=== PATIENT | male | born 1955 | race Caucasian/White ===

== ENCOUNTER 2025-04-28 08:31 | Emergency (ER) | payer MEDICARE, SELFPAY ==
--- OUTSIDE RECORDS SUMMARY | 2024-08-14 12:20 | XMS_ITS ---
Author Organization [facility] in [place] Address [address] [place] [address] Care Team Providers Care Vice President Compliance Name Role Phone Abebe Stewart MD Primary Care Provider Abebe Nazario [facility] [phone] Encounters Encounter Location Date Provider Diagnosis [facility] Nephrology [place] [address] [place] [address] 08/14/2024 Abebe Tovar Plan Of Treatment No Information Progress Notes * Alberto WALLER LDOB:[birth year] (69 yo M)Acc No.[id number]:08/14/2024 UNLOCKED PROGRESS NOTE Progress Note Patient: Alberto BUSTAMANTE Provider: Anthony Tovar MD :1955 A ge:69 Y S ex:Male Date:08/14/2024 Address:[address] [place], [place] [address] Pcp:Abebe Stewart MD Subjective: * Chief Complaints: * * Medical History: Objective: * Vitals: Assessment: Plan: * Treatment: * * Electronic signature of Abebe Tovar MD, [id number] on 04/28/2025 at 08:46 AM EDT Sign off status: Pending Visit Status: C ANC (Cancelled) * Provider: Anthony Tovar MD Date: 0 08/14/2024 Generated for Printi ng/Faxing/eTransmitting on: 0 04/28/2025 08:46 AM EDT
--- OUTSIDE RECORDS SUMMARY | 2024-11-09 10:15 | XMS_ITS | Continuity of Care Document ---
Author Organization [facility] Address [address] [place] [address] Phone Care Team Providers Care Engineering Program Manager Name Role Phone Guille Laguerre Jr, DO Unavailable Unavailabl e Allergies, Adverse Reactions, Alerts Substance Reaction Status Criticality lisinopril Cough(moderate) Active No Informati on Sulfa (Sulfonamide Antibiotics) Blister of skin AND/OR mucosa(severe) Active No Information Procedures Procedure Date OFFICE/OUTPATIENT VISIT, NEW OFFICE/OUTPATIENT VISIT, EST, [facility] Advance Directives Directive Yes / No Effective Date File Name No Information Encounters Encounter Description Practice Location Reason(s) For Visit Diagnoses Date Provider Providers Copied on Encounter OFFICE/OUTPAT IENT VISIT, [facility] , [address] [place], [address], [place] tel:[phone] VINNIE [place] diplopia (chief complaint) Presence of intraocular lensDiplopiaOther secondary cataract, bilateral Shade Han. [address] [place] [address], [id number] , [place]. tel:[phone] Referring Provider: Guille Jordan, [address] [place] [address], [id number] . tel:[phone] Family History Family Member Type Diagnosis Age At Onset Father Problem Diabetes mellitus Problem No family history of Macular degeneration Brother Problem Diabetes mellitus Problem No family history of Retinal disease Mother Problem Glaucoma Mother Problem Macular degeneration Payers Payer name Insurance type Covered alliance party ID Authoriza tion(s) [employer] Medicare [id number] Social History Type Description Quantity Date Captured Comments Alcohol Use Details Unknown Caffeine Use Details Unknown Tobacco Use Status Current non-smoker Smoking Status Never smoker Non-Smoking Tobacco Use Details : No Details Available : No Details Available Sex Male Chief Complaint And Reason For Visit From encounter dated '11/09/2024 14:15'. diplopia (chief complaint). Description: The 69 year old patient presents for evaluation of diplopia in the right eye. PT states that after he started a new medication; and that same day is when he had the episode. PT was driving when he noticed horizontal diplopia lasting 24 hours. . PT states that when he closed right eye it went away. PT also reports that this medication is not suppose to be taken with ASA, but had taken that day. PT reports that BP was 224/170, from a home machine. Most recent B/P was 130/78 2 days ago PT states that he has also noticed new onset of a large floater in right eye prior to diplopia episode. PT denies any pain but has had headaches recently. PT denies any flashes of light. New medication is for Alzheimer's; PT can not remember name PT currently not experiencing any diplopia Reason For Referral Reason For Referral No Information History Of Present Illness Encounter Date Complaint History Of Prese nt Illness diplopia The 69 year old patient presents for evaluation of diplopia in the right eye. PT states that after he started a new medication; and that same day is when he had the episode. PT was driving when he noticed horizontal diplopia lasting 24 hours. . PT states that when he closed right eye it went away. PT also reports that this medication is not suppose to be taken with ASA, but had taken that day. PT reports that BP was 224/170, from a home machine. Most recent B/P was 130/78 2 days ago PT states that he has also noticed new onset of a large floater in right eye prior to diplopia episode. PT denies any pain but has had headaches recently. PT denies any flashes of light. New medication is for Alzheimer's; PT can not remember name PT currently not experiencing any diplopia Functional Status Date Functional Assessmen t No Information Instructions Date Instruction Additional Infor mation Impression/Plan Assessments Type Assessment Date assessment Presence of intraocular lens Oct assessment Diplopia assessment Other secondary cataract, bilate ral Patient Care Teams Name Effective Dates (start - stop) Status Members No Information
--- OUTSIDE RECORDS SUMMARY | 2025-04-16 07:00 | XMS_ITS | Encounter Summary ---
Author Organization [facility] Address [address] [place] [address] Care Team Providers Care Downstream Biomanufacturing Technician Name Role Phone Abebe Stewart MD Primary Care Provider [phone] Abebe Tan MD Unavailable Encounter Details Date Type Department Care Team (Late st Contact Info) Description 04/16/2025 7:00 AM EDT Lab [facility] Kidney Transplant Draw Station [address] [place] [id number] Encounter for aftercare following kidney transplant; Transplanted kidney; Encounter for long-term (current) use of medications; Hypocalcemia; Hypokalemia Social History Tobacco Use Types Packs/Day Years Used Date Smoking Tobacco: Never Smokeless Tobacco: Never Alcohol Use Standard Drinks/Week Comments Yes 0 (1 standard drink = 0.6 oz pur e alcohol) rare [facility] Utilities Answer Date Recorded In the past 12 months has [facility] [place], gas, oil, or water [place] threatened to shut off services in your home? No 04/05/2025 Humiliation, Afraid, Rape, and Kick questionnair e Answer Date Recorded Within the last year, have y ou been afraid of your partner or ex-partner? No 04/05/2025 Within the last year, have y ou been humiliated or emotionally abused in other ways by your partner or ex-partner? No Within the last year, have y ou been kicked, hit, slapped, or otherwise physically hurt by your partner or ex-partner? No 04/05/2025 Within the last year, have y ou been raped or forced to have any kind of sexual activity by your partner or ex-partner? No 04/05/2025 Social Connection and Isolat ion Panel [NHANES] Answer Date Recorded In a typical week, how many times do you talk on the phone with family, friends, or neighbors? More than three times a week 04/05/2025 How often do you get togethe r with friends or relatives? More than three times a week 04/05/2025 How often do you attend chur ch or restoration services? Never 04/05/2025 Do you belong to any clubs o r organizations such as episcopalian groups, unions, fraternal or athletic groups, or school groups? No 04/05/2025 How often do you attend meet ings of the clubs or organizations you belong to? Never 04/05/2025 Are you , , di vorced, , never , or living with a partner? 04/05/2025 AUDIT-C Answer Date Recorded Q1: How often do you have a drink containing alcohol? Never 04/05/2025 Q2: How many drinks containi ng alcohol do you have on a typical day when you are drinking? Patient does not drink Q3: How often do you have si x or more drinks on one occasion? Never 04/05/2025 Overall Financial Resource Strain (CARDIA) Answe r Date Recorded How hard is it for you to pa y for the very basics like food, housing, medical care, and heating? Not hard at all 04/05/2025 PHQ-2 Answer Date Recorded Patient Health Questionnaire-2 Score 0 04/20/2025 [facility] of Occupat ional Health - Occupational Stress Questionnaire Answer Date Recorded Do you feel stress - tense, restless, nervous, or anxious, or unable to sleep at night because your mind is troubled all the time - these days? Only a little 04/05/2025 Transportation Answer Date Recorded In the past 12 months, has l ack of transportation kept you from medical appointments or from getting medications? No 10/2024 In the past 12 months, has l ack of transportation kept you from meetings, work, or from getting things needed for daily living? No 04/05/2025 Housing Stability Vital Sign Answer Sonu e Recorded In the last 12 months, was t here a time when you were not able to pay the mortgage or rent on time? No 04/05/2025 In the past 12 months, how m any times have you moved where you were living? 0 04/05/2025 At any time in the past 12 m [facility], were you homeless or living in a mcc (including now)? No 04/05/2025 Hunger Vital Sign Answer Date Recorded Within the past 12 months, y ou worried that your food would run out before you got the money to buy more. Never true 04/05/20 25 Within the past 12 months, t he food you bought just didn't last and you didn't have money to get more. Never true 04/05/2025 Sex and Gender Information Value Date Recorded Sex Assigned at Male 09/21/2024 6:43 AM EST Legal Sex Male 12:45 AM EDT Gender Identity Male 09/21/2024 7:43 AM EST Sexual Orientation Heterosexual or Straight 09/03 7:43 AM EST documented as of this encounter Functional Status documented as of this encounter Plan of Treatment Upcoming Encounters Date Type Department Care Team (Late st Contact Info) Description 04/30/2025 9:00 AM EDT Follow-Up [facility] Transplant [address] [place] [phone] [place] [address] 04/30/2025 9:15 AM EDT Appointment [facility] 2A [place] [address] 05/10/2025 1:00 PM EDT Procedure Visit [facility] Urology [address] [place] [phone] Abebe [place] [address] 05/10/2025 1:30 PM EDT Appointment [facility] 2A [place] [address] documented as of this encounter Procedures Procedure Name Priority Date/Time Associated Diagnosis Comments CBC WITH AUTO DIFFERENTIAL Routine 04/16/2025 7:45 AM EDT Encounter for aftercare following kidney transplant Transplanted kidney Encounter for long-term (current) use of medications TACROLIMUS LEVEL Routine 04/16/2025 7:45 AM EDT Encounter for aftercare following kidney transplant Transplanted kidney Encounter for long-term (current) use of medications VITAMIN D 25 HYDROXY Routine 04/16/2025 7:45 AM EDT Encounter for aftercare following kidney transplant Hypocalcemia Hypokalemia CBC AND DIFFERENTIAL Routine 04/16/2025 7:45 AM EDT Encounter for aftercare following kidney transplant Transplanted kidney Encounter for long-term (current) use of medications URIC ACID Routine 04/16/2025 7:45 AM EDT Encounter for aftercare following kidney transplant Transplanted kidney Encounter for long-term (current) use of medications PHOSPHORUS Routine 04/16/2025 7:45 AM EDT Encounter for aftercare following kidney transplant Transplanted kidney Encounter for long-term (current) use of medications MAGNESIUM Routine 04/16/2025 7:45 AM EDT Encounter for aftercare following kidney transplant Transplanted kidney Encounter for long-term (current) use of medications BILIRUBIN, DIRECT Routine 04/16/2025 7:4 5 AM EDT Encounter for aftercare following kidney transplant Transplanted kidney Encounter for long-term (current) use of medications COMPREHENSIVE METABOLIC PANEL Routine 04/16/2025 7:45 AM EDT Encounter for aftercare following kidney transplant Transplanted kidney Encounter for long-term (current) use of medications documented in this encounter Results * Bilirubin, direct (04/16/2025 7:45 AM EDT) Bilirubin, Direct 0.2 0 - 0.2 mg/dL 04/16/2025 9:16 AM EDT [facility] ([facility]) Blood Venous blood specimen / Unknown Venipuncture / Unknown 04/16/2025 7:45 AM EDT 04/16/2025 8:08 AM EDT us Grazyna Briseno [facility] LAB BLOOD ORDERABLES Final Result [facility] ([facility]) [address] [place] [address] * (ABNORMAL) CBC auto differential (04/16/2025 7:45 AM EDT) Auto WBC 11.41(H) 4.00 - 10.60 10*3/uL 04/16/2025 8:14 AM EDT [facility] ([facility]) RBC 2.53(L) 4.20 - 5.70 10*6/uL 04/16/2025 8:14 AM EDT [facility] ([facility]) Hemoglobin 8.0(L) 13.0 - 17.0 g/dL 04/16/2025 8:14 AM EDT [facility] ([facility]) Hematocrit 24.4(L) 39.0 - 50.0 % 04/16/2025 8:14 AM EDT [facility] ([facility]) MCV 96.4 82.0 - 98.0 fL 04/16/2025 8:14 AM EDT [facility] ([facility]) MCH 31.6 27.0 - 33.0 pg 04/16/2025 8:14 AM EDT [facility] ([facility]) MCHC 32.8 32.0 - 35.0 g/dL 04/16/2025 8:14 AM EDT [facility] ([facility]) RDW 16.6(H) 11.5 - 15.0 % 04/16/2025 8:14 AM EDT [facility] ([facility]) Neutrophils % 81.0(H) 40.0 - 72.0 % 04/16/2025 8:14 AM EDT [facility] ([facility]) Lymphocytes % 12.1(L) 20.0 - 45.0 % 04/16/2025 8:14 AM EDT [facility] ([facility]) Monocytes % 4.7(L) 5.0 - 12.0 % 04/16/2025 8:14 AM EDT [facility] ([facility]) Eosinophils % 0.8 0.0 - 6.0 % 04/16/2025 8:14 AM EDT [facility] ([facility]) Basophils % 0.6 0.0 - 1.0 % 04/16/2025 8:14 AM EDT [facility] ([facility]) Neutrophils Absolute 9.24(H) 1.60 - 7.60 10*3/uL 04/16/2025 8:14 AM EDT [facility] ([facility]) Lymphocytes Absolute 1.38 1.20 - 4.00 10*3/uL 04/16/2025 8:14 AM EDT [facility] ([facility]) Monocytes Absolute 0.54 0.10 - 1.00 10*3/uL 04/16/2025 8:14 AM EDT [facility] ([facility]) Eosinophils Absolute 0.09 0.00 - 0.50 10*3/uL 04/16/2025 8:14 AM EDT [facility] ([facility]) Basophils Absolute 0.07 0.00 - 0.20 10*3/uL 04/16/2025 8:14 AM EDT [facility] ([facility]) Platelets 152 150 - 400 10*3/uL 04/16/2025 8:14 AM EDT [facility] ([facility]) nRBC % 0.0 0 % 04/16/2025 8:14 AM EDT [facility] ([facility]) Immature Granulocytes % 0.8 0.0 - 1.0 % 04/16/2025 8:14 AM EDT [facility] ([facility]) Immature Granulocytes Absolute 0.09 0.00 - 0.20 10*3/uL 04/16/2025 8:14 AM EDT [facility] ([facility]) Blood Venous blood specimen / Unknown Venipuncture / Unknown 04/16/2025 7:45 AM EDT 04/16/2025 8:08 AM EDT us Grazyna Briseno [facility] LAB BLOOD ORDERABLES Final Result [facility] ([facility]) [address] [place] [id number] * (ABNORMAL) Vitamin D 25 hydroxy (04/16/2025 7:45 AM EDT) Pathologist [facility] Vit D, 25-Hydroxy 23.3(L) 30.0 - 80.0 ng/mL 04/16/2025 10:20 AM EDT [facility] ([facility]) Comment:>80.0 Toxicity possi ble Blood Venous blood specimen / Unknown Venipuncture / Unknown 04/16/2025 7:45 AM EDT 04/16/2025 8:08 AM EDT us Wendy Lomeli MD LAB BLOOD ORDERABLES Final Resul t Performing Organization Address City/[facility]/ZIP Co de Phone Number [facility] ([facility]) [address] [place] [id number] * (ABNORMAL) Tacrolimus level (04/16/2025 7:45 AM EDT) [facility] Tacrolimus Lvl 4.8(L) 5.0 - 20.0 ng/mL 04/16/2025 12:26 PM EDT [facility] ([facility]) Comment:The CM LABELLING MACHINE OPERATOR Tacrolimus assay is a delayed one-step immunoassay for the quantitative determination of tacrolimus in human whole blood using the chemiluminescent microparticle immunoassay (CMIA) technology with flexible assay protocols, referred to as Chemiflex. Blood Venous blood specimen / Unknown Venipuncture / Unknown 04/16/2025 7:45 AM EDT 04/16/2025 8:08 AM EDT us Grazyna Briseno CNP LAB BLOOD ORDERABLES Final Result [facility]) [address] [place] [id number] * Uric acid (04/16/2025 7:45 AM EDT) [facility] Uric Acid 7.6 4.4 - 7.6 mg/dL 04/16/2025 9:39 AM EDT [facility] ([facility]) Blood Venous blood specimen / Unknown Venipuncture / Unknown 04/16/2025 7:45 AM EDT 04/16/2025 8:08 AM EDT Grazyna Finn [facility] LAB BLOOD ORDERABLES Final Result [facility]) [address] [place] [address] * Phosphorus (04/16/2025 7:45 AM EDT) Phosphorus 3.6 2.5 - 5.0 mg/dL 04/16/2025 9:16 AM EDT [facility] ([facility]) Blood Venous blood specimen / Unknown Venipuncture / Unknown 04/16/2025 7:45 AM EDT 04/16/2025 8:08 AM EDT Grazyna Finn CNP LAB BLOOD ORDERABLES Final Result Performing Organization Address City/[facility]/ZIP Co de Phone Number [facility]) [address] [place] [address] * (ABNORMAL) Magnesium (04/16/2025 7:45 AM EDT) Magnesium 1.8(L) 1.9 - 2.7 mg/dL 04/16/2025 9:16 AM EDT [facility]) Blood Venous blood specimen / Unknown Venipuncture / Unknown 04/16/2025 7:45 AM EDT 04/16/2025 8:08 AM EDT Grazyna Finn CNP LAB BLOOD ORDERABLES Final Result [facility] ([facility]) [address] [place] [address] * (ABNORMAL) Comprehensive metabolic panel (04/16/2025 7:45 AM EDT) Sodium 138 136 - 145 mmol/L 04/16/2025 9:16 AM [facility] ([facility]) Potassium 3.5 3.5 - 5.1 mmol/L 04/16/2025 9:16 AM [facility] ([facility]) Chloride 108(H) 98 - 107 mmol/L 04/16/2025 9:16 AM [facility] ([facility]) CO2 22 21 - 31 mmol/L 04/16/2025 9:16 AM [facility] ([facility]) Anion Gap 12 7 - 20 mmol/L 04/16/2025 9:16 AM [facility] ([facility]) BUN 35(H) 7 - 25 mg/dL 04/16/2025 9:16 AM [facility] ([facility]) Creatinine 2.06(H) 0.70 - 1.30 mg/dL 04/16/2025 9:16 AM [facility] ([facility]) BUN/Creatinine Ratio 17.0 04/02 9:16 AM [facility] ([facility]) Glucose 122(H) 70 - 100 mg/dL 04/16/2025 9:16 AM [facility] ([facility]) Calcium 7.6(L) 8.6 - 10.3 mg/dL 04/16/2025 9:16 AM [facility] ([facility]) AST 16 13 - 39 U/L 04/16/2025 9:16 AM [facility] ([facility]) ALT (SGPT) 13 7 - 52 U/L 04/16/2025 9:16 AM [facility] ([facility]) Alkaline Phosphatase 81 34 - 104 U/L 04/16/2025 9:16 AM [facility] ([facility]) Total Protein 5.4(L) 6.0 - 8.3 g/dL 04/16/2025 9:16 AM [facility] ([facility]) Albumin 3.4(L) 3.5 - 5.7 g/dL 04/16/2025 9:16 AM [facility] ([facility]) Total Bilirubin 0.7 0.3 - 1.0 mg/dL 04/16/2025 9:16 AM EDT [facility] ([facility]) eGFR 34.0(L) >60.0 mL/min/1. 73m*2 04/16/2025 9:16 AM EDT [facility] ([facility]) Comment:The [facility] s estimated glomerular filtration rate (eGFR) will no longer include consideration of race in its calculation. The [employer] s eGFR Task Force developed new recommendations for the estimation of the glomerular filtration rate in the [place] They recommend immediate implementation of the new equation refit without the race variable in all laboratories because the calculation does not include race. In addition to not including race in the calculation and reporting, it included diversity in its development, and has acceptable performance characteristics and potential consequences that do not disproportionately affect any one group of individuals. Blood Venous blood specimen / Unknown Venipuncture / Unknown 04/16/2025 7:45 AM EDT 04/16/2025 8:08 AM EDT Grzayna Briseno [facility] LAB BLOOD ORDERABLES Final Result [facility] ([facility]) [address] [place] [address] documented in this encounter Visit Diagnoses Diagnosis Encounter for aftercare following kidney transplant Transplanted kidney Kidney replaced by transplant Encounter for long-term (current) use of medications Encounter for long-term (current) use of other medications Hypocalcemia Hypokalemia Hypopotassemia documented in this encounter Care Teams Downstream Biomanufacturing Technician Relationship Specialty Start Date End Date Abebe Stewart MD [address] [place] [address], [address] [place] [address] PCP - General Internal Medicine 09/21/24 Abebe Tan MD [address] [place] [id number] Consulting Physician Urology 04/07/25 documented as of this encounter
--- OUTSIDE RECORDS SUMMARY | 2025-04-16 09:00 | XMS_ITS | Encounter Summary ---
Author Organization [facility] Address [address] [place] [address] Care Team Providers Care Signal Engineer Name Role Phone Abebe Stewart MD Primary Care Provider [phone] Abebe Tan MD Unavailable Reason for Visit * Reason Comments Kidney Follow-up Encounter Details Date Type Department Care Team (Late st Contact Info) Description 04/16/2025 9:00 AM EDT Follow[facility] [address] [place] [address] Jayjay Robin MD [address] [place] [address] Immunosuppression (Primary Dx); Encounter for aftercare following kidney transplant; Primary hypertension; Benign prostatic hyperplasia with urinary retention; Diverticulitis; Anemia in chronic kidney disease, unspecified CKD stage; Hypophosphatemia; Bilateral lower extremity edema; Hypocalcemia; Hypomagnesemia; Diarrhea, unspecified type Social History Tobacco Use Types Packs/Day Years Used Date Smoking Tobacco: Never Smokeless Tobacco: Never Alcohol Use Standard Drinks/Week Comments Yes 0 (1 standard drink = 0.6 oz pur e alcohol) rare [facility] Utilities Answer Date Recorded In the past 12 months has e [place], gas, oil, or water [employer] threatened to shut off services in your [...] often do you attend chur ch or worship services? Never 04/05/2025 Do you belong to any clubs o r organizations such as yazdanism groups, unions, fraternal or athletic groups, or [...] Date Recorded Patient Health Questionnaire-2 Score 0 04/16/2025 [facility] of Occupat ional Health - Occupational Stress [...] any time in the past 12 m [facility], were you homeless or living in a intermediate (including now)? No 04/05/2025 Hunger Vital Sign [...] AM EST documented as of this encounter Last Filed Vital Signs Vital Sign Reading Time Taken Comments Blood Pressure 142/72 04/16/2025 8:08 AM EDT Pulse 66 04/16/2025 8:08 AM EDT Temperature 36.3 C (97.4 F) 04/16/2025 8:08 AM EDT Respiratory Rate 16 04/16/2025 8:08 AM EDT Oxygen Saturation - - Inhaled Oxygen Concentration - - Weight 88.1 kg (194 lb 4.8 oz) 04/16/2025 8:08 A M EDT Height 185.4 cm (6' 1 ) 04/16/2025 8:08 AM EDT Body Mass Index 25.63 04/16/2025 8:08 AM EDT documented in this encounter Functional Status documented as of this encounter Patient Instructions * Patient Instructions* Zahra Rhoades RN - 04/16/2025 9:00 AM EDT Do NOT follow instructions on Envarsus (tacrolimus XR) bottle. Always follow what the transplant clinic verbally tells you to take.Wait until notified by phone or voicemail of dosing instructions. Medication Changes Increase Cefopdomime to 200 mg twice a day Decrease K Phos (Sodium Phos Di) to once a day Start Bumex 2 mg daily Start taking Magnesium Glycinate 200 mg twice a day. Start Tums 2 tablets twice a day Start Finesteride 5 mg daily MEDICAL SERVICES MANAGER next week for self catheterization teaching. Labs every week Follow up labs and see Nephrology this Friday 04/[address] Robin on Monday 04/23. documented in this encounter Progress Notes * Jayjay Robin MD - 04/16/2025 9:00 AM EDT Images from the original note were not included. 04/16/2025 Chief Complaint Patient presents with Kidney Follow-up PCP: Abebe Stewart MD Txp Referring: Shereen Stephens Preferred Pharmacy: [facility] [id number] - [place], [place] - [address] [facility] [address] [facility] [id number] [facility] [place] - [address] [place] [address] [place] [address] [facility] [address] [facility] [place] [phone] [address] Organ: Kidney Subjective Visit Vitals BP 142/72 (BP Location: Left arm, Patient Position: Sitting) Pulse 66 Temp 36.3 ??C (97.4 ??F) (Oral) Resp 16 Ht 1.854 m (6' 1 ) Wt 88.1 kg (194 lb 4.8 oz) BMI 25.63 kg/m?? Smoking Status Never BSA 2.13 m?? Allergies[1] SHELLFISH AMLODIPINE Immunization History Administered Date(s) Administered Influenza, High Dose Seasonal, Preservative Free 04/06/2024 Influenza, High-dose Seasonal, Quadrivalent, Preservative Free 07/15/2023 Influenza, injectable, quadrivalent, preservative free 07/01/2018 Moderna 12 YR UP Vaccine BiValent Booster 10/03/2020, 10/31/2020 Moderna Covid-19 vaccine, 12&up 07/15/2023, 04/06/2024 Pfizer Covid-19 Vaccine, 12&up, Fall 2022-10/07/2024 Pneumococcal Conjugate PCV 13 08/27/2015 Pneumococcal Conjugate PCV 20 07/15/2023 Pneumococcal Polysaccharide PPV23 09/19/2010 RSV, Adult, Bivalent 09/24/2023 Zoster, Recombinant 07/15/2023, 09/24/2023 Problem List[2] Family History[3] Social History[4] Medical History[5] Surgical History[6] Travel Screening No screening recorded since 04/12/25 1253 Travel History Travel since 03/13/25 No documented travel since 03/13/25 Patient Health Questionnaire-9 Score: 0 HPI HPI Alberto Waller is a 69 y.o. male who had End-stage renal disease secondary to hypertensive nephrosclerosis who underwent donor Kidney transplant to the right iliac fossa on 03/31/2025 (Kidney). He had fair urine output postoperatively and did not require dialysis following transplant. Hedid not have delayed graft function. Patient not previously on dialysis. Patient [facility] for a follow-up visit. Patient reports making about 7657-2866 mL of urine per day. Drain has been removed. He was readmitted for diverticulitis and urinary retention, has a rashid catheter in place, and on oral antibiotics. Abdominal pain resolved. Review of Systems Constitutional: Negative for chills and fever. HENT: Negative for rhinorrhea and sore throat. Eyes: Negative for visual disturbance. Respiratory: Negative for cough and shortness of breath. Cardiovascular: Negative for chest pain, palpitations and leg swelling. Gastrointestinal: Positive for diarrhea. Negative for abdominal distention, abdominal pain, constipation, nausea and vomiting. Genitourinary: Negative for dysuria. Musculoskeletal: Negative for arthralgias. Skin: Negative for rash. Allergic/Immunologic: Positive for immunocompromised state. Neurological: Negative for dizziness and tremors. Hematological: Negative for adenopathy. Psychiatric/Behavioral: Negative for confusion. Objective Physical Exam Constitutional: Appearance: Normal appearance. HENT: Head: Normocephalic and atraumatic. Nose: Nose normal. Mouth/Throat: Mouth: Mucous membranes are moist. Eyes: Extraocular Movements: Extraocular movements intact. Cardiovascular: Rate and Rhythm: Normal rate and regular rhythm. Pulmonary: Effort: Pulmonary effort is normal. Abdominal: General: There is no distension. Palpations: Abdomen is soft. Tenderness: There is no abdominal tenderness. Comments: RLQ incision c/d/I, no cellulitis/hernia, rashid in place Musculoskeletal: Cervical back: Neck supple. Right lower leg: Edema present. Left lower leg: Edema present. Comments: B/l 1+/2+ pedal edema Skin: Coloration: Skin is not jaundiced. Findings: No rash. Neurological: Mental Status: He is alert and oriented to person, place, and time. Psychiatric: Mood and Affect: Mood normal. Lab Results Component Value Date CREATININE 2.06 (H) 04/16/2025 CREATININE (MG/DL) IN URINE 79.0 04/13/2025 SODIUM 138 04/16/2025 POTASSIUM 3.5 04/16/2025 CHLORIDE 108 (H) 04/16/2025 MAGNESIUM 1.8 (L) 04/16/2025 CALCIUM 7.6 (L) 04/16/2025 HEMATOCRIT 24.4 (L) 04/16/2025 HEMOGLOBIN 8.0 (L) 04/16/2025 HEMOGLOBIN A1C 5.1 04/13/2025 PLATELETS AUTO 152 04/16/2025 TACROLIMUS LVL 21.4 (H) 04/13/2025 Donor ABO: O Donor Labs: CMV: Negative HBC: Negative HCV: Negative Assessment/Plan 69 year old male, 16 days status post donor renal transplant. Patient was not on dialysis prior to transplant. Patient did not have delayed graft function and did not require dialysis post transplant. Admission creatinine was 7.28 and discharge creatinine was 5.12. Today's creatinine 2.06 from 2.1. Admitted 04/05/2025 for GI Bleed/ diverticulitis/ urinary retention: Patient presented with severe abdominal pain and blood per rectum. Initial evaluation reveals a hypertensive, but albeit hemodynamically stable and afebrile patient. Fecal occult blood was positive. Patient was seen resting in bed. Patient states that his pain started as soon as he went home. Pain p rogressively got worse. He started making less urine and noted dark stool and blood in his stool. Denies any chest pain, shortness of breath, difficulty breathing, nausea, vomiting, or subjective fevers or chills. Rashid catheter was placed due to urinary retention. Patient had CT that showed some signs of diverticulitis without abscess formation. Patient was started on ciprofloxacin and flagyl. Myfortic was reduced. Patient did have blood bowel movements for the first couple days of admission. Patient received bowel prep for planned colonoscopy on 04/09. It was later decided to not do colonoscopy given, bloody bowel movements had resolved and hemoglobin remained stable, in the setting of diverticulitis. Patient did develop pulmonary congestion and cough. Was given nebulizers and lasix and showed improvement. Rashid catheter was removed on 04/09 and patient was unable to void. Rashid catheter was replaced on 04/10 due to urinary retention with plans to keep in place until Monday 04/16 at minimum. Leukocytosis improved. Final dose of simulect was held due to infection concerns. Patient was transitioned fromcipro to cephalosporins due to qt prolongation. Patient was discharged on flagyl and cefpodoxime for a total of 14 days. Immunosuppression at discharge: Envarsus 4mg daily, myfortic 360mg twice daily, and prednisone 10mg daily. Patient discharged home in good/stable condition. He will follow up with transplant clinic on 04/13 and continue to follow closely. Patient to have colonoscopy in 6-8 weeks. 04/05/2025 CT abdomen pelvis wo contrast: IMPRESSION: 1. There is fluid surrounding the bladder in the extracranial space of Retzius. Bladder injury cannot be excluded and clinical correlation is advised. 2. Unremarkable noncontrast CT appearance of the right renal transplant with only trace fluid/blood products in the perinephric space. 3. Nonspecific small volume free intraperitoneal fluid. 04/10/2025 US transplanted kidney: IMPRESSION: *No collecting system dilatation. *Simple appearing peritransplant fluid collection measuring 3.0 x 1.3 x 7.4 cm is slightly larger than on previous study likely representing postoperative seroma or hematoma. This is not exerting mass effect upon the underlying transplant kidney. *Small simple renal cyst. BK: 04/03/2025 not detected CMV: not tested DSA: not tested Prospera: not tested Rashid catheter removed on post op day 3. Immunosuppression: For induction patient received simulect, received only one dose, second one was not given due to diverticulitis. For maintenance immunosuppression: Patient was taking Envarsus 4mg daily, held currently since Wednesday (04/13) because of elevated levels. TAC level today is 4.8. Patient told to start 2 mg daily starting tomorrow. Myfortic 360mg BID (lower dose due to diverticulitis and diarrhea), prednisone 10mg daily Immunoprophylaxis: Nystatin 5mL four times daily, bactrim DS MWF, valcyte 450mg QAM CMV status is donor negative / recipient negative EBV status is donor positive/ recipient positive Diverticulitis: Vantin-cefpodoxime 400mg QAM for 14 days, increase dose to bid due to improved creatinine clearance. flagyl 500mg BID for 14 days Pain improved Plan for colonoscopy in 6 weeks per GI Hypertension: coreg 25mg BID, hydralazine 75mg TID, blood pressure is okay. GERD: Protonix 40mg BID due to GI bleed recently, no bleeding currently, does not have reflux symptoms currently Hypophosphatemia: K phos neutral, decrease from 2 to 1 tablets BID Hypomagnesemia: Start Mag glycinate 200 mg bid Hypocalcemia: Tums 2 tabs bid Hypoalbuminemia/ LE edema: Increase protein in diet, start Bumex 2 mg daily Diarrhea : Stopped Colace 10mg BID Glycolax 17g QAM- 14 days, two Bms daily. BPH/ urinary retention: Flomax 0.8mg QAM, rashid catheter in place, went into retention twice. StartFinasteride 5 mg daily. Plan for void trial and CIC teaching next week, if fails, will need TURP. Discussed with Dr. Tan. Drain: Removed 04/07/2025 Stent: Remove in 2 weeks. Follow up: Wednesday with Nephrology, see me next Wednesday. aJyjay Robin MD [1] Allergies Allergen Reactions Shellfish Derived Nausea And Vomiting Vomiting Amlodipine Swelling Leg edema [2] Patient Active Problem List Diagnosis Hypertensive disorder Diverticular disease Vitamin D deficiency Proteinuria Secondary hyperparathyroidism of renal origin Anemia in chronic kidney disease (CKD) History of DVT (deep vein thrombosis) Renal cyst, left Gout Recurrent sinusitis NSAID long-term use CKD (chronic kidney disease) stage 5, GFR less than 15 ml/min (CMS/HCC) Lung nodule seen on imaging study H/O splenectomy Kidney transplanted GI bleed Diverticulitis Encounter for aftercare following kidney transplant [3] Family History Problem Relation Name Age of Onset Heart disease Father Had pacemaker [4] Social History Tobacco Use Smoking status: Never Smokeless tobacco: Never Vaping Use Vaping status: Never Used Substance Use Topics Alcohol use: Yes Comment: rare Drug use: Never [5] Past Medical History: Diagnosis Date Anemia in chronic kidney disease (CKD) CKD (chronic kidney disease) stage 5, GFR less than 15 ml/min (CMS/HCC) Diverticular disease s/p colectomy 2015 Gout History of DVT (deep vein thrombosis) proximal vein left leg (from distal calf to groin, 07/2021, was to be on lifelong warfarin but stopped after 05/2022 GI bleed) Hypertensive disorder Lung nodule seen on imaging study NSAID long-term use h/o Proteinuria Recurrent sinusitis Recurrent sinusitis Renal cyst, left Secondary hyperparathyroidism of renal origin Vitamin D deficiency [6] Past Surgical History: Procedure Laterality Date COLECTOMY PARTIAL / TOTAL 2015 diverticular disease COLONOSCOPY 10/05/2022 Diverticulosis in the sigmoid colon & descending colon. - Three 2-5 mm polyps at the recto-sigmoid colon & at the splenic flexure, removed w a hot snare. Resected & retrieved. (1. Splenicflexure polyp, bx: Tubular adenoma. 2. Splenic flexure polyp, bx: Tubular adenoma. 3. Rectosigmoid colon polyps, bx:Tubular adenomas.- The examination was otherwise normal on direct and retroflexion v iews. COLONOSCOPY 2016 attempted - unable to get past 40 cm SPLENECTOMY, TOTAL documented in this encounter Plan of Treatment Upcoming Encounters Date Type Department Care Team (Late st Contact Info) Description 04/30/2025 9:00 AM EDT Follow-Up [facility] [address] [place] [phone] Jayjay Robin MD [address] [place] [phone] 04/30/2025 9:15 AM EDT Appointment [facility] [address] [place] [phone] 05/10/2025 1:00 PM EDT Procedure Visit [facility] U[facility] [address] [place] [phone] Abebe Tan MD [address] [place] [phone] 05/10/2025 1:30 PM EDT Appointment [facility] [address] [place] [phone] documented as of this encounter Procedures Procedure Name Priority Date/Time Associated Diagnosis Comments URINALYSIS MICROSCOPIC WITH REFLEX CULTURE Routine 04/16/2025 8:46 AM EDT Encounter for aftercare following kidney transplant URINALYSIS WITH REFLEX CULTURE Routine 04/16/2025 8:46 AM EDT Encounter for aftercare following kidney transplant PROTEIN, URINE, RANDOM Routine 04/16/2025 8:46 AM EDT Encounter for aftercare following kidney transplant CREATININE, URINE, RANDOM Routine 04/16/2025 8:46 AM EDT Encounter for aftercare following kidney transplant URINE CULTURE Routine 04/16/2025 8:46 AM EDT Encounter for aftercare following kidney transplant documented in this encounter Results * Urine culture, routine (04/16/2025 8:46 AM EDT) Urine Culture No growth at 48 hours JES 04/18/2025 7:59 AM EDT [facility] ([facility]) Urine Urine specimen obtained by clean catch procedure / Unknown Non-blood Collection / Unknown 04/16/2025 8:46 AM EDT 04/16/2025 10:19 AM EDT Jayjay Robin MD LAB MICROBIOLOGY - GENERAL ORDER TAMEKA Final Result Performing Organization Address City/[facility]/ZIP Co de Phone Number [facility]) [address] [place] [address] * (ABNORMAL) Urinalysis microscopic with reflex culture (04/16/2025 8:46 AM EDT) RBC, Urine >20(A) None Seen, 0-2 /HPF 04/16/2025 10:54 AM EDT [facility] ([facility]) WBC, Urine 3-5(A) None Seen, 0-2 /HPF 04/16/2025 10:54 AM EDT [facility]) Squamous Epithelial, Urine None Seen None Seen, Occasional , Few /LPF 04/16/2025 10:54 AM EDT [facility] ([facility]) Urine Urine specimen obtained by clean catch procedure / Unknown Non-blood Collection / Unknown 04/16/2025 8:46 AM EDT 04/16/2025 10:19 AM EDT us Jayjay Robin MD LAB URINE ORDERABLES Final Resul t [facility]) [address] [place] [address] * (ABNORMAL) Urinalysis with reflex culture (04/16/2025 8:46 AM EDT) Color, Urine Light-Yellow Colorless, Yellow, Light-Yellow 04/16/2025 10:54 AM EDT [facility] ([facility]) Clarity, Urine Clear Clear 04/16/2025 10:54 AM EDT [facility]) pH, Urine 6.5 5.0 - 8.0 pH 04/16/2025 10:54 AM EDT [facility]) Leukocytes, Urine Trace(A) Negative 04/16/2025 10:54 AM EDT [facility]) Nitrite, Urine Negative Negative 04/16/2025 10:54 AM EDT [facility]) Protein, Urine 30(A) Negative mg/dL 04/16/2025 10:54 AM EDT [facility]) Glucose, Urine Normal Normal mg/dL 04/16/2025 10:54 AM EDT [facility] ([facility]) Bilirubin, Urine Negative Negative 04/16/2025 10:54 AM EDT [facility]) Specific Drayden, Urine 1.009(L) 1.010 - 1.030 04/16/2025 10:54 AM EDT [facility]) Ketones, Urine Negative Negative mg/dL 04/16/2025 10:54 AM EDT [facility]) Blood, Urine Trace(A) Negative 04/16/2025 10:54 AM EDT [facility]) Urobilinogen, Urine Normal Normal mg/dL 04/16/2025 10:54 AM EDT [facility]) Urine Urine specimen obtained by clean catch procedure / Unknown Non-blood Collection / Unknown 04/16/2025 8:46 AM EDT 04/16/2025 10:19 AM EDT us Jayjay Robin MD LAB URINE ORDERABLES Final Resul t [facility] ([facility]) [address] [place] [address] * Protein, urine, random (04/16/2025 8:46 AM EDT) Protein, Ur 57.2 mg/dL 04/16/2025 11:36 AM EDT [facility] ([facility]) Comment:There are no establi shed reference values for random urine specimens. Urine Urine specimen obtained by clean catch procedure / Unknown Non-blood Collection / Unknown 04/16/2025 8:46 AM EDT 04/16/2025 10:19 AM EDT Jayjay Robin MD LAB URINE ORDERABLES Final Resul t [facility] ([facility]) [address] [place] [address] * Creatinine, urine, random (04/16/2025 8:46 AM EDT) Creatinine, Ur 48.0 26 - 299 mg/dL 04/16/2025 11:36 AM EDT [facility]) Urine Urine specimen obtained by clean catch procedure / Unknown Non-blood Collection / Unknown 04/16/2025 8:46 AM EDT 04/16/2025 10:19 AM EDT Jayjay Robin MD LAB URINE ORDERABLES Final Resul t Performing Organization Address City/[facility]/ZIP Co de Phone Number [facility]) [address] [place], [place] [id number] documented in this encounter Visit Diagnoses Diagnosis Immunosuppression- Primary Encounter for aftercare following kidney transplant Primary hypertension Unspecified essential hypertension Benign prostatic hyperplasia with urinary retention Diverticulitis Diverticulitis of colon (without mention of hemorrhage) Anemia in chronic kidney disease, unspecified CKD stage Hypophosphatemia Disorders of phosphorus metabolism Bilateral lower extremity edema Hypocalcemia Hypomagnesemia Disorders of magnesium metabolism Diarrhea, unspecified type documented in this encounter Care Teams Signal Engineer Relationship Specialty Start Date End Date Abebe Stewart MD [address] [place] [address], [address] [place] [address] PCP - General Internal Medicine 09/21/24 Abebe Tan MD [address] [facility] [place] [phone] Consulting Physician Urology 04/07/25 documented as of this encounter
--- OUTSIDE RECORDS SUMMARY | 2025-04-20 07:01 | XMS_ITS | Encounter Summary ---
Author Organization [facility] Address [address] [address] Care Team Providers Care Director Enterprise Sales Name Role Phone Abebe Stewart MD Primary Care Provider [phone] Abbee Tan MD Unavailable Reason for Visit * Reason Comments Anemia * Episode Based Medications (Routine) - Authorized Specialty Diagnoses / Procedures Referred By Contac t Referred To Contact Diagnoses Anemia in chronic kidney disease, unspecified CKD stage Encounter for aftercare following kidney transplant Kidney transplanted Jayjay Robin MD [address] [place] [address] Phone: tel: fax: Jayjay Robin MD [address] [place] [address] Phone: tel: fax: Referral ID Status Reason Start Date Expiration Date V isits Requested Visits Authorized [id number] Authorized 04/16/2025 04/16/2026 1 53 Encounter Details Date Type Department Care Team (Latest Contact Info) Description 04/20/2025 7:01 AM EDT - 04/20/2025 11:59 PM EDT Hospital Encounter [facility] 2A Infusion [address] [place] [address] Kidney transplanted (Primary Dx); Anemia in chronic kidney disease, unspecified CKD stage; Encounter for aftercare following kidney transplant Discharge Disposition: Home or Self Care () Social History Tobacco Use Types Packs/Day Years Used Date Smoking Tobacco: Never Smokeless Tobacco: Never Alcohol Use Standard Drinks/Week Comments Yes 0 (1 standard drink = 0.6 oz pur e alcohol) rare [facility] Utilities Answer Date Recorded In the past 12 months has e electric, gas, oil, or water company threatened to shut off services in your [...] week 04/05/2025 How often do you attend [facility] or confucianist services? Never 04/05/2025 Do you belong to any clubs o r organizations such as moravian groups, unions, fraternal or athletic groups, or [...] Recorded Patient Health Questionnaire-2 Score 0 04/20/2025 [facility] of Occupat ional [facility] - Occupational Stress Questionnaire Answer Date [...] were you homeless or living in a fpc (including now)? No 04/05/2025 Hunger Vital Sign [...] Functional Status documented as of this encounter Medications at Time of Discharge bumetanide (Bumex) 1 mg tabletIndications: Encounter for aftercare following kidney transplant,Barry al lower extremity edema Take 1 tablet (1 mg) by mouth in the morning. 30 tablet 04/16/2025 carvedilol (Coreg) 25 mg tablet 25 mg with breakfast and with evening meal. 05/23/2024 finasteride (Proscar) 5 mg tabletIndications: Benign prostatic hyperplasia with urinary retention Take 1 tablet (5 mg) by mouth in the morning. Do not crush, chew, or split. 30 tablet 11 04/16/2025 hydrALAZINE (Apresoline) 100 mg tabletIndications: Primary hypertension Take 1 tablet (100 mg) by mouth three times daily. 90 tablet 11 04/20/2025 mycophenolate (Myfortic) 180 mg EC tabletIndications: Immunosuppressive management encounter following kidney transplant Take 4 tablets (720 mg) by mouth two times daily. 240 tablet 11 04/13/2025 nystatin (Mycostatin) 100,000 unit/mL suspensionIndicati ons:Encounter for aftercare following kidney transplant Take 5 mL (500,000 Units) by mouth four times daily. Swish and swallow 600 mL 4 04/13/2025 sod phos di, mono-K phos mono (K Phos Neutral) tabletIndications: Encounter for aftercare following kidney transplant,Hypopho sphatemia Take 1 tablet by mouth two times daily. 04/16/2025 sulfamethoxazole-t rimethoprim (Bactrim DS) 800-160 mg tabletIndications: Immunosuppressive management encounter following kidney transplant Take 1 tablet by mouth 3 (three) times a week. On Wednesday, Wednesday, and Wednesday 12 tablet 04/13/2025 tacrolimus ER (Envarsus XR) 0.75 mg tablet ERIndications:Immu nosuppressive management encounter following kidney transplant Take 2 tablets (1.5 mg) by mouth in the morning. Script total 8.5 mg daily 60 tablet 04/13/2025 tacrolimus ER (Envarsus XR) 1 mg tablet ERIndications:Immu nosuppressive management encounter following kidney transplant Take 3 tablets (3 mg) by mouth in the morning. Script total 8.5 mg daily 90 tablet 04/13/2025 tacrolimus ER (Envarsus XR) 4 mg tablet ERIndications:Immu nosuppressive management encounter following kidney transplant Take 1 tablet (4 mg) by mouth in the morning. Script total 8.5 mg daily 30 tablet 04/13/2025 tamsulosin (Flomax) 0.4 mg 24 hr capsuleIndications :Urinary retention Take 2 capsules (0.8 mg) by mouth in the morning. 60 capsule 04/12/2025 5 valGANciclovir (Valcyte) 450 mg tabletIndications: Immunosuppressive management encounter following kidney transplant Take 1 tablet (450 mg) by mouth in the morning. As directed. 30 tablet 1 04/13/2025 metroNIDAZOLE (Flagyl) 500 mg tabletIndications: Diverticulitis Take 1 tablet (500 mg) by mouth every 12 (twelve) hours for 18 doses. 18 tablet 04/11/2025 5 calcium carbonate (Tums) 200 mg calcium (500 mg) chewable tabletIndications: Encounter for aftercare following kidney transplant,Hypocal cemia Chew 2 tablets (1,000 mg) two times daily. Without food 120 tablet 11 04/16/2025 5 magnesium glycinate 100 mg magnesium capsuleIndications :Hypomagnesemia Take 3 capsules (300 mg) by mouth two times daily. 180 capsule 11 04/20/2025 5 pantoprazole (ProtoNix) 40 mg EC tabletIndications: Abdominal pain, unspecified abdominal location Take 1 tablet (40 mg) by mouth before breakfast and before evening meal. Do not crush, chew, or split. 60 tablet 04/11/2025 5 predniSONE (Deltasone) 10 mg tabletIndications: Immunosuppressive management encounter following kidney transplant Take 1 tablet (10 mg) by mouth in the morning. 30 tablet 11 04/13/2025 5 documented as of this encounter Miscellaneous Notes * Addendum Note - Alisa Peterson RN - 04/20/2025 8:30 AM EDTEncounter addended by: Alisa Peterson RN on: 04/20/2025 3:44 PM Actions taken: Therapy plan modified documented in this encounter Plan of Treatment Upcoming Encounters Date Type Department Care Team (Late st Contact Info) Description 04/30/2025 9:00 AM EDT Follow-Up [facility] Transplant [address] [place] [address] Jayjay Robin MD [address] [place] [address] 04/30/2025 9:15 AM EDT Appointment [facility] [address] [address] 05/10/2025 1:00 PM EDT Procedure Visit [facility] [place] [place] [address] Abebe Tan [place] [address] 05/10/2025 1:30 PM EDT Appointment [facility] [address] [address] documented as of this encounter Visit Diagnoses Diagnosis Kidney transplanted- Primary Kidney replaced by transplant Anemia in chronic kidney disease, unspecified CKD stage Encounter for aftercare following kidney transplant documented in this encounter Administered Medications Inactive Administered Medications - up to 3 most recent administrations Medication Order MAR Action Action Date Dose Rate Site epoetin steve-epbx (Retacrit) injection (albumin free) 10,000 Units 10,000 Units, subcutaneous, Once, On Wed04/20/25 at 0745, For 1 dose, Indications: anemiaIndications:anem ia Given 04/20/2025 11:16 AM EDT 10,000 Units Right Upper Arm (Back) documented in this encounter Care Teams Director Enterprise Sales Relationship Specialty Start Date End Date Abebe Stewart MD [address] [place] [address], [address] [place] [address] PCP - General Internal Medicine 09/21/24 Abebe Tan MD [address] [place] [address] Consulting Physician Urology 04/07/25 documented as of this encounter
--- OUTSIDE RECORDS SUMMARY | 2025-04-20 07:45 | XMS_ITS | Encounter Summary ---
Author Organization [facility] Address [address] [place] [address] Care Team Providers Care Pewter Fabricator Name Role Phone Abebe Stewart MD Primary Care Provider [phone] Abebe Tan MD Unavailable Encounter Details Date Type Department Care Team (Late st Contact Info) Description 04/20/2025 7:45 AM EDT Office Visit [facility] Kidney Transplant Draw Station [address] [place] [id number] Encounter for aftercare following kidney transplant; Transplanted kidney; Encounter for long-term (current) use of medications Social History Tobacco Use Types Packs/Day Years Used Date Smoking Tobacco: Never Smokeless Tobacco: Never Alcohol Use Standard Drinks/Week Comments Yes 0 (1 standard drink = 0.6 oz pur e alcohol) rare [facility] Utilities Answer Date Recorded In the past 12 months has [employer], gas, oil, or water [employer] threatened to shut off services in your [...] often do you attend chur ch or christian services? Never 04/05/2025 Do you belong to any clubs o r organizations such as anglican groups, unions, fraternal or athletic groups, or [...] Date Recorded Patient Health Questionnaire-2 Score 0 04/23/2025 [facility] of Occupat ional Health - Occupational Stress [...] any time in the past 12 m [facility], were you homeless or living in a penitentiary (including now)? No 04/05/2025 Hunger Vital Sign [...] Info) Description 04/30/2025 9:00 AM EDT Follow-Up [facility] Transplant [address] [place] [id number] Jayjay Robin MD [address] [place] [address] 04/30/2025 9:15 AM EDT Appointment [facility] 2A Infusion [address] [place] [address] 05/10/2025 1:00 PM EDT Procedure Visit [facility] Urology [address] [place] [phone] Abebe Tan MD [address] [place] [address] 05/10/2025 1:30 PM EDT Appointment [facility] 2A [place] [address] documented as of this encounter Procedures Procedure Name Priority Date/Time Associated Diagnosis Comments CBC WITH AUTO DIFFERENTIAL Routine 04/20/2025 7:15 AM EDT Encounter for aftercare following kidney transplant Transplanted kidney Encounter for long-term (current) use of medications TACROLIMUS LEVEL Routine 04/20/2025 7:15 AM EDT Encounter for aftercare following kidney transplant Transplanted kidney Encounter for long-term (current) use of medications CBC AND DIFFERENTIAL Routine 04/20/2025 7:15 AM EDT Encounter for aftercare following kidney transplant Transplanted kidney Encounter for long-term (current) use of medications URIC ACID Routine 04/20/2025 7:15 AM EDT Encounter for aftercare following kidney transplant Transplanted kidney Encounter for long-term (current) use of medications PHOSPHORUS Routine 04/20/2025 7:15 AM EDT Encounter for aftercare following kidney transplant Transplanted kidney Encounter for long-term (current) use of medications MAGNESIUM Routine 04/20/2025 7:15 AM EDT Encounter for aftercare following kidney transplant Transplanted kidney Encounter for long-term (current) use of medications BILIRUBIN, DIRECT Routine 04/20/2025 7:1 5 AM EDT Encounter for aftercare following kidney transplant Transplanted kidney Encounter for long-term (current) use of medications COMPREHENSIVE METABOLIC PANEL Routine 04/20/2025 7:15 AM EDT Encounter for aftercare following kidney transplant Transplanted kidney Encounter for long-term (current) use of medications documented in this encounter Results * Bilirubin, direct (04/20/2025 7:15 AM EDT) Bilirubin, Direct 0.2 0 - 0.2 mg/dL 04/20/2025 8:06 AM EDT [facility] ([facility]) Blood Venous blood specimen / Unknown Venipuncture / Unknown 04/20/2025 7:15 AM EDT 04/20/2025 7:26 AM EDT Grazyna Briseno MONOGRAM OPERATOR LAB BLOOD ORDERABLES Final Result [facility] ([facility]) [address] [place] [address] * (ABNORMAL) CBC auto differential (04/20/2025 7:15 AM EDT) Auto WBC 8.39 4.00 - 10.60 10*3/uL 04/20/2025 7:51 AM EDT [facility] ([facility]) RBC 2.54(L) 4.20 - 5.70 10*6/uL 04/20/2025 7:51 AM EDT [facility] ([facility]) Hemoglobin 8.1(L) 13.0 - 17.0 g/dL 04/20/2025 7:51 AM EDT [facility] ([facility]) Hematocrit 25.1(L) 39.0 - 50.0 % 04/20/2025 7:51 AM EDT [facility] ([facility]) MCV 98.8(H) 82.0 - 98.0 fL 04/20/2025 7:51 AM EDT [facility] ([facility]) MCH 31.9 27.0 - 33.0 pg 04/20/2025 7:51 AM EDT [facility] ([facility]) MCHC 32.3 32.0 - 35.0 g/dL 04/20/2025 7:51 AM EDT [facility] ([facility]) RDW 17.8(H) 11.5 - 15.0 % 04/20/2025 7:51 AM EDT [facility] ([facility]) Neutrophils % 75.4(H) 40.0 - 72.0 % 04/20/2025 7:51 AM EDT [facility] ([facility]) Lymphocytes % 16.7(L) 20.0 - 45.0 % 04/20/2025 7:51 AM EDT [facility] ([facility]) Monocytes % 5.4 5.0 - 12.0 % 04/20/2025 7:51 AM EDT [facility] ([facility]) Eosinophils % 1.2 0.0 - 6.0 % 04/20/2025 7:51 AM EDT [facility] ([facility]) Basophils % 0.8 0.0 - 1.0 % 04/20/2025 7:51 AM EDT [facility] ([facility]) Neutrophils Absolute 6.33 1.60 - 7.60 10*3/uL 04/20/2025 7:51 AM EDT [facility] ([facility]) Lymphocytes Absolute 1.40 1.20 - 4.00 10*3/uL 04/20/2025 7:51 AM EDT [facility] ([facility]) Monocytes Absolute 0.45 0.10 - 1.00 10*3/uL 04/20/2025 7:51 AM EDT [facility] ([facility]) Eosinophils Absolute 0.10 0.00 - 0.50 10*3/uL 04/20/2025 7:51 AM EDT [facility] ([facility]) Basophils Absolute 0.07 0.00 - 0.20 10*3/uL 04/20/2025 7:51 AM EDT [facility] ([facility]) Platelets 215 150 - 400 10*3/uL 04/20/2025 7:51 AM EDT [facility] ([facility]) nRBC % 0.0 0 % 04/20/2025 7:51 AM EDT [facility] ([facility]) Immature Granulocytes % 0.5 0.0 - 1.0 % 04/20/2025 7:51 AM EDT [facility] ([facility]) Immature Granulocytes Absolute 0.04 0.00 - 0.20 10*3/uL 04/20/2025 7:51 AM EDT [facility] ([facility]) Blood Venous blood specimen / Unknown Venipuncture / Unknown 04/20/2025 7:15 AM EDT 04/20/2025 7:27 AM EDT us Grazyan Briseno MONOGRAM OPERATOR LAB BLOOD ORDERABLES Final Result [facility] ([facility]) [address] [place] [address] * (ABNORMAL) Tacrolimus level (04/20/2025 7:15 AM EDT) Tacrolimus Lvl 3.9(L) 5.0 - 20.0 ng/mL 04/20/2025 12:54 PM EDT [facility]) Comment:The CM RETAIL ATTENDANT Tacrolimus assay is a delayed one-step immunoassay for the quantitative determination of tacrolimus in human whole blood using the chemiluminescent microparticle immunoassay (CMIA) technology with flexible assay protocols, referred to as Chemiflex. Blood Venous blood specimen / Unknown Venipuncture / Unknown 04/20/2025 7:15 AM EDT 04/20/2025 7:27 AM EDT [facility] BLOOD ORDERABLES Final Result [facility]) [address] [place] [id number] * Uric acid (04/20/2025 7:15 AM EDT) Uric Acid 7.4 4.4 - 7.6 mg/dL 04/20/2025 8:43 AM EDT [facility] ([facility]) Blood Venous blood specimen / Unknown Venipuncture / Unknown 04/20/2025 7:15 AM EDT 04/20/2025 7:26 AM EDT [facility] BLOOD ORDERABLES Final Result [facility]) [address] [place] [address] * Phosphorus (04/20/2025 7:15 AM EDT) Phosphorus 2.7 2.5 - 5.0 mg/dL 04/20/2025 8:06 AM EDT [facility]) Blood Venous blood specimen / Unknown Venipuncture / Unknown 04/20/2025 7:15 AM EDT 04/20/2025 7:26 AM EDT Grazyna [facility] LAB BLOOD ORDERABLES Final Result Performing Organization Address City/[facility]/ZIP Co de Phone Number [facility] ([facility]) [address] [place] [address] * (ABNORMAL) Magnesium (04/20/2025 7:15 AM EDT) Magnesium 1.6(L) 1.9 - 2.7 mg/dL 04/20/2025 8:06 AM EDT [facility] ([facility]) Blood Venous blood specimen / Unknown Venipuncture / Unknown 04/20/2025 7:15 AM EDT 04/20/2025 7:26 AM EDT Grazyna Briseno [facility] BLOOD ORDERABLES Final Result Performing Organization Address [facility] Co de Phone Number [facility] ([facility]) [address] [place] [address] * (ABNORMAL) Comprehensive metabolic panel (04/20/2025 7:15 AM EDT) Sodium 142 136 - 145 mmol/L 04/20/2025 8:06 AM EDT [facility] ([facility]) Potassium 3.6 3.5 - 5.1 mmol/L 04/20/2025 8:06 AM EDT [facility] ([facility]) Chloride 110(H) 98 - 107 mmol/L 04/20/2025 8:06 AM EDT [facility] ([facility]) CO2 26 21 - 31 mmol/L 04/20/2025 8:06 AM EDT [facility] ([facility]) Anion Gap 10 7 - 20 mmol/L 04/20/2025 8:06 AM EDT [facility] ([facility]) BUN 26(H) 7 - 25 mg/dL 04/20/2025 8:06 AM EDT [facility] ([facility]) Creatinine 1.75(H) 0.70 - 1.30 mg/dL 04/20/2025 8:06 AM EDT [facility] ([facility]) BUN/Creatinine Ratio 14.9 04/02 8:06 AM EDT [facility] ([facility]) Glucose 90 70 - 100 mg/dL 04/20/2025 8:06 AM T [facility] ([facility]) Calcium 7.9(L) 8.6 - 10.3 mg/dL 04/20/2025 8:06 AM [facility] ([facility]) AST 12(L) 13 - 39 U/L 04/20/2025 8:06 AM [facility] ([facility]) ALT (SGPT) 9 7 - 52 U/L 04/20/2025 8:06 AM [facility] ([facility]) Alkaline Phosphatase 79 34 - 104 U/L 04/20/2025 8:06 AM [facility] ([facility]) Total Protein 5.3(L) 6.0 - 8.3 g/dL 04/20/2025 8:06 AM [facility] ([facility]) Albumin 3.3(L) 3.5 - 5.7 g/dL 04/20/2025 8:06 AM [facility] ([facility]) Total Bilirubin 0.7 0.3 - 1.0 mg/dL 04/20/2025 8:06 AM [facility] ([facility]) eGFR 41.4(L) >60.0 mL/min/1. 73m*2 04/20/2025 8:06 AM [facility] ([facility]) Comment:[facility] s estimated glomerular filtration rate (eGFR) [...] blood specimen / Unknown Venipuncture / Unknown 04/20/2025 7:15 AM EDT 04/20/2025 7:26 AM EDT Grazyna Briseno [facility] BLOOD ORDERABLES Final Result [facility] ([facility]) [address] [place] [address] documented in this encounter Visit Diagnoses Diagnosis Encounter for aftercare following kidney transplant Transplanted kidney Kidney replaced by transplant Encounter for long-term (current) use of medications Encounter for long-term (current) use of other medications documented in this encounter Care Teams Pewter Fabricator Relationship Specialty Start Date End Date Abebe Stewart MD [address] [place] [address], [address] [place] [address] PCP - General Internal Medicine 09/21/24 Abebe Tan MD [address] [place] [id number] Consulting Physician Urology 04/07/25 documented as of this encounter
--- OUTSIDE RECORDS SUMMARY | 2025-04-20 08:15 | XMS_ITS | Encounter Summary ---
Author Organization [facility] Address [address] [place] [address] Care Team Providers Care Joint Cutter Name Role Phone Abebe Stewart MD Primary Care Provider [phone] Abebe Tan MD Unavailable Reason for Visit * Reason Comments Kidney Follow-up Encounter Details Date Type Department Care Team (Late st Contact Info) Description 04/20/2025 8:15 AM EDT Follow-Up [facility] Transplant [address] [place] [id number] Wendy Lomeli MD [address] [facility] [place] [address] Encounter for aftercare following kidney transplant (Primary Dx); Immunosuppressive management encounter following kidney transplant; Need for prophylactic antibiotic; Anemia in chronic kidney disease, unspecified CKD stage; Hypomagnesemia; Primary hypertension Social History Tobacco Use Types Packs/Day Years Used Date Smoking Tobacco: Never Smokeless Tobacco: Never Alcohol Use Standard Drinks/Week Comments Yes 0 (1 standard drink = 0.6 oz pur e alcohol) rare [facility] Utilities Answer Date Recorded In the [...] 04/05/2025 How often do you attend chur or yazidism services? Never 04/05/2025 Do you belong to any clubs o r organizations such as faith groups, unions, fraternal or athletic groups, or [...] Recorded Patient Health Questionnaire-2 Score 0 04/23/2025 [facility] Occup[facility] ional Health - Occupational Stress [...] time in the past [address] [facility], were you homeless or living in a half-way (including now)? No 04/05/2025 Hunger Vital Sign [...] Sign Reading Time Taken Comments Blood Pressure 148/76 04/20/2025 8:17 AM EDT Pulse 67 04/20/2025 8:17 AM EDT Temperature 36.7 C (98.1 F) 04/20/2025 8:17 AM EDT Respiratory Rate 16 04/20/2025 8:17 AM EDT Oxygen Saturation - - Inhaled Oxygen Concentration - - Weight 85 kg (187 lb 8 oz) 04/20/2025 8:17 AM ED T Height 185.4 cm (6' 1 ) 04/20/2025 8:17 AM EDT Body Mass Index 24.74 04/20/2025 8:17 AM EDT documented in this encounter Functional Status documented as of this encounter Patient Instructions * Patient Instructions* Daksha Domínguez, TaneshaD, BCPS - 04/20/2025 8:15 AM EDT Do NOT follow instructions on Envarsus (tacrolimus XR) bottle. Always follow what the transplant clinic verbally tells you to take. Continue to take Envarsus (tacrolimus XR) 2 mg daily unless notified by phone or voicemail to adjust the dosage. Medication Changes Increase magnesium oxide to 300 mg twice daily, hydralazine 100 mg three times daily Labs every appointment Follow up Dr. Robin on Wednesday documented in this encounter Progress Notes * Mary Beth Rubio MD - 04/20/2025 8:15 AM EDT Images from the original note were not included. Transplant Clinic Patient: Alberto Waller; 69 y.o. Visit date: 04/20/2025 Medical and Immunosuppressive Management after Renal Transplant SUBJECTIVE: History Of Present Illness: Alberto Waller is a 69 y.o. male has a past medical history of Anemia in chronic kidney disease (CKD), CKD (chronic kidney disease) stage 5, GFR less than 15 ml/min (CMS/HCC), Diverticular disease, Gout, History of DVT (deep vein thrombosis), Hypertensive disorder, Lung nodule seen on imaging study,NSAID long-term use, Proteinuria, Recurrent sinusitis, Recurrent sinusitis, Renal cyst, left, Secondary hyperparathyroidism of renal origin, and Vitamin D deficiency. Patient presents to [facility] Nephrology clinic today for medical and immunosuppression management post kidney transplant on 03/31/2025. Alberto Waller is a 69 y.o. male with chronic renal failure (CKD 5) secondary to hypertension, with history of chronic NSAID use. He has not yet initiated dialysis. His most recent GFR is 10 mL/min from 03/24/2024. He does not have access in place. Prefers PD as modality if dialysis becomes necessary. His computer systems security analyst is Dr. Eren Garcia. His past medical history is significant for Hypertensionfor the past 10 years, controlled with medications, gout, diverticular disease s/p colectomy (2015), h/o colon polyps (tubular adenomas), h/o DVT - proximal vein left leg (from distal calf to groin, 07/2021, was to be on lifelong warfarin but stopped after 05/2022 GI bleed), recurrent sinusitis, left renal cyst, lung nodule, vitamin D deficiency, proteinuria, secondary hyperparathyroidism and anemia of CKD. He received the Moderna COVID vaccine in October 2020 with boosters in Julynd April 2024. The patient does have a history of DVT/PE/clotting events. He is not on any anticoagulation currently. The patient does have any family history of cancer, father, unsure what typeand sister had renal cancer. He still makes urine, approximately normal amounts per day. He denies any history of UTI, blood in the urine, or kidney stones. He is able to walk 10-15 minutes before stopping due to legs being tired. He denies SOB, chest pain or intermittent claudication with activity. He has never had a blood transfusion. He is not listed at another transplant center. He is not aware of any potential living kidney donors at this time. Patient feels well today. He has had a complicated course since transplant on 03/31/2025. He was discharged and readmitted to hospital for evaluation of a GI bleed. He discharged from hospital 04/11/2025. He was accompanied by his sister during today's visit. Interval History: 04/20/2025 Patient presents for follow up today. He is accompanied by his sister today. He has no complaints today. UOP around 2 L/day. Today's BP 146/76. Home BP 130s-170s/60s-80s. Rashid catheter is in place. Plan on retacrit administration today. Review of Systems Constitutional: Negative for chills, fatigue and fever. HENT: Negative for congestion, rhinorrhea, sore throat and trouble swallowing. Respiratory: Positive for cough. Negative for shortness of breath and wheezing. Cardiovascular: Negative for chest pain, palpitations and leg swelling. Gastrointestinal: Negative for abdominal distention, abdominal pain, nausea and vomiting. Genitourinary: Negative for dysuria, frequency and urgency. Musculoskeletal: Negative for arthralgias, joint swelling and myalgias. Skin: Negative for color change, pallor and rash. Allergic/Immunologic: Positive for immunocompromised state. Neurological: Negative for tremors, weakness and light-headedness. OBJECTIVE: Visit Vitals BP 148/76 (BP Location: Left arm, Patient Position: Sitting) Pulse 67 Temp 36.7 ??C (98.1 ??F) (Oral) Resp 16 Ht 1.854 m (6' 1 ) Wt 85 kg (187 lb 8 oz) BMI 24.74 kg/m?? Smoking Status Never BSA 2.09 m?? Physical Exam Constitutional: General: He is not in acute distress. Appearance: Normal appearance. He is normal weight. HENT: Head: Normocephalic and atraumatic. Mouth/Throat: Mouth: Mucous membranes are moist. Pharynx: Oropharynx is clear. Eyes: General: No scleral icterus. Conjunctiva/sclera: Conjunctivae normal. Cardiovascular: Rate and Rhythm: Normal rate and regular rhythm. Pulses: Normal pulses. Pulmonary: Effort: Pulmonary effort is normal. No respiratory distress. Breath sounds: Normal breath sounds. Abdominal: General: Bowel sounds are normal. There is no distension. Palpations: Abdomen is soft. Comments: Ingram in place. Genitourinary: Comments: Chronic rashid catheter in place draining clear yellow urine. Musculoskeletal: Right lower leg: Edema present. Left lower leg: Edema present. Skin: General: Skin is warm and dry. Neurological: Mental Status: He is alert and oriented to person, place, and time. Psychiatric: Mood and Affect: Mood normal. Behavior: Behavior normal. Recent Labs I have reviewed the patient's most recent labs as listed below: Chemistry: Lab Results Component Value Date/Time NA 142 04/20/2025 0715 K 3.6 04/20/2025 0715 CL 110 (H) 04/20/2025 0715 CO2 26 04/20/2025 0715 BUN 26 (H) 04/20/2025 0715 CREATININE 1.75 (H) 04/20/2025 0715 EGFR 41.4 (L) 04/20/2025 0715 CALCIUM 7.9 (L) 04/20/2025 0715 MG 1.6 (L) 04/20/2025 0715 PHOS 2.7 04/20/2025 0715 PTH 190 (H) 04/16/2025 0745 ALBUMIN 3.3 (L) 04/20/2025 0715 PROT 5.3 (L) 04/20/2025 0715 AST 12 (L) 04/20/2025 0715 ALT 9 04/20/2025 0715 BILITOT 0.7 04/20/2025 0715 ALKPHOS 79 04/20/2025 0715 Hematology: Lab Results Component Value Date WBC 8.39 04/20/2025 HGB 8.1 (L) 04/20/2025 HCT 25.1 (L) 04/20/2025 MCV 98.8 (H) 04/20/2025 PLT 215 04/20/2025 TIBC 123 (L) 04/09/2025 FERRITIN 207.0 04/01/2025 Urine studies: Lab Results Component Value Date PROTUR 117.6 04/20/2025 PROTUR 30 (A) 04/20/2025 CREATUR 64.0 04/20/2025 COLORU Light-Yellow 04/20/2025 SPECGRAVU 1.011 04/20/2025 BLOODU Negative 04/20/2025 WBCU 6-10 (A) 04/20/2025 LEUKOCYTESU Small (A) 04/20/2025 NITRITEU Negative 04/20/2025 HOME MEDICATIONS & PAST MEDICAL/SOCIAL/FAMILY HISTORY: Home medications Outpatient Encounter Medications as of 04/20/2025 Medication Sig Dispense Refill bumetanide (Bumex) 1 mg tablet Take 1 tablet (1 mg) by mouth in the morning. 30 tablet 0 calcium carbonate (Tums) 200 mg calcium (500 mg) chewable tablet Chew 2 tablets (1,000 mg) two times daily. Without food 120 tablet 11 carvedilol (Coreg) 25 mg tablet 25 mg with breakfast and with evening meal. [] cefpodoxime (Vantin) 200 mg tablet Take 2 tablets (400 mg) by mouth two times daily for 4days. 16 tablet 0 finasteride (Proscar) 5 mg tablet Take 1 tablet (5 mg) by mouth in the morning. Do not crush, chew,or split. 30 tablet 11 [] metroNIDAZOLE (Flagyl) 500 mg tablet Take 1 tablet (500 mg) by mouth every 12 (twelve) hours for 18 doses. 18 tablet 0 mycophenolate (Myfortic) 180 mg EC tablet Take 4 tablets (720 mg) by mouth two times daily. 240 tablet 11 nystatin (Mycostatin) 100,000 unit/mL suspension Take 5 mL (500,000 Units) by mouth four times daily. Swish and swallow 600 mL 4 pantoprazole (ProtoNix) 40 mg EC tablet Take 1 tablet (40 mg) by mouth before breakfast and before evening meal. Do not crush, chew, or split. 60 tablet 0 predniSONE (Deltasone) 10 mg tablet Take 1 tablet (10 mg) by mouth in the morning. 30 tablet 11 sod phos di, mono-K phos mono (K Phos Neutral) tablet Take 1 tablet by mouth two times daily. sulfamethoxazole-trimethoprim (Bactrim DS) 800-160 mg tablet Take 1 tablet by mouth 3 (three) timesa week. On Wednesday, Wednesday, and Wednesday 12 tablet 11 tacrolimus ER (Envarsus XR) 0.75 mg tablet ER Take 2 tablets (1.5 mg) by mouth in the morning. Script total 8.5 mg daily 60 tablet 11 tacrolimus ER (Envarsus XR) 1 mg tablet ER Take 3 tablets (3 mg) by mouth in the morning. Script total 8.5 mg daily 90 tablet 11 tacrolimus ER (Envarsus XR) 4 mg tablet ER Take 1 tablet (4 mg) by mouth in the morning. Script total 8.5 mg daily 30 tablet 11 tamsulosin (Flomax) 0.4 mg 24 hr capsule Take 2 capsules (0.8 mg) by mouth in the morning. 60 capsule 0 valGANciclovir (Valcyte) 450 mg tablet Take 1 tablet (450 mg) by mouth in the morning. As directed.30 tablet 1 [DISCONTINUED] docusate sodium (Colace) 100 mg capsule Take 1 capsule (100 mg) by mouth two times daily. 60 capsule 0 [DISCONTINUED] hydrALAZINE (Apresoline) 25 mg tablet Take 3 tablets (75 mg) by mouth three times daily. 270 tablet 0 [DISCONTINUED] magnesium glycinate 100 mg magnesium capsule Take 2 capsules (200 mg) by mouth two times daily. 120 capsule 11 [DISCONTINUED] oxyCODONE-acetaminophen (Percocet) 5-325 mg tablet Take 1 tablet by mouth every 6 (six) hours if needed for severe pain (8-10 pain score) for up to 20 doses. 20 tablet 0 [DISCONTINUED] polyethylene glycol (Glycolax) 17 gram packet Take 17 g by mouth in the morning for 14 days. 14 packet 0 hydrALAZINE (Apresoline) 100 mg tablet Take 1 tablet (100 mg) by mouth three times daily. 90 [id number] magnesium glycinate 100 mg magnesium capsule Take 3 capsules (300 mg) by mouth two times daily. 180capsule 11 [DISCONTINUED] cefpodoxime (Vantin) 200 mg tablet Take 2 tablets (400 mg) by mouth in the morning for 9 days. 18 tablet 0 [DISCONTINUED] clotrimazole (Mycelex) 10 mg sweta Take 1 tablet (10 mg) by mouth four times daily.120 tablet 0 [DISCONTINUED] mycophenolate (Myfortic) 180 mg EC tablet Take 2 tablets (360 mg) by mouth two timesdaily. (LEOPOLDO initial fill only - iMEDs) [DISCONTINUED] predniSONE (Deltasone) 10 mg tablet Take 1 tablet (10 mg) by mouth in the morning. 30 tablet 0 [DISCONTINUED] sod phos di, mono-K phos mono (K Phos Neutral) tablet Take 2 tablets by mouth two times daily. 120 tablet 11 [DISCONTINUED] sulfamethoxazole-trimethoprim (Bactrim DS) 800-160 mg tablet Take 1 tablet by mouth 3 (three) times a week. On Wednesday, Wednesday, and Wednesday 12 tablet 0 [DISCONTINUED] tacrolimus ER (Envarsus XR) 4 mg tablet ER Take 1 tablet (4 mg) by mouth in the morning for 30 doses. 30 tablet 0 [DISCONTINUED] valGANciclovir (Valcyte) 450 mg tablet Take 1 tablet (450 mg) by mouth in the morning. As directed. 30 tablet 0 [] epoetin steve-epbx (Retacrit) injection (albumin free) 10,000 Units No facility-administered encounter medications on file as of 04/20/2025. Allergies Shellfish derived and Amlodipine Past Medical History has a past medical history of Anemia in chronic kidney disease (CKD), CKD (chronic kidney disease) stage 5, GFR less than 15 ml/min ([facility]), Diverticular disease, Gout, History of DVT (deep vein thrombosis), Hypertensive disorder, Lung nodule seen on imaging study, NSAID long-term use, Proteinuria, Recurrent sinusitis, Recurrent sinusitis, Renal cyst, left, Secondary hyperparathyroidism of renal origin, and Vitamin D deficiency. Surgical History has a past surgical history that includes Colectomy partial / total (2015); Colonoscopy (10/05/2022); Splenectomy, total; and Colonoscopy (2015). Social History reports that he has never smoked. He has never used smokeless tobacco. He reports current alcohol use. He reports that he does not use drugs. Family History Family History Problem Relation Name Age of Onset Heart disease Father Had pacemaker ASSESSMENT & DIAGNOSES: 1. Encounter for aftercare following kidney transplant 2. Immunosuppressive management encounter following kidney transplant 3. Need for prophylactic antibiotic 4. Anemia in chronic kidney disease, unspecified CKD stage 5. Hypomagnesemia 6. Primary hypertension PLAN & DISCUSSION Renal allograft function and status: Initial serum creatinine 6.53 Today's serum creatinine: 1.75 UOP ~2 L/day Bumex 1 mg daily UPCR: 117.6/64.0 CMV: Donor Neg / Recipient Pos EBV: Recipient Pos Immunosuppression: Envarsus 2.0 mg daily, Myfortic 360 mg twice daily, reduced dose due to UTI, prednisone 10 mg daily BK virus negative 04/13/25 Antimicrobial prophylaxis: Continue Bactrim DS //, Valcyte 450 mg daily, Discontinue clotrimazole troches due to cough Continue nystatin suspension swish and swallow 4 times daily Urinary tract infection: Leukocytosis, worsenin.32. continue to monitor. Urine Culture pending (patient has chronic rashid in place due to urinary retention) Antibiotic course extended, will complete course of cefpodoxime and metronidazole in today. Hypertension: BP today 146/76 Continue Coreg 25 mg twice daily Increase hydralazine to 100 mg 3 times daily Electrolytes: Hypokalemia: continue D-Zxmuyb-Ufwj 2 tablets twice daily Hypophosphatemia: PTH elevated at 190. Continue R-Bsquku-Uhmi 2 tablets twice daily Hypocalcemia: Vit D-25-OH low. Continue Tums 2 tablets BID - Do not take with meals. Hypomagnesemia: Increase magnesium glycinate to 3 tablets BID Anemia of chronic disease: Hemoglobin 8.1. Anticipate Reticrit administration today. Continue to monitor Chronic cough 2/2 allergic rhinitis: Prefers not use antihistamines due to concerns about blood pressure. Urinary retention: Follow-up with urology regarding Rashid management. Orders Placed This Encounter Procedures Urine culture, routine Urinalysis with reflex culture Creatinine, urine, random Protein, urine, random Urinalysis microscopic with reflex culture Requested Prescriptions Signed Prescriptions Disp Refills hydrALAZINE (Apresoline) 100 mg tablet 90 tablet 11 Sig: Take 1 tablet (100 mg) by mouth three times daily. magnesium glycinate 100 mg magnesium capsule 180 capsule 11 Sig: Take 3 capsules (300 mg) by mouth two times daily. FOLLOW UP: Follow up with Dr. Robin as scheduled 04/23/2025. Mary Beth RUBIO MD Nephrology Fellow PGY 4 - [facility] Nephrology Cosigned by Wendy Lomeli MD at 04/23/2025 12:29 AM EDT Associated attestation - Wendy Lomeli MD - 04/23/2025 12:29 AM EDT By using the attestations below, the signing clinician agrees that I have read and verify that thedocumentation has been personally reviewed by me and ensure that the documentation accurately reflects the encounter. GC: I personally saw this patient on the day of the encounter, performed the vogt portion(s) of the service and participated in the management and confirm the resident's documentation. Please note there may be an additional personal documentation from me. documented in this encounter Plan of Treatment Upcoming Encounters Date Type Department Care Team (Late st Contact Info) Description 04/30/2025 9:00 AM EDT Follow-Up [facility] Transplant [address] [place] [address] Jayjay Robin MD [address] [place] [address] 04/30/2025 9:15 AM EDT Appointment [facility] 2A Infusion [address] [place] [address] 05/10/2025 1:00 PM EDT Procedure Visit [facility] Urology [facility] [place] [address] Abebe Tan MD [facility] [place] [address] 05/10/2025 1:30 PM EDT Appointment [facility] 2A Infusion [address] [place] [address] documented as of this encounter Procedures Procedure Name Priority Date/Time Associated Diagnosis Comments URINALYSIS MICROSCOPIC WITH REFLEX CULTURE Routine 04/20/2025 12:13 PM EDT Encounter for aftercare following kidney transplant URINALYSIS WITH REFLEX CULTURE Routine 04/20/2025 12:13 PM EDT Encounter for aftercare following kidney transplant PROTEIN, URINE, RANDOM Routine 04/20/2025 12:13 PM EDT Encounter for aftercare following kidney transplant CREATININE, URINE, RANDOM Routine 04/20/2025 12:13 PM EDT Encounter for aftercare following kidney transplant URINE CULTURE Routine 04/20/2025 12:13 PM EDT Encounter for aftercare following kidney transplant documented in this encounter Results * Urine culture, routine (04/20/2025 12:13 PM EDT) Urine Culture No growth at 48 hours JES 04/22/2025 8:07 AM EDT [facility] ([facility]) Urine Urine specimen obtained by clean catch procedure / Unknown Non-blood Collection / Unknown 04/20/2025 12:13 PM EDT 04/20/2025 12:17 PM EDT us Wendy Lomeli MD LAB MICROBIOLOGY - GENERAL ORDER TAMEKA Final Result [facility] ([facility]) [address], [place] [id number] * (ABNORMAL) Urinalysis microscopic with reflex culture (04/20/2025 12:13 PM EDT) RBC, Urine 3-5(A) None Seen, 0-2 /HPF 04/20/2025 1:14 PM EDT [facility] ([facility]) WBC, Urine 6-10(A) None Seen, 0-2 /HPF 04/20/2025 1:14 PM EDT [facility] ([facility]) Squamous Epithelial, Urine None Seen None Seen, Occasional , Few /LPF 04/20/2025 1:14 PM EDT [facility] ([facility]) Mucus, Urine Occasional None Seen, Occasional , Few /LPF 04/20/2025 1:14 PM EDT [facility] ([facility]) Urine Urine specimen obtained by clean catch procedure / Unknown Non-blood Collection / Unknown 04/20/2025 12:13 PM EDT 04/20/2025 12:17 PM EDT Wendy Lomeli MD LAB URINE ORDERABLES Final Resul t Performing Organization Address City/[facility]/ZIP Co de Phone Number [facility]) [address] [place] [address] * Protein, urine, random (04/20/2025 12:13 PM EDT) Protein, Ur 117.6 mg/dL 04/20/2025 1:40 PM EDT [facility] ([facility]) Comment:There are no establi shed reference values for random urine specimens. Urine Urine specimen obtained by clean catch procedure / Unknown Non-blood Collection / Unknown 04/20/2025 12:13 PM EDT 04/20/2025 12:17 PM EDT Wendy Lomeli MD LAB URINE ORDERABLES Final Resul t Performing Organization Address City/[facility]/ZIP Co de Phone Number [facility]) [address] [place], [place] [id number] * Creatinine, urine, random (04/20/2025 12:13 PM EDT) Creatinine, Ur 64.0 26 - 299 mg/dL 04/20/2025 1:40 PM EDT [facility] ([facility]) Urine Urine specimen obtained by clean catch procedure / Unknown Non-blood Collection / Unknown 04/20/2025 12:13 PM EDT 04/20/2025 12:17 PM EDT us Wendy Lomeli MD LAB URINE ORDERABLES Final Resul t [facility] ([facility]) [address] [place] [address] * (ABNORMAL) Urinalysis with reflex culture (04/20/2025 12:13 PM EDT) Color, Urine Light-Yellow Colorless, Yellow, Light-Yellow 04/20/2025 1:09 PM EDT [facility] ([facility]) Clarity, Urine Clear Clear 04/20/2025 1:09 PM EDT [facility] ([facility]) pH, Urine 6.5 5.0 - 8.0 pH 04/20/2025 1:09 PM EDT [facility] ([facility]) Leukocytes, Urine Small(A) Negative 04/20/2025 1:09 PM EDT [facility] ([facility]) Nitrite, Urine Negative Negative 04/20/2025 1:09 PM EDT [facility] ([facility]) Protein, Urine 30(A) Negative mg/dL 04/20/2025 1:09 PM EDT [facility] ([facility]) Glucose, Urine Normal Normal mg/dL 04/20/2025 1:09 PM EDT [facility] ([facility]) Bilirubin, Urine Negative Negative 04/20/2025 1:09 PM EDT [facility] ([facility]) Specific [place], Urine 1.011 1.010 - 1.030 04/20/2025 1:09 PM EDT [facility] ([facility]) Ketones, Urine Negative Negative mg/dL 04/20/2025 1:09 PM EDT [facility] ([facility]) Blood, Urine Negative Negative 04/20/2025 1:09 PM EDT [facility] ([facility]) Urobilinogen, Urine Normal Normal mg/dL 04/20/2025 1:09 PM EDT [facility] ([facility]) Urine Urine specimen obtained by clean catch procedure / Unknown Non-blood Collection / Unknown 04/20/2025 12:13 PM EDT 04/20/2025 12:17 PM EDT us Wendy Lomeli MD LAB URINE ORDERABLES Final Resul t [facility] ([facility]) [address] [place], [place] [id number] documented in this encounter Visit Diagnoses Diagnosis Encounter for aftercare following kidney transplant- Primary Immunosuppressive management encounter following kidney transplant Encounter for long-term (current) use of other medications Need for prophylactic antibiotic Encounter for long-term (current) use of antibiotics Anemia in chronic kidney disease, unspecified CKD stage Hypomagnesemia Disorders of magnesium metabolism Primary hypertension Unspecified essential hypertension documented in this encounter Care Teams Joint Cutter Relationship Specialty Start Date End Date Abebe Stewart MD [address] [place] [address], [address] [place] [address] PCP - General Internal Medicine 09/21/24 Abebe Tan MD [address] [place] [id number] Consulting Physician Urology 04/07/25 documented as of this encounter
--- OUTSIDE RECORDS SUMMARY | 2025-04-23 07:00 | XMS_ITS | Encounter Summary ---
Author Organization [facility] Address [address] [place] [address] Care Team Providers Care Ged Teacher Name Role Phone Abebe Stewart MD Primary Care Provider [phone] Abebe Tan MD Unavailable Encounter Details Date Type Department Care Team (Late st Contact Info) Description 04/23/2025 7:00 AM EDT Lab [facility] Kidney Transplant Draw Station [address] [place] [phone] Encounter for aftercare following kidney transplant; Transplanted kidney; Encounter for long-term (current) use of medications Social History Tobacco Use Types Packs/Day Years Used Date Smoking Tobacco: Never Smokeless Tobacco: Never Alcohol Use Standard Drinks/Week Comments Yes 0 (1 standard drink = 0.6 oz pur e alcohol) rare [facility] Utilities Answer Date Recorded In the past 12 months has [employer], gas, oil, or water [employer] threatened to shut off services in your [...] often do you attend chur ch or lutheran services? Never 04/05/2025 Do you belong to any clubs o r organizations such as caodaism groups, unions, fraternal or athletic groups, or [...] Recorded Patient Health Questionnaire-2 Score 0 04/23/2025 [facility] - [...] any time in the past 12 m [facility], were you homeless or living in a halfway (including now)? No 04/05/2025 Hunger Vital Sign [...] EDT Follow-Up [facility] Transplant [address] [place] [phone] Jayjay Robin MD [address] [place] [address] 04/30/2025 9:15 AM EDT Appointment [facility] [address] [place] [address] 05/10/2025 1:00 PM EDT Procedure Visit [facility] Urology [address] [place] [phone] Abebe Tan MD [address] [place] [address] 05/10/2025 1:30 PM EDT Appointment [facility] [address] [place] [address] documented as of this encounter Procedures Procedure Name Priority Date/Time Associated Diagnosis Comments CBC WITH AUTO DIFFERENTIAL Routine 04/23/2025 7:20 AM EDT Encounter for aftercare following kidney transplant Transplanted kidney Encounter for long-term (current) use of medications TACROLIMUS LEVEL Routine 04/23/2025 7:20 AM EDT Encounter for aftercare following kidney transplant Transplanted kidney Encounter for long-term (current) use of medications CBC AND DIFFERENTIAL Routine 04/23/2025 7:20 AM EDT Encounter for aftercare following kidney transplant Transplanted kidney Encounter for long-term (current) use of medications URIC ACID Routine 04/23/2025 7:20 AM EDT Encounter for aftercare following kidney transplant Transplanted kidney Encounter for long-term (current) use of medications PHOSPHORUS Routine 04/23/2025 7:20 AM EDT Encounter for aftercare following kidney transplant Transplanted kidney Encounter for long-term (current) use of medications MAGNESIUM Routine 04/23/2025 7:20 AM EDT Encounter for aftercare following kidney transplant Transplanted kidney Encounter for long-term (current) use of medications BILIRUBIN, DIRECT Routine 04/23/2025 7:2 0 AM EDT Encounter for aftercare following kidney transplant Transplanted kidney Encounter for long-term (current) use of medications COMPREHENSIVE METABOLIC PANEL Routine 04/23/2025 7:20 AM EDT Encounter for aftercare following kidney transplant Transplanted kidney Encounter for long-term (current) use of medications documented in this encounter Results * Bilirubin, direct (04/23/2025 7:20 AM EDT) Bilirubin, Direct 0.1 0 - 0.2 mg/dL 04/23/2025 8:28 AM EDT [facility] ([facility]) Blood Venous blood specimen / Unknown Venipuncture / Unknown 04/23/2025 7:20 AM EDT 04/23/2025 7:38 AM EDT Grazyna Briseno [facility] BLOOD ORDERABLES Final Result [facility] ([facility]) [address] [place] [address] * (ABNORMAL) CBC auto differential (04/23/2025 7:20 AM EDT) Auto WBC 8.32 4.00 - 10.60 10*3/uL 04/23/2025 7:48 AM EDT [facility] ([facility]) RBC 2.56(L) 4.20 - 5.70 10*6/uL 04/23/2025 7:48 AM EDT [facility] ([facility]) Hemoglobin 8.4(L) 13.0 - 17.0 g/dL 04/23/2025 7:48 AM EDT [facility] ([facility]) Hematocrit 25.4(L) 39.0 - 50.0 % 04/23/2025 7:48 AM EDT [facility] ([facility]) MCV 99.2(H) 82.0 - 98.0 fL 04/23/2025 7:48 AM EDT [facility] ([facility]) MCH 32.8 27.0 - 33.0 pg 04/23/2025 7:48 AM EDT [facility] ([facility]) MCHC 33.1 32.0 - 35.0 g/dL 04/23/2025 7:48 AM EDT [facility] ([facility]) RDW 17.9(H) 11.5 - 15.0 % 04/23/2025 7:48 AM EDT [facility] ([facility]) Neutrophils % 67.1 40.0 - 72.0 % 04/23/2025 7:48 AM EDT [facility] ([facility]) Lymphocytes % 22.4 20.0 - 45.0 % 04/23/2025 7:48 AM EDT [facility] ([facility]) Monocytes % 8.1 5.0 - 12.0 % 04/23/2025 7:48 AM EDT [facility] ([facility]) Eosinophils % 1.0 0.0 - 6.0 % 04/23/2025 7:48 AM EDT [facility] ([facility]) Basophils % 0.8 0.0 - 1.0 % 04/23/2025 7:48 AM EDT [facility] ([facility]) Neutrophils Absolute 5.59 1.60 - 7.60 10*3/uL 04/23/2025 7:48 AM EDT [facility] ([facility]) Lymphocytes Absolute 1.86 1.20 - 4.00 10*3/uL 04/23/2025 7:48 AM EDT [facility] ([facility]) Monocytes Absolute 0.67 0.10 - 1.00 10*3/uL 04/23/2025 7:48 AM EDT [facility] ([facility]) Eosinophils Absolute 0.08 0.00 - 0.50 10*3/uL 04/23/2025 7:48 AM EDT [facility] ([facility]) Basophils Absolute 0.07 0.00 - 0.20 10*3/uL 04/23/2025 7:48 AM EDT [facility] ([facility]) Platelets 255 150 - 400 10*3/uL 04/23/2025 7:48 AM EDT [facility] ([facility]) nRBC % 0.0 0 % 04/23/2025 7:48 AM EDT [facility] ([facility]) Immature Granulocytes % 0.6 0.0 - 1.0 % 04/23/2025 7:48 AM EDT [facility] ([facility]) Immature Granulocytes Absolute 0.05 0.00 - 0.20 10*3/uL 04/23/2025 7:48 AM EDT [facility] ([facility]) Blood Venous blood specimen / Unknown Venipuncture / Unknown 04/23/2025 7:20 AM EDT 04/23/2025 7:38 AM EDT us Grazyna Briseno [employer] LAB BLOOD ORDERABLES Final Result [facility] ([facility]) [address] [place] [address] * (ABNORMAL) Tacrolimus level (04/23/2025 7:20 AM EDT) Tacrolimus Lvl 4.5(L) 5.0 - 20.0 ng/mL 04/23/2025 10:06 AM EDT [facility] ([facility]) Comment:The CM DIE FITTER Tacrolimus assay is a delayed one-step immunoassay for the quantitative determination of tacrolimus in human whole blood using the chemiluminescent microparticle immunoassay (CMIA) technology with flexible assay protocols, referred to as Chemiflex. Blood Venous blood specimen / Unknown Venipuncture / Unknown 04/23/2025 7:20 AM EDT 04/23/2025 7:38 AM EDT Grazyna Finn CNP LAB BLOOD ORDERABLES Final Result [facility]) [address] [place] [id number] * Uric acid (04/23/2025 7:20 AM EDT) Uric Acid 7.1 4.4 - 7.6 mg/dL 04/23/2025 8:28 AM EDT [facility]) Blood Venous blood specimen / Unknown Venipuncture / Unknown 04/23/2025 7:20 AM EDT 04/23/2025 7:38 AM EDT [facility]OD ORDER[facility] Final Result Performing Organization Address City/[facility]/ZIP Co de Phone Number [facility]) [address] [place] [phone] * (ABNORMAL) Phosphorus (04/23/2025 7:20 AM EDT) Phosphorus 2.2(L) 2.5 - 5.0 mg/dL 04/23/2025 8:28 AM EDT [facility]) Blood Venous blood specimen / Unknown Venipuncture / Unknown 04/23/2025 7:20 AM EDT 04/23/2025 7:38 AM EDT [facility] LAB BLOOD ORDERABLES Final Result [facility] ([facility]) [address] [place], [place] [id number] * (ABNORMAL) Magnesium (04/23/2025 7:20 AM EDT) Magnesium 1.5(L) 1.9 - 2.7 mg/dL 04/23/2025 8:28 AM EDT [facility] ([facility]) Blood Venous blood specimen / Unknown Venipuncture / Unknown 04/23/2025 7:20 AM EDT 04/23/2025 7:38 AM EDT Grazyna Briseno [facility] LAB BLOOD ORDERABLES Final Result Performing Organization Address [facility]/ZIP Co de Phone Number [facility] ([facility]) [address] [place] [address] * (ABNORMAL) Comprehensive metabolic panel (04/23/2025 7:20 AM EDT) Sodium 139 136 - 145 mmol/L 04/23/2025 8:28 AM EDT [facility] ([facility]) Potassium 3.5 3.5 - 5.1 mmol/L 04/23/2025 8:28 AM EDT [facility] ([facility]) Chloride 107 98 - 107 mmol/L 04/23/2025 8:28 AM EDT [facility] ([facility]) CO2 26 21 - 31 mmol/L 04/23/2025 8:28 AM EDT [facility] ([facility]) Anion Gap 10 7 - 20 mmol/L 04/23/2025 8:28 AM EDT [facility] ([facility]) BUN 30(H) 7 - 25 mg/dL 04/23/2025 8:28 AM EDT [facility] ([facility]) Creatinine 2.11(H) 0.70 - 1.30 mg/dL 04/23/2025 8:28 AM EDT [facility] ([facility]) BUN/Creatinine Ratio 14.2 04/03 8:28 AM EDT [facility] ([facility]) Glucose 89 70 - 100 mg/dL 04/23/2025 8:28 AM EDT [facility] ([facility]) Calcium 7.5(L) 8.6 - 10.3 mg/dL 04/23/2025 8:28 AM EDT [facility] ([facility]) AST 11(L) 13 - 39 U/L 04/23/2025 8:28 AM EDT [facility] ([facility]) ALT (SGPT) 7 7 - 52 U/L 04/23/2025 8:28 AM EDT [facility] ([facility]) Alkaline Phosphatase 84 34 - 104 U/L 04/23/2025 8:28 AM EDT [facility] ([facility]) Total Protein 5.2(L) 6.0 - 8.3 g/dL 04/23/2025 8:28 AM EDT [facility] ([facility]) Albumin 3.2(L) 3.5 - 5.7 g/dL 04/23/2025 8:28 AM T [facility] ([facility]) Total Bilirubin 0.5 0.3 - 1.0 mg/dL 04/23/2025 8:28 AM T [facility] ([facility]) eGFR 33.0(L) >60.0 mL/min/1. 73m*2 04/23/2025 8:28 AM T [facility] ([facility]) Comment:[facility] s estimated glomerular filtration rate (eGFR) will [...] blood specimen / Unknown Venipuncture / Unknown 04/23/2025 7:20 AM EDT 04/23/2025 7:38 AM EDT us Grazyna Briseno [facility] BLOOD ORDERABLES Final Result [facility] ([facility]) [address] [place] [address] documented in this encounter Visit Diagnoses Diagnosis Encounter for aftercare following kidney transplant Transplanted kidney Kidney replaced by transplant Encounter for long-term (current) use of medications Encounter for long-term (current) use of other medications documented in this encounter Care Teams Ged Teacher Relationship Specialty Start Date End Date Abebe Stewart MD [address] [place] [address], [address] [place] [address] PCP - General Internal Medicine 09/21/24 Abebe Tan MD [address] [place] [id number] Consulting Physician Urology 04/07/25 documented as of this encounter
--- OUTSIDE RECORDS SUMMARY | 2025-04-23 09:00 | XMS_ITS | Encounter Summary ---
Author Organization [facility] Address [address] [place] [address] Care Team Providers Care Manager Cosmetics Name Role Phone Abebe Stewart MD Primary Care Provider [phone] Abebe Tan MD Unavailable Reason for Referral * Consultation (Routine) - Pending Review Specialty Diagnoses / Procedures Referred By Contlee gupta Referred To Contact Gastroenterology Diagnoses Diverticulitis Procedures [place] OFFICE/OUTPATIENT [facility] 60 MINUTES Jayjay Robin MD [address] [place] [address] Phone: tel: fax: [facility] Invasive Surgery [facility] [address] [place] [address] Phone: tel: fax: Referral ID Status Reason Start Date Expiration Date Visits Requested Visits Authorized [id number] Pending Review Specialty Services Required 04/23/2025 04/23/2026 1 1 Reason for Visit * Reason Comments Kidney Follow-up Encounter Details Date Type Department Care Team (Late st Contact Info) Description 04/23/2025 9:00 AM EDT Follow-Up [facility] Transplant [address] [place] [address] Jayjay Robin [place] [address] Immunosuppressive management encounter following kidney transplant (Primary Dx); Encounter for aftercare following kidney transplant; Primary hypertension; Gastroesophageal reflux disease without esophagitis; Diverticulitis; Hypocalcemia; Hypomagnesemia; Abdominal pain, unspecified abdominal location; Hypophosphatemia; Hypoalbuminemia; Benign prostatic hyperplasia with urinary retention; Anemia in chronic kidney disease, unspecified CKD stage Social History Tobacco Use Types Packs/Day Years Used Date Smoking Tobacco: Never Smokeless Tobacco: Never Alcohol Use Standard Drinks/Week Comments Yes 0 (1 standard drink = 0.6 oz pur e alcohol) rare [facility] Utilities Answer Date Recorded In the past 12 months has e [facility], oil, or water [employer] threatened to shut off services in your [...] often do you attend chur ch or muslim services? Never 04/05/2025 Do you belong to [...] Recorded Patient Health Questionnaire-2 Score 0 04/23/2025 [facility] [place] [facility] Occupat ional Health - Occupational Stress [...] in the past 12 m [facility], were you homeless or living in a [...] Sign Reading Time Taken Comments Blood Pressure 174/80 04/23/2025 8:50 AM EDT Pulse 67 04/23/2025 8:50 AM EDT Temperature 36.6 C (97.9 F) 04/23/2025 8:50 AM EDT Respiratory Rate 18 04/23/2025 8:50 AM EDT Oxygen Saturation 97% 04/23/2025 8:50 AM EDT Inhaled Oxygen Concentration - - Weight 84.1 kg (185 lb 8 oz) 04/23/2025 8:50 AM EDT Height 185.4 cm (6' 1 ) 04/23/2025 8:50 AM EDT Body Mass Index 24.47 04/23/2025 8:50 AM EDT documented in this encounter Functional Status documented as of this encounter Patient Instructions * Patient Instructions* Zahra Rhoades RN - 04/23/2025 9:00 AM EDT Do NOT follow instructions on Envarsus (tacrolimus XR) bottle. Always follow what the transplant clinic verbally tells you to take. Continue to take Envarsus (tacrolimus XR) 4 mg daily unless notified by phone or voicemail to adjust the dosage. Medication Changes Increase Prednisone to 20mg daily Increase Tums to 3 tabs twice a day Increase Magnesium Glycinate 3 tabs three times a day Decrease Protonix to Daily in the morning Start Pepcid 20 mg Daily at bedtime. Start taking Nifedipine 30mg Daily Continue Bactrim until he is 1 year out from transplant Increase you dairy intake to help bring up your Phosphorus. Increase your protein intake, eggs are a good source of protein. Get labs on 04/26/25 Labs at every appointment Follow up with on Monday 04/[address] Robin documented in this encounter Progress Notes * Jayjay Robin MD - 04/23/2025 9:00 AM EDT Images from the original note were not included. 04/23/2025 Chief Complaint Patient presents with Kidney Follow-up PCP: Abebe Stewart MD Txp Referring: Shereen Stephens [facility] Pharmacy: [facility] [id number] [facility] [address] [facility] [address] [facility] [address] [facility] [place] [address] [place] [address] [facility] [address] [facility] - [address] [address] Organ: Kidney Subjective Visit Vitals BP 174/80 Pulse 67 Temp 36.6 ??C (97.9 ??F) Resp 18 Ht 1.854 m (6' 1 ) Wt 84.1 kg (185 lb 8 oz) SpO2 97% BMI 24.47 kg/m?? Smoking Status Never BSA 2.08 m?? Allergies[1] SHELLFISH AMLODIPINE Immunization History Administered Date(s) Administered Influenza, High Dose Seasonal, Preservative Free 04/06/2024 Influenza, High-dose Seasonal, Quadrivalent, Preservative Free 07/15/2023 Influenza, injectable, quadrivalent, preservative free 07/01/2018 Moderna 12 YR UP Vaccine BiValent Booster 10/03/2020, 10/31/2020 Moderna Covid-19 vaccine, 12&up 07/15/2023, 04/06/2024 [facility] Covid-19 Vaccine, 12&up, Fall 2022-24 10/07/2024 Pneumococcal Conjugate PCV 13 08/27/2015 Pneumococcal Conjugate [...] graft function. Patient not previously on dialysis. He was readmitted for diverticulitis and urinary retention, has a rashid catheter in place, and on oral antibiotics. Abdominal pain resolved. Patient comes to the [facility] transplant clinic for a follow-up visit. Patient reports making about 2200 mL of urine per day. Patient currently has rashid catheter in place. Void trial next week. Review of Systems Constitutional: Negative for chills [...] RLQ incision c/d/I, no cellulitis/hernia, rashid in place, jose david removed. Musculoskeletal: Cervical back: Neck supple. Right lower leg: Edema present. Left lower leg: Edema present. Comments: B/l mild pedal edema, improved. Skin: Coloration: Skin is not jaundiced. Findings: No rash. Neurological: Mental Status: He is alert and oriented to person, place, and time. Psychiatric: Mood and Affect: Mood normal. Lab Results Component Value Date CREATININE 2.11 (H) 04/23/2025 CREATININE (MG/DL) IN URINE 64.0 04/20/2025 SODIUM 139 04/23/2025 POTASSIUM 3.5 04/23/2025 CHLORIDE 107 04/23/2025 MAGNESIUM 1.5 (L) 04/23/2025 CALCIUM 7.5 (L) 04/23/2025 HEMATOCRIT 25.4 (L) 04/23/2025 HEMOGLOBIN 8.4 (L) 04/23/2025 HEMOGLOBIN A1C 5.1 04/13/2025 PLATELETS AUTO 255 04/23/2025 TACROLIMUS LVL 3.9 (L) 04/20/2025 Donor ABO: O Donor Labs: CMV: Negative HBC: Negative HCV: Negative Assessment/Plan 69 year old male, 16 days status post donor renal transplant. Patient was not on dialysis prior to transplant. Patient did not have delayed graft function and did not require dialysis post transplant. Admission creatinine was 7.28 and discharge creatinine was 5.12. Today's creatinine 2.11 from 1.75. Hydrate better (had diarrhea), check prospera. Admitted 04/05/2025 for GI Bleed/ diverticulitis/ urinary [...] transplant kidney. *Small simple renal cyst. BK: 04/13/2025 not detected CMV: not tested DSA: 04/13/25 not detected, check monthly Prospera: not tested, check today and monthly due to lower immunosuppression Rashid catheter removed on post op day 3. Immunosuppression: For induction patient received simulect, received only one dose, second one was not given due to diverticulitis. We will get him another dose of simulect on (04/26). For maintenance immunosuppression: Envarsus 3 mg daily, TAC level today is 4.5. Patient told to increase dose to 4 mg daily. Myfortic 360mg BID (lower dose due to diverticulitis and diarrhea), increase prednisone from 10 -20mg daily due to subtherapeutic levels. Immunoprophylaxis: Nystatin 5mL four times daily, bactrim DS MWF, valcyte 450mg QAM CMV status is donor negative / recipient negative EBV status is donor positive/ recipient positive Diverticulitis: Vantin-cefpodoxime 400mg QAM for 14 days last dose 04/20 Flagyl 500mg BID for 14 days last dose 04/20 Pain improved Plan for colonoscopy in 6 weeks per GI, we will send a consult Hypertension: coreg 25mg BID, hydralazine 100mg TID, blood pressure is a little high, start nifedipine 30 mg daily (develops swelling from amlodipine, we will carefully monitor for tat with nifedipine. GERD: Decrease Protonix from 40 mg BID to 40 mg daily, add pepcid 20 mg daily (due to hypomagnesemia) due to GI bleed recently, no bleeding currently, does not have reflux symptoms currently Hypophosphatemia: K phos neutral 2 tablets BID Hypomagnesemia: Increase Mag glycinate from 300 mg bid to tid, decrease p[rotonix dose. Hypocalcemia: Increase Tums from 2 to 3 tabs bid, increase protein in diet to improved albumin levels Hypoalbuminemia/ LE edema: Increase protein in diet, continue Bumex 1 mg daily Diarrhea : Stopped [place] and Glycolax, lower myfortic dose to 360 mg bid, two Bms daily BPH/ urinary retention: Flomax 0.8mg QAM, rashid catheter in place, went into retention twice. StartFinasteride 5 mg daily. Plan for void trial and [facility] teaching on Wednesday, will need TURP. Discussed with Dr. Tan. Anemia: Had Retacrit 04/20 Rashid: Void trial & [facility] teaching scheduled today Drain: Removed 04/07/2025 Stent: wait till rashid is out and prostate situation is to set a date for stent removal Follow up: Urology today for void trial and [facility] teaching. labs, see me on Wednesday. Jayjay Robin MD [1] Allergies Allergen Reactions Shellfish [...] Diverticulitis Encounter for aftercare following kidney transplant Immunosuppression Benign prostatic hyperplasia with urinary retention Hypophosphatemia Bilateral lower extremity edema Hypocalcemia Hypomagnesemia Diarrhea [3] Family History Problem Relation Name Age [...] Info) Description 04/30/2025 9:00 AM EDT Follow-Up [facility] [place] [address] [place]jay [place] [address] 04/30/2025 9:15 AM EDT Appointment [facility] 2A [address]fusion [place] [address] 05/10/2025 1:00 PM EDT Procedure Visit [facility] [address]rology [address] [place] [address] Abebe Tan MD [address] [place] [address] 05/10/2025 1:30 PM EDT Appointment [facility] 2A [place] [address] Pending Results Name Type Priority Associated Diagnoses Date /Time Leela Lu (Single) Lab Routine Encounter for aftercare following kidney transplant Immunosuppressive management encounter following kidney transplant 04/26/2025 8:06 AM EDT Donor specific antibody Lab Routine Encounter for aftercare following kidney transplant Immunosuppressive management encounter following kidney transplant 04/26/2025 8:06 AM EDT Scheduled Orders Name Type Priority Associated Diagnoses Orde r Schedule Leela Lu (Single) Lab Routine Encounter for aftercare following kidney transplant Immunosuppressive management encounter following kidney transplant Every 4 weeks for 12 Occurrences starting 04/23/2025 until 04/23/2026 Donor specific antibody Lab Routine Encounter for aftercare following kidney transplant Immunosuppressive management encounter following kidney transplant Every 4 weeks for 20 Occurrences starting 04/23/2025 until 04/23/2026 Scheduled Referrals Name Type Priority Associated Diagnoses Order Schedule Ambulatory referral to Gastroenterology Outpatient Referral Routine Diverticulitis Expected: 04/23/2025 (Approximate), Expires: 10/21/2025 documented as of this encounter Procedures Procedure Name Priority Date/Time Associated Diagnosis Comments URINALYSIS MICROSCOPIC WITH REFLEX CULTURE Routine 04/23/2025 11:07 AM EDT Encounter for aftercare following kidney transplant URINALYSIS WITH REFLEX CULTURE Routine 04/23/2025 11:07 AM EDT Encounter for aftercare following kidney transplant PROTEIN, URINE, RANDOM Routine 04/23/2025 11:07 AM EDT Encounter for aftercare following kidney transplant CREATININE, URINE, RANDOM Routine 04/23/2025 11:07 AM EDT Encounter for aftercare following kidney transplant URINE CULTURE Routine 04/23/2025 11:07 AM EDT Encounter for aftercare following kidney transplant documented in this encounter Results * (ABNORMAL) Leela Prospera (19 Days Post Txp) (04/23/2025 11:36 AM EDT) CURRENT TEST RESULT 1.19%(A) 04/27/2025 3:13 PM EDT [facility] Comment: Increased risk for rejection dd-cfDNA Quantity: 53 cp/ml Ref range displayed is for Prospera Test for Kidney Transplant Increased Risk of Rejection: dd-cfDNA % >= 1% or DQS >= 78 cp/ml; Decreased Risk of Rejection: dd-cfDNA % <1% and DQS <78 cp/ml For technical details, limitations, and testing methodology please refer to the complete report via the [facility] Provider Portal or contact your [facility] Nurse Coordinator at [phone] PATIENT TEST HISTORY See Notes 04/27/2025 3:13 PM EDT [facility] Comment: Date: 04-23-2025, Value: dd-cfDNA% 1.19%, dd-cfDNA Quantity: 53 cp/ml, Total cfDNA: - Date: 04-23-2025, Value: dd-cfDNA% 1.19%, dd-cfDNA Quantity: 53 cp/ml, Total cfDNA: - Increased risk for rejection Test performed by [facility]. : [address] [place] [id number]. CLIA ID #[id number]: CLIA Aesthetician: Imtiaz Wade, Ph.D., [facility] Blood Venous blood specimen / Unknown Venipuncture / Unknown 04/23/2025 11:36 AM EDT 04/23/2025 12:03 PM EDT us Jayjay Robin MD LAB MOLECULAR DIAGNOSTICS ORDERA BLES Final Result [facility] [address] [place] [address], [place] * Urine culture, routine (04/23/2025 11:07 AM EDT) Urine Culture No growth at 48 hours JES 04/25/2025 7:45 AM EDT [facility] ([facility]) Urine Urine specimen obtained by clean catch procedure / Unknown Non-blood Collection / Unknown 04/23/2025 11:07 AM EDT 04/23/2025 12:54 PM EDT Jayjay Robin MD LAB MICROBIOLOGY - GENERAL ORDER TAMEKA Final Result Performing Organization Address City/[facility]/ZIP Co de Phone Number [facility] (AKER) [address] [place] [address] * (ABNORMAL) Urinalysis microscopic with reflex culture (04/23/2025 11:07 AM EDT) RBC, Urine 6-10(A) None Seen, 0-2 /HPF 04/23/2025 1:57 PM EDT [facility] (BEAK[facility]) WBC, Urine 6-10(A) None Seen, 0-2 /HPF 04/23/2025 1:57 PM EDT [facility] ([facility]) Squamous Epithelial, Urine None Seen None Seen, Occasional , Few /LPF 04/23/2025 1:57 PM EDT [facility] (BEAKER) Urine Urine specimen obtained by clean catch procedure / Unknown Non-blood Collection / Unknown 04/23/2025 11:07 AM EDT 04/23/2025 12:54 PM EDT us Jayjay Robin MD LAB URINE ORDERABLES Final Resul t Performing Organization Address City/[facility] Co de Phone Number [facility] ([facility]) [address] [place] [address] * Protein, urine, random (04/23/2025 11:07 AM EDT) Protein, Ur 175.2 mg/dL 04/23/2025 3:12 PM EDT [facility] ([facility]) Comment:There are no establi shed reference values for random urine specimens. Urine Urine specimen obtained by clean catch procedure / Unknown Non-blood Collection / Unknown 04/23/2025 11:07 AM EDT 04/23/2025 12:54 PM EDT us Jayjay Robin MD LAB URINE ORDERABLES Final Resul t Performing Organization Address [facility] de Phone Number [facility] ([facility]) [address] [place] [address] * Creatinine, urine, random (04/23/2025 11:07 AM EDT) Creatinine, Ur 99.0 26 - 299 mg/dL 04/23/2025 3:12 PM EDT [facility] ([facility]) Urine Urine specimen obtained by clean catch procedure / Unknown Non-blood Collection / Unknown 04/23/2025 11:07 AM EDT 04/23/2025 12:54 PM EDT us Jayjay Robin MD LAB URINE ORDERABLES Final Resul t Performing Organization Address [facility] Co de Phone Number [facility] ([facility]) [address] [place] [address] * (ABNORMAL) Urinalysis with reflex culture (04/23/2025 11:07 AM EDT) Color, Urine Yellow Colorless, Yellow, Light-Yellow 04/23/2025 1:57 PM EDT [facility] ([facility]) Clarity, Urine Clear Clear 04/23/2025 1:57 PM EDT [facility] pH, Urine 7.0 5.0 - 8.0 pH 04/23/2025 1:57 PM EDT [facility] ([facility]) Leukocytes, Urine Small(A) Negative 04/23/2025 1:57 PM EDT [facility] ([facility]) Nitrite, Urine Negative Negative 04/23/2025 1:57 PM EDT [facility] ([facility]) Protein, Urine 100(A) Negative mg/dL 04/23/2025 1:57 PM EDT [facility] ([facility]) Glucose, Urine Normal Normal mg/dL 04/23/20 25 1:57 PM EDT [facility] ([facility]) Bilirubin, Urine Negative Negative 04/23/2025 1:57 PM EDT [facility] ([facility]) Specific [place], Urine 1.014 1.010 - 1.030 04/23/2025 1:57 PM EDT [facility] ([facility]) Ketones, Urine Negative Negative mg/dL 04/23/2025 1:57 PM EDT [facility] ([facility]) Blood, Urine Trace(A) Negative 04/23/2025 1:57 PM EDT [facility] ([facility]) Urobilinogen, Urine Normal Normal mg/dL 04/23/2025 1:57 PM EDT [facility] ([facility]) Urine Urine specimen obtained by clean catch procedure / Unknown Non-blood Collection / Unknown 04/23/2025 11:07 AM EDT 04/23/2025 12:54 PM EDT us Jayjay Robin MD LAB URINE ORDERABLES Final Resul t [facility] ([facility]) [address] [place] [address] documented in this encounter Visit Diagnoses Diagnosis Immunosuppressive management encounter following kidney transplant- Primary Encounter for long-term (current) use of other medications Encounter for aftercare following kidney transplant Primary hypertension Unspecified essential hypertension Gastroesophageal reflux disease without esophagitis Esophageal reflux Diverticulitis Diverticulitis of colon (without mention of hemorrhage) Hypocalcemia Hypomagnesemia Disorders of magnesium metabolism Abdominal pain, unspecified abdominal location Hypophosphatemia Disorders of phosphorus metabolism Hypoalbuminemia Other disorders of plasma protein metabolism Benign prostatic hyperplasia with urinary retention Anemia in chronic kidney disease, unspecified CKD stage documented in this encounter Care Teams Manager Cosmetics Relationship Specialty Start Date End Date Abebe Stewart MD [address] [place] [address], [address] [place] [address] PCP - General Internal Medicine 09/21/24 Abebe Tan MD [address] [place] [phone] Consulting Physician Urology 04/07/25 documented as of this encounter
--- OUTSIDE RECORDS SUMMARY | 2025-04-23 10:15 | XMS_ITS | Encounter Summary ---
Author Organization [facility] Address [address] [place] [address] Care Team Providers Care Joinery Setter Out Name Role Phone Abebe Stewart MD Primary Care Provider [phone] Abebe Tan MD Unavailable Reason for Visit * Reason Comments Urinary Retention Possible void trial Encounter Details Date Type Department Care Team (Late st Contact Info) Description 04/23/2025 10:15 AM EDT Follow-Up [facility] Urology [address] [place] [phone] Odette Duarte, OPERATIONAL RISK CONSULTANT [address] [place], [place] [id number] 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); End stage renal disease (CMS/HCC) Social History Tobacco Use Types Packs/Day Years Used Date Smoking Tobacco: Never Smokeless Tobacco: Never Alcohol Use Standard Drinks/Week Comments Yes 0 (1 standard drink = 0.6 oz pur e alcohol) rare [facility] Utilities Answer Date Recorded In the past 12 months has [employer] gas, oil, or water [email or web address] threatened to shut off services in your [...] often do you attend chur ch or voodoo services? Never 04/05/2025 Do you belong to any clubs o r organizations such as mormon groups, unions, fraternal or athletic groups, or [...] Recorded Patient Health Questionnaire-2 Score 0 04/23/2025 [facility] - Occupational Stress [...] any time in the past 12 m [facility], were you homeless or living in a [facility] (including now)? No 04/05/2025 Hunger Vital Sign [...] Time Taken Comments Blood Pressure 174/80 04/23/2025 10:50 AM EDT Pulse 67 04/23/2025 10:50 AM EDT Temperature 36.6 C (97.9 F) 04/23/2025 10:50 AM EDT Respiratory Rate 18 04/23/2025 10:50 AM EDT Oxygen Saturation 97% 04/23/2025 10:50 AM EDT Inhaled Oxygen Concentration - - Weight 84.1 kg (185 lb 8 oz) 04/23/2025 10:50 AM EDT Height 185.4 cm (6' 1 ) 04/23/2025 10:50 AM EDT Body Mass Index 24.47 04/23/2025 10:50 AM EDT documented in this encounter Functional Status documented as of this encounter Progress Notes * Odette Duarte, ESPERANZA - 04/23/2025 10:15 AM EDT [facility] Department of Urology HISTORY & PHYSICAL Chief Complaint Patient presents with Urinary Retention Possible void trial History of Present Illness: Alberto Waller is a 69 y.o. male with past medical history significant for but not limited to End-stage renal disease secondary to hypertensive nephrosclerosis who underwent donor Kidney transplant to the right iliac fossa on 03/31/2025 (Kidney), 04/05/2025 he was readmitted to the hospital for diverticulitis and urinary retention, discharged on 04/11/2025, per patient report failed trial of void x 2 prior to discharge, discharged with rashid catheter in place, completed course flagyl and cefpodoxime for a total of 14 days. continues on BactrimDS 1 tablet 3 times weekly, . BPH/ urinary retention: - patient reports prior to transplant was experiencing nocturia 1-2 times a night, urinated every 2-3 hours with occasional split stream, feeling of incomplete emptying at times and was told he had enlarged prostate, denies any history of elevated PSA -PSA 1.4 on 09/21/24 -On 04/16/2025 prescribed Flomax 0.8mg QAM, finasteride 5 mg daily, patient is poor historian , patient thinks is taking flomax 0.4mg x 2 tabs and started finasteride both recently -rashid catheter remains in place, failed prior trial of void x 2 -Patient is very hesitant to remove Rashid catheter secondary to difficult placement and pain. -Requesting catheter remain in place short-term hoping medications will improve chances of successful trial of void. Patient complains of fatigue and generalized weakness presents in a wheelchair, reports is ambulating at home. denies any Rashid catheter discomfort, fever, chills, chest pain, shortness of breath, abdominal pain, nausea, vomiting Negative other than pertinent positives as outlined in the above HPI. Historical >>>>>>>>>>>>>>>>>>>>>>>>>>>>>>>>>>>>>>>>>>>>>>>>>>>>>>>>>>>>>>>>>> 04/23/25 HPI Alberto Waller is a 69 y.o. [...] and on oral antibiotics. Abdominal pain resolved. 04/05/25-04/11/25 Inpatient hospitalization Rashid catheter was placed on 04/05/25 , trial of void was attempted and catheter replaced on 04/10 due to urinary retention with plans to keep in place until Monday 04/16 at minimum. Leukocytosis improved. Final dose of simulect was held due to infection concerns. Patient was transitioned from cipro to cephalosporins due to qt prolongation. Patient [...] 3. Nonspecific small volume free intraperitoneal fluid. >>>>>>>>>>>>>>>>>>>>>>>>>>>>>>>>>>>>>>>>>>>>>>>>>>>>>>>>>>>> Medical History[1] Surgical History[2] Allergies[3] Current Medications[4] Social History Socioeconomic History Marital status: Significant Other Spouse name: Not on file Number of children: Not on file Years of education: Not on file Highest education level: Not on file Occupational History Not on file Tobacco Use Smoking status: Never Smokeless tobacco: Never Vaping Use Vaping status: Never Used Substance and Sexual Activity Alcohol use: Yes Comment: rare Drug use: Never Sexual activity: Defer Other Topics Concern Not on file Social History Narrative Not on file Social Drivers of Health Financial Resource Strain: Low Risk (04/05/2025) Overall Financial Resource Strain (CARDIA) Difficulty of Paying Living Expenses: Not hard at all Food Insecurity: No Food Insecurity (04/05/2025) Hunger Vital Sign Worried About Running Out of Food in the Last Year: Never true Ran Out of Food in the Last Year: Never true Transportation Needs: No Transportation Needs (04/05/2025) Transportation Lack of Transportation (Medical): No Lack of Transportation (Non-Medical): No Physical Activity: Not on file Stress: No Stress Concern Present (04/05/2025) [facility] [place] [facility] - Occupational Stress Questionnaire Feeling of Stress : Only a little Social Connections: Socially Isolated (04/05/2025) Social Connection and Isolation Panel [NHANES] Frequency of Communication with Friends and Family: More than three times a week Frequency of Social Gatherings with Friends and Family: More than three times a week Attends Buddhist Services: Never Active Member of Clubs or Organizations: No Attends Club or Organization Meetings: Never Marital Status: Intimate Partner Violence: Not At Risk (04/05/2025) Humiliation, Afraid, Rape, and Kick questionnaire Fear of Current or Ex-Partner: No Emotionally Abused: No Physically Abused: No Sexually Abused: No Housing Stability: Low Risk (04/05/2025) Housing Stability Vital Sign Unable to Pay for Housing in the Last Year: No Number of Times Moved in the Last Year: 0 Homeless in the Last Year: No Family History[5] Physical Exam: Constitutional: Alberto Waller chronically ill-appearing psychiatric: Normal affect, alert and oriented HEENT: No scleral icterus Pulmonary: Is not laboring to breathe Cardiovascular: No obvious cyanosis of the extremities Extremities: No significant lower extremity edema Neurologic: Grossly nonfocal, presents W/C Skin: No jaundice : Rashid catheter in place draining clear yellow urine, attached to thigh Vital Signs: Blood pressure 174/80, pulse 67, temperature 36.6 ??C (97.9 ??F), temperature source Oral, resp. rate 18, height 1.854 m (6' 1 ), weight 84.1 kg (185 lb 8 oz), SpO2 97%. Admission Weight: Weight: 84.1 kg (185 lb 8 oz) Labs: Lab Results Component Value Date WBC 8.32 04/23/2025 HGB 8.4 (L) 04/23/2025 HCT 25.4 (L) 04/23/2025 MCV 99.2 (H) 04/23/2025 PLT 255 04/23/2025 Lab Results Component Value Date GLUCOSE 89 04/23/2025 CALCIUM 7.5 (L) 04/23/2025 NA 139 04/23/2025 K 3.5 04/23/2025 CO2 26 04/23/2025 CL 107 04/23/2025 BUN 30 (H) 04/23/2025 CREATININE 2.11 (H) 04/23/2025 Lab Results Component Value Date PSA 1.4 09/21/2024 Imaging: ECG 12 lead Normal sinus rhythm Prolonged QT Abnormal ECG When compared with ECG of 31-MAR-2025 15:45, Borderline criteria for Inferior infarct are no longer Present Nonspecific T wave abnormality now evident in Lateral Confirmed by Hayden Smith ([id number]) on 04/10/2025 9:02:14 PM US KIDNEY TRANSPLANT W DOPPLER Narrative: Renal transplant ultrasound HISTORY: Decreased urine output COMPARISON: 04/05/2025 FINDINGS: Right renal transplant measures 13.1 cm. Cortical thickness preserved. Simple renal cyst measuring 1.2 cm. No peritransplant small anechoic peritransplant fluid collection measuring 3.0 x 1.3 x 7.4 cm (previously 1.2 x 0.9 x 3.8 cm). Partially visualized transplant ureteral stent. No collecting system dilatation. Color and spectral Doppler analysis of transplant kidney performed. Intrarenal resistive indices measure 0.58-0.77. Main transplant artery and vein are patent with normal waveforms. Peak systolic velocity in the main renal artery measures 193 cm/s. Impression: * No collecting system dilatation. * Simple appearing peritransplant fluid collection measuring 3.0 x 1.3 x 7.4 cm is slightly larger than on previous study likely representing postoperative seroma or hematoma. This is not exerting mass effect upon the underlying transplant kidney. * Small simple renal cyst. Electronically signed: Michel Valentine MD. Assessment: Alberto Waller is a 69 y.o.male with BPH with urinary retention Active Problem List Encounter Diagnoses Name Primary? Benign prostatic hyperplasia with urinary retention Yes End stage renal disease (CMS/HCC) Plan: BPH/ urinary retention: -On 04/16/2025 prescribed Flomax 0.8mg QAM, finasteride 5 mg daily, -rashid catheter remains in place, failed prior trial of void x 2 -Patient is very hesitant to remove Rashid catheter secondary to difficult placement and pain. -Requesting catheter remain in place short-term hoping medications will improve chances of successful trial of void. - patient reports prior to transplant was experiencing nocturia 1-2 times a night, urinated every 2-3 hours -PSA 1.4 on 09/21/24 -On 04/16/2025 prescribed Flomax 0.8mg QAM, finasteride 5 mg daily, continue - Follow-up on 05/10/[address] Tan for cystoscopy and trial of void - Encouraged to call clinic prior to follow-up appointment any concerns - if patient returns prior to 05/10/2025 and fails trial of void will teach,Intermittent straight catheterization 2. ESRD- S/P -End-stage renal disease secondary to hypertensive nephrosclerosis who underwent donor Kidney transplant to the right iliac fossa on 03/31/2025 (Kidney), -Following closely with transplant clinic Odette Duarte [facility] Urology Advanced Practice Provider [1] Past Medical History: Diagnosis Date Anemia in chronic kidney disease (CKD) CKD (chronic kidney disease) stage 5, GFR less than 15 ml/min ([facility]) Diverticular disease s/p colectomy 2015 Gout History of DVT (deep vein thrombosis) proximal vein left leg (from distal calf to groin, 07/2021, was to be on lifelong warfarin but stopped after 05/2022 GI bleed) Hypertensive disorder Lung nodule seen on imaging study NSAID long-term use h/o Proteinuria Recurrent sinusitis Recurrent sinusitis Renal cyst, left Secondary hyperparathyroidism of renal origin Vitamin D deficiency [2] Past Surgical History: Procedure Laterality Date COLECTOMY [...] to get past 40 cm SPLENECTOMY, TOTAL [3] Allergies Allergen Reactions Shellfish Derived Nausea And Vomiting Vomiting Amlodipine Swelling Leg edema [4] Current Outpatient Medications: bumetanide (Bumex) 1 mg tablet, Take 1 tablet (1 mg) by mouth in the morning., Disp: 30 tablet, Rfl: 0 calcium carbonate (Tums) 200 mg calcium (500 mg) chewable tablet, Chew 3 tablets (1,500 mg) two times daily. Without food, Disp: 180 tablet, Rfl: 11 carvedilol (Coreg) 25 mg tablet, 25 mg with breakfast and with evening meal., Disp: , Rfl: famotidine (Pepcid) 20 mg tablet, Take 1 tablet (20 mg) by mouth at bedtime., Disp: 30 tablet, Rfl:11 finasteride (Proscar) 5 mg tablet, Take 1 tablet (5 mg) by mouth in the morning. Do not crush, chew, or split., Disp: 30 tablet, Rfl: 11 hydrALAZINE (Apresoline) 100 mg tablet, Take 1 tablet (100 mg) by mouth three times daily., Disp: 90 tablet, Rfl: 11 magnesium glycinate 100 mg magnesium capsule, Take 3 capsules (300 mg) by mouth three times daily.,Disp: 270 capsule, Rfl: 11 metroNIDAZOLE (Flagyl) 500 mg tablet, Take 1 tablet (500 mg) by mouth every 12 (twelve) hours for 18 doses., Disp: 18 tablet, Rfl: 0 mycophenolate (Myfortic) 180 mg EC tablet, Take 4 tablets (720 mg) by mouth two times daily., Disp:240 tablet, Rfl: 11 NIFEdipine XL (Procardia XL) 30 mg 24 hr tablet, Take 1 tablet (30 mg) by mouth in the morning. Do not crush, chew, or split., Disp: 30 tablet, Rfl: 11 nystatin (Mycostatin) 100,000 unit/mL suspension, Take 5 mL (500,000 Units) by mouth four times daily. Swish and swallow, Disp: 600 mL, Rfl: 4 pantoprazole (ProtoNix) 40 mg EC tablet, Take 1 tablet (40 mg) by mouth before breakfast. Do not crush, chew, or split., Disp: 30 tablet, Rfl: 0 predniSONE (Deltasone) 10 mg tablet, Take 2 tablets (20 mg) by mouth in the morning., Disp: 60 tablet, Rfl: 11 sod phos di, mono-K phos mono (K Phos Neutral) tablet, Take 1 tablet by mouth two times daily., Disp: , Rfl: sulfamethoxazole-trimethoprim (Bactrim DS) 800-160 mg tablet, Take 1 tablet by mouth 3 (three) times a week. On Wednesday, Wednesday, and Wednesday, Disp: 12 tablet, Rfl: 11 tacrolimus ER (Envarsus XR) 0.75 mg tablet ER, Take 2 tablets (1.5 mg) by mouth in the morning. Script total 8.5 mg daily, Disp: 60 tablet, Rfl: 11 tacrolimus ER (Envarsus XR) 1 mg tablet ER, Take 3 tablets (3 mg) by mouth in the morning. Script total 8.5 mg daily, Disp: 90 tablet, Rfl: 11 tacrolimus ER (Envarsus XR) 4 mg tablet ER, Take 1 tablet (4 mg) by mouth in the morning. Script total 8.5 mg daily, Disp: 30 tablet, Rfl: 11 tamsulosin (Flomax) 0.4 mg 24 hr capsule, Take 2 capsules (0.8 mg) by mouth in the morning., Disp: 60 capsule, Rfl: 0 valGANciclovir (Valcyte) 450 mg tablet, Take 1 tablet (450 mg) by mouth in the morning. As directed., Disp: 30 tablet, Rfl: 1 [5] Family History Problem Relation Name Age of Onset Heart disease Father Had pacemaker documented in this encounter Plan of Treatment Upcoming Encounters Date Type Department Care Team (Late st Contact Info) Description 04/30/2025 9:00 AM EDT Follow-Up [facility] [place] [address] [place] [address] 04/30/2025 9:15 AM EDT Appointment [facility] [address] [place] [phone] 05/10/2025 1:00 PM EDT Procedure Visit [facility] [place] [address] [place] [address] 05/10/2025 1:30 PM EDT Appointment [facility] 2A [place] [address] documented as of this encounter Visit Diagnoses Diagnosis Benign prostatic hyperplasia with urinary retention- Primary End stage renal disease ([facility]) End stage renal disease documented in this encounter Care Teams Joinery Setter Out Relationship Specialty Start Date End Date Abebe Stewart MD [address] [place] [address], [address] [place], [place] [id number] PCP - General Internal Medicine 09/21/24 [place] [address] Consulting Physician Urology 04/07/25 documented as of this encounter
--- OUTSIDE RECORDS SUMMARY | 2025-04-23 11:40 | XMS_ITS | Encounter Summary ---
Author Organization [facility] Address [address] [address] Care Team Providers Care Blood Bank Calendar Control Clerk Name Role Phone Abebe Stewart MD Primary Care Provider [phone] Abebe Tan MD Unavailable Encounter Details Date Type Department Care Team (Late st Contact Info) Description 04/23/2025 11:40 AM EDT Lab [facility] Outpatient Draw Station [address] [place] [phone] Encounter for aftercare following kidney transplant; Immunosuppressive management encounter following kidney transplant Social History Tobacco Use Types Packs/Day Years Used Date Smoking Tobacco: Never Smokeless Tobacco: Never Alcohol Use Standard Drinks/Week Comments Yes 0 (1 standard drink = 0.6 oz pur e alcohol) rare [facility] Utilities Answer Date Recorded In the past 12 months has [facility] [employer], gas, oil, or water [employer] threatened to shut off services in your [...] any clubs o r organizations such as alevism groups, unions, fraternal or athletic groups, or [...] Recorded Patient Health Questionnaire-2 Score 0 04/23/2025 [facility] Questionnaire Answer Date Recorded [...] any time in the past 12 m [facility], were you homeless or living in a alf (including now)? No 04/05/2025 Hunger Vital Sign [...] Info) Description 04/30/2025 9:00 AM EDT Follow-Up [facility] Transplant [address] [place] [phone] Jayjay Robin MD [address] [place] [address] 04/30/2025 9:15 AM EDT Appointment [facility] 2A [place] [phone] 05/10/2025 1:00 PM EDT Procedure Visit [facility] Urology [address] [place] [phone] Abebe Tan MD [address] [place] [phone] 05/10/2025 1:30 PM EDT Appointment [facility] 2A [place] [address] documented as of this encounter Procedures Procedure Name Priority Date/Time Associated Diagnosis Comments [facility] Routine 04/23/2025 11:36 AM EDT Encounter for aftercare following kidney transplant Immunosuppressive management encounter following kidney transplant documented in this encounter [...] refer to the complete report via the [employer] [facility] Provider Portal or contact your [employer] Nurse Coordinator at [phone] PATIENT TEST HISTORY See Notes 04/27/2025 3:13 PM EDT [facility] Comment: Date: 04-23-2025, Value: dd-cfDNA% 1.19%, dd-cfDNA Quantity: 53 cp/ml, Total cfDNA: - Date: 04-23-2025, Value: dd-cfDNA% 1.19%, dd-cfDNA Quantity: 53 cp/ml, Total cfDNA: - Increased risk for rejection Test performed by dough. : [address] [place] [address]. CLIA ID #[id number]: CLIA Atomizer Assembler: Imtiaz Wade, Ph.D., [facility] Blood Venous blood specimen / Unknown Venipuncture / Unknown 04/23/2025 11:36 AM EDT 04/23/2025 12:03 PM EDT us Jayjay Robin MD LAB MOLECULAR DIAGNOSTICS ORDERA BLES Final Result [facility] [address] [place] [address] documented in this encounter Visit Diagnoses Diagnosis Encounter for aftercare following kidney transplant Immunosuppressive management encounter following kidney transplant Encounter for long-term (current) use of other medications documented in this encounter Care Teams Blood Bank Calendar Control Clerk Relationship Specialty Start Date End Date Abebe Stewart MD [facility], [address] [place] [address] PCP - General Internal Medicine 09/21/24 Abebe Tan MD [address] [place] [phone] Consulting Physician Urology 04/07/25 documented as of this encounter
--- OUTSIDE RECORDS SUMMARY | 2025-04-26 07:57 | XMS_ITS | Encounter Summary ---
Author Organization The [facility] Address [address] [place] [address] Care Team Providers Care Chainstitch Pants Outseamer Name Role Phone Abebe Stewart MD Primary Care Provider [phone] Abebe Tan MD Unavailable Reason for Visit * Reason Comments Anemia Non-oncology Infusion * Episode Based Medications (Routine) - Closed Specialty Diagnoses / Procedures Referred By Contac t Referred To Contact Diagnoses Kidney transplanted Jayjay Robin MD [address] [place] [address] Phone: tel: fax: Jayjay Robin MD [address] [place] [address] Phone: tel: fax: Referral ID Status Reason Start Date Expiration Date Visits Re quested Visits Authorized [id number] Closed 04/26/2025 04/26/2026 1 1 Encounter Details Date Type Department Care Team (Latest Contact Info) Description 04/26/2025 7:57 AM EDT - 04/26/2025 11:59 PM EDT Hospital Encounter [facility] Infusion [address] [place] [address] Kidney transplanted (Primary Dx); Anemia in chronic kidney disease, unspecified CKD stage; Encounter for aftercare following kidney transplant Discharge Disposition: Home or Self Care () Social History Tobacco Use Types Packs/Day Years Used Date Smoking Tobacco: Never Smokeless Tobacco: Never Alcohol Use Standard Drinks/Week Comments Yes 0 (1 standard drink = 0.6 oz pur e alcohol) rare [facility] Utilities Answer Date Recorded In the past 12 months has th e electric, gas, oil, or water company [...] week 04/05/2025 How often do you attend [facility] or restorationist services? Never 04/05/2025 Do you belong to any clubs o r organizations such as restorationist groups, unions, fraternal or athletic groups, or [...] Recorded Patient Health Questionnaire-2 Score 0 04/23/2025 [facility] - Occupational Stress Questionnaire Answer Date [...] were you homeless or living in a jail (including now)? No 04/05/2025 Hunger Vital Sign [...] AM EST documented as of this encounter Medications at Time of Discharge bumetanide (Bumex) 1 mg tabletIndications: Encounter for aftercare following kidney transplant,Barry al lower extremity edema Take 1 tablet (1 mg) by mouth in the morning. 30 tablet 04/16/2025 calcium carbonate (Tums) 200 mg calcium (500 mg) chewable tabletIndications: Encounter for aftercare following kidney transplant,Hypocal cemia Chew 3 tablets (1,500 mg) two times daily. Without food 180 tablet 11 04/23/2025 carvedilol (Coreg) 25 mg tablet 25 mg with breakfast and with evening meal. 05/23/2024 famotidine (Pepcid) 20 mg tabletIndications: Gastroesophageal reflux disease without esophagitis Take 1 tablet (20 mg) by mouth at bedtime. 30 tablet 11 04/23/2025 finasteride (Proscar) 5 mg tabletIndications: Benign prostatic hyperplasia with urinary retention Take 1 tablet (5 mg) by mouth in the morning. Do not crush, chew, or split. 30 tablet 04/16/2025 hydrALAZINE (Apresoline) 100 mg tabletIndications: Primary hypertension Take 1 tablet (100 mg) by mouth three times daily. 90 tablet 04/20/2025 magnesium glycinate 100 mg magnesium capsuleIndications :Hypomagnesemia Take 3 capsules (300 mg) by mouth three times daily. 270 capsule 04/23/2025 mycophenolate (Myfortic) 180 mg EC tabletIndications: Immunosuppressive management encounter following kidney transplant Take 4 tablets (720 mg) by mouth two times daily. 240 tablet 04/13/2025 NIFEdipine XL (Procardia XL) 30 mg 24 hr tabletIndications: Primary hypertension Take 1 tablet (30 mg) by mouth in the morning. Do not crush, chew, or split. 30 tablet 04/23/2025 nystatin (Mycostatin) 100,000 unit/mL suspensionIndicati ons:Encounter for aftercare following kidney transplant Take 5 mL (500,000 Units) by mouth four times daily. Swish and swallow 600 mL 4 04/13/2025 pantoprazole (ProtoNix) 40 mg EC tabletIndications: Abdominal pain, unspecified abdominal location Take 1 tablet (40 mg) by mouth before breakfast. Do not crush, chew, or split. 30 tablet 04/23/2025 predniSONE (Deltasone) 10 mg tabletIndications: Immunosuppressive management encounter following kidney transplant Take 2 tablets (20 mg) by mouth in the morning. 60 tablet 04/23/2025 sod phos di, mono-K phos mono (K Phos Neutral) tabletIndications: Encounter for aftercare following kidney transplant,Hypopho sphatemia Take 1 tablet by mouth two times daily. 04/16/2025 sulfamethoxazole-t rimethoprim (Bactrim DS) 800-160 mg tabletIndications: Immunosuppressive management encounter following kidney transplant Take 1 tablet by mouth 3 (three) times a week. On Wednesday, Wednesday, and Wednesday 12 tablet 11 04/13/2025 tacrolimus ER (Envarsus XR) 0.75 mg tablet ERIndications:Immu nosuppressive management encounter following kidney transplant Take 2 tablets (1.5 mg) by mouth in the morning. Script total 8.5 mg daily 60 tablet 11 04/13/2025 tacrolimus ER (Envarsus XR) 1 mg tablet ERIndications:Immu nosuppressive management encounter following kidney transplant Take 3 tablets (3 mg) by mouth in the morning. Script total 8.5 mg daily 90 tablet 11 04/13/2025 tacrolimus ER (Envarsus XR) 4 mg tablet ERIndications:Immu nosuppressive management encounter following kidney transplant Take 1 tablet (4 mg) by mouth in the morning. Script total 8.5 mg daily 30 tablet 11 04/13/2025 tamsulosin (Flomax) 0.4 mg 24 hr capsuleIndications :Urinary retention Take 2 capsules (0.8 mg) by mouth in the morning. 60 capsule 04/12/2025 valGANciclovir (Valcyte) 450 mg tabletIndications: Immunosuppressive management encounter following kidney transplant Take 1 tablet (450 mg) by mouth in the morning. As directed. 30 tablet 1 04/13/2025 documented as of this encounter Plan of Treatment Upcoming Encounters Date Type Department Care Team (Late st Contact Info) Description 04/30/2025 9:00 AM EDT Follow-Up [facility] Transplant [address] [place] [id number] [place] [address] 04/30/2025 9:15 AM EDT Appointment [facility] [id number] 05/10/2025 1:00 PM EDT Procedure Visit [facility] [place] [address] [place] [address] 05/10/2025 1:30 PM EDT Appointment [facility] [address] documented as of this encounter Visit Diagnoses Diagnosis Kidney transplanted- Primary Kidney replaced by transplant Anemia in chronic kidney disease, unspecified CKD stage Encounter for aftercare following kidney transplant documented in this encounter Administered Medications Inactive Administered Medications - up to 3 most recent administrations Medication Order MAR Action Action Date Dose Rate Site basiliximab (Simulect) 20 mg in sodium chloride 0.9 % 55 mL IVPB 20 mg, intravenous, at 120 mL/hr, Administer over 30 Minutes, Once, On Lara 04/26/25 at 0815, For 1 doseIndications:Kidney transplanted New Bag 04/26/2025 8:36 AM EDT 20 mg 120 mL/hr epoetin steve-epbx (Retacrit) injection (albumin free) 10,000 Units 10,000 Units, subcutaneous, Once, On Lara 04/26/25 at 0815, For 1 dose, Indications: anemiaIndications:anem ia Given 04/26/2025 8:31 AM EDT 10,000 Units Left Upper Arm (Back) documented in this encounter Care Teams Chainstitch Pants Outseamer Relationship Specialty Start Date End Date Abebe Stewart MD [address] [place] [address], [address] [place] [address] PCP - General Internal Medicine 09/21/24 [place] [address] Consulting Physician Urology 04/07/25 documented as of this encounter
--- OUTSIDE RECORDS SUMMARY | 2025-04-26 09:05 | XMS_ITS | Encounter Summary ---
Author Organization [facility] Address [address] [place] [address] Care Team Providers Care Piping Supervisor Name Role Phone Abebe Stewart MD Primary Care Provider [phone] Abebe Tan MD Unavailable Encounter Details Date Type Department Care Team (Late st Contact Info) Description 04/26/2025 9:05 AM EDT Lab [facility] Outpatient Draw Station [address] [place] [phone] Encounter for aftercare following kidney transplant; Transplanted kidney; Encounter for long-term (current) use of medications; Immunosuppressive management encounter following kidney transplant Social History Tobacco Use Types Packs/Day Years Used Date Smoking Tobacco: Never Smokeless Tobacco: Never Alcohol Use Standard Drinks/Week Comments Yes 0 (1 standard drink = 0.6 oz pur e alcohol) rare [facility] Utilities Answer Date Recorded In the past 12 months [facility], gas, oil, or water [employer] threatened to shut off services in your [...] often do you attend chur ch or baptism services? Never 04/05/2025 Do you belong to any clubs o r organizations such as anabaptist groups, unions, fraternal or athletic groups, or [...] Recorded Patient Health Questionnaire-2 Score 0 04/23/2025 [facility] - Occupational Stress [...] any time in the past 12 m [facility], were you homeless or living in a senior living (including now)? No 04/05/2025 Hunger Vital Sign [...] AM EST documented as of this encounter Plan of Treatment Upcoming Encounters Date Type Department Care Team (Late st Contact Info) Description 04/30/2025 9:00 AM EDT Follow-Up [facility] Transplant [address] [place] [phone] Jayjay Robin MD [address] [place] [address] 04/30/2025 9:15 AM EDT Appointment [facility] 2A [place] [address] 05/10/2025 1:00 PM EDT Procedure Visit [facility] Urology [address] [place] [phone] Abebe Tan MD [address] [place] [address] 05/10/2025 1:30 PM EDT Appointment [facility] 2A [place] [address] Pending Results Name Type Priority Associated Diagnoses Date /Time Leela Lu (Single) Lab Routine Encounter for aftercare following kidney transplant Immunosuppressive management encounter following kidney transplant 04/26/2025 8:06 AM EDT Donor specific antibody Lab Routine Encounter for aftercare following kidney transplant Immunosuppressive management encounter following kidney transplant 04/26/2025 8:06 AM EDT Single antigen class I Lab Routine Encounter for aftercare following kidney transplant Immunosuppressive management encounter following kidney transplant 04/26/2025 8:06 AM EDT Single antigen class II Lab Routine Encounter for aftercare following kidney transplant Immunosuppressive management encounter following kidney transplant 04/26/2025 8:06 AM EDT documented as of this encounter Procedures Procedure Name Priority Date/Time Associated Diagnosis Comments CBC WITH AUTO DIFFERENTIAL Routine 04/26/2025 8:06 AM EDT Encounter for aftercare following kidney transplant Transplanted kidney Encounter for long-term (current) use of medications TACROLIMUS LEVEL Routine 04/26/2025 8:06 AM EDT Encounter for aftercare following kidney transplant Transplanted kidney Encounter for long-term (current) use of medications CBC AND DIFFERENTIAL Routine 04/26/2025 8:06 AM EDT Encounter for aftercare following kidney transplant Transplanted kidney Encounter for long-term (current) use of medications URIC ACID Routine 04/26/2025 8:06 AM EDT Encounter for aftercare following kidney transplant Transplanted kidney Encounter for long-term (current) use of medications PHOSPHORUS Routine 04/26/2025 8:06 AM EDT Encounter for aftercare following kidney transplant Transplanted kidney Encounter for long-term (current) use of medications MAGNESIUM Routine 04/26/2025 8:06 AM EDT Encounter for aftercare following kidney transplant Transplanted kidney Encounter for long-term (current) use of medications BILIRUBIN, DIRECT Routine 04/26/2025 8:0 6 AM EDT Encounter for aftercare following kidney transplant Transplanted kidney Encounter for long-term (current) use of medications COMPREHENSIVE METABOLIC PANEL Routine 04/26/2025 8:06 AM EDT Encounter for aftercare following kidney transplant Transplanted kidney Encounter for long-term (current) use of medications documented in this encounter Results * Bilirubin, direct (04/26/2025 8:06 AM EDT) Bilirubin, Direct 0.1 0 - 0.2 mg/dL 04/26/2025 9:31 AM EDT [facility] Blood Venous blood specimen / Unknown Venipuncture / Unknown 04/26/2025 8:06 AM EDT 04/26/2025 8:54 AM EDT us Grazyna Briseno PRE[facility] LAB BLOOD ORDERABLES Final Result [facility] [address] [id number] * (ABNORMAL) CBC auto differential (04/26/2025 8:06 AM EDT) Pathologist [facility] Auto WBC 8.22 4.00 - 10.60 10*3/uL 04/26/2025 9:02 AM EDT [facility] RBC 2.64(L) 4.20 - 5.70 10*6/uL 04/26/2025 9:02 AM EDT [facility] Hemoglobin 8.5(L) 13.0 - 17.0 g/dL 04/26/2025 9:02 AM EDT [facility] Hematocrit 26.1(L) 39.0 - 50.0 % 04/26/2025 9:02 AM EDT [facility] MCV 98.9(H) 82.0 - 98.0 fL 04/26/2025 9:02 AM EDT [facility] MCH 32.2 27.0 - 33.0 pg 04/26/2025 9:02 AM EDT [facility] MCHC 32.6 32.0 - 35.0 g/dL 04/26/2025 9:02 AM EDT [facility] RDW 18.0(H) 11.5 - 15.0 % 04/26/2025 9:02 AM EDT [facility] Neutrophils % 66.4 40.0 - 72.0 % 04/26/2025 9:02 AM EDT [facility] Lymphocytes % 22.4 20.0 - 45.0 % 04/26/2025 9:02 AM [facility] Monocytes % 9.5 5.0 - 12.0 % 04/26/2025 9:02 AM [facility] Eosinophils % 0.2 0.0 - 6.0 % 04/26/2025 9:02 AM [facility] Basophils % 0.2 0.0 - 1.0 % 04/26/2025 9:02 AM [facility] Neutrophils Absolute 5.45 1.60 - 7.60 10*3/uL 04/26/2025 9:02 AM [facility] Lymphocytes Absolute 1.84 1.20 - 4.00 10*3/uL 04/26/2025 9:02 AM [facility] Monocytes Absolute 0.78 0.10 - 1.00 10*3/uL 04/26/2025 9:02 AM [facility] Eosinophils Absolute 0.02 0.00 - 0.50 10*3/uL 04/26/2025 9:02 AM [facility] Basophils Absolute 0.02 0.00 - 0.20 10*3/uL 04/26/2025 9:02 AM [facility] Platelets 298 150 - 400 10*3/uL 04/26/2025 9:02 AM [facility] nRBC % 0.0 0 % 04/26/2025 9:02 AM [facility] Immature Granulocytes % 1.3(H) 0.0 - 1.0 % 04/26/2025 9:02 AM [facility] Immature Granulocytes Absolute 0.11 0.00 - 0.20 10*3/uL 04/26/2025 9:02 AM [facility] Blood Venous blood specimen / Unknown Venipuncture / Unknown 04/26/2025 8:06 AM EDT 04/26/2025 8:55 AM EDT Grazyna Briseno [facility] LAB BLOOD ORDERABLES Final Result [facility] [address] [place] [address] * Tacrolimus level (04/26/2025 8:06 AM EDT) Tacrolimus Lvl 5.8 5.0 - 20.0 ng/mL 04/26/2025 1:23 PM EDT [facility] Comment:The [employer] Diabetes Tacrolimus assay is a delayed one-step immunoassay for the quantitative determination of tacrolimus in human whole blood using the chemiluminescent microparticle immunoassay (CMIA) technology with flexible assay protocols, referred to as Chemiflex. Blood Venous blood specimen / Unknown Venipuncture / Unknown 04/26/2025 8:06 AM EDT 04/26/2025 8:55 AM EDT Grazyna Finn CNP LAB BLOOD ORDERABLES Final Result Performing Organization Address City/[facility]/ZIP Co de Phone Number [facility] [address] [place] [address] * (ABNORMAL) Uric acid (04/26/2025 8:06 AM EDT) Uric Acid 7.7(H) 4.4 - 7.6 mg/dL 04/26/2025 9:34 AM EDT [facility] Blood Venous blood specimen / Unknown Venipuncture / Unknown 04/26/2025 8:06 AM EDT 04/26/2025 8:54 AM EDT [facility] Final Result [facility] [address] [place] [address] * (ABNORMAL) Phosphorus (04/26/2025 8:06 AM EDT) Phosphorus 2.4(L) 2.5 - 5.0 mg/dL 04/26/2025 9:31 AM EDT [facility] Blood Venous blood specimen / Unknown Venipuncture / Unknown 04/26/2025 8:06 AM EDT 04/26/2025 8:54 AM EDT [facility] BLOOD ORDERABLES Final Result [facility]) [address] [place] [address] * (ABNORMAL) Magnesium (04/26/2025 8:06 AM EDT) Pathologist [facility] Magnesium 1.8(L) 1.9 - 2.7 mg/dL 04/26/2025 9:31 AM EDT [facility] Blood Venous blood specimen / Unknown Venipuncture / Unknown 04/26/2025 8:06 AM EDT 04/26/2025 8:54 AM EDT Grazyna [facility] LAB BLOOD ORDERABLES Final Result Performing Organization Address City/[facility]/ZIP Co de Phone Number [facility]) [address] [place] [id number] * (ABNORMAL) Comprehensive metabolic panel (04/26/2025 8:06 AM EDT) Sodium 135(L) 136 - 145 mmol/L 04/26/2025 9:31 AM EDT [facility] Potassium 3.7 3.5 - 5.1 mmol/L 04/26/2025 9:31 AM EDT [facility] Chloride 100 98 - 107 mmol/L 04/26/2025 9:31 AM EDT [facility] CO2 28 21 - 31 mmol/L 04/26/2025 9:31 AM [facility] Anion Gap 11 7 - 20 mmol/L 04/26/2025 9:31 AM [facility] BUN 35(H) 7 - 25 mg/dL 04/26/2025 9:31 AM [facility] Creatinine 2.64(H) 0.70 - 1.30 mg/dL 04/26/2025 9:31 AM [facility] BUN/Creatinine Ratio 13.3 04/03 9:31 AM [facility] Glucose 93 70 - 100 mg/dL 04/26/2025 9:31 AM [facility] Calcium 8.1(L) 8.6 - 10.3 mg/dL 04/26/2025 9:31 AM [facility] AST 11(L) 13 - 39 U/L 04/26/2025 9:31 AM [facility] ALT (SGPT) 8 7 - 52 U/L 04/26/2025 9:31 AM [facility] Alkaline Phosphatase 91 34 - 104 U/L 04/26/2025 9:31 AM [facility] Total Protein 5.3(L) 6.0 - 8.3 g/dL 04/26/2025 9:31 AM [facility] Albumin 3.3(L) 3.5 - 5.7 g/dL 04/26/2025 9:31 AM [facility] Total Bilirubin 0.5 0.3 - 1.0 mg/dL 04/26/2025 9:31 AM [facility] eGFR 25.3(L) >60.0 mL/min/1. 73m*2 04/26/2025 9:31 AM [facility] Comment:The [facility] s estimated glomerular filtration rate (eGFR) will [...] blood specimen / Unknown Venipuncture / Unknown 04/26/2025 8:06 AM EDT 04/26/2025 8:54 AM EDT us Grazyna rBiseno [facility] LAB BLOOD ORDERABLES Final Result [facility] [address] [place] [address] documented in this encounter Visit Diagnoses Diagnosis Encounter for aftercare following kidney transplant Transplanted kidney Kidney replaced by transplant Encounter for long-term (current) use of medications Encounter for long-term (current) use of other medications Immunosuppressive management encounter following kidney transplant Encounter for long-term (current) use of other medications documented in this encounter Care Teams Piping Supervisor Relationship Specialty Start Date End Date Abebe Stewart MD [address] [place] [address], [address] [place], [place] [id number] PCP - General Internal Medicine 09/21/24 Abebe Tan MD [address] [place] [phone] Consulting Physician Urology 04/07/25 documented as of this encounter
[2025-04-28] VITALS (36 sets, daily range): BP systolic 105–144; BP diastolic 59–81; PULSE 66–111; TEMP 36.8; O2SAT 91–96; BMI 34.6
--- NOTE | 2025-04-28 08:37 | CT_ITS ---
The [address] [address] Patient Name: CHRISTAL SUH MRN: [id number] date: 1955 Sex: M Assigned Patient Location: ED.MAIN Current Patient Location: Accession/Order Number: [id number] Exam Date: 04/28/2025 08:45 Report Date: 04/28/2025 09:03 At the request of: KENTRELL KIRBY MD Procedure: CT stroke head/brain wo con CT stroke head/brain wo con 04/28/2025 8:59 AM SIGNS AND SYMPTOMS: Speech difficulty, right-sided facial droop TECHNIQUE:Multi-detector CT axial slices of the brain were obtained without IV contrast. CT was performed with one or more of the following dose reduction techniques: Automated exposure control, adjustment of the mA and/or kV according to patient size, or use of iterative reconstruction technique. COMPARISON: None. FINDINGS: There is no shift of the midline structures, acute intracranial bleeding, mass effects, or evidence of acute ischemia. There is age-related cortical atrophy. 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 There is age-related cortical atrophy. This periventricular white matter hypoattenuation. Atherosclerotic changes are noted in the intracranial segments of the internal carotid arteries. The ventricular system is normal in size. The brainstem and the cerebellum are unremarkable. The visualized intraorbital contents, the visualized paranasal sinuses, and the infratemporal soft tissues show no acute abnormality. The osseous structures in the skull base and the calvarium show no abnormality. CT/CT stroke head/brain wo con IMPRESSION: No acute intracranial pathology. Chronic age-related neurodegenerative changes are noted as above. 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 Impression dictated by: Tim Cole M.D. 04/28/2025 9:03 AM Dictation Location: [place] [address] Electronically authenticated by: [id number] Y Date: 04/28/2025 09:03
--- NOTE | 2025-04-28 08:44 | XR_ITS ---
The [place] [id number] Patient Name: CHRISTAL SUH MRN: [id number] date: 1955 Sex: M Assigned Patient Location: ED.MAIN Current Patient Location: ED.MAIN Accession/Order Number: [id number] Exam Date: 04/28/2025 09:50 Report Date: 04/28/2025 10:19 At the request of: KENTRELL KIRBY MD Procedure: XR chest 1V XR chest 1V 04/28/2025 9:59 AM SIGNS AND SYMPTOMS: ^cva ^Y PROTOCOL: Frontal radiograph of the chest COMPARISON: None FINDINGS: The trachea is midline. The heart and mediastinal structures are within normal limits. Calcified granulomas are noted in the lateral aspect of the right mid to upper chest. The lung parenchyma is clear, otherwise. The bony thorax is intact. XR/XR chest 1V IMPRESSION: No acute cardiopulmonary pathology. Impression dictated by: Tim Cole M.D. 04/28/2025 10:19 AM Dictation Location: [place] [address] Electronically authenticated by: [id number] Y Date: 04/28/2025 10:19
--- NOTE | 2025-04-28 08:44 | ECG_ITS ---
The [facility] Test Date: 2025-04-28 Pat Name: CHRISTAL SUH Department: Room: - Gender: Male Manager Fitness: : 1955 Requested By: [id number] Order Number: [id number] Reading MD: AMALIA HUGGINS M.D. Measurements Intervals [place] Rate: 75 P: 60 OR: 140 QRS: 30 QRSD: 90 T: 58 QT: 414 QTc: 443 Interpretive Statements 1100 Sinus rhythm 9110 normal ECG No previous ECG available for comparison Electronically Signed On 04-29-2025 10:26:05 EDT by AMALIA HUGGINS M.D.
--- OUTSIDE RECORDS SUMMARY | 2025-04-28 08:45 | XMS_ITS | Encounter Summary ---
Author Organization [employer] [facility] tem Address [id number] [address] [place] [address] Care Team Providers Care Piano Instructor Name Role Phone Abebe Stewart MD Primary Care Provider [phone] Encounter Details Date Type Department Care Team (Late st Contact Info) Description 10/09/2021 Orders Only [facility] Internal Medicine/Pediatrics [address] [place] [id number] Sumi [place] RMA Routine general medical examination at a health care facility Social History Tobacco Use Types Packs/Day Years Used Date Smoking Tobacco: Never Smokeless Tobacco: Never Alcohol Use Standard Drinks/Week Comments Not Currently 0 (1 standard drink = 0.6 oz pur e alcohol) AUDIT-C Answer Date Recorded Q1: How often do you have a drink containing alc ohol? Never 09/12/2020 Q2: How many drinks containi ng alcohol do you have on a typical day when you are drinking? 1 or 2 09/12/2020 Q3: How often do you have six or more drinks on one occasion? Never 09/12/2020 PHQ-2 Answer Date Recorded Total Score 0 09/12/2020 Childcare Answer Date Recorded Childcare Unknown 01/11/2019 Employment Answer Date Recorded Employment Unknown 01/11/2019 Purpose - Life Answer Date Recorded Purpose and direction in life Unknown Sex and Gender Information Value Date Recorded Sex Assigned at Not on file Legal Sex Male 11:39 AM EDT Gender Identity Not on file Sexual Orientation Not on file COVID-19 Exposure Response Date Recorded In the last 10 days, have yo u been in contact with someone who was confirmed or suspected to have Coronavirus/COVID-19? No / Unsure 10/09/2021 8:55 AM EST documented as of this encounter Plan of Treatment Not on file documented as of this encounter Goals Goal Patient Goal Type Associated Problems Recent Progress Patient-Stated? Author Home General Yes Katharina Adorno LSW Note: Evaluation of progress towards goal: Safe dc transition from hospital to home pending clinical course. documented as of this encounter Procedures Procedure Name Priority Date/Time Associated Diagnosis Comments PROSTATIC SPECIFIC ANTIGEN SCREEN Routine 10/07/2021 Routine general medical examination at a health care facility LIPID PROFILE Routine 10/07/2021 Routine general medical examination at a [facility] COMPREHENSIVE METABOLIC PANEL Routine 10/07/2021 Routine general medical examination at a [facility] facility documented in this encounter Results * Comprehensive metabolic panel (10/07/2021) Blood 10/07/2021 Abebe Stewart MD LAB BLOOD ORDERABLES Final Re sult Performing Organization Address [facility] Co de Phone Number [facility] * Lipid panel (10/07/2021) External Cholesterol 173 150 - 200 [facility] External Cholesterol:Hdl 3.7 1.0 - 5.0 [facility] External Hdl Cholesterol 47 >=39 [facility] External Ldl (Calc) 112 <=130 [facility] External Triglycerides 69 27 - 150 [facility] External Very Low Lipoprotein 14 0 - 30 [facility] Blood 10/07/2021 Abebe Stewart MD LAB BLOOD ORDERABLES Final Re sult [facility] * Prostatic specific antigen screen (10/07/2021) Psa 1.40 0.00 - 4.00 [facility] 10/07/2021 Abebe Stewart MD LAB BLOOD ORDERABLES Final Re sult [facility] documented in this encounter Visit Diagnoses Diagnosis Routine general medical examination at a health care facility documented in this encounter Additional Health Concerns Assessment Noted Time PHQ-9 Depression Total Score: 0 09/12/19 21 9:02 AM EST documented as of this encounter Care Teams Piano Instructor Relationship Specialty Start Date End Date Abebe Stewart MD [address] [place] [address], [address] [place] [address] PCP - General Pediatrics 05/21/17 documented as of this encounter
--- OUTSIDE RECORDS SUMMARY | 2025-04-28 08:45 | XMS_ITS | Patient Health Record ---
Author Organization [facility] [place] [facility] [place] Address [address] [place] [address] Care Team Providers Care Mortgage Analyst Name Role Phone Abebe Stewart MD Primary Care Provider Abebe Nazario Unavailable [phone] Allergies Allergen (clinical drug ingredient) Drug/Non Drug Allergy documented on EMR Reaction Allergy Type Onset Date Status amlodipine amLODIPine Unknown Drug Allergy Activ e fish oils Fish Oil Unknown Drug Allergy Active Shellfish (FN) Shellfish-derived Products Unknown Drug Allergy Active Reason For Referral No Information Medications Medication SIG (Take, Route, Frequency, Duration) Notes Start Date End Date Status Cholecalciferol 25 MCG (1000 UT) 1 capsule Orally Once a day; Duration: 90 days 04/10/2024 Active hydrALAZINE HCl 50 MG 1 tablet with food Orally TID; Duration: 90 days Active Carvedilol 25 MG 1 tablet with food Orally Twice a day Active Problems Problem Type SNOMED Code ICD Code Onset Dates Problem Status W/U Status Risk Notes Problem Essential hypertension (54045236) Essential (primary) hypertension (I10) Active confirmed Problem Primary hyperparathyroidism (25498362) Primary hyperparathyroidism (E21.0) Active confirmed Problem Chronic kidney disease stage 5 (050142685) Chronic kidney disease, stage 5 (N18.5) Active confirmed Problem Chronic kidney disease stage 4 (562149117) Chronic kidney disease (CKD) stage G4/A1, severely decreased glomerular filtration rate (GFR) between 15-29 mL/min/1.73 square meter and albuminuria creatinine ratio less than 30 mg/g (N18.4) Active confirmed Encounters Encounter Location Date Provider Diagnosis [facility] [place] [address] [place] [address] 05/03/2024 Abebe Tovar Plan Of Treatment Pending Test Test Name Order Date UA (URINALYSIS, COMPLETE) 04/10/2024 UA (URINALYSIS, COMPLETE) 11/23/2023 UA (URINALYSIS, COMPLETE) 03/24/2024 ALBUMIN, BLOOD 11/23/2023 ALBUMIN, BLOOD 03/24/2024 ALBUMIN, BLOOD 04/10/2024 MAGNESIUM 04/10/2024 MAGNESIUM 11/23/2023 MAGNESIUM 03/24/2024 CBC NO DIFF 03/24/2024 CBC NO DIFF 11/23/2023 CBC NO DIFF 04/10/2024 BMP (BASIC MET PANEL - W/GFR) 04/10/2024 BMP (BASIC MET PANEL - W/GFR) 09/07/2023 BMP (BASIC MET PANEL - W/GFR) 11/23/2023 BMP (BASIC MET PANEL - W/GFR) 03/24/2024 MICROALBUMIN with ALB/CREAT RATIO, URINE (MALB)) 03/24/2024 MICROALBUMIN with ALB/CREAT RATIO, URINE (MALB)) 11/23/2023 MICROALBUMIN with ALB/CREAT RATIO, URINE (MALB)) 04/10/2024 PHOSPHORUS 11/23/2023 PHOSPHORUS 04/10/2024 PHOSPHORUS 03/24/2024 PTH INTACT (PARATHYROID HORMONE) 024 PTH INTACT (PARATHYROID HORMONE) 024 PTH INTACT (PARATHYROID HORMONE) 024 URIC ACID 04/10/2024 URIC ACID 11/23/2023 URIC ACID 03/24/2024 VITAMIN D, 25 LEVEL (TOTAL) 03/24/2024 VITAMIN D, 25 LEVEL (TOTAL) 04/10/2024 VITAMIN D, 25 LEVEL (TOTAL) 11/23/2023 Medical (General) History Medical History History ICD Code HTN stage 4 CKD H/O splenectomy
--- OUTSIDE RECORDS SUMMARY | 2025-04-28 08:45 | XMS_ITS | Encounter Summary ---
Author Organization [facility] tem Address [id number] [address] [place] [address] Care Team Providers Care Paper Products Inspector Name Role Phone Abebe Stewart MD Primary Care Provider [phone] Reason for Visit * Reason Comments Med Refill Encounter Details Date Type Department Care Team (Late st Contact Info) Description 10/02/2021 Refill [facility] - DIALYS[facility] [address] [place] [phone] Eren Garcia MD [address] [place], [place] [id number] Social History Tobacco Use Types Packs/Day Years [...] Exposure Response Date Recorded In the last month, have you been in contact with someone who was confirmed or suspected to have Coronavirus / COVID-19? No / Unsure 09/25/2021 8:41 AM EST documented as of this encounter Plan of Treatment Not on file documented as of this encounter Goals Goal Patient Goal Type Associated Problems Recent Progress Patient-Stated? Author Home General Yes Katharina Adorno LSW Note: Evaluation of progress towards goal: Safe dc transition from hospital to home pending clinical course. documented as of this encounter Visit Diagnoses Not on filedocumented in this encounter Additional Health Concerns Assessment Noted Time PHQ-9 Depression Total Score: 0 09/12/19 21 9:02 AM EST documented as of this encounter Care Teams Paper Products Inspector Relationship Specialty Start Date End Date Abebe Stewart MD [address] [place] [address], [address] [place] [address] PCP - General Pediatrics 05/21/17 documented as of this encounter
--- OUTSIDE RECORDS SUMMARY | 2025-04-28 08:45 | XMS_ITS | Clinical Summary ---
Author Organization [employer] tem Address [id number] [address] [place] [address] Care Team Providers [facility] Sales Name Role Phone Abebe Stewart MD Primary Care Provider [phone] Allergies Active Allergy Reactions Criticality Noted Date Comments Amlodipine 06/23/2021 Leg edema Shellfish Derived Vomiting Medium 07/02/2021 Medications carvediloL (COREG) 25 mg tablet Take 1 tablet (25 mg total) by mouth in the morning and 1 tablet (25 mg total) in the evening. Take with meals. 180 tablet 3 4 Active hydrALAZINE (APRESOLINE) 50 mg tablet Take 1 tablet (50 mg total) by mouth in the morning and 1 tablet (50 mg total) before bedtime. 180 tablet 3 4 Active Additional Information Patient taking differently:50 mg oral3 times daily, Morning, Noon, Bedtime, Reported on 03/05/2025 sodium bicarbonate 650 mg tablet Take 1 tablet (650 mg total) by mouth 3 (three) times a day. 270 tablet 3 5 Active methylPREDNISolo ne (MEDROL, MUMTAZ,) 4 mg tabletIndication s:Achilles tendinitis of both lower extremities follow package directions 21 tablet 5 Active Active Problems Problem Noted Date Diagnosed Date CKD (chronic kidney disease) stage 5, GFR less than 15 ml/min 05/23/2024 detention (current) use of anticoagulants 2020 Hypertension H/O splenectomy Resolved Problems Problem Noted Date Diagnosed Date Resolved Date Acute deep vein thrombosis ( DVT) of proximal vein of left lower extremity 07/15/2021 03/23/2023 DVT (deep venous thrombosis) 07/02/2021 03/23/2023 Stage 4 chronic kidney disease 05/23/2024 Encounters Date Type Department Care Team Description 04/13/2025 Telephone [facility] [address] [place] [phone] Penelope Cerda, machine filler Of Care 04/13/2025 Telephone [facility] [address] [place] [phone] Zhanna Gabriel, JUANA 04/06/2025 Telephone [facility] [address] [place] [phone] Rosa Linn RN Transition Of Care 04/05/2025 Telephone [facility] [address] [facility] [address] [place] [phone] Zhanna Gabriel, JUANA 04/03/2025 Telephone [facility] [address] [place] [phone] Sumi Root, JUANA 03/22/2025 Travel 03/05/2025 3:00 PM EDT Office Visit [facility] [address] [facility] [address] [place] [phone] Abebe Stewart MD Achilles tendinitis of both lower extremities (Primary Dx); CKD (chronic kidney disease) stage 5, GFR less than 15 ml/min ([facility]) 03/05/2025 Travel 02/28/2025 11:40 AM EDT Office Visit [facility] [address] [place] [phone] Shereen Stephens APRN-HORTICULTURAL TECHNICAL OFFICER CKD (chronic kidney disease) stage 5, GFR less than 15 ml/min ([facility]) (Primary Dx) 02/28/2025 Travel 02/21/2025 Travel from Last 3 Months Immunizations Immunization Administration Dates Next Due Influenza, Injectable, quadrivalent (PF) 018 Pneumococcal Conjugate 13-Valent 08/27/2015 Pneumococcal Polysaccharide 09/19/2010 Social History Tobacco Use Types Packs/Day Years Used Date Smoking Tobacco: Never Smokeless Tobacco: Never Tobacco Cessation:Counseling Given: Not Answered Alcohol Use Standard Drinks/Week Comments Not Currently [...] PHQ-2 Answer Date Recorded Total Score 0 05/23/2024 Childcare Answer Date Recorded Childcare Unknown 01/11/2019 Employment Answer Date Recorded Employment Unknown 01/11/2019 Hunger Screening Answer Date Recorded Within the past 12 months we worried whether our food would run out before we got money to buy more. Never True 05/23/2024 Within the past 12 months th e food we bought just didn't last and we didn't have money to get more. Never True 05/23/2024 Purpose - Life Answer Date Recorded Purpose and direction in life Unknown Sex and Gender Information Value Date Recorded Sex Assigned at Not on file Legal Sex Male 11:39 AM EDT Gender Identity Not on file Sexual Orientation Not on file Last Filed Vital Signs Vital Sign Reading Time Taken Comments Blood Pressure 158/77 03/05/2025 2:52 PM EDT Pulse 68 03/05/2025 2:52 PM EDT Temperature 36.7 C (98 F) 10/05/2022 8:00 AM EST Respiratory Rate 16 02/28/2025 10:53 AM EDT Oxygen Saturation 95% 04/26/2023 8:06 AM EDT Inhaled Oxygen Concentration - - Weight 86.9 kg (191 lb 9.6 oz) 03/05/2025 2:52 P M EDT Height 185.4 cm (6' 0.99 ) 03/05/2025 2:52 PM ED T Body Mass Index 25.28 03/05/2025 2:52 PM EDT Plan of Treatment Health Maintenance Due Date Last Done Comments Medicare Annual Wellness Visit 1955 Adult BMI Follow Up Plan 1972 Fall Risk Screening 2019 Influenza Vaccine 04/02/2025 04/06/2024, , 07/01/2018 Depression Screening 05/23/2025 05/23/2024 Adult BMI Screening 03/05/2026 03/05/2025 Tobacco Screening 03/05/2026 03/05/2025 Colonoscopy 10/06/2027 10/05/2022, 03/0 12/2022, 08/22/2015 DTaP,Tdap and Td Vaccines (2 - Td or Tdap) 12/15/2034 12/15/2024 Zoster (Shingles) Vaccine Completed 09/24/2023, COVID-19 Vaccine Completed 10/07/2024, 12/2023, 07/15/2023, Additional history exists Goals Goal Patient Goal Type Associated Problems Recent Progress Patient-Stated? Author Home General Yes Katharina Adorno LSW Note: Evaluation of progress towards goal: Safe dc transition from hospital to home pending clinical course. Medical Devices Not on file Procedures Procedure Name Priority Date/Time Associated Diagnosis Comments BASIC METABOLIC PANEL Routine 03/22/2025 3:28 PM EDT CKD (chronic kidney disease) stage 5, GFR less than 15 ml/min ([facility]) URINALYSIS Routine 02/21/2025 8:33 AM EDT CKD (chronic kidney disease) stage 5, GFR less than 15 ml/min (CMS-HCC) VITAMIN D 25 HYDROXY Routine 02/21/2025 8:33 AM EDT CKD (chronic kidney disease) stage 5, GFR less than 15 ml/min (CMS-HCC) PHOSPHORUS Routine 02/21/2025 8:33 AM EDT CKD (chronic kidney disease) stage 5, GFR less than 15 ml/min (CMS-HCC) PARATHYROID HORMOME, INTACT Routine 02/21/2025 8:33 AM EDT CKD (chronic kidney disease) stage 5, GFR less than 15 ml/min (CMS-HCC) MAGNESIUM Routine 02/21/2025 8:33 AM EDT CKD (chronic kidney disease) stage 5, GFR less than 15 ml/min ([facility]) CBC (NO DIFF) Routine 02/21/2025 8:33 AM EDT CKD (chronic kidney disease) stage 5, GFR less than 15 ml/min ([facility]) BASIC METABOLIC PANEL Routine 02/21/2025 8:33 AM EDT CKD (chronic kidney disease) stage 5, GFR less than 15 ml/min ([facility]) PROTEIN CREAT RATIO Routine 02/21/2025 8 :29 AM EDT CKD (chronic kidney disease) stage 5, GFR less than 15 ml/min ([facility]) COLONOSCOPY 10/05/2022 10:43 AM EST from Last 3 Months or Most Recently Relevant to Health Maintenance Results * (ABNORMAL) Basic Metabolic Panel (03/22/2025 3:28 PM EDT) Only the most recent of2 resultswithin the time period is included. SODIUM 141 134 - 146 mmol/L 03/22/2025 10:15 PM EDT [facility] POTASSIUM 4.5 3.5 - 5.0 mmol/L 03/22/2025 10:15 PM EDT [facility] CHLORIDE 109 98 - 109 mmol/L 03/22/2025 10:15 PM EDT [facility] CARBON DIOXIDE 21(L) 22 - 32 mmol/L 03/22/2025 10:15 PM EDT [facility] ANION GAP 11 5 - 15 mmol/L 03/22/2025 10:15 PM EDT [facility] BLOOD UREA NITROGEN 72(H) 5 - 27 mg/dL 03/22/2025 10:15 PM EDT [facility] CREATININE 6.97(H) 0.60 - 1.30 mg/dL 03/22/2025 10:15 PM EDT [facility] Comment:METHOD TRACEABLE TO IDWI STANDARD GLUCOSE 90 65 - 99 mg/dL 03/22/2025 10:15 PM EDT [facility] CALCIUM 8.5 8.5 - 10.5 mg/dL 03/22/2025 10:15 PM EDT [facility] EGFR Non-Race Dependent 8(L) >=60 ml/min/1.7 3sq.m 03/22/2025 10:15 PM EDT [facility] Comment: Reported eGFR is based on the CKD-EPI 2020 equation that does not use a race coefficient. EGFR not calculated due to patient's gender not being defined. Blood Venous blood / Unknown Venipuncture / Unknown 03/22/2025 3:28 PM EDT 03/22/2025 3:28 PM EDT us Eren Garcia MD LAB BLOOD ORDERABLES Final Result [facility] [address] [place] [address], [place] [phone] * (ABNORMAL) Parathyroid Hormone, intact (02/21/2025 8:33 AM EDT) PTH INTACT 157(H) 12 - 88 pg/mL 02/21/2025 1:40 PM EDT [facility] Blood Venous blood / Unknown Venipuncture / Unknown 02/21/2025 8:33 AM EDT 02/21/2025 8:34 AM EDT us Eren Garcia MD LAB BLOOD ORDERABLES Final Result [facility] [address] [place] [address], [place] [phone] * Vitamin D 25 hydroxy (02/21/2025 8:33 AM EDT) VITAMIN D 25 HYD TOT 44.6 30.0 - 100.0 ng/mL 02/21/2025 1:48 PM EDT [facility] Blood Venous blood / Unknown Venipuncture / Unknown 02/21/2025 8:33 AM EDT 02/21/2025 8:34 AM EDT Narrative [facility] - 02/21/2025 1:48 PM EDT Vitamin D status 25 [place] Vitamin D Deficiency <20 ng/mL Insufficiency 20-29 ng/mL Sufficiency 30-100 ng/mL Toxicity >100 ng/mL NOTE: A pediatric reference range has not been established by the house cleaner of this kit. The [employer] [place] [employer] [place] [employer] recommends a Vitamin D level of = or >20ng/mL in infants and children. us Eren Garcia MD LAB BLOOD ORDERABLES Final Result [facility] [address] [place] [address], [place] [phone] * (ABNORMAL) Urinalysis (02/21/2025 8:33 AM EDT) COLOR Colorless Yellow, Colorless 02/21/2025 1:50 PM EDT [facility] TURBIDITY Clear Clear 02/21/2025 1:50 PM EDT [facility] SPECIFIC GRAVITY 1.012 1.003 - 1.035 02/21/2025 1:50 PM EDT [facility] NITRITE Negative Negative 02/21/2025 1:50 PM EDT [facility] PH,URINE 6.5 5.0 - 8.5 02/21/2025 1:50 PM EDT [facility] LEUKOCYTE ESTERASE Negative Negative 02/21/2025 1:50 PM EDT [facility] PROTEIN 50 mg/dL(A) Negative 02/21/2025 1:50 PM EDT [facility] KETONES (URINE) Negative Negative 1:50 PM EDT [facility] UROBILINOGEN <1.1 eu/dL <1.1 eu/dL 02/21/2025 1:50 PM EDT [facility] BILIRUBIN (URINE) Negative Negative 02/21/2025 1:50 PM EDT [facility] BLOOD/HGB Negative Negative 02/21/2025 1:50 PM EDT [facility] R.B.CELLS <1 0 - 5 02/21/2025 1:50 PM EDT [facility] W.B.CELLS <1 0 - 5 02/21/2025 1:50 PM EDT [facility] GLUCOSE (URINE) Negative Negative 1:50 PM EDT [facility] Urine Urine / Unknown Collection / Unknown 02/21/2025 8:33 AM EDT 02/21/2025 8:34 AM EDT us Eren Garcia MD URINE ORDERABLES Final Res ult [facility] [address] [place] [address], [place] [phone] * (ABNORMAL) CBC without diff (02/21/2025 8:33 AM EDT) WBC 7.7 4 - 11 x10E9/L 02/21/2025 1:04 PM EDT [facility] RBC Count 3.43(L) 4.1 - 5.7 X10E12/L 02/21/2025 1:04 PM EDT [facility] Hemoglobin 10.3(L) 13 - 17 g/dL 02/21/2025 1:04 PM EDT [facility] Hematocrit 31.3(L) 39 - 50 % 02/21/2025 1:04 PM EDT [facility] MCV 91 80 - 100 fL 02/21/2025 1:04 PM EDT [facility] MCH 30.2 27 - 34 pg 02/21/2025 1:04 PM EDT [facility] MCHC 33.0 32 - 36 g/dL 02/21/2025 1:04 PM EDT [facility] RDW 13.7 11.5 - 15 % 02/21/2025 1:04 PM EDT [facility] Platelet Count 231 150 - 450 X10E9/L 02/21/2025 1:04 PM EDT [facility] MPV 10.6 7 - 12 fL 02/21/2025 1:04 PM EDT [facility] Blood Venous blood / Unknown Venipuncture / Unknown 02/21/2025 8:33 AM EDT 02/21/2025 8:34 AM EDT us Eren Garcia MD LAB BLOOD ORDERABLES Final Result Performing Organization Address City/[facility]/ZIP Co de Phone Number [facility] [address] [place] [address], * (ABNORMAL) Phosphorus (02/21/2025 8:33 AM EDT) PHOSPHORUS 6.3(H) 2.4 - 4.9 mg/dL 02/21/2025 1:44 PM EDT [facility] Blood Venous blood / Unknown Venipuncture / Unknown 02/21/2025 8:33 AM EDT 02/21/2025 8:34 AM EDT us Eren Garcia MD LAB BLOOD ORDERABLES Final Result [facility] [address] [place] [address], [place] [phone] * Magnesium (02/21/2025 8:33 AM EDT) MAGNESIUM 1.9 1.8 - 2.6 mg/dL 02/21/2025 1:44 PM EDT [facility] Blood Venous blood / Unknown Venipuncture / Unknown 02/21/2025 8:33 AM EDT 02/21/2025 8:34 AM EDT us Eren Garcia MD LAB BLOOD ORDERABLES Final Result [facility] [address] [place] [address], [place] [phone] * (ABNORMAL) Protein creat ratio (02/21/2025 8:29 AM EDT) URINE PROTEIN, RANDOM (MG/L) 780(H) <120 mg/L 02/21/2025 1:39 PM EDT [facility] URINE CREATININE,RDM 59.24 mg/dL 02/21/2025 1:39 PM EDT [facility] U/PRO/DEHYDROGENATION OPERATOR RATIO CALC 1.32(H) <=0.20 02/21/2025 1:39 PM EDT [facility] Urine Urine specimen collection, clean catch / Unknown Collection / Unknown 02/21/2025 8:29 AM EDT 02/21/2025 8:34 AM EDT Narrative [facility] - 02/21/2025 1:39 PM EDT Nephrotic Syndrome is associated with ratios >3.5 us Eren Garcia MD URINE ORDERABLES Final Res ult Performing Organization Address City/[facility]/ZIP Co de Phone Number [facility] [address] [place] [address], [place] [phone] * Colonoscopy (10/05/2022 10:43 AM EST) 10/05/2022 10:4 3 AM EST Narrative CARDIOVASCULAR - 10/05/2022 11:08 AM EST [facility] Patient Name: Alberto Waller Procedure Date No Time: 10/05/2022 CSN : [id number] Date of : 1955 Admit Type: Outpatient Age: 67 Room: [place] [address] Gender: Male Note Status: Finalized Attending MD: Alberto Mensah DO Procedure: Colonoscopy Indications: Rectal bleeding Providers: Alberto Mensah DO Referring MD: Alberto Mensah DO Medicines: Propofol per Anesthesia Complications: No immediate complications. Procedure: After I obtained informed consent, the scope was passed under direct vision. Throughout the procedure, the patient's blood pressure, pulse, and oxygen saturations were monitored continuously. The [facility] [id number] #[id number] ADULT COLONOSCOPE was introduced through the anus and advanced to the cecum, identified by appendiceal orifice and ileocecal valve. The colonoscopy was performed without difficulty. The patient tolerated the procedure well. The quality of the bowel preparation was good. Findings: The perianal and digital rectal examinations were normal. Multiple large-mouthed diverticula were found in the sigmoid colon and descending colon. Three sessile polyps were found in the recto-sigmoid colon and splenic flexure. The polyps were 2 to 5 mm in size. These polyps were removed with a hot snare. Resection and retrieval were complete. The exam was otherwise without abnormality on direct and retroflexion views. Estimated Blood Loss: Estimated blood loss was minimal. Impression: - Diverticulosis in the sigmoid colon and in the descending colon. - Three 2 to 5 mm polyps at the recto-sigmoid colon and at the splenic flexure, removed with a hot snare. Resected and retrieved. - The examination was otherwise normal on direct and retroflexion views. Recommendation: - Discharge patient to home. - Patient has a contact number available for emergencies. The signs and symptoms of potential delayed complications were discussed with the patient. Return to normal activities tomorrow. Written discharge instructions were provided to the patient. - High fiber diet for the rest of the patient's life. - Repeat colonoscopy in 5 years for surveillance based on pathology results. - Return to my office PRN. Procedure Code(s): --- Professional --- 75925, Colonoscopy, flexible; with removal of tumor(s), polyp(s), or other lesion(s) by snare technique Diagnosis Code(s): --- Professional --- D12.7, Benign neoplasm of rectosigmoid junction D12.3, Benign neoplasm of transverse colon (hepatic flexure or splenic flexure) K62.5, Hemorrhage of anus and rectum K57.30, Diverticulosis of large intestine without perforation or abscess without bleeding CPT copyright 2020 [employer] [place] [employer]. All rights reserved. The codes documented in this report are preliminary and upon orthodontic lab technician review may be revised to meet current compliance requirements. DO Alberto [place] DO 10/05/2022 11:08:22 AM Number of Addenda: 0 Note Initiated On: 10/05/2022 10:43 AM Procedure Note Alberto Mensah DO - 10/05/2022 [facility] Patient Name: Alberto Waller Procedure Date No Time: 10/05/2022 CSN : [id number] Date of : 1955 Admit Type: Outpatient Age: 67 Room: [place] [address] Gender: Male Note Status: Finalized Attending MD: Alberto Mensah DO Procedure: Colonoscopy Indications: Rectal bleeding Providers: Alberto Mensah DO Referring MD: Alberto Mensah DO Medicines: Propofol per Anesthesia Complications: No immediate complications. Procedure: After I obtained informed consent, the scope was passed under direct vision. Throughout theprocedure, the patient's blood pressure, pulse, and oxygen saturations were monitored continuously. TheLinkuriousNEW [facility] [id number] #[id number] ADULT COLONOSCOPE was introduced through the anus and advanced to the cecum,identified by appendiceal orifice and ileocecal valve. The colonoscopy was performed without difficulty. The patient tolerated the procedure well. The qualityof the bowel preparation was good. Findings: The perianal and digital rectal examinations were normal. Multiple large-mouthed diverticula were found in the sigmoid colonand descending colon. Three sessile polyps were found in the recto-sigmoid colon andsplenic flexure. The polyps were 2 to 5 mm in size. These polyps were removed with a hot snare. Resection and retrieval were complete. The exam was otherwise without abnormality on direct and retroflexion views. Estimated Blood Loss: Estimated blood loss was minimal. Impression: - Diverticulosis in the sigmoid colon and in the descending colon. - Three 2 to 5 mm polyps at the recto-sigmoid colon and at the splenic flexure, removed with a hotsnare. Resected and retrieved. - The examination was otherwise normal on directand retroflexion views. Recommendation: - Discharge patient to home. - Patient has a contact number available for emergencies. The signs and symptoms of potential delayed complications were discussed with thepatient. Return to normal activities tomorrow. Written discharge instructions were provided to thepatient. - High fiber diet for the rest of the patient'slife. - Repeat colonoscopy in 5 years for surveillancebased on pathology results. - Return to my office PRN. Procedure Code(s): --- Professional --- 57752, Colonoscopy, flexible; with removal of tumor(s), polyp(s), or other lesion(s) by snare technique Diagnosis Code(s): --- Professional --- D12.7, Benign neoplasm of rectosigmoid junction D12.3, Benign neoplasm of transverse colon (hepatic flexure orsplenic flexure) K62.5, Hemorrhage of anus and rectum K57.30, Diverticulosis of large intestine without perforation orabscess without bleeding CPT copyright 2020 [employer] [place] [employer]. All rights reserved. The codes documented in this report are preliminary and upon orthodontic lab technician reviewmay be revised to meet current compliance requirements. DO Alberto Madrid DO 10/05/2022 11:08:22 AM Number of Addenda: 0 Note Initiated On: 10/05/2022 10:43 AM Alberto Mensah DO GI PROCEDURE ORDERABLES Fin al Result PM CARDIOVASCULAR from Last 3 Months or Most Recently Relevant to Health Maintenance Insurance [employer] MEDICARE Advance Directives * Full Code (Latest Code Status on File) Date Activated Date Inactivated Comments 07/02/2021 1:12 PM 07/08/2021 6:37 PM Care Teams [facility] Sales Relationship Specialty Start Date End Date Abebe Stewart MD [address] [place] [address], [address] [place] [address] PCP - General Pediatrics 05/21/17
--- OUTSIDE RECORDS SUMMARY | 2025-04-28 08:45 | XMS_ITS | Encounter Summary ---
Author Organization [facility] Address [address] [place] [address] Care Team Providers Care Wire Fence Builder Name Role Phone Abebe Stewart MD Primary Care Provider [phone] Abebe Tan MD Unavailable Encounter Details Date Type Department Care Team (Late st Contact Info) Description 04/16/2025 Orders Only [facility] 2A Infusion [address] [place] [phone] Ness Saenz, RN Social History Tobacco Use Types Packs/Day Years Used Date Smoking Tobacco: Never Smokeless Tobacco: Never Alcohol Use Standard Drinks/Week Comments Yes 0 (1 standard drink = 0.6 oz pur e alcohol) rare [facility] Utilities Answer Date Recorded In the past 12 months has [facility] electric, gas, oil, or water [employer] threatened to shut off services in your [...] often do you attend chur ch or anglican services? Never 04/05/2025 Do you belong to [...] Recorded Patient Health Questionnaire-2 Score 0 04/20/2025 [facility] of Occupat ional Health - Occupational [...] were you homeless or living in a long-term (including now)? No 04/05/2025 Hunger Vital Sign [...] Info) Description 04/30/2025 9:00 AM EDT Follow-Up [facility] Transplant [address] [place] [address] Jayjay Robin MD [address] [place] [address] 04/30/2025 9:15 AM EDT Appointment [facility] 2A [place] [phone] 05/10/2025 1:00 PM EDT Procedure Visit [facility] Urology [address] [place] [address] Abebe Tan MD [place] [address] 05/10/2025 1:30 PM EDT Appointment [facility] 2A [place]fusion [place] [address] documented as of this encounter Visit Diagnoses Not on filedocumented in this encounter Care Teams Wire Fence Builder Relationship Specialty Start Date End Date Abebe Stewart MD [address] [place] [address], [address] [place] [id number] PCP - General Internal Medicine 09/21/24 Abebe Tan MD [address] [place] [phone] Consulting Physician Urology 04/07/25 documented as of this encounter
--- OUTSIDE RECORDS SUMMARY | 2025-04-28 08:45 | XMS_ITS | Encounter Summary ---
Author Organization [employer] Address [id number] [address] [place] [address] Care Team Providers Care Neonatal Icu Coordinator Name Role Phone Abebe Stewart MD Primary Care Provider [phone] Reason for Visit * Reason Comments Med Refill Encounter Details Date Type Department Care Team (Late st Contact Info) Description 10/12/2021 Refill [facility] Internal Medicine/Pediatrics [address] [place] [address] 1 [place] [address] Abebe Stewart MD [address] [place] [address], 1 [place], [place] [id number] Social History Tobacco Use Types Packs/Day Years [...] suspected to have Coronavirus/COVID-19? No / Unsure 10/14/2021 11:11 AM EDT documented as of this encounter Plan of Treatment Not on file documented as of this encounter Goals Goal Patient Goal Type Associated Problems Recent Progress Patient-Stated? Author Home General Yes aKtharina Adorno LSW Note: Evaluation of progress towards goal: Safe dc transition from hospital to home pending clinical course. documented as of this encounter Visit Diagnoses Not on filedocumented in this encounter Additional Health Concerns Assessment Noted Time PHQ-9 Depression Total Score: 0 09/12/19 21 9:02 AM EST documented as of this encounter Care Teams Neonatal Icu Coordinator Relationship Specialty Start Date End Date Abebe Stewart MD [address] [place] [address], 1 [place] [address] PCP - General Pediatrics 05/21/17 documented as of this encounter
--- OUTSIDE RECORDS SUMMARY | 2025-04-28 08:45 | XMS_ITS | Encounter Summary ---
Author Organization [employer] Address [id number] [address] [place] [address] Care Team Providers Care Rough Planer Tender Name Role Phone Abebe Stewart MD Primary Care Provider [phone] Reason for Visit * Reason Onset Date Comments Transition Of Care 04/13/2025 Encounter Details Date Type Department Care Team (Late st Contact Info) Description 04/13/2025 Telephone [facility] Internal Medicine/Pediatrics [address] [facility] 1 [place] [address] Penelope Cerda, senior net application developer Of Care Social History Tobacco Use Types Packs/Day Years [...] on file Sexual Orientation Not on file documented as of this encounter Miscellaneous Notes * Telephone Encounter - Penelope Cerda RN - 04/13/2025 1:33 PM EDT Transition of Care (*required) *Additional Questions/Concerns Requiring PCP Follow-Up: Unable to reach patient for TCM call. No PCP TCV currently scheduled. This documentation is being used for Transition of Care purposes: Yes Goal: Patient will demonstrate a safe transition from hospital to home. 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 HTN S/p DDRT Anemia of chronic disease Need for immunosuppression Need for immunoprophylaxis Discharge Specialty: Gastroenterology and Nephrology *Name of Discharging Facility: [facility] Date of Facility Discharge: 04.05.25 - 04.11.25 03.31.25 - 04.04.25 Date of Interactive Contact and Name of Trim Die Maker: 04.13.25 @ 9348 Unable to reach patient @ 1511 Unable to reach patient *Medication Review Completed: No START taking these medications cefpodoxime 200 mg tablet metroNIDAZOLE 500 mg tablet pantoprazole 40 mg EC tablet CHANGE how you take these medications hydrALAZINE 25 mg tablet mycophenolate 180 mg EC tablet tacrolimus ER 4 mg tablet ER tamsulosin 0.4 mg 24 hr capsule STOP taking these medications famotidine 20 mg tablet sodium bicarbonate 650 mg tablet Medication Reconciliation Questions/Concerns: *Follow Up Appointments with Providers: Primary: Abebe Stewart MD TBD Specialty: Dr. Robin - Transplant Surg 04.16.25 @ 0900 Specialty: Specialty: Review of Pending Lab/Diagnostic Tests and Plan for Completion: Labs drawn today per transplant clinic. Results in epic Assessment and Support of Treatment Regimen Adherence and Medication Management: Education Provided by ACN to Support Self-Management, Independent Living and ADLs: Communication with Home Health Agencies and Other Services Utilized/Needed by the Patient: documented in this encounter Plan of Treatment Not on file documented as of this encounter Goals Goal Patient Goal Type Associated Problems Recent Progress Patient-Stated? Author Home General Yes Ktaharina Adorno LSW Note: Evaluation of progress towards goal: Safe dc transition from hospital to home pending clinical course. documented as of this encounter Visit Diagnoses Not on filedocumented in this encounter Additional Health Concerns Assessment Noted Time PHQ-9 Depression Total Score: 0 05/23/20 24 10:12 AM EDT documented as of this encounter Care Teams Rough Planer Tender Relationship Specialty Start Date End Date Abebe Stewart MD [address] [place] [address], 1 [place] [address] PCP - General Pediatrics 05/21/17 documented as of this encounter
--- OUTSIDE RECORDS SUMMARY | 2025-04-28 08:46 | XMS_ITS | Encounter Summary ---
Author Organization [facility] Address [address] [place] [address] Care Team Providers Care Credit Controller Name Role Phone Abebe Stewart MD Primary Care Provider [phone] Abebe Tan MD Unavailable Reason for Visit * Reason Onset Date Comments Transplant Pharmacist - Drug Information 025 Encounter Details Date Type Department Care Team (Late st Contact Info) Description 04/25/2025 Telephone [facility] Transplant [address] [place] [address] Daksha Domínguez PharmD, BCPS [address] [facility] [place] [address] Transplant Pharmacist - Drug Information Social History Tobacco Use Types Packs/Day Years Used Date Smoking Tobacco: Never Smokeless Tobacco: Never Alcohol Use Standard Drinks/Week Comments Yes 0 (1 standard drink = 0.6 oz pur e alcohol) rare [facility] Utilities Answer Date Recorded In the past 12 months has [employer], oil, or water [employer] threatened to shut off services in your [...] often do you attend chur ch or orthodox services? Never 04/05/2025 Do you belong to any clubs o r organizations such as mosque groups, unions, fraternal or athletic groups, or [...] Recorded Patient Health Questionnaire-2 Score 0 04/23/2025 [facility] of Occupat ional Health - Occupational [...] any time in the past 12 m [facility], were you homeless or living in a nursing home (including now)? No 04/05/2025 Hunger Vital Sign Answer Date Recorded Within the past 12 months, y ou worried that your food would run out before you got the money to buy more. Never true 04/05/20 Within the past 12 months, t he [...] AM EST documented as of this encounter Miscellaneous Notes * Telephone Encounter - Daksha Domínguez PharmD, BCPS - 04/26/2025 9:[address] Robin, no changes at this time and will re-evaluate at next appointment. Daksha Domínguez PharmD, [facility] Solid Organ Transplant Clinical Pharmacist * Telephone Encounter - Daksha Domínguez PharmD, BCPS - 04/25/2025 4:25 PM EDT Transplant Pharmacist - Drug Information The patient contacted pharmacist regarding loose stools, 2x daily (not watery). These used to be normal for him but then he got older and he wasn't going as frequently. He states he has been eating more. They are not affecting his daily living but it is immediate when he has to go. There is no blood. He has been on antibiotics recently.Handbook Writer educated the patient that Myfortic can cause diarrhea and sometimes the stomach needs to get used to the medication. I let him know that someone would be in touch with him if there are any medication changes and he is going to be seen in clinic on Wednesday. I advised him to continue everything as prescribed if he didn't hear anything. Reached out to Dr. Robin regarding patient concern. Nurse coordinator aware. Daksha Domínguez PharmD, BCPS Solid Organ Transplant Clinical Pharmacist documented in this encounter Plan of Treatment Upcoming Encounters Date Type Department Care Team (Late st Contact Info) Description 04/30/2025 9:00 AM EDT Follow-Up [facility] [place] [address] [place] [address] 04/30/2025 9:15 AM EDT Appointment [facility] 2A [place] [address] 05/10/2025 1:00 PM EDT Procedure Visit [facility] [place] [address] [place] [address] 05/10/2025 1:30 PM EDT Appointment [facility] 2A [place] [address] documented as of this encounter Visit Diagnoses Not on filedocumented in this encounter Care Teams Credit Controller Relationship Specialty Start Date End Date Abebe Stewart MD [address] [place] [address], 1 [place] [address] PCP - General Internal Medicine 09/21/24 Abebe Tan MD [facility] [place] [address] Consulting Physician Urology 04/07/25 documented as of this encounter
--- OUTSIDE RECORDS SUMMARY | 2025-04-28 08:46 | XMS_ITS | Encounter Summary ---
Author Organization [facility] Address [address] [place] [address] Care Team Providers Care Lead Shop Operator Name Role Phone Abebe Stewart MD Primary Care Provider [phone] Abebe Tan MD Unavailable Encounter Details Date Type Department Care Team (Late st Contact Info) Description 04/23/2025 Orders Only [facility] 2A Infusion [address] [place] [phone] Nancy Champion, JUANA Social History Tobacco Use Types Packs/Day Years Used Date Smoking Tobacco: Never Smokeless Tobacco: Never Alcohol Use Standard Drinks/Week Comments Yes 0 (1 standard drink = 0.6 oz pur e alcohol) rare [facility] Utilities Answer Date Recorded In the past 12 months has [facility] electric, gas, oil, or water [employer] threatened to shut off services in your [...] often do you attend chur ch or christianity services? Never 04/05/2025 Do you belong to any clubs o r organizations such as shinto groups, unions, fraternal or athletic groups, or [...] Recorded Patient Health Questionnaire-2 Score 0 04/23/2025 [facility] of Occupat ional Health - Occupational Stress [...] any time in the past 12 m [facility], were you homeless or living in a custodial (including now)? No 04/05/2025 Hunger Vital Sign [...] Info) Description 04/30/2025 9:00 AM EDT Follow-Up [facility] Transplant [address] [place] [address] Jayjay Robin MD [address] [place] [address] 04/30/2025 9:15 AM EDT Appointment [facility] 2A [place] [address] 05/10/2025 1:00 PM EDT Procedure Visit [facility] Urology [address] [place] [address] Abebe Tan MD [address] [place] [address] 05/10/2025 1:30 PM EDT Appointment [facility] 2A Infusion [place] [place] [address] documented as of this encounter Visit Diagnoses Not on filedocumented in this encounter Care Teams Lead Shop Operator Relationship Specialty Start Date End Date Abebe Stewart MD [address] [place] [address], [address] [place] [phone] PCP - General Internal Medicine 09/21/24 Abebe Tan MD [address] [place] [address] Consulting Physician Urology 04/07/25 documented as of this encounter
--- OUTSIDE RECORDS SUMMARY | 2025-04-28 08:46 | XMS_ITS | Encounter Summary ---
Author Organization [facility] Address [address] [place] [address] Care Team Providers Care Collision Technician Name Role Phone Abebe Stewart MD Primary Care Provider [phone] Abebe Tan MD Unavailable Encounter Details Date Type Department Care Team (Late st Contact Info) Description 04/23/2025 Orders Only [facility] Transplant [address] [place] [phone] Zahra Rhoades, RN Social History Tobacco Use Types Packs/Day Years Used Date Smoking Tobacco: Never Smokeless Tobacco: Never Alcohol Use Standard Drinks/Week Comments Yes 0 (1 standard drink = 0.6 oz pur e alcohol) rare [facility] Utilities Answer Date Recorded In the past 12 months has [facility] electric, gas, oil, or water [employer] threatened to shut off services in your [...] often do you attend chur ch or hoahaoism services? Never 04/05/2025 Do you belong to any clubs o r organizations such as anabaptism groups, unions, fraternal or athletic groups, or [...] Recorded Patient Health Questionnaire-2 Score 0 04/23/2025 [facility] of Occupat ional Health - Occupational [...] any time in the past 12 m [facility], were you homeless or living [...] Info) Description 04/30/2025 9:00 AM EDT Follow-Up [facility] Transplant [address] [place] [address] Jayjay Robin MD [address] [place] [address] 04/30/2025 9:15 AM EDT Appointment [facility] 2A [place] [address] 05/10/2025 1:00 PM EDT Procedure Visit [facility] Urology [address] [place] [address] Abebe Tan MD [place] [address] 05/10/2025 1:30 PM EDT Appointment [facility] 2A [place] [address] documented as of this encounter Visit Diagnoses Not on filedocumented in this encounter Care Teams Collision Technician Relationship Specialty Start Date End Date Abebe Stewart MD [address] [place] [address], [address] [place] [address] PCP - General Internal Medicine 09/21/24 Abebe Tan MD [address] [place] [phone] Consulting Physician Urology 04/07/25 documented as of this encounter
--- OUTSIDE RECORDS SUMMARY | 2025-04-28 08:46 | XMS_ITS | Encounter Summary ---
Author Organization [facility] Address [address] [place] [address] Care Team Providers Care Community Education Specialist Name Role Phone Abebe Stewart MD Primary Care Provider [phone] Abebe Tan MD Unavailable Encounter Details Date Type Department Care Team (Late st Contact Info) Description 04/20/2025 Orders Only [facility] 2A Infusion [address] [place] [address] Nancy Champion, JUANA Social History Tobacco Use Types Packs/Day Years Used Date Smoking Tobacco: Never Smokeless Tobacco: Never Alcohol Use Standard Drinks/Week Comments Yes 0 (1 standard drink = 0.6 oz pur e alcohol) rare [facility] Utilities Answer Date Recorded In the past 12 months has [facility] electric, gas, oil, or water [employer] threatened to shut off services in your [...] any clubs o r organizations such as yarsani groups, unions, fraternal or athletic groups, or [...] Recorded Patient Health Questionnaire-2 Score 0 04/23/2025 [facility] of Occupat ional Health - [...] any time in the past 12 m [facility], were you homeless or living in a [...] Follow-Up [facility] Transplant [address] [place] [address] Jayjay Robin MD [address] [place] [address] 04/30/2025 9:15 AM EDT Appointment [facility] 2A [place] [phone] 05/10/2025 1:00 PM EDT Procedure Visit [facility] Urology [address] [place] [address] Abebe Tan MD [address] [place] [address] 05/10/2025 1:30 PM EDT Appointment [facility] 2A Infusion [place] [address] documented as of this encounter Visit Diagnoses Not on filedocumented in this encounter Care Teams Community Education Specialist Relationship Specialty Start Date End Date Abebe Stewart MD [address] [place] [address], [address] [place] [phone] PCP - General Internal Medicine 09/21/24 Abebe Tan MD [address] [place] [address] Consulting Physician Urology 04/07/25 documented as of this encounter
--- OUTSIDE RECORDS SUMMARY | 2025-04-28 08:46 | XMS_ITS | Encounter Summary ---
Author Organization [facility] Address [address] [place] [address] Care Team Providers Care Insurance Loss Control Surveyor Name Role Phone Abebe Stewart MD Primary Care Provider [phone] Abebe Tan MD Unavailable Encounter Details Date Type Department Care Team (Late st Contact Info) Description 04/26/2025 Orders Only [facility] 2A Infusion [address] [place] [phone] Nancy Champion, JUANA Social History Tobacco Use Types Packs/Day Years Used Date Smoking Tobacco: Never Smokeless Tobacco: Never Alcohol Use Standard Drinks/Week Comments Yes 0 (1 standard drink = 0.6 oz pur e alcohol) rare [facility] Utilities Answer Date Recorded In the past 12 months has [facility] electric, gas, oil, or water [employer] threatened to shut off services in your [...] often do you attend chur ch or buddhism services? Never 04/05/2025 Do you belong to [...] Recorded Patient Health Questionnaire-2 Score 0 04/23/2025 [facility] of Occupat ional Health - Occupational [...] any time in the past [address] [facility], were you homeless or living in a usp (including now)? No 04/05/2025 Hunger Vital Sign [...] Info) Description 04/30/2025 9:00 AM EDT Follow-Up [facility] Transplant [address] [place] [address] Jayjay Robin [place] [address] 04/30/2025 9:15 AM EDT Appointment [facility] 2[place] [address] 05/10/2025 1:00 PM EDT Procedure Visit [facility] Urology [address] [place] [address] Abebe Tan MD [address] [place] [address] 05/10/2025 1:30 PM EDT Appointment [facility] 2A [place]fusion [place] [address] documented as of this encounter Visit Diagnoses Not on filedocumented in this encounter Care Teams Insurance Loss Control Surveyor Relationship Specialty Start Date End Date Abebe Stewart MD [address] [place] [address], [address] [place] [address] PCP - General Internal Medicine 09/21/24 Abebe Tan MD [address] [place] [address] Consulting Physician Urology 04/07/25 documented as of this encounter
--- OUTSIDE RECORDS SUMMARY | 2025-04-28 08:47 | XMS_ITS | Encounter Summary ---
Author Organization [employer] Address [id number] [address] [place] [address] Care Team Providers Care Access Liaison Name Role Phone Abebe Stewart MD Primary Care Provider [phone] Reason for Visit * Reason Comments Med Refill Encounter Details Date Type Department Care Team (Late st Contact Info) Description 10/24/2022 Refill [facility] Internal Medicine/Pediatrics [address] [place] [address] 1 [place] [address] Abebe Stewart MD [address] [place] [address], 1 [place], [place] [phone] Social History Tobacco Use Types Packs/Day Years [...] have Coronavirus / COVID-19? No / Unsure 10/26/2022 8:19 AM EDT documented as of this encounter Miscellaneous Notes * Telephone Encounter - Gris Worrell CMA - 10/24/2022 6:54 AM EDT discontinued documented in this encounter Plan of Treatment [...] documented as of this encounter Care Teams Access Liaison Relationship Specialty Start Date End Date Abebe Stewart MD [address] [place] [address], [place] [address] PCP - General Pediatrics 05/21/17 documented as of this encounter
--- OUTSIDE RECORDS SUMMARY | 2025-04-28 08:47 | XMS_ITS | Encounter Summary ---
Author Organization [employer] Address [facility][id number] [address] [place] [address] Care Team Providers Care Data Engineer Name Role Phone Abebe Stewart MD Primary Care Provider Encounter Details Date Type Department Care Team (Late st Contact Info) Description 02/25/2021 Orders Only [facility] Internal Medicine/Pediatrics [address] [place] [phone] Sumi Rhodes RMA Stage 4 chronic kidney disease ([facility]-HCC); Well adult health check Social History Tobacco Use Types Packs/Day Years [...] on file documented as of this encounter Plan of Treatment Not on file documented as of this encounter Procedures Procedure Name Priority Date/Time Associated Diagnosis Comments CBC WITH AUTO DIFFERENTIAL Routine 02/24/2021 Well adult health check PHOSPHORUS Routine 02/24/2021 Stage 4 chronic kidney disease (CMS-HCC) COMPREHENSIVE METABOLIC PANEL Routine 02/24/2021 Well adult health check documented in this encounter Results * CBC auto differential (02/24/2021) 02/24/2021 us Abebe Stewart MD LAB BLOOD ORDERABLES Final Re sult Performing Organization Address City/[facility]/ZIP Co de Phone Number SUNQUEST * Comprehensive metabolic panel (02/24/2021) Blood 02/24/2021 us Abebe Stewart MD LAB BLOOD ORDERABLES Final Re sult Performing Organization Address [facility] Co de Phone Number SUNQUEST * Phosphorus (02/24/2021) Blood 02/24/2021 us Abebe Stewart MD LAB BLOOD ORDERABLES Final Re sult Performing Organization Address [facility] Co de Phone Number SUNQUEST documented in this encounter Visit Diagnoses Diagnosis Stage 4 chronic kidney disease (CMS-HCC) Well adult health check Unspecified general medical examination documented in this encounter Additional Health Concerns Assessment Noted Time PHQ-9 Depression Total Score: 0 09/12/19 21 9:02 AM EST documented as of this encounter Care Teams Data Engineer Relationship Specialty Start Date End Date Abebe Stewart MD [address] [place] [address], [address] [place] [address] PCP - General Pediatrics 05/21/17 documented as of this encounter
--- OUTSIDE RECORDS SUMMARY | 2025-04-28 08:47 | XMS_ITS | Encounter Summary ---
Author Organization [facility] Address [address] [place] [address] Care Team Providers Care Communications Associate Name Role Phone Abebe Stewart MD Primary Care Provider [phone] Abebe Tan MD Unavailable Reason for Visit * Reason Onset Date Comments Transplant Pharmacist - Initial Discharge Prescr iption Plan 04/03/2025 Encounter Details Date Type Department Care Team (Late st Contact Info) Description 04/03/2025 Telephone [facility] Transplant [address] [place] [phone] Koby Nascimento, PharmD, BCTXP [address] [place], [place] Transplant Pharmacist - Initial Discharge Prescription Plan Social History Tobacco Use Types Packs/Day Years Used Date Smoking Tobacco: Never Smokeless Tobacco: Never Alcohol Use Standard Drinks/Week Comments Yes 0 (1 standard drink = 0.6 oz pur e alcohol) rare [facility] Utilities Answer Date Recorded In the past 12 months has [email or web address], oil, or water [employer] threatened to shut off services in your [...] often do you attend chur ch or gnosticist services? Never 04/05/2025 Do you belong to [...] Recorded Patient Health Questionnaire-2 Score 0 04/23/2025 [facility] of Occupat ional Health - Occupational Stress [...] any time in the past 12 m [facility], were you homeless or living [...] documented as of this encounter Functional Status * Audit-C Score Answer Date of Assessment Author 0 04/05/2025 6:47 PM EDT Rick Torres * Question Answer Date of Assessment Author Q1: How often do you have a drink containing alcohol? Never 04/05/2025 6:47 PM Sandy Drew Q2: How many drinks containing alcohol do you have on a typical day when you are drinking? Patient does not drink 04/05/2025 6:47 PM Sandy Drew Q3: How often do you have six or more drinks on one occasion? Never 04/05/2025 6:47 PM Sandy Drew * Audit Alcohol Screening Question Answer Date of Assessment Author How often do you have a drin k containing alcohol? 0 04/05/2025 8:05 PM EDT Taryn Contreras RN How many standard drinks containing alcohol do you have on a typical day? No 04/05/2025 8:05 PM EDT Taryn Contreras RN How often do you have six or more drinks on one occasion? 0 04/05/2025 8:05 PM EDT Lexi Contreras RN Audit-C Score 0 04/05/2025 8:05 PM EDT [facility] * Question Answer Date of Assessment Author Trouble falling or staying asleep, or sleeping too much Not at all 04/23/2025 8:55 AM EDT Julian Morris MA Feeling tired or having jose le energy Not at all 04/23/2025 8:55 AM EDT Niurka Morris MA Poor appetite or overeating Not at all 04/23/2025 8: 55 AM EDT Niurka Morris MA Feeling bad about yourself - or that you are a failure or have let yourself or your family down Not at all 04/23/2025 8:55 AM EDT Niurka Crane MA Trouble concentrating on thi ngs, such as reading the newspaper or watching television Not at all 04/23/2025 8:55 AM EDT Niurka Morris MA Moving or speaking so slowly that other people could have noticed? Or the opposite - being so fidgety or restless that you have been moving around a lot more than usual. Not at all 04/23/2025 8:55 AM Niurka Callahan MA * Question Answer Date of Assessment Author Little interest or pleasure in doing things Not at all 04/23/2025 8:55 AM LAURENT Niurka Morris MA Feeling down, depressed, or hopeless Not at all 04/23/2025 8:55 AM LAURENT Niurka Morris MA Patient Health Questionnaire -2 Score 0 04/23/2025 8:55 AM EDT Niurka Morris MA * Calculated C-SSRS Risk Score (Lifetime/Recent) Answer Date of Assessment Author No Risk Indicated 04/05/2025 8:07 PM EDT Taryn Cheung RN * Suicidal Ideation Question Answer Date of Assessment Author 1. Wish to be (Lifetime) No 04/05/2025 8:07 PM EDT Taryn Contreras RN 2. Non-Specific Active Suici lissa Thoughts (Lifetime) No 04/05/2025 8:07 PM EDT Taryn Contreras RN * Suicidal Behavior Question Answer Date of Assessment Author Actual Attempt (Lifetime) No 04/05/2025 8:07 PM EDT Taryn Contreras RN Has subject engaged in non-suicidal self-injurious behavior? (Lifetime) No 04/05/2025 8:07 PM EDT Taryn Contreras RN Interrupted Attempts (Lifetime) No 8:07 PM EDT Taryn Contreras RN Aborted or Self-Interrupted Attempt (Lifetime) No 04/05/2025 8:07 PM EDT Taryn Contreras RN Preparatory Acts or Behavior (Lifetime) No 04/05/2025 8:07 PM EDT Taryn Contreras RN documented as of this encounter Miscellaneous Notes * Telephone Encounter - Daksha Domínguez PharmD, BCPS - 04/27/2025 8:27 AM EDT [id number] Delivered On April 25 at 4:27 P.M. at [facility] The pharmacy team will sign off at this time due to delivery. Daksha Domínguez PharmD, BCPS Solid Organ Transplant Clinical Pharmacist * Telephone Encounter - Cate Onofre PharmD - 04/25/2025 10:57 AM EDT Received message regarding an issue with Envarsus prescription at [facility]. Spoke with Sh[facility] all issues were resolved and Envarsus 0.75, 1, and 4 mg were shipped 04/24 with expected delivery of 04/25. Prednisone and Bactrim also in this shipment. UPS [id number] Called and spoke to patient, he was aware of the delivery. Confirmed with patient he has been taking Valcyte daily. Patient had no pharmacy related questions at this time. Cate Onofre PharmD Transplant Pharmacy Team 04/25/25 * Telephone Encounter - Daksha Domínguez PharmD, BCPS - 04/20/2025 12:10 PM EDT The patient states he heard from [facility] pharmacy. Educated patient to call for refill around 7 days prior to needing a fill. Daksha Domínguez PharmD, CRYSTAL Solid Organ Transplant Clinical Pharmacist * Telephone Encounter - Daksha Domínguez PharmD, BCPS - 04/13/2025 1:47 PM EDT Sent refills of all transplant medications, including prednisone, to [facility] pharmacy on behalf of Dr. Lomeli. Daksha Domínguez PharmD, CRYSTAL Solid Organ Transplant Clinical Pharmacist * Telephone Encounter - Koby Nascimento PharmD, BCTXP - 04/03/2025 12:12 PM EDT Transplant Pharmacist - Initial Discharge Prescription Plan Sent prescriptions for Envarsus XR, mycophenolate, valganciclovir, SMX-TMP, clotrimazole on behalf of Dr. Robin to [facility] outpatient pharmacy. Initial fills will be delivered by [facility] at discharge,future fills can go through [facility] specialty mail order pharmacy. documented in this encounter Plan of Treatment Upcoming Encounters Date Type Department Care Team (Late st Contact Info) Description 04/30/2025 9:00 AM EDT Follow-Up [facility] Transplant [address] [place] [id number] Jayjay Robin MD [address] [place] [phone] 04/30/2025 9:15 AM EDT Appointment [facility] 2A Infusion [address] [place] [phone] 05/10/2025 1:00 PM EDT Procedure Visit [facility] Urology [address] [place] [address] [place] [address] 05/10/2025 1:30 PM EDT Appointment [facility] [address] [place] [address] documented as of this encounter Visit Diagnoses Diagnosis Kidney transplanted- Primary Kidney replaced by transplant documented in this encounter Care Teams Communications Associate Relationship Specialty Start Date End Date Abebe Stewart MD [address] [place] [address], [address] [place] [address] PCP - General Internal Medicine 09/21/24 [place] [address] Consulting Physician Urology 04/07/25 documented as of this encounter
--- OUTSIDE RECORDS SUMMARY | 2025-04-28 08:47 | XMS_ITS | Clinical Summary ---
Author Organization [facility] Address [address] [facility] [place] [address] Care Team Providers Care Telesales Advisor Name Role Phone Unavailable Primary Care Provider Unavailabl e Social History Tobacco Use Types Packs/Day Years Used Date Smoking Tobacco: Never Assessed Sex and Gender Information Value Date Recorded Sex Assigned at Not on file Legal Sex Male 7:30 PM EDT Gender Identity Not on file Sexual Orientation Not on file Plan of Treatment Not on file
--- OUTSIDE RECORDS SUMMARY | 2025-04-28 08:47 | XMS_ITS | Encounter Summary ---
Author Organization [employer] Address [id number] [address] [place] [address] Care Team Providers Care Hoisting Engine Operator Name Role Phone Abebe Stewart MD Primary Care Provider Encounter Details Date Type Department Care Team (Late st Contact Info) Description 04/12/2024 Orders Only [facility] Internal Medicine/Pediatrics [address] [place] [phone] Sumi Rhodes RMA Stage 4 chronic kidney disease ([facility]-HCC) Social History Tobacco Use Types Packs/Day Years [...] PHQ-2 Answer Date Recorded Total Score 0 03/23/2023 Childcare Answer Date Recorded Childcare Unknown 01/11/2019 Employment Answer Date Recorded Employment Unknown 01/11/2019 Hunger Screening Answer Date Recorded Within the past 12 months we worried whether our food would run out before we got money to buy more. Never True 03/23/2023 Within the past 12 months th e food we bought just didn't last and we didn't have money to get more. Never True 03/23/2023 Purpose - Life Answer Date Recorded Purpose [...] Procedure Name Priority Date/Time Associated Diagnosis Comments AMB REFERRAL TO NEPHROLOGY Routine 04/10/2024 Stage 4 chronic kidney disease (CMS-HCC) documented in this encounter Results * Ambulatory referral to Nephrology (04/10/2024) 04/10/2024 us Abebe Stewart MD OUTPATIENT REFERRAL ORDERABLE S Final Result MANUALLY TRANSCRIBED RESULTS documented in this encounter Visit Diagnoses Diagnosis Stage 4 chronic kidney disease (CMS-HCC) documented in this encounter Additional Health Concerns Assessment Noted Time PHQ-9 Depression Total Score: 0 03/23/20 23 10:19 AM EDT documented as of this encounter Care Teams Hoisting Engine Operator Relationship Specialty Start Date End Date Abebe Stewart MD [address] [place] [address], [address] [place] [address] PCP - General Pediatrics 05/21/17 documented as of this encounter
--- OUTSIDE RECORDS SUMMARY | 2025-04-28 08:47 | XMS_ITS | Encounter Summary ---
Author Organization [employer] Address [id number] [address] [place] [address] Care Team Providers Care Telephone Coin Box Collector Name Role Phone Abebe Stewart MD Primary Care Provider [phone] Encounter Details Date Type Department Care Team (Late st Contact Info) Description 03/04/2021 Orders Only [facility] Internal Medicine/Pediatrics [address] [place] [phone] External, Scanning Provider Social History Tobacco Use Types Packs/Day Years [...] Procedure Name Priority Date/Time Associated Diagnosis Comments MULTIPLE LABS Routine 02/24/2021 documented in this encounter Results * Multiple labs (02/24/2021) 02/24/2021 us Scanning Provider External [facility] Final Result MANUALLY TRANSCRIBED RESULTS documented in this encounter Visit Diagnoses Not on filedocumented in this encounter Additional Health Concerns Assessment Noted Time PHQ-9 Depression Total Score: 0 09/12/19 21 9:02 AM EST documented as of this encounter Care Teams Telephone Coin Box Collector Relationship Specialty Start Date End Date Abebe Stewart MD [address] [place] [address], [address] [place] [address] PCP - General Pediatrics 05/21/17 documented as of this encounter
--- OUTSIDE RECORDS SUMMARY | 2025-04-28 08:47 | XMS_ITS | Encounter Summary ---
Author Organization [employer] Address [id number] [address] [place] [address] Care Team Providers Care Auction Block Clerk Name Role Phone Abebe Stewart MD Primary Care Provider [phone] Reason for Visit * Reason Comments Med Refill Encounter Details Date Type Department Care Team (Late st Contact Info) Description 05/01/2024 Refill [facility] Internal Medicine/Pediatrics [address] [place] [address] 1 [place] [address] Abebe Stewart MD [address] [place] [address], 1 [place], [place] [id number] Social History Tobacco Use Types Packs/Day Years [...] Telephone Encounter - Gris Worrell CMA - 05/01/2024 6:25 AM EDT Patient needs an appointment for further refills documented in this encounter Plan of Treatment [...] documented as of this encounter Care Teams Auction Block Clerk Relationship Specialty Start Date End Date Abebe Stewart MD [address] [place] [address], 1 [place] [address] PCP - General Pediatrics 05/21/17 documented as of this encounter
--- OUTSIDE RECORDS SUMMARY | 2025-04-28 08:47 | XMS_ITS | Encounter Summary ---
Author Organization [employer] Address [facility] [id number] [address] [place] [address] Care Team Providers Care Custom Marine Canvas Fabricator Name Role Phone Abebe Stewart MD Primary Care Provider [phone] Reason for Visit * Reason Comments Med Refill Encounter Details Date Type Department Care Team (Late st Contact Info) Description 03/01/2023 Refill [facility] Internal Medicine/Pediatrics [address] [place] [address] 1 [place] [address] Abebe Stewart MD [address] [place] [address], 1 [place], [place] [id number] Social History Tobacco Use Types Packs/Day Years [...] Telephone Encounter - Gris Worrell CMA - 03/01/2023 6:25 AM EDT Patient needs an appointment for further refills documented in this encounter Plan of Treatment Not on file documented as of this encounter Goals Goal Patient Goal Type Associated Problems Recent Progress Patient-Stated? Author Home General Yes Katharina Adorno, YAMILKA Note: Evaluation of progress towards goal: Safe dc transition from hospital to home pending clinical course. documented as of this encounter Visit Diagnoses Not on filedocumented in this encounter Additional Health Concerns Assessment Noted Time PHQ-9 Depression Total Score: 0 09/12/19 21 9:02 AM EST documented as of this encounter Care Teams Custom Marine Canvas Fabricator Relationship Specialty Start Date End Date Abebe Stewart MD [address] [place] [address], [address] [place] [address] PCP - General Pediatrics 05/21/17 documented as of this encounter
--- OUTSIDE RECORDS SUMMARY | 2025-04-28 08:47 | XMS_ITS | Encounter Summary ---
Author Organization [employer] tem Address [id number] [address] [place] [address] Care Team Providers Care Government Documents Librarian Name Role Phone Abebe Stewart MD Primary Care Provider [phone] Encounter Details Date Type Department Care Team (Late st Contact Info) Description 10/26/2022 Telephone [facility] [address] [place] [address] Corazon Donahue LPN Social History Tobacco Use Types Packs/Day Years [...] encounter Miscellaneous Notes * Telephone Encounter - Corazon Whitehead LPN - 10/26/2022 9:34 AM EDT Transplant referral re-sent to [facility] per [facility] patient has not heard from [facility] despite being a great candidate for transplant. I left Meenu from transplant to follow up on where patient is in the process and left a message documented in this encounter Plan of Treatment [...] Time PHQ-9 Depression Total Score: 0 09/12/19 9:02 AM EST documented as of this encounter Care Teams Government Documents Librarian Relationship Specialty Start Date End Date Abebe Stewart MD [address] [place] [address], [address] [place] [address] PCP - General Pediatrics 05/21/17 documented as of this encounter
--- OUTSIDE RECORDS SUMMARY | 2025-04-28 08:47 | XMS_ITS | Encounter Summary ---
Author Organization [facility] Address [address] [place] [address] Care Team Providers Care Casing Mixer Name Role Phone Abebe Stewart MD Primary Care Provider [phone] Abebe Tan MD Unavailable Encounter Details Date Type Department Care Team (Late st Contact Info) Description 04/16/2025 Orders Only [facility] 2A Infusion [address] [place] [phone] Nancy Champion, JUANA Social History Tobacco Use Types Packs/Day Years Used Date Smoking Tobacco: Never Smokeless Tobacco: Never Alcohol Use Standard Drinks/Week Comments Yes 0 (1 standard drink = 0.6 oz pur e alcohol) rare [facility] Utilities Answer Date Recorded In the past 12 months has [facility] electric, gas, oil, or water [employer] threatened to shut off services in your [...] any clubs o r organizations such as temple groups, unions, fraternal or athletic groups, or [...] Recorded Patient Health Questionnaire-2 Score 0 04/20/2025 [facility] of Occupat ional Health - [...] any time in the past 12 m [facility], were you homeless or living in [...] Info) Description 04/30/2025 9:00 AM EDT Follow-Up [facility] Transplant [address] [place] [address] Jayjay Robin MD [address] [place] [address] 04/30/2025 9:15 AM EDT Appointment [facility] 2A [place] [phone] 05/10/2025 1:00 PM EDT Procedure Visit [facility] Urology [address] [place] [place] [address] Abebe Tan MD [address] [place] [phone] 05/10/2025 1:30 PM EDT Appointment [facility] 2A [address]fusion [address] [place] [place] [address] documented as of this encounter Visit Diagnoses Not on filedocumented in this encounter Care Teams Casing Mixer Relationship Specialty Start Date End Date Abebe Stewart MD [address] [place] [address], [address] [place] [id number] PCP - General Internal Medicine 09/21/24 Abebe Tan MD [address] [place] [phone] Consulting Physician Urology 04/07/25 documented as of this encounter
--- OUTSIDE RECORDS SUMMARY | 2025-04-28 08:47 | XMS_ITS | Encounter Summary ---
Author Organization [employer] Address [facility] [id number] [address] [place] [address] Care Team Providers Care Product Mgr Name Role Phone Abebe Stewart MD Primary Care Provider [phone] Reason for Visit * Reason Onset Date Comments Transition Of Care 07/10/2021 Encounter Details Date Type Department Care Team (Late st Contact Info) Description 07/10/2021 Telephone [facility] Internal Medicine/Pediatrics [address] [facility] [address] [place] [address] Sumi Rhodes RMA Transition Of Care Social History Tobacco Use Types [...] have Coronavirus / COVID-19? No / Unsure 07/11/2021 8:55 AM EST documented as of this encounter Miscellaneous Notes * Telephone Encounter - SVETLANA Roe - 07/10/2021 11:21 AM EST ----- Message from SVETLANA Roe sent at 07/08/2021 9:12 AM EST ----- Regarding: KEYANA NEEDS DONE CALL PATIENT TO DO KEYANA * Telephone Encounter - SVETLANA Roe - 07/10/2021 11:21 AM EST Transition of Care (*required) *Additional Questions/Concerns Requiring PCP Follow-Up: no This documentation is being used for Transition of Care purposes: Yes Goal: Patient will demonstrate a safe transition Diagnosis on Discharge: DVT *Name of Discharging Facility: [facility] Date of Facility Discharge: 07/08/21 Date of Interactive Contact and Name of Frame Aligner: sofia Dominguez 07/10/21 *Medication Review Completed: Pending provider review Medication Reconciliation Questions/Concerns: no *Follow Up Appointments with Providers: Primary: Abebe Stewart MD Specialty: Specialty: Specialty: Review of Pending Lab/Diagnostic Tests and Plan for Completion: yes Assessment and Support of Treatment Regimen Adherence and Medication Management: yes Education Provided by ACN to Support Self-Management, Independent Living and ADLs: yes Communication with Home Health Agencies and Other Services Utilized/Needed by the Patient: no documented in this encounter Plan of Treatment [...] documented as of this encounter Care Teams Product Mgr Relationship Specialty Start Date End Date Abebe Stewart MD [address] [place] [address], [address] [place] [address] PCP - General Pediatrics 05/21/17 documented as of this encounter
--- OUTSIDE RECORDS SUMMARY | 2025-04-28 08:47 | XMS_ITS | Encounter Summary ---
Author Organization [employer] Address [id number] [address] [place] [address] Care Team Providers Care Outboard Motor Inspector Name Role Phone Abebe Stewart MD Primary Care Provider [phone] Encounter Details Date Type Department Care Team (Late st Contact Info) Description 10/20/2022 Telephone [facility] [address] [place] [phone] Princess Lanza CMA Social History Tobacco Use Types Packs/Day Years [...] have Coronavirus / COVID-19? No / Unsure 10/10/2022 9:30 AM EST documented as of this encounter [...] documented as of this encounter Care Teams Outboard Motor Inspector Relationship Specialty Start Date End Date Abebe Stewart MD [address] [place] [address], [address] [place] [address] PCP - General Pediatrics 05/21/17 documented as of this encounter
--- OUTSIDE RECORDS SUMMARY | 2025-04-28 08:47 | XMS_ITS ---
Author Organization [facility] Address [address] [place] [address] Care Team Providers Care Retail Custodial Associate Name Role Phone Abebe Stewart MD Primary Care Provider [phone] Abebe Tan MD Unavailable Transplant Episode Kidney Recipient [facility] ([place], [place]) - [facility] Organ Received: Left Kidney Transplanted on 03/31/2025 Marked as Active Follow-up on 03/31/2025 Kidney CoordinatorBritni Jensen RN Phone: N/A Fax: N/A Email: N/A [place] Organ Diagnosis Organ Primary Contributory Kidney Hypertensive Nephrosclerosis Donor Information Organ ABO Source Meets Risk Criteria HLA Match Mismatches Cross Match Left Kidney Transplanted O DCD No A: 1 B: 2 DR: 1 Left Kidney Donor Serology Results Anti-CMV CMV IgG: Negative HBsAg HBsAg: Negative Anti-HBcAb HBC Total: Negative HBsAb HBsAb: Not Done HBV DNA No results on file Anti-HCV HCV: Negative Anti-HIV I/II HIV-1: Negative Anti-HTLV I/II HTLV: Not Done RPR/VDRL RPR: Negative EBV IgG EBV VCA IgG: Positive EBV IgM EBV VCA IgM: Negative EBNA No results on file Toxoplasma Toxoplasma IgG: Negative SARS CoV-2 SARS CoV-2 RNA: Negative Care Team Name Role Phone Fax Email Britni Jensen RN Kidney Coordinator N/A N/A N/A Shereen Stephens CNP Referring Physician [phone] N/A Radha Fordep Explosive Ordnance Disposal Technician N/A N/A N/A Jayjay Robin MD Surgeon [phone] N/A Obdulio Mac MD Transplant Physician [phone] N/A Bren Fishman Tx Explosive Ordnance Disposal Technician N/A N/A N/A Angela Yang MD Rapid Extractor Operator [phone] N/A Events Post-Transplant Pre-Transplant Admitted: 03/31/2025 Referred: 07/28/2022 Transplanted: 03/31/2025 Evaluation began: 5 Discharged: 04/04/2025 Committee: 03/19/2025 Center waitlisted: 5 Appointments (03/28/2025 - 05/28/2025) When With Visit Type Description 04/06/2025 Transplant Transplant Follo w Up Visit No Show 04/13/2025 [facility] Encounter for medication review and counseling (Primary Dx) 04/13/2025 Transplant - [facility] Follow Up Appointment Encounter for aftercare following kidney transplant (Primary Dx); Immunosuppressive management encounter following kidney transplant; Need for prophylactic antibiotic; Primary hypertension; Hypocalcemia; Hypophosphatemia; Hypokalemia; Anemia in chronic kidney disease, unspecified CKD stage; Urinary retention 04/16/2025 Transplant - Ester Robin Follow Up Appointme nt Immunosuppression (Primary Dx); Encounter for aftercare following kidney transplant; Primary hypertension; Benign prostatic hyperplasia with urinary retention; Diverticulitis; Anemia in chronic kidney disease, unspecified CKD stage; Hypophosphatemia; Bilateral lower extremity edema; Hypocalcemia; Hypomagnesemia; Diarrhea, unspecified type 04/20/2025 Transplant - Rick Lomeli Follow Up Appointment Encounter for aftercare following kidney transplant (Primary Dx); Immunosuppressive management encounter following kidney transplant; Need for prophylactic antibiotic; Anemia in chronic kidney disease, unspecified CKD stage; Hypomagnesemia; Primary hypertension 04/23/2025 Transplant - Ester Robin Follow Up Appointme nt Immunosuppressive management encounter following kidney transplant (Primary Dx); Encounter for aftercare following kidney transplant; Primary hypertension; Gastroesophageal reflux disease without esophagitis; Diverticulitis; Hypocalcemia; Hypomagnesemia; Abdominal pain, unspecified abdominal location; Hypophosphatemia; Hypoalbuminemia; Benign prostatic hyperplasia with urinary retention; Anemia in chronic kidney disease, unspecified CKD stage 04/30/2025 Transplant - Ester Robin Follow Up Appointment
--- OUTSIDE RECORDS SUMMARY | 2025-04-28 08:47 | XMS_ITS | Encounter Summary ---
Author Organization [employer] Address [id number] [address] [place] [address] Care Team Providers Care Web Search Evaluator Name Role Phone Abebe Stewart MD Primary Care Provider [phone] Encounter Details Date Type Department Care Team (Late st Contact Info) Description 09/26/2024 Telephone [facility] [address] [place] [id number] Corazon Donahue LPN Social History Tobacco Use [...] Miscellaneous Notes * Telephone Encounter - Corazon Donahue LPN - 09/26/2024 9:21 AM EST ----- Message from DENZEL Maier sent at 09/26/2024 8:59 AM EST ----- His credit is significantly worse. I have not seen him in a long time. I???m not sure if he was following with a different group, but we need to start Dialysis on this patient soon. Please call aheadand go over signs of uremia. Please find out if he had seen a different neurologist, in the meantime * Telephone Encounter - Corazon Donahue LPN - 09/26/2024 9:21 AM EST Patient had not been seen due to him having [employer] insurance for awhile. 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 documented in this encounter Plan of Treatment [...] documented as of this encounter Care Teams Web Search Evaluator Relationship Specialty Start Date End Date Abebe Stewart MD [address] [place] [address], [address] [place] [address] PCP - General Pediatrics 05/21/17 documented as of this encounter
--- OUTSIDE RECORDS SUMMARY | 2025-04-28 08:47 | XMS_ITS | Encounter Summary ---
Author Organization [employer] Address [facility] [id number] [address] [place] [address] Care Team Providers Care Health Physicist Name Role Phone Abebe Stewart MD Primary Care Provider [phone] Encounter Details Date Type Department Care Team (Late st Contact Info) Description 09/05/2022 Orders Only [facility] [address] [place] [address] Brandi Campos RMA Social History Tobacco Use Types Packs/Day Years [...] documented as of this encounter Care Teams Health Physicist Relationship Specialty Start Date End Date Abebe Stewart MD [address] [place] [address], [address] [place] [address] PCP - General Pediatrics 05/21/17 documented as of this encounter
--- OUTSIDE RECORDS SUMMARY | 2025-04-28 08:47 | XMS_ITS | Clinical Summary ---
Author Organization [facility] Address [address] [place] [address] Care Team Providers Care Fire Warden Name Role Phone Abebe Stewart MD Primary Care Provider [phone] Abebe Tan MD Unavailable Allergies Active Allergy Reactions Criticality Noted Date Comments Amlodipine Swelling 06/23/2021 Leg edema Shellfish Derived Nausea And Vomiting Medium Vomiting Medications carvedilol (Coreg) 25 mg tablet 25 mg with breakfast and with evening meal. 05/23/20 24 Active tamsulosin (Flomax) 0.4 mg 24 hr capsuleIndicati ons:Urinary retention Take 2 capsules (0.8 mg) by mouth in the morning. 60 capsule 04/12/20 25 025 Active nystatin (Mycostatin) 100,000 unit/mL suspensionIndic ations:Encounte r for aftercare following kidney transplant Take 5 mL (500,000 Units) by mouth four times daily. Swish and swallow 600 mL 4 04/13/20 25 Active mycophenolate (Myfortic) 180 mg EC tabletIndicatio ns:Immunosuppre ssive management encounter following kidney transplant Take 4 tablets (720 mg) by mouth two times daily. 240 tablet 11 04/13/20 25 Active sulfamethoxazol e-trimethoprim (Bactrim DS) 800-160 mg tabletIndicatio ns:Immunosuppre ssive management encounter following kidney transplant Take 1 tablet by mouth 3 (three) times a week. On Wednesday, Wednesday, and Wednesday 12 tablet 04/13/20 25 Active valGANciclovir (Valcyte) 450 mg tabletIndicatio ns:Immunosuppre ssive management encounter following kidney transplant Take 1 tablet (450 mg) by mouth in the morning. As directed. 30 tablet 1 04/13/20 25 Active tacrolimus ER (Envarsus XR) 4 mg tablet ERIndications:I mmunosuppressiv e management encounter following kidney transplant Take 1 tablet (4 mg) by mouth in the morning. Script total 8.5 mg daily 30 tablet 11 04/13/20 25 Active tacrolimus ER (Envarsus XR) 1 mg tablet ERIndications:I mmunosuppressiv e management encounter following kidney transplant Take 3 tablets (3 mg) by mouth in the morning. Script total 8.5 mg daily 90 tablet 04/13/20 25 Active tacrolimus ER (Envarsus XR) 0.75 mg tablet ERIndications:I mmunosuppressiv e management encounter following kidney transplant Take 2 tablets (1.5 mg) by mouth in the morning. Script total 8.5 mg daily 60 tablet 04/13/20 25 Active sod phos di, mono-K phos mono (K Phos Neutral) tabletIndicatio ns:Encounter for aftercare following kidney transplant,Hypo phosphatemia Take 1 tablet by mouth two times daily. 04/16/20 25 Active bumetanide (Bumex) 1 mg tabletIndicatio ns:Encounter for aftercare following kidney transplant,Bila teral lower extremity edema Take 1 tablet (1 mg) by mouth in the morning. 30 tablet 04/16/20 25 Active finasteride (Proscar) 5 mg tabletIndicatio ns:Benign prostatic hyperplasia with urinary retention Take 1 tablet (5 mg) by mouth in the morning. Do not crush, chew, or split. 30 tablet 04/16/20 25 026 Active hydrALAZINE (Apresoline) 100 mg tabletIndicatio ns:Primary hypertension Take 1 tablet (100 mg) by mouth three times daily. 90 tablet 04/20/20 25 Active NIFEdipine XL (Procardia XL) 30 mg 24 hr tabletIndicatio ns:Primary hypertension Take 1 tablet (30 mg) by mouth in the morning. Do not crush, chew, or split. 30 tablet 04/23/20 25 Active calcium carbonate (Tums) 200 mg calcium (500 mg) chewable tabletIndicatio ns:Encounter for aftercare following kidney transplant,Hypo calcemia Chew 3 tablets (1,500 mg) two times daily. Without food 180 tablet 04/23/20 25 Active magnesium glycinate 100 mg magnesium capsuleIndicati ons:Hypomagnese brandee Take 3 capsules (300 mg) by mouth three times daily. 270 capsule 04/23/20 25 Active pantoprazole (ProtoNix) 40 mg EC tabletIndicatio ns:Abdominal pain, unspecified abdominal location Take 1 tablet (40 mg) by mouth before breakfast. Do not crush, chew, or split. 30 tablet 04/23/20 25 Active famotidine (Pepcid) 20 mg tabletIndicatio ns:Gastroesopha geal reflux disease without esophagitis Take 1 tablet (20 mg) by mouth at bedtime. 30 tablet 04/23/20 25 Active predniSONE (Deltasone) 10 mg tabletIndicatio ns:Immunosuppre ssive management encounter following kidney transplant Take 2 tablets (20 mg) by mouth in the morning. 60 tablet 04/23/20 25 Active hydrALAZINE (Apresoline) 50 mg tablet Take 50 mg by mouth three times daily. 05/23/20 24 025 Discontinued sodium bicarbonate 650 mg tablet Take 650 mg by mouth 3 times a day. 12/29/19 25 025 Discontinued(St op Taking at Discharge) clotrimazole (Mycelex) 10 mg trocheIndicatio ns:Kidney transplanted Take 1 tablet (10 mg) by mouth four times daily. 120 tablet 04/03/20 25 025 Discontinued(Th erapy completed) sulfamethoxazol e-trimethoprim (Bactrim DS) 800-160 mg tabletIndicatio ns:Kidney transplanted Take 1 tablet by mouth 3 (three) times a week. On Wednesday, Wednesday, and Wednesday 12 tablet 04/04/20 25 025 Discontinued(Re order) valGANciclovir (Valcyte) 450 mg tabletIndicatio ns:Kidney transplanted Take 1 tablet (450 mg) by mouth in the morning. As directed. 30 tablet 04/03/20 25 025 Discontinued(Re order) mycophenolate (Myfortic) 180 mg EC tabletIndicatio ns:Kidney transplanted Take 4 tablets (720 mg) by mouth two times daily. (LEOPOLDO initial fill only - iMEDs) 240 tablet 04/03/20 025 Discontinued tacrolimus ER (Envarsus XR) 1 mg tablet ERIndications:K idem transplanted Take 3 tablets (3 mg) by mouth in the morning. as directed (iMEDs) 90 tablet 04/03/20 25 025 Discontinued tacrolimus ER (Envarsus XR) 0.75 mg tablet ERIndications:K idney transplanted Take 2 tablets (1.5 mg) by mouth in the morning. as directed (iMEDs) 60 tablet 04/03/20 025 Discontinued(St op Taking at Discharge) docusate sodium (Colace) 100 mg capsuleIndicati ons:Drug induced constipation Take 1 capsule (100 mg) by mouth two times daily. 60 capsule 04/04/20 025 Discontinued(Me d List Cleanup) famotidine (Pepcid) 20 mg tabletIndicatio ns:Kidney transplanted Take 1 tablet (20 mg) by mouth in the morning. 30 tablet 04/04/20 025 Discontinued(St op Taking at Discharge) oxyCODONE-aceta minophen (Percocet) 5-325 mg tabletIndicatio ns:Post-op pain Take 1 tablet by mouth every 6 (six) hours if needed for severe pain (8-10 pain score) for up to 20 doses. 20 tablet 04/04/20 25 025 Discontinued(Me d List Cleanup) tamsulosin (Flomax) 0.4 mg 24 hr capsuleIndicati ons:Kidney transplanted Take 1 capsule (0.4 mg) by mouth in the morning for 30 doses. 30 capsule 04/04/20 25 025 Discontinued(St op Taking at Discharge) tacrolimus ER (Envarsus XR) 1 mg tablet ERIndications:K idem transplanted Take 2 tablets (2 mg) by mouth in the morning. as directed (iMEDs) 04/04/20 25 025 Discontinued(St op Taking at Discharge) predniSONE (Deltasone) 10 mg tabletIndicatio ns:Kidney transplanted Take 1 tablet (10 mg) by mouth in the morning. 30 tablet 04/04/20 25 025 Discontinued(Re order) polyethylene glycol (Glycolax) 17 gram packetIndicatio ns:Drug induced constipation Take 17 g by mouth in the morning for 14 days. 14 packet 04/04/20 25 025 Discontinued(Me d List Cleanup) hydrALAZINE (Apresoline) 25 mg tabletIndicatio ns:Primary hypertension Take 3 tablets (75 mg) by mouth three times daily. 270 tablet 04/11/20 25 025 Discontinued(Re order) cefpodoxime (Vantin) 200 mg tabletIndicatio ns:Diverticulit is Take 2 tablets (400 mg) by mouth in the morning for 9 days. 18 tablet 04/11/20 25 025 Discontinued(Re order) metroNIDAZOLE (Flagyl) 500 mg tabletIndicatio ns:Diverticulit is Take 1 tablet (500 mg) by mouth every 12 (twelve) hours for 18 doses. 18 tablet 04/11/20 25 025 mycophenolate (Myfortic) 180 mg EC tabletIndicatio ns:Kidney transplanted Take 2 tablets (360 mg) by mouth two times daily. (LEOPOLDO initial fill only - iMEDs) 04/11/20 025 Discontinued(Re order) tacrolimus ER (Envarsus XR) 4 mg tablet ERIndications:K idney transplanted Take 1 tablet (4 mg) by mouth in the morning for 30 doses. 30 tablet 04/12/20 25 025 Discontinued(Re order) pantoprazole (ProtoNix) 40 mg EC tabletIndicatio ns:Abdominal pain, unspecified abdominal location Take 1 tablet (40 mg) by mouth before breakfast and before evening meal. Do not crush, chew, or split. 60 tablet 04/11/20 25 025 Discontinued(Re order) sod phos di, mono-K phos mono (K Phos Neutral) tabletIndicatio ns:Encounter for aftercare following kidney transplant Take 2 tablets by mouth two times daily. 120 tablet 11 04/13/20 25 025 Discontinued(Re order) predniSONE (Deltasone) 10 mg tabletIndicatio ns:Immunosuppre ssive management encounter following kidney transplant Take 1 tablet (10 mg) by mouth in the morning. 30 tablet 04/13/20 025 Discontinued(Re order) cefpodoxime (Vantin) 200 mg tabletIndicatio ns:Diverticulit is Take 2 tablets (400 mg) by mouth two times daily for 4 days. 16 tablet 04/16/20 025 magnesium glycinate 100 mg magnesium capsuleIndicati ons:Encounter for aftercare following kidney transplant,Hypo magnesemia Take 2 capsules (200 mg) by mouth two times daily. 120 capsule 04/16/20 025 Discontinued(Re order) calcium carbonate (Tums) 200 mg calcium (500 mg) chewable tabletIndicatio ns:Encounter for aftercare following kidney transplant,Hypo calcemia Chew 2 tablets (1,000 mg) two times daily. Without food 120 tablet 04/16/20 025 Discontinued(Re order) magnesium glycinate 100 mg magnesium capsuleIndicati ons:Hypomagnese brnadee Take 3 capsules (300 mg) by mouth two times daily. 180 capsule 04/20/20 025 Discontinued(Re order) Active Problems Problem Noted Date Diagnosed Date Immunosuppressive management encounter following kidney transplant 04/23/2025 Hypoalbuminemia 04/23/2025 Immunosuppression 04/17/2025 Benign prostatic hyperplasia with urinary retent ion 04/17/2025 Hypophosphatemia 04/17/2025 Bilateral lower extremity edema 04/17/2025 Hypocalcemia 04/17/2025 Hypomagnesemia 04/17/2025 Diarrhea 04/17/2025 Encounter for aftercare following kidney transpl ant 04/13/2025 Diverticulitis 04/11/2025 GI bleed 04/05/2025 Kidney transplanted 04/03/2025 H/O splenectomy 09/14/2024 Hypertensive disorder Overview (03/26/2025): Age of onset 59 Diverticular disease Overview (09/14/2024): s/p colectomy 2016 Vitamin D deficiency Proteinuria Secondary hyperparathyroidism of renal origin Anemia in chronic kidney disease (CKD) History of DVT (deep vein thrombosis) Overview (09/14/2024): proximal vein left leg (from distal calf to groin, 07/2021, was to be on lifelong warfarin but stopped after 05/2022 GI bleed) Renal cyst, left Gout Recurrent sinusitis NSAID long-term use Overview (09/14/2024): h/o CKD (chronic kidney disease) stage 5, GFR less than 15 ml/min Overview (03/26/2025): Secondary to HTN Lung nodule seen on imaging study Encounters Date Type Department Care Team Description 04/26/2025 9:05 AM EDT Lab [facility] Outpatient Draw Station [address] [place] [phone] Encounter for aftercare following kidney transplant; Transplanted kidney; Encounter for long-term (current) use of medications; Immunosuppressive management encounter following kidney transplant 04/26/2025 7:57 AM EDT - 04/26/2025 11:59 PM EDT Hospital Encounter [facility] 2A Infusion [address] [place] [phone] Kidney transplanted (Primary Dx); Anemia in chronic kidney disease, unspecified CKD stage; Encounter for aftercare following kidney transplant Discharge Disposition: Home or Self Care () 04/26/2025 Orders Only [facility] 2A Infusion [address] [place] [address] Nancy Champion RN 04/25/2025 Telephone [facility] Transplant [address] [place] [address] Daksha Domínguez, TaneshaD, BCPS Transplant Pharmacist - Drug Information 04/23/2025 11:40 AM EDT Lab [facility] Outpatient Draw Station [address] [place] [phone] Encounter for aftercare following kidney transplant; Immunosuppressive management encounter following kidney transplant 04/23/2025 10:15 AM EDT Follow-Up [facility] Urology [address] [place] [phone] Artie leon, ESPERANZA Pino 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); End stage renal disease (CMS/HCC) 04/23/2025 9:00 AM EDT Follow-Up [facility] Transplant [address] [place] [address] Jayjay Robin MD Immunosuppressive management encounter following kidney transplant (Primary Dx); Encounter for aftercare following kidney transplant; Primary hypertension; Gastroesophageal reflux disease without esophagitis; Diverticulitis; Hypocalcemia; Hypomagnesemia; Abdominal pain, unspecified abdominal location; Hypophosphatemia; Hypoalbuminemia; Benign prostatic hyperplasia with urinary retention; Anemia in chronic kidney disease, unspecified CKD stage 04/23/2025 7:00 AM EDT Lab [facility] Kidney Transplant Draw Station [address] [place] [address] Encounter for aftercare following kidney transplant; Transplanted kidney; Encounter for long-term (current) use of medications 04/23/2025 Orders Only [facility] Transplant [address] [place] [address] Zahra Rhoades, JUANA 04/23/2025 Orders Only [facility] 2A Infusion [address] [place] [address] Nancy Champion RN 04/20/2025 8:15 AM EDT Follow-Up [facility] Transplant [address] [place] [address] Wendy Lomeli MD Encounter for aftercare following kidney transplant (Primary Dx); Immunosuppressive management encounter following kidney transplant; Need for prophylactic antibiotic; Anemia in chronic kidney disease, unspecified CKD stage; Hypomagnesemia; Primary hypertension 04/20/2025 7:45 AM EDT Office Visit [facility] Kidney Transplant Draw Station [address] [place] [address] Encounter for aftercare following kidney transplant; Transplanted kidney; Encounter for long-term (current) use of medications 04/20/2025 7:01 AM EDT - 04/20/2025 11:59 PM EDT Hospital Encounter [facility] 2A Infusion [address] [place] [address] Kidney transplanted (Primary Dx); Anemia in chronic kidney disease, unspecified CKD stage; Encounter for aftercare following kidney transplant Discharge Disposition: Home or Self Care (01) 04/20/2025 Orders Only [facility] 2A Infusion [address] [place] [address] Nancy Champion, JUANA 04/16/2025 9:00 AM EDT Follow-Up [facility] Transplant [address] [place] [address] Jayjay Robin MD Immunosuppression (Primary Dx); Encounter for aftercare following kidney transplant; Primary hypertension; Benign prostatic hyperplasia with urinary retention; Diverticulitis; Anemia in chronic kidney disease, unspecified CKD stage; Hypophosphatemia; Bilateral lower extremity edema; Hypocalcemia; Hypomagnesemia; Diarrhea, unspecified type 04/16/2025 7:00 AM EDT Lab [facility] Kidney Transplant Draw Station [address] [place] [address] Encounter for aftercare following kidney transplant; Transplanted kidney; Encounter for long-term (current) use of medications; Hypocalcemia; Hypokalemia 04/16/2025 Orders Only [facility] 2A [address]fusion [address] [place] [address] Ness Saenz RN 04/16/2025 Orders Only [facility] 2A Infusion [address] [place] [address] Nancy Champion, JUANA 04/13/2025 9:00 AM EDT Clinical Support [facility] Transplant [address] [place] [address] Daksha Domínguez, TaneshaD, BCPS Encounter for medication review and counseling (Primary Dx) 04/13/2025 8:00 AM EDT Follow-Up [facility] Transplant [address] [place] [address] Wendy Lomeli MD Encounter for aftercare following kidney transplant (Primary Dx); Immunosuppressive management encounter following kidney transplant; Need for prophylactic antibiotic; Primary hypertension; Hypocalcemia; Hypophosphatemia; Hypokalemia; Anemia in chronic kidney disease, unspecified CKD stage; Urinary retention 04/13/2025 7:10 AM EDT Lab [facility] Kidney Transplant Draw Station [address] [place] [address] Encounter for aftercare following kidney transplant; Transplanted kidney; Encounter for long-term (current) use of medications; Encntr screen for malignant neoplasm of genitourinary organs 04/12/2025 Orders Only [facility] [address] [address] Nancy Champion RN 04/09/2025 11:59 PM EDT Anesthesia Event [facility] Invasive [facility] [address] [place] [address] Sachin Barry MD 04/05/2025 3:52 PM EDT - 04/11/2025 5:39 PM EDT Hospital Encounter [facility] 4AB [place] [address] Rolanda Haynes PA-C Yadav, Kunal, MD GI bleed (Primary Dx); History of renal transplant; Abdominal pain, unspecified abdominal location; Kidney transplanted; Primary hypertension; Diverticulitis; Urinary retention Discharge Disposition: Home or Self Care () 04/05/2025 Orders Only [facility] 2A [place] [address] Nancy Champion RN 04/05/2025 Travel 04/05/2025 Telephone [facility] [place] [address] Ruth Goodson Transplant Pharmacist - Discharge Phone Call 04/03/2025 Telephone [facility] [place] [address] Koby Nascimento, PharmD, BCTXP Transplant Pharmacist - Initial Discharge Prescription Plan 04/03/2025 Orders Only [facility] [place] [address] Grazyna Briseno CNP Encounter for aftercare following kidney transplant (Primary Dx); Transplanted kidney; Encounter for long-term (current) use of medications; Encntr screen for malignant neoplasm of genitourinary organs; Screening for human immunodeficiency virus; Encounter for screening for diseases of the blood and blood-forming organs and certain disorders involving the immune mechanism 03/31/2025 6:24 PM EDT Anesthesia Event [facility] Main Operating Room [address] [place] [address] Iam Blair MD Arnaut, Daniel, MD 03/31/2025 5:30 PM EDT - 03/31/2025 9:30 PM EDT Surgery [facility] Main Operating Room [address] [place] [address] Jayjay Robin MD TRANSPLANT, KIDNEY, DONOR UNOS# [id number] 03/31/2025 4:43 PM EDT - 04/04/2025 3:50 PM EDT Hospital Encounter [facility] 4AB Urology [address] [place] [address] Jayjay Robin MD CKD (chronic kidney disease) stage 5, GFR less than 15 ml/min (CMS/HCC) (Primary Dx); Stage 5 chronic kidney disease not on chronic dialysis (CMS/HCC); ESRD (end stage renal disease) (CMS/[facility]); Kidney transplanted; Drug induced constipation; Post-op pain Discharge Disposition: Home or Self Care () 03/31/2025 3:11 PM EDT - 03/31/2025 4:42 PM EDT Hospital Encounter [facility] [place] [phone] Discharge Disposition: Home or Self Care () 03/31/2025 3:06 PM EDT - 03/31/2025 3:10 PM EDT Hospital Encounter [facility] Heart and Vascular Center Heart Station [address] [place] [phone] Discharge Disposition: Home or Self Care () 03/31/2025 1:11 PM EDT - 03/31/2025 3:05 PM EDT Hospital Encounter [facility] [place] [place] [address] Discharge Disposition: Home or Self Care () 03/31/2025 Travel 03/31/2025 Telephone [facility] Transplant [address] [place] [address] Marva Mancini, JUANA 03/28/2025 Telephone [facility] Transplant [address] [place] [address] Abebe Serrano RN 03/28/2025 Telephone [facility] Transplant [address] [place] [address] Abebe Serrano RN 03/26/2025 Episode Changes [facility] Transplant [address] [place] [address] Radha Lind RN 03/22/2025 1:10 PM EDT Lab [facility] [place] [address] Pre-transplant evaluation for kidney transplant 03/02/2025 Telephone [facility] Transplant [address] [place] [address] Radha Lind, JUANA 02/16/2025 Telephone [facility] Transplant [address] [place] [address] Radha Lind, JUANA from Last 3 Months Immunizations Immunization Administration Dates Next Due Influenza, High Dose Seasonal, Preservative Free 04/06/2024 Influenza, High-dose Seasona l, Quadrivalent, Preservative Free 07/15/2023 Influenza, injectable, quadrivalent, preservativ e free 07/01/2018 Pneumococcal Conjugate PCV 13 08/27/2015 Pneumococcal Conjugate PCV 20 07/15/2023 Pneumococcal Polysaccharide PPV23 09/19/2010 RSV, Adult, Bivalent 09/24/2023 Zoster, Recombinant 09/24/2023,07/15/2023 Family History Medical History Relation Name Comments Heart disease Father Had pacemaker Relation Name Status Comments Father Sister Naseem Alive Social History Tobacco Use Types Packs/Day Years Used Date Smoking Tobacco: Never Smokeless Tobacco: Never Tobacco Cessation:Counseling Given: Not Answered Alcohol Use Standard Drinks/Week Comments Yes 0 (1 standard drink = 0.6 oz pur e alcohol) rare [facility] Utilities Answer Date Recorded In the past 12 months has e [employer], gas, oil, or water company threatened to [...] often do you attend chur ch or mu-ism services? Never 04/05/2025 Do you belong to any clubs o r organizations such as mormonism groups, unions, fraternal or athletic groups, or [...] Recorded Patient Health Questionnaire-2 Score 0 04/23/2025 [employer] - Occupational Stress [...] any time in the past 12 m ont, were you homeless or living in a [...] Heterosexual or Straight 09/03 7:43 AM EST Last Filed Vital Signs Vital Sign Reading [...] Mass Index 24.47 04/23/2025 10:50 AM EDT Plan of Treatment Upcoming Encounters Date Type Department Care Team (Late st Contact Info) Description 04/30/2025 9:00 AM EDT Follow-Up [facility] Transplant [address] [place] [phone] Jayjay Robin MD [address] [place] [address] 04/30/2025 9:15 AM EDT Appointment [facility] 2A [place] [address] 05/10/2025 1:00 PM EDT Procedure Visit [facility] Urology [address] [place] [address] Abebe Tan MD [address] [place] [address] 05/10/2025 1:30 PM EDT Appointment [facility] 2[place] [address] Health Maintenance Due Date Last Done Comments Medicare Annual Wellness (AWV) 1955 HIB Vaccines (1 of 1 - Risk 1-dose series) 10/29/1956 Meningococcal Vaccine (1 - Risk 2-dose series) 1957 Meningococcal B Vaccine (1 of 5 - Increased Risk) 1964 COVID-19 Vaccine (3 - Moderna risk series) 11/04/2024 10/07/2024, 04/06/2024, 07/15/2023, Additional history exists Influenza Vaccine (#1) 2025 , 07/15/2023, 07/01/2018 Depression Screening 04/23/2026 04/23/2025 Fall Risk Screening 04/23/2026 04/23/2025 Adult Tetanus 12/15/2034 12/15/2024 Colonoscopy Discontinued 10/05/2022 Pneumococcal Vaccine: 50+ Years Completed 07/15/2023, 08/27/2015, 09/19/2010 Zoster Vaccines Completed 09/24/2023, 07/15/2023 Colorectal Cancer Screening Discontinued FOBT Discontinued 04/05/2025 CT Colonography Discontinued FIT-DNA Discontinued FIT Discontinued HPV Vaccines Aged Out No longer eligi ble based on patient's age to complete this topic IPV Vaccines Aged Out No longer eligi ble based on patient's age to complete this topic Rotavirus Vaccines Aged Out No longer eligible based on patient's age to complete this topic Sigmoidoscopy Discontinued Medical Devices Implanted Type Area Student Ambassador Device Identifier Shelf Expiration Date Model / Serial / Lot Stent,Ureteral ,Pigtail,7fx12 cm - [id number] Implanted:Qty: 1 on 03/31/2025 by Jayjay Robin MD at [facility] Stent Left: Ureter [employer] [id number] 01/11/2028 [id number] / / [id number] Description:TRANSPLANT URETE R Procedures Procedure Name Priority Date/Time Associated Diagnosis Comments BILIRUBIN, DIRECT Routine 04/26/2025 8:0 6 AM EDT Encounter for aftercare following kidney transplant Transplanted kidney Encounter for long-term (current) use of medications CBC WITH AUTO DIFFERENTIAL Routine 04/26/2025 8:06 [...] Encounter for long-term (current) use of medications LEELA PROSPERA Routine 04/23/2025 11:36 AM EDT Encounter for aftercare following kidney transplant Immunosuppressive management encounter following kidney transplant URINALYSIS MICROSCOPIC WITH REFLEX CULTURE Routine 04/23/2025 [...] EDT Encounter for aftercare following kidney transplant BILIRUBIN, DIRECT Routine 04/23/2025 7:2 0 AM EDT Encounter for aftercare following kidney transplant Transplanted kidney Encounter for long-term (current) use of medications CBC WITH AUTO DIFFERENTIAL Routine 04/23/2025 7:20 [...] Encounter for long-term (current) use of medications URINALYSIS MICROSCOPIC WITH REFLEX CULTURE Routine 04/20/2025 [...] EDT Encounter for aftercare following kidney transplant BILIRUBIN, DIRECT Routine 04/20/2025 7:1 5 AM EDT Encounter for aftercare following kidney transplant Transplanted kidney Encounter for long-term (current) use of medications CBC WITH AUTO DIFFERENTIAL Routine 04/20/2025 7:15 [...] Encounter for long-term (current) use of medications URINALYSIS MICROSCOPIC WITH REFLEX CULTURE Routine 04/16/2025 [...] EDT Encounter for aftercare following kidney transplant BILIRUBIN, DIRECT Routine 04/16/2025 7:4 5 AM EDT Encounter for aftercare following kidney transplant Transplanted kidney Encounter for long-term (current) use of medications CBC WITH AUTO DIFFERENTIAL Routine 04/16/2025 7:45 AM EDT Encounter for aftercare following kidney transplant Transplanted kidney Encounter for long-term (current) use of medications VITAMIN D 25 HYDROXY Routine 04/16/2025 7:45 AM EDT Encounter for aftercare following kidney transplant Hypocalcemia Hypokalemia TACROLIMUS LEVEL Routine 04/16/2025 7:45 AM EDT [...] use of medications CBC AND DIFFERENTIAL Routine 04/16/2025 7:45 AM EDT Encounter for aftercare following kidney transplant Transplanted kidney Encounter for long-term (current) use of medications PTH, INTACT Routine 04/16/2025 7:45 AM EDT Encounter for aftercare following kidney transplant Hypocalcemia Hypokalemia URINALYSIS MICROSCOPIC WITH REFLEX CULTURE Routine 04/13/2025 11:58 AM EDT Immunosuppressive management encounter following kidney transplant URINALYSIS WITH REFLEX CULTURE Routine 04/13/2025 11:58 AM EDT Immunosuppressive management encounter following kidney transplant CREATININE, URINE, RANDOM Routine 04/13/2025 11:58 AM EDT Immunosuppressive management encounter following kidney transplant PROTEIN, URINE, RANDOM Routine 04/13/2025 11:58 AM EDT Immunosuppressive management encounter following kidney transplant URINE CULTURE Routine 04/13/2025 11:58 AM EDT Immunosuppressive management encounter following kidney transplant BILIRUBIN, DIRECT Routine 04/13/2025 7:3 6 AM EDT Encounter for aftercare following kidney transplant Transplanted kidney Encounter for long-term (current) use of medications SINGLE ANTIGEN CLASS II Routine 04/13/2025 7:36 AM EDT Encounter for aftercare following kidney transplant Transplanted kidney Encounter for long-term (current) use of medications SINGLE ANTIGEN CLASS I Routine 04/13/2025 7:36 AM EDT Encounter for aftercare following kidney transplant Transplanted kidney Encounter for long-term (current) use of medications CBC WITH AUTO DIFFERENTIAL Routine 04/13/2025 7:36 AM EDT Encounter for aftercare following kidney transplant Transplanted kidney Encounter for long-term (current) use of medications TESTOSTERONE, FREE AND TOTAL, AND SHBG Routine 04/13/2025 7:36 AM EDT Encounter for aftercare following kidney transplant Transplanted kidney Encounter for long-term (current) use of medications Encntr screen for malignant neoplasm of genitourinary organs LIPID PANEL Routine 04/13/2025 7:36 AM EDT Encounter for aftercare following kidney transplant Transplanted kidney Encounter for long-term (current) use of medications HEMOGLOBIN A1C Routine 04/13/2025 7:36 AM EDT Encounter for aftercare following kidney transplant Transplanted kidney Encounter for long-term (current) use of medications BK VIRUS, PLASMA, QUANTITATIVE Routine 04/13/2025 7:36 AM EDT Encounter for aftercare following kidney transplant Transplanted kidney Encounter for long-term (current) use of medications TACROLIMUS LEVEL Routine 04/13/2025 7:36 AM EDT Encounter for aftercare following kidney transplant Transplanted kidney Encounter for long-term (current) use of medications URIC ACID Routine 04/13/2025 7:36 AM EDT Encounter for aftercare following kidney transplant Transplanted kidney Encounter for long-term (current) use of medications PHOSPHORUS Routine 04/13/2025 7:36 AM EDT Encounter for aftercare following kidney transplant Transplanted kidney Encounter for long-term (current) use of medications MAGNESIUM Routine 04/13/2025 7:36 AM EDT Encounter for aftercare following kidney transplant Transplanted kidney Encounter for long-term (current) use of medications DONOR SPECIFIC ANTIBODY Routine 04/13/2025 7:36 AM EDT Encounter for aftercare following kidney transplant Transplanted kidney Encounter for long-term (current) use of medications COMPREHENSIVE METABOLIC PANEL Routine 04/13/2025 7:36 AM EDT Encounter for aftercare following kidney transplant Transplanted kidney Encounter for long-term (current) use of medications CBC AND DIFFERENTIAL Routine 04/13/2025 7:36 AM EDT Encounter for aftercare following kidney transplant Transplanted kidney Encounter for long-term (current) use of medications CBC WITH AUTO DIFFERENTIAL Pending Discharge 04/11/2025 4:13 AM EDT COMPREHENSIVE METABOLIC PANEL Pending Discharge 04/11/2025 4:13 AM EDT CBC AND DIFFERENTIAL Routine 04/11/2025 4:13 AM EDT MAGNESIUM Pending Discharge 04/11/2025 4:13 AM EDT TACROLIMUS LEVEL Pending Discharge 04/11/2025 4:13 AM EDT ECG 12-LEAD Routine 04/10/2025 4:34 PM EDT CHEST PHYSIOTHERAPY Routine 04/10/2025 1 :13 PM EDT CHEST PHYSIOTHERAPY Routine 04/10/2025 1 :13 PM EDT CHEST PHYSIOTHERAPY Routine 04/10/2025 1 :13 PM EDT US KIDNEY TRANSPLANT W DOPPLER STAT 04/10/2025 8:22 AM EDT MANUAL DIFFERENTIAL Pending Discharge 04/10/2025 4:16 AM EDT CBC WITH AUTO DIFFERENTIAL Pending Discharge 04/10/2025 4:16 AM EDT COMPREHENSIVE METABOLIC PANEL Pending Discharge 04/10/2025 4:16 AM EDT CBC AND DIFFERENTIAL Routine 04/10/2025 4:16 AM EDT MAGNESIUM Pending Discharge 04/10/2025 4:16 AM EDT TACROLIMUS LEVEL Pending Discharge 04/10/2025 4:15 AM EDT LAVENDER TOP Routine 04/09/2025 4:45 PM EDT EXTRA TUBES Routine 04/09/2025 4:45 PM EDT IRON AND TIBC Pending Discharge 04/09/2025 4:45 PM EDT XR CHEST 1 VIEW Routine 04/09/2025 1:58 PM EDT MANUAL DIFFERENTIAL Pending Discharge 04/09/2025 4:15 AM EDT CBC WITH AUTO DIFFERENTIAL Pending Discharge 04/09/2025 4:15 AM EDT COMPREHENSIVE METABOLIC PANEL Pending Discharge 04/09/2025 4:15 AM EDT CBC AND DIFFERENTIAL Routine 04/09/2025 4:15 AM EDT MAGNESIUM Pending Discharge 04/09/2025 4:15 AM EDT TACROLIMUS LEVEL Pending Discharge 04/09/2025 4:15 AM EDT CBC WITH AUTO DIFFERENTIAL Pending Discharge 04/08/2025 4:35 AM EDT COMPREHENSIVE METABOLIC PANEL Pending Discharge 04/08/2025 4:35 AM EDT CBC AND DIFFERENTIAL Routine 04/08/2025 4:35 AM EDT PHOSPHORUS Pending Discharge 04/08/2025 4:35 AM EDT MAGNESIUM Pending Discharge 04/08/2025 4:35 AM EDT TACROLIMUS LEVEL Pending Discharge 04/08/2025 4:35 AM EDT HEMOGLOBIN AND HEMATOCRIT, BLOOD STAT 04/07/2025 7:06 PM EDT RESPIRATORY VIRUS PCR PANEL Routine 04/07/2025 10:47 AM EDT ALBUMIN Routine 04/07/2025 8:13 AM EDT MANUAL DIFFERENTIAL Routine 04/07/2025 4 :29 AM EDT CBC WITH AUTO DIFFERENTIAL Routine 04/07/2025 4:29 AM EDT COMPREHENSIVE METABOLIC PANEL Routine 04/07/2025 4:29 AM EDT CBC AND DIFFERENTIAL Routine 04/07/2025 4:29 AM EDT PHOSPHORUS Routine 04/07/2025 4:29 AM EDT MAGNESIUM Routine 04/07/2025 4:29 AM EDT TACROLIMUS LEVEL Routine 04/07/2025 4:29 AM EDT XR CHEST 1 VIEW STAT 04/07/2025 1:45 AM EDT BLOOD CULTURE Routine 04/06/2025 7:35 AM EDT BLOOD CULTURE Routine 04/06/2025 7:35 AM EDT MANUAL DIFFERENTIAL STAT 04/06/2025 3 :21 AM EDT CBC WITH AUTO DIFFERENTIAL STAT Add-on 04/06/2025 3:21 AM EDT CBC AND DIFFERENTIAL STAT Add-on 04/06/2025 3:21 AM EDT HEPATIC FUNCTION PANEL Add-On 04/06/2025 3:21 AM EDT LAVENDER TOP Routine 04/06/2025 3:21 AM EDT EXTRA TUBES Routine 04/06/2025 3:21 AM EDT PHOSPHORUS Routine 04/06/2025 3:21 AM EDT MAGNESIUM Routine 04/06/2025 3:21 AM EDT TACROLIMUS LEVEL Routine 04/06/2025 3:21 AM EDT BASIC METABOLIC PANEL Routine 04/06/2025 3:21 AM EDT CBC STAT 04/05/2025 9:23 PM EDT US KIDNEY TRANSPLANT W DOPPLER STAT 04/05/2025 9:[address] ABDOMEN PELVIS WO IV CONTRAST STAT 04/05/2025 5:44 PM EDT POCT OCCULT BLOOD STOOL STAT 04/05/2025 5:12 PM EDT URINALYSIS MICROSCOPIC WITH REFLEX CULTURE STAT 04/05/2025 4:52 PM EDT URINALYSIS WITH REFLEX CULTURE STAT 04/05/2025 4:52 PM EDT URINE CULTURE Routine 04/05/2025 4:52 PM EDT APTT STAT 04/05/2025 4:51 PM EDT PROTIME-INR STAT 04/05/2025 4:51 PM EDT LACTIC ACID WITH 4 HOUR REFLEX STAT 04/05/2025 4:51 PM EDT BASIC METABOLIC PANEL STAT 04/05/2025 4:51 PM EDT CBC STAT 04/05/2025 4:51 PM EDT CBC Pending Discharge 04/04/2025 4:55 AM EDT PHOSPHORUS Pending Discharge 04/04/2025 4:55 AM EDT MAGNESIUM Pending Discharge 04/04/2025 4:55 AM EDT BASIC METABOLIC PANEL Pending Discharge 04/04/2025 4:55 AM EDT TACROLIMUS LEVEL Pending Discharge 04/04/2025 4:55 AM EDT CBC Pending Discharge 04/03/2025 5:01 AM EDT PHOSPHORUS Pending Discharge 04/03/2025 5:01 AM EDT MAGNESIUM Pending Discharge 04/03/2025 5:01 AM EDT BASIC METABOLIC PANEL Pending Discharge 04/03/2025 5:01 AM EDT TACROLIMUS LEVEL Pending Discharge 04/03/2025 5:01 AM EDT URINE CULTURE Routine 04/02/2025 11:01 AM EDT BLOOD CULTURE Routine 04/02/2025 10:10 AM EDT BLOOD CULTURE Routine 04/02/2025 10:10 AM EDT ALBUMIN Routine 04/02/2025 5:38 AM EDT CBC Routine 04/02/2025 5:38 AM EDT PHOSPHORUS Routine 04/02/2025 5:38 AM EDT MAGNESIUM Routine 04/02/2025 5:38 AM EDT BASIC METABOLIC PANEL Routine 04/02/2025 5:38 AM EDT TACROLIMUS LEVEL Routine 04/02/2025 5:38 AM EDT US KIDNEY TRANSPLANT W DOPPLER Routine 04/01/2025 11:10 AM EDT CBC Routine 04/01/2025 4:18 AM EDT PHOSPHORUS Routine 04/01/2025 4:18 AM EDT MAGNESIUM Routine 04/01/2025 4:18 AM EDT BASIC METABOLIC PANEL Routine 04/01/2025 4:18 AM EDT FERRITIN Routine 04/01/2025 4:18 AM EDT IRON AND TIBC Routine 04/01/2025 4:18 AM EDT POTASSIUM STAT 04/01/2025 12:13 AM EDT HIV COMBO 4G STAT 04/01/2025 12:13 AM EDT HCV QUANTITATIVE TMA Routine 04/01/2025 12:13 AM EDT HEPATITIS C ANTIBODY STAT 04/01/2025 12:13 AM EDT HEPATITIS B SURFACE ANTIGEN STAT 04/01/2025 12:13 AM EDT HEPATITIS B SURFACE ANTIBODY QUANT STAT 04/01/2025 12:13 AM EDT HEPATITIS B CORE ANTIBODY, TOTAL STAT 04/01/2025 12:13 AM EDT CBC STAT 03/31/2025 8:49 PM EDT BASIC METABOLIC PANEL STAT 03/31/2025 8:49 PM EDT URINE CULTURE Routine 03/31/2025 6:41 PM EDT ESRD (end stage renal disease) (CMS/HCC) ANESTHESIA PERIPHERAL IV PLACEMENT Routine 03/31/2025 6:38 PM EDT ND AN ELECTIVE ENDOTRACHEAL AIRWAY Routine 03/31/2025 6:36 PM EDT TRANSPLANT, KIDNEY, DONOR 03/31/2025 6:28 PM EDT esrd POTASSIUM STAT 03/31/2025 5:37 PM EDT HIV COMBO 4G STAT 03/31/2025 5:37 PM EDT HCV QUANTITATIVE TMA Routine 03/31/2025 5:37 PM EDT HEPATITIS C ANTIBODY STAT 03/31/2025 5:37 PM EDT HEPATITIS B SURFACE ANTIGEN STAT 03/31/2025 5:37 PM EDT HEPATITIS B SURFACE ANTIBODY QUANT STAT 03/31/2025 5:37 PM EDT HEPATITIS B CORE ANTIBODY, TOTAL STAT 03/31/2025 5:37 PM EDT ECG 12-LEAD STAT 03/31/2025 3:53 PM EDT CBC WITH AUTO DIFFERENTIAL STAT 03/31/2025 3:49 PM EDT TYPE AND SCREEN Routine 03/31/2025 3:49 PM EDT PROTIME-INR STAT 03/31/2025 3:49 PM EDT PHOSPHORUS STAT 03/31/2025 3:49 PM EDT MAGNESIUM STAT 03/31/2025 3:49 PM EDT CYTOMEGALOVIRUS ANTIBODY, IGG STAT 03/31/2025 3:49 PM EDT COMPREHENSIVE METABOLIC PANEL STAT 03/31/2025 3:49 PM EDT CBC AND DIFFERENTIAL STAT 03/31/2025 3:49 PM EDT APTT STAT 03/31/2025 3:49 PM EDT XR CHEST 1 VIEW STAT 03/31/2025 3:40 PM EDT DONOR CROSSMATCH Routine 03/22/2025 1:30 PM EDT Pre-transplant evaluation for kidney transplant SINGLE ANTIGEN CLASS II Routine 03/22/2025 1:30 PM EDT Pre-transplant evaluation for kidney transplant SINGLE ANTIGEN CLASS I Routine 03/22/2025 1:30 PM EDT Pre-transplant evaluation for kidney transplant URINALYSIS WITH MICROSCOPIC Routine 03/22/2025 1:30 PM EDT Chronic kidney disease, stage IV (severe) (CMS/HCC) Hypertension, essential Pre-transplant evaluation for kidney transplant PROTEIN, URINE, RANDOM Routine 03/22/2025 1:30 PM EDT Chronic kidney disease, stage IV (severe) (CMS/HCC) Hypertension, essential Pre-transplant evaluation for kidney transplant CREATININE, URINE, RANDOM Routine 03/22/2025 1:30 PM EDT Chronic kidney disease, stage IV (severe) (CMS/HCC) Hypertension, essential Pre-transplant evaluation for kidney transplant from Last 3 Months Results * (ABNORMAL) CBC auto differential (04/26/2025 8:06 AM EDT) Only the most recent of12 resultswithin the time period is included. Auto WBC 8.22 4.00 - 10.60 10*3/uL 04/26/2025 9:02 AM [facility] ([facility]) RBC 2.64(L) 4.20 - 5.70 10*6/uL 04/26/2025 9:02 AM [facility] ([facility]) Hemoglobin 8.5(L) 13.0 - 17.0 g/dL 04/26/2025 9:02 AM [facility] ([facility]) Hematocrit 26.1(L) 39.0 - 50.0 % 04/26/2025 9:02 AM [facility] ([facility]) MCV 98.9(H) 82.0 - 98.0 fL 04/26/2025 9:02 AM [facility] ([facility]) MCH 32.2 27.0 - 33.0 pg 04/26/2025 9:02 AM [facility] ([facility]) MCHC 32.6 32.0 - 35.0 g/dL 04/26/2025 9:02 AM [facility] ([facility]) RDW 18.0(H) 11.5 - 15.0 % 04/26/2025 9:02 AM [facility] ([facility]) Neutrophils % 66.4 40.0 - 72.0 % 04/26/2025 9:02 AM [facility] ([facility]) Lymphocytes % 22.4 20.0 - 45.0 % 04/26/2025 9:02 AM [facility] ([facility]) Monocytes % 9.5 5.0 - 12.0 % 04/26/2025 9:02 AM EDT [facility] ([facility]) Eosinophils % 0.2 0.0 - 6.0 % 04/26/2025 9:02 AM EDT [facility] ([facility]) Basophils % 0.2 0.0 - 1.0 % 04/26/2025 9:02 AM EDT [facility] ([facility]) Neutrophils Absolute 5.45 1.60 - 7.60 10*3/uL 04/26/2025 9:02 AM EDT [facility] ([facility]) Lymphocytes Absolute 1.84 1.20 - 4.00 10*3/uL 04/26/2025 9:02 AM EDT [facility] ([facility]) Monocytes Absolute 0.78 0.10 - 1.00 10*3/uL 04/26/2025 9:02 AM EDT [facility] ([facility]) Eosinophils Absolute 0.02 0.00 - 0.50 10*3/uL 04/26/2025 9:02 AM EDT [facility] ([facility]) Basophils Absolute 0.02 0.00 - 0.20 10*3/uL 04/26/2025 9:02 AM EDT [facility] ([facility]) Platelets 298 150 - 400 10*3/uL 04/26/2025 9:02 AM EDT [facility] ([facility]) nRBC % 0.0 0 % 04/26/2025 9:02 AM EDT [facility] ([facility]) Immature Granulocytes % 1.3(H) 0.0 - 1.0 % 04/26/2025 9:02 AM EDT [facility] ([facility]) Immature Granulocytes Absolute 0.11 0.00 - 0.20 10*3/uL 04/26/2025 9:02 AM EDT [facility] ([facility]) Blood Venous blood specimen / Unknown Venipuncture / Unknown 04/26/2025 8:06 AM EDT 04/26/2025 8:55 AM EDT us Grazyna Briseno [facility] BLOOD ORDERABLES Final Result [facility]) [address] [place] [address] * Tacrolimus level (04/26/2025 8:06 AM EDT) Only the most recent of14 resultswithin the time period is included. [facility] Tacrolimus Lvl 5.8 5.0 - 20.0 ng/mL 04/26/2025 1:23 PM EDT [facility] ([facility]) Comment:The [employer] Tacrolimus assay is a delayed one-step immunoassay for the quantitative determination of tacrolimus in human whole blood using the chemiluminescent microparticle immunoassay (CMIA) technology with flexible assay protocols, referred to as Chemiflex. Blood Venous blood specimen / Unknown Venipuncture / Unknown 04/26/2025 8:06 AM EDT 04/26/2025 8:55 AM EDT [facility] BLOOD ORDERABLES Final Result [facility]) [address] [place] [address] * (ABNORMAL) Uric acid (04/26/2025 8:06 AM EDT) Only the most recent of5 resultswithin the time period is included. [facility] Uric Acid 7.7(H) 4.4 - 7.6 mg/dL 04/26/2025 9:34 AM EDT [facility]) Blood Venous blood specimen / Unknown Venipuncture / Unknown 04/26/2025 8:06 AM EDT 04/26/2025 8:54 AM EDT [facility] BLOOD ORDERABLES Final Result [facility]) [address] [place] [address] * (ABNORMAL) Phosphorus (04/26/2025 8:06 AM EDT) Only the most recent of13 resultswithin the time period is included. [facility] Phosphorus 2.4(L) 2.5 - 5.0 mg/dL 04/26/2025 9:31 AM EDT [facility]) Blood Venous blood specimen / Unknown Venipuncture / Unknown 04/26/2025 8:06 AM EDT 04/26/2025 8:54 AM EDT [facility] BLOOD ORDERABLES Final Result Performing Organization Address City/[facility]/ZIP Co de Phone Number [facility]) [address] [place] [address] * (ABNORMAL) Magnesium (04/26/2025 8:06 AM EDT) Only the most recent of16 resultswithin the time period is included. Magnesium 1.8(L) 1.9 - 2.7 mg/dL 04/26/2025 9:31 AM EDT [facility]) Blood Venous blood specimen / Unknown Venipuncture / Unknown 04/26/2025 8:06 AM EDT 04/26/2025 8:54 AM EDT [facility] BLOOD ORDERABLES Final Result Performing Organization Address [facility] Co de Phone Number [facility]) [address] [place] [id number] * Bilirubin, direct (04/26/2025 8:06 AM EDT) Only the most recent of5 resultswithin the time period is included. Bilirubin, Direct 0.1 0 - 0.2 mg/dL 04/26/2025 9:31 AM EDT [facility]) Blood Venous blood specimen / Unknown Venipuncture / Unknown 04/26/2025 8:06 AM EDT 04/26/2025 8:54 AM EDT [facility] BLOOD ORDERABLES Final Result [facility] ([facility]) [address] [place] [address] * (ABNORMAL) Comprehensive metabolic panel (04/26/2025 8:06 AM EDT) Only the most recent of11 resultswithin the time period is included. Sodium 135(L) 136 - 145 mmol/L 04/26/2025 9:31 AM EDT [facility] ([facility]) Potassium 3.7 3.5 - 5.1 mmol/L 04/26/2025 9:31 AM EDT [facility] ([facility]) Chloride 100 98 - 107 mmol/L 04/26/2025 9:31 AM EDT [facility] ([facility]) CO2 28 21 - 31 mmol/L 04/26/2025 9:31 AM EDT [facility] ([facility]) Anion Gap 11 7 - 20 mmol/L 04/26/2025 9:31 AM EDT [facility] ([facility]) BUN 35(H) 7 - 25 mg/dL 04/26/2025 9:31 AM EDT [facility] ([facility]) Creatinine 2.64(H) 0.70 - 1.30 mg/dL 04/26/2025 9:31 AM EDT [facility] ([facility]) BUN/Creatinine Ratio 13.3 04/03 9:31 AM EDT [facility] ([facility]) Glucose 93 70 - 100 mg/dL 04/26/2025 9:31 AM EDT [facility] ([facility]) Calcium 8.1(L) 8.6 - 10.3 mg/dL 04/26/2025 9:31 AM EDT [facility] ([facility]) AST 11(L) 13 - 39 U/L 04/26/2025 9:31 AM EDT [facility] ([facility]) ALT (SGPT) 8 7 - 52 U/L 04/26/2025 9:31 AM EDT [facility] ([facility]) Alkaline Phosphatase 91 34 - 104 U/L 04/26/2025 9:31 AM EDT [facility] ([facility]) Total Protein 5.3(L) 6.0 - 8.3 g/dL 04/26/2025 9:31 AM EDT [facility] ([facility]) Albumin 3.3(L) 3.5 - 5.7 g/dL 04/26/2025 9:31 AM EDT [facility] ([facility]) Total Bilirubin 0.5 0.3 - 1.0 mg/dL 04/26/2025 9:31 AM EDT [facility] ([facility]) eGFR 25.3(L) >60.0 mL/min/1. 73m*2 04/26/2025 9:31 AM EDT [facility] ([facility]) Comment:[facility] s estimated glomerular filtration rate [...] 04/26/2025 8:54 AM EDT us Grazyna Briseno [facility] BLOOD ORDERABLES Final Result [facility] ([facility]) [address] [place], [place] [id number] * (ABNORMAL) Leela Prospera (19 Days Post [...] refer to the complete report via the [facility] Provider Portal or contact your [employer] Nurse Coordinator at [phone] PATIENT TEST HISTORY See Notes 04/27/2025 3:13 PM EDT [facility] Comment: Date: 04-23-2025, Value: dd-cfDNA% 1.19%, dd-cfDNA Quantity: 53 cp/ml, Total cfDNA: - Date: 04-23-2025, Value: dd-cfDNA% 1.19%, dd-cfDNA Quantity: 53 cp/ml, Total cfDNA: - Increased risk for rejection Test performed by [employer]. : [address] [place] [address]. CLIA ID #[id number]: CLIA [employer]: Imtiaz Wade, Ph.D., [facility] Blood Venous blood specimen / Unknown Venipuncture / Unknown 04/23/2025 11:36 AM EDT 04/23/2025 12:03 PM EDT us Jayjay Robin MD LAB MOLECULAR DIAGNOSTICS ORDERA BLES Final Result [facility] [address] [place] [address], * (ABNORMAL) Urinalysis microscopic with reflex culture (04/23/2025 11:07 AM EDT) Only the most recent of5 resultswithin the time period is included. RBC, Urine 6-10(A) None Seen, 0-2 /HPF 04/23/2025 1:57 PM EDT [facility] ([facility]) WBC, Urine 6-10(A) None Seen, 0-2 /HPF 04/23/2025 1:57 PM EDT [facility] ([facility]) Squamous Epithelial, Urine None Seen None Seen, Occasional , Few /LPF 04/23/2025 1:57 PM EDT [facility] ([facility]) Urine Urine specimen obtained by clean catch procedure / Unknown Non-blood Collection / Unknown 04/23/2025 11:07 AM EDT 04/23/2025 12:54 PM EDT us Jayjay Robin MD LAB URINE ORDERABLES Final Resul t [facility] ([facility]) [address] [place], [place] [id number] * (ABNORMAL) Urinalysis with reflex culture (04/23/2025 11:07 AM EDT) Only the most recent of5 resultswithin the time period is included. Color, Urine Yellow Colorless, Yellow, Light-Yellow 04/23/2025 1:57 PM EDT [facility] ([facility]) Clarity, Urine Clear Clear 04/23/2025 1:57 PM EDT [facility] ([facility]) pH, Urine 7.0 5.0 - 8.0 pH 04/23/2025 1:57 PM EDT [facility] ([facility]) Leukocytes, Urine Small(A) Negative 04/23/2025 1:57 PM EDT [facility] ([facility]) Nitrite, Urine Negative Negative 04/23/2025 1:57 PM EDT [facility] ([facility]) Protein, Urine 100(A) Negative mg/dL 04/23/2025 1:57 PM EDT [facility] ([facility]) Glucose, Urine Normal Normal mg/dL 04/23/20 25 1:57 PM EDT [facility] ([facility]) Bilirubin, Urine Negative Negative 04/23/2025 1:57 PM EDT [facility] ([facility]) Specific [place], Urine 1.014 1.010 - 1.030 04/23/2025 1:57 PM EDT [facility] ([facility]) Ketones, Urine Negative Negative mg/dL 04/23/2025 1:57 PM EDT [facility] ([facility]) Blood, Urine Trace(A) Negative 04/23/2025 1:57 PM EDT [facility] ([facility]) Urobilinogen, Urine Normal Normal mg/dL 04/23/2025 1:57 PM EDT [facility] ([facility]) Urine Urine specimen obtained by clean catch procedure / Unknown Non-blood Collection / Unknown 04/23/2025 11:07 AM EDT 04/23/2025 12:54 PM EDT us Jayjay Robin MD LAB URINE ORDERABLES Final Resul t Performing Organization Address City/[facility]/ZIP Co de Phone Number [facility] ([facility]) [address] [place] [address] * Protein, urine, random (04/23/2025 11:07 AM EDT) Only the most recent of5 resultswithin the time period is included. Protein, Ur 175.2 mg/dL 04/23/2025 3:12 PM EDT [facility] ([facility]) Comment:There are no establi shed reference values for random urine specimens. Urine Urine specimen obtained by clean catch procedure / Unknown Non-blood Collection / Unknown 04/23/2025 11:07 AM EDT 04/23/2025 12:54 PM EDT us Jayjay Robin MD LAB URINE ORDERABLES Final Resul t Performing Organization Address [facility] Co de Phone Number [facility] ([facility]) [address] [place] [id number] * Creatinine, urine, random (04/23/2025 11:07 AM EDT) Only the most recent of5 resultswithin the time period is included. Creatinine, Ur 99.0 26 - 299 mg/dL 04/23/2025 3:12 PM EDT [facility] ([facility]) Urine Urine specimen obtained by clean catch procedure / Unknown Non-blood Collection / Unknown 04/23/2025 11:07 AM EDT 04/23/2025 12:54 PM EDT us Jayjay Robin MD LAB URINE ORDERABLES Final Resul t Performing Organization Address City/[facility]/ZIP Co de Phone Number [facility] ([facility]) [address] [place] [address] * Urine culture, routine (04/23/2025 11:07 AM EDT) Only the most recent of7 resultswithin the time period is included. Urine Culture No growth at 48 hours JES 04/25/2025 7:45 AM EDT [facility] ([facility]) Urine Urine specimen obtained by clean catch procedure / Unknown Non-blood Collection / Unknown 04/23/2025 11:07 AM EDT 04/23/2025 12:54 PM EDT us Jayjay Robin MD LAB MICROBIOLOGY - GENERAL ORDER TAMEKA Final Result Performing Organization Address City/[facility]/ZIP Co de Phone Number [facility]) [address] [place] [address] * (ABNORMAL) Vitamin D 25 hydroxy (04/16/2025 7:45 AM EDT) Vit D, 25-Hydroxy 23.3(L) 30.0 - 80.0 ng/mL 04/16/2025 10:20 AM EDT [facility] ([facility]) Comment:>80.0 Toxicity possi ble Blood Venous blood specimen / Unknown Venipuncture / Unknown 04/16/2025 7:45 AM EDT 04/16/2025 8:08 AM EDT us Wendy Lomeli MD LAB BLOOD ORDERABLES Final Resul t [facility]) [address] [place] [address] * (ABNORMAL) PTH, intact (04/16/2025 7:45 AM EDT) PTH 190(H) 12 - 88 pg/mL 04/16/2025 9:16 AM EDT [facility] ([facility]) Blood Venous blood specimen / Unknown Venipuncture / Unknown 04/16/2025 7:45 AM EDT 04/16/2025 8:08 AM EDT Wendy Lomeli MD LAB BLOOD ORDERABLES Final Resul t [facility] ([facility]) [address] [place] [address] * Single antigen class II (04/13/2025 7:36 AM EDT) Only the most recent of2 resultswithin the time period is included. Tested Date [id number] 11:19 AM EDT [facility] TISSUE TYPING ([facility]) Comments No Class II donor specific antibody identified 04/17/2025 11:19 AM EDT [facility] TISSUE TYPING ([facility]) Test Method Class II Single Antigen 04/17/2025 11:19 AM EDT [facility] TISSUE TYPING ([facility]) Comment:Class II Antigen Jes rodolfo Signed By Signed by Abebe Stovall CHT([facility]) ALYSSA[facility] Director Of Primary Transplant Immunology 04/17/2025 11:19 AM EDT [facility] TISSUE TYPING ([facility]) Blood Venous blood specimen / Unknown Venipuncture / Unknown 04/13/2025 7:36 AM EDT 04/13/2025 7:46 AM EDT Grazyna Briseno CNP LAB BLOOD ORDERABLES Final Result Performing Organization Address City/[facility]/ZIP Co de Phone Number [facility] TISSUE TYPING ([facility]) [address] [place] [address], * Single antigen class I (04/13/2025 7:36 AM EDT) Only the most recent of2 resultswithin the time period is included. Tested Date [id number] 11:19 AM EDT [facility] TISSUE TYPING ([facility]) Test Method Class I Single Antigen 04/17/2025 11:19 AM EDT [facility] TISSUE TYPING ([facility]) Signed By Signed by Abebe Stovall [facility] ALYSSA([facility]), Director Of Primary Transplant Immunology 04/17/2025 11:19 AM EDT [facility] TISSUE TYPING ([facility]) Comment:Class I Antigen Micr obeads Comments No Class I donor specific antibody identified 04/17/2025 11:19 AM EDT [facility] TISSUE TYPING ([facility]) Blood Venous blood specimen / Unknown Venipuncture / Unknown 04/13/2025 7:36 AM EDT 04/13/2025 7:46 AM EDT Grazyna Finn [facility] LAB BLOOD ORDERABLES Final Result [facility] TISSUE TYPING ([facility]) [address] [place] [address], * (ABNORMAL) Testosterone, free and total, and SHBG (04/13/2025 7:36 AM EDT) Pathologist [facility] Testosterone 130(L) 193 - 740 ng/dL 04/13/2025 1:13 PM EDT [facility] Sex Hormone Binding 31 19 - 76 nmol/L 04/13/2025 1:13 PM EDT [facility] Testosterone, Free 25.0(L) 47.0 - 244.0 pg/mL 04/13/2025 1:13 PM EDT [facility] Comment: The concentration of free testosterone is derived from a mathematical expression based on the constant for the binding of testosterone to albumin and/or sex hormone binding globulin. Test Performed by [employer] [address] [place] [id number] - [employer] 04/13/2025 13:13 Blood Venous blood specimen / Unknown Venipuncture / Unknown 04/13/2025 7:36 AM EDT 04/13/2025 7:47 AM EDT Grazyna Finn CNP LAB BLOOD ORDERABLES Final Result [facility] [address] [place] [address] * BK virus, DNA, quantitative, Q3 Months (04/13/2025 7:36 AM EDT) Pathologist [facility] BK Virus Plasma Interpretation Not Detected Not Detected 04/13/2025 11:47 AM EDT [facility] ([facility]) BK Virus Quantitation Not Detected Not Detected copies/mL 04/13/2025 11:47 AM EDT [facility] ([facility]) Comment: Method: BK virus was measured by quantitative polymerase chain reaction using a fluorescent hydrolysis probe targeting the polyomavirus BK PSYCHIATRIC ARNP-1 gene. The lower limit of quantitation of the assay is 500 copies of BK genome per milliliter of plasma or urine, and any detectable BK DNA below that level is reported as: Detected, <500 copies/ml. Serial BK virus measurement can be used to monitor disease activity. (Reference: Crystal healyl. J CLIN MICRO 2004; 42:8325-4875). This test was developed and its performance characteristics determined by the [facility] Molecular Diagnostics Laboratory. It has not been approved by the US Food and Drug Administration. However, such approval is not required for clinical implementation, and test results have been shown to be clinically useful. This laboratory is CAP accredited and CLIA certified to perform high complexity testing. BK Virus Quant Log Not Detected Not Detected copies/mL 04/13/2025 11:47 AM EDT [facility] ([facility]) Blood Venous blood specimen / Unknown Venipuncture / Unknown 04/13/2025 7:36 AM EDT 04/13/2025 7:49 AM EDT Grazyna Briseno [facility] BLOOD ORDERABLES Final Result [facility] ([facility]) [address] [place] [address] * Hemoglobin A1c (04/13/2025 7:36 AM EDT) Hemoglobin A1C 5.1 4.0 - 6.0 % 04/15/2025 9:35 AM EDT [facility] ([facility]) Estimated Average Glucose 100 mg/dL 04/15/2025 9:35 AM EDT [facility] ([facility]) Blood Venous blood specimen / Unknown Venipuncture / Unknown 04/13/2025 7:36 AM EDT 04/13/2025 7:49 AM EDT us Grazyna Briseno [facility] BLOOD ORDERABLES Final Result [facility]) [address] [place] [address] * (ABNORMAL) Lipid panel (04/13/2025 7:36 AM EDT) Triglycerides 82 <150 mg/dL 04/13/2025 8:28 AM EDT [facility] ([facility]) Comment: TRIGLYCERIDE REFERENCE RANGE: 20 YEARS AND OLDER CARDIOVASCULAR RISK LESS THAN 150 mg/dL LOW RISK 150 TO 199 mg/dL BORDERLINE RISK 200 mg/dL AND GREATER HIGH RISK Cholesterol 117(L) 120 - 200 mg/dL 04/13/2025 8:28 AM EDT [facility] ([facility]) LDL Calculated 66 0 - 160 mg/dL 04/13/2025 8:28 AM EDT [facility]) HDL 35 23 - 92 mg/dL 04/13/2025 8:28 AM EDT [facility] ([facility]) Non HDL Cholesterol 82 04/13/2025 8:28 AM EDT [facility] ([facility]) Total VLDL-C 16 0 - 40 mg/dL 04/13/2025 8:28 AM EDT [facility] ([facility]) Cholesterol/HDL Ratio 3.3 mg/dL 04/13/2025 8:28 AM EDT [facility]) Blood Venous blood specimen / Unknown Venipuncture / Unknown 04/13/2025 7:36 AM EDT 04/13/2025 7:48 AM EDT us Grazyna Finn [facility] BLOOD ORDERABLES Final Result [facility]) [address] [place] [address] * ECG 12 lead (04/10/2025 4:34 PM EDT) Only the most recent of2 resultswithin the time period is included. Ventricular Rate 77 BPM GE MUSE Atrial Rate 77 BPM GE MUSE ND Interval 122 ms GE MUSE QRS DURATION 84 ms GE MUSE QT Interval 456 ms GE MUSE QTC CALCULATION(BAZE TT) 516 ms GE MUSE P [place] 55 degrees GE MUSE R-[place] 13 degrees GE MUSE T Wave [place] 48 degrees GE MUSE 04/10/2025 4:21 PM EDT 04/10/2025 9:02 PM EDT Impressions GE MUSE - 04/10/2025 9:02 PM EDT Normal sinus rhythm Prolonged QT Abnormal ECG When compared with ECG of 31-MAR-2025 15:45, Borderline criteria for Inferior infarct are no longer Present Nonspecific T wave abnormality now evident in Lateral Confirmed by Hayden Smith ([id number]) on 04/10/2025 9:02:14 PM Narrative Procedure Note Hayden Smith MD - 04/10/2025 IMPRESSION: Normal sinus rhythm Prolonged QT Abnormal ECG When compared with ECG of 31-MAR-2025 15:45, Borderline criteria for Inferior infarct are no longer Present Nonspecific T wave abnormality now evident in Lateral Confirmed by Hayden Smith ([id number]) on 04/10/2025 9:02:14 PM us Grazyna Briseno [facility] ECG ORDERABLES Final Resu lt GE MUSE * US KIDNEY TRANSPLANT W DOPPLER (04/10/2025 8:22 AM EDT) Only the most recent of3 resultswithin the time period is included. Anatomical Region Laterality Modality Kidney, Abdomen Ultrasound 04/10/2025 8:23 AM EDT Impressions 04/10/2025 8:25 AM EDT * No collecting system dilatation. * Simple appearing peritransplant fluid collection measuring 3.0 x 1.3 x 7.4 cm is slightly larger than on previous study likely representing postoperative seroma or hematoma. This is not exerting mass effect upon the underlying transplant kidney. * Small simple renal cyst. Electronically signed: Michel Valentine MD. Narrative 04/10/2025 8:25 AM EDT Renal transplant ultrasound HISTORY: Decreased urine output [...] the main renal artery measures 193 cm/s. Procedure Note Michel Valentine MD - 04/10/2025 Renal transplant ultrasound HISTORY: Decreased urine output COMPARISON: 04/05/2025 FINDINGS: Right renal transplant measures 13.1 cm. Cortical thickness preserved.Simple renal cyst measuring 1.2 cm. No peritransplant small anechoicperitransplant fluid collection measuring 3.0 x 1.3 x 7.4 cm (previously 1.2 x 0.9 x 3.8cm). Partially visualized transplant ureteral stent. No collecting systemdilatation. Color and spectral Doppler analysis of transplant kidney performed.Intrarenal resistive indices measure 0.58-0.77. Main transplant artery and vein arepatent with normal waveforms. Peak systolic velocity in the main renal arterymeasures 193 cm/s. IMPRESSION: *No collecting system dilatation. *Simple appearing peritransplant fluid collection measuring 3.0 x 1.3 x7.4 cm is slightly larger than on previous study likely representingpostoperative seroma or hematoma. This is not exerting mass effect upon the underlying transplant kidney. *Small simple renal cyst. Electronically signed: Michel Valentine MD. us Jayjay Robin MD [facility] US PROCEDURES Final Result * (ABNORMAL) Manual Differential (04/10/2025 4:16 AM EDT) Only the most recent of4 resultswithin the time period is included. Immature Granulocytes % 1.6(H) 0.0 - 1.0 % 04/10/2025 7:12 AM EDT [facility] ([facility]) Neutrophils Absolute 9.8(H) 1.6 - 7.6 10*3/uL 04/10/2025 7:12 AM EDT [facility] ([facility]) Lymphocytes Absolute 2.16 1.20 - 4.00 10*3/uL 04/10/2025 7:12 AM EDT [facility] ([facility]) Monocytes Absolute 1.65(H) 0.10 - 1.00 10*3/uL 04/10/2025 7:12 AM EDT [facility] ([facility]) Eosinophils Absolute 0.37 0.00 - 0.50 10*3/uL 04/10/2025 7:12 AM EDT [facility] ([facility]) Basophils Absolute 0.03 0.00 - 0.20 10*3/uL 04/10/2025 7:12 AM EDT [facility] ([facility]) Neutrophils % 68.8 40.0 - 72.0 % 04/10/2025 7:12 AM EDT [facility] ([facility]) Lymphocytes % 15.2(L) 20.0 - 45.0 % 04/10/2025 7:12 AM EDT [facility] ([facility]) Monocytes % 11.6 5.0 - 12.0 % 04/10/2025 7:12 AM EDT [facility] ([facility]) Eosinophils % 2.6 0.0 - 6.0 % 04/10/2025 7:12 AM EDT [facility] ([facility]) Basophils % 0.2 0.0 - 1.0 % 04/10/2025 7:12 AM EDT [facility] ([facility]) Immature Granulocytes Absolute 0.23(H) 0.00 - 0.20 10*3/uL 04/10/2025 7:12 AM EDT [facility] ([facility]) Blood Venous blood specimen / Unknown Venipuncture / Unknown 04/10/2025 4:16 AM EDT 04/10/2025 5:18 AM EDT us Grazyna Briseno [facility] BLOOD ORDERABLES Final Result [facility] ([facility]) [address] [place] [address] * Lavender Top (04/09/2025 4:45 PM EDT) Only the most recent of2 resultswithin the time period is included. Extra Tube Hold for add-ons. 04/09/2025 7:01 PM EDT [facility] ([facility]) Comment:Auto resulted. Blood Venous blood specimen / Unknown 04/09/2025 4:45 PM EDT 04/09/2025 5:27 PM EDT Jayjay Robin MD LAB BLOOD ORDERABLES Final Resul t [facility]) [address] [place] [address] * (ABNORMAL) Iron and TIBC (04/09/2025 4:45 PM EDT) Only the most recent of2 resultswithin the time period is included. Iron 63 50 - 212 ug/dL 04/09/2025 6:23 PM EDT [facility]) TIBC 123(L) 250 - 450 ug/dL 04/09/2025 6:23 PM EDT [facility]) Iron Saturation 51(H) 20 - 50 % 6:23 PM EDT [facility]) UIBC 60.0(L) 155.0 - 355.0 ug/dL 04/09/2025 6:23 PM EDT [facility] ([facility]) Blood Venous blood specimen / Unknown Venipuncture / Unknown 04/09/2025 4:45 PM EDT 04/09/2025 5:26 PM EDT Jayjay Robin MD LAB BLOOD ORDERABLES Final Resul t [facility]) [address] [place] [address] * XR chest 1 view (04/09/2025 1:58 PM EDT) Only the most recent of3 resultswithin the time period is included. Anatomical Region Laterality Modality Chest Computed Radiogr aphy 04/09/2025 2:00 PM EDT Impressions 04/09/2025 2:01 PM EDT Cardiomegaly with mild pulmonary vascular congestion. Electronically signed: Jean Chopra. Narrative 04/09/2025 2:01 PM EDT History: Cough. Desaturation. Portable upright chest: 04/09/2025 Comparison: 04/07/2025 Findings: A single portable upright image of the chest was obtained. The heart is enlarged. Mediastinal contours are stable with mild aortic tortuosity. Pulmonary vessels are distended with indistinct margins centrally. No confluent opacities present peripherally. There is no pneumothorax or pleural effusion. Procedure Note Jean Chopra MD - 04/09/2025 History: Cough. Desaturation. Portable upright chest: 04/09/2025 Comparison: 04/07/2025 Findings: A single portable upright image of the chest was obtained. The heart is enlarged. Mediastinal contours are stable with mild aortic tortuosity.Pulmonary vessels are distended with indistinct margins centrally. No confluentopacities present peripherally. There is no pneumothorax or pleural effusion. IMPRESSION: Cardiomegaly with mild pulmonary vascular congestion. Electronically signed: Jean Chopra. us Grazyna Briseno [facility] IMG XR PROCEDURES Final Re sult * (ABNORMAL) Hemoglobin and hematocrit, blood (04/07/2025 7:06 PM EDT) Hemoglobin 7.9(L) 13.0 - 17.0 g/dL 04/07/2025 7:28 PM EDT [facility] ([facility]) Hematocrit 23.3(L) 39.0 - 50.0 % 04/07/2025 7:28 PM EDT [facility] ([facility]) Blood Venous blood specimen / Unknown Venipuncture / Unknown 04/07/2025 7:06 PM EDT 04/07/2025 7:22 PM EDT us Jayjay Robin MD LAB BLOOD ORDERABLES Final Resul t [facility] ([facility]) [address] [place] [address] * Respiratory virus PCR panel (04/07/2025 10:47 AM EDT) Pathologist [facility] Adenovirus Not Detected Not Detected 04/07/2025 11:49 AM EDT [facility] ([facility]) Bordetella pertussis Not Detected Not Detected 04/07/2025 11:49 AM EDT [facility] ([facility]) Bordetella parapertussis Not Detected Not Detected 04/07/2025 11:49 AM EDT [facility] ([facility]) Chlamydia pneumoniae Not Detected Not Detected 04/07/2025 11:49 AM EDT [facility] ([facility]) Coronavirus 229E Not Detected Not Detected 04/07/2025 11:49 AM EDT [facility] ([facility]) Coronavirus HKU1 Not Detected Not Detected 04/07/2025 11:49 AM EDT [facility] ([facility]) Coronavirus NL63 Not Detected Not Detected 04/07/2025 11:49 AM EDT [facility] ([facility]) Coronavirus OC43 Not Detected Not Detected 04/07/2025 11:49 AM EDT [facility] ([facility]) Human Metapneumovirus Not Detected Not Detected 04/07/2025 11:49 AM EDT [facility] ([facility]) Human Rhinovirus + Enterovirus Not Detected Not Detected 04/07/2025 11:49 AM EDT [facility] ([facility]) Influenza A Not Detected Not Detected 04/07/2025 11:49 AM EDT [facility] ([facility]) Influenza B Not Detected Not Detected 04/07/2025 11:49 AM EDT [facility] ([facility]) Mycoplasma pneumoniae Not Detected Not Detected 04/07/2025 11:49 AM EDT [facility] ([facility]) Parainfluenza 1 Not Detected Not Detected 04/07/2025 11:49 AM EDT [facility] ([facility]) Parainfluenza 2 Not Detected Not Detected 04/07/2025 11:49 AM EDT [facility] ([facility]) Parainfluenza 3 Not Detected Not Detected 04/07/2025 11:49 AM EDT [facility] ([facility]) Parainfluenza 4 Not Detected Not Detected 04/07/2025 11:49 AM EDT [facility] ([facility]) Respiratory Syncytial Virus Not Detected Not Detected 04/07/2025 11:49 AM EDT [facility] ([facility]) SARS-CoV-2 Not Detected Not Detected 04/07/2025 11:49 AM EDT [facility] ([facility]) Swab Nasopharyngeal structure / Unknown Non-blood Collection / Unknown 04/07/2025 10:47 AM EDT 04/07/2025 10:51 AM EDT Narrative [facility] ([facility]) - 04/07/2025 11:49 AM EDT Testing methodology is a multiplexed nucleic acid test intended for the simultaneous qualitative detection and differentiation of nucleic acids from multiple viral and bacterial respiratory organisms in nasopharyngeal swabs (MINK SLICER). Abebe Tan MD LAB MICROBIOLOGY - GENERAL ORDER TAMEKA Final Result Performing Organization Address City/[facility]/ZIP Co de Phone Number [facility]) [address] [place] [address] * (ABNORMAL) Albumin (04/07/2025 8:13 AM EDT) Only the most recent of2 resultswithin the time period is included. [facility] Albumin 2.8(L) 3.5 - 5.7 g/dL 04/07/2025 8:56 AM EDT [facility] ([facility]) Blood Venous blood specimen / Unknown Venipuncture / Unknown 04/07/2025 8:13 AM EDT 04/07/2025 8:32 AM EDT Abebe Tan MD LAB BLOOD ORDERABLES Final Resul t [facility]) [address] [place] [address] * Blood culture, peripheral #2 (04/06/2025 7:35 AM EDT) Only the most recent of4 resultswithin the time period is included. [facility] Blood Culture No growth at 5 days JES 04/11/2025 8:01 AM EDT [facility] ([facility]) Blood Venous blood specimen / Unknown Venipuncture / Unknown 04/06/2025 7:35 AM EDT 04/06/2025 7:40 AM EDT us Jayjay Robin MD LAB MICROBIOLOGY - GENERAL ORDER TAMEKA Final Result [facility]) [address] [place] [address] * (ABNORMAL) Hepatic function panel (04/06/2025 3:21 AM EDT) [facility] Total Bilirubin 0.6 0.3 - 1.0 mg/dL 04/06/2025 6:58 AM EDT [facility]) Bilirubin, Direct 0.2 0 - 0.2 mg/dL 04/06/2025 6:58 AM EDT [facility]) Alkaline Phosphatase 66 34 - 104 U/L 04/06/2025 6:58 AM EDT [facility]) AST 23 13 - 39 U/L 04/06/2025 6:58 AM EDT [facility]) ALT (SGPT) 12 7 - 52 U/L 04/06/2025 6:58 AM EDT [facility]) Total Protein 4.7(L) 6.0 - 8.3 g/dL 04/06/2025 6:58 AM EDT [facility]) Albumin 2.4(L) 3.5 - 5.7 g/dL 04/06/2025 6:58 AM EDT [facility]) Blood Venous blood specimen / Unknown Venipuncture / Unknown 04/06/2025 3:21 AM EDT 04/06/2025 4:12 AM EDT us Jayjay Robin MD LAB BLOOD ORDERABLES Final Resul t [facility]) [address] [place] [address] * (ABNORMAL) Basic metabolic panel (04/06/2025 3:21 AM EDT) Only the most recent of7 resultswithin the time period is included. Sodium 139 136 - 145 mmol/L 04/06/2025 4:38 AM EDT [facility] ([facility]) Potassium 3.3(L) 3.5 - 5.1 mmol/L 04/06/2025 4:38 AM EDT [facility] ([facility]) Chloride 97(L) 98 - 107 mmol/L 04/06/2025 4:38 AM EDT [facility] ([facility]) CO2 28 21 - 31 mmol/L 04/06/2025 4:38 AM EDT [facility] ([facility]) BUN 116(H) 7 - 25 mg/dL 04/06/2025 4:38 AM EDT [facility] ([facility]) Creatinine 5.82(H) 0.70 - 1.30 mg/dL 04/06/2025 4:38 AM EDT [facility] ([facility]) Glucose 99 70 - 100 mg/dL 04/06/2025 4:38 AM T [facility] ([facility]) Calcium 7.2(L) 8.6 - 10.3 mg/dL 04/06/2025 4:38 AM EDT [facility] ([facility]) Anion Gap 17 7 - 20 mmol/L 04/06/2025 4:38 AM T [facility] ([facility]) eGFR 9.8(L) >60.0 mL/min/1. 73m*2 04/06/2025 4:38 AM EDT [facility] ([facility]) Comment:[facility] s estimated glomerular filtration rate [...] disproportionately affect any one group of individuals. BUN/Creatinine Ratio 19.9 11/2024 4:38 AM EDT [facility] ([facility]) Blood Venous blood specimen / Unknown Venipuncture / Unknown 04/06/2025 3:21 AM EDT 04/06/2025 4:12 AM EDT us Jayjay Robin MD LAB BLOOD ORDERABLES Final Resul t [facility] ([facility]) [address] [place] [address] * (ABNORMAL) CBC (04/05/2025 9:23 PM EDT) Only the most recent of7 resultswithin the time period is included. Auto WBC 25.40(H) 4.00 - 10.60 10*3/uL 04/05/2025 10:06 PM EDT [facility] ([facility]) RBC 2.81(L) 4.20 - 5.70 10*6/uL 04/05/2025 10:06 PM EDT [facility] ([facility]) Hemoglobin 8.7(L) 13.0 - 17.0 g/dL 04/05/2025 10:06 PM EDT [facility] ([facility]) Hematocrit 25.4(L) 39.0 - 50.0 % 04/05/2025 10:06 PM EDT [facility] ([facility]) MCV 90.4 82.0 - 98.0 fL 04/05/2025 10:06 PM EDT [facility] ([facility]) MCH 31.0 27.0 - 33.0 pg 04/05/2025 10:06 PM EDT [facility] ([facility]) MCHC 34.3 32.0 - 35.0 g/dL 04/05/2025 10:06 PM EDT [facility] ([facility]) RDW 14.8 11.5 - 15.0 % 04/05/2025 10:06 PM EDT [facility] ([facility]) Platelets 186 150 - 400 10*3/uL 04/05/2025 10:06 PM EDT [facility] ([facility]) Blood Venous blood specimen / Unknown Venipuncture / Unknown 04/05/2025 9:23 PM EDT 04/05/2025 9:35 PM EDT us Jayjay Robin MD LAB BLOOD ORDERABLES Final Resul t [facility] ([facility]) [address] [place] [address] * CT abdomen pelvis wo IV contrast (04/05/2025 5:44 PM EDT) Anatomical Region Laterality Modality Body, Pelvis, Abdomen Computed T omography 04/05/2025 6:33 PM EDT Impressions 04/05/2025 6:43 PM EDT 1. There is fluid surrounding the bladder in the extracranial space of Retzius. Bladder injury cannot be excluded and clinical correlation is advised. 2. Unremarkable noncontrast CT appearance of the right renal transplant with only trace fluid/blood products in the perinephric space. 3. Nonspecific small volume free intraperitoneal fluid. All CT scans at this facility use dose modulation, iterative reconstruction, and/or weight based dosing when appropriate to reduce radiation dose to as low as reasonably achievable. Electronically signed: Mark Cutler. Narrative 04/05/2025 6:[address] ABDOMEN AND PELVIS WITHOUT CONTRAST COMPARISON: 09/21/2024 CT abdomen and pelvis, ultrasound kidney transplant 04/01/2025 CLINICAL HISTORY: Post transplant abdominal pain. TECHNIQUE: Unenhanced axial images were obtained from the lung bases to the pubic symphysis with sagittal and coronal 2D reformatted images. Oral contrast administered: No. Automatic exposure control (AEC) was utilized. Findings: Trace pericardial fluid. Mild coronary artery calcification. Subcentimeter hypoattenuating probable benign cyst or hemangioma in the right hepatic lobe. Gallbladder is present. 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 Liver and spleen demonstrate no acute findings given compromised evaluation without intravenous contrast. Normal adrenal glands. 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 Status post right renal transplant. Right transplant ureteral stent with proximal stent in the inferior pole collecting system and distal stent within the bladder. Valderrama catheter noted in the bladder. No hydronephrosis of the transplant kidney. Trace right perinephric fluid including trace blood products without a discrete perinephric hematoma. There is fluid surrounding the bladder extending superiorly in the pelvis retroperitoneal space of Retzius. There is air in the bladder compatible with presence of Valderrama catheter. Foci of gas in the inferior pelvis on the right, consistent with recent surgery. Small volume free fluid no fluid. No bowel obstruction. Postoperative changes of the rectosigmoid. Colon diverticulosis without evidence for diverticulitis. No free fluid no air. Appendix is in the right lower quadrant is unremarkable. No abdominal aortic aneurysm. No acute osseous abnormality. 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 Procedure Note Mark Cutler MD - 04/05/2025 CT ABDOMEN AND PELVIS WITHOUT CONTRAST COMPARISON: 09/21/2024 CT abdomen and pelvis, ultrasound kidneytransplant 04/01/2025 CLINICAL HISTORY: Post transplant abdominal pain. TECHNIQUE: Unenhanced axial images were obtained from the lung bases tothe pubic symphysis with sagittal and coronal 2D reformatted images. Oralcontrast administered: No. Automatic exposure control (AEC) was utilized. Findings: Trace pericardial fluid. Mild coronary artery calcification. Subcentimeter hypoattenuating probable benign cyst or hemangioma in theright hepatic lobe. Gallbladder is present. Status post colectomy with splenosisin the left upper quadrant. Liver and spleen demonstrate no acute findingsgiven compromised evaluation without intravenous contrast. Normal adrenalglands. 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 Status post right renaltransplant. Right transplant ureteral stent with proximal stent in the inferior pole collecting system and distal stent within the bladder. Valderrama catheternoted in the bladder. No hydronephrosis of the transplant kidney. Trace rightperinephric fluid including trace blood products without a discrete perinephrichematoma. There is fluid surrounding the bladder extending superiorly in thepelvis retroperitoneal space of Retzius. There is air in the bladder compatiblewith presence of Valderrama catheter. Foci of gas in the inferior pelvis on theright, consistent with recent surgery. Small volume free fluid no fluid. No bowel obstruction. Postoperative changes of the rectosigmoid. Colon diverticulosis without evidence for diverticulitis. No free fluid noair. Appendix is in the right lower quadrant is unremarkable. No abdominal aortic aneurysm. No acute osseous abnormality. 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 IMPRESSION: 1. There is fluid surrounding the bladder in the extracranial space ofRetzius. Bladder injury cannot be excluded and clinical correlation is advised. 2. Unremarkable noncontrast CT appearance of the right renal transplantwith only trace fluid/blood products in the perinephric space. 3. Nonspecific small volume free intraperitoneal fluid. All CT scans at this facility use dose modulation, iterativereconstruction, and/or weight based dosing when appropriate to reduce radiation dose to aslow as reasonably achievable. Electronically signed: Mark Cutler. Jayjay Robin MD IMG CT PROCEDURES Final Result * (ABNORMAL) POCT occult blood stool manually resulted (04/05/2025 5:12 PM EDT) Pathologist [facility] Fecal Occult Blood Positive QC Pass/Fail Passed QC LOT # [id number] QC Expiration Date 03/28 Stool 04/05/2025 5:12 PM EDT Rolanda Haynes PA-C POINT OF CARE TEST ENTER/SHADY T ORDERABLES Final Result * Lactic acid with 4 hour reflex (04/05/2025 4:51 PM EDT) Pathologist [facility] Lactate 1.1 0.5 - 2.2 mmol/L 04/05/2025 5:19 PM EDT [facility] ([facility]) Blood Venous blood specimen / Unknown Venipuncture / Unknown 04/05/2025 4:51 PM EDT 04/05/2025 4:54 PM EDT Rolanda Haynes PA-C LAB BLOOD ORDERABLES Final R esult [facility] ([facility]) [address] [place] [address] * APTT (04/05/2025 4:51 PM EDT) Only the most recent of2 resultswithin the time period is included. aPTT 33.7 25.0 - 35.0 Seconds 04/05/2025 5:28 PM EDT [facility] ([facility]) Comment:Clinical significanc e of the APTT is questionable in the presence of heparin. Blood Venous blood specimen / Unknown Venipuncture / Unknown 04/05/2025 4:51 PM EDT 04/05/2025 4:54 PM EDT Rolanda Haynes PA-C LAB BLOOD ORDERABLES Final R esult [facility] ([facility]) [address] [place] [address] * (ABNORMAL) Protime-INR (04/05/2025 4:51 PM EDT) Only the most recent of2 resultswithin the time period is included. Protime 14.4 12.3 - 14.8 Seconds 04/05/2025 5:27 PM EDT [facility] ([facility]) INR 1.11(H) 0.90 - 1.10 04/05/2025 5:27 PM EDT [facility] ([facility]) Comment: [facility] RECOMMENDED INR FOR WARFARIN THERAPY CONDITION INR PROPHYLAXIS OF VENOUS THROMBOSIS 2-3 (HIGH-RISK SURGERY) TREATMENT OF VENOUS THROMBOSIS 2-3 TREATMENT OF PULMONARY EMBOLISM 2-3 PREVENTION OF SYSTEMIC EMBOLISM: 2-3 ACUTE MYOCARDIAL INFARCTION TISSUE HEART VALVES VALVULAR HEART DISEASE ATRIAL FIBRILLATION RECURRENT SYSTEMIC EMBOLISM MECHANICAL HEART VALVE 2.5-3.5 FROM: ORAL ANTICOAGULANTS. MECHANISM OF ACTION, CLINICAL EFFECTIVENESS, AND OPTIMAL THERAPEUTIC RANGE. CHEST 1995;108:[id number]-246S. Blood Venous blood specimen / Unknown Venipuncture / Unknown 04/05/2025 4:51 PM EDT 04/05/2025 4:54 PM EDT Rolanda Haynes PA-C LAB BLOOD ORDERABLES Final R esult Performing Organization Address City/[facility] Co de Phone Number [facility]) [address] [place], [place] [id number] * Ferritin (04/01/2025 4:18 AM EDT) Ferritin 207.0 24.0 - 336.0 ng/mL 04/01/2025 5:32 AM EDT [facility]) Blood Venous blood specimen / Unknown Venipuncture / Unknown 04/01/2025 4:18 AM EDT 04/01/2025 4:48 AM EDT Jayjay Robin MD LAB BLOOD ORDERABLES Final Resul t Performing Organization Address [facility] de Phone Number [facility]) [address] [place] [address] * HIV COMBO 4G (04/01/2025 12:13 AM EDT) Only the most recent of2 resultswithin the time period is included. HIV Combo 4G Negative Negative 04/01/2025 1:21 AM EDT [facility]) Blood Venous blood specimen / Unknown Venipuncture / Unknown 04/01/2025 12:13 AM EDT 04/01/2025 12:36 AM EDT Jayjay Robin MD LAB BLOOD ORDERABLES Final Resul t Performing Organization Address City/[facility]/ZIP Co de Phone Number [facility]) [address] [place] [address] * Hepatitis B Surface Antibody (04/01/2025 12:13 AM EDT) Only the most recent of2 resultswithin the time period is included. [facility] Hepatitis B Surface Ab 2.17 mIU/mL 04/01/2025 1:21 AM EDT [facility] ([facility]) Comment: INTERPRETATION: NONREACTIVE <8.00 mIU/mL INDETERMINATE 8.00 - 12.00 mIU/mL REACTIVE >12 mIU/mL Blood Venous blood specimen / Unknown Venipuncture / Unknown 04/01/2025 12:13 AM EDT 04/01/2025 12:36 AM EDT us Jayjay Robin MD LAB BLOOD ORDERABLES Final Resul t [facility]) [address] [place] [address] * HCV QUANTITATIVE TMA (04/01/2025 12:13 AM EDT) Only the most recent of2 resultswithin the time period is included. [facility] HCV TMA Interp Not Detected Not Detected 04/04/2025 2:41 PM EDT [facility] ([facility]) HCV Quantitative TMA 04/04/2025 2:41 PM EDT [facility] ([facility]) Comment:Not Detected HCV Quantitative Log 04/04/2025 2:41 PM EDT [facility]) Comment:Not Detected Blood Venous blood specimen / Unknown Venipuncture / Unknown 04/01/2025 12:13 AM EDT 04/01/2025 12:36 AM EDT Narrative [facility]) - 04/04/2025 2:41 PM EDT The Aptima HCV Quant Dx assay is a real-time store worker-mediated amplification (TMA) test which has a dynamic range of 10-100,000,000 IU/mL (1.0-8.0 log IU/mL). The Aptima HCV Quant Dx assay is used for both detection and quantitation of hepatitis C virus (HCV) RNA in human serum and plasma from HCV-infected individuals. The results from the Aptima HCV Quant Dx assay must be interpreted within the context of all relevant clinical and laboratory findings. The Aptima HCV Quant Dx assay is not approved for use as a screening test for the presence of HCV RNA in blood or blood products. us Jayjay Robin MD LAB MOLECULAR DIAGNOSTICS ORDERA BLES Final Result Performing Organization Address City/[facility]/ZIP Co de Phone Number [facility]) [address] [place] [id number] * Hepatitis C antibody (04/01/2025 12:13 AM EDT) Only the most recent of2 resultswithin the time period is included. Hepatitis C Ab Nonreactive Nonreactive 04/01/2025 1:26 AM EDT [facility]) Blood Venous blood specimen / Unknown Venipuncture / Unknown 04/01/2025 12:13 AM EDT 04/01/2025 12:36 AM EDT us Jayjay Robin MD LAB BLOOD ORDERABLES Final Resul t Performing Organization Address [facility] Co de Phone Number [facility]) [address] [place] [id number] * Hepatitis B core antibody, total (04/01/2025 12:13 AM EDT) Only the most recent of2 resultswithin the time period is included. Hep B Core Total Ab Nonreactive Nonreactive 04/01/2025 1:23 AM EDT [facility]) Blood Venous blood specimen / Unknown Venipuncture / Unknown 04/01/2025 12:13 AM EDT 04/01/2025 12:36 AM EDT us Jayjay Robin MD LAB BLOOD ORDERABLES Final Resul t [facility]) [address] [place] [address] * Hepatitis B surface antigen (04/01/2025 12:13 AM EDT) Only the most recent of2 resultswithin the time period is included. Hepatitis B Surface Ag Nonreactive Nonreactive 04/01/2025 1:24 AM EDT [facility]) Blood Venous blood specimen / Unknown Venipuncture / Unknown 04/01/2025 12:13 AM EDT 04/01/2025 12:36 AM EDT Jayjay Robin MD LAB BLOOD ORDERABLES Final Resul t Performing Organization Address City/[facility] Co de Phone Number [facility]) [address] [place] [address] * Potassium (04/01/2025 12:13 AM EDT) Only the most recent of2 resultswithin the time period is included. Pathologist [facility] Potassium 4.4 3.5 - 5.1 mmol/L 04/01/2025 12:57 AM EDT [facility]) Blood Venous blood specimen / Unknown Venipuncture / Unknown 04/01/2025 12:13 AM EDT 04/01/2025 12:36 AM EDT Jayjay Robin MD LAB BLOOD ORDERABLES Final Resul t [facility]) [address] [place] [address] * Peripheral IV (03/31/2025 6:38 PM EDT) Narrative Iam Blair MD - 03/31/2025 6:38 PM EDT Iam Blair MD 04/01/2025 3:36 AM Peripheral IV Date/Time: 03/31/2025 6:38 PM Inserted by: Rich Combs MD Placement Needle size: 18 G Laterality: left Location: hand Local anesthetic: none Site prep: alcohol Technique: anatomical landmarks Attempts: 1 Iam Blair MD ANESTHESIA ORDERABLES Final Result * ND AN ELECTIVE ENDOTRACHEAL AIRWAY (03/31/2025 6:36 PM EDT) Iam Mueller MD - 03/31/2025 6:36 PM EDT Iam Blair MD 04/01/2025 3:37 AM Airway Date/Time: 03/31/2025 6:36 PM Reason: elective Airway not difficult General Information and Staff Patient location during procedure: [place] Anesthesiologist: Iam Blair MD Resident/ELECTROMEDICAL SERVICE ENGINEER/CAA: Anthony Frank MD Performed: resident/ELECTROMEDICAL SERVICE ENGINEER/CAA Patient Condition Indications for airway management: anesthesia Patient position: sniffing Sedation level: deep Final Airway Details Preoxygenated: yes Final airway type: endotracheal airway Successful airway: ETT Cuffed: yes Successful intubation technique: direct laryngoscopy Adjuncts used in placement: intubating stylet and anterior pressure/BURP Endotracheal tube insertion site: oral Blade: Abbie Blade size: #4 ETT size (mm): 7.5 Cormack-Lehane Classification: grade IIb - view of arytenoids or posterior of glottis only Placement verified by: chest auscultation and capnometry Measured from: lips ETT to lips (cm): 23 Number of attempts at approach: 1 Number of other approaches attempted: 0 Iam Blair MD ANESTHESIA ORDERABLES Final Result * Cytomegalovirus antibody, IgG (03/31/2025 3:49 PM EDT) Cytomegalovirus IgG Ab Interpretation Positive 04/06/2025 12:16 PM EDT [facility] ([facility]) CYTOMEGALOVIRUS IGG ANTIBODY >10.00 U/mL 04/06/2025 12:16 PM EDT [facility] ([facility]) Comment: NORMAL RANGES: < 0.60 NEGATIVE ; NO DETECTABLE IgG ANTIBODY TO CMV >= 0.60 and < 0.70 EQUIVOCAL; REPEAT TESTING SUGGESTED >= 0.70 POSITIVE ; INDICATES PRESENCE OF DETECTABLE IgG ANTIBODY TO CM Blood Venous blood specimen / Unknown Venipuncture / Unknown 03/31/2025 3:49 PM EDT 03/31/2025 4:07 PM EDT Jayjay Robin MD LAB BLOOD ORDERABLES Final Resul t [facility] [address] [place] [address] * Type and screen (03/31/2025 3:49 PM EDT) ABO Grouping O 03/31/2025 5:07 PM EDT [facility] Rh Type NEG 03/31/2025 5:07 PM EDT [facility] Ab Scrn NEG 03/31/2025 5:07 PM EDT [facility] Blood Venous blood specimen / Unknown Venipuncture / Unknown 03/31/2025 3:49 PM EDT 03/31/2025 4:06 PM EDT Jayjay Robin MD LAB BLOOD BANK TEST ORDERABLES F inal Result [facility] * donor crossmatch (03/22/2025 1:30 PM EDT) Tested Date [id number] 8:46 PM EDT [facility] TISSUE TYPING ([facility]) Donor Name [id number] DONOR 03/31/2025 8:46 PM EDT [facility] TISSUE TYPING ([facility]) Crossmatch Overall Result Negative 03/31/2025 8:46 PM EDT [facility] TISSUE TYPING ([facility]) Sample Number [id number] 8:46 PM EDT [facility] TISSUE TYPING ([facility]) Sera Date 03/22/2025 03/31/2025 8:46 PM EDT [facility] TISSUE TYPING ([facility]) T Cell Channel Shift 22 03/31/2025 8:46 PM EDT [facility] TISSUE TYPING ([facility]) B Cell Channel Shift 0 03/31/2025 8:46 PM EDT [facility] TISSUE TYPING ([facility]) Sample Number 2 [id number] 03/31/2025 8:46 PM EDT [facility] TISSUE TYPING ([facility]) Sera Date 2 09/21/2024 03/31/2025 8:46 PM EDT [facility] TISSUE TYPING ([facility]) T Cell Channel Shift 2 39 03/31/2025 8:46 PM EDT [facility] TISSUE TYPING ([facility]) B Cell Channel Shift 2 3 03/31/2025 8:46 PM EDT [facility] TISSUE TYPING ([facility]) Performed By FLOW 03/31/2025 8:46 PM EDT [facility] TISSUE TYPING ([facility]) Comments Final Crossmatch retrospective to transplant. Patient met criteria for surgeon to waive a prospective final crossmatch. 03/31/2025 8:46 PM EDT [facility] TISSUE TYPING ([facility]) Signed By Signed by Abebe Stovall C[facility] ALYSSA(ASCP), Director Of Primary Transplant Immunology 03/31/2025 8:46 PM EDT [facility] TISSUE TYPING ([facility]) Blood Venous blood specimen / Unknown Venipuncture / Unknown 03/22/2025 1:30 PM EDT 03/22/2025 2:34 PM EDT us Jayjay Robin MD LAB BLOOD ORDERABLES Final Resul t [facility] TISSUE TYPING ([facility]) [address] [place] [address], [place] [phone] * (ABNORMAL) Urinalysis with microscopic (03/22/2025 1:30 PM EDT) Color, Urine Colorless Colorless, Yellow, Light-Yellow 03/22/2025 5:22 PM EDT [facility] ([facility]) Clarity, Urine Clear Clear 03/22/2025 5:22 PM EDT [facility] ([facility]) Specific [place], Urine 1.010 1.010 - 1.030 03/22/2025 5:22 PM EDT [facility] ([facility]) pH, Urine 7.0 5.0 - 8.0 pH 03/22/2025 5:22 PM EDT [facility] ([facility]) Leukocytes, Urine Negative Negative 03/22/2025 5:22 PM EDT [facility] ([facility]) Nitrite, Urine Negative Negative 03/22/2025 5:22 PM EDT [facility] ([facility]) Protein, Urine 100(A) Negative mg/dL 03/22/2025 5:22 PM EDT [facility] ([facility]) Glucose, Urine Normal Normal mg/dL 03/22/2025 5:22 PM EDT [facility] ([facility]) Bilirubin, Urine Negative Negative 03/22/2025 5:22 PM EDT [facility] ([facility]) Ketones, Urine Negative Negative mg/dL 03/22/2025 5:22 PM EDT [facility] ([facility]) Urobilinogen, Urine Normal Normal mg/dL 03/22/2025 5:22 PM EDT [facility] ([facility]) Blood, Urine Negative Negative 03/22/2025 5:22 PM EDT [facility] ([facility]) RBC, Urine 0-2 None Seen, 0-2 /HPF 03/22/2025 5:22 PM EDT [facility] ([facility]) WBC, Urine 0-2 None Seen, 0-2 /HPF 03/22/2025 5:22 PM EDT [facility] ([facility]) Squamous Epithelial, Urine None Seen None Seen, Occasional, Few /LPF 03/22/2025 5:22 PM EDT [facility] ([facility]) Urine Urine specimen obtained by clean catch procedure / Unknown Non-blood Collection / Unknown 03/22/2025 1:30 PM EDT 03/22/2025 5:03 PM EDT us Angela Yang MD LAB URINE ORDERABLES Final Resu lt [facility] ([facility]) [address] [place] [id number] from Last 3 Months Insurance [employer] [place] [employer] [place] [employer] [place] [employer] Advance Directives * Full Code (Latest Code Status on File) Date Activated Date Inactivated Comments 04/05/2025 4:59 PM 04/11/2025 7:39 PM * Full Code Date Activated Date Inactivated Comments 03/31/2025 10:16 PM 04/04/2025 5:50 PM * Full Code Date Activated Date Inactivated Comments 03/31/2025 8:46 PM 03/31/2025 10:16 PM * Full Code Date Activated Date Inactivated Comments 03/31/2025 4:47 PM 03/31/2025 8:46 PM Care Teams Fire Warden Relationship Specialty Start Date End Date Abebe Stewart MD [address] [place] [address], [address] [place] [address] PCP - General Internal Medicine 09/21/24 Abebe Tan MD [address] [place] [id number] Consulting Physician Urology 04/07/25
--- OUTSIDE RECORDS SUMMARY | 2025-04-28 08:47 | XMS_ITS | Encounter Summary ---
Author Organization Idibon tem Address [facility] [id number] [address] [place] [address] Care Team Providers Care Certified Emergency Vehicle Technician Name Role Phone Abebe Stewart MD Primary Care Provider [phone] Encounter Details Date Type Department Care Team (Late st Contact Info) Description 06/02/2023 Telephone PHN [facility] [address] [place] [address] Rm Brantley CMA Social History Tobacco Use Types Packs/Day [...] encounter Miscellaneous Notes * Telephone Encounter - Rm Brantley CMA - 06/02/2023 3:25 PM EDT Alberto called and states that he would only like to speak with Shereen not her nurse. Patient states that he has some private information that he needs to discuss with her. Patient does not have my chart. * Telephone Encounter - Corazon Whitehead LPN - 06/02/2023 3:25 PM EDT Patient called in demanding to speak to HRO he was advised that she is off today. He stated he had a very sensitive private matter to discuss with her and he wants to know when she will be calling him back. After speaking to pt for jaquelin chose to share his private matter. He stated his insurance is not taken and would like to know when that will change. After speak to clinic office assistant Aniceto, patient advised that we are unsure when that would be. Patient wants to know why if we are priviate practice does he get the [employer] [facility] hotline when he calls. I attempted to explain that we are private practice however we use [facility] as we have a office space in their building. documented in this encounter Plan of Treatment [...] documented as of this encounter Care Teams Certified Emergency Vehicle Technician Relationship Specialty Start Date End Date Abebe Stewart MD [address] [place] [address], [address] [place] [address] PCP - General Pediatrics 05/21/17 documented as of this encounter
[2025-04-28 09:08] LABS: Hematocrit 29.3 % (42.0-54.0); Hemoglobin 9.5 g/dL (14.0-18.0); Immature Granulocytes Abs Auto 0.38 10^3/uL (0.00-0.03); Immature Granulocytes Pct Auto 3.8 % (0.0-0.5); Lymphocytes Absolute Auto 1.7 10^3/uL (1.2-3.8); Mean Corpuscular HGB Conc 32.4 g/dL (29.9-35.2); Mean Corpuscular Hemoglobin 32.0 pg (25.9-34.0); Mean Corpuscular Volume 98.7 fL (80.0-94.0); Platelet Count 286 10^3/uL (150-450); Red Blood Count 2.97 10^6/uL (4.70-6.10); White Blood Count 10.1 10^3/uL (4.0-11.0)
--- NOTE | 2025-04-28 09:16 | ED.GENADUL1 ---
HPI HPI - General Adult General Chief complaint: Neuro Symptoms/Deficit Stated complaint: FEARED STROKE- RECENT KIDNEY TRANSPLANT Time Seen by Provider: 04/28/25 08:37 Source: family Mode of arrival: Carry History of Present Illness HPI narrative: 69-year-old male presents for speech difficulty. It began yesterday afternoon. It continued throughout the day and is slightly worse today. Today family noticed that the right side of his face is droopy. It was not like that when he went to bed last night. He does not complain of a headache. His sister gives most of the history and states that he was able to walk and eat breakfast on his own today. About 4 weeks ago he had a kidney transplant. The patient sister also noted that he had trouble writing with his right hand yesterday. He is right-handed. Related Data Home Medications ?Medication ?Instructions ?Recorded ?Confirmed bumetanide 1 mg tablet 1 mg PO DAILY 04/28/25 04/28/25 calcium carbonate (Antacid 600 mg PO BID 04/28/25 04/28/25 (calcium carbonate)) carvedilol 25 mg tablet 25 mg PO Q12H 04/28/25 04/28/25 famotidine 20 mg tablet 20 mg PO DAILY 04/28/25 04/28/25 finasteride 5 mg tablet 5 mg PO DAILY 04/28/25 04/28/25 hydralazine 100 mg tablet 100 mg PO TID 04/28/25 04/28/25 magnesium glycinate 100 mg (as 300 mg PO TID 04/28/25 04/28/25 glycinate) tablet (Mag Glycinate) mycophenolate sodium 180 mg 720 mg PO Q12H 04/28/25 04/28/25 tablet,delayed release (Myfortic) nifedipine 30 mg tablet,extended 30 mg PO DAILY 04/28/25 04/28/25 release 24 hr nystatin 100,000 unit/mL oral 5 ml PO QID 04/28/25 04/28/25 suspension pantoprazole 40 mg tablet,delayed 40 mg PO DAILY 04/28/25 04/28/25 release prednisone 10 mg tablet 20 mg PO DAILY 04/28/25 04/28/25 sodium di- and 1 tab PO BID 04/28/25 04/28/25 monophosphate-potassium phos monobasic 250 mg tablet (O-Dbie-Salxfhk) sulfamethoxazole 800 1 tab PO .3 times a week 04/28/25 04/28/25 mg-trimethoprim 160 mg tablet tacrolimus 4 mg tablet,extended 4 mg PO DAILY 04/28/25 04/28/25 release 24 hr (Envarsus XR) tamsulosin 0.4 mg capsule 0.8 mg PO DAILY 04/28/25 04/28/25 valganciclovir 450 mg tablet 450 mg PO DAILY 04/28/25 04/28/25 Allergies Allergy/AdvReac Type Severity Reaction Status Date / Time Unable to Assess Allergy Verified 04/28/25 08:35 Review of Systems ROS Narrative A ten point review of systems is negative except as noted above. Exam Narrative Exam Narrative: Nurses note and vital signs reviewed and patient is not hypoxic. General:The patient appears well and in no apparent distress.Patient is resting comfortably on cart. Skin:Warm, dry, no pallor noted.There is no rash noted. Head:Normocephalic, atraumatic Eye: Normal conjunctiva, no drainage, EOMI. PERRL Ears, Nose, Mouth, and Throat: oral mucosa is moist. Nares patent. Cardiovascular:Regular Rate and Rhythm Respiratory:Patient is in no distress, no accessory muscle use, lungs are clear to auscultation, no wheezing, rales or rhonchi Back:non-tender GI: Soft and nontender Musculoskeletal: The patient has no evidence of calf tenderness, no pitting edema, symmetrical pulses noted bilaterally Neurological: He is awake alert and fully oriented. He has facial droop on the right lower half of his face. Otherwise his cranial nerves are intact except for speech. He has significant dysarthria but does not seem to have any aphasia. Hand grasp is symmetric as his biceps and triceps strength. Lower extremity strength is symmetric as well. Gnbx-uh-njts testing is normal bilaterally. Iwcsft-fu-pskj testing is normal in the left arm but abnormal in the right arm. Psychiatric:Cooperative NIH score is 6. He received 1 point for not knowing the month, 2 points for partial paralysis of the lower face, 1 point for limb ataxia, and 2 points for severe dysarthria. Constitutional Vital Signs, click to edit/add: Last Vital Signs Temp 98.3 F 04/28/25 08:36 Pulse 69 04/28/25 09:30 Resp 18 04/28/25 09:30 BP 112/61 04/28/25 09:30 Pulse Ox 95 04/28/25 09:30 O2 Del Method Room Air 04/28/25 09:10 Course Vital Signs Vital signs: Vital Signs Temperature 98.3 F 04/28/25 08:36 Pulse Rate 76 04/28/25 08:36 Respiratory Rate 20 04/28/25 08:36 Blood Pressure 105/60 04/28/25 08:36 Pulse Oximetry 96 04/28/25 08:36 Oxygen Delivery Method Room Air 04/28/25 08:36 Temperature 98.3 F 04/28/25 08:36 Pulse Rate 69 04/28/25 09:30 Respiratory Rate 18 04/28/25 09:30 Blood Pressure 112/61 04/28/25 09:30 Pulse Oximetry 95 04/28/25 09:30 Oxygen Delivery Method Room Air 04/28/25 09:10 Medical Decision Making MDM Narrative Medical decision making narrative: CT brain is negative. The patient's symptoms began yesterday afternoon so he is not a thrombolytic candidate. His creatinine is elevated, he recently had kidney transplant, and he cannot receive IV contrast for CT angiograms. I spoke to Dr. Hills, neurology at [facility] and he accepts the patient. The patient is agreeable and stable for transfer. All findings were discussed thoroughly with the patient and his sister and he was administered an aspirin at the neurologist request. Differential Diagnosis Differential Diagnosis: Stroke, intracranial hemorrhage, hypoglycemia Lab Data Lab results reviewed: Yes I reviewed the patient's lab results Labs: Lab Results 04/28/25 04/28/25 Range/Units 08:39 08:55 WBC 10.1 (4.0-11.0) 10^3/uL RBC 2.97 L (4.70-6.10) 10^6/uL Hgb 9.5 L (14.0-18.0) g/dL Hct 29.3 L (42.0-54.0) % MCV 98.7 H (80.0-94.0) fL MCH 32.0 (25.9-34.0) pg MCHC 32.4 (29.9-35.2) g/dL RDW 17.6 H (11.0-15.0) % Plt Count 286 (150-450) 10^3/uL MPV 11.0 (9.5-13.5) fL Neut % (Auto) 70.3 (43.0-75.0) % Lymph % (Auto) 17.3 L (20.5-60.0) % Marshall % (Auto) 8.3 (1.7-12.0) % Eos % (Auto) 0.1 L (0.9-7.0) % Baso % (Auto) 0.2 (0.2-2.0) % Neut # (Auto) 7.1 H (1.4-6.5) 10^3/uL Lymph # (Auto) 1.7 (1.2-3.8) 10^3/uL Marshall # (Auto) 0.8 (0.3-0.8) 10^3/uL Eos # (Auto) 0.0 (0.0-0.7) 10^3/uL Baso # (Auto) 0.0 (0.0-0.1) 10^3/uL Abs Immat Gran (auto) 0.38 H (0.00-0.03) 10^3/uL Imm/Tot Granulo (auto) 3.8 H (0.0-0.5) % PT 11.9 H (9.0-11.6) sec INR 1.14 APTT 26.8 (22.3-36.2) sec Sodium 136 (136-145) mmol/L Potassium 3.6 (3.5-5.1) mmol/L Chloride 101 (98-107) mmol/L Carbon Dioxide 25.7 (21.0-32.0) mmol/L Anion Gap 12.9 BUN 34.0 H (7.0-18.0) mg/dL Creatinine 2.62 H (0.70-1.30) mg/dL Est GFR ( Amer) 30 L (>=60 mL/min/1.73m^2) Est GFR (Non-Af Amer) 24 L (>=60 mL/min/1.73m^2) BUN/Creatinine Ratio 13.0 Glucose 132 H (74-106) mg/dL Calcium 8.0 L (8.5-10.1) mg/dL POC Glucose 131 H (74-106) mg/dL Imaging Data CT scan - head: Radiologist's impression: ITS Impressions Brain CT 04/28/25 08:37 IMPRESSION: No acute intracranial pathology. Chronic age-related neurodegenerative changes are noted as above. 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 Impression dictated by: Tim Cole M.D. 04/28/2025 9:03 AM Dictation Location: [place] [address] Electronically authenticated by: [id number] Y Date: 04/28/2025 09:03 ECG Data Attestation: I personally reviewed and interpreted this ECG as follows: (EKG on my interpretation shows normal sinus rhythm with rate of 75 and no acute change.) Critical Care Time Critical Care Time Critical Care Time: Yes Total Critical Care Time: 40 Attestation: Due to the high probability of sudden and clinically significant deterioration in the patient's condition he/she required the highest level of my preparedness to intervene urgently I provided critical care time including documentation time, medication orders and management, reevaluation, vital sign assessment, ordering and reviewing of lab tests, ordering and reviewing of x-ray studies, and admission orders. Aggregate critical care time is 40 minutes including only time during which I was engaged in work directly related to his/her care and did not include time spent treating other patients simultaneously. Discharge Plan Discharge Chief Complaint: Neuro Symptoms/Deficit Clinical Impression: Cerebrovascular accident Patient Disposition: [facility] Time of Disposition Decision: 09:57 Discharge Location: [facility] Condition: Fair Mode of Transportation: EMS
[2025-04-28 09:22] LABS: Anion Gap 12.9; Blood Urea Nitrogen 34.0 mg/dL (7.0-18.0); Calcium 8.0 mg/dL (8.5-10.1); Carbon Dioxide 25.7 mmol/L (21.0-32.0); Chloride 101 mmol/L (98-107); Estimated GFR (African America 30 (>=60 mL/min/1.73m^2); Estimated GFR (Non-African Ame 24 (>=60 mL/min/1.73m^2); Glucose 132 mg/dL (74-106); Potassium 3.6 mmol/L (3.5-5.1); Sodium 136 mmol/L (136-145)
[2025-04-28 09:24] LABS: INR 1.14; Partial Thromboplastin Time 26.8 sec (22.3-36.2); Prothrombin Time 11.9 sec (9.0-11.6)
[2025-04-28] MEDS: ASPIRIN 81 MG TAB.CHEW PO (10:04)
== END 2025-04-28 14:34 | disposition short-term general hospital (02) ==
PROVIDERS: Emergency Provider Emergency Medicine; PCP Internal Medicine
DX: I63.9 Cerebral infarction, unspecified (principal); R29.706 NIHSS score 6; Z94.0 Kidney transplant status
CPT/HCPCS: 36415; 70450; 71045; 80048; 85025; 85610; 85730; 93005; 99285

== ENCOUNTER 2025-05-26 13:46 | Emergency (ER) | payer MEDICARE, SELFPAY ==
--- OUTSIDE RECORDS SUMMARY | 2024-01-04 10:40 | XMS_ITS ---
Author Organization [facility] in [place] Address [address] [place] [address] Care Team Providers Care Event Sales Assistant Name Role Phone Abebe Stewart MD Primary Care Provider Dat Moreno Unavailable [phone] Encounters Encounter Location Date Provider Diagnosis [facility] [place] [address] [place] [address] 01/04/2024 Dat Martinez Plan Of Treatment No Information Progress Notes * VIKASH Alberto LDOB:[birth year] (69 yo M)Acc No.[id number]:01/04/2024 UNLOCKED PROGRESS NOTE New Patient Patient: Alberto BUSTAMANTE :?DENZEL AlbertoDOB:1955???Age: 68 Y???Sex:MaleDate:01/04/2024hone:[phone]:[address] [place], [id number]:Abebe Stewart MD Subjective: * Chief Complaints: * * Medical History: Objective: * Vitals: Assessment: Plan: * Treatment: * * Electronic signature of DENZEL Alberto [id number] on 05/26/2025 at 01:54 PM EDTSign off status: PendingVisit Status:?R/S (Rescheduled) * Provider: DENZEL Harris Date: 0 01/04/2024 Generated for Printing/Faxing/eTransmitting on:?05/26/2025 01:54 PM EDT
--- OUTSIDE RECORDS SUMMARY | 2024-06-12 10:00 | XMS_ITS ---
Author Organization [facility] in [place] Address [address] [place] [address] Care Team Providers Care Client Support Manager Name Role Phone Abebe Stewart MD Primary Care Provider Abebe Nazario Unavailable [phone] REASON FOR VISIT 2 month ov Encounters Encounter Location Date Provider Diagnosis [facility] Nephrology [place] [address] [place] [address] 06/12/2024 Abebe Tovar Plan Of Treatment No Information Progress Notes * Alberto WALLER LDOB:[birth year] (69 yo M)Acc No.[id number]:06/12/2024 UNLOCKED PROGRESS NOTE Progress Note Patient: Alberto BUSTAMANTE :LisetAbebe Tovar MDDOB:1955???Age:68 Y ???Sex:MaleDate:06/12/2024hone:[phone]:[address], [place]Yoj:Abebe Stewart MD Subjective: * Chief Complaints: * 1 . 2 month ov. * Medical History: Objective: * Vitals: Assessment: Plan: * Treatment: * * Electronic signature of Abebe Tovar MD, [id number] on 05/26/2025 at 01:54 PM EDT Sign off status: PendingVisit Status:?R/S (Rescheduled) * Provider: Anthony Tovar MD Date: 08/12/2023 Generated for Printing/Faxing/eTransmitting on:?05/26/2025 01:54 PM EDT
--- OUTSIDE RECORDS SUMMARY | 2024-08-14 12:20 | XMS_ITS ---
Author Organization The [facility] in [place] Address [address] [place] [address] Care Team Providers Care Aids Counselor Name Role Phone Pat JOSEPH, Abebe Primary Care Provider Abebe Nazario [facility] [phone] Encounters Encounter Location Date Provider Diagnosis [facility] Nephrology [place] [address] [place] [address] 08/14/2024 Abebe Tovar Plan Of Treatment No Information Progress Notes * Alberto WALLER LDOB:[birth year] (69 yo M)Acc No.[id number]:08/14/2024 UNLOCKED PROGRESS NOTE Progress Note Patient: Alberto BUSTAMANTE :?Abebe Tovar MDDOB:1955???Age:69 Y ???Sex:MaleDate:08/14/2024Phone:[phone]:[address] [place], [place]Qtu:Abebe Stewart MD Subjective: * Chief Complaints: * * Medical History: Objective: * Vitals: Assessment: Plan: * Treatment: * * Electronic signature of Abebe Tovar MD, [id number] on 05/26/2025 at 02:03 AM EDT Sign off status: PendingVisit Status:?CANC (Cancelled) * Provider: Anthony Tovar MD Date: 0 08/14/2024 Generated for Printing/Faxing/eTransmitting on:?05/26/2025 02:03 AM EDT
--- OUTSIDE RECORDS SUMMARY | 2024-11-09 10:15 | XMS_ITS | Continuity of Care Document ---
Author Organization [facility] Address [address] [place] [address] Phone Care Team Providers Care Certified Nurses' Aide Name Role Phone Guille Laguerre Jr, DO Unavailable Unavailabl e Allergies, Adverse Reactions, Alerts Substance Reaction Status Criticality lisinopril Cough(moderate) Active No Informati on Sulfa (Sulfonamide Antibiotics) Blister of skin AND/OR mucosa(severe) Active No Information Procedures Procedure Date OFFICE/OUTPATIENT VISIT, NEW OFFICE/OUTPATIENT VISIT, EST, [facility] Advance Directives Directive Yes / No Effective Date File Name No Information Encounters Encounter Description Practice Location Reason(s) For Visit Diagnoses Date Provider Providers Copied on Encounter OFFICE/OUTPAT IENT VISIT, [facility] , [address] [place], [address], [place] tel:[phone] VINNIE [place] diplopia (chief complaint) Presence of intraocular lensDiplopiaOther secondary cataract, bilateral Shade Han. [address] [place] [address], [id number] , [place]. tel:[phone] Referring Provider: Guille Jordan, [address] [place] [address], [id number] . tel:[phone] Family History Family Member Type Diagnosis Age At Onset Father Problem Diabetes mellitus Problem No family history of Macular degeneration Brother Problem Diabetes mellitus Problem No family history of Retinal disease Mother Problem Glaucoma Mother Problem Macular degeneration Payers Payer name Insurance type Covered alliance party ID Authoriza tion(s) [employer] Medicare [id number] Social History Type Description Quantity Date Captured Comments Alcohol Use Details Unknown Caffeine Use Details Unknown Tobacco Use Status Current non-smoker Smoking Status Never smoker Non-Smoking Tobacco Use Details : No Details Available : No Details Available [id number] SexMale Chief Complaint And Reason For Visit From [...]
--- OUTSIDE RECORDS SUMMARY | 2025-05-11 13:00 | XMS_ITS | Encounter Summary ---
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 could go to sleep and not wake up?No05/11/2025 1:11 PM Gabby Lyons RN2. Have you actually had any thoughts of killing yourself?No05/11/2025 1:11 PM Gabby Lyons RN6. Have you ever done anything, started to do anything, or prepared to do anything to end your life?No05/11/2025 1:11 PM Gabby Lyons RN * Audit Alcohol ScreeningQuestionAnswerDate of AssessmentAuthorTo your knowledge, has alcohol ever caused significant problems for the patient? (e.g., significantdistress to patient or those close to patient or impairment in social, occupational, or other important areas of functioning)No05/11/2025 6:10 PM Sammie Cast RNBrief counselling was offered to the patientNo 05/11/2025 6:10 PM Sammie Cast RNReferral for addictions treatment was utgndfpOr81/10/2025 6:10 PM Sammie Cast RNHow often do you have a drink containing alcohol? 6:10 PM Sammie Cast RNHow many standard drinks containing alcohol do you have on a typical day?No05/11/2025 6:10 PM Sammie Cast RNHow often do you have six or more drinks on one occasion? 6:10 PM Sammie Cast RNAudit-C Bkqja009 6:10 PM Sammie Royal RN * Patient Strengths/Problem AreasQuestionAnswerDate of AssessmentAuthorStrengths (Must Choose Two)Supportive Family;Healthy Hipfjyrsmnb37/10/2025 6:10 PM Sammie Royal RN * Drug ScreeningQuestionAnswerDate of AssessmentAuthorTo your knowledge, have drugs or other substances ever caused significant problems for the patient? (e.g., significant distress to patient or those close to patient or impairment in social, occupational, or other important areas of functioning)No05/11/2025 6:10 PM Sammie Cast RNHave you used any substances (canabis, cocaine, heroin, hallucinogens, inhalants, etc.) in the past12 months?No05/11/2025 6:10 PM Sammie Cast RNHaandrae you used any prescription drugs other than prescribed in the past 12 months?No05/11/2025 6:10 PM Sammie Cast RN * Risk of SuicideAnswerDate of AssessmentAuthorNo Risk05/11/2025 1:11 PM Gabby Joseph RN * Care Plan - Safety GoalsQuestionAnswerDate of AssessmentAuthorFree from fall injuryAssess patient frequently for physical needs;Identify cognitive and physical deficits and behaviorsthat affect risk of falls;Bloomer fall precautions as indicated by assessment;Educate patient/family on patient safety, including physical rnqvhmufxnv41/10/2025 7:29 PM Daniel Georges RN * Modified AldreteQuestionAnswerDate of OihkhswfaiDzctyrQyvrakax960/10/2025 4:30 PM EDTCorine ThomasWxpuRslvughmjba451/10/2025 4:30 PM Corine ValdiviaaCirculation2 05/11/2025 4:30 PM Corine ValdiviaKcagQedpjmzcxtroh054/10/2025 4:30 PM Corine ValdiviaaOxygen Puxzvikycm269/10/2025 4:30 PM Corine ValdiviaaModified Gillian Score9 05/11/2025 4:30 PM Cata Valdivia * Modified Malnutrition Screening Tool (MST)QuestionAnswerDate of Assessment AuthorHave you recently lost weight without trying? 6:12 PM Sammie Royal RNHave you been eating poorly because of a decreased appetite? 6:12 PM Sammie Cast RNOn home tube feeding or TPN?0 05/11/2025 6:12 PM Sammie Cast RNDoes patient have a stage 2-4 pressure ulcer? 6:12 PM Sammie Cast RN * Weight Loss ScoreAnswerDate of LpmwmgaykzRkawyc516/10/2025 6:12 PM Sammie Cast RN * Malnutrition ScoreAnswerDate of SzxvhyufeaRrmryb416/10/2025 6:12 PM EDT Sammie Akhtar RN documented as of this encounter Mental Status * [place] Coma ScaleQuestionAnswerEntry DateAuthorBest Eye ResponseSpontaneous 05/12/2025 9:50 AM Katrin Mir RNBest Verbal ResponseOriented 05/12/2025 9:50 AM Katrin Mir RNBest Motor ResponseFollows commands 05/12/2025 9:50 AM Katrin Mir RNGlasgow Coma Scale Clrno5240/11/2025 9:50 AM Katrin Mir RN * Modified AldreteQuestionAnswerEntry SpnfHetlfxFrofhikx996/10/2025 4:30 PM EDT Corine ThomasQhbvIegjkpunhmn706/10/2025 4:30 PM EDTWilliam FlkbTbwfgxldzbt875/10/2025 4:30 PM EDTKirbstanislav, AcirWnkyxowlwnyvs735/10/2025 4:30 PM EDTKirbstanislav EmmaOxygen Twavyseyyu604/10/2025 4:30 PM EDTKirbstanislav, EmmaModified Gillian Mvlkx854 4:30 PM EDTKivincenzo Cata documented in this encounter Discharge Instructions * Discharge Instr - Diet* Yelitza Yan RN - 05/12/2025 12:49 PM EDT Diabetic male diet (60 grams of carbs per meal) Blood sugar checks before meals and at bedtime * Discharge Instr - Other Orders* Yelitza Yan RN - 05/12/2025 12:51 PM EDT Maintain rashid catheter until follow up appointment on Wednesday. Rashid care twice daily and as needed. * Attachments The following attachments cannot be sent through Care Everywhere. * Transurethral Resection of the Prostate (Zimbabwean) * Indwelling Urinary Catheter Bag Care Adult (Zimbabwean) documented in this encounter Medications at Time of Discharge MedicationSigDispense QuantityRefillsLast FilledStart DateEnd Date aspirin 81 mg EC tablet Indications:Ischemic stroke diagnosed during current admission ([facility])Take 1 tablet (81 mg) by mouth in the morning. 30 tablet bumetanide (Bumex) 1 mg tablet Indications:Encounter for aftercare following kidney transplant,Bilateral lower extremity edemaTake 1 tablet (1 mg) by mouth in the morning. 30 tablet 04/16/2025 calcium carbonate (Tums) 200 mg calcium (500 mg) chewable tablet Indications:Encounter for aftercare following kidney transplant,HypocalcemiaChew 3 tablets (1,500 mg) two times daily. Without food 180 tablet carvedilol (Coreg) 25 mg tablet 25 mg with breakfast and with evening meal.05/23/2024 famotidine (Pepcid) 20 mg tablet Indications:Gastroesophageal reflux disease without esophagitisTake 1 tablet (20 mg) by mouth at bedtime. 30 tablet finasteride (Proscar) 5 mg tablet Indications:Benign prostatic hyperplasia with urinary retentionTake 1 tablet (5 mg) by mouth in the morning. Do not crush, chew, or split. 30 tablet hydrALAZINE (Apresoline) 100 mg tablet Indications:Primary hypertensionTake 1 tablet (100 mg) by mouth three times daily. 90 tablet magnesium glycinate 100 mg magnesium capsule Indications:HypomagnesemiaTake 3 capsules (300 mg) by mouth three times daily. 270 capsule NIFEdipine XL (Procardia XL) 30 mg 24 hr tablet Indications:Primary hypertensionTake 1 tablet (30 mg) by mouth in the morning. Do not crush, chew, or split. 30 tablet nystatin (Mycostatin) 100,000 unit/mL suspension Indications:Encounter for aftercare following kidney transplantTake 5 mL (500,000 Units) by mouth four times daily. Swish and swallow 600 mL pantoprazole (ProtoNix) 40 mg EC tablet Indications:Abdominal pain, unspecified abdominal locationTake 1 tablet (40 mg) by mouth before breakfast. Do not crush, chew, or split. 30 tablet 04/23/2025 polyethylene glycol (Glycolax) 17 gram packet Indications:Benign prostatic hyperplasia with urinary retentionTake 17 g by mouth if needed each day (constipation). 30 packet sod phos di, mono-K phos mono (K Phos Neutral) tablet Indications:Encounter for aftercare following kidney transplant,Hypophosphatemia Take 1 tablet by mouth two times daily.04/16/2025 sulfamethoxazole-trimethoprim (Bactrim DS) 800-160 mg tablet Indications:Immunosuppressive management encounter following kidney transplant Take 1 tablet by mouth 3 (three) times a week. On Wednesday, Wednesday, and Wednesday 12 tablet tacrolimus ER (Envarsus XR) 4 mg tablet ER Indications:Immunosuppressive management encounter following kidney transplant Take 1 tablet (4 mg) by mouth in the morning. Script total 8.5 mg daily 30 tablet valGANciclovir (Valcyte) 450 mg tablet Indications:Immunosuppressive management encounter following kidney transplant Take 1 tablet (450 mg) by mouth in the morning. As directed. 30 tablet mycophenolate (Myfortic) 180 mg EC tablet Indications:Immunosuppressive management encounter following kidney transplant Take 3 tablets (540 mg) by mouth two times daily. predniSONE (Deltasone) 10 mg tablet Indications:Immunosuppressive management encounter following kidney transplant Take 2 tablets (20 mg) by mouth in the morning. 60 tablet tamsulosin (Flomax) 0.4 mg 24 hr capsule Indications:Urinary retentionTake 2 capsules (0.8 mg) by mouth in the morning. 60 capsule documented as of this encounter Progress Notes * GEOFFREY Lancaster - 05/12/2025 1:39 PM EDT Sent updates to [facility]. * Willam Glaser MD - 05/12/2025 9:01 AM EDT Images from the original note were not included. Jayjay Robin MD Urology - Progress Note Chief Complaint: s/p TURP procedure Subjective: No acute events overnight. Patient denies fevers/chills/nausea/vomiting/chest pain/shortness of breath. CBI draining well. Clamped this morning Will plan to DC with rashid Weight: 83 kg (182 lb 15.7 oz) Patient Vitals for the past 24 hrs: BP Temp Temp src Pulse Resp SpO2 Height Weight 05/12/25 0800 131/80 36.8 ??C (98.3 ??F) Oral 69 16 96 % -- -- 05/12/25 0400 122/65 36.8 ??C (98.2 ??F) Temporal 68 17 96 % -- -- 05/12/25 0349 -- -- -- -- -- -- -- 83 kg (182 lb 15.7 oz) 05/12/25 0000 114/64 -- -- 66 16 97 % -- -- 05/11/25 2300 117/63 -- -- 64 15 96 % -- -- 05/11/25 2200 98/64 -- -- 63 15 96 % -- -- 05/11/25 2100 110/57 36.9 ??C (98.4 ??F) Oral 60 14 97 % -- -- 05/11/25 1900 101/57 -- -- 60 13 97 % -- -- 05/11/25 1630 138/80 36 ??C (96.8 ??F) -- 58 14 96 % -- -- 05/11/25 1615 151/78 -- -- 61 15 96 % -- -- 05/11/25 1600 137/69 -- -- 60 15 95 % -- -- 05/11/25 1548 137/69 36.1 ??C (97 ??F) Temporal 59 16 99 % -- -- 05/11/25 1545 165/78 36.1 ??C (97 ??F) Temporal 66 15 98 % -- -- 05/11/25 1329 165/78 36.4 ??C (97.5 ??F) Temporal 66 14 98 % 1.854 m (6' 1 ) 79 kg (174 lb 2.6 oz) Intake/Output Summary (Last 24 hours) at 05/12/2025 0901 Last data filed at 05/12/2025 0730 Gross per 24 hour Intake 1075.5 ml Output 1001 ml Net 74.5 ml Results from last 7 days Lab Units 05/12/25 0405 SODIUM mmol/L 138 POTASSIUM mmol/L 3.7 CHLORIDE mmol/L 106 CO2 mmol/L 26 BUN mg/dL 26* CREATININE mg/dL 1.48* CALCIUM mg/dL 7.3* Results from last 7 days Lab Units 05/12/25 0405 05/11/25 1607 WBC AUTO 10*3/uL 12.22* 9.87 HEMOGLOBIN g/dL 9.8* 10.2* HEMATOCRIT % 31.0* 30.7* PLATELETS AUTO 10*3/uL 116* 129* Lab Results Component Value Date UROBILINOGEN Normal 04/23/2025 Physical Exam: General: No acute distress, A&Ox3 Pulmonary: Nonlabored breathing, equal chest rise bilaterally Cardiac: Regular rate Abdomen: soft, nondistended, nontender, kidney transplant incision c/d/i Extremities: Warm extremities, no calf tenderness : Rashid in place with clear yellow urine with slow drip CBI. Assessment: Alberto Waller is a 69 y.o.male with past medical history of ESRD s/p DDRT on 03/31/2025, admitted due to TURP Plan: Diet: regular diet Current/New Problems: Admitted secondary to TURP for BPH with retention History of DVT Non-anticoagulated status due to recent and remote history of GI bleeding ESRD 2/2 HTN s/p DDRT (03/31/2025) on immunosuppression Recent hospital admission for abdominal pain, bloody bowel movements. Hypomagnesemia Hypocalcemia BPH, recent history of urinary retention Immunosuppression: Maintenance: Tacrolimus 4 mg once daily, level 8.3, continue dose Myfortic 540 mg twice daily Prednisone 20 mg once daily Immunoprophylaxis: Bactrim M/W/F Nystatin Valcyte 450 mg once daily Fluid/Electrolytes: IVF: No fluids Electrolytes: Monitor/replace per protocol Diuretics: Bumex 1 mg once daily Hypertension: Home Rx: Coreg 25 mg twice daily Hydralazine 100 mg 3 times daily Nifedipine 30 mg daily DVT prophylaxis: SCD cuffs, encourage ambulation Bowel regimen: Colace & MiraLAX Protonix 40 mg daily Recent h/o stroke: restart aspirin 81 mg daily, check with Dr. Tan Respiratory: Encourage incentive spirometry use every hour BPH: Plan to keep rashid on discharge till Wednesday, finasteride 5 mg daily S/p TURP: Zosyn and Vanc for guru-op prophylaxis Disposition: Plan for DC today Willam Glaser MD 9:01 AM 05/12/25 Cosigned by Jayjay Robin MD at 05/12/2025 11:16 AM EDT Associated attestation - Jayjay Robin MD - 05/12/2025 11:16 AM EDT By using the attestations below, [...] be an additional personal documentation from me. Additional Comments: Doing well after TURP for BPH with urinary retention. To be discharged with Rashid catheter, CBI stopped today. Rashid catheter will be removed on Wednesday in clinic. Immunosuppression reviewed, Tac levels therapeutic. Discussed with Dr. Tan about starting aspirin for recent stroke. documented in this encounter H&P Notes * Abebe Tan MD - 05/11/2025 2:20 PM EDT Interval update History and physical from 05/07/2025 reviewed. There are no changes. No acute issues. Patient examined. No data found. Heart rate regular No increased work of breathing. There has been no change to the plan. Mark Smith 05/11/2025 I personally saw this patient on the day of the encounter, performed the vogt portion(s) of the service, participated in the management, and confirm the resident's documentation. Please note there maybe an additional personal documentation from me. Abebe Tan M.D. Source Note - Abebe Tan MD - 05/07/2025 9:45 AM EDT Procedure: Cystoscopy Diagnosis: Urinary retention The risks, benefits, and alternatives to the procedure were explained and consent was obtained. A flexible cystoscope was passed per urethra and the bladder was surveyed. There were no tumors, stones, or foreign bodies identified. The patient had lateral lobe obstructing hypertrophy and a smallintravesical median lobe. I discussed with him and his family the risks associated with TURP. Will arrange for this Wednesday. Abebe Tan MD documented in this encounter Nursing Notes * Gabby Ortiz RN - 05/11/2025 1:42 PM EDT PT ARRIVED TO PRE OP, ROOMED INTO 13. PT DIRECTED TO REMOVE ALL CLOTHING AND TO DON GOWN. PT STATESUNDERSTANDING. WARM BLANKET GIVEN. PRE OP COMPLETED, CALL LIGHT IN NASEEM DUMONT AT BEDSIDE. documented in this encounter Miscellaneous Notes * Care Plan - Katrin Armando RN - 05/12/2025 2:57 PM EDT Problem: Pain - Adult Goal: Verbalizes/displays adequate comfort level or baseline comfort level Outcome: Adequate for Discharge Problem: Safety - Adult Goal: Free from fall injury Outcome: Adequate for Discharge Problem: Discharge Planning Goal: Discharge to home or other facility with appropriate resources Outcome: Adequate for Discharge Problem: Chronic Conditions and Co-morbidities Goal: Patient's chronic conditions and co-morbidity symptoms are monitored and maintained or improved Outcome: Adequate for Discharge * Care Plan - Daniel Smith RN - 05/11/2025 7:43 PM EDT Problem: Pain - Adult Goal: Verbalizes/displays adequate comfort level or baseline comfort level Outcome: Progressing Flowsheets (Taken 05/11/20251928) Verbalizes/displays adequate comfort level or baseline comfort level: Encourage patient to monitor pain and request assistance Assess pain using appropriate pain scale Problem: Safety - Adult Goal: Free from fall injury Outcome: Progressing Flowsheets (Taken 05/11/20251928) Free from fall injury: Assess patient frequently for physical needs Identify cognitive and physical deficits and behaviors that affect risk of falls Bloomer fall precautions as indicated by assessment Educate patient/family on patient safety, including physical limitations Problem: Discharge Planning Goal: Discharge to home or other facility with appropriate resources Outcome: Progressing Flowsheets (Taken 05/11/20251928) Discharge to home or other facility with appropriate resources: Identify barriers to discharge with patient and caregiver Arrange for needed discharge resources and transportation as appropriate Identify discharge learning needs (meds, wound care, etc) Problem: Chronic Conditions and Co-morbidities Goal: Patient's chronic conditions and co-morbidity symptoms are monitored and maintained or improved Outcome: Progressing Flowsheets (Taken 05/11/20251928) Care Plan - Patient's Chronic Conditions and Co-Morbidity Symptoms are Monitored and Maintained or Improved: Monitor and assess patient's chronic conditions and comorbid symptoms for stability, deterioration,or improvement Collaborate with multidisciplinary team to address chronic and comorbid conditions and prevent exacerbation or deterioration Update acute care plan with appropriate goals if chronic or comorbid symptoms are exacerbated and prevent overall improvement and discharge The patient is Moderately Unstable - Medium risk of patient condition declining or worsening The patient's goals for the shift include d/c The clinical goals for the shift include VSS Over the shift, the patient did not make progress toward the following goals. Barriers to progression include bladder irrigation need. Recommendations to address these barriers include continue with CBI currently slow irrigation, tolerating well. * Anesthesia Transport Note - MILENA Chon - 05/11/2025 3:48 PM EDT Patient: Alberto Waller Procedure Summary Date: 05/11/25 Room / Location: [facility] OPERATING ROOM 05 / [facility] Operating Room Anesthesia Start: 1421 Anesthesia Stop: Procedure: TURP (TRANSURETHRAL RESECTION OF PROSTATE) Diagnosis: BPH with obstruction/lower urinary tract symptoms (BPH with obstruction/lower urinary tract symptoms [N40.1, N13.8]) Surgeons: Abebe Tan MD Responsible Provider: Iam Blair MD Anesthesia Type: general ASA Status: 3 Anesthesia Post Transport Note Transport to: PACU O2 Route: room air Patient Monitor: direct observation Transport: uneventful Patient condition is: stable * Op Note - Abebe Tan MD - 05/11/2025 2:23 PM EDT Date: 05/11/2025 Location: [facility] OR Name: Alberto Waller, : 1955, Diagnosis Pre-op Diagnosis * BPH with obstruction/lower urinary tract symptoms [N40.1, N13.8] Post-op Diagnosis * BPH with obstruction/lower urinary tract symptoms [N40.1, N13.8] Procedures TURP (TRANSURETHRAL RESECTION OF PROSTATE) 93995 - ND TRURL ELECTROSURG RESCJ PROSTATE BLEED COMPLETE Surgeons Primary: bAebe Tan MD Procedure Summary Anesthesia: General ASA: III Estimated Blood Loss: Per anesthetic record Total IV Fluids: Per anesthetic record Drains: [REMOVED] Closed/Suction Drain Right;Lateral;Inferior RLQ Bulb 19 Fr. (Removed) Site Description Healing 04/04/25 09 Dressing Status Clean;Dry;Intact 04/04/25899 Drainage Appearance Serosanguineous 04/04/25899 Status To bulb suction 04/04/25899 Output (mL) 10 mL 04/04/25 0600 [REMOVED] Closed/Suction Drain Right Hip Bulb (Removed) Site Description Healing 04/11/25 0915 Dressing Status Other (Comment) 04/10/25 2217 Drainage Appearance Serosanguineous 04/11/25914 Status To bulb suction 04/11/25 0915 Sutures Removed Intact No (Comment) 04/10/25 0016 Output (mL) 10 mL 04/11/25 0500 [REMOVED] Urethral Catheter Double-lumen 16 Fr. (Removed) Site Assessment Clean;Skin intact 04/03/25 1000 Rashid Care Yes 04/03/25 1000 Collection Container Urometer 04/03/25 1000 Securement Method Securing device (Describe) 04/03/25 1000 Reason for Continuing Urinary Catheterization New renal transplant 04/03/25 1000 Output (mL) 300 mL 04/03/25 1156 [REMOVED] Urethral Catheter 16 Fr. (Removed) Site Assessment Clean;Skin intact 04/09/25 1944 Rashid Care Yes 04/07/252001 Collection Container Urometer 04/07/252001 Securement Method Securing device (Describe) 04/07/252001 Reason for Continuing Urinary Catheterization Urinary retention/obstruction, blood clots 04/07/252001 Output (mL) 350 mL 04/09/25 1413 [REMOVED] Urethral Catheter Double-lumen 16 Fr. (Removed) Site Assessment Clean;Skin intact 04/11/25 0921 Rashid Care Yes 04/11/25 0921 Collection Container Standard drainage bag 04/11/25 0921 Securement Method Securing device (Describe) 04/11/25 0921 Reason for Continuing Urinary Catheterization Urinary retention/obstruction, blood clots 04/11/25 0921 Output (mL) 450 mL 04/11/25 0921 [REMOVED] Urethral Catheter (Removed) Site Assessment Clean;Skin intact 05/01/25 1212 Rashid Care Yes 05/01/25 1212 Collection Container Urometer 05/01/25 1212 Securement Method Leg strap 05/01/25 1212 Reason for Continuing Urinary Catheterization Urinary retention/obstruction, blood clots 05/01/25 1212 Output (mL) 275 mL 05/01/25 1212 [REMOVED] Urethral Catheter (Removed) Site Assessment Clean;Skin intact 05/02/25 1000 Rashid Care Yes 05/02/25 1000 Collection Container Urometer 05/02/25 1000 Securement Method Securing device (Describe) 05/02/25 1000 Output (mL) 250 mL 05/02/25 1000 [REMOVED] Urethral Catheter Latex;3-way 24 Fr. (Removed) Site Assessment Clean;Skin intact 05/12/25 0730 Rashid Care Yes 05/12/25 0500 Output (mL) 400 mL 05/12/25 1725 [REMOVED] Continuous Bladder Irrigation Triple-lumen 24 Fr (Removed) Site Assessment Clean;Skin intact 05/11/251926 Collection Container Other (Comment) 05/11/251926 Securement Method Securing device (Describe) 05/11/251926 Reason for Continuing Urinary Catheterization Cont bladder irrigation 05/11/251926 Patient Tolerance of Continuous Bladder Irrigation Tolerating well 05/11/251926 Rate Slow 05/12/25729 Irrigant Normal saline 05/12/25729 CBI Irrigation Intake (mL) 1200 mL 05/12/25729 CBI Urethral Catheter Output (mL) 900 mL 05/12/25729 CBI Net Output (mL) -300 mL 05/12/25729 Specimens ID Source Type Tests Collected By Collected At Frozen? Priority Lab ID A Prostate Tissue HISTOLOGY - TISSUE EXAM Abebe Tan MD 05/11/25 1530 Routine Description: PROSTATE CHIPS Staff: Assistant Manager Airside Operations: Ruth Duran RN Relief Scrub: Brenna Benites CST Scrub Person: Rossana Mccoy CST Orientee Assistant Manager Airside Operations: Shelby Raya RN Indications: Alberto Waller is an 69 y.o. male who developed urinary retention following renal transplant. He presents today for transurethral resection of the prostate. Procedure Details: The patient was taken the operating room and was identified by both name and medical record number.A surgical huddle was performed. General anesthesia was induced. The patient was placed into the lithotomy position and was prepped and draped in the usual sterile fashion. A surgical timeout was performed. A resectoscope was passed per urethra and the bladder was surveyed. The bladder itself had thick trabeculations but no urothelial lesions or stones. The intravesical median lobe was resected. We thenresected the bladder neck. An anterior groove was made. The lateral lobes were dropped and were resected to the level of the verumontanum. Hemostasis was achieved. The prostate chips were evacuated from the bladder. The sphincter appeared to be intact. A Rashid catheter was then placed on traction and a three-way irrigation. The patient was then awoken and returned to the recovery unit in satisfactory condition. I performed the entire procedure. Abebe Tan MD documented in this encounter Plan of Treatment DateTypeDepartmentCare Team (Latest Contact Info)Vrtfbwqhumi66/28/2025 8:00 AM EDTFollow[facility] [place] [phone] [place] [phone] 05/29/2025 2:00 PM EDTAppointment [facility] [place] [phone] 06/11/2025 9:00 AM ESTFollow-[facility] [place] [phone] [place] [phone] 06/19/2025 10:30 [facility] [address] [place] [phone] Izaiah Singh, H[employer] LINING PASTER J[address] ال[place]راقيTalbot [place], [place] [id number] 06/25/2025 11:00 AM ESTFollow-[facility] [address] [place] [phone] Sera Silverio, ESPERANZA [address] [place] [phone] documented as of this encounter Procedures Procedure NamePriorityDate/TimeAssociated DiagnosisCommentsPOCT GLUCOSE METER UNSOLICITED DHMBZQKZgqfjai62/11/2025 4:30 PM EDT TACROLIMUS HGNMNRpbetmk63/11/2025 4:05 AM EDT JALRlhuvoc34/11/2025 4:05 AM EDT QLIOBURQGMHzpkrhd70/11/2025 4:05 AM EDT UGJEDUCOTQunezyf98/11/2025 4:05 AM EDT BASIC METABOLIC VQCCKYxzazki40/11/2025 4:05 AM EDT GNMQRDN5505/11/2025 4:07 PM EDT HISTOLOGY - TISSUE ZBYIWwjpjnx25/10/2025 3:30 PM EDT BPH with obstruction/lower urinary tract symptoms ND TRURL ELECTROSURG RESCJ PROSTATE BLEED GNTRUZHO91/10/2025 2:23 PM EDT BPH with obstruction/lower urinary tract symptoms POCT GLUCOSE METER UNSOLICITED CPBNNUNJftjfpw50/10/2025 1:42 PM EDT documented in this encounter Results * (ABNORMAL) POCT glucose meter (05/12/2025 4:30 PM EDT)ComponentValueRef Range Test MethodAnalysis TimePerformed AtPathologist SignatureGlucose ASW188(H)70 - 105 mg/dL05/12/2025 4:41 PM [facility] ([place])Comment:srabee Specimen (Source)Anatomical Location / LateralityCollection Method / Volume Collection TimeReceived TimeBloodCapillary blood specimen / Wcbeivj2405/12/2025 4:30 PM EDT1 4:41 PM EDT Narrative [facility] ([place]) - 05/12/2025 4:41 PM EDT Waived Testing in the ED is performed under the ED CLIA certificate #[id number]. Authorizing ProviderResult TypeResult StatusAbebe FAJARDO BLOOD ORDERABLES Final ResultPerforming OrganizationAddressCity/State/ZIP CodePhone Number [facility] ([place]) [address] [place] [address] * Tacrolimus level (05/12/2025 4:05 AM EDT)ComponentValueRef RangeTest Method Analysis TimePerformed AtPathologist SignatureTacrolimus Lvl8.35.0 - 20.0 ng/mL05/12/2025 9:41 AM EDTAL[facility] ([facility]Comment:The CM [employer] D[employer]ATOR [employer]IC Tacrolimus assay is a delayed one-step immunoassay for the quantitative determination of tacrolimus in human whole blood using the chemiluminescent microparticle immunoassay (CMIA) technology with flexible assay protocols, referred to as Chemiflex.Specimen (Source)Anatomical Location / LateralityCollection Method / VolumeCollection TimeReceived TimeBloodVenous blood specimen / UnknownVenipuncture / Bxecvfi8705/12/2025 4:05 AM EDT 05/12/2025 4:34 AM EDT Narrative Authorizing ProviderResult TypeResult StatusAbebe FAJARDO BLOOD ORDERABLES Final ResultPerforming OrganizationAddressCity/State/ZIP CodePhone Number [facility]) [address] [place] [address] * (ABNORMAL) Phosphorus (05/12/2025 4:05 AM EDT)ComponentValueRef RangeTest MethodAnalysis TimePerformed AtPathologist SignaturePhosphorus2.4(L)2.5 - 5.0 mg/dL05/12/2025 5:01 AM EDT[facility] ([facility]Specimen (Source) Anatomical Location / LateralityCollection Method / VolumeCollection Time Received TimeBloodVenous blood specimen / UnknownVenipuncture / Unknown 05/12/2025 4:05 AM EDT1 4:35 AM EDT Narrative Authorizing ProviderResult TypeResult StatusAbebe FAJARDO BLOOD ORDERABLES Final ResultPerforming OrganizationAddressCity/State/ZIP CodePhone Number [facility]) [address] [place] [address] * (ABNORMAL) Magnesium (05/12/2025 4:05 AM EDT)ComponentValueRef RangeTest MethodAnalysis TimePerformed AtPathologist SignatureMagnesium1.8(L)1.9 - 2.7 mg/dL05/12/2025 5:01 AM [facility] ([facility]Specimen (Source) Anatomical Location / LateralityCollection Method / VolumeCollection Time Received TimeBloodVenous blood specimen / UnknownVenipuncture / Unknown 05/12/2025 4:05 AM EDT1 4:35 AM EDT Narrative Authorizing ProviderResult TypeResult StatusAbebe FAJARDO BLOOD ORDERABLES Final ResultPerforming OrganizationAddressCity/State/ZIP CodePhone Number [facility] ([facility] [address] [place] [address] * (ABNORMAL) CBC (05/12/2025 4:05 AM EDT)ComponentValueRef RangeTest Method Analysis TimePerformed AtPathologist SignatureAuto WBC12.22(H)4.00 - 10.60 10*3/uL05/12/2025 4:44 AM [facility] ([facility]RBC3.01(L)4.20 - 5.70 10*6/uL05/12/2025 4:44 AM [facility] ([facility]Hemoglobin9.8(L)13.0 - 17.0 g/dL05/12/2025 4:44 AM [facility] ([facility]Lnzjbelycg74.0(L)39.0 - 50.0 %05/12/2025 4:44 AM [facility] ([facility]IFZ537.0(H)82.0 - 98.0 fL05/12/2025 4:44 AM [facility] ([facility]MCH32.627.0 - 33.0 pg 05/12/2025 4:44 AM [facility] ([facility]MCHC31.6(L)32.0 - 35.0 g/dL 05/12/2025 4:44 AM [facility] ([facility]RDW17.3(H)11.5 - 15.0 % 05/12/2025 4:44 AM [facility] ([facility]Wesitvsit942(L)150 - 400 10*3/uL05/12/2025 4:44 AM [facility] ([facility]Specimen (Source) Anatomical Location / LateralityCollection Method / VolumeCollection Time Received TimeBloodVenous blood specimen / UnknownVenipuncture / Unknown 05/12/2025 4:05 AM EDT1 4:34 AM EDT Narrative Authorizing ProviderResult TypeResult StatusAbebe FAJARDO BLOOD ORDERABLES Final ResultPerforming OrganizationAddressCity/State/ZIP CodePhone Number [facility] ([facility] [address] [place] [address] * (ABNORMAL) Basic metabolic panel (05/12/2025 4:05 AM EDT)ComponentValueRef RangeTest MethodAnalysis TimePerformed AtPathologist IrsleypwnDhjicm502634 - 145 mmol/L1 5:01 AM [facility] ([facility]Potassium3.73.5 - 5.1 mmol/L1 5:01 AM [facility] ([facility]Qtjcakge40195 - 107 mmol/L1 5:01 AM [facility] ([facility]HN52434 - 31 mmol/L 05/12/2025 5:01 AM [facility] ([facility]BUN26(H)7 - 25 mg/dL05/12/2025 5:01 AM [facility] ([facility]Creatinine1.48(H)0.70 - 1.30 mg/dL 05/12/2025 5:01 AM [facility] ([facility]Krxnetb7477 - 100 mg/dL 05/12/2025 5:01 AM [facility] ([facility]Calcium7.3(L)8.6 - 10.3 mg/dL 05/12/2025 5:01 AM [facility] ([facility]Anion Kre778 - 20 mmol/L 05/12/2025 5:01 AM [facility] ([facility]eGFR50.6(L)>60.0 mL/min/1.73m* 5:01 AM [facility] ([facility]Comment:The [facility]???s estimated glomerular filtration rate (eGFR) will no longer include consideration of race in its calculation. The [employer]???s eGFR Task Force developed new recommendations for [...] not disproportionately affect any one group of individuals.BUN/Creatinine Ratio17. 5:01 AM [facility] ([facility]Specimen (Source)Anatomical Location / LateralityCollection Method / VolumeCollection TimeReceived TimeBloodVenous blood specimen / Unknown Venipuncture / Yjoyesx7205/12/2025 4:05 AM EDT1 4:35 AM EDT Narrative Authorizing ProviderResult TypeResult StatusJohn Dominick FAJARDO BLOOD ORDERABLES Final ResultPerforming OrganizationAddressCity/State/ZIP CodePhone Number [facility] ([facility] [address] [place] [address] * (ABNORMAL) CBC (05/11/2025 4:07 PM EDT)ComponentValueRef RangeTest Method Analysis TimePerformed AtPathologist SignatureAuto WBC9.874.00 - 10.60 10*3/uL 05/11/2025 4:27 PM [facility] ([facility]RBC3.04(L)4.20 - 5.70 10*6/uL 05/11/2025 4:27 PM [facility] ([facility]Tmnmjmkwkh42.2(L)13.0 - 17.0 g/dL05/11/2025 4:27 PM [facility] ([facility]Hbolaihffc63.7(L)39.0 - 50.0 %05/11/2025 4:27 PM [facility] ([facility]TSN368.0(H)82.0 - 98.0 fL05/11/2025 4:27 PM [facility] ([facility]MCH33.6(H)27.0 - 33.0 pg 05/11/2025 4:27 PM [facility] ([facility]MCHC33.232.0 - 35.0 g/dL 05/11/2025 4:27 PM [facility] ([facility]RDW18.0(H)11.5 - 15.0 % 05/11/2025 4:27 PM [facility] ([facility]Wzynikosg317(L)150 - 400 10*3/uL05/11/2025 4:27 PM [facility] ([facility]Immature Platelet Fraction %7.3(H)0.8 - 6.3 %05/11/2025 4:27 PM [facility] ([facility] Specimen (Source)Anatomical Location / LateralityCollection Method / Volume Collection TimeReceived TimeBloodVenous blood specimen / UnknownVenipuncture / Onbngds0505/11/2025 4:07 PM EDT1 4:10 PM EDT Narrative Authorizing ProviderResult TypeResult StatusJojb FAJARDO BLOOD ORDERABLES Final ResultPerforming OrganizationAddressCity/State/ZIP CodePhone Number [facility] ([place]) [address] [place] [address] * Histology - tissue exam (05/11/2025 3:30 PM EDT)ComponentValueRef RangeTest MethodAnalysis TimePerformed AtPathologist SignatureCase ReportSurgical Pathology ?Case: [id number] ? Authorizing Provider: ??Abebe Tan MD ?Collected: ? 05/11/2025 1530 ? Ordering Location: ? [facility] Main Operating Room ?? Received: ?05/14/2025 0723 ? Pathologist: ? Nicole Womack MD ? Specimen: ?Prostate, PROSTATE CHIPS ? 05/18/2025 10:45 AM [facility] ([facility]Final DiagnosisA. Prostate, transurethral resection: - Glandular and stromal hyperplasia. - Benign urothelium with von Brunn's nests. - Acute and chronic inflammation. 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 Prostate. Received in formalin labeled Alberto Waller, prostate chips , are 7 g of diaz rubbery soft tissue chips, 5 x 4 x 1 cm in aggregate. The specimen is entirely submitted in 8 cassettes. Belen Parsons, Pathologists' Real Estate Development Manager 05/18/2025 10:45 AM [facility])Microscopic Description Microscopic examination performed.05/18/2025 10:45 AM [facility])Specimen (Source)Anatomical Location / LateralityCollection Method / VolumeCollection TimeReceived TimeTissueProstate / Mcjtmxk4805/11/2025 3:30 PM EDT1 7:23 AM EDTComment:Pre-op diagnosis: BPH with obstruction/lower urinary tract symptoms [N40.1, N13.8] Narrative Authorizing ProviderResult TypeResult StatusAbebe FAJARDO PATHOLOGY ORDERABLESFinal ResultPerforming OrganizationAddressCity/State/ZIP CodePhone Number [facility] ([facility] [address] [place] [address] * POCT glucose meter (05/11/2025 1:42 PM EDT)ComponentValueRef RangeTest Method Analysis TimePerformed AtPathologist SignatureGlucose ZQZ13795 - 105 mg/dL 05/11/2025 2:03 PM EDT[facility] ([place])Comment:aeppinkSpecimen (Source)Anatomical Location / LateralityCollection Method / VolumeCollection TimeReceived TimeBloodCapillary blood specimen / Tlaepix4505/11/2025 1:42 PM EDT 05/11/2025 2:03 PM EDT Narrative [facility] ([place]) - 05/11/2025 2:03 PM EDT Waived Testing in the ED is performed under the ED CLIA certificate #[id number]. 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 prostatic hyperplasia with urinary retention BPH with urinary obstruction Hypertrophy of prostate with urinary obstruction and other lower urinary tract symptoms (LUTS) documented in this encounter Admitting Diagnoses Diagnosis BPH with obstruction/lower urinary tract symptoms BPH with urinary obstruction Hypertrophy of prostate with urinary obstruction and other lower urinary tract symptoms (LUTS) documented in this encounter Administered Medications Medication OrderMAR ActionAction DateDoseRateSite acetaminophen (Tylenol) tablet 650 mg 650 mg, oral, Every 6 hours, First dose on Wed05/11/25 at 1800, For 99 days, Recovery & On Unit Given05/12/2025 6:18 AM JEU348 paQgxev9105/12/2025 12:59 AM LUX805 mgGiven 05/11/2025 6:04 PM QAH975 mg aspirin EC tablet 81 mg 81 mg, oral, Daily, First dose on Wed05/12/25 at 1230, For 99 days, Do not crush, chew, or split. Given05/12/2025 2:49 PM EDT81 mg bumetanide (Bumex) tablet 1 mg 1 mg, oral, Daily, First dose on Wed05/12/25 at 1000, For 99 days, Recovery & On Unit Given05/12/2025 11:27 AM EDT1 mg carvedilol (Coreg) tablet 25 mg 25 mg, oral, 2 times daily with meals, First dose on Wed05/11/25 at 1700, For 99 days, Recovery & On Unit Given05/12/2025 8:50 AM EDT25 naQrkuo5505/11/2025 6:04 PM EDT25 mg docusate sodium (Colace) capsule 100 mg 100 mg, oral, 2 times daily, First dose on Wed05/11/25 at 2200, For 99 days, Recovery & On Unit Given05/12/2025 11:28 AM ETL571 dlQyycb8605/11/2025 10:08 PM LXN218 mg famotidine (Pepcid) tablet 20 mg 20 mg, oral, Nightly, First dose on Wed05/11/25 at 2200, For 99 days, Recovery & On Unit, Indication: Stress Ulcer Prophylaxis Given05/11/2025 10:08 PM EDT20 mg finasteride (Proscar) tablet 5 mg 5 mg, oral, Daily, First dose on Wed05/12/25 at 1000, For 98 days, Recovery & On Unit, Do not crush, chew, or split. Given05/12/2025 11:28 AM EDT5 mg hydrALAZINE (Apresoline) tablet 100 mg 100 mg, oral, 3 times daily, First dose on Wed05/11/25 at 1700, For 99 days, Recovery & On Unit Given05/12/2025 11:27 AM ZAM348 ooIlmsj0105/11/2025 6:04 PM JJX655 mg lactated Ringer's infusion 30 mL/hr, intravenous, Continuous, Starting on Wed05/12/25 at 0000, For 1 day, Preprocedure, Indication: Pre-op Given05/11/2025 3:44 PM PGT212 tXBcfer2505/11/2025 3:29 PM JRV188 mLContinued by Ykrowrhcpv83/10/2025 2:21 PM EDT30 mL/hr30 mL/hr mycophenolate (Myfortic) EC tablet 540 mg 540 mg, oral, 2 times daily, First dose on Wed05/11/25 at 2200, For 99 days, Recovery & On Unit, Do not crush or split. Give on an empty stomach. Given05/12/2025 11:27 AM QCN569 rxSoezd9805/11/2025 10:08 PM VPJ581 mg naloxone (Narcan) injection 0.4 mg 0.4 mg, intravenous, As needed, opioid reversal, Starting on Wed05/11/25 at 1547, For 99 days, Recovery & On Unit, Administer IV Push over 30 seconds as needed for opioid reversal (may give IM or SubQ if no IV access), if O2 saturation is less than 90%, respiratory rate is less than or equal to 8/min, and/or patient has signs/symptoms of opioid-induced respiratory depression. Hold all narcotics and notify MD immediately and give naloxone 0.4 mg every 2 minutes until respiratory rate greater than 12. naloxone (Narcan) injection 0.4 mg 0.4 mg, intramuscular, As needed, opioid reversal, Starting on Wed05/11/25 at 1547, For 99 days, Recovery & On Unit, Administer IM needed for opioid reversal (may give IV or SubQ if no IM access), if O2 saturation is less than 90%, respiratory rate is less than or equal to 8/min, and/or patient has signs/symptoms of opioid-induced respiratory depression. Hold all narcotics and notify MD immediately and give naloxone 0.4 mg every 2 minutes until respiratory rate is greater than 12. naloxone (Narcan) injection 0.4 mg 0.4 mg, subcutaneous, As needed, opioid reversal, Starting on Wed05/11/25 at 1547, For 99 days, Recovery & On Unit, Administer SubQ as needed for opioid reversal (may give IV or IM if no SubQ access), if O2 saturation is less than 90%, respiratory rate is less than or equal to 8/min, and/or patient has signs/symptoms of opioid-induced respiratory depression. Hold all narcotics and notify MD immediately and give naloxone 0.4 mg every 2 minutes until respiratory rate greater than 12. NIFEdipine XL (Procardia XL) 24 hr tablet 30 mg 30 mg, oral, Daily, First dose on Wed05/12/25 at 1000, For 98 days, Recovery & On Unit, Do notcrush, chew, or split. Given05/12/2025 11:28 AM EDT30 mg nystatin (Mycostatin) 100,000 unit/mL suspension 500,000 Units 500,000 Units, oral, 4 times daily, First dose on Wed05/11/25 at 1800, For 99 days, Recovery &On Unit Given05/12/2025 6:59 PM IAN228,000 MqpgwDbshr37/11/2025 2:49 PM FGQ196,000 Units Given05/12/2025 11:27 AM TPT364,000 Units ondansetron HCl (PF) (Zofran) injection 4 mg 4 mg, intravenous, Every 6 hours PRN, nausea, vomiting, Starting on Wed05/11/25 at 1547, For 99 days, Recovery & On Unit, Give IV if patient is unable to take orally. Administer as an IV push over 2 to 5 minutes. ondansetron ODT (Zofran-ODT) disintegrating tablet 4 mg 4 mg, oral, Every 8 hours PRN, nausea, vomiting, Starting on Wed05/11/25 at 1547, For 99 days, Recovery & On Unit pantoprazole (ProtoNix) EC tablet 40 mg 40 mg, oral, Daily before breakfast, First dose on Wed05/12/25 at 0730, For 98 days, Recovery & On Unit, Do not crush, chew, or split., Indication: Stress Ulcer Prophylaxis Given05/12/2025 6:18 AM EDT40 mg predniSONE (Deltasone) tablet 20 mg 20 mg, oral, Daily, First dose on Wed05/12/25 at 1000, For 98 days, Recovery & On Unit Given05/12/2025 11:28 AM EDT20 mg sennosides-docusate sodium (Guru-Colace) 8.6-50 mg per tablet 2 tablet 2 tablet, oral, Nightly, First dose on Wed05/11/25 at 2200, For 99 days, Recovery & On Unit Given05/11/2025 10:08 PM EDT2 tablets tacrolimus ER (Envarsus XR) tablet ER 4 mg 4 mg, oral, Daily at 6am, First dose on Wed05/12/25 at 0600, For 98 days, Recovery & On Unit, Do not crush, chew, or split. [facility] policy requires tacrolimus extended-release (Astragraf XL, Envarsus XR) to be administered at 6 AM. Do not change the start times without notifying the provider. Given05/12/2025 6:18 AM EDT4 mg tamsulosin (Flomax) 24 hr capsule 0.4 mg 0.4 mg, oral, Daily, First dose on Wed05/12/25 at 1000, For 99 days, Do not crush, chew, or split. Given05/12/2025 11:28 AM EDT0.4 mg valGANciclovir (Valcyte) tablet 450 mg 450 mg, oral, Daily, First dose on Wed05/12/25 at 1000, For 99 days, Recovery & On Unit, Do not crush, chew, or split., Coverage: CMV, BK, Infection Site: Site Not Specified Given05/12/2025 11:28 AM KEV293 mgdocumented in this encounter Active and Recently Administered Medications Times are shown in EDT.Medication Order/ acetaminophen (Tylenol) tablet 650 mg 650 mg, oral, Every 6 hours, First dose on Wed05/11/25 at 1800, For 99 days, Recovery & On Unit * 1804 (Given - Provider: Sammie Akhtar RN) * 0059 (Given - Provider: Daniel Smith, JUANA) * 0618 (Given - Provider: Daniel Smith RN) * 1142 (Not Given - Provider: Katrin Armando RN - Reason: Patient/family refused) * 1800 (Not Given - Provider: Katrin Armando RN - Reason: Patient/family refused) aspirin EC tablet 81 mg 81 mg, oral, Daily, First dose on Wed05/12/25 at 1230, For 99 days, Do not crush, chew, or split. * 1449 (Given - Provider: Katrin Armando, JUANA) bumetanide (Bumex) tablet 1 mg 1 mg, oral, Daily, First dose on Wed05/12/25 at 1000, For 99 days, Recovery & On Unit * 1127 (Given - Provider: Katrin Armando, JUANA) carvedilol (Coreg) tablet 25 mg 25 mg, oral, 2 times daily with meals, First dose on Wed05/11/25 at 1700, For 99 days, Recovery & On Unit * 1804 (Given - Provider: Sammie Akhtar, JUANA) * 0850 (Given - Provider: Katrin Armando RN) * 1700 (Not Given - Provider: Katrin Armando RN - Reason: Order parameters not met) docusate sodium (Colace) capsule 100 mg 100 mg, oral, 2 times daily, First dose on Wed05/11/25 at 2200, For 99 days, Recovery & On Unit * 2208 (Given - Provider: Daniel Smith, JUANA) * 1128 (Given - Provider: Katrin Armando, JUANA) famotidine (Pepcid) tablet 20 mg 20 mg, oral, Nightly, First dose on Wed05/11/25 at 2200, For 99 days, Recovery & On Unit, Indication: Stress Ulcer Prophylaxis * 2207 (Given - Provider: Daniel Smith, JUANA) finasteride (Proscar) tablet 5 mg 5 mg, oral, Daily, First dose on Wed05/12/25 at 1000, For 98 days, Recovery & On Unit, Do not crush, chew, or split. * 1128 (Given - Provider: Katrin Armando RN) hydrALAZINE (Apresoline) tablet 100 mg 100 mg, oral, 3 times daily, First dose on Wed05/11/25 at 1700, For 99 days, Recovery & On Unit * 1804 (Given - Provider: Sammie Akhtar RN) * 2200 (Not Given - Provider: Daniel Smith RN - Reason: Other - Comment: held per Dr. Gasca with Urology) * 1127 (Given - Provider: Katrin Armando RN) * 1600 (Not Given - Provider: Katrin Armando RN - Reason: Order parameters not met) mycophenolate (Myfortic) EC tablet 540 mg 540 mg, oral, 2 times daily, First dose on Wed05/11/25 at 2200, For 99 days, Recovery & On Unit, Do not crush or split. Give on an empty stomach. * 2208 (Given - Provider: Daniel Smith, JUANA) * 1127 (Given - Provider: Katrin Armando, JUANA) NIFEdipine XL (Procardia XL) 24 hr tablet 30 mg 30 mg, oral, Daily, First dose on Wed05/12/25 at 1000, For 98 days, Recovery & On Unit, Do notcrush, chew, or split. * 1128 (Given - Provider: Katrin Armando RN) nystatin (Mycostatin) 100,000 unit/mL suspension 500,000 Units 500,000 Units, oral, 4 times daily, First dose on Wed05/11/25 at 1800, For 99 days, Recovery &On Unit * 1804 (Given - Provider: Sammie Akhtar RN) * 2208 (Given - Provider: Daniel Smith RN) * 1127 (Given - Provider: Katrin Armando RN) * 1449 (Given - Provider: Katrin Armando RN) * 1859 (Given - Provider: Katrin Armando RN) pantoprazole (ProtoNix) EC tablet 40 mg 40 mg, oral, Daily before breakfast, First dose on Wed05/12/25 at 0730, For 98 days, Recovery & On Unit, Do not crush, chew, or split., Indication: Stress Ulcer Prophylaxis * 0618 (Given - Provider: Daniel Smith RN) piperacillin-tazobactam (Zosyn) 4.5 g in sodium chloride 0.9 % 100 mL IVPB (COMPLETED) 4.5 g, intravenous, at 200 mL/hr, Administer over 0.5 Hours, Once, On Wed05/11/25 at 1330, For 1 dose, Intraprocedure, Suspected Indication (Select all that apply): Surgical Prophylaxis, Transplant Donor Infection * 1454 (New Bag - Provider: MILENA Nava) * 1549 (Anesthesia Volume Adjustment - Provider: MILENA Cohn) predniSONE (Deltasone) tablet 20 mg 20 mg, oral, Daily, First dose on Wed05/12/25 at 1000, For 98 days, Recovery & On Unit * 1128 (Given - Provider: Katrin Armando RN) sennosides-docusate sodium (Guru-Colace) 8.6-50 mg per tablet 2 tablet 2 tablet, oral, Nightly, First dose on Wed05/11/25 at 2200, For 99 days, Recovery & On Unit * 2208 (Given - Provider: Daniel Smith RN) sulfamethoxazole-trimethoprim (Bactrim DS) 800-160 mg per tablet 1 tablet 1 tablet, oral, 3 times weekly (Once per day on Wednesday), First dose on Wed05/14/25 at 1000, For 99 days, Recovery & On Unit, Suspected Indication (Select all that apply): Transplant Donor Infection tacrolimus ER (Envarsus XR) tablet ER 4 mg 4 mg, oral, Daily at 6am, First dose on Wed05/12/25 at 0600, For 98 days, Recovery & On Unit, Do not crush, chew, or split. [facility] policy requires tacrolimus extended-release (Astragraf XL, Envarsus XR) to be administered at 6 AM. Do not change the start times without notifying the provider. * 0618 (Given - Provider: Daniel Smith RN) tamsulosin (Flomax) 24 hr capsule 0.4 mg 0.4 mg, oral, Daily, First dose on Wed05/12/25 at 1000, For 99 days, Do not crush, chew, or split. * 1128 (Given - Provider: Katrin Armando RN) valGANciclovir (Valcyte) tablet 450 mg 450 mg, oral, Daily, First dose on Wed05/12/25 at 1000, For 99 days, Recovery & On Unit, Do not crush, chew, or split., Coverage: CMV, BK, Infection Site: Site Not Specified * 1128 (Given - Provider: Katrin Armando RN) vancomycin IVPB 1 g (COMPLETED) 1 g, intravenous, at 200 mL/hr, Administer over 60 Minutes, Once, On Wed05/11/25 at 1445, For 1 dose, Preprocedure, premix bag, Suspected Indication (Select all that apply): Surgical Prophylaxis * 1457 (Given - Provider: MILENA Nava) * 1549 (Anesthesia Volume Adjustment - Provider: MILENA Cohn) Medication Order/ lactated Ringer's infusion 30 mL/hr, intravenous, Continuous, Starting on 05/12/25 at 0000, For 1 day, Preprocedure, Indication: Pre-op * 1346 (New Bag - Provider: Gabby Ortiz RN) * 1421 (Continued by Anesthesia - Provider: MILENA Nava) * 1529 (Given - Provider: Glenroy Najera [facility]) * 1544 (Given - Provider: Glenroy Najera [facility]) * 1549 (Anesthesia Volume Adjustment - Provider: Glenroy Najera [facility]) * 0000 (Due) * 1345 (Stopped - Provider: Katrin Armando RN - Comment: [Order ends at this time. Document the following action when infusion is complete: Stopped]) Medication Order/ artificial tear ophthalmic drops 1 drop 1 drop, Both Eyes, As needed, dry eyes, Starting on Wed05/11/25 at 1547, For 99 days, Recovery & On Unit calcium carbonate (Tums) chewable tablet 500 mg 500 mg, oral, 2 times daily PRN, indigestion, heartburn, Starting on Wed05/11/25 at 1547, For 99 days, Recovery & On Unit dyclonine throat lozenge 2 mg 2 mg (1 lozenge), Mouth/Throat, Every 2 hour PRN, sore throat, pt preference for spray vs lozenges,Starting on Wed05/11/25 at 1547, For 99 days, Recovery & On Unit hyoscyamine (Levsin SL) dissolvable tablet 125 mcg 125 mcg, oral, Every 4 hours PRN, cramping, Starting on Wed05/11/25 at 1547, For 99 days, Recovery& On Unit melatonin tablet 6 mg 6 mg, oral, Nightly PRN, sleep, Starting on Wed05/11/25 at 1547, For 99 days, Recovery & On Unit naloxone (Narcan) injection 0.4 mg(Linked Group 1) 0.4 mg, intravenous, As needed, opioid reversal, Starting on Wed05/11/25 at 1547, For 99 days, Recovery & On Unit, Administer IV Push over 30 seconds as needed for opioid reversal (may give IM or SubQ if no IV access), if O2 saturation is less than 90%, respiratory rate is less than or equal to 8/min, and/or patient has signs/symptoms of opioid-induced respiratory depression. Hold all narcotics and notify MD immediately and give naloxone 0.4 mg every 2 minutes until respiratory rate greater than 12. naloxone (Narcan) injection 0.4 mg(Linked Group 1) 0.4 mg, intramuscular, As needed, opioid reversal, Starting on Wed05/11/25 at 1547, For 99 days, Recovery & On Unit, Administer IM needed for opioid reversal (may give IV or SubQ if no IM access), if O2 saturation is less than 90%, respiratory rate is less than or equal to 8/min, and/or patient has signs/symptoms of opioid-induced respiratory depression. Hold all narcotics and notify MD immediately and give naloxone 0.4 mg every 2 minutes until respiratory rate is greater than 12. naloxone (Narcan) injection 0.4 mg(Linked Group 1) 0.4 mg, subcutaneous, As needed, opioid reversal, Starting on Wed05/11/25 at 1547, For 99 days, Recovery & On Unit, Administer SubQ as needed for opioid reversal (may give IV or IM if no SubQ access), if O2 saturation is less than 90%, respiratory rate is less than or equal to 8/min, and/or patient has signs/symptoms of opioid-induced respiratory depression. Hold all narcotics and notify MD immediately and give naloxone 0.4 mg every 2 minutes until respiratory rate greater than 12. ondansetron HCl (PF) (Zofran) injection 4 mg(Linked Group 2) 4 mg, intravenous, Every 6 hours PRN, nausea, vomiting, Starting on Wed05/11/25 at 1547, For 99 days, Recovery & On Unit, Give IV if patient is unable to take orally. Administer as an IV push over 2 to 5 minutes. ondansetron ODT (Zofran-ODT) disintegrating tablet 4 mg(Linked Group 2) 4 mg, oral, Every 8 hours PRN, nausea, vomiting, Starting on Wed05/11/25 at 1547, For 99 days, Recovery & On Unit phenoL (Chloraseptic) 1.4 % mouth/throat spray 1 spray 1 spray, Mouth/Throat, Every 2 hour PRN, sore throat, Starting on Wed05/11/25 at 1547, For 99 days, Recovery & On Unit, Instruct patient to spit out after 15 seconds. polyethylene glycol (Glycolax) packet 17 g 17 g, oral, Daily PRN, constipation, Starting on Wed05/11/25 at 1547, For 99 days, Recovery & On Unit traMADol (Ultram) tablet 100 mg 100 mg, oral, Every 6 hours PRN, severe pain (8-10 pain score), Starting on Wed05/11/25 at 1547, For 99 days, Recovery & On Unit, Warning - increased risk of serotonin syndrome in patients who are also on SSRI, SNRI, or other medications that may increase risk of serotonin syndrome. traMADol (Ultram) tablet 50 mg 50 mg, oral, Every 6 hours PRN, moderate pain (4-7 pain score), Starting on Wed05/11/25 at 1547, For 99 days, Recovery & On Unit, Warning - increased risk of serotonin syndrome in patients who are also on SSRI, SNRI, or other medications that may increase risk of serotonin syndrome. Order Group 1: naloxone (Narcan) injection 0.4 mgJump to med 0.4 mg, intravenous, As needed, opioid reversal, Starting on Wed05/11/25 at 1547, For 99 days, Recovery & On Unit, Administer IV Push over 30 seconds as needed for opioid reversal (may give IM or SubQ if no IV access), if O2 saturation is less than 90%, respiratory rate is less than or equal to 8/min, and/or patient has signs/symptoms of opioid-induced respiratory depression. Hold all narcotics and notify MD immediately and give naloxone 0.4 mg every 2 minutes until respiratory rate greater than 12. Or naloxone (Narcan) injection 0.4 mgJump to med 0.4 mg, intramuscular, As needed, opioid reversal, Starting on Wed05/11/25 at 1547, For 99 days, Recovery & On Unit, Administer IM needed for opioid reversal (may give IV or SubQ if no IM access), if O2 saturation is less than 90%, respiratory rate is less than or equal to 8/min, and/or patient has signs/symptoms of opioid-induced respiratory depression. Hold all narcotics and notify MD immediately and give naloxone 0.4 mg every 2 minutes until respiratory rate is greater than 12. Or naloxone (Narcan) injection 0.4 mgJump to med 0.4 mg, subcutaneous, As needed, opioid reversal, Starting on Wed05/11/25 at 1547, For 99 days, Recovery & On Unit, Administer SubQ as needed for opioid reversal (may give IV or IM if no SubQ access), if O2 saturation is less than 90%, respiratory rate is less than or equal to 8/min, and/or patient has signs/symptoms of opioid-induced respiratory depression. Hold all narcotics and notify MD immediately and give naloxone 0.4 mg every 2 minutes until respiratory rate greater than 12. Group 2: ondansetron ODT (Zofran-ODT) disintegrating tablet 4 mgJump to med 4 mg, oral, Every 8 hours PRN, nausea, vomiting, Starting on Wed05/11/25 at 1547, For 99 days, Recovery & On Unit Or ondansetron HCl (PF) (Zofran) injection 4 mgJump to med 4 mg, intravenous, Every 6 hours PRN, nausea, vomiting, Starting on Wed05/11/25 at 1547, For 99 days, Recovery & On Unit, Give IV if patient is unable to take orally. Administer as an IV push over 2 to 5 minutes. documented in this encounter Care Teams Team MemberRelationshipSpecialtyStart DateEnd Date Abebe Stewart MD [address] [place] [address], [address] [place] [address] PCP - GeneralInternal Medicine09/21/24 Abebe Tan MD [address] [place] [phone] Consulting PhysicianUrology04/07/25documented as of this encounter
--- OUTSIDE RECORDS SUMMARY | 2025-05-14 08:30 | XMS_ITS | Encounter Summary ---
Author Organization [facility] Address [address] [place] [address] Care Team Providers Care Secondary Spanish Teacher Name Role Phone Abebe Stewart MD Primary Care Provider [phone] Abebe Tan MD Unavailable Reason for Visit * ReasonCommentspost opCath removal Encounter Details DateTypeDepartmentCare Team (Latest Contact Info)Kfcccplehzk66/13/2025 8:30 AM EDTFollow-Up [facility] Urology [address] [place] [address] Abebe Tan MD [address] [place] [address] S/P TURP (Primary Dx) Social History Tobacco UseTypesPacks/DayYears UsedDateSmoking Tobacco: DzmaodJeihkwsjwx1003 - 1974Passive Smoke Exposure: PastSmokeless Tobacco: Never Tobacco Cessation:Counseling Given: Not Answered Alcohol UseStandard Drinks/WeekCommentsYes0 (1 standard drink = 0.6 oz pure alcohol)[facility] UtilitiesAnswerDate RecordedIn the past 12 months has the electric, gas, oil, or water POW threatened to shut off services in your home?No05/11/2025Humiliation, Afraid, Rape, and Kick questionnaireAnswerDate RecordedWithin the last year, have you been afraid of your partner or ex-partner?No05/11/2025Within the last year, have you been humiliated or emotionally abused in other ways by your partner or ex-partner?No05/11/2025 Within the last year, have you been kicked, hit, slapped, or otherwise physically hurt by your partner or ex-partner?No05/11/2025Within the last year, have you been raped or forced to have any kind of sexual activity by your part ner or ex-partner?No05/11/2025Social Connection and Isolation Panel [NHANES] AnswerDate RecordedIn a typical week, how many times do you talk on the phone with family, friends, or neighbors?More than three times a week04/05/2025How often do you get together with friends or relatives?More than three times a week 04/05/2025How often do you attend anglican or restorationism services?Never04/05/2025Do you belong to any clubs or organizations such as anglican groups, unions, fraternal or athletic groups, or school groups?No04/05/2025How often do you attend meetings of the clubs or organizations you belong to?Never04/05/2025re you , , , , never , or living with a partner?Gvvovzfrs36/04/2025UDIT-CAnswerDate RecordedQ1: How often do you have a drink containing alcohol?Never04/05/2025Q2: How many drinks containing alcohol do you have on a typical day when you are drinking?Patient does not drink 04/05/2025Q3: How often do you have six or more drinks on one occasion?Never 04/05/2025Overall Financial Resource Strain (CARDIA)AnswerDate RecordedHow hard is it for you to pay for the very basics like food, housing, medical care, and heating?Not very hard05/11/2025PHQ-2AnswerDate RecordedPatient Health Questionnaire-2 Futke141[facility] [place] [facility] - Occupational Stress QuestionnaireAnswerDate RecordedDo you feel stress - tense, restless, nervous, or anxious, or unable to sleep at night because yourmind is troubled all the time - these days?Only a kjqnwe4704/05/2025TransportationAnswer Date RecordedIn the past 12 months, has lack of transportation kept you from medical appointments or from getting medications?No05/11/2025In the past 12 months, has lack of transportation kept you from meetings, work, or from getting things needed for daily living?No05/11/2025Housing Stability Vital SignAnswer Date RecordedIn the last 12 months, was there a time when you were not able to pay the mortgage or rent on time?No05/11/2025In the past 12 months, how many times have you moved where you were living?t any time in the past 12 months, were you homeless or living in a penitentiary (including now)?No05/11/2025 Hunger Vital SignAnswerDate RecordedWithin the past 12 months, you worried that your food would run out before you got the money to buymore.Never true05/11/2025 Within the past 12 months, the food you bought just didn't last and you didn't have money to get more.Never true05/11/2025Sex and Gender InformationValueDate RecordedSex Assigned at CelklZdcg50/20/2025 6:43 AM ESTLegal SnzMkmm3101/29/2022 12:45 AM EDTGender WpztwljkZqsu04/20/2025 7:43 AM ESTSexual Orientation Heterosexual or Nvlbkgeu00/20/2025 7:43 AM ESTdocumented as of this encounter Last Filed Vital Signs Vital SignReadingTime TakenCommentsBlood Hofmmrzd465/ 8:50 AM EDT Ztsqy444605/14/2025 8:50 AM SEDMxslhatasml91.4 ??C (97.6 ??F)05/14/2025 8:50 AM EDTRespiratory Rate--Oxygen Saturation--Inhaled Oxygen Concentration--Dspioj04.8 kg (187 lb)05/14/2025 8:50 AM WZTQvwclt121.4 cm (6' 1 )05/14/2025 8:50 AM EDT Body Mass Index24.6705/14/2025 8:50 AM EDTdocumented in this encounter Functional Status * BPAnswerDate of FysweoggjkExhfzq176/ 8:50 AM Jina Saleem MA * PulseAnswerDate of NcuvxomsiyVritao8727/13/2025 8:50 AM Jina Saleem MA * Patient PositionAnswerDate of UejavywcjvFilgpiRsecbii51 8:50 AM EDT Jina Sanders MA * BPAnswerDate of CqcnqutvccZqphtu138/7910 8:50 AM EDTJina Sanedrs MA * TempAnswerDate of FhjttotjosDaghln51.610 8:50 AM EDJina Barragan MA * Temp srcAnswerDate of CrokkhvpbfRzkopfBivl07 8:50 AM EDJina Barragan MA * PulseAnswerDate of FwhxoergdrHnljma4940 8:50 AM Jina Saleem MA * BP LocationAnswerDate of AssessmentAuthorLeft arm05/14/2025 8:50 AM Jina Saleem MA * Patient PositionAnswerDate of FubngkuvwbPvxqadPfytwye35/13/2025 8:50 AM EDT Jina Sanders MA documented as of this encounter Progress Notes * Abebe Tan MD - 05/14/2025 8:30 AM EDT Patient filled with 200 mL saline and waited approximately 20 minutes. The patient cannot void. I discussed with him coming back later in the afternoon and giving it more time but he lives a distanceaway. Will replace the catheter today. Will have him come back Wednesday for another trial of void. Abebe Tan MD documented in this encounter Plan of Treatment DateTypeDepartmentCare Team (Latest Contact Info)Mwlatsrwefe22/28/2025 8:00 AM EDTFollow-Up [facility] Transplant [address] [place] [address] Abebe Tan MD [address] [place] [address] 05/29/2025 2:00 PM EDTAppointment [facility] US IMAGING [address] [place] [phone] 06/11/2025 9:00 AM ESTFollow-Up [facility] Transplant [address] [place] [phone] Jayjay Robin MD [address] [place] [phone] 06/19/2025 10:30 AM ESTFollow-[facility] [address] [place] [phone] Izaiah Singh, TEST DATA DEVELOPER [address] [facility] [place], [place] [id number] 06/25/2025 11:00 AM ESTFollow-[facility] Neurology [address] [place] [address] [place] [address] Sera Silverio, TEST DATA DEVELOPER [address] [place] [address] documented as of this encounter Visit Diagnoses Diagnosis S/P TURP- Primary documented in this encounter Care Teams Team MemberRelationshipSpecialtyStart DateEnd Date Abebe Stewart MD [address] [place] [address], [address] [place] [address] PCP - GeneralInternal Medicine09/21/24 Abebe Tan MD [place] [place] [address] Consulting PhysicianUrology04/07/25documented as of this encounter
--- OUTSIDE RECORDS SUMMARY | 2025-05-16 07:20 | XMS_ITS | Encounter Summary ---
Author Organization [facility] Address [address] [place] [address] Care Team Providers Care Movie Extra Name Role Phone Abebe Stewart MD Primary Care Provider [phone] Abebe Tan MD Unavailable Encounter Details DateTypeDepartmentCare Team (Latest Contact Info)Sotahitanws86/15/2025 7:20 AM EDTLab [facility] Kidney Transplant Draw Station [address] [place] [phone] Encounter for aftercare following kidney transplant; Transplanted kidney; Encounter for long-term (current) use of medications; Encounter for screening for diseases of the blood and blood-forming organs and certain disorders involving the immune mechanism; Screening for human immunodeficiency virus Social History Tobacco UseTypesPacks/DayYears UsedDateSmoking Tobacco: XrpxgsOxhanfkycb6653 - 1974Passive Smoke Exposure: PastSmokeless Tobacco: NeverAlcohol UseStandard Drinks/WeekCommentsYes0 (1 standard drink = 0.6 oz pure alcohol)[facility] UtilitiesAnswerDate RecordedIn the past 12 months has the [employer], oil, or water Is That Odd threatened to shut off services in your [...] times a week04/05/2025How often do you attend anglican or mu-ism services?Never04/05/2025Do you belong to any clubs or organizations such as anglican groups, unions, fraternal or athletic groups, or school groups?No04/05/2025How often do you attend meetings of the clubs or organizations you belong to?Never04/05/2025re you , , , , never , or living with a partner?Dmmvqjywx35/04/2025UDIT-C AnswerDate RecordedQ1: How often do you have [...] heating?Not very hard05/11/2025 PHQ-2AnswerDate RecordedPatient Health Questionnaire-2 Baqic210Final[facility] [place] of Occupational Health - Occupational Stress QuestionnaireAnswerDate RecordedDo you feel stress - tense, restless, nervous, or anxious, or unable to sleep at night because yourmind is troubled all the time - these days?Only a dpbheq7904/05/2025TransportationAnswerDate RecordedIn the past 12 months, has lack [...] homeless or living in a mcc (including now)?No05/11/2025Hunger Vital SignAnswerDate Recorded Within the past 12 months, you worried that your food would run out before you got the money to buymore.Never true05/11/2025Within the past 12 months, the food you bought just didn't last and you didn't have money to get more.Never true 05/11/2025Sex and Gender InformationValueDate RecordedSex Assigned at Birth[facility] 09/21/2024 6:43 AM ESTLegal FhsYigc6301/29/2022 12:45 AM EDTGender IdentityMale 09/21/2024 7:43 AM ESTSexual OrientationHeterosexual or Vcchstbx29/20/2025 7:43 AM ESTdocumented as of this encounter Functional Status * BPAnswerDate of AwfzsosedaZwgxvv664/ 9:07 AM Niurka Huggins MA * PulseAnswerDate of MzyqepzuylYiehmq7718/15/2025 9:07 AM Niurka Huggins MA * Fall RiskQuestionAnswerDate of AssessmentAuthorWorried about fallin 05/16/2025 9:07 AM Niurka Huggins MAOne or more falls in the last year:No 05/16/2025 9:07 AM Niurka Huggins MAFeels unsteady when walkin 9:07 AM Niurka Huggins MA * BPAnswerDate of TnqwaljzroOzdvnw899 9:07 AM Niurka Huggins MA * TempAnswerDate of IlxdebvoywUrbeey21.91 9:07 AM Niurka Huggins MA * PulseAnswerDate of RhxudbutugEmlljo5328/15/2025 9:07 AM Niurka Huggins MA * RespAnswerDate of PmvzufuiikLsxxja1340/15/2025 9:07 AM Niurka Huggins MA * WmA2LaeyzpJvem of BensyysiauOrpjhp4138/15/2025 9:07 AM Niurka Huggins MA * Over the past 2 weeks, how often have you been bothered by any of the following problems?QuestionAnswerDate of AssessmentAuthorThoughts that you would be better off or hurting yourself in some wayNot at all05/16/2025 9:07 AM Niurka Huggins MAPatient Health Questionnaire-9 Lfcyx138 9:07 AM Niurka Huggins MATrouble falling or staying asleep, or sleeping too muchNot at all05/16/2025 9:07 AM Niurka Huggins MAFeeling tired or having little energyNot at all05/16/2025 9:07 AM Niurka Huggins MAPoor appetite or overeatingNot at all05/16/2025 9:07 AM Niurka Huggins MAFeeling bad about yourself - or that you are a failure or have let yourself or your family down Not at all05/16/2025 9:07 AM Niurka Huggins MATrouble concentrating on things, such as reading the newspaper or watching televisionNot at all 05/16/2025 9:07 AM Niurka Huggins MAMoving or speaking so slowly that other people could have noticed? Or the opposite - being so fidgety or restless that you have been moving around a lot more than usual.Not at all05/16/2025 9:07 AM Niurka Huggins MA * Over the past 2 weeks, how often have you been bothered by any of the following problems?QuestionAnswerDate of AssessmentAuthorLittle interest or pleasure in doing thingsNot at all05/16/2025 9:07 AM Niurka Huggins MA Feeling down, depressed, or hopelessNot at all05/16/2025 9:07 AM Niurka Huggins MAPatient Health Questionnaire-2 Ejibe529 9:07 AM Niurka Huggins MA documented as of this encounter Plan of Treatment DateTypeDepartmentCare Team (Latest Contact Info)Hoeuejpbilp00/28/2025 8:00 AM EDTFollow-Up [facility] Transplant [address] [place] [phone] Abebe Tan MD [address] [place] [phone] 05/29/2025 2:00 PM EDTAppointment [facility] US IMAGING [address] [place] [phone] 06/11/2025 9:00 AM ESTFollow-Up [facility] Transplant [address] [place] [phone] Jayjay Robin MD [address] [place] [phone] 06/19/2025 10:30 AM ESTFoow-[facility] Cardiology Clinic [address] [place] [phone] Izaiah Singh, ESPERANZA [address] [place], [place] [phone] 06/25/2025 11:00 AM ESTFollow-[facility] Neurology [address] [place] [address] Sera Silverio CNP [address] [place] [phone] documented as of this encounter Procedures Procedure NamePriorityDate/TimeAssociated DiagnosisCommentsHBV QUANT TMARoutine 05/16/2025 7:24 AM EDT Encounter for aftercare following kidney transplant Transplanted kidney Encounter for long-term (current) use of medications Encounter for screening for diseases of the blood and blood-forming organs and certain disorders involving the immune mechanism DONOR SPECIFIC FGAWNSHKAfvsknp26/15/2025 7:24 AM EDT Encounter for aftercare following kidney transplant Transplanted kidney Encounter for long-term (current) use of medications SINGLE ANTIGEN CLASS ZSIocezmd37/15/2025 7:24 AM EDT Encounter for aftercare following kidney transplant Transplanted kidney Encounter for long-term (current) use of medications SINGLE ANTIGEN CLASS ALardjxl19/15/2025 7:24 AM EDT Encounter for aftercare following kidney transplant Transplanted kidney Encounter for long-term (current) use of medications HCV QUANTITATIVE IYUIkwxnga02/15/2025 7:24 AM EDT Encounter for aftercare following kidney transplant Transplanted kidney Encounter for long-term (current) use of medications Encounter for screening for diseases of the blood and blood-forming organs and certain disorders involving the immune mechanism CBC WITH AUTO JRZJINNNNNKSJgklrow38/15/2025 7:24 AM EDT Encounter for aftercare following kidney transplant Transplanted kidney Encounter for long-term (current) use of medications HIV RNA, QUANTITATIVE, WDASigpmbs76/15/2025 7:24 AM EDT Encounter for aftercare following kidney transplant Transplanted kidney Encounter for long-term (current) use of medications Screening for human immunodeficiency virus Encounter for screening for diseases of the blood and blood-forming organs and certain disorders involving the immune mechanism TACROLIMUS BDDCXMseadpc87/15/2025 7:24 AM EDT Encounter for aftercare following kidney transplant Transplanted kidney Encounter for long-term (current) use of medications MANUAL DOKUALLIPSBUUgdhfyr61/15/2025 7:24 AM EDT Encounter for aftercare following kidney transplant Transplanted kidney Encounter for long-term (current) use of medications CBC AND ITMBJFDFFIEOSpzpvdi11/15/2025 7:24 AM EDT Encounter for aftercare following kidney transplant Transplanted kidney Encounter for long-term (current) use of medications URIC AFOXUpvxwyi74/15/2025 7:24 AM EDT Encounter for aftercare following kidney transplant Transplanted kidney Encounter for long-term (current) use of medications ANRFKHOQHOMvcdpfj52/15/2025 7:24 AM EDT Encounter for aftercare following kidney transplant Transplanted kidney Encounter for long-term (current) use of medications OOCAWLRBWEyfszyl96/15/2025 7:24 AM EDT Encounter for aftercare following kidney transplant Transplanted kidney Encounter for long-term (current) use of medications BILIRUBIN, SAFZCOHbeiash09/15/2025 7:24 AM EDT Encounter for aftercare following kidney transplant Transplanted kidney Encounter for long-term (current) use of medications COMPREHENSIVE METABOLIC SCCJKFcbuyqj07/15/2025 7:24 AM EDT Encounter for aftercare following kidney transplant Transplanted kidney Encounter for long-term (current) use of medications documented in this encounter Results * (ABNORMAL) Manual Differential (05/16/2025 7:24 AM EDT)ComponentValueRef Range Test MethodAnalysis TimePerformed AtPathologist SignatureImmature Granulocytes %0.70.0 - 1.0 %05/16/2025 9:42 AM [facility] ([facility])Neutrophils Wgwaawfe12.1(H)1.6 - 7.6 10*3/uL05/16/2025 9:42 AM [facility] ([facility])Lymphocytes Absolute1.11(L)1.20 - 4.00 10*3/uL05/16/2025 9:42 AM [facility] ([facility])Monocytes Absolute1.06(H)0.10 - 1.00 10*3/uL 05/16/2025 9:42 AM [facility] ([facility])Eosinophils Absolute0.000.00 - 0.50 10*3/uL05/16/2025 9:42 AM [facility] ([facility])Basophils Absolute0.020.00 - 0.20 10*3/uL05/16/2025 9:42 AM [facility] ([facility])Neutrophils %85.9(H)40.0 - 72.0 %05/16/2025 9:42 AM [facility] ([facility])Lymphocytes %6.8(L)20.0 - 45.0 %05/16/2025 9:42 AM [facility] ([facility])Monocytes %6.55.0 - 12.0 %05/16/2025 9:42 AM [facility] ([facility])Eosinophils %0.00.0 - 6.0 %05/16/2025 9:42 AM [facility] ([facility])Basophils %0.10.0 - 1.0 %05/16/2025 9:42 AM [facility] ([facility])Immature Granulocytes Absolute0.110.00 - 0.20 10*3/uL 05/16/2025 9:42 AM [facility] ([facility])Specimen (Source)Anatomical Location / LateralityCollection Method / VolumeCollection TimeReceived Time BloodVenous blood specimen / UnknownVenipuncture / Dlkjcck5305/16/2025 7:24 AM EDT1 8:04 AM EDT Narrative Authorizing ProviderResult TypeResult StatusJojazmin [facility] SystemLAB BLOOD ORDERABLESFinal ResultPerforming OrganizationAddressCity/State/ZIP CodePhone Number [facility] ([facility]) [address] [place] [address] * Bilirubin, direct (05/16/2025 7:24 AM EDT)ComponentValueRef RangeTest Method Analysis TimePerformed AtPathologist SignatureBilirubin, Direct0.10 - 0.2 mg/dL05/16/2025 8:45 AM [facility])Specimen (Source) Anatomical Location / LateralityCollection Method / VolumeCollection Time Received TimeBloodVenous blood specimen / UnknownVenipuncture / Unknown 05/16/2025 7:24 AM EDT1 8:02 AM EDT Narrative Authorizing ProviderResult TypeResult StatusJojazmin HowardCHI St. [facility] BLOOD ORDERABLESFinal ResultPerforming OrganizationAddressCity/State/ZIP CodePhone Number [facility] ([facility]) [address] [place] [address] * Single antigen class II (05/16/2025 7:24 AM EDT)ComponentValueRef RangeTest MethodAnalysis TimePerformed AtPathologist SignatureTested [id number] 05/22/2025 12:52 PM EDTUT TISSUE TYPING (HISTOTRAC)CommentsNo Class II donor specific antibody yopjmxdtad09/21/2025 12:52 PM EDTUT TISSUE TYPING (HISTOTRAC)Test MethodClass II Single Niespal4505/22/2025 12:52 PM EDTUT TISSUE TYPING (HISTOTRAC)Comment:Class II Antigen MicrobeadsSigned BySigned by Abebe Stovall CHT([facility]) ALYSSA([facility]), Superintendent Drilling Transplant Snhbpqjucn99/21/2025 12:52 PM EDTUT TISSUE TYPING (HISTOTRAC)Specimen (Source)Anatomical Location / LateralityCollection Method / VolumeCollection TimeReceived TimeBloodVenous blood specimen / UnknownVenipuncture / Ckmrvco6805/16/2025 7:24 AM EDT 05/16/2025 7:54 AM EDT Narrative Authorizing ProviderResult TypeResult StatusAshley Regional Medical Centerchaparro GarciaDossGeorge Regional Hospital BLOOD ORDERABLESFinal ResultPerforming OrganizationAddressCity/State/ZIP CodePhone Number [facility] TISSUE TYPING (HISTOTRAC) [address] [place], [place] [address] [phone] * Single antigen class I (05/16/2025 7:24 AM EDT)ComponentValueRef RangeTest MethodAnalysis TimePerformed AtPathologist SignatureTested [id number] 05/22/2025 12:52 PM EDTUT TISSUE TYPING (HISTOTRAC)Test MethodClass I Single Ixxrktr5405/22/2025 12:52 PM EDTUT TISSUE TYPING (HISTOTRAC)Signed BySigned by Abebe Stovall CHT([facility]) ALYSSA([facility]), Superintendent Drilling Transplant Vkijzlmcqv41/21/2025 12:52 PM EDTUT TISSUE TYPING (HISTOTRAC)Comment:Class I Antigen Microbeads CommentsNo Class I donor specific antibody ilkxswqfpd13/21/2025 12:52 PM EDT [facility] TISSUE TYPING (HISTOTRAC)Specimen (Source)Anatomical Location / LateralityCollection Method / VolumeCollection TimeReceived TimeBloodVenous blood specimen / UnknownVenipuncture / Ticlexc8505/16/2025 7:24 AM EDT1 7:54 AM EDT Narrative Authorizing ProviderResult TypeResult StatusJordchaparro Briseno [facility] BLOOD ORDERABLESFinal ResultPerforming OrganizationAddressCity/State/ZIP CodePhone Number [facility] TISSUE TYPING (HISTOTRAC) [address] [place] [address], * (ABNORMAL) CBC auto differential (05/16/2025 7:24 AM EDT)ComponentValueRef RangeTest MethodAnalysis TimePerformed AtPathologist SignatureAuto WBC16.62(H) 4.00 - 10.60 10*3/uL05/16/2025 9:42 AM [facility] ([facility])RBC3.26(L) 4.20 - 5.70 10*6/uL05/16/2025 9:42 AM [facility] ([facility])Hemoglobin 10.8(L)13.0 - 17.0 g/dL05/16/2025 9:42 AM [facility] ([facility]) Aadbzlukji95.4(L)39.0 - 50.0 %05/16/2025 9:42 AM [facility] ([facility]) FCV143.5(H)82.0 - 98.0 fL05/16/2025 9:42 AM [facility] ([facility])MCH 33.1(H)27.0 - 33.0 pg05/16/2025 9:42 AM [facility] ([facility])MCHC32.3 32.0 - 35.0 g/dL05/16/2025 9:42 AM [facility] ([facility])RDW17.2(H)11.5 - 15.0 %05/16/2025 9:42 AM [facility] ([facility])Lqhfryrrm236(L)150 - 400 10*3/uL05/16/2025 9:42 AM [facility] ([facility])nRBC %0.00 % 05/16/2025 9:42 AM [facility] ([facility])Immature Platelet Fraction % 11.1(H)0.8 - 6.3 %05/16/2025 9:42 AM [facility] ([facility])Specimen (Source)Anatomical Location / LateralityCollection Method / VolumeCollection TimeReceived TimeBloodVenous blood specimen / UnknownVenipuncture / Unknown 05/16/2025 7:24 AM EDT1 8:04 AM EDT Narrative Authorizing ProviderResult TypeResult StatusJordyn Finn [facility]ALLAB BLOOD ORDERABLESFinal ResultPerforming OrganizationAddressCity/State/ZIP CodePhone Number [facility] ([facility]) [address] [place], [place] [phone] * HIV RNA, quantitative, TMA (05/16/2025 7:24 AM EDT)ComponentValueRef RangeTest MethodAnalysis TimePerformed AtPathologist SignatureHIV-1 InterpretationNot DetectedNot Emdmtdqq40/21/2025 7:36 AM [facility] ([facility])HIV Quantitative RNA05/22/2025 7:36 AM [facility] ([facility])Comment:Not DetectedHIV Quantitative RNA 05/22/2025 7:36 AM [facility] ([facility])Comment:Not DetectedSpecimen (Source)Anatomical Location / Laterality Collection Method / VolumeCollection TimeReceived TimeBloodVenous blood specimen / UnknownVenipuncture / Zlzhupp3905/16/2025 7:24 AM EDT1 8:04 AM EDT Narrative [facility] ([facility]) - 05/22/2025 7:36 AM EDT The Aptima HIV Quant assay is a real-time banner painter-mediated amplification (TMA) test which has a dynamic range of 30-10,000,000 copies/mL (1.47-7.0 log copies/mL). The Aptima HIV Quant assay is used for detection and quantitation of human immunodeficiency virus type 1 (HIV-1) RNA in human plasma from HIV-infected individuals. The Aptima HIV-1 Quant assay is intended for use in conjunction with clinical presentation and other laboratory markers for disease prognosis and for use as an aid in monitoring the effects of antiretroviral treatment, as measured by changes in plasma HIV-1 RNA levels. This assay is not intended to be used as a donor screening test for HIV-1 or as a diagnostic test to confirm the presence of HIV-1 infection. Authorizing ProviderResult TypeResult StatusJochaparro [employer] BLOOD ORDERABLESFinal ResultPerforming OrganizationAddressCity/State/ZIP CodePhone Number [facility] ([facility]) [address] [place] [address] * HCV QUANTITATIVE TMA (05/16/2025 7:24 AM EDT)ComponentValueRef RangeTest MethodAnalysis TimePerformed AtPathologist SignatureHCV TMA InterpNot Detected Not Gaoyfbme61/15/2025 3:27 PM [facility] ([facility])HCV Quantitative TMA05/16/2025 3:27 PM [facility] ([facility])Comment:Not DetectedHCV Quantitative 05/16/2025 3:27 PM [facility] ([facility])Comment:Not DetectedSpecimen (Source)Anatomical Location / LateralityCollection Method / VolumeCollection TimeReceived TimeBloodVenous blood specimen / Unknown Venipuncture / Cbqxfyd7605/16/2025 7:24 AM EDT1 8:04 AM EDT Narrative [facility] ([facility]) - 05/16/2025 3:27 PM EDT The Aptima HCV Quant Dx assay is a real-time banner painter-mediated amplification (TMA) test which has a dynamic [...] HCV RNA in blood or blood products. Authorizing ProviderResult TypeResult StatusJojazmin [facility] SystemLAB MOLECULAR DIAGNOSTICS ORDERABLESFinal ResultPerforming OrganizationAddressCity/State/ZIP CodePhone Number [facility] ([facility]) [place] [address] * HBV QUANT TMA (05/16/2025 7:24 AM EDT)ComponentValueRef RangeTest Method Analysis TimePerformed AtPathologist SignatureHBV TMA InterpNot DetectedNot Dlvnikcw04/16/2025 3:01 PM [facility] ([facility])HBV TMA Quantitative 05/17/2025 3:01 PM [facility] ([facility])Comment:Not DetectedHBV Quantitative 05/17/2025 3:01 PM [facility] ([facility])Comment:Not DetectedSpecimen (Source)Anatomical Location / LateralityCollection Method / VolumeCollection TimeReceived TimeBloodVenous blood specimen / Unknown Venipuncture / Hzvqyfz4305/16/2025 7:24 AM EDT1 8:04 AM EDT Narrative [facility] ([facility]) - 05/17/2025 3:01 PM EDT The Aptima HBV Quant assay is a real-time banner painter-mediated amplification (TMA) test which has a dynamic range of 10-1,000,000,000 IU/mL (1.0-9.0 log IU/mL). The Aptima HBV Quant assay is used for both detection and quantitation of hepatitis B virus (HBV) DNA in human serum and plasma from HBV-infected individuals. The results from the Aptima HBV Quant assay must be interpreted within the context of all relevant clinical and laboratory findings. ??The Aptima HBV Quant assay is not approved for use as a screening test for the presence of HBV DNA in blood or blood products. Authorizing ProviderResult TypeResult StatusJojazmin HowardParkview LaGrange HospitalEfficient Drivetrains ORDERABLESFinal ResultPerforming OrganizationAddressCity/State/ZIP CodePhone Number [facility] ([facility]) [place] [address] * Tacrolimus level (05/16/2025 7:24 AM EDT)ComponentValueRef RangeTest Method Analysis TimePerformed AtPathologist SignatureTacrolimus Lvl5.25.0 - 20.0 ng/mL05/16/2025 9:39 AM [facility] ([facility])Comment:The CM PIGMENT PROCESSOR Tacrolimus assay is a delayed one-step immunoassay for the quantitative determination of tacrolimus in human whole blood using the chemiluminescent microparticle immunoassay (CMIA) technology with flexible assay protocols, referred to as Chemiflex.Specimen (Source)Anatomical Location / LateralityCollection Method / VolumeCollection TimeReceived TimeBloodVenous blood specimen / UnknownVenipuncture / Oaehnfq0805/16/2025 7:24 AM EDT 05/16/2025 8:03 AM EDT Narrative Authorizing ProviderResult TypeResult StatusF[facility] BLOOD ORDERABLESFinal ResultPerforming OrganizationAddressCity/State/ZIP CodePhone Number [facility]) [address] [place] [phone] * Uric acid (05/16/2025 7:24 AM EDT)ComponentValueRef RangeTest MethodAnalysis TimePerformed AtPathologist SignatureUric Acid6.74.4 - 7.6 mg/dL05/16/2025 9:11 AM [facility] ([facility])Specimen (Source)Anatomical Location / LateralityCollection Method / VolumeCollection TimeReceived TimeBloodVenous blood specimen / UnknownVenipuncture / Cctmsrl4305/16/2025 7:24 AM EDT1 8:02 AM EDT Narrative Authorizing ProviderResult TypeResult StatusFulton County Medical Center BLOOD ORDERABLESFinal ResultPerforming OrganizationAddressCity/State/ZIP CodePhone Number [facility]) [address] [place] [phone] * Phosphorus (05/16/2025 7:24 AM EDT)ComponentValueRef RangeTest MethodAnalysis TimePerformed AtPathologist SignaturePhosphorus2.52.5 - 5.0 mg/dL05/16/2025 8:45 AM [facility])Specimen (Source)Anatomical Location / LateralityCollection Method / VolumeCollection TimeReceived TimeBloodVenous blood specimen / UnknownVenipuncture / Gficfst6605/16/2025 7:24 AM EDT1 8:02 AM EDT Narrative Authorizing ProviderResult TypeResult StatusAshley Regional Medical Centerchaparro Doss CNPLAB BLOOD ORDERABLESFinal ResultPerforming OrganizationAddressCity/State/ZIP CodePhone Number [facility] ([facility]) [address] [place] [address] * (ABNORMAL) Magnesium (05/16/2025 7:24 AM EDT)ComponentValueRef RangeTest MethodAnalysis TimePerformed AtPathologist SignatureMagnesium1.8(L)1.9 - 2.7 mg/dL05/16/2025 8:45 AM [facility] ([facility])Specimen (Source) Anatomical Location / LateralityCollection Method / VolumeCollection Time Received TimeBloodVenous blood specimen / UnknownVenipuncture / Unknown 05/16/2025 7:24 AM EDT1 8:02 AM EDT Narrative Authorizing ProviderResult TypeResult StatusAshley Regional Medical Centerchaparro [facility] BLOOD ORDERABLESFinal ResultPerforming OrganizationAddressCity/State/ZIP CodePhone Number [facility] ([facility]) [address] [place] [address] * (ABNORMAL) Comprehensive metabolic panel (05/16/2025 7:24 AM EDT)Component ValueRef RangeTest MethodAnalysis TimePerformed AtPathologist SignatureSodium 001250 - 145 mmol/L1 8:45 AM [facility] ([facility])Potassium 3.93.5 - 5.1 mmol/L1 8:45 AM [facility] ([facility])Hgqoxaos055 98 - 107 mmol/L1 8:45 AM [facility] ([facility])[id number] - 31 mmol/L1 8:45 AM [facility] ([facility])Anion Xzy065 - 20 mmol/L 05/16/2025 8:45 AM [facility] ([facility])BUN30(H)7 - 25 mg/dL05/16/2025 8:45 AM [facility] ([facility])Creatinine1.43(H)0.70 - 1.30 mg/dL 05/16/2025 8:45 AM [facility] ([facility])BUN/Creatinine Ratio21.0 05/16/2025 8:45 AM [facility] ([facility])Ippbzne920(H)70 - 100 mg/dL 05/16/2025 8:45 AM [facility] ([facility])Calcium8.2(L)8.6 - 10.3 mg/dL 05/16/2025 8:45 AM [facility] ([facility])AST12(L)13 - 39 U/L1 8:45 AM [facility] ([facility])ALT (SGPT)97 - 52 U/L1 8:45 AM [facility] ([facility])Alkaline Vzaovzxbpci5588 - 104 U/L1 8:45 AM [facility] ([facility])Total Protein5.2(L)6.0 - 8.3 g/dL05/16/2025 8:45 AM [facility] ([facility])Albumin3.3(L)3.5 - 5.7 g/dL05/16/2025 8:45 AM [facility] ([facility])Total Bilirubin0.80.3 - 1.0 mg/dL 05/16/2025 8:45 AM [facility] ([facility])eGFR52.7(L)>60.0 mL/min/1.73m* 8:45 AM [facility] ([facility])Comment:[facility]???s estimated glomerular filtration rate (eGFR) will no [...] not disproportionately affect any one group of individuals.Specimen (Source)Anatomical Location / LateralityCollection Method / VolumeCollection TimeReceived TimeBloodVenous blood specimen / UnknownVenipuncture / Toompka4605/16/2025 7:24 AM EDT1 8:02 AM EDT Narrative Authorizing ProviderResult TypeResult StatusJojazmin Briseno CNPLAB BLOOD ORDERABLESFinal ResultPerforming OrganizationAddressCity/State/ZIP CodePhone Number [facility] ([place]) [address] [place] [address] documented in this encounter Visit Diagnoses Diagnosis Encounter for aftercare following kidney transplant Transplanted kidney Kidney replaced by transplant Encounter for long-term (current) use of medications Encounter for long-term (current) use of other medications Encounter for screening for diseases of the blood and blood-forming organs and certain disorders involving the immune mechanism Screening for human immunodeficiency virus Special screening examination for other specified viral diseases documented in this encounter Care Teams Team MemberRelationshipSpecialtyStart DateEnd Date Abebe Stewart MD [address] [place] [address], [address] [phone] PCP - GeneralInternal Medicine09/21/24 Abebe Tan MD [address] [place] [address] Consulting PhysicianUrology04/07/25documented as of this encounter
--- OUTSIDE RECORDS SUMMARY | 2025-05-16 08:00 | XMS_ITS | Encounter Summary ---
Author Organization [facility] Address [address] [place] [address] Care Team Providers Care Dietetic Technician Registered Name Role Phone Abebe Stewart MD Primary Care Provider [phone] Abebe Tan MD Unavailable Reason for Visit * ReasonCommentsKidney Follow-up Encounter Details DateTypeDepartmentCare Team (Latest Contact Info)Yqmfolosgha29/15/2025 8:00 AM EDTFollow-Up [facility] [address] [place] [address] Jayjay Robin MD [address] [place] [address] Immunosuppression (Primary Dx); Kidney replaced by transplant; Primary hypertension; Urinary retention; Hypocalcemia; Cerebrovascular accident (CVA), unspecified mechanism (CMS/HCC); Hypomagnesemia; Gastroesophageal reflux disease without esophagitis; Hypophosphatemia; Bilateral lower extremity edema; S/P TURP; Other elevated white blood cell (WBC) count Social History Tobacco UseTypesPacks/DayYears UsedDateSmoking Tobacco: OdvjffAzjpmmbbkh0770 - 1974Passive Smoke Exposure: PastSmokeless Tobacco: NeverAlcohol UseStandard Drinks/WeekCommentsYes0 (1 standard drink = 0.6 oz pure alcohol)[facility] UtilitiesAnswerDate RecordedIn the past 12 months has the electric, gas, oil, or water [employer] threatened to shut off services in your [...] times a week04/05/2025How often do you attend orthodoxy or zoroastrian services?Never04/05/2025Do you belong to any clubs or organizations such as orthodoxy groups, unions, fraternal or athletic groups, or school groups?No04/05/2025How often do you attend meetings of the clubs or organizations you belong to?Never04/05/2025re you , , , , never , or living with a partner?Jjzvtaibu62/04/2025UDIT-C AnswerDate RecordedQ1: How often do you have [...] heating?Not very hard05/11/2025 PHQ-2AnswerDate RecordedPatient Health Questionnaire-2 Yyhlb740[facility] [place] of Occupational Health - Occupational Stress QuestionnaireAnswerDate RecordedDo you feel stress - tense, restless, nervous, or anxious, or unable to sleep at night because yourmind is troubled all the time - these days?Only a biajrg8704/05/2025TransportationAnswerDate RecordedIn the past 12 months, has lack [...] homeless or living in a halfway (including now)?No05/11/2025Hunger Vital SignAnswerDate Recorded Within the past 12 months, you worried that your food would run out before you got the money to buymore.Never true05/11/2025Within the past 12 months, the food you bought just didn't last and you didn't have money to get more.Never true 05/11/2025Sex and Gender InformationValueDate RecordedSex Assigned at BirthMale 09/21/2024 6:43 AM ESTLegal PowBjmw8701/29/2022 12:45 AM EDTGender IdentityMale 09/21/2024 7:43 AM ESTSexual OrientationHeterosexual or Extgvcpr18/20/2025 7:43 AM ESTdocumented as of this encounter Last Filed Vital Signs Vital SignReadingTime TakenCommentsBlood Qmfnlzxa651/7105/16/2025 9:07 AM EDT Xybic890305/16/2025 9:07 AM DGJFcpodtvthxz49.6 ??C (97.9 ??F)05/16/2025 9:07 AM EDTRespiratory Klgx1080 9:07 AM EDTOxygen Spxkzhydhw12%05/16/2025 9:07 AM EDTInhaled Oxygen Concentration--Vjcjxg67.1 kg (176 lb 8 oz)05/16/2025 9:07 AM AMBYwcgal507.4 cm (6' 1 )05/16/2025 9:07 AM EDTBody Mass Index23.2910/ 9:07 AM EDTdocumented in this encounter Functional Status * BPAnswerDate of PjpiqyqkseZujngf264/7105/16/2025 9:07 AM Niurka Huggins MA * PulseAnswerDate of AnoizlkkuzFjvqwp4601/15/2025 9:07 AM Niurka Huggins MA * Fall RiskQuestionAnswerDate of AssessmentAuthoWorried about fallin 05/16/2025 9:07 AM Niurka Huggins MAOne or more falls in the last year:No 05/16/2025 9:07 AM Niurka Huggins MAFeels unsteady when walkin 9:07 AM Niurka Huggins MA * BPAnswerDate of MjwbpfmdpvMamqri289/7105/16/2025 9:07 AM Niurka Huggins MA * TempAnswerDate of XephnfudsjIkpsst52.91 9:07 AM Niurka Huggins MA * PulseAnswerDate of RsulpgxofvGirstc8843/15/2025 9:07 AM Niurka Huggins MA * RespAnswerDate of ZhuxrmwevuNxdxzg3299/15/2025 9:07 AM Niurka Huggins MA * QwL0MpofxlXgck of UaoqszolnwUswusm7441/15/2025 9:07 AM Niurka Huggins MA * Over the past 2 weeks, how often have you been bothered by any of the following problems?QuestionAnswerDate of AssessmentAuthorThoughts that you would be better off or hurting yourself in some wayNot at all05/16/2025 9:07 AM Niurka Huggins MAPatient Health Questionnaire-9 Ttykp283 9:07 AM Niurka Huggins MATrouble falling or [...] televisionNot at all 05/16/2025 9:07 AM Niurka Huggins, MAMoving or speaking so slowly that other [...] 9:07 AM Niurka Huggins MAPatient Health Questionnaire-2 Zwdvw333 9:07 AM Niurka Huggins MA documented as of this encounter Patient Instructions * Patient Instructions* Zahra Rhoades RN - 05/16/2025 8:00 AM EDT Do NOT follow instructions on Envarsus (tacrolimus XR) bottle. Always follow what the transplant clinic verbally tells you to take. Continue to take Envarsus (tacrolimus XR) 4.5 mg daily unless notified by phone or voicemail to adjust the dosage. Medication Changes Decrease Prednisone to 10 mg once a day Add protein shakes to your diet Labs every week and at every appointment Follow up with Nephrology in 1 week, and Dr. Robin in 2 weeks documented in this encounter Progress Notes * Jayjay Robin MD - 05/16/2025 8:00 AM EDT Images from the original note were not included. 05/16/2025 Chief Complaint Patient presents with Kidney Follow-up PCP: Abebe Stewart MD Txp Referring: Shereen Stephens Preferred Pharmacy: [facility] [id number] [facility] [address] [facility] [address] [facility] [id number] [facility] [place] - [address] [place] [address] [place] [address] [facility] [address] [facility] - [facility] [address] [address] Organ: Kidney Subjective Visit Vitals BP 125/71 Pulse 69 Temp 36.6 ??C (97.9 ??F) Resp 16 Ht 1.854 m (6' 1 ) Wt 80.1 kg (176 lb 8 oz) SpO2 97% BMI 23.29 kg/m?? Smoking Status Former BSA 2.03 m?? Allergies[1] SHELLFISH AMLODIPINE Immunization History Administered [...] Abdominal pain resolved. Patient comes to the [facility] transplant clinic for a follow-up visit. Patient reports making about 2000 mL of urine per day. Patient currently has rashid catheter in place. Underwent a TURP last week, void trial on Wednesday was unsuccessful, will try again today. Review of Systems Constitutional: Negative for chills [...] Cervical back: Neck supple. Right lower leg: No edema. Left lower leg: No edema. Comments: B/l edema resolved Skin: Coloration: Skin is not jaundiced. Findings: No rash. Neurological: Mental Status: He is alert and oriented to person, place, and time. Psychiatric: Mood and Affect: Mood normal. Lab Results Component Value Date CREATININE 1.43 (H) 05/16/2025 CREATININE (MG/DL) IN URINE 99.0 04/23/2025 SODIUM 140 05/16/2025 POTASSIUM 3.9 05/16/2025 CHLORIDE 103 05/16/2025 MAGNESIUM 1.8 (L) 05/16/2025 CALCIUM 8.2 (L) 05/16/2025 HEMATOCRIT 33.4 (L) 05/16/2025 HEMOGLOBIN 10.8 (L) 05/16/2025 HEMOGLOBIN A1C 4.6 04/29/2025 PLATELETS AUTO 102 (L) 05/16/2025 TACROLIMUS LVL 5.2 05/16/2025 Donor ABO: O Donor Labs: CMV: Negative HBC: Negative HCV: Negative Assessment/Plan 69 year old male, 11 weeks status post donor renal transplant. Patient was not on dialysisprior to transplant. Patient did not have delayed graft function and did not require dialysis post transplant. Admission creatinine was 7.28 and discharge creatinine was 5.12. Today's creatinine 1.43from 1.48. Admitted 04/05/2025 for GI Bleed/ diverticulitis/ urinary [...] Nonspecific small volume free intraperitoneal fluid. 04/10/2025 transplanted kidney: IMPRESSION: *No collecting system dilatation. *Simple appearing peritransplant fluid collection measuring 3.0 x 1.3 x 7.4 cm is slightly larger than on previous study likely representing postoperative seroma or hematoma. This is not exerting mass effect upon the underlying transplant kidney. *Small simple renal cyst. 04/28/2025 Admitted for stroke Alberto Waller is a 69 y.o. right handed male who presented to [facility] for concern of stroke. Patient initially presented to [facility] earlier in the day for concern of stroke, with documented GCS score of 15 at that time, with an NIH score of 6 (1 point for not knowing the month, 2 points for partial paralysis of the lower face, 1 point for limb ataxia, and 2 points for severe to the dysarthria). It was reported at that time by family that they noticed that he had trouble writing with his right hand the day prior, 04/27/2025. Today, 04/28/2025, they noticed right sided facial drooping, butpatient was able to eat breakfast and walk without any problems. Family denies noticing any facial d rooping when the patient went to bed yesterday evening. At [place], patient underwent noncontrast CT of the head, which showed no evidence of hemorrhagic stroke. Due to time since last well-known, it was determined that he was not a thrombolytic candidate. Patient was transferred from [facility] to [facility] for his elevated creatinine and recent kidney transplant. When patient arrived, patient was seen and assessed by urology. Patient was ultimately sent down for stat MRI, which revealed ischemic 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 Discussion was had with Neurology, who agreed with the MRI read and recommended initiation of aspirin 81 mg p.o. oncedaily or aspirin 300 mg rectally if unable to tolerate oral intake. Swallow study was ordered for the patient. Patient was seen and evaluated at bedside again following the MRI, and the patient reports that he has a history of DVT (07/2021), but following GI bleed (05/2022) warfarin was discontinued. The patient's last INR was 1.11 on 04/05/2025. Patient was seen by Neurology and it was felt the stroke was cardioembolic in nature. He was started on aspirin 81mg daily. Carotid ultrasound was normal, echocardiogram was overall unremarkable. Patient was seen by PT/OT and speech. He did well with motor activities. According to speech therapy, will require continued speech services at home through home health care. Patient to follow up with neuro in 4-6 weeks. Patient discharged with event monitor. Patient continued to have urinary retention concerns. Rashid catheter was exchanged due to prolongedplacement. During exchange transplant ureteral stent was removed through cystoscopy. Patient tolerated procedure well. Patient is going to follow up with urologist Monday 05/07 for BPH work up and potentially have TURP on 05/11/2025. Patient did have elevated propsera and elevated creatinine. There were concerns for rejection, but unable to do biopsy due to new start of aspirin. Patient was given 3 doses of solumedrol 250mg to treat potential rejection. Creatinine improved from 2.52 to 1.78. Immunosuppression on discharge Envarsus 4mg daily, myfortic 360mg twice daily, and prednisone 20mg daily BK: 04/13/2025 not detected CMV: not tested DSA: 04/26/2025 and 04/13/25 not detected Prospera: 04/26/2025 was 0.59% Rashid catheter removed on post op day 3. Immunosuppression: For induction patient received simulect, received only one dose, second one was not given due to diverticulitis. Received second dose of simulect on (04/26). For maintenance immunosuppression: Envarsus 4 mg daily, TAC level today is 5.2. Patient told to increase dose to 4.5 mg daily. Myfortic 540 mg BID (lower dose due to diverticulitis and diarrhea), Decrease prednisone from 20 to 10 mg daily, was on higher dose earlier due to subtherapeutic levels. Immunoprophylaxis: Nystatin 5mL four times daily, bactrim DS MWF, valcyte 450mg QAM CMV status is donor negative / recipient negative EBV status is donor positive/ recipient positive Diverticulitis: Vantin-cefpodoxime 400mg QAM for 14 days last dose 04/20 Flagyl 500mg BID for 14 days last dose 04/20 Pain improved Plan for colonoscopy in 6 weeks per GI, Hypertension: coreg 25mg BID, hydralazine 100mg TID, nifedipine 30 mg daily, bumex 1 mg daily. Blood pressure is running good (develops swelling from amlodipine, we will carefully monitor for that with nifedipine). No swelling currently Stroke: ASA 81mg QD GERD: Protonix 40 mg daily, pepcid 20 mg QPM (due to hypomagnesemia) due to GI bleed recently, no bleeding currently, does not have reflux symptoms currently Hypophosphatemia: K phos neutral 1 tablet BID Hypomagnesemia: Mag glycinate 300 mg tid Hypocalcemia: Increase Tums 3 tabs bid, increase protein in diet to improved albumin levels Hypoalbuminemia/ LE edema: Increase protein in diet, continue Bumex 1 mg daily Diarrhea : Stopped Colace and Glycolax, lower myfortic dose to 540 mg bid, one loose Bms daily BPH/ urinary retention: Flomax 0.8mg QAM, Finasteride 5 mg daily. , rashid catheter in place, s/p TURP on 05/11, retained after removing rashid on 05/14, void trial again today. F/U from TURP on 05/14/25- Patient filled with 200 mL saline and waited approximately 20 minutes. The patient cannot void. I discussed with him coming back later in the afternoon and giving it more time but he lives a distance away. Will replace the catheter today. Will have him come back Wednesdayfor another trial of void. Anemia: Had Retacrit 04/20, Hgb good now, does not need retacrit Rashid: Rashid replaced 05/14/25 Void trial & CIC teaching scheduled today 05/16/25 Drain: Removed 04/07/2025 Stent: out on 05/01, grew pseudomonas Leukocytosis: asymptomatic, check urine culture today, has indwelling rashid Follow up: Next week with Nephrology, see me in 2 weeks. Jayjay Robin MD [1] Allergies Allergen Reactions [...] Bilateral lower extremity edema Hypocalcemia Hypomagnesemia Diarrhea Immunosuppressive management encounter following kidney transplant Hypoalbuminemia Suspected stroke patient last known to be well more than 2 hours ago Ischemic stroke diagnosed during current admission (CMS/HCC) BPH with obstruction/lower urinary tract symptoms BPH with urinary obstruction [3] Family History Problem Relation Name Age of Onset Heart disease Father Had pacemaker [4] Social History Tobacco Use Smoking status: Former Types: Cigarettes Start date: 1999 Quit date: 1974 Years since quittin.8 Passive exposure: Past Smokeless tobacco: Never Vaping Use Vaping status: Never Used Substance Use Topics Alcohol use: Yes Comment: rare Drug use: Never [5] Past Medical History: Diagnosis Date Anemia in chronic kidney disease (CKD) CKD (chronic kidney disease) stage 5, GFR less than 15 ml/min (CMS/HCC) Diverticular disease s/p colectomy 2016 Gout History of DVT (deep vein thrombosis) proximal vein left leg (from distal calf to groin, 07/2021, was to be on lifelong warfarin but stopped after 05/2022 GI bleed) Hypertensive disorder Lung nodule seen on imaging study NSAID long-term use h/o Proteinuria Recurrent sinusitis Recurrent sinusitis Renal cyst, left Secondary hyperparathyroidism of renal origin Stroke (CMS/HCC) Vitamin D deficiency [6] Past Surgical History: Procedure Laterality Date COLECTOMY PARTIAL / TOTAL 2016 diverticular disease COLONOSCOPY 10/05/2022 Diverticulosis in the [...] on direct and retroflexion v iews. COLONOSCOPY 2015 attempted - unable to get past 40 cm SPLENECTOMY, TOTAL TRANSPLANT, KIDNEY, OPEN documented in this encounter Plan of Treatment DateTypeDepartmentCare Team (Latest Contact Info)Hkogmvayafm82/28/2025 8:00 AM EDTFollow-Up [facility] Transplant [address] [place] [address] Abebe aTn MD [address] [place] [phone] 05/29/2025 2:00 PM EDTAppointment [facility] IMAG[facility] [address] [place] [phone] 06/11/2025 9:00 AM ESTFollow-Up [facility] Transplant [address] [place] [phone] Jayjay Robin MD [address] [place] [phone] 06/19/2025 10:[address] [facility] [address] [place] [phone] Izaiah Singh, SWIMMING POOL SERVICE TECHNICIAN [address] [place] [address] 06/25/2025 11:00 AM ESTFollow-[facility] [address] [place] [phone] Sera Silverio, SWIMMING POOL SERVICE TECHNICIAN [address] [place] [address] documented as of this encounter Procedures Procedure NamePriorityDate/TimeAssociated DiagnosisCommentsURINALYSIS MICROSCOPIC WITH REFLEX UZBEFQGQsnblek51/15/2025 10:39 AM EDT Kidney replaced by transplant URINALYSIS WITH REFLEX RPQZJSXXpcaiho59/15/2025 10:39 AM EDT Kidney replaced by transplant PROTEIN, URINE, SLWBKROjpaaue71/15/2025 10:39 AM EDT Kidney replaced by transplant CREATININE, URINE, EASDWCYdxfmge04/15/2025 10:39 AM EDT Kidney replaced by transplant URINE MQQPQTBFuhmjqo50/15/2025 10:39 AM EDT Kidney replaced by transplant documented in this encounter Results * (ABNORMAL) Urine culture, routine (05/16/2025 10:39 AM EDT)ComponentValueRef RangeTest MethodAnalysis TimePerformed AtPathologist SignatureUrine Culture >100,000 CFU/Ml Pseudomonas aeruginosa(A) JES 05/18/2025 8:18 AM [facility] ([facility])Specimen (Source)Anatomical Location / LateralityCollection Method / VolumeCollection TimeReceived TimeUrine Urine specimen obtained by clean catch procedure / UnknownNon-blood Collection / Vmeztuv2705/16/2025 10:39 AM EDT1 10:47 AM EDT Narrative OrganismAntibioticMethodSusceptibilityPseudomonas aeruginosaCefepimeMIC 8 ug/ml: Susceptible Pseudomonas aeruginosaCiprofloxacinMIC 1 ug/ml: Intermediate Pseudomonas aeruginosaLevofloxacinMIC 2 ug/ml: Intermediate Pseudomonas aeruginosaMeropenemMIC 2 ug/ml: Susceptible Pseudomonas aeruginosaPiperacillin + TazobactamMIC 32/4 ug/ml: Intermediate Pseudomonas aeruginosaTobramycinMIC <=2 ug/ml: Susceptible Comment:If piperacillin-tazobactam JES value is >16/4 ug/ml alternative therapy is recommended.Authorizing ProviderResult TypeResult Jalen FAJARDO MICROBIOLOGY - GENERAL ORDERABLESFinal ResultPerforming OrganizationAddress City/State/ZIP CodePhone Number [facility] ([facility]) [address] [place] [address] * (ABNORMAL) Urinalysis microscopic with reflex culture (05/16/2025 10:39 AM EDT)ComponentValueRef RangeTest MethodAnalysis TimePerformed AtPathologist SignatureRBC, Urine>20(A)None Seen, 0-2 /HPF05/16/2025 11:12 AM [facility] ([facility])WBC, Urine>50(A)None Seen, 0-2 /HPF05/16/2025 11:12 AM [facility] ([facility])Squamous Epithelial, UrineNone SeenNone Seen, Occasional, Few /LP05/16/2025 11:12 AM [facility] ([facility])Mucus, UrineOccasionalNone Seen, Occasional, Few /LP05/16/2025 11:12 AM [facility] ([facility])WBC Clumps, UrinePresent(A)None Seen /HPF05/16/2025 11:12 AM [facility] ([facility])Specimen (Source)Anatomical Location / LateralityCollection Method / VolumeCollection TimeReceived TimeUrineUrine specimen obtained by clean catch procedure / UnknownNon-blood Collection / Ckfregd1605/16/2025 10:39 AM EDT1 10:47 AM EDT Narrative Authorizing ProviderResult TypeResult StatusJayjay FAJARDO URINE ORDERABLES Final ResultPerforming OrganizationAddressCity/State/ZIP CodePhone Number [facility] ([facility]) [address] [place] [address] * Creatinine, urine, random (05/16/2025 10:39 AM EDT)ComponentValueRef RangeTest MethodAnalysis TimePerformed AtPathologist SignatureCreatinine, Ur78.026 - 299 mg/dL05/16/2025 11:20 AM [facility] ([facility])Specimen (Source) Anatomical Location / LateralityCollection Method / VolumeCollection Time Received TimeUrineUrine specimen obtained by clean catch procedure / Unknown Non-blood Collection / Skoilvm9605/16/2025 10:39 AM EDT1 10:47 AM EDT Narrative Authorizing ProviderResult TypeResult StatusJayjay Robin ILTONO URINE ORDERABLES Final ResultPerforming OrganizationAddressCity/State/ZIP CodePhone Number [facility]) [address] [place] [address] * Protein, urine, random (05/16/2025 10:39 AM EDT)ComponentValueRef RangeTest MethodAnalysis TimePerformed AtPathologist SignatureProtein, Ur154.4mg/dL 05/16/2025 11:20 AM [facility] ([facility])Comment:There are no established reference values for random urine specimens.Specimen (Source) Anatomical Location / LateralityCollection Method / VolumeCollection Time Received TimeUrineUrine specimen obtained by clean catch procedure / Unknown Non-blood Collection / Bzmdolh5705/16/2025 10:39 AM EDT1 10:47 AM EDT Narrative Authorizing ProviderResult TypeResult StatusJayjay FAJARDO URINE ORDERABLES Final ResultPerforming OrganizationAddressty/State/ZIP CodePhone Number [facility]) [address] [place] [address] * (ABNORMAL) Urinalysis with reflex culture (05/16/2025 10:39 AM EDT)Component ValueRef RangeTest MethodAnalysis TimePerformed AtPathologist SignatureColor, UrineDark-Yellow(A)Colorless, Yellow, Light-Uubhqg5505/16/2025 11:05 AM [facility] ([facility])Clarity, UrineCloudy(A)Clear05/16/2025 11:05 AM [facility] ([facility])pH, Urine6.55.0 - 8.0 pH05/16/2025 11:05 AM [facility] ([facility])Leukocytes, UrineLarge(A)Syijbwau04/15/2025 11:05 AM EDT [facility] ([facility])Nitrite, PeumdEzedcfpsUacstjyq00/15/2025 11:05 AM [facility] ([facility])Protein, Yeqmw744(A)Negative mg/dL05/16/2025 11:05 AM [facility] ([facility])Glucose, UrineNormalNormal mg/dL 05/16/2025 11:05 AM [facility] ([facility])Bilirubin, UrineNegative Hqzuqifx97/15/2025 11:05 AM [facility] ([facility])Specific [place], Urine1.0141.010 - 1.1403505/16/2025 11:05 AM [facility] ([facility]) Ketones, UrineNegativeNegative mg/dL05/16/2025 11:05 AM [facility] ([facility])Blood, UrineLarge(A)Cfjfrfjf50/15/2025 11:05 AM [facility] ([facility])Urobilinogen, UrineNormalNormal mg/dL05/16/2025 11:05 AM [facility] ([facility])Specimen (Source)Anatomical Location / Laterality Collection Method / VolumeCollection TimeReceived TimeUrineUrine specimen obtained by clean catch procedure / UnknownNon-blood Collection / Unknown 05/16/2025 10:39 AM EDT1 10:47 AM EDT Narrative Authorizing ProviderResult TypeResult StatusKunal Lobito FAJARDO URINE ORDERABLES Final ResultPerforming OrganizationAddressCity/State/ZIP CodePhone Number [facility] ([facility]) [address] [place] [address] documented in this encounter Visit Diagnoses Diagnosis Immunosuppression- Primary Kidney replaced by transplant Primary hypertension Unspecified essential hypertension Urinary retention Unspecified retention of urine Hypocalcemia Cerebrovascular accident (CVA), unspecified mechanism (CMS/HCC) Hypomagnesemia Disorders of magnesium metabolism Gastroesophageal reflux disease without esophagitis Esophageal reflux Hypophosphatemia Disorders of phosphorus metabolism Bilateral lower extremity edema S/P TURP Other elevated white blood cell (WBC) count documented in this encounter Care Teams Team MemberRelationshipSpecialtyStart DateEnd Date Abebe Stewart MD [address] [place] [address], [address] [place], [place] [address] PCP - GeneralInternal Medicine09/21/24 Abebe Tan MD [address] [place] [phone] Consulting PhysicianUrology04/07/25documented as of this encounter
--- OUTSIDE RECORDS SUMMARY | 2025-05-16 11:00 | XMS_ITS | Encounter Summary ---
Author Organization [facility] Address [address] [place] [address] Care Team Providers Care Skin Carver Name Role Phone Abebe Stewart MD Primary Care Provider [phone] Abebe Tan MD Unavailable Encounter Details DateTypeDepartmentCare Team (Latest Contact Info)Tjxxepkmisr40/15/2025 11:00 AM EDTOffice Visit [facility] Urology [address] [place] [phone] Odette Duarte, SUPERVISOR TOY ASSEMBLY [address] [place] [address] Urinary retention (Primary Dx); End stage renal disease (CMS/HCC) Social History Tobacco UseTypesPacks/DayYears UsedDateSmoking Tobacco: QvyjdvIfjlentlju6901 - 1974Passive Smoke Exposure: PastSmokeless Tobacco: NeverAlcohol UseStandard Drinks/WeekCommentsYes0 (1 standard drink = 0.6 oz pure alcohol)[facility] UtilitiesAnswerDate RecordedIn the past 12 months has the [employer], gas, oil, or water [employer] threatened to shut off services in your [...] times a week04/05/2025How often do you attend catholic or jehovah's witness services?Never04/05/2025Do you belong to any clubs or organizations such as catholic groups, unions, fraHappyshop or athletic groups, or school groups?No04/05/2025How often do you attend meetings of the clubs or organizations you belong to?Never04/05/2025re you , , , , never , or living with a partner?Zytmrpbdq68/04/2025UDIT-C AnswerDate RecordedQ1: How often do you have [...] heating?Not very hard05/11/2025 PHQ-2AnswerDate RecordedPatient Health Questionnaire-2 Mxrkk233Finshriners [facility] for [facility] [place] of Occupational Health - Occupational Stress QuestionnaireAnswerDate RecordedDo you feel stress - tense, restless, nervous, or anxious, or unable to sleep at night because yourmind is troubled all the time - these days?Only a xjpfza8204/05/2025TransportationAnswerDate RecordedIn the past 12 months, has lack [...] 05/11/2025Sex and Gender InformationValueDate RecordedSex Assigned at Birth[facility] 09/21/2024 6:43 AM ESTLegal DtjByxq8201/29/2022 12:45 AM EDTGender IdentityMale 09/21/2024 7:43 AM ESTSexual OrientationHeterosexual or Rwvuvaer03/20/2025 7:43 AM ESTdocumented as of this encounter Functional Status * BPAnswerDate of CfpygxwnemQlxtrh706/7110/15/2025 9:07 AM Niurka Huggins MA * PulseAnswerDate of LpqcmkouuqCbpqlh5364/15/2025 9:07 AM Niurka Huggins MA * Fall RiskQuestionAnswerDate of AssessmentH[facility] about fallin 05/16/2025 9:07 AM Niurka Huggins MAOne or more falls in the last year:No 05/16/2025 9:07 AM Niurka Huggins MAFeels unsteady when walkin 9:07 AM Niurka Huggins MA * BPAnswerDate of DdzcykirakRopcdx397/ 9:07 AM Niurka Huggins MA * TempAnswerDate of QshhbrbpazTnpczz82.91 9:07 AM Niurka Huggins MA * PulseAnswerDate of HsbkhwfodgJnxvyo9324/15/2025 9:07 AM Niurka Huggins MA * RespAnswerDate of UakmhzhqmkHtzfbk0035/15/2025 9:07 AM Niurka Huggins MA * WbC6BslvgoAuiv of QtqjfmvmyeKytrqd7756/15/2025 9:07 AM Niurka Huggins MA * Over the past 2 weeks, how often have you been bothered by any of the following problems?QuestionAnswerDate of AssessmentAuthorThoughts that you would be better off or hurting yourself in some wayNot at all05/16/2025 9:07 AM Niurka Huggins MAPatient Health Questionnaire-9 Kngvk673 9:07 AM Niurka Huggins MATrouble falling or [...] 9:07 AM Niurka Huggins MAPatient Health Questionnaire-2 Zzjth302 9:07 AM Niurka Huggins MA documented as of this encounter Progress Notes * Odette Duarte CNP - 05/16/2025 11:00 AM EDT Voiding Trial Procedure: Patient was placed in supine position. 350 mL of sterile water was instilled until patient felt a urge to void. Retention balloon was deflated. 16 Fr catheter was removed intact. Patient was able to void 125 mL of clear urine with out any small tissue fragments. Patient tolerated procedure adequately. PVR [address] Rayne flores PVR 100- 150 ml Valderrama catheter reinserted Indwelling urinary catheterization/catheter placement Procedure: Patient was placed in supine position. Patient was prepped in normal sterile fashion. Size 16 Coud?? catheter was placed, with spontaneous return of urine. Retention balloon was inflated with 10 mL sterile water. Patient tolerated procedure adequately without discomfort . Reviewed catheter care instructions. Supplies provided for leg drainage bag and overnight drainage bag. 1) urinary retention - continue on flomax and proscar - follow up 2 weeks transplant MD, possible repeat TOV Odette Duarte CNP Urology [facility] documented in this encounter Plan of Treatment DateTypeDepartmentCare Team (Latest Contact Info)Gaarrmizgiq79/28/2025 8:00 AM EDTFollow-Up [facility] Transplant [address] [place] [address] [place] [address] 05/29/2025 2:00 PM EDTAppointment [facility] US IMAGING [address] [place] [phone] 06/11/2025 9:00 AM ESTFollow-[facility] Transplant [address] [place] [phone] [place] [phone] 06/19/2025 10:30 AM ESTll-[facility] Card[facility] [address] [place] [phone] Izaiah Singh, SUPERVISOR TOY ASSEMBLY [address] [place], [place] [id number] 06/25/2025 11:00 AM ESTFollRenown Urgent [facility] Neurology [address] [place] [address] [place] [address] Sera Silverio, [place] [address] documented as of this encounter Visit Diagnoses Diagnosis Urinary retention- Primary Unspecified retention of urine End stage renal disease (CMS/HCC) End stage renal disease documented in this encounter Care Teams Team MemberRelationshipSpecialtyStart DateEnd Date Abebe Stewart MD [address] [place] [address], [address] [place] [address] PCP - GeneralInternal Medicine09/21/24 [place] [address] Consulting PhysicianUrology04/07/25documented as of this encounter
--- OUTSIDE RECORDS SUMMARY | 2025-05-24 13:00 | XMS_ITS | Encounter Summary ---
Author Organization [facility] Address [address] [place] [address] Care Team Providers Care Asset Protection Professional Name Role Phone Abebe Stewart MD Primary Care Provider [phone] Abebe Tan MD Unavailable Encounter Details DateTypeDepartmentCare Team (Latest Contact Info)Qjtqnieebfv17/23/2025 1:00 PM EDTConsult [facility] Transplant [address] [place] [phone] Arrived Social History Tobacco UseTypesPacks/DayYears UsedDateSmoking Tobacco: ZlczhoMelnxrmdpo8468 - 1974Passive Smoke Exposure: PastSmokeless Tobacco: NeverAlcohol UseStandard Drinks/WeekCommentsYes0 (1 standard drink = 0.6 oz pure alcohol)[facility] UtilitiesAnswerDate RecordedIn the past 12 months has the [employer], gas, oil, or water [employer] threatened to shut off services in your [...] times a week04/05/2025How often do you attend rastafarian or confucianist services?Never04/05/2025Do you belong to any clubs or organizations such as rastafarian groups, unions, fraternal or athletic groups, or school groups?No04/05/2025How often do you attend meetings of the clubs or organizations you belong to?Never04/05/2025re you , , , , never , or living with a partner?Lsrauibyl67/04/2025UDIT-C AnswerDate RecordedQ1: How often do you have [...] heating?Not very hard05/11/2025 PHQ-2AnswerDate RecordedPatient Health Questionnaire-2 Frjal121[facility] [place] of Occupational Health - Occupational Stress QuestionnaireAnswerDate RecordedDo you feel stress - tense, restless, nervous, or anxious, or unable to sleep at night because yourmind is troubled all the time - these days?Only a blccqc1804/05/2025TransportationAnswerDate RecordedIn the past 12 months, has lack [...] were you homeless or living in a snf (including now)?No05/11/2025Hunger Vital SignAnswerDate Recorded Within the past 12 months, you worried that your food would run out before you got the money to buymore.Never true05/11/2025Within the past 12 months, the food you bought just didn't last and you didn't have money to get more.Never true 05/11/2025Sex and Gender InformationValueDate RecordedSex Assigned at BirthMale 09/21/2024 6:43 AM ESTLegal WtrHpne9101/29/2022 12:45 AM EDTGender IdentityMale 09/21/2024 7:43 AM ESTSexual OrientationHeterosexual or Baocnvfq40/20/2025 7:43 AM ESTdocumented as of this encounter Progress Notes * Zahra Rhoades RN - 05/24/2025 1:00 PM EDT Pt here for rashid catheter to be flushed after pt reported urine leaking around catheter. Upon examination, no leaking was noted, present in rashid bag pale yellow slightly cloudy urine . Flushed cfjl40ru sterile water, flushed with ease, no leaking was noted at that time. Pt tolerated well, deniedany pain. Pt was then taken down to registration for midline placement. Pt will receive 1st dose ofCefepime 2 gm IV in the [facility] after midline placement. documented in this encounter Plan of Treatment DateTypeDepartmentCare Team (Latest Contact Info)Gbtoysopwag33/28/2025 8:00 AM EDTFollow-Up [facility] Transplant [address] [place] [address] Abebe Tan MD [address] [place] [address] 05/29/2025 2:00 PM EDTAppointment [facility] US IMAGING [address] [place] [phone] 06/11/2025 9:00 AM ESTFollow-Up [facility] Transplant [address] [place] [phone] Jayjay Robin MD [address] [place] [address] 06/19/2025 10:30 AM ESTFoll-[facility] [address] [place] [phone] Izaiah Singh, DIRECTOR OF HOSPITALITY [facility] [place], [place] [phone] 06/25/2025 11:00 AM ESTFollow-[facility] Neurology [address] [place] [address] [place] [address] Sera Silverio, DIRECTOR OF HOSPITALITY [address] [place] [phone] documented as of this encounter Visit Diagnoses Not on filedocumented in this encounter Care Teams Team MemberRelationshipSpecialtyStart DateEnd Date Abebe Stewart MD [address] [place] [address], [place] [address] PCP - GeneralInternal Medicine09/21/24 Abebe Tan MD [place] [address] Consulting PhysicianUrology04/07/25documented as of this encounter
--- OUTSIDE RECORDS SUMMARY | 2025-05-24 13:48 | XMS_ITS | Encounter Summary ---
Author Organization [facility] Address [address] [place] [address] Care Team Providers Care Outside Solar Sales Consultant Name Role Phone Abebe Stewart MD Primary Care Provider Abebe Tan MD Unavailable Encounter Details DateTypeDepartmentCare Team (Latest Contact Info)Eurktcgwoda83/23/2025 1:48 PM EDT - 05/24/2025 1:55 PM EDTHospital Encounter [facility] PICC Team [address] [place] [phone] Arrived Discharge Disposition: Home or Self Care () Social History Tobacco UseTypesPacks/DayYears UsedDateSmoking Tobacco: YcdpfeCgvoaoguhm5962 - 1974Passive Smoke Exposure: PastSmokeless Tobacco: NeverAlcohol UseStandard Drinks/WeekCommentsYes0 (1 standard drink = 0.6 oz pure alcohol)[facility] UtilitiesAnswerDate RecordedIn the past 12 months has the [employer], gas, oil, or water [employer] threatened to shut off services in your [...] week04/05/2025How often do you attend orthodoxy or temple services?Never04/05/2025Do you belong to any clubs or organizations such as orthodoxy groups, unions, fraternal or athletic groups, or school groups?No04/05/2025How often do you attend meetings of the clubs or organizations you belong to?Never04/05/2025re you , , , , never , or living with a partner?Fcctiybcl01/04/2025UDIT-C AnswerDate RecordedQ1: How often do you have [...] heating?Not very hard05/11/2025 PHQ-2AnswerDate RecordedPatient Health Questionnaire-2 Cmwca248[facility] [place] of Occupational Health - Occupational Stress QuestionnaireAnswerDate RecordedDo you feel stress - tense, restless, nervous, or anxious, or unable to sleep at night because yourmind is troubled all the time - these days?Only a eitvqo4104/05/2025TransportationAnswerDate RecordedIn the past 12 months, has lack [...] you homeless or living in a senior care (including now)?No05/11/2025Hunger Vital SignAnswerDate Recorded Within the past 12 months, you worried that your food would run out before you got the money to buymore.Never true05/11/2025Within the past 12 months, the food you bought just didn't last and you didn't have money to get more.Never true 05/11/2025Sex and Gender InformationValueDate RecordedSex Assigned at BirthMale 09/21/2024 6:43 AM ESTLegal ExkArtk4701/29/2022 12:45 AM EDTGender IdentityMale 09/21/2024 7:43 AM ESTSexual OrientationHeterosexual or Wgmeqhlj86/20/2025 7:43 AM ESTdocumented as of this encounter Medications at Time of Discharge MedicationSigDispense QuantityRefillsLast FilledStart DateEnd Date aspirin 81 mg EC tablet Indications:Ischemic stroke diagnosed during current admission ([facility])Take 1 tablet (81 mg) by [...] mg with breakfast and with evening meal.05/23/2024 cefepime (Maxipime) IVPB Indications:Urinary tract infection without hematuria, site unspecifiedInfuse 100 mL (2 g) into a venous catheter every 12 (twelve) hours for 7 days. 1400 mL famotidine (Pepcid) 20 mg tablet Indications:Gastroesophageal reflux [...] by mouth three times daily. 270 capsule mycophenolate (Myfortic) 180 mg EC tablet Indications:ImmunosuppressionTake 2 tablets (360 mg) by mouth two times daily. 05/16/2025 NIFEdipine XL (Procardia XL) 30 mg 24 [...] if needed each day (constipation). 30 packet predniSONE (Deltasone) 10 mg tablet Indications:ImmunosuppressionTake 1 tablet (10 mg) by mouth in the morning. 30 tablet sod phos di, mono-K phos mono (K [...] Script total 8.5 mg daily 30 tablet tamsulosin (Flomax) 0.4 mg 24 hr capsule Indications:Urinary retentionTake 2 capsules (0.8 mg) by mouth in the morning. 60 capsule valGANciclovir (Valcyte) 450 mg tablet Indications:Immunosuppressive management encounter following kidney transplant Take 1 tablet (450 mg) by mouth in the morning. As directed. 30 tablet documented as of this encounter Plan of Treatment DateTypeDepartmentCare Team (Latest Contact Info)Eevcupugwwv56/28/2025 8:00 AM EDTFollow-Up [facility] Transplant [address] [place] [phone] Abebe Tan MD [address] [place] [phone] 05/29/2025 2:00 PM EDTAppointment [facility] US IMAGING [address] [place] [phone] 06/11/2025 9:00 AM ESTFollow-Up [facility] Transplant [address] [place] [phone] Jayjay Robin MD [address] [place] [phone] 06/19/2025 10:30 AM ESTFollow-Up [facility] Cardiology Clinic [address] [place] [phone] Izaiah Singh, ESPERANZA [address] [place], [place] [phone] 06/25/2025 11:00 AM ESTFollow-Up [facility] Neurology [address] [place] [address] [place] [phone] Sera Silverio, ESPERANZA [address] [place] [address] documented as of this encounter Visit Diagnoses Not on filedocumented in this encounter Care Teams Team MemberRelationshipSpecialtyStart DateEnd Date Abebe Stewart MD [address] [place] [address], [address] [place] [address] PCP - GeneralInternal Medicine09/21/24 Abebe Tan MD [address] [place] [address] Consulting PhysicianUrology04/07/25documented as of this encounter
--- OUTSIDE RECORDS SUMMARY | 2025-05-24 13:56 | XMS_ITS | Encounter Summary ---
Author Organization [facility] Address [address] [place] [address] Care Team Providers Care Wood Coater Name Role Phone Abebe Stewart MD Primary Care Provider Abebe Tan MD Unavailable Reason for Visit * ReasonCommentsSupportive Care * Episode Based Medications (Routine) - ClosedSpecialtyDiagnoses / Procedures Referred By ContactReferred To Contact Diagnoses Acute cystitis without hematuria Jayjay Robin MD [address] [place] [address] Phone: tel: fax: Jayjay Robin MD [address] [place] [address] Phone: tel: fax: Referral IDStatusReasonStart DateExpiration DateVisits RequestedVisits [id number] Encounter Details DateTypeDepartmentCare Team (Latest Contact Info)Gcroqwlhwiy98/23/2025 1:56 PM EDT - 05/24/2025 11:59 PM EDTHospital Encounter [facility] 2A Infusion [address] [place] [address] Acute cystitis without hematuria (Primary Dx); Encounter for aftercare following kidney transplant; Transplanted kidney; Encounter for long-term (current) use of medications Discharge Disposition: Home or Self Care () Social History Tobacco UseTypesPacks/DayYears UsedDateSmoking Tobacco: LnevezYstyfgmkxy0659 - 1974Passive Smoke Exposure: PastSmokeless Tobacco: NeverAlcohol UseStandard Drinks/WeekCommentsYes0 (1 standard drink = 0.6 oz pure alcohol)[facility] UtilitiesAnswerDate RecordedIn the past 12 months has the electric, gas, oil, or water company threatened [...] times a week04/05/2025How often do you attend mosque or gnosticist services?Never04/05/2025Do you belong to any clubs or organizations such as mosque groups, unions, fraternal or athletic groups, or school groups?No04/05/2025How often do you attend meetings of the clubs or organizations you belong to?Never04/05/2025re you , , , , never , or living with a partner?Wmwsrkyou75/04/2025UDIT-C AnswerDate RecordedQ1: How often do you have [...] heating?Not very hard05/11/2025 PHQ-2AnswerDate RecordedPatient Health Questionnaire-2 Djxte688Finjordan [facility] [place] of Occupational Health - Occupational Stress QuestionnaireAnswerDate RecordedDo you feel stress - tense, restless, nervous, or anxious, or unable to sleep at night because yourmind is troubled all the time - these days?Only a fulynt7404/05/2025TransportationAnswerDate RecordedIn the past 12 months, has lack [...] were you homeless or living in a skilled nursing (including now)?No05/11/2025Hunger Vital SignAnswerDate Recorded Within the past 12 months, you worried that your food would run out before you got the money to buymore.Never true05/11/2025Within the past 12 months, the food you bought just didn't last and you didn't have money to get more.Never true 05/11/2025Sex and Gender InformationValueDate RecordedSex Assigned at BirthMale 09/21/2024 6:43 AM ESTLegal GltNyek5001/29/2022 12:45 AM EDTGender IdentityMale 09/21/2024 7:43 AM ESTSexual OrientationHeterosexual or Gsrlvyec21/20/2025 7:43 AM ESTdocumented as of this encounter Medications at Time of Discharge MedicationSigDispense QuantityRefillsLast FilledStart DateEnd Date aspirin 81 mg EC tablet Indications:Ischemic stroke diagnosed during current admission ([facility])Take 1 tablet (81 mg) by mouth in the morning. 30 tablet 5 bumetanide (Bumex) 1 mg tablet Indications:Encounter for [...] Plan of Treatment DateTypeDepartmentCare Team (Latest Contact Info)Guhyclzepow55/28/2025 8:00 AM EDTFollow-Up [facility] Transplant [address] [place] [address] Abebe Tan MD [address] [place] [address] 05/29/2025 2:00 PM EDTAppointment [facility] US IMAGING [address] [place] [address] 06/11/2025 9:00 AM ESTFollow-Up [facility] Transplant [address] [place] [address] Jayjay Robin MD [address] [address] 06/19/2025 10:30 AM ESTFollow-Up [facility] Card[facility] Clinic [address] [place] [phone] Izaiah Singh, S IRON WORKER [address] [place], [place] [id number] 06/25/2025 11:00 AM ESTFollow-Up [facility] Medical Pavilion Neurology [address] [place] [address] [place] [address] Sera Silverio, ESPERANZA [address] [facility] [place] [address] documented as of this encounter Procedures Procedure NamePriorityDate/TimeAssociated DiagnosisCommentsCBC WITH AUTO FIDDXMDUQVRKLeicavw04/23/2025 3:41 PM EDT Encounter for aftercare following kidney transplant Transplanted kidney Encounter for long-term (current) use of medications CBC AND CTIABJSFINOLThezlkx26/23/2025 3:41 PM EDT Encounter for aftercare following kidney transplant Transplanted kidney Encounter for long-term (current) use of medications COMPREHENSIVE METABOLIC MJKXMXdbzyoh05/23/2025 3:41 PM EDT Encounter for aftercare following kidney transplant Transplanted kidney Encounter for long-term (current) use of medications documented in this encounter Results * (ABNORMAL) CBC auto differential (05/24/2025 3:41 PM EDT)ComponentValueRef RangeTest MethodAnalysis TimePerformed AtPathologist SignatureAuto WBC14.51(H) 4.00 - 10.60 10*3/uL05/24/2025 4:11 PM [facility] ([facility])RBC3.24(L) 4.20 - 5.70 10*6/uL05/24/2025 4:11 PM [facility] ([facility])Hemoglobin 10.8(L)13.0 - 17.0 g/dL05/24/2025 4:11 PM [facility] ([facility]) Qbedoslpks35.4(L)39.0 - 50.0 %05/24/2025 4:11 PM [facility] ([facility]) YAV285.0(H)82.0 - 98.0 fL05/24/2025 4:11 PM [facility] ([facility])MCH 33.3(H)27.0 - 33.0 pg05/24/2025 4:11 PM [facility] ([facility])MCHC33.3 32.0 - 35.0 g/dL05/24/2025 4:11 PM [facility] ([facility])RDW16.0(H)11.5 - 15.0 %05/24/2025 4:11 PM [facility] ([facility])Neutrophils %92.7(H) 40.0 - 72.0 %05/24/2025 4:11 PM [facility] ([facility])Lymphocytes %2.9 (L)20.0 - 45.0 %05/24/2025 4:11 PM [facility] ([facility])Monocytes %3.2 (L)5.0 - 12.0 %05/24/2025 4:11 PM [facility] ([facility])Eosinophils % 0.10.0 - 6.0 %05/24/2025 4:11 [facility] ([facility])Basophils %0.1 0.0 - 1.0 %05/24/2025 4:11 PM [facility] ([facility])Neutrophils Zqaknvgy87.46(H)1.60 - 7.60 10*3/uL05/24/2025 4:11 PM [facility] ([facility])Lymphocytes Absolute0.42(L)1.20 - 4.00 10*3/uL05/24/2025 4:11 PM EDT [facility] ([facility])Monocytes Absolute0.460.10 - 1.00 10*3/uL05/24/2025 4:11 PM [facility] ([facility])Eosinophils Absolute0.010.00 - 0.50 10*3/uL05/24/2025 4:11 PM [facility] ([facility])Basophils Absolute0.02 0.00 - 0.20 10*3/uL05/24/2025 4:11 PM [facility] ([facility])Platelets [id number] - 400 10*3/uL05/24/2025 4:11 PM [facility] ([facility])nRBC %0.00 %05/24/2025 4:11 PM [facility] ([facility])Immature Granulocytes %1.0 0.0 - 1.0 %05/24/2025 4:11 PM [facility] ([facility])Immature Granulocytes Absolute0.140.00 - 0.20 10*3/uL05/24/2025 4:11 PM [facility] ([facility])Specimen (Source)Anatomical Location / Laterality Collection Method / VolumeCollection TimeReceived TimeBloodVenous blood specimen / UnknownArterial Line / Iwdhith9005/24/2025 3:41 PM EDT1 3:41 PM EDT Narrative Authorizing ProviderResult TypeResult StatusJojazmin GarciaPanola Medical Center BLOOD ORDERABLESFinal ResultPerforming OrganizationAddressCity/State/ZIP CodePhone Number [facility] ([facility]) [address] [place] [address] * (ABNORMAL) Comprehensive metabolic panel (05/24/2025 3:41 PM EDT)Component ValueRef RangeTest MethodAnalysis TimePerformed AtPathologist SignatureSodium [id number] - 145 mmol/L1 4:23 PM [facility] ([facility])Potassium 4.13.5 - 5.1 mmol/L1 4:23 PM [facility] ([facility])Lzzcdtqw646 98 - 107 mmol/L1 4:23 PM [facility] ([facility])HR84759 - 31 mmol/L1 4:23 PM [facility] ([facility])Anion Soi602 - 20 mmol/L 05/24/2025 4:23 [facility] ([facility])BUN53(H)7 - 25 mg/dL05/24/2025 4:23 PM [facility] ([facility])Creatinine2.54(H)0.70 - 1.30 mg/dL 05/24/2025 4:23 PM [facility] ([facility])BUN/Creatinine Ratio20.9 05/24/2025 4:23 PM [facility] ([facility])Sdeavgp326(H)70 - 100 mg/dL 05/24/2025 4:23 [facility] ([facility])Calcium7.6(L)8.6 - 10.3 mg/dL 05/24/2025 4:23 [facility] ([facility])HAR7590 - 39 U/L1 4:23 [facility] ([facility])ALT (SGPT)117 - 52 U/L1 4:23 [facility] ([facility])Alkaline Xvojiwxqphb2548 - 104 U/L1 4:23 [facility] ([facility])Total Protein5.3(L)6.0 - 8.3 g/dL05/24/2025 4:23 [facility] ([facility])Albumin3.1(L)3.5 - 5.7 g/dL05/24/2025 4:23 [facility] ([facility])Total Bilirubin0.50.3 - 1.0 mg/dL 05/24/2025 4:23 [facility] ([facility])eGFR26.5(L)>60.0 mL/min/1.73m* 4:23 PM [facility] ([facility])Comment:[facility]???s estimated glomerular filtration rate (eGFR) will [...] / VolumeCollection TimeReceived TimeBloodVenous blood specimen / UnknownArterial Line / Einsevr5305/24/2025 3:41 PM EDT1 3:41 PM EDT Narrative Authorizing ProviderResult TypeResult StatusJojazmin Briseno [facility] BLOOD ORDERABLESFinal ResultPerforming OrganizationAddressCity/State/ZIP CodePhone Number [facility] ([facility]) [address] [place] [address] documented in this encounter Visit Diagnoses Diagnosis Acute cystitis without hematuria- Primary Encounter for aftercare following kidney transplant Transplanted kidney Kidney replaced by transplant Encounter for long-term (current) use of medications Encounter for long-term (current) use of other medications documented in this encounter Administered Medications Medication OrderMAR ActionAction DateDoseRateSite cefepime (Maxipime) 2 g in sodium chloride 0.9 % 50 mL IVPB 2 g, intravenous, Once, On Lara 05/24/25 at 1400, For 1 dose, Mini-Bag Plus bag, Suspected Indication (Select all that apply): Urinary Tract Infection, Type of Urinary Tract Infection: Complicated, Type of Therapy: Definitive, Based on Culture Indications:Acute cystitis without hematuriaNew Bag05/24/2025 3:13 PM EDT2 g documented in this encounter Care Teams Team MemberRelationshipSpecialtyStart DateEnd Abebe Stewart MD [address] [place] [address], [address] [place] [address] PCP - GeneralInternal Medicine09/21/24 Abebe Tan MD [address] [place] [address] Consulting PhysicianUrology04/07/25documented as of this encounter
--- OUTSIDE RECORDS SUMMARY | 2025-05-25 10:45 | XMS_ITS | Encounter Summary ---
Author Organization [facility] Center[facility] [employer] [facility] tem Address [id number] [address] [place] [address] Care Team Providers Care Coat Tailor Name Role Phone Abebe Stewart MD Primary Care Provider Reason for Visit * ReasonCommentsH[facility] Encounter Details DateTypeDepartmentCare Team (Latest Contact Info)Atxnkxmdctu74/24/2025 10:45 AM EDTOffice Visit [facility] Internal Medicine/Pediatrics [address] [place] [address] [address] [place] [address] Abebe Stewart MD [address] [place] [address], [address] [place], [place] [id number] Status post kidney transplant (Primary Dx); Urinary retention Social History Tobacco UseTypesPacks/DayYears UsedDateSmoking Tobacco: NeverSmokeless Tobacco: NeverAlcohol UseStandard Drinks/WeekCommentsNot Currently0 (1 standard drink = 0.6 oz pure alcohol)AUDIT-CAnswerDate RecordedQ1: How often do you have a drink containing alcohol?Never09/12/2020Q2: How many drinks containing alcohol do you have on a typical day when you are drinking?1 or Q3: How often do you have six or more drinks on one occasion?Never09/12/2020HQ-2AnswerDate Recorded Total Pwjcg259/22/2024ChildcareAnswerDate BhvhysqxSrqpyxaifAbivwzc30/12/2019 EmploymentAnswerDate GzsgoqduOjjrfezghyPdmgapq05/12/2019Hunger ScreeningAnswer Date RecordedWithin the past 12 months we worried whether our food would run out before we got money to buy more.Never True05/23/2024Within the past 12 months the food we bought just didn't last and we didn't have money to get more.Never True05/23/2024urpose - LifeAnswerDate RecordedPurpose and direction in life Tmeubth5609/12/2020ex and Gender InformationValueDate RecordedSex Assigned at BirthNot on fileLegal NlaCxqq1903/07/2015 11:39 AM EDTGender IdentityNot on file Sexual OrientationNot on filedocumented as of this encounter Last Filed Vital Signs Vital SignReadingTime TakenCommentsBlood Usjkvlel461/6605/25/2025 11:02 AM EDT Dcqma044105/25/2025 11:02 AM EDTTemperature--Respiratory Rate--Oxygen Saturation-- Inhaled Oxygen Concentration--Kbffgb79.8 kg (173 lb 12.8 oz)05/25/2025 11:02 AM NOVSzgsxu665.4 cm (6' 0.99 )05/25/2025 11:02 AM EDTBody Mass Index22.94 05/25/2025 11:02 AM EDTdocumented in this encounter Progress Notes * Abebe Stewart MD - 05/25/2025 10:45 AM EDT Subjective Patient ID: Alberto Waller is a 69 y.o. male. Comes in for hospital follow up. He had a kidney transplant. The kidney has functioned well. His course was then complicated by urinary retention and intra abdominal infection. He subsequently had TURP. He has a rashid catheter in place and has failed recent voiding trials. He has an IV catheter in place for antibiotic therapy. At some point in the course he had a small stroke. He is weak, gettingaround with a cane. The following portions of the patient's history were reviewed and updated as appropriate: allergies, current medications, past medical history, past social history, past surgical history, and problemlist. Review of Systems Objective Physical Exam Constitutional: Comments: He is thin but does not appear acutely ill. BP normal. Cardiovascular: Rate and Rhythm: Normal rate and regular rhythm. Pulmonary: Effort: Pulmonary effort is normal. Breath sounds: Normal breath sounds. Assessment/Plan His care is being directed by the transplant team. Medication reviewed. It is noted that his creatinine is up some on labs done yesterday. He has not yet received any instruction for the transplant team regarding that. He can be in touch with me as needs arise. Diagnoses and all orders for this visit: Status post kidney transplant Urinary retention documented in this encounter Plan of Treatment Not on file documented as of this encounter Goals GoalPatient Goal TypeAssociated ProblemsRecent ProgressPatient-Stated?Author Home Katharina Washington LSW Note: Evaluation of progress towards goal: Safe dc transition from hospital to home pending clinical course. documented as of this encounter Visit Diagnoses Diagnosis Status post kidney transplant- Primary Urinary retention Unspecified retention of urine documented in this encounter Additional Health Concerns AssessmentNoted TimePHQ-9 Depression Total Score: 10:12 AM EDT documented as of this encounter Care Teams Team MemberRelationshipSpecialtyStart DateEnd Date Abebe Stewart MD [address] [place] [address], [address] [place] [address] PCP - AimbobzGofhwphdrd01/20/17documented as of this encounter
[2025-05-26] VITALS (11 sets, daily range): BP systolic 156–165; BP diastolic 91; PULSE 68–76; TEMP 36.7–36.8; O2SAT 95–98; BMI 23.1
--- OUTSIDE RECORDS SUMMARY | 2025-05-26 13:55 | XMS_ITS | Encounter Summary ---
Author Organization [employer] [facility] tem Address [id number] [address] [place] [address] Care Team Providers Care Teacher Of The Sight Impaired Name Role Phone Abebe Stewart MD Primary Care Provider [phone] Encounter Details DateTypeDepartmentCare Team (Latest Contact Info)Fyoudkmdisr82/24/2025Travel Social History Tobacco UseTypesPacks/DayYears UsedDateSmoking Tobacco: NeverSmokeless Tobacco: NeverAlcohol UseStandard Drinks/WeekCommentsNot Currently0 (1 standard drink = 0.6 oz pure alcohol)AUDIT-CAnswerDate RecordedQ1: How often do you have a drink containing alcohol?Never09/12/2020Q2: How many drinks containing alcohol do you have on a typical day when you are drinking?1 or Q3: How often do you have six or more drinks on one occasion?Never09/12/2020HQ-2AnswerDate Recorded Total Qdyfq519/22/2024ChildcareAnswerDate GnejhpqbAvltjawogDubhzbz59/12/2019 EmploymentAnswerDate IhjyevujPypahnfhzgIsysknn92/12/2019Hunger ScreeningAnswer Date RecordedWithin the past 12 months we worried whether our food would run out before we got money to buy more.Never True05/23/2024Within the past 12 months the food we bought just didn't last and we didn't have money to get more.Never True05/23/2024urpose - LifeAnswerDate RecordedPurpose and direction in life Tttctby5809/12/2020ex and Gender InformationValueDate RecordedSex Assigned at BirthNot on fileLegal PpaTobx0503/07/2015 11:39 AM EDTGender IdentityNot on file Sexual OrientationNot on filedocumented as of this encounter Plan of Treatment Not on file documented as of this encounter Goals GoalPatient Goal TypeAssociated ProblemsRecent ProgressPatient-Stated?Author Home Katharina Washington LSW Note: Evaluation of progress towards goal: Safe dc transition from hospital to home pending clinical course. documented as of this encounter Visit Diagnoses Not on filedocumented in this encounter Additional Health Concerns AssessmentNoted TimePHQ-9 Depression Total Score: 10:12 AM EDT documented as of this encounter Care Teams Team MemberRelationshipSpecialtyStart DateEnd Date Abebe Stewart MD [address] [place] [address], [address] [place] [address] PCP - GtmsxmaHrfkqkuzhj77/20/17documented as of this encounter
--- OUTSIDE RECORDS SUMMARY | 2025-05-26 13:55 | XMS_ITS | Encounter Summary ---
Author Organization [facility] Address [address] [place] [address] Care Team Providers Care Wire Brusher Name Role Phone Abebe Stewart MD Primary Care Provider [phone] Abebe Tan MD Unavailable Encounter Details DateTypeDepartmentCare Team (Latest Contact Info)Ffwigaeixpb06/23/2025Orders Only [facility] Social Work [address] [place] [address] Worker, Social, [place] [address] [place] [address] Social History Tobacco UseTypesPacks/DayYears UsedDateSmoking Tobacco: XwdsghZcjuuuorfq6409 - 1974Passive Smoke Exposure: PastSmokeless Tobacco: NeverAlcohol UseStandard Drinks/WeekCommentsYes0 (1 standard drink = 0.6 oz pure alcohol)[facility] UtilitiesAnswerDate RecordedIn the past 12 months has the [employer], gas, oil, or water [employer] threatened to shut off services in your [...] times a week04/05/2025How often do you attend zoroastrian or yazdanism services?Never04/05/2025Do you belong to any clubs or organizations such as zoroastrian groups, unions, fraMamaherb or athletic groups, or school groups?No04/05/2025How often do you attend meetings of the clubs or organizations you belong to?Never04/05/2025re you , , , , never , or living with a partner?Gwepftbhl69/04/2025UDIT-C AnswerDate RecordedQ1: How often do you have [...] heating?Not very hard05/11/2025 PHQ-2AnswerDate RecordedPatient Health Questionnaire-2 Dyecp506Finbear river valley hospital [place] of Occupational Health - Occupational Stress QuestionnaireAnswerDate RecordedDo you feel stress - tense, restless, nervous, or anxious, or unable to sleep at night because yourmind is troubled all the time - these days?Only a pcxuty3704/05/2025TransportationAnswerDate RecordedIn the past 12 months, has lack [...] homeless or living in a mcfp (including now)?No05/11/2025Hunger Vital SignAnswerDate Recorded Within the past 12 months, you worried that your food would run out before you got the money to buymore.Never true05/11/2025Within the past 12 months, the food you bought just didn't last and you didn't have money to get more.Never true 05/11/2025Sex and Gender InformationValueDate RecordedSex Assigned at BirthMale 09/21/2024 6:43 AM ESTLegal KgjCfuv6401/29/2022 12:45 AM EDTGender IdentityMale 09/21/2024 7:43 AM ESTSexual OrientationHeterosexual or Guhpwnai98/20/2025 7:43 AM ESTdocumented as of this encounter Plan of Treatment DateTypeDepartmentCare Team (Latest Contact Info)Znebtttoggu92/28/2025 8:00 AM EDTFollow-Up [facility] Transplant [address] [place] [address] [place] [address] 05/29/2025 2:00 PM EDTAppointment [facility] [place] [place] [address] 06/11/2025 9:00 AM ESTFollow-Up [facility] [place] [address] [place] [address] 06/19/2025 10:30 AM ESTFollow-Up [facility] [place] [address] Izaiah Singh, ASSEMBLER MECHANICAL ORDNANCE [address] [place], [place] [address] 06/25/2025 11:00 AM ESTFollow-[facility] Neurology [address] [place] [address] [place] [address] Sera Silverio, ESPERANZA [address] [place] [address] documented as of this encounter Visit Diagnoses Not on filedocumented in this encounter Care Teams Team MemberRelationshipSpecialtyStart DateEnd Date Abebe Stewart MD [address] [place] [address], [address] [place] [address] PCP - GeneralInternal Medicine09/21/24 Abebe Tan MD [address] [place] [address] Consulting PhysicianUrology04/07/25documented as of this encounter
--- OUTSIDE RECORDS SUMMARY | 2025-05-26 13:55 | XMS_ITS | Clinical Summary ---
Author Organization [employer] tem Address [id number] [address] [place] [address] Care Team Providers Care Patch Sander Name Role Phone Abebe Stewart MD Primary Care Provider [phone] Allergies Active AllergyReactionsCriticalityNoted FoluHomjknsvZohhtiaguq50/22/2021 Leg edema Shellfish LbjboxfNbddxkqaPgwixj47/01/2021 Medications MedicationSigDispense QuantityRefillsLast FilledStart DateEnd DateStatus carvediloL (COREG) 25 mg tablet Take 1 tablet (25 mg total) by mouth in the morning and 1 tablet (25 mg total) in the evening. Takewith meals. 180 tablet 4Active hydrALAZINE (APRESOLINE) 50 mg tablet Take 1 tablet (50 mg total) by mouth in the morning and 1 tablet (50 mg total) before bedtime. 180 tablet 4Active Additional Information Patient taking differently: 100 mgoral3 times daily, Morning, Noon, Bedtime, Reported on 05/25/2025 aspirin 81 mg Take 1 tablet (81 mg total) by mouth in the morning./5Active bumetanide (BUMEX) 1 mg tablet Take 1 tablet (1 mg total) by mouth daily.5Active calcium carbonate (TUMS) 200 mg elemental (500 mg) chewable tablet Chew 3 tablets (600 mg total) and swallow in the morning and 3 tablets (600 mg total) before bedtime.5Active famotidine (PEPCID) 20 mg tablet Take 1 tablet (20 mg total) by mouth once daily at bedtime. TAKE 1 TABLET (20 MG) BY MOUTH AT HIBXIMI48/22/2025Active finasteride (PROSCAR) 5 mg tablet Take 1 tablet (5 mg total) by mouth in the morning.ctive magnesium glycinate 100 mg magnesium capsule Take 300 mg by mouth 3 (three) times a day.04/23/2025tive mycophenolate (MYFORTIC) 180 mg EC tablet Take 3 tablets (540 mg total) by mouth in the morning and 3 tablets (540 mg total) before bedtime.05/02/2025tive NIFEdipine XL (PROCARDIA XL) 30 mg 24 hr tablet Take 1 tablet (30 mg total) by mouth in the morning.04/23/2025tive nystatin (MYCOSTATIN) 100,000 unit/mL suspension Take 5 mL (500,000 Units total) by mouth in the morning and 5 mL (500,000 Units total) at noon and 5 mL (500,000 Units total) in the evening and 5 mL (500,000 Units total) before bedtime.04/13/2025tive pantoprazole (PROTONIX) 40 mg EC tablet Take 1 tablet (40 mg total) by mouth before breakfast. TAKE 1 TABLET (40 MG) BY MOUTH BEFORE BREAKFAST DO NOT CRUSH CHEW OR SPLIT04/23/2025tive predniSONE (DELTASONE) 10 mg tablet Take 2 tablets (20 mg total) by mouth in the morning.04/23/2025tive sod phos di, mono-K phos mono (K-PHOS NEUTRAL) 250 mg tablet Take 1 tablet by mouth in the morning and 1 tablet before bedtime.04/16/2025 Active sulfamethoxazole-trimethoprim (BACTRIM DS) 800-160 mg per tablet Take 1 tablet by mouth 3 (three) times a week. On Wednesday, Wednesday, and Wednesday04/13/2025tive tacrolimus ER (ENVARSUS XR) 4 mg 24 hr tablet Take 1 tablet (4 mg total) by mouth in the morning.04/13/2025tive valGANciclovir (VALCYTE) 450 mg tablet Take 1 tablet (450 mg total) by mouth in the morning.04/13/2025tive polyethylene glycol (GLYCOLAX) 17 gram/dose powder DISSOLVE ONE CAPFUL (17 GRAMS) IN 8 OUNCES OF JUICE OR WATER AND DRINK ONCE DAILY IN THE WZQECRA8404/04/2025tive tamsulosin (FLOMAX) 0.4 mg capsule Take 2 capsules (0.8 mg total) by mouth in the morning.5Active sodium bicarbonate 650 mg tablet Take 1 tablet (650 mg total) by mouth 3 (three) times a day. 270 tablet Discontinued methylPREDNISolone (MEDROL, MUMTAZ,) 4 mg tablet Indications:Achilles tendinitis of both lower extremitiesfollow package directions 21 tablet Discontinued tamsulosin (FLOMAX) 0.4 mg capsule Take 2 capsules (0.8 mg total) by mouth in the morning. Active Problems ProblemNoted DateDiagnosed DateCKD (chronic kidney disease) stage 5, GFR less than 15 ml/min05/23/2024Long term (current) use of dtktgzdctjfbuz93/14/2021 HypertensionH/O splenectomy Resolved Problems ProblemNoted DateDiagnosed DateResolved DateAcute deep vein thrombosis (DVT) of proximal vein of left lower kqsdnhbnf25VT (deep venous thrombosis)Stage 4 chronic kidney vnecgnp8205/23/2024 Encounters DateTypeDepartmentCare IcxhIyhsvwetodw08/24/2025 10:45 AM EDTOffice Visit [facility] [address] [facility] [address] [place] [address] Abebe Stewart MD Status post kidney transplant (Primary Dx); Urinary urlyubtzv09/24/8401Tzybop56/03/2025Telephone [facility] [address] [facility] [address] [place] [address] Kandi Ramirez RN Transition Of Care05/03/2025Telephone [facility] [address] [place] [address] Evita Ortiz RN 05/03/2025Telephone [facility] [address] [place] [address] Zhanna Gabriel RN 04/30/2025Orders Only [facility] [address] [place] [address] External, Scanning Provider 04/29/2025External Services Encounter [facility] Department of [facility] [address] [facility] [address] [place] [address] Quinten Schwartz MD 04/28/2025 8:50 AM EDTAncillary Procedure [facility] [address] [place] [phone] Pain04/13/2025Telephone [facility] [address] [place] [address] Penelope Cerda RN Transition Of Care04/13/2025Telephone [facility] [address] [place] [phone] Zhanna Gabriel, JUANA 04/06/2025Telephone [facility] [address] [facility] [address] [place] [address] Rosa Linn RN Transition Of Care04/05/2025Telephone [facility] [address] [facility] [address] [place] [address] Zhanna Gabriel, JUANA 04/03/2025Telephone N [facility] [address] [facility] [address] [place] [address] Sumi Root, JUANA 03/22/20257081Ffuusx58/04/2025 3:00 PM EDTOffice Visit [facility] [address] [place] [address] Abebe Stewart MD Achilles tendinitis of both lower extremities (Primary Dx); CKD (chronic kidney disease) stage 5, GFR less than 15 ml/min [place] 03/05/20259930Dbkvih44/30/2025 11:40 AM EDTOffice Visit [facility] [place] [phone] Shereen Stephens, INSTRUMENT STERILIZER-SMOKE CONTROL SUPERVISOR CKD (chronic kidney disease) stage 5, GFR less than 15 ml/min ([facility] (Primary Dx)02/28/2025Travelfrom Last 3 Months Immunizations ImmunizationAdministration DatesNext DueInfluenza, Injectable, quadrivalent (PF) 07/01/2018Pneumococcal Conjugate 13-Ixwbxz7608/27/2015Pneumococcal Polysaccharide 09/19/2010 Social History Tobacco UseTypesPacks/DayYears UsedDateSmoking Tobacco: NeverSmokeless Tobacco: Never Tobacco Cessation:Counseling Given: Not Answered Alcohol UseStandard Drinks/WeekCommentsNot Currently0 (1 standard drink = 0.6 oz pure alcohol)AUDIT-CAnswerDate RecordedQ1: How often do you have a drink containing alcohol?Never09/12/2020Q2: How many drinks containing alcohol do you have on a typical day when you are drinking?1 or Q3: How often do you have six or more drinks on one occasion?Never1PHQ-2AnswerDate Recorded Total Ohbif841/22/2024ChildcareAnswerDate PlbbgubhPfbplrlpuWewrmmy15/12/2019 EmploymentAnswerDate MvgprwqgQqtsqyuhcxRbjsyed77/12/2019Hunger ScreeningAnswer Date RecordedWithin the past 12 months we worried whether our food would run out before we got money to buy more.Never True05/23/2024Within the past 12 months the food we bought just didn't last and we didn't have money to get more.Never True4Purpose - LifeAnswerDate RecordedPurpose and direction in life Dfjngoa1909/12/2020ex and Gender InformationValueDate RecordedSex Assigned at BirthNot on fileLegal JudPpbz1403/07/2015 11:39 AM EDTGender IdentityNot on file Sexual OrientationNot on file Last Filed Vital Signs Vital SignReadingTime TakenCommentsBlood Ctkalzzj124/6610 11:02 AM EDT Qhrki812305/25/2025 11:02 AM JQSNzfqkrkuncm66.7 ??C (98 ??F)10/05/2022 8:00 AM EST Respiratory Eyst167302/28/2025 10:53 AM EDTOxygen Hqgenkofhj60%04/26/2023 8:06 AM EDTInhaled Oxygen Concentration--Aagvun52.8 kg (173 lb 12.8 oz)05/25/2025 11:02 AM GPFLlqbhc308.4 cm (6' 0.99 )05/25/2025 11:02 AM EDTBody Mass Index22.94 05/25/2025 11:02 AM EDT Plan of Treatment Health MaintenanceDue DateLast DoneCommentsMedicare Annual Wellness Visit 4Adult BMI Follow Up Plan1972Fall Risk Yduwrprlt03/29/2019 Influenza Niqyzsi899/12/2023, 07/15/2023, 07/01/2018Depression Rnocacuvj31/dult BMI Vzucjifiv70Tobacco Rqdbswzot32/2337Mteptqbfglf22/06/161894/12/2022, 10/05/2022, 08/22/2015DTaP,Tdap and Td Vaccines (2 - Td or Tdap)Zoster (Shingles) WkdgfeeNcwxmphpf26/23/2024, 07/15/2023OVID-19 VaccineCompleted 10/07/2024, 04/06/2024, 07/15/2023, Additional history exists Goals GoalPatient Goal TypeAssociated ProblemsRecent ProgressPatient-Stated?Author Katharina Torres LSW Note: Evaluation of progress towards goal: Safe dc transition from hospital to home pending clinical course. Medical Devices Not on file Procedures Procedure NamePriorityDate/TimeAssociated DiagnosisCommentsCT BRAIN WO CONT STROKE ALERTSTAT Rgzzxru6804/28/2025 8:50 AM EDT Pain XR CHEST 1 GBGgxgphp00/27/2025BASIC METABOLIC ILTUIYiuhrgr90/21/2025 3:28 PM EDT CKD (chronic kidney disease) stage 5, GFR less than 15 ml/min ([facility]) WTUXWFVLWNS59/06/2023 10:43 AM EST from Last 3 Months or Most Recently Relevant to Health Maintenance Results * CT brain without contrast stroke alert (04/28/2025 8:50 AM EDT)Specimen (Source)Anatomical Location / LateralityCollection Method / VolumeCollection TimeReceived Time Narrative Authorizing ProviderResult TypeResult StatusScanning Provider ExternalIMG CT ORDERABLESFinal Result * X-ray chest 1 view (04/28/2025)Anatomical RegionLateralityModalityBody, Chest N/AComputed RadiographySpecimen (Source)Anatomical Location / Laterality Collection Method / VolumeCollection TimeReceived Time04/28/2025 Narrative Authorizing ProviderResult TypeResult StatusScanning Provider ExternalIMG DIAGNOSTIC IMAGING ORDERABLESFinal Result * (ABNORMAL) Basic Metabolic Panel (03/22/2025 3:28 PM EDT)ComponentValueRef RangeTest MethodAnalysis TimePerformed AtPathologist OmitapmbqJJQWID227782 - 146 mmol/L03/22/2025 10:15 PM [facility] LABORATORYPOTASSIUM 4.53.5 - 5.0 mmol/L03/22/2025 10:15 PM [facility] KNXPKVOG94059 - 109 mmol/L03/22/2025 10:15 PM [facility] LABORATORYCARBON LPPYAXI14(L)22 - 32 mmol/L03/22/2025 10:15 PM [facility] LABORATORYANION MLP489 - 15 mmol/L03/22/2025 10:15 PM EDT [facility] LABORATORYBLOOD UREA KRZEJGOW91(H)5 - 27 mg/dL 03/22/2025 10:15 PM [facility] LABORATORYCREATININE6.97(H) 0.60 - 1.30 mg/dL03/22/2025 10:15 PM [facility] Comment:METHOD TRACEABLE TO IDMS YLXDZKCISNKQOPZ7657 - 99 mg/dL03/22/2025 10:15 PM [facility] LABORATORYCALCIUM8.58.5 - 10.5 mg/dL 03/22/2025 10:15 PM [facility] LABOR[facility]ORYEGFR Non-Race Dependent8(L)>=60 ml/min/1.73sq.m003/22/2025 10:15 PM [facility] LABORATORYComment: Reported eGFR is based on the CKD-EPI 2020 equation that does not use a race coefficient. EGFR not calculated due to patient's gender not being defined. Specimen (Source)Anatomical Location / LateralityCollection Method / Volume Collection TimeReceived TimeBloodVenous blood / UnknownVenipuncture / Unknown 03/22/2025 3:28 PM EDT03/22/2025 3:28 PM EDT Narrative Authorizing ProviderResult TypeResult StatusEren Garcia MDLAB BLOOD ORDERABLESFinal ResultPerforming OrganizationAddressCity/State/ZIP CodePhone Number [facility] [address] [place] [address], * Colonoscopy (10/05/2022 10:43 AM EST)Specimen (Source)Anatomical Location / LateralityCollection Method / VolumeCollection TimeReceived Time10/05/2022 10:43 AM EST Narrative PM C[facility] - 10/05/2022 11:08 AM EST [facility] Patient Name: Alberto Waller ?? Procedure Date No Time: 10/05/2022 ?? CSN : [id number] Date of : 1955 Admit Type: Outpatient Age: 67 Room: [facility] OR Gender: Male Note Status: Finalized Attending MD: Alberto Mensah , DO Procedure: ? Colonoscopy Indications: ? Rectal bleeding Providers: ? Alberto Mensah, DO Referring MD: ?Alberto Mensah, DO Medicines: ? Propofol per Anesthesia Complications: ? No immediate complications. Procedure: ? After I obtained informed consent, the scope was ? passed under direct vision. Throughout the procedure, ? the patient's blood pressure, pulse, and oxygen ? saturations were monitored continuously. The OLYMPUS ? -[id number] #[id number] ADULT COLONOSCOPE was introduced ? through the anus and advanced to the cecum, identified ? by appendiceal orifice and ileocecal valve. The ? colonoscopy was performed without difficulty. The ? patient tolerated the procedure well. The quality of ? the bowel preparation was good. Findings: ? The perianal and digital rectal examinations were normal. ? Multiple large-mouthed diverticula were found in the sigmoid colon and ? descending colon. ? Three sessile polyps were found in the recto-sigmoid colon and splenic ? flexure. The polyps were 2 to 5 mm in size. These polyps were removed ? with a hot snare. Resection and retrieval were complete. ? The exam was otherwise without abnormality on direct and retroflexion ? views. Estimated Blood Loss: ??Estimated blood loss was minimal. Impression: ?- Diverticulosis in the sigmoid colon and in the ? descending colon. ? - Three 2 to 5 mm polyps at the recto-sigmoid colon ? and at the splenic flexure, removed with a hot snare. ? Resected and retrieved. ? - The examination was otherwise normal on direct and ? retroflexion views. Recommendation: ?- Discharge patient to home. ? - Patient has a contact number available for ? emergencies. The signs and symptoms of potential ? delayed complications were discussed with the patient. ? Return to normal activities tomorrow. Written ? discharge instructions were provided to the patient. ? - High fiber diet for the rest of the patient's life. ? - Repeat colonoscopy in 5 years for surveillance based ? on pathology results. ? - Return to my office PRN. Procedure Code(s): ? --- Professional --- ? 65902, Colonoscopy, flexible; with removal of ? tumor(s), polyp(s), or other lesion(s) by snare ? technique Diagnosis Code(s): ? --- Professional --- ? D12.7, Benign neoplasm of rectosigmoid junction ? D12.3, Benign neoplasm of transverse colon (hepatic flexure or splenic ? flexure) ? K62.5, Hemorrhage of anus and rectum ? K57.30, Diverticulosis of large intestine without perforation or abscess ? without bleeding CPT copyright 2020 [employer]. All rights reserved. The codes documented in this report are preliminary and upon bracelet former review may be revised to meet current compliance requirements. DO Alberto Madrid DO 10/05/2022 11:08:22 AM Number of Addenda: 0 Note Initiated On: 10/05/2022 10:43 AM Procedure Note Alberto Mensah DO - 10/05/2022 [facility] Patient Name: Alberto Waller Procedure Date No Time: 10/05/2022 CSN : [id number] Date of : 1955 Admit Type: Outpatient Age: 67 Room: [place] [address] Gender: Male Note Status: Finalized Attending MD: Alberto Mensah DO Procedure: Colonoscopy Indications: Rectal bleeding Providers: Alberto Mensah DO Referring MD: Alberto Mensah DO Medicines: Propofol per Anesthesia Complications: No immediate complications. Procedure: After I obtained informed consent, the scope was passed under direct vision. Throughout theprocedure, the patient's blood pressure, pulse, and oxygen saturations were monitored continuously. TheMeetDoctorUN[facility] CF-[id number] #[id number] ADULT COLONOSCOPE was introduced through the anus [...] office PRN. Procedure Code(s): --- Professional --- 11620, Colonoscopy, flexible; with removal of tumor(s), polyp(s), or other lesion(s) by snare technique Diagnosis Code(s): --- Professional --- D12.7, Benign neoplasm of rectosigmoid junction D12.3, Benign neoplasm of transverse colon (hepatic flexure orsplenic flexure) K62.5, Hemorrhage of anus and rectum K57.30, Diverticulosis of large intestine without perforation orabscess without bleeding CPT copyright 2020 [employer]. All rights reserved. The codes documented in this report are preliminary and upon bracelet former reviewmay be revised to meet current compliance requirements. DO Alberto Madrid DO 10/05/2022 11:08:22 AM Number of Addenda: 0 Note Initiated On: 10/05/2022 10:43 AM Authorizing ProviderResult TypeResult StatusMicjohn VELAZQUEZ PROCEDURE ORDERABLESFinal ResultPerforming OrganizationAddressCity/State/ZIP CodePhone Number PM CARDIOVASCULAR from Last 3 Months or Most Recently Relevant to Health Maintenance Insurance * Guarantor: ChristinAlberto berger Javier TypeRelation to PatientDate of BirthPhone Billing AddressPersonal/IvmfugLyeh1955 [facility] [place] [address] MemberSubscriberPlan / Payer (Effective 2024-Present)Name:Alberto Waller Relation to Subscriber:SelfName:Alberto Waller Julian Payer ID:Not on file Type:Not on file Address: [place] [phone] * Guarantor: Alberto Waller TypeRelation to PatientDate of BirthPhone Billing AddressPersonal/LqpdlxPigu1955 [facility] [place] [address] MemberSubscriberPlan / Payer (Effective 2024-Present)Name:Alberto Waller Julian Relation to Subscriber:SelfName:Alberto Waller Payer ID:Not on file Type:Not on file Address: [place] [phone] Advance Directives * Full Code (Latest Code Status on File) Date ActivatedDate XawzxcypdydLdymueni17/1/2021 1:12 PM07/08/2021 6:37 PM Care Teams Team MemberRelationshipSpecialtyStart DateEnd Date Abebe Steawrt MD [address] [place] [address], [address] [place], [place] [id number] PCP - NfggufsThmjintqzl79/20/17
--- OUTSIDE RECORDS SUMMARY | 2025-05-26 13:55 | XMS_ITS | Patient Health Record ---
Author Organization [facility] [place] Address [address] [place] [address] Care Team Providers Care Injection Molding Machine Setter Name Role Phone Abebe Stewart MD Primary Care Provider Abebe Nazario Unavailable [phone] Allergies Allergen (clinical drug ingredient) Drug/Non Drug Allergy documented on EMR Reaction Allergy Type Onset Date Status amlodipine amLODIPine Unknown Drug Allergy Activefish oilsFish OilUnknownDrug AllergyActiveShellfish (FN)Shellfish-derived ProductsUnknownDrug AllergyActive Reason For Referral No Information Medications Medication SIG (Take, Route, Frequency, Duration) Notes Start Date End Date Status Cholecalciferol 25 MCG (1000 UT) 1 capsule Orall y Once a day; Duration: 90 days 4ActivehydrALAZINE HCl 50 MG1 tablet with food Orally TID; Duration: 90 daysActiveCarvedilol 25 MG1 tablet with food Orally Twice a dayActive Problems Problem Type SNOMED Code ICD Code Onset Dates Problem Status W/U Status Risk Notes Problem Essential hypertension (31299555 ) Essential (primary) hypertension (I10) ActiveconfirmedProblemPrimary hyperparathyroidism (51883570)Primary hyperparathyroidism (E21.0)ActiveconfirmedProblemChronic kidney disease stage 5 (127708417)Chronic kidney disease, stage 5 (N18.5)ActiveconfirmedProblemChronic kidney disease stage 4 (848322366)Chronic kidney disease (CKD) stage G4/A1, severely decreased glomerular filtration rate (GFR) between 15-29 mL/min/1.73 square meter and albuminuria creatinine ratio less than 30 mg/g (N18.4)Active confirmed Plan Of Treatment Pending Test Test Name [...] History History ICD Code HTN stage 4 CKDH/O splenectomy
--- OUTSIDE RECORDS SUMMARY | 2025-05-26 13:55 | XMS_ITS | Encounter Summary ---
Author Organization [facility] Address [address] [place] [address] Care Team Providers Care Court Crier Name Role Phone Abebe Stewart MD Primary Care Provider Abebe Tan MD Unavailable Encounter Details DateTypeDepartmentCare Team (Latest Contact Info)Nrfqokayfaj16/24/2025Orders Only [facility] [address] [place] [address] Britni Jensen, RN Elevated serum creatinine (Primary Dx) Social History Tobacco UseTypesPacks/DayYears UsedDateSmoking Tobacco: IleanqAvuqjykkca1105 - 1974Passive Smoke Exposure: PastSmokeless Tobacco: NeverAlcohol UseStandard Drinks/WeekCommentsYes0 (1 standard drink = 0.6 oz pure alcohol)[facility] UtilitiesAnswerDate RecordedIn the past 12 months has the Socialbomb, gas, oil, or water LiquidPiston threatened to shut off services in your [...] times a week04/05/2025How often do you attend taoism or shinto services?Never04/05/2025Do you belong to any clubs or organizations such as taoism groups, unions, fraternal or athletic groups, or school groups?No04/05/2025How often do you attend meetings of the clubs or organizations you belong to?Never04/05/2025re you , , , , never , or living with a partner?Mzjhpsnci89/04/2025UDIT-C AnswerDate RecordedQ1: How often do you have [...] heating?Not very hard05/11/2025 PHQ-2AnswerDate RecordedPatient Health Questionnaire-2 Oppuu488Finprimary [facility] hospital [place] of Occupational Health - Occupational Stress QuestionnaireAnswerDate RecordedDo you feel stress - tense, restless, nervous, or anxious, or unable to sleep at night because yourmind is troubled all the time - these days?Only a axbfnh4304/05/2025TransportationAnswerDate RecordedIn the past 12 months, has lack [...] homeless or living in a fpc (including now)?No05/11/2025Hunger Vital SignAnswerDate Recorded Within the past 12 months, you worried that your food would run out before you got the money to buymore.Never true05/11/2025Within the past 12 months, the food you bought just didn't last and you didn't have money to get more.Never true 05/11/2025Sex and Gender InformationValueDate RecordedSex Assigned at BirthMale 09/21/2024 6:43 AM ESTLegal EhsVwqv6301/29/2022 12:45 AM EDTGender IdentityMale 09/21/2024 7:43 AM ESTSexual OrientationHeterosexual or Hqfvqnox85/20/2025 7:43 AM ESTdocumented as of this encounter Plan of Treatment DateTypeDepartmentCare Team (Latest Contact Info)Rhvohdtctom99/28/2025 8:00 AM EDTFollow-Up [facility] [address] [place] [address] Abebe Tan MD [address] [place] [address] 05/29/2025 2:00 PM EDTAppointment [facility] [address] [place] [phone] 06/11/2025 9:00 AM ESTFollow-Up [facility] [address] [place] [address] Jayjay Robin MD [address] [place] [address] 06/19/2025 10:30 AM ESTFollow-Up [facility] [address] [place] [address] Izaiah Singh, SECOND CLASS WELDER [address] [place] [address] 06/25/2025 11:00 AM ESTFollow-Up [facility] [address] [place] [address] Sera Silverio CNP [address] [facility] [place] [address] NameTypePriorityAssociated DiagnosesOrder ScheduleNatera Prospera (Single)Lab Routine Elevated serum creatinine Expected: 05/25/2025 (Approximate), Expires: 05/25/2026documented as of this encounter Visit Diagnoses Diagnosis Elevated serum creatinine- Primary Other nonspecific findings on examination of blood documented in this encounter Care Teams Team MemberRelationshipSpecialtyStart DateEnd Date Abebe Stewart MD [address] [place] [address], [address] [place] [address] PCP - GeneralInternal Medicine09/21/24 Abebe Tan MD [address] [place] [address] Consulting PhysicianUrology04/07/25documented as of this encounter
--- OUTSIDE RECORDS SUMMARY | 2025-05-26 13:55 | XMS_ITS | Encounter Summary ---
Author Organization [facility] Address [id number] [address] 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 Name Role Phone Abebe Stewart MD Primary Care Provider [phone] Reason for Visit * ReasonOnset DateCommentsTransition Of Care05/04/2025 Encounter Details DateTypeDepartmentCare Team (Latest Contact Info)Frpsvmriedn46/03/2025Telephone [facility] Internal Medicine/Pediatrics [address] [facility] [address] [place] [address] Kandi Ramirez RN Transition Of Care Social History Tobacco UseTypesPacks/DayYears UsedDateSmoking Tobacco: NeverSmokeless Tobacco: NeverAlcohol UseStandard Drinks/WeekCommentsNot Currently0 (1 standard drink = 0.6 oz pure alcohol)AUDIT-CAnswerDate RecordedQ1: How often do you have a drink containing alcohol?Never09/12/2020Q2: How many drinks containing alcohol do you have on a typical day when you are drinking?1 or Q3: How often do you have six or more drinks on one occasion?Never09/12/2020HQ-2AnswerDate Recorded Total Dfcuu928/22/2024ChildcareAnswerDate KeplzlizTdetpbzwwSmarlfy31/12/2019 EmploymentAnswerDate SlkdjwziUwsxvpzluqEwdbmgh64/12/2019Hunger ScreeningAnswer Date RecordedWithin the past 12 months we worried whether our food would run out before we got money to buy more.Never True05/23/2024Within the past 12 months the food we bought just didn't last and we didn't have money to get more.Never True10/22/2024Purpose - LifeAnswerDate RecordedPurpose and direction in life Aqqcnef4909/12/2020ex and Gender InformationValueDate RecordedSex Assigned at BirthNot on fileLegal ElqTnin8303/07/2015 11:39 AM EDTGender IdentityNot on file Sexual OrientationNot on filedocumented as of this encounter Miscellaneous Notes * Telephone Encounter - Kandi Ramirez RN - 05/04/2025 7:41 AM EDT Images from the original note were not included. Transition of Care (*required) *Additional Questions/Concerns Requiring PCP Follow-Up: Please assist with scheduling a hospital follow up appointment. Will need an appt on/before 05/15/25, if possible, for a Transitional Care visit. This documentation is being used for Transition of Care purposes: Yes Goal: Patient will demonstrate a safe transition from hospital to home. Diagnosis on Discharge: Ischemic stroke Urinary Retention Recent kidney transplant Discharge Specialty: Neurology *Name of Discharging Facility: [facility] Hospital (admitted 04/28/25) *Date of Facility Discharge: 05/02/25 *Date of Interactive Contact and Name of News Photographer: 05/04/25 at 3:01pm Spoke with patient. *Medication Review Completed: Yes START aspirin 81 mg EC tablet CHANGE mycophenolate 180 mg EC tablet STOP metroNIDAZOLE 500 mg tablet Medication Reconciliation Questions/Concerns: N/A *Follow Up Appointments with Providers: Primary: Abebe Stewart MD Specialty: Neurology 4-6 weeks (Phone number not found - patient will discuss at upcoming appointments at [facility]) Specialty: Urology Dr. Tan 05/07/25 at 9:45am Specialty: [facility] Infusion 05/10/25 at 1:30pm Specialty: [facility] Transplant Dr. Robin 05/16/25 at 8:00am Specialty: [facility] Cardiology Izaiah Singh CNP 06/19/25 at 10:30am Review of Pending Lab/Diagnostic Tests and Plan for Completion: N/a. Assessment and Support of Treatment Regimen Adherence and Medication Management: Patient staying with his sister. Independent with ADLs DME : denies needs. Transportation - sister driving. Reports doing okay . Still notes right hand weakness, right facial droop, slurred speech noted, but overall patient feels these neurological deficits are improving. Denies new/worsening symptoms. 8/30 - kidney transplant. [place] out, steri strips. No pain. Denies chest pain/palpitations. Event monitor - 30 days current on. Denies SOB, coughing, or wheezing. Occ cough from sinuses. Denies leg swelling or calf pain. Eating/drinking without difficulty. Moving bowels without difficulty. [place] in place, urine is clear and yellow. Ambulating with use of walker. No lifting greater than 10 lbs for 2-4 weeks No driving until cleared by neurology No strenuous activity Education Provided by ACN to Support Self-Management, Independent Living and ADLs: Reviewed discharge instructions per AVS. Reviewed signs and symptoms to monitor for and when to call provider/go to ED. Communication with Home Health Agencies and Other Services Utilized/Needed by the Patient: N/A. documented in this encounter Plan of Treatment [...] Team MemberRelationshipSpecialtyStart DateEnd Date Abebe Stewart MD [address] [place] [address], [place] [address] PCP - FyacnyaHupbqxwyxv27/20/17documented as of this encounter
--- OUTSIDE RECORDS SUMMARY | 2025-05-26 13:55 | XMS_ITS | Encounter Summary ---
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 And Bath Designer Name Role Phone Abebe Stewart MD Primary Care Provider [phone] Abebe Tan MD Unavailable Encounter Details DateTypeDepartmentCare Team (Latest Contact Info)Jiscdabupal60/23/2025Education [facility] PICC Team [address] [place] [phone] Maida Sneed RN Social History Tobacco UseTypesPacks/DayYears UsedDateSmoking Tobacco: SrckhoRjuvimpchm1410 - 1974Passive Smoke Exposure: PastSmokeless Tobacco: NeverAlcohol UseStandard Drinks/WeekCommentsYes0 (1 standard drink = 0.6 oz pure alcohol)[facility] UtilitiesAnswerDate RecordedIn the past 12 months has the [employer], gas, oil, or water [employer] threatened to shut off services in your [...] times a week04/05/2025How often do you attend hoahaoism or scientology services?Never04/05/2025Do you belong to any clubs or organizations such as hoahaoism groups, unions, fraSkribit or athletic groups, or school groups?No04/05/2025How often do you attend meetings of the clubs or organizations you belong to?Never04/05/2025re you , , , , never , or living with a partner?Rzxdgydyc00/04/2025UDIT-C AnswerDate RecordedQ1: How often do you have [...] heating?Not very hard05/11/2025 PHQ-2AnswerDate RecordedPatient Health Questionnaire-2 Yowvs262Finriverton [facility] - Occupational Stress QuestionnaireAnswerDate RecordedDo you feel stress - tense, restless, nervous, or anxious, or unable to sleep at night because yourmind is troubled all the time - these days?Only a qfsmfu4204/05/2025TransportationAnswerDate RecordedIn the past 12 months, has lack [...] Assigned at BirthMale 09/21/[birth year]24 6:43 AM ESTLegal UefGxeb2301/29/2022 12:45 AM EDTGender IdentityMale 09/21/2024 7:43 AM ESTSexual OrientationHeterosexual or Hkgotzsk94/20/2025 7:43 AM ESTdocumented as of this encounter Plan of Treatment DateTypeDepartmentCare Team (Latest Contact Info)Uniugxdzanr19/28/2025 8:00 AM EDTFollow-Up [facility] Transplant [address] [place] [phone] [place] [phone] 05/29/2025 2:00 PM EDTAppointment [facility] US IMAGING [address] [place] [phone] 06/11/2025 9:00 AM ESTFollow-Up [facility] Transplant [address] [place] [phone] Jayjay Robin MD [address] [place] [address] 06/19/2025 10:30 AM ESTFollow-Up [facility] [address] [place] [phone] Izaiah Singh, COMM[employer] BOARD MEMBER [address] [place], [place] [phone] 06/25/2025 11:00 AM ESTFollow-Up [facility] Neurology [address] [phone] Sera Silverio CNP [address] [facility] [place] [address] documented as of this encounter Visit Diagnoses Not on filedocumented in this encounter Care Teams Team MemberRelationshipSpecialtyStart DateEnd Date Abebe Stewart MD [address] [place] [address], [address] [place], [place] [phone] PCP - GeneralInternal Medicine09/21/24 Abebe Tan MD [address] [facility] [place] [address] Consulting PhysicianUrology04/07/25documented as of this encounter
--- OUTSIDE RECORDS SUMMARY | 2025-05-26 13:56 | XMS_ITS | Clinical Summary ---
Author Organization [facility] Address [address] [place] [address] Care Team Providers Care Orthotic Aide Name Role Phone Ghazal Cevallos MD Primary Care Provider [phone] Ghazal Tan MD Unavailable Allergies Active AllergyReactionsCriticalityNoted JvjtVtqtglrlFospvxexuvZueirfhc76/22/2021 Leg edema Shellfish DerivedNausea And EwylwonwFaywpi80/01/2021 Vomiting Medications MedicationSigDispense QuantityRefillsLast FilledStart DateEnd DateStatus carvedilol (Coreg) 25 mg tablet 25 mg with breakfast and with evening meal.4Active nystatin (Mycostatin) 100,000 unit/mL suspension Indications:Encounter for aftercare following kidney transplantTake 5 mL (500,000 Units) by mouth four times daily. Swish and swallow 600 mL 5Active sulfamethoxazole-trimethoprim (Bactrim DS) 800-160 mg tablet Indications:Immunosuppressive management encounter following kidney transplant Take 1 tablet by mouth 3 (three) times a week. On Wednesday, Wednesday, and Wednesday 12 tablet 5Active valGANciclovir (Valcyte) 450 mg tablet Indications:Immunosuppressive management encounter following kidney transplant Take 1 tablet (450 mg) by mouth in the morning. As directed. 30 tablet 5Active tacrolimus ER (Envarsus XR) 4 mg tablet ER Indications:Immunosuppressive management encounter following kidney transplant Take 1 tablet (4 mg) by mouth in the morning. Script total 8.5 mg daily 30 tablet 5Active Additional Information Patient taking differently:4 mg oral Daily,4 mg daily, Reported on 05/16/2025 sod phos di, mono-K phos mono (K Phos Neutral) tablet Indications:Encounter for aftercare following kidney transplant,Hypophosphatemia Take 1 tablet by mouth two times daily.5Active bumetanide (Bumex) 1 mg tablet Indications:Encounter for aftercare following kidney transplant,Bilateral lower extremity edemaTake 1 tablet (1 mg) by mouth in the morning. 30 tablet 5Active finasteride (Proscar) 5 mg tablet Indications:Benign prostatic hyperplasia with urinary retentionTake 1 tablet (5 mg) by mouth in the morning. Do not crush, chew, or split. 30 tablet 6Active hydrALAZINE (Apresoline) 100 mg tablet Indications:Primary hypertensionTake 1 tablet (100 mg) by mouth three times daily. 90 tablet 5Active NIFEdipine XL (Procardia XL) 30 mg 24 hr tablet Indications:Primary hypertensionTake 1 tablet (30 mg) by mouth in the morning. Do not crush, chew, or split. 30 tablet 5Active calcium carbonate (Tums) 200 mg calcium (500 mg) chewable tablet Indications:Encounter for aftercare following kidney transplant,HypocalcemiaChew 3 tablets (1,500 mg) two times daily. Without food 180 tablet 5Active magnesium glycinate 100 mg magnesium capsule Indications:HypomagnesemiaTake 3 capsules (300 mg) by mouth three times daily. 270 capsule 5Active pantoprazole (ProtoNix) 40 mg EC tablet Indications:Abdominal pain, unspecified abdominal locationTake 1 tablet (40 mg) by mouth before breakfast. Do not crush, chew, or split. 30 tablet 5Active famotidine (Pepcid) 20 mg tablet Indications:Gastroesophageal reflux disease without esophagitisTake 1 tablet (20 mg) by mouth at bedtime. 30 tablet 5Active aspirin 81 mg EC tablet Indications:Ischemic stroke diagnosed during current admission ([facility])Take 1 tablet (81 mg) by mouth in the morning. 30 tablet 5Active polyethylene glycol (Glycolax) 17 gram packet Indications:Benign prostatic hyperplasia with urinary retentionTake 17 g by mouth if needed each day (constipation). 30 packet /5Active predniSONE (Deltasone) 10 mg tablet Indications:ImmunosuppressionTake 1 tablet (10 mg) by mouth in the morning. 30 tablet 5Active mycophenolate (Myfortic) 180 mg EC tablet Indications:ImmunosuppressionTake 2 tablets (360 mg) by mouth two times daily. 5Active tamsulosin (Flomax) 0.4 mg 24 hr capsule Indications:Urinary retentionTake 2 capsules (0.8 mg) by mouth in the morning. 60 capsule 5Active cefepime (Maxipime) IVPB Indications:Urinary tract infection without hematuria, site unspecifiedInfuse 100 mL (2 g) into a venous catheter every 12 (twelve) hours for 7 days. 1400 mL /5Active metroNIDAZOLE (Flagyl) 500 mg tablet Indications:DiverticulitisTake 1 tablet (500 mg) by mouth every 12 (twelve) hours for 18 doses. 18 tablet /08/2024Discontinued(Stop Taking at Discharge) tamsulosin (Flomax) 0.4 mg 24 hr capsule Indications:Urinary retentionTake 2 capsules (0.8 mg) by mouth in the morning. 60 capsule Discontinued(Reorder) mycophenolate (Myfortic) 180 mg EC tablet Indications:Immunosuppressive management encounter following kidney transplant Take 4 tablets (720 mg) by mouth two times daily. 240 tablet Discontinued tacrolimus ER (Envarsus XR) 1 mg tablet ER Indications:Immunosuppressive management encounter following kidney transplant Take 3 tablets (3 mg) by mouth in the morning. Script total 8.5 mg daily 90 tablet /Discontinued(Dose adjustment) tacrolimus ER (Envarsus XR) 0.75 mg tablet ER Indications:Immunosuppressive management encounter following kidney transplant Take 2 tablets (1.5 mg) by mouth in the morning. Script total 8.5 mg daily 60 tablet /Discontinued(Dose adjustment) predniSONE (Deltasone) 10 mg tablet Indications:Immunosuppressive management encounter following kidney transplant Take 2 tablets (20 mg) by mouth in the morning. 60 tablet 110Discontinued(Reorder) mycophenolate (Myfortic) 180 mg EC tablet Indications:Immunosuppressive management encounter following kidney transplant Take 2 tablets (360 mg) by mouth two times daily. Discontinued mycophenolate (Myfortic) 180 mg EC tablet Indications:Immunosuppressive management encounter following kidney transplant Take 3 tablets (540 mg) by mouth two times daily. Discontinued Active Problems ProblemNoted DateDiagnosed DateUTI (urinary tract infection)05/24/2025Urinary wtwxaeoee00/15/2025Gastroesophageal reflux disease without lheamrqxvhf83/15/2025 S/P TURP11346Cqpamzhrukvp96/15/2025PH with urinary zjwqqmexhrf29/10/2025 BPH with obstruction/lower urinary tract lmywpzys38/07/2025erebrovascular accident (CVA)04/30/2025Suspected stroke patient last known to be well more than 2 hours ago04/28/2025Immunosuppressive management encounter following kidney /22/4903Rkamuitfazegtud83/22/5341Bezrogpbnkiosrcng10/16/2025enign prostatic hyperplasia with urinary lcpivovjw81/16/4048Ioaipavivhbmjbqn69/16/2025 Bilateral lower extremity edema04/17/20252731Dysrxdsefujh21/16/2025Hypomagnesemia 04/17/20254987Pkcrnqdi51/16/2025Encounter for aftercare following kidney transplant 04/13/20257219Ccezvtwhivngmp65/10/2025GI bleed04/05/2025Kidney replaced by xyoyopmxtd80/02/2025H/O kwdkakquilm22/13/2025Hypertensive disorder Overview (03/26/2025): Age of onset 59 Diverticular disease Overview (09/14/2024): s/p colectomy 2016 Vitamin D deficiencyProteinuriaSecondary hyperparathyroidism of renal origin Anemia in chronic kidney disease (CKD)History of DVT (deep vein thrombosis) Overview (09/14/2024): proximal vein left leg (from distal calf to groin, 07/2021, was to be on lifelong warfarin but stopped after 05/2022 GI bleed) Renal cyst, leftGoutRecurrent sinusitisNSAID long-term use Overview (09/14/2024): h/o CKD (chronic kidney disease) stage 5, GFR less than 15 ml/min Overview (03/26/2025): Secondary to HTN Lung nodule seen on imaging study Encounters DateTypeDepartmentCare LdrrYswokptrwpl24/24/2025ommunity Orders [facility] Transplant [address] [place] [phone] Britni Jensen RN Elevated serum mmcbdnbybz88/24/2025Orders Only [facility] Transplant [address] [place] [address] Britni Jensen RN Elevated serum creatinine (Primary Dx)05/24/2025 1:56 PM EDT - 05/24/2025 11:59 PM EDTHospital Encounter [facility] 2A Infusion [address] [place] [address] Acute cystitis without hematuria (Primary Dx); Encounter for aftercare following kidney transplant; Transplanted kidney; Encounter for long-term (current) use of medications Discharge Disposition: Home or Self Care ()05/24/2025 1:48 PM EDT - 05/24/2025 1:55 PM EDTHospital Encounter [facility] PICC Team [address] [place] [address] Arrived Discharge Disposition: Home or Self Care ()05/24/2025 1:00 PM EDTConsult [facility] Transplant [address] [place] [address] Djuxlar8605/24/2025Education [facility] PICC Team [address] [place] [address] Maida Sneed, JUANA 05/24/2025Orders Only [facility] Social Work [address] [place] [phone] Worker, Social, GLOBE TESTER 05/24/2025Orders Only [facility] Infusion [address] [place] [phone] Kevin Anderson, TaneshaD, BCOP 05/24/2025Orders Only [facility] 2A Infusion [address] [place] [address] Nancy Champion, sales center associate cystitis without hematuria (Primary Dx)05/24/2025Orders Only [facility] 2A Infusion [address] [place] [address] Bessy German, JUANA 05/23/2025Orders Only [facility] Transplant [address] [place] [address] Zahra Rhoades, JUANA Urinary tract infection without hematuria, site unspecified (Primary Dx) 05/18/2025Telephone [facility] 5ABCD Surgery Stepdown [address] [place] [address] Regla Doyle, JUANA 05/16/2025 11:00 AM EDTOffice Visit [facility] Urology [address] [place] [address] Odette Duarte CNP Urinary retention (Primary Dx); End stage renal disease (CMS/HCC)05/16/2025 8:00 AM EDTFollow-Up [facility] Transplant [address] [place] [address] Jayjay Robin MD Immunosuppression (Primary Dx); Kidney replaced by transplant; Primary hypertension; Urinary retention; Hypocalcemia; Cerebrovascular accident (CVA), unspecified mechanism (CMS/HCC); Hypomagnesemia; Gastroesophageal reflux disease without esophagitis; Hypophosphatemia; Bilateral lower extremity edema; S/P TURP; Other elevated white blood cell (WBC) count05/16/2025 7:20 AM EDTLab [facility] Kidney Transplant Draw Station [address] [place] [phone] Encounter for aftercare following kidney transplant; Transplanted kidney; Encounter for long-term (current) use of medications; Encounter for screening for diseases of the blood and blood-forming organs and certain disorders involving the immune mechanism; Screening for human immunodeficiency virus05/14/2025 8:30 AM EDTFollow-Up [facility] Urology [address] [place] [address] Ghazal Tan MD S/P TURP (Primary Dx)05/14/2025Refill [facility] Transplant [address] [place] [address] Rosa Nix MA Encounter for aftercare following kidney transplant; Bilateral lower extremity edema05/11/2025 2:30 PM EDT - 05/11/2025 4:00 PM EDT Surgery [facility] Main Operating Room [address] [place] [address] Ghazal Tan MD TURP (TRANSURETHRAL RESECTION OF PROSTATE) [70624 (CPT??)]05/11/2025 2:21 PM EDT Anesthesia Event [facility] Main Operating Room [address] [place] [address] Iam Blair MD Kwak, Eun Seo, MD 05/11/2025 1:00 PM EDT - 05/12/2025 7:11 PM EDTHospital Encounter [facility] 4AB Urology [address] [place] [address] Ghaazl Tan MD 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); BPH with obstruction/lower urinary tract symptoms Discharge Disposition: Home-Health Care c (06)05/11/20251397Mxwbmm36/09/2025 1:11 PM EDT - 05/10/2025 11:59 PM EDTHospital Encounter [facility] 2A Infusion [address] [place] [address] Kidney transplanted (Primary Dx); Anemia in chronic kidney disease, unspecified CKD stage; Encounter for aftercare following kidney transplant Discharge Disposition: Home or Self Care ()05/08/2025Telephone [facility] Transplant [address] [place] [address] Radha Lind RN 05/08/20256433Oyelck33/07/2025Orders Only [facility] Urology [address] [place] [address] Ghazal Tan MD BPH with obstruction/lower urinary tract symptoms (Primary Dx)05/07/2025 9:45 AM EDTProcedure Visit [facility] Urology [address] [place] [address] Ghazal Tan MD 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)04/28/2025 4:40 PM EDT - 05/02/2025 11:31 AM EDTHospital Encounter [facility] 4AB Urology [address] [place] [address] Jayjay Robin MD Ischemic stroke diagnosed during current admission ([facility]) (Primary Dx); Suspected stroke patient last known to be well more than 2 hours ago; Immunosuppressive management encounter following kidney transplant; Kidney transplanted; Encounter for aftercare following kidney transplant; BPH with obstruction/lower urinary tract symptoms Discharge Disposition: Home-Health Care Sv ()04/28/20255666Fdsdmd10/25/2025 9:05 AM EDTLab [facility] Outpatient Draw Station [address] [place] [address] Encounter for aftercare following kidney transplant; Transplanted kidney; Encounter for long-term (current) use of medications; Immunosuppressive management encounter following kidney zguveojblq27/25/2025 7:57 AM EDT - 04/26/2025 11:59 PM EDTHospital Encounter [facility] 2A Infusion [address] [place] [address] Kidney transplanted (Primary Dx); Anemia in chronic kidney disease, unspecified CKD stage; Encounter for aftercare following kidney transplant Discharge Disposition: Home or Self Care ()04/26/2025Orders Only [facility] 2A Infusion [address] [place] [address] Nancy Champion RN 04/25/2025Telephone [facility] Transplant [address] [place] [address] Daksha Domínguez, Elizabeth, [facility] Pharmacist - Drug Kdievdnfsui03/22/2025 11:[facility] [address] [place] [address] Encounter for aftercare following kidney transplant; Immunosuppressive management encounter following kidney lvmvmbhesa24/22/2025 10:[facility] [address] [place] [address] Odette Duarte CNP 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); End stage renal disease ([facility])04/23/2025 9:00 AM EDTFollow-[facility] Transplant [address] [place] [address] Jayjay Robin MD Immunosuppressive management encounter following kidney transplant (Primary Dx); Encounter for aftercare following kidney transplant; Primary hypertension; Gastroesophageal reflux disease without esophagitis; Diverticulitis; Hypocalcemia; Hypomagnesemia; Abdominal pain, unspecified abdominal location; Hypophosphatemia; Hypoalbuminemia; Benign prostatic hyperplasia with urinary retention; Anemia in chronic kidney disease, unspecified CKD stage04/23/2025 7:00 AM [facility] Kidney Transplant Draw Station [address] [place] [address] Encounter for aftercare following kidney transplant; Transplanted kidney; Encounter for long-term (current) use of /22/2025Orders Only [facility] Transplant [address] [place] [address] Zahra Rhoades RN 04/23/2025Orders Only [facility] 2A Infusion [address] [place] [address] Nancy Champion RN 04/20/2025 8:15 AM EDTFoll-[facility] Transplant [address] [place] [address] Wendy Lomeli MD Encounter for aftercare following kidney transplant (Primary Dx); Immunosuppressive management encounter following kidney transplant; Need for prophylactic antibiotic; Anemia in chronic kidney disease, unspecified CKD stage; Hypomagnesemia; Primary nnpbepgglaas61/19/2025 7:45 AM EDTOffice Visit [facility] Kidney Transplant Draw Station [address] [place] [address] Encounter for aftercare following kidney transplant; Transplanted kidney; Encounter for long-term (current) use of gpthweribgy73/19/2025 7:01 AM EDT - 04/20/2025 11:59 PM EDTHospital Encounter [facility] [address] [address] Kidney transplanted (Primary Dx); Anemia in chronic kidney disease, unspecified CKD stage; Encounter for aftercare following kidney transplant Discharge Disposition: Home or Self Care ()04/20/2025Orders Only [facility] [address] [address] Nancy Champion RN 04/16/2025 9:00 AM EDTFollow-Up [facility] Transplant [address] [place] [address] Jayjay Robin MD Immunosuppression (Primary Dx); Encounter for aftercare following kidney transplant; Primary hypertension; Benign prostatic hyperplasia with urinary retention; Diverticulitis; Anemia in chronic kidney disease, unspecified CKD stage; Hypophosphatemia; Bilateral lower extremity edema; Hypocalcemia; Hypomagnesemia; Diarrhea, unspecified type04/16/2025 7:00 AM EDTLab [facility] Kidney Transplant [place] [address] Encounter for aftercare following kidney transplant; Transplanted kidney; Encounter for long-term (current) use of medications; Hypocalcemia; Csgcrhsiewe01/15/2025Orders Only [facility] 2[place] [address] Ness Saenz RN 04/16/2025Orders Only [facility] [address] [address] Nancy Champion RN 04/13/2025 9:00 AM EDTClinical Support [facility] Transplant [address] [place] [address] Daksha Domínguez, Elizabeth, [facility] Encounter for medication review and counseling (Primary Dx)04/13/2025 8:00 AM EDTFollow-Up [facility] [place] [address] Wendy Lomeli MD Encounter for aftercare following kidney transplant (Primary Dx); Immunosuppressive management encounter following kidney transplant; Need for prophylactic antibiotic; Primary hypertension; Hypocalcemia; Hypophosphatemia; Hypokalemia; Anemia in chronic kidney disease, unspecified CKD stage; Urinary pecrtcayl14/12/2025 7:10 AM EDTLab [facility] [place]ney [place] [address] Encounter for aftercare following kidney transplant; Transplanted kidney; Encounter for long-term (current) use of medications; Encntr screen for malignant neoplasm of genitourinary cvhbgu4404/12/2025Orders Only [facility] [address] [address] Nancy Champion RN 04/09/2025 11:59 PM EDTAnesthesia Event [facility] Invasive Surgery [facility] [address] [place] [address] Sachin Barry MD 04/05/2025 3:52 PM EDT - 04/11/2025 5:39 PM EDTHospital Encounter [facility] 4AB Urology [address] [place] [address] Rolanda Haynes PA-C Yadav, Kunal, MD GI bleed (Primary Dx); History of renal transplant; Abdominal pain, unspecified abdominal location; Kidney transplanted; Primary hypertension; Diverticulitis; Urinary retention Discharge Disposition: Home or Self Care ()04/05/2025Orders Only [facility] [address] [address] Nancy Champion, JUANA 04/05/20256478Twnjuw83/04/2025Telephone [facility] [place] [place] [address] Ruth Goodson Transplant Pharmacist - Discharge Phone Call04/03/2025Telephone [facility] [place] [place] [address] Koby Nascimento, PharmD, BCTXP Transplant Pharmacist - Initial Discharge Prescription Plan04/03/2025Orders Only [facility] [place] [address] Grazyna Briseno CNP Encounter for aftercare following kidney transplant (Primary Dx); Transplanted kidney; Encounter for long-term (current) use of medications; Encntr screen for malignant neoplasm of genitourinary organs; Screening for human immunodeficiency virus; Encounter for screening for diseases of the blood and blood-forming organs and certain disorders involving the immune owudutgve56/30/2025 6:24 PM EDTAnesthesia Event [facility] Main Operating Room [place] [address] Iam Blair MD Arnaut, Daniel, MD 03/31/2025 5:30 PM EDT - 03/31/2025 9:30 PM EDTSurgery [facility] Main [place] [address] Jayjay Robin MD TRANSPLANT, KIDNEY, DONOR UNOS# [id number] 4:43 PM EDT - 04/04/2025 3:50 PM EDTHospital Encounter [facility] 4AB [place] [address] Jayjay Robin MD CKD (chronic kidney disease) stage 5, GFR less than 15 ml/min (CMS/HCC) (Primary Dx); Stage 5 chronic kidney disease not on chronic dialysis (CMS/HCC); ESRD (end stage renal disease) (CMS/HCC); Kidney transplanted; Drug induced constipation; Post-op pain Discharge Disposition: Home or Self Care ()03/31/2025 3:11 PM EDT - 03/31/2025 4:42 PM EDTHospital Encounter [facility] [place] [address] Discharge Disposition: Home or Self Care ()03/31/2025 3:06 PM EDT - 03/31/2025 3:10 PM EDTHospital Encounter [facility] [place] [address] Discharge Disposition: Home or Self Care ()03/31/2025 1:11 PM EDT - 03/31/2025 3:05 PM EDTHospital Encounter [facility] [place] [address] Discharge Disposition: Home or Self Care ()03/31/20256038Bidzls25/30/2025Telephone [facility] [place] [address] Marva Mancini RN 03/28/2025Telephone [facility] Transplant [address] [place] [address] Ghazal Serrano, JUANA 03/28/2025Telephone [facility] Transplant [address] [place] [address] Ghazal Serrano, JUANA 03/26/2025Episode Changes [facility] Transplant [address] [place] [address] Radha Lind RN 03/22/2025 1:10 PM EDTLab [facility] Outpatient [place] [address] Pre-transplant evaluation for kidney jkymadgzbg23/01/2025Telephone [facility] Transplant [address] [place] [address] Radha Lind, JUANA from Last 3 Months Immunizations ImmunizationAdministration DatesNext DueInfluenza, High Dose Seasonal, Preservative Free04/06/2024Influenza, High-dose Seasonal, Quadrivalent, Preservative Free07/15/2023Influenza, injectable, quadrivalent, preservative free07/01/2018Pneumococcal Conjugate PCV 13008/27/2015Pneumococcal Conjugate PCV 3Pneumococcal Polysaccharide GTP738509/19/2010RSV, Adult, Bivalent 09/24/2023Zoster, Uhjccfnrkiy47/23/2024,07/15/2023 Family History Medical HistoryRelationNameCommentsHeart diseaseFatherHad pacemakerRelationName StatusCommentsFatherSisterRobinAlive Social History Tobacco UseTypesPacks/DayYears UsedDateSmoking Tobacco: LiqtofXervibscwi9067 - 1974Passive Smoke Exposure: PastSmokeless Tobacco: Never Tobacco Cessation:Counseling Given: Not Answered Alcohol UseStandard Drinks/WeekCommentsYes0 (1 standard drink = 0.6 oz pure alcohol)[facility] UtilitiesAnswerDate RecordedIn the past 12 months has the AttorneyFee, gas, oil, or water [place] Electronic Certificate [facility] threatened to shut off services in your home?No05/11/2025Humiliation, Afraid, Rape, and Kick questionnaireAnswerDate RecordedWithin the last year, have you been afraid of your partner or ex-partner?No05/11/2025Within the last year, have you been humiliated or emotionally abused in other ways by your partner or ex-partner?No05/11/2025 Within the last year, have you been kicked, hit, slapped, or otherwise physically hurt by your partner or ex-partner?05/11/2025Within the last year, have you been raped [...] a week 04/05/2025How often do you attend pentecostalism or buddhism services?Never04/05/2025Do you belong to any clubs or organizations such as pentecostalism groups, unions, fraternal or athletic groups, or school groups?No04/05/2025How often do you attend meetings of the clubs or organizations you belong to?Never04/05/2025re you , , , , never , or living with a partner?Dspighsqm92/04/2025UDIT-CAnswerDate RecordedQ1: How often do you have a [...] and heating?Not very hard05/11/2025PHQ-2AnswerDate RecordedPatient Health Questionnaire-2 Ghzdq682[facility] [place] [facility] - Occupational Stress QuestionnaireAnswerDate RecordedDo you feel stress - tense, restless, nervous, or anxious, or unable to sleep at night because yourmind is troubled all the time - these days?Only a rbwkhp1104/05/2025TransportationAnswer Date RecordedIn the past 12 months, has [...] homeless or living in a correction (including now)?No05/11/2025 Hunger Vital SignAnswerDate RecordedWithin the past 12 months, you worried that your food would run out before you got the money to buymore.Never true05/11/2025 Within the past 12 months, the food you bought just didn't last and you didn't have money to get more.Never true05/11/2025Sex and Gender InformationValueDate RecordedSex Assigned at McuxoTwve55/20/2025 6:43 AM ESTLegal ZloNydh5901/29/2022 12:45 AM EDTGender QynaveayLjgo81/20/2025 7:43 AM ESTSexual Orientation Heterosexual or Xridqouc46/20/2025 7:43 AM EST Last Filed Vital Signs Vital SignReadingTime TakenCommentsBlood Sqlzanxa366/7105/16/2025 9:07 AM EDT Kpnce147405/16/2025 9:07 AM MTMTgrxaymntwz16.6 ??C (97.9 ??F)05/16/2025 9:07 AM EDTRespiratory Wzui8406 9:07 AM EDTOxygen Ndymvxrrsc98%05/16/2025 9:07 AM EDTInhaled Oxygen Concentration--Xawxot79.1 kg (176 lb 8 oz)05/16/2025 9:07 AM LPEVzamqx299.4 cm (6' 1 )05/16/2025 9:07 AM EDTBody Mass Index23.291 9:07 AM EDT Plan of Treatment DateTypeDepartmentCare Team (Latest Contact Info)Yvvfaulugip28/28/2025 8:00 AM EDTFollow-Up [facility] Transplant [address] [place] [address] [place] [phone] 05/29/2025 2:00 PM EDTAppointment [facility] US IMAGING [address] [place] [phone] 06/11/2025 9:00 AM ESTFollow-Up [facility] Transplant [address] [place] [address] [place] [address] 06/19/2025 10:30 AM ESTFollow-Up [facility] [address] [place] [address] Izaiah Singh, PLAYGROUND WORKER [address] [place] [place], [place] [id number] 06/25/2025 11:00 AM ESTFollow-Up [facility] [address] [address] Sera Silverio, PLAYGROUND WORKER [address] [place] [address] Health MaintenanceDue DateLast DoneCommentsMedicare Annual Wellness (AWV) 1954HIB Vaccines (1 of 1 - Risk 1-dose series)10/29/1955Meningococcal Vaccine (1 - Risk 2-dose series)1956Meningococcal B Vaccine (1 of 4 - Increased Risk)1964COVID-19 Vaccine (3 - Moderna risk series)11/04/2024 10/07/2024, 04/06/2024, 07/15/2023, Additional history existsInfluenza Vaccine (#1)509/12/2023, 07/15/2023, 07/01/2018Depression Bymoohver07/15/2026 05/16/2025Fall Risk Cyrqccetb42/15/8333895Adult Mloaavp3312/15/2034 12/15/20248963UcgmcgprpqvNcqjprptrmnj00/06/2023neumococcal Vaccine: 50+ Years Cdqkoxigh90/14/2023, 08/27/2015, 09/19/2010Zoster OjktugbfHhyhmvbjl35/23/2024, 07/15/2023olorectal Cancer ZgeorfrcoJyneycftpsmyFJVXHdiyjpqjrrnf41/04/2025CT ColonographyDiscontinuedFIT-DNADiscontinuedFITDiscontinuedHPV VaccinesAged OutNo longer eligible based on patient's age to complete this topicIPV VaccinesAged OutNo longer eligible based on patient's age to complete this topicRotavirus VaccinesAged OutNo longer eligible based on patient's age to complete this topic SigmoidoscopyDiscontinued Medical Devices ExplantedTypeAreaManufacturerDevice IdentifierShelf Expiration DateModel / Serial / LotStent,Ureteral,Pigtail,3nd77td - [id number] Implanted:Qty: 1 on 03/31/2025 by Jayjay Robin MD at [facility] Explanted:05/01/2025 (Quantity not on file)StentLeft: UreterCOOK INCORPORATED [id number] / / [id number]:TRANSPLANT URETER Procedures Procedure NamePriorityDate/TimeAssociated DiagnosisCommentsCBC WITH AUTO TKCPUNJRSMPKFlezkia78/23/2025 3:41 PM EDT Encounter for aftercare following kidney transplant Transplanted kidney Encounter for long-term (current) use of medications COMPREHENSIVE METABOLIC VBUZYJjghwea05/23/2025 3:41 PM EDT Encounter for aftercare following kidney transplant Transplanted kidney Encounter for long-term (current) use of medications CBC AND KGTZKTGGFOSJUqrypyb83/23/2025 3:41 PM EDT Encounter for aftercare following kidney transplant Transplanted kidney Encounter for long-term (current) use of medications URINALYSIS MICROSCOPIC WITH REFLEX XBZAZJOEyrgkcl19/15/2025 10:39 AM EDT Kidney replaced by transplant URINALYSIS WITH REFLEX JXBHOSKIfqaktq87/15/2025 10:39 AM EDT Kidney replaced by transplant CREATININE, URINE, RPJQUDEqxqyob48/15/2025 10:39 AM EDT Kidney replaced by transplant PROTEIN, URINE, DJRHUCYggmxtq81/15/2025 10:39 AM EDT Kidney replaced by transplant URINE SZDDQEOTgwjfqb54/15/2025 10:39 AM EDT Kidney replaced by transplant MANUAL NAREDIMQHRNIQnexlmb15/15/2025 7:24 AM EDT Encounter for aftercare following kidney transplant Transplanted kidney Encounter for long-term (current) use of medications BILIRUBIN, ORWQETAbilttc58/15/2025 7:24 AM EDT Encounter for aftercare following kidney transplant Transplanted kidney Encounter for long-term (current) use of medications SINGLE ANTIGEN CLASS ONStmpclv27/15/2025 7:24 AM EDT Encounter for aftercare following kidney transplant Transplanted kidney Encounter for long-term (current) use of medications SINGLE ANTIGEN CLASS KKbdsdlt71/15/2025 7:24 AM EDT Encounter for aftercare following kidney transplant Transplanted kidney Encounter for long-term (current) use of medications CBC WITH AUTO QGTUIFWXUFKUWqcparl92/15/2025 7:24 AM EDT Encounter for aftercare following kidney transplant Transplanted kidney Encounter for long-term (current) use of medications HIV RNA, QUANTITATIVE, JWNXokzofk02/15/2025 7:24 AM EDT Encounter for aftercare following kidney transplant Transplanted kidney Encounter for long-term (current) use of medications Screening for human immunodeficiency virus Encounter for screening for diseases of the blood and blood-forming organs and certain disorders involving the immune mechanism HCV QUANTITATIVE DLBShxwakk03/15/2025 7:24 AM EDT Encounter for aftercare following kidney transplant Transplanted kidney Encounter for long-term (current) use of medications Encounter for screening for diseases of the blood and blood-forming organs and certain disorders involving the immune mechanism HBV QUANT DEHUevjzjn31/15/2025 7:24 AM EDT Encounter for aftercare following kidney transplant Transplanted kidney Encounter for long-term (current) use of medications Encounter for screening for diseases of the blood and blood-forming organs and certain disorders involving the immune mechanism TACROLIMUS FDIAGJilllwv76/15/2025 7:24 AM EDT Encounter for aftercare following kidney transplant Transplanted kidney Encounter for long-term (current) use of medications URIC QIPQBjloojo72/15/2025 7:24 AM EDT Encounter for aftercare following kidney transplant Transplanted kidney Encounter for long-term (current) use of medications ZJCRIJCXZTDqwezuk99/15/2025 7:24 AM EDT Encounter for aftercare following kidney transplant Transplanted kidney Encounter for long-term (current) use of medications QWTTUNRMDHqylycq21/15/2025 7:24 AM EDT Encounter for aftercare following kidney transplant Transplanted kidney Encounter for long-term (current) use of medications DONOR SPECIFIC NDTTFIGXUnawyai89/15/2025 7:24 AM EDT Encounter for aftercare following kidney transplant Transplanted kidney Encounter for long-term (current) use of medications COMPREHENSIVE METABOLIC NEYYPBqsywgq52/15/2025 7:24 AM EDT Encounter for aftercare following kidney transplant Transplanted kidney Encounter for long-term (current) use of medications CBC AND NTSLIQVFZPJDNqmmddq68/15/2025 7:24 AM EDT Encounter for aftercare following kidney transplant Transplanted kidney Encounter for long-term (current) use of medications POCT GLUCOSE METER UNSOLICITED YEAEIRCRoodxvh46/11/2025 4:30 PM EDT TACROLIMUS ZNGXEPkekvgp99/11/2025 4:05 AM EDT AGICLFKNUFIvnidhp86/11/2025 4:05 AM EDT BEHWKNDTNPancxwr67/11/2025 4:05 AM EDT OWTUqqygyk08/11/2025 4:05 AM EDT BASIC METABOLIC OWDVNZjjzcff27/11/2025 4:05 AM EDT CYNKICP8105/11/2025 4:07 PM EDT HISTOLOGY - TISSUE LWECKxdhdjv83/10/2025 3:30 PM EDT BPH with obstruction/lower urinary tract symptoms DC AN ELECTIVE ENDOTRACHEAL ORNQNRZrdhoyn07/10/2025 2:30 PM EDT DC TRURL ELECTROSURG RESCJ PROSTATE BLEED HKGXHKRS60/10/2025 2:23 PM EDT BPH with obstruction/lower urinary tract symptoms POCT GLUCOSE METER UNSOLICITED FYETYTJPvkobst23/10/2025 1:42 PM EDT POCT GLUCOSE METER UNSOLICITED DNYOBNCWfdyphg27/01/2025 7:43 AM EDT GOLD BNIVuvlzgm74/01/2025 3:40 AM EDT EXTRA ACZTZSnayhjq71/01/2025 3:40 AM EDT HBV QUANT TMAPending Smuvcyxwk97/01/2025 3:40 AM EDT HIV RNA, QUANTITATIVE, TMAPending Jnbtwdchk28/01/2025 3:40 AM EDT HCV QUANTITATIVE TMAPending Wvsdhoqhw52/01/2025 3:40 AM EDT TACROLIMUS LEVELPending Omkeyxael20/01/2025 3:40 AM EDT BASIC METABOLIC PANELPending Cyfrmzarg66/01/2025 3:40 AM EDT CBCPending Flvughyoa60/01/2025 3:40 AM EDT POCT GLUCOSE METER UNSOLICITED WLSNPMRArmoadq38/30/2025 8:49 PM EDT WBXJLEBRMGHgwvcyx15/30/2025 4:49 PM EDT Kidney transplanted Encounter for aftercare following kidney transplant POCT GLUCOSE METER UNSOLICITED ZXXPJEYCgqhaen59/30/2025 4:22 PM EDT DEVICE JVTPBSHYxyuans20/30/2025 3:45 PM EDTAEROBIC ORGANISM IDENTIFICATION Isptjhj1505/01/2025 12:00 PM EDT BPH with obstruction/lower urinary tract symptoms NONFERMENTER SUSCEPTIBILITYPending Xypzaijjp01/30/2025 12:00 PM EDT BPH with obstruction/lower urinary tract symptoms POCT GLUCOSE METER UNSOLICITED JSGMAWVQkpbfia83/30/2025 11:20 AM EDT POCT GLUCOSE METER UNSOLICITED KZRSLKTEsvftqc22/30/2025 7:12 AM EDT TACROLIMUS LEVELPending Egbteuedg10/30/2025 4:16 AM EDT BASIC METABOLIC PANELPending Hvdwrzsef83/30/2025 4:16 AM EDT CBCPending Ncpmfligc90/30/2025 4:16 AM EDT POCT GLUCOSE METER UNSOLICITED SQONQETAxeawae07/29/2025 9:02 PM EDT POCT GLUCOSE METER UNSOLICITED HSFXCLODbmszta67/29/2025 4:46 PM EDT VASC US CAROTID ARTERY DUPLEX BUWLRFGZGNdawzop96/29/2025 3:14 PM EDT COMPLETE ECHO (TTE)Jhxnixj5004/30/2025 2:30 PM EDT POCT GLUCOSE METER UNSOLICITED IIGXYJDSyewnym73/29/2025 11:25 AM EDT POCT GLUCOSE METER UNSOLICITED ORXYLLEGltfmkx43/29/2025 7:28 AM EDT TACROLIMUS LEVELPending Kgtlrguim11/29/2025 3:52 AM EDT BASIC METABOLIC PANELPending Vkjssuarj31/29/2025 3:52 AM EDT CBCPending Vxluwgfvs64/29/2025 3:52 AM EDT POCT GLUCOSE METER UNSOLICITED VNDIAKFDgppaiv36/28/2025 8:55 PM EDT POCT GLUCOSE METER UNSOLICITED PFOVOWOGnozaim05/28/2025 4:51 PM EDT POCT GLUCOSE METER UNSOLICITED VOYGXJTWzxpcke80/28/2025 12:11 PM EDT POCT GLUCOSE METER UNSOLICITED SVJUIFXLqcmjsa38/28/2025 6:58 AM EDT BASIC METABOLIC PANELPending Hyviqzfle82/28/2025 4:14 AM EDT CBCPending Hjrhorqfn66/28/2025 4:14 AM EDT LIPID PANELPending Pmeuvogcx89/28/2025 4:14 AM EDT HEMOGLOBIN Z2QThwtznp Pysooowoc59/28/2025 4:14 AM EDT URINE UHBCTRHYyduzjr50/27/2025 10:29 PM EDT CBC WITH AUTO YJLVSAEESDXDYLDP29/27/2025 9:30 PM EDT BASIC METABOLIC OWPJYTVBQ38/27/2025 9:30 PM EDT CBC AND PGKNEKTBJUKRXPUN21/27/2025 9:30 PM EDT PROTIME-TPRPfdnlca45/27/2025 9:30 PM EDT POCT GLUCOSE METER UNSOLICITED YWTDRJPUhzkllu64/27/2025 9:13 PM EDT MR BRAIN W AND WO PAOCJTQBRIQN60/27/2025 5:50 PM EDT BILIRUBIN, CTBNQCXdalanx50/25/2025 8:06 AM EDT Encounter for aftercare following kidney transplant Transplanted kidney Encounter for long-term (current) use of medications SINGLE ANTIGEN CLASS LDKyeeidq19/25/2025 8:06 AM EDT Encounter for aftercare following kidney transplant Immunosuppressive management encounter following kidney transplant SINGLE ANTIGEN CLASS TYtznyuy64/25/2025 8:06 AM EDT Encounter for aftercare following kidney transplant Immunosuppressive management encounter following kidney transplant CBC WITH AUTO WZBLISHREMRBIttolnr90/25/2025 8:06 AM EDT Encounter for aftercare following kidney transplant Transplanted kidney Encounter for long-term (current) use of medications DONOR SPECIFIC NBGCQOLMTccbyix72/25/2025 8:06 AM EDT Encounter for aftercare following kidney transplant Immunosuppressive management encounter following kidney transplant LEELA YHNTYARFDhzamno24/25/2025 8:06 AM EDT Encounter for aftercare following kidney transplant Immunosuppressive management encounter following kidney transplant TACROLIMUS HAPPEMgfeydh21/25/2025 8:06 AM EDT Encounter for aftercare following kidney transplant Transplanted kidney Encounter for long-term (current) use of medications URIC YLOESzalsma52/25/2025 8:06 AM EDT Encounter for aftercare following kidney transplant Transplanted kidney Encounter for long-term (current) use of medications MJJLYWLDABHtewbzx60/25/2025 8:06 AM EDT Encounter for aftercare following kidney transplant Transplanted kidney Encounter for long-term (current) use of medications WCJMKVTZIKylzxvs88/25/2025 8:06 AM EDT Encounter for aftercare following kidney transplant Transplanted kidney Encounter for long-term (current) use of medications COMPREHENSIVE METABOLIC DYPIGPupudwn95/25/2025 8:06 AM EDT Encounter for aftercare following kidney transplant Transplanted kidney Encounter for long-term (current) use of medications CBC AND ZZNJASITOWHWKhgspqd42/25/2025 8:06 AM EDT Encounter for aftercare following kidney transplant Transplanted kidney Encounter for long-term (current) use of medications LEELA CPFBORTRYwleftc48/22/2025 11:36 AM EDT Encounter for aftercare following kidney transplant Immunosuppressive management encounter following kidney transplant URINALYSIS MICROSCOPIC WITH REFLEX DHLUTULGfrfuls59/22/2025 11:07 AM EDT Encounter for aftercare following kidney transplant CREATININE, URINE, LVDEEHFqdhoan67/22/2025 11:07 AM EDT Encounter for aftercare following kidney transplant URINALYSIS WITH REFLEX CMZDZLMScwclkk29/22/2025 11:07 AM EDT Encounter for aftercare following kidney transplant PROTEIN, URINE, KFABYDBjtlemz97/22/2025 11:07 AM EDT Encounter for aftercare following kidney transplant URINE NOFHPPWGsraavj44/22/2025 11:07 AM EDT Encounter for aftercare following kidney transplant BILIRUBIN, JWVBZSXotxhzc09/22/2025 7:20 AM EDT Encounter for aftercare following kidney transplant Transplanted kidney Encounter for long-term (current) use of medications CBC WITH AUTO NLHNXKEXGNPFTqverfs54/22/2025 7:20 AM EDT Encounter for aftercare following kidney transplant Transplanted kidney Encounter for long-term (current) use of medications TACROLIMUS YLSONQwbouhh98/22/2025 7:20 AM EDT Encounter for aftercare following kidney transplant Transplanted kidney Encounter for long-term (current) use of medications URIC QZIAKkcpswp88/22/2025 7:20 AM EDT Encounter for aftercare following kidney transplant Transplanted kidney Encounter for long-term (current) use of medications PLXPFQPOHIYprqtsa91/22/2025 7:20 AM EDT Encounter for aftercare following kidney transplant Transplanted kidney Encounter for long-term (current) use of medications OIMRMFCEKPbbsyru55/22/2025 7:20 AM EDT Encounter for aftercare following kidney transplant Transplanted kidney Encounter for long-term (current) use of medications COMPREHENSIVE METABOLIC URRCHFbvmtrm15/22/2025 7:20 AM EDT Encounter for aftercare following kidney transplant Transplanted kidney Encounter for long-term (current) use of medications CBC AND NXOAUGYUCJFIHiujshd24/22/2025 7:20 AM EDT Encounter for aftercare following kidney transplant Transplanted kidney Encounter for long-term (current) use of medications URINALYSIS MICROSCOPIC WITH REFLEX PJJCESFQngizqm67/19/2025 12:13 PM EDT Encounter for aftercare following kidney transplant CREATININE, URINE, VKOFINBqodjfu06/19/2025 12:13 PM EDT Encounter for aftercare following kidney transplant URINALYSIS WITH REFLEX IWAXQZWYysoxpr64/19/2025 12:13 PM EDT Encounter for aftercare following kidney transplant PROTEIN, URINE, GRAIUEUsoxbtc82/19/2025 12:13 PM EDT Encounter for aftercare following kidney transplant URINE LBJGORFLnmfjnt71/19/2025 12:13 PM EDT Encounter for aftercare following kidney transplant BILIRUBIN, IEZEZJBvojkyb05/19/2025 7:15 AM EDT Encounter for aftercare following kidney transplant Transplanted kidney Encounter for long-term (current) use of medications CBC WITH AUTO QLINHGRQSIDQJlhnfpu55/19/2025 7:15 AM EDT Encounter for aftercare following kidney transplant Transplanted kidney Encounter for long-term (current) use of medications TACROLIMUS ICRQUUlvbsdc94/19/2025 7:15 AM EDT Encounter for aftercare following kidney transplant Transplanted kidney Encounter for long-term (current) use of medications URIC MAVUJydpwvn27/19/2025 7:15 AM EDT Encounter for aftercare following kidney transplant Transplanted kidney Encounter for long-term (current) use of medications RRZMEQDTGKYtpxlum02/19/2025 7:15 AM EDT Encounter for aftercare following kidney transplant Transplanted kidney Encounter for long-term (current) use of medications CFKELFNBYPvrplbn12/19/2025 7:15 AM EDT Encounter for aftercare following kidney transplant Transplanted kidney Encounter for long-term (current) use of medications COMPREHENSIVE METABOLIC ZLKNUYlsyxen02/19/2025 7:15 AM EDT Encounter for aftercare following kidney transplant Transplanted kidney Encounter for long-term (current) use of medications CBC AND ZSXLYUOVZLRYKjmrarp36/19/2025 7:15 AM EDT Encounter for aftercare following kidney transplant Transplanted kidney Encounter for long-term (current) use of medications URINALYSIS MICROSCOPIC WITH REFLEX POAXGVSXcddhoj18/15/2025 8:46 AM EDT Encounter for aftercare following kidney transplant URINALYSIS WITH REFLEX WSTZCDMWpwzoqx90/15/2025 8:46 AM EDT Encounter for aftercare following kidney transplant PROTEIN, URINE, JCCYCYBiyyaiw94/15/2025 8:46 AM EDT Encounter for aftercare following kidney transplant CREATININE, URINE, LAJDXWCfedslz71/15/2025 8:46 AM EDT Encounter for aftercare following kidney transplant URINE WYUPTKYLxxccoh77/15/2025 8:46 AM EDT Encounter for aftercare following kidney transplant BILIRUBIN, STNCQRKlvxtog80/15/2025 7:45 AM EDT Encounter for aftercare following kidney transplant Transplanted kidney Encounter for long-term (current) use of medications CBC WITH AUTO JTUHWCHZORYNOdbptqh21/15/2025 7:45 AM EDT Encounter for aftercare following kidney transplant Transplanted kidney Encounter for long-term (current) use of medications VITAMIN D 25 VCBBHXYLskxbpe32/15/2025 7:45 AM EDT Encounter for aftercare following kidney transplant Hypocalcemia Hypokalemia TACROLIMUS BRUIYZfuyvqu06/15/2025 7:45 AM EDT Encounter for aftercare following kidney transplant Transplanted kidney Encounter for long-term (current) use of medications URIC UNSECfktpsc61/15/2025 7:45 AM EDT Encounter for aftercare following kidney transplant Transplanted kidney Encounter for long-term (current) use of medications NIOZSDNAFXGmqlwes02/15/2025 7:45 AM EDT Encounter for aftercare following kidney transplant Transplanted kidney Encounter for long-term (current) use of medications TRBGXFDGUFraskel12/15/2025 7:45 AM EDT Encounter for aftercare following kidney transplant Transplanted kidney Encounter for long-term (current) use of medications COMPREHENSIVE METABOLIC ZUASZUtntotw42/15/2025 7:45 AM EDT Encounter for aftercare following kidney transplant Transplanted kidney Encounter for long-term (current) use of medications CBC AND UQTEKHWUBQLIBqmnkuh77/15/2025 7:45 AM EDT Encounter for aftercare following kidney transplant Transplanted kidney Encounter for long-term (current) use of medications PTH, EKFUDDTjzhfqo55/15/2025 7:45 AM EDT Encounter for aftercare following kidney transplant Hypocalcemia Hypokalemia URINALYSIS MICROSCOPIC WITH REFLEX YFFFEKRCtsijcx04/12/2025 11:58 AM EDT Immunosuppressive management encounter following kidney transplant URINALYSIS WITH REFLEX MMDYNWIVkcgpqr42/12/2025 11:58 AM EDT Immunosuppressive management encounter following kidney transplant CREATININE, URINE, KGNFEQTuwtkot08/12/2025 11:58 AM EDT Immunosuppressive management encounter following kidney transplant PROTEIN, URINE, SOUEBSVnywxim96/12/2025 11:58 AM EDT Immunosuppressive management encounter following kidney transplant URINE LEKUTJKFfismot74/12/2025 11:58 AM EDT Immunosuppressive management encounter following kidney transplant BILIRUBIN, PZQZRBDkmyqot26/12/2025 7:36 AM EDT Encounter for aftercare following kidney transplant Transplanted kidney Encounter for long-term (current) use of medications SINGLE ANTIGEN CLASS CMExujupo41/12/2025 7:36 AM EDT Encounter for aftercare following kidney transplant Transplanted kidney Encounter for long-term (current) use of medications SINGLE ANTIGEN CLASS TFpvranz30/12/2025 7:36 AM EDT Encounter for aftercare following kidney transplant Transplanted kidney Encounter for long-term (current) use of medications CBC WITH AUTO HIINXQDYHCPEHvluxre40/12/2025 7:36 AM EDT Encounter for aftercare following kidney transplant Transplanted kidney Encounter for long-term (current) use of medications TESTOSTERONE, FREE AND TOTAL, AND HYPUQsxukfv88/12/2025 7:36 AM EDT Encounter for aftercare following kidney transplant Transplanted kidney Encounter for long-term (current) use of medications Encntr screen for malignant neoplasm of genitourinary organs LIPID ZXLXFHmsyffe88/12/2025 7:36 AM EDT Encounter for aftercare following kidney transplant Transplanted kidney Encounter for long-term (current) use of medications HEMOGLOBIN S0KJfltuvi12/12/2025 7:36 AM EDT Encounter for aftercare following kidney transplant Transplanted kidney Encounter for long-term (current) use of medications BK VIRUS, PLASMA, CQEYFIVTFOHLQrnerdq23/12/2025 7:36 AM EDT Encounter for aftercare following kidney transplant Transplanted kidney Encounter for long-term (current) use of medications TACROLIMUS HHPWTFvsgyzb24/12/2025 7:36 AM EDT Encounter for aftercare following kidney transplant Transplanted kidney Encounter for long-term (current) use of medications URIC MYYGQuhhoxi39/12/2025 7:36 AM EDT Encounter for aftercare following kidney transplant Transplanted kidney Encounter for long-term (current) use of medications AYLOBKFVHRMjtouay68/12/2025 7:36 AM EDT Encounter for aftercare following kidney transplant Transplanted kidney Encounter for long-term (current) use of medications BAZMWESEPNnovsng47/12/2025 7:36 AM EDT Encounter for aftercare following kidney transplant Transplanted kidney Encounter for long-term (current) use of medications DONOR SPECIFIC UOBXKVGEIiatfzi14/12/2025 7:36 AM EDT Encounter for aftercare following kidney transplant Transplanted kidney Encounter for long-term (current) use of medications COMPREHENSIVE METABOLIC POMFFCtfxire17/12/2025 7:36 AM EDT Encounter for aftercare following kidney transplant Transplanted kidney Encounter for long-term (current) use of medications CBC AND XJOXMEQUJBYPPgfocgl90/12/2025 7:36 AM EDT Encounter for aftercare following kidney transplant Transplanted kidney Encounter for long-term (current) use of medications CBC WITH AUTO DIFFERENTIALPending Nhdtfyexg11/10/2025 4:13 AM EDT COMPREHENSIVE METABOLIC PANELPending Riwgnlecq76/10/2025 4:13 AM EDT CBC AND LHDYWDXJOAOMEvikvjs99/10/2025 4:13 AM EDT MAGNESIUMPending Yxfdpnaaj01/10/2025 4:13 AM EDT TACROLIMUS LEVELPending Tsqlrkfad73/10/2025 4:13 AM EDT ECG 12-FRZICziuqbo92/09/2025 4:34 PM EDT CHEST BAAPSFDHQPXQBBovuikb40/09/2025 1:13 PM EDTCHEST PHYSIOTHERAPYRoutine 04/10/2025 1:13 PM EDTCHEST JUPCLIMTISYGFLwesmyo11/09/2025 1:13 PM EDTUS KIDNEY TRANSPLANT W GFWWHQIIPKW87/09/2025 8:22 AM EDT MANUAL DIFFERENTIALPending Bliuygofl77/09/2025 4:16 AM EDT CBC WITH AUTO DIFFERENTIALPending Havgyndhz71/09/2025 4:16 AM EDT COMPREHENSIVE METABOLIC PANELPending Ooaihkcil13/09/2025 4:16 AM EDT CBC AND LUZAGZVTLSEGZpglvua76/09/2025 4:16 AM EDT MAGNESIUMPending Envnfanwx33/09/2025 4:16 AM EDT TACROLIMUS LEVELPending Akohuwuil00/09/2025 4:15 AM EDT LAVENDER JDHOworwqf74/08/2025 4:45 PM EDT EXTRA RZOHRCvhokrv90/08/2025 4:45 PM EDT IRON AND TIBCPending Qxrmvypyn73/08/2025 4:45 PM EDT XR CHEST 1 BCJNEjsload84/08/2025 1:58 PM EDT MANUAL DIFFERENTIALPending Wcdxzibfm14/08/2025 4:15 AM EDT CBC WITH AUTO DIFFERENTIALPending Vqgzpobys47/08/2025 4:15 AM EDT COMPREHENSIVE METABOLIC PANELPending Nzbchycaw62/08/2025 4:15 AM EDT CBC AND JFHWZGJUWSXQYzdocpz08/08/2025 4:15 AM EDT MAGNESIUMPending Vmgoeofvc41/08/2025 4:15 AM EDT TACROLIMUS LEVELPending Qhpcxrmbw52/08/2025 4:15 AM EDT CBC WITH AUTO DIFFERENTIALPending Dcwxtbuyl83/07/2025 4:35 AM EDT COMPREHENSIVE METABOLIC PANELPending Ucsfcvfvf67/07/2025 4:35 AM EDT CBC AND NREXHQTXBOFTQrbyufh39/07/2025 4:35 AM EDT PHOSPHORUSPending Sghzsnsai31/07/2025 4:35 AM EDT MAGNESIUMPending Upieeeorn50/07/2025 4:35 AM EDT TACROLIMUS LEVELPending Bbwfmxabm31/07/2025 4:35 AM EDT HEMOGLOBIN AND HEMATOCRIT, EYEIWOYDY03/06/2025 7:06 PM EDT RESPIRATORY VIRUS PCR KGUGWOtnaxbk39/06/2025 10:47 AM EDT TUZMKOPAxmlgbh90/06/2025 8:13 AM EDT MANUAL URFRXMUZQNUUElpwcqs69/06/2025 4:29 AM EDT CBC WITH AUTO WQZFJGFVUVCQJsxxzfm63/06/2025 4:29 AM EDT COMPREHENSIVE METABOLIC MXNIMOahwpks99/06/2025 4:29 AM EDT CBC AND MVNAESZQFFCRCtrterj43/06/2025 4:29 AM EDT GICPGDSPYZWfvqrxq46/06/2025 4:29 AM EDT PSLSITVZYDpxoatj78/06/2025 4:29 AM EDT TACROLIMUS ITPGLEidpgef98/06/2025 4:29 AM EDT XR CHEST 1 AWMMIODX50/06/2025 1:45 AM EDT BLOOD EHKMAEBMpioyzc16/05/2025 7:35 AM EDT BLOOD DKYBUNGBrrmimr14/05/2025 7:35 AM EDT MANUAL RNXRRAELIMOITIAL68/05/2025 3:21 AM EDT CBC WITH AUTO DIFFERENTIALSTAT Add-on04/06/2025 3:21 AM EDT CBC AND DIFFERENTIALSTAT Add-on04/06/2025 3:21 AM EDT HEPATIC FUNCTION PANELAdd-On04/06/2025 3:21 AM EDT LAVENDER QCHGtrpuwr42/05/2025 3:21 AM EDT EXTRA GQEEWPcnajxj92/05/2025 3:21 AM EDT WJJGTQTSULKvxhhrh75/05/2025 3:21 AM EDT ZLZAWCKNEYuoynfh13/05/2025 3:21 AM EDT TACROLIMUS MQXIIBhtlxox81/05/2025 3:21 AM EDT BASIC METABOLIC MRRHPKiluyjj57/05/2025 3:21 AM EDT ORWCUTF8104/05/2025 9:23 PM EDT US KIDNEY TRANSPLANT W YTZXSKYFDBO59/04/2025 9:[address] ABDOMEN PELVIS WO IV CKCVFRKPJLYA96/04/2025 5:44 PM EDT POCT OCCULT BLOOD MUNZEIKDW43/04/2025 5:12 PM EDT URINALYSIS MICROSCOPIC WITH REFLEX WCTLNAYPEQK00/04/2025 4:52 PM EDT URINALYSIS WITH REFLEX FERYEQBJTJZ66/04/2025 4:52 PM EDT URINE YKELLWZPazgerk55/04/2025 4:52 PM EDT ZYAKJUOA06/04/2025 4:51 PM EDT PROTIME-BURSKQC4904/05/2025 4:51 PM EDT LACTIC ACID WITH 4 HOUR LVRMLIBFPG12/04/2025 4:51 PM EDT BASIC METABOLIC JHKQDTXOH20/04/2025 4:51 PM EDT AKTMVNI3204/05/2025 4:51 PM EDT CBCPending Lnwcxkcrf13/03/2025 4:55 AM EDT PHOSPHORUSPending Nldiqjokd19/03/2025 4:55 AM EDT MAGNESIUMPending Jctsgrxhn20/03/2025 4:55 AM EDT BASIC METABOLIC PANELPending Xauywzgop55/03/2025 4:55 AM EDT TACROLIMUS LEVELPending Gpjdkogtg79/03/2025 4:55 AM EDT CBCPending Dwfbvaypy57/02/2025 5:01 AM EDT PHOSPHORUSPending Epthplkjg16/02/2025 5:01 AM EDT MAGNESIUMPending Dqzjhknro69/02/2025 5:01 AM EDT BASIC METABOLIC PANELPending Ryhqbbbzh73/02/2025 5:01 AM EDT TACROLIMUS LEVELPending Jyinxfact00/02/2025 5:01 AM EDT URINE JFTYFQDQekxnft74/01/2025 11:01 AM EDT BLOOD HFIFFVEHyczxra53/01/2025 10:10 AM EDT BLOOD QQPNWMTDooukdu68/01/2025 10:10 AM EDT ELAXQKBPrlftwn70/01/2025 5:38 AM EDT HZIShtfhfw26/01/2025 5:38 AM EDT WSYLLUHAKXNncepos41/01/2025 5:38 AM EDT RUPNZSUZBYwjrlii32/01/2025 5:38 AM EDT BASIC METABOLIC OCWAXHaaqudd97/01/2025 5:38 AM EDT TACROLIMUS PCCRMDasbtxp05/01/2025 5:38 AM EDT US KIDNEY TRANSPLANT W GGMNQCXIkfqybc71/31/2025 11:10 AM EDT YDEHhkbvxk22/31/2025 4:18 AM EDT TIWNXPFMTQTinitzz91/31/2025 4:18 AM EDT YETETWPWZRkhlepd49/31/2025 4:18 AM EDT BASIC METABOLIC IJNVBHcckqht16/31/2025 4:18 AM EDT QZPRIHMPPoxhfba90/31/2025 4:18 AM EDT IRON AND AXYTZvrlggx49/31/2025 4:18 AM EDT ORPGGWMCQHOSN84/31/2025 12:13 AM EDT HIV COMBO 6ZXYLO6704/01/2025 12:13 AM EDT HCV QUANTITATIVE TBRPuzoekf67/31/2025 12:13 AM EDT HEPATITIS C ILKJTSCQVZLS41/31/2025 12:13 AM EDT HEPATITIS B SURFACE TGRLXTAMTTZ89/31/2025 12:13 AM EDT HEPATITIS B SURFACE ANTIBODY GVMCKDPZO57/31/2025 12:13 AM EDT HEPATITIS B CORE ANTIBODY, WLAMWKDFZ20/31/2025 12:13 AM EDT NYKBTWV6803/31/2025 8:49 PM EDT BASIC METABOLIC TDLIWUPUR10/30/2025 8:49 PM EDT URINE ETAWHIHNlqfcuz71/30/2025 6:41 PM EDT ESRD (end stage renal disease) (CMS/HCC) ANESTHESIA PERIPHERAL IV SMKDHVMKIHpqsgtr69/30/2025 6:38 PM EDT DC AN ELECTIVE ENDOTRACHEAL VFMQBXFtssopd55/30/2025 6:36 PM EDT TRANSPLANT, KIDNEY, DONOR03/31/2025 6:28 PM EDT esrd XZSPZCRBMMDAS90/30/2025 5:37 PM EDT HIV COMBO 5MBOPI0403/31/2025 5:37 PM EDT HCV QUANTITATIVE QTIIgllljh99/30/2025 5:37 PM EDT HEPATITIS C EILNBRDBNKJU44/30/2025 5:37 PM EDT HEPATITIS B SURFACE QTJFHVBJRBI00/30/2025 5:37 PM EDT HEPATITIS B SURFACE ANTIBODY UHXBOYIAW26/30/2025 5:37 PM EDT HEPATITIS B CORE ANTIBODY, YDVYCEGVE95/30/2025 5:37 PM EDT ECG 12-VKNQKUVX37/30/2025 3:53 PM EDT CBC WITH AUTO AFSSMXIKIBVDUILY58/30/2025 3:49 PM EDT TYPE AND XRGGPBVeouumz59/30/2025 3:49 PM EDT PROTIME-UCSTZRX8803/31/2025 3:49 PM EDT SOXUPVQKNJGRDR73/30/2025 3:49 PM EDT YZDCCMEHXWORW75/30/2025 3:49 PM EDT CYTOMEGALOVIRUS ANTIBODY, MYQUCAH1803/31/2025 3:49 PM EDT COMPREHENSIVE METABOLIC MYPQXJXAJ85/30/2025 3:49 PM EDT CBC AND RBKBUYJXHCRLXDEH36/30/2025 3:49 PM EDT HFPLTBOI86/30/2025 3:49 PM EDT XR CHEST 1 UNZLPWEO31/30/2025 3:40 PM EDT DONOR JNCVZQBKHTSpblmil61/21/2025 1:30 PM EDT Pre-transplant evaluation for kidney transplant SINGLE ANTIGEN CLASS CNFcsbkek63/21/2025 1:30 PM EDT Pre-transplant evaluation for kidney transplant SINGLE ANTIGEN CLASS XHyqvayw31/21/2025 1:30 PM EDT Pre-transplant evaluation for kidney transplant URINALYSIS WITH HFHAOQQRGGDZrdaobh04/21/2025 1:30 PM EDT Chronic kidney disease, stage IV (severe) (CMS/HCC) Hypertension, essential Pre-transplant evaluation for kidney transplant PROTEIN, URINE, XUJYQPRqreqsk23/21/2025 1:30 PM EDT Chronic kidney disease, stage IV (severe) (CMS/HCC) Hypertension, essential Pre-transplant evaluation for kidney transplant CREATININE, URINE, QFKZAXTkfhjrw90/21/2025 1:30 PM EDT Chronic kidney disease, stage IV (severe) (CMS/HCC) Hypertension, essential Pre-transplant evaluation for kidney transplant from Last 3 Months Results * (ABNORMAL) CBC auto differential (05/24/2025 3:41 PM EDT) Only the most recent of15 resultswithin the time period is included. ComponentValueRef RangeTest MethodAnalysis TimePerformed AtPathologist Signature Auto WBC14.51(H)4.00 - 10.60 10*3/uL05/24/2025 4:11 PM [facility] ([facility])RBC3.24(L)4.20 - 5.70 10*6/uL05/24/2025 4:11 PM [facility] ([facility])Pfrynvbjio91.8(L)13.0 - 17.0 g/dL05/24/2025 4:11 PM [facility] ([facility])Axqkfhmokf70.4(L)39.0 - 50.0 %05/24/2025 4:11 PM [facility] ([facility])WCQ976.0(H)82.0 - 98.0 fL05/24/2025 4:11 PM [facility] ([facility])MCH33.3(H)27.0 - 33.0 pg05/24/2025 4:11 PM [facility] ([facility]) MCHC33.332.0 - 35.0 g/dL05/24/2025 4:11 PM [facility] ([facility])RDW16.0 (H)11.5 - 15.0 %05/24/2025 4:11 PM [facility] ([facility])Neutrophils % 92.7(H)40.0 - 72.0 %05/24/2025 4:11 PM [facility] ([facility])Lymphocytes %2.9(L)20.0 - 45.0 %05/24/2025 4:11 PM [facility] ([facility])Monocytes % 3.2(L)5.0 - 12.0 %05/24/2025 4:11 PM [facility] ([facility])Eosinophils % 0.10.0 - 6.0 %05/24/2025 4:11 PM [facility] ([facility])Basophils %0.10.0 - 1.0 %05/24/2025 4:11 PM [facility] ([facility])Neutrophils Ztegqsmy87.46 (H)1.60 - 7.60 10*3/uL05/24/2025 4:11 PM [facility] ([facility]) Lymphocytes Absolute0.42(L)1.20 - 4.00 10*3/uL05/24/2025 4:11 PM [facility] ([facility])Monocytes Absolute0.460.10 - 1.00 10*3/uL05/24/2025 4:11 PM [facility] ([facility])Eosinophils Absolute0.010.00 - 0.50 10*3/uL 05/24/2025 4:11 PM [facility] ([facility])Basophils Absolute0.020.00 - 0.20 10*3/uL05/24/2025 4:11 PM [facility])Wnlftaphd142262 - 400 10*3/uL05/24/2025 4:11 PM [facility] ([facility])nRBC %0.00 % 05/24/2025 4:11 PM [facility])Immature Granulocytes %1.00.0 - 1.0 %05/24/2025 4:11 PM [facility] ([facility])Immature Granulocytes Absolute0.140.00 - 0.20 10*3/uL05/24/2025 4:11 PM [facility]) Specimen (Source)Anatomical Location / LateralityCollection Method / Volume Collection TimeReceived TimeBloodVenous blood specimen / UnknownArterial Line / Sxvlxcu9905/24/2025 3:41 PM EDT1 3:41 PM EDT Narrative Authorizing ProviderResult TypeResult StatusJojackchaparro Gilford CNPLAB BLOOD ORDERABLESFinal ResultPerforming OrganizationAddressCity/State/ZIP CodePhone Number [facility] ([facility]) [address] [place] [address] * (ABNORMAL) Comprehensive metabolic panel (05/24/2025 3:41 PM EDT) Only the most recent of13 resultswithin the time period is included. ComponentValueRef RangeTest MethodAnalysis TimePerformed AtPathologist Signature Pktqxo985846 - 145 mmol/L1 4:23 PM [facility] ([facility]) Potassium4.13.5 - 5.1 mmol/L1 4:23 PM [facility] ([facility]) Puioqtbh25371 - 107 mmol/L1 4:23 PM [facility] ([facility])CO227 21 - 31 mmol/L1 4:23 PM [facility] ([facility])Anion Bvo211 - 20 mmol/L1 4:23 PM [facility] ([facility])BUN53(H)7 - 25 mg/dL 05/24/2025 4:23 PM [facility] ([facility])Creatinine2.54(H)0.70 - 1.30 mg/dL05/24/2025 4:23 PM [facility] ([facility])BUN/Creatinine Ratio20.9 05/24/2025 4:23 PM [facility] ([facility])Yojdujb830(H)70 - 100 mg/dL 05/24/2025 4:23 PM [facility] ([facility])Calcium7.6(L)8.6 - 10.3 mg/dL 05/24/2025 4:23 PM [facility] ([facility])DRR8339 - 39 U/L1 4:23 PM [facility] ([facility])ALT (SGPT)117 - 52 U/L1 4:23 PM [facility] ([facility])Alkaline Usdaydeghjd9762 - 104 U/L1 4:23 PM EDT [facility] ([facility])Total Protein5.3(L)6.0 - 8.3 g/dL05/24/2025 4:23 PM [facility] ([facility])Albumin3.1(L)3.5 - 5.7 g/dL05/24/2025 4:23 PM EDT [facility] ([facility])Total Bilirubin0.50.3 - 1.0 mg/dL05/24/2025 4:23 PM [facility] ([facility])eGFR26.5(L)>60.0 mL/min/1.73m* 4:23 PM [facility] ([facility])Comment:[facility]???s estimated glomerular filtration rate (eGFR) will [...] disproportionately affect any one group of individuals.Specimen (Source) Anatomical Location / LateralityCollection Method / VolumeCollection Time Received TimeBloodVenous blood specimen / UnknownArterial Line / Unknown 05/24/2025 3:41 PM EDT1 3:41 PM EDT Narrative Authorizing ProviderResult TypeResult StatusJojazmin Briseno [facility]ITALLAB BLOOD ORDERABLESFinal ResultPerforming OrganizationAddressCity/State/ZIP CodePhone Number [facility] ([facility]) [address] [place], [place] [id number] * (ABNORMAL) Urinalysis microscopic with reflex culture (05/16/2025 10:39 AM EDT) Only the most recent of6 resultswithin the time period is included. ComponentValueRef RangeTest MethodAnalysis TimePerformed AtPathologist Signature RBC, Urine>20(A)None Seen, 0-2 /HPF10/ 11:12 AM [facility] ([facility])WBC, Urine>50(A)None Seen, 0-2 /HPF05/16/2025 11:12 AM [facility] ([facility])Squamous Epithelial, UrineNone SeenNone Seen, Occasional, Few /LPF 05/16/2025 11:12 AM [facility] ([facility])Mucus, UrineOccasionalNone Seen, Occasional, Few /LP05/16/2025 11:12 AM [facility] ([facility])WBC Clumps, UrinePresent(A)None Seen /HPF05/16/2025 11:12 AM [facility] ([facility])Specimen (Source)Anatomical Location / LateralityCollection Method / VolumeCollection TimeReceived TimeUrineUrine specimen obtained by clean catch procedure / UnknownNon-blood Collection / Upzheip8805/16/2025 10:39 AM EDT 05/16/2025 10:47 AM EDT Narrative Authorizing ProviderResult TypeResult StatusKunal Lobito FAJARDO URINE ORDERABLES Final ResultPerforming OrganizationAddressCity/State/ZIP CodePhone Number [facility] ([facility]) [address] [place] [address] * (ABNORMAL) Urinalysis with reflex culture (05/16/2025 10:39 AM EDT) Only the most recent of6 resultswithin the time period is included. ComponentValueRef RangeTest MethodAnalysis TimePerformed AtPathologist Signature Color, UrineDark-Yellow(A)Colorless, Yellow, Light-Wvsbmq2605/16/2025 11:05 AM EDT [facility] ([facility])Clarity, UrineCloudy(A)Clear05/16/2025 11:05 AM EDT [facility] ([facility])pH, Urine6.55.0 - 8.0 pH05/16/2025 11:05 AM [facility] ([facility])Leukocytes, UrineLarge(A)Qxrfckdv27/15/2025 11:05 AM EDT [facility] ([facility])Nitrite, ZnqajVgbxponbEafbkvdf56/15/2025 11:05 AM EDT [facility] ([facility])Protein, Hmnxy300(A)Negative mg/dL05/16/2025 11:05 AM [facility] ([facility])Glucose, UrineNormalNormal mg/dL05/16/2025 11:05 AM [facility] ([facility])Bilirubin, XdswlQcyscjjtRfrfspfo41/15/2025 11:05 AM [facility] ([facility])Specific [place], Urine1.0141.010 - 1.030 05/16/2025 11:05 AM [facility] ([facility])Ketones, UrineNegativeNegative mg/dL05/16/2025 11:05 AM [facility] ([facility])Blood, UrineLarge(A) Zlgjwkde63/15/2025 11:05 AM [facility] ([facility])Urobilinogen, Urine NormalNormal mg/dL05/16/2025 11:05 AM [facility] ([facility])Specimen (Source)Anatomical Location / LateralityCollection Method / VolumeCollection TimeReceived TimeUrineUrine specimen obtained by clean catch procedure / Unknown Non-blood Collection / Wmkottc8305/16/2025 10:39 AM EDT1 10:47 AM EDT Narrative Authorizing ProviderResult TypeResult StatusKunal Lobito FAJARDO URINE ORDERABLES Final ResultPerforming OrganizationAddressCity/State/ZIP CodePhone Number [facility] ([facility]) [address] [place] [address] * Protein, urine, random (05/16/2025 10:39 AM EDT) Only the most recent of6 resultswithin the time period is included. ComponentValueRef RangeTest MethodAnalysis TimePerformed AtPathologist Signature Protein, Ur154.4mg/dL05/16/2025 11:20 AM [facility] ([facility])Comment: There are no established reference values for random urine specimens.Specimen (Source)Anatomical Location / LateralityCollection Method / VolumeCollection TimeReceived TimeUrineUrine specimen obtained by clean catch procedure / Unknown Non-blood Collection / Pmbztan6305/16/2025 10:39 AM EDT1 10:47 AM EDT Narrative Authorizing ProviderResult TypeResult StatusJayjay FAJARDO URINE ORDERABLES Final ResultPerforming OrganizationAddressCity/State/ZIP CodePhone Number [facility]) [address] [place] [phone] * Creatinine, urine, random (05/16/2025 10:39 AM EDT) Only the most recent of6 resultswithin the time period is included. ComponentValueRef RangeTest MethodAnalysis TimePerformed AtPathologist Signature Creatinine, Ur78.026 - 299 mg/dL05/16/2025 11:20 AM [facility])Specimen (Source)Anatomical Location / LateralityCollection Method / VolumeCollection TimeReceived TimeUrineUrine specimen obtained by clean catch procedure / UnknownNon-blood Collection / Zejxvwn3405/16/2025 10:39 AM EDT 05/16/2025 10:47 AM EDT Narrative Authorizing ProviderResult TypeResult StatusJayjay FAJARDO URINE ORDERABLES Final ResultPerforming OrganizationAddressCity/State/ZIP CodePhone Number [facility]) [address] [place] [phone] * (ABNORMAL) Urine culture, routine (05/16/2025 10:39 AM EDT) Only the most recent of9 resultswithin the time period is included. ComponentValueRef RangeTest MethodAnalysis TimePerformed AtPathologist Signature Urine Culture>100,000 CFU/Ml Pseudomonas aeruginosa(A) JES 05/18/2025 8:18 AM [facility] ([facility])Specimen (Source)Anatomical Location / LateralityCollection Method / VolumeCollection TimeReceived TimeUrine Urine specimen obtained by clean catch procedure / UnknownNon-blood Collection / Svqlhmn5505/16/2025 10:39 AM EDT1 10:47 AM EDT Narrative OrganismAntibioticMethodSusceptibilityPseudomonas aeruginosaCefepimeMIC 8 ug/ml: Susceptible Pseudomonas aeruginosaCiprofloxacinMIC 1 ug/ml: Intermediate Pseudomonas aeruginosaLevofloxacinMIC 2 ug/ml: Intermediate Pseudomonas aeruginosaMeropenemMIC 2 ug/ml: Susceptible Pseudomonas aeruginosaPiperacillin + TazobactamMIC 32/4 ug/ml: Intermediate Pseudomonas aeruginosaTobramycinMIC <=2 ug/ml: Susceptible Comment:If piperacillin-tazobactam JES value is >16/4 ug/ml alternative therapy is recommended.Authorizing ProviderResult TypeResult StatusJayjay Robin [facility] MICROBIOLOGY - GENERAL ORDERABLESFinal ResultPerforming OrganizationAddress City/State/ZIP CodePhone Number [facility] ([facility]) [address] [place] [address] * HBV QUANT TMA (05/16/2025 7:24 AM EDT) Only the most recent of2 resultswithin the time period is included. ComponentValueRef RangeTest MethodAnalysis TimePerformed AtPathologist Signature HBV TMA InterpNot DetectedNot Vinezdme71/16/2025 3:01 PM [facility] ([facility])HBV TMA Nwifjjhiakwj60/16/2025 3:01 PM [facility] ([facility]) Comment:Not DetectedHBV Quantitative 05/17/2025 3:01 PM [facility] ([facility])Comment:Not DetectedSpecimen (Source)Anatomical Location / Laterality Collection Method / VolumeCollection TimeReceived TimeBloodVenous blood specimen / UnknownVenipuncture / Vgqaxie6905/16/2025 7:24 AM EDT1 8:04 AM EDT Narrative [facility] ([facility]) - 05/17/2025 3:01 PM EDT The Aptima HBV Quant assay is a real-time shank pinner-mediated amplification (TMA) test which has a dynamic [...] blood or blood products. Authorizing ProviderResult TypeResult StatusGrazyna Briseno [facility] MOLECULAR DIAGNOSTICS ORDERABLESFinal ResultPerforming OrganizationAddressCity/State/ZIP CodePhone Number [facility] ([facility]) [address] [place] [address] * Single antigen class II (05/16/2025 7:24 AM EDT) Only the most recent of4 resultswithin the time period is included. ComponentValueRef RangeTest MethodAnalysis TimePerformed AtPathologist Signature Tested [id number]/21/2025 12:52 PM [facility]AC) CommentsNo Class II donor specific antibody lvurnplcao77/21/2025 12:52 PM EDT [facility] TISSUE TYP[facility] (HISTOTRAC)Test MethodClass II Single Uewlmtx0905/22/2025 12:52 PM EDTUT TISSUE TYPING (HISTOTRAC)Comment:Class II Antigen MicrobeadsSigned BySigned by Ghazal Stovall CHT([facility]) ALYSSA([facility]), Plant Attendant Or Assistant Operator Transplant Immunology 05/22/2025 12:52 PM EDTUT TISSUE TYPING (HISTOTRAC)Specimen (Source)Anatomical Location / LateralityCollection Method / VolumeCollection TimeReceived Time BloodVenous blood specimen / UnknownVenipuncture / Lyewatq2305/16/2025 7:24 AM EDT1 7:54 AM EDT Narrative Authorizing ProviderResult TypeResult StatusJojazmin Briseno [facility] BLOOD ORDERABLESFinal ResultPerforming OrganizationAddressCity/State/ZIP CodePhone Number [facility] TISSUE TYPING (HISTOTRAC) [address] [place] [address], * Single antigen class I (05/16/2025 7:24 AM EDT) Only the most recent of4 resultswithin the time period is included. ComponentValueRef RangeTest MethodAnalysis TimePerformed AtPathologist Signature Tested [id number]/21/2025 12:52 PM EDTCH[facility]OTRAC) Test MethodClass I Single Mhxnizd6805/22/2025 12:52 PM EDTCH[facility] ([facility]OTRAC)Signed BySigned by Ghazal Stovall CHT([facility]) ALYSSA([facility]), Plant Attendant Or Assistant Operator Transplant Ektroqvkvi12/21/2025 12:52 PM EDTUT TISSUE TYPING (HISTOTRAC) Comment:Class I Antigen MicrobeadsCommentsNo Class I donor specific antibody ilxdwvrxyb39/21/2025 12:52 PM [facility] TISSUE TYPING (HISTOTRAC)Specimen (Source) Anatomical Location / LateralityCollection Method / VolumeCollection Time Received TimeBloodVenous blood specimen / UnknownVenipuncture / Unknown 05/16/2025 7:24 AM EDT1 7:54 AM EDT Narrative Authorizing ProviderResult TypeResult StatusJojazmin Briseno [facility] [facility] BLOOD ORDERABLESFinal ResultPerforming OrganizationAddressCity/State/ZIP CodePhone Number [facility] TISSUE TYPING (HISTOTRAC) [address] [place] [address], [place] [phone] * HCV QUANTITATIVE TMA (05/16/2025 7:24 AM EDT) Only the most recent of4 resultswithin the time period is included. ComponentValueRef RangeTest MethodAnalysis TimePerformed AtPathologist Signature HCV TMA InterpNot DetectedNot Drgbekcg28/15/2025 3:27 PM [facility] ([facility])HCV Quantitative TMA05/16/2025 3:27 PM [facility] ([facility]) Comment:Not DetectedHCV Quantitative 05/16/2025 3:27 PM [facility] ([facility])Comment:Not DetectedSpecimen (Source)Anatomical Location / Laterality Collection Method / VolumeCollection TimeReceived TimeBloodVenous blood specimen / UnknownVenipuncture / Imuflwz9005/16/2025 7:24 AM EDT1 8:04 AM EDT Narrative [facility] ([facility]) - 05/16/2025 3:27 PM EDT The Aptima HCV Quant Dx assay is a real-time shank pinner-mediated amplification (TMA) test which has a dynamic [...] blood or blood products. Authorizing ProviderResult TypeResult StatusJoRiverside [facility] MOLECULAR DIAGNOSTICS ORDERABLESFinal ResultPerforming OrganizationAddressCity/State/ZIP CodePhone Number [facility] ([facility]) [address] [place] [address] * HIV RNA, quantitative, TMA (05/16/2025 7:24 AM EDT) Only the most recent of2 resultswithin the time period is included. ComponentValueRef RangeTest MethodAnalysis TimePerformed AtPathologist Signature HIV-1 InterpretationNot DetectedNot Fhzldawb38/21/2025 7:36 AM [facility])HIV Quantitative RNA05/22/2025 7:36 AM [facility] ([facility]) Comment:Not DetectedHIV Quantitative RNA 05/22/2025 7:36 AM [facility] ([facility])Comment:Not DetectedSpecimen (Source)Anatomical Location / LateralityCollection Method / VolumeCollection TimeReceived TimeBloodVenous blood specimen / UnknownVenipuncture / Lruqmxc0405/16/2025 7:24 AM EDT1 8:04 AM EDT Narrative [facility] ([facility]) - 05/22/2025 7:36 AM EDT The Aptima HIV Quant assay is a real-time shank pinner-mediated amplification (TMA) test which has a dynamic [...] of HIV-1 infection. Authorizing ProviderResult TypeResult StatusJochaparro [facility] BLOOD ORDERABLESFinal ResultPerforming OrganizationAddressCity/State/ZIP CodePhone Number [facility] ([place]) [address] [place] [address] * Tacrolimus level (05/16/2025 7:24 AM EDT) Only the most recent of19 resultswithin the time period is included. ComponentValueRef RangeTest MethodAnalysis TimePerformed AtPathologist Signature Tacrolimus Lvl5.25.0 - 20.0 ng/mL05/16/2025 9:39 AM [facility] ([facility])Comment:The CM SHIRRING MACHINE OPERATOR Tacrolimus assay is a delayed one-step immunoassay for the quantitative determination of tacrolimus in human whole blood using the chemiluminescent microparticle immunoassay (CMIA) technology with flexible assay protocols, referred to as Chemiflex.Specimen (Source) Anatomical Location / LateralityCollection Method / VolumeCollection Time Received TimeBloodVenous blood specimen / UnknownVenipuncture / Unknown 05/16/2025 7:24 AM EDT1 8:03 AM EDT Narrative Authorizing ProviderResult TypeResult StatusJojazmin Briseno [facility] BLOOD ORDERABLESFinal ResultPerforming OrganizationAddressCity/State/ZIP CodePhone Number [facility] ([facility]) [address] [place] [address] * (ABNORMAL) Manual Differential (05/16/2025 7:24 AM EDT) Only the most recent of5 resultswithin the time period is included. ComponentValueRef RangeTest MethodAnalysis TimePerformed AtPathologist Signature Immature Granulocytes %0.70.0 - 1.0 %05/16/2025 9:42 AM [facility] ([facility])Neutrophils Icsdaeod71.1(H)1.6 - 7.6 10*3/uL05/16/2025 9:42 AM [facility] ([facility])Lymphocytes Absolute1.11(L)1.20 - 4.00 10*3/uL05/16/2025 9:42 AM [facility] ([facility])Monocytes Absolute1.06(H)0.10 - 1.00 10*3/uL05/16/2025 9:42 AM [facility] ([facility])Eosinophils Absolute0.00 0.00 - 0.50 10*3/uL05/16/2025 9:42 AM [facility] ([facility])Basophils Absolute0.020.00 - 0.20 10*3/uL05/16/2025 9:42 AM [facility] ([facility]) Neutrophils %85.9(H)40.0 - 72.0 %05/16/2025 9:42 AM [facility] ([facility])Lymphocytes %6.8(L)20.0 - 45.0 %05/16/2025 9:42 AM [facility] ([facility])Monocytes %6.55.0 - 12.0 %05/16/2025 9:42 AM [facility] ([facility])Eosinophils %0.00.0 - 6.0 %05/16/2025 9:42 AM [facility] ([facility])Basophils %0.10.0 - 1.0 %05/16/2025 9:42 AM [facility] ([facility])Immature Granulocytes Absolute0.110.00 - 0.20 10*3/uL05/16/2025 9:42 AM [facility] ([facility])Specimen (Source)Anatomical Location / Laterality Collection Method / VolumeCollection TimeReceived TimeBloodVenous blood specimen / UnknownVenipuncture / Cfehkvm9305/16/2025 7:24 AM EDT1 8:04 AM EDT Narrative Authorizing ProviderResult TypeResult StatusJordchaparro [facility] BLOOD ORDERABLESFinal ResultPerforming OrganizationAddressCity/State/ZIP CodePhone Number [facility] ([facility]) [address] [place] [address] * Uric acid (05/16/2025 7:24 AM EDT) Only the most recent of6 resultswithin the time period is included. ComponentValueRef RangeTest MethodAnalysis TimePerformed AtPathologist Signature Uric Acid6.74.4 - 7.6 mg/dL05/16/2025 9:11 AM [facility] ([facility]) Specimen (Source)Anatomical Location / LateralityCollection Method / Volume Collection TimeReceived TimeBloodVenous blood specimen / UnknownVenipuncture / Udsnqaa5105/16/2025 7:24 AM EDT1 8:02 AM EDT Narrative Authorizing ProviderResult TypeResult StatusGarzyna Briseno [facility] BLOOD ORDERABLESFinal ResultPerforming OrganizationAddressCity/State/ZIP CodePhone Number [facility] ([facility]) [address] [place] [address] * Phosphorus (05/16/2025 7:24 AM EDT) Only the most recent of15 resultswithin the time period is included. ComponentValueRef RangeTest MethodAnalysis TimePerformed AtPathologist Signature Phosphorus2.52.5 - 5.0 mg/dL05/16/2025 8:45 AM [facility] ([facility]) Specimen (Source)Anatomical Location / LateralityCollection Method / Volume Collection TimeReceived TimeBloodVenous blood specimen / UnknownVenipuncture / Krjjzyx1305/16/2025 7:24 AM EDT1 8:02 AM EDT Narrative Authorizing ProviderResult TypeResult StatusGrazyna HowardValley Behavioral [facility] BLOOD ORDERABLESFinal ResultPerforming OrganizationAddressCity/State/ZIP CodePhone Number [facility] ([facility]) [address] [place] [address] * (ABNORMAL) Magnesium (05/16/2025 7:24 AM EDT) Only the most recent of18 resultswithin the time period is included. ComponentValueRef RangeTest MethodAnalysis TimePerformed AtPathologist Signature Magnesium1.8(L)1.9 - 2.7 mg/dL05/16/2025 8:45 AM [facility] ([facility]) Specimen (Source)Anatomical Location / LateralityCollection Method / Volume Collection TimeReceived TimeBloodVenous blood specimen / UnknownVenipuncture / Gtplhzi4905/16/2025 7:24 AM EDT1 8:02 AM EDT Narrative Authorizing ProviderResult TypeResult StatusGrazyna Briseno [facility] BLOOD ORDERABLESFinal ResultPerforming OrganizationAddressCity/State/ZIP CodePhone Number [facility] ([facility]) [address] [place] [address] * Bilirubin, direct (05/16/2025 7:24 AM EDT) Only the most recent of6 resultswithin the time period is included. ComponentValueRef RangeTest MethodAnalysis TimePerformed AtPathologist Signature Bilirubin, Direct0.10 - 0.2 mg/dL05/16/2025 8:45 AM [facility] ([facility])Specimen (Source)Anatomical Location / LateralityCollection Method / VolumeCollection TimeReceived TimeBloodVenous blood specimen / Unknown Venipuncture / Rjlydvd3205/16/2025 7:24 AM EDT1 8:02 AM EDT Narrative Authorizing ProviderResult TypeResult StatusJojazmin Briseno [facility] BLOOD ORDERABLESFinal ResultPerforming OrganizationAddressCity/State/ZIP CodePhone Number [facility]) [address] [place] [address] * (ABNORMAL) POCT glucose meter (05/12/2025 4:30 PM EDT) Only the most recent of16 resultswithin the time period is included. ComponentValueRef RangeTest MethodAnalysis TimePerformed AtPathologist Signature Glucose HLW432(H)70 - 105 mg/dL05/12/2025 4:41 PM [facility] ([facility]) Comment:srabeeSpecimen (Source)Anatomical Location / LateralityCollection Method / VolumeCollection TimeReceived TimeBloodCapillary blood specimen / Unknown 05/12/2025 4:30 PM EDT1 4:41 PM EDT Narrative [facility]) - 05/12/2025 4:41 PM EDT Waived Testing in the ED is performed under the ED CLIA certificate #[id number]. Authorizing ProviderResult TypeResult StatusGhazal Tan [facility] BLOOD ORDERABLES Final ResultPerforming OrganizationAddressCity/State/ZIP CodePhone Number [facility]) [address] [place] [address] * (ABNORMAL) CBC (05/12/2025 4:05 AM EDT) Only the most recent of13 resultswithin the time period is included. ComponentValueRef RangeTest MethodAnalysis TimePerformed AtPathologist Signature Auto WBC12.22(H)4.00 - 10.60 10*3/uL05/12/2025 4:44 AM [facility] ([facility])RBC3.01(L)4.20 - 5.70 10*6/uL05/12/2025 4:44 AM [facility] ([facility])Hemoglobin9.8(L)13.0 - 17.0 g/dL05/12/2025 4:44 AM [facility] ([facility])Nqauvzlfaw48.0(L)39.0 - 50.0 %05/12/2025 4:44 AM [facility] ([facility])FIL004.0(H)82.0 - 98.0 fL05/12/2025 4:44 AM [facility] ([facility])MCH32.627.0 - 33.0 pg05/12/2025 4:44 AM [facility] ([facility]) MCHC31.6(L)32.0 - 35.0 g/dL05/12/2025 4:44 AM [facility] ([facility])RDW 17.3(H)11.5 - 15.0 %05/12/2025 4:44 AM [facility] ([facility])Hbtcljega302 (L)150 - 400 10*3/uL05/12/2025 4:44 AM [facility] ([facility])Specimen (Source)Anatomical Location / LateralityCollection Method / VolumeCollection TimeReceived TimeBloodVenous blood specimen / UnknownVenipuncture / Unknown 05/12/2025 4:05 AM EDT1 4:34 AM EDT Narrative Authorizing ProviderResult TypeResult StatusGhazal Tan [facility] BLOOD ORDERABLES Final ResultPerforming OrganizationAddressCity/State/ZIP CodePhone Number [facility] ([facility]) [address] [place], [place] [phone] * (ABNORMAL) Basic metabolic panel (05/12/2025 4:05 AM EDT) Only the most recent of13 resultswithin the time period is included. ComponentValueRef RangeTest MethodAnalysis TimePerformed AtPathologist Signature Ppjtdd954761 - 145 mmol/L1 5:01 AM [facility] ([facility]) Potassium3.73.5 - 5.1 mmol/L1 5:01 AM [facility] ([facility]) Hfmorhlk46702 - 107 mmol/L1 5:01 AM [facility] ([facility])CO226 21 - 31 mmol/L1 5:01 AM [facility] ([facility])BUN26(H)7 - 25 mg/dL05/12/2025 5:01 AM [facility] ([facility])Creatinine1.48(H)0.70 - 1.30 mg/dL05/12/2025 5:01 AM [facility] ([facility])Tkaaslj4751 - 100 mg/dL05/12/2025 5:01 AM [facility] ([facility])Calcium7.3(L)8.6 - 10.3 mg/dL05/12/2025 5:01 AM [facility] ([facility])Anion Rjb589 - 20 mmol/L 05/12/2025 5:01 AM [facility] ([facility])eGFR50.6(L)>60.0 mL/min/1.73m*2 05/12/2025 5:01 AM [facility] ([facility])Comment:[facility]???s estimated glomerular filtration rate (eGFR) will no longer include consideration of race in its calculation. The National Kidney Foundation???s eGFR Task Force developed new recommendations for the estimation of the glomerular filtration rate in the [place] They recommend immediate implementation of the new equation refit without the race variable in all la boratories because the calculation does not include race. In addition to not including race in the calculation and reporting, it included diversity in its development, and has acceptable performance characteristics and potential consequences that do not disproportionately affect any one group of individuals. BUN/Creatinine Ratio17. 5:01 AM [facility] ([facility])Specimen (Source)Anatomical Location / LateralityCollection Method / VolumeCollection TimeReceived TimeBloodVenous blood specimen / UnknownVenipuncture / Unknown 05/12/2025 4:05 AM EDT1 4:35 AM EDT Narrative Authorizing ProviderResult TypeResult StatusGhazal FAJARDO BLOOD ORDERABLES Final ResultPerforming OrganizationAddressCity/State/ZIP CodePhone Number [facility] ([place]) [address] [place] [address] * Histology - tissue exam (05/11/2025 3:30 PM EDT)ComponentValueRef RangeTest MethodAnalysis TimePerformed AtPathologist SignatureCase ReportSurgical Pathology ?Case: [id number] ? Authorizing Provider: ??Ghazal Tan MD ?Collected: ? 05/11/2025 1530 ? Ordering Location: ? [facility] Main Operating Room ?? Received: ?05/14/2025722 ? Pathologist: ? Nicole Womack MD ? Specimen: ?Prostate, PROSTATE CHIPS ? 05/18/2025 10:45 AM [facility] ([place])Final DiagnosisA. Prostate, transurethral resection: - Glandular and stromal hyperplasia. - Benign urothelium with von Brunn's nests. - Acute and chronic inflammation. 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 Prostate. Received in formalin labeled Christal Suh, prostate chips , are 7 g of diaz rubbery soft tissue chips, 5 x 4 x 1 cm in aggregate. The specimen is entirely submitted in 8 cassettes. Belen Parsons, Pathologists' Dessert Cup Machine Feeder 05/18/2025 10:45 AM [facility] ([facility])Microscopic Description Microscopic examination performed.05/18/2025 10:45 AM [facility] ([facility])Specimen (Source)Anatomical Location / LateralityCollection Method / VolumeCollection TimeReceived TimeTissueProstate / Ripjdxl3505/11/2025 3:30 PM EDT 05/14/2025 7:23 AM EDTComment:Pre-op diagnosis: BPH with obstruction/lower urinary tract symptoms [N40.1, N13.8] Narrative Authorizing ProviderResult TypeResult StatusGhazal FAJARDO PATHOLOGY ORDERABLESFinal ResultPerforming OrganizationAddressCity/State/ZIP CodePhone Number [facility] ([facility]) [address] [place] [address] * DC AN ELECTIVE ENDOTRACHEAL AIRWAY (05/11/2025 2:30 PM EDT) Narrative Annalee Manzanares CAA - 05/11/2025 2:30 PM EDT MILENA Nava 05/11/2025 2:41 PM Airway Date/Time: 05/11/2025 2:30 PM Reason: elective Airway not difficult General Information and Staff Patient location during procedure: OR Anesthesiologist: Iam Blair MD Resident/AIRPORT CONTROL OPERATOR/CAA: MILENA Nava Performed: resident/AIRPORT CONTROL OPERATOR/MILENA Patient Condition Indications for airway management: anesthesia Sedation level: deep Final Airway Details Preoxygenated: yes Final airway type: endotracheal airway Successful airway: ETT Cuffed: yes Successful intubation technique: video laryngoscopy Adjuncts used in placement: intubating stylet Endotracheal tube insertion site: oral Blade: Levine Blade size: #3 ETT size (mm): 7.5 Cormack-Lehane Classification: grade I - full view of glottis Placement verified by: chest auscultation and capnometry Measured from: lips ETT to lips (cm): 22 Number of attempts at approach: 1 Number of other approaches attempted: 0 Authorizing ProviderResult TypeResult StatusIam Casabianca MDANESTHESIA ORDERABLESFinal Result * Gold Top (05/02/2025 3:40 AM EDT)ComponentValueRef RangeTest MethodAnalysis TimePerformed AtPathologist SignatureExtra TubeHold for add-ons.05/02/2025 7:01 AM [facility]TS[facility] ([place])Comment:Auto resulted.Specimen (Source) Anatomical Location / LateralityCollection Method / VolumeCollection Time Received TimeBloodVenous blood specimen / Wtmzrsw8905/02/2025 3:40 AM EDT 05/02/2025 5:05 AM EDT Narrative Authorizing ProviderBillie FAJARDO BLOOD ORDERABLES Final ResultPerforming OrganizationAddressCity/State/ZIP CodePhone Number [facility] ([place]) [address] [place] [address] * Cystoscopy and stent removal (05/01/2025 4:49 PM EDT) Narrative Ghazal Tan MD - 05/01/2025 4:49 PM EDT Ghazal Tan MD 05/03/2025 9:24 AM Cystoscopy and stent removal Date/Time: 05/01/2025 4:49 PM Performed by: Zac Pereyra, DO Authorized by: Jayjay Robin MD ?? Procedure - Bladder Cystoscopy: ??Procedure details: simple removal of a foreign body, stone, or stent Post-procedure: ??Patient tolerance: Patient tolerated the procedure well with no immediate complications ?? Comments: ?? Skin was prepped with betadine After removal of the stent, a 14F valderrama catheter was inserted. Procedure supervised by chief resident, Dr Smith. Authorizing ProviderResult Ashwin POOL PROCEDURE ORDERABLESFinal Result * Nonfermenter susceptibility (05/01/2025 12:00 PM EDT)ComponentValueRef Range Test MethodAnalysis TimePerformed AtPathologist SignatureSusceptibility, NonfermenterSEE NOTE05/12/2025 4:08 PM [facility] ([place])Comment: Pseudomonas aeruginosa Identification by MALDI-TOF This test was developed and its performance characteristics determined by [employer]. It has not been cleared or approved by the U.S. Food and Drug Administration. This test was performed in a CLIA-certified laboratory and is intended for clinical purposes. INTERPRETIVE INFORMATION: Nonfermenter Susceptibility Units = ug/mL Susceptibility testing is performed by broth microdilution using custom- made JES panels and interpreted according to CLSI guidelines. JES Amikacin <=1 Suscept Gentamicin <=0.25 Suscept Cefepime <=1 Suscept Imipenem ?8 Resist Meropenem ? 1 Suscept Ciprofloxacin ? 2 Resist Piperacillin/Tazobactam ? 2/4 Suscept Aztreonam ? 8 Suscept Ceftazidime ? 1 Suscept Levofloxacin ?8 Resist Ticarcillin/Clavulanate ? 16/2 Suscept Tobramycin <=0.25 Suscept Performed By: [employer] [address] [place] [id number] Floral Artist: Julián Wooten MD, PhD CLIA Number: [id number] Specimen (Source)Anatomical Location / LateralityCollection Method / Volume Collection TimeReceived TimeOther (Stent)Non-blood Collection / Unknown 05/01/2025 12:00 PM EDT1 12:01 PM EDT Narrative Authorizing ProviderResult TypeResult StatusJayjay FAJARDO MICROBIOLOGY - GENERAL ORDERABLESFinal ResultPerforming OrganizationAddressty/State/ZIP Code Phone Number [facility] ([facility]) [address] [place], [place] [phone] * Aerobic Organism Identification (05/01/2025 12:00 PM EDT)ComponentValueRef RangeTest MethodAnalysis TimePerformed AtPathologist SignatureOrganism Identification, AerobicSEE NOTE05/11/2025 12:05 PM EDTARUP [facility] ([facility]) Comment: Pseudomonas aeruginosa Identification by MALDI-TOF This test was developed and its performance characteristics determined by [employer]. It has not been cleared or approved by the U.S. Food and Drug Administration. This test was performed in a CLIA-certified laboratory and is intended for clinical purposes. Performed By: [employer] [address] [place] [address] Floral Artist: Julián Wooten MD, PhD CLIA Number: [id number] Specimen (Source)Anatomical Location / LateralityCollection Method / Volume Collection TimeReceived TimeOther (Stent)Non-blood Collection / Unknown 05/01/2025 12:00 PM EDT1 12:01 PM EDT Narrative Authorizing ProviderResult TypeResult Jalen Robin MDJEFFERSON COUNTY [facility] MICROBIOLOGY - GENERAL ORDERABLESFinal ResultPerforming OrganizationAddressty/State/ZIP Code Phone Number [facility]) [address] [phone] * Vascular US carotid artery duplex bilateral (04/30/2025 3:14 PM EDT)Anatomical RegionLateralityModalityNeckUltrasoundSpecimen (Source)Anatomical Location / LateralityCollection Method / VolumeCollection TimeReceived Time04/30/2025 3:12 PM EDT Impressions 04/30/2025 9:31 PM EDT Notes: Indication: Stroke, follow up Right: Heterogeneous, irregular plaque with no significant ICA spectral Doppler or color flow disturbances: ICA 67/19 cm/sec; consistent with <50% diameter reduction. Antegrade vertebral artery flow. ?? Left: Heterogeneous, irregular plaque with no significant ICA spectral Doppler or color flow disturbances: ICA 62/17 cm/sec; consistent with <50% diameter reduction. Antegrade vertebral artery flow. ?? Notes: Indication: Stroke, follow up Right: Heterogeneous, irregular plaque with no significant ICA spectral Doppler or color flow disturbances: ICA 67/19 cm/sec; consistent with <50% diameter reduction. Antegrade vertebral artery flow. ?? Left: Heterogeneous, irregular plaque with no significant ICA spectral Doppler or color flow disturbances: ICA 62/17 cm/sec; consistent with <50% diameter reduction. Antegrade vertebral artery flow. ?? Conclusions: Antegrade flow of bilateral vertebral arteries. <50% stenosis in right internal carotid artery. <50% stenosis in left internal carotid artery. Narrative 04/30/2025 9:31 PM EDT Procedure: The carotid arteries, including common carotid, internal and external carotid artery were evaluated bilaterally. This was done using real-time imaging with velocity measurement, color Doppler, and spectral analysis.The vertebral arteries were evaluated bilaterally using color ultrasound and velocity measurement. Procedure: The carotid arteries, including common carotid, internal and external carotid artery were evaluated bilaterally. This was done using real-time imaging with velocity measurement, color Doppler, and spectral analysis.The vertebral arteries were evaluated bilaterally using color ultrasound and velocity measurement. Procedure Note Collin Petit MD - 04/30/2025 Procedure: The carotid arteries, including common carotid, internal andexternal carotid artery were evaluated bilaterally. This was done usingreal-time imaging with velocity measurement, color Doppler, and spectralanalysis.The vertebral arteries were evaluated bilaterally using colorultrasound and velocity measurement. Procedure: The carotid arteries, including common carotid, internal andexternal carotid artery were evaluated bilaterally. This was done usingreal-time imaging with velocity measurement, color Doppler, and spectralanalysis.The vertebral arteries were evaluated bilaterally using colorultrasound and velocity measurement. IMPRESSION: Notes: Indication: Stroke, follow up Right: Heterogeneous, irregular plaque with no significant ICA spectralDoppler or color flow disturbances: ICA 67/19 cm/sec; consistent with <50%diameter reduction. Antegrade vertebral artery flow. Left: Heterogeneous, irregular plaque with no significant ICA spectralDoppler or color flow disturbances: ICA 62/17 cm/sec; consistent with <50%diameter reduction. Antegrade vertebral artery flow. Notes: Indication: Stroke, follow up Right: Heterogeneous, irregular plaque with no significant ICA spectralDoppler or color flow disturbances: ICA 67/19 cm/sec; consistent with <50%diameter reduction. Antegrade vertebral artery flow. Left: Heterogeneous, irregular plaque with no significant ICA spectralDoppler or color flow disturbances: ICA 62/17 cm/sec; consistent with <50%diameter reduction. Antegrade vertebral artery flow. Conclusions: Antegrade flow of bilateral vertebral arteries. <50% stenosis in right internal carotid artery. <50% stenosis in left internal carotid artery. Authorizing ProviderResult TypeResult StatusSyed Dayton BURROWS CV VASCULAR PROCEDURESFinal Result * COMPLETE ECHO (TTE) (04/30/2025 2:30 PM EDT)Anatomical RegionLaterality ModalityOtherSpecimen (Source)Anatomical Location / LateralityCollection Method / VolumeCollection TimeReceived Time04/30/2025 2:00 PM EDT Narrative 04/30/2025 4:04 PM EDT 1 1 [facility] Heart Station [address] [place] [address] [phone] (fax) Echocardiogram-[facility] Name: [facility] Study Date: 04/30/2025 02:00 PM B/P: 144 mmHg/52 mmHg HR: 70 bpm Date of : 1955 Location: [facility] Height: 72 in. Age: 69 year(s) Patient Room: 4120 Weight: 187 lb. Gender: Male Patient Status: InPt BSA: 2.07 m2 Indication: Stroke Examination: Echocardiogram (Complete), Agitated Saline Image Quality: Fair Patient Consent: Procedure explained to patient Exam Details Contrast: I.V. dose of agitated saline Conclusions Left Ventricle: The left ventricle is normal size. Global left ventricular systolic function is normal. The EF is 65 % visually. Left ventricular wall thickness is moderately increased. No regional wall motion abnormality. Normal diastolic function. Right Ventricle: The right ventricle is normal in size. Normal right ventricular systolic function. Doppler studies suggest normal right sided pressures. Left Atrium: The left atrium is normal in size. IAS: No intracardiac shunt by agitated saline injections. Aorta: The aortic root exhibits mild dilatation 3.8 cm. Pericardium: There is a minimal pericardial effusion. Measurements Left Ventricle Label Value Normal Value LVOTd 2 cm (19cm - 21cm) LVOT VTI 36.1 cm (18cm - 22cm) LVOT PGmax 11 mmHg LVEF visual 65 % LVDd, 2D 4.94 cm (4.2cm - 5.9cm) LVDs, 2D 3.57 cm (2.1cm - 4cm) IVSd, 2D 1.45 cm (0.6cm - 1.1cm) LVPWd, 2D 1.39 cm (0.6cm - 1cm) LV Mass, 2D ASE 292.1 g LV Mass Index, 2D ASE 141.1 g/m?? (50g/m?? - 102.4g/m??) RWT, MM 0.56 (0 - 0.42) LVSVI, 2D 30 ml/m2 LVOT PGmean 6 mmHg LVSV_LVOT 113 ml Right Ventricle Label Value Normal Value RVDd, 2D 3.77 cm (1.9cm - 3.8cm) TAPSE 2.7 cm Left Atrium Label Value Normal Value LA Volume, BP 45 ml (18ml - 58ml) LADs, 2D 3.6 cm (3cm - 4cm) LAESV index, BP 21.7 ml/m?? Right Atrium Label Value Normal Value RA Area 18.4 cm?? Aortic Valve Label Value Normal Value AV DVI 1 AV VTI 34.8 cm Mitral Valve Label Value Normal Value MV E Vmax 0.94 m/s MV A Vmax 1.13 m/s MV E/A 0.83 MV E/E' lateral 10.7 MV E' lateral 0.09 m/s Tricuspid Valve Label Value Normal Value RA Pressure 3 mmHg RVSP 22 mmHg TR Vmax 2.2 m/s Aorta Label Value Normal Value AoRoot, 2D 3.8 cm (1.4cm - 3.8cm) Great Vessels Label Value Normal Value IVC 1.9 cm (1.2cm - 2.3cm) Valvular Assessment LVOT 0.7 - 1.1 m/sec Aortic Valve 1.0 - 1.7 m/sec Mitral Valve 0.6 - 1.3 m/sec Tricuspid Valve 0.3 - 0.7 m/sec Pulmonic Valve 0.6 - 0.9 m/sec Regurgitation No Trivial Trivial No Stenosis No No No No Max Velocity 1.67 m/sec 1.67 m/s 0.94 m/sec Max Gradient 11.00 mmHg Mean Gradient 6.00 mmHg Valve Area 3.1 cm?? Findings Left Ventricle: The left ventricle is normal size. Global left ventricular systolic function is normal. The EF is 65 % visually. Left ventricular wall thickness is moderately increased. No regional wall motion abnormality. Normal diastolic function. Right Ventricle: The right ventricle is normal in size. Normal right ventricular systolic function. Doppler studies suggest normal right sided pressures. Left Atrium: The left atrium is normal in size. IAS: No intracardiac shunt by agitated saline injections. Right Atrium: The right atrium is normal in size. Mitral Valve: The mitral valve is normal in mobility and thickness. Trivial mitral regurgitation. No mitral valve stenosis. Aortic Valve: No aortic valve regurgitation. No aortic valve stenosis. Aortic leaflets exhibit mild calcification. The aortic valve is trileaflet. Tricuspid Valve: Tricuspid valve appears normal. Trivial tricuspid regurgitation. No tricuspid valve stenosis. Pulmonic Valve: Pulmonary valve appears normal. No pulmonary regurgitation. No pulmonic valve stenosis. Aorta: The aortic root exhibits mild dilatation 3.8 cm. Great Vessels: IVC: Normal size and course of the IVC. Pericardium: There is a minimal pericardial effusion. Procedure Staff Reading Group: [facility] Referring Physician: GHAZAL CEVALLOS ??Carpenter Helper [employer] Flooring: BILL Cotton ??Ordering Physician: CORAL SCHWARTZ ?? Procedure Note Efren Moy MD - 04/30/2025 1 1 [facility] Heart Station [address] [place] [address] [phone] (fax) Echocardiogram-[facility] Name: [facility] Study Date: 04/30/2025 02:00 PM B/P: 144 mmHg/52 mmHg HR: 70 bpm Date of : 1955 Location: [facility] Height: 72 in. Age: 69 year(s) Patient Room: 4120 Weight: 187 lb. Gender: Male Patient Status: InPt BSA: 2.07 m2 Indication: Stroke Examination: Echocardiogram (Complete), Agitated Saline Image Quality: Fair Patient Consent: Procedure explained to patient Exam Details Contrast: I.V. dose of agitated saline Conclusions Left Ventricle: The left ventricle is normal size. Global left ventricular systolic function is normal. The EF is 65 % visually. Left ventricular wall thickness is moderately increased. No regional wall motion abnormality. Normal diastolic function. Right Ventricle: The right ventricle is normal in size. Normal right ventricular systolic function. Doppler studies suggest normal right sided pressures. Left Atrium: The left atrium is normal in size. IAS: No intracardiac shunt by agitated saline injections. Aorta: The aortic root exhibits mild dilatation 3.8 cm. Pericardium: There is a minimal pericardial effusion. Measurements Left Ventricle Label Value Normal Value LVOTd 2 cm (19cm - 21cm) LVOT VTI 36.1 cm (18cm - 22cm) LVOT PGmax 11 mmHg LVEF visual 65 % LVDd, 2D 4.94 cm (4.2cm - 5.9cm) LVDs, 2D 3.57 cm (2.1cm - 4cm) IVSd, 2D 1.45 cm (0.6cm - 1.1cm) LVPWd, 2D 1.39 cm (0.6cm - 1cm) LV Mass, 2D ASE 292.1 g LV Mass Index, 2D ASE 141.1 g/m?? (50g/m?? - 102.4g/m??) RWT, MM 0.56 (0 - 0.42) LVSVI, 2D 30 ml/m2 LVOT PGmean 6 mmHg LVSV_LVOT 113 ml Right Ventricle Label Value Normal Value RVDd, 2D 3.77 cm (1.9cm - 3.8cm) TAPSE 2.7 cm Left Atrium Label Value Normal Value LA Volume, BP 45 ml (18ml - 58ml) LADs, 2D 3.6 cm (3cm - 4cm) LAESV index, BP 21.7 ml/m?? Right Atrium Label Value Normal Value RA Area 18.4 cm?? Aortic Valve Label Value Normal Value AV DVI 1 AV VTI 34.8 cm Mitral Valve Label Value Normal Value MV E Vmax 0.94 m/s MV A Vmax 1.13 m/s MV E/A 0.83 MV E/E' lateral 10.7 MV E' lateral 0.09 m/s Tricuspid Valve Label Value Normal Value RA Pressure 3 mmHg RVSP 22 mmHg TR Vmax 2.2 m/s Aorta Label Value Normal Value AoRoot, 2D 3.8 cm (1.4cm - 3.8cm) Great Vessels Label Value Normal Value IVC 1.9 cm (1.2cm - 2.3cm) Valvular Assessment LVOT 0.7 - 1.1 m/sec Aortic Valve 1.0 - 1.7 m/sec Mitral Valve 0.6 - 1.3 m/sec Tricuspid Valve 0.3 - 0.7 m/sec Pulmonic Valve 0.6 - 0.9 m/sec Regurgitation No Trivial Trivial No Stenosis No No No No Max Velocity 1.67 m/sec 1.67 m/s 0.94 m/sec Max Gradient 11.00 mmHg Mean Gradient 6.00 mmHg Valve Area 3.1 cm?? Findings Left Ventricle: The left ventricle is normal size. Global left ventricular systolic function is normal. The EF is 65 % visually. Left ventricular wall thickness is moderately increased. No regional wall motion abnormality. Normal diastolic function. Right Ventricle: The right ventricle is normal in size. Normal right ventricular systolic function. Doppler studies suggest normal right sided pressures. Left Atrium: The left atrium is normal in size. IAS: No intracardiac shunt by agitated saline injections. Right Atrium: The right atrium is normal in size. Mitral Valve: The mitral valve is normal in mobility and thickness. Trivial mitral regurgitation. No mitral valve stenosis. Aortic Valve: No aortic valve regurgitation. No aortic valve stenosis. Aortic leaflets exhibit mild calcification. The aortic valve is trileaflet. Tricuspid Valve: Tricuspid valve appears normal. Trivial tricuspid regurgitation. No tricuspid valve stenosis. Pulmonic Valve: Pulmonary valve appears normal. No pulmonary regurgitation. No pulmonic valve stenosis. Aorta: The aortic root exhibits mild dilatation 3.8 cm. Great Vessels: IVC: Normal size and course of the IVC. Pericardium: There is a minimal pericardial effusion. Procedure Staff Reading Group: [facility] Referring Physician: GHAZAL CEVALLOS Carpenter Helper [employer] Flooring: Waleska Davis [facility] Ordering Physician: CORAL SCHWARTZ Authorizing ProviderResult TypeResult StatusSyed [place] Schwartz MDCV ECHO PROCEDURES Final Result * Hemoglobin A1c (04/29/2025 4:14 AM EDT) Only the most recent of2 resultswithin the time period is included. ComponentValueRef RangeTest MethodAnalysis TimePerformed AtPathologist Signature Hemoglobin A1C4.64.0 - 6.0 %04/29/2025 10:37 AM [facility] ([facility]) Estimated Average Dlxniwu81xk/dL04/29/2025 10:37 AM [facility] ([facility])Specimen (Source)Anatomical Location / LateralityCollection Method / VolumeCollection TimeReceived TimeBloodVenous blood specimen / Unknown Venipuncture / Wbfsexh8404/29/2025 4:14 AM EDT04/29/2025 5:01 AM EDT Narrative Authorizing ProviderResult TypeResult StatusSyed Dayton FAJARDO BLOOD ORDERABLES Final ResultPerforming OrganizationAddressCity/State/ZIP CodePhone Number [facility] ([facility]) [address] [place] [address] * Lipid panel (04/29/2025 4:14 AM EDT) Only the most recent of2 resultswithin the time period is included. ComponentValueRef RangeTest MethodAnalysis TimePerformed AtPathologist Signature Ncgzibnhkjwlf96<150 mg/dL04/29/2025 5:59 AM [facility] ([facility]) Comment: TRIGLYCERIDE REFERENCE RANGE: 20 YEARS AND OLDER ?CARDIOVASCULAR RISK LESS THAN 150 mg/dL ? LOW RISK 150 TO 199 mg/dL ?BORDERLINE RISK 200 mg/dL AND GREATER ? HIGH RISK [id number] - 200 mg/dL04/29/2025 5:59 AM [facility] ([facility])LDL Uklpichfou679 - 160 mg/dL04/29/2025 5:59 AM [facility] ([facility])GME8747 - 92 mg/dL04/29/2025 5:59 AM [facility] ([facility])Non HDL Xntyutygzse779 04/29/2025 5:59 AM [facility] ([facility])Total VLDL-C160 - 40 mg/dL 04/29/2025 5:59 AM [facility] ([facility])Cholesterol/HDL Ratio3.2mg/dL 04/29/2025 5:59 AM [facility] ([facility])Specimen (Source)Anatomical Location / LateralityCollection Method / VolumeCollection TimeReceived TimeBlood Venous blood specimen / UnknownVenipuncture / Tuycpnx5304/29/2025 4:14 AM EDT 04/29/2025 5:01 AM EDT Narrative Authorizing ProviderResult TypeResult StatusSyed [place] Schwartz MDLAB BLOOD ORDERABLES Final ResultPerforming OrganizationAddressCity/State/ZIP CodePhone Number [facility] ([facility]) [address] [place] [address] * (ABNORMAL) Protime-INR (04/28/2025 9:30 PM EDT) Only the most recent of3 resultswithin the time period is included. ComponentValueRef RangeTest MethodAnalysis TimePerformed AtPathologist Signature Nnzgrlj28.2(H)12.3 - 14.8 Cdfesbe9004/28/2025 10:31 PM [facility] ([facility])INR1.20(H)0.90 - 1.10004/28/2025 10:31 PM [facility] ([facility]) Comment: [facility] RECOMMENDED INR FOR WARFARIN THERAPY CONDITION ?INR PROPHYLAXIS OF VENOUS THROMBOSIS ? 2-3 (HIGH-RISK SURGERY) TREATMENT OF VENOUS THROMBOSIS ? 2-3 TREATMENT OF PULMONARY EMBOLISM ?2-3 PREVENTION OF SYSTEMIC EMBOLISM: ? 2-3 ?ACUTE MYOCARDIAL INFARCTION ?TISSUE HEART VALVES ?VALVULAR HEART DISEASE ?ATRIAL FIBRILLATION ?RECURRENT SYSTEMIC EMBOLISM MECHANICAL HEART VALVE ? 2.5-3.5 FROM: ORAL ANTICOAGULANTS. ??MECHANISM OF ACTION, CLINICAL EFFECTIVENESS, AND OPTIMAL THERAPEUTIC RANGE. ??CHEST 1995;108:231S-246S. Specimen (Source)Anatomical Location / LateralityCollection Method / Volume Collection TimeReceived TimeBloodVenous blood specimen / UnknownVenipuncture / Cpujqno0704/28/2025 9:30 PM EDT04/28/2025 9:51 PM EDT Narrative Authorizing ProviderResult TypeResult StatusKunal Lobito JOSEPHLAB BLOOD ORDERABLES Final ResultPerforming OrganizationAddressCity/State/ZIP CodePhone Number [facility] ([facility]) [address] [place] [address] * MR brain w and wo contrast (04/28/2025 5:50 PM EDT)Anatomical RegionLaterality ModalityBrainMagnetic ResonanceSpecimen (Source)Anatomical Location / LateralityCollection Method / VolumeCollection TimeReceived Time04/28/2025 5:54 PM EDT Impressions 04/28/2025 10:56 PM EDT Ischemic 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 THIS REPORT CONTAINS A CRITICAL RESULT AND/OR RECOMMENDATION WHICH REQUIRES THE ATTENTION OF THE LICENSED CAREGIVER RESPONSIBLE FOR THIS PATIENT. I, KENNETH PRATT DO, PERSONALLY DISCUSSED THE RESULTS WITH FAITH REDMAN MD AT 6:14 PM on 04/28/2025. Approved by:Kenneth Cabezas04/28/2025 6:14 PM. I, Ángela Liz,have reviewed the image(s) and agree with the findings in this report. Electronically signed: Ángela Liz. Narrative 04/28/2025 10:56 PM EDT MR BRAIN W AND WO CONTRAST HISTORY: ??Stroke, facial droop COMPARISON: ??None TECHNIQUE: ??Multisequence, multiplanar MR images of the brain were obtained. FINDINGS: ?? DWI: Diffusion restriction in the following areas: * Left anterolateral temporal lobe. * Multifocal areas in the frontal lobe adjacent to the primary motor cortex. This correlates with the left MCA territory. Intracranial hemorrhage: Small amount of blooming artifact in the left cerebellar hemisphere most likely representing chronic microhemorrhage. Midline shift: None. Extra-axial spaces: Normal in size and morphology for patient's age. Ventricular system: Normal in size and morphology for patient's age. Basal cisterns: Normal in appearance. Cerebral parenchyma: Periventricular and subcortical white matter changes which is nonspecific but is commonly seen with microvascular changes. Cerebellum: Normal in appearance. Cerebellopontine angle: Symmetric and normal in appearance without identifiable lesions. Brainstem: Normal. Vascular system: Normal flow voids of the major cerebral vasculature. Paranasal sinuses and mastoid air cells: Right maxillary mucosal thickening. Visualized orbits: Symmetric and normal in appearance without identifiable lesions. Midline Structures: The corpus callosum, posterior fossa and cerebellar tonsils are normal. Osseous structures: Normal in appearance. Procedure Note Ángela Liz MD - 04/28/2025 MR BRAIN W AND WO CONTRAST HISTORY: Stroke, facial droop COMPARISON: None TECHNIQUE: Multisequence, multiplanar MR images of the brain wereobtained. FINDINGS: DWI: Diffusion restriction in the following areas: *Left anterolateral temporal lobe. *Multifocal areas in the frontal lobe adjacent to the primary motorcortex. This correlates with the left MCA territory. Intracranial hemorrhage: Small amount of blooming artifact in the left cerebellar hemisphere most likely representing chronic microhemorrhage. Midline shift: None. Extra-axial spaces: Normal in size and morphology for patient's age. Ventricular system: Normal in size and morphology for patient's age. Basal cisterns: Normal in appearance. Cerebral parenchyma: Periventricular and subcortical white matter changeswhich is nonspecific but is commonly seen with microvascular changes. Cerebellum: Normal in appearance. Cerebellopontine angle: Symmetric and normal in appearance withoutidentifiable lesions. Brainstem: Normal. Vascular system: Normal flow voids of the major cerebral vasculature. Paranasal sinuses and mastoid air cells: Right maxillary mucosalthickening. Visualized orbits: Symmetric and normal in appearance withoutidentifiable lesions. Midline Structures: The corpus callosum, posterior fossa and cerebellartonsils are normal. Osseous structures: Normal in appearance. IMPRESSION: Ischemic 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 THIS REPORT CONTAINS A CRITICAL RESULT AND/OR RECOMMENDATION WHICHREQUIRES THE ATTENTION OF THE LICENSED CAREGIVER RESPONSIBLE FOR THIS PATIENT. IKENNETH DO, PERSONALLY DISCUSSED THE RESULTS WITH FAITH REDMAN MD AT 6:14PM on 04/28/2025. Approved by:Kenneth Cabezas04/28/2025 6:14 PM. IÁngela,have reviewed the image(s) and agree with the findingsin this report. Electronically signed: Ángela Liz. Authorizing ProviderResult TypeResult StatusKunal Lobito IMG MRI PROCEDURES Final Result * Leela Prospera (Single) (04/26/2025 8:06 AM EDT) Only the most recent of2 resultswithin the time period is included. ComponentValueRef RangeTest MethodAnalysis TimePerformed AtPathologist Signature CURRENT TEST RESULT0.59%04/30/2025 9:58 AM EDTNATERA LABORATORYComment: Decreased risk for rejection dd-cfDNA Quantity: 31 cp/ml Ref range displayed is for Prospera Test for Kidney Transplant Increased Risk of Rejection: dd-cfDNA % >= 1% or DQS >= 78 cp/ml; Decreased Risk of Rejection: dd-cfDNA % <1% and DQS <78 cp/ml For technical details, limitations, and testing methodology please refer to the complete report viathe [facility] Provider Portal or contact your [facility] Nurse Coordinator at [phone] PATIENT TEST HISTORYSee Notes04/30/2025 9:58 AM EDTNATERA LABORATORYComment: Date: 04-26-2025, Value: dd-cfDNA% 0.59%, dd-cfDNA Quantity: 31 cp/ml, Total cfDNA: - Date: 04-26-2025, Value: dd-cfDNA% 0.59%, dd-cfDNA Quantity: 31 cp/ml, Total cfDNA: - Date: 04-23-2025, Value: dd-cfDNA% 1.19%, dd-cfDNA Quantity: 53 cp/ml, Total cfDNA: - Decreased risk for rejection Test performed by [facility]. : [address] [facility] [address] [place] [address]. CLIA ID #[id number]: CLIA [place] Machine Operator: Imtiaz Wade, Ph.D., [facility] Specimen (Source)Anatomical Location / LateralityCollection Method / Volume Collection TimeReceived TimeBloodVenous blood specimen / UnknownVenipuncture / Bhczphu2604/26/2025 8:06 AM EDT04/26/2025 8:34 AM EDT Narrative Authorizing ProviderResult TypeResult StatusJayjay FAJARDO MOLECULAR DIAGNOSTICS ORDERABLESFinal ResultPerforming OrganizationAddressCity/State/ZIP CodePhone Number [facility] [address] * (ABNORMAL) Vitamin D 25 hydroxy (04/16/2025 7:45 AM EDT)ComponentValueRef RangeTest MethodAnalysis TimePerformed AtPathologist SignatureVit D, 25-Uhcolpp49.3(L)30.0 - 80.0 ng/mL04/16/2025 10:20 AM [facility] ([facility])Comment:>80.0 Toxicity possibleSpecimen (Source)Anatomical Location / LateralityCollection Method / VolumeCollection TimeReceived TimeBloodVenous blood specimen / UnknownVenipuncture / Cvwcpyd7804/16/2025 7:45 AM EDT04/16/2025 8:08 AM EDT Narrative Authorizing ProviderResult TypeResult StatusWendy FAJARDO BLOOD ORDERABLES Final ResultPerforming OrganizationAddressCity/State/ZIP CodePhone Number [facility] ([facility]) [address] [place] [address] * (ABNORMAL) PTH, intact (04/16/2025 7:45 AM EDT)ComponentValueRef RangeTest MethodAnalysis TimePerformed AtPathologist RhfgnrgjxBIG051(H)12 - 88 pg/mL 04/16/2025 9:16 AM [facility] ([facility])Specimen (Source)Anatomical Location / LateralityCollection Method / VolumeCollection TimeReceived Time BloodVenous blood specimen / UnknownVenipuncture / Gvokugg2004/16/2025 7:45 AM EDT04/16/2025 8:08 AM EDT Narrative Authorizing ProviderResult TypeResult StatusWendy Lomeli MDJEFFERSON COUNTY [facility] BLOOD ORDERABLES Final ResultPerforming OrganizationAddressCity/State/ZIP CodePhone Number [facility] ([place]) [address] [place] [address] * (ABNORMAL) Testosterone, free and total, and SHBG (04/13/2025 7:36 AM EDT) ComponentValueRef RangeTest MethodAnalysis TimePerformed AtPathologist NbhjfqodgJbuqxtopxdpt500(L)193 - 740 ng/dL04/13/2025 1:13 PM [facility] LABSex Hormone Jofhjjz8888 - 76 nmol/L04/13/2025 1:13 PM [facility] Testosterone, Free25.0(L)47.0 - 244.0 pg/mL04/13/2025 1:13 PM [facility] LABComment: The concentration of free testosterone is derived from a mathematical expression based on the constant for the binding of testosterone to albumin and/or sex hormone binding globulin. ? Test Performed by [facility] [address] [place] [address] [id number] - Slmbqbup 04/13/2025 13:13 Specimen (Source)Anatomical Location / LateralityCollection Method / Volume Collection TimeReceived TimeBloodVenous blood specimen / UnknownVenipuncture / Ruaxolb5204/13/2025 7:36 AM EDT04/13/2025 7:47 AM EDT Narrative Authorizing ProviderResult TypeResult StatusGrazyna Briseno [facility] BLOOD ORDERABLESFinal ResultPerforming OrganizationAddressCity/State/ZIP CodePhone Number [facility] [address] [place] [address] * BK virus, DNA, quantitative, Q3 Months (04/13/2025 7:36 AM EDT)ComponentValue Ref RangeTest MethodAnalysis TimePerformed AtPathologist SignatureBK Virus Plasma InterpretationNot DetectedNot Ebrigidw91/12/2025 11:47 AM [facility] ([facility])BK Virus QuantitationNot DetectedNot Detected copies/mL 04/13/2025 11:47 AM [facility] (LA[place]ER)Comment: Method: BK virus was measured by quantitative polymerase chain reaction using a fluorescent hydrolysis probe targeting the polyomavirus BK DRIVE IN THEATER ATTENDANT-1 gene. The lower limit of quantitation of the assay is 500 copies of BK genome per milliliter of plasma orurine, and any detectable BK DNA below that level is reported as: Detected, <500 copies/ml. Serial BK virus measurement can be used to monitor disease activity. (Reference: Crystal healyl. J CLIN MICRO 2004; 42:9891-0311). This test was developed and its performance characteristics determined by the [facility]. It has not been approved by the [place] Food and Drug Administration. However, such approval is not required for clinical implementation, and test results have been shown to be clinicallyuseful. This laboratory is CAP accredited and CLIA certified to perform high complexity testing. BK Virus Quant LogNot DetectedNot Detected copies/mL04/13/2025 11:47 AM [facility] ([facility])Specimen (Source)Anatomical Location / LateralityCollection Method / VolumeCollection TimeReceived TimeBloodVenous blood specimen / Unknown Venipuncture / Qclcfwo2704/13/2025 7:36 AM EDT04/13/2025 7:49 AM EDT Narrative Authorizing ProviderResult TypeResult StatusJojazmin Briseno [facility] BLOOD ORDERABLESFinal ResultPerforming OrganizationAddressCity/State/ZIP CodePhone Number [facility] ([facility]) [address] [place] [address] * ECG 12 lead (04/10/2025 4:34 PM EDT) Only the most recent of2 resultswithin the time period is included. ComponentValueRef RangeTest MethodAnalysis TimePerformed AtPathologist Signature Ventricular Qocj88XFEQZ MUSEAtrial Cgsh63DKCFT MUSEPR Eeklhrbu697zxXJ MUSEQRS PUBGXUOH75dyFB MUSEQT Opfzjatr873wySH MUSEQTC CALCULATION(ELIZABETHTT)516msGE MUSEP Zahc36cvqwwqcMD MUSER-Xdkb77xvwdxqdFX MUSET Wave Ndfw62pwdfypyGO MUSESpecimen (Source)Anatomical Location / LateralityCollection Method / VolumeCollection TimeReceived Time04/10/2025 4:21 PM EDT04/10/2025 9:02 PM EDT Impressions GE MUSE - [...] Hayden Smith (79) on 04/10/2025 9:02:14 PM Authorizing ProviderResult TypeResult StatusJordchaparro Briseno CNPECG ORDERABLES Final ResultPerforming OrganizationAddressCity/State/ZIP CodePhone Number GE MUSE * US KIDNEY TRANSPLANT W DOPPLER (04/10/2025 8:22 AM EDT) Only the most recent of3 resultswithin the time period is included. Anatomical RegionLateralityModalityKidney, AbdomenUltrasoundSpecimen (Source) Anatomical Location / LateralityCollection Method / VolumeCollection Time Received Time04/10/2025 8:23 AM EDT Impressions 04/10/2025 8:25 AM [...] renal cyst. Electronically signed: Michel Valentine MD. Authorizing ProviderResult TypeResult Jalen BURROWS US PROCEDURESFinal Result * Lavender Top (04/09/2025 4:45 PM EDT) Only the most recent of2 resultswithin the time period is included. ComponentValueRef RangeTest MethodAnalysis TimePerformed AtPathologist Signature Extra TubeHold for add-ons.04/09/2025 7:01 PM [facility] ([facility]) Comment:Auto resulted.Specimen (Source)Anatomical Location / Laterality Collection Method / VolumeCollection TimeReceived TimeBloodVenous blood specimen / Sclljvs8604/09/2025 4:45 PM EDT04/09/2025 5:27 PM EDT Narrative Authorizing ProviderResult TypeResult StatusJayjay FAJARDO BLOOD ORDERABLES Final ResultPerforming OrganizationAddressCity/State/ZIP CodePhone Number [facility] ([facility]) [address] [place] [address] * (ABNORMAL) Iron and TIBC (04/09/2025 4:45 PM EDT) Only the most recent of2 resultswithin the time period is included. ComponentValueRef RangeTest MethodAnalysis TimePerformed AtPathologist Signature Xmlu9455 - 212 ug/dL04/09/2025 6:23 PM [facility] ([facility])EVME240(L) 250 - 450 ug/dL04/09/2025 6:23 PM [facility] ([facility])Iron Cortliobsk55 (H)20 - 50 %04/09/2025 6:23 PM [facility] ([facility])UIBC60.0(L)155.0 - 355.0 ug/dL04/09/2025 6:23 PM [facility] ([facility])Specimen (Source) Anatomical Location / LateralityCollection Method / VolumeCollection Time Received TimeBloodVenous blood specimen / UnknownVenipuncture / Unknown 04/09/2025 4:45 PM EDT04/09/2025 5:26 PM EDT Narrative Authorizing ProviderResult TypeResult StatusKunal Lobito FAJARDO BLOOD ORDERABLES Final ResultPerforming OrganizationAddressCity/State/ZIP CodePhone Number [facility] ([facility]) [address] [place] [address] * XR chest 1 view (04/09/2025 1:58 PM EDT) Only the most recent of3 resultswithin the time period is included. Anatomical RegionLateralityModalityChestComputed RadiographySpecimen (Source) Anatomical Location / LateralityCollection Method / VolumeCollection Time Received Time04/09/2025 2:00 PM EDT Impressions 04/09/2025 2:01 PM EDT Cardiomegaly with mild pulmonary vascular congestion. Electronically signed: Jean Chopra. Narrative 04/09/2025 2:01 PM EDT History: Cough. Desaturation. Portable upright chest: 04/09/2025 Comparison: 04/07/2025 Findings: A single portable upright image of the chest was obtained. ??The heart is enlarged. Mediastinal contours are stable [...] pulmonary vascular congestion. Electronically signed: Jean Chopra. Authorizing ProviderResult TypeResult StatusGrazyna Briseno [facility] XR PROCEDURESFinal Result * (ABNORMAL) Hemoglobin and hematocrit, blood (04/07/2025 7:06 PM EDT)Component ValueRef RangeTest MethodAnalysis TimePerformed AtPathologist Signature Hemoglobin7.9(L)13.0 - 17.0 g/dL04/07/2025 7:28 PM [facility] ([facility])Lldmrgcqwg40.3(L)39.0 - 50.0 %04/07/2025 7:28 PM [facility] ([facility])Specimen (Source)Anatomical Location / LateralityCollection Method / VolumeCollection TimeReceived TimeBloodVenous blood specimen / Unknown Venipuncture / Vwubtat2504/07/2025 7:06 PM EDT04/07/2025 7:22 PM EDT Narrative Authorizing ProviderResult TypeResult StatusKnicole Robin MDLAB BLOOD ORDERABLES Final ResultPerforming OrganizationAddressCity/State/ZIP CodePhone Number [facility] ([facility]) [address] [place] [address] * Respiratory virus PCR panel (04/07/2025 10:47 AM EDT)ComponentValueRef Range Test MethodAnalysis TimePerformed AtPathologist SignatureAdenovirusNot DetectedNot Kcnhfves98/06/2025 11:49 AM [facility] ([facility]) Bordetella pertussisNot DetectedNot Skrkxicv02/06/2025 11:49 AM [facility] ([facility])Bordetella parapertussisNot DetectedNot Detected 04/07/2025 11:49 AM [facility] ([facility])Chlamydia pneumoniaeNot DetectedNot Subrduqh41/06/2025 11:49 AM [facility] ([facility]) Coronavirus 229ENot DetectedNot Ikbdkoum92/06/2025 11:49 AM [facility] ([facility])Coronavirus GDQ4Fkb DetectedNot Udkuxaim16/06/2025 11:49 AM [facility] ([facility])Coronavirus DF34Brr DetectedNot Txizwkkx86/06/2025 11:49 AM [facility] ([facility])Coronavirus BI81Xbn DetectedNot Detected 04/07/2025 11:49 AM [facility] ([facility])Human MetapneumovirusNot DetectedNot Ynbmbzcw18/06/2025 11:49 AM [facility] ([facility])Human Rhinovirus + EnterovirusNot DetectedNot Zvgrcmed04/06/2025 11:49 AM [facility] ([facility])Influenza ANot DetectedNot Diakzkfa50/06/2025 11:49 AM [facility] ([facility])Influenza BNot DetectedNot Uiggnvpd25/06/2025 11:49 AM [facility] ([facility])Mycoplasma pneumoniaeNot DetectedNot Ooonfmnx13/06/2025 11:49 AM [facility] ([facility])Parainfluenza 1Not DetectedNot Tdauoalg88/06/2025 11:49 AM [facility] ([facility]) Parainfluenza 2Not DetectedNot Lspcfxxl14/06/2025 11:49 AM [facility] ([facility])Parainfluenza 3Not DetectedNot Ywrjeiws85/06/2025 11:49 AM [facility] ([facility])Parainfluenza 4Not DetectedNot Xcttkpvh39/06/2025 11:49 AM [facility] ([facility])Respiratory Syncytial VirusNot DetectedNot Elyenfsl13/06/2025 11:49 AM [facility] ([facility])VGTV-MaR-5Oxv DetectedNot Ofshlzsr72/06/2025 11:49 AM [facility] ([facility])Specimen (Source)Anatomical Location / LateralityCollection Method / VolumeCollection TimeReceived TimeSwabNasopharyngeal structure / UnknownNon-blood Collection / Iwbblwq9204/07/2025 10:47 AM EDT04/07/2025 10:51 AM EDT Narrative [facility] ([facility]) - 04/07/2025 11:49 AM EDT Testing methodology is a multiplexed nucleic acid test intended for the simultaneous qualitative detection and differentiation of nucleic acids from multiple viral and bacterial respiratory organisms in nasopharyngeal swabs (GAS ANALYST). Authorizing ProviderResult TypeResult StatusGhazal FAJARDO MICROBIOLOGY - GENERAL ORDERABLESFinal ResultPerforming OrganizationAddressCity/State/ZIP Code Phone Number [facility]) [address] [place] [address] * (ABNORMAL) Albumin (04/07/2025 8:13 AM EDT) Only the most recent of2 resultswithin the time period is included. ComponentValueRef RangeTest MethodAnalysis TimePerformed AtPathologist Signature Albumin2.8(L)3.5 - 5.7 g/dL04/07/2025 8:56 AM [facility] ([facility]) Specimen (Source)Anatomical Location / LateralityCollection Method / Volume Collection TimeReceived TimeBloodVenous blood specimen / UnknownVenipuncture / Dtumxmg2404/07/2025 8:13 AM EDT04/07/2025 8:32 AM EDT Narrative Authorizing ProviderResult TypeResult StatusGhazal Tan [facility] BLOOD ORDERABLES Final ResultPerforming OrganizationAddressCity/State/ZIP CodePhone Number [facility] ([facility]) [address] [place] [address] * Blood culture, peripheral #2 (04/06/2025 7:35 AM EDT) Only the most recent of4 resultswithin the time period is included. ComponentValueRef RangeTest MethodAnalysis TimePerformed AtPathologist Signature Blood CultureNo growth at 5 days JES 04/11/2025 8:01 AM [facility])Specimen (Source)Anatomical Location / LateralityCollection Method / VolumeCollection TimeReceived TimeBlood Venous blood specimen / UnknownVenipuncture / Qklbnau6704/06/2025 7:35 AM EDT 04/06/2025 7:40 AM EDT Narrative Authorizing ProviderResult TypeResult StatusJayjay FAJARDO MICROBIOLOGY - GENERAL ORDERABLESFinal ResultPerforming OrganizationAddressCity/State/ZIP Code Phone Number [facility] ([facility]) [address] [facility] [place] [address] * (ABNORMAL) Hepatic function panel (04/06/2025 3:21 AM EDT)ComponentValueRef RangeTest MethodAnalysis TimePerformed AtPathologist SignatureTotal Bilirubin 0.60.3 - 1.0 mg/dL04/06/2025 6:58 AM [facility] ([facility])Bilirubin, Direct0.20 - 0.2 mg/dL04/06/2025 6:58 AM [facility] ([facility])Alkaline Dcolhfjkfza0367 - 104 U/L04/06/2025 6:58 AM [facility])AST23 13 - 39 U/L04/06/2025 6:58 AM [facility] ([facility])ALT (SGPT)127 - 52 U/L04/06/2025 6:58 AM [facility] ([facility])Total Protein4.7(L)6.0 - 8.3 g/dL04/06/2025 6:58 AM [facility] ([facility])Albumin2.4(L)3.5 - 5.7 g/dL04/06/2025 6:58 AM [facility] ([facility])Specimen (Source) Anatomical Location / LateralityCollection Method / VolumeCollection Time Received TimeBloodVenous blood specimen / UnknownVenipuncture / Unknown 04/06/2025 3:21 AM EDT04/06/2025 4:12 AM EDT Narrative Authorizing ProviderResult TypeResult StatusJayjay FAJARDO BLOOD ORDERABLES Final ResultPerforming OrganizationAddressCity/State/ZIP CodePhone Number [facility] ([facility]) [address] [place] [address] * CT abdomen pelvis wo IV contrast (04/05/2025 5:44 PM EDT)Anatomical Region LateralityModalityBody, Pelvis, AbdomenComputed TomographySpecimen (Source) Anatomical Location / LateralityCollection Method / VolumeCollection Time Received Time04/05/2025 6:33 PM EDT Impressions 04/05/2025 6:43 PM [...] CT ABDOMEN AND PELVIS WITHOUT CONTRAST COMPARISON: ??09/21/2024 CT abdomen and pelvis, ultrasound kidney transplant 04/01/2025 CLINICAL HISTORY: Post transplant abdominal pain. TECHNIQUE: Unenhanced axial images were obtained from the lung bases to the pubic symphysis with sagittal and coronal 2D reformatted images. Oral contrast administered: ??No. ??Automatic exposure control (AEC) was utilized. Findings: Trace pericardial fluid. Mild coronary artery calcification. Subcentimeter hypoattenuating probable benign cyst or hemangioma in the right hepatic lobe. Gallbladder is present. 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 Liver and spleen demonstrate no acute findings given compromised evaluation without intravenous contrast. Normal adrenal glands. Atrophic ruby kidneys left worse than right are benign-appearing [...] evaluation without intravenous contrast. Normal adrenalglands. Atrophic ruby kidneys left worse than right are benign-appearing [...] as reasonably achievable. Electronically signed: Mark Cutler. Authorizing ProviderResult TypeResult StatusJayjay Robin MDIMG CT PROCEDURESFinal Result * (ABNORMAL) POCT occult blood stool manually resulted (04/05/2025 5:12 PM EDT) ComponentValueRef RangeTest MethodAnalysis TimePerformed AtPathologist SignatureFecal Occult BloodPositiveQC Pass/FailPassedQC LOT #642QC Expiration Date03/28Specimen (Source)Anatomical Location / LateralityCollection Method / VolumeCollection TimeReceived DbyfBzqdx28/04/2025 5:12 PM EDT Narrative Authorizing ProviderResult TypeResult StatusRolanda TurciosCPOINT OF CARE TEST ENTER/EDIT ORDERABLESFinal Result * Lactic acid with 4 hour reflex (04/05/2025 4:51 PM EDT)ComponentValueRef Range Test MethodAnalysis TimePerformed AtPathologist SignatureLactate1.10.5 - 2.2 mmol/L04/05/2025 5:19 PM [facility] ([facility])Specimen (Source) Anatomical Location / LateralityCollection Method / VolumeCollection Time Received TimeBloodVenous blood specimen / UnknownVenipuncture / Unknown 04/05/2025 4:51 PM EDT04/05/2025 4:54 PM EDT Narrative Authorizing ProviderResult TypeResult StatusRolanda Aviles-CLAB BLOOD ORDERABLESFinal ResultPerforming OrganizationAddressCity/State/ZIP CodePhone Number [facility] ([facility]) [address] [place] [address] * APTT (04/05/2025 4:51 PM EDT) Only the most recent of2 resultswithin the time period is included. ComponentValueRef RangeTest MethodAnalysis TimePerformed AtPathologist Signature aPTT33.725.0 - 35.0 Femjnny0804/05/2025 5:28 PM [facility]UN[facility] Comment:Clinical significance of the APTT is questionable in the presence of heparin.Specimen (Source)Anatomical Location / LateralityCollection Method / VolumeCollection TimeReceived TimeBloodVenous blood specimen / Unknown Venipuncture / Urelswf0604/05/2025 4:51 PM EDT04/05/2025 4:54 PM EDT Narrative Authorizing ProviderResult TypeResult StatusJulie St. Jesus ZUNIGA BLOOD ORDERABLESFinal ResultPerforming OrganizationAddressCity/State/ZIP CodePhone Number [facility]) [address] [place] [address] * Ferritin (04/01/2025 4:18 AM EDT)ComponentValueRef RangeTest MethodAnalysis TimePerformed AtPathologist NkektaovyBfbxufxf666.024.0 - 336.0 ng/mL04/01/2025 5:32 AM [facility])Specimen (Source)Anatomical Location / LateralityCollection Method / VolumeCollection TimeReceived TimeBloodVenous blood specimen / UnknownVenipuncture / Sioaygh1804/01/2025 4:18 AM EDT04/01/2025 4:48 AM EDT Narrative Authorizing ProviderResult TypeResult StatusKnicole FAJARDO BLOOD ORDERABLES Final ResultPerforming OrganizationAddressCity/State/ZIP CodePhone Number [facility]) [address] [place] [id number] * HIV COMBO 4G (04/01/2025 12:13 AM EDT) Only the most recent of2 resultswithin the time period is included. ComponentValueRef RangeTest MethodAnalysis TimePerformed AtPathologist Signature HIV Combo 2NVwkznmqwPlbshatd08/31/2025 1:21 AM [facility]) Specimen (Source)Anatomical Location / LateralityCollection Method / Volume Collection TimeReceived TimeBloodVenous blood specimen / UnknownVenipuncture / Alqnxsb8504/01/2025 12:13 AM EDT04/01/2025 12:36 AM EDT Narrative Authorizing ProviderResult TypeResult StatusKnicole Robin MDLAB BLOOD ORDERABLES Final ResultPerforming OrganizationAddressCity/State/ZIP CodePhone Number [facility]) [address] [place] [address] * Hepatitis B Surface Antibody (04/01/2025 12:13 AM EDT) Only the most recent of2 resultswithin the time period is included. ComponentValueRef RangeTest MethodAnalysis TimePerformed AtPathologist Signature Hepatitis B Surface Ab2.17mIU/mL04/01/2025 1:21 AM [facility]) Comment: INTERPRETATION: NONREACTIVE <8.00 mIU/mL INDETERMINATE 8.00 - 12.00 mIU/mL REACTIVE >12 mIU/mL Specimen (Source)Anatomical Location / LateralityCollection Method / Volume Collection TimeReceived TimeBloodVenous blood specimen / UnknownVenipuncture / Ejdusgc1604/01/2025 12:13 AM EDT04/01/2025 12:36 AM EDT Narrative Authorizing ProviderResult TypeResult StatusKunatuan Robin MDLAB BLOOD ORDERABLES Final ResultPerforming OrganizationAddressCity/State/ZIP CodePhone Number [facility]) [address] [place] [address] * Hepatitis C antibody (04/01/2025 12:13 AM EDT) Only the most recent of2 resultswithin the time period is included. ComponentValueRef RangeTest MethodAnalysis TimePerformed AtPathologist Signature Hepatitis C IyIrxwmdpstwyBcaovrxswzk34/31/2025 1:26 AM [facility] ([facility])Specimen (Source)Anatomical Location / LateralityCollection Method / VolumeCollection TimeReceived TimeBloodVenous blood specimen / Unknown Venipuncture / Lopyhao3404/01/2025 12:13 AM EDT04/01/2025 12:36 AM EDT Narrative Authorizing ProviderResult TypeResult StatusKnicole Robin MDLAB BLOOD ORDERABLES Final ResultPerforming OrganizationAddressCity/State/ZIP CodePhone Number [facility]) [address] [place] [address] * Hepatitis B core antibody, total (04/01/2025 12:13 AM EDT) Only the most recent of2 resultswithin the time period is included. ComponentValueRef RangeTest MethodAnalysis TimePerformed AtPathologist Signature Hep B Core Total HfPehyspkurnwExwrdbvuurr67/31/2025 1:23 AM [facility])Specimen (Source)Anatomical Location / LateralityCollection Method / VolumeCollection TimeReceived TimeBloodVenous blood specimen / Unknown Venipuncture / Ikksqys3104/01/2025 12:13 AM EDT04/01/2025 12:36 AM EDT Narrative Authorizing ProviderResult TypeResult StatusKunal Lobito MDLAB BLOOD ORDERABLES Final ResultPerforming OrganizationAddressCity/State/ZIP CodePhone Number [facility]) [address] [place] [address] * Hepatitis B surface antigen (04/01/2025 12:13 AM EDT) Only the most recent of2 resultswithin the time period is included. ComponentValueRef RangeTest MethodAnalysis TimePerformed AtPathologist Signature Hepatitis B Surface KqVqvzczeppoiSwpufvcswah92/31/2025 1:24 AM [facility])Specimen (Source)Anatomical Location / LateralityCollection Method / VolumeCollection TimeReceived TimeBloodVenous blood specimen / Unknown Venipuncture / Jzqwzoo1504/01/2025 12:13 AM EDT04/01/2025 12:36 AM EDT Narrative Authorizing ProviderResult TypeResult StatusKunal Lobito MDLAB BLOOD ORDERABLES Final ResultPerforming OrganizationAddressCity/State/ZIP CodePhone Number [facility]) [address] [place] [address] * Potassium (04/01/2025 12:13 AM EDT) Only the most recent of2 resultswithin the time period is included. ComponentValueRef RangeTest MethodAnalysis TimePerformed AtPathologist Signature Potassium4.43.5 - 5.1 mmol/L04/01/2025 12:57 AM [facility]) Specimen (Source)Anatomical Location / LateralityCollection Method / Volume Collection TimeReceived TimeBloodVenous blood specimen / UnknownVenipuncture / Pgkelpp4404/01/2025 12:13 AM EDT04/01/2025 12:36 AM EDT Narrative Authorizing ProviderResult TypeResult StatusKunal Lobito MDLAB BLOOD ORDERABLES Final ResultPerforming OrganizationAddressCity/State/ZIP CodePhone Number [facility] ([facility]) [address] [place], [place] [id number] * Peripheral IV (03/31/2025 6:38 PM EDT) Iam Mueller MD - 03/31/2025 6:38 PM EDT Iam Blair MD 04/01/2025 3:36 AM Peripheral IV Date/Time: 03/31/2025 6:38 PM Inserted by: Rich Combs MD Placement Needle size: 18 G Laterality: left Location: hand Local anesthetic: none Site prep: alcohol Technique: anatomical landmarks Attempts: 1 Authorizing ProviderYaritzault MaricruzResult Irma JEONG ORDERABLESFinal Result * DC AN ELECTIVE ENDOTRACHEAL AIRWAY (03/31/2025 6:36 PM EDT) Iam Mueller MD - 03/31/2025 6:36 PM EDT Iam Blair MD 04/01/2025 3:37 AM Airway Date/Time: 03/31/2025 6:36 PM Reason: elective Airway not difficult General Information and Staff Patient location during procedure: OR Anesthesiologist: Iam Blair MD Resident/AIRPORT CONTROL OPERATOR/CAA: Anthony Frank MD Performed: resident/AIRPORT CONTROL OPERATOR/CAA Patient Condition Indications for airway management: anesthesia [...] 1 Number of other approaches attempted: 0 Authorizing ProviderResult TypeYaritzault Irma JEONG ORDERABLESFinal Result * Cytomegalovirus antibody, IgG (03/31/2025 3:49 PM EDT)ComponentValueRef Range Test MethodAnalysis TimePerformed AtPathologist SignatureCytomegalovirus IgG Ab JkwlnowikwuibsLeddfqzm14/05/2025 12:16 PM [facility] ([facility]) CYTOMEGALOVIRUS IGG ANTIBODY>10.00U/mL04/06/2025 12:16 PM [facility] ([facility])Comment: NORMAL RANGES: < 0.60 NEGATIVE ; NO DETECTABLE IgG ANTIBODY TO CMV >= 0.60 and < 0.70 EQUIVOCAL; REPEAT TESTING SUGGESTED >= 0.70 POSITIVE ; INDICATES PRESENCE OF DETECTABLE IgG ANTIBODY TO CM Specimen (Source)Anatomical Location / LateralityCollection Method / Volume Collection TimeReceived TimeBloodVenous blood specimen / UnknownVenipuncture / Nzpqzea5503/31/2025 3:49 PM EDT03/31/2025 4:07 PM EDT Narrative Authorizing ProviderResult TypeResult StatusJayjay FAJARDO BLOOD ORDERABLES Final ResultPerforming OrganizationAddressCity/State/ZIP CodePhone Number [facility] ([facility]) [address] [place] [address] * Type and screen (03/31/2025 3:49 PM EDT)ComponentValueRef RangeTest Method Analysis TimePerformed AtPathologist SignatureABO AwhuphmkY27/30/2025 5:07 PM [facility] BLOOD BANKRh GwodNXT1303/31/2025 5:07 PM [facility] BLOOD BANKAb ScrnNEG 03/31/2025 5:07 PM [facility] BLOOD BANKSpecimen (Source)Anatomical Location / LateralityCollection Method / VolumeCollection TimeReceived TimeBloodVenous blood specimen / UnknownVenipuncture / Ssfvgoq4203/31/2025 3:49 PM EDT03/31/2025 4:06 PM EDT Narrative Authorizing ProviderResult TypeResult StatusJayjay FAJARDO BLOOD BANK TEST ORDERABLESFinal ResultPerforming OrganizationAddressCity/State/ZIP CodePhone Number [facility] BLOOD BANK * donor crossmatch (03/22/2025 1:30 PM EDT)ComponentValueRef RangeTest MethodAnalysis TimePerformed AtPathologist SignatureTested [id number] 03/31/2025 8:46 PM [facility] ([facility])Donor HbobKDX7200 DONOR 03/31/2025 8:46 PM EDTUTMC TISSUE TYPING ([facility]OTRAC)Crossmatch Overall Result Zizyjzyc79/30/2025 8:46 PM EDTUTMC TISSUE TYPING ([facility]ISTOTRAC)Sample Number [id number] 8:46 PM EDTUTMC TISSUE TYPING ([facility]OTRAC)Sera Date 8:46 PM EDTUTMC TISSUE TYPING (HISTOTRAC)T Cell Channel Rznvy400003/31/2025 8:46 PM EDTUTMC TISSUE TYPING (HISTOTRAC)B Cell Channel Vlqtq730 8:46 PM EDTUTMC TISSUE TYPING (HISTOTRAC)Sample Number 2 [id number] 8:46 PM EDTUTMC TISSUE TYPING (HISTOTRAC)Sera Date 2 8:46 PM EDTUTMC TISSUE TYPING (HISTOTRAC)T Cell Channel Shift 8:46 PM EDTUTMC TISSUE TYPING (HISTOTRAC)B Cell Channel Shift 8:46 PM EDTUTMC TISSUE TYPING (HISTOTRAC)Performed ByFLOW 03/31/2025 8:46 PM EDTUTMC TISSUE TYPING (HISTOTRAC)CommentsFinal Crossmatch retrospective to transplant. Patient met criteria for surgeon to waive a prospective final crossmatch.03/31/2025 8:46 PM EDTUTMC TISSUE TYPING ([facility]OTRAC)Signed BySigned by Ghazal Stovall CHT(ACHI) MT(ASCP), Plant Attendant Or Assistant Operator Transplant Hvzbbeombu35/30/2025 8:46 PM EDTUTMC TISSUE TYPING (HISTOTRAC) Specimen (Source)Anatomical Location / LateralityCollection Method / Volume Collection TimeReceived TimeBloodVenous blood specimen / UnknownVenipuncture / Nuodypu5703/22/2025 1:30 PM EDT03/22/2025 2:34 PM EDT Narrative Authorizing ProviderResult TypeResult StatusKunatuan Robin MDLAB BLOOD ORDERABLES Final ResultPerforming OrganizationAddressCity/State/ZIP CodePhone Number [facility] TISSUE TYPING ([facility]ISTOTRAC) [address] [place] [address], [place] [phone] * (ABNORMAL) Urinalysis with microscopic (03/22/2025 1:30 PM EDT)ComponentValue Ref RangeTest MethodAnalysis TimePerformed AtPathologist SignatureColor, Urine ColorlessColorless, Yellow, Light-Wybjed5203/22/2025 5:22 PM [facility] ([facility])Clarity, NhjstBkxnqNkmxx75/21/2025 5:22 PM [facility] ([facility])Specific [place], Urine1.0101.010 - 1.9054803/22/2025 5:22 PM [facility] ([facility])pH, Urine7.05.0 - 8.0 pH03/22/2025 5:22 PM [facility] ([facility])Leukocytes, XhlmoGfdtzmugNsvthhoq79/21/2025 5:22 PM EDT [facility] ([facility])Nitrite, IchuyXvsjzxskQgftrqwv49/21/2025 5:22 PM EDT [facility] ([facility])Protein, Jxiyu218(A)Negative mg/dL03/22/2025 5:22 PM [facility] ([facility])Glucose, UrineNormalNormal mg/dL03/22/2025 5:22 PM [facility] ([facility])Bilirubin, XbfjbMbpwnzwfMwvaebto18/21/2025 5:22 PM [facility] ([facility])Ketones, UrineNegativeNegative mg/dL 03/22/2025 5:22 PM [facility] ([facility])Urobilinogen, UrineNormal Normal mg/dL03/22/2025 5:22 PM [facility] ([facility])Blood, Urine QqsbsbxiWddfgtfi22/21/2025 5:22 PM [facility] ([facility])RBC, Urine0-2 None Seen, 0-2 /HPF03/22/2025 5:22 PM [facility] ([facility])WBC, Urine 0-2None Seen, 0-2 /HPF03/22/2025 5:22 PM [facility] ([facility])Squamous Epithelial, UrineNone SeenNone Seen, Occasional, Few /LPF03/22/2025 5:22 PM [facility] ([facility])Specimen (Source)Anatomical Location / Laterality Collection Method / VolumeCollection TimeReceived TimeUrineUrine specimen obtained by clean catch procedure / UnknownNon-blood Collection / Unknown 03/22/2025 1:30 PM EDT03/22/2025 5:03 PM EDT Narrative Authorizing ProviderResult TypeResult StatusShobbisi FAJARDO URINE ORDERABLES Final ResultPerforming OrganizationAddressCity/State/ZIP CodePhone Number [facility] ([facility]) [address] [place], [place] [id number] from Last 3 Months Insurance Advance Directives * Full Code (Latest Code Status on File) Date ActivatedDate BialvnlgjjcKxrfkoxa91/10/2025 3:47 PM10 9:11 PM * Full Code Date ActivatedDate InactivatedComments04/28/2025 5:50 PM10 1:31 PM * Full Code Date ActivatedDate InactivatedComments04/05/2025 4:59 PM04/11/2025 7:39 PM * Full Code Date ActivatedDate InactivatedComments03/31/2025 10:16 PM04/04/2025 5:50 PM * Full Code Date ActivatedDate InactivatedComments03/31/2025 8:46 PM03/31/2025 10:16 PM Care Teams Team MemberRelationshipSpecialtyStart DateEnd Date Ghazal Cevallos MD [address] [place] [address], [address] [place] [address] PCP - GeneralInternal Medicine09/21/24 Ghazal Tan MD [address] [place] [phone] Consulting PhysicianUrology04/07/25
--- OUTSIDE RECORDS SUMMARY | 2025-05-26 13:56 | XMS_ITS | Encounter Summary ---
Author Organization [facility] Address [id number] [address] [place] [address] Care Team Providers Care Grapple Yarder Operator Name Role Phone Abebe Stewart MD Primary Care Provider [phone] Encounter Details DateTypeDepartmentCare Team (Latest Contact Info)Zzqkgohmhcf16/28/2025External Services Encounter [facility] Neurology, A Department of [facility] [address] [facility] [address] [place] [address] Quinten Schwartz MD [address] [facility] [address] [place] [phone] Social History Tobacco UseTypesPacks/DayYears UsedDateSmoking Tobacco: NeverSmokeless Tobacco: NeverAlcohol UseStandard Drinks/WeekCommentsNot Currently0 (1 standard drink = 0.6 oz pure alcohol)AUDIT-CAnswerDate RecordedQ1: How often do you have a drink containing alcohol?Never09/12/2020Q2: How many drinks containing alcohol do you have on a typical day when you are drinking?1 or Q3: How often do you have six or more drinks on one occasion?Never09/12/2020HQ-2AnswerDate Recorded Total Orvug697hildcareAnswerDate SfommfvrNjcscjrzxEwgdlvg60/12/2019 EmploymentAnswerDate BrxgruruUyckbatccaNpyvnae71/12/2019Hunger ScreeningAnswer Date RecordedWithin the past 12 months we worried whether our food would run out before we got money to buy more.Never True05/23/2024Within the past 12 months the food we bought just didn't last and we didn't have money to get more.Never True4Purpose - LifeAnswerDate RecordedPurpose and direction in life Ksoowva4409/12/2020ex and Gender InformationValueDate RecordedSex Assigned at BirthNot on fileLegal OmbDmxg1103/07/2015 11:39 AM EDTGender IdentityNot on file Sexual [...] Team MemberRelationshipSpecialtyStart DateEnd Date Abebe Stewart MD [address] [place] [address], [address] [place] [address] PCP - HawvadtWtromojxyl76/20/17documented as of this encounter
--- OUTSIDE RECORDS SUMMARY | 2025-05-26 13:56 | XMS_ITS | Encounter Summary ---
Author Organization [facility] Address [address] [place] [address] Care Team Providers Care Gun Examiner Name Role Phone Abebe Stewart MD Primary Care Provider [phone] Abebe Tan MD Unavailable Encounter Details DateTypeDepartmentCare Team (Latest Contact Info)Rswctgzzvig03/13/2025Refill [facility] Transplant [address] [place] [phone] Rosa Nix MA Encounter for aftercare following kidney transplant; Bilateral lower extremity edema Social History Tobacco UseTypesPacks/DayYears UsedDateSmoking Tobacco: EvgmvfUqdcqkdvdf4092 - 1974Passive Smoke Exposure: PastSmokeless Tobacco: NeverAlcohol UseStandard Drinks/WeekCommentsYes0 (1 standard drink = 0.6 oz pure alcohol)[facility] UtilitiesAnswerDate RecordedIn the past 12 months has the [employer] gas, oil, or water [employer] threatened to shut off services in your [...] times a week04/05/2025How often do you attend methodist or jehovah's witness services?Never04/05/2025Do you belong to any clubs or organizations such as methodist groups, unions, fraAlphaSights or athletic groups, or school groups?No04/05/2025How often do you attend meetings of the clubs or organizations you belong to?Never04/05/2025re you , , , , never , or living with a partner?Csvouyyhy99/04/2025UDIT-C AnswerDate RecordedQ1: How often do you have [...] heating?Not very hard05/11/2025 PHQ-2AnswerDate RecordedPatient Health Questionnaire-2 Bigzw076Finfillmore [facility] [place] of Occupational Health - Occupational Stress QuestionnaireAnswerDate RecordedDo you feel stress - tense, restless, nervous, or anxious, or unable to sleep at night because yourmind is troubled all the time - these days?Only a secwnw1504/05/2025TransportationAnswerDate RecordedIn the past 12 months, has lack [...] Assigned at BirthMale 09/21/2025 6:43 AM ESTLegal ExlWkyp4801/29/2022 12:45 AM EDTGender IdentityMale 09/21/2024 7:43 AM ESTSexual OrientationHeterosexual or Xupcqrjo63/20/2025 7:43 AM ESTdocumented as of this encounter Functional Status * BPAnswerDate of YinvngoxcpAbgfub850/ 9:07 AM Niurka Huggins MA * PulseAnswerDate of FhiplabzthVkelsn3165/15/2025 9:07 AM Niurka Huggins MA * Patient PositionAnswerDate of HctxiubbtkSpkdtlIjebgjj28/13/2025 8:50 AM EDT Jina Sanders MA * Fall RiskQuestionAnswerDate of AssessmentAuthorWorried about fallin 05/16/2025 9:07 AM Niurka Huggins MAOne or more falls in the last year:No 05/16/2025 9:07 AM Niurka Huggins MAFeels unsteady when walkin 9:07 AM Niurka Huggins MA * BPAnswerDate of PoybwwualnLtdima070/ 9:07 AM Niurka Huggins MA * TempAnswerDate of IzqpgpqnktPkvvvb18.91 9:07 AM Niurka Huggins MA * Temp srcAnswerDate of FnngznisqeSveqwmTlok24/ 8:50 AM Jina Saleem MA * PulseAnswerDate of QjsddotlrbMjjiwm7769/15/2025 9:07 AM Niurka Huggins MA * RespAnswerDate of EvkrzibsmcNimmlg7059/15/2025 9:07 AM Niurka Huggins MA * VxO2BxtqhoDcws of FozsrxpsozJagtww5292/15/2025 9:07 AM Niurka Huggins MA * Over the past 2 weeks, how often have you been bothered by any of the following problems?QuestionAnswerDate of AssessmentAuthorThoughts that you would be better off or hurting yourself in some wayNot at all05/16/2025 9:07 AM Niurka Huggins MAPatient Health Questionnaire-9 Dcbdv665 9:07 AM Niurka Huggins MATrouble falling or [...] 9:07 AM Niurka Huggins MAPatient Health Questionnaire-2 Ewugr125 9:07 AM Niurka Huggins MA * BP LocationAnswerDate of AssessmentAuthorLeft arm05/14/2025 8:50 AM Jina Saleem MA * Patient PositionAnswerDate of DkfnjuluxaCphtfvGpxbvaj93/13/2025 8:50 AM LAURENT Jina Sanders MA documented as of this encounter Plan of Treatment DateTypeDepartmentCare Team (Latest Contact Info)Tsdaitzenkv43/28/2025 8:00 AM EDTFollow-Up [facility] [place] [phone] [place] [phone] 05/29/2025 2:00 PM EDTAppointment [facility] [place] [place] [phone] 06/11/2025 9:00 AM ESTFollow-Up [facility] [place] [phone] [place] [phone] 06/19/2025 10:30 AM ESTFoow-[facility] [place] [phone] Izaiah Singh, ESPERANZA [address] [place] [id number] 06/25/2025 11:00 AM ESTFollow-[facility] [address] [place] [address] [place] [phone] Sera Silverio, ESPERANZA [address] [place] [address] documented as of this encounter Visit Diagnoses Diagnosis Encounter for aftercare following kidney transplant Bilateral lower extremity edema documented in this encounter Care Teams Team MemberRelationshipSpecialtyStart DateEnd Date Abebe Stewart MD [address] [place] [address], [address] [place] [address] PCP - GeneralInternal Medicine09/21/24 Abebe Tan MD [address] [place] [address] Consulting PhysicianUrology04/07/25documented as of this encounter
--- OUTSIDE RECORDS SUMMARY | 2025-05-26 13:56 | XMS_ITS | Encounter Summary ---
Author Organization [facility] Address [address] [place] [address] Care Team Providers Care Licensing Representative Name Role Phone Abebe Stewart MD Primary Care Provider [phone] Abebe Tan MD Unavailable Encounter Details DateTypeDepartmentCare Team (Latest Contact Info)Llphmmpigbt28/22/2025Orders Only [facility] Transplant [address] [place] [address] Zahra Rhoades, JUANA Urinary tract infection without hematuria, site unspecified (Primary Dx) Social History Tobacco UseTypesPacks/DayYears UsedDateSmoking Tobacco: NlexedHyogcweopd7937 - 1974Passive Smoke Exposure: PastSmokeless Tobacco: NeverAlcohol UseStandard Drinks/WeekCommentsYes0 (1 standard drink = 0.6 oz pure alcohol)[facility] UtilitiesAnswerDate RecordedIn the past 12 months has the [employer], gas, oil, or water [employer] threatened to shut off services in [...] times a week04/05/2025How often do you attend quaker or yazdanism services?Never04/05/2025Do you belong to any clubs or organizations such as quaker groups, unions, [employer]a [employer] or athletic groups, or school groups?No04/05/2025How often do you attend meetings of the clubs or organizations you belong to?Never04/05/2025re you , , , , never , or living with a partner?Nngtbamdk05/04/2025UDIT-C AnswerDate RecordedQ1: How often do you have [...] heating?Not very hard05/11/2025 PHQ-2AnswerDate RecordedPatient Health Questionnaire-2 Vxquy377Finsanpete [facility] [place] of Occupational Health - Occupational Stress QuestionnaireAnswerDate RecordedDo you feel stress - tense, restless, nervous, or anxious, or unable to sleep at night because yourmind is troubled all the time - these days?Only a tsbtmt6004/05/2025TransportationAnswerDate RecordedIn the past 12 months, has lack [...] were you homeless or living in a residential (including now)?No05/11/2025Hunger Vital SignAnswerDate Recorded Within the past 12 months, you worried that your food would run out before you got the money to buymore.Never true05/11/2025Within the past 12 months, the food you bought just didn't last and you didn't have money to get more.Never true 05/11/2025Sex and Gender InformationValueDate RecordedSex Assigned at BirthMale 09/21/2024 6:43 AM ESTLegal VkbUspg0601/29/2022 12:45 AM EDTGender IdentityMale 09/21/2024 7:43 AM ESTSexual OrientationHeterosexual or Yzmcxmua99/20/2025 7:43 AM ESTdocumented as of this encounter Plan of Treatment DateTypeDepartmentCare Team (Latest Contact Info)Ttwmrgoepxs21/28/2025 8:00 AM EDTFollow-Up [facility] Transplant [address] [place] [phone] [place] [address] 05/29/2025 2:00 PM EDTAppointment [facility] US IMAGING [address] [place] [phone] 06/11/2025 9:00 AM ESTFollow-Up [facility] Transplant [address] [place] [phone] [place] [phone] 06/19/2025 10:30 AM ESTFollow-Up [facility] [place] [phone] Izaiah Singh, TOOL DESIGN DRAFTSPERSON [address] [place] [address] 06/25/2025 11:00 AM ESTFollow-[facility] [address] [place] [address] [place] [phone] Sera Silverio CNP [address] [place] [address] documented as of this encounter Visit Diagnoses Diagnosis Urinary tract infection without hematuria, site unspecified- Primary documented in this encounter Care Teams Team MemberRelationshipSpecialtyStart DateEnd Date Abebe Stewart MD [address] [place] [address], [address] [place] [address] PCP - GeneralInternal Medicine09/21/24 Abebe Tna MD [address] [place] [phone] Consulting PhysicianUrology04/07/25documented as of this encounter
--- OUTSIDE RECORDS SUMMARY | 2025-05-26 13:56 | XMS_ITS | Encounter Summary ---
Author Organization [facility] Address [address] [place] [address] Care Team Providers Care Accounting Technician Name Role Phone Abebe Stewart MD Primary Care Provider [phone] Abebe Tan MD Unavailable Encounter Details DateTypeDepartmentCare Team (Latest Contact Info)Wdvwqmnvatj45/24/2025ommunity Orders [facility] Transplant [address] [place] [address] Britni Jensen RN Elevated serum creatinine Social History Tobacco UseTypesPacks/DayYears UsedDateSmoking Tobacco: UwxnegZdbfobshhc8406 - 1974Passive Smoke Exposure: PastSmokeless Tobacco: NeverAlcohol UseStandard Drinks/WeekCommentsYes0 (1 standard drink = 0.6 oz pure alcohol)[facility] UtilitiesAnswerDate RecordedIn the past 12 months has the [employer], gas, oil, or water [employer] threatened to shut off services in your [...] times a week04/05/2025How often do you attend presybeterian or amish services?Never04/05/2025Do you belong to any clubs or organizations such as presybeterian groups, unions, fraAlgotochip or athletic groups, or school groups?No04/05/2025How often do you attend meetings of the clubs or organizations you belong to?Never04/05/2025re you , , , , never , or living with a partner?Ihwxbmqay33/04/2025UDIT-C AnswerDate RecordedQ1: How often do you have [...] heating?Not very hard05/11/2025 PHQ-2AnswerDate RecordedPatient Health Questionnaire-2 Wqhzk627Fincentral valley medical center [place] of Occupational Health - Occupational Stress QuestionnaireAnswerDate RecordedDo you feel stress - tense, restless, nervous, or anxious, or unable to sleep at night because yourmind is troubled all the time - these days?Only a ilejht9204/05/2025TransportationAnswerDate RecordedIn the past 12 months, has lack [...] were you homeless or living in a detention (including now)?No05/11/2025Hunger Vital SignAnswerDate Recorded Within the past 12 months, you worried that your food would run out before you got the money to buymore.Never true05/11/2025Within the past 12 months, the food you bought just didn't last and you didn't have money to get more.Never true 05/11/2025Sex and Gender InformationValueDate RecordedSex Assigned at BirthMale 09/21/2024 6:43 AM ESTLegal AhkYvcg5901/29/2022 12:45 AM EDTGender IdentityMale 09/21/2024 7:43 AM ESTSexual OrientationHeterosexual or Dzoeejxn89/20/2025 7:43 AM ESTdocumented as of this encounter Plan of Treatment DateTypeDepartmentCare Team (Latest Contact Info)Vtebrwdeieh42/28/2025 8:00 AM EDTFollow-Up [facility] Transplant [address] [place] [phone] [place] [phone] 05/29/2025 2:00 PM EDTAppointment [facility] US IMAGING [address] [place] [phone] 06/11/2025 9:00 AM ESTFollow-Up [facility] Transplant [address] [place] [phone] Jayjay Robin MD [address] [place] [address] 06/19/2025 10:30 AM ESTFollow-Up [facility] [address] [place] [phone] Izaiah Singh, RETAIL LOSS PREVENTION SPECIALIST [address] [place] [address] 06/25/2025 11:00 AM ESTFollow-Up [facility] Neurology [address] [place] [phone] Sera Silverio CNP [address] [place] [address] documented as of this encounter Visit Diagnoses Diagnosis Elevated serum creatinine Other nonspecific findings on examination of blood documented in this encounter Care Teams Team MemberRelationshipSpecialtyStart DateEnd Date Abebe Stewart MD [address] [place] [address], [address] [place], [place] [id number] PCP - GeneralInternal Medicine09/21/24 Abebe Tan MD [address] [place] [address] Consulting PhysicianUrology04/07/25documented as of this encounter
--- OUTSIDE RECORDS SUMMARY | 2025-05-26 13:56 | XMS_ITS | Clinical Summary ---
Author Organization [facility] Address [address] [place] [address] Care Team Providers Care Nurse Monitoring Name Role Phone Unavailable Primary Care Provider Unavailabl e Social History Tobacco UseTypesPacks/DayYears UsedDateSmoking Tobacco: Never AssessedSex and Gender InformationValueDate RecordedSex Assigned at BirthNot on fileLegal Sex Male10/14/2022 7:30 PM EDTGender IdentityNot on fileSexual OrientationNot on file Plan of Treatment Not on file
--- OUTSIDE RECORDS SUMMARY | 2025-05-26 13:56 | XMS_ITS | Encounter Summary ---
Author Organization [facility] Address [address] [address] Care Team Providers Care Gauge And Weigh Machine Adjuster Name Role Phone Abebe Stewart MD Primary Care Provider [phone] Abebe Tan MD Unavailable Encounter Details DateTypeDepartmentCare Team (Latest Contact Info)Zwcjoeaodex67/17/2025Telephone [facility] 5ABCD Surgery Stepdown [address] [place] [address] Regla Doyle RN Social History Tobacco UseTypesPacks/DayYears UsedDateSmoking Tobacco: NcduqbSubggseahw1921 - 1974Passive Smoke Exposure: PastSmokeless Tobacco: NeverAlcohol UseStandard Drinks/WeekCommentsYes0 (1 standard drink = 0.6 oz pure alcohol)[facility] UtilitiesAnswerDate RecordedIn the past 12 months has the [employer], gas, oil, or water [employer] threatened to shut off services in your [...] times a week04/05/2025How often do you attend alevism or confucianism services?Never04/05/2025Do you belong to any clubs or organizations such as alevism groups, unions, fraternal or athletic groups, or school groups?No04/05/2025How often do you attend meetings of the clubs or organizations you belong to?Never04/05/2025re you , , , , never , or living with a partner?Ytibknigg97/04/2025UDIT-C AnswerDate RecordedQ1: How often do you have [...] heating?Not very hard05/11/2025 PHQ-2AnswerDate RecordedPatient Health Questionnaire-2 [id number] [place] of Occupational Health - Occupational Stress QuestionnaireAnswerDate RecordedDo you feel stress - tense, restless, nervous, or anxious, or unable to sleep at night because yourmind is troubled all the time - these days?Only a vvilcx4404/05/2025TransportationAnswerDate RecordedIn the past 12 months, has lack [...] Assigned at BirthMale 09/21/2024 6:43 AM ESTLegal LyfKaax3401/29/2022 12:45 AM EDTGender IdentityMale 09/21/2024 7:43 AM ESTSexual OrientationHeterosexual or Edkhdyfq28/20/2025 7:43 AM ESTdocumented as of this encounter Miscellaneous Notes * Telephone Encounter - Regla Doyle RN - 05/18/2025 8:40 AM EDT Attempted discharge phone call no answer vm leftno HPI disclosed documented in this encounter Plan of Treatment DateTypeDepartmentCare Team (Latest Contact Info)Vhxnzeqxmxg42/28/2025 8:00 AM EDTFollow-Up [facility] Transplant [address] [place] [address] [place] [address] 05/29/2025 2:00 PM EDTAppointment [facility] US IMAGING [address] [place] [address] 06/11/2025 9:00 AM ESTFollow-Up [facility] Transplant [place] [address] Jayjay Robin [place] [address] 06/19/2025 10:30 AM EST[facility] [address] [facility] [place] [address] Izaiah Singh, FIELD MAP TECHNICIAN [address] [place], [place] [id number] 06/25/2025 11:00 AM ESTFollow-[facility] Neurology [address] [place] [address] [place] [address] Sera Silverio, ESPERANZA [address] [place] [address] documented as of this encounter Visit Diagnoses Not on filedocumented in this encounter Care Teams Team MemberRelationshipSpecialtyStart DateEnd Date Abebe Stewart MD [address] [place] [address], [address] [place] [address] PCP - GeneralInternal Medicine09/21/24 Abebe Tan MD [address] [place] [address] Consulting PhysicianUrology04/07/25documented as of this encounter
--- OUTSIDE RECORDS SUMMARY | 2025-05-26 13:57 | XMS_ITS | Encounter Summary ---
Author Organization [facility] Address [address] [place] [address] Care Team Providers Care Telegraph Editor Name Role Phone Abebe Stewart MD Primary Care Provider [phone] Abebe Tan MD Unavailable Encounter Details DateTypeDepartmentCare Team (Latest Contact Info)Remvezbdses48/23/2025Orders Only [facility] Estela Salomon [facility] Infusion [address] [place] [address] Kevin Anderson, PharmD, BCOP Social History Tobacco UseTypesPacks/DayYears UsedDateSmoking Tobacco: NyxsnmXwpfhjhime3312 - 1974Passive Smoke Exposure: PastSmokeless Tobacco: NeverAlcohol UseStandard Drinks/WeekCommentsYes0 (1 standard drink = 0.6 oz pure alcohol)[facility] UtilitiesAnswerDate RecordedIn the past 12 months has the [employer], gas, oil, or water [employer] threatened to shut off services in your [...] times a week04/05/2025How often do you attend latter-day or catholic services?Never04/05/2025Do you belong to any clubs or organizations such as latter-day groups, unions, fraDNage or athletic groups, or school groups?No04/05/2025How often do you attend meetings of the clubs or organizations you belong to?Never04/05/2025re you , , , , never , or living with a partner?Syaquljec81/04/2025UDIT-C AnswerDate RecordedQ1: How often do you have [...] heating?Not very hard05/11/2025 PHQ-2AnswerDate RecordedPatient Health Questionnaire-2 Lpgts876Finfillmore [facility] [place] of Occupational Health - Occupational Stress QuestionnaireAnswerDate RecordedDo you feel stress - tense, restless, nervous, or anxious, or unable to sleep at night because yourmind is troubled all the time - these days?Only a ltjyqy9604/05/2025TransportationAnswerDate RecordedIn the past 12 months, has lack [...] were you homeless or living in a chcf (including now)?No05/11/2025Hunger Vital SignAnswerDate Recorded Within the past 12 months, you worried that your food would run out before you got the money to buymore.Never true05/11/2025Within the past 12 months, the food you bought just didn't last and you didn't have money to get more.Never true 05/11/2025Sex and Gender InformationValueDate RecordedSex Assigned at BirthMale 09/21/2024 6:43 AM ESTLegal QfwWkcx6401/29/2022 12:45 AM EDTGender IdentityMale 09/21/2024 7:43 AM ESTSexual OrientationHeterosexual or Eaobdxle45/20/2025 7:43 AM ESTdocumented as of this encounter Plan of Treatment DateTypeDepartmentCare Team (Latest Contact Info)Olqbleugwwz48/28/2025 8:00 AM EDTFollow-Up [facility] Transplant [address] [place] [address] [place] [address] 05/29/2025 2:00 PM EDTAppointment [facility] US IMAGING [address] [place] [address] 06/11/2025 9:00 AM ESTFollow-Up [facility] Transplant [address] [place] [address] Jayjay Robin MD [address] [place] [address] 06/19/2025 10:30 AM ESTFollow-Up [facility] Cardiology Clinic [address] [place] [address] Izaiah Singh, WATCH REPAIR TECHNICIAN [address] [facility] [place] [address] 06/25/2025 11:00 AM ESTFollow-Up [facility] Medical Pavilion Neurology [address] [place] [address] Sera Silverio, ESPERANZA [address] [facility] [place] [address] documented as of this encounter Visit Diagnoses Not on filedocumented in this encounter Care Teams Team MemberRelationshipSpecialtyStart DateEnd Date Abebe Stewart MD [address] [place] [address], [address] [place] [id number] PCP - GeneralInternal Medicine09/21/24 Abebe Tan MD [address] [facility] [place] [address] Consulting PhysicianUrology04/07/25documented as of this encounter
--- OUTSIDE RECORDS SUMMARY | 2025-05-26 13:57 | XMS_ITS | Encounter Summary ---
Author Organization [facility] Address [address] [place] [address] Care Team Providers Care Tier Lift Operator Name Role Phone Abebe Stewart MD Primary Care Provider [phone] Abebe Tan MD Unavailable Encounter Details DateTypeDepartmentCare Team (Latest Contact Info)Dmasmrgiocl28/23/2025Orders Only [facility] 2A Infusion [address] [place] [address] Bessy German, RN Social History Tobacco UseTypesPacks/DayYears UsedDateSmoking Tobacco: XcsylxFjcdvoudgi9637 - 1974Passive Smoke Exposure: PastSmokeless Tobacco: NeverAlcohol UseStandard Drinks/WeekCommentsYes0 (1 standard drink = 0.6 oz pure alcohol)[facility] UtilitiesAnswerDate RecordedIn the past 12 months has the electric, gas, oil, or water [employer] threatened to shut off services in your [...] times a week04/05/2025How often do you attend evangelical or jain services?Never04/05/2025Do you belong to any clubs or organizations such as evangelical groups, unions, fraPowWowHR or athletic groups, or school groups?No04/05/2025How often do you attend meetings of the clubs or organizations you belong to?Never04/05/2025re you , , , , never , or living with a partner?Epqemmqef20/04/2025UDIT-C AnswerDate RecordedQ1: How often do you have [...] heating?Not very hard05/11/2025 PHQ-2AnswerDate RecordedPatient Health Questionnaire-2 Qxwxq991Finashley [facility] [place] of Occupational Health - Occupational Stress QuestionnaireAnswerDate RecordedDo you feel stress - tense, restless, nervous, or anxious, or unable to sleep at night because yourmind is troubled all the time - these days?Only a nkijvz3504/05/2025TransportationAnswerDate RecordedIn the past 12 months, has lack [...] pay the mortgage or rent on time?No 10/10/2025In the past 12 months, how many times have you moved where you were living?t any time in the past 12 months, were you homeless or living in a care home (including now)?No05/11/2025Hunger Vital SignAnswerDate Recorded Within the past 12 months, you worried that your food would run out before you got the money to buymore.Never true05/11/2025Within the past 12 months, the food you bought just didn't last and you didn't have money to get more.Never true 05/11/2025Sex and Gender InformationValueDate RecordedSex Assigned at BirthMale 09/21/2024 6:43 AM ESTLegal TkzPoiv1801/29/2022 12:45 AM EDTGender IdentityMale 09/21/2024 7:43 AM ESTSexual OrientationHeterosexual or Cibwcvav94/20/2025 7:43 AM ESTdocumented as of this encounter Plan of Treatment DateTypeDepartmentCare Team (Latest Contact Info)Tnekxhnafut11/28/2025 8:00 AM EDTFollow-Up [facility] Transplant [address] [place] [address] Abebe Tan MD [address] [place] [address] 05/29/2025 2:[address] [facility] US IMAGING [address] [place] [address] 06/11/2025 9:00 AM ESTFollow-Up [facility] Transplant [address] [place] [address] Jayjay Robin MD [address] [place] [address] 06/19/2025 10:30 AM ESTFollow-Up [facility] Cardiology Clinic [address] [place] [address] Izaiah Singh, REFRACTORY REPAIRER [address] [place], [place] [id number] 06/25/2025 11:00 AM ESTFollow-Up [facility] Medical Pavilion Neurology [address] [place] [address] Sera Silverio CNP [address] [place] [address] documented as of this encounter Visit Diagnoses Not on filedocumented in this encounter Care Teams Team MemberRelationshipSpecialtyStart DateEnd Date Abebe Stewart MD [address] [place] [address], [address] [place], [place] [id number] PCP - GeneralInternal Medicine09/21/24 Abebe Tan MD [address] [place] [address] Consulting PhysicianUrology04/07/25documented as of this encounter
--- OUTSIDE RECORDS SUMMARY | 2025-05-26 13:57 | XMS_ITS | Encounter Summary ---
Author Organization [facility] Address [address] [place] [address] Care Team Providers Care Apparel Patternmaker Name Role Phone Abebe Stewart MD Primary Care Provider [phone] Abebe Tan MD Unavailable Encounter Details DateTypeDepartmentCare Team (Latest Contact Info)Wkchpkwqvtm09/23/2025Orders Only [facility] 2A Infusion [address] [place] [address] Nancy Champion RN Acute cystitis without hematuria (Primary Dx) Social History Tobacco UseTypesPacks/DayYears UsedDateSmoking Tobacco: JherdfHhuzemzxtk3139 - 1974Passive Smoke Exposure: PastSmokeless Tobacco: NeverAlcohol UseStandard Drinks/WeekCommentsYes0 (1 standard drink = 0.6 oz pure alcohol)[facility] UtilitiesAnswerDate RecordedIn the past 12 months has the [employer], gas, oil, or water [employer] threatened to shut off services in your [...] times a week04/05/2025How often do you attend adventist or quaker services?Never04/05/2025Do you belong to any clubs or organizations such as adventist groups, unions, fraLoveSurf or athletic groups, or school groups?No04/05/2025How often do you attend meetings of the clubs or organizations you belong to?Never04/05/2025re you , , , , never , or living with a partner?Gmrbytabf02/04/2025UDIT-C AnswerDate RecordedQ1: How often do you have [...] heating?Not very hard05/11/2025 PHQ-2AnswerDate RecordedPatient Health Questionnaire-2 Cqrrd980Fin[facility] [place] of Occupational Health - Occupational Stress QuestionnaireAnswerDate RecordedDo you feel stress - tense, restless, nervous, or anxious, or unable to sleep at night because yourmind is troubled all the time - these days?Only a msqhfj9404/05/2025TransportationAnswerDate RecordedIn the past 12 months, has lack [...] were you homeless or living in a assisted (including now)?No05/11/2025Hunger Vital SignAnswerDate Recorded Within the past 12 months, you worried that your food would run out before you got the money to buymore.Never true05/11/2025Within the past 12 months, the food you bought just didn't last and you didn't have money to get more.Never true 05/11/2025Sex and Gender InformationValueDate RecordedSex Assigned at BirthMale 09/21/2024 6:43 AM ESTLegal GerZgmc1801/29/2022 12:45 AM EDTGender IdentityMale 09/21/2024 7:43 AM ESTSexual OrientationHeterosexual or Bsaazwdn89/20/2025 7:43 AM ESTdocumented as of this encounter Plan of Treatment DateTypeDepartmentCare Team (Latest Contact Info)Uotjetteues03/28/2025 8:00 AM EDTFollow-Up [facility] Transplant [address] [place] [address] [place] [address] 05/29/2025 2:00 PM EDTAppointment [facility] US IMAGING [address] [place] [phone] 06/11/2025 9:00 AM ESTFollow-Up [facility] Transplant [address] [place] [address] Jayjay Robin MD [address] [place] [address] 06/19/2025 10:30 AM ESTFollow-Up [facility] Cardiology Clinic [address] [place] [address] Izaiah Singh, [employer] ELECT[employer]ICAL SYSTEMS DESIGNER [address] [facility] [place], [place] [address] 06/25/2025 11:00 AM ESTFollow-Up [facility] Medical Pavilion Neurology [address] [place] [address] Sera Silverio CNP [address] [facility] [place] [address] documented as of this encounter Visit Diagnoses Diagnosis Acute cystitis without hematuria- Primary documented in this encounter Care Teams Team MemberRelationshipSpecialtyStart DateEnd Date Abebe Stewart MD [address] [place] [address], 1 [place] [address] PCP - GeneralInternal Medicine09/21/24 Abebe Tan MD [address] [facility] [facility] [place] [address] Consulting PhysicianUrology04/07/25documented as of this encounter
--- NOTE | 2025-05-26 14:05 | XR_ITS ---
The [address] [address] Patient Name: CHRISTAL SUH MRN: [id number] date: 1955 Sex: M Assigned Patient Location: ER Current Patient Location: ED.MAIN Accession/Order Number: [id number] Exam Date: 05/26/2025 15:10 Report Date: 05/26/2025 16:03 At the request of: PUSHPA AMARO DO Procedure: XR abdomen 1V Single view of abdomen without comparison HISTORY: Constipation. Moderate burden of stool throughout the colon. Mild gaseous intestinal distention. Surgical clips in the right pelvic region. Mild scoliosis and moderate degenerative change. XR/XR abdomen 1V IMPRESSION: Constipation. Impression dictated by: Koby Gunderson M.D. 05/26/2025 4:03 PM Dictation Location: [place] [address] Electronically authenticated by: [id number] Date: 05/26/2025 16:03
[2025-05-26 14:25] LABS: Hematocrit 33.1 % (42.0-54.0); Hemoglobin 10.6 g/dL (14.0-18.0); Immature Granulocytes Abs Auto 0.18 10^3/uL (0.00-0.03); Immature Granulocytes Pct Auto 1.3 % (0.0-0.5); Lymphocytes Absolute Auto 1.3 10^3/uL (1.2-3.8); Mean Corpuscular HGB Conc 32.0 g/dL (29.9-35.2); Mean Corpuscular Hemoglobin 32.6 pg (25.9-34.0); Mean Corpuscular Volume 101.8 fL (80.0-94.0); Platelet Count 204 10^3/uL (150-450); Red Blood Count 3.25 10^6/uL (4.70-6.10); White Blood Count 13.5 10^3/uL (4.0-11.0)
[2025-05-26] MEDS: GLYCERIN ADULT 2 GRAM RECTAL SUPPOSITORY 1 SUPP PR (14:29)
[2025-05-26 14:41] LABS: Alanine Aminotransferase 22 U/L (16-63); Albumin Globulin Ratio 0.9; Albumin Level 2.5 g/dL (3.4-5.0); Alkaline Phosphatase 109 U/L (46-116); Anion Gap 9.8; Aspartate Amino Transferase 21 U/L (15-37); Blood Urea Nitrogen 55.0 mg/dL (7.0-18.0); Calcium 7.7 mg/dL (8.5-10.1); Carbon Dioxide 30.2 mmol/L (21.0-32.0); Chloride 104 mmol/L (98-107); Estimated GFR (African America 30 (>=60 mL/min/1.73m^2); Estimated GFR (Non-African Ame 25 (>=60 mL/min/1.73m^2); Globulin 2.7 g/dL; Glucose 155 mg/dL (74-106); Potassium 4.0 mmol/L (3.5-5.1); Sodium 140 mmol/L (136-145); Total Protein 5.2 g/dL (6.4-8.2)
--- NOTE | 2025-05-26 15:20 | ED.GENADUL1 ---
HPI HPI - General Adult General Chief complaint: Abdominal Pain Stated complaint: CONSTIPATION Time Seen by Provider: 05/26/25 13:49 Source: patient Mode of arrival: ambulance Limitations: no limitations History of Present Illness HPI narrative: Patient is a 69-year-old male presenting to the emergency department for concerns of constipation. Patient states that his stools have been hard over the last 24 hours. He states his last bowel movement was yesterday, but only was able to pass some small stool balls. He denies any blood in the stool. He states it is somewhat uncomfortable to use the bathroom, over this is chronic and likely related to his history of hemorrhoids. He denies any nausea or vomiting. He is still tolerating diet, eating and drinking appropriately. He was recently hospitalized for a CVA last month. He was on a consistent bowel regimen, however this was stopped upon his discharge. He states that since stopping his bowel regimen, he has been dealing with constipation. Additionally, he is 2 months postop of a renal transplant. Believes his renal failure was secondary to uncontrolled hypertension and chronic NSAID use. He denies any significant abdominal pain. He has no chest pain or shortness of breath. No fevers or chills. He is currently being treated for UTI through his PICC line with cefepime. Related Data Home Medications ?Medication ?Instructions ?Recorded ?Confirmed bumetanide 1 mg tablet 1 mg PO DAILY 04/28/25 04/28/25 calcium carbonate (Antacid 600 mg PO BID 04/28/25 04/28/25 (calcium carbonate)) carvedilol 25 mg tablet 25 mg PO Q12H 04/28/25 04/28/25 famotidine 20 mg tablet 20 mg PO DAILY 04/28/25 04/28/25 finasteride 5 mg tablet 5 mg PO DAILY 04/28/25 04/28/25 hydralazine 100 mg tablet 100 mg PO TID 04/28/25 04/28/25 magnesium glycinate 100 mg (as 300 mg PO TID 04/28/25 04/28/25 glycinate) tablet (Mag Glycinate) mycophenolate sodium 180 mg 720 mg PO Q12H 04/28/25 04/28/25 tablet,delayed release (Myfortic) nifedipine 30 mg tablet,extended 30 mg PO DAILY 04/28/25 04/28/25 release 24 hr nystatin 100,000 unit/mL oral 5 ml PO QID 04/28/25 04/28/25 suspension pantoprazole 40 mg tablet,delayed 40 mg PO DAILY 04/28/25 04/28/25 release prednisone 10 mg tablet 20 mg PO DAILY 04/28/25 04/28/25 sodium di- and 1 tab PO BID 04/28/25 04/28/25 monophosphate-potassium phos monobasic 250 mg tablet (S-Qaed-Zhygqxk) sulfamethoxazole 800 1 tab PO .3 times a week 04/28/25 04/28/25 mg-trimethoprim 160 mg tablet tacrolimus 4 mg tablet,extended 4 mg PO DAILY 04/28/25 04/28/25 release 24 hr (Envarsus XR) tamsulosin 0.4 mg capsule 0.8 mg PO DAILY 04/28/25 04/28/25 valganciclovir 450 mg tablet 450 mg PO DAILY 04/28/25 04/28/25 Previous Rx's ?Medication ?Instructions ?Recorded hydrocortisone 2.5 % topical cream 1 applic CO DAILY PRN hemorrhoids 05/26/25 with perineal applicator #30 grams (Procto-Med HC) polyethylene glycol 3350 17 17 g PO DAILY 4 days #68 grams 05/26/25 gram/dose oral powder (Miralax) Allergies Allergy/AdvReac Type Severity Reaction Status Date / Time Unable to Assess Allergy Verified 04/28/25 08:35 Opioid HPI Opioid Management Most Recent Opioid Data: Last Pain Scale 5 Today, 13:58 Review of Systems ROS Status of ROS 10 or more systems reviewed and unremarkable except as noted in history and below PFSH PFSH Social History Little interest or pleasure in doing things: not at all Feeling down, depressed, or hopeless: not at all Exam Narrative Exam Narrative: CONSTITUTIONAL: Patient awake, alert, in no acute distress, nontoxic appearing, answering questions and following commands appropriately SKIN: Was warm and dry. EYES: Sclerae white. No conjunctival pallor. EARS, NOSE, THROAT: Dry mucous membranes. RESPIRATORY: Clear to auscultation bilaterally, no wheezes, crackles, or stridor, no use of accessory muscles CARDIOVASCULAR: Normal rate and regular rhythm. There is no S3, S4, murmur, rub. GASTROINTESTINAL: Abdomen is soft, nontender, and nondistended. Normal bowel sounds. No rebound tenderness or guarding. The surgical incision site in the right lower quadrant of his abdomen is clean/dry/intact without dehiscence, cellulitic changes, or purulent drainage. There is a Valderrama catheter in place draining clear yellow urine. MUSCULOSKELETAL: No peripheral edema. NEUROLOGIC: Patient is awake and alert. Facies were symmetrical. RECTAL: There are multiple nonthrombosed, nonbleeding external hemorrhoids. Constitutional Vital Signs, click to edit/add: Last Vital Signs Temp 98.1 F 05/26/25 13:49 Pulse 76 05/26/25 13:49 Resp 20 05/26/25 13:49 BP 156/91 H 05/26/25 13:49 Pulse Ox 97 05/26/25 13:49 O2 Del Method Room Air 05/26/25 13:49 Course Vital Signs Vital signs: Vital Signs Temperature 98.1 F 05/26/25 13:49 Pulse Rate 76 05/26/25 13:49 Respiratory Rate 20 05/26/25 13:49 Blood Pressure 156/91 H 05/26/25 13:49 Pulse Oximetry 97 05/26/25 13:49 Oxygen Delivery Method Room Air 05/26/25 13:49 Temperature 98.1 F 05/26/25 13:49 Pulse Rate 76 05/26/25 13:49 Respiratory Rate 20 05/26/25 13:49 Blood Pressure 156/91 H 05/26/25 13:49 Pulse Oximetry 97 05/26/25 13:49 Oxygen Delivery Method Room Air 05/26/25 13:49 Medical Decision Making MDM Narrative Medical decision making narrative: Patient is a 69-year-old male presenting to the emergency department the 24-hour history of constipation. His vital signs on arrival are within normal limits. He is afebrile and hemodynamically stable. On examination, he has a benign abdomen with normal bowel sounds. There is no tenderness or evidence of peritonitis. There are multiple nonthrombosed, nonbleeding external hemorrhoids. Of note, patient does have a complex medical history. He is 2 months postop from a kidney transplant secondary to renal failure from hypertension and chronic NSAID use. He is currently being treated with IV cefepime through his PICC line for UTI. Additionally, he was hospitalized last month for CVA. He was previously on a bowel regimen, however this was discontinued upon his discharge. In regards to the patient's constipation, I did obtain x-ray to rule out obstruction, though I have low suspicion for this as he is still tolerating diet, having bowel movements, and is having no nausea, vomiting, or abdominal pain. He does appear dry on exam, dehydration may be worsening his constipation. He was given water to drink. Additionally, I did obtain laboratory studies to evaluate his renal function and to rule out underlying electrolyte/metabolic derangements. Glycerin suppository and Fleet enema were administered with return of copious amounts of brown-colored stool. X-ray of his abdomen independently reviewed and interpreted by myself demonstrate constipation without evidence of bowel obstruction or volvulus. Laboratory studies are unremarkable. He is anemic but improved from laboratory studies drawn 1 month ago. Mild leukocytosis, this is likely related to his UTI that is currently being treated. No electrolyte derangement. He does have an elevated creatinine of 2.59, however this is actually improved compared to laboratory studies drawn 1 month ago. He is still producing urine in his Valderrama catheter. On reevaluation, patient feels improved after having a large bowel movement. I did prescribe him Anusol for his hemorrhoids, and instructed him to take MiraLAX daily until he has regular bowel movements. He was instructed follow-up with his PCP for further care. Return precautions were given including any new or concerning symptoms. Patient understands and agrees to the plan. FINAL IMPRESSION: #Acute constipation, improving DISPOSITION: Discharged home CONDITION: Good Medical Records Medical records reviewed: Yes I reviewed the patient's medical records Lab Data Lab results reviewed: Yes I reviewed the patient's lab results Labs: Lab Results 05/26/25 Range/Units 14:18 WBC 13.5 H (4.0-11.0) 10^3/uL RBC 3.25 L (4.70-6.10) 10^6/uL Hgb 10.6 L (14.0-18.0) g/dL Hct 33.1 L (42.0-54.0) % MCV 101.8 H (80.0-94.0) fL MCH 32.6 (25.9-34.0) pg MCHC 32.0 (29.9-35.2) g/dL RDW 15.6 H (11.0-15.0) % Plt Count 204 (150-450) 10^3/uL MPV 11.5 (9.5-13.5) fL Neut % (Auto) 85.2 H (43.0-75.0) % Lymph % (Auto) 9.6 L (20.5-60.0) % [place] % (Auto) 3.3 (1.7-12.0) % Eos % (Auto) 0.4 L (0.9-7.0) % Baso % (Auto) 0.2 (0.2-2.0) % Neut # (Auto) 11.5 H (1.4-6.5) 10^3/uL Lymph # (Auto) 1.3 (1.2-3.8) 10^3/uL [place] # (Auto) 0.4 (0.3-0.8) 10^3/uL Eos # (Auto) 0.1 (0.0-0.7) 10^3/uL Baso # (Auto) 0.0 (0.0-0.1) 10^3/uL Abs Immat Gran (auto) 0.18 H (0.00-0.03) 10^3/uL Imm/Tot Granulo (auto) 1.3 H (0.0-0.5) % Sodium 140 (136-145) mmol/L Potassium 4.0 (3.5-5.1) mmol/L Chloride 104 (98-107) mmol/L Carbon Dioxide 30.2 (21.0-32.0) mmol/L Anion Gap 9.8 BUN 55.0 H (7.0-18.0) mg/dL Creatinine 2.59 H (0.70-1.30) mg/dL Est GFR ( Amer) 30 L (>=60 mL/min/1.73m^2) Est GFR (Non-Af Amer) 25 L (>=60 mL/min/1.73m^2) BUN/Creatinine Ratio 21.2 Glucose 155 H (74-106) mg/dL Calcium 7.7 L (8.5-10.1) mg/dL Total Bilirubin 0.4 (0.2-1.0) mg/dL AST 21 (15-37) U/L ALT 22 (16-63) U/L Alkaline Phosphatase 109 (46-116) U/L Total Protein 5.2 L (6.4-8.2) g/dL Albumin 2.5 L (3.4-5.0) g/dL Globulin 2.7 g/dL Albumin/Globulin Ratio 0.9 Imaging Data Abdominal x-ray: Attestation: I personally reviewed and interpreted this imaging study as follows: Discharge Plan Discharge Chief Complaint: Abdominal Pain Clinical Impression: Constipation Patient Disposition: Home, Self-Care Time of Disposition Decision: 15:22 Condition: Good Mode of Transportation: Private Vehicle Prescriptions / Home Meds: New hydrocortisone [Procto-Med HC] 2.5 % cream with perineal applicator 1 applic CO DAILY PRN (Reason: hemorrhoids) Qty: 30 0RF polyethylene glycol 3350 [Miralax] 17 gram/dose powder 17 g PO DAILY 4 Days Qty: 68 0RF No Action bumetanide 1 mg tablet 1 mg PO DAILY carvedilol 25 mg tablet 25 mg PO Q12H nystatin 100,000 unit/mL suspension 5 ml PO QID sulfamethoxazole-trimethoprim 800-160 mg tablet 1 tab PO .3 times a week valganciclovir 450 mg tablet 450 mg PO DAILY calcium carbonate [Antacid (calcium carbonate)] 200 mg calcium (500 mg) tablet,chewable 600 mg PO BID famotidine 20 mg tablet 20 mg PO DAILY finasteride 5 mg tablet 5 mg PO DAILY hydralazine 100 mg tablet 100 mg PO TID Mag Glycinate 100 mg tablet 300 mg PO TID mycophenolate sodium [Myfortic] 180 mg tablet,delayed release (DR/EC) 720 mg PO Q12H prednisone 10 mg tablet 20 mg PO DAILY Envarsus XR 4 mg tablet extended release 24 hr 4 mg PO DAILY nifedipine 30 mg tablet extended release 24hr 30 mg PO DAILY pantoprazole 40 mg tablet,delayed release (DR/EC) 40 mg PO DAILY M-Sosf-Qeuualx 250 mg tablet 1 tab PO BID tamsulosin 0.4 mg capsule 0.8 mg PO DAILY Print Language: Yoruba Referrals: GHAZAL CEVALLOS [Primary Care Provider, Family Practice] - 1 week
== END 2025-05-26 21:15 | disposition home or self-care (01) ==
PROVIDERS: Emergency Provider Student in an Organized Health Care Education/Training Program; PCP Internal Medicine
DX: K59.00 Constipation, unspecified (principal); Z86.73 Personal history of transient ischemic attack (TIA), and cerebral infarction without residual deficits; Z94.0 Kidney transplant status; I10 Essential (primary) hypertension; N39.0 Urinary tract infection, site not specified; K64.4 Residual hemorrhoidal skin tags
CPT/HCPCS: 36415; 74018; 80053; 85025; 99284

== ENCOUNTER 2025-07-27 15:24 | Outpatient (REF) | payer MEDICARE, SELFPAY ==
--- OUTSIDE RECORDS SUMMARY | 2024-06-12 09:00 | XMS_ITS ---
Author Organization [facility] in [place] Address [address] [place] [address] Care Team Providers Care President And Chief Commercial Officer Name Role Phone Abebe Stewart MD Primary Care Provider Abebe Nazario Unavailable [phone] REASON FOR VISIT 2 month ov Encounters Encounter Location Date Provider Diagnosis [facility]phrology [place] [address] [place] [address] 06/12/2024 Abebe Tovar Plan Of Treatment No Information Progress Notes * Alberto WALLER LDOB:[birth year] (69 yo M)Acc No.[id number]:06/12/2024 UNLOCKED PROGRESS NOTE Progress Note Patient: Alberto BUSTAMANTE :LisetAbebe Tovar MDDOB:1955???Age:68 Y ???Sex:MaleDate:06/12/2024hone:[phone]:[facility] [place], [place]Dkx:Abebe Stewart MD Subjective: * Chief Complaints: * 1 . 2 month ov. * Medical History: Objective: * Vitals: Assessment: Plan: * Treatment: * * Electronic signature of Abebe Tovar MD, [id number] on 07/27/2025 at 03:29 PM EST Sign off status: PendingVisit Status:?R/S (Rescheduled) * Provider: Anthony Tovar MD Date: 1 08/12/2023 Generated for Printing/Faxing/eTransmitting on:?07/27/2025 03:29 PM EST
--- OUTSIDE RECORDS SUMMARY | 2024-08-14 11:20 | XMS_ITS ---
Author Organization [facility] in [place] Address [address] [place] [address] Care Team Providers Care Robotics Engineer Name Role Phone Pat JOSEPH, Abebe Primary Care Provider Abebe Nazario [facility] [phone] Encounters Encounter Location Date Provider Diagnosis [facility]phrology [place] [address] [place] [address] 08/14/2024 Abebe Tovar Plan Of Treatment No Information Progress Notes * Alberto WALLER LDOB:[birth year] (69 yo M)Acc No.[id number]:08/14/2024 UNLOCKED PROGRESS NOTE Progress Note Patient: Alberto BUSTAMANTE :?Abebe Tovar MDDOB:1955???Age:69 Y ???Sex:MaleDate:08/14/2024Phone:[phone]:[address] [place], [place]Kmw:Abebe Stewart MD Subjective: * Chief Complaints: * * Medical History: Objective: * Vitals: Assessment: Plan: * Treatment: * * Electronic signature of Abebe Tovar MD, [id number] on 07/27/2025 at 03:29 PM EST Sign off status: PendingVisit Status:?CANC (Cancelled) * Provider: Anthony Tovar MD Date: 0 08/14/2024 Generated for Printing/Faxing/eTransmitting on:?07/27/2025 03:29 PM EST
--- OUTSIDE RECORDS SUMMARY | 2025-07-12 15:27 | XMS_ITS | Encounter Summary ---
Author Organization [facility] tem Address [id number] [address] [place] [address] Care Team Providers Care Business Services Specialist Sales Name Role Phone Abebe Stewart MD Primary Care Provider [phone] Reason for Visit * ReasonCommentsMedical ScreeningPatient brought in by ems due to having COVID and Cdiff. Per EMS patient has a kidney transplant inAugust and transplant team wanted patient seen because patient was not recovering for covid and cdif f quickly enough Encounter Details DateTypeDepartmentCare Team (Latest Contact Info)Foroeqvpmes23/11/2025 3:27 PM EST - 07/13/2025 1:16 AM [facility] - Emergency [address] [place] [address] Kristen Pettit, DO [address] [facility]ERBerna ROBBINSFORT [place] [address] Acute cystitis without hematuria (Primary Dx) Discharge Disposition: Home Social History Tobacco UseTypesPacks/DayYears UsedDateSmoking Tobacco: NeverSmokeless Tobacco: NeverAlcohol UseStandard Drinks/WeekCommentsNot Currently0 (1 standard drink = 0.6 oz pure alcohol)AUDIT-CAnswerDate RecordedQ1: How often do you have a drink containing alcohol?Never09/12/2020Q2: How many drinks containing alcohol do you have on a typical day when you are drinking?1 or Q3: How often do you have six or more drinks on one occasion?Never09/12/2020HQ-2AnswerDate Recorded Total Yqooi491/4ChildcareAnswerDate QrterykfJelmrleiwNvzsycw41/07/2019 EmploymentAnswerDate BpsnafrdKvqhkafpdgGtwqkws20/12/2019Hunger ScreeningAnswer Date RecordedWithin the past 12 months we worried whether our food would run out before we got money to buy more.Never True07/12/2025Within the past 12 months the food we bought just didn't last and we didn't have money to get more.Never True07/12/2025Purpose - LifeAnswerDate RecordedPurpose and direction in life Jdudtah2509/12/2020ex and Gender InformationValueDate RecordedSex Assigned at BirthNot on fileLegal XzsZizd4703/07/2015 11:39 AM EDTGender IdentityNot on file Sexual OrientationNot on filedocumented as of this encounter Last Filed Vital Signs Vital SignReadingTime TakenCommentsBlood Ocixupry489/7807/13/2025 12:45 AM EST Jkyyq848907/12/2025 8:50 PM LPCYiqbljimhpp27.9 ??C (98.4 ??F)07/12/2025 3:31 PM ESTRespiratory Wijz570109/12/2024 3:31 PM ESTOxygen Iqwyuvjzet90%07/12/2025 7:15 PM ESTInhaled Oxygen Concentration--Nmwnwh88.1 kg (192 lb 1.6 oz)07/12/2025 3:31 PM ESTHeight--Body Mass Index25.3510 11:02 AM EDTdocumented in this encounter Functional Status * Vital SignsQuestionAnswerDate of EebbflugrsLamrqpFK182/7807/13/2025 12:45 AM Suzy Ivey RNSpO29507/12/2025 7:15 PM Suzy Ivey RNMAP (mmHg) 8707/12/2025 4:15 PM Kaila Santana RN * ED Hunger ScreeningQuestionAnswerDate of AssessmentAuthorWithin the past 12 months the food we bought just didn't last and we didn't have money to get more.Never True07/12/2025 3:32 PM Kaila Santana RNWithin the past 12 months we worried whether our food would run out before we got money to buy more.Never True07/12/2025 3:32 PM Kaila Santana RN * Pain AssessmentQuestionAnswerDate of AssessmentAuthorPain LocationAbdomen 07/12/2025 3:31 PM Kaila Santana RNPain TypeAcute pain07/12/2025 3:31 PM Kaila Santana RNPain Assessment0-10109/12/2024 3:31 PM Kaila Santana RNPain Thaaz88509/12/2024 3:31 PM Kaila Santana RN * Fall Risk 65+QuestionAnswerDate of AssessmentAuthorHave you fallen in the past year? 3:33 PM Kaila Santana RNDo you feel unsteady while standing or walking? 3:33 PM Kaila Santana RNDo you worry about falling? 3:33 PM Kaila Santana RNIs there an observable gait, strength or balance problem? 3:33 PM Kaila Santana RNIn the past year how many times have you fallen? 3:33 PM Kaila Santana RNWere you injured? 3:33 PM Kaila Santana RNScore3109/12/2024 3:33 PM Kaila Santana RN * Romeo Coma ScaleQuestionAnswerDate of AssessmentAuthorEye Nqagojs821/11/2025 3:32 PM Kaila Santana RNBest Motor Audffavg882/11/2025 3:32 PM Kaila Clayton RNBest Verbal Vpyzgwpq799/11/2025 3:32 PM Kaila Santana RNGlasgow Coma Scale Zjtwr9058/11/2025 3:32 PM Kaila Santana RN * Patient ObservationQuestionAnswerDate of DnsrrveckfWfmachMfrrno8485.6 07/12/2025 3:31 PM Kaila Santana RN * Abuse Indicator ScreeningQuestionAnswerDate of AssessmentAuthorSafe in HomeYes 07/12/2025 3:32 PM ESTSanchez, Kaila, RNDo you feel safe in your relationship(s)?Yes07/12/2025 3:32 PM Kaila Santana RNAre you in immediate danger?No07/12/2025 3:32 PM Kaila Santana RN * Harm Risk AssessmentQuestionAnswerDate of AssessmentAuthorAre you having thoughts of homicide or causing harm to others?No07/12/2025 3:32 PM Kaila Clayton RN * Blood HistoryQuestionAnswerDate of AssessmentAuthorHave you had a blood transfusion?No07/12/2025 3:33 PM Kaila Santana RNWould you accept a blood transfusion in a life-threatening situation?Yes07/12/2025 3:33 PM Kaila Clayton RN * Vital SignsQuestionAnswerDate of QebgqaxekqQcmmraVfvf06.412 3:31 PM Kaila Santana RNTemp cqpNyaq8107/12/2025 3:31 PM Kaila Santana RN Rregh176607/12/2025 8:50 PM Suzy Ivey RNResp18109/12/2024 3:31 PM Kaila Clayton RNHeart Rate SourcePulse Ox07/12/2025 3:31 PM Kaila Santana RNBP LocationLeft arm07/12/2025 3:31 PM Kaila Santana RNBP YusilrTjxnvzgzo09/11/2025 3:31 PM Kaila Santana, RNPatient PositionLying wavmbl4007/12/2025 3:31 PM Kaila Santana RN * Oxygen TherapyQuestionAnswerDate of AssessmentAuthorPulse Ox Monitoring Rscfvlimcc95/11/2025 3:31 PM Kaila Santana RNO2 DeviceNone (Room air) 07/12/2025 3:31 PM Kaila Santana RN * Adult Sepsis RiskQuestionAnswerDate of AssessmentAuthorSIRS Criteria1 07/13/2025 1:00 AM Kaz ClindocRisk of Sepsis v.22.712 1:00 AM Kaz Clinc * AirwayQuestionAnswerDate of AssessmentAuthorAirway (WDL)WD09/12/2024 3:32 PM Kaila Santana RN * BreathingQuestionAnswerDate of AssessmentAuthorBreathing ([facility])WD09/12/2024 3:32 PM Kaila Santana RN * CirculationQuestionAnswerDate of AssessmentAuthorCirculation (WD)WDL 07/12/2025 3:32 PM Kaila Santana RN * DisabilityQuestionAnswerDate of AssessmentAuthorDisability ([facility])WD09/12/2024 3:32 PM Kaila Santana RN * Family/Service Member NotifiedQuestionAnswerDate of AssessmentAuthor Family/Service Member notified of Emergency Department Admission?Family rkhkjtu1207/12/2025 6:53 PM Kaila Santana RN * [place] Suicide BehaviorQuestionAnswerDate of AssessmentAuthor6. Have you ever done anything, started to do anything, or prepared to do anything to end your life?No07/12/2025 3:32 PM Kaila Santana RN * Suicidal Ideation (Last Month)QuestionAnswerDate of AssessmentAuthor1. In the last month have you wished you were or wished you could go to sleep and not wake up?No07/12/2025 3:32 PM Kaila Santana RN2. In the last month have you actually had any thoughts of killing yourself?No07/12/2025 3:32 PM Kaila Santana RNAble to assess?Yes07/12/2025 3:32 PM Kaila Santana RN * Vitals TimerQuestionAnswerDate of AssessmentAuthorRestart Vitals TimerYes 07/12/2025 3:31 PM Kaila Santana RN * TB ScreeningQuestionAnswerDate of AssessmentAuthorPatient has prolonged cough? No07/12/2025 3:32 PM Kaila Santana RNPatient has bloody cough?No 07/12/2025 3:32 PM Kaila Santana RNPatient has fever?No07/12/2025 3:32 PM Kaila Santana RNPatient has night sweats?No07/12/2025 3:32 PM Kaila Clayton RNPatient has weight loss?No07/12/2025 3:32 PM Kaila Santana RNPatient has positive PPD?Yes07/12/2025 3:32 PM Kaila Santana RN * [place] Suicide Risk LevelAnswerDate of AssessmentAuthorNot at Suicide Risk 07/12/2025 3:32 PM Kaila Santana RN * Vital SignsQuestionAnswerDate of ZavdhkewddLmbbuvCU958/7812/12/2025 12:45 AM Suzy Ivey RNSpO29507/12/2025 7:15 PM Suzy Ivey RNMAP (mmHg) 8707/12/2025 4:15 PM Kaila Santana RN * Patient ObservationQuestionAnswerDate of MuhkweazyhNlbgqpKmssna5416.6 07/12/2025 3:31 PM Kaila Santana RN * Vital SignsQuestionAnswerDate of AavyvrmctoZicrmhWzit14.412 3:31 PM Kaila Santana RNTemp xybYpss1507/12/2025 3:31 PM Kaila Santana RN Huyhb456607/12/2025 8:50 PM Suzy Ivey RNResp18109/12/2024 3:31 PM Kaila Clayton RNHeart Rate SourcePulse Ox07/12/2025 3:31 PM Kaila Santana RNBP LocationLeft arm07/12/2025 3:31 PM Kaila Santana RNBP FqmpahKfsgwiikn84/11/2025 3:31 PM Kaila Santana RNPatient PositionLying mpftkl1807/12/2025 3:31 PM Kaila Santana RN documented as of this encounter Mental Status * Vital SignsQuestionAnswerEntry BcsaZrmezyDF704/7812/12/2025 12:45 AM Suzy Davies RNSpO29507/12/2025 7:15 PM Suzy Ivey RNMAP (mmHg)87 07/12/2025 4:15 PM Kaila Santana RN * Pain AssessmentQuestionAnswerEntry DateAuthorPain WcbmfvlzOngeavh83/11/2025 3:31 PM Kaila Santana RNPain Assessment0-10109/12/2024 3:31 PM Kaila Clayton RNPain Ivttp45809/12/2024 3:31 PM Kaila Santana RN * [place] Coma ScaleQuestionAnswerEntry DateAuthorEye Vdhsdhe147/11/2025 3:32 PM Kaila Santana RNBest Motor Betchxwn902/11/2025 3:32 PM Kaila Santana RNBest Verbal Bdqbjunh161/11/2025 3:32 PM Kaila Santana RN Romoe Coma Scale Zsmnh2193/11/2025 3:32 PM Kaila Santana RN * Vital SignsQuestionAnswerEntry TinxWpcnkaGqfi58. 3:31 PM Kaila Clayton RNTemp ohmBvyr3907/12/2025 3:31 PM Kaila Santana RN Hptxp695307/12/2025 8:50 PM Suzy Ivey RNResp18109/12/2024 3:31 PM Kaila Clayton RNHeart Rate SourcePulse Ox07/12/2025 3:31 PM Kaila Santana RNBP LocationLeft arm07/12/2025 3:31 PM Kaila Santana RNBP KftrcmLppydmzrg60/11/2025 3:31 PM Kaila Santana RNPatient Position Lying nlvpni7707/12/2025 3:31 PM Kaila Santana RN * Oxygen TherapyQuestionAnswerEntry DateAuthorO2 DeviceNone (Room air)07/12/2025 3:31 PM Kaila Santana RN documented in this encounter Discharge Instructions * Discharge Instructions* Kristen Pettit, DO - 07/12/2025 10:39 PM EST Please take your medications as prescribed. Please take ibuprofen or acetaminophen as needed for pain and/or fever. Please continue oral hydration as well as tolerated. Please follow-up with your primary care provider as needed. Please return to the emergency department if you have new or worsening symptoms. Please call your primary physician or the emergency department if you have any questions or concerns. Thank you for allowing me to participate in your care. * Attachments The following attachments cannot be sent through Care Everywhere. * Urinary tract infection in adults ??? Discharge instructions (Ugandan) documented in this encounter Medications at Time of Discharge MedicationSigDispense QuantityRefillsLast FilledStart DateEnd Date bumetanide (BUMEX) 1 mg tablet Take 1 tablet (1 mg total) by mouth daily.04/16/2025 calcium carbonate (TUMS) 200 mg elemental (500 mg) chewable tablet Chew 3 tablets (600 mg total) and swallow in the morning and 3 tablets (600 mg total) before bedtime.04/23/2025 carvediloL (COREG) 25 mg tablet Take 1 tablet (25 mg total) by mouth in the morning and 1 tablet (25 mg total) in the evening. Takewith meals. 180 tablet famotidine (PEPCID) 20 mg tablet Take 1 tablet (20 mg total) by mouth once daily at bedtime. TAKE 1 TABLET (20 MG) BY MOUTH AT FZEWHGK7504/23/2025 finasteride (PROSCAR) 5 mg tablet Take 1 tablet (5 mg total) by mouth in the morning. hydrALAZINE (APRESOLINE) 100 mg tablet Take 1 tablet (100 mg total) by mouth 3 (three) times a day. 90 tablet magnesium glycinate 100 mg magnesium capsule Take 300 mg by mouth 3 (three) times a day.04/23/2025 mycophenolate (MYFORTIC) 180 mg EC tablet Take 3 tablets (540 mg total) by mouth in the morning and 3 tablets (540 mg total) before bedtime.05/02/2025 NIFEdipine XL (PROCARDIA XL) 30 mg 24 hr tablet Take 1 tablet (30 mg total) by mouth in the morning.04/23/2025 nystatin (MYCOSTATIN) 100,000 unit/mL suspension Take 5 mL (500,000 Units total) by mouth in the morning and 5 mL (500,000 Units total) at noon and 5 mL (500,000 Units total) in the evening and 5 mL (500,000 Units total) before bedtime.04/13/2025 pantoprazole (PROTONIX) 40 mg EC tablet Take 1 tablet (40 mg total) by mouth before breakfast. TAKE 1 TABLET (40 MG) BY MOUTH BEFORE BREAKFAST DO NOT CRUSH CHEW OR SPLIT04/23/2025 polyethylene glycol (GLYCOLAX) 17 gram/dose powder DISSOLVE ONE CAPFUL (17 GRAMS) IN 8 OUNCES OF JUICE OR WATER AND DRINK ONCE DAILY IN THE WDSGTHA5204/04/2025 predniSONE (DELTASONE) 10 mg tablet Take 2 tablets (20 mg total) by mouth in the morning.04/23/2025 sod phos di, mono-K phos mono (K-PHOS NEUTRAL) 250 mg tablet Take 1 tablet by mouth in the morning and 1 tablet before bedtime.04/16/2025 sulfamethoxazole-trimethoprim (BACTRIM DS) 800-160 mg per tablet Take 1 tablet by mouth 3 (three) times a week. On Wednesday, Wednesday, and Wednesday04/13/2025 tacrolimus ER (ENVARSUS XR) 4 mg 24 hr tablet Take 1 tablet (4 mg total) by mouth in the morning.04/13/2025 tamsulosin (FLOMAX) 0.4 mg capsule Take 2 capsules (0.8 mg total) by mouth in the morning.05/16/2025 valGANciclovir (VALCYTE) 450 mg tablet Take 1 tablet (450 mg total) by mouth in the morning.04/13/2025 CEPHalexin (KEFLEX) 500 mg capsule Take 1 capsule (500 mg total) by mouth in the morning and 1 capsule (500 mg total) at noon and 1 capsule (500 mg total) in the evening and 1 capsule (500 mg total) before bedtime. Do all this for 10 days. 40 capsule documented as of this encounter ED Notes * Kristen Pettit, DO - 07/12/2025 4:15 PM EST Images from the original note were not included. [facility] - EMERGENCY Pt Name: Alberto Wlaler Birthdate: 1955 Chief Complaint: Chief Complaint Patient presents with Medical Screening Patient brought in by ems due to having COVID and Cdiff. Per EMS patient has a kidney transplant inAugust and transplant team wanted patient seen because patient was not recovering for covid and cdiff quickly enough History of Present Illness: Initial evaluation performed at 4:[address] Pettit. Patient is a 69 y.o. male who presents to the ED via EMS from [facility] for evaluation of medical screening. Pt states that he had a right kidney transplant in March and the kidney was placed in his abdomin. [place] [facility] He denies any pain with that. He mentions that hehas not been peeing as much since then. He states that he had COVID-19 last week and that he is always cold. He explains that his symptoms are feeling exhausted, coughing, and belly pain for weeks. He had lab work done on July 02. Pt denies any fever. There are no other concerns at this time. History provided by: Patient Past Medical History: Past Medical History: Diagnosis Date Hypertension Past Surgical History: Past Surgical History: Procedure Laterality Date COLECTOMY PARTIAL / TOTAL COLONOSCOPY COLONOSCOPY N/A 10/05/2022 Performed by Alberto Mensah DO at [facility] Family History: History reviewed. No pertinent family history. Social History: Social History Socioeconomic History Marital status: Tobacco Use Smoking status: Never Smokeless tobacco: Never Substance and Sexual Activity Alcohol use: Not Currently Drug use: Never Sexual activity: Defer Social Drivers of Health Financial Resource Strain: Low Risk (07/13/2025) Received from [facility] Overall Financial Resource Strain (CARDIA) How hard is it for you to pay for the very basics like food, housing, medical care, and heating?: Not hard at all Food Insecurity: No Food Insecurity (07/13/2025) Received from [facility] Hunger Vital Sign Within the past 12 months, you worried that your food would run out before you got the money to buymore.: Never true Within the past 12 months, the food you bought just didn't last and you didn't have money to get more.: Never true Transportation Needs: No Transportation Needs (07/13/2025) Received from [facility] Transportation In the past 12 months, has lack of transportation kept you from medical appointments or from getting medications?: No In the past 12 months, has lack of transportation kept you from meetings, work, or from getting things needed for daily living?: No Stress: No Stress Concern Present (04/05/2025) Received from [facility] [employer] [place] [employer] - Occupational Stress Questionnaire Feeling of Stress : Only a little Social Connections: Socially Isolated (04/05/2025) Received from [facility] Social Connection and Isolation Panel In a typical week, how many times do you talk on the phone with family, friends, or neighbors?: More than three times a week How often do you get together with friends or relatives?: More than three times a week How often do you attend holiness or mandaen services?: Never Do you belong to any clubs or organizations such as holiness groups, unions, fraternal or athletic groups, or school groups?: No How often do you attend meetings of the clubs or organizations you belong to?: Never Are you , , , , never , or living with a partner?: Interpersonal Safety: Unknown (07/13/2025) Received from [facility] Humiliation, Afraid, Rape, and Kick questionnaire Within the last year, have you been afraid of your partner or ex-partner?: No Housing Instability: Low Risk (07/13/2025) Received from [facility] Housing Stability Vital Sign In the last 12 months, was there a time when you were not able to pay the mortgage or rent on time?: No In the past 12 months, how many times have you moved where you were living?: 0 At any time in the past 12 months, were you homeless or living in a [place] facility (including now)?: No Review of Systems: Review of Systems Physical Exam: ED Triage Vitals [07/12/25 1531] Temp Heart Rate Resp BP SpO2 36.9 ??C (98.4 ??F) 82 18 112/69 93 % Temp Source Heart Rate Source Patient Position BP Location FiO2 (%) Oral Pulse Ox Lying supine Left arm -- Vitals: 07/13/25 0000 07/13/25 0015 07/13/25 0030 07/13/25 0045 BP: 128/76 139/76 132/81 140/78 Temp: TempSrc: Pulse: Resp: SpO2: MAP (mmHg): Weight: 95 Physical Exam Vitals and nursing note reviewed. Constitutional: General: He is not in acute distress. HENT: Head: Normocephalic and atraumatic. Eyes: General: Right eye: No discharge. Left eye: No discharge. Cardiovascular: Rate and Rhythm: Normal rate and regular rhythm. Pulmonary: Effort: Pulmonary effort is normal. Breath sounds: Rhonchi (bases) present. No wheezing. Abdominal: Palpations: Abdomen is soft. Tenderness: There is no abdominal tenderness. Comments: Surgical scar RLQ, healing well. Musculoskeletal: General: No deformity or signs of injury. Right elbow: Swelling present. Left elbow: Swelling present. Right lower leg: Swelling present. Left lower leg: Swelling present. Comments: More swelling in the right leg than left leg. Skin: General: Skin is warm and dry. Neurological: General: No focal deficit present. Mental Status: He is alert. Procedure: Procedures Re-evaluation: Re-Evaluation Medical Decision Making Amount and/or Complexity of Data Reviewed Labs: ordered. Details: Labs notable for: Creatinine 1.38, glucose 187, calcium 7.8, total protein 4.8, albumin 2.2, BRN 456, WBC 12.5, RBC 2.87, hemoglobin 9.6, hematrocrit 28.8%, RDW 16.4, absolute neutrophils 10.9, and troponin 42. Radiology: ordered. Details: Imaging was independently viewed and is notable for CT abdomen and pelvis shows free periheptic fluid, mild body wall edema, trace splenic remnants in LUQ. Chest X-ray shows basilar infiltrate to the left. However, pending official radiologist read. Discussion of management or test interpretation with external provider(s): [address] Mac, urologist with the [facility] transplant team who reviewed case. At this time, they recommend doing urine cultures. He asked me to discharge the patient home on antibiotics. Patient already has a scheduled follow up appointment. They will follow him Up in the office. Risk Prescription drug management. ED Course: Clinical Impressions as of 07/25/25 1204 Acute cystitis without hematuria . ED Disposition ED Disposition Discharge Date/Time Lara Jul 12, 2025 10:38 PM Comment At the time of discharge, the plan has been discussed with the patient regarding the diagnosis and prognosis. All questions have been answered. Verbal discharge instructions were discussed with the patient. The patient has been advised to follow up w ith their Primary Care Provider within 1-2 days.The patient was also instructed to return to the ED if their symptoms change, worsen, new symptoms a rise or if they have any additional concerns. Medications Prescribed this Visit Sig CEPHalexin (KEFLEX) 500 mg capsule Take 1 capsule (500 mg total) by mouth in the morning and 1 capsule (500 mg total) at noon and 1 capsule (500 mg total) in the evening and 1 capsule (500 mg total) before bedtime. Do all this for 10 days. . Please note that portions of this note were completed with a voice recognition program. Efforts were made to edit the dictations but occasionally words are mis-transcribed. Tayler Carrillo 07/12/25 1624 Tayler Carrillo 07/12/25 1802 Tayler Carrillo 07/12/25 2152 Kristen Pettit DO 07/25/25 0903 Kristen Pettit DO 07/25/25 1204 documented in this encounter Plan of Treatment Not on file documented as of this encounter Goals GoalPatient Goal TypeAssociated ProblemsRecent ProgressPatient-Stated?Author Katharina Torres LSW Note: Evaluation of progress towards goal: Safe dc transition from hospital to home pending clinical course. documented as of this encounter Procedures Procedure NamePriorityDate/TimeAssociated DiagnosisCommentsPOCT NURSING URINE MACROSCOPIC ZWVgmmtsw44/11/2025 10:11 PM EST ER EXTRA URINE QRLUQELUFQ72/11/2025 10:05 PM EST ER EXTRA GPLXXBHNP82/11/2025 10:05 PM EST URINE SCTDUAVQYDD93/11/2025 10:05 PM EST BLOOD MNOGQIIRDHY09/11/2025 9:01 PM EST BLOOD JBJXUHCMHLI94/11/2025 9:01 PM EST TROP I, HIGH SENSITIVITY 1 IJTUPSTG85/11/2025 5:[address] ABDOMEN AND PELVIS WO GGKSYAQE47/11/2025 5:16 PM EST XR CHEST 1 ZURVOU8007/12/2025 5:03 PM EST TROPONIN I, HIGH SENSITIVITY 0 UYKNPUFM15/11/2025 4:36 PM EST EXTRA TUBES BLUE MYXDmbzzrg83/11/2025 4:36 PM EST TROPONIN I, HIGH SENSITIVITY 0 SLPGUKIN05/11/2025 4:36 PM EST EXTRA CDFCVZklkkna15/11/2025 4:36 PM EST CBC WITH AUTO SPLRLBWOUWUQTDXA97/11/2025 4:36 PM EST B-TYPE NATRIURETIC HSCZJZGWJAP84/11/2025 4:36 PM EST BGFKGOKXTQ17/11/2025 4:36 PM EST COMPREHENSIVE METABOLIC QTCMGDVNW77/11/2025 4:36 PM EST documented in this encounter Results * (ABNORMAL) POCT Nursing Urine Macroscopic UA (07/12/2025 10:11 PM EST) ComponentValueRef RangeTest MethodAnalysis TimePerformed AtPathologist [facility] Urine Specific Gravity1.0201.010, 1.015, 1.020, 1.0847507/12/2025 10:12 PM ESTPROM[facility]OMM[facility] Urine Leukocyte Esterase Small(A)Rsodtyaz41/11/2025 10:12 PM ESTPROMEDICOMMUN[facility] Urine NitritePositive(A)Wgmepsxd30/11/2025 10:12 PM ESTPROMEDICOMMUNITY MED[facility] Urine pH7.05.0, 6.0, 6.5, 7.0, 7.5, 8.0, 8.5, 5.5 07/12/2025 10:12 PM ESTPROGOLE[facility] Urine Giumhoy82 mg/dL(A)Slnaxggn75/11/2025 10:12 PM ESTPROGOLETA [facility] Urine JtfzuclFmfzkpsuHxtzmqcm08/11/2025 10:12 PM [facility] Urine PrdupzcDwftiaoeLyurqmot04/11/2025 10:12 PM ESTPROGOLETA VALLEY [facility] Urine Urobilinogen0.2 E.U./dL07/12/2025 10:12 PM ESTCLEVEL[facility] Urine BilirubinNegativeNegative 07/12/2025 10:12 PM [facility] Urine Blood/HGB SzkpoxvnIuymcwao69/11/2025 10:12 PM [facility] Specimen (Source)Anatomical Location / LateralityCollection Method / Volume Collection TimeReceived XaktPojfx86/11/2025 10:11 PM EST07/12/2025 10:12 PM EST Narrative Authorizing ProviderResult TypeResult StatusKristen Pettit DOPOINT OF CARE TEST ORDERABLESFinal ResultPerforming OrganizationAddressCity/State/ZIP CodePhone Number [facility] [address] [place] [address], * (ABNORMAL) Urine Culture Urine, Clean Catch Midstream (07/12/2025 10:05 PM EST)ComponentValueRef RangeTest MethodAnalysis TimePerformed AtPathologist SignatureCULTURE RESULTS>100,000 CFU/mL Pseudomonas aeruginosa(A)07/15/2025 4:42 PM [facility] LAB[facility]YSpecimen (Source)Anatomical Location / LateralityCollection Method / VolumeCollection TimeReceived Time UrineUrine specimen collection, clean catch / Kfhnnpu0207/12/2025 10:05 PM EST 07/12/2025 10:14 PM EST Narrative OrganismAntibioticMethodSusceptibilityPseudomonas aeruginosaPIPERACIL/TAZOBACTAM 16: Susceptible Pseudomonas aeruginosaCefepime 4.0: Susceptible Pseudomonas aeruginosaMeropenem 2.0: Susceptible Pseudomonas aeruginosaAmikacin 2.0: Susceptible Pseudomonas aeruginosaTobramycin <=1.0: Susceptible Pseudomonas aeruginosaCiprofloxacin 1.0: Intermediate Pseudomonas aeruginosaLevofloxacin 4.0: Resistant Authorizing ProviderResult TypeResult StatusKristen Pettit DOMICROBIOLOGY - GENERAL ORDERABLESFinal ResultPerforming OrganizationAddressCity/State/ZIP Code Phone Number [facility] [address] [place] [address], * Extra Urine [place] (07/12/2025 10:05 PM EST)ComponentValueRef RangeTest Method Analysis TimePerformed AtPathologist SignatureExtra TubeAuto Resulted 07/13/2025 12:02 AM [facility] (Source) Anatomical Location / LateralityCollection Method / VolumeCollection Time Received TimeUrineUrine specimen collection, clean catch / Uymfjxr3607/12/2025 10:05 PM EST07/12/2025 10:14 PM EST Narrative Authorizing ProviderResult TypeResult StatusKristen Pettit DOURINE ORDERABLES Final ResultPerforming OrganizationAddressty/State/ZIP CodePhone Number [address] [address], * Extra Urine (07/12/2025 10:05 PM EST)ComponentValueRef RangeTest Method Analysis TimePerformed AtPathologist SignatureExtra TubeAuto Resulted 07/13/2025 12:02 AM [facility] (Source) Anatomical Location / LateralityCollection Method / VolumeCollection Time Received TimeUrineUrine specimen collection, clean catch / Faeewpw3607/12/2025 10:05 PM EST07/12/2025 10:14 PM EST Narrative Authorizing ProviderResult TypeResult StatusKristen Pettit DOURINE ORDERABLES Final ResultPerforming OrganizationAddressty/State/ZIP CodePhone Number [address] [address], * Blood culture (07/12/2025 9:01 PM EST)ComponentValueRef RangeTest Method Analysis TimePerformed AtPathologist SignatureCULTURE RESULTSNO GROWTH 5 DAYS 07/18/2025 3:02 AM [facility]pec[facility] (Source) Anatomical Location / LateralityCollection Method / VolumeCollection Time Received TimeBloodVenous blood / UnknownVenipuncture / Mfpgrmi3607/12/2025 9:01 PM EST07/12/2025 9:24 PM EST Narrative [facility] - 07/18/2025 3:02 AM EST Suboptimal volume of blood collected, Results may be affected. Authorizing ProviderResult TypeResult StatusKristen Kia Pettit [facility] - GENERAL ORDERABLESFinal ResultPerforming OrganizationAddressCity/State/ZIP Code Phone Number [facility] [address] [place] [address], * Blood culture (07/12/2025 9:01 PM EST)ComponentValueRef RangeTest Method Analysis TimePerformed AtPathologist SignatureCULTURE RESULTSNO GROWTH 5 DAYS 07/18/2025 3:02 AM [facility]pecimen (Source) Anatomical Location / LateralityCollection Method / VolumeCollection Time Received TimeBloodVenous blood / UnknownVenipuncture / Lxlanvu1407/12/2025 9:01 PM EST07/12/2025 9:23 PM EST Narrative [facility] - 07/18/2025 3:02 AM EST Suboptimal volume of blood collected, Results may be affected. Authorizing ProviderResult TypeResult StatusKristen Kia [facility] - GENERAL ORDERABLESFinal ResultPerforming OrganizationAddressCity/State/ZIP Code Phone Number [facility] [address] [place] [address], [place] [phone] * (ABNORMAL) Troponin I, High Sensitivity 1 Hour (07/12/2025 5:50 PM EST) ComponentValueRef RangeTest MethodAnalysis TimePerformed AtPathologist SignatureTROPONIN I, HIGH ASZPAUGKOFR06(H)<21 ng/L109/12/2024 6:32 PM EST [facility] ([facility])Anatomical Location / LateralityCollection Method / VolumeCollection TimeReceived TimeBloodVenous blood / UnknownVenipuncture / Tzqqfnc8107/12/2025 5:50 PM EST07/12/2025 5:57 PM EST Narrative [facility] - 07/12/2025 6:32 PM EST Elevations of hs-Troponin may be due to causes other than myocardial ischemia. Recommend serial hs-Troponin testing be performed. For the initial evaluation and management of chest pain patients, refer to the algorithms linked below. Emergency Patient: [email or web address] Inpatient: [email or web address] Authorizing ProviderResult TypeResult StatusAlisalisa Pettit [facility] BLOOD ORDERABLESFinal ResultPerforming OrganizationAddressCity/State/ZIP CodePhone Number [facility] [address] [place] [address], [place] * CT abdomen and pelvis without contrast (07/12/2025 5:16 PM EST)Anatomical RegionLateralityModalityBody, Abdomen, Body CoveraN/AComputed Tomography Specimen (Source)Anatomical Location / LateralityCollection Method / Volume Collection TimeReceived Time07/12/2025 5:27 PM EST Narrative 07/12/2025 5:32 PM EST EXAM: ABDOMEN AND PELVIS CT WITHOUT CONTRAST CLINICAL INFORMATION: abdominal pain. TECHNIQUE: Routine unenhanced CT of the abdomen and pelvis was performed utilizing 5 mm axial reconstructions. Coronal and sagittal reformatted images as were obtained and reviewed. Automated exposure control was utilized. COMPARISON: 09/04/2015 FINDINGS: The limited visualized lung bases demonstrate small layering pleural effusions with bibasilar atelectasis. There is a small anterior pericardial effusion measuring up to 0.9 cm in thickness. There are new postsurgical changes with a right lower quadrant transplanted kidney. There is a generalized edematous appearance of the transplanted kidney with perinephric fat stranding and moderate collecting system dilatation. There is no convincing evidence for a renal or ureteral stone. There is a prominent tubular fluid-filled structure in the right lower quadrant and pelvis, which may represent a severely dilated ureter. There are chronically atrophic [place] kidneys with a left renal cyst.There is no evidence for collecting system dilatation in either the [place] kidneys. There is a small amount of perihepatic free fluid. The gallbladder is present. There is a tiny nonspecific low-attenuation lesion in the right hepatic lobe. There are small splenic remnants in the left upper quadrant. The pancreas is unremarkable. The adrenals are unremarkable. There are postsurgical changes status post sigmoid colectomy with primary anastomosis. There are no dilated loops of bowel or evidence of pneumatosis or free air. There are calcifications throughout a normal diameter abdominal aorta and iliac arteries. There is generalized mild body wall edema. IMPRESSION: 1. Interval right lower quadrant transplanted kidney. There is a generalized edematous appearance of the transplanted kidney with perinephric edema and collecting system dilatation. A fluid-filled tubular structure in the right lower quadrant and pelvis may represent a severely dilated ureter. Clinical correlation for ureteral anastomotic stricture is recommended. 2. Chronically atrophic [place] kidneys with a left renal cyst. There are no renal or ureteral stones. There is no collecting system dilatation in the atrophic [place] kidneys. 3. Trace amount of perihepatic free fluid with mild generalized body wall edema. The limited visualized lower chest demonstrates small pleural effusions with bibasilar atelectasis and small pericardial effusion. 4. Small splenic remnants in the left upper quadrant. 5. A tiny low-attenuation lesion in the right hepatic lobe is too small to accurately characterize. 6. Status post sigmoid colectomy with primary anastomosis. There is no evidence of bowel obstruction. All CT scans at this facility use dose modulation, iterative reconstruction, and/or weight based dosing when appropriate to reduce radiation dose to as low as reasonably achievable. Finalized by Manan Bey MD on 07/12/2025 5:32 PM Procedure Note Manan Bey MD - 07/12/2025 EXAM: ABDOMEN AND PELVIS CT WITHOUT CONTRAST CLINICAL INFORMATION: abdominal pain. TECHNIQUE: Routine unenhanced CT of the abdomen and pelvis was performed utilizing 5 mm axial reconstructions. Coronal and sagittal reformattedimages as were obtained and reviewed. Automated exposure control wasutilized. COMPARISON: 09/04/2015 FINDINGS: The limited visualized lung bases demonstrate small layering pleuraleffusions with bibasilar atelectasis. There is a small anteriorpericardial effusion measuring up to 0.9 cm in thickness. There are new postsurgical changes with a right lower quadranttransplanted kidney. There is a generalized edematous appearance of thetransplanted kidney with perinephric fat stranding and moderate collectingsystem dilatation. There is no convincing evidence for a renal or ureteralstone. There is a prominent tubular fluid-filled structure in the right lower quadrantand pelvis, which may represent a severely dilated ureter. There arechronically atrophic [place] kidneys with a left renal cyst. There is noevidence for collecting system dilatation in either the [place] kidneys.There is a small amount of perihepatic free fluid. The gallbladder is present. Thereis a tiny nonspecific low-attenuation lesion in the right hepatic lobe.There are small splenic remnants in the left upper quadrant. The pancreasis unremarkable. The adrenals are unremarkable. There are postsurgicalchanges status post sigmoid colectomy with primary anastomosis. There are nodilated loops of bowel or evidence of pneumatosis or free air. There arecalcifications throughout a normal diameter abdominal aorta and iliacarteries. There is generalized mild body wall edema. IMPRESSION: 1. Interval right lower quadrant transplanted kidney. There is ageneralized edematous appearance of the transplanted kidney withperinephric edema and collecting system dilatation. A fluid-filled tubularstructure in the right lower quadrant and pelvis may represent a severelydilated ureter. Clinical correlation for ureteral anastomotic stricture is recommended. 2. Chronically atrophic [place] kidneys with a left renal cyst. There areno renal or ureteral stones. There is no collecting system dilatation inthe atrophic [place] kidneys. 3. Trace amount of perihepatic free fluid with mild generalized body walledema. The limited visualized lower chest demonstrates small pleuraleffusions with bibasilar atelectasis and small pericardial effusion. 4. Small splenic remnants in the left upper quadrant. 5. A tiny low-attenuation lesion in the right hepatic lobe is too small to accurately characterize. 6. Status post sigmoid colectomy with primary anastomosis. There is noevidence of bowel obstruction. All CT scans at this facility use dose modulation, iterativereconstruction, and/or weight based dosing when appropriate to reduceradiation dose to as low as reasonably achievable. Finalized by Manan Bey MD on 07/12/2025 5:32 PM Authorizing ProviderResult TypeResult StatusAlisalisa Pettit [facility] CT ORDERABLES Final Result * X-ray chest 1 view (07/12/2025 5:03 PM EST)Anatomical RegionLateralityModality Body, ChestN/AComputed RadiographySpecimen (Source)Anatomical Location / LateralityCollection Method / VolumeCollection TimeReceived Time07/12/2025 5:05 PM EST Narrative 07/12/2025 5:06 PM EST CLINICAL INFORMATION: Covid last week. Cough COMPARISON: Chest radiograph dated 07/02/2021. VIEWS: 1. FINDINGS: Cardiac and mediastinal shadows are normal. Left basilar infiltrate. No effusions. No pneumothorax.No free air below the diaphragm. IMPRESSION: Left basilar infiltrate. Finalized by Ivonne Nieto MD on 07/12/2025 5:06 PM Procedure Note Ivonne Nieto MD - 07/12/2025 CLINICAL INFORMATION: Covid last week. Cough COMPARISON: Chest radiograph dated 07/02/2021. VIEWS: 1. FINDINGS: Cardiac and mediastinal shadows are normal. Left basilar infiltrate. No effusions. No pneumothorax. No free air below the diaphragm. IMPRESSION: Left basilar infiltrate. Finalized by Ivonne Nieto MD on 07/12/2025 5:06 PM Authorizing ProviderResult TypeResult Samuel Pettit [facility] DIAGNOSTIC IMAGING ORDERABLESFinal Result * Light Blue Top (07/12/2025 4:36 PM EST)ComponentValueRef RangeTest Method Analysis TimePerformed AtPathologist SignatureExtra TubeAuto Resulted 07/12/2025 6:02 PM [facility]PROM[facility]USpecimen (Source) Anatomical Location / LateralityCollection Method / VolumeCollection Time Received TimeBloodVenous blood / Oilmplt3707/12/2025 4:36 PM EST07/12/2025 4:41 PM EST Narrative Authorizing ProviderResult TypeResult StatusKristen Pettit [facility] BLOOD ORDERABLESFinal ResultPerforming OrganizationAddressCity/State/ZIP CodePhone Number [facility] [address] [place] [address], [place] * (ABNORMAL) Troponin I, High Sensitivity 0 Hour (07/12/2025 4:36 PM EST) ComponentValueRef RangeTest MethodAnalysis TimePerformed AtPathologist SignatureTROPONIN I, HIGH AESXCDUSKOC97(H)<21 ng/L109/12/2024 5:10 PM EST [facility] (Source)Anatomical Location / LateralityCollection Method / VolumeCollection TimeReceived TimeBloodVenous blood / UnknownVenipuncture / Urxnjyn4407/12/2025 4:36 PM EST07/12/2025 4:39 PM EST Narrative Authorizing ProviderResult TypeResult StatusAlisalisa [facility] BLOOD ORDERABLESFinal ResultPerforming OrganizationAddressty/State/ZIP CodePhone Number [address] [address], [place] * (ABNORMAL) B-type natriuretic peptide (07/12/2025 4:36 PM EST)ComponentValue Ref RangeTest MethodAnalysis TimePerformed AtPathologist SccpiqvgpIFU177(H) <=100 pg/mL07/12/2025 5:46 PM ESTPROSt. [facility]'s [facility] (Source)Anatomical Location / LateralityCollection Method / VolumeCollection TimeReceived TimeBloodVenous blood / UnknownVenipuncture / Grbuzvz0507/12/2025 4:36 PM EST07/12/2025 4:40 PM EST Narrative Authorizing ProviderResult TypeResult StatusWendia Kia CHI BLOOD ORDERABLESFinal ResultPerforming OrganizationAddPhoenixville Hospitalty/[facility]/ZIP CodePhone Number [address] [address], [place] * Lipase (07/12/2025 4:36 PM EST)ComponentValueRef RangeTest MethodAnalysis Time Performed AtPathologist MtgicjkkiDMADGF8097 - 40 U/L109/12/2024 5:00 PM EST [facility] (Source)Anatomical Location / LateralityCollection Method / VolumeCollection TimeReceived TimeBloodVenous blood / UnknownVenipuncture / Azadpyn3507/12/2025 4:36 PM EST07/12/2025 4:39 PM EST Narrative Authorizing ProviderResult TypeResult StatusWendia Kia [facility] BLOOD ORDERABLESFinal ResultPerforming OrganizationAddPhoenixville Hospitalty/State/ZIP CodePhone Number [place] [address] [place] [address], * (ABNORMAL) Comprehensive metabolic panel (07/12/2025 4:36 PM EST)Component ValueRef RangeTest MethodAnalysis TimePerformed AtPathologist SignatureSODIUM 410440 - 146 mmol/L109/12/2024 5:03 PM [facility] POTASSIUM4.63.5 - 5.0 mmol/L109/12/2024 5:03 PM [facility] SYSTEMCHLORIDE10898 - 109 mmol/L109/12/2024 5:03 PM ESTGLENBEIGH HOSPITALCARBON NKYAOQR0872 - 32 mmol/L109/12/2024 5:03 PM [facility] SYSTEMANION GAP65 - 15 mmol/L109/12/2024 5:03 PM EST [facility]ITALBLOOD UREA DEQHGKNZ604 - 27 mg/dL07/12/2025 5:03 PM [facility] SYSTEMCREATININE1.38(H)0.70 - 1.20 mg/dL07/12/2025 5:03 PM [facility] SYSTEMComment:METHOD TRACEABLE TO IDMS HXKMRYPRNWGRBNG147(H)65 - 99 mg/dL07/12/2025 5:03 PM EST [facility]ITALCALCIUM7.8(L)8.5 - 10.5 mg/dL07/12/2025 5:03 PM [facility] SYSTEMTOTAL PROTEIN4.8(L)6.0 - 8.0 g/dL07/12/2025 5:03 PM [facility] SYSTEMALBUMIN2.2(L)3.2 - 5.3 g/dL07/12/2025 5:03 PM [facility] SYSTEMALKALINE YFIJOKUVSUP8901 - 130 U/L109/12/2024 5:03 PM [facility] SYSTEMAST18<=41 U/L109/12/2024 5:03 PM [facility] ALT17<=40 U/L109/12/2024 5:03 PM [facility] BILIRUBIN,TOTAL0.80.3 - 1.2 mg/dL07/12/2025 5:03 PM ESTGLENBEIGH HOSPITALEGFR Non-Race Xdyxyouus17(L)>=60 ml/min/1.73sq.m109/12/2024 5:03 PM ESTGLENBEIGH HOSPITALComment: eGFR not reported due to non-numeric value for Creatinine. Reported eGFR is based on the CKD-EPI 2020 equation that does not use a race coefficient. Specimen (Source)Anatomical Location / LateralityCollection Method / Volume Collection TimeReceived TimeBloodVenous blood / UnknownVenipuncture / Unknown 07/12/2025 4:36 PM EST07/12/2025 4:39 PM EST Narrative Authorizing ProviderResult TypeResult StatusAlisalisa Pettit [facility] BLOOD ORDERABLESFinal ResultPerforming OrganizationAddressCity/State/ZIP CodePhone Number [facility] [address] [place] [address], * (ABNORMAL) CBC auto differential (07/12/2025 4:36 PM EST)ComponentValueRef RangeTest MethodAnalysis TimePerformed AtPathologist LnrlkxfdaAAS71.5(H)4 - 11 10^9/L109/12/2024 5:28 PM [facility] SYSTEMRBC Count2.87 (L)4.1 - 5.7 10^12/L109/12/2024 5:28 PM [facility] Hemoglobin9.6(L)13 - 17 g/dL07/12/2025 5:28 PM ESTGLENBEIGH HOSPITALHematocrit28.8(L)39 - 50 %07/12/2025 5:28 PM ESTGLENBEIGH HOSPITALMCV10080 - 100 fL07/12/2025 5:28 PM ESTGLENBEIGH HOSPITALMCH33.427 - 34 pg07/12/2025 5:28 PM ESTGLENBEIGH HOSPITALMCHC33.332 - 36 g/dL07/12/2025 5:28 PM ESTGLENBEIGH HOSPITALRDW16.4(H)11.5 - 15 %07/12/2025 5:28 PM [facility] SYSTEMPlatelet Fvisa178544 - 450 10^9/L109/12/2024 5:28 PM EST [facility]PITALMPV9.67 - 12 fL07/12/2025 5:28 PM EST [facility]PITALNeutrophils %87%07/12/2025 5:28 PM EST [facility]ITALComment:This is an appended report. These results have been appended to a previously preliminary verified report. Lymphocytes %9%07/12/2025 5:28 PM [facility] Comment:This is an appended report. These results have been appended to a previously preliminary verified report.Monocytes %4%07/12/2025 5:28 PM EST [facility]ITALComment:This is an appended report. These results have been appended to a previously preliminary verified report. Neutrophils Absolute (M)10.9(H)1.5 - 6.6 10^9/L109/12/2024 5:28 PM [facility]Comment:This is an appended report. These results have been appended to a previously preliminary verified report.Lymphocytes Absolute1.11.0 - 3.5 10^9/L109/12/2024 5:28 PM [facility]Comment:This is an appended report. These results have been appended to a previously preliminary verified report.Monocytes Absolute0.50.0 - 0.9 10^9/L109/12/2024 5:28 PM [facility]Comment:This is an appended report. These results have been appended to a previously preliminary verified report.Smudge Cells1+07/12/2025 5:28 PM [facility]Comment:This is an appended report. These results have been appended to a previously preliminary verified report.Brisa Cells1+ 07/12/2025 5:28 PM [facility]Comment:This is an appended report. These results have been appended to a previously preliminary verified report.RBC Fragments1+07/12/2025 5:28 PM ESTPROANAHEIM REGIONAL MEDICAL CENTERComment:This is an appended report. These results have been appended to a previously preliminary verified report.Differential TypeMANUAL RUSXNLFVDTMH95/11/2025 5:28 PM [facility]Comment: This is an appended report. These results have been appended to a previously preliminary verified report.Specimen (Source)Anatomical Location / Laterality Collection Method / VolumeCollection TimeReceived TimeBloodVenous blood / UnknownVenipuncture / Difkavq6207/12/2025 4:36 PM EST07/12/2025 4:40 PM EST Narrative Authorizing ProviderResult TypeResult StatusKristen [facility] BLOOD ORDERABLESFinal ResultPerforming OrganizationAddressCity/State/ZIP CodePhone Number [facility] [address] [place] [address], documented in this encounter Visit Diagnoses Diagnosis Acute cystitis without hematuria- Primary documented in this encounter Administered Medications Medication OrderMAR ActionAction DateDoseRateSite cefTRIAXone (ROCEPHIN) IVPB 1000 mg/50 mL in iso-osmotic dextrose (20 mg/mL premix) 1,000 mg, intravenous, at 100 mL/hr, Administer over 30 Minutes, Once, On Lara 07/12/25 at 2023, For1 dose, Look-alike/sound-alike medication - verify indication for use. Do not co-administer with calcium-containing solutions such as Lactated Ringers., Indication: Other, Specify: prophylatic abx New Bag07/12/2025 10:08 PM EST1,000 mg100 mL/hrdocumented in this encounter Active and Recently Administered Medications Times are shown in EST.Medication Order/ cefTRIAXone (ROCEPHIN) IVPB 1000 mg/50 mL in iso-osmotic dextrose (20 mg/mL premix) (COMPLETED) 1,000 mg, intravenous, at 100 mL/hr, Administer over 30 Minutes, Once, On Lara 07/12/25 at 2023, For1 dose, Look-alike/sound-alike medication - verify indication for use. Do not co-administer with calcium-containing solutions such as Lactated Ringers., Indication: Other, Specify: prophylatic abx * 2207 (New Bag - Provider: Suzy Thomas RN) * 2236 (Stop Bag - Provider: Suzy Thomas RN) documented in this encounter Additional Health Concerns AssessmentNoted TimePHQ-9 Depression Total Score: 10:12 AM EDT documented as of this encounter Care Teams Team MemberRelationshipSpecialtyStart DateEnd Date Abebe Stewart MD [address] [place] [address], [address] [place] [address] PCP - NdvqeciDptdpiypil34/20/17documented as of this encounter
--- OUTSIDE RECORDS SUMMARY | 2025-07-13 18:05 | XMS_ITS | Encounter Summary ---
Author Organization [facility] Address [address] [place] [address] Care Team Providers Care General Adjuster Name Role Phone Abebe Stewart MD Primary Care Provider [phone] Abebe Tan MD Unavailable Reason for Visit * Auth/Cert (Routine)SpecialtyDiagnoses / ProceduresReferred By ContactReferred To Contact Diagnoses S/P kidney transplant Failure to Thrive Procedures NO CODED SERVICES Jayjay Robin MD [address] [place] [phone] Phone: tel: fax: [facility] [address] [place] [address] Phone: tel: fax: Referral IDStatusReasonStart DateExpiration DateVisits RequestedVisits [id number] Encounter Details DateTypeDepartmentCare Team (Latest Contact Info)Emyhezhadjk56/12/2025 6:05 PM EST - 07/24/2025 4:53 PM ESTHospital Encounter [facility] [address] [place] [address] Jayjay Robin MD [address] [place] [phone] S/P kidney transplant (Primary Dx); Immunosuppressive management encounter following kidney transplant; Encounter for aftercare following kidney transplant; Hypocalcemia; Vitamin D deficiency; Transplant recipient; C. difficile colitis; Decrease in appetite; Immunosuppression; Dehydration Discharge Disposition: Senior Care Facility (03) Social History Tobacco UseTypesPacks/DayYears UsedDateSmoking Tobacco: [id number] - 1974Passive Smoke Exposure: PastSmokeless Tobacco: NeverAlcohol UseStandard Drinks/WeekCommentsYes0 (1 standard drink = 0.6 oz pure alcohol)rareSocial Connection and Isolation PanelAnswerDate RecordedIn a typical week, how many times do you talk on the phone with family, friends, or neighbors?More than three times a week04/05/2025How often do you get together with friends or relatives?More than three times a week04/05/2025How often do you attend druze or faith services?Never04/05/2025Do you belong to any clubs or organizations such as druze groups, unions, fraternal or athletic groups, or school groups?No 04/05/2025How often do you attend meetings of the clubs or organizations you belong to?Never04/05/2025re you , , , , never , or living with a partner?Gjrhgvmmf39/04/2025UDIT-CAnswerDate Recorded Q1: How often do you have a drink containing alcohol?Never04/05/2025Q2: How many drinks containing alcohol do you have on a typical day when you are drinking? Patient does not drink04/05/2025Q3: How often do you have six or more drinks on one occasion?Never04/05/2025PHQ-2AnswerDate RecordedPatient Health Questionnaire-2 [facility]g848[facility] [place] [facility] - Occupational Stress QuestionnaireAnswerDate RecordedDo you feel stress - tense, restless, nervous, or anxious, or unable to sleep at night because yourmind is troubled all the time - these days?Only a xlrcev6204/05/2025Humiliation, Afraid, Rape, and Kick questionnaireAnswerDate RecordedWithin the last year, have you been afraid of your partner or ex-partner?No07/13/2025Emotionally AbusedNot on file07/13/2025Physically AbusedNot on file07/13/2025Sexually AbusedNot on file 07/13/2025Overall Financial Resource Strain (CARDIA)AnswerDate RecordedHow hard is it for you to pay for the very basics like food, housing, medical care, and heating?Not hard at all07/13/2025HC UtilitiesAnswerDate RecordedIn the past 12 months has the [employer] gas, oil, or water [employer] threatened to shut off services in your [...] or living in a care home (including now)?No07/13/2025Hunger Vital Sign AnswerDate RecordedWithin the past 12 months, you worried that your food would run out before you got the money to buymore.Never true07/13/2025Within the past 12 months, the food you bought just didn't last and you didn't have money to get more.Never true07/13/2025Sex and Gender InformationValueDate RecordedSex Assigned at JulxdFhwz94/20/2025 6:43 AM ESTLegal XrkHuyt5801/29/2022 12:45 AM EDT Gender TkzhbtkwCbkg29/20/2025 7:43 AM ESTSexual OrientationHeterosexual or Inpwsxus13/20/2025 7:43 AM ESTdocumented as of this encounter Last Filed Vital Signs Vital SignReadingTime TakenCommentsBlood Dkyuyafc037/8507/24/2025 9:11 AM EST Awkxu783407/24/2025 9:11 AM EBBNcwofouogdq00.9 ??C (98.4 ??F)07/24/2025 9:11 AM ESTRespiratory Raiw913109/24/2024 9:11 AM ESTOxygen Fsawekfgpt94%07/24/2025 9:11 AM ESTInhaled Oxygen Concentration--Wigxrh82.5 kg (188 lb 7.9 oz)07/24/2025 4:21 AM HMZItcvri360.4 cm (6' 0.99 )07/13/2025 8:36 PM ESTBody [...] C-diff diarrhea Fevers Severe PCM Discharge Disposition Senior Care Facility (03) Discharge Medications Your medication list [...] Medications These medications were sent to [facility] - [place], [place] - [address], [facility] [address] calcium carbonate-vitamin D3 500 mg-5 mcg (200 [...] Glucose, Urine Normal Bilirubin, Urine Negative Specific [place], Urine 1.013 Ketones, Urine Negative Blood, Urine [...] is performed under the ED CLIA certificate #[id number]. CBC - Abnormal Auto WBC 21.21 (*) [...] Glucose, Urine Normal Bilirubin, Urine Negative Specific [place], Urine <1.005 (*) Ketones, Urine Negative Blood, [...] Procedure Abnormality Status --------- ------ CBC auto differential[[id number]] Abnormal Final result Please view results for these tests on the individual orders. DONOR SPECIFIC ANTIBODY Narrative: The following orders were created for panel order Donor specific antibody. Procedure Abnormality Status --------- ------ Single antigen class I[[id number]] Final result Single antigen class II[[id number]] Final result Please view results for these [...] Signed By Value: Signed by Abebe Stovall CHT([facility]) ALYSSA([facility]), Ingot Caster Transplant Immunology Comments No Class I donor specific antibody identified SINGLE ANTIGEN CLASS II Tested Date Comments No Class II donor specific antibody identified Test Method Class II Single Antigen Signed By Value: Signed by Abebe Stovall CHT([facility]) ALYSSA([facility]), Ingot Caster Transplant Immunology LEELA PROSPERA Nutrition Screen Clinical [...] Provider Department Center 08/06/2025 8:00 AM TRANSPLANT WINDOW TINTER RESOURCE TXP None Test Results Pending At [...] 2mg twice a day when discharged from [facility] * Discharge Instr - Activity* Annalee Mark [...] guaiFENesin (Mucinex) 600 mg 12 hr tablet Indications:[id number] 07/13 - 07/23Take 1,200 mg by mouth [...] Nutrition Assessment: 07/14/25 Pt has been at [facility] since 06/15/25. He c/o food & [...] Comments: Canned peaches, strawberry yogurt, apple juice, albanian muffin, chicken quesadilla, applesauce, vanilla pudding, orange sherbet 07/21/25 1729 07/21/25 1633 Special Kitchen Request Once Comments: Raspberry sherbet x2 07/21/25 1632 07/21/25 1352 Special Kitchen Request Once Comments: Canned pineapple, mandarin oranges, ford yogurt, grape juice x2, raspberry maori, vanilla pudding, raspberry sherbet 07/21/25 1353 07/21/25 0950 Special Kitchen Request Once Comments: Omelet with onion, swedish cheese, mushroom, dominican cheese, diced green pepper, 2 slices f vega, 1 cream of wheat with brown sugar topping, 1 albanian muffin, mandarin oranges, apple juice,vanilla yogurt, salt, [...] on: admission weight (77.6 kg) Calorie needs: 0775-6438 kcals/day based on 25-30 kcal/kg Protein needs: [...] To reach the Clinical Dietitian, please utilize [employer] chat Wednesday-Wednesday from 8AM-4PM or call extension [phone]. For weekends (Wednesday-Wednesday) and holidays, the Clinical Dietitian can be reached via pager ([phone] from 9AM-3PM. The Clinical Nutrition Department is unable to respond to [employer] chat messages on Sundays and s. [1] Past Medical History: Diagnosis Date Anemia in chronic kidney disease (CKD) CKD (chronic kidney disease) stage 5, GFR less than 15 ml/min ([facility]) Diverticular disease s/p colectomy 2015 Gout History of DVT (deep vein thrombosis) proximal vein left leg (from distal calf to groin, 07/2021, was to be on lifelong warfarin but stopped after 05/2022 GI bleed) Hypertensive disorder Lung nodule seen on imaging study NSAID long-term use h/o Proteinuria Recurrent sinusitis Recurrent sinusitis Renal cyst, left Secondary hyperparathyroidism of renal origin Stroke ([facility]) Vitamin D deficiency [2] Allergies Allergen Reactions [...] Dose Status acetaminophen (Tylenol) 325 mg tablet [id number] Take 650 mg by mouth every 6 (six) hours if needed for mild pain (1-3 pain score) or fever greater than or equal to 38 degrees Celsius. Historical Provider, Active azaTHIOprine (Imuran) 75 mg tablet [id number] No Take 1 tablet (75 mg) by mouth in the morning for 96doses. Patient not taking: Reported on 07/13/2025 Grazyna Briseno CNP Not Taking Active calcium carbonate (Tums) 200 mg calcium (500 mg) chewable tablet [id number] Chew 3 tablets (1,500 mg)two times daily. Without food Patient taking differently: Chew 2 tablets two times daily. Without food Jayjay Robin MD Active calcium carbonate-vitamin D3 500 mg-5 mcg (200 unit) tablet [id number] Take 2 tablets by mouth two times daily. Patient taking differently: Take 1 tablet by mouth at bedtime. Grazyna Briseno CNP Active carvedilol (Coreg) 25 mg tablet [id number] 25 mg with breakfast and with evening meal. Cristal Vazquez MD Active cephalexin (Keflex) 500 mg capsule [id number] Take 500 mg by mouth four times daily. FOR INFECTION FOR 10 DAYS(07/13 - 07/23) Cristal Vazquez MD Active docusate sodium (Colace) 100 mg capsule [id number] Take 100 mg by mouth two times daily. Cristal Vazquez MD Active famotidine (Pepcid) 20 mg tablet [id number] Take 1 tablet (20 mg) by mouth at bedtime. Jayjay Robin MD Active finasteride (Proscar) 5 mg tablet [id number] Take 1 tablet (5 mg) by mouth in the morning. Do not crush, chew, or split. Jayjay Robin MD Active folic acid (Folvite) 1 mg tablet [id number] Take 1 tablet (1 mg) by mouth in the morning for 94 doses. Grazyna Briseno CNP Active guaiFENesin (Mucinex) 600 mg 12 hr tablet [id number] Take 1,200 mg by mouth two times daily. Do not crush, chew, or split. Cristal Vazquez MD Active hydrALAZINE (Apresoline) 100 mg tablet [id number] Take 1 tablet (100 mg) by mouth three times daily. Wendy Lomeli MD Active ipratropium-albuteroL (Duo-Neb) 0.5-2.5 mg/3 mL nebulizer solution [id number] Take 3 mL by nebulization every 6 (six) hours if needed for wheezing or shortness of breath. Cristal Vazquez MD Active magnesium glycinate 100 mg magnesium capsule [id number] Take 3 capsules (300 mg) by mouth three timesdaily. Jayjay Robin MD Active NIFEdipine XL (Procardia XL) 30 mg 24 hr tablet [id number] Take 1 tablet (30 mg) by mouth in the morning. Do not crush, chew, or split. Jayjay Robin MD Active nystatin (Mycostatin) 100,000 unit/mL suspension [id number] Take 5 mL (500,000 Units) by mouth four times daily. Swish and swallow Wendy Lomeli MD Active ondansetron (Zofran) 4 mg tablet [id number] Take 4 mg by mouth every 4 (four) hours if needed for nausea or vomiting. Historical ProviderMD Active pantoprazole (ProtoNix) 40 mg EC tablet [id number] Take 1 tablet (40 mg) by mouth before breakfast. Do not crush, chew, or split. Delano Klein MD Active predniSONE (Deltasone) 10 mg tablet [id number] Take 1 tablet (10 mg) by mouth in the morning. Jayjay Robin MD Active sod phos di, mono-K phos mono (K Phos Neutral) tablet [id number] Take 1 tablet by mouth two times daily. Jayjay Robin MD Active sulfamethoxazole-trimethoprim (Bactrim DS) 800-160 mg tablet [id number] Take 1 tablet by mouth 3 (three) times a week. On Wednesday, Wednesday, and Wednesday Wendy Lomeli MD Active tacrolimus ER (Envarsus XR) 4 mg tablet ER [id number] Take 1 tablet (4 mg) by mouth in the morning. Script total 8.5 mg daily Patient taking differently: Take 4 mg by mouth in the morning. 4 mg daily Wendy Lomeli MD Active tamsulosin (Flomax) 0.4 mg 24 hr capsule [id number] Take 2 capsules (0.8 mg) by mouth in the morning.Jayjay Robin MD Active valGANciclovir (Valcyte) 450 mg tablet [id number] Take 1 tablet (450 mg) by mouth in the morning. As directed. Wedny Lomeli MD Active vancomycin (Vancocin) 125 mg capsule [id number] Take 125 mg by mouth 2 times [...] No biliary ductal dilatation is identified. Both table mountain kidneys are small and atrophic. There is no evidence of hydronephrosis in the table mountain kidneys. There is a stable left renal [...] the left upper abdomen. * Atrophic both table mountain kidneys with the left renal cyst. * [...] Madeleine Lewis. Internal Medicine Resident , PGY-1 [facility] Cosigned by Delano Klein MD at 07/25/2025 [...] Faculty, Division of Nephrology, Department of Medicine, [facility]. * YAMILKA Elder - 07/24/2025 10:00 AM EST Discharge Planning Patient is approaching medical readiness for discharge. Discharge plan is to return to [facility]. DNAIE sent updates through [facility] and notified them of potential discharge. Discharge order placed. [facility] confirmed they are able to accept patient today. DANIE scheduled transportation with [facility] for 4:00PM. DANIE sent [facility] and notified of transport time. Patient [...] No biliary ductal dilatation is identified. Both table mountain kidneys are small and atrophic. There is no evidence of hydronephrosis in the table mountain kidneys. There is a stable left renal [...] the left upper abdomen. * Atrophic both table mountain kidneys with the left renal cyst. 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 4 Total Score OT [facility] 18 OT Goals: Multi-Disciplinary Problems (from Occupational Therapy) Active Problems Problem: [facility] Start Date: 07/16/25 Goal Start [...] Patient : Christal Suh; 69 y.o. Location: [facility]/3176-01 Attending: Jayjay Robin MD Admit Date: 07/13/2025 [...] recent ischemic stroke (04/2025) who presented to [facility] due to concern for infection in an immunocompromised patient. He is Covid-19 positive and positive for C Diff. Patient has not been eating or drinking well. Notably, he was recently admitted to [facility] for a pseudomonas UTI from 05/29 [...] Dose Status acetaminophen (Tylenol) 325 mg tablet [id number] Take 650 mg by mouth every 6 (six) hours if needed for mild pain (1-3 pain score) or fever greater than or equal to 38 degrees Celsius. Historical Provider, Active azaTHIOprine (Imuran) 75 mg tablet [id number] No Take 1 tablet (75 mg) by mouth in the morning for 96doses. Patient not taking: Reported on 07/13/2025 Grazyna Briseno CNP Not Taking Active calcium carbonate (Tums) 200 mg calcium (500 mg) chewable tablet [id number] Chew 3 tablets (1,500 mg)two times daily. Without food Patient taking differently: Chew 2 tablets two times daily. Without food Jayjay Robin MD Active calcium carbonate-vitamin D3 500 mg-5 mcg (200 unit) tablet [id number] Take 2 tablets by mouth two times daily. Patient taking differently: Take 1 tablet by mouth at bedtime. Grazyna Briseno CNP Active carvedilol (Coreg) 25 mg tablet [id number] 25 mg with breakfast and with evening meal. Cristal Vazquez MD Active cephalexin (Keflex) 500 mg capsule [id number] Take 500 mg by mouth four times daily. FOR INFECTION FOR 10 DAYS(07/13 - 07/23) Cristal Vazquez MD Active docusate sodium (Colace) 100 mg capsule [id number] Take 100 mg by mouth two times daily. Cristal Vazquez MD Active famotidine (Pepcid) 20 mg tablet [id number] Take 1 tablet (20 mg) by mouth at bedtime. Jayjay Robin MD Active finasteride (Proscar) 5 mg tablet [id number] Take 1 tablet (5 mg) by mouth in the morning. Do not crush, chew, or split. Jayjay Robin MD Active folic acid (Folvite) 1 mg tablet [id number] Take 1 tablet (1 mg) by mouth in the morning for 94 doses. Grazyna Briseno CNP Active guaiFENesin (Mucinex) 600 mg 12 hr tablet [id number] Take 1,200 mg by mouth two times daily. Do not crush, chew, or split. Cristal Vazquez MD Active hydrALAZINE (Apresoline) 100 mg tablet [id number] Take 1 tablet (100 mg) by mouth three times daily. Wendy Lomeli MD Active ipratropium-albuteroL (Duo-Neb) 0.5-2.5 mg/3 mL nebulizer solution [id number] Take 3 mL by nebulization every 6 (six) hours if needed for wheezing or shortness of breath. Cristal Vazquez MD Active magnesium glycinate 100 mg magnesium capsule [id number] Take 3 capsules (300 mg) by mouth three timesdaily. Jayjay Robin MD Active NIFEdipine XL (Procardia XL) 30 mg 24 hr tablet [id number] Take 1 tablet (30 mg) by mouth in the morning. Do not crush, chew, or split. Jayjay Robin MD Active nystatin (Mycostatin) 100,000 unit/mL suspension [id number] Take 5 mL (500,000 Units) by mouth four times daily. Swish and swallow Wendy Lomeli MD Active ondansetron (Zofran) 4 mg tablet [id number] Take 4 mg by mouth every 4 (four) hours if needed for nausea or vomiting. Historical ProviderMD Active pantoprazole (ProtoNix) 40 mg EC tablet [id number] Take 1 tablet (40 mg) by mouth before breakfast. Do not crush, chew, or split. Delano Klein MD Active predniSONE (Deltasone) 10 mg tablet [id number] Take 1 tablet (10 mg) by mouth in the morning. Jayjay Robin MD Active sod phos di, mono-K phos mono (K Phos Neutral) tablet [id number] Take 1 tablet by mouth two times daily. Jayjay Robin MD Active sulfamethoxazole-trimethoprim (Bactrim DS) 800-160 mg tablet [id number] Take 1 tablet by mouth 3 (three) times a week. On Wednesday, Wednesday, and Wednesday Wendy Lomeli MD Active tacrolimus ER (Envarsus XR) 4 mg tablet ER [id number] Take 1 tablet (4 mg) by mouth in the morning. Script total 8.5 mg daily Patient taking differently: Take 4 mg by mouth in the morning. 4 mg daily Wendy Lomeli MD Active tamsulosin (Flomax) 0.4 mg 24 hr capsule [id number] Take 2 capsules (0.8 mg) by mouth in the morning.Jayjay Robin MD Active valGANciclovir (Valcyte) 450 mg tablet [id number] Take 1 tablet (450 mg) by mouth in the morning. As directed. Wendy Lomeli MD Active vancomycin (Vancocin) 125 mg capsule [id number] Take 125 mg by mouth 2 times [...] No biliary ductal dilatation is identified. Both table mountain kidneys are small and atrophic. There is no evidence of hydronephrosis in the table mountain kidneys. There is a stable left renal [...] the left upper abdomen. * Atrophic both table mountain kidneys with the left renal cyst. * [...] NS while admitted. Recommend discharging on NaHCO3 xytoecn4028 mg twice daily. Monitor lymphocele w/ serial [...] Stern MD, PhD Internal Medicine Resident, PGY-3 [facility] Cosigned by Delano Klein MD at 07/23/2025 [...] Faculty, Division of Nephrology, Department of Medicine, [facility]. * [...] No biliary ductal dilatation is identified. Both table mountain kidneys are small and atrophic. There is no evidence of hydronephrosis in the table mountain kidneys. There is a stable left renal [...] the left upper abdomen. * Atrophic both table mountain kidneys with the left renal cyst. * [...] the left upper abdomen. * Atrophic both table mountain kidneys with the left renal cyst. * [...] progress note was completed using a voice munitions worker system. Every effort was made to ensure accuracy; however, inadvertent computerized munitions worker errors may be present. Thank you for allowing us to participate in the care of this patient. Our consultation addresses complex antimicrobial therapy counseling and treatment Jonny Merino MD [facility] Please contact us via [email or web address] during business hours. If no response in 15 min, call / page through the heavy rail train operator Cosigned by Brinda Menjivar MD at 07/23/2025 [...] care of this patient. Brinda Menjivar MD [place] Infectious Diseases Phone:[phone] * Philip Jones MD - 07/22/2025 12:32 [...] progress note was completed using a voice munitions worker system. Every effort was made to ensure accuracy; however, inadvertent computerized munitions worker errors may be present. Thank you for allowing us to participate in the care of this patient. Our consultation addresses complex antimicrobial therapy counseling and treatment Philip Jones MD [facility] Please contact us via [employer] chat during business hours. If no response in 15 min, call / page through the heavy rail train operator * Jamison Guaman MD - 07/22/2025 9:48 [...] recent ischemic stroke (04/2025) who presented to [facility] due to concern for infection in an immunocompromised patient. He is Covid-19 positive and positive for C Diff. Patient has not been eating or drinking well. Notably, he was recently admitted to [facility] for a pseudomonas UTI from 05/29 [...] Dose Status acetaminophen (Tylenol) 325 mg tablet [id number] Take 650 mg by mouth every 6 (six) hours if needed for mild pain (1-3 pain score) or fever greater than or equal to 38 degrees Celsius. Historical ProviderMD Active azaTHIOprine (Imuran) 75 mg tablet [id number] No Take 1 tablet (75 mg) by mouth in the morning for 96doses. Patient not taking: Reported on 07/13/2025 Grazyna Briseno CNP Not Taking Active calcium carbonate (Tums) 200 mg calcium (500 mg) chewable tablet [id number] Chew 3 tablets (1,500 mg)two times daily. Without food Patient taking differently: Chew 2 tablets two times daily. Without food Jayjay Robin MD Active calcium carbonate-vitamin D3 500 mg-5 mcg (200 unit) tablet [id number] Take 2 tablets by mouth two times daily. Patient taking differently: Take 1 tablet by mouth at bedtime. Grazyna Briseno CNP Active carvedilol (Coreg) 25 mg tablet [id number] 25 mg with breakfast and with evening meal. Historical ProviderMD Active cephalexin (Keflex) 500 mg capsule [id number] Take 500 mg by mouth four times daily. FOR INFECTION FOR 10 DAYS(07/13 - 07/23) Historical ProviderMD Active docusate sodium (Colace) 100 mg capsule [id number] Take 100 mg by mouth two times daily. Historical ProviderMD Active famotidine (Pepcid) 20 mg tablet [id number] Take 1 tablet (20 mg) by mouth at bedtime. Jayjay Robin MD Active finasteride (Proscar) 5 mg tablet [id number] Take 1 tablet (5 mg) by mouth in the morning. Do not crush, chew, or split. Jayjay Robin MD Active folic acid (Folvite) 1 mg tablet [id number] Take 1 tablet (1 mg) by mouth in the morning for 94 doses. Grazyna Briseno CNP Active guaiFENesin (Mucinex) 600 mg 12 hr tablet [id number] Take 1,200 mg by mouth two times daily. Do not crush, chew, or split. Historical ProviderMD Active hydrALAZINE (Apresoline) 100 mg tablet [id number] Take 1 tablet (100 mg) by mouth three times daily. Wendy Lomeli MD Active ipratropium-albuteroL (Duo-Neb) 0.5-2.5 mg/3 mL nebulizer solution [id number] Take 3 mL by nebulization every 6 (six) hours if needed for wheezing or shortness of breath. Historical ProviderMD Active magnesium glycinate 100 mg magnesium capsule [id number] Take 3 capsules (300 mg) by mouth three timesdaily. Jayjay Robin MD Active NIFEdipine XL (Procardia XL) 30 mg 24 hr tablet [id number] Take 1 tablet (30 mg) by mouth in the morning. Do not crush, chew, or split. Jayjay Robin MD Active nystatin (Mycostatin) 100,000 unit/mL suspension [id number] Take 5 mL (500,000 Units) by mouth four times daily. Swish and swallow Wendy Lomeli MD Active ondansetron (Zofran) 4 mg tablet [id number] Take 4 mg by mouth every 4 (four) hours if needed for nausea or vomiting. Historical ProviderMD Active pantoprazole (ProtoNix) 40 mg EC tablet [id number] Take 1 tablet (40 mg) by mouth before breakfast. Do not crush, chew, or split. Delano Klein MD Active predniSONE (Deltasone) 10 mg tablet [id number] Take 1 tablet (10 mg) by mouth in the morning. Jayjay Robin MD Active sod phos di, mono-K phos mono (K Phos Neutral) tablet [id number] Take 1 tablet by mouth two times daily. Jayjay Robin MD Active sulfamethoxazole-trimethoprim (Bactrim DS) 800-160 mg tablet [id number] Take 1 tablet by mouth 3 (three) times a week. On Wednesday, Wednesday, and Wednesday Wendy Lomeli MD Active tacrolimus ER (Envarsus XR) 4 mg tablet ER [id number] Take 1 tablet (4 mg) by mouth in the morning. Script total 8.5 mg daily Patient taking differently: Take 4 mg by mouth in the morning. 4 mg daily Wendy Lomeli MD Active tamsulosin (Flomax) 0.4 mg 24 hr capsule [id number] Take 2 capsules (0.8 mg) by mouth in the morning.Jayjay Robin MD Active valGANciclovir (Valcyte) 450 mg tablet [id number] Take 1 tablet (450 mg) by mouth in the morning. As directed. Wendy Lomeli MD Active vancomycin (Vancocin) 125 mg capsule [id number] Take 125 mg by mouth 2 times [...] Tez Garcia MD Internal Medicine Resident, PGY-3 [facility] Cosigned by Wendy Lomeli MD at [...] discharge to rehab Jamison Guaman MD Ascom [phone] Cosigned by Jayjay Robin MD at 07/21/2025 [...] recent ischemic stroke (04/2025) who presented to [facility] due to concern for infection in an immunocompromised patient. He is Covid-19 positive and positive for C Diff. Patient has not been eating or drinking well. Notably, he was recently admitted to [facility] for a pseudomonas UTI from 05/29 [...] Dose Status acetaminophen (Tylenol) 325 mg tablet [id number] Take 650 mg by mouth every 6 (six) hours if needed for mild pain (1-3 pain score) or fever greater than or equal to 38 degrees Celsius. Historical Provider, Active azaTHIOprine (Imuran) 75 mg tablet [id number] No Take 1 tablet (75 mg) by mouth in the morning for 96doses. Patient not taking: Reported on 07/13/2025 Grazyna Briseno CNP Not Taking Active calcium carbonate (Tums) 200 mg calcium (500 mg) chewable tablet [id number] Chew 3 tablets (1,500 mg)two times daily. Without food Patient taking differently: Chew 2 tablets two times daily. Without food Jayjay Robin MD Active calcium carbonate-vitamin D3 500 mg-5 mcg (200 unit) tablet [id number] Take 2 tablets by mouth two times daily. Patient taking differently: Take 1 tablet by mouth at bedtime. Grazyna Briseno CNP Active carvedilol (Coreg) 25 mg tablet [id number] 25 mg with breakfast and with evening meal. Historical Provider, Active cephalexin (Keflex) 500 mg capsule [id number] Take 500 mg by mouth four times daily. FOR INFECTION FOR 10 DAYS(07/13 - 07/23) Cristal Vazquez MD Active docusate sodium (Colace) 100 mg capsule [id number] Take 100 mg by mouth two times daily. Cristal Vazquez MD Active famotidine (Pepcid) 20 mg tablet [id number] Take 1 tablet (20 mg) by mouth at bedtime. Jayjay Robin MD Active finasteride (Proscar) 5 mg tablet [id number] Take 1 tablet (5 mg) by mouth in the morning. Do not crush, chew, or split. Jayjay Robin MD Active folic acid (Folvite) 1 mg tablet [id number] Take 1 tablet (1 mg) by mouth in the morning for 94 doses. Grazyna Briseno CNP Active guaiFENesin (Mucinex) 600 mg 12 hr tablet [id number] Take 1,200 mg by mouth two times daily. Do not crush, chew, or split. Cristal Vazquez MD Active hydrALAZINE (Apresoline) 100 mg tablet [id number] Take 1 tablet (100 mg) by mouth three times daily. Wendy Lomeli MD Active ipratropium-albuteroL (Duo-Neb) 0.5-2.5 mg/3 mL nebulizer solution [id number] Take 3 mL by nebulization every 6 (six) hours if needed for wheezing or shortness of breath. Cristal Vazquez MD Active magnesium glycinate 100 mg magnesium capsule [id number] Take 3 capsules (300 mg) by mouth three timesdaily. Jayjay Robin MD Active NIFEdipine XL (Procardia XL) 30 mg 24 hr tablet [id number] Take 1 tablet (30 mg) by mouth in the morning. Do not crush, chew, or split. Jayjay Robin MD Active nystatin (Mycostatin) 100,000 unit/mL suspension [id number] Take 5 mL (500,000 Units) by mouth four times daily. Swish and swallow Wendy Lomeli MD Active ondansetron (Zofran) 4 mg tablet [id number] Take 4 mg by mouth every 4 (four) hours if needed for nausea or vomiting. Cristal Vazquez MD Active pantoprazole (ProtoNix) 40 mg EC tablet [id number] Take 1 tablet (40 mg) by mouth before breakfast. Do not crush, chew, or split. Delano Klein MD Active predniSONE (Deltasone) 10 mg tablet [id number] Take 1 tablet (10 mg) by mouth in the morning. Jayjay Robin MD Active sod phos di, mono-K phos mono (K Phos Neutral) tablet [id number] Take 1 tablet by mouth two times daily. Jayjay Robin MD Active sulfamethoxazole-trimethoprim (Bactrim DS) 800-160 mg tablet [id number] Take 1 tablet by mouth 3 (three) times a week. On Wednesday, Wednesday, and Wednesday Wendy Lomeli MD Active tacrolimus ER (Envarsus XR) 4 mg tablet ER [id number] Take 1 tablet (4 mg) by mouth in the morning. Script total 8.5 mg daily Patient taking differently: Take 4 mg by mouth in the morning. 4 mg daily Wendy Lomeli MD Active tamsulosin (Flomax) 0.4 mg 24 hr capsule [id number] Take 2 capsules (0.8 mg) by mouth in the morning.Jayjay Robin MD Active valGANciclovir (Valcyte) 450 mg tablet [id number] Take 1 tablet (450 mg) by mouth in the morning. As directed. Wendy Lomeli MD Active vancomycin (Vancocin) 125 mg capsule [id number] Take 125 mg by mouth 2 times [...] Tez Garcia MD Internal Medicine Resident, PGY-3 [facility] Cosigned by Wendy Lomeli MD at [...] progress note was completed using a voice munitions worker system. Every effort was made to ensure accuracy; however, inadvertent computerized munitions worker errors may be present. Thank you for allowing us to participate in the care of this patient. Our consultation addresses complex antimicrobial therapy counseling and treatment Jonny Merino MD [facility] Please contact us via [employer] chat during business hours. If no response in 15 min, call / page through the heavy rail train operator Cosigned by Philip Jones MD at 07/21/2025 [...] is currently running a fever , when va underwriter went in the room to talk to pt about whathe may want to do with therapy if anything , pt informed va underwriter that he was not feeling well and did not want to do anything . Project Coach empathized with him and told him she understood because his nursehad informed va underwriter that he was running a fever today degrees . Project Coach told pt she hoped he felt better [...] recent ischemic stroke (04/2025) who presented to [facility] due to concern for infection in an immunocompromised patient. He is Covid-19 positive and positive for C Diff. Patient has not been eating or drinking well. Notably, he was recently admitted to [facility] for a pseudomonas UTI from 05/29 [...] Dose Status acetaminophen (Tylenol) 325 mg tablet [id number] Take 650 mg by mouth every 6 (six) hours if needed for mild pain (1-3 pain score) or fever greater than or equal to 38 degrees Celsius. Historical ProviderMD Active azaTHIOprine (Imuran) 75 mg tablet [id number] No Take 1 tablet (75 mg) by mouth in the morning for 96doses. Patient not taking: Reported on 07/13/2025 Grazyna Briseno CNP Not Taking Active calcium carbonate (Tums) 200 mg calcium (500 mg) chewable tablet [id number] Chew 3 tablets (1,500 mg)two times daily. Without food Patient taking differently: Chew 2 tablets two times daily. Without food Jayjay Robin MD Active calcium carbonate-vitamin D3 500 mg-5 mcg (200 unit) tablet [id number] Take 2 tablets by mouth two times daily. Patient taking differently: Take 1 tablet by mouth at bedtime. Grazyna Briseno CNP Active carvedilol (Coreg) 25 mg tablet [id number] 25 mg with breakfast and with evening meal. Historical ProviderMD Active cephalexin (Keflex) 500 mg capsule [id number] Take 500 mg by mouth four times daily. FOR INFECTION FOR 10 DAYS(07/13 - 07/23) Historical ProviderMD Active docusate sodium (Colace) 100 mg capsule [id number] Take 100 mg by mouth two times daily. Historical ProviderMD Active famotidine (Pepcid) 20 mg tablet [id number] Take 1 tablet (20 mg) by mouth at bedtime. Jayjay Robin MD Active finasteride (Proscar) 5 mg tablet [id number] Take 1 tablet (5 mg) by mouth in the morning. Do not crush, chew, or split. Jayjay Robin MD Active folic acid (Folvite) 1 mg tablet [id number] Take 1 tablet (1 mg) by mouth in the morning for 94 doses. Grazyna Briseno CNP Active guaiFENesin (Mucinex) 600 mg 12 hr tablet [id number] Take 1,200 mg by mouth two times daily. Do not crush, chew, or split. Cristal Vazquez MD Active hydrALAZINE (Apresoline) 100 mg tablet [id number] Take 1 tablet (100 mg) by mouth three times daily. Wendy Lomeli MD Active ipratropium-albuteroL (Duo-Neb) 0.5-2.5 mg/3 mL nebulizer solution [id number] Take 3 mL by nebulization every 6 (six) hours if needed for wheezing or shortness of breath. Cristal Vazquez MD Active magnesium glycinate 100 mg magnesium capsule [id number] Take 3 capsules (300 mg) by mouth three timesdaily. Jayjay Robin MD Active NIFEdipine XL (Procardia XL) 30 mg 24 hr tablet [id number] Take 1 tablet (30 mg) by mouth in the morning. Do not crush, chew, or split. Jayjay Robin MD Active nystatin (Mycostatin) 100,000 unit/mL suspension [id number] Take 5 mL (500,000 Units) by mouth four times daily. Swish and swallow Wendy Lomeli MD Active ondansetron (Zofran) 4 mg tablet [id number] Take 4 mg by mouth every 4 (four) hours if needed for nausea or vomiting. Cristal Vazquez MD Active pantoprazole (ProtoNix) 40 mg EC tablet [id number] Take 1 tablet (40 mg) by mouth before breakfast. Do not crush, chew, or split. Delano Klein MD Active predniSONE (Deltasone) 10 mg tablet [id number] Take 1 tablet (10 mg) by mouth in the morning. Jayjay Robin MD Active sod phos di, mono-K phos mono (K Phos Neutral) tablet [id number] Take 1 tablet by mouth two times daily. Jayjay Robin MD Active sulfamethoxazole-trimethoprim (Bactrim DS) 800-160 mg tablet [id number] Take 1 tablet by mouth 3 (three) times a week. On Wednesday, Wednesday, and Wednesday Wendy Lomeli MD Active tacrolimus ER (Envarsus XR) 4 mg tablet ER [id number] Take 1 tablet (4 mg) by mouth in the morning. Script total 8.5 mg daily Patient taking differently: Take 4 mg by mouth in the morning. 4 mg daily Wendy Lomeli MD Active tamsulosin (Flomax) 0.4 mg 24 hr capsule [id number] Take 2 capsules (0.8 mg) by mouth in the morning.Jayjay Robin MD Active valGANciclovir (Valcyte) 450 mg tablet [id number] Take 1 tablet (450 mg) by mouth in the morning. As directed. Wendy Lomeli MD Active vancomycin (Vancocin) 125 mg capsule [id number] Take 125 mg by mouth 2 times [...] with you. Lenin Raymond, MS4 Medical Student [facility] As the teaching physician, I have personally performed or re-performed the history of present illness, physical exam and medical decision-making activities of the encounter and verified the medical student's documentation. I made pertinent changes as necessary to ensure accurate documentation. Wendy Lomeli MD Faculty, Division of Nephrology, Department of Medicine, [employer]. * YAMILKA Elder - 07/20/2025 9:20 AM EST Discharge Planning [facility] received insurance auth approval for admission [...] progress note was completed using a voice munitions worker system. Every effort was made to ensure accuracy; however, inadvertent computerized munitions worker errors may be present. Thank you for allowing us to participate in the care of this patient. Our consultation addresses complex antimicrobial therapy counseling and treatment Belen Fabian CNP [facility] Please contact us via [email or web address] during business hours. If no response in 15 min, call / page through the heavy rail train operator * Raegan Allison MD - 07/20/2025 7:01 [...] discharge to rehab Raegan Allison MD Ascom [phone] Cosigned by Jayjay Robin MD at 07/20/2025 [...] progress note was completed using a voice munitions worker system. Every effort was made to ensure accuracy; however, inadvertent computerized munitions worker errors may be present. Thank you for allowing us to participate in the care of this patient. Our consultation addresses complex antimicrobial therapy counseling and treatment Belen Fabian CNP [facility] Please contact us via [employer] chat during business hours. If no response in 15 min, call / page through the heavy rail train operator * Anthony Stern MD - 07/19/2025 1:29 [...] recent ischemic stroke (04/2025) who presented to [facility] due to concern for infection in an immunocompromised patient. He is Covid-19 positive and positive for C Diff. Patient has not been eating or drinking well. Notably, he was recently admitted to [facility] for a pseudomonas UTI from 05/29 [...] Dose Status acetaminophen (Tylenol) 325 mg tablet [id number] Take 650 mg by mouth every 6 (six) hours if needed for mild pain (1-3 pain score) or fever greater than or equal to 38 degrees Celsius. Historical Provider, Active azaTHIOprine (Imuran) 75 mg tablet [id number] No Take 1 tablet (75 mg) by mouth in the morning for 96doses. Patient not taking: Reported on 07/13/2025 Grazyna Briseno CNP Not Taking Active calcium carbonate (Tums) 200 mg calcium (500 mg) chewable tablet [id number] Chew 3 tablets (1,500 mg)two times daily. Without food Patient taking differently: Chew 2 tablets two times daily. Without food Jayjay Robin MD Active calcium carbonate-vitamin D3 500 mg-5 mcg (200 unit) tablet [id number] Take 2 tablets by mouth two times daily. Patient taking differently: Take 1 tablet by mouth at bedtime. Grazyna Briseno CNP Active carvedilol (Coreg) 25 mg tablet [id number] 25 mg with breakfast and with evening meal. Cristal Vazquez MD Active cephalexin (Keflex) 500 mg capsule [id number] Take 500 mg by mouth four times daily. FOR INFECTION FOR 10 DAYS(07/13 - 07/23) Cristal Vazquez MD Active docusate sodium (Colace) 100 mg capsule [id number] Take 100 mg by mouth two times daily. Cristal ProviderMD Active famotidine (Pepcid) 20 mg tablet [id number] Take 1 tablet (20 mg) by mouth at bedtime. Jayjay Robin MD Active finasteride (Proscar) 5 mg tablet [id number] Take 1 tablet (5 mg) by mouth in the morning. Do not crush, chew, or split. Jayjay Robin MD Active folic acid (Folvite) 1 mg tablet [id number] Take 1 tablet (1 mg) by mouth in the morning for 94 doses. Grazyna Briseno CNP Active guaiFENesin (Mucinex) 600 mg 12 hr tablet [id number] Take 1,200 mg by mouth two times daily. Do not crush, chew, or split. Cristal Vazquez MD Active hydrALAZINE (Apresoline) 100 mg tablet [id number] Take 1 tablet (100 mg) by mouth three times daily. Wendy Lomeli MD Active ipratropium-albuteroL (Duo-Neb) 0.5-2.5 mg/3 mL nebulizer solution [id number] Take 3 mL by nebulization every 6 (six) hours if needed for wheezing or shortness of breath. Cristal Vazquez MD Active magnesium glycinate 100 mg magnesium capsule [id number] Take 3 capsules (300 mg) by mouth three timesdaily. Jayjay Robin MD Active NIFEdipine XL (Procardia XL) 30 mg 24 hr tablet [id number] Take 1 tablet (30 mg) by mouth in the morning. Do not crush, chew, or split. Jayjay Robin MD Active nystatin (Mycostatin) 100,000 unit/mL suspension [id number] Take 5 mL (500,000 Units) by mouth four times daily. Swish and swallow Wendy Lomeli MD Active ondansetron (Zofran) 4 mg tablet [id number] Take 4 mg by mouth every 4 (four) hours if needed for nausea or vomiting. Historical ProviderMD Active pantoprazole (ProtoNix) 40 mg EC tablet [id number] Take 1 tablet (40 mg) by mouth before breakfast. Do not crush, chew, or split. Delano Klein MD Active predniSONE (Deltasone) 10 mg tablet [id number] Take 1 tablet (10 mg) by mouth in the morning. Jayjay Robin MD Active sod phos di, mono-K phos mono (K Phos Neutral) tablet [id number] Take 1 tablet by mouth two times daily. Jayjay Robin MD Active sulfamethoxazole-trimethoprim (Bactrim DS) 800-160 mg tablet [id number] Take 1 tablet by mouth 3 (three) times a week. On Wednesday, Wednesday, and Wednesday Wendy Lomeli MD Active tacrolimus ER (Envarsus XR) 4 mg tablet ER [id number] Take 1 tablet (4 mg) by mouth in the morning. Script total 8.5 mg daily Patient taking differently: Take 4 mg by mouth in the morning. 4 mg daily Wendy Lomeli MD Active tamsulosin (Flomax) 0.4 mg 24 hr capsule [id number] Take 2 capsules (0.8 mg) by mouth in the morning.Jayjay Robin MD Active valGANciclovir (Valcyte) 450 mg tablet [id number] Take 1 tablet (450 mg) by mouth in the morning. As directed. Wendy Lomeli MD Active vancomycin (Vancocin) 125 mg capsule [id number] Take 125 mg by mouth 2 times [...] Stern MD, PhD Internal Medicine Resident, PGY-3 [facility] Cosigned by Wendy Lomeli MD at 07/19/2025 [...] 3 Eating meals? 4 Total Score OT [facility] 17 OT Goals: Multi-Disciplinary Problems (from [...] stage 5, GFR less than 15 ml/min ([facility]) Lung nodule seen on imaging study H/O splenectomy Kidney replaced by transplant GI bleed Diverticulitis Encounter for aftercare following kidney transplant Immunosuppression Benign prostatic hyperplasia with urinary retention Hypophosphatemia Bilateral lower extremity edema Hypocalcemia Hypomagnesemia Diarrhea Immunosuppressive management encounter following kidney transplant Hypoalbuminemia Suspected stroke patient last known to be well more than 2 hours ago Cerebrovascular accident (CVA) ([facility]) BPH with obstruction/lower urinary tract symptoms BPH [...] precert is completed Grazyna Briseno CNP Ascom [phone] * Sera Pettit PTA - 07/18/2025 4:30 PM EST Physical Therapy Physical Therapy Treatment Patient Name: Christal Suh : 1955 Today's Date: 07/18/2025 Problem List[1] Time : 16:00-16:28 07/18/25 1630 PT Last Visit PT Received On 07/18/25 General Subjective Pt has been cleared medically by nursing staff , upon va underwriter entering the room pt was supine in the bed awake . Pt seemed to be tired of being sick , told va underwriter he has been sick since april 2025 this year. Project Coach told pt she was sorry for what [...] light available to pt PT Assessment PT Assessment/[employer] Summary pt participated with therapy Plan Treatment/Interventions [...] stage 5, GFR less than 15 ml/min ([facility]) Lung nodule seen on imaging study H/O splenectomy Kidney replaced by transplant GI bleed Diverticulitis Encounter for aftercare following kidney transplant Immunosuppression Benign prostatic hyperplasia with urinary retention Hypophosphatemia Bilateral lower extremity edema Hypocalcemia Hypomagnesemia Diarrhea Immunosuppressive management encounter following kidney transplant Hypoalbuminemia Suspected stroke patient last known to be well more than 2 hours ago Cerebrovascular accident (CVA) ([facility]) BPH with obstruction/lower urinary tract symptoms BPH with urinary obstruction Urinary retention Gastroesophageal reflux disease without esophagitis S/P TURP Leucocytosis UTI (urinary tract infection) Transplant recipient S/P kidney transplant Cosigned by Elba Schuler, PT at 07/27/2025 8:17 AM EST * Anthony tSern MD - 07/18/2025 12:42 PM EST Images [...] recent ischemic stroke (04/2025) who presented to [facility] due to concern for infection in an immunocompromised patient. He is Covid-19 positive and positive for C Diff. Patient has not been eating or drinking well. Notably, he was recently admitted to [facility] for a pseudomonas UTI from 05/29 [...] Dose Status acetaminophen (Tylenol) 325 mg tablet [id number] Take 650 mg by mouth every 6 (six) hours if needed for mild pain (1-3 pain score) or fever greater than or equal to 38 degrees Celsius. Historical ProviderMD Active azaTHIOprine (Imuran) 75 mg tablet [id number] No Take 1 tablet (75 mg) by mouth in the morning for 96doses. Patient not taking: Reported on 07/13/2025 Grazyna Briseno CNP Not Taking Active calcium carbonate (Tums) 200 mg calcium (500 mg) chewable tablet [id number] Chew 3 tablets (1,500 mg)two times daily. Without food Patient taking differently: Chew 2 tablets two times daily. Without food Jayjay Robin MD Active calcium carbonate-vitamin D3 500 mg-5 mcg (200 unit) tablet [id number] Take 2 tablets by mouth two times daily. Patient taking differently: Take 1 tablet by mouth at bedtime. Grazyna Briseno CNP Active carvedilol (Coreg) 25 mg tablet [id number] 25 mg with breakfast and with evening meal. Historical ProviderMD Active cephalexin (Keflex) 500 mg capsule [id number] Take 500 mg by mouth four times daily. FOR INFECTION FOR 10 DAYS(07/13 - 07/23) Historical ProviderMD Active docusate sodium (Colace) 100 mg capsule [id number] Take 100 mg by mouth two times daily. Historical ProviderMD Active famotidine (Pepcid) 20 mg tablet [id number] Take 1 tablet (20 mg) by mouth at bedtime. Jayjay Robin MD Active finasteride (Proscar) 5 mg tablet [id number] Take 1 tablet (5 mg) by mouth in the morning. Do not crush, chew, or split. Jayjay Robin MD Active folic acid (Folvite) 1 mg tablet [id number] Take 1 tablet (1 mg) by mouth in the morning for 94 doses. Grazyna Briseno CNP Active guaiFENesin (Mucinex) 600 mg 12 hr tablet [id number] Take 1,200 mg by mouth two times daily. Do not crush, chew, or split. Historical ProviderMD Active hydrALAZINE (Apresoline) 100 mg tablet [id number] Take 1 tablet (100 mg) by mouth three times daily. Wendy Lomeli MD Active ipratropium-albuteroL (Duo-Neb) 0.5-2.5 mg/3 mL nebulizer solution [id number] Take 3 mL by nebulization every 6 (six) hours if needed for wheezing or shortness of breath. Historical ProviderMD Active magnesium glycinate 100 mg magnesium capsule [id number] Take 3 capsules (300 mg) by mouth three timesdaily. Jayjay Robin MD Active NIFEdipine XL (Procardia XL) 30 mg 24 hr tablet [id number] Take 1 tablet (30 mg) by mouth in the morning. Do not crush, chew, or split. Jayjay Robin MD Active nystatin (Mycostatin) 100,000 unit/mL suspension [id number] Take 5 mL (500,000 Units) by mouth four times daily. Swish and swallow Wendy Lomeli MD Active ondansetron (Zofran) 4 mg tablet [id number] Take 4 mg by mouth every 4 (four) hours if needed for nausea or vomiting. Historical ProviderMD Active pantoprazole (ProtoNix) 40 mg EC tablet [id number] Take 1 tablet (40 mg) by mouth before breakfast. Do not crush, chew, or split. Delano Klein MD Active predniSONE (Deltasone) 10 mg tablet [id number] Take 1 tablet (10 mg) by mouth in the morning. Jayjay Robin MD Active sod phos di, mono-K phos mono (K Phos Neutral) tablet [id number] Take 1 tablet by mouth two times daily. Jayjay Robin MD Active sulfamethoxazole-trimethoprim (Bactrim DS) 800-160 mg tablet [id number] Take 1 tablet by mouth 3 (three) times a week. On Wednesday, Wednesday, and Wednesday Wendy Lomeli MD Active tacrolimus ER (Envarsus XR) 4 mg tablet ER [id number] Take 1 tablet (4 mg) by mouth in the morning. Script total 8.5 mg daily Patient taking differently: Take 4 mg by mouth in the morning. 4 mg daily Wendy Lomeli MD Active tamsulosin (Flomax) 0.4 mg 24 hr capsule [id number] Take 2 capsules (0.8 mg) by mouth in the morning.Jayjay Robin MD Active valGANciclovir (Valcyte) 450 mg tablet [id number] Take 1 tablet (450 mg) by mouth in the morning. As directed. Wendy Lomeli MD Active vancomycin (Vancocin) 125 mg capsule [id number] Take 125 mg by mouth 2 times [...] Stern MD, PhD Internal Medicine Resident, PGY-3 [facility] Cosigned by Wendy Lomeli MD at 07/18/2025 [...] 15 min, call / page through the heavy rail train operator Patient name: Christal Suh Patient Today's Date [...] progress note was completed using a voice munitions worker system. Every effort was made to ensure accuracy; however, inadvertent computerized munitions worker errors may be present. Thank you for allowing us to participate in the care of this patient. Belen Tai APRN, CNP [facility] Infectious Disease Message me via Wintegra secure chat * Grazyna Briseno CNP - [...] precert is completed Grazyna Briseno CNP Ascom [phone] * YAMILKA Elder - 07/18/2025 8:26 AM EST Discharge Planning Patient is medically ready fro discharge. Discharge plan is to return to [facility]. escrow secretary unable to submit for pre-cert as medical mutual requires it be submitted by facility. DANIE contacted [facility] and requested they submit. * YAMILKA Elder - 07/17/2025 4:10 PM EST Discharge Planning Patient is medically ready fro discharge. Patient is requesting to return to [facility]. [facility]. DANIE requested escrow secretary start pre-cert. * Anthony Stern MD [...] recent ischemic stroke (04/2025) who presented to [facility] due to concern for infection in an immunocompromised patient. He is Covid-19 positive and positive for C Diff. Patient has not been eating or drinking well. Notably, he was recently admitted to [facility] for a pseudomonas UTI from 05/29 [...] Dose Status acetaminophen (Tylenol) 325 mg tablet [id number] Take 650 mg by mouth every 6 (six) hours if needed for mild pain (1-3 pain score) or fever greater than or equal to 38 degrees Celsius. Cristal Vazquez MD Active azaTHIOprine (Imuran) 75 mg tablet [id number] No Take 1 tablet (75 mg) by mouth in the morning for 96doses. Patient not taking: Reported on 07/13/2025 Grazyna Briseno CNP Not Taking Active calcium carbonate (Tums) 200 mg calcium (500 mg) chewable tablet [id number] Chew 3 tablets (1,500 mg)two times daily. Without food Patient taking differently: Chew 2 tablets two times daily. Without food Jayjay Robin MD Active calcium carbonate-vitamin D3 500 mg-5 mcg (200 unit) tablet [id number] Take 2 tablets by mouth two times daily. Patient taking differently: Take 1 tablet by mouth at bedtime. Grazyna Briseno CNP Active carvedilol (Coreg) 25 mg tablet [id number] 25 mg with breakfast and with evening meal. Historical ProviderMD Active cephalexin (Keflex) 500 mg capsule [id number] Take 500 mg by mouth four times daily. FOR INFECTION FOR 10 DAYS(07/13 - 07/23) Historical ProviderMD Active docusate sodium (Colace) 100 mg capsule [id number] Take 100 mg by mouth two times daily. Historical ProviderMD Active famotidine (Pepcid) 20 mg tablet [id number] Take 1 tablet (20 mg) by mouth at bedtime. Jayjay Robin MD Active finasteride (Proscar) 5 mg tablet [id number] Take 1 tablet (5 mg) by mouth in the morning. Do not crush, chew, or split. Jayjay Robin MD Active folic acid (Folvite) 1 mg tablet [id number] Take 1 tablet (1 mg) by mouth in the morning for 94 doses. Grazyna Briseno CNP Active guaiFENesin (Mucinex) 600 mg 12 hr tablet [id number] Take 1,200 mg by mouth two times daily. Do not crush, chew, or split. Historical ProviderMD Active hydrALAZINE (Apresoline) 100 mg tablet [id number] Take 1 tablet (100 mg) by mouth three times daily. Wendy Lomeli MD Active ipratropium-albuteroL (Duo-Neb) 0.5-2.5 mg/3 mL nebulizer solution [id number] Take 3 mL by nebulization every 6 (six) hours if needed for wheezing or shortness of breath. Historical ProviderMD Active magnesium glycinate 100 mg magnesium capsule [id number] Take 3 capsules (300 mg) by mouth three timesdaily. Jayjay Robin MD Active NIFEdipine XL (Procardia XL) 30 mg 24 hr tablet [id number] Take 1 tablet (30 mg) by mouth in the morning. Do not crush, chew, or split. Jayjay Robin MD Active nystatin (Mycostatin) 100,000 unit/mL suspension [id number] Take 5 mL (500,000 Units) by mouth four times daily. Swish and swallow Wendy Lomeli MD Active ondansetron (Zofran) 4 mg tablet [id number] Take 4 mg by mouth every 4 (four) hours if needed for nausea or vomiting. Historical ProviderMD Active pantoprazole (ProtoNix) 40 mg EC tablet [id number] Take 1 tablet (40 mg) by mouth before breakfast. Do not crush, chew, or split. Delano Klein MD Active predniSONE (Deltasone) 10 mg tablet [id number] Take 1 tablet (10 mg) by mouth in the morning. Jayjay Robin MD Active sod phos di, mono-K phos mono (K Phos Neutral) tablet [id number] Take 1 tablet by mouth two times daily. Jayjay Robin MD Active sulfamethoxazole-trimethoprim (Bactrim DS) 800-160 mg tablet [id number] Take 1 tablet by mouth 3 (three) times a week. On Wednesday, Wednesday, and Wednesday Wendy Lomeli MD Active tacrolimus ER (Envarsus XR) 4 mg tablet ER [id number] Take 1 tablet (4 mg) by mouth in the morning. Script total 8.5 mg daily Patient taking differently: Take 4 mg by mouth in the morning. 4 mg daily Wendy Lomeli MD Active tamsulosin (Flomax) 0.4 mg 24 hr capsule [id number] Take 2 capsules (0.8 mg) by mouth in the morning.Jayjay Robin MD Active valGANciclovir (Valcyte) 450 mg tablet [id number] Take 1 tablet (450 mg) by mouth in the morning. As directed. 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 If no response in 15 min, call / page through the heavy rail train operator Patient name: Christal Suh Patient Today's Date [...] progress note was completed using a voice munitions worker system. Every effort was made to ensure accuracy; however, inadvertent computerized munitions worker errors may be present. Thank you for allowing us to participate in the care of this patient. Belen Tai APRN, CNP [facility] Infectious Disease Message me via Wintegra secure chat * Nile Cho RRT - [...] recent ischemic stroke (04/2025) who presented to [facility] due to concern for infection in an immunocompromised patient. He is Covid-19 positive and positive for C Diff. Patient has not been eating or drinking well. Notably, he was recently admitted to [facility] for a pseudomonas UTI from 05/29 [...] Dose Status acetaminophen (Tylenol) 325 mg tablet [id number] Take 650 mg by mouth every 6 (six) hours if needed for mild pain (1-3 pain score) or fever greater than or equal to 38 degrees Celsius. Historical Provider, Active azaTHIOprine (Imuran) 75 mg tablet [id number] No Take 1 tablet (75 mg) by mouth in the morning for 96doses. Patient not taking: Reported on 07/13/2025 Grazyna Briseno CNP Not Taking Active calcium carbonate (Tums) 200 mg calcium (500 mg) chewable tablet [id number] Chew 3 tablets (1,500 mg)two times daily. Without food Patient taking differently: Chew 2 tablets two times daily. Without food Jayjay Robin MD Active calcium carbonate-vitamin D3 500 mg-5 mcg (200 unit) tablet [id number] Take 2 tablets by mouth two times daily. Patient taking differently: Take 1 tablet by mouth at bedtime. Grazyna Briseno CNP Active carvedilol (Coreg) 25 mg tablet [id number] 25 mg with breakfast and with evening meal. Historical ProviderMD Active cephalexin (Keflex) 500 mg capsule [id number] Take 500 mg by mouth four times daily. FOR INFECTION FOR 10 DAYS(07/13 - 07/23) Cristal Vazquez MD Active docusate sodium (Colace) 100 mg capsule [id number] Take 100 mg by mouth two times daily. Historical ProviderMD Active famotidine (Pepcid) 20 mg tablet [id number] Take 1 tablet (20 mg) by mouth at bedtime. Jayjay Robin MD Active finasteride (Proscar) 5 mg tablet [id number] Take 1 tablet (5 mg) by mouth in the morning. Do not crush, chew, or split. Jayjay Robin MD Active folic acid (Folvite) 1 mg tablet [id number] Take 1 tablet (1 mg) by mouth in the morning for 94 doses. Grazyna Briseno CNP Active guaiFENesin (Mucinex) 600 mg 12 hr tablet [id number] Take 1,200 mg by mouth two times daily. Do not crush, chew, or split. Cristal Vazquez MD Active hydrALAZINE (Apresoline) 100 mg tablet [id number] Take 1 tablet (100 mg) by mouth three times daily. Wendy Lomeli MD Active ipratropium-albuteroL (Duo-Neb) 0.5-2.5 mg/3 mL nebulizer solution [id number] Take 3 mL by nebulization every 6 (six) hours if needed for wheezing or shortness of breath. Cristal Vazquez MD Active magnesium glycinate 100 mg magnesium capsule [id number] Take 3 capsules (300 mg) by mouth three timesdaily. Jayjay Robin MD Active NIFEdipine XL (Procardia XL) 30 mg 24 hr tablet [id number] Take 1 tablet (30 mg) by mouth in the morning. Do not crush, chew, or split. Jayjay Robin MD Active nystatin (Mycostatin) 100,000 unit/mL suspension [id number] Take 5 mL (500,000 Units) by mouth four times daily. Swish and swallow Wendy Lomeli MD Active ondansetron (Zofran) 4 mg tablet [id number] Take 4 mg by mouth every 4 (four) hours if needed for nausea or vomiting. Historical ProviderMD Active pantoprazole (ProtoNix) 40 mg EC tablet [id number] Take 1 tablet (40 mg) by mouth before breakfast. Do not crush, chew, or split. Delano Klein MD Active predniSONE (Deltasone) 10 mg tablet [id number] Take 1 tablet (10 mg) by mouth in the morning. Jayjay Robin MD Active sod phos di, mono-K phos mono (K Phos Neutral) tablet [id number] Take 1 tablet by mouth two times daily. Jayjay Robin MD Active sulfamethoxazole-trimethoprim (Bactrim DS) 800-160 mg tablet [id number] Take 1 tablet by mouth 3 (three) times a week. On Wednesday, Wednesday, and Wednesday Wendy Lomeli MD Active tacrolimus ER (Envarsus XR) 4 mg tablet ER [id number] Take 1 tablet (4 mg) by mouth in the morning. Script total 8.5 mg daily Patient taking differently: Take 4 mg by mouth in the morning. 4 mg daily Wendy Lomeli MD Active tamsulosin (Flomax) 0.4 mg 24 hr capsule [id number] Take 2 capsules (0.8 mg) by mouth in the morning.Jayjay Robin MD Active valGANciclovir (Valcyte) 450 mg tablet [id number] Take 1 tablet (450 mg) by mouth in the morning. As directed. Wendy Lomeli MD Active vancomycin (Vancocin) 125 mg capsule [id number] Take 125 mg by mouth 2 times [...] Stern MD, PhD Internal Medicine Resident, PGY-3 [facility] Cosigned by Wendy Lomeli MD at 07/16/2025 [...] is a 69 y/o male admitted from [facility] for failure to thrive. Pt had recent [...] Home Living Home Living Type of Home: [facility] facility (Presents from SNF, was last home IND prior to April of this year) Home Living Comments: Prior to hospitalizations/SNF stays, pt was living with sister in a house perchart review. 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 Summary: Pt demo deficits with activity tolerance, [...] stage 5, GFR less than 15 ml/min ([facility]/HCC) Lung nodule seen on imaging study [...] stage 5, GFR less than 15 ml/min ([facility]/HCC) Diverticular disease s/p colectomy 2015 Gout History of DVT (deep vein thrombosis) proximal vein left leg (from distal calf to groin, 07/2021, was to be on lifelong warfarin but stopped after 05/2022 GI bleed) Hypertensive disorder Lung nodule seen on imaging study NSAID long-term use h/o Proteinuria Recurrent sinusitis Recurrent sinusitis Renal cyst, left Secondary hyperparathyroidism of renal origin Stroke ([facility]) Vitamin D deficiency [3] Past Surgical History: [...] Home Living Home Living Type of Home: [facility] facility (Presnts from SNF - last known time home prior to 04/2025) Prior Level of Function Prior Function Level of [place]: Needs assistance with ADLs Prior Functional Mobility: [...] upper extremity supported, Left upper extremity supported (LUBRICATING SPECIALIST x2) Static Standing-Level of Assistance: Minimum assistance [...] to sit (From EOB) Transfer Device 1: (LUBRICATING SPECIALIST x2) Transfer Level of Assistance 1: Moderate [...] progress note was completed using a voice munitions worker system. Every effort was made to ensure accuracy; however, inadvertent computerized munitions worker errors may be present. Thank you for allowing us to participate in the care of this patient. Our consultation addresses complex antimicrobial therapy counseling and treatment Jonny Merino MD [facility] Infectious Diseases Please contact us via Epic chat during business hours. If no response in 15 min, call / page through the heavy rail train operator Cosigned by Philip Jones MD at 07/16/2025 [...] recent ischemic stroke (04/2025) who presented to [facility] due to concern for infection in an immunocompromised patient. He is Covid-19 positive and positive for C Diff. Patient has not been eating or drinking well. Notably, he was recently admitted to [facility] for a pseudomonas UTI from 05/29 [...] Dose Status acetaminophen (Tylenol) 325 mg tablet [id number] Take 650 mg by mouth every 6 (six) hours if needed for mild pain (1-3 pain score) or fever greater than or equal to 38 degrees Celsius. Historical ProviderMD Active azaTHIOprine (Imuran) 75 mg tablet [id number] No Take 1 tablet (75 mg) by mouth in the morning for 96doses. Patient not taking: Reported on 07/13/2025 Grazyna Briseno CNP Not Taking Active calcium carbonate (Tums) 200 mg calcium (500 mg) chewable tablet [id number] Chew 3 tablets (1,500 mg)two times daily. Without food Patient taking differently: Chew 2 tablets two times daily. Without food Jayjay Robin MD Active calcium carbonate-vitamin D3 500 mg-5 mcg (200 unit) tablet [id number] Take 2 tablets by mouth two times daily. Patient taking differently: Take 1 tablet by mouth at bedtime. Grazyna Briseno CNP Active carvedilol (Coreg) 25 mg tablet [id number] 25 mg with breakfast and with evening meal. Historical ProviderMD Active cephalexin (Keflex) 500 mg capsule [id number] Take 500 mg by mouth four times daily. FOR INFECTION FOR 10 DAYS(07/13 - 07/23) Historical ProviderMD Active docusate sodium (Colace) 100 mg capsule [id number] Take 100 mg by mouth two times daily. Historical ProviderMD Active famotidine (Pepcid) 20 mg tablet [id number] Take 1 tablet (20 mg) by mouth at bedtime. Jayjay Robin MD Active finasteride (Proscar) 5 mg tablet [id number] Take 1 tablet (5 mg) by mouth in the morning. Do not crush, chew, or split. Jayjay Robin MD Active folic acid (Folvite) 1 mg tablet [id number] Take 1 tablet (1 mg) by mouth in the morning for 94 doses. Grazyna rBiseno CNP Active guaiFENesin (Mucinex) 600 mg 12 hr tablet [id number] Take 1,200 mg by mouth two times daily. Do not crush, chew, or split. Cristal Vazquez MD Active hydrALAZINE (Apresoline) 100 mg tablet [id number] Take 1 tablet (100 mg) by mouth three times daily. Wendy Lomeli MD Active ipratropium-albuteroL (Duo-Neb) 0.5-2.5 mg/3 mL nebulizer solution [id number] Take 3 mL by nebulization every 6 (six) hours if needed for wheezing or shortness of breath. Cristal Vazquez MD Active magnesium glycinate 100 mg magnesium capsule [id number] Take 3 capsules (300 mg) by mouth three timesdaily. Jayjay Robin MD Active NIFEdipine XL (Procardia XL) 30 mg 24 hr tablet [id number] Take 1 tablet (30 mg) by mouth in the morning. Do not crush, chew, or split. Jayjay Robin MD Active nystatin (Mycostatin) 100,000 unit/mL suspension [id number] Take 5 mL (500,000 Units) by mouth four times daily. Swish and swallow Wendy Lomeli MD Active ondansetron (Zofran) 4 mg tablet [id number] Take 4 mg by mouth every 4 (four) hours if needed for nausea or vomiting. Cristal Vazquez MD Active pantoprazole (ProtoNix) 40 mg EC tablet [id number] Take 1 tablet (40 mg) by mouth before breakfast. Do not crush, chew, or split. Delano Klein MD Active predniSONE (Deltasone) 10 mg tablet [id number] Take 1 tablet (10 mg) by mouth in the morning. Jayjay Robin MD Active sod phos di, mono-K phos mono (K Phos Neutral) tablet [id number] Take 1 tablet by mouth two times daily. Jayjay Robin MD Active sulfamethoxazole-trimethoprim (Bactrim DS) 800-160 mg tablet [id number] Take 1 tablet by mouth 3 (three) times a week. On Wednesday, Wednesday, and Wednesday Wendy Lomeli MD Active tacrolimus ER (Envarsus XR) 4 mg tablet ER [id number] Take 1 tablet (4 mg) by mouth in the morning. Script total 8.5 mg daily Patient taking differently: Take 4 mg by mouth in the morning. 4 mg daily Wendy Lomeli MD Active tamsulosin (Flomax) 0.4 mg 24 hr capsule [id number] Take 2 capsules (0.8 mg) by mouth in the morning.Jayjay Robin MD Active valGANciclovir (Valcyte) 450 mg tablet [id number] Take 1 tablet (450 mg) by mouth in the morning. As directed. Wendy Lomeli MD Active vancomycin (Vancocin) 125 mg capsule [id number] Take 125 mg by mouth 2 times [...] for: [facility]PC[facility] Radiology: Cardiac event monitor [facility] Heart Station [address] [place] [address] (fax) Event Recorder-[facility] Name: CHRISTAL SUH Study Date: 05/02/2025 10:01 AM Date of : 1955 Location: [facility] Height: Age: 69 year(s) Patient Room: [...] 21:47 day 7 Procedure Staff Reading Group: [facility] Ordering Physician: SERA SHIN Coil Rewind Machine Operator: Edna Askew Assessment: ESRD s/p DDRT (03/31/2025) [...] Faculty, Division of Nephrology, Department of Medicine [facility]. * Elizabeth Washington, LEIGH [...] (05/29/25), pt refused skin assessment today per documentation writer Edema: BUE +1, RLE +2, LLE nonpitting [...] severe Nutrition Assessment: Pt has been at [facility] since 06/15/25. He c/o food & [...] actual body weight (77.6 kg) Calorie needs: [phone] kcals/day based on 25-30 kcal/kg Protein needs: [...] To reach the Clinical Dietitian, please utilize Marqeta chat Wednesday-Wednesday from 8AM-4PM or call extension [phone]. For weekends (Wednesday-Wednesday) and holidays, the Clinical Dietitian can be reached via pager ([phone]) from 9AM-3PM. The Clinical Nutrition Department is unable to respond to Marqeta chat messages on Sundays and hols. [1] Past Medical History: Diagnosis Date Anemia in chronic kidney disease (CKD) CKD (chronic kidney disease) stage 5, GFR less than 15 ml/min ([facility]/HCC) Diverticular disease s/p colectomy 2015 Gout History of DVT (deep vein thrombosis) proximal vein left leg (from distal calf to groin, 07/2021, was to be on lifelong warfarin but stopped after 05/2022 GI bleed) Hypertensive disorder Lung nodule seen on imaging study NSAID long-term use h/o Proteinuria Recurrent sinusitis Recurrent sinusitis Renal cyst, left Secondary hyperparathyroidism of renal origin Stroke ([facility]) Vitamin D deficiency [2] Allergies Allergen Reactions [...] the patient meet criteria for admission to [facility]: Assessment: Failure to thrive, in the [...] he would like to return to the [facility] setting and given his current COVID status [...] and would like to return to his nursing home facility. Pertinent imaging: XR chest 1 view [[id number]] Collected: 07/15/25 1347 Order Status: Completed Updated: [...] Set-up and Support System: He was at [facility] and he would like toreturn there Current [...] file Stress: No Stress Concern Present (04/05/2025) [place] [facility] [employer]ational [facility] - Occupational Stress Questionnaire Feeling of Stress : Only a little Social Connections: Socially Isolated (04/05/2025) Social Connection and Isolation Panel Frequency of Communication with Friends and Family: More than three times a week Frequency of Social Gatherings with Friends and Family: More than three times a week Attends Faith Services: Never Active Member of Clubs or [...] perseverated on the food quality at the nursing home facility Laboratory Data: Hematology: Results from last [...] mentioned above were reviewed by the note va underwriter. Additionally, a history was obtained from the patient / family whenever possible, but a summary of the hospital course prior to this consultation was obtained from a review of the medical records and chart review. This note was completed using a voice munitions worker system. Every effort was made to ensure accuracy; however, inadvertent computerized munitions worker errors may be present, please contact if [...] stage 5, GFR less than 15 ml/min ([facility]) Diverticular disease s/p colectomy 2015 Gout History of DVT (deep vein thrombosis) proximal vein left leg (from distal calf to groin, 07/2021, was to be on lifelong warfarin but stopped after 05/2022 GI bleed) Hypertensive disorder Lung nodule seen on imaging study NSAID long-term use h/o Proteinuria Recurrent sinusitis Recurrent sinusitis Renal cyst, left Secondary hyperparathyroidism of renal origin Stroke ([facility]) Vitamin D deficiency [5] Family History Problem Relation Name Age of Onset Heart disease Father Had pacemaker * Anthony Stern MD - 07/14/2025 10:50 AM EST Images from the original note were not included. Nephrology Consult Note Patient : Christal Suh; 69 y.o. Location: [facility]/3170-01 Attending: Jayjay Robin MD Admit Date: 07/13/2025 Hospital Day: 1 Reason for Consult: Medical management in transplant patient. History of Present Illness: Christal Suh is a 69 y.o. male with a PMH significant for ESRD 2/2 HTN s/p DDRT (03/31/2025) and recent ischemic stroke (04/2025) who presented to [facility] due to concern for infection in an immunocompromised patient. He is Covid-19 positive and positive for C Diff. Patient has not been eating or drinking well. Notably, he was recently admitted to [facility] for a pseudomonas UTI from 05/29 [...] Dose Status acetaminophen (Tylenol) 325 mg tablet [id number] Take 650 mg by mouth every 6 (six) hours if needed for mild pain (1-3 pain score) or fever greater than or equal to 38 degrees Celsius. Historical ProviderMD Active azaTHIOprine (Imuran) 75 mg tablet [id number] No Take 1 tablet (75 mg) by mouth in the morning for 96doses. Patient not taking: Reported on 07/13/2025 Grazyna Briseno CNP Not Taking Active calcium carbonate (Tums) 200 mg calcium (500 mg) chewable tablet [id number] Chew 3 tablets (1,500 mg)two times daily. Without food Patient taking differently: Chew 2 tablets two times daily. Without food Jayjay Robin MD Active calcium carbonate-vitamin D3 500 mg-5 mcg (200 unit) tablet [id number] Take 2 tablets by mouth two times daily. Patient taking differently: Take 1 tablet by mouth at bedtime. Grazyna Briseno CNP Active carvedilol (Coreg) 25 mg tablet [id number] 25 mg with breakfast and with evening meal. Historical ProviderMD Active cephalexin (Keflex) 500 mg capsule [id number] Take 500 mg by mouth four times daily. FOR INFECTION FOR 10 DAYS(07/13 - 07/23) Historical ProviderMD Active docusate sodium (Colace) 100 mg capsule [id number] Take 100 mg by mouth two times daily. Historical ProviderMD Active famotidine (Pepcid) 20 mg tablet [id number] Take 1 tablet (20 mg) by mouth at bedtime. Jayjay Robin MD Active finasteride (Proscar) 5 mg tablet [id number] Take 1 tablet (5 mg) by mouth in the morning. Do not crush, chew, or split. Jayjay Robin MD Active folic acid (Folvite) 1 mg tablet [id number] Take 1 tablet (1 mg) by mouth in the morning for 94 doses. Grazyna Briseno CNP Active guaiFENesin (Mucinex) 600 mg 12 hr tablet [id number] Take 1,200 mg by mouth two times daily. Do not crush, chew, or split. Historical ProviderMD Active hydrALAZINE (Apresoline) 100 mg tablet [id number] Take 1 tablet (100 mg) by mouth three times daily. Wendy Lomeli MD Active ipratropium-albuteroL (Duo-Neb) 0.5-2.5 mg/3 mL nebulizer solution [id number] Take 3 mL by nebulization every 6 (six) hours if needed for wheezing or shortness of breath. Cristal Vazquez MD Active magnesium glycinate 100 mg magnesium capsule [id number] Take 3 capsules (300 mg) by mouth three timesdaily. Jayjay Robin MD Active NIFEdipine XL (Procardia XL) 30 mg 24 hr tablet [id number] Take 1 tablet (30 mg) by mouth in the morning. Do not crush, chew, or split. Jayjay Robin MD Active nystatin (Mycostatin) 100,000 unit/mL suspension [id number] Take 5 mL (500,000 Units) by mouth four times daily. Swish and swallow Wendy Lomeli MD Active ondansetron (Zofran) 4 mg tablet [id number] Take 4 mg by mouth every 4 (four) hours if needed for nausea or vomiting. Historical ProviderMD Active pantoprazole (ProtoNix) 40 mg EC tablet [id number] Take 1 tablet (40 mg) by mouth before breakfast. Do not crush, chew, or split. Delano Klein MD Active predniSONE (Deltasone) 10 mg tablet [id number] Take 1 tablet (10 mg) by mouth in the morning. Jayjay Robin MD Active sod phos di, mono-K phos mono (K Phos Neutral) tablet [id number] Take 1 tablet by mouth two times daily. Jayjay Robin MD Active sulfamethoxazole-trimethoprim (Bactrim DS) 800-160 mg tablet [id number] Take 1 tablet by mouth 3 (three) times a week. On Wednesday, Wednesday, and Wednesday Wendy Lomeli MD Active tacrolimus ER (Envarsus XR) 4 mg tablet ER [id number] Take 1 tablet (4 mg) by mouth in the morning. Script total 8.5 mg daily Patient taking differently: Take 4 mg by mouth in the morning. 4 mg daily Wendy Lomeli MD Active tamsulosin (Flomax) 0.4 mg 24 hr capsule [id number] Take 2 capsules (0.8 mg) by mouth in the morning.Jayjay Robin MD Active valGANciclovir (Valcyte) 450 mg tablet [id number] Take 1 tablet (450 mg) by mouth in the morning. As directed. Wendy Lomeli MD Active vancomycin (Vancocin) 125 mg capsule [id number] Take 125 mg by mouth 2 times [...] file Stress: No Stress Concern Present (04/05/2025) [facility] [place] [facility] - Occupational Stress Questionnaire Feeling of Stress : Only a little Social Connections: Socially Isolated (04/05/2025) Social Connection and Isolation Panel Frequency of Communication with Friends and Family: More than three times a week Frequency of Social Gatherings with Friends and Family: More than three times a week Attends Faith Services: Never Active Member of Clubs or [...] Stern MD, PhD Internal Medicine Resident, PGY-3 [facility] [1] Allergies Allergen Reactions Shellfish Derived Nausea And Vomiting Vomiting Amlodipine Swelling Leg edema Fish Containing Products Unknown [2] Past Medical History: Diagnosis Date Anemia in chronic kidney disease (CKD) CKD (chronic kidney disease) stage 5, GFR less than 15 ml/min ([facility]) Diverticular disease s/p colectomy 2015 Gout History of DVT (deep vein thrombosis) proximal vein left leg (from distal calf to groin, 07/2021, was to be on lifelong warfarin but stopped after 05/2022 GI bleed) Hypertensive disorder Lung nodule seen on imaging study NSAID long-term use h/o Proteinuria Recurrent sinusitis Recurrent sinusitis Renal cyst, left Secondary hyperparathyroidism of renal origin Stroke ([facility]) Vitamin D deficiency [3] Past Surgical History: [...] Faculty, Division of Nephrology, Department of Medicine [facility]. * Brinda [...] in March 2025 on immunossupression admitted to [facility] for failure to thrive. ID consulted for reported hx of COVID and C.Diff In brief, the patient is presenting from [facility]. He was reportedly tested for Cdiff [...] file Stress: No Stress Concern Present (04/05/2025) [place] [facility] - Occupational Stress Questionnaire Feeling of Stress : Only a little Social Connections: Socially Isolated (04/05/2025) Social Connection and Isolation Panel Frequency of Communication with Friends and Family: More than three times a week Frequency of Social Gatherings with Friends and Family: More than three times a week Attends Faith Services: Never Active Member of Clubs or [...] [facility] Infectious Diseases Please contact us via [email or web address] during business hours. If no response in 15 min, call / page through the heavy rail train operator I performed a history and physical examination [...] diarrhea over a week ago that the [facility] told him was C. difficile and which has resolved on oral vancomycin. He states that he has no recent history of fevers chills shortness of breath, has no current respiratory complaints including cough, and no current GI complaints but he was told by the [facility] that a COVID test done on July [...] of a COVID positive test from the [facility] and did ask to see the test [...] care of this patient. Brinda Menjivar MD [place] Infectious Diseases Phone:[phone] This progress note was completed using a voice munitions worker system. Every effort was made to ensure accuracy; however, inadvertent computerized munitions worker errors may be present. In addition, our [...] stage 5, GFR less than 15 ml/min ([facility]) Diverticular disease s/p colectomy 2015 Gout History of DVT (deep vein thrombosis) proximal vein left leg (from distal calf to groin, 07/2021, was to be on lifelong warfarin but stopped after 05/2022 GI bleed) Hypertensive disorder Lung nodule seen on imaging study NSAID long-term use h/o Proteinuria Recurrent sinusitis Recurrent sinusitis Renal cyst, left Secondary hyperparathyroidism of renal origin Stroke ([facility]) Vitamin D deficiency [2] Past Surgical History: [...] Ronaldo Vora RN Rapid Response Team Nurse [phone] 07/16/2025 12:05 PM * Lb Jacob RN [...] concerns at time of follow up. The va underwriter urged the primary RN to call the rapid team if any concerns arise overnight. bL Jacob RN Rapid Response Team Nurse [phone] 07/15/2025 10:09 PM * Roosevelt Corral RN - 07/15/2025 4:00 PM EST Rapid Response Team called due to patient having SOB. Project Coach responded to patient call light and patient [...] BiPAP and transferred to negative pressure room, [facility]. Checked on patient @1600 and patient was able to recall rapid response event, alert and oriented x4, and has an output of 400 mL in the last 2 hours. Patient denies SOB and chest pain at this time. 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 Recommendations to address [...] have been completed. Barriers to Discharge: Diet: spring to submit precert today to return. Dietary [...] VSS, adequate nutrition, increase strength. * Care Plan - Roosevelt Corral RN - 07/15/2025 7:51 [...] Plan of Treatment DateTypeDepartmentCare Team (Latest Contact Info)Ujkmxespqhk01/05/2026 8:00 AM ESTFollow-Up [facility] [address] [place] [address] NameTypePriorityAssociated DiagnosesDate/TimeNatera FmxxllvfQewZlvllcn67/16/2025 12:49 PM ESTNameTypePriorityAssociated DiagnosesOrder ScheduleNatera Propsera LabRoutineOnce (Lab) for 1 Occurrences starting 07/17/2025 until 07/17/2025 documented as of this encounter Goals GoalPatient Goal TypeAssociated ProblemsRecent ProgressPatient-Stated?Author Blood Pressure < 140/90 Blood Ijtnoing512/85(07/24/2025 9:11 AM EST)Crista March RNdocumented as of this encounter Procedures Procedure NamePriorityDate/TimeAssociated DiagnosisCommentsURINE CULTUREPending Wsjxnugwu28/23/2025 11:56 AM EST PHOSPHORUSPending Koraknauo28/23/2025 5:02 AM EST MAGNESIUMPending Ykyanqbkh91/23/2025 5:02 AM EST COMPREHENSIVE METABOLIC PANELPending Aaysklxlc18/23/2025 5:02 AM EST TACROLIMUS LEVELPending Zfjwtkvgp59/23/2025 5:01 AM EST CBCPending Mshwffjzj09/23/2025 5:01 AM EST TACROLIMUS LEVELPending Myncsbbjm77/22/2025 6:50 AM EST CBCPending Jjsuiqyka47/22/2025 6:50 AM EST PHOSPHORUSPending Ifipedtuu13/22/2025 6:50 AM EST MAGNESIUMPending Hjnhznaau99/22/2025 6:50 AM EST COMPREHENSIVE METABOLIC PANELPending Rgatxarfa83/22/2025 6:[address] ABDOMEN PELVIS WO IV AWVLHAIKSTQT76/21/2025 12:22 PM EST TACROLIMUS LEVELPending Wfbnaffcl82/21/2025 4:01 AM EST CBCPending Uwatddzrl81/21/2025 4:01 AM EST PHOSPHORUSPending Efqugryer51/21/2025 4:01 AM EST MAGNESIUMPending Bxemjlsqs01/21/2025 4:01 AM EST COMPREHENSIVE METABOLIC PANELPending Qmyasthhn33/21/2025 4:01 AM EST TACROLIMUS LEVELPending Aymdllvhk74/20/2025 3:40 AM EST CBCPending Qxzbpdezs60/20/2025 3:40 AM EST PHOSPHORUSPending Gvhfbtuyv91/20/2025 3:40 AM EST MAGNESIUMPending Ryskqanwq70/20/2025 3:40 AM EST COMPREHENSIVE METABOLIC PANELPending Hvnrwxbdf54/20/2025 3:40 AM EST URINALYSIS MICROSCOPIC WITH REFLEX CULTUREPending Rlhbmzzhx56/19/2025 2:37 PM EST URINALYSIS WITH REFLEX CULTUREPending Hzkpwbipu70/19/2025 2:37 PM EST URINE FHIRHLBFggmmml82/19/2025 2:37 PM EST XR CHEST 1 XVGBMrthyse90/19/2025 12:20 PM EST RAPID INFLUENZA A/B PCRPending Hmiiyoehw18/19/2025 11:21 AM EST BLOOD CULTUREPending Ilspmngst08/19/2025 10:55 AM EST BLOOD CULTUREPending Xipqicekv23/19/2025 10:55 AM EST TACROLIMUS LEVELPending Fodgacczy24/19/2025 5:15 AM EST CBCPending Jgckdvbfh65/19/2025 5:15 AM EST PHOSPHORUSPending Gckvmzagk06/19/2025 5:15 AM EST MAGNESIUMPending Mqrqlybdf65/19/2025 5:15 AM EST CKAdd-On07/20/2025 5:15 AM EST COMPREHENSIVE METABOLIC PANELPending Fpgfzxymk12/19/2025 5:15 AM EST POCT GLUCOSE METER UNSOLICITED LUVHUCKGronkqd56/18/2025 7:19 AM EST TACROLIMUS LEVELPending Jbmsbrxnl62/18/2025 5:18 AM EST CBCPending Prxyzcmdp67/18/2025 5:18 AM EST PHOSPHORUSPending Qgadtzsqq36/18/2025 5:18 AM EST MAGNESIUMPending Ntrbvyvxf00/18/2025 5:18 AM EST COMPREHENSIVE METABOLIC PANELPending Silwcknof77/18/2025 5:18 AM EST TACROLIMUS LEVELPending Wnunztcuo13/17/2025 5:32 AM EST VITAMIN D 25 HYDROXYAdd-On07/18/2025 5:32 AM EST CBCPending Jmwbhhmat15/17/2025 5:32 AM EST PHOSPHORUSPending Zefnctlje79/17/2025 5:32 AM EST PTH, INTACTAdd-On07/18/2025 5:32 AM EST MAGNESIUMPending Yimjjbrzk35/17/2025 5:32 AM EST COMPREHENSIVE METABOLIC PANELPending Yemlwkcdx96/17/2025 5:32 AM EST DONOR SPECIFIC DEYBTDNKMndwnlj58/16/2025 12:17 PM EST SINGLE ANTIGEN CLASS IIPending Pamtrjtfb76/16/2025 12:17 PM EST SINGLE ANTIGEN CLASS IPending Bskudejfo87/16/2025 12:17 PM EST BK VIRUS, PLASMA, QUANTITATIVEPending Zllrclgzz34/16/2025 12:17 PM EST CMV DNA, QUANTITATIVE, NAAT, PLASMAPending Ztdhldkdd00/16/2025 12:17 PM EST PROTEIN, URINE, RANDOMPending Vqbzndcen01/16/2025 12:12 PM EST CREATININE, URINE, RANDOMPending Obccwqoaw63/16/2025 12:12 PM EST URINALYSIS MICROSCOPICPending Qxbqudagw96/16/2025 12:12 PM EST URINALYSISPending Qhtxswrxs65/16/2025 12:12 PM EST URINE CULTUREAdd-On07/17/2025 12:12 PM EST TACROLIMUS LEVELPending Ophefcbcq77/16/2025 5:01 AM EST CBCPending Kfxqgaflo51/16/2025 5:01 AM EST PHOSPHORUSPending Qsnmdgxjj89/16/2025 5:01 AM EST MAGNESIUMPending Nozagvtzb26/16/2025 5:01 AM EST COMPREHENSIVE METABOLIC PANELPending Dhplxxtuc46/16/2025 5:01 AM EST RESPIRATORY ASSESS AND TREAT JAZHFVUXNtecktw46/15/2025 8:00 AM ESTTACROLIMUS LEVELPending Czbwzvddf58/15/2025 5:08 AM EST CBCPending Triukvwbo26/15/2025 5:08 AM EST PHOSPHORUSPending Ssfhmireo11/15/2025 5:08 AM EST MAGNESIUMPending Lqsgxdjmn38/15/2025 5:08 AM EST COMPREHENSIVE METABOLIC PANELPending Vsyouqtwr05/15/2025 5:08 AM EST RESPIRATORY ASSESS AND TREAT PTRQIXVKBschkox93/14/2025 2:24 PM ESTRESPIRATORY ASSESS AND TREAT UXUYECMVAelcbwu91/14/2025 2:24 PM ESTXR CHEST 1 VIEWSTAT 07/15/2025 1:41 PM EST CBC WITH AUTO WZJERSIOTDTBDfzafqs84/14/2025 11:27 AM EST CBC AND YSKIMAWSMOPHNzyzlfo05/14/2025 11:27 AM EST TACROLIMUS VNEIPFmmuyeg40/14/2025 3:27 AM EST IRON AND TIBCAdd-On07/15/2025 3:27 AM EST CUQRsdlaza34/14/2025 3:27 AM EST ZEUXPQKGQAEcluety02/14/2025 3:27 AM EST YMUQSENNHDxvisbw32/14/2025 3:27 AM EST FERRITINAdd-On07/15/2025 3:27 AM EST COMPREHENSIVE METABOLIC ZCZHONtxnboc05/14/2025 3:27 AM EST SARS-COV-2 IOGYkurkrn25/13/2025 6:13 PM EST TACROLIMUS IJCQHImnrzml27/13/2025 3:37 AM EST TAZOjsieri71/13/2025 3:37 AM EST AACEYXMVSIOjeiski57/13/2025 3:37 AM EST EKFRSXHDTPgyqwie14/13/2025 3:37 AM EST COMPREHENSIVE METABOLIC SQZQYGpwsfwa87/13/2025 3:37 AM EST TACROLIMUS NFZWVWajzthz28/12/2025 8:48 PM EST VNTRcnobfs11/12/2025 8:48 PM EST TTBWSXJDFEYslursq44/12/2025 8:48 PM EST MGYDPKDKQTngomba96/12/2025 8:48 PM EST COMPREHENSIVE METABOLIC YYWKZWtfwgur38/12/2025 8:48 PM EST documented in this encounter Results * Urine culture, routine (07/24/2025 11:56 AM EST)ComponentValueRef RangeTest MethodAnalysis TimePerformed AtPathologist SignatureUrine CultureNo growth at 48 hours JES 07/26/2025 7:15 AM [facility] ([place])Specimen (Source)Anatomical Location / LateralityCollection Method / VolumeCollection TimeReceived TimeUrine Urine specimen obtained by clean catch procedure / UnknownNon-blood Collection / Aoaggui0607/24/2025 11:56 AM EST07/24/2025 12:04 PM EST Narrative Authorizing ProviderResult TypeResult StatusJojazmin Briseno [facility] MICROBIOLOGY - GENERAL ORDERABLESFinal ResultPerforming OrganizationAddress City/State/ZIP CodePhone Number [facility] ([facility]) [address] [place] [address] * (ABNORMAL) Phosphorus (07/24/2025 5:02 AM EST)ComponentValueRef RangeTest MethodAnalysis TimePerformed AtPathologist SignaturePhosphorus1.9(L)2.5 - 5.0 mg/dL07/24/2025 6:05 AM [facility] ([facility])Specimen (Source) Anatomical Location / LateralityCollection Method / VolumeCollection Time Received TimeBloodVenous blood specimen / UnknownVenipuncture / Unknown 07/24/2025 5:02 AM EST07/24/2025 5:39 AM EST Narrative Authorizing ProviderResult TypeResult StatusKunatuan FAJARDO BLOOD ORDERABLES Final ResultPerforming OrganizationAddressty/State/ZIP CodePhone Number [facility] ([facility]) [address] [place] [address] * Magnesium (07/24/2025 5:02 AM EST)ComponentValueRef RangeTest MethodAnalysis TimePerformed AtPathologist SignatureMagnesium2.21.9 - 2.7 mg/dL07/24/2025 6:05 AM [facility] ([facility])Specimen (Source)Anatomical Location / LateralityCollection Method / VolumeCollection TimeReceived TimeBloodVenous blood specimen / UnknownVenipuncture / Fujumpf2907/24/2025 5:02 AM EST07/24/2025 5:39 AM EST Narrative Authorizing ProviderResult TypeResult StatusKunatuan FAJARDO BLOOD ORDERABLES Final ResultPerforming OrganizationAddressty/State/ZIP CodePhone Number [facility] ([facility]) [address] [place] [address] * (ABNORMAL) Comprehensive metabolic panel (07/24/2025 5:02 AM EST)Component ValueRef RangeTest MethodAnalysis TimePerformed AtPathologist SignatureSodium 633170 - 145 mmol/L109/24/2024 6:17 AM [facility] ([facility])Potassium 4.03.5 - 5.1 mmol/L109/24/2024 6:17 AM [facility] ([facility])Rsahljpg587 (H)98 - 107 mmol/L109/24/2024 6:17 AM [facility] ([facility])ER23139 - 31 mmol/L109/24/2024 6:17 AM [facility] ([facility])Anion Hac818 - 20 mmol/L109/24/2024 6:17 AM [facility] ([facility])BUN35(H)7 - 25 mg/dL 07/24/2025 6:17 AM [facility] ([facility])Creatinine1.290.70 - 1.30 mg/dL07/24/2025 6:17 AM [facility] ([facility])BUN/Creatinine Ratio27.1 07/24/2025 6:17 AM [facility] ([facility])Vujcprs781(H)70 - 100 mg/dL 07/24/2025 6:17 AM [facility] ([facility])Calcium7.6(L)8.6 - 10.3 mg/dL 07/24/2025 6:17 AM [facility] ([facility])OZV1140 - 39 U/L109/24/2024 6:17 AM [facility] ([facility])ALT (SGPT)137 - 52 U/L109/24/2024 6:17 AM [facility] ([facility])Alkaline Vsuhazbhcqt1409 - 104 U/L109/24/2024 6:17 AM [facility] ([facility])Total Protein4.4(L)6.0 - 8.3 g/dL07/24/2025 6:17 AM [facility] ([facility])Albumin2.9(L)3.5 - 5.7 g/dL07/24/2025 6:17 AM [facility] ([facility])Total Bilirubin0.30.3 - 1.0 mg/dL 07/24/2025 6:17 AM [facility] ([facility])eGFR59.6(L)>60.0 mL/min/1.73m* 6:17 AM [facility] ([facility])Comment:[facility]???s estimated glomerular filtration rate (eGFR) will [...] TimeReceived TimeBloodVenous blood specimen / UnknownVenipuncture / Ofspnol3207/24/2025 5:02 AM EST07/24/2025 5:39 AM EST Narrative Authorizing ProviderResult TypeResult StatusJayjay Robin DCTONO BLOOD ORDERABLES Final ResultPerforming OrganizationAddressCity/State/ZIP CodePhone Number [facility] ([facility]) [address] [place] [address] * Tacrolimus level (07/24/2025 5:01 AM EST)ComponentValueRef RangeTest Method Analysis TimePerformed AtPathologist SignatureTacrolimus Lvl6.65.0 - 20.0 ng/mL07/24/2025 11:01 AM [facility] ([facility])Comment:The CM [employer]UNT DRIVER Tacrolimus assay is a delayed one-step immunoassay for the quantitative determination of tacrolimus in human whole blood using the chemiluminescent microparticle immunoassay (CMIA) technology with flexible assay protocols, referred to as Chemiflex.Specimen (Source)Anatomical Location / LateralityCollection Method / VolumeCollection TimeReceived TimeBloodVenous blood specimen / UnknownVenipuncture / Ibtaifi4507/24/2025 5:01 AM EST 07/24/2025 5:39 AM EST Narrative Authorizing ProviderResult TypeResult StatusJayjay FAJARDO BLOOD ORDERABLES Final ResultPerforming OrganizationAddressCity/State/ZIP CodePhone Number [facility]) [address] [place] [address] * (ABNORMAL) CBC (07/24/2025 5:01 AM EST)ComponentValueRef RangeTest Method Analysis TimePerformed AtPathologist SignatureAuto WBC10.66(H)4.00 - 10.60 10*3/uL07/24/2025 5:46 AM [facility] ([facility])RBC2.37(L)4.20 - 5.70 10*6/uL07/24/2025 5:46 AM [facility] ([facility])Hemoglobin7.9(L)13.0 - 17.0 g/dL07/24/2025 5:46 AM [facility] ([facility])Dxevdgzjbx39.0(L)39.0 - 50.0 %07/24/2025 5:46 AM [facility] ([facility])DMY340.3(H)82.0 - 98.0 fL07/24/2025 5:46 AM [facility])MCH33.3(H)27.0 - 33.0 pg07/24/2025 5:46 AM [facility])MCHC32.932.0 - 35.0 g/dL 07/24/2025 5:46 AM [facility] ([facility])RDW18.3(H)11.5 - 15.0 % 07/24/2025 5:46 AM [facility] ([facility])Jnbchvidm705149 - 400 10*3/uL 07/24/2025 5:46 AM [facility] ([facility])Specimen (Source)Anatomical Location / LateralityCollection Method / VolumeCollection TimeReceived Time BloodVenous blood specimen / UnknownVenipuncture / Maqlfmt9907/24/2025 5:01 AM EST07/24/2025 5:39 AM EST Narrative Authorizing ProviderResult TypeResult StatusKunal Lobito FAJARDO BLOOD ORDERABLES Final ResultPerforming OrganizationAddressCity/State/ZIP CodePhone Number [facility] ([facility]) [address] [place] [address] * Tacrolimus level (07/23/2025 6:50 AM EST)ComponentValueRef RangeTest Method Analysis TimePerformed AtPathologist SignatureTacrolimus Lvl6.55.0 - 20.0 ng/mL07/23/2025 9:09 AM [facility])Comment:The CM [employer] DRIVER Tacrolimus assay is a delayed one-step immunoassay for the quantitative determination of tacrolimus in human whole blood using the chemiluminescent microparticle immunoassay (CMIA) technology with flexible assay protocols, referred to as Chemiflex.Specimen (Source)Anatomical Location / LateralityCollection Method / VolumeCollection TimeReceived TimeBloodVenous blood specimen / UnknownVenipuncture / Lzkings4307/23/2025 6:50 AM EST 07/23/2025 7:07 AM EST Narrative Authorizing ProviderResult TypeResult StatusJayjay FAJARDO BLOOD ORDERABLES Final ResultPerforming OrganizationAddressCity/State/ZIP CodePhone Number [facility] ([facility]) [address] [place] [address] * Phosphorus (07/23/2025 6:50 AM EST)ComponentValueRef RangeTest MethodAnalysis TimePerformed AtPathologist SignaturePhosphorus2.52.5 - 5.0 mg/dL07/23/2025 7:57 AM [facility])Specimen (Source)Anatomical Location / LateralityCollection Method / VolumeCollection TimeReceived TimeBloodVenous blood specimen / UnknownVenipuncture / Hcydsdi1607/23/2025 6:50 AM EST07/23/2025 7:07 AM EST Narrative Authorizing ProviderResult TypeResult StatusJayjay FAJARDO BLOOD ORDERABLES Final ResultPerforming OrganizationAddressCity/State/ZIP CodePhone Number [facility] ([facility]) [address] [place] [address] * (ABNORMAL) Magnesium (07/23/2025 6:50 AM EST)ComponentValueRef RangeTest MethodAnalysis TimePerformed AtPathologist SignatureMagnesium1.5(L)1.9 - 2.7 mg/dL07/23/2025 7:57 AM [facility])Specimen (Source) Anatomical Location / LateralityCollection Method / VolumeCollection Time Received TimeBloodVenous blood specimen / UnknownVenipuncture / Unknown 07/23/2025 6:50 AM EST07/23/2025 7:07 AM EST Narrative Authorizing ProviderResult TypeResult StatusJayjay Robin MDLAB BLOOD ORDERABLES Final ResultPerforming OrganizationAddressCity/State/ZIP CodePhone Number [facility] ([facility]) [address] [place] [address] * (ABNORMAL) Comprehensive metabolic panel (07/23/2025 6:50 AM EST)Component ValueRef RangeTest MethodAnalysis TimePerformed AtPathologist SignatureSodium 476024 - 145 mmol/L109/23/2024 7:57 AM [facility] ([facility])Potassium 3.73.5 - 5.1 mmol/L109/23/2024 7:57 AM [facility] ([facility])Xuduodzp162 (H)98 - 107 mmol/L109/23/2024 7:57 AM [facility] ([facility])WJ71098 - 31 mmol/L109/23/2024 7:57 AM [facility] ([facility])Anion Lnj883 - 20 mmol/L109/23/2024 7:57 AM [facility] ([facility])BUN38(H)7 - 25 mg/dL 07/23/2025 7:57 AM [facility] ([facility])Creatinine1.150.70 - 1.30 mg/dL07/23/2025 7:57 AM [facility] ([facility])BUN/Creatinine Ratio33.0 07/23/2025 7:57 AM [facility] ([facility])Bxwzzdf384(H)70 - 100 mg/dL 07/23/2025 7:57 AM [facility] ([facility])Calcium7.7(L)8.6 - 10.3 mg/dL 07/23/2025 7:57 AM [facility] ([facility])AST11(L)13 - 39 U/L109/23/2024 7:57 AM [facility] ([facility])ALT (SGPT)127 - 52 U/L109/23/2024 7:57 AM [facility] ([facility])Alkaline Rwoqhzijfbb0201 - 104 U/L109/23/2024 7:57 AM [facility] ([facility])Total Protein4.5(L)6.0 - 8.3 g/dL07/23/2025 7:57 AM [facility] ([facility])Albumin2.9(L)3.5 - 5.7 g/dL07/23/2025 7:57 AM [facility] ([facility])Total Bilirubin0.30.3 - 1.0 mg/dL 07/23/2025 7:57 AM [facility] ([facility])eGFR68.5>60.0 mL/min/1.73m*2 07/23/2025 7:57 AM [facility] ([facility])Comment:[facility]???s estimated glomerular filtration rate (eGFR) will [...] TimeBloodVenous blood specimen / Unknown Venipuncture / Mmxoamt8107/23/2025 6:50 AM EST07/23/2025 7:07 AM EST Narrative Authorizing ProviderResult TypeResult StatusKunal Lobito FAJARDO BLOOD ORDERABLES Final ResultPerforming OrganizationAddressCity/State/ZIP CodePhone Number [facility] ([facility]) [address] [place] [address] * (ABNORMAL) CBC (07/23/2025 6:50 AM EST)ComponentValueRef RangeTest Method Analysis TimePerformed AtPathologist SignatureAuto WBC9.504.00 - 10.60 10*3/uL 07/23/2025 7:18 AM [facility] ([facility])RBC2.42(L)4.20 - 5.70 10*6/uL 07/23/2025 7:18 AM [facility] ([facility])Hemoglobin8.0(L)13.0 - 17.0 g/dL07/23/2025 7:18 AM [facility] ([facility])Dpsauyjucc76.4(L)39.0 - 50.0 %07/23/2025 7:18 AM [facility] ([facility])DHK315.8(H)82.0 - 98.0 fL07/23/2025 7:18 AM [facility] ([facility])MCH33.1(H)27.0 - 33.0 pg 07/23/2025 7:18 AM [facility] ([facility])MCHC32.832.0 - 35.0 g/dL 07/23/2025 7:18 AM [facility] ([facility])RDW18.0(H)11.5 - 15.0 % 07/23/2025 7:18 AM [facility] ([facility])Iaidxmtmg551052 - 400 10*3/uL 07/23/2025 7:18 AM [facility] ([facility])Specimen (Source)Anatomical Location / LateralityCollection Method / VolumeCollection TimeReceived Time BloodVenous blood specimen / UnknownVenipuncture / Emxsofo7807/23/2025 6:50 AM EST07/23/2025 7:07 AM EST Narrative Authorizing ProviderResult TypeResult StatusKunal Lobito JOSEPHLAB BLOOD ORDERABLES Final ResultPerforming OrganizationAddressCity/State/ZIP CodePhone Number [facility] ([facility]) [address] [place] [address] * CT abdomen pelvis wo IV contrast [...] the left upper abdomen. * Atrophic both [place] kidneys with the left renal cyst. * [...] No biliary ductal dilatation is identified. Both [place] kidneys are small and atrophic. There is no evidence of hydronephrosis in the [place] kidneys. There is a stable left renal [...] No biliary ductal dilatation is identified. Both [place] kidneys are small and atrophic. There is no evidence of hydronephrosis in the [place] kidneys. There is a stable left renal [...] in the left upper abdomen. *Atrophic both [place] kidneys with the left renal cyst. *Bilateral small pleural effusions and bibasilar atelectasis. *Pericardial effusion. Electronically signed: Rosalino Rueda. Authorizing ProviderResult TypeResult StatusJayjay BURROWS CT PROCEDURESFinal Result * Tacrolimus level (07/22/2025 4:01 AM EST)ComponentValueRef RangeTest Method Analysis TimePerformed AtPathologist SignatureTacrolimus Lvl7.15.0 - 20.0 ng/mL07/22/2025 9:25 AM [facility] ([facility])Comment:The CM STUNT DRIVER Tacrolimus assay is a delayed one-step immunoassay for the quantitative determination of tacrolimus in human whole blood using the chemiluminescent microparticle immunoassay (CMIA) technology with flexible assay protocols, referred to as Chemiflex.Specimen (Source)Anatomical Location / LateralityCollection Method / VolumeCollection TimeReceived TimeBloodVenous blood specimen / UnknownVenipuncture / Ogevfej8107/22/2025 4:01 AM EST 07/22/2025 4:15 AM EST Narrative Authorizing ProviderResult TypeResult Jalen FAJARDO BLOOD ORDERABLES Final ResultPerforming OrganizationAddressCity/State/ZIP CodePhone Number [facility] ([facility]) [address] [place] [address] * Phosphorus (07/22/2025 4:01 AM EST)ComponentValueRef RangeTest MethodAnalysis TimePerformed AtPathologist SignaturePhosphorus3.52.5 - 5.0 mg/dL07/22/2025 4:39 AM [facility] ([facility])Specimen (Source)Anatomical Location / LateralityCollection Method / VolumeCollection TimeReceived TimeBloodVenous blood specimen / UnknownVenipuncture / Cuctbew9407/22/2025 4:01 AM EST07/22/2025 4:15 AM EST Narrative Authorizing ProviderResult TypeResult StatusJayjay FAJARDO BLOOD ORDERABLES Final ResultPerforming OrganizationAddressCity/State/ZIP CodePhone Number [facility]) [address] [place] [address] * (ABNORMAL) Magnesium (07/22/2025 4:01 AM EST)ComponentValueRef RangeTest MethodAnalysis TimePerformed AtPathologist SignatureMagnesium1.5(L)1.9 - 2.7 mg/dL07/22/2025 4:39 AM [facility] ([facility])Specimen (Source) Anatomical Location / LateralityCollection Method / VolumeCollection Time Received TimeBloodVenous blood specimen / UnknownVenipuncture / Unknown 07/22/2025 4:01 AM EST07/22/2025 4:15 AM EST Narrative Authorizing ProviderResult TypeResult StatusKunal Lobito FAJARDO BLOOD ORDERABLES Final ResultPerforming OrganizationAddressCity/State/ZIP CodePhone Number [facility]) [address] [place] [address] * (ABNORMAL) Comprehensive metabolic panel (07/22/2025 4:01 AM EST)Component ValueRef RangeTest MethodAnalysis TimePerformed AtPathologist SignatureSodium 978682 - 145 mmol/L109/22/2024 4:39 AM [facility] ([facility])Potassium 3.63.5 - 5.1 mmol/L109/22/2024 4:39 AM [facility] ([facility])Qxqjbogm975 (H)98 - 107 mmol/L109/22/2024 4:39 AM [facility] ([facility])BL71536 - 31 mmol/L109/22/2024 4:39 AM [facility] ([facility])Anion Jkh807 - 20 mmol/L109/22/2024 4:39 AM [facility] ([facility])BUN39(H)7 - 25 mg/dL 07/22/2025 4:39 AM [facility] ([facility])Creatinine1.42(H)0.70 - 1.30 mg/dL07/22/2025 4:39 AM [facility] ([facility])BUN/Creatinine Ratio27.5 07/22/2025 4:39 AM [facility] ([facility])Vdvirbm574(H)70 - 100 mg/dL 07/22/2025 4:39 AM [facility] ([facility])Calcium7.9(L)8.6 - 10.3 mg/dL 07/22/2025 4:39 AM [facility] ([facility])AST11(L)13 - 39 U/L109/22/2024 4:39 AM [facility] ([facility])ALT (SGPT)137 - 52 U/L109/22/2024 4:39 AM [facility] ([facility])Alkaline Pdmjdiymlce5985 - 104 U/L109/22/2024 4:39 AM [facility] ([facility])Total Protein4.6(L)6.0 - 8.3 g/dL07/22/2025 4:39 AM [facility] ([facility])Albumin3.0(L)3.5 - 5.7 g/dL07/22/2025 4:39 AM [facility] ([facility])Total Bilirubin0.30.3 - 1.0 mg/dL 07/22/2025 4:39 AM [facility] ([facility])eGFR53.2(L)>60.0 mL/min/1.73m* 4:39 AM [facility] ([facility])Comment:[facility]???s estimated glomerular filtration rate (eGFR) will [...] TimeReceived TimeBloodVenous blood specimen / UnknownVenipuncture / Ihkfyun3407/22/2025 4:01 AM EST07/22/2025 4:15 AM EST Narrative Authorizing ProviderResult TypeResult StatusKunal Lobito FAJARDO BLOOD ORDERABLES Final ResultPerforming OrganizationAddressCity/State/ZIP CodePhone Number [facility] ([facility]) [address] [place] [address] * (ABNORMAL) CBC (07/22/2025 4:01 AM EST)ComponentValueRef RangeTest Method Analysis TimePerformed AtPathologist SignatureAuto WBC12.06(H)4.00 - 10.60 10*3/uL07/22/2025 4:29 AM [facility] ([facility])RBC2.38(L)4.20 - 5.70 10*6/uL07/22/2025 4:29 AM [facility] ([facility])Hemoglobin8.0(L)13.0 - 17.0 g/dL07/22/2025 4:29 AM [facility] ([facility])Wtzfikjomr43.2(L)39.0 - 50.0 %07/22/2025 4:29 AM [facility] ([facility])IQP904.7(H)82.0 - 98.0 fL07/22/2025 4:29 AM [facility] ([facility])MCH33.6(H)27.0 - 33.0 pg07/22/2025 4:29 AM [facility] ([facility])MCHC33.132.0 - 35.0 g/dL 07/22/2025 4:29 AM [facility] ([facility])RDW17.7(H)11.5 - 15.0 % 07/22/2025 4:29 AM [facility] ([facility])Vhkokcxkz652956 - 400 10*3/uL 07/22/2025 4:29 AM [facility] ([facility])Specimen (Source)Anatomical Location / LateralityCollection Method / VolumeCollection TimeReceived Time BloodVenous blood specimen / UnknownVenipuncture / Ysbkumh5107/22/2025 4:01 AM EST07/22/2025 4:15 AM EST Narrative Authorizing ProviderResult TypeResult StatusKunatuan FAJARDO BLOOD ORDERABLES Final ResultPerforming OrganizationAddressCity/State/ZIP CodePhone Number [facility] ([facility]) [address] [place] [address] * Tacrolimus level (07/21/2025 3:40 AM EST)ComponentValueRef RangeTest Method Analysis TimePerformed AtPathologist SignatureTacrolimus Lvl8.95.0 - 20.0 ng/mL07/21/2025 9:22 AM [facility] ([facility])Comment:The CM STUNT DRIVER Tacrolimus assay is a delayed one-step immunoassay for the quantitative determination of tacrolimus in human whole blood using the chemiluminescent microparticle immunoassay (CMIA) technology with flexible assay protocols, referred to as Chemiflex.Specimen (Source)Anatomical Location / LateralityCollection Method / VolumeCollection TimeReceived TimeBloodVenous blood specimen / UnknownVenipuncture / Jqxezrn0307/21/2025 3:40 AM EST 07/21/2025 4:15 AM EST Narrative Authorizing ProviderResult TypeResult StatusKunal Lobito MDLAB BLOOD ORDERABLES Final ResultPerforming OrganizationAddressCity/State/ZIP CodePhone Number [facility] ([facility]) [address] [place] [phone] * Phosphorus (07/21/2025 3:40 AM EST)ComponentValueRef RangeTest MethodAnalysis TimePerformed AtPathologist SignaturePhosphorus3.32.5 - 5.0 mg/dL07/21/2025 4:40 AM [facility] ([facility])Specimen (Source)Anatomical Location / LateralityCollection Method / VolumeCollection TimeReceived TimeBloodVenous blood specimen / UnknownVenipuncture / Tlrogzt0607/21/2025 3:40 AM EST07/21/2025 4:14 AM EST Narrative Authorizing ProviderResult TypeResult StatusKunal Lobito MDLAB BLOOD ORDERABLES Final ResultPerforming OrganizationAddressCity/State/ZIP CodePhone Number [facility] ([facility]) [address] [place] [address] * (ABNORMAL) Magnesium (07/21/2025 3:40 AM EST)ComponentValueRef RangeTest MethodAnalysis TimePerformed AtPathologist SignatureMagnesium1.7(L)1.9 - 2.7 mg/dL07/21/2025 4:40 AM [facility] ([facility])Specimen (Source) Anatomical Location / LateralityCollection Method / VolumeCollection Time Received TimeBloodVenous blood specimen / UnknownVenipuncture / Unknown 07/21/2025 3:40 AM EST07/21/2025 4:14 AM EST Narrative Authorizing ProviderResult TypeResult StatusKunal Lobito FAJARDO BLOOD ORDERABLES Final ResultPerforming OrganizationAddressCity/State/ZIP CodePhone Number [facility] ([facility]) [address] [place] [address] * (ABNORMAL) Comprehensive metabolic panel (07/21/2025 3:40 AM EST)Component ValueRef RangeTest MethodAnalysis TimePerformed AtPathologist SignatureSodium 268392 - 145 mmol/L109/21/2024 4:40 AM [facility] ([facility])Potassium 3.83.5 - 5.1 mmol/L109/21/2024 4:40 AM [facility] ([facility])Xefglncg532 (H)98 - 107 mmol/L109/21/2024 4:40 AM [facility] ([facility])IF83963 - 31 mmol/L109/21/2024 4:40 AM [facility] ([facility])Anion Drn272 - 20 mmol/L109/21/2024 4:40 AM [facility] ([facility])BUN38(H)7 - 25 mg/dL 07/21/2025 4:40 AM [facility] ([facility])Creatinine1.37(H)0.70 - 1.30 mg/dL07/21/2025 4:40 AM [facility] ([facility])BUN/Creatinine Ratio27.7 07/21/2025 4:40 AM [facility] ([facility])Qmkngkf724(H)70 - 100 mg/dL 07/21/2025 4:40 AM [facility] ([facility])Calcium8.4(L)8.6 - 10.3 mg/dL 07/21/2025 4:40 AM [facility] ([facility])AST12(L)13 - 39 U/L109/21/2024 4:40 AM [facility] ([facility])ALT (SGPT)167 - 52 U/L12/ 4:40 AM [facility] ([facility])Alkaline Wqvzveiisoy1272 - 104 U/L109/21/2024 4:40 AM [facility] ([facility])Total Protein5.0(L)6.0 - 8.3 g/dL07/21/2025 4:40 AM [facility] ([facility])Albumin3.4(L)3.5 - 5.7 g/dL07/21/2025 4:40 AM [facility] ([facility])Total Bilirubin0.40.3 - 1.0 mg/dL 07/21/2025 4:40 AM [facility] ([facility])eGFR55.5(L)>60.0 mL/min/1.73m* 4:40 AM [facility] ([facility])Comment:[facility]???s estimated glomerular filtration rate (eGFR) will [...] TimeReceived TimeBloodVenous blood specimen / UnknownVenipuncture / Nqyrtfw4807/21/2025 3:40 AM EST07/21/2025 4:14 AM EST Narrative Authorizing ProviderResult TypeResult StatusKunal Lobito FAJARDO BLOOD ORDERABLES Final ResultPerforming OrganizationAddressCity/State/ZIP CodePhone Number [facility] ([facility]) [address] [place] [address] * (ABNORMAL) CBC (07/21/2025 3:40 AM EST)ComponentValueRef RangeTest Method Analysis TimePerformed AtPathologist SignatureAuto WBC19.07(H)4.00 - 10.60 10*3/uL07/21/2025 4:29 AM [facility] ([facility])RBC2.65(L)4.20 - 5.70 10*6/uL07/21/2025 4:29 AM [facility] ([facility])Hemoglobin8.9(L)13.0 - 17.0 g/dL07/21/2025 4:29 AM [facility] ([facility])Xhdryfkmgq75.2(L)39.0 - 50.0 %07/21/2025 4:29 AM [facility] ([facility])TBB035.6(H)82.0 - 98.0 fL07/21/2025 4:29 AM [facility] ([facility])MCH33.6(H)27.0 - 33.0 pg07/21/2025 4:29 AM [facility] ([facility])MCHC32.732.0 - 35.0 g/dL 07/21/2025 4:29 AM [facility] ([facility])RDW17.4(H)11.5 - 15.0 % 07/21/2025 4:29 AM [facility] ([facility])Zcmbxoiaf771675 - 400 10*3/uL 07/21/2025 4:29 AM [facility] ([facility])Specimen (Source)Anatomical Location / LateralityCollection Method / VolumeCollection TimeReceived Time BloodVenous blood specimen / UnknownVenipuncture / Vqntcba5507/21/2025 3:40 AM EST07/21/2025 4:15 AM EST Narrative Authorizing ProviderResult TypeResult StatusKunal Lobito JOSEPHLAB BLOOD ORDERABLES Final ResultPerforming OrganizationAddressCity/State/ZIP CodePhone Number [facility] ([facility]) [address] [place] [address] * (ABNORMAL) Urine culture, routine (07/20/2025 2:37 PM EST)ComponentValueRef RangeTest MethodAnalysis TimePerformed AtPathologist SignatureUrine Culture >100,000 CFU/Ml Pseudomonas aeruginosa MDRO(AA) JES 07/22/2025 10:21 AM [facility] ([facility])Specimen (Source)Anatomical Location / LateralityCollection Method / VolumeCollection TimeReceived TimeUrine Urine specimen obtained by clean catch procedure / UnknownNon-blood Collection / Snsslzz6907/20/2025 2:37 PM EST07/20/2025 2:43 PM EST Narrative [facility] ([facility]) - 07/22/2025 10:21 AM EST OrganismAntibioticMethodSusceptibilityPseudomonas aeruginosa MDROCefepimeMIC 16 ug/ml: Resistant Pseudomonas aeruginosa MDROCiprofloxacinMIC 1 ug/ml: Intermediate Pseudomonas aeruginosa MDROLevofloxacinMIC 2 ug/ml: Intermediate Pseudomonas aeruginosa MDROMeropenemMIC 1 ug/ml: Susceptible Pseudomonas aeruginosa MDROPiperacillin + TazobactamMIC 32/4 ug/ml: Intermediate Pseudomonas aeruginosa MDROTobramycinMIC 8 ug/ml: Intermediate Comment:If piperacillin-tazobactam JES value is >16/4 ug/ml alternative therapy is recommended.Authorizing ProviderResult TypeResult StatusNicole Caren [facility] MICROBIOLOGY - GENERAL ORDERABLESFinal ResultPerforming OrganizationAddress City/State/ZIP CodePhone Number [facility] ([facility]) [address] [place] [address] * (ABNORMAL) Urinalysis microscopic with reflex culture (07/20/2025 2:37 PM EST) ComponentValueRef RangeTest MethodAnalysis TimePerformed AtPathologist SignatureRBC, UrineNone SeenNone Seen, 0-2 /HPF07/20/2025 3:19 PM [facility] ([facility])WBC, Urine>50(A)None Seen, 0-2 /HPF07/20/2025 3:19 PM EST [facility] ([facility])Squamous Epithelial, UrineNone SeenNone Seen, Occasional, Few /LPF109/20/2024 3:19 PM [facility] ([facility])Mucus, UrineOccasionalNone Seen, Occasional, Few /LPF109/20/2024 3:19 PM [facility] ([facility])WBC Clumps, UrinePresent(A)None Seen /HPF07/20/2025 3:19 PM [facility] ([facility])Specimen (Source)Anatomical Location / LateralityCollection Method / VolumeCollection TimeReceived TimeUrineUrine specimen obtained by clean catch procedure / UnknownNon-blood Collection / Zeuqslv3407/20/2025 2:37 PM EST07/20/2025 2:43 PM EST Narrative Authorizing ProviderResult TypeResult StatusNicole Caren [facility] URINE ORDERABLESFinal ResultPerforming OrganizationAddressCity/State/ZIP CodePhone Number [facility] ([facility]) [address] [place] [address] * (ABNORMAL) Urinalysis with reflex culture (07/20/2025 2:37 PM EST)Component ValueRef RangeTest MethodAnalysis TimePerformed AtPathologist SignatureColor, UrineYellowYellow, Light Yellow, Vjdsywbkm40/19/2025 3:19 PM [facility] ([facility])Clarity, UrineCloudy(A)Clear07/20/2025 3:19 PM [facility] ([facility])pH, Urine6.05.0 - 8.0 pH07/20/2025 3:19 PM [facility] ([facility])Leukocytes, UrineLarge(A)Bwscglek14/19/2025 3:19 PM [facility] ([facility])Nitrite, XfifhAacpjjynFxngpvaz54/19/2025 3:19 PM [facility] ([facility])Protein, UrineNegativeNegative mg/dL07/20/2025 3:19 PM [facility] ([facility])Glucose, UrineNormalNormal mg/dL07/20/2025 3:19 PM EST [facility] ([facility])Bilirubin, TyqtfBktmwznaOwtwlort30/19/2025 3:19 PM [facility] ([facility])Specific [place], Urine<1.005(L)1.010 - 1.030 07/20/2025 3:19 PM [facility] ([facility])Ketones, UrineNegativeNegative mg/dL07/20/2025 3:19 PM [facility] ([facility])Blood, UrineNegative Qugbkkbr63/19/2025 3:19 PM [facility] ([facility])Urobilinogen, Urine NormalNormal mg/dL07/20/2025 3:19 PM [facility] ([facility])Specimen (Source)Anatomical Location / LateralityCollection Method / VolumeCollection TimeReceived TimeUrineUrine specimen obtained by clean catch procedure / UnknownNon-blood Collection / Wtfzbst7307/20/2025 2:37 PM EST07/20/2025 2:43 PM EST Narrative Authorizing ProviderResult TypeResult StatusNicole Caren CNPTONO URINE ORDERABLESFinal ResultPerforming OrganizationAddressCity/State/ZIP CodePhone Number [facility] ([facility]) [address] [place] [address] * XR chest 1 view (07/20/2025 12:20 PM EST)Anatomical RegionLateralityModality ChestComputed RadiographySpecimen (Source)Anatomical Location / Laterality Collection Method / VolumeCollection TimeReceived Time07/20/2025 12:38 PM EST Impressions 07/20/2025 12:58 PM EST Similar bibasilar opacities which may represent atelectasis or pneumonia. Approved by:Beth Hauser07/20/2025 12:41 PM. Michel Chen MD,have reviewed the image(s) and agree with [...] atelectasis orpneumonia. Approved by:Beth Hauser07/20/2025 12:41 PM. IMichel MD,have reviewed the image(s) and agree with the findingsin this report. Electronically signed: Michel Valentine MD. Authorizing ProviderResult TypeResult StatusBelen Fabian [facility] XR PROCEDURES Final Result * Rapid influenza A/B PCR (07/20/2025 11:21 AM EST)ComponentValueRef RangeTest MethodAnalysis TimePerformed AtPathologist SignatureRapid Influenza A PCR NnyuuekbYvhwmzwk08/19/2025 12:11 PM [facility] ([facility])Rapid Influenza B XRZAtxsqkufNolbalhn41/19/2025 12:11 PM [facility] ([facility])Specimen (Source)Anatomical Location / LateralityCollection Method / VolumeCollection TimeReceived TimeSwabNasal structure / UnknownNon-blood Collection / Xfgvycp3707/20/2025 11:21 AM EST07/20/2025 11:38 AM EST Narrative [facility] ([facility]) - 07/20/2025 12:11 PM EST Testing methodology utilizes isothermal nucleic acid amplification technology for the differential and qualitative detection of Influenza A and Influenza B viral nucleic acids. Authorizing ProviderResult TypeResult Natividad Fabian [facility] MICROBIOLOGY - GENERAL ORDERABLESFinal ResultPerforming OrganizationAddressCity/State/ZIP Code Phone Number [facility]) [address] [place], [place] [phone] * Blood culture, peripheral #2 (07/20/2025 10:55 AM EST)ComponentValueRef Range Test MethodAnalysis TimePerformed AtPathologist SignatureBlood CultureNo growth at 5 days JES 07/25/2025 12:01 PM [facility] ([facility])Specimen (Source)Anatomical Location / LateralityCollection Method / VolumeCollection TimeReceived TimeBlood Venous blood specimen / UnknownVenipuncture / Becihgp8407/20/2025 10:55 AM EST 07/20/2025 11:04 AM EST Narrative Authorizing ProviderResult TypeResult StatusGrazyna Briseno [facility] MICROBIOLOGY - GENERAL ORDERABLESFinal ResultPerforming OrganizationAddress City/State/ZIP CodePhone Number [facility] ([facility]) [address] [place] [address] * Blood culture, peripheral #1 (07/20/2025 10:55 AM EST)ComponentValueRef Range Test MethodAnalysis TimePerformed AtPathologist SignatureBlood CultureNo growth at 5 days JES 07/25/2025 12:01 PM [facility] ([facility])Specimen (Source)Anatomical Location / LateralityCollection Method / VolumeCollection TimeReceived TimeBlood Venous blood specimen / UnknownVenipuncture / Waxemmo9207/20/2025 10:55 AM EST 07/20/2025 11:04 AM EST Narrative Authorizing ProviderResult TypeResult StatusGrazyna Briseno [facility] MICROBIOLOGY - GENERAL ORDERABLESFinal ResultPerforming OrganizationAddress City/State/ZIP CodePhone Number [facility] ([facility]) [address] [place] [address] * (ABNORMAL) CK (07/20/2025 5:15 AM EST)ComponentValueRef RangeTest Method Analysis TimePerformed AtPathologist SignatureTotal CK<10.0(L)30.0 - 223.0 U/L 07/20/2025 5:46 PM [facility] [facility])Specimen (Source)Anatomical Location / LateralityCollection Method / VolumeCollection TimeReceived Time BloodVenous blood specimen / UnknownVenipuncture / Vskldsl1207/20/2025 5:15 AM EST07/20/2025 5:52 AM EST Narrative Authorizing ProviderResult TypeResult StatusPhilip Jones [facility] BLOOD ORDERABLESFinal ResultPerforming OrganizationAddressFire[facility]/State/ZIP CodePhone Number [facility]) [address] [place] [address] * Tacrolimus level (07/20/2025 5:15 AM EST)ComponentValueRef RangeTest Method Analysis TimePerformed AtPathologist SignatureTacrolimus Lvl8.85.0 - 20.0 ng/mL07/20/2025 10:18 AM [facility])Comment:The CM STUNT DRIVER Tacrolimus assay is a delayed one-step immunoassay for the quantitative determination of tacrolimus in human whole blood using the chemiluminescent microparticle immunoassay (CMIA) technology with flexible assay protocols, referred to as Chemiflex.Specimen (Source)Anatomical Location / LateralityCollection Method / VolumeCollection TimeReceived TimeBloodVenous blood specimen / UnknownVenipuncture / Qlxewoc4407/20/2025 5:15 AM EST 07/20/2025 5:53 AM EST Narrative Authorizing ProviderResult TypeResult StatusJayjay Robin [facility] BLOOD ORDERABLES Final ResultPerforming OrganizationAddressCity/State/ZIP CodePhone Number [facility]) [address] [place] [address] * (ABNORMAL) Phosphorus (07/20/2025 5:15 AM EST)ComponentValueRef RangeTest MethodAnalysis TimePerformed AtPathologist SignaturePhosphorus2.0(L)2.5 - 5.0 mg/dL07/20/2025 6:17 AM [facility])Specimen (Source) Anatomical Location / LateralityCollection Method / VolumeCollection Time Received TimeBloodVenous blood specimen / UnknownVenipuncture / Unknown 07/20/2025 5:15 AM EST07/20/2025 5:52 AM EST Narrative Authorizing ProviderResult TypeResult StatusJayjay Robin [facility] BLOOD ORDERABLES Final ResultPerforming OrganizationAddressCity/State/ZIP CodePhone Number [facility]) [address] [place] [address] * (ABNORMAL) Magnesium (07/20/2025 5:15 AM EST)ComponentValueRef RangeTest MethodAnalysis TimePerformed AtPathologist SignatureMagnesium1.7(L)1.9 - 2.7 mg/dL07/20/2025 6:17 AM [facility])Specimen (Source) Anatomical Location / LateralityCollection Method / VolumeCollection Time Received TimeBloodVenous blood specimen / UnknownVenipuncture / Unknown 07/20/2025 5:15 AM EST07/20/2025 5:52 AM EST Narrative Authorizing ProviderResult TypeResult StatusJayjay Robin MDLAB BLOOD ORDERABLES Final ResultPerforming OrganizationAddressCity/State/ZIP CodePhone Number [facility]) [address] [place] [address] * (ABNORMAL) Comprehensive metabolic panel (07/20/2025 5:15 AM EST)Component ValueRef RangeTest MethodAnalysis TimePerformed AtPathologist SignatureSodium 423173 - 145 mmol/L109/20/2024 6:17 AM [facility] ([facility])Potassium 4.13.5 - 5.1 mmol/L109/20/2024 6:17 AM [facility] ([facility])Wreyytms660 (H)98 - 107 mmol/L109/20/2024 6:17 AM [facility] ([facility])CO220(L)21 - 31 mmol/L109/20/2024 6:17 AM [facility] ([facility])Anion Nsz509 - 20 mmol/L109/20/2024 6:17 AM [facility] ([facility])BUN33(H)7 - 25 mg/dL 07/20/2025 6:17 AM [facility] ([facility])Creatinine1.220.70 - 1.30 mg/dL07/20/2025 6:17 AM [facility] ([facility])BUN/Creatinine Ratio27.0 07/20/2025 6:17 AM [facility] ([facility])Yfdbber373(H)70 - 100 mg/dL 07/20/2025 6:17 AM [facility] ([facility])Calcium8.4(L)8.6 - 10.3 mg/dL 07/20/2025 6:17 AM [facility] ([facility])KSD6448 - 39 U/L109/20/2024 6:17 AM [facility] ([facility])ALT (SGPT)187 - 52 U/L109/20/2024 6:17 AM [facility] ([facility])Alkaline Vgbkqecgbhh58867 - 104 U/L109/20/2024 6:17 AM [facility] ([facility])Total Protein5.2(L)6.0 - 8.3 g/dL 07/20/2025 6:17 AM [facility] ([facility])Albumin3.53.5 - 5.7 g/dL 07/20/2025 6:17 AM [facility] ([facility])Total Bilirubin0.50.3 - 1.0 mg/dL07/20/2025 6:17 AM [facility] ([facility])eGFR63.8>60.0 mL/min/1.73m* 6:17 AM [facility] ([facility])Comment:[facility]???s estimated glomerular filtration rate (eGFR) will [...] TimeReceived TimeBloodVenous blood specimen / UnknownVenipuncture / Uuwsvst9107/20/2025 5:15 AM EST07/20/2025 5:52 AM EST Narrative Authorizing ProviderResult TypeResult StatusKunal Lobito FAJARDO BLOOD ORDERABLES Final ResultPerforming OrganizationAddressCity/State/ZIP CodePhone Number [facility] ([facility]) [address] [place] [address] * (ABNORMAL) CBC (07/20/2025 5:15 AM EST)ComponentValueRef RangeTest Method Analysis TimePerformed AtPathologist SignatureAuto WBC21.21(H)4.00 - 10.60 10*3/uL07/20/2025 6:11 AM [facility] ([facility])RBC2.69(L)4.20 - 5.70 10*6/uL07/20/2025 6:11 AM [facility] ([facility])Hemoglobin9.0(L)13.0 - 17.0 g/dL07/20/2025 6:11 AM [facility] ([facility])Dwygwjceke75.1(L)39.0 - 50.0 %07/20/2025 6:11 AM [facility] ([facility])APB316.5(H)82.0 - 98.0 fL07/20/2025 6:11 AM [facility] ([facility])MCH33.5(H)27.0 - 33.0 pg07/20/2025 6:11 AM [facility] ([facility])MCHC32.032.0 - 35.0 g/dL 07/20/2025 6:11 AM [facility] ([facility])RDW17.2(H)11.5 - 15.0 % 07/20/2025 6:11 AM [facility] ([facility])Rvrksvwfs285256 - 400 10*3/uL 07/20/2025 6:11 AM [facility] ([facility])Specimen (Source)Anatomical Location / LateralityCollection Method / VolumeCollection TimeReceived Time BloodVenous blood specimen / UnknownVenipuncture / Ksvgulo4707/20/2025 5:15 AM EST07/20/2025 5:54 AM EST Narrative Authorizing ProviderResult TypeResult StatusJayjay FAJARDO BLOOD ORDERABLES Final ResultPerforming OrganizationAddressCity/State/ZIP CodePhone Number [facility]) [address] [place] [address] * (ABNORMAL) POCT glucose meter (07/19/2025 7:19 AM EST)ComponentValueRef Range Test MethodAnalysis TimePerformed AtPathologist SignatureGlucose CJT288(H)70 - 105 mg/dL07/19/2025 7:29 AM [facility] ([facility])Comment:jraiSpecimen (Source)Anatomical Location / LateralityCollection Method / VolumeCollection TimeReceived TimeBloodCapillary blood specimen / Trhfdwu2807/19/2025 7:19 AM EST 07/19/2025 7:29 AM EST Narrative [facility] ([facility]) - 07/19/2025 7:29 AM EST Waived Testing in the ED is performed under the ED CLIA certificate #[id number]. Authorizing ProviderResult TypeResult StatusJayjay FAJARDO BLOOD ORDERABLES Final ResultPerforming OrganizationAddressCity/State/ZIP CodePhone Number [facility]) [address] [place] [address] * Tacrolimus level (07/19/2025 5:18 AM EST)ComponentValueRef RangeTest Method Analysis TimePerformed AtPathologist SignatureTacrolimus Lvl6.25.0 - 20.0 ng/mL07/19/2025 10:49 AM [facility] ([facility])Comment:The CM [employer] DRIVER Tacrolimus assay is a delayed one-step immunoassay for the quantitative determination of tacrolimus in human whole blood using the chemiluminescent microparticle immunoassay (CMIA) technology with flexible assay protocols, referred to as Chemiflex.Specimen (Source)Anatomical Location / LateralityCollection Method / VolumeCollection TimeReceived TimeBloodVenous blood specimen / UnknownVenipuncture / Ttguixs7307/19/2025 5:18 AM EST 07/19/2025 5:42 AM EST Narrative Authorizing ProviderResult TypeResult StatusKnicole FAJARDO BLOOD ORDERABLES Final ResultPerforming OrganizationAddressCity/State/ZIP CodePhone Number [facility]) [address] [place] [address] * (ABNORMAL) Phosphorus (07/19/2025 5:18 AM EST)ComponentValueRef RangeTest MethodAnalysis TimePerformed AtPathologist SignaturePhosphorus2.2(L)2.5 - 5.0 mg/dL07/19/2025 6:14 AM [facility] ([facility])Specimen (Source) Anatomical Location / LateralityCollection Method / VolumeCollection Time Received TimeBloodVenous blood specimen / UnknownVenipuncture / Unknown 07/19/2025 5:18 AM EST07/19/2025 5:42 AM EST Narrative Authorizing ProviderResult TypeResult StatusJayjay FAJARDO BLOOD ORDERABLES Final ResultPerforming OrganizationAddressCity/State/ZIP CodePhone Number [facility] ([facility]) [address] [place] [address] * (ABNORMAL) Magnesium (07/19/2025 5:18 AM EST)ComponentValueRef RangeTest MethodAnalysis TimePerformed AtPathologist SignatureMagnesium1.7(L)1.9 - 2.7 mg/dL07/19/2025 6:14 AM [facility])Specimen (Source) Anatomical Location / LateralityCollection Method / VolumeCollection Time Received TimeBloodVenous blood specimen / UnknownVenipuncture / Unknown 07/19/2025 5:18 AM EST07/19/2025 5:42 AM EST Narrative Authorizing ProviderResult TypeResult StatusKunal Lobito FAJARDO BLOOD ORDERABLES Final ResultPerforming OrganizationAddressCity/State/ZIP CodePhone Number [facility] ([facility]) [address] [place] [address] * (ABNORMAL) Comprehensive metabolic panel (07/19/2025 5:18 AM EST)Component ValueRef RangeTest MethodAnalysis TimePerformed AtPathologist SignatureSodium 644596 - 145 mmol/L109/19/2024 6:14 AM [facility] ([facility])Potassium 4.23.5 - 5.1 mmol/L109/19/2024 6:14 AM [facility] ([facility])Xklhlnzk513 (H)98 - 107 mmol/L109/19/2024 6:14 AM [facility] ([facility])JA67277 - 31 mmol/L109/19/2024 6:14 AM [facility] ([facility])Anion Wqe008 - 20 mmol/L109/19/2024 6:14 AM [facility] ([facility])BUN35(H)7 - 25 mg/dL 07/19/2025 6:14 AM [facility] ([facility])Creatinine1.37(H)0.70 - 1.30 mg/dL07/19/2025 6:14 AM [facility] ([facility])BUN/Creatinine Ratio25.5 07/19/2025 6:14 AM [facility] ([facility])Rucqvib727(H)70 - 100 mg/dL 07/19/2025 6:14 AM [facility] ([facility])Calcium8.2(L)8.6 - 10.3 mg/dL 07/19/2025 6:14 AM [facility] ([facility])VYP8645 - 39 U/L109/19/2024 6:14 AM [facility] ([facility])ALT (SGPT)187 - 52 U/L109/19/2024 6:14 AM [facility] ([facility])Alkaline Ufeqnlhwdla87427 - 104 U/L109/19/2024 6:14 AM [facility] ([facility])Total Protein5.0(L)6.0 - 8.3 g/dL 07/19/2025 6:14 AM [facility] ([facility])Albumin3.4(L)3.5 - 5.7 g/dL 07/19/2025 6:14 AM [facility] ([facility])Total Bilirubin0.40.3 - 1.0 mg/dL07/19/2025 6:14 AM [facility] ([facility])eGFR55.5(L)>60.0 mL/min/1.73m* 6:14 AM [facility] ([facility])Comment:[facility]???s estimated glomerular filtration rate (eGFR) will [...] TimeReceived TimeBloodVenous blood specimen / UnknownVenipuncture / Uunsiyk8507/19/2025 5:18 AM EST07/19/2025 5:42 AM EST Narrative Authorizing ProviderResult TypeResult StatusKunal Lobito FAJARDO BLOOD ORDERABLES Final ResultPerforming OrganizationAddressCity/State/ZIP CodePhone Number [facility] ([facility]) [address] [place] [address] * (ABNORMAL) CBC (07/19/2025 5:18 AM EST)ComponentValueRef RangeTest Method Analysis TimePerformed AtPathologist SignatureAuto WBC13.15(H)4.00 - 10.60 10*3/uL07/19/2025 5:49 AM [facility] ([facility])RBC2.64(L)4.20 - 5.70 10*6/uL07/19/2025 5:49 AM [facility] ([facility])Hemoglobin8.8(L)13.0 - 17.0 g/dL07/19/2025 5:49 AM [facility] ([facility])Qtpwhrfeqd17.3(L)39.0 - 50.0 %07/19/2025 5:49 AM [facility] ([facility])CZH488.4(H)82.0 - 98.0 fL07/19/2025 5:49 AM [facility] ([facility])MCH33.3(H)27.0 - 33.0 pg07/19/2025 5:49 AM [facility] ([facility])MCHC32.232.0 - 35.0 g/dL 07/19/2025 5:49 AM [facility] ([facility])RDW17.1(H)11.5 - 15.0 % 07/19/2025 5:49 AM [facility] ([facility])Nbzyxqlye284761 - 400 10*3/uL 07/19/2025 5:49 AM [facility] ([facility])Specimen (Source)Anatomical Location / LateralityCollection Method / VolumeCollection TimeReceived Time BloodVenous blood specimen / UnknownVenipuncture / Zfwhzyp0707/19/2025 5:18 AM EST07/19/2025 5:42 AM EST Narrative Authorizing ProviderResult TypeResult StatusKunal Lobito FAJARDO BLOOD ORDERABLES Final ResultPerforming OrganizationAddressCity/State/ZIP CodePhone Number [facility] ([facility]) [address] [place] [address] * (ABNORMAL) Vitamin D 25 hydroxy (07/18/2025 5:32 AM EST)ComponentValueRef RangeTest MethodAnalysis TimePerformed AtPathologist SignatureVit D, 25-Jypspmq41.0(L)30.0 - 80.0 ng/mL07/18/2025 1:13 PM [facility])Comment:>80.0 Toxicity possibleSpecimen (Source)Anatomical Location / LateralityCollection Method / VolumeCollection TimeReceived TimeBloodVenous blood specimen / UnknownVenipuncture / Afrmftg65/ 5:32 AM EST07/18/2025 5:57 AM EST Narrative Authorizing ProviderResult TypeResult StatusWendy FAJARDO BLOOD ORDERABLES Final ResultPerforming OrganizationAddressCity/State/ZIP CodePhone Number [facility]) [address] [facility] [place] [address] * PTH, intact (07/18/2025 5:32 AM EST)ComponentValueRef RangeTest MethodAnalysis TimePerformed AtPathologist EogjrpzcwVLI1782 - 88 pg/mL07/18/2025 11:43 AM [facility] ([facility])Specimen (Source)Anatomical Location / Laterality Collection Method / VolumeCollection TimeReceived TimeBloodVenous blood specimen / UnknownVenipuncture / Auoexar3907/18/2025 5:32 AM EST07/18/2025 5:57 AM EST Narrative Authorizing ProviderResult TypeResult StatusWendy FAJARDO BLOOD ORDERABLES Final ResultPerforming OrganizationAddressCity/State/ZIP CodePhone Number [facility]) [address] [place] [address] * Tacrolimus level (07/18/2025 5:32 AM EST)ComponentValueRef RangeTest Method Analysis TimePerformed AtPathologist SignatureTacrolimus Lvl7.45.0 - 20.0 ng/mL07/18/2025 11:10 AM [facility])Comment:The CM [employer] DRIVER Tacrolimus assay is a delayed one-step immunoassay for the quantitative determination of tacrolimus in human whole blood using the chemiluminescent microparticle immunoassay (CMIA) technology with flexible assay protocols, referred to as Chemiflex.Specimen (Source)Anatomical Location / LateralityCollection Method / VolumeCollection TimeReceived TimeBloodVenous blood specimen / UnknownVenipuncture / Hrohxph1407/18/2025 5:32 AM EST 07/18/2025 5:59 AM EST Narrative Authorizing ProviderResult TypeResult StatusJayjay FAJARDO BLOOD ORDERABLES Final ResultPerforming OrganizationAddressCity/State/ZIP CodePhone Number [facility]) [address] [place] [address] * (ABNORMAL) Phosphorus (07/18/2025 5:32 AM EST)ComponentValueRef RangeTest MethodAnalysis TimePerformed AtPathologist SignaturePhosphorus2.4(L)2.5 - 5.0 mg/dL07/18/2025 6:35 AM [facility])Specimen (Source) Anatomical Location / LateralityCollection Method / VolumeCollection Time Received TimeBloodVenous blood specimen / UnknownVenipuncture / Unknown 07/18/2025 5:32 AM EST07/18/2025 5:57 AM EST Narrative Authorizing ProviderResult TypeResult StatusJayjay Robin DCLAB BLOOD ORDERABLES Final ResultPerforming OrganizationAddressCity/State/ZIP CodePhone Number [facility]) [address] [place] [address] * (ABNORMAL) Magnesium (07/18/2025 5:32 AM EST)ComponentValueRef RangeTest MethodAnalysis TimePerformed AtPathologist SignatureMagnesium1.8(L)1.9 - 2.7 mg/dL07/18/2025 6:35 AM [facility])Specimen (Source) Anatomical Location / LateralityCollection Method / VolumeCollection Time Received TimeBloodVenous blood specimen / UnknownVenipuncture / Unknown 07/18/2025 5:32 AM EST07/18/2025 5:57 AM EST Narrative Authorizing ProviderResult TypeResult StatusJayjay FAJARDO BLOOD ORDERABLES Final ResultPerforming OrganizationAddressCity/State/ZIP CodePhone Number [facility]) [address] [place] [address] * (ABNORMAL) Comprehensive metabolic panel (07/18/2025 5:32 AM EST)Component ValueRef RangeTest MethodAnalysis TimePerformed AtPathologist SignatureSodium 904800 - 145 mmol/L109/18/2024 6:35 AM [facility])Potassium 4.03.5 - 5.1 mmol/L109/18/2024 6:35 AM [facility])Uolkydka276 (H)98 - 107 mmol/L109/18/2024 6:35 AM [facility])AQ31804 - 31 mmol/L109/18/2024 6:35 AM [facility] ([facility])Anion Gap97 - 20 mmol/L 07/18/2025 6:35 AM [facility] ([facility])BUN36(H)7 - 25 mg/dL07/18/2025 6:35 AM [facility] ([facility])Creatinine1.41(H)0.70 - 1.30 mg/dL 07/18/2025 6:35 AM [facility] ([facility])BUN/Creatinine Ratio25.5 07/18/2025 6:35 AM [facility] ([facility])Majquyd035(H)70 - 100 mg/dL 07/18/2025 6:35 AM [facility] ([facility])Calcium8.3(L)8.6 - 10.3 mg/dL 07/18/2025 6:35 AM [facility] ([facility])QDK6782 - 39 U/L109/18/2024 6:35 AM [facility] ([facility])ALT (SGPT)197 - 52 U/L109/18/2024 6:35 AM [facility] ([facility])Alkaline Tsppjghoegh110(H)34 - 104 U/L109/18/2024 6:35 AM [facility] ([facility])Total Protein5.2(L)6.0 - 8.3 g/dL 07/18/2025 6:35 AM [facility] ([facility])Albumin3.63.5 - 5.7 g/dL 07/18/2025 6:35 AM [facility] ([facility])Total Bilirubin0.40.3 - 1.0 mg/dL07/18/2025 6:35 AM [facility] ([facility])eGFR53.6(L)>60.0 mL/min/1.73m* 6:35 AM [facility] ([facility])Comment:[facility]???s estimated glomerular filtration rate (eGFR) will [...] TimeReceived TimeBloodVenous blood specimen / UnknownVenipuncture / Psarkcz4807/18/2025 5:32 AM EST07/18/2025 5:57 AM EST Narrative Authorizing ProviderResult TypeResult StatusKunal Lobito FAJARDO BLOOD ORDERABLES Final ResultPerforming OrganizationAddressCity/State/ZIP CodePhone Number [facility] ([facility]) [address] [place] [address] * (ABNORMAL) CBC (07/18/2025 5:32 AM EST)ComponentValueRef RangeTest Method Analysis TimePerformed AtPathologist SignatureAuto WBC13.61(H)4.00 - 10.60 10*3/uL07/18/2025 6:42 AM [facility] ([facility])RBC2.68(L)4.20 - 5.70 10*6/uL07/18/2025 6:42 AM [facility] ([facility])Hemoglobin8.9(L)13.0 - 17.0 g/dL07/18/2025 6:42 AM [facility] ([facility])Fsqgeadngb01.0(L)39.0 - 50.0 %07/18/2025 6:42 AM [facility] ([facility])VNJ331.7(H)82.0 - 98.0 fL07/18/2025 6:42 AM [facility] ([facility])MCH33.2(H)27.0 - 33.0 pg07/18/2025 6:42 AM [facility] ([facility])MCHC33.032.0 - 35.0 g/dL 07/18/2025 6:42 AM [facility] ([facility])RDW17.2(H)11.5 - 15.0 % 07/18/2025 6:42 AM [facility] ([facility])Sopxjoaax849568 - 400 10*3/uL 07/18/2025 6:42 AM [facility] ([facility])Specimen (Source)Anatomical Location / LateralityCollection Method / VolumeCollection TimeReceived Time BloodVenous blood specimen / UnknownVenipuncture / Quclllm8707/18/2025 5:32 AM EST07/18/2025 5:59 AM EST Narrative Authorizing ProviderResult TypeResult StatusKnicole Robin MDLAB BLOOD ORDERABLES Final ResultPerforming OrganizationAddressCity/State/ZIP CodePhone Number [facility] ([facility]) [address] [place] [address] * Single antigen class II (07/17/2025 12:17 PM EST)ComponentValueRef RangeTest MethodAnalysis TimePerformed AtPathologist SignatureTested [id number] 07/23/2025 2:42 PM [facility])CommentsNo Class II donor specific antibody zpzurqihhm93/22/2025 2:42 PM [facility]AC)Test MethodClass II Single Dirmzkb7007/23/2025 2:42 PM ESTUT TISSUE TYPING (HISTOTRAC)Comment:Class II Antigen MicrobeadsSigned BySigned by Abebe Stovall CHT([facility]) [facility] Ingot Caster Transplant Rsbozihqin87/22/2025 2:42 PM ESTUT TISSUE TYPING (HISTOTRAC)Specimen (Source)Anatomical Location / LateralityCollection Method / VolumeCollection TimeReceived TimeBloodVenous blood specimen / UnknownVenipuncture / Xinplzw9507/17/2025 12:17 PM EST 07/17/2025 12:22 PM EST Narrative Authorizing ProviderResult TypeResult StatusGrazyna Briseno [facility] BLOOD ORDERABLESFinal ResultPerforming OrganizationAddressCity/State/ZIP CodePhone Number [facility] TISSUE TYPING (HISTOTRAC) [address] [place] [address], * Single antigen class I (07/17/2025 12:17 PM EST)ComponentValueRef RangeTest MethodAnalysis TimePerformed AtPathologist SignatureTested [id number] 07/23/2025 2:42 PM ESTUT TISSUE TYPING (HISTOTRAC)Test MethodClass I Single Pledoaa8307/23/2025 2:42 PM [facility] TISSUE TYPING (HISTOTRAC)Signed BySigned by Abebe Stovall CHT([facility]) ALYSSA([facility]), Ingot Caster Transplant Jaegtxccsc39/22/2025 2:42 PM [facility] TISSUE TYPING (HISTOTRAC)Comment:Class I Antigen Microbeads CommentsNo Class I donor specific antibody ygqxvitzeu56/22/2025 2:42 PM EST [facility] TISSUE TYPING (HISTOTRAC)Specimen (Source)Anatomical Location / LateralityCollection Method / VolumeCollection TimeReceived TimeBloodVenous blood specimen / UnknownVenipuncture / Yskgshu9707/17/2025 12:17 PM EST 07/17/2025 12:22 PM EST Narrative Authorizing ProviderResult TypeResult StatusJordchaparro Briseno [facility] BLOOD ORDERABLESFinal ResultPerforming OrganizationAddressCity/State/ZIP CodePhone Number [facility] TISSUE TYPING (HISTOTRAC) [address] [place] [address], * BK virus, plasma, quantitative (07/17/2025 12:17 PM EST)ComponentValueRef RangeTest MethodAnalysis TimePerformed AtPathologist SignatureBK Virus Plasma InterpretationNot DetectedNot Chypjhzm02/22/2025 2:18 PM [facility] ([facility])BK Virus QuantitationNot DetectedNot Detected copies/mL07/23/2025 2:18 PM [facility] ([facility])Comment: Method: BK virus was measured by quantitative polymerase chain reaction using a fluorescent hydrolysis probe targeting the polyomavirus BK WAX PATTERN REPAIRER-1 gene. The lower limit of quantitation of the assay is 500 copies of BK genome per milliliter of plasma orurine, and any detectable BK DNA below that level is reported as: Detected, <500 copies/ml. Serial BK virus measurement can be used to monitor disease activity. (Reference: Crystal healyl. J CLIN MICRO 2004; 42:9058-1437). This test was developed and its performance characteristics determined by the [facility]. It has not been approved by the US Food and Drug Administration. However, such approval is not required for clinical implementation, and test results have been shown to be clinicallyuseful. This laboratory is CAP accredited and CLIA certified to perform high complexity testing. BK Virus Quant LogNot DetectedNot Detected copies/mL07/23/2025 2:18 PM [facility] ([facility])Specimen (Source)Anatomical Location / LateralityCollection Method / VolumeCollection TimeReceived TimeBloodVenous blood specimen / Unknown Venipuncture / Syhkfhi1107/17/2025 12:17 PM EST07/17/2025 12:25 PM EST Narrative Authorizing ProviderResult TypeResult StatusJoleighchaparro GarciaFinn [facility] BLOOD ORDERABLESFinal ResultPerforming OrganizationAddressCity/State/ZIP CodePhone Number [facility] ([facility]) [address] [place] [address] * CMV DNA, quantitative, NAAT, plasma (07/17/2025 12:17 PM EST)ComponentValueRef RangeTest MethodAnalysis TimePerformed AtPathologist SignatureCMV Qnt by NAAT, Plasma IU/mLNot DetectedIU/mL07/19/2025 5:12 PM [facility] ([facility])CMV Qnt by NAAT, Plasma log IU/mLNot Detectedlog IU/mL07/19/2025 5:12 PM [facility] ([facility])CMV Qnt by NAAT, Plasma InterpNot DetectedNot Owzryawf07/18/2025 5:12 PM [facility] ([facility])Comment: INTERPRETIVE INFORMATION: CMV by Quantitative NAAT, Plasma [...] commutability issues with the standard. Performed By: [facility] [address] [place] [address] [employer] Collection System Operator: Julián Wooten MD, PhD CLIA Number: [id number] Specimen (Source)Anatomical Location / LateralityCollection Method / Volume Collection TimeReceived TimeBloodVenous blood specimen / UnknownVenipuncture / Btlkfal5007/17/2025 12:17 PM EST07/17/2025 12:25 PM EST Narrative Authorizing ProviderResult TypeResult StatusJojazmin Briseno [facility] BLOOD ORDERABLESFinal ResultPerforming OrganizationAddressCity/State/ZIP CodePhone Number [facility] ([facility]) [address] [place] [address] * (ABNORMAL) Urine culture, routine (07/17/2025 12:12 PM EST)ComponentValueRef RangeTest MethodAnalysis TimePerformed AtPathologist SignatureUrine Culture >100,000 CFU/Ml Pseudomonas aeruginosa(A) JES 07/19/2025 1:00 PM [facility] ([facility])Specimen (Source)Anatomical Location / LateralityCollection Method / VolumeCollection TimeReceived TimeUrine Urine specimen obtained by clean catch procedure / UnknownNon-blood Collection / Chvcldk8407/17/2025 12:12 PM EST07/17/2025 1:12 PM EST Narrative OrganismAntibioticMethodSusceptibilityPseudomonas aeruginosaCefepimeMIC 8 ug/ml: Susceptible Pseudomonas aeruginosaCiprofloxacinMIC 0.5 ug/ml: Susceptible Pseudomonas aeruginosaLevofloxacinMIC 2 ug/ml: Intermediate Pseudomonas aeruginosaMeropenemMIC 1 ug/ml: Susceptible Pseudomonas aeruginosaPiperacillin + TazobactamMIC 32/4 ug/ml: Intermediate Pseudomonas aeruginosaTobramycinMIC <=2 ug/ml: Susceptible Comment:If piperacillin-tazobactam JES value is >16/4 ug/ml alternative therapy is recommended.Authorizing ProviderResult TypeResult StatusKnicole Robin [facility] MICROBIOLOGY - GENERAL ORDERABLESFinal ResultPerforming OrganizationAddress City/State/ZIP CodePhone Number [facility] ([facility]) [address] [place] [address] * (ABNORMAL) Urinalysis microscopic (07/17/2025 12:12 PM EST)ComponentValueRef RangeTest MethodAnalysis TimePerformed AtPathologist SignatureRBC, Urine0-2 None Seen, 0-2 /HPF07/17/2025 1:43 PM [facility] ([facility])WBC, Urine 6-10(A)None Seen, 0-2 /HPF07/17/2025 1:43 PM [facility] ([facility]) Squamous Epithelial, UrineNone SeenNone Seen, Occasional, Few /LPF109/17/2024 1:43 PM [facility] ([facility])Mucus, UrineOccasionalNone Seen, Occasional, Few /LP07/17/2025 1:43 PM [facility] ([facility])Specimen (Source)Anatomical Location / LateralityCollection Method / VolumeCollection TimeReceived TimeUrineUrine specimen obtained by clean catch procedure / UnknownNon-blood Collection / Bgbqfuc7407/17/2025 12:12 PM EST07/17/2025 1:12 PM EST Narrative Authorizing ProviderResult TypeResult Status[facility] URINE ORDERABLESFinal ResultPerforming OrganizationAddressty/State/ZIP CodePhone Number [facility]) [address] [place] [phone] * Creatinine, urine, random (07/17/2025 12:12 PM EST)ComponentValueRef RangeTest MethodAnalysis TimePerformed AtPathologist SignatureCreatinine, Ur53.026 - 299 mg/dL07/17/2025 1:53 PM [facility] ([facility])Specimen (Source) Anatomical Location / LateralityCollection Method / VolumeCollection Time Received TimeUrineUrine specimen obtained by clean catch procedure / Unknown Non-blood Collection / Jpgxcvr0707/17/2025 12:12 PM EST07/17/2025 1:12 PM EST Narrative Authorizing ProviderResult TypeResult Status[facility] URINE ORDERABLESFinal ResultPerforming OrganizationAddressty/State/ZIP CodePhone Number [facility]) [address] [place] [address] * Protein, urine, random (07/17/2025 12:12 PM EST)ComponentValueRef RangeTest MethodAnalysis TimePerformed AtPathologist SignatureProtein, Ur25.6mg/dL 07/17/2025 1:53 PM [facility])Comment:There are no established reference values for random urine specimens.Specimen (Source) Anatomical Location / LateralityCollection Method / VolumeCollection Time Received TimeUrineUrine specimen obtained by clean catch procedure / Unknown Non-blood Collection / Ermzdnz6907/17/2025 12:12 PM EST07/17/2025 1:12 PM EST Narrative Authorizing ProviderResult TypeResult StatusJojazmin Briseno [facility] URINE ORDERABLESFinal ResultPerforming OrganizationAddressCity/State/ZIP CodePhone Number [facility] ([facility]) [address] [place] [address] * (ABNORMAL) Urinalysis (07/17/2025 12:12 PM EST)ComponentValueRef RangeTest MethodAnalysis TimePerformed AtPathologist SignatureColor, UrineLight-Yellow Colorless, Yellow, Light-Mbhfbq1407/17/2025 1:42 PM [facility] ([facility])Clarity, SvystMcgqtLlnxh81/16/2025 1:42 PM [facility] ([facility])pH, Urine7.05.0 - 8.0 pH07/17/2025 1:42 PM [facility] ([facility])Leukocytes, UrineModerate(A)Hsbbyorf84/16/2025 1:42 PM [facility] ([facility])Nitrite, UrinePositive(A)Rtebqizn95/16/2025 1:42 PM EST [facility] ([facility])Protein, UrineNegativeNegative mg/dL07/17/2025 1:42 PM [facility] ([facility])Glucose, UrineNormalNormal mg/dL07/17/2025 1:42 PM [facility] ([facility])Bilirubin, UrineNegativeNegative 07/17/2025 1:42 PM [facility] ([facility])Specific [place], Urine1.013 1.010 - 1.5943807/17/2025 1:42 PM [facility] ([facility])Ketones, Urine NegativeNegative mg/dL07/17/2025 1:42 PM [facility] ([facility])Blood, YywjfKuwzjalwPfbhmuwn08/16/2025 1:42 PM [facility] ([facility]) Urobilinogen, UrineNormalNormal mg/dL07/17/2025 1:42 PM [facility] ([facility])Specimen (Source)Anatomical Location / LateralityCollection Method / VolumeCollection TimeReceived TimeUrineUrine specimen obtained by clean catch procedure / UnknownNon-blood Collection / Mlfeuzm6407/17/2025 12:12 PM EST 07/17/2025 1:12 PM EST Narrative Authorizing ProviderResult TypeResult StatusGrazyna Briseno [facility] URINE ORDERABLESFinal ResultPerforming OrganizationAddressCity/State/ZIP CodePhone Number [facility] ([facility]) [place] [address] * Tacrolimus level (07/17/2025 5:01 AM EST)ComponentValueRef RangeTest Method Analysis TimePerformed AtPathologist SignatureTacrolimus Lvl8.55.0 - 20.0 ng/mL07/17/2025 11:38 AM [facility] ([facility])Comment:The [employer] STUNT DRIVER Tacrolimus assay is a delayed one-step immunoassay for the quantitative determination of tacrolimus in human whole blood using the chemiluminescent microparticle immunoassay (CMIA) technology with flexible assay protocols, referred to as Chemiflex.Specimen (Source)Anatomical Location / LateralityCollection Method / VolumeCollection TimeReceived TimeBloodVenous blood specimen / UnknownVenipuncture / Uqxvixr4107/17/2025 5:01 AM EST 07/17/2025 5:25 AM EST Narrative Authorizing ProviderResult TypeResult StatusKunal Lobito [facility] BLOOD ORDERABLES Final ResultPerforming OrganizationAddressCity/State/ZIP CodePhone Number [facility]) [place] [address] * Phosphorus (07/17/2025 5:01 AM EST)ComponentValueRef RangeTest MethodAnalysis TimePerformed AtPathologist SignaturePhosphorus2.52.5 - 5.0 mg/dL07/17/2025 7:00 AM [facility] ([facility])Specimen (Source)Anatomical Location / LateralityCollection Method / VolumeCollection TimeReceived TimeBloodVenous blood specimen / UnknownVenipuncture / Dzocolf6507/17/2025 5:01 AM EST07/17/2025 5:29 AM EST Narrative Authorizing ProviderResult TypeResult StatusKunal Lobito [facility] BLOOD ORDERABLES Final ResultPerforming OrganizationAddressCity/State/ZIP CodePhone Number [facility]) [address] [place] [address] * Magnesium (07/17/2025 5:01 AM EST)ComponentValueRef RangeTest MethodAnalysis TimePerformed AtPathologist SignatureMagnesium2.11.9 - 2.7 mg/dL07/17/2025 7:00 AM [facility] ([facility])Specimen (Source)Anatomical Location / LateralityCollection Method / VolumeCollection TimeReceived TimeBloodVenous blood specimen / UnknownVenipuncture / Lxsbujf9007/17/2025 5:01 AM EST07/17/2025 5:29 AM EST Narrative Authorizing ProviderResult TypeResult StatusKunal Lobito FAJARDO BLOOD ORDERABLES Final ResultPerforming OrganizationAddressCity/State/ZIP CodePhone Number [facility] ([facility]) [address] [place] [address] * (ABNORMAL) Comprehensive metabolic panel (07/17/2025 5:01 AM EST)Component ValueRef RangeTest MethodAnalysis TimePerformed AtPathologist SignatureSodium 099809 - 145 mmol/L109/17/2024 7:00 AM [facility] ([facility])Potassium 3.93.5 - 5.1 mmol/L109/17/2024 7:00 AM [facility] ([facility])Gaxecrko830 (H)98 - 107 mmol/L109/17/2024 7:00 AM [facility] ([facility])AZ94435 - 31 mmol/L109/17/2024 7:00 AM [facility] ([facility])Anion Bzy756 - 20 mmol/L109/17/2024 7:00 AM [facility] ([facility])BUN41(H)7 - 25 mg/dL 07/17/2025 7:00 AM [facility] ([facility])Creatinine1.63(H)0.70 - 1.30 mg/dL07/17/2025 7:00 AM [facility] ([facility])BUN/Creatinine Ratio25.2 07/17/2025 7:00 AM [facility] ([facility])Haxneth198(H)70 - 100 mg/dL 07/17/2025 7:00 AM [facility] ([facility])Calcium8.4(L)8.6 - 10.3 mg/dL 07/17/2025 7:00 AM [facility] ([facility])PRF8973 - 39 U/L109/17/2024 7:00 AM [facility] ([facility])ALT (SGPT)177 - 52 U/L109/17/2024 7:00 AM [facility] ([facility])Alkaline Wlogamllpel194(H)34 - 104 U/L109/17/2024 7:00 AM [facility] ([facility])Total Protein5.0(L)6.0 - 8.3 g/dL 07/17/2025 7:00 AM [facility] ([facility])Albumin3.73.5 - 5.7 g/dL 07/17/2025 7:00 AM [facility])Total Bilirubin0.40.3 - 1.0 mg/dL07/17/2025 7:00 AM [facility] ([facility])eGFR45.0(L)>60.0 mL/min/1.73m* 7:00 AM [facility] ([facility])Comment:[facility]???s estimated glomerular filtration rate (eGFR) will [...] TimeReceived TimeBloodVenous blood specimen / UnknownVenipuncture / Knfgjtl9207/17/2025 5:01 AM EST07/17/2025 5:29 AM EST Narrative Authorizing ProviderResult TypeResult StatusKunal Lobito FAJARDO BLOOD ORDERABLES Final ResultPerforming OrganizationAddressCity/State/ZIP CodePhone Number [facility] ([facility]) [address] [place] [address] * (ABNORMAL) CBC (07/17/2025 5:01 AM EST)ComponentValueRef RangeTest Method Analysis TimePerformed AtPathologist SignatureAuto WBC13.62(H)4.00 - 10.60 10*3/uL07/17/2025 5:48 AM [facility] ([facility])RBC2.53(L)4.20 - 5.70 10*6/uL07/17/2025 5:48 AM [facility] ([facility])Hemoglobin8.6(L)13.0 - 17.0 g/dL07/17/2025 5:48 AM [facility] ([facility])Vsdxzmqtio39.1(L)39.0 - 50.0 %07/17/2025 5:48 AM [facility] ([facility])MCV99.2(H)82.0 - 98.0 fL07/17/2025 5:48 AM [facility] ([facility])MCH34.0(H)27.0 - 33.0 pg 07/17/2025 5:48 AM [facility] ([facility])MCHC34.332.0 - 35.0 g/dL 07/17/2025 5:48 AM [facility] ([facility])RDW17.0(H)11.5 - 15.0 % 07/17/2025 5:48 AM [facility] ([facility])Pnfsgmlsy844475 - 400 10*3/uL 07/17/2025 5:48 AM [facility] ([facility])Specimen (Source)Anatomical Location / LateralityCollection Method / VolumeCollection TimeReceived Time BloodVenous blood specimen / UnknownVenipuncture / Xavanrp1207/17/2025 5:01 AM EST07/17/2025 5:29 AM EST Narrative Authorizing ProviderResult TypeResult StatusKunal Lobito FAJARDO BLOOD ORDERABLES Final ResultPerforming OrganizationAddressCity/State/ZIP CodePhone Number [facility] ([facility]) [address] [place] [address] * Tacrolimus level (07/16/2025 5:08 AM EST)ComponentValueRef RangeTest Method Analysis TimePerformed AtPathologist SignatureTacrolimus Lvl7.25.0 - 20.0 ng/mL07/16/2025 9:43 AM [facility] ([facility])Comment:The [employer] STUNT DRIVER Tacrolimus assay is a delayed one-step immunoassay for the quantitative determination of tacrolimus in human whole blood using the chemiluminescent microparticle immunoassay (CMIA) technology with flexible assay protocols, referred to as Chemiflex.Specimen (Source)Anatomical Location / LateralityCollection Method / VolumeCollection TimeReceived TimeBloodVenous blood specimen / UnknownVenipuncture / Sdqppft3107/16/2025 5:08 AM EST 07/16/2025 5:19 AM EST Narrative Authorizing ProviderResult TypeResult StatusKnicole FAJARDO BLOOD ORDERABLES Final ResultPerforming OrganizationAddressCity/State/ZIP CodePhone Number [facility]) [address] [place] [phone] * Phosphorus (07/16/2025 5:08 AM EST)ComponentValueRef RangeTest MethodAnalysis TimePerformed AtPathologist SignaturePhosphorus4.02.5 - 5.0 mg/dL07/16/2025 5:46 AM [facility] ([facility])Specimen (Source)Anatomical Location / LateralityCollection Method / VolumeCollection TimeReceived TimeBloodVenous blood specimen / UnknownVenipuncture / Wpfvpel6907/16/2025 5:08 AM EST07/16/2025 5:19 AM EST Narrative Authorizing ProviderResult TypeResult StatusKnicole FAJARDO BLOOD ORDERABLES Final ResultPerforming OrganizationAddressCity/State/ZIP CodePhone Number [facility]) [address] [place] [address] * (ABNORMAL) Magnesium (07/16/2025 5:08 AM EST)ComponentValueRef RangeTest MethodAnalysis TimePerformed AtPathologist SignatureMagnesium1.7(L)1.9 - 2.7 mg/dL07/16/2025 5:46 AM [facility])Specimen (Source) Anatomical Location / LateralityCollection Method / VolumeCollection Time Received TimeBloodVenous blood specimen / UnknownVenipuncture / Unknown 07/16/2025 5:08 AM EST07/16/2025 5:19 AM EST Narrative Authorizing ProviderResult TypeResult StatusKunatuan FAJARDO BLOOD ORDERABLES Final ResultPerforming OrganizationAddressCity/State/ZIP CodePhone Number [facility] ([facility]) [address] [place] [address] * (ABNORMAL) Comprehensive metabolic panel (07/16/2025 5:08 AM EST)Component ValueRef RangeTest MethodAnalysis TimePerformed AtPathologist SignatureSodium 526695 - 145 mmol/L109/16/2024 5:46 AM [facility] ([facility])Potassium 3.83.5 - 5.1 mmol/L109/16/2024 5:46 AM [facility] ([facility])Uqwedfta601 98 - 107 mmol/L109/16/2024 5:46 AM [facility] ([facility])JS95446 - 31 mmol/L109/16/2024 5:46 AM [facility] ([facility])Anion Zvj549 - 20 mmol/L 07/16/2025 5:46 AM [facility] ([facility])BUN29(H)7 - 25 mg/dL07/16/2025 5:46 AM [facility] ([facility])Creatinine1.55(H)0.70 - 1.30 mg/dL 07/16/2025 5:46 AM [facility] ([facility])BUN/Creatinine Ratio18.7 07/16/2025 5:46 AM [facility] ([facility])Hlixhrs902(H)70 - 100 mg/dL 07/16/2025 5:46 AM [facility] ([facility])Calcium8.5(L)8.6 - 10.3 mg/dL 07/16/2025 5:46 AM [facility] ([facility])QAY5034 - 39 U/L109/16/2024 5:46 AM [facility] ([facility])ALT (SGPT)227 - 52 U/L109/16/2024 5:46 AM [facility] ([facility])Alkaline Swrgppszoso576(H)34 - 104 U/L109/16/2024 5:46 AM [facility] ([facility])Total Protein5.3(L)6.0 - 8.3 g/dL 07/16/2025 5:46 AM [facility] ([facility])Albumin4.03.5 - 5.7 g/dL 07/16/2025 5:46 AM [facility] ([facility])Total Bilirubin0.60.3 - 1.0 mg/dL07/16/2025 5:46 AM [facility] ([facility])eGFR47.9(L)>60.0 mL/min/1.73m* 5:46 AM [facility] ([facility])Comment:[facility]???s estimated glomerular filtration rate (eGFR) will [...] TimeReceived TimeBloodVenous blood specimen / UnknownVenipuncture / Tkhaknx3607/16/2025 5:08 AM EST07/16/2025 5:19 AM EST Narrative Authorizing ProviderResult TypeResult StatusKunal Lobito FAJARDO BLOOD ORDERABLES Final ResultPerforming OrganizationAddressCity/State/ZIP CodePhone Number [facility] ([facility]) [address] [place] [address] * (ABNORMAL) CBC (07/16/2025 5:08 AM EST)ComponentValueRef RangeTest Method Analysis TimePerformed AtPathologist SignatureAuto WBC10.354.00 - 10.60 10*3/uL07/16/2025 5:43 AM [facility] ([facility])RBC2.59(L)4.20 - 5.70 10*6/uL07/16/2025 5:43 AM [facility] ([facility])Hemoglobin8.6(L)13.0 - 17.0 g/dL07/16/2025 5:43 AM [facility] ([facility])Hvuildjuzo58.8(L)39.0 - 50.0 %07/16/2025 5:43 AM [facility] ([facility])MCV99.6(H)82.0 - 98.0 fL07/16/2025 5:43 AM [facility] ([facility])MCH33.2(H)27.0 - 33.0 pg 07/16/2025 5:43 AM [facility] ([facility])MCHC33.332.0 - 35.0 g/dL 07/16/2025 5:43 AM [facility] ([facility])RDW16.8(H)11.5 - 15.0 % 07/16/2025 5:43 AM [facility] ([facility])Fobdxthsv532984 - 400 10*3/uL 07/16/2025 5:43 AM [facility] ([facility])Specimen (Source)Anatomical Location / LateralityCollection Method / VolumeCollection TimeReceived Time BloodVenous blood specimen / UnknownVenipuncture / Avazmlr8307/16/2025 5:08 AM EST07/16/2025 5:19 AM EST Narrative Authorizing ProviderResult TypeResult StatusKunal Lobito FAJARDO BLOOD ORDERABLES Final ResultPerforming OrganizationAddressCity/State/ZIP CodePhone Number [facility] ([facility]) [address] [place] [address] * XR chest 1 view (07/15/2025 1:41 [...] Cunningham MD. Authorizing ProviderResult TypeResult StatusKunal Lobito JOSEPHIMG XR PROCEDURESFinal Result * (ABNORMAL) CBC auto differential (07/15/2025 11:27 AM EST)ComponentValueRef RangeTest MethodAnalysis TimePerformed AtPathologist SignatureAuto WBC11.67(H) 4.00 - 10.60 10*3/uL07/15/2025 11:42 AM [facility] ([facility])RBC2.37 (L)4.20 - 5.70 10*6/uL07/15/2025 11:42 AM [facility] ([facility]) Hemoglobin8.0(L)13.0 - 17.0 g/dL07/15/2025 11:42 AM [facility] ([facility])Gxdckqjiag23.9(L)39.0 - 50.0 %07/15/2025 11:42 AM [facility] ([facility])PZQ147.8(H)82.0 - 98.0 fL07/15/2025 11:42 AM [facility] ([facility])MCH33.8(H)27.0 - 33.0 pg07/15/2025 11:42 AM [facility] ([facility])MCHC33.532.0 - 35.0 g/dL07/15/2025 11:42 AM [facility] ([facility])RDW16.8(H)11.5 - 15.0 %07/15/2025 11:42 AM [facility] ([facility])Neutrophils %75.3(H)40.0 - 72.0 %07/15/2025 11:42 AM [facility] ([facility])Lymphocytes %14.3(L)20.0 - 45.0 %07/15/2025 11:42 AM [facility] ([facility])Monocytes %8.15.0 - 12.0 %07/15/2025 11:42 AM [facility] ([facility])Eosinophils %0.40.0 - 6.0 %07/15/2025 11:42 AM [facility] ([facility])Basophils %0.20.0 - 1.0 %07/15/2025 11:42 AM [facility] ([facility])Neutrophils Absolute8.78(H)1.60 - 7.60 10*3/uL07/15/2025 11:42 AM [facility] ([facility])Lymphocytes Absolute1.671.20 - 4.00 10*3/07/15/2025 11:42 AM [facility] ([facility])Monocytes Absolute0.95 0.10 - 1.00 10*3/07/15/2025 11:42 AM [facility] [facility]) Eosinophils Absolute0.050.00 - 0.50 10*3/07/15/2025 11:42 AM [facility] ([facility])Basophils Absolute0.020.00 - 0.20 10*3/07/15/2025 11:42 AM [facility] ([facility])Bmqmctazq739131 - 400 10*3/07/15/2025 11:42 AM [facility] ([facility])nRBC %0.00 %07/15/2025 11:42 AM [facility] ([facility])Immature Granulocytes %1.7(H)0.0 - 1.0 %07/15/2025 11:42 AM [facility] ([facility])Immature Granulocytes Absolute0.200.00 - 0.20 10*3/uL07/15/2025 11:42 AM [facility] ([facility])Specimen (Source) Anatomical Location / LateralityCollection Method / VolumeCollection Time Received TimeBloodVenous blood specimen / UnknownVenipuncture / Unknown 07/15/2025 11:27 AM EST07/15/2025 11:32 AM EST Narrative Authorizing ProviderResult TypeResult StatusKunal Lobito JOSEPHLAB BLOOD ORDERABLES Final ResultPerforming OrganizationAddressCity/State/ZIP CodePhone Number [facility]) [address] [place] [address] * (ABNORMAL) Ferritin (07/15/2025 3:27 AM EST)ComponentValueRef RangeTest Method Analysis TimePerformed AtPathologist XdupnwvtkOdgxuchi717.0(H)24.0 - 336.0 ng/mL07/15/2025 8:24 PM [facility])Specimen (Source) Anatomical Location / LateralityCollection Method / VolumeCollection Time Received TimeBloodVenous blood specimen / UnknownVenipuncture / Unknown 07/15/2025 3:27 AM EST07/15/2025 4:36 AM EST Narrative Authorizing ProviderResult TypeResult StatusJayjay Robin MDLAB BLOOD ORDERABLES Final ResultPerforming OrganizationAddressCity/State/ZIP CodePhone Number [facility]) [address] [facility] [address] * (ABNORMAL) Iron and TIBC (07/15/2025 3:27 AM EST)ComponentValueRef RangeTest MethodAnalysis TimePerformed AtPathologist EezmuakasOgbc74(L)50 - 212 ug/dL 07/15/2025 11:07 AM [facility])TIBC<91(L)250 - 450 ug/dL 07/15/2025 11:07 AM [facility])Iron Fypvlgpoiw45/14/2025 11:07 AM [facility])Comment:Unable to CalculateUIBC<55.0(L) 155.0 - 355.0 ug/dL07/15/2025 11:07 AM [facility])Specimen (Source)Anatomical Location / LateralityCollection Method / VolumeCollection TimeReceived TimeBloodVenous blood specimen / UnknownVenipuncture / Unknown 07/15/2025 3:27 AM EST07/15/2025 4:36 AM EST Narrative Authorizing ProviderResult TypeResult StatusKnicole Robin MDLAB BLOOD ORDERABLES Final ResultPerforming OrganizationAddressCity/State/ZIP CodePhone Number [facility]) [address] [place] [address] * Tacrolimus level (07/15/2025 3:27 AM EST)ComponentValueRef RangeTest Method Analysis TimePerformed AtPathologist SignatureTacrolimus Lvl5.55.0 - 20.0 ng/mL07/15/2025 10:33 AM [facility])Comment:The CM STUNT DRIVER Tacrolimus assay is a delayed one-step immunoassay for the quantitative determination of tacrolimus in human whole blood using the chemiluminescent microparticle immunoassay (CMIA) technology with flexible assay protocols, referred to as Chemiflex.Specimen (Source)Anatomical Location / LateralityCollection Method / VolumeCollection TimeReceived TimeBloodVenous blood specimen / UnknownVenipuncture / Kfxuycj8907/15/2025 3:27 AM EST 07/15/2025 4:38 AM EST Narrative Authorizing ProviderResult TypeResult StatusKunal Lobito MDLAB BLOOD ORDERABLES Final ResultPerforming OrganizationAddressCity/State/ZIP CodePhone Number [facility]) [address] [place] [address] * Phosphorus (07/15/2025 3:27 AM EST)ComponentValueRef RangeTest MethodAnalysis TimePerformed AtPathologist SignaturePhosphorus3.02.5 - 5.0 mg/dL07/15/2025 5:06 AM [facility])Specimen (Source)Anatomical Location / LateralityCollection Method / VolumeCollection TimeReceived TimeBloodVenous blood specimen / UnknownVenipuncture / Icaifce3207/15/2025 3:27 AM EST07/15/2025 4:36 AM EST Narrative Authorizing ProviderResult TypeResult StatusKunal Lobito MDLAB BLOOD ORDERABLES Final ResultPerforming OrganizationAddressCity/State/ZIP CodePhone Number [facility]) [address] [place] [address] * Magnesium (07/15/2025 3:27 AM EST)ComponentValueRef RangeTest MethodAnalysis TimePerformed AtPathologist SignatureMagnesium2.01.9 - 2.7 mg/dL07/15/2025 5:06 AM [facility])Specimen (Source)Anatomical Location / LateralityCollection Method / VolumeCollection TimeReceived TimeBloodVenous blood specimen / UnknownVenipuncture / Kugveve6707/15/2025 3:27 AM EST07/15/2025 4:36 AM EST Narrative Authorizing ProviderResult TypeResult StatusKunal Lobito FAJARDO BLOOD ORDERABLES Final ResultPerforming OrganizationAddressCity/State/ZIP CodePhone Number [facility] ([facility]) [address] [place] [address] * (ABNORMAL) Comprehensive metabolic panel (07/15/2025 3:27 AM EST)Component ValueRef RangeTest MethodAnalysis TimePerformed AtPathologist SignatureSodium 855848 - 145 mmol/L109/15/2024 5:06 AM [facility] ([facility])Potassium 4.13.5 - 5.1 mmol/L109/15/2024 5:06 AM [facility] ([facility])Lyeslesd304 (H)98 - 107 mmol/L109/15/2024 5:06 AM [facility] ([facility])IK53167 - 31 mmol/L109/15/2024 5:06 AM [facility] ([facility])Anion Scd096 - 20 mmol/L109/15/2024 5:06 AM [facility] ([facility])CLE512 - 25 mg/dL 07/15/2025 5:06 AM [facility] ([facility])Creatinine1.300.70 - 1.30 mg/dL07/15/2025 5:06 AM [facility] ([facility])BUN/Creatinine Ratio17.7 07/15/2025 5:06 AM [facility] ([facility])Usalifm6300 - 100 mg/dL 07/15/2025 5:06 AM [facility] ([facility])Calcium8.5(L)8.6 - 10.3 mg/dL 07/15/2025 5:06 AM [facility] ([facility])TKW5614 - 39 U/L109/15/2024 5:06 AM [facility] ([facility])ALT (SGPT)277 - 52 U/L109/15/2024 5:06 AM [facility] ([facility])Alkaline Hrcnhysiwaz356(H)34 - 104 U/L109/15/2024 5:06 AM [facility] ([facility])Total Protein5.6(L)6.0 - 8.3 g/dL 07/15/2025 5:06 AM [facility] ([facility])Albumin4.53.5 - 5.7 g/dL 07/15/2025 5:06 AM [facility] ([facility])Total Bilirubin0.50.3 - 1.0 mg/dL07/15/2025 5:06 AM [facility] ([facility])eGFR59.1(L)>60.0 mL/min/1.73m* 5:06 AM [facility] ([facility])Comment:[facility]???s estimated glomerular filtration rate (eGFR) will [...] TimeReceived TimeBloodVenous blood specimen / UnknownVenipuncture / Lnmdzlg6707/15/2025 3:27 AM EST07/15/2025 4:36 AM EST Narrative Authorizing ProviderResult TypeResult StatusKunal Lobito FAJARDO BLOOD ORDERABLES Final ResultPerforming OrganizationAddressCity/State/ZIP CodePhone Number [facility] ([facility]) [address] [place] [address] * (ABNORMAL) CBC (07/15/2025 3:27 AM EST)ComponentValueRef RangeTest Method Analysis TimePerformed AtPathologist SignatureAuto WBC10.324.00 - 10.60 10*3/uL07/15/2025 4:50 AM [facility] ([facility])RBC2.03(L)4.20 - 5.70 10*6/uL07/15/2025 4:50 AM [facility] ([facility])Hemoglobin6.9(L)13.0 - 17.0 g/dL07/15/2025 4:50 AM [facility] ([facility])Sudqqggfhh62.8(L)39.0 - 50.0 %07/15/2025 4:50 AM [facility] ([facility])JTD902.5(H)82.0 - 98.0 fL07/15/2025 4:50 AM [facility] ([facility])MCH34.0(H)27.0 - 33.0 pg07/15/2025 4:50 AM [facility])MCHC33.232.0 - 35.0 g/dL 07/15/2025 4:50 AM [facility] ([facility])RDW16.7(H)11.5 - 15.0 % 07/15/2025 4:50 AM [facility] ([facility])Aytiaorqj959478 - 400 10*3/uL 07/15/2025 4:50 AM [facility] ([facility])Specimen (Source)Anatomical Location / LateralityCollection Method / VolumeCollection TimeReceived Time BloodVenous blood specimen / UnknownVenipuncture / Vxuylqs3107/15/2025 3:27 AM EST07/15/2025 4:38 AM EST Narrative Authorizing ProviderResult TypeResult StatusKunal Lobito FAJARDO BLOOD ORDERABLES Final ResultPerforming OrganizationAddressCity/State/ZIP CodePhone Number [facility] ([facility]) [address] [place], [place] [id number] * (ABNORMAL) SARS-CoV-2 PCR (07/14/2025 6:13 PM EST)ComponentValueRef RangeTest MethodAnalysis TimePerformed AtPathologist XgyophmcqPDAK-QiG-0 PCRPositive(AA) Ewhlxvwx60/13/2025 6:40 PM [facility])Specimen (Source) Anatomical Location / LateralityCollection Method / VolumeCollection Time Received TimeSwabNasal structure / UnknownNon-blood Collection / Unknown 07/14/2025 6:13 PM EST07/14/2025 6:17 PM EST Narrative [facility] ([facility]) - 07/14/2025 6:40 PM EST Testing methodology utilizes isothermal nucleic acid amplification technology for the differential and qualitative detection of SARS-CoV-2 viral nucleic acids. Authorizing ProviderResult TypeResult Mindy FAJARDO MICROBIOLOGY - GENERAL ORDERABLESFinal ResultPerforming OrganizationAddressCity/State/ZIP Code Phone Number [facility]) [address] [place] [address] * Tacrolimus level (07/14/2025 3:37 AM EST)ComponentValueRef RangeTest Method Analysis TimePerformed AtPathologist SignatureTacrolimus Lvl9.05.0 - 20.0 ng/mL07/14/2025 11:03 AM [facility])Comment:The CM [employer]IVER Tacrolimus assay is a delayed one-step immunoassay for the quantitative determination of tacrolimus in human whole blood using the chemiluminescent microparticle immunoassay (CMIA) technology with flexible assay protocols, referred to as Chemiflex.Specimen (Source)Anatomical Location / LateralityCollection Method / VolumeCollection TimeReceived TimeBloodVenous blood specimen / UnknownVenipuncture / Hbxzxvb1007/14/2025 3:37 AM EST 07/14/2025 3:52 AM EST Narrative Authorizing ProviderResult TypeResult StatusJayjay FAJARDO BLOOD ORDERABLES Final ResultPerforming OrganizationAddressCity/State/ZIP CodePhone Number [facility]) [address] [place] [address] * Phosphorus (07/14/2025 3:37 AM EST)ComponentValueRef RangeTest MethodAnalysis TimePerformed AtPathologist SignaturePhosphorus3.42.5 - 5.0 mg/dL07/14/2025 4:14 AM [facility] ([facility])Specimen (Source)Anatomical Location / LateralityCollection Method / VolumeCollection TimeReceived TimeBloodVenous blood specimen / UnknownVenipuncture / Zxxaidc9907/14/2025 3:37 AM EST07/14/2025 3:52 AM EST Narrative Authorizing ProviderResult TypeResult StatusJayjay FAJARDO BLOOD ORDERABLES Final ResultPerforming OrganizationAddressCity/State/ZIP CodePhone Number [facility] ([facility]) [address] [place] [address] * (ABNORMAL) Magnesium (07/14/2025 3:37 AM EST)ComponentValueRef RangeTest MethodAnalysis TimePerformed AtPathologist SignatureMagnesium1.7(L)1.9 - 2.7 mg/dL07/14/2025 4:14 AM [facility] ([facility])Specimen (Source) Anatomical Location / LateralityCollection Method / VolumeCollection Time Received TimeBloodVenous blood specimen / UnknownVenipuncture / Unknown 07/14/2025 3:37 AM EST07/14/2025 3:52 AM EST Narrative Authorizing ProviderResult TypeResult StatusKunatuan FAJARDO BLOOD ORDERABLES Final ResultPerforming OrganizationAddressCity/State/ZIP CodePhone Number [facility]) [address] [place] [address] * (ABNORMAL) Comprehensive metabolic panel (07/14/2025 3:37 AM EST)Component ValueRef RangeTest MethodAnalysis TimePerformed AtPathologist SignatureSodium 916352 - 145 mmol/L109/14/2024 4:14 AM [facility] ([facility])Potassium 4.43.5 - 5.1 mmol/L109/14/2024 4:14 AM [facility] ([facility])Xzuccqug027 (H)98 - 107 mmol/L109/14/2024 4:14 AM [facility] ([facility])XR11078 - 31 mmol/L109/14/2024 4:14 AM [facility] ([facility])Anion Jnb950 - 20 mmol/L109/14/2024 4:14 AM [facility] ([facility])BSB772 - 25 mg/dL 07/14/2025 4:14 AM [facility] ([facility])Creatinine1.190.70 - 1.30 mg/dL07/14/2025 4:14 AM [facility] ([facility])BUN/Creatinine Ratio17.6 07/14/2025 4:14 AM [facility] ([facility])Prubpbs299(H)70 - 100 mg/dL 07/14/2025 4:14 AM [facility] ([facility])Calcium7.7(L)8.6 - 10.3 mg/dL 07/14/2025 4:14 AM [facility] ([facility])AST10(L)13 - 39 U/L109/14/2024 4:14 AM [facility] ([facility])ALT (SGPT)97 - 52 U/L109/14/2024 4:14 AM [facility] ([facility])Alkaline Txogtuesivl5246 - 104 U/L109/14/2024 4:14 AM [facility] ([facility])Total Protein4.7(L)6.0 - 8.3 g/dL07/14/2025 4:14 AM [facility] ([facility])Albumin3.1(L)3.5 - 5.7 g/dL07/14/2025 4:14 AM [facility] ([facility])Total Bilirubin0.30.3 - 1.0 mg/dL 07/14/2025 4:14 AM [facility] ([facility])eGFR65.7>60.0 mL/min/1.73m*2 07/14/2025 4:14 AM [facility] ([facility])Comment:[facility]???s estimated glomerular filtration rate (eGFR) will [...] TimeBloodVenous blood specimen / Unknown Venipuncture / Gmuzbol5507/14/2025 3:37 AM EST07/14/2025 3:52 AM EST Narrative Authorizing ProviderResult TypeResult StatusKunal Lobito FAJARDO BLOOD ORDERABLES Final ResultPerforming OrganizationAddressCity/State/ZIP CodePhone Number [facility] ([facility]) [address] [place] [address] * (ABNORMAL) CBC (07/14/2025 3:37 AM EST)ComponentValueRef RangeTest Method Analysis TimePerformed AtPathologist SignatureAuto WBC10.574.00 - 10.60 10*3/uL07/14/2025 3:58 AM [facility] ([facility])RBC2.29(L)4.20 - 5.70 10*6/uL07/14/2025 3:58 AM [facility] ([facility])Hemoglobin7.8(L)13.0 - 17.0 g/dL07/14/2025 3:58 AM [facility] ([facility])Dkjaopfuzy06.5(L)39.0 - 50.0 %07/14/2025 3:58 AM [facility] ([facility])PCY022.6(H)82.0 - 98.0 fL07/14/2025 3:58 AM [facility] ([facility])MCH34.1(H)27.0 - 33.0 pg07/14/2025 3:58 AM [facility] ([facility])MCHC33.232.0 - 35.0 g/dL 07/14/2025 3:58 AM [facility] ([facility])RDW16.6(H)11.5 - 15.0 % 07/14/2025 3:58 AM [facility] ([facility])Ghzftymrn932325 - 400 10*3/uL 07/14/2025 3:58 AM [facility] ([facility])Specimen (Source)Anatomical Location / LateralityCollection Method / VolumeCollection TimeReceived Time BloodVenous blood specimen / UnknownVenipuncture / Swbbqac2807/14/2025 3:37 AM EST07/14/2025 3:52 AM EST Narrative Authorizing ProviderResult TypeResult StatusKunal Lobito FAJARDO BLOOD ORDERABLES Final ResultPerforming OrganizationAddressCity/State/ZIP CodePhone Number [facility]) [address] [place] [address] * Tacrolimus level (07/13/2025 8:48 PM EST)ComponentValueRef RangeTest Method Analysis TimePerformed AtPathologist SignatureTacrolimus Lvl5.95.0 - 20.0 ng/mL07/14/2025 11:03 AM [facility] ([facility])Comment:The CM [employer]IVER Tacrolimus assay is a delayed one-step immunoassay for the quantitative determination of tacrolimus in human whole blood using the chemiluminescent microparticle immunoassay (CMIA) technology with flexible assay protocols, referred to as Chemiflex.Specimen (Source)Anatomical Location / LateralityCollection Method / VolumeCollection TimeReceived TimeBloodVenous blood specimen / UnknownVenipuncture / Vlrcpgq0707/13/2025 8:48 PM EST 07/13/2025 8:58 PM EST Narrative Authorizing ProviderResult TypeResult StatusKunal Lobito DCLAB BLOOD ORDERABLES Final ResultPerforming OrganizationAddressCity/State/ZIP CodePhone Number [facility]) [address] [place] [address] * Phosphorus (07/13/2025 8:48 PM EST)ComponentValueRef RangeTest MethodAnalysis TimePerformed AtPathologist SignaturePhosphorus3.42.5 - 5.0 mg/dL07/13/2025 9:20 PM [facility] ([facility])Specimen (Source)Anatomical Location / LateralityCollection Method / VolumeCollection TimeReceived TimeBloodVenous blood specimen / UnknownVenipuncture / Ehixmjl3207/13/2025 8:48 PM EST07/13/2025 8:59 PM EST Narrative Authorizing ProviderResult TypeResult StatusKunal Lobito [facility] BLOOD ORDERABLES Final ResultPerforming OrganizationAddressCity/State/ZIP CodePhone Number [facility]) [address] [place] [address] * (ABNORMAL) Magnesium (07/13/2025 8:48 PM EST)ComponentValueRef RangeTest MethodAnalysis TimePerformed AtPathologist SignatureMagnesium1.7(L)1.9 - 2.7 mg/dL07/13/2025 9:20 PM [facility])Specimen (Source) Anatomical Location / LateralityCollection Method / VolumeCollection Time Received TimeBloodVenous blood specimen / UnknownVenipuncture / Unknown 07/13/2025 8:48 PM EST07/13/2025 8:59 PM EST Narrative Authorizing ProviderResult TypeResult StatusKunal Lobito FAJARDO BLOOD ORDERABLES Final ResultPerforming OrganizationAddressCity/State/ZIP CodePhone Number [facility] ([facility]) [address] [place] [address] * (ABNORMAL) Comprehensive metabolic panel (07/13/2025 8:48 PM EST)Component ValueRef RangeTest MethodAnalysis TimePerformed AtPathologist SignatureSodium 215654 - 145 mmol/L109/13/2024 9:20 PM [facility] ([facility])Potassium 4.63.5 - 5.1 mmol/L109/13/2024 9:20 PM [facility] ([facility])Vcgfujai668 (H)98 - 107 mmol/L109/13/2024 9:20 PM [facility] ([facility])GC66929 - 31 mmol/L109/13/2024 9:20 PM [facility] ([facility])Anion Wib197 - 20 mmol/L109/13/2024 9:20 PM [facility] ([facility])DVH611 - 25 mg/dL 07/13/2025 9:20 PM [facility] ([facility])Creatinine1.260.70 - 1.30 mg/dL07/13/2025 9:20 PM [facility] ([facility])BUN/Creatinine Ratio17.5 07/13/2025 9:20 PM [facility] ([facility])Iimuoke444(H)70 - 100 mg/dL 07/13/2025 9:20 PM [facility] ([facility])Calcium7.4(L)8.6 - 10.3 mg/dL 07/13/2025 9:20 PM [facility] ([facility])OMH2569 - 39 U/L109/13/2024 9:20 PM [facility] ([facility])ALT (SGPT)137 - 52 U/L109/13/2024 9:20 PM [facility] ([facility])Alkaline Uxgwvjifovy37657 - 104 U/L109/13/2024 9:20 PM [facility] ([facility])Total Protein4.6(L)6.0 - 8.3 g/dL 07/13/2025 9:20 PM [facility] ([facility])Albumin2.5(L)3.5 - 5.7 g/dL 07/13/2025 9:20 PM [facility] ([facility])Total Bilirubin0.2(L)0.3 - 1.0 mg/dL07/13/2025 9:20 PM [facility] ([facility])eGFR61.4>60.0 mL/min/1.73m* 9:20 PM [facility] ([facility])Comment:[facility]???s estimated glomerular filtration rate (eGFR) will [...] TimeReceived TimeBloodVenous blood specimen / UnknownVenipuncture / Boyppvg1307/13/2025 8:48 PM EST07/13/2025 8:59 PM EST Narrative Authorizing ProviderResult TypeResult StatusKunal Lobito JOSEPHLAB BLOOD ORDERABLES Final ResultPerforming OrganizationAddressCity/State/ZIP CodePhone Number [facility] ([facility]) [address] [place] [address] * (ABNORMAL) CBC (07/13/2025 8:48 PM EST)ComponentValueRef RangeTest Method Analysis TimePerformed AtPathologist SignatureAuto WBC12.69(H)4.00 - 10.60 10*3/uL07/13/2025 9:11 PM [facility] ([facility])RBC2.80(L)4.20 - 5.70 10*6/uL07/13/2025 9:11 PM [facility] ([facility])Hemoglobin9.2(L)13.0 - 17.0 g/dL07/13/2025 9:11 PM [facility] ([facility])Qvppcmpavx06.2(L)39.0 - 50.0 %07/13/2025 9:11 PM [facility] ([facility])CQY325.7(H)82.0 - 98.0 fL07/13/2025 9:11 PM [facility] ([facility])MCH32.927.0 - 33.0 pg 07/13/2025 9:11 PM [facility] ([facility])MCHC32.632.0 - 35.0 g/dL 07/13/2025 9:11 PM [facility] ([facility])RDW16.5(H)11.5 - 15.0 % 07/13/2025 9:11 PM [facility] ([facility])[id number] - 400 10*3/uL 07/13/2025 9:11 PM [facility] ([facility])Specimen (Source)Anatomical Location / LateralityCollection Method / VolumeCollection TimeReceived Time BloodVenous blood specimen / UnknownVenipuncture / Zqqiukk2807/13/2025 8:48 PM EST07/13/2025 8:58 PM EST Narrative Authorizing ProviderResult TypeResult StatusKunal Lobito FAJARDO BLOOD ORDERABLES Final ResultPerforming OrganizationAddressCity/State/ZIP CodePhone Number [facility] ([facility]) [address] [place] [address] documented in this encounter Visit Diagnoses Diagnosis [...] 1030, For 99 days Given07/20/2025 10:46 AM GTP023 mg albumin human 25 % bottle 100 g 100 g, intravenous, at 60 mL/hr, 3 times daily, First dose on Wed07/13/25 at 2200, For 2 doses New Bag07/14/2025 12:17 PM UNX298 g60 mL/hrRate/Dose Sreufl7407/14/2025 3:16 AM EST60 mL/hrNew Bag07/13/2025 10:59 PM PRG445 g60 mL/hr albumin human 25 % bottle 100 g 100 g, intravenous, at 60 mL/hr, 3 times daily, First dose (after last reorder) on Wed07/14/25 at 1600, For 2 doses New Bag07/14/2025 9:58 PM JCP125 g60 mL/hrRate/Dose Kakdci9807/14/2025 6:46 PM EST 60 mL/hrRate/Dose Ytjowv4107/14/2025 3:46 PM EST60 mL/hr albuterol 2.5 mg [...] until manually unheld Given07/20/2025 10:47 AM EST50 doWornc4907/19/2025 11:31 AM EST50 mgGiven 07/18/2025 10:01 AM EST50 mg calcium carbonate-vitamin D3 500 mg-5 mcg (200 unit) per tablet 1 tablet 1 tablet, oral, Daily, First dose on Wed07/18/25 at 1300, For 99 days Given07/24/2025 9:11 AM EST1 vjlldqXujqi98/22/2025 9:19 AM EST1 tabletGiven 07/22/2025 10:08 AM EST1 tablet carvedilol (Coreg) tablet 25 mg 25 mg, oral, 2 times daily with meals, First dose on Wed07/14/25 at 0800, For 99 days Given07/24/2025 9:12 AM EST25 tfVgqdw5107/23/2025 4:11 PM EST25 jtPrkft9807/23/2025 9:19 AM EST25 mg cefepime (Maxipime) 2 [...] 5,000 Units, oral, Daily, First dose on Wed07/19/25 at 1215, For 99 days Given07/24/2025 9:11 AM EST5,000 SpewzZlkst41/22/2025 9:19 AM EST5,000 Units Given07/22/2025 10:08 AM EST5,000 Units DAPTOmycin (Cubicin) 650 mg in sodium chloride 0.9 % 50 mL IVPB 650 mg (rounded from 636 mg = 8 mg/kg ?? 79.5 kg), intravenous, at 100 mL/hr, Administer over 30 Minutes, Once, On Wed07/20/25 at 1800, For 1 dose, BUD: 12 hours at room temp, Indication: Recommended by Infectious Disease Service 07/20/2025 6:39 PM LEY237 mg100 mL/hr DAPTOmycin (Cubicin) 650 mg in sodium chloride 0.9 % 50 mL IVPB 650 mg (rounded from 636 mg = 8 mg/kg ?? 79.5 kg), intravenous, at 100 mL/hr, Administer over 30 Minutes, Once, On Wed07/21/25 at 1300, For 1 dose, BUD: 12 hours at room temp, Indication: Recommended by Infectious Disease Service 07/21/2025 1:40 PM RXP765 mg100 mL/hr DAPTOmycin (Cubicin) 650 mg in sodium chloride 0.9 % 50 mL IVPB 650 mg (rounded from 636 mg = 8 mg/kg ?? 79.5 kg), intravenous, at 100 mL/hr, Administer over 30 Minutes, Every 24 hours, First dose (after last reorder) on Wed07/22/25 at 1400, For 3 doses, BUD: 12hours at room temp, Indication: Recommended by Infectious Disease Service 07/24/2025 1:37 PM AAT852 mg100 mL/hrw 07/23/2025 4:14 PM PXX565 mg 100 mL/hrNew 07/22/2025 5:12 PM EYU217 mg100 mL/hr darbepoetin steve (Aranesp) injection (albumin free) 60 mcg 60 mcg (rounded from 60.525 mcg = 0.75 mcg/kg ?? 80.7 kg), subcutaneous, Once, On Wed07/16/25 at 0815, For 1 dose, Indications: ESRD on Dialysis, anemia Indications:ESRD on Dialysis,eryxqxImgyx52/15/2025 11:38 AM EST60 mcgLeft Upper Abdomen darbepoetin steve (Aranesp) injection (albumin free) 60 mcg 60 mcg (rounded from 64.125 mcg = 0.75 mcg/kg ?? 85.5 kg), subcutaneous, Once, On Wed07/24/25 at 1030, For 1 dose, Indications: anemia Indications:qxriupEuhmd63/23/2025 11:07 AM EST60 mcgRight Lower Abdomen famotidine (Pepcid) tablet 20 mg 20 mg, oral, Nightly, First dose on Wed07/13/25 at 2200, For 99 days, Indication: Stress Ulcer Prophylaxis Given07/23/2025 10:01 PM EST20 gzNjhvl0007/22/2025 9:48 PM EST20 wiGoiha3107/21/2025 10:33 PM EST20 mg fidaxomicin (Dificid) tablet 200 mg 200 mg, oral, 2 times daily, First dose on Wed07/18/25 at 1400, For 10 days, Episode (Specify): initial episode, non-severe (WBC < 15,000 and SCr < 1.5), Name of Infectious Disease Specialist:Belen Tai Given07/21/2025 9:42 AM YAT694 kyMdeyd5407/20/2025 10:15 PM JMX655 mgGiven 07/20/2025 10:47 AM MCI535 mg finasteride (Proscar) tablet 5 mg 5 mg, oral, Daily, First dose on Wed07/13/25 at 2030, For 99 days, Do not crush, chew, or split. Given07/24/2025 9:11 AM EST5 smUwzbr7907/23/2025 9:20 AM EST5 osXjejt9207/22/2025 10:08 AM EST5 mg furosemide (Lasix) injection [...] 2200, For 99 days Given07/24/2025 9:11 AM INE564 ebXpull0207/23/2025 10:01 PM HTK771 mgGiven 07/23/2025 4:11 PM PJL485 mg ipratropium-albuteroL (Duo-Neb) 0.5-2.5 mg/3 mL nebulizer solution 3 mL 3 mL, nebulization, Once, On Wed07/15/25 at 1345, For 1 dose, For patients with wheezes 1: E ratio>1:2 Given07/15/2025 1:45 PM EST3 mL iron sucrose (Venofer) injection 200 mg 200 mg, intravenous, Once, On Wed07/24/25 at 1030, For 1 dose, Give undiluted IV Push over 2 to 5 minutes. Given07/24/2025 11:07 AM PTZ204 mg lidocaine HCl (Xylocaine) 10 mg/mL (1 [...] dose 2 g over 2 hours) New 07/19/2025 11:00 AM EST1 g100 mL/hrNew 07/19/2025 8:44 AM EST1 g100 mL/hr magnesium sulfate in D5W IVPB 1 g 1 g, intravenous, at 100 mL/hr, Administer over 1 Hours, Every 1 hour, First dose on Wed07/23/25 at 0915, For 4 doses, Magnesium 1.3-1.9 (total dose 2 g over 2 hours) New 07/23/2025 2:51 PM EST1 g100 mL/hrNew 07/23/2025 1:02 PM EST1 g100 mL/hrNew 07/23/2025 11:42 AM EST1 g100 mL/hr megestrol (Megace) suspension 800 mg 800 mg, oral, Daily, First dose on Wed07/15/25 at 1100, For 99 days, SHAKE WELL Given07/22/2025 10:09 AM SKJ792 tnNwgpc5607/21/2025 9:42 AM JPT245 mgGiven 07/20/2025 10:48 AM AJX197 mg melatonin tablet 5 mg 5 mg, oral, Nightly PRN, sleep, Starting on Wed07/13/25 at 2010, For 99 days Given07/21/2025 10:33 PM EST5 [...] a concentration of 125mg/2mL. Given07/15/2025 1:53 PM PLS773 mg NIFEdipine XL (Procardia XL) 24 hr tablet 30 mg 30 mg, oral, Daily, First dose on Wed07/13/25 at 2030, For 99 days, Do not crush, chew, or split. Given07/24/2025 9:11 AM EST30 ahLovng4207/23/2025 9:20 AM EST30 fiDwdmd7607/22/2025 10:09 AM EST30 mg nystatin (Mycostatin) 100,000 unit/mL suspension 500,000 Units 500,000 Units (5 mL), Swish & Swallow, 4 times daily, First dose on 07/16/25 at 1545, For 5days Given07/21/2025 9:42 AM UQG710,000 BkgztLnfsr20/19/2025 10:15 PM IVC869,000 FagkwHrnbp80/19/2025 5:40 PM WGL351,000 Units ondansetron HCl (PF) (Zofran) injection 4 [...] Stress Ulcer Prophylaxis Given07/24/2025 7:00 AM EST40 xmJdpxc6307/23/2025 6:39 AM EST40 kzZvnlz9707/22/2025 6:39 AM EST40 mg predniSONE (Deltasone) tablet 10 mg 10 mg, oral, Daily, First dose on Wed07/13/25 at 2030, For 99 days Given07/20/2025 10:47 AM EST10 dcPnjlr2207/19/2025 11:18 AM EST10 mgGiven 07/18/2025 10:01 AM EST10 mg predniSONE (Deltasone) tablet 5 mg 5 mg, oral, Daily, First dose (after last modification) on Wed07/21/25 at 1000, For 91 doses Given07/24/2025 9:11 AM EST5 qmQnntb5007/23/2025 9:20 AM EST5 qsPcnvy5807/22/2025 10:08 AM EST5 mg sod phos di, mono-K phos mono (K Phos Neutral) tablet 1 tablet 1 tablet (250 mg), oral, 4 times daily, First dose on Wed07/24/25 at 1000, For 99 days, Each tablet contains 250 mg phosphorus, 298 mg sodium, 1.1 mEq potassium. Given07/24/2025 1:37 PM EST1 zabegjChsho74/23/2025 9:10 AM EST1 tablet sod phos di, mono-K phos mono (K Phos Neutral) tablet 2 tablet 2 tablet (500 mg), oral, Every 4 hours, First dose on Wed07/20/25 at 0915, For 4 doses, Each tablet contains 250 mg phosphorus, 298 mg sodium, 1.1 mEq potassium. Given07/20/2025 10:15 PM EST2 pllmacuJrpem82/19/2025 5:40 PM EST2 tabletsGiven 07/20/2025 12:32 PM EST2 tablets sodium bicarbonate 75 mEq in sodium chloride 0.45 % 1,000 mL infusion 75 mL/hr, intravenous, Continuous, Starting on Wed07/20/25 at 1200, For 1 day Rate/Dose Rllapo4107/21/2025 9:03 AM EST75 mL/hr75 mL/hrRate/Dose Akrytb4707/21/2025 6:19 AM EST75 mL/hr75 mL/hrNew 07/21/2025 4:49 AM EST75 mL/hr75 mL/hr sodium bicarbonate 75 mEq in sodium chloride 0.45 % 1,000 mL infusion 75 mL/hr, intravenous, Continuous, Starting on Wed07/22/25 at 1015, For 1 day Rate/Dose Vddcmf1607/23/2025 2:33 AM EST75 mL/hr75 mL/hrNew 07/23/2025 1:48 AM EST75 mL/hr75 mL/hrRate/Dose Oooewc5807/23/2025 12:12 AM EST75 mL/hr75 mL/hr sodium bicarbonate 75 mEq in sodium chloride 0.45 % 1,000 mL infusion 75 mL/hr, intravenous, Continuous, Starting on Wed07/23/25 at 1145, For 1 day New 07/24/2025 6:56 AM EST75 mL/hr75 mL/hrRate/Dose Cjhoxi4407/24/2025 4:13 AM EST75 mL/hr75 mL/hrRate/Dose Fvdmwn2707/23/2025 10:19 PM EST75 mL/hr75 mL/hr sodium bicarbonate tablet 650 mg 650 mg, oral, 2 times daily, First dose on Wed07/20/25 at 1000, For 99 days Given07/24/2025 9:11 AM PRA043 whVbgsk4607/23/2025 10:01 PM JAN215 mgGiven 07/23/2025 9:20 AM ACN989 mg sodium bicarbonate tablet 650 mg 650 mg, oral, 2 times daily, First dose on Wed07/24/25 at 1130, For 99 days Given07/24/2025 11:54 AM XCV558 mg sodium chloride 0.9 % bolus 1,000 [...] that apply): Medical Prophylaxis Given07/23/2025 9:20 AM BXD174 kjXpvjn8307/20/2025 10:47 AM XON270 mgGiven 07/18/2025 10:01 AM OSF568 mg tacrolimus ER (Envarsus XR) tablet ER 4 mg 4 mg, oral, Daily, First dose on Wed07/13/25 at 2030, For 99 days, Do not crush, chew, or split. [facility] policy requires tacrolimus extended-release (Astragraf XL, Envarsus XR) to be administered at 6 AM. Do not change the start times without notifying the provider. Given07/24/2025 9:10 AM EST4 xgZewnl3107/23/2025 9:20 AM EST4 hoDpheg3807/22/2025 10:09 AM EST4 mg tamsulosin (Flomax) 24 hr capsule 0.8 mg 0.8 mg, oral, Daily, First dose on Wed07/13/25 at 2030, For 99 days, Do not crush, chew, or split. Given07/24/2025 9:11 AM EST0.8 voAmapw9307/23/2025 9:19 AM EST0.8 mgGiven 07/22/2025 10:09 AM EST0.8 mg valGANciclovir (Valcyte) tablet 450 mg 450 mg, oral, Daily, First dose on Wed07/13/25 at 2030, For 103 doses, Do not crush, chew, or split., Coverage: Varicella zoster, Infection Site: Prophylaxis Given07/16/2025 10:09 AM EYS546 tePqjrt9207/15/2025 10:21 AM GQZ668 mgGiven 07/14/2025 11:00 AM CCM969 mg vancomycin (Vancocin) capsule 125 mg 125 mg, oral, 4 times daily, First dose on Wed07/13/25 at 2200, For 21 doses, Episode (Specify): initial episode, non-severe (WBC < 15,000 and SCr < 1.5) Given07/18/2025 10:01 AM PVW213 yuBnolf3807/17/2025 10:29 PM MMH004 mgGiven 07/17/2025 5:04 PM DYI625 mgdocumented in this encounter Active and Recently [...] RN) * 1719 (Given - Provider: Kellee Roberts RN) * 0919 (Given - Provider: Kellee Roberts, RN) * 1611 (Given - Provider: Kellee Roberts RN) * 0912 (Given - Provider: Estella [...] Bacteremia * 0234 (Stopped - Provider: Gloria Rolon, JUANA) * 0639 (New Bag - Provider: Gloria Rolon, RN) * 1039 (Stopped - Provider: Kellee Roberts RN) * 1816 (New Bag - Provider: Kellee Roberts RN - Comment: needed second iv access) * 2216 (Stopped - Provider: Michel Parsons RN) * 2306 (New Bag - Provider: Michel Parsons, RN) * 0306 (Stopped - Provider: Michel Parsons, RN) * 0639 (New Bag - Provider: Michel Parsons RN) * 0900 (Stopped - Provider: Kellee Roberts RN) cholecalciferol (Vitamin D-3) tablet 5,000 Units 5,000 Units, oral, Daily, First dose on Wed07/19/25 at 1215, For 99 days * 1008 [...] * 1614 (New Bag - Provider: Kellee Roberts RN) * 1644 (Stopped - Provider: Kellee Roberts RN) * 1337 (New Bag - Provider: Estella [...] Prophylaxis * 2148 (Given - Provider: Michel Parsons RN) * 2201 (Given - Provider: Michel Parsons RN) finasteride (Proscar) tablet 5 mg 5 mg, oral, Daily, First dose on Wed07/13/25 at 2030, For 99 days, Do not crush, chew, or split. * 1008 (Given - Provider: Kellee Roberts RN) * 0920 (Given - Provider: Kellee Roberts, JUANA) * 0911 (Given - Provider: Estella Barry, RN) heparin (porcine) injection 5,000 Units 5,000 Units, subcutaneous, 2 times daily, First dose on Wed07/21/25 at 1300, For 99 days * 1008 (Given - Provider: Kellee Roberts, RN) * 2148 (Given - Provider: Michel Parsons, RN) * 0918 (Given - Provider: Kellee Roberts, JUANA) * 2201 (Given - Provider: Michel Parsons, JUANA) * 0910 (Given - Provider: Estella Barry, RN) hydrALAZINE (Apresoline) tablet 100 mg 100 mg, oral, 3 times daily, First dose on Wed07/13/25 at 2200, For 99 days * 1008 (Given - Provider: Kellee Roberts RN) * 1719 (Given - Provider: Kellee Roberts, RN) * 2151 (Given - Provider: Michel Parsons, RN) * 0919 (Given - Provider: Kellee Roberts, JUANA) * 1611 (Given - Provider: Kellee Roberts, JUANA) * 2201 (Given - Provider: Michel Parsons, RN) * 0911 (Given - Provider: Estella Barry, RN) * 1600 (Canceled Entry - Provider: Automatic [...] finishing) * 1114 (Stopped - Provider: Kellee Roberts, RN) * 1142 (New Bag - Provider: Kellee Roberts RN) * 1242 (Stopped - Provider: Kellee Roberts RN) * 1302 (New Bag - Provider: Kellee Roberts, JUANA) * 1402 (Stopped - Provider: Kellee Roberts, RN) * 1451 (New Bag - Provider: Kellee Roberts, RN) * 1551 (Stopped - Provider: Kellee Roberts RN) megestrol (Megace) suspension 800 mg (CANCELED) [...] oral, Daily before breakfast, First dose on 07/14/25 at 0730, For 99 days, Do not crush,chew, or split., Indication: Stress Ulcer Prophylaxis * 0639 (Given - Provider: Gloria Rolon RN) * 0639 (Given - Provider: Michel Parsons, JUANA) * 0700 (Given - Provider: Michel Parsons, JUANA) predniSONE (Deltasone) tablet 5 mg 5 mg, oral, Daily, First dose (after last modification) on 07/21/25 at 1000, For 91 doses * 1008 (Given - Provider: Kellee Roberts RN) * 0920 (Given - Provider: Kellee Roberts, JUANA) * 0911 (Given - Provider: Estella Barry, JUANA) sod phos di, mono-K phos mono (K Phos Neutral) tablet 1 tablet 1 tablet (250 mg), oral, 4 times daily, First dose on Wed07/24/25 at 1000, For 99 days, Each tablet contains 250 mg phosphorus, 298 mg sodium, 1.1 mEq potassium. * 0910 (Given - Provider: Estella Barry RN) * 1337 (Given - Provider: Estella Barry RN) * 1800 (Canceled Entry - Provider: Automatic Discharge Provider - Comment: Automatically canceled at discontinue of medication order) sodium bicarbonate tablet 650 mg 650 mg, oral, 2 times daily, First dose on Wed07/20/25 at 1000, For 99 days * 1008 (Given - Provider: Kellee Roberts RN) * 2148 (Given - Provider: Michel Parsons, RN) * 0920 (Given - Provider: Kellee Roberts RN) * 2201 (Given - Provider: Michel Parsons, RN) * 0911 (Given - Provider: Estella Barry RN) sodium bicarbonate tablet 650 mg 650 mg, oral, 2 times daily, First dose on Wed07/24/25 at 1130, For 99 days * 1154 (Given - Provider: Estella Barry RN) sodium chloride flush 10 mL 10 mL, intravenous, Every 12 hours, First dose on Wed07/24/25 at 1215, For 99 days, Line care whennot receiving infusions. * 1215 (Not Given - Provider: Estella Barry RN - Reason: Other - Comment: given by [...] days, Do not crush, chew, or split. [facility] policy requires tacrolimus extended-release (Astragraf XL, [...] (Given - Provider: Estella Barry, RN) Medication Order// sodium bicarbonate 75 mEq in sodium chloride 0.45 % 1,000 mL infusion () 75 mL/hr, intravenous, Continuous, Starting on Wed07/22/25 at 1015, For 1 day * 1159 (New Bag - Provider: Kellee Roberts RN) * 1828 (Rate/Dose Verify - Provider: Kellee Roberts RN) * 0012 (Rate/Dose Verify - Provider: Michel Parsons RN) * 0148 (New Bag - Provider: Michel Parsons RN) * 0233 (Rate/Dose Verify - Provider: Michel [...] * 0413 (Rate/Dose Verify - Provider: Michel Parsons, JUANA) * 0656 (New Bag - Provider: Michel Parsons RN) * 1144 (Stopped - Provider: Estella Barry RN - Comment: [Order ends at this time. Document the following action when infusion is complete: Stopped]) Medication Order/ acetaminophen (Tylenol) tablet 650 mg 650 [...] (confirmed) Comment:Tested positive last 07/08/2025 at the [facility]. Patient is immune compromised /MDR Mrdgsc40documented as of this encounter Care Teams Team MemberRelationshipSpecialtyStart DateEnd Date Abebe [place] MD [address] [place] [address], [address] [place] [address] PCP - GeneralInternal Medicine09/21/24 Abebe Tan MD [address] [place] [id number] Consulting PhysicianUrology04/07/25documented as of this encounter
--- OUTSIDE RECORDS SUMMARY | 2025-07-27 15:29 | XMS_ITS | Encounter Summary ---
Author Organization [facility] [employer] [facility] tem Address [id number] [address] [place] [address] Care Team Providers Care Manager Market Development Name Role Phone Abebe [place] MD Primary Care Provider Encounter Details DateTypeDepartmentCare Team (Latest Contact Info)Hagkdnacdoq35/12/2025Results Follow-Up [facility] - Emergency [address] [place] [address] Shante Paz RN Blood culture, Blood culture, Urine Culture Urine, Clean Catch Midstream Social History Tobacco UseTypesPacks/DayYears UsedDateSmoking Tobacco: NeverSmokeless Tobacco: NeverAlcohol UseStandard Drinks/WeekCommentsNot Currently0 (1 standard drink = 0.6 oz pure alcohol)AUDIT-CAnswerDate RecordedQ1: How often do you have a drink containing alcohol?Never09/12/2020Q2: How many drinks containing alcohol do you have on a typical day when you are drinking?1 or Q3: How often do you have six or more drinks on one occasion?Never1PHQ-2AnswerDate Recorded Total Oyzcp891/22/2024ChildcareAnswerDate MsvobuuuBljgrrafhDbvyzvv11/12/2019 EmploymentAnswerDate IcfocgzcSzvtokhqcfPlrvmoh96/12/2019Hunger ScreeningAnswer Date RecordedWithin the past 12 months we worried whether our food would run out before we got money to buy more.Never True07/12/2025Within the past 12 months the food we bought just didn't last and we didn't have money to get more.Never True07/12/2025Purpose - LifeAnswerDate RecordedPurpose and direction in life Muefzdg4109/12/2020ex and Gender InformationValueDate RecordedSex Assigned at BirthNot on fileLegal WwvHkgx1903/07/2015 11:39 AM EDTGender IdentityNot on file Sexual [...] Team MemberRelationshipSpecialtyStart DateEnd Date Abebe [place] MD [address] [place] [address], [address] [place] [address] PCP - MfnxeqnNmjnmtdczb63/20/17documented as of this encounter
--- OUTSIDE RECORDS SUMMARY | 2025-07-27 15:29 | XMS_ITS | Encounter Summary ---
Author Organization [facility] tem Address [id number] [address] [place] [address] Care Team Providers Care Vehicle Controls Engineer Name Role Phone Abebe [place] MD Primary Care Provider [phone] Reason for Visit * ReasonOnset DateCommentsTransition Of Care07/25/2025 Encounter Details DateTypeDepartmentCare Team (Latest Contact Info)Zlmiaeuolbd65/24/2025[facility]phone [facility] [address] [facility] [address] [place] [address] Zhanna Gabriel, JUANA Transition Of Care Social History Tobacco UseTypesPacks/DayYears [...] more drinks on one occasion?Never09/12/2020HQ-2AnswerDate Recorded Total Frlnq573/22/2024ChildcareAnswerDate GaimegooFbsbhvgloGgtirwq44/12/2019 EmploymentAnswerDate GbcmoakxFtcnzpmgubFqcblwc84/12/2019Hunger ScreeningAnswer Date RecordedWithin the past 12 months we worried whether our food would run out before we got money to buy more.Never True07/12/2025Within the past 12 months the food we bought just didn't last and we didn't have money to get more.Never True07/12/2025Purpose - LifeAnswerDate RecordedPurpose and direction in life Goamotb0709/12/2020ex and Gender InformationValueDate RecordedSex Assigned at BirthNot on fileLegal RlaBnfn5903/07/2015 11:39 AM EDTGender IdentityNot on file Sexual OrientationNot on filedocumented as of this encounter Miscellaneous Notes * Telephone Encounter - Zhanna Gabriel RN - 07/25/2025 8:52 AM EST DC to [place] after transplant services 07/24/25 documented in this encounter Plan of Treatment [...] Team MemberRelationshipSpecialtyStart DateEnd Date Abebe [place] MD [address] [place] [address], [address] [place] [address] PCP - KxsukqsOueklgnwix45/20/17documented as of this encounter
--- OUTSIDE RECORDS SUMMARY | 2025-07-27 15:29 | XMS_ITS | Clinical Summary ---
Author Organization [facility] Address [address] [place] [address] Care Team Providers Care Wing Mailer Machine Operator Name Role Phone Unavailable Primary Care Provider Unavailabl e Social History Tobacco UseTypesPacks/DayYears UsedDateSmoking Tobacco: Never AssessedSex and Gender InformationValueDate RecordedSex Assigned at BirthNot on fileLegal Sex Male10/14/2022 7:30 PM EDTGender IdentityNot on fileSexual OrientationNot on file Plan of Treatment Not on file Insurance
--- OUTSIDE RECORDS SUMMARY | 2025-07-27 15:30 | XMS_ITS | Clinical Summary ---
Author Organization [employer] tem Address [id number] [address] 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 Name Role Phone Abebe Stewart MD Primary Care Provider [phone] Allergies Active AllergyReactionsCriticalityNoted UphdYlickseeWmdvtssrnw97/22/2021 Leg edema Shellfish ZvhshrhPbnowrjiKdbmdg75/01/2021 Medications MedicationSigDispense QuantityRefillsLast FilledStart DateEnd DateStatus bumetanide (BUMEX) 1 mg tablet Take 1 [...] 1 TABLET (20 MG) BY MOUTH AT ACBSLPX79/22/2025Active finasteride (PROSCAR) 5 mg tablet Take 1 tablet (5 mg total) by mouth in the morning.6Active magnesium glycinate 100 mg magnesium capsule Take 300 mg by mouth 3 (three) times a day.5Active mycophenolate (MYFORTIC) 180 mg EC tablet Take 3 tablets (540 mg total) by mouth in the morning and 3 tablets (540 mg total) before bedtime.5Active NIFEdipine XL (PROCARDIA XL) 30 mg 24 hr tablet Take 1 tablet (30 mg total) by mouth in the morning.5Active nystatin (MYCOSTATIN) 100,000 unit/mL suspension Take 5 [...] WATER AND DRINK ONCE DAILY IN THE CFUBGYY0504/04/2025tive tamsulosin (FLOMAX) 0.4 mg capsule Take 2 capsules (0.8 mg total) by mouth in the morning.05/16/2025tive hydrALAZINE (APRESOLINE) 100 mg tablet Take 1 tablet (100 mg total) by mouth 3 (three) times a day. 90 tablet 5Active carvediloL (COREG) 25 mg tablet Take 1 tablet (25 mg total) by mouth in the morning and 1 tablet (25 mg total) in the evening. Takewith meals. 180 tablet 5Active CEPHalexin (KEFLEX) 500 mg capsule Take 1 capsule (500 mg total) by mouth in the morning and 1 capsule (500 mg total) at noon and 1 capsule (500 mg total) in the evening and 1 capsule (500 mg total) before bedtime. Do all this for 10 days. 40 capsule Expired Active Problems ProblemNoted DateDiagnosed DateCKD (chronic kidney disease) stage 5, GFR less than 15 ml/min05/23/2024Long term (current) use of mgmddsumtfvtnr55/14/2021 HypertensionH/O splenectomy Resolved Problems ProblemNoted DateDiagnosed DateResolved DateAcute deep vein thrombosis (DVT) of proximal vein of left lower mbtosqtjb49VT (deep venous thrombosis)/Stage 4 chronic kidney ziaheca1405/23/2024 Encounters DateTypeDepartmentCare EielLwhnkptwlkl52/24/2025Telephone [facility] [address] [place] [address] Zhanna Gabriel, laborer adjustable steel joist Of Care07/13/2025Results Follow-Up [facility] [address] [place] [address] Shante Paz RN Blood culture, Blood culture, Urine Culture Urine, Clean Catch Midstream 07/12/2025 3:27 PM EST - 07/13/2025 1:16 AM ESTEmergency [facility] [address] [place] [address] Kristen Pettit DO Acute cystitis without hematuria (Primary Dx) Discharge Disposition: Home07/12/20255055Yekzrn24/14/2025Refill [facility] [address] [place] [phone] Abebe Stewart MD 05/30/2025Telephone [facility] [address] [place] [address] Zhanna Gabriel, RN Care Stfzvnqcza66/27/2025Orders Only [facility] [address] [place] [address] External, Scanning Provider 05/28/2025Refill [facility] [address] [place] [address] Abebe Stewart MD 05/25/2025 10:45 AM EDTOffice Visit [facility] [address] [place] [address] Abebe Stewart MD Status post kidney transplant (Primary Dx); Urinary qobdwoscs72/24/3252Hqpjsf95/03/2025Telephone [facility] [address] [place] [address] Kandi Ramirez, laborer adjustable steel joist Of Care05/03/2025Telephone [facility] [address] [place] [address] Evita Ortiz, JUANA 05/03/2025Telephone [facility] [address] [place] [address] Zhanna Gabriel, JUANA 04/30/2025Orders Only [facility] [address] [place] [address] External, Scanning Provider 04/29/2025External Services Encounter [facility] Department of [facility] [address] [place] [phone] Quinten Schwartz MD 04/28/2025 8:50 AM EDTAncillary Procedure [facility] [address] [place] [address] Painfrom Last 3 Months Immunizations ImmunizationAdministration DatesNext DueInfluenza, Injectable, quadrivalent (PF) 07/01/2018Pneumococcal Conjugate 13-Kzthzn4708/27/2015Pneumococcal Polysaccharide 09/19/2010 Social History Tobacco UseTypesPacks/DayYears UsedDateSmoking [...] more drinks on one occasion?Never09/12/2020HQ-2AnswerDate Recorded Total Jkbdr665hildcareAnswerDate HxilxwodCwqcfajovBbeajvm55/12/2019 EmploymentAnswerDate PscjlxlzKeutqnmogjRinifjh04/12/2019Hunger ScreeningAnswer Date RecordedWithin the past 12 months we worried whether our food would run out before we got money to buy more.Never True07/12/2025Within the past 12 months the food we bought just didn't last and we didn't have money to get more.Never True07/12/2025Purpose - LifeAnswerDate RecordedPurpose and direction in life Fobnwdc0309/12/2020ex and Gender InformationValueDate RecordedSex Assigned at BirthNot on fileLegal QqcUicf5403/07/2015 11:39 AM EDTGender IdentityNot on file Sexual OrientationNot on file Last Filed Vital Signs Vital SignReadingTime TakenCommentsBlood Uzqahqim342/7807/13/2025 12:45 AM EST Klgdq747107/12/2025 8:50 PM KXXEggeweahjfn49.9 ??C (98.4 ??F)07/12/2025 3:31 PM ESTRespiratory Anrv002809/12/2024 3:31 PM ESTOxygen Plludxzqdn25%07/12/2025 7:15 PM ESTInhaled Oxygen Concentration--Lrpenk07.1 kg (192 lb 1.6 oz)07/12/2025 3:31 PM DUHYbcblu407.4 cm (6' 0.99 )05/25/2025 11:02 AM EDTBody Mass Index25.35 05/25/2025 11:02 AM EDT Plan of Treatment Health MaintenanceDue DateLast DoneCommentsMedicare Annual Wellness Visit 1954dult BMI Follow Up Plan1972Fall Risk Yaohmrrrd83/29/2019COVID- 19 Vaccine ( season)503/03/2025, 04/06/2024, 07/15/2023, Additional history existsInfluenza Crqyktt35/12/2023, 07/15/2023, 07/01/2018Depression Gjccdhsdx08/dult BMI Nuossomss43/11/2026 07/12/2025Tobacco Ajpwxygey86olonoscopy/12/2022, 10/05/2022, 08/22/2015DTaP,Tdap and Td Vaccines (2 - Td or Tdap)12/15/2034 12/15/2024RSV ( or age 60+ yrs)Cckxyhfyk92/23/2024Zoster (Shingles) LprrhsmCrwqryhwu04/23/2024, 07/15/2023 Goals GoalPatient Goal TypeAssociated ProblemsRecent ProgressPatient-Stated?Author Katharina Torres LSW Note: Evaluation of progress towards goal: Safe dc transition from hospital to home pending clinical course. Medical Devices Not on file Procedures Procedure NamePriorityDate/TimeAssociated DiagnosisCommentsPOCT NURSING URINE MACROSCOPIC JDLeoubbk69/11/2025 10:11 PM EST ER EXTRA URINE DCHKXMILVY99/11/2025 10:05 PM EST ER EXTRA QBGEHQGGO61/11/2025 10:05 PM EST URINE RAUHVMYPMWW00/11/2025 10:05 PM EST BLOOD SUXCCGQQMAX79/11/2025 9:01 PM EST BLOOD FMHWFDTVVIW10/11/2025 9:01 PM EST TROP I, HIGH SENSITIVITY 1 GIVXFRHO04/11/2025 5:[address] ABDOMEN AND PELVIS WO XXFHDDNQ58/11/2025 5:16 PM EST XR CHEST 1 ONZXUZ4407/12/2025 5:03 PM EST EXTRA TUBES BLUE OLKGybygiq51/11/2025 4:36 PM EST EXTRA OKXWLUegtagc88/11/2025 4:36 PM EST TROPONIN I, HIGH SENSITIVITY 0 IPVXYVSH28/11/2025 4:36 PM EST TROPONIN I, HIGH SENSITIVITY 0 OKDICUSZ82/11/2025 4:36 PM EST B-TYPE NATRIURETIC XTVIDJSNEJW28/11/2025 4:36 PM EST IETLUPAOOO25/11/2025 4:36 PM EST COMPREHENSIVE METABOLIC QEVDEGVXT31/11/2025 4:36 PM EST CBC WITH AUTO JPKSLRENCWWSLLCC62/11/2025 4:36 PM EST XR ABDOMEN AP 1 CEYxdjjgs05/25/2025 2:14 PM EDTCT BRAIN WO CONT STROKE ALERTSTAT Ublzpvc3504/28/2025 8:50 AM EDT Pain XR CHEST 1 ZICyhpwkf72/27/6545ROATCXWNPIR52/06/2023 10:43 AM EST from Last 3 Months or Most Recently Relevant to Health Maintenance Results * (ABNORMAL) POCT Nursing Urine Macroscopic UA (07/12/2025 10:11 PM EST) ComponentValueRef RangeTest MethodAnalysis TimePerformed AtPathologist SignaturePOC Urine Specific Gravity1.0201.010, 1.015, 1.020, 1.5466407/12/2025 10:12 PM [facility] Urine Leukocyte Esterase Small(A)Vpadgqce47/11/2025 10:12 PM [facility] Urine NitritePositive(A)Asxckjon28/11/2025 10:12 PM [facility] Urine pH7.05.0, 6.0, 6.5, 7.0, 7.5, 8.0, 8.5, 5.5 07/12/2025 10:12 PM [facility] Urine Xsaqngx13 mg/dL(A)Hkwjcgym99/11/2025 10:12 PM ESTC[facility] Urine NagysnnSxokacmrXuocttqu93/11/2025 10:12 PM [facility] Urine TpqciurXcevckfrDuaivask95/11/2025 10:12 PM [facility] Urine Urobilinogen0.2 E.U./dL07/12/2025 10:12 PM [facility] Urine BilirubinNegativeNegative 07/12/2025 10:12 PM ESTC[facility] Urine Blood/HGB SgofijsoDnzhvqvp75/11/2025 10:12 PM [facility] Specimen (Source)Anatomical Location / LateralityCollection Method / Volume Collection TimeReceived OeenEdxde55/11/2025 10:11 PM EST07/12/2025 10:12 PM EST Narrative Authorizing ProviderResult TypeResult StatusKristen Pettit DOPOINT OF CARE TEST ORDERABLESFinal ResultPerforming OrganizationAddressCity/State/ZIP CodePhone Number [facility] [address] [place] [address], * Extra Urine Chase (07/12/2025 10:05 PM EST)ComponentValueRef RangeTest Method Analysis TimePerformed AtPathologist SignatureExtra TubeAuto Resulted 07/13/2025 12:02 AM [facility] (Source) Anatomical Location / LateralityCollection Method / VolumeCollection Time Received TimeUrineUrine specimen collection, clean catch / Mefkjvq1007/12/2025 10:05 PM EST07/12/2025 10:14 PM EST Narrative Authorizing ProviderResult TypeResult StatusKristen COX ORDERABLES Final ResultPerforming OrganizationAddressCity/State/ZIP CodePhone Number [address] [address], [place] * Extra Urine (07/12/2025 10:05 PM EST)ComponentValueRef RangeTest Method Analysis TimePerformed AtPathologist SignatureExtra TubeAuto Resulted 07/13/2025 12:02 AM ESTPROREDWOOD [facility]ITALpecpied[facility] (Source) Anatomical Location / LateralityCollection Method / VolumeCollection Time Received TimeUrineUrine specimen collection, clean catch / Rbrgfje2107/12/2025 10:05 PM EST07/12/2025 10:14 PM EST Narrative Authorizing ProviderResult TypeResult StatusKristen Pettit DOURINE ORDERABLES Final ResultPerforming OrganizationAddressty/State/ZIP CodePhone Number [address] [place] [address], * (ABNORMAL) Urine Culture Urine, Clean Catch Midstream (07/12/2025 10:05 PM EST)ComponentValueRef RangeTest MethodAnalysis TimePerformed AtPathologist SignatureCULTURE RESULTS>100,000 CFU/mL Pseudomonas aeruginosa(A)07/15/2025 4:42 PM [facility] LABORATORYSpecimen (Source)Anatomical Location / LateralityCollection Method / VolumeCollection TimeReceived Time UrineUrine specimen collection, clean catch / Tcchywp3507/12/2025 10:05 PM EST 07/12/2025 10:14 PM EST Narrative OrganismAntibioticMethodSusceptibilityPseudomonas aeruginosaPIPERACIL/TAZOBACTAM 16: Susceptible Pseudomonas aeruginosaCefepime 4.0: Susceptible Pseudomonas aeruginosaMeropenem 2.0: Susceptible Pseudomonas aeruginosaAmikacin 2.0: Susceptible Pseudomonas aeruginosaTobramycin <=1.0: Susceptible Pseudomonas aeruginosaCiprofloxacin 1.0: Intermediate Pseudomonas aeruginosaLevofloxacin 4.0: Resistant Authorizing ProviderResult TypeResult StatusKristen Pettit DOMICROBIOLOGY - GENERAL ORDERABLESFinal ResultPerforming OrganizationAddressCity/State/ZIP Code Phone Number [facility] [address] [place] [address], * Blood culture (07/12/2025 9:01 PM EST) Only the most recent of2 resultswithin the time period is included. ComponentValueRef RangeTest MethodAnalysis TimePerformed AtPathologist Signature CULTURE RESULTSNO GROWTH 5 DAYS07/18/2025 3:02 AM [facility] LABORATORYSpecimen (Source)Anatomical Location / LateralityCollection Method / VolumeCollection TimeReceived TimeBloodVenous blood / UnknownVenipuncture / Wwbcujs4007/12/2025 9:01 PM EST07/12/2025 9:24 PM EST Narrative [facility] - 07/18/2025 3:02 AM EST Suboptimal volume of blood collected, Results may be affected. Authorizing ProviderResult TypeResult StatusKristen Pettit DOMICROBIOLOGY - GENERAL ORDERABLESFinal ResultPerforming OrganizationAddressCity/State/ZIP Code Phone Number [facility] [address] [place] [address], * (ABNORMAL) Troponin I, High Sensitivity 1 Hour (07/12/2025 5:50 PM EST) ComponentValueRef RangeTest MethodAnalysis TimePerformed AtPathologist SignatureTROPONIN I, HIGH JOVAMDDLDFA05(H)<21 ng/L109/12/2024 6:32 PM EST [facility] (Source)Anatomical Location / LateralityCollection Method / VolumeCollection TimeReceived TimeBloodVenous blood / UnknownVenipuncture / Ipurjwx8407/12/2025 5:50 PM EST07/12/2025 5:57 PM EST Narrative [facility] - 07/12/2025 6:32 PM EST Elevations of hs-Troponin may be due to causes other than myocardial ischemia. Recommend serial hs-Troponin testing be performed. For the initial evaluation and management of chest pain patients, refer to the algorithms linked below. Emergency Patient: [email or web address] Inpatient: [email or web address] Authorizing ProviderResult TypeResult StatusAlisalisa Pettit COUNT INCLUDES THE [facility] BLOOD ORDERABLESFinal ResultPerforming OrganizationAddressCity/State/ZIP CodePhone Number [facility] [address] [place] [address], [place] * CT abdomen and pelvis without [...] severely dilated ureter. 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 There is a small amount of [...] anastomotic stricture is recommended. 2. 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 There are no renal or ureteral stones. There is no collecting system dilatation in the atrophic chicken ranch kidneys. 3. Trace amount of perihepatic free [...] a severely dilated ureter. There arechronically atrophic chicken ranch kidneys with a left renal cyst. There is noevidence for collecting system dilatation in either the chicken ranch kidneys.There is a small amount of perihepatic [...] anastomotic stricture is recommended. 2. 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 There areno renal or ureteral stones. There is no collecting system dilatation inthe atrophic chicken ranch kidneys. 3. Trace amount of perihepatic free [...] on 07/12/2025 5:32 PM Authorizing ProviderResult TypeResult StatusKristen Pettit [facility] CT ORDERABLES Final Result * X-ray chest 1 view (07/12/2025 5:03 PM EST) Only the most recent of2 resultswithin the time period is included. Anatomical RegionLateralityModalityBody, ChestN/AComputed RadiographySpecimen (Source)Anatomical Location / LateralityCollection Method [...] 5:06 PM Authorizing ProviderResult TypeResult Samuel Pettit [facility] DIAGNOSTIC IMAGING ORDERABLESFinal Result * (ABNORMAL) Troponin I, High Sensitivity 0 Hour (07/12/2025 4:36 PM EST) ComponentValueRef RangeTest MethodAnalysis TimePerformed AtPathologist SignatureTROPONIN I, HIGH WVSVPUFDQDI10(H)<21 ng/L109/12/2024 5:10 PM EST [facility] (Source)Anatomical Location / LateralityCollection Method / VolumeCollection TimeReceived TimeBloodVenous blood / UnknownVenipuncture / Umrwhtl2107/12/2025 4:36 PM EST07/12/2025 4:39 PM EST Narrative Authorizing ProviderResult TypeResult Samuel Pettit [facility] BLOOD ORDERABLESFinal ResultPerforming OrganizationAddressCity/State/ZIP CodePhone Number [facility] [address] [place] [address], * Light Blue Top (07/12/2025 4:36 PM EST)ComponentValueRef RangeTest Method Analysis TimePerformed AtPathologist SignatureExtra TubeAuto Resulted 07/12/2025 6:02 PM ESTPROMEDIUniversity [facility] (Source) Anatomical Location / LateralityCollection Method / VolumeCollection Time Received TimeBloodVenous blood / Stgnzcz9707/12/2025 4:36 PM EST07/12/2025 4:41 PM EST Narrative Authorizing ProviderResult TypeResult Samuel Pettit COUNT INCLUDES THE [facility] BLOOD ORDERABLESFinal ResultPerforming OrganizationAddressCity/State/ZIP CodePhone Number [facility] [address] [place] [address], * (ABNORMAL) CBC auto differential (07/12/2025 4:36 PM EST)ComponentValueRef RangeTest MethodAnalysis TimePerformed AtPathologist DjjtbvrolBZQ93.5(H)4 - 11 10^9/L109/12/2024 5:28 PM ESTPROMARIAN REGIONAL MEDICAL CENTERRBC Count2.87 (L)4.1 - 5.7 10^12/L109/12/2024 5:28 PM [facility]DELA[facility] Hemoglobin9.6(L)13 - 17 g/dL07/12/2025 5:28 PM ESTDELAWARE COUNTY HOSPITALHematocrit28.8(L)39 - 50 %07/12/2025 5:28 PM ESTDELAWARE COUNTY HOSPITALMCV10080 - 100 fL07/12/2025 5:28 PM ESTDELAWARE COUNTY HOSPITALMCH33.427 - 34 pg07/12/2025 5:28 PM ESTDELAWARE COUNTY HOSPITALMCHC33.332 - 36 g/dL07/12/2025 5:28 PM ESTDELAWARE COUNTY HOSPITALRDW16.4(H)11.5 - 15 %07/12/2025 5:28 PM ESTDELAWARE COUNTY HOSPITALPlatelet Xaddu114784 - 450 10^9/L109/12/2024 5:28 PM EST [facility]ITALMPV9.67 - 12 fL07/12/2025 5:28 PM EST [facility]ITALNeutrophils %87%07/12/2025 5:28 PM EST [facility]ITALComment:This is an appended report. These results have been appended to a previously preliminary verified report. Lymphocytes %9%07/12/2025 5:28 PM ESTDELAWARE [facility]PITAL Comment:This is an appended report. These results have been appended to a previously preliminary verified report.Monocytes %4%07/12/2025 5:28 PM EST [facility]Comment:This is an appended report. These results have been appended to a previously preliminary verified report. Neutrophils Absolute (M)10.9(H)1.5 - 6.6 10^9/L109/12/2024 5:28 PM [facility]ment:This is an appended report. These results have been appended to a previously preliminary verified report.Lymphocytes Absolute1.11.0 - 3.5 10^9/L109/12/2024 5:28 PM [facility]IComment:This is an appended report. These results have been appended to a previously preliminary verified report.Monocytes Absolute0.50.0 - 0.9 10^9/L109/12/2024 5:28 PM [facility]IComment:This is an appended report. These results have been appended to a previously preliminary verified report.Smudge Cells1+07/12/2025 5:28 PM [facility]omment:This is an appended report. These results have been appended to a previously preliminary verified report.[place] Cells1+ 07/12/2025 5:28 PM [facility]omment:This is an appended report. These results have been appended to a previously preliminary verified report.RBC Fragments1+07/12/2025 5:28 PM [facility]omment:This is an appended report. These results have been appended to a previously preliminary verified report.Differential TypeMANUAL AWTVAMBDLREE51/11/2025 5:28 PM [facility]IComment: This is an appended report. These results have been appended to a previously preliminary verified report.Specimen (Source)Anatomical Location / Laterality Collection Method / VolumeCollection TimeReceived TimeBloodVenous blood / UnknownVenipuncture / Ecptuvd0907/12/2025 4:36 PM EST07/12/2025 4:40 PM EST Narrative Authorizing ProviderResult TypeResult StatusAlisa Kia Pettit COUNT INCLUDES THE [facility] BLOOD ORDERABLESFinal ResultPerforming OrganizationAddressCity/State/ZIP CodePhone Number [address] [address], [place] * (ABNORMAL) B-type natriuretic peptide (07/12/2025 4:36 PM EST)ComponentValue Ref RangeTest MethodAnalysis TimePerformed AtPathologist IovtddpkfHVJ485(H) <=100 pg/mL07/12/2025 5:46 PM ESTKe[facility]an Private Hospital (Source)Anatomical Location / LateralityCollection Method / VolumeCollection TimeReceived TimeBloodVenous blood / UnknownVenipuncture / Necuknq0407/12/2025 4:36 PM EST07/12/2025 4:40 PM EST Narrative Authorizing ProviderResult TypeResult StatusAlisa Kia DOMÍNGUEZAB BLOOD ORDERABLESFinal ResultPerforming OrganizationAddressCity/State/ZIP CodePhone Number [address] [address], [place] * Lipase (07/12/2025 4:36 PM EST)ComponentValueRef RangeTest MethodAnalysis Time Performed AtPathologist LpwvhejguBQKOJY3768 - 40 U/L109/12/2024 5:00 PM EST [facility] (Source)Anatomical Location / LateralityCollection Method / VolumeCollection TimeReceived TimeBloodVenous blood / UnknownVenipuncture / Rhryszy2207/12/2025 4:36 PM EST07/12/2025 4:39 PM EST Narrative Authorizing ProviderResult TypeResult StatusAlisa Kia DOMÍNGUEZAB BLOOD ORDERABLESFinal ResultPerforming OrganizationAddressCity/State/ZIP CodePhone Number [address] [address], [place] * (ABNORMAL) Comprehensive metabolic panel (07/12/2025 4:36 PM EST)Component ValueRef RangeTest MethodAnalysis TimePerformed AtPathologist SignatureSODIUM 512733 - 146 mmol/L109/12/2024 5:03 PM ESTPROMAR[facility] POTASSIUM4.63.5 - 5.0 mmol/L109/12/2024 5:03 PM ESTPROMARIAN REGIONAL MEDICAL CENTERCHLORIDE10898 - 109 mmol/L109/12/2024 5:03 PM [facility]INNATICARBON OAWJSTJ7617 - 32 mmol/L109/12/2024 5:03 PM [facility]IANION GAP65 - 15 mmol/L109/12/2024 5:03 PM [facility]ENTERBLOOD UREA RCXWXTML055 - 27 mg/dL07/12/2025 5:03 PM [facility]NATICREATININE1.38(H)0.70 - 1.20 mg/dL07/12/2025 5:03 PM [facility]IComment:METHOD TRACEABLE TO IDMS CKWGSWILAEGBJRT544(H)65 - 99 mg/dL07/12/2025 5:03 PM [facility] CENTERCALCIUM7.8(L)8.5 - 10.5 mg/dL07/12/2025 5:03 PM [facility]INNATITOTAL PROTEIN4.8(L)6.0 - 8.0 g/dL07/12/2025 5:03 PM [facility] CINCINNATIALBUMIN2.2(L)3.2 - 5.3 g/dL07/12/2025 5:03 PM [facility] CINCINNATIALKALINE SZKWXFJCRXD9632 - 130 U/L109/12/2024 5:03 PM [facility]NATIAST18<=41 U/L109/12/2024 5:03 PM [facility] ALT17<=40 U/L109/12/2024 5:03 PM [facility] BILIRUBIN,TOTAL0.80.3 - 1.2 mg/dL07/12/2025 5:03 PM [facility] CINCINNATIEGFR Non-Race Yeynazaxh33(L)>=60 ml/min/1.73sq.m109/12/2024 5:03 PM [facility]IComment: eGFR not reported due to non-numeric value for Creatinine. Reported eGFR is based on the CKD-EPI 2020 equation that does not use a race coefficient. Specimen (Source)Anatomical Location / LateralityCollection Method / Volume Collection TimeReceived TimeBloodVenous blood / UnknownVenipuncture / Unknown 07/12/2025 4:36 PM EST07/12/2025 4:39 PM EST Narrative Authorizing ProviderResult TypeResult StatusKristen Pettit DOL BLOOD ORDERABLESFinal ResultPerforming OrganizationAddressCity/State/ZIP CodePhone Number [facility] [address] [place] [address], [place] * X-ray abdomen ap 1 view (05/26/2025 2:14 PM EDT)Anatomical RegionLaterality ModalityBody, AbdomenN/AComputed Radiography Narrative Authorizing ProviderResult TypeResult StatusScanning Provider ExternalIMG DIAGNOSTIC IMAGING ORDERABLESFinal Result * CT brain without contrast stroke alert (04/28/2025 8:50 AM EDT)Specimen (Source)Anatomical Location / LateralityCollection Method / VolumeCollection TimeReceived Time Narrative Authorizing ProviderResult TypeResult StatusScanning Provider ExternalIMG CT ORDERABLESFinal Result * Colonoscopy (10/05/2022 10:43 AM EST)Specimen (Source)Anatomical Location / LateralityCollection Method / VolumeCollection TimeReceived Time10/05/2022 10:43 AM EST Narrative PM CARDIOVASCULAR - 10/05/2022 11:08 AM EST [facility] Patient Name: Alberto Waller ?? Procedure Date No Time: 10/05/2022 ?? CSN : [id number] Date of : 1955 Admit Type: Outpatient Age: 67 Room: [place] [address] Gender: Male Note Status: Finalized Attending MD: Alberto Mensah DO Procedure: ? Colonoscopy Indications: ? Rectal bleeding Providers: ? Alberto Mensah DO Referring MD: ?Alberto Mensah DO Medicines: ? Propofol per Anesthesia Complications: ? No immediate complications. Procedure: ? After I obtained informed consent, the scope was ? passed under direct vision. Throughout the procedure, ? the patient's blood pressure, pulse, and oxygen ? saturations were monitored continuously. The [facility] ? [id number] #[id number] ADULT COLONOSCOPE was introduced ? through the [...] Procedure Code(s): ? --- Professional --- ? 13741, Colonoscopy, flexible; with removal of ? tumor(s), [...] abscess ? without bleeding CPT copyright 2020 [employer]. All rights reserved. The codes documented in this report are preliminary and upon carcass trimmer review may be revised to meet current compliance requirements. DO Alberto Madrid DO 10/05/2022 11:08:22 AM Number of Addenda: 0 Note Initiated On: 10/05/2022 10:43 AM Procedure Note Alberto Mnesah DO - 10/05/2022 [facility] Patient Name: Alberto Waller Procedure Date No Time: 10/05/2022 CSN : [id number] Date of : 1955 Admit Type: Outpatient Age: 67 Room: [place] [address] Gender: Male Note Status: Finalized Attending MD: Alberto Mensah DO Procedure: Colonoscopy Indications: Rectal bleeding Providers: Alberto Menash DO Referring MD: Alberto Mensah DO Medicines: Propofol per Anesthesia Complications: No immediate complications. Procedure: After I obtained informed consent, the scope was passed under direct vision. Throughout theprocedure, the patient's blood pressure, pulse, and oxygen saturations were monitored continuously. [facility] CF-[id number] #[id number] ADULT COLONOSCOPE was introduced through the anus [...] office PRN. 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 All rights reserved. The codes documented in this report are preliminary and upon carcass trimmer reviewmay be revised to meet current compliance requirements. DO Alberto Madrid DO 10/05/2022 11:08:22 AM Number of Addenda: 0 Note Initiated On: 10/05/2022 10:43 AM Authorizing ProviderResult TypeResult StatusMicjohn VELAZQUEZ PROCEDURE ORDERABLESFinal ResultPerforming OrganizationAddressCity/State/ZIP CodePhone Number PM CARDIOVASCULAR from Last 3 Months or Most Recently Relevant to Health Maintenance Insurance [place] [id number] [place] [id number] Advance Directives * Full Code (Latest Code Status on File) Date ActivatedDate ZpfqydhunkyXlvkidnd79/1/2021 1:12 PM07/08/2021 6:37 PM Care Teams Team MemberRelationshipSpecialtyStart DateEnd Date Abebe Stewart MD [address] [place] [address], [address] [place] [address] PCP - SgwxxkfWuzmgfbeng94/20/17
--- OUTSIDE RECORDS SUMMARY | 2025-07-27 15:30 | XMS_ITS | Patient Health Record ---
Author Organization [facility] [place] Address [address] [place] [address] Care Team Providers Care Operations Tech Name Role Phone Abebe Stewart MD Primary Care Provider Abebe Nazario Unavailable [phone] Allergies Allergen (clinical drug ingredient) Drug/Non Drug [...] W/U Status Risk Notes Problem Essential hypertension (10163964 ) Essential (primary) hypertension (I10) ActiveconfirmedProblemPrimary hyperparathyroidism (76428998)Primary hyperparathyroidism (E21.0)ActiveconfirmedProblemChronic kidney disease stage 5 (288577751)Chronic kidney disease, stage 5 (N18.5)ActiveconfirmedProblemChronic kidney disease stage 4 (628418112)Chronic kidney disease (CKD) stage G4/A1, severely decreased [...]
--- OUTSIDE RECORDS SUMMARY | 2025-07-27 15:30 | XMS_ITS | Encounter Summary ---
Author Organization [facility] Address [address] [place] [address] Care Team Providers Care Manager Strategic Alliances Name Role Phone Abebe Stewart MD Primary Care Provider [phone] Abebe Tan MD Unavailable Encounter Details DateTypeDepartmentCare Team (Latest Contact Info)Jtuyezkislj52/07/2025Telephone [facility] Transplant [address] [place] [address] SortorRadha RN Social History Tobacco UseTypesPacks/DayYears UsedDateSmoking Tobacco: WawgkfTbhgwmjves8219 - 1974Passive Smoke Exposure: PastSmokeless Tobacco: NeverAlcohol UseStandard Drinks/WeekCommentsYes0 (1 standard drink = 0.6 oz pure alcohol)rareSocial Connection and Isolation PanelAnswerDate RecordedIn a typical week, how many times do you talk on the phone with family, friends, or neighbors?More than three times a week04/05/2025How often do you get together with friends or relatives?More than three times a week04/05/2025How often do you attend synagogue or confucianist services?Never04/05/2025Do you belong to any clubs or organizations such as synagogue groups, unions, fraternal or athletic groups, or school groups?No 04/05/2025How often do you attend meetings of the clubs or organizations you belong to?Never04/05/2025re you , , , , never , or living with a partner?Enljmqjpa08/04/2025UDIT-CAnswerDate Recorded Q1: How often do you have a drink containing alcohol?Never04/05/2025Q2: How many drinks containing alcohol do you have on a typical day when you are drinking? Patient does not drink04/05/2025Q3: How often do you have six or more drinks on one occasion?Never04/05/2025PHQ-2AnswerDate RecordedPatient Health Questionnaire-2 Veugg434[facility] [place] of Occup[facility] - Occupational Stress QuestionnaireAnswerDate RecordedDo you feel stress - tense, restless, nervous, or anxious, or unable to sleep at night because yourmind is troubled all the time - these days?Only a eoxnzt9604/05/2025Humiliation, Afraid, Rape, and Kick questionnaireAnswerDate RecordedWithin the last year, have you been afraid of your partner or ex-partner?No07/13/2025Emotionally AbusedNot on file07/13/2025Physically AbusedNot on file07/13/2025Sexually AbusedNot on file 07/13/2025Overall Financial Resource Strain (CARDIA)AnswerDate RecordedHow hard is it for you to pay for the very basics like food, housing, medical care, and heating?Not hard at all07/13/2025HC UtilitiesAnswerDate RecordedIn the past 12 months has the [employer], gas, oil, or water [employer] threatened to shut off services in your home?No07/13/2025TransportationAnswerDate RecordedIn the past 12 months, has lack of transportation kept you from medical appointments or from getting medications?No07/13/2025In the past 12 months, has lack of transportation kept you from meetings, work, or from getting things needed for daily living?07/13/2025Housing Stability Vital SignAnswerDate RecordedIn the last 12 months, was there a time when you were not able to pay the mortgage or rent on time?No07/13/2025In the past 12 months, how many times have you moved where you were living?t any time in the past 12 months, were you homeless or living in a skilled nursing (including now)?No07/13/2025Hunger Vital Sign AnswerDate RecordedWithin the past 12 months, you worried that your food would run out before you got the money to buymore.Never true07/13/2025Within the past 12 months, the food you bought just didn't last and you didn't have money to get more.Never true07/13/2025Sex and Gender InformationValueDate RecordedSex Assigned at AvuvhXugj94/20/2025 6:43 AM ESTLegal MpiVmpx7501/29/2022 12:45 AM EDT Gender QbljetevHuoy72/20/2025 7:43 AM ESTSexual OrientationHeterosexual or Rezzzoqp61/20/2025 7:43 AM ESTdocumented as of this encounter Functional Status * Suicidal IdeationQuestionAnswerDate of AssessmentAuthor1. Wish to be (Lifetime)No07/13/2025 9:05 PM Adrienne Simons RN2. Non-Specific Active Suicidal Thoughts (Lifetime)No07/13/2025 9:05 PM Adrienne Simons RN documented as of this encounter Progress Notes * Radha Bill RN - 07/08/2025 3:24 PM EST [facility] nurse Cecile called TC to inform that pt tested positive for Covid today ( tested positive for C-diff 07/03- getting Vanco 125 BID ). Per verbal order from Dr Yang we will hold Imuran for now and consult with ID in the morning 07/09. Pt is also scheduled to see transplant team 07/09 and we cancelled that appointment for now. Pt had a negative CXR 07/07 , temp 99.0, and complaints ofcongestion. Discussed with nurse the possible interactions with paxlovid and IS medications. If symptoms worsen she will send pt to ED. documented in this encounter Plan of Treatment DateTypeDepartmentCare Team (Latest Contact Info)Wyfmshyonrf81/05/2026 8:00 AM ESTFollow-Up [facility] Transplant [address] [place] [phone] documented as of this encounter Goals GoalPatient Goal TypeAssociated ProblemsRecent ProgressPatient-Stated?Author Blood Pressure < 140/90 Blood Hwnuvtuz688/85(07/24/2025 9:11 AM EST)Crista March RNdocumented as of this encounter Visit Diagnoses Not on filedocumented in this encounter Additional Health Concerns InfectionOnset DateLast IndicatedResolved TimeC.difficile Comment:External result, treatment incomplete 515COVID-19 (confirmed) Comment:[facility] Patient is immune compromised documented as of this encounter Care Teams Team MemberRelationshipSpecialtyStart DateEnd Date Abebe Stewart MD [address] [place] [address], [address] [place] [address] PCP - GeneralInternal Medicine09/21/24 Abebe Tan MD [address] [place] [phone] Consulting PhysicianUrology04/07/25documented as of this encounter
--- OUTSIDE RECORDS SUMMARY | 2025-07-27 15:30 | XMS_ITS | Encounter Summary ---
Author Organization [facility] Address [address] [place] [address] Care Team Providers Care Record Tabulating Clerk Name Role Phone Abebe Stewart MD Primary Care Provider [phone] Abebe Tan MD Unavailable Reason for Visit * ReasonOnset DateCommentsAppointment (Rescheduled)06/19/2025 Encounter Details DateTypeDepartmentCare Team (Latest Contact Info)Ktdmtvejavt90/18/2025Telephone [facility] [address] [place] [phone] Shivani Boyd MA Appointment (Rescheduled) Social History Tobacco UseTypesPacks/DayYears UsedDateSmoking Tobacco: NhfoyeStzdubjclp5871 - 1974Passive Smoke Exposure: PastSmokeless Tobacco: NeverAlcohol UseStandard Drinks/WeekCommentsYes0 (1 standard drink = 0.6 oz pure alcohol)rareSocial Connection and Isolation PanelAnswerDate RecordedIn a typical week, how many times do you talk on the phone with family, friends, or neighbors?More than three times a week04/05/2025How often do you get together with friends or relatives?More than three times a week04/05/2025How often do you attend denominational or hindu services?Never04/05/2025Do you belong to any clubs or organizations such as denominational groups, unions, fraternal or athletic groups, or school groups?No 04/05/2025How often do you attend meetings of the clubs or organizations you belong to?Never04/05/2025re you , , , , never , or living with a partner?Bmzvftzdd65/04/2025UDIT-CAnswerDate Recorded Q1: How often do you have a drink containing alcohol?Never04/05/2025Q2: How many drinks containing alcohol do you have on a typical day when you are drinking? Patient does not drink04/05/2025Q3: How often do you have six or more drinks on one occasion?Never04/05/2025PHQ-2AnswerDate RecordedPatient Health Questionnaire-2 Loudu790FinW[facility] of Occupational Health - Occupational Stress QuestionnaireAnswerDate RecordedDo you feel stress - tense, restless, nervous, or anxious, or unable to sleep at night because yourmind is troubled all the time - these days?Only a pjlpvj6204/05/2025Humiliation, Afraid, Rape, and Kick questionnaireAnswerDate RecordedWithin the last year, have you been afraid of your partner or ex-partner?No07/13/2025Emotionally AbusedNot on file07/13/2025Physically AbusedNot on file07/13/2025Sexually AbusedNot on file 07/13/2025Overall Financial Resource Strain (CARDIA)AnswerDate RecordedHow hard is it for you to pay for the very basics like food, housing, medical care, and heating?Not hard at all07/13/2025HC UtilitiesAnswerDate RecordedIn the past 12 months has the [employer], gas, oil, or water [employer] threatened to shut off services in your [...] were you homeless or living in a retirement (including now)?No07/13/2025Hunger Vital Sign AnswerDate RecordedWithin the past 12 months, you worried that your food would run out before you got the money to buymore.Never true07/13/2025Within the past 12 months, the food you bought just didn't last and you didn't have money to get more.Never true07/13/2025Sex and Gender InformationValueDate RecordedSex Assigned at RxzksTmxx33/20/2025 6:43 AM ESTLegal UrmQrqp8901/29/2022 12:45 AM EDT Gender DfmirsysBpxe28/20/2025 7:43 AM ESTSexual OrientationHeterosexual or Spkqerao58/20/2025 7:43 AM ESTdocumented as of this encounter Functional Status * Suicidal IdeationQuestionAnswerDate of AssessmentAuthor1. Wish to be (Lifetime)No07/13/2025 9:05 PM Adrienne Simons RN2. Non-Specific Active Suicidal Thoughts (Lifetime)No07/13/2025 9:05 PM Adrienne Simons RN documented as of this encounter Miscellaneous Notes * Telephone Encounter - Shivani Boyd MA - 06/19/2025 8:54 AM EST Deana ([facility]) called to reschedule pt's appt (06/19/2025 10:30am wWilmar Singh); pt scheduled 07/24/2025 9:40am Ata Singh documented in this encounter Plan of Treatment DateTypeDepartmentCare Team (Latest Contact Info)Azughvrswss52/05/2026 8:00 AM ESTFollow-Up [facility] Transplant [address] [place] [address] documented as of this encounter Goals GoalPatient Goal TypeAssociated ProblemsRecent ProgressPatient-Stated?Author Blood Pressure < 140/90 Blood Dpqincqi221/85(07/24/2025 9:11 AM EST)Crista March, JUANAdocumented as of this encounter Visit Diagnoses Not on filedocumented in this encounter Additional Health Concerns InfectionOnset DateLast IndicatedResolved TimeC.difficile Comment:External result, treatment incomplete 515COVID-19 (confirmed) Comment:Tested positive last 07/08/2025 at the [facility]. Patient is immune compromised documented as of this encounter Care Teams Team MemberRelationshipSpecialtyStart DateEnd Date Abebe Stewart MD [address] [place] [address], [address] [place] [address] PCP - GeneralInternal Medicine09/21/24 Abebe Tan MD [address] [place] [phone] Consulting PhysicianUrology04/07/25documented as of this encounter
--- OUTSIDE RECORDS SUMMARY | 2025-07-27 15:30 | XMS_ITS | Encounter Summary ---
Author Organization [facility] Address [address] [place] [address] Care Team Providers Care Hydraulic Strainer Operator Name Role Phone Abebe Stewart MD Primary Care Provider [phone] Abebe Tan MD Unavailable Reason for Visit * ReasonCommentslab result Encounter Details DateTypeDepartmentCare Team (Latest Contact Info)Igicdhzsodz59/10/2025Lab [facility] Transplant [address] [place] [address] Trish Alfred MA Social History Tobacco UseTypesPacks/DayYears UsedDateSmoking Tobacco: SvehiuDzltuychqu2343 - 1974Passive Smoke Exposure: PastSmokeless Tobacco: NeverAlcohol UseStandard Drinks/WeekCommentsYes0 (1 standard drink = 0.6 oz pure alcohol)rareSocial Connection and Isolation PanelAnswerDate RecordedIn a typical week, how many times do you talk on the phone with family, friends, or neighbors?More than three times a week04/05/2025How often do you get together with friends or relatives?More than three times a week04/05/2025How often do you attend pentecostal or adventism services?Never04/05/2025Do you belong to any clubs or organizations such as pentecostal groups, unions, fraternal or athletic groups, or school groups?No 04/05/2025How often do you attend meetings of the clubs or organizations you belong to?Never04/05/2025re you , , , , never , or living with a partner?Tmnmdvcin79/04/2025UDIT-CAnswerDate Recorded Q1: How often do you have a drink containing alcohol?Never04/05/2025Q2: How many drinks containing alcohol do you have on a typical day when you are drinking? Patient does not drink04/05/2025Q3: How often do you have six or more drinks on one occasion?Never04/05/2025PHQ-2AnswerDate RecordedPatient Health Questionnaire-2 Rnici345Fin[facility] [place] of Occupational Health - Occupational Stress QuestionnaireAnswerDate RecordedDo you feel stress - tense, restless, nervous, or anxious, or unable to sleep at night because yourmind is troubled all the time - these days?Only a zxqfhr5704/05/2025Humiliation, Afraid, Rape, and Kick questionnaireAnswerDate RecordedWithin the last year, have you been afraid of your partner or ex-partner?No07/13/2025Emotionally AbusedNot on file07/13/2025Physically AbusedNot on file07/13/2025Sexually AbusedNot on file 07/13/2025Overall Financial Resource Strain (CARDIA)AnswerDate RecordedHow hard is it for you to pay for the very basics like food, housing, medical care, and heating?Not hard at all07/13/2025HC UtilitiesAnswerDate RecordedIn the past 12 months has the [employer], gas, oil, or water [employer] threatened to shut off services in your [...] were you homeless or living in a fci (including now)?No07/13/2025Hunger Vital Sign AnswerDate RecordedWithin the past 12 months, you worried that your food would run out before you got the money to buymore.Never true07/13/2025Within the past 12 months, the food you bought just didn't last and you didn't have money to get more.Never true07/13/2025Sex and Gender InformationValueDate RecordedSex Assigned at UspdoJukx07/20/2025 6:43 AM ESTLegal XoyDzue4001/29/2022 12:45 AM EDT Gender ZslsbidhSffz82/20/2025 7:43 AM ESTSexual OrientationHeterosexual or Okszrpso00/20/2025 7:43 AM ESTdocumented as of this encounter Functional Status * Suicidal IdeationQuestionAnswerDate of AssessmentAuthor1. Wish to be (Lifetime)No07/13/2025 9:05 PM Adrienne Simons RN2. Non-Specific Active Suicidal Thoughts (Lifetime)No07/13/2025 9:05 PM Adrienne Simons RN documented as of this encounter Plan of Treatment DateTypeDepartmentCare Team (Latest Contact Info)Edqxtcgivnz64/05/2026 8:00 AM ESTFollow-Up [facility] Transplant [address] [place] [address] NameTypePriorityAssociated DiagnosesDate/TimeExternal VYOUhbRvqqglc71/01/2025 documented as of this encounter Goals GoalPatient Goal TypeAssociated ProblemsRecent ProgressPatient-Stated?Author Blood Pressure < 140/90 Blood Jyfjooyq606/85(07/24/2025 9:11 AM EST)Crista March RNdocumented as of this encounter Procedures Procedure NamePriorityDate/TimeAssociated DiagnosisCommentsEXT COMPREHENSIVE METABOLIC UIOLMVqkuvja56/01/2025 documented in this encounter Results * External Comprehensive metabolic panel (07/02/2025)ComponentValueRef RangeTest MethodAnalysis TimePerformed AtPathologist SignatureExternal Fasting Glucose 118mg/LExternal Creatinine, Serum2.1mg/mLExternal WUD61qf/dLExternal Potassium 4.8mmol/LExternal Sodium, djnke507nsgl/LExternal CO2, wnsrq88bXi/LExternal Fpwmwnvj855wqgg/LExternal Calcium6.9mg/dLComment:corrected calcium 8.34 External Albumin2.2External Protein, total3.9g/dLExternal Alkaline Phosphatase 72U/LExternal ALT27U/LExternal AST13U/LExternal Bilirubin,total0.3mg/dL Specimen (Source)Anatomical Location / LateralityCollection Method / Volume Collection TimeReceived TimeBloodVenous blood specimen / Dmbvtnp5707/02/2025 Narrative Authorizing ProviderResult TypeResult StatusHistorical Provider [facility] EXTERNAL ORDERSFinal Result documented in this encounter Visit Diagnoses Not on filedocumented in this encounter Additional Health Concerns InfectionOnset DateLast IndicatedResolved TimeCOVID-19 (confirmed) Comment:[facility] Patient is immune compromised documented as of this encounter Care Teams Team MemberRelationshipSpecialtyStart DateEnd Date Abebe Stewart MD [address] [place] [address], [address] [place] [address] PCP - GeneralInternal Medicine09/21/24 Abebe Tan MD [address] [place] [phone] Consulting PhysicianUrology04/07/25documented as of this encounter
--- OUTSIDE RECORDS SUMMARY | 2025-07-27 15:30 | XMS_ITS | Encounter Summary ---
Author Organization [facility] Address [address] [place] [address] Care Team Providers Care Expansion Envelope Maker Hand Name Role Phone Abebe Stewart MD Primary Care Provider [phone] Abebe Tan MD Unavailable Reason for Visit * ReasonOnset DateCommentsAppointment (Rescheduled)07/19/2025ppointment (Cancellation)07/19/2025 Encounter Details DateTypeDepartmentCare Team (Latest Contact Info)Zaktkvqzlme20/18/2025Telephone [facility] [address] [place] [address] Shivani Boyd MA Appointment (Rescheduled) ; Appointment (Cancellation) Social History Tobacco UseTypesPacks/DayYears UsedDateSmoking Tobacco: IubrucUcexcjqcug0587 - 1974Passive Smoke Exposure: PastSmokeless Tobacco: NeverAlcohol UseStandard Drinks/WeekCommentsYes0 (1 standard drink = 0.6 oz pure alcohol)rareSocial Connection and Isolation PanelAnswerDate RecordedIn a typical week, how many times do you talk on the phone with family, friends, or neighbors?More than three times a week04/05/2025How often do you get together with friends or relatives?More than three times a week04/05/2025How often do you attend moravian or sabianism services?Never04/05/2025Do you belong to any clubs or organizations such as moravian groups, unions, fraternal or athletic groups, or school groups?No 04/05/2025How often do you attend meetings of the clubs or organizations you belong to?Never04/05/2025re you , , , , never , or living with a partner?Pptppofax66/04/2025UDIT-CAnswerDate Recorded Q1: How often do you have a drink containing alcohol?Never04/05/2025Q2: How many drinks containing alcohol do you have on a typical day when you are drinking? Patient does not drink04/05/2025Q3: How often do you have six or more drinks on one occasion?Never04/05/2025PHQ-2AnswerDate RecordedPatient Health Questionnaire-2 Tuhds255[facility] [place] of Occupational Health - Occupational Stress QuestionnaireAnswerDate RecordedDo you feel stress - tense, restless, nervous, or anxious, or unable to sleep at night because yourmind is troubled all the time - these days?Only a lmxmfw7904/05/2025Humiliation, Afraid, Rape, and Kick questionnaireAnswerDate RecordedWithin the last year, have you been afraid of your partner or ex-partner?No07/13/2025Emotionally AbusedNot on file07/13/2025Physically AbusedNot on file07/13/2025Sexually AbusedNot on file 07/13/2025Overall Financial Resource Strain (CARDIA)AnswerDate RecordedHow hard is it for you to pay for the very basics like food, housing, medical care, and heating?Not hard at all07/13/2025HC UtilitiesAnswerDate RecordedIn the past [address], [employer], oil, or water [employer] threatened to shut off services in your [...] homeless or living in a long-term (including now)?No07/13/2025Hunger Vital Sign AnswerDate RecordedWithin the past 12 months, you worried that your food would run out before you got the money to buymore.Never true07/13/2025Within the past 12 months, the food you bought just didn't last and you didn't have money to get more.Never true07/13/2025Sex and Gender InformationValueDate RecordedSex Assigned at NclfhFyvv17/20/2025 6:43 AM ESTLegal NkvHjkk6401/29/2022 12:45 AM EDT Gender VkogmvoqKgjh21/20/2025 7:43 AM ESTSexual OrientationHeterosexual or Cdjyizpq40/20/2025 7:43 AM ESTdocumented as of this encounter Miscellaneous Notes * Telephone Encounter - Shivani Boyd MA - 07/19/2025 3:37 PM EST Deana ([facility]) called to CX appt (08/09/2025 10:55am w/Izaiah Singh pt will not have transportation; Deana will call to reschedule appt) * Telephone Encounter - Shivani Boyd MA - 07/19/2025 8:49 AM EST Outgoing call spk w/pt to reschedule appt (07/24/2025 9:40am Ata Singh); pt scheduled 08/09/2025 10:55am laura/Izaiah Singh. documented in this encounter Plan of Treatment DateTypeDepartmentCare Team (Latest Contact Info)Pzyyiezhmyp72/05/2026 8:00 AM ESTFollow-Up [facility] Transplant [address] [place] [phone] documented as of this encounter Goals GoalPatient Goal TypeAssociated ProblemsRecent ProgressPatient-Stated?Author Blood Pressure < 140/90 Blood Owfalfrt392/85(07/24/2025 9:11 AM EST)Crista March, RNdocumented as of this encounter Visit Diagnoses Not on filedocumented in this encounter Additional Health Concerns InfectionOnset DateLast IndicatedResolved TimeC.difficile Comment:External result, treatment incomplete /OVID- (confirmed) Comment:[facility] Patient is immune compromised /MDR Irbyue05documented as of this encounter Care Teams Team MemberRelationshipSpecialtyStart DateEnd Date Abebe Stewart MD [address] [place] [address], [address] [place] [address] PCP - GeneralInternal Medicine09/21/24 Abebe Tan MD [address] [place] [phone] Consulting PhysicianUrology04/07/25documented as of this encounter
--- OUTSIDE RECORDS SUMMARY | 2025-07-27 15:30 | XMS_ITS | Encounter Summary ---
Author Organization [facility] Address [address] [place] [address] Care Team Providers Care Rn Long Term Care Name Role Phone Abebe Stewart MD Primary Care Provider [phone] Abebe Tan MD Unavailable Encounter Details DateTypeDepartmentCare Team (Latest Contact Info)Jttshagfmak14/12/2025Travel Social History Tobacco UseTypesPacks/DayYears UsedDateSmoking Tobacco: SzrookJzzonpndgs0302 - 1974Passive Smoke Exposure: PastSmokeless Tobacco: NeverAlcohol UseStandard Drinks/WeekCommentsYes0 (1 standard drink = 0.6 oz pure alcohol)rareSocial Connection and Isolation PanelAnswerDate RecordedIn a typical week, how many times do you talk on the phone with family, friends, or neighbors?More than three times a week04/05/2025How often do you get together with friends or relatives?More than three times a week04/05/2025How often do you attend roman catholic or alevism services?Never04/05/2025Do you belong to any clubs or organizations such as roman catholic groups, unions, fraternal or athletic groups, or school groups?No 04/05/2025How often do you attend meetings of the clubs or organizations you belong to?Never04/05/2025re you , , , , never , or living with a partner?Trthkewll54/04/2025UDIT-CAnswerDate Recorded Q1: How often do you have a drink containing alcohol?Never04/05/2025Q2: How many drinks containing alcohol do you have on a typical day when you are drinking? Patient does not drink04/05/2025Q3: How often do you have six or more drinks on one occasion?Never04/05/2025PHQ-2AnswerDate RecordedPatient Health Questionnaire-2 Hpzzm253[facility] [place] of Occupational Health - Occupational Stress QuestionnaireAnswerDate RecordedDo you feel stress - tense, restless, nervous, or anxious, or unable to sleep at night because yourmind is troubled all the time - these days?Only a kxibfu0204/05/2025Humiliation, Afraid, Rape, and Kick questionnaireAnswerDate RecordedWithin the [...] homeless or living in a usp (including now)?No07/13/2025Hunger Vital Sign AnswerDate RecordedWithin the past 12 months, you worried that your food would run out before you got the money to buymore.Never true07/13/2025Within the past 12 months, the food you bought just didn't last and you didn't have money to get more.Never true07/13/2025Sex and Gender InformationValueDate RecordedSex Assigned at EwkvjOleh24/20/2025 6:43 AM ESTLegal XcwUskc5501/29/2022 12:45 AM EDT Gender OirqzndnDhjv20/20/2025 7:43 AM ESTSexual OrientationHeterosexual or Shbmboax45/20/2025 7:43 AM ESTdocumented as of this encounter Functional Status * Suicidal IdeationQuestionAnswerDate of AssessmentAuthor1. Wish to be (Lifetime)No07/13/2025 9:05 PM Adrienne Simons RN2. Non-Specific Active Suicidal Thoughts (Lifetime)No07/13/2025 9:05 PM Adrienne Simons RN documented as of this encounter Plan of Treatment DateTypeDepartmentCare Team (Latest Contact Info)Ogufmdrjrgg33/05/2026 8:00 AM ESTFollow-Up [facility] Transplant [address] [place] [address] documented as of this encounter Goals GoalPatient Goal TypeAssociated ProblemsRecent ProgressPatient-Stated?Author Blood Pressure < 140/90 Blood Elbqtzdy343/85(07/24/2025 9:11 AM EST)Crista March RNdocumented as of this encounter Visit Diagnoses Not on filedocumented in this encounter Additional Health Concerns InfectionOnset DateLast IndicatedResolved TimeCOVID-19 (confirmed) Comment:Tested positive last 07/08/2025 at the [facility]. Patient is immune compromised documented as of this encounter Care Teams Team MemberRelationshipSpecialtyStart DateEnd Date Abebe Stewart MD [address] [place] [address], [address] [place] [address] PCP - GeneralInternal Medicine09/21/24 Abebe Tan MD [address] [facility] [place] [address] Consulting PhysicianUrology04/07/25documented as of this encounter
--- OUTSIDE RECORDS SUMMARY | 2025-07-27 15:30 | XMS_ITS | Encounter Summary ---
Author Organization [facility] Address [address] [place] [address] Care Team Providers Care Supervisor Shuttle Veneering Name Role Phone Abebe Stewart MD Primary Care Provider [phone] Abebe Tan MD Unavailable Encounter Details DateTypeDepartmentCare Team (Latest Contact Info)Qrhpfaaqjzz73/12/2025Community Orders [facility] Transplant [address] [place] [address] Jayjay Robin MD [address] [place] [address] Encounter for aftercare following kidney transplant; Immunosuppressive management encounter following kidney transplant Social History Tobacco UseTypesPacks/DayYears UsedDateSmoking Tobacco: WorsfwNibtwkhpun7735 - 1974Passive Smoke Exposure: PastSmokeless Tobacco: NeverAlcohol UseStandard Drinks/WeekCommentsYes0 (1 standard drink = 0.6 oz pure alcohol)rareSocial Connection and Isolation PanelAnswerDate RecordedIn a typical week, how many times do you talk on the phone with family, friends, or neighbors?More than three times a week04/05/2025How often do you get together with friends or relatives?More than three times a week04/05/2025How often do you attend buddhist or judaism services?Never04/05/2025Do you belong to any clubs or organizations such as buddhist groups, unions, fraternal or athletic groups, or school groups?No 04/05/2025How often do you attend meetings of the clubs or organizations you belong to?Never04/05/2025re you , , , , never , or living with a partner?Iitsgmgtl84/04/2025UDIT-CAnswerDate Recorded Q1: How often do you have a drink containing alcohol?Never04/05/2025Q2: How many drinks containing alcohol do you have on a typical day when you are drinking? Patient does not drink04/05/2025Q3: How often do you have six or more drinks on one occasion?Never04/05/2025PHQ-2AnswerDate RecordedPatient Health Questionnaire-2 Yowpm723Fingar[facility] [place] of Occupational Health - Occupational Stress QuestionnaireAnswerDate RecordedDo you feel stress - tense, restless, nervous, or anxious, or unable to sleep at night because yourmind is troubled all the time - these days?Only a cyxysq4004/05/2025Humiliation, Afraid, Rape, and Kick questionnaireAnswerDate RecordedWithin the last year, have you been afraid of your partner or ex-partner?No07/13/2025Emotionally AbusedNot on file07/13/2025Physically AbusedNot on file07/13/2025Sexually AbusedNot on file 07/13/2025Overall Financial Resource Strain (CARDIA)AnswerDate RecordedHow hard is it for you to pay for the very basics like food, housing, medical care, and heating?Not hard at all07/13/2025HC UtilitiesAnswerDate RecordedIn the past 12 months has the [employer], gas, oil, or water [employer] threatened to shut off services in your [...] or living in a senior living (including now)?No07/13/2025Hunger Vital Sign AnswerDate RecordedWithin the past 12 months, you worried that your food would run out before you got the money to buymore.Never true07/13/2025Within the past 12 months, the food you bought just didn't last and you didn't have money to get more.Never true07/13/2025Sex and Gender InformationValueDate RecordedSex Assigned at TfbrtHigh80/20/2025 6:43 AM ESTLegal DybEfuf1501/29/2022 12:45 AM EDT Gender GftpvalhBwsh75/20/2025 7:43 AM ESTSexual OrientationHeterosexual or Dmzbejnh85/20/2025 7:43 AM ESTdocumented as of this encounter Functional Status * Suicidal IdeationQuestionAnswerDate of AssessmentAuthor1. Wish to be (Lifetime)No07/13/2025 9:05 PM Adrienne Simons RN2. Non-Specific Active Suicidal Thoughts (Lifetime)No07/13/2025 9:05 PM Adrienne Simons RN documented as of this encounter Plan of Treatment DateTypeDepartmentCare Team (Latest Contact Info)Zsnpwzqqgrg53/05/2026 8:00 AM ESTFollow-Up [facility] Transplant [address] [place] [address] documented as of this encounter Goals GoalPatient Goal TypeAssociated ProblemsRecent ProgressPatient-Stated?Author Blood Pressure < 140/90 Blood Ikiwwiwm490/85(07/24/2025 9:11 AM EST)Crista March RNdocumented as of this encounter Visit Diagnoses Diagnosis Encounter for aftercare following kidney transplant Immunosuppressive management encounter following kidney transplant Encounter for long-term (current) use of other medications documented in this encounter Additional Health Concerns InfectionOnset DateLast IndicatedResolved TimeC.difficile Comment:External result, treatment incomplete /5COVID-19 (confirmed) Comment:Tested positive last 07/08/2025 at the [facility] Patient is immune compromised 09/14/2024MDR Zzvepg03documented as of this encounter Care Teams Team MemberRelationshipSpecialtyStart DateEnd Date Abebe Stewart MD [address] [place] [address], [address] [place] [address] PCP - GeneralInternal Medicine09/21/24 Abebe Tan MD [address] [place] [phone] Consulting PhysicianUrology04/07/25documented as of this encounter
--- OUTSIDE RECORDS SUMMARY | 2025-07-27 15:31 | XMS_ITS | Clinical Summary ---
Author Organization [facility] Address [address] [place] [address] Care Team Providers Care Language Asst Name Role Phone Ghazal Cevallos MD Primary Care Provider [phone] Ghazal Tan MD Unavailable Allergies Active AllergyReactionsCriticalityNoted RwtsVyxhqravRuujbnydvqXiloltuv10/22/2021 Leg edema Fish Containing FbdqouvcMlosekm10/12/2025Shellfish DerivedNausea And Vomiting Wrvyaj2807/02/2021 Vomiting Medications MedicationSigDispense QuantityRefillsLast FilledStart DateEnd DateStatus [...] On Wednesday, Wednesday, and Wednesday 12 tablet 1105Active sod phos di, mono-K phos mono (K Phos Neutral) tablet Indications:Encounter for aftercare following kidney transplant,Hypophosphatemia Take 1 tablet by mouth two times daily.5Active finasteride (Proscar) 5 mg tablet Indications:Benign prostatic hyperplasia with urinary retentionTake 1 tablet (5 mg) by mouth in the morning. Do not crush, chew, or split. 30 tablet 11096Active hydrALAZINE (Apresoline) 100 mg tablet Indications:Primary hypertensionTake 1 tablet (100 mg) by mouth three times daily. 90 tablet 5Active NIFEdipine XL (Procardia XL) 30 mg 24 hr tablet Indications:Primary hypertensionTake 1 tablet (30 mg) by mouth in the morning. Do not crush, chew, or split. 30 tablet 5Active magnesium glycinate 100 mg magnesium capsule Indications:HypomagnesemiaTake 3 capsules (300 mg) by mouth three times daily. 270 capsule 5Active famotidine (Pepcid) 20 mg tablet Indications:Gastroesophageal reflux disease without esophagitisTake 1 tablet (20 mg) by mouth at bedtime. 30 tablet 5Active tamsulosin (Flomax) 0.4 mg 24 hr capsule Indications:Urinary retentionTake 2 capsules (0.8 mg) by mouth in the morning. 60 capsule 5Active folic acid (Folvite) 1 mg tablet Indications:Folate deficiencyTake 1 tablet (1 mg) by mouth in the morning for 94 doses.6Active pantoprazole (ProtoNix) 40 mg EC tablet Indications:Abdominal pain, unspecified abdominal locationTake 1 tablet (40 mg) by mouth before breakfast. Do not crush, chew, or split. 30 tablet 5Active acetaminophen (Tylenol) 325 mg tablet Take 650 mg by mouth every 6 (six) hours if needed for mild pain (1-3 pain score) or fever greater than or equal to 38 degrees Celsius.Active docusate sodium (Colace) 100 mg capsule Take 100 mg by mouth two times daily.Active guaiFENesin (Mucinex) 600 mg 12 hr tablet Indications:J50DMOC 07/13 - 07/23Take 1,200 mg by mouth two times daily. Do not crush, chew, or split.Active ipratropium-albuteroL (Duo-Neb) 0.5-2.5 mg/3 mL nebulizer solution Take 3 mL by nebulization every 6 (six) hours if needed for wheezing or shortness of breath.Active ondansetron (Zofran) 4 mg tablet Take 4 mg by mouth every 4 (four) hours if needed for nausea or vomiting.Active calcium carbonate (Tums) 200 mg calcium (500 mg) chewable tablet Indications:Encounter for aftercare following kidney transplant,HypocalcemiaChew 2 tablets (1,000 mg) two times daily. Without food07/17/2025tive calcium carbonate-vitamin D3 500 mg-5 mcg (200 unit) tablet Indications:Vitamin D deficiencyTake 1 tablet by mouth at bedtime. 30 tablet 1116Active megestrol (Megace) 400 mg/10 mL (10 mL) suspension Indications:Decrease in appetiteTake 20 mL (800 mg) by mouth in the morning. 600 mL ctive tacrolimus (Prograf) 1 mg capsule Indications:Immunosuppressive management encounter following kidney transplant Take 2 capsules (2 mg) by mouth two times daily for 14 days. 56 capsule tive cholecalciferol (D3-5) 5,000 Units tablet Indications:Vitamin D deficiencyTake 1 tablet (5,000 Units) by mouth in the morning./6Active predniSONE (Deltasone) 10 mg tablet Indications:ImmunosuppressionTake 0.5 tablets (5 mg) by mouth in the morning. 07/24/2025tive fidaxomicin (Dificid) 200 mg tablet Indications:C. difficile colitisTake 1 tablet (200 mg) by mouth two times daily for 10 days.ctive sodium bicarbonate 650 mg tablet Indications:Transplant recipientTake 2 tablets (1,300 mg) by mouth two times daily.ctive Ringer's solution,lactated (lactated Ringer's) infusion Indications:DehydrationPlease administer 1L of Lactated Ringers intravenously through midline PICC every other day. 1L bolus to be administered over 4 hours at 250ml/hr. 7000 mL ctive tacrolimus ER (Envarsus XR) 4 mg tablet ER Indications:Immunosuppressive management encounter following kidney transplant Take 1 tablet (4 mg) by mouth in the morning. Script total 8.5 mg daily 30 tablet 1109//Discontinued calcium carbonate (Tums) 200 mg calcium (500 mg) chewable tablet Indications:Encounter for aftercare following kidney transplant,HypocalcemiaChew 3 tablets (1,500 mg) two times daily. Without food 180 tablet /Discontinued predniSONE (Deltasone) 10 mg tablet Indications:ImmunosuppressionTake 1 tablet (10 mg) by mouth in the morning. 30 tablet 111/Discontinued pantoprazole (ProtoNix) 40 mg EC tablet Indications:Abdominal pain, unspecified abdominal locationTake 1 tablet (40 mg) by mouth before breakfast. Do not crush, chew, or split. 30 tablet Discontinued(Reorder) azaTHIOprine (Imuran) 75 mg tablet Indications:Transplant recipientTake 1 tablet (75 mg) by mouth in the morning for 96 doses.Discontinued calcium carbonate-vitamin D3 500 mg-5 mcg (200 unit) tablet Indications:Vitamin D deficiencyTake 2 tablets by mouth two times daily. Discontinued valGANciclovir (Valcyte) 450 mg tablet Indications:Immunosuppressive management encounter following kidney transplant Take 1 tablet (450 mg) by mouth in the morning. As directed. 30 tablet Discontinued(Stop Taking at Discharge) vancomycin (Vancocin) 125 mg capsule Take 125 mg by mouth 2 times daily.07/17/2025Discontinued cephalexin (Keflex) 500 mg capsule Take 500 mg by mouth four times daily. FOR INFECTION FOR 10 DAYS(07/13 - 07/23) 07/24/2025Discontinued(Stop Taking at Discharge) tacrolimus ER (Envarsus XR) 4 mg tablet ER Indications:Immunosuppressive management encounter following kidney transplant Take 1 tablet (4 mg) by mouth in the morning. 4 mg daily 30 tablet Discontinued(Stop Taking at Discharge) azaTHIOprine (Imuran) 50 mg tablet Indications:Transplant recipientTake 1 tablet (50 mg) by mouth in the morning for 96 doses.Discontinued(Stop Taking at Discharge) vancomycin (Vancocin) 125 mg capsule Indications:C. difficile colitisTake 1 capsule (125 mg) by mouth four times daily for 14 days. 56 capsule Discontinued(Stop Taking at Discharge) fidaxomicin (Dificid) 200 mg tablet Indications:C. difficile colitisTake 1 tablet (200 mg) by mouth two times daily for 20 doses. 20 tablet Discontinued Active Problems ProblemNoted DateDiagnosed DateCOVID-. difficile dkzeqjqn90/23/2025 S/P kidney mkiiyexjrv23/12/2025Transplant gjguzcjoq83/28/2025UTI (urinary tract infection)05/24/2025Urinary lcrvodfmh07/15/2025Gastroesophageal reflux disease without bocuawsbkuw81/15/2025S/P TURP16705Swhozbgkfvxb46/15/2025PH with urinary /10/2025PH with obstruction/lower urinary tract symptoms 05/08/2025erebrovascular accident (CVA)04/30/2025Suspected stroke patient last known to be well more than 2 hours ago04/28/2025Immunosuppressive management encounter following kidney rmjxwsnmek57/22/9128Piuwqvvhgeyqnht70/22/2025 Vqvqpizawowhtptfo59/16/2025enign prostatic hyperplasia with urinary retention 04/17/20258313Pzoaczlyibnzfohu85/16/2025ilateral lower extremity edema04/17/2025 Gwgvmzsgokvl43/16/0145Wtuacxstbrtaqk14/16/5254Eavdhodx17/16/2025Encounter for aftercare following kidney roxarcaddt56/12/3968Vizfaztjcjwgei06/10/2025GI bleed 04/05/2025Kidney replaced by doyomhysvx74/02/2025H/O iqlkusfzkra01/13/2025 Hypertensive disorder Overview (03/26/2025): Age of onset [...] nodule seen on imaging study Encounters DateTypeDepartmentCare WzsjYgdrzwhvgxq02/18/2025Telephone [facility] [address] [place] [address] Shivani Boyd MA Appointment (Rescheduled) ; Appointment (Cancellation)07/13/2025 6:05 PM EST - 07/24/2025 4:53 PM ESTHospital Encounter [facility] [address] [place] [address] Jayjay Robin MD S/P kidney transplant (Primary Dx); Immunosuppressive management encounter following kidney transplant; Encounter for aftercare following kidney transplant; Hypocalcemia; Vitamin D deficiency; Transplant recipient; C. difficile colitis; Decrease in appetite; Immunosuppression; Dehydration Discharge Disposition: Intermediate Facility (03)07/13/20252155Mzfpvd30/12/2025 Community Orders [facility] Transplant [address] [place] [phone] Jayjay Robin MD Encounter for aftercare following kidney transplant; Immunosuppressive management encounter following kidney tvbguuwuaf44/10/2025Lab [facility] Transplant [address] [place] [address] Trish Alfred MA 07/09/2025Refill [facility] Transplant [address] [place] [phone] Rosa Nix MA Abdominal pain, unspecified abdominal lgcnwofc51/07/2025Telephone [facility] Transplant [address] [place] [phone] SortorRadha RN 06/26/2025Refill [facility] Transplant [address] [place] [phone] Wendy Lomeli MD Immunosuppressive management encounter following kidney aqtibthflj94/21/2025 Refill [facility] Transplant [address] [place] [address] Trish Alfred MA Immunosuppressive management encounter following kidney gkpvjiqhkc13/18/2025 Telephone [facility] [address] [place] [phone] Shivani Boyd MA Appointment (Rescheduled)06/07/2025Refill [facility] Transplant [address] [place] [phone] Trish Alfred MA Abdominal pain, unspecified abdominal location (Primary Dx)05/31/2025Travel 05/29/2025 4:04 PM EDT - 06/15/2025 2:51 PM ESTHospital Encounter [facility] [address] [place] [address] Ghazal Tan MD Yadav, Kunal, MD Transplant recipient (Primary Dx); Urinary tract infection without hematuria, site unspecified; Immunosuppression; Acute cystitis without hematuria; Vitamin D deficiency; Folate deficiency Discharge Disposition: Intermediate Facility (03)05/29/2025 8:30 AM EDTLab [facility] [place] [address] Encounter for aftercare following kidney transplant; Transplanted kidney; Encounter for long-term (current) use of medications; Immunosuppressive management encounter following kidney transplant; BK viremia; Kidney replaced by transplant; Cytomegalovirus (CMV) viremia ([facility])05/29/2025 8:00 AM EDTFollow-Up [facility] Transplant [address] [place] [address] Ghazal Tan MD Kidney replaced by transplant (Primary Dx)05/29/20254166Rrdejy61/24/2025ommunity Orders [facility] Transplant [address] [place] [phone] Britni Jensen, JUANA Elevated serum amqjcxkfto78/24/2025Orders Only [facility] Transplant [address] [place] [phone] Britni Jensen, RN Elevated serum creatinine (Primary Dx)05/24/2025 1:56 PM EDT - 05/24/2025 11:59 PM EDTHospital Encounter [facility] 2A Infusion [address] [place] [phone] Acute cystitis without hematuria (Primary Dx); Encounter for aftercare following kidney transplant; Transplanted kidney; Encounter for long-term (current) use of medications Discharge Disposition: Home or Self Care ()05/24/2025 1:48 PM EDT - 05/24/2025 1:55 PM EDTHospital Encounter [facility] PICC Team [address] [place] [phone] Discharge Disposition: Home or Self Care ()05/24/2025 1:00 PM EDTConsult [facility] Transplant [address] [place] [phone] 05/24/2025Education [facility] PICC Team [address] [place] [address] Maida Sneed RN 05/24/2025Orders Only [facility] Social Work [address] [place] [phone] Worker, Social, MANAGER MONITORING 05/24/2025Orders Only [facility] Infusion [address] [place] [address] Kevin Anderson, PharmD, BCOP 05/24/2025Orders Only [facility] 2A Infusion [address] [place] [phone] Nancy Champion, wrist closer cystitis without hematuria (Primary Dx)05/24/2025Orders Only [facility] 2A Infusion [address] [place] [phone] Bessy German, JUANA 05/23/2025Orders Only [facility] Transplant [address] [place] [phone] Zahra Rhoades, JUANA Urinary tract infection without hematuria, site unspecified (Primary Dx) 05/18/2025Telephone [facility] 5ABCD Surgery Stepdown [address] [place] [phone] Regla Doyle, JUANA 05/16/2025 11:00 AM EDTOffice Visit [facility] Urology [address] [place] [phone] Odette Duarte CNP Urinary retention (Primary Dx); End stage renal disease (CMS/HCC)05/16/2025 8:00 AM EDTFollow-Up [facility] Transplant [address] [place] [phone] Jayjay Robin MD Immunosuppression (Primary Dx); Kidney replaced by transplant; Primary hypertension; Urinary retention; Hypocalcemia; Cerebrovascular accident (CVA), unspecified mechanism (CMS/HCC); Hypomagnesemia; Gastroesophageal reflux disease without esophagitis; Hypophosphatemia; Bilateral lower extremity edema; S/P TURP; Other elevated white blood cell (WBC) count05/16/2025 7:20 AM EDTLab [facility] Kidney Transplant Draw Station [address] [place] [phone] Encounter for aftercare following kidney transplant; Transplanted kidney; Encounter for long-term (current) use of medications; Encounter for screening for diseases of the blood and blood-forming organs and certain disorders involving the immune mechanism; Screening for human immunodeficiency virus05/14/2025 8:30 AM EDTFollow-Up [facility] Urology [address] [place] [phone] Ghazal Tan MD S/P TURP (Primary Dx)05/14/2025Refill [facility] Transplant [address] [place] [address] Rosa Nix MA Encounter for aftercare following kidney transplant; Bilateral lower extremity edema05/11/2025 2:30 PM EDT - 05/11/2025 4:00 PM EDT Surgery [facility] Main Operating Room [address] [place] [address] Ghazal Tan MD TURP (TRANSURETHRAL RESECTION OF PROSTATE) [72368 (CPT??)]05/11/2025 2:21 PM EDT Anesthesia Event [facility] Main Operating Room [address] [place] [phone] Iam Blair MD Kwak, Carol Butcher MD 05/11/2025 1:00 PM EDT - 05/12/2025 7:11 PM EDTHospital Encounter [facility] 4AB Urology [address] [place] [address] Ghazal Tan MD 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); BPH with obstruction/lower urinary tract symptoms Discharge Disposition: Home-Health Care [facility] ()05/11/20250083Tkwezu04/09/2025 1:11 PM EDT - 05/10/2025 11:59 PM EDTHospital Encounter [facility] 2A Infusion [address] [place] [address] Kidney transplanted (Primary Dx); Anemia in chronic kidney disease, unspecified CKD stage; Encounter for aftercare following kidney transplant Discharge Disposition: Home or Self Care ()05/08/2025Telephone [facility] Transplant [address] [place] [address] Radha Lind RN 05/08/20259552Btbujx13/07/2025Orders Only [facility] Urology [address] [place] [address] Ghazal Tan MD BPH with obstruction/lower urinary tract symptoms (Primary Dx)05/07/2025 9:45 AM EDTProcedure Visit [facility] Urology [address] [place] [address] Ghazal Tan MD 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)04/28/2025 4:40 PM EDT - 05/02/2025 11:31 AM EDTHospital Encounter [facility] 4[facility] Urology [address] [place] [address] Jayjay Robin MD Ischemic stroke diagnosed during current admission ([facility]) (Primary Dx); Suspected stroke patient last known to be well more than 2 hours ago; Immunosuppressive management encounter following kidney transplant; Kidney transplanted; Encounter for aftercare following kidney transplant; BPH with obstruction/lower urinary tract symptoms Discharge Disposition: Home-Health Care [facility] (06)04/28/2025Travelfrom Last 3 Months Immunizations ImmunizationAdministration DatesNext DueInfluenza, High Dose Seasonal, Preservative Free04/06/2024Influenza, High-dose Seasonal, Quadrivalent, Preservative Free07/15/2023Influenza, injectable, quadrivalent, preservative free07/01/2018Pneumococcal Conjugate PCV 13008/27/2015Pneumococcal Conjugate PCV neumococcal Polysaccharide ZKX8254//2010RSV, Adult, Bivalent 09/24/2023Tdap12/15/2024Zoster, Njnoqsardjn44/23/2024,07/15/2023 Family History Medical HistoryRelationNameCommentsHeart diseaseFatherHad pacemakerRelationName StatusCommentsFatherSisterRobinAlive Social History Tobacco UseTypesPacks/DayYears UsedDateSmoking Tobacco: NdortgPhcseadvwu2418 - 1974Passive Smoke Exposure: PastSmokeless Tobacco: Never [...] times a week04/05/2025How often do you attend sabianist or baptism services?Never04/05/2025Do you belong to any clubs or organizations such as sabianist groups, unions, fraternal or athletic groups, or school groups?No04/05/2025How often do you attend meetings of the clubs or organizations you belong to?Never04/05/2025re you , , , , never , or living with a partner?Pjhnzjxob03/04/2025UDIT-C AnswerDate RecordedQ1: How often do you have a drink containing alcohol?Never 04/05/2025Q2: How many drinks containing alcohol do you have on a typical day when you are drinking?Patient does not drink04/05/2025Q3: How often do you have six or more drinks on one occasion?Never04/05/2025PHQ-2AnswerDate Recorded Patient Health Questionnaire-2 Rubqk331[facility] - Occupational Stress QuestionnaireAnswerDate RecordedDo you feel stress - tense, restless, nervous, or anxious, or unable to sleep at night because your mind is troubled all the time - these days?Only a jygmmx4304/05/2025Humiliation, Afraid, Rape, and Kick questionnaireAnswerDate RecordedWithin the last year, have you been afraid of your partner or ex-partner?No07/13/2025Emotionally AbusedNot on file07/13/2025Physically AbusedNot on file07/13/2025Sexually Abused Not on file07/13/2025Overall Financial Resource Strain (CARDIA)AnswerDate RecordedHow hard is it for you to pay for the very basics like food, housing, medical care, and heating?Not hard at all07/13/2025HC UtilitiesAnswerDate RecordedIn the past 12 months has the [employer] gas, oil, or water [employer] threatened to shut off services in your home?No07/13/2025TransportationAnswer Date RecordedIn the past 12 months, has lack of transportation kept you from medical appointments or from getting medications?No07/13/2025In the past 12 months, has lack of transportation kept you from meetings, work, or from getting things needed for daily living?No07/13/2025Housing Stability Vital SignAnswer Date RecordedIn the last 12 months, was there a time when you were not able to pay the mortgage or rent on time?No07/13/2025In the past 12 months, how many times have you moved where you were living?t any time in the past 12 months, were you homeless or living in a assisted (including now)?No07/13/2025 Hunger Vital SignAnswerDate RecordedWithin the past 12 months, you worried that your food would run out before you got the money to buymore.Never true07/13/2025 Within the past 12 months, the food you bought just didn't last and you didn't have money to get more.Never true07/13/2025Sex and Gender InformationValueDate RecordedSex Assigned at DaiqkMqqj41/20/2025 6:43 AM ESTLegal CaeSpqz7301/29/2022 12:45 AM EDTGender GecpdspyXbkg41/20/2025 7:43 AM ESTSexual Orientation Heterosexual or Migkhobu55/20/2025 7:43 AM EST Last Filed Vital Signs Vital SignReadingTime TakenCommentsBlood Ijjdrytn452/8507/24/2025 9:11 AM EST Kwyxj232607/24/2025 9:11 AM OLLZlsciurkfqh01.9 ??C (98.4 ??F)07/24/2025 9:11 AM ESTRespiratory Jemu424409/24/2024 9:11 AM ESTOxygen Lulcqhmggu39%07/24/2025 9:11 AM ESTInhaled Oxygen Concentration--Zshifs63.5 kg (188 lb 7.9 oz)07/24/2025 4:21 AM PCZNhzuvb284.4 cm (6' 0.99 )07/13/2025 8:36 PM ESTBody Mass Index24.87 07/13/2025 8:36 PM EST Plan of Treatment DateTypeDepartmentCare Team (Latest Contact Info)Udllricedyf43/05/2026 8:00 AM ESTFollow-Up [facility] Transplant [address] [place] [phone] Health MaintenanceDue DateLast DoneCommentsMedicare Annual Wellness (AWV) 1954HIB Vaccines (1 of 1 - Risk 1-dose series)10/29/1955Meningococcal Vaccine (1 - Risk 2-dose series)1956Meningococcal B Vaccine (1 of 4 - Increased Risk)1964COVID-19 Vaccine (3 - Moderna risk series)11/04/2024 10/07/2024, 04/06/2024, 07/15/2023, Additional history existsInfluenza Vaccine (#1)509/12/2023, 07/15/2023, 07/01/2018Depression Omjchsefv02/15/2026 05/16/2025Fall Risk Zvuemczvf54/23/79403509/24/2024dult Kfiwkif8812/15/2034 12/15/20240323GirjoghtpiwIspenlnlzuur18/06/2023neumococcal Vaccine: 50+ Years Pgoffzfdu55/14/2023, 08/27/2015, 09/19/2010Zoster TjdwvtwaWbpzohyay65/23/2024, 07/15/2023olorectal Cancer KzfdsqpnjMybafvjursyqZSXMEnqfditvgpmh85/04/2025CT ColonographyDiscontinuedFIT-DNADiscontinuedFITDiscontinuedHPV VaccinesAged OutNo longer eligible based on patient's age to complete this topicIPV VaccinesAged OutNo longer eligible based on patient's age to complete this topicRotavirus VaccinesAged OutNo longer eligible based on patient's age to complete this topic SigmoidoscopyDiscontinued Goals GoalPatient Goal TypeAssociated ProblemsRecent ProgressPatient-Stated?Author Blood Pressure < 140/90 Blood Mwgvuoke705/85(07/24/2025 9:11 AM EST)Crista March RN Medical Devices ExplantedTypeAreaManufacturerDevice IdentifierShelf Expiration DateModel / Serial / LotStent,Ureteral,Pigtail,[id number] - [id number] Implanted:Qty: 1 on 03/31/2025 by Jayjay Robin MD at [facility] Explanted:05/01/2025 (Quantity not on file)StentLeft: [employer] [id number] / / [id number]:TRANSPLANT URETER Procedures Procedure NamePriorityDate/TimeAssociated DiagnosisCommentsURINE CULTUREPending Cuhhhtnal01/23/2025 11:56 AM EST PHOSPHORUSPending Waiqmetxd51/23/2025 5:02 AM EST MAGNESIUMPending Tbctqhdmo62/23/2025 5:02 AM EST COMPREHENSIVE METABOLIC PANELPending Xvprutmwl42/23/2025 5:02 AM EST TACROLIMUS LEVELPending Kucpgjhoa54/23/2025 5:01 AM EST CBCPending Kclvlmwod86/23/2025 5:01 AM EST TACROLIMUS LEVELPending Skrcgtvvy88/22/2025 6:50 AM EST PHOSPHORUSPending Vumrimlvg97/22/2025 6:50 AM EST MAGNESIUMPending Mrfhksujt00/22/2025 6:50 AM EST COMPREHENSIVE METABOLIC PANELPending Icpeyokjc52/22/2025 6:50 AM EST CBCPending Wjyokrpla54/22/2025 6:[address] ABDOMEN PELVIS WO IV GIFLFKZLDJZH75/21/2025 12:22 PM EST TACROLIMUS LEVELPending Yunkblheq09/21/2025 4:01 AM EST PHOSPHORUSPending Xnazspdsw11/21/2025 4:01 AM EST MAGNESIUMPending Zlzuutrsj17/21/2025 4:01 AM EST COMPREHENSIVE METABOLIC PANELPending Xppygvyms55/21/2025 4:01 AM EST CBCPending Boymuyufz78/21/2025 4:01 AM EST TACROLIMUS LEVELPending Rlrbgzypq54/20/2025 3:40 AM EST PHOSPHORUSPending Fujkyypvw18/20/2025 3:40 AM EST MAGNESIUMPending Tlhppbfzc80/20/2025 3:40 AM EST COMPREHENSIVE METABOLIC PANELPending Gjrybycpv29/20/2025 3:40 AM EST CBCPending Duuvzhizu53/20/2025 3:40 AM EST URINALYSIS MICROSCOPIC WITH REFLEX CULTUREPending Jwifzrctd06/19/2025 2:37 PM EST URINALYSIS WITH REFLEX CULTUREPending Odymnoggn95/19/2025 2:37 PM EST URINE JBQPGMVOgnucaf32/19/2025 2:37 PM EST XR CHEST 1 SIKAWsqspcg72/19/2025 12:20 PM EST RAPID INFLUENZA A/B PCRPending Ucyrzgfek65/19/2025 11:21 AM EST BLOOD CULTUREPending Obcupusiw93/19/2025 10:55 AM EST BLOOD CULTUREPending Uswlhvkqh32/19/2025 10:55 AM EST CKAdd-On07/20/2025 5:15 AM EST TACROLIMUS LEVELPending Uvouqdikk73/19/2025 5:15 AM EST PHOSPHORUSPending Hwncqxohq04/19/2025 5:15 AM EST MAGNESIUMPending Wkvdnvoqe25/19/2025 5:15 AM EST COMPREHENSIVE METABOLIC PANELPending Ircnldjih19/19/2025 5:15 AM EST CBCPending Jopufgyew93/19/2025 5:15 AM EST POCT GLUCOSE METER UNSOLICITED RBTSQTJPibhnit33/18/2025 7:19 AM EST TACROLIMUS LEVELPending Ticqfcpod32/18/2025 5:18 AM EST PHOSPHORUSPending Yhzatmsqu66/18/2025 5:18 AM EST MAGNESIUMPending Vjqjeksut09/18/2025 5:18 AM EST COMPREHENSIVE METABOLIC PANELPending Gqqbhsjpv08/18/2025 5:18 AM EST CBCPending Rlpfzjngt24/18/2025 5:18 AM EST VITAMIN D 25 HYDROXYAdd-On07/18/2025 5:32 AM EST PTH, INTACTAdd-On07/18/2025 5:32 AM EST TACROLIMUS LEVELPending Yimqtmmha91/17/2025 5:32 AM EST PHOSPHORUSPending Juipoudxk11/17/2025 5:32 AM EST MAGNESIUMPending Guitedrxh17/17/2025 5:32 AM EST COMPREHENSIVE METABOLIC PANELPending Onfatgokg67/17/2025 5:32 AM EST CBCPending Eucvktkfl50/17/2025 5:32 AM EST SINGLE ANTIGEN CLASS IIPending Vzvynusrc11/16/2025 12:17 PM EST SINGLE ANTIGEN CLASS IPending Vbljcjryx01/16/2025 12:17 PM EST BK VIRUS, PLASMA, QUANTITATIVEPending Pnaqxglxo34/16/2025 12:17 PM EST CMV DNA, QUANTITATIVE, NAAT, PLASMAPending Xeykymvmu05/16/2025 12:17 PM EST DONOR SPECIFIC SRBEZUVFBsodyun73/16/2025 12:17 PM EST URINALYSIS MICROSCOPICPending Ojfkwtcur08/16/2025 12:12 PM EST CREATININE, URINE, RANDOMPending Wuskfeicj18/16/2025 12:12 PM EST PROTEIN, URINE, RANDOMPending Esuglauzs31/16/2025 12:12 PM EST URINALYSISPending Tutbkffhe31/16/2025 12:12 PM EST URINE CULTUREAdd-On07/17/2025 12:12 PM EST TACROLIMUS LEVELPending Dyuyxhkjq54/16/2025 5:01 AM EST PHOSPHORUSPending Pnhceiyls27/16/2025 5:01 AM EST MAGNESIUMPending Hbczolmsn54/16/2025 5:01 AM EST COMPREHENSIVE METABOLIC PANELPending Reyfajaii12/16/2025 5:01 AM EST CBCPending Lemzxnxig68/16/2025 5:01 AM EST RESPIRATORY ASSESS AND TREAT HMFBMQHMCmjdnua06/15/2025 8:00 AM ESTTACROLIMUS LEVELPending Miascekvk63/15/2025 5:08 AM EST PHOSPHORUSPending Upiwkeinz20/15/2025 5:08 AM EST MAGNESIUMPending Cvvrtcxmo37/15/2025 5:08 AM EST COMPREHENSIVE METABOLIC PANELPending Crfgwkfsb18/15/2025 5:08 AM EST CBCPending Iqafotlgl16/15/2025 5:08 AM EST RESPIRATORY ASSESS AND TREAT EEMFFPSDOahnyex48/14/2025 2:24 PM ESTRESPIRATORY ASSESS AND TREAT OUPBALRLTnfnaiz20/14/2025 2:24 PM ESTXR CHEST 1 VIEWSTAT 07/15/2025 1:41 PM EST CBC WITH AUTO MPWQZHPSXUZDCztryux25/14/2025 11:27 AM EST CBC AND ECERMSHRODAMUmqfnuk72/14/2025 11:27 AM EST FERRITINAdd-On07/15/2025 3:27 AM EST IRON AND TIBCAdd-On07/15/2025 3:27 AM EST TACROLIMUS FMHEEUhqetau11/14/2025 3:27 AM EST UDUVOJFAZRGeshsmc34/14/2025 3:27 AM EST LMSSBYJOZElrzwot74/14/2025 3:27 AM EST COMPREHENSIVE METABOLIC TYXABMeyrxuq11/14/2025 3:27 AM EST RABVeigume98/14/2025 3:27 AM EST SARS-COV-2 QWPIiafjmu60/13/2025 6:13 PM EST TACROLIMUS HXLDPEqinwfj76/13/2025 3:37 AM EST PBRKCQGUQIRsvejzg46/13/2025 3:37 AM EST SQSNYGYULLqlrily43/13/2025 3:37 AM EST COMPREHENSIVE METABOLIC JBOUYUrbwcyb56/13/2025 3:37 AM EST RDUGmpydyl48/13/2025 3:37 AM EST TACROLIMUS XQLTNWrwkozn72/12/2025 8:48 PM EST WGBVSXWAOTMdkaqkb46/12/2025 8:48 PM EST PXUBTNILKXvvcijj37/12/2025 8:48 PM EST COMPREHENSIVE METABOLIC ORAGUDdpipgc08/12/2025 8:48 PM EST QZKTfscgze12/12/2025 8:48 PM EST EXT COMPREHENSIVE METABOLIC IYZVHCavfyrd91/01/2025 TACROLIMUS LEVELPending Opeiuirox09/14/2025 5:51 AM EST TACROLIMUS LEVELPending Ifcllczlw68/13/2025 6:11 AM EST CBCPending Kyknwuspx13/13/2025 6:11 AM EST BASIC METABOLIC PANELPending Dhpfrdshn90/13/2025 6:11 AM EST TACROLIMUS LEVELPending Vcxpglnyr16/12/2025 6:03 AM EST CBCPending Zkbnwwemp50/12/2025 6:03 AM EST BASIC METABOLIC PANELPending Yyyrzgfrk43/12/2025 6:03 AM EST ELECTROLYTE PANELPending Aldmcncny02/11/2025 10:17 PM EST URINALYSIS MICROSCOPICPending Meojnwpwz76/11/2025 9:37 AM EST URINALYSISPending Gpzrqhfhp66/11/2025 9:37 AM EST URINE CULTUREPending Itdolxpyj78/11/2025 9:37 AM EST TACROLIMUS LEVELPending Psjqdrgth15/11/2025 5:23 AM EST CBCPending Rrpirrsye05/11/2025 5:23 AM EST BASIC METABOLIC PANELPending Xpnmubgxm58/11/2025 5:23 AM EST TACROLIMUS LEVELPending Okexhfwtl17/10/2025 5:52 AM EST CBCPending Pdovtdlqi85/10/2025 5:52 AM EST BASIC METABOLIC PANELPending Sqxkfgckh38/10/2025 5:52 AM EST FOLATEPending Hfnlibjbp36/09/2025 5:54 AM EST VITAMIN M17Urfizwf Ymsbbifib34/09/2025 5:54 AM EST TACROLIMUS LEVELPending Etfdipbhf18/09/2025 5:54 AM EST CBCPending Zccxipkyn46/09/2025 5:54 AM EST BASIC METABOLIC PANELPending Rndfzrxxe60/09/2025 5:54 AM EST TACROLIMUS LEVELPending Pietrmkzg43/08/2025 5:47 AM EST CBCPending Gbdqntulu52/08/2025 5:47 AM EST BASIC METABOLIC PANELPending Thrhwjwvy90/08/2025 5:47 AM EST BASIC METABOLIC PANELPending Uyweomhjw27/07/2025 4:24 AM EST TACROLIMUS LEVELAdd-On06/08/2025 4:23 AM EST CBCPending Tzjrjvkuf15/07/2025 4:23 AM EST CBCPending Apriztcrb98/06/2025 3:49 AM EST BASIC METABOLIC PANELPending Nfmgwzhgq62/06/2025 3:49 AM EST CBCPending Okykblzvr49/05/2025 4:44 AM EST BASIC METABOLIC PANELPending Lfsulkmil90/05/2025 4:44 AM EST TACROLIMUS LEVELPending Pkpwkoizj78/05/2025 4:44 AM EST CBCPending Fqndpzcna28/04/2025 5:13 AM EST BASIC METABOLIC PANELPending Reghliqkn75/04/2025 5:13 AM EST TACROLIMUS LEVELPending Ltefzgtrm95/04/2025 5:13 AM EST CBCPending Gulzhwtjv13/03/2025 4:52 AM EST BASIC METABOLIC PANELPending Iyyqqoust07/03/2025 4:52 AM EST TACROLIMUS LEVELPending Uylgjccmr65/03/2025 4:52 AM EST BLOOD CULTUREPending Fvbwiiziz73/02/2025 12:59 PM EST BLOOD CULTUREPending Ypzjumcoo46/02/2025 12:59 PM EST CBCPending Cqhfwadsu15/02/2025 3:49 AM EST BASIC METABOLIC PANELPending Raadgfkdg04/02/2025 3:49 AM EST TACROLIMUS LEVELPending Atpfkwblf05/02/2025 3:49 AM EST LEELA BDHZUBBGKmxrkaf77/01/2025 8:57 PM EDT Elevated serum creatinine URINE CULTUREPending Mypmmnbmo95/01/2025 10:19 AM EDT CBCPending Slqolfiqo67/01/2025 3:59 AM EDT BASIC METABOLIC PANELPending Ktidvzldn98/01/2025 3:59 AM EDT TACROLIMUS LEVELPending Gkarwcrvd21/01/2025 3:59 AM EDT CBCPending Njqficvln51/31/2025 5:00 AM EDT BASIC METABOLIC PANELPending Cmquerxkp64/31/2025 5:00 AM EDT TACROLIMUS LEVELPending Wwupwgwhc30/31/2025 5:[address] GUIDED ABSCESS FLUID COLLECTION BENQJYTTTyxpavf53/30/2025 4:28 PM EDT CREATININE, BODY XFKVPFymkhaw99/30/2025 3:10 PM EDT Transplant recipient BODY FLUID DTUGEIKOofkcau78/30/2025 3:10 PM EDT Transplant recipient RSXUAwqnafi54/30/2025 4:24 AM EDT PROTIME-WIGYtstfbt60/30/2025 4:24 AM EDT YZIHoakwjc71/30/2025 4:24 AM EDT BASIC METABOLIC EYWIHSjpfjds83/30/2025 4:24 AM EDT TACROLIMUS UCSDNRgsfkjj03/30/2025 4:24 AM EDT BLOOD LDDZOFYXoorfxl01/29/2025 1:04 PM EDT BLOOD CZQVPREBfvcwtw12/29/2025 1:04 PM EDT US KIDNEY TRANSPLANT W PWRXRWFYqjzjsx24/29/2025 7:56 AM EDT TACROLIMUS LEVELAdd-On05/30/2025 5:00 AM EDT WTTRqpgvcq74/29/2025 5:00 AM EDT BASIC METABOLIC AGPMTUwbnktq13/29/2025 5:00 AM EDT URINALYSIS MICROSCOPIC WITH REFLEX UEAXILLQyupptj17/28/2025 1:38 PM EDT Kidney replaced by transplant URINALYSIS WITH REFLEX GBKNJUTHvoazjd86/28/2025 1:38 PM EDT Kidney replaced by transplant CREATININE, URINE, IMGYVAPexemzy10/28/2025 1:38 PM EDT Kidney replaced by transplant PROTEIN, URINE, YKVSIMSamcxcm32/28/2025 1:38 PM EDT Kidney replaced by transplant URINE JQZFQRIGqdelpa32/28/2025 1:38 PM EDT Kidney replaced by transplant BILIRUBIN, VUHDVEMctqbar55/28/2025 8:34 AM EDT Encounter for aftercare following kidney transplant Transplanted kidney Encounter for long-term (current) use of medications SINGLE ANTIGEN CLASS LVNlvqtnc72/28/2025 8:34 AM EDT Kidney replaced by transplant SINGLE ANTIGEN CLASS TJjcbtuu99/28/2025 8:34 AM EDT Kidney replaced by transplant CBC WITH AUTO QUAXWGAMLTVHWubdsbt39/28/2025 8:34 AM EDT Encounter for aftercare following kidney transplant Transplanted kidney Encounter for long-term (current) use of medications CMV DNA, QUANTITATIVE, NAAT, SOHLFKUijfchb60/28/2025 8:34 AM EDT Cytomegalovirus (CMV) viremia (CMS/HCC) DONOR SPECIFIC JHENALJSRirjpyu81/28/2025 8:34 AM EDT Kidney replaced by transplant BK VIRUS, PLASMA, VIKLPGASYVUEOrtqmdv34/28/2025 8:34 AM EDT BK viremia LEELA CEYUCKZMNvolhcl45/28/2025 8:34 AM EDT Encounter for aftercare following kidney transplant Immunosuppressive management encounter following kidney transplant TACROLIMUS FMLIPGljwkcb23/28/2025 8:34 AM EDT Encounter for aftercare following kidney transplant Transplanted kidney Encounter for long-term (current) use of medications URIC PNHIZyjaxbz09/28/2025 8:34 AM EDT Encounter for aftercare following kidney transplant Transplanted kidney Encounter for long-term (current) use of medications ABHECCDVIKAegdmwi00/28/2025 8:34 AM EDT Encounter for aftercare following kidney transplant Transplanted kidney Encounter for long-term (current) use of medications EAVBIUDCZVnytvvp74/28/2025 8:34 AM EDT Encounter for aftercare following kidney transplant Transplanted kidney Encounter for long-term (current) use of medications COMPREHENSIVE METABOLIC GDDSPJgotded42/28/2025 8:34 AM EDT Encounter for aftercare following kidney transplant Transplanted kidney Encounter for long-term (current) use of medications CBC AND DMAFBIZMWIKNHkrsxio08/28/2025 8:34 AM EDT Encounter for aftercare following kidney transplant Transplanted kidney Encounter for long-term (current) use of medications CBC WITH AUTO JAMOIDZNQZFUFxlujmu97/23/2025 3:41 PM EDT Encounter for aftercare following kidney transplant Transplanted kidney Encounter for long-term (current) use of medications COMPREHENSIVE METABOLIC PZCLPNndfxjl25/23/2025 3:41 PM EDT Encounter for aftercare following kidney transplant Transplanted kidney Encounter for long-term (current) use of medications CBC AND SKVDBRKTCKASCtejedd39/23/2025 3:41 PM EDT Encounter for aftercare following kidney transplant Transplanted kidney Encounter for long-term (current) use of medications URINALYSIS MICROSCOPIC WITH REFLEX WNEZAVIObgfbyt96/15/2025 10:39 AM EDT Kidney replaced by transplant URINALYSIS WITH REFLEX GEAMGVPSmmrshd64/15/2025 10:39 AM EDT Kidney replaced by transplant CREATININE, URINE, BERSZHTtzohsm43/15/2025 10:39 AM EDT Kidney replaced by transplant PROTEIN, URINE, RAOVGZUcouxfz26/15/2025 10:39 AM EDT Kidney replaced by transplant URINE SIDDYBLVcbitkv98/15/2025 10:39 AM EDT Kidney replaced by transplant MANUAL XIHJSDRNAQEKIiewpff45/15/2025 7:24 AM EDT Encounter for aftercare following kidney transplant Transplanted kidney Encounter for long-term (current) use of medications BILIRUBIN, AGJKMKDhwahec24/15/2025 7:24 AM EDT Encounter for aftercare following kidney transplant Transplanted kidney Encounter for long-term (current) use of medications SINGLE ANTIGEN CLASS QEFuzmwck19/15/2025 7:24 AM EDT Encounter for aftercare following kidney transplant Transplanted kidney Encounter for long-term (current) use of medications SINGLE ANTIGEN CLASS ENhbojwc86/15/2025 7:24 AM EDT Encounter for aftercare following kidney transplant Transplanted kidney Encounter for long-term (current) use of medications CBC WITH AUTO WOAMEAZWBACUTzgkwhy58/15/2025 7:24 AM EDT Encounter for aftercare following kidney transplant Transplanted kidney Encounter for long-term (current) use of medications HIV RNA, QUANTITATIVE, ULNBauhsvu28/15/2025 7:24 AM EDT Encounter for aftercare following kidney transplant Transplanted kidney Encounter for long-term (current) use of medications Screening for human immunodeficiency virus Encounter for screening for diseases of the blood and blood-forming organs and certain disorders involving the immune mechanism HCV QUANTITATIVE APDQcfbtpb08/15/2025 7:24 AM EDT Encounter for aftercare following kidney transplant Transplanted kidney Encounter for long-term (current) use of medications Encounter for screening for diseases of the blood and blood-forming organs and certain disorders involving the immune mechanism HBV QUANT CMMThqdbvo11/15/2025 7:24 AM EDT Encounter for aftercare following kidney transplant Transplanted kidney Encounter for long-term (current) use of medications Encounter for screening for diseases of the blood and blood-forming organs and certain disorders involving the immune mechanism TACROLIMUS VMFUBHkqstrh10/15/2025 7:24 AM EDT Encounter for aftercare following kidney transplant Transplanted kidney Encounter for long-term (current) use of medications URIC YFWCVmbsqyy69/15/2025 7:24 AM EDT Encounter for aftercare following kidney transplant Transplanted kidney Encounter for long-term (current) use of medications DZSXYITTZTDjgfjow78/15/2025 7:24 AM EDT Encounter for aftercare following kidney transplant Transplanted kidney Encounter for long-term (current) use of medications VVBPJSTFSHpoqyox79/15/2025 7:24 AM EDT Encounter for aftercare following kidney transplant Transplanted kidney Encounter for long-term (current) use of medications DONOR SPECIFIC MKVSMCXDVlrzneo74/15/2025 7:24 AM EDT Encounter for aftercare following kidney transplant Transplanted kidney Encounter for long-term (current) use of medications COMPREHENSIVE METABOLIC ATCKARzhkzfn01/15/2025 7:24 AM EDT Encounter for aftercare following kidney transplant Transplanted kidney Encounter for long-term (current) use of medications CBC AND FEVUTGYLQLSNOtbvcrr45/15/2025 7:24 AM EDT Encounter for aftercare following kidney transplant Transplanted kidney Encounter for long-term (current) use of medications POCT GLUCOSE METER UNSOLICITED KJSJYRNLtooxoy44/11/2025 4:30 PM EDT TACROLIMUS CGROMZxxbbjs49/11/2025 4:05 AM EDT CUVBMUKDKHIlelwnu38/11/2025 4:05 AM EDT USVDTJUUINvoqjxq09/11/2025 4:05 AM EDT HIVSokyuoo96/11/2025 4:05 AM EDT BASIC METABOLIC VJSQKRdfwstu44/11/2025 4:05 AM EDT ZRLCATZ8105/11/2025 4:07 PM EDT HISTOLOGY - TISSUE FVGKSeufcqu11/10/2025 3:30 PM EDT BPH with obstruction/lower urinary tract symptoms DC AN ELECTIVE ENDOTRACHEAL KBIVOOKevstfu76/10/2025 2:30 PM EDT DC TRURL ELECTROSURG RESCJ PROSTATE BLEED CDFBJZHM03/10/2025 2:23 PM EDT BPH with obstruction/lower urinary tract symptoms POCT GLUCOSE METER UNSOLICITED GYZDMDOAeydxpa85/10/2025 1:42 PM EDT CARDIAC EVENT YOVHZJFHzeezuo30/01/2025 10:49 AM EDT Ischemic stroke diagnosed during current admission ([facility]) POCT GLUCOSE METER UNSOLICITED EWXUPEGOygtkqg44/01/2025 7:43 AM EDT GOLD CCRHipccaj41/01/2025 3:40 AM EDT EXTRA VSOMIWqoawvy84/01/2025 3:40 AM EDT HBV QUANT TMAPending Fumjzfodn85/01/2025 3:40 AM EDT HIV RNA, QUANTITATIVE, TMAPending Lzgpnyttb51/01/2025 3:40 AM EDT HCV QUANTITATIVE TMAPending Vrcxneoxe73/01/2025 3:40 AM EDT TACROLIMUS LEVELPending Vzzlpzqyp07/01/2025 3:40 AM EDT BASIC METABOLIC PANELPending Tigfglaua34/01/2025 3:40 AM EDT CBCPending Yquzjygqd33/01/2025 3:40 AM EDT POCT GLUCOSE METER UNSOLICITED ZSAQEYIVmatosq60/30/2025 8:49 PM EDT DGFBPDKKNZOauxmkv72/30/2025 4:49 PM EDT Kidney transplanted Encounter for aftercare following kidney transplant POCT GLUCOSE METER UNSOLICITED JJVZOMVZaqitty46/30/2025 4:22 PM EDT DEVICE VKHIACIUsqitpx86/30/2025 3:45 PM EDT AEROBIC ORGANISM VFYQGGECRUNNUASpzuafd92/30/2025 12:00 PM EDT BPH with obstruction/lower urinary tract symptoms NONFERMENTER SUSCEPTIBILITYPending Xnnvkbeiy81/30/2025 12:00 PM EDT BPH with obstruction/lower urinary tract symptoms POCT GLUCOSE METER UNSOLICITED HXCFHTEYkptyyn29/30/2025 11:20 AM EDT POCT GLUCOSE METER UNSOLICITED XXZVIFEBnicofi59/30/2025 7:12 AM EDT TACROLIMUS LEVELPending Zbrxwawmt57/30/2025 4:16 AM EDT BASIC METABOLIC PANELPending Wokihnadx95/30/2025 4:16 AM EDT CBCPending Izqlmkgzj59/30/2025 4:16 AM EDT POCT GLUCOSE METER UNSOLICITED FHGIUQSQsskeoo95/29/2025 9:02 PM EDT POCT GLUCOSE METER UNSOLICITED JZRJSYHJdexvor12/29/2025 4:46 PM EDT VASC US CAROTID ARTERY DUPLEX IDUCJJRERPumvgdk83/29/2025 3:14 PM EDT COMPLETE ECHO (TTE)Bwgyrei4204/30/2025 2:30 PM EDT POCT GLUCOSE METER UNSOLICITED ICRJIDIYvykond66/29/2025 11:25 AM EDT POCT GLUCOSE METER UNSOLICITED IQJKNYRJkbwtpr32/29/2025 7:28 AM EDT TACROLIMUS LEVELPending Ropqsoghg00/29/2025 3:52 AM EDT BASIC METABOLIC PANELPending Vrolsuscq83/29/2025 3:52 AM EDT CBCPending Iuvjizjld23/29/2025 3:52 AM EDT POCT GLUCOSE METER UNSOLICITED JBJWSGPDelpivo43/28/2025 8:55 PM EDT POCT GLUCOSE METER UNSOLICITED FGFJIIHUzgqvas04/28/2025 4:51 PM EDT POCT GLUCOSE METER UNSOLICITED EANKDPHTenqylo11/28/2025 12:11 PM EDT POCT GLUCOSE METER UNSOLICITED ELZRHOKEpbnens61/28/2025 6:58 AM EDT BASIC METABOLIC PANELPending Zfdicynod98/28/2025 4:14 AM EDT CBCPending Kvpnkjgdi41/28/2025 4:14 AM EDT LIPID PANELPending Wihsbhdqf85/28/2025 4:14 AM EDT HEMOGLOBIN M7DNkunnzx Bohdbvpow39/28/2025 4:14 AM EDT URINE KQAVXMSEkkmcin89/27/2025 10:29 PM EDT CBC WITH AUTO QIKDEEXVPOCXCGKX66/27/2025 9:30 PM EDT BASIC METABOLIC QOXXDHCKU74/27/2025 9:30 PM EDT CBC AND GLWERHFLMKVWQVNG40/27/2025 9:30 PM EDT PROTIME-JQGMlgjfcc64/27/2025 9:30 PM EDT POCT GLUCOSE METER UNSOLICITED BOAFVKKTphlphx58/27/2025 9:13 PM EDT MR BRAIN W AND WO NNINTKIMVFUE94/27/2025 5:50 PM EDT POCT OCCULT BLOOD ZFHPSRTZN66/04/2025 5:12 PM EDT from Last 3 Months or Most Recently Relevant to Health Maintenance Results * Urine culture, routine (07/24/2025 11:56 AM EST) Only the most recent of8 resultswithin the time period is included. ComponentValueRef RangeTest MethodAnalysis TimePerformed AtPathologist Signature Urine CultureNo growth at 48 hours JES 07/26/2025 7:15 AM [facility] (PostedIn)Specimen (Source)Anatomical Location / LateralityCollection Method / VolumeCollection TimeReceived TimeUrine Urine specimen obtained by clean catch procedure / UnknownNon-blood Collection / Hvhjkjo1707/24/2025 11:56 AM EST07/24/2025 12:04 PM EST Narrative Authorizing ProviderResult TypeResult StatusJojazmin [facility] MICROBIOLOGY - GENERAL ORDERABLESFinal ResultPerforming OrganizationAddress City/State/ZIP CodePhone Number [facility] ([facility]) [address] [place] [address] * (ABNORMAL) Phosphorus (07/24/2025 5:02 AM EST) Only the most recent of15 resultswithin the time period is included. ComponentValueRef RangeTest MethodAnalysis TimePerformed AtPathologist Signature Phosphorus1.9(L)2.5 - 5.0 mg/dL07/24/2025 6:05 AM [facility] ([facility]) Specimen (Source)Anatomical Location / LateralityCollection Method / Volume Collection TimeReceived TimeBloodVenous blood specimen / UnknownVenipuncture / Xuatulu0007/24/2025 5:02 AM EST07/24/2025 5:39 AM EST Narrative Authorizing ProviderResult TypeResult StatusJayjay Robin MDLAB BLOOD ORDERABLES Final ResultPerforming OrganizationAddressCity/State/ZIP CodePhone Number [facility]) [address] [place] [address] * Magnesium (07/24/2025 5:02 AM EST) Only the most recent of15 resultswithin the time period is included. ComponentValueRef RangeTest MethodAnalysis TimePerformed AtPathologist Signature Magnesium2.21.9 - 2.7 mg/dL07/24/2025 6:05 AM [facility] ([facility]) Specimen (Source)Anatomical Location / LateralityCollection Method / Volume Collection TimeReceived TimeBloodVenous blood specimen / UnknownVenipuncture / Ilbmxoq3907/24/2025 5:02 AM EST07/24/2025 5:39 AM EST Narrative Authorizing ProviderResult TypeResult StatusEsterunatuan Robin MDLAB BLOOD ORDERABLES Final ResultPerforming OrganizationAddressCity/State/ZIP CodePhone Number [facility] ([facility]) [address] [place] [address] * (ABNORMAL) Comprehensive metabolic panel (07/24/2025 5:02 AM EST) Only the most recent of15 resultswithin the time period is included. ComponentValueRef RangeTest MethodAnalysis TimePerformed AtPathologist Signature Vwktxu294027 - 145 mmol/L109/24/2024 6:17 AM [facility] ([facility]) Potassium4.03.5 - 5.1 mmol/L109/24/2024 6:17 AM [facility] ([facility]) Rlcqkrfw690(H)98 - 107 mmol/L109/24/2024 6:17 AM [facility] ([facility])CO2 2221 - 31 mmol/L109/24/2024 6:17 AM [facility] ([facility])Anion Wdv718 - 20 mmol/L109/24/2024 6:17 AM [facility] ([facility])BUN35(H)7 - 25 mg/dL 07/24/2025 6:17 AM [facility] ([facility])Creatinine1.290.70 - 1.30 mg/dL 07/24/2025 6:17 AM [facility] ([facility])BUN/Creatinine Ratio27.1 07/24/2025 6:17 AM [facility] ([facility])Iteyezz632(H)70 - 100 mg/dL 07/24/2025 6:17 AM [facility] ([facility])Calcium7.6(L)8.6 - 10.3 mg/dL 07/24/2025 6:17 AM [facility])ANY4307 - 39 U/L109/24/2024 6:17 AM [facility] ([facility])ALT (SGPT)137 - 52 U/L109/24/2024 6:17 AM [facility] ([facility])Alkaline Obeykqdmeqk9058 - 104 U/L109/24/2024 6:17 AM [facility] ([facility])Total Protein4.4(L)6.0 - 8.3 g/dL07/24/2025 6:17 AM [facility] ([facility])Albumin2.9(L)3.5 - 5.7 g/dL07/24/2025 6:17 AM [facility] ([facility])Total Bilirubin0.30.3 - 1.0 mg/dL07/24/2025 6:17 AM [facility] ([facility])eGFR59.6(L)>60.0 mL/min/1.73m* 6:17 AM [facility] ([facility])Comment:[facility]???s estimated glomerular filtration rate (eGFR) [...] BLOOD ORDERABLES Final ResultPerforming OrganizationAddressCity/State/ZIP CodePhone Number [facility] ([facility]) [address] [place] [address] * Tacrolimus level (07/24/2025 5:01 AM EST) Only the most recent of34 resultswithin the time period is included. ComponentValueRef RangeTest MethodAnalysis TimePerformed AtPathologist Signature Tacrolimus Lvl6.65.0 - 20.0 ng/mL07/24/2025 11:01 AM [facility] ([facility])Comment:The [employer]ER Tacrolimus assay is a delayed one-step immunoassay for the quantitative determination of tacrolimus in human whole blood using the chemiluminescent microparticle immunoassay (CMIA) technology with flexible assay protocols, referred to as Chemiflex.Specimen (Source) Anatomical Location / LateralityCollection Method / VolumeCollection Time Received TimeBloodVenous blood specimen / UnknownVenipuncture / Unknown 07/24/2025 5:01 AM EST07/24/2025 5:39 AM EST Narrative Authorizing ProviderResult TypeResult StatusKnicole FAJARDO BLOOD ORDERABLES Final ResultPerforming OrganizationAddressCity/State/ZIP CodePhone Number [facility] ([facility]) [address] [place] [address] * (ABNORMAL) CBC (07/24/2025 5:01 AM EST) Only the most recent of34 resultswithin the time period is included. ComponentValueRef RangeTest MethodAnalysis TimePerformed AtPathologist Signature Auto WBC10.66(H)4.00 - 10.60 10*3/uL07/24/2025 5:46 AM [facility] ([facility])RBC2.37(L)4.20 - 5.70 10*6/uL07/24/2025 5:46 AM [facility] ([facility])Hemoglobin7.9(L)13.0 - 17.0 g/dL07/24/2025 5:46 AM [facility] ([facility])Ouzprwxhla05.0(L)39.0 - 50.0 %07/24/2025 5:46 AM [facility] ([facility])GRC022.3(H)82.0 - 98.0 fL07/24/2025 5:46 AM [facility] ([facility])MCH33.3(H)27.0 - 33.0 pg07/24/2025 5:46 AM [facility] ([facility]) MCHC32.932.0 - 35.0 g/dL07/24/2025 5:46 AM [facility] ([facility])RDW18.3 (H)11.5 - 15.0 %07/24/2025 5:46 AM [facility] ([facility])Vuqyarqrq640100 - 400 10*3/uL07/24/2025 5:46 AM [facility] [facility]Specimen (Source) Anatomical Location / LateralityCollection Method / VolumeCollection Time Received TimeBloodVenous blood specimen / UnknownVenipuncture / Unknown 07/24/2025 5:01 AM EST07/24/2025 5:39 AM EST Narrative Authorizing ProviderResult TypeResult StatusKunal Lobito [facility]SEPH[facility] BLOOD ORDERABLES Final ResultPerforming OrganizationAddressCity/State/ZIP CodePhone Number [facility] ([facility]) [address] [place] [address] * CT abdomen pelvis wo IV contrast [...] the left upper abdomen. * Atrophic both council kidneys with the left renal cyst. * [...] No biliary ductal dilatation is identified. Both council kidneys are small and atrophic. There is no evidence of hydronephrosis in the council kidneys. There is a stable left renal [...] No biliary ductal dilatation is identified. Both council kidneys are small and atrophic. There is no evidence of hydronephrosis in the council kidneys. There is a stable left renal [...] in the left upper abdomen. *Atrophic both council kidneys with the left renal cyst. *Bilateral small pleural effusions and bibasilar atelectasis. *Pericardial effusion. Electronically signed: Rosalino Rueda. Authorizing ProviderResult TypeResult StatusKunatuan Robin MDG CT PROCEDURESFinal Result * (ABNORMAL) Urinalysis microscopic with reflex culture (07/20/2025 2:37 PM EST) Only the most recent of3 resultswithin the time period is included. ComponentValueRef RangeTest MethodAnalysis TimePerformed AtPathologist Signature RBC, UrineNone SeenNone Seen, 0-2 /HPF07/20/2025 3:19 PM [facility] ([facility])WBC, Urine>50(A)None Seen, 0-2 /HPF07/20/2025 3:19 PM [facility] ([facility])Squamous Epithelial, UrineNone SeenNone Seen, Occasional, Few /LPF 07/20/2025 3:19 PM [facility] ([facility])Mucus, UrineOccasionalNone Seen, Occasional, Few /LPF109/20/2024 3:19 PM [facility] ([facility])WBC Clumps, UrinePresent(A)None Seen /HPF07/20/2025 3:19 PM [facility] ([facility]) Specimen (Source)Anatomical Location / LateralityCollection Method / Volume Collection TimeReceived TimeUrineUrine specimen obtained by clean catch procedure / UnknownNon-blood Collection / Mnxvgym5707/20/2025 2:37 PM EST 07/20/2025 2:43 PM EST Narrative Authorizing ProviderResult TypeResult StatusNicbenji Fabian [facility] URINE ORDERABLESFinal ResultPerforming OrganizationAddressCity/State/ZIP CodePhone Number [facility] ([facility]) [address] [place] [address] * (ABNORMAL) Urinalysis with reflex culture (07/20/2025 2:37 PM EST) Only the most recent of3 resultswithin the time period is included. ComponentValueRef RangeTest MethodAnalysis TimePerformed AtPathologist Signature Color, UrineYellowYellow, Light Yellow, Ucdcosbkg89/19/2025 3:19 PM [facility] ([facility])Clarity, UrineCloudy(A)Clear07/20/2025 3:19 PM [facility] ([facility])pH, Urine6.05.0 - 8.0 pH07/20/2025 3:19 PM [facility] ([facility])Leukocytes, UrineLarge(A)Oixlzady21/19/2025 3:19 PM [facility] ([facility])Nitrite, OliixJeahumgcLckzbjyn04/19/2025 3:19 PM [facility] ([facility])Protein, UrineNegativeNegative mg/dL07/20/2025 3:19 PM [facility] ([facility])Glucose, UrineNormalNormal mg/dL07/20/2025 3:19 PM [facility] ([facility])Bilirubin, OmqkmSoacdmehThlrlzre91/19/2025 3:19 PM [facility] ([facility])Specific [place], Urine<1.005(L)1.010 - 1.3207407/20/2025 3:19 PM [facility] ([facility])Ketones, UrineNegativeNegative mg/dL 07/20/2025 3:19 PM [facility] ([facility])Blood, UrineNegativeNegative 07/20/2025 3:19 PM [facility] ([facility])Urobilinogen, UrineNormalNormal mg/dL07/20/2025 3:19 PM [facility] ([facility])Specimen (Source)Anatomical Location / LateralityCollection Method / VolumeCollection TimeReceived TimeUrine Urine specimen obtained by clean catch procedure / UnknownNon-blood Collection / Ezfwxkm1307/20/2025 2:37 PM EST07/20/2025 2:43 PM EST Narrative Authorizing ProviderResult TypeResult StatusNicole Caren [facility] URINE ORDERABLESFinal ResultPerforming OrganizationAddressCity/State/ZIP CodePhone Number [facility] ([facility]) [address] [place] [address] * XR chest 1 view (07/20/2025 12:20 PM EST) Only the most recent of2 resultswithin the time period is included. Anatomical RegionLateralityModalityChestComputed RadiographySpecimen (Source) Anatomical Location / LateralityCollection Method / VolumeCollection Time Received Time07/20/2025 12:38 PM EST Impressions 07/20/2025 12:58 [...] signed: Michel Valentine MD. Authorizing ProviderResult TypeResult StatusNicole [facility] XR PROCEDURES Final Result * Rapid influenza A/B PCR (07/20/2025 11:21 AM EST)ComponentValueRef RangeTest MethodAnalysis TimePerformed AtPathologist SignatureRapid Influenza A PCR FcjfxugaSkhlccvy14/19/2025 12:11 PM [facility] ([facility])Rapid Influenza B OCXVpikfwsfDoecdngu39/19/2025 12:11 PM [facility] ([facility])Specimen (Source)Anatomical Location / LateralityCollection Method / VolumeCollection TimeReceived TimeSwabNasal structure / UnknownNon-blood Collection / Qfqwpvl1207/20/2025 11:21 AM EST07/20/2025 11:38 AM EST Narrative [facility] ([facility]) - 07/20/2025 12:11 PM EST Testing methodology utilizes isothermal nucleic acid amplification technology for the differential and qualitative detection of Influenza A and Influenza B viral nucleic acids. Authorizing ProviderResult TypeResult StatusBelen Fabian [facility] MICROBIOLOGY - GENERAL ORDERABLESFinal ResultPerforming OrganizationAddressCity/State/ZIP Code Phone Number [facility]) [address] [place] [address] * Blood culture, peripheral #2 (07/20/2025 10:55 AM EST) Only the most recent of6 resultswithin the time period is included. ComponentValueRef RangeTest MethodAnalysis TimePerformed AtPathologist Signature Blood CultureNo growth at 5 days JES 07/25/2025 12:01 PM [facility] ([facility])Specimen (Source)Anatomical Location / LateralityCollection Method / VolumeCollection TimeReceived TimeBlood Venous blood specimen / UnknownVenipuncture / Obdbvmn6907/20/2025 10:55 AM EST 07/20/2025 11:04 AM EST Narrative Authorizing ProviderResult TypeResult StatusJojazmin Briseno [facility] MICROBIOLOGY - GENERAL ORDERABLESFinal ResultPerforming OrganizationAddress City/State/ZIP CodePhone Number [facility]) [address] [place] [address] * (ABNORMAL) CK (07/20/2025 5:15 AM EST)ComponentValueRef RangeTest Method Analysis TimePerformed AtPathologist SignatureTotal CK<10.0(L)30.0 - 223.0 U/L 07/20/2025 5:46 PM [facility])Specimen (Source)Anatomical Location / LateralityCollection Method / VolumeCollection TimeReceived Time BloodVenous blood specimen / UnknownVenipuncture / Oxkgxfw3707/20/2025 5:15 AM EST07/20/2025 5:52 AM EST Narrative Authorizing ProviderResult TypeResult StatusPhilip FAJARDO BLOOD ORDERABLESFinal ResultPerforming OrganizationAddressCity/State/ZIP CodePhone Number [facility] ([facility]) [address] [place] [address] * (ABNORMAL) POCT glucose meter (07/19/2025 7:19 AM EST) Only the most recent of17 resultswithin the time period is included. ComponentValueRef RangeTest MethodAnalysis TimePerformed AtPathologist Signature Glucose KHH408(H)70 - 105 mg/dL07/19/2025 7:29 AM [facility] ([facility]) Comment:jraiSpecimen (Source)Anatomical Location / LateralityCollection Method / VolumeCollection TimeReceived TimeBloodCapillary blood specimen / Unknown 07/19/2025 7:19 AM EST07/19/2025 7:29 AM EST Narrative [facility] ([facility]) - 07/19/2025 7:29 AM EST Waived Testing in the ED is performed under the ED CLIA certificate #[id number]. Authorizing ProviderResult TypeResult StatusJayjay FAJARDO BLOOD ORDERABLES Final ResultPerforming OrganizationAddressCity/State/ZIP CodePhone Number [facility] ([facility]) [address] [place] [address] * (ABNORMAL) Vitamin D 25 hydroxy (07/18/2025 5:32 AM EST)ComponentValueRef RangeTest MethodAnalysis TimePerformed AtPathologist SignatureVit D, 25-Kivcrjo77.0(L)30.0 - 80.0 ng/mL07/18/2025 1:13 PM [facility] ([facility])Comment:>80.0 Toxicity possibleSpecimen (Source)Anatomical Location / LateralityCollection Method / VolumeCollection TimeReceived TimeBloodVenous blood specimen / UnknownVenipuncture / Ypysvkf6407/18/2025 5:32 AM EST07/18/2025 5:57 AM EST Narrative Authorizing ProviderResult TypeResult StatusWendy Lomeli [facility] BLOOD ORDERABLES Final ResultPerforming OrganizationAddressCity/State/ZIP CodePhone Number [facility]) [address] [place] [address] * PTH, intact (07/18/2025 5:32 AM EST)ComponentValueRef RangeTest MethodAnalysis TimePerformed AtPathologist NslscyopqMUI1233 - 88 pg/mL07/18/2025 11:43 AM EST [facility] ([facility])Specimen (Source)Anatomical Location / Laterality Collection Method / VolumeCollection TimeReceived TimeBloodVenous blood specimen / UnknownVenipuncture / Pibfcad7807/18/2025 5:32 AM EST07/18/2025 5:57 AM EST Narrative Authorizing ProviderResult TypeResult StatusWendy Lomeli [facility] BLOOD ORDERABLES Final ResultPerforming OrganizationAddressCity/State/ZIP CodePhone Number [facility]) [address] [place] [address] * Single antigen class II (07/17/2025 12:17 PM EST) Only the most recent of3 resultswithin the time period is included. ComponentValueRef RangeTest MethodAnalysis TimePerformed AtPathologist Signature Tested [id number]/22/2025 2:42 PM ESTUT TISSUE TYPING (HISTOTRAC) CommentsNo Class II donor specific antibody etlilmxogq49/22/2025 2:42 PM ESTUT TISSUE TYPING (HISTOTRAC)Test MethodClass II Single Kgzcxid6207/23/2025 2:42 PM ESTUT TISSUE TYPING (HISTOTRAC)Comment:Class II Antigen MicrobeadsSigned By Signed by Ghazal Stovall CHT([facility]) ALYSSA(ASCP), Physiological Chemist Transplant Immunology 07/23/2025 2:42 PM ESTUT TISSUE TYPING (HISTOTRAC)Specimen (Source)Anatomical Location / LateralityCollection Method / VolumeCollection TimeReceived TimeBlood Venous blood specimen / UnknownVenipuncture / Ianjory3707/17/2025 12:17 PM EST 07/17/2025 12:22 PM EST Narrative Authorizing ProviderResult TypeResult StatusGrazyna Briseno [facility] BLOOD ORDERABLESFinal ResultPerforming OrganizationAddressCity/State/ZIP CodePhone Number [facility] TISSUE TYPING (HISTOTRAC) [address] [facility] [place] [address], * Single antigen class I (07/17/2025 12:17 PM EST) Only the most recent of3 resultswithin the time period is included. ComponentValueRef RangeTest MethodAnalysis TimePerformed AtPathologist Signature Tested Bimw6622536740588018/22/2025 2:42 PM [facility] TISSUE TYPING (HISTOTRAC) Test MethodClass I Single Kmbmmhx6707/23/2025 2:42 PM [facility] TISSUE TYPING (HISTOTRAC)Signed BySigned by Ghazal Stovall CHT([facility]) ALYSSA(ASCP), Physiological Chemist Transplant Pkajxjijpd24/22/2025 2:42 PM [facility] TISSUE TYPING (HISTOTRAC) Comment:Class I Antigen MicrobeadsCommentsNo Class I donor specific antibody rczyaajzqe51/22/2025 2:42 PM [facility] TISSUE TYPING (HISTOTRAC)Specimen (Source) Anatomical Location / LateralityCollection Method / VolumeCollection Time Received TimeBloodVenous blood specimen / UnknownVenipuncture / Unknown 07/17/2025 12:17 PM EST07/17/2025 12:22 PM EST Narrative Authorizing ProviderResult TypeResult StatusJojazmin Briseno [facility] BLOOD ORDERABLESFinal ResultPerforming OrganizationAddressCity/State/ZIP CodePhone Number [facility] TISSUE TYPING (HISTOTRAC) [address] [place] [place] [address], * BK virus, plasma, quantitative (07/17/2025 12:17 PM EST) Only the most recent of2 resultswithin the time period is included. ComponentValueRef RangeTest MethodAnalysis TimePerformed AtPathologist Signature BK Virus Plasma InterpretationNot DetectedNot Jdbsyfxw13/22/2025 2:18 PM [facility] ([facility])BK Virus QuantitationNot DetectedNot Detected copies/mL 07/23/2025 2:18 PM [facility] (PostedIn)Comment: Method: BK virus was measured by quantitative polymerase chain reaction using a fluorescent hydrolysis probe targeting the polyomavirus BK DIESEL LUBE TECH-1 gene. The lower limit of quantitation of the assay is 500 copies of BK genome per milliliter of plasma orurine, and any detectable BK DNA below that level is reported as: Detected, <500 copies/ml. Serial BK virus measurement can be used to monitor disease activity. (Reference: Crystal healyl. J CLIN MICRO 2004; 42:1192-2957). This test was developed and its performance characteristics determined by the [facility]. It has not been approved by the [place] Food and Drug Administration. However, such approval is not required for clinical implementation, and test results have been shown to be clinicallyuseful. This laboratory is CAP accredited and CLIA certified to perform high complexity testing. BK Virus Quant LogNot DetectedNot Detected copies/mL07/23/2025 2:18 PM [facility] ([place])Specimen (Source)Anatomical Location / LateralityCollection Method / VolumeCollection TimeReceived TimeBloodVenous blood specimen / Unknown Venipuncture / Bcuqgux1207/17/2025 12:17 PM EST07/17/2025 12:25 PM EST Narrative Authorizing ProviderResult TypeResult StatusJojazmin Garciangton [facility] BLOOD ORDERABLESFinal ResultPerforming OrganizationAddressCity/State/ZIP CodePhone Number [facility] ([place]) [address] [place] [address] * CMV DNA, quantitative, NAAT, plasma (07/17/2025 12:17 PM EST) Only the most recent of2 resultswithin the time period is included. ComponentValueRef RangeTest MethodAnalysis TimePerformed AtPathologist Signature CMV Qnt by NAAT, Plasma IU/mLNot DetectedIU/mL07/19/2025 5:12 PM [facility])CMV Qnt by NAAT, Plasma log IU/mLNot Detectedlog IU/mL 07/19/2025 5:12 PM [facility])CMV Qnt by NAAT, Plasma InterpNot DetectedNot Ovjzxzuu76/18/2025 5:12 PM [facility] ([facility])Comment: INTERPRETIVE INFORMATION: CMV by Quantitative [...] commutability issues with the standard. Performed By: [facility] [address] [place] [id number] [employer] Superintendent: Julián Wooten MD, PhD CLIA Number: [id number] Specimen (Source)Anatomical Location / LateralityCollection Method / Volume Collection TimeReceived TimeBloodVenous blood specimen / UnknownVenipuncture / Scxkqjh3607/17/2025 12:17 PM EST07/17/2025 12:25 PM EST Narrative Authorizing ProviderResult TypeResult StatusDepartment of [facility] BLOOD ORDERABLESFinal ResultPerforming OrganizationAddressCity/State/ZIP CodePhone Number [facility] ([facility]) [address] [place] [address] * Protein, urine, random (07/17/2025 12:12 PM EST) Only the most recent of3 resultswithin the time period is included. ComponentValueRef RangeTest MethodAnalysis TimePerformed AtPathologist Signature Protein, Ur25.6mg/dL07/17/2025 1:53 PM [facility] ([facility])Comment: There are no established reference values for random urine specimens.Specimen (Source)Anatomical Location / LateralityCollection Method / VolumeCollection TimeReceived TimeUrineUrine specimen obtained by clean catch procedure / Unknown Non-blood Collection / Mxcfbyt2607/17/2025 12:12 PM EST07/17/2025 1:12 PM EST Narrative Authorizing ProviderResult TypeResult StatusDepartment of [facility] URINE ORDERABLESFinal ResultPerforming OrganizationAddressCity/State/ZIP CodePhone Number [facility] ([facility]) [address] [place] [address] * Creatinine, urine, random (07/17/2025 12:12 PM EST) Only the most recent of3 resultswithin the time period is included. ComponentValueRef RangeTest MethodAnalysis TimePerformed AtPathologist Signature Creatinine, Ur53.026 - 299 mg/dL07/17/2025 1:53 PM [facility] ([facility]) Specimen (Source)Anatomical Location / LateralityCollection Method / Volume Collection TimeReceived TimeUrineUrine specimen obtained by clean catch procedure / UnknownNon-blood Collection / Dphchza1407/17/2025 12:12 PM EST 07/17/2025 1:12 PM EST Narrative Authorizing ProviderResult TypeResult StatusDepartment of [facility] URINE ORDERABLESFinal ResultPerforming OrganizationAddressCity/State/ZIP CodePhone Number [facility] ([facility]) [address] [place] [address] * (ABNORMAL) Urinalysis microscopic (07/17/2025 12:12 PM EST) Only the most recent of2 resultswithin the time period is included. ComponentValueRef RangeTest MethodAnalysis TimePerformed AtPathologist Signature RBC, Urine0-2None Seen, 0-2 /HPF07/17/2025 1:43 PM [facility] ([facility]) WBC, Urine6-10(A)None Seen, 0-2 /HPF07/17/2025 1:43 PM [facility] ([facility])Squamous Epithelial, UrineNone SeenNone Seen, Occasional, Few /LPF 07/17/2025 1:43 PM [facility] ([facility])Mucus, UrineOccasionalNone Seen, Occasional, Few /LPF109/17/2024 1:43 PM [facility] ([facility])Specimen (Source)Anatomical Location / LateralityCollection Method / VolumeCollection TimeReceived TimeUrineUrine specimen obtained by clean catch procedure / Unknown Non-blood Collection / Vdsqmrg0707/17/2025 12:12 PM EST07/17/2025 1:12 PM EST Narrative Authorizing ProviderResult TypeResult StatusDepartment of [facility] URINE ORDERABLESFinal ResultPerforming OrganizationAddressCity/State/ZIP CodePhone Number [facility] ([facility]) [address] [place] [address] * (ABNORMAL) Urinalysis (07/17/2025 12:12 PM EST) Only the most recent of2 resultswithin the time period is included. ComponentValueRef RangeTest MethodAnalysis TimePerformed AtPathologist Signature Color, UrineLight-YellowColorless, Yellow, Light-Cxotcf5407/17/2025 1:42 PM EST [facility] ([facility])Clarity, NybpbWdlceKwtlk18/16/2025 1:42 PM [facility] ([facility])pH, Urine7.05.0 - 8.0 pH07/17/2025 1:42 PM [facility] ([facility])Leukocytes, UrineModerate(A)Yyqzexaz99/16/2025 1:42 PM [facility] ([facility])Nitrite, UrinePositive(A)Kzlcooke08/16/2025 1:42 PM [facility] ([facility])Protein, UrineNegativeNegative mg/dL07/17/2025 1:42 PM EST [facility] ([facility])Glucose, UrineNormalNormal mg/dL07/17/2025 1:42 PM EST [facility] ([facility])Bilirubin, TolitNjruckmdTepezozm35/16/2025 1:42 PM EST [facility] ([facility])Specific [place], Urine1.0131.010 - 1.4526007/17/2025 1:42 PM [facility] ([facility])Ketones, UrineNegativeNegative mg/dL 07/17/2025 1:42 PM [facility] ([facility])Blood, UrineNegativeNegative 07/17/2025 1:42 PM [facility] ([facility])Urobilinogen, UrineNormalNormal mg/dL07/17/2025 1:42 PM [facility] ([facility])Specimen (Source)Anatomical Location / LateralityCollection Method / VolumeCollection TimeReceived TimeUrine Urine specimen obtained by clean catch procedure / UnknownNon-blood Collection / Xxfibdj1707/17/2025 12:12 PM EST07/17/2025 1:12 PM EST Narrative Authorizing ProviderResult TypeResult StatusJojazmin Briseno [facility] URINE ORDERABLESFinal ResultPerforming OrganizationAddressCity/State/ZIP CodePhone Number [facility] ([facility]) [address] [place] [address] * (ABNORMAL) CBC auto differential (07/15/2025 11:27 AM EST) Only the most recent of5 resultswithin the time period is included. ComponentValueRef RangeTest MethodAnalysis TimePerformed AtPathologist Signature Auto WBC11.67(H)4.00 - 10.60 10*3/uL07/15/2025 11:42 AM [facility] ([facility])RBC2.37(L)4.20 - 5.70 10*6/uL07/15/2025 11:42 AM [facility] ([facility])Hemoglobin8.0(L)13.0 - 17.0 g/dL07/15/2025 11:42 AM [facility] ([facility])Iryjxhbpgb36.9(L)39.0 - 50.0 %07/15/2025 11:42 AM [facility] ([facility])BYM027.8(H)82.0 - 98.0 fL07/15/2025 11:42 AM [facility] ([facility])MCH33.8(H)27.0 - 33.0 pg07/15/2025 11:42 AM [facility] ([facility])MCHC33.532.0 - 35.0 g/dL07/15/2025 11:42 AM [facility] ([facility])RDW16.8(H)11.5 - 15.0 %07/15/2025 11:42 AM [facility] ([facility]) Neutrophils %75.3(H)40.0 - 72.0 %07/15/2025 11:42 AM [facility] ([facility])Lymphocytes %14.3(L)20.0 - 45.0 %07/15/2025 11:42 AM [facility] ([facility])Monocytes %8.15.0 - 12.0 %07/15/2025 11:42 AM [facility] ([facility])Eosinophils %0.40.0 - 6.0 %07/15/2025 11:42 AM [facility] ([facility])Basophils %0.20.0 - 1.0 %07/15/2025 11:42 AM [facility] ([facility])Neutrophils Absolute8.78(H)1.60 - 7.60 10*3/uL07/15/2025 11:42 AM [facility] ([facility])Lymphocytes Absolute1.671.20 - 4.00 10*3/uL07/15/2025 11:42 AM [facility] ([facility])Monocytes Absolute0.950.10 - 1.00 10*3/uL 07/15/2025 11:42 AM [facility] ([facility])Eosinophils Absolute0.050.00 - 0.50 10*3/uL07/15/2025 11:42 AM [facility] ([facility])Basophils Absolute 0.020.00 - 0.20 10*3/uL07/15/2025 11:42 AM [facility] ([facility]) [id number] - 400 10*3/uL07/15/2025 11:42 AM [facility] ([facility]) nRBC %0.00 %07/15/2025 11:42 AM [facility])Immature Granulocytes %1.7(H)0.0 - 1.0 %07/15/2025 11:42 AM [facility]) Immature Granulocytes Absolute0.200.00 - 0.20 10*3/uL07/15/2025 11:42 AM [facility] ([facility])Specimen (Source)Anatomical Location / LateralityCollection Method / VolumeCollection TimeReceived TimeBloodVenous blood specimen / Unknown Venipuncture / Lkbugdr8107/15/2025 11:27 AM EST07/15/2025 11:32 AM EST Narrative Authorizing ProviderResult TypeResult StatusKunal Lobito FAJARDO BLOOD ORDERABLES Final ResultPerforming OrganizationAddressCity/State/ZIP CodePhone Number [facility] ([facility]) [address] [place], [place] [id number] * (ABNORMAL) Iron and TIBC (07/15/2025 3:27 AM EST)ComponentValueRef RangeTest MethodAnalysis TimePerformed AtPathologist SsohivljmKowk57(L)50 - 212 ug/dL 07/15/2025 11:07 AM [facility] ([facility])TIBC<91(L)250 - 450 ug/dL 07/15/2025 11:07 AM [facility] ([facility])Iron Ydggnbxywg12/14/2025 11:07 AM [facility])Comment:Unable to CalculateUIBC<55.0(L) 155.0 - 355.0 ug/dL07/15/2025 11:07 AM [facility])Specimen (Source)Anatomical Location / LateralityCollection Method / VolumeCollection TimeReceived TimeBloodVenous blood specimen / UnknownVenipuncture / Unknown 07/15/2025 3:27 AM EST07/15/2025 4:36 AM EST Narrative Authorizing ProviderResult TypeResult StatusKunatuan Robin [facility] BLOOD ORDERABLES Final ResultPerforming OrganizationAddressCity/State/ZIP CodePhone Number [facility]) [address] [place] [address] * (ABNORMAL) Ferritin (07/15/2025 3:27 AM EST)ComponentValueRef RangeTest Method Analysis TimePerformed AtPathologist OvybbkqlkDymyholm871.0(H)24.0 - 336.0 ng/mL07/15/2025 8:24 PM [facility])Specimen (Source) Anatomical Location / LateralityCollection Method / VolumeCollection Time Received TimeBloodVenous blood specimen / UnknownVenipuncture / Unknown 07/15/2025 3:27 AM EST07/15/2025 4:36 AM EST Narrative Authorizing ProviderResult TypeResult StatusJayjay Robin [facility] BLOOD ORDERABLES Final ResultPerforming OrganizationAddressCity/State/ZIP CodePhone Number [facility]) [address] [place] [address] * (ABNORMAL) SARS-CoV-2 PCR (07/14/2025 6:13 PM EST)ComponentValueRef RangeTest MethodAnalysis TimePerformed AtPathologist PvutzlvefHMJE-SxQ-2 PCRPositive(AA) Uxqpemur12/13/2025 6:40 PM [facility])Specimen (Source) Anatomical Location / LateralityCollection Method / VolumeCollection Time Received TimeSwabNasal structure / UnknownNon-blood Collection / Unknown 07/14/2025 6:13 PM EST07/14/2025 6:17 PM EST Narrative [facility]) - 07/14/2025 6:40 PM EST Testing methodology utilizes isothermal nucleic acid amplification technology for the differential and qualitative detection of SARS-CoV-2 viral nucleic acids. Authorizing ProviderResult TypeResult StatusBrinda FAJARDO MICROBIOLOGY - GENERAL ORDERABLESFinal ResultPerforming OrganizationAddressCity/State/ZIP Code Phone Number [facility] ([facility]) [address] [place] [address] * External Comprehensive metabolic panel (07/02/2025)ComponentValueRef RangeTest MethodAnalysis TimePerformed AtPathologist SignatureExternal Fasting Glucose 118mg/LExternal Creatinine, Serum2.1mg/mLExternal WQL96dr/dLExternal Potassium 4.8mmol/LExternal Sodium, axqoc004qxla/LExternal CO2, hmjjm87nCa/LExternal Afejkzpc248okgk/LExternal Calcium6.9mg/dLComment:corrected calcium 8.34 External Albumin2.2External Protein, total3.9g/dLExternal Alkaline Phosphatase 72U/LExternal ALT27U/LExternal AST13U/LExternal Bilirubin,total0.3mg/dL Specimen (Source)Anatomical Location / LateralityCollection Method / Volume Collection TimeReceived TimeBloodVenous blood specimen / Eiyqdpc6807/02/2025 Narrative Authorizing ProviderResult TypeResult StatusHistorical Provider [facility] EXTERNAL ORDERSFinal Result * (ABNORMAL) Basic metabolic panel (06/14/2025 6:11 AM EST) Only the most recent of22 resultswithin the time period is included. ComponentValueRef RangeTest MethodAnalysis TimePerformed AtPathologist Signature Qyhqiu133565 - 145 mmol/L108/14/2024 7:05 AM [facility] ([facility]) Potassium4.23.5 - 5.1 mmol/L108/14/2024 7:05 AM [facility] ([facility]) Dhzuguik335(H)98 - 107 mmol/L108/14/2024 7:05 AM [facility] ([facility])CO2 2321 - 31 mmol/L108/14/2024 7:05 AM [facility] ([facility])BUN26(H)7 - 25 mg/dL06/14/2025 7:05 AM [facility] ([facility])Creatinine1.280.70 - 1.30 mg/dL06/14/2025 7:05 AM [facility] ([facility])Bjvgxiy481(H)70 - 100 mg/dL 06/14/2025 7:05 AM [facility] ([facility])Calcium7.5(L)8.6 - 10.3 mg/dL 06/14/2025 7:05 AM [facility] ([facility])Anion Gap87 - 20 mmol/L 06/14/2025 7:05 AM [facility] ([facility])eGFR60.2>60.0 mL/min/1.73m*2 06/14/2025 7:05 AM [facility] ([facility])Comment:[facility]???s estimated glomerular filtration rate (eGFR) [...] affect any one group of individuals. BUN/Creatinine Ratio20. 7:05 AM [facility] ([facility])Specimen (Source)Anatomical Location / LateralityCollection Method / VolumeCollection TimeReceived TimeBloodVenous blood specimen / UnknownArterial Line / Unknown 06/14/2025 6:11 AM EST06/14/2025 6:38 AM EST Narrative Authorizing ProviderResult TypeResult StatusJordchaparro Briseno [facility] BLOOD ORDERABLESFinal ResultPerforming OrganizationAddressCity/State/ZIP CodePhone Number [facility] ([facility]) [address] [place], [place] [phone] * (ABNORMAL) Electrolyte panel (06/12/2025 10:17 PM EST)ComponentValueRef Range Test MethodAnalysis TimePerformed AtPathologist TpzfggftgIqoukd088069 - 145 mmol/L108/12/2024 10:47 PM [facility] ([facility])Potassium4.13.5 - 5.1 mmol/L108/12/2024 10:47 PM [facility] ([facility])Nyoyvvcp575(H)98 - 107 mmol/L108/12/2024 10:47 PM [facility] ([facility])ZR80617 - 31 mmol/L 06/12/2025 10:47 PM [facility] ([facility])Anion Gap87 - 20 mmol/L 06/12/2025 10:47 PM [facility] ([facility])Specimen (Source)Anatomical Location / LateralityCollection Method / VolumeCollection TimeReceived Time BloodVenous blood specimen / UnknownArterial Line / Fbndhwt8906/12/2025 10:17 PM EST06/12/2025 10:25 PM EST Narrative Authorizing ProviderResult TypeResult StatusJayjay Robin [facility] BLOOD ORDERABLES Final ResultPerforming OrganizationAddressCity/State/ZIP CodePhone Number [facility]) [address] [place] [address] * (ABNORMAL) Folate (06/10/2025 5:54 AM EST)ComponentValueRef RangeTest Method Analysis TimePerformed AtPathologist SignatureFolate5.17(L)6.6 - 1,000 ng/mL 06/10/2025 7:11 AM [facility] ([facility])Specimen (Source)Anatomical Location / LateralityCollection Method / VolumeCollection TimeReceived Time BloodBlood sample taken from central line / UnknownArterial Line / Unknown 06/10/2025 5:54 AM EST06/10/2025 6:19 AM EST Narrative Authorizing ProviderResult TypeResult StatusMauro FAJARDO BLOOD ORDERABLESFinal ResultPerforming OrganizationAddressCity/State/ZIP CodePhone Number [facility]) [address] [place] [address] * Vitamin B12 (06/10/2025 5:54 AM EST)ComponentValueRef RangeTest MethodAnalysis TimePerformed AtPathologist SignatureVitamin B-49371996 - 914 pg/mL06/10/2025 7:11 AM [facility])Comment: REFERENCE RANGES: 180-914 pg/mL ??Normal 145-179 pg/mL ??Indeterminate <145 pg/mL Deficient Specimen (Source)Anatomical Location / LateralityCollection Method / Volume Collection TimeReceived TimeBloodBlood sample taken from central line / Unknown Arterial Line / Vncpxtc3306/10/2025 5:54 AM EST06/10/2025 6:19 AM EST Narrative Authorizing ProviderResult TypeResult StatusJoseph Kwadwo FAJARDO BLOOD ORDERABLESFinal ResultPerforming OrganizationAddressCity/State/ZIP CodePhone Number [facility] ([facility]) [address] [place] [address] * Leela Prospera (Single) (06/02/2025 8:57 PM EDT) Only the most recent of2 resultswithin the time period is included. ComponentValueRef RangeTest MethodAnalysis TimePerformed AtPathologist Signature CURRENT TEST RESULT0.12%06/02/2025 8:57 PM EDTNATERA LABORATORYComment: Decreased risk for rejection dd-cfDNA Quantity: 13 cp/ml Ref range displayed is for Prospera Test for Kidney Transplant Increased Risk of Rejection: dd-cfDNA % >= 1% or DQS >= 78 cp/ml; Decreased Risk of Rejection: dd-cfDNA % <1% and DQS <78 cp/ml For technical details, limitations, and testing methodology please refer to the complete report viathe [facility] Provider Portal or contact your [facility] Nurse Coordinator at [phone] PATIENT TEST HISTORYSee Notes06/02/2025 8:57 PM EDTNATERA LABORATORYComment: Date: 05-29-2025, Value: dd-cfDNA% 0.12%, dd-cfDNA Quantity: 13 cp/ml, Total cfDNA: - Date: 05-29-2025, Value: dd-cfDNA% 0.12%, dd-cfDNA Quantity: 13 cp/ml, Total cfDNA: - Date: 04-26-2025, Value: dd-cfDNA% 0.59%, dd-cfDNA Quantity: 31 cp/ml, Total cfDNA: - Date: 04-23-2025, Value: dd-cfDNA% 1.19%, dd-cfDNA Quantity: 53 cp/ml, Total cfDNA: - Decreased risk for rejection Test performed by [facility]. : [address] [place] [id number]. CLIA ID #[id number]: CLIA Cabin Outfitter: Imtiaz Wade, Ph.D., [facility] Specimen (Source)Anatomical Location / LateralityCollection Method / Volume Collection TimeReceived TimeBlood specimen (specimen)Venous blood specimen / Bxtczaa4805/30/2025 3:00 AM EDT Narrative Authorizing ProviderResult TypeResult StatusKunal Lobito MDTONO MOLECULAR DIAGNOSTICS ORDERABLESFinal ResultPerforming OrganizationAddressCity/State/ZIP CodePhone Number [facility] [address] [place] [address], [place] * IR CT guided abscess fluid collection drainage (05/31/2025 4:28 PM EDT) Anatomical RegionLateralityModalityBodyComputed TomographySpecimen (Source) Anatomical Location / LateralityCollection Method / VolumeCollection Time Received Time05/31/2025 4:17 PM EDT Impressions 05/31/2025 4:[address]-guided placement of 8.5 pigtail drainage catheter for right lower quadrant perirenal transplant fluid collection. Fluid aspirate demonstrates clear yellow/pink-tinged fluid which was submitted for laboratory analysis. Electronically signed: Beth Rios. Narrative 05/31/2025 4:19 PM EDT EXAM: CT -GUIDED DRAINAGE CATHETER PLACEMENT CLINICAL HISTORY: 69-year-old male with a history of a fluid collection around right renal transplant here for drainage catheter placement. CONSENT: The risks and benefits of the procedure were explained to the patient signed written consent. ANESTHESIA: Moderate sedation with Versed 1 mg and Fentanyl 50 mcg IV; A qualified, independent radiology nurse monitored the patient's cardiovascular status during the procedure. 1% Lidocaine used as local anesthetic. Sedation time was 30 minutes. ?? All CT scans at this facility use dose modulation, iterative reconstruction, and/or weight based dosing when appropriate to reduce radiation dose to as low as reasonably achievable. PROCEDURE/FINDINGS: In the supine position, the right lower quadrant perirenal transplant collection was evaluated with CT which revealed a good window for percutaneous drainage catheter placement. ??The patient was prepped and draped in usual sterile fashion and the skin was infiltrated with 1% lidocaine for local anesthesia. ??Utilizing CT guidance, a 18-gauge one-step was advanced into the targeted collection, an 035 wire was then coiled within the collection. ??The tract was then dilated to accommodate a 8.5-[place] Lucian pigtail drainage catheter. 50 mL of clear yellow fluid was immediately aspirated and submitted for laboratory analysis. ??The catheter was formed and secured to the skin with a single suture. ??A sterile dressing was applied at the site. ??The patient tolerated the procedure well with no immediate postprocedural complication. Estimated blood loss: Minimal Procedure Note Beth Rios MD - 05/31/2025 EXAM: CT -GUIDED DRAINAGE CATHETER PLACEMENT CLINICAL HISTORY: 69-year-old male with a history of a fluid collectionaround right renal transplant here for drainage catheter placement. CONSENT: The risks and benefits of the procedure were explained to thepatient signed written consent. ANESTHESIA: Moderate sedation with Versed 1 mg and Fentanyl 50 mcg IV; A qualified, independent radiology nurse monitored the patient's cardiovascular statusduring the procedure. 1% Lidocaine used as local anesthetic. Sedation time was30 minutes. All CT scans at this facility use dose modulation, iterativereconstruction, and/or weight based dosing when appropriate to reduce radiation dose to aslow as reasonably achievable. PROCEDURE/FINDINGS: In the supine position, the right lower quadrant perirenal transplantcollection was evaluated with CT which revealed a good window for percutaneousdrainage catheter placement. The patient was prepped and draped in usual sterilefashion and the skin was infiltrated with 1% lidocaine for local anesthesia.Utilizing CT guidance, a 18-gauge one-step was advanced into the targetedcollection, an 035 wire was then coiled within the collection. The tract was thendilated to accommodate a 8.5-St Lucian pigtail drainage catheter. 50 mL of clear yellowfluid was immediately aspirated and submitted for laboratory analysis. Thecatheter was formed and secured to the skin with a single suture. A steriledressing was applied at the site. The patient tolerated the procedure well with noimmediate postprocedural complication. Estimated blood loss: Minimal IMPRESSION: Successful CT-guided placement of 8.5 pigtail drainage catheter for rightlower quadrant perirenal transplant fluid collection. Fluid aspiratedemonstrates clear yellow/pink-tinged fluid which was submitted for laboratoryanalysis. Electronically signed: Beth Rios. Authorizing ProviderResult TypeResult StatusGrazyna Briseno [facility] PROCEDURESFinal Result * Body fluid culture (05/31/2025 3:10 PM EDT)ComponentValueRef RangeTest Method Analysis TimePerformed AtPathologist SignatureCultureNo growth at 5 days JES 06/05/2025 7:56 AM [facility] ([facility])Gram Stain Result Polymorphonuclear /04/2025 7:56 AM [facility] ([facility])Gram Stain ResultNo organisms seen06/05/2025 7:56 AM [facility] ([facility]) Gram Stain ResultCytocentrifuge rucrik6306/05/2025 7:56 AM [facility] ([facility])Specimen (Source)Anatomical Location / LateralityCollection Method / VolumeCollection TimeReceived TimeFluid (Peritoneal fluid)05/31/2025 3:10 PM EDT 05/31/2025 4:25 PM EDT Narrative Authorizing ProviderResult TypeResult [facility] MICROBIOLOGY - GENERAL ORDERABLESFinal ResultPerforming OrganizationAddress City/State/ZIP CodePhone Number [facility] ([facility]) [address] [place] [address] * Creatinine, body fluid (05/31/2025 3:10 PM EDT)ComponentValueRef RangeTest MethodAnalysis TimePerformed AtPathologist SignatureCreat, Fluid1.8mg/dL 05/31/2025 4:52 PM EDTREH[facility] ([facility])Comment:The reference range for this testing has not been established.Specimen (Source)Anatomical Location / LateralityCollection Method / VolumeCollection TimeReceived TimeFluid (Peritoneal fluid)05/31/2025 3:10 PM EDT1 4:25 PM EDT Narrative Authorizing ProviderResult TypeResult [facility] BODY FLUIDS AND STOOLS ORDERABLESFinal ResultPerforming OrganizationAddressty/State/ZIP CodePhone Number [facility] ([facility]) [address] [place] [address] * APTT (05/31/2025 4:24 AM EDT)ComponentValueRef RangeTest MethodAnalysis Time Performed AtPathologist MpqmawhsuyOAW07.125.0 - 35.0 Fviheum9405/31/2025 5:49 AM [facility] ([facility])Comment:Clinical significance of the APTT is questionable in the presence of heparin.Specimen (Source)Anatomical Location / LateralityCollection Method / VolumeCollection TimeReceived TimeBloodVenous blood specimen / UnknownVenipuncture / Lhuwskm4205/31/2025 4:24 AM EDT1 4:59 AM EDT Narrative Authorizing ProviderResult TypeResult StatusJordchaparro GarciaFinnLaird Hospital BLOOD ORDERABLESFinal ResultPerforming OrganizationAddressCity/State/ZIP CodePhone Number [facility] ([facility]) [address] [place] [address] * (ABNORMAL) Protime-INR (05/31/2025 4:24 AM EDT) Only the most recent of2 resultswithin the time period is included. ComponentValueRef RangeTest MethodAnalysis TimePerformed AtPathologist Signature Hldlwpo39.3(H)12.3 - 14.8 Qzwikxi5605/31/2025 5:49 AM [facility] ([facility])INR1.21(H)0.90 - 1.101 5:49 AM [facility] ([facility]) Comment: ACCCP RECOMMENDED INR FOR WARFARIN THERAPY [...] TimeReceived TimeBloodVenous blood specimen / UnknownVenipuncture / Cjkmzer8505/31/2025 4:24 AM EDT1 4:59 AM EDT Narrative Authorizing ProviderResult TypeResult StatusJordchaparro GarciaLouisvilleLaird Hospital BLOOD ORDERABLESFinal ResultPerforming OrganizationAddressCity/State/ZIP CodePhone Number [facility] ([facility]) [address] [place] [address] * US KIDNEY TRANSPLANT W DOPPLER (05/30/2025 7:56 AM EDT)Anatomical Region LateralityModalityKidney, AbdomenUltrasoundSpecimen (Source)Anatomical Location / LateralityCollection Method / VolumeCollection TimeReceived Time 05/30/2025 8:09 AM EDT Impressions 05/30/2025 8:13 AM EDT * Right lower quadrant renal transplant measuring 12.1 x 5.4 x 6.1 cm. * There is a peritransplant fluid collection measuring 7.1 x 5.1 x 11.9 cm. * Very mild collecting system prominence. Cannot exclude minimal echogenic debris in the renal pelvis. RI-0.68 RI-0.69 RI-0.61 RENAL ART: PS-116.0cm/s ED-19.5cm/s RI-0.83 RENAL VEIN: ARMAND=20.5cm/s Electronically signed: Shekhar Samuels MD. Narrative 05/30/2025 8:13 AM EDT US KIDNEY TRANSPLANT W DOPPLER Clinical information: Kidney transplant. Comparison: 04/10/25. Procedure Note Shekhar Samuels MD - 05/30/2025 US KIDNEY TRANSPLANT W DOPPLER Clinical information: Kidney transplant. Comparison: 04/10/25. IMPRESSION: *Right lower quadrant renal transplant measuring 12.1 x 5.4 x 6.1 cm. *There is a peritransplant fluid collection measuring 7.1 x 5.1 x 11.9cm. *Very mild collecting system prominence. Cannot exclude minimalechogenic debris in the renal pelvis. RI-0.68 RI-0.69 RI-0.61 RENAL ART: PS-116.0cm/s ED-19.5cm/s RI-0.83 RENAL VEIN: ARMAND=20.5cm/s Electronically signed: Shekhar Samuels MD. Authorizing ProviderResult TypeResult StatusKnicole Robin MDIMSanchez US PROCEDURESFinal Result * Uric acid (05/29/2025 8:34 AM EDT) Only the most recent of2 resultswithin the time period is included. ComponentValueRef RangeTest MethodAnalysis TimePerformed AtPathologist Signature Uric Acid7.04.4 - 7.6 mg/dL05/29/2025 9:27 AM [facility] ([facility]) Specimen (Source)Anatomical Location / LateralityCollection Method / Volume Collection TimeReceived TimeBloodVenous blood specimen / UnknownArterial Line / Wjkxmcj9705/29/2025 8:34 AM EDT1 8:59 AM EDT Narrative Authorizing ProviderResult TypeResult StatusGrazyna Briseno [facility] BLOOD ORDERABLESFinal ResultPerforming OrganizationAddressCity/State/ZIP CodePhone Number [facility] ([facility]) [address] [place] [address] * Bilirubin, direct (05/29/2025 8:34 AM EDT) Only the most recent of2 resultswithin the time period is included. ComponentValueRef RangeTest MethodAnalysis TimePerformed AtPathologist Signature Bilirubin, Direct0.10 - 0.2 mg/dL05/29/2025 9:27 AM [facility] ([facility])Specimen (Source)Anatomical Location / LateralityCollection Method / VolumeCollection TimeReceived TimeBloodVenous blood specimen / UnknownArterial Line / Odhhmgw5805/29/2025 8:34 AM EDT1 8:59 AM EDT Narrative Authorizing ProviderResult TypeResult StatusHuntsman Mental Health Institutechaparro [facility] BLOOD ORDERABLESFinal ResultPerforming OrganizationAddressCity/State/ZIP CodePhone Number [facility] ([facility]) [address] [place] [address] * HBV QUANT TMA (05/16/2025 7:24 AM EDT) Only the most recent of2 resultswithin the time period is included. ComponentValueRef RangeTest MethodAnalysis TimePerformed AtPathologist Signature HBV TMA InterpNot DetectedNot Gimlfdjo56/16/2025 3:01 PM [facility] ([facility])HBV TMA Hzaonidvefty50/16/2025 3:01 PM [facility] ([facility]) Comment:Not DetectedHBV Quantitative 05/17/2025 3:01 PM [facility] ([facility])Comment:Not DetectedSpecimen (Source)Anatomical Location / Laterality Collection Method / VolumeCollection TimeReceived TimeBloodVenous blood specimen / UnknownVenipuncture / Ftwoldx2005/16/2025 7:24 AM EDT1 8:04 AM EDT Narrative [facility] ([facility]) - 05/17/2025 3:01 PM EDT The Aptima HBV Quant assay is a real-time diesel lube tech-mediated amplification (TMA) test which has a dynamic [...] or blood products. Authorizing ProviderResult TypeResult StatusGrazyna GarciaLaird Hospital MOLECULAR DIAGNOSTICS ORDERABLESFinal ResultPerforming OrganizationAddressCity/State/ZIP CodePhone Number [facility] ([facility]) [address] [place] [address] * HCV QUANTITATIVE TMA (05/16/2025 7:24 AM EDT) Only the most recent of2 resultswithin the time period is included. ComponentValueRef RangeTest MethodAnalysis TimePerformed AtPathologist Signature HCV TMA InterpNot DetectedNot Yuerzlga53/15/2025 3:27 PM [facility] ([facility])HCV Quantitative TMA05/16/2025 3:27 PM [facility] ([facility]) Comment:Not DetectedHCV Quantitative 05/16/2025 3:27 PM [facility] ([facility])Comment:Not DetectedSpecimen (Source)Anatomical Location / Laterality Collection Method / VolumeCollection TimeReceived TimeBloodVenous blood specimen / UnknownVenipuncture / Xoagwbp0605/16/2025 7:24 AM EDT1 8:04 AM EDT Narrative [facility] ([facility]) - 05/16/2025 3:27 PM EDT The Aptima HCV Quant Dx assay is a real-time diesel lube tech-mediated amplification (TMA) test which has a dynamic [...] or blood products. Authorizing ProviderResult TypeResult StatusJojazmin Briseno [facility] MOLECULAR DIAGNOSTICS ORDERABLESFinal ResultPerforming OrganizationAddressCity/State/ZIP CodePhone Number [facility]) [address] [place] [address] * HIV RNA, quantitative, TMA (05/16/2025 7:24 AM EDT) Only the most recent of2 resultswithin the time period is included. ComponentValueRef RangeTest MethodAnalysis TimePerformed AtPathologist Signature HIV-1 InterpretationNot DetectedNot Ufnjuhkq90/21/2025 7:36 AM [facility] ([facility])HIV Quantitative RNA05/22/2025 7:36 AM [facility] ([facility]) Comment:Not DetectedHIV Quantitative RNA 05/22/2025 7:36 AM [facility] ([facility])Comment:Not DetectedSpecimen (Source)Anatomical Location / LateralityCollection Method / VolumeCollection TimeReceived TimeBloodVenous blood specimen / UnknownVenipuncture / Zakybiz7005/16/2025 7:24 AM EDT1 8:04 AM EDT Narrative [facility] ([facility]) - 05/22/2025 7:36 AM EDT The Aptima HIV Quant assay is a real-time diesel lube tech-mediated amplification (TMA) test which has a dynamic [...] presence of HIV-1 infection. Authorizing ProviderResult TypeResult StatusJordchaparro Briseno [facility] BLOOD ORDERABLESFinal ResultPerforming OrganizationAddressCity/State/ZIP CodePhone Number [facility] ([facility]) [address] [place] [address] * (ABNORMAL) Manual Differential (05/16/2025 7:24 AM EDT)ComponentValueRef Range Test MethodAnalysis TimePerformed AtPathologist SignatureImmature Granulocytes %0.70.0 - 1.0 %05/16/2025 9:42 AM [facility] ([facility])Neutrophils Kccibrtm38.1(H)1.6 - 7.6 10*3/uL05/16/2025 9:42 AM [facility] ([facility])Lymphocytes Absolute1.11(L)1.20 - 4.00 10*3/uL05/16/2025 9:42 AM EDT [facility] ([facility])Monocytes Absolute1.06(H)0.10 - 1.00 10*3/uL 05/16/2025 9:42 AM [facility] ([facility])Eosinophils Absolute0.000.00 - 0.50 10*3/uL05/16/2025 9:42 AM [facility] ([facility])Basophils Absolute 0.020.00 - 0.20 10*3/uL05/16/2025 9:42 AM [facility] ([facility]) Neutrophils %85.9(H)40.0 - 72.0 %05/16/2025 9:42 AM [facility] ([facility])Lymphocytes %6.8(L)20.0 - 45.0 %05/16/2025 9:42 AM [facility] ([facility])Monocytes %6.55.0 - 12.0 %05/16/2025 9:42 AM [facility] ([facility])Eosinophils %0.00.0 - 6.0 %05/16/2025 9:42 AM [facility] ([facility])Basophils %0.10.0 - 1.0 %05/16/2025 9:42 AM [facility] ([facility])Immature Granulocytes Absolute0.110.00 - 0.20 10*3/uL05/16/2025 9:42 AM [facility] ([facility])Specimen (Source)Anatomical Location / LateralityCollection Method / VolumeCollection TimeReceived TimeBloodVenous blood specimen / UnknownVenipuncture / Cubrblb9105/16/2025 7:24 AM EDT1 8:04 AM EDT Narrative Authorizing ProviderResult TypeResult StatusJojazmin Briseno [facility] B[facility] ORDERABLESFinal ResultPerforming OrganizationAddressCity/State/ZIP CodePhone Number [facility] ([facility]) [address] [place] [address] * Histology - tissue exam (05/11/2025 3:30 PM EDT)ComponentValueRef RangeTest MethodAnalysis TimePerformed AtPathologist SignatureCase ReportSurgical Pathology ?Case: [id number] ? Authorizing Provider: ??Ghazal Tan MD ?Collected: ? 05/11/2025 1530 ? Ordering Location: ? [facility] Main Operating Room ?? Received: ?05/14/2025 0723 ? Pathologist: ? Nicole Womack MD ? Specimen: ?Prostate, PROSTATE CHIPS ? 05/18/2025 10:45 AM [facility])Final DiagnosisA. Prostate, transurethral resection: - Glandular and stromal hyperplasia. - Benign urothelium with von Brunn's nests. - Acute and chronic inflammation. 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 Prostate. Received in formalin labeled Christal Suh, prostate chips , are 7 g of diaz rubbery soft tissue chips, 5 x 4 x 1 cm in aggregate. The specimen is entirely submitted in 8 cassettes. Belen Parsons, Pathologists' Superintendent [facility] 05/18/2025 10:45 AM [facility] ([facility])Microscopic Description Microscopic examination performed.05/18/2025 10:45 AM [facility] ([facility])Specimen (Source)Anatomical Location / LateralityCollection Method / VolumeCollection TimeReceived TimeTissueProstate / Vptxkla5005/11/2025 3:30 PM EDT 05/14/2025 7:23 AM EDTComment:Pre-op diagnosis: BPH with obstruction/lower urinary tract symptoms [N40.1, N13.8] Narrative Authorizing ProviderResult TypeResult StatusGhazal FAJARDO PATHOLOGY ORDERABLESFinal ResultPerforming OrganizationAddressCity/State/ZIP CodePhone Number [facility] ([facility]) [address] [place] [address] * DC AN ELECTIVE ENDOTRACHEAL AIRWAY (05/11/2025 2:30 PM EDT) Narrative Annalee Manzanares CAA - 05/11/2025 2:30 PM EDT MILENA Nava 05/11/2025 2:41 PM Airway Date/Time: 05/11/2025 2:30 PM Reason: elective Airway not difficult General Information and Staff Patient location during procedure: OR Anesthesiologist: Iam Blair MD Resident/NEHEMIAH/CAA: MILENA Nava Performed: resident/NEHEMIAH/MILENA Patient Condition Indications for airway management: anesthesia Sedation level: deep Final Airway Details Preoxygenated: yes Final airway type: endotracheal airway Successful airway: ETT Cuffed: yes Successful intubation technique: video laryngoscopy Adjuncts used in placement: intubating stylet Endotracheal tube insertion site: oral Blade: Julianna Blade size: #3 ETT size (mm): 7.5 Cormack-Lehane Classification: grade I - full view of glottis Placement verified by: chest auscultation and capnometry Measured from: lips ETT to lips (cm): 22 Number of attempts at approach: 1 Number of other approaches attempted: 0 Authorizing ProviderResult TypeResult StatusAndrew Rossy MDANESTHESIA ORDERABLESFinal Result * CARDIAC EVENT MONITOR - NO CHARGES (05/02/2025 10:49 AM EDT)Anatomical Region LateralityModalityElectrocardiographySpecimen (Source)Anatomical Location / LateralityCollection Method / VolumeCollection TimeReceived Time05/02/2025 10:01 AM EDT Narrative 06/03/2025 1:53 PM EST 1 [facility] Heart Station [address] [place] [address] [phone] (fax) Event Recorder-[facility] Name: CHRISTAL SUH Study Date: 05/02/2025 10:01 AM Date of : 1955 Location: [facility] Height: Age: 69 year(s) Patient Room: 4120 Weight: Gender: Male Patient Status: InPt BSA: Indication: Dizziness, Transient ischemic attack Examination: Event Recorder Rhythm: Normal Sinus Rhythm, Sinus Bradycardia , Sinus Tachycardia, Premature ventricular complexes, Ventricular Tachycardia, Supraventricular Tachycardia, Premature atrial complexes Start of Examination: 05/02/2025 ??Recording Duration: 30 days Findings: Primary rhythm is [...] 21:47 day 7 Procedure Staff Reading Group: [facility] Ordering Physician: SERA SHIN ??Job Tracer: Edna Askew Procedure Note Dulce Jovel MD - 06/03/2025 1 [facility] Heart Station [address] [place] [address] [phone] (fax) Event Recorder-[facility] Name: CHRISTAL SUH Study Date: 05/02/2025 10:01 AM Date of : 1955 Location: [facility] Height: Age: 69 year(s) Patient Room: [facility] Weight: Gender: Male Patient Status: InPt BSA: [...] 21:47 day 7 Procedure Staff Reading Group: [facility] Ordering Physician: SERA SHIN Job Tracer: Edna Flaminio Authorizing ProviderResult TypeResult StatusSera NARAYAN CARDIAC SERVICES PROCEDURESFinal Result * Gold Top (05/02/2025 3:40 AM EDT)ComponentValueRef RangeTest MethodAnalysis TimePerformed AtPathologist SignatureExtra TubeHold for add-ons.05/02/2025 7:01 AM EDTREH[facility] ([facility])Comment:Auto resulted.Specimen (Source) Anatomical Location / LateralityCollection Method / VolumeCollection Time Received TimeBloodVenous blood specimen / Hrkkser0205/02/2025 3:40 AM EDT 05/02/2025 5:05 AM EDT Narrative Authorizing ProviderResult TypeResult Jalen FAJARDO BLOOD ORDERABLES Final ResultPerforming OrganizationAddressCity/State/ZIP CodePhone Number [facility] ([facility]) [address] [place] [address] * Cystoscopy and stent removal (05/01/2025 4:49 [...] After removal of the stent, a 14F rashid catheter was inserted. Procedure supervised by chief resident, Dr Smith. Authorizing ProviderResult TypeResult Jalen POOL PROCEDURE ORDERABLESFinal Result * (ABNORMAL) Device Culture (05/01/2025 3:45 PM EDT)ComponentValueRef RangeTest MethodAnalysis TimePerformed AtPathologist SignatureCulture>15 CFU Staphylococcus epidermidis(A) JES 05/08/2025 2:49 PM EDTREHOBOTH [facility] ([place])Comment: Presumptive Identification 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 Organism should be considered resistant to Clindamycin despite JES. Culture>15 CFU Pseudomonas aeruginosa(A) JES 05/08/2025 2:49 PM EDTREHOBOTH [facility] ([place])Comment: Susceptibility sent out to [facility] on 05/08/25 Please see [id number] for susceptibility Specimen (Source)Anatomical Location / LateralityCollection Method / Volume Collection TimeReceived TimeForeign Body (Stent)Non-blood Collection / Unknown 05/01/2025 3:45 PM EDT05/01/2025 3:59 PM EDT Narrative OrganismAntibioticMethodSusceptibilityStaphylococcus epidermidisClindamycinMIC <=0.5 ug/ml: Resistant Staphylococcus epidermidisOxacillinMIC >1 ug/ml: Resistant Staphylococcus epidermidisTetracyclineMIC >8 ug/ml: Resistant Staphylococcus epidermidisVancomycinMIC 1 ug/ml: Susceptible Authorizing ProviderResult TypeResult StatusKunal Lobito FAJARDO MICROBIOLOGY - GENERAL ORDERABLESFinal ResultPerforming OrganizationAddressCity/State/ZIP Code Phone Number [facility] ([place]) [address] [place] [address] * Nonfermenter susceptibility (05/01/2025 12:00 PM EDT)ComponentValueRef Range Test MethodAnalysis TimePerformed AtPathologist SignatureSusceptibility, NonfermenterSEE NOTE05/12/2025 4:08 PM EDTAR[facility] ([facility])Comment: Pseudomonas aeruginosa Identification by MALDI-TOF This test was developed and its performance characteristics determined by [facility] [employer]. It has not been cleared or approved [...] 16/2 Suscept Tobramycin <=0.25 Suscept Performed By: [facility] [address] [place] [address] Underground [employer] Superintendent: Julián Wooten MD, PhD CLIA Number: [id number] Specimen (Source)Anatomical Location / LateralityCollection Method / Volume Collection TimeReceived TimeOther (Stent)Non-blood Collection / Unknown 05/01/2025 12:00 PM EDT1 12:01 PM EDT Narrative Authorizing ProviderResult TypeResult StatusKunal Lobito FAJARDO MICROBIOLOGY - GENERAL ORDERABLESFinal ResultPerforming OrganizationAddressCity/State/ZIP Code Phone Number [facility] [phone] * Aerobic Organism Identification (05/01/2025 12:00 PM EDT)ComponentValueRef RangeTest MethodAnalysis TimePerformed AtPathologist SignatureOrganism Identification, AerobicSEE NOTE05/11/2025 12:05 PM EDTARUP [facility] ([place]) Comment: Pseudomonas aeruginosa Identification by MALDI-TOF This test was developed and its performance characteristics determined by [facility]. It has not been cleared or approved by the U.S. Food and Drug Administration. This test was performed in a CLIA-certified laboratory and is intended for clinical purposes. Performed By: [facility] [address] [place], [place] [id number] [employer] Superintendent: Julián Wooten MD, PhD CLIA Number: [id number] Specimen (Source)Anatomical Location / LateralityCollection Method / Volume Collection TimeReceived TimeOther (Stent)Non-blood Collection / Unknown 05/01/2025 12:00 PM EDT1 12:01 PM EDT Narrative Authorizing ProviderResult TypeResult StatusKunal Lobito FAJARDO MICROBIOLOGY - GENERAL ORDERABLESFinal ResultPerforming OrganizationAddressCity/State/ZIP Code Phone Number [facility] ([place]) [address] [place] [address] * Vascular US carotid artery duplex bilateral [...] Narrative 04/30/2025 4:04 PM EDT 1 1 [facility] Heart Station [address] [place] [address] [phone] (fax) Echocardiogram-[facility] Name: CHRISTAL SUH Study Date: 04/30/2025 02:00 PM B/P: 144 mmHg/52 mmHg HR: 70 bpm Date of : 1955 Location: [facility] Height: 72 in. Age: 69 year(s) Patient [...] minimal pericardial effusion. Procedure Staff Reading Group: [facility] Referring Physician: GHAZAL CEVALLOS ??Sighter: BILL Cotton ??Ordering Physician: CORAL SCHWARTZ ?? Procedure Note Efren Moy MD - 04/30/2025 1 1 [facility] Heart Station [address] [place] [address] [phone] (fax) Echocardiogram-[facility] Name: CHRISTAL SUH Study Date: 04/30/2025 02:00 PM B/P: 144 mmHg/52 mmHg HR: 70 bpm Date of : 1955 Location: [facility] Height: 72 in. Age: 69 year(s) Patient [...] minimal pericardial effusion. Procedure Staff Reading Group: [facility] Referring Physician: GHAZAL CEVALLOS Sighter: BILL Cotton Ordering Physician: CORAL SCHWARTZ Authorizing ProviderResult TypeResult StatusSydario Schwartz [facility]ED[facility] Final Result * Hemoglobin A1c (04/29/2025 4:14 AM EDT)ComponentValueRef RangeTest Method Analysis TimePerformed AtPathologist SignatureHemoglobin A1C4.64.0 - 6.0 % 04/29/2025 10:37 AM [facility] ([place])Estimated Average Klaunxx87 mg/dL04/29/2025 10:37 AM [facility] ([facility])Specimen (Source) Anatomical Location / LateralityCollection Method / VolumeCollection Time Received TimeBloodVenous blood specimen / UnknownVenipuncture / Unknown 04/29/2025 4:14 AM EDT04/29/2025 5:01 AM EDT Narrative Authorizing ProviderResult TypeResult StatusSydario FAJARDO BLOOD ORDERABLES Final ResultPerforming OrganizationAddressCity/State/ZIP CodePhone Number [facility] ([place]) [address] [place] [address] * Lipid panel (04/29/2025 4:14 AM EDT)ComponentValueRef RangeTest MethodAnalysis TimePerformed AtPathologist MqxtrgqxeAugecjmidxctd12<150 mg/dL04/29/2025 5:59 AM [facility] ([facility])Comment: TRIGLYCERIDE REFERENCE RANGE: 20 YEARS AND OLDER ?CARDIOVASCULAR RISK LESS THAN 150 mg/dL ? LOW RISK 150 TO 199 mg/dL ?BORDERLINE RISK 200 mg/dL AND GREATER ? HIGH RISK Mcclvgtklsi868237 - 200 mg/dL04/29/2025 5:59 AM [facility] ([facility])LDL Qtmieqhajq823 - 160 mg/dL04/29/2025 5:59 AM [facility] ([facility])LTF7830 - 92 mg/dL04/29/2025 5:59 AM [facility] ([facility])Non HDL Cmodgojsahz052 04/29/2025 5:59 AM [facility] ([facility])Total VLDL-C160 - 40 mg/dL 04/29/2025 5:59 AM [facility] ([facility])Cholesterol/HDL Ratio3.2mg/dL 04/29/2025 5:59 AM [facility] ([facility])Specimen (Source)Anatomical Location / LateralityCollection Method / VolumeCollection TimeReceived TimeBlood Venous blood specimen / UnknownVenipuncture / Cdkmzlo5604/29/2025 4:14 AM EDT 04/29/2025 5:01 AM EDT Narrative Authorizing ProviderResult TypeResult StatusSyed Dayton Schwartz MDLAB BLOOD ORDERABLES Final ResultPerforming OrganizationAddressCity/State/ZIP CodePhone Number [facility] ([facility]) [address] [place] [address] * MR brain w and wo contrast (04/28/2025 5:50 PM EDT)Anatomical RegionLaterality ModalityBrainMagnetic ResonanceSpecimen (Source)Anatomical Location / LateralityCollection Method / VolumeCollection TimeReceived Time04/28/2025 5:54 PM EDT Impressions 04/28/2025 10:56 PM EDT Ischemic 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 THIS REPORT CONTAINS A CRITICAL RESULT AND/OR RECOMMENDATION WHICH REQUIRES THE ATTENTION OF THE LICENSED CAREGIVER RESPONSIBLE FOR THIS PATIENT. KENNETH Chen DO, PERSONALLY DISCUSSED THE RESULTS WITH FAITH [...] on 04/28/2025. Approved by:Kenneth Cabezas04/28/2025 6:14 PM. Ángela Chen,have reviewed the image(s) and agree with the findingsin this report. Electronically signed: Ángela Liz. Authorizing ProviderResult TypeResult StatusKnicole Robin MDIMG MRI PROCEDURES Final Result * (ABNORMAL) POCT occult blood stool manually resulted (04/05/2025 5:12 PM EDT) ComponentValueRef RangeTest MethodAnalysis TimePerformed AtPathologist SignatureFecal Occult BloodPositiveQC Pass/FailPassedQC LOT #642QC Expiration Date03/28Specimen (Source)Anatomical Location / LateralityCollection Method / VolumeCollection TimeReceived YwdaZmmmy40/04/2025 5:12 PM EDT Narrative Authorizing ProviderResult TypeResult StatusRolanda TurciosOINT OF CARE TEST ENTER/EDIT ORDERABLESFinal Result from Last 3 Months or Most Recently Relevant to Health Maintenance Additional Health Concerns InfectionOnset DateLast IndicatedC.difficile Comment:External result, treatment incomplete /OVID-19 (confirmed) Comment:Tested positive last 07/08/2025 at [facility]. Patient is immune compromised /MDR [id number] Insurance Advance Directives * Full Code (Latest Code Status on File) Date ActivatedDate YrxfxgnzxbjTdwiguov58/12/2025 8:11 PM07/24/2025 6:53 PM * Full Code Date ActivatedDate BbzbvwufpflObykbnze66/28/2025 4:15 PM06/15/2025 4:51 PM * Full Code Date ActivatedDate QirizoraoubPuqtrjew78/10/2025 3:47 PM10 9:11 PM * Full Code Date ActivatedDate InactivatedComments04/28/2025 5:50 PM10 1:31 PM * Full Code Date ActivatedDate InactivatedComments04/05/2025 4:59 PM04/11/2025 7:39 PM Care Teams Team MemberRelationshipSpecialtyStart DateEnd Date Ghazal Cevallos MD [address] [place] [address], [address] [place] [address] PCP - GeneralInternal Medicine09/21/24 Ghazal Tan MD [address] [place] [phone] Consulting PhysicianUrology04/07/25
[2025-07-27 15:32] LABS: Hematocrit 26.1 % (42.0-54.0); Hemoglobin 8.4 g/dL (14.0-18.0); Mean Corpuscular HGB Conc 32.2 g/dL (29.9-35.2); Mean Corpuscular Hemoglobin 33.5 pg (25.9-34.0); Mean Corpuscular Volume 104.0 fL (80.0-94.0); Platelet Count 319 10^3/uL (150-450); Red Blood Count 2.51 10^6/uL (4.70-6.10); White Blood Count 15.8 10^3/uL (4.0-11.0)
[2025-07-27 15:43] LABS: Band Neutrophils Absolute 0.3 10^3/uL (0.0-0.3); Basophils Abs Manual 0.00 10^3/uL (0.00-0.10); Basophils Percent Manual 0.0 % (0.2-2.0); Eosinophils Absolute Manual 0.00 10^3/uL (0.00-0.70); Eosinophils Percent Manual 0.0 % (0.9-7.0); Lymphocytes Absolute Manual 1.26 10^3/uL (1.20-3.80); Lymphocytes Percent Manual 8.0 % (20.5-60.0); Monocytes Absolute Manual 1.73 10^3/uL (0.30-0.80); Monocytes Percent Manual 11.0 % (1.7-12.0); Segmented Neut Absolute Manual 12.48 10^3/uL (1.4-6.5); Segmented Neutrophils % Manual 79.0 (43.0-75.0)
[2025-07-27 15:45] LABS: Anisocytosis 2+; Macrocytosis 2+
[2025-07-27 15:55] LABS: Anion Gap 10.1; Blood Urea Nitrogen 32.0 mg/dL (7.0-18.0); Calcium 8.1 mg/dL (8.5-10.1); Carbon Dioxide 26.3 mmol/L (21.0-32.0); Chloride 109 mmol/L (98-107); Estimated GFR (African America >60 (>=60 mL/min/1.73m^2); Estimated GFR (Non-African Ame 53 (>=60 mL/min/1.73m^2); Glucose 139 mg/dL (74-106); Potassium 4.4 mmol/L (3.5-5.1); Sodium 141 mmol/L (136-145)
== END 2025-07-27 15:25 | disposition home or self-care (01) ==
LOC: LAB 15:24
PROVIDERS: PCP Internal Medicine; Visit Provider Nurse Practitioner Family
DX: L03.119 Cellulitis of unspecified part of limb (principal)
CPT/HCPCS: 36415; 80048; 85007; 85027

== ENCOUNTER 2025-07-31 15:03 | Emergency (ER) | payer MEDICARE, SELFPAY ==
--- OUTSIDE RECORDS SUMMARY | 2024-06-12 09:00 | XMS_ITS ---
Author Organization [facility] in [place] Address [address] [place] [address] Care Team Providers Care Medical Assistant Internal Medicine Name Role Phone Abebe Stewart MD Primary Care Provider Abebe Nazario Unavailable [phone] REASON FOR VISIT 2 month ov Encounters Encounter Location Date Provider Diagnosis [facility] Nephrology [place] [address] [place] [address] 06/12/2024 Abebe Tvoar Plan Of Treatment No Information Progress Notes * Alberto WALLER LDOB:[birth year] (70 yo M)Acc No.[id number]:06/12/2024 UNLOCKED PROGRESS NOTE Progress Note Patient: Alberto BUSTAMANTE :LisetAbebe Tovar MDDOB:1955???Age:68 Y ???Sex:MaleDate:06/12/2024hone:[phone]:[facility] [place], [place]Puh:Abebe Stewart MD Subjective: * Chief Complaints: * 1 . 2 month ov. * Medical History: Objective: * Vitals: Assessment: Plan: * Treatment: * * Electronic signature of Abebe Tovar MD, [id number] on 07/31/2025 at 03:40 PM EST Sign off status: PendingVisit Status:?R/S (Rescheduled) * Provider: Anthony Tovar MD Date: 1 08/12/2023 Generated for Printing/Faxing/eTransmitting on:?07/31/2025 03:40 PM EST
--- OUTSIDE RECORDS SUMMARY | 2024-08-14 11:20 | XMS_ITS ---
Author Organization The [facility] in [place] Address [address] [place] [address] Care Team Providers Care Front Office Representative Name Role Phone Pat JOSEPH, Abebe Primary Care Provider Abebe Nazario [facility] [phone] Encounters Encounter Location Date Provider Diagnosis [facility] Nephrology [place] [address] [place] [address] 08/14/2024 Abebe Tovar Plan Of Treatment No Information Progress Notes * Alberto WALLER LDOB:[birth year] (70 yo M)Acc No.[id number]:08/14/2024 UNLOCKED PROGRESS NOTE Progress Note Patient: Alberto BUSTAMANTE :?Abebe Tovar MDDOB:1955???Age:69 Y ???Sex:MaleDate:08/14/2024Phone:[phone]:[address] [place], [place]-[address]Buy:Abebe Stewart MD Subjective: * Chief Complaints: * * Medical History: Objective: * Vitals: Assessment: Plan: * Treatment: * * Electronic signature of Abebe Tovar MD, [id number] on 07/31/2025 at 03:40 PM EST Sign off status: PendingVisit Status:?CANC (Cancelled) * Provider: Anthony Tovar MD Date: 0 08/14/2024 Generated for Printing/Faxing/eTransmitting on:?07/31/2025 03:40 PM EST
--- OUTSIDE RECORDS SUMMARY | 2025-07-13 18:05 | XMS_ITS | Encounter Summary ---
Author Organization [facility] Address [address] [place] [address] Care Team Providers Care Museum Service Scheduler Name Role Phone Abebe Stewart MD Primary Care Provider [phone] Abebe Tan MD Unavailable Reason for Visit * Auth/Cert (Routine)SpecialtyDiagnoses / ProceduresReferred By ContactReferred To Contact Diagnoses S/P kidney transplant Failure to Thrive Procedures NO CODED SERVICES Jayjay Robin MD [address] [place] [phone] Phone: tel: fax: [facility] [address] [place] [address] Phone: tel: fax: Referral IDStatusReasonStart DateExpiration DateVisits RequestedVisits [id number] Encounter Details DateTypeDepartmentCare Team (Latest Contact Info)Retwdxkogep16/12/2025 6:05 PM EST - 07/24/2025 4:53 PM ESTHospital Encounter [facility] [address] [place] [address] Jayjay Robin MD [address] [place] [phone] S/P kidney transplant (Primary Dx); Immunosuppressive management encounter following kidney transplant; Encounter for aftercare following kidney transplant; Hypocalcemia; Vitamin D deficiency; Transplant recipient; C. difficile colitis; Decrease in appetite; Immunosuppression; Dehydration Discharge Disposition: [facility]way Facility (03) Social History Tobacco UseTypesPacks/DayYears UsedDateSmoking Tobacco: [id number] - 1974Passive Smoke Exposure: PastSmokeless Tobacco: NeverAlcohol UseStandard Drinks/WeekCommentsYes0 (1 standard drink = 0.6 oz pure alcohol)rareSocial Connection and Isolation PanelAnswerDate RecordedIn a typical week, how many times do you talk on the phone with family, friends, or neighbors?More than three times a week04/05/2025How often do you get together with friends or relatives?More than three times a week04/05/2025How often do you attend restorationist or islam services?Never04/05/2025Do you belong to any clubs or organizations such as restorationist groups, unions, fraternal or athletic groups, or school groups?No 04/05/2025How often do you attend meetings of the clubs or organizations you belong to?Never04/05/2025re you , , , , never , or living with a partner?Idutlxlgp82/04/2025UDIT-CAnswerDate Recorded Q1: How often do you have a drink containing alcohol?Never04/05/2025Q2: How many drinks containing alcohol do you have on a typical day when you are drinking? Patient does not drink04/05/2025Q3: How often do you have six or more drinks on one occasion?Never04/05/2025PHQ-2AnswerDate RecordedPatient Health Questionnaire-2 [facility] [place] [facility] - Occupational Stress QuestionnaireAnswerDate RecordedDo you feel stress - tense, restless, nervous, or anxious, or unable to sleep at night because yourmind is troubled all the time - these days?Only a nktiht9504/05/2025Humiliation, Afraid, Rape, and Kick questionnaireAnswerDate RecordedWithin the last year, have you been afraid of your partner or ex-partner?No07/13/2025Emotionally AbusedNot on file07/13/2025Physically AbusedNot on file07/13/2025Sexually AbusedNot on file 07/13/2025Overall Financial Resource Strain (CARDIA)AnswerDate RecordedHow hard is it for you to pay for the very basics like food, housing, medical care, and heating?Not hard at all07/13/2025HC UtilitiesAnswerDate RecordedIn the past 12 months has the [employer], gas, oil, or water Visys threatened to shut off services in your home?No07/13/2025TransportationAnswerDate RecordedIn the past 12 months, has lack of transportation kept you from medical appointments or from getting medications?No07/13/2025In the past 12 months, has lack of transportation kept you from meetings, work, or from getting things needed for daily living?No07/13/2025Housing Stability Vital SignAnswerDate RecordedIn the last 12 months, was there a time when you were not able to pay the mortgage or rent on time?No07/13/2025In the past 12 months, how many times have you moved where you were living?t any time in the past 12 months, were you homeless or living in a detention (including now)?No07/13/2025Hunger Vital Sign AnswerDate RecordedWithin the past 12 months, you worried that your food would run out before you got the money to buymore.Never true07/13/2025Within the past 12 months, the food you bought just didn't last and you didn't have money to get more.Never true07/13/2025Sex and Gender InformationValueDate RecordedSex Assigned at OcgsyWwdf19/20/2025 6:43 AM ESTLegal YojQzta2301/29/2022 12:45 AM EDT Gender DvdglrumSipi14/20/2025 7:43 AM ESTSexual OrientationHeterosexual or Papkfpcb87/20/2025 7:43 AM ESTdocumented as of this encounter Last Filed Vital Signs Vital SignReadingTime TakenCommentsBlood Ohlkyvtn562/8507/24/2025 9:11 AM EST Ptvwj019107/24/2025 9:11 AM IHBTnugoshczvz71.9 ??C (98.4 ??F)07/24/2025 9:11 AM ESTRespiratory Qqxj939209/24/2024 9:11 AM ESTOxygen Fztkzqggns54%07/24/2025 9:11 AM ESTInhaled Oxygen Concentration--Tabjro95.5 kg (188 lb 7.9 oz)07/24/2025 4:21 AM EYOSrhkpm325.4 cm (6' 0.99 )07/13/2025 8:36 PM ESTBody Mass Index24.87 07/13/2025 8:36 PM ESTdocumented in this encounter Functional Status * Suicidal IdeationQuestionAnswerDate of AssessmentAuthor1. Wish to be (Lifetime)No07/13/2025 9:05 PM Adrienne Simons RN2. Non-Specific Active Suicidal Thoughts (Lifetime)No07/13/2025 9:05 PM Adrienne Simons RN documented as of this encounter Discharge Summaries * Grazyna Briseno CNP - 07/24/2025 11:28 AM EST Admission Admitted 07/13/2025 for Failure to Thrive Discharge Diagnosis Covid 19 infection C-diff diarrhea Fevers Severe PCM Discharge Disposition [facility]way Facility (03) Discharge Medications Your medication list START taking these medications Instructions Last Dose Given Next Dose Due cholecalciferol 5,000 Units tablet Commonly known as: D3-5 Take 1 tablet (5,000 Units) by mouth in the morning. fidaxomicin 200 mg tablet Commonly known as: Dificid Take 1 tablet (200 mg) by mouth two times daily for 10 days. lactated Ringer's infusion Please administer 1L of Lactated Ringers intravenously through midline PICC every other day. 1L bolus to be administered over 4 hours at 250ml/hr. megestrol 400 mg/10 mL (10 mL) suspension Commonly known as: Megace Take 20 mL (800 mg) by mouth in the morning. sodium bicarbonate 650 mg tablet Take 2 tablets (1,300 mg) by mouth two times daily. tacrolimus 1 mg capsule Commonly known as: Prograf Replaces: tacrolimus ER 4 mg tablet ER Take 2 capsules (2 mg) by mouth two times daily for 14 days. CHANGE how you take these medications Instructions Last Dose Given Next Dose Due predniSONE 10 mg tablet Commonly known as: Deltasone What changed: how much to take Take 0.5 tablets (5 mg) by mouth in the morning. CONTINUE taking these medications Instructions Last Dose Given Next Dose Due acetaminophen 325 mg tablet Commonly known as: Tylenol calcium carbonate 200 mg calcium (500 mg) chewable tablet Commonly known as: Tums Chew 2 tablets (1,000 mg) two times daily. Without food calcium carbonate-vitamin D3 500 mg-5 mcg (200 unit) tablet Take 1 tablet by mouth at bedtime. carvedilol 25 mg tablet Commonly known as: Coreg docusate sodium 100 mg capsule Commonly known as: Colace famotidine 20 mg tablet Commonly known as: Pepcid Take 1 tablet (20 mg) by mouth at bedtime. finasteride 5 mg tablet Commonly known as: Proscar Take 1 tablet (5 mg) by mouth in the morning. Do not crush, chew, or split. folic acid 1 mg tablet Commonly known as: Folvite Take 1 tablet (1 mg) by mouth in the morning for 94 doses. guaiFENesin 600 mg 12 hr tablet Commonly known as: Mucinex hydrALAZINE 100 mg tablet Commonly known as: Apresoline Take 1 tablet (100 mg) by mouth three times daily. ipratropium-albuteroL 0.5-2.5 mg/3 mL nebulizer solution Commonly known as: Duo-Neb magnesium glycinate 100 mg magnesium capsule Take 3 capsules (300 mg) by mouth three times daily. NIFEdipine XL 30 mg 24 hr tablet Commonly known as: Procardia XL Take 1 tablet (30 mg) by mouth in the morning. Do not crush, chew, or split. nystatin 100,000 unit/mL suspension Commonly known as: Mycostatin Take 5 mL (500,000 Units) by mouth four times daily. Swish and swallow ondansetron 4 mg tablet Commonly known as: Zofran pantoprazole 40 mg EC tablet Commonly known as: ProtoNix Take 1 tablet (40 mg) by mouth before breakfast. Do not crush, chew, or split. sod phos di, mono-K phos mono tablet Commonly known as: K Phos Neutral Take 1 tablet by mouth two times daily. sulfamethoxazole-trimethoprim 800-160 mg tablet Commonly known as: Bactrim DS Take 1 tablet by mouth 3 (three) times a week. On Wednesday, Wednesday, and Wednesday tamsulosin 0.4 mg 24 hr capsule Commonly known as: Flomax Take 2 capsules (0.8 mg) by mouth in the morning. STOP taking these medications azaTHIOprine 75 mg tablet Commonly known as: Imuran cephalexin 500 mg capsule Commonly known as: Keflex tacrolimus ER 4 mg tablet ER Commonly known as: Envarsus XR Replaced by: tacrolimus 1 mg capsule valGANciclovir 450 mg tablet Commonly known as: Valcyte vancomycin 125 mg capsule Commonly known as: Vancocin Where to Get Your Medications These medications were sent to [facility] - [place], [place] - [address] [place] [address] [place] [address], [facility] [address] calcium carbonate-vitamin D3 500 mg-5 mcg (200 unit) tablet megestrol 400 mg/10 mL (10 mL) suspension tacrolimus 1 mg capsule You can get these medications from any pharmacy Bring a paper prescription for each of these medications lactated Ringer's infusion Information about where to get these medications is not yet available Ask your nurse or doctor about these medications calcium carbonate 200 mg calcium (500 mg) chewable tablet cholecalciferol 5,000 Units tablet fidaxomicin 200 mg tablet predniSONE 10 mg tablet sodium bicarbonate 650 mg tablet Activity Normal activity as tolerated No showering restrictions Diet Continue on the same type of diet and foods as you were eating before your admission. Drink plenty of water., Please drink boost nutrition drinks with every meal., Please drink bottled water if available Allergies Shellfish derived, Amlodipine, and Fish containing products Hospital Course Patient was admitted on 07/14 with the following HPI. HPI: Christal Suh is a 69 y.o. year old male with a PMH of ESRD 2/2 HTN now s/p DDRT on 03/31/25 followed by TURP on 05/11/25. He is admitted with FTT and reportedly COVID but no sifnificant symptoms. History of recent C Diff on oral vanc. Hx of recent admit for a pseudomonas UTI from 05/29 to 06/15. Patient was seen by infectious disease and was continued on oral vancomycin. Patient was initially asymptomatic from COVID but became short of breath on 07/15 and rapid response was called. Patient was giving albuterol treatments and placed on bipap for a short period of time. Patient did require oxygen for a couple days following this event but overall improved. Patient was severely malnourished. Started on megace and given boost oral supplements. Patient began to increase oral intake through hospital and would like to continue similar regimen at nursing facility. Patient's diarrhea worsenedand he was switched to dificid which did show improvement over a couple of days. On 07/20 patient had a fever and WBC spiked, urine cutlure showed pseudomonas, patient was asymptomatic and there was a concern for non-infectious bacteruria, but was started on empiric antibiotics. Patient remained afebrile and wbc decreased after the start of antibiotics. ID opted to treated with minimal antibiotics due to c-diff infection. Patient received 4 days of daptomycin and was discharged on 10 days of dificid. Patient discharged to nursing facility in good stable condition with stable kidney function. Patient was prescribed IV hydration every other day at facility to promote adequate hydration. Immunosuppression on discharge: prograf 2mg twice daily (switched from envarsus due to facility pharmacy availability, can switch back to envarsus upon discharge from facility.) and prednisone 10mg daily. Imuran currently on hold due to frequent infections. Patient to follow up in transplant clinic on 08/06. Pertinent Physical Exam At Time of Discharge Physical Exam Constitutional: Appearance: Normal appearance. HENT: Head: Normocephalic. Mouth/Throat: Mouth: Mucous membranes are moist. Eyes: Extraocular Movements: Extraocular movements intact. Pupils: Pupils are equal, round, and reactive to light. Cardiovascular: Rate and Rhythm: Normal rate and regular rhythm. Pulses: Normal pulses. Pulmonary: Effort: Pulmonary effort is normal. Abdominal: Palpations: Abdomen is soft. Neurological: General: No focal deficit present. Mental Status: He is alert and oriented to person, place, and time. Lab Results Labs Reviewed SARS-COV-2 PCR - Abnormal Result Value SARS-CoV-2 PCR Positive (*) Narrative: Testing methodology utilizes isothermal nucleic acid amplification technology for the differential and qualitative detection of SARS-CoV-2 viral nucleic acids. URINE CULTURE, ROUTINE - Abnormal Urine Culture >100,000 CFU/Ml Pseudomonas aeruginosa (*) URINE CULTURE, ROUTINE - Abnormal Urine Culture >100,000 CFU/Ml Pseudomonas aeruginosa MDRO (*) CBC - Abnormal Auto WBC 12.69 (*) RBC 2.80 (*) Hemoglobin 9.2 (*) Hematocrit 28.2 (*) MCV 100.7 (*) MCH 32.9 MCHC 32.6 RDW 16.5 (*) Platelets 186 COMPREHENSIVE METABOLIC PANEL - Abnormal Sodium 138 Potassium 4.6 Chloride 109 (*) CO2 24 Anion Gap 10 BUN 22 Creatinine 1.26 BUN/Creatinine Ratio 17.5 Glucose 163 (*) Calcium 7.4 (*) AST 14 ALT (SGPT) 13 Alkaline Phosphatase 100 Total Protein 4.6 (*) Albumin 2.5 (*) Total Bilirubin 0.2 (*) eGFR 61.4 MAGNESIUM - Abnormal Magnesium 1.7 (*) CBC - Abnormal Auto WBC 10.57 RBC 2.29 (*) Hemoglobin 7.8 (*) Hematocrit 23.5 (*) MCV 102.6 (*) MCH 34.1 (*) MCHC 33.2 RDW 16.6 (*) Platelets 162 COMPREHENSIVE METABOLIC PANEL - Abnormal Sodium 139 Potassium 4.4 Chloride 109 (*) CO2 21 Anion Gap 13 BUN 21 Creatinine 1.19 BUN/Creatinine Ratio 17.6 Glucose 148 (*) Calcium 7.7 (*) AST 10 (*) ALT (SGPT) 9 Alkaline Phosphatase 70 Total Protein 4.7 (*) Albumin 3.1 (*) Total Bilirubin 0.3 eGFR 65.7 MAGNESIUM - Abnormal Magnesium 1.7 (*) CBC - Abnormal Auto WBC 10.32 RBC 2.03 (*) Hemoglobin 6.9 (*) Hematocrit 20.8 (*) MCV 102.5 (*) MCH 34.0 (*) MCHC 33.2 RDW 16.7 (*) Platelets 152 COMPREHENSIVE METABOLIC PANEL - Abnormal Sodium 139 Potassium 4.1 Chloride 108 (*) CO2 24 Anion Gap 11 BUN 23 Creatinine 1.30 BUN/Creatinine Ratio 17.7 Glucose 94 Calcium 8.5 (*) AST 38 ALT (SGPT) 27 Alkaline Phosphatase 207 (*) Total Protein 5.6 (*) Albumin 4.5 Total Bilirubin 0.5 eGFR 59.1 (*) IRON AND TIBC - Abnormal Iron 36 (*) TIBC <91 (*) Iron Saturation UIBC <55.0 (*) CBC WITH AUTO DIFFERENTIAL - Abnormal Auto WBC 11.67 (*) RBC 2.37 (*) Hemoglobin 8.0 (*) Hematocrit 23.9 (*) MCV 100.8 (*) MCH 33.8 (*) MCHC 33.5 RDW 16.8 (*) Neutrophils % 75.3 (*) Lymphocytes % 14.3 (*) Monocytes % 8.1 Eosinophils % 0.4 Basophils % 0.2 Neutrophils Absolute 8.78 (*) Lymphocytes Absolute 1.67 Monocytes Absolute 0.95 Eosinophils Absolute 0.05 Basophils Absolute 0.02 Platelets 168 nRBC % 0.0 Immature Granulocytes % 1.7 (*) Immature Granulocytes Absolute 0.20 FERRITIN - Abnormal Ferritin 437.0 (*) CBC - Abnormal Auto WBC 10.35 RBC 2.59 (*) Hemoglobin 8.6 (*) Hematocrit 25.8 (*) MCV 99.6 (*) MCH 33.2 (*) MCHC 33.3 RDW 16.8 (*) Platelets 181 COMPREHENSIVE METABOLIC PANEL - Abnormal Sodium 139 Potassium 3.8 Chloride 106 CO2 22 Anion Gap 15 BUN 29 (*) Creatinine 1.55 (*) BUN/Creatinine Ratio 18.7 Glucose 175 (*) Calcium 8.5 (*) AST 18 ALT (SGPT) 22 Alkaline Phosphatase 142 (*) Total Protein 5.3 (*) Albumin 4.0 Total Bilirubin 0.6 eGFR 47.9 (*) MAGNESIUM - Abnormal Magnesium 1.7 (*) CBC - Abnormal Auto WBC 13.62 (*) RBC 2.53 (*) Hemoglobin 8.6 (*) Hematocrit 25.1 (*) MCV 99.2 (*) MCH 34.0 (*) MCHC 34.3 RDW 17.0 (*) Platelets 181 COMPREHENSIVE METABOLIC PANEL - Abnormal Sodium 141 Potassium 3.9 Chloride 108 (*) CO2 25 Anion Gap 12 BUN 41 (*) Creatinine 1.63 (*) BUN/Creatinine Ratio 25.2 Glucose 135 (*) Calcium 8.4 (*) AST 13 ALT (SGPT) 17 Alkaline Phosphatase 115 (*) Total Protein 5.0 (*) Albumin 3.7 Total Bilirubin 0.4 eGFR 45.0 (*) URINALYSIS - Abnormal Color, Urine Light-Yellow Clarity, Urine Clear pH, Urine 7.0 Leukocytes, Urine Moderate (*) Nitrite, Urine Positive (*) Protein, Urine Negative Glucose, Urine Normal Bilirubin, Urine Negative Specific Minco, Urine 1.013 Ketones, Urine Negative Blood, Urine Negative Urobilinogen, Urine Normal URINALYSIS MICROSCOPIC - Abnormal RBC, Urine 0-2 WBC, Urine 6-10 (*) Squamous Epithelial, Urine None Seen Mucus, Urine Occasional CBC - Abnormal Auto WBC 13.61 (*) RBC 2.68 (*) Hemoglobin 8.9 (*) Hematocrit 27.0 (*) MCV 100.7 (*) MCH 33.2 (*) MCHC 33.0 RDW 17.2 (*) Platelets 173 COMPREHENSIVE METABOLIC PANEL - Abnormal Sodium 140 Potassium 4.0 Chloride 110 (*) CO2 25 Anion Gap 9 BUN 36 (*) Creatinine 1.41 (*) BUN/Creatinine Ratio 25.5 Glucose 143 (*) Calcium 8.3 (*) AST 15 ALT (SGPT) 19 Alkaline Phosphatase 113 (*) Total Protein 5.2 (*) Albumin 3.6 Total Bilirubin 0.4 eGFR 53.6 (*) MAGNESIUM - Abnormal Magnesium 1.8 (*) PHOSPHORUS - Abnormal Phosphorus 2.4 (*) VITAMIN D 25 HYDROXY - Abnormal Vit D, 25-Hydroxy 16.0 (*) CBC - Abnormal Auto WBC 13.15 (*) RBC 2.64 (*) Hemoglobin 8.8 (*) Hematocrit 27.3 (*) MCV 103.4 (*) MCH 33.3 (*) MCHC 32.2 RDW 17.1 (*) Platelets 177 COMPREHENSIVE METABOLIC PANEL - Abnormal Sodium 140 Potassium 4.2 Chloride 111 (*) CO2 22 Anion Gap 11 BUN 35 (*) Creatinine 1.37 (*) BUN/Creatinine Ratio 25.5 Glucose 133 (*) Calcium 8.2 (*) AST 14 ALT (SGPT) 18 Alkaline Phosphatase 103 Total Protein 5.0 (*) Albumin 3.4 (*) Total Bilirubin 0.4 eGFR 55.5 (*) MAGNESIUM - Abnormal Magnesium 1.7 (*) PHOSPHORUS - Abnormal Phosphorus 2.2 (*) POCT GLUCOSE METER UNSOLICITED RESULTS - Abnormal Glucose POC 138 (*) Narrative: Waived Testing in the ED is performed under the ED CLIA certificate #[id number]. CBC - Abnormal Auto WBC 21.21 (*) RBC 2.69 (*) Hemoglobin 9.0 (*) Hematocrit 28.1 (*) MCV 104.5 (*) MCH 33.5 (*) MCHC 32.0 RDW 17.2 (*) Platelets 179 COMPREHENSIVE METABOLIC PANEL - Abnormal Sodium 139 Potassium 4.1 Chloride 111 (*) CO2 20 (*) Anion Gap 12 BUN 33 (*) Creatinine 1.22 BUN/Creatinine Ratio 27.0 Glucose 142 (*) Calcium 8.4 (*) AST 15 ALT (SGPT) 18 Alkaline Phosphatase 102 Total Protein 5.2 (*) Albumin 3.5 Total Bilirubin 0.5 eGFR 63.8 MAGNESIUM - Abnormal Magnesium 1.7 (*) PHOSPHORUS - Abnormal Phosphorus 2.0 (*) URINALYSIS WITH REFLEX CULTURE - Abnormal Color, Urine Yellow Clarity, Urine Cloudy (*) pH, Urine 6.0 Leukocytes, Urine Large (*) Nitrite, Urine Negative Protein, Urine Negative Glucose, Urine Normal Bilirubin, Urine Negative Specific Minco, Urine <1.005 (*) Ketones, Urine Negative Blood, Urine Negative Urobilinogen, Urine Normal URINALYSIS MICROSCOPIC WITH REFLEX CULTURE - Abnormal RBC, Urine None Seen WBC, Urine >50 (*) Squamous Epithelial, Urine None Seen Mucus, Urine Occasional WBC Clumps, Urine Present (*) CK - Abnormal Total CK <10.0 (*) CBC - Abnormal Auto WBC 19.07 (*) RBC 2.65 (*) Hemoglobin 8.9 (*) Hematocrit 27.2 (*) MCV 102.6 (*) MCH 33.6 (*) MCHC 32.7 RDW 17.4 (*) Platelets 160 COMPREHENSIVE METABOLIC PANEL - Abnormal Sodium 139 Potassium 3.8 Chloride 109 (*) CO2 21 Anion Gap 13 BUN 38 (*) Creatinine 1.37 (*) BUN/Creatinine Ratio 27.7 Glucose 148 (*) Calcium 8.4 (*) AST 12 (*) ALT (SGPT) 16 Alkaline Phosphatase 91 Total Protein 5.0 (*) Albumin 3.4 (*) Total Bilirubin 0.4 eGFR 55.5 (*) MAGNESIUM - Abnormal Magnesium 1.7 (*) CBC - Abnormal Auto WBC 12.06 (*) RBC 2.38 (*) Hemoglobin 8.0 (*) Hematocrit 24.2 (*) MCV 101.7 (*) MCH 33.6 (*) MCHC 33.1 RDW 17.7 (*) Platelets 165 COMPREHENSIVE METABOLIC PANEL - Abnormal Sodium 139 Potassium 3.6 Chloride 109 (*) CO2 21 Anion Gap 13 BUN 39 (*) Creatinine 1.42 (*) BUN/Creatinine Ratio 27.5 Glucose 160 (*) Calcium 7.9 (*) AST 11 (*) ALT (SGPT) 13 Alkaline Phosphatase 81 Total Protein 4.6 (*) Albumin 3.0 (*) Total Bilirubin 0.3 eGFR 53.2 (*) MAGNESIUM - Abnormal Magnesium 1.5 (*) CBC - Abnormal Auto WBC 9.50 RBC 2.42 (*) Hemoglobin 8.0 (*) Hematocrit 24.4 (*) MCV 100.8 (*) MCH 33.1 (*) MCHC 32.8 RDW 18.0 (*) Platelets 199 COMPREHENSIVE METABOLIC PANEL - Abnormal Sodium 139 Potassium 3.7 Chloride 109 (*) CO2 21 Anion Gap 13 BUN 38 (*) Creatinine 1.15 BUN/Creatinine Ratio 33.0 Glucose 137 (*) Calcium 7.7 (*) AST 11 (*) ALT (SGPT) 12 Alkaline Phosphatase 73 Total Protein 4.5 (*) Albumin 2.9 (*) Total Bilirubin 0.3 eGFR 68.5 MAGNESIUM - Abnormal Magnesium 1.5 (*) CBC - Abnormal Auto WBC 10.66 (*) RBC 2.37 (*) Hemoglobin 7.9 (*) Hematocrit 24.0 (*) MCV 101.3 (*) MCH 33.3 (*) MCHC 32.9 RDW 18.3 (*) Platelets 204 COMPREHENSIVE METABOLIC PANEL - Abnormal Sodium 137 Potassium 4.0 Chloride 108 (*) CO2 22 Anion Gap 11 BUN 35 (*) Creatinine 1.29 BUN/Creatinine Ratio 27.1 Glucose 137 (*) Calcium 7.6 (*) AST 15 ALT (SGPT) 13 Alkaline Phosphatase 77 Total Protein 4.4 (*) Albumin 2.9 (*) Total Bilirubin 0.3 eGFR 59.6 (*) PHOSPHORUS - Abnormal Phosphorus 1.9 (*) RAPID INFLUENZA A/B PCR - Normal Rapid Influenza A PCR Negative Rapid Influenza B PCR Negative Narrative: Testing methodology utilizes isothermal nucleic acid amplification technology for the differential and qualitative detection of Influenza A and Influenza B viral nucleic acids. PHOSPHORUS - Normal Phosphorus 3.4 TACROLIMUS LEVEL - Normal Tacrolimus Lvl 5.9 PHOSPHORUS - Normal Phosphorus 3.4 TACROLIMUS LEVEL - Normal Tacrolimus Lvl 9.0 MAGNESIUM - Normal Magnesium 2.0 PHOSPHORUS - Normal Phosphorus 3.0 TACROLIMUS LEVEL - Normal Tacrolimus Lvl 5.5 PHOSPHORUS - Normal Phosphorus 4.0 TACROLIMUS LEVEL - Normal Tacrolimus Lvl 7.2 MAGNESIUM - Normal Magnesium 2.1 PHOSPHORUS - Normal Phosphorus 2.5 TACROLIMUS LEVEL - Normal Tacrolimus Lvl 8.5 CREATININE, URINE, RANDOM - Normal Creatinine, Ur 53.0 TACROLIMUS LEVEL - Normal Tacrolimus Lvl 7.4 PTH, INTACT - Normal PTH 45 TACROLIMUS LEVEL - Normal Tacrolimus Lvl 6.2 TACROLIMUS LEVEL - Normal Tacrolimus Lvl 8.8 PHOSPHORUS - Normal Phosphorus 3.3 TACROLIMUS LEVEL - Normal Tacrolimus Lvl 8.9 PHOSPHORUS - Normal Phosphorus 3.5 TACROLIMUS LEVEL - Normal Tacrolimus Lvl 7.1 PHOSPHORUS - Normal Phosphorus 2.5 TACROLIMUS LEVEL - Normal Tacrolimus Lvl 6.5 MAGNESIUM - Normal Magnesium 2.2 TACROLIMUS LEVEL - Normal Tacrolimus Lvl 6.6 BLOOD CULTURE Blood Culture No growth at 5 days BLOOD CULTURE Blood Culture No growth at 5 days URINE CULTURE, ROUTINE Urine Culture No growth at 18-24 hours CBC AND DIFFERENTIAL Narrative: The following orders were created for panel order CBC and differential. Procedure Abnormality Status --------- ------ CBC auto differential[[id number]] Abnormal Final result Please view results for these tests on the individual orders. DONOR SPECIFIC ANTIBODY Narrative: The following orders were created for panel order Donor specific antibody. Procedure Abnormality Status --------- ------ Single antigen class I[[id number]] Final result Single antigen class II[[id number]] Final result Please view results for these tests on the individual orders. CMV DNA, QUANTITATIVE, NAAT, PLASMA CMV Qnt by NAAT, Plasma IU/mL Not Detected CMV Qnt by NAAT, Plasma log IU/mL Not Detected CMV Qnt by NAAT, Plasma Interp Not Detected BK VIRUS, PLASMA, QUANTITATIVE BK Virus Plasma Interpretation Not Detected BK Virus Quantitation Not Detected BK Virus Quant Log Not Detected PROTEIN, URINE, RANDOM Protein, Ur 25.6 SINGLE ANTIGEN CLASS I Tested Date Test Method Class I Single Antigen Signed By Value: Signed by Abebe Stovall CHT([facility]) ALYSSA([facility]), Medical Records Receptionist Transplant Immunology Comments No Class I donor specific antibody identified SINGLE ANTIGEN CLASS II Tested Date Comments No Class II donor specific antibody identified Test Method Class II Single Antigen Signed By Value: Signed by Abebe Stovall CHT([facility]) ALYSSA([facility]), Medical Records Receptionist Transplant Immunology LEELA PROSPERA Nutrition Screen Clinical Indicators of Malnutrition: wound healing needs, reduced energy intake, poor appetite, unintentional weight loss Malnutrition Assessment (Completed by RD) Severe PCM: Chronic Illness: >7.5% involuntary weight loss in 3 months, decreased energy intake (<75% > 1 month) Treatment & Intervention Plan: other (comment) (ONS TID, consider appetite stimulant) Nutrition Goals: intake > 75% meals, intake > 75% supplements, maitain visceral protein, wound healing Issues Requiring Follow-Up Patient to follow up with transplant clinic on 08/06. Outpatient Follow-Up Future Appointments Date Time Provider Department Center 08/06/2025 8:00 AM [facility] None Test Results Pending At Discharge Pending Labs Order Current Status Leela Propsera In process Urine culture, routine Preliminary result Cosigned by Jayjay Robin MD at 07/27/2025 1:43 PM EST documented in this encounter Discharge Instructions * Discharge Instructions* Grazyna Briseno CNP - 07/18/2025 2:21 PM EST Follow immunosuppression Tacrolimus 2mg twice a day, Imuran 50mg daily, and prednisone 10mg daily. Do NOT take Envarsus/Tacrolimus prior to blood draws for clinic appointments. Follow up in transplant clinic as scheduled on Tuesday, August 06, 2024. Hydrate adequately and ambulate frequently. Resume Envarsus 4mg daily and stop tacrolimus 2mg twice a day when discharged from [facility] * Discharge Instr - Activity* Annalee Mark RN - 07/18/2025 10:58 AM EST Activity as tolerated PT/OT consult, evaluate and treat Assist with ADLs/transfers Reposition every 2 hours; pillows between knees when turned on sides Offload bilateral heels Fall risk precautions * Discharge Instr - Diet* Annalee Mark RN - 07/18/2025 10:54 AM EST Regular Diet 2g/Low Potassium; Fish Allergy Supplements: Deliver with All meals Select supplement: Boost Glucose Control Flavor: Chocolate Strength: 8 oz Route Oral * Appointments* Annalee Mark RN - 07/19/2025 11:21 AM EST Scheduled Appointments -Please follow up with the providers listed above.?? -If you are unable to keep your appointments, please call to reschedule as soon as possible.?? -Failure to cancel/reschedule your appointments, may result in dismissal from your medical providers practice(s).? * Discharge Instr - Other Orders* Annalee Mark RN - 07/19/2025 11:20 AM EST Wounds: Wounds Sacrum: please monitor for signs of infections/worsening of wound, can apply mepilex dressing change every 3 days and as needed. Follow immunosuppression Tacrolimus 2mg twice a day, Imuran 50mg daily, and prednisone 10mg daily. Do NOT take Envarsus/Tacrolimus prior to blood draws for clinic appointments. Follow up in transplant clinic as scheduled on Tuesday, August 06, 2024. Hydrate adequately and ambulate frequently. Resume Envarsus 4mg daily and stop tacrolimus 2mg twice a day when discharged from [facility] Midline: Change dressing and caps weekly and prn. Flush with 10mls NS before and after meds. Monitor site BID for bleeding, signs/symptoms of infection. Monitor I&O, swelling and daily weights. Labs: CBC, BMP 3-5 days documented in this encounter Medications at Time of Discharge MedicationSigDispense QuantityRefillsLast FilledStart DateEnd Date acetaminophen (Tylenol) 325 mg tablet Take 650 mg by mouth every 6 (six) hours if needed for mild pain (1-3 pain score) or fever greater than or equal to 38 degrees Celsius. calcium carbonate (Tums) 200 mg calcium (500 mg) chewable tablet Indications:Encounter for aftercare following kidney transplant,HypocalcemiaChew 2 tablets (1,000 mg) two times daily. Without food07/17/2025 calcium carbonate-vitamin D3 500 mg-5 mcg (200 unit) tablet Indications:Vitamin D deficiencyTake 1 tablet by mouth at bedtime. 30 tablet carvedilol (Coreg) 25 mg tablet 25 mg with breakfast and with evening meal.05/23/2024 cholecalciferol (D3-5) 5,000 Units tablet Indications:Vitamin D deficiencyTake 1 tablet (5,000 Units) by mouth in the morning. docusate sodium (Colace) 100 mg capsule Take 100 mg by mouth two times daily. famotidine (Pepcid) 20 mg tablet Indications:Gastroesophageal reflux disease without esophagitisTake 1 tablet (20 mg) by mouth at bedtime. 30 tablet fidaxomicin (Dificid) 200 mg tablet Indications:C. difficile colitisTake 1 tablet (200 mg) by mouth two times daily for 10 days. finasteride (Proscar) 5 mg tablet Indications:Benign prostatic hyperplasia with urinary retentionTake 1 tablet (5 mg) by mouth in the morning. Do not crush, chew, or split. 30 tablet folic acid (Folvite) 1 mg tablet Indications:Folate deficiencyTake 1 tablet (1 mg) by mouth in the morning for 94 doses. guaiFENesin (Mucinex) 600 mg 12 hr tablet Indications:[id number] 07/13 - 07/23Take 1,200 mg by mouth two times daily. Do not crush, chew, or split. hydrALAZINE (Apresoline) 100 mg tablet Indications:Primary hypertensionTake 1 tablet (100 mg) by mouth three times daily. 90 tablet ipratropium-albuteroL (Duo-Neb) 0.5-2.5 mg/3 mL nebulizer solution Take 3 mL by nebulization every 6 (six) hours if needed for wheezing or shortness of breath. magnesium glycinate 100 mg magnesium capsule Indications:HypomagnesemiaTake 3 capsules (300 mg) by mouth three times daily. 270 capsule megestrol (Megace) 400 mg/10 mL (10 mL) suspension Indications:Decrease in appetiteTake 20 mL (800 mg) by mouth in the morning. 600 mL NIFEdipine XL (Procardia XL) 30 mg 24 hr tablet Indications:Primary hypertensionTake 1 tablet (30 mg) by mouth in the morning. Do not crush, chew, or split. 30 tablet nystatin (Mycostatin) 100,000 unit/mL suspension Indications:Encounter for aftercare following kidney transplantTake 5 mL (500,000 Units) by mouth four times daily. Swish and swallow 600 mL ondansetron (Zofran) 4 mg tablet Take 4 mg by mouth every 4 (four) hours if needed for nausea or vomiting. pantoprazole (ProtoNix) 40 mg EC tablet Indications:Abdominal pain, unspecified abdominal locationTake 1 tablet (40 mg) by mouth before breakfast. Do not crush, chew, or split. 30 tablet predniSONE (Deltasone) 10 mg tablet Indications:ImmunosuppressionTake 0.5 tablets (5 mg) by mouth in the morning. 07/24/2025 Ringer's solution,lactated (lactated Ringer's) infusion Indications:DehydrationPlease administer 1L of Lactated Ringers intravenously through midline PICC every other day. 1L bolus to be administered over 4 hours at 250ml/hr. 7000 mL sod phos di, mono-K phos mono (K Phos Neutral) tablet Indications:Encounter for aftercare following kidney transplant,Hypophosphatemia Take 1 tablet by mouth two times daily.04/16/2025 sodium bicarbonate 650 mg tablet Indications:Transplant recipientTake 2 tablets (1,300 mg) by mouth two times daily.5008/23/2025 sulfamethoxazole-trimethoprim (Bactrim DS) 800-160 mg tablet Indications:Immunosuppressive management encounter following kidney transplant Take 1 tablet by mouth 3 (three) times a week. On Wednesday, Wednesday, and Wednesday 12 tablet 11004/13/2025 tacrolimus (Prograf) 1 mg capsule Indications:Immunosuppressive management encounter following kidney transplant Take 2 capsules (2 mg) by mouth two times daily for 14 days. 56 capsule tamsulosin (Flomax) 0.4 mg 24 hr capsule Indications:Urinary retentionTake 2 capsules (0.8 mg) by mouth in the morning. 60 capsule documented as of this encounter Progress Notes * Cecile Latham, RD - 07/24/2025 1:46 PM EST Adult Nutrition Assessment: Name: Christal Suh Date: 1955 Date of Visit: 07/24/25 Admission Dx: S/P kidney transplant [Z94.0] Reason for assessment: follow-up Information obtained from: medical record and nurse -assessment completed with RN and review of chart as pt continues to be upset with multiple different providers entering room Medical History[1] Current Medications: [Held by provider] azaTHIOprine, 50 mg, oral, Daily calcium carbonate-vitamin D3, 1 tablet, oral, Daily carvedilol, 25 mg, oral, BID with meals cholecalciferol, 5,000 Units, oral, Daily DAPTOmycin (Cubicin) 650 mg in sodium chloride 0.9 % 50 mL IVPB, 8 mg/kg, intravenous, q24h famotidine, 20 mg, oral, Nightly finasteride, 5 mg, oral, Daily heparin (porcine), 5,000 Units, subcutaneous, BID hydrALAZINE, 100 mg, oral, TID NIFEdipine XL, 30 mg, oral, Daily Oxygen Therapy, , inhalation, Continuous pantoprazole, 40 mg, oral, Daily before breakfast predniSONE, 5 mg, oral, Daily sod phos di, mono-K phos mono, 250 mg, oral, 4x daily sodium bicarbonate, 650 mg, oral, BID sodium bicarbonate, 650 mg, oral, BID sodium chloride, 10 mL, intravenous, q12h sulfamethoxazole-trimethoprim, 160 mg of trimethoprim, oral, Once per day on Wednesday tacrolimus ER, 4 mg, oral, Daily tamsulosin, 0.8 mg, oral, Daily Labs: 0 Lab Value Date/Time POCGLU 138 (H) 07/19/2025 0719 BUN 35 (H) 07/24/2025 0502 CREATININE 1.29 07/24/2025 0502 NA 137 07/24/2025 0502 K 4.0 07/24/2025 0502 PHOS 1.9 (L) 07/24/2025 0502 MG 2.2 07/24/2025 0502 HGBA1C 4.6 04/29/2025 0414 HGB 7.9 (L) 07/24/2025 0501 WBC 10.66 (H) 07/24/2025 0501 CHOL 150 04/29/2025 0414 HDL 47 04/29/2025 0414 COVID+ 07/14/25 C-diff + Ca 7.7 Vitamin D 16.0 07/18/25 Allergies: Allergies[2] Nutrition Problems: Mouth: missing teeth Abdominal Assessment: Last BM 07/22 C-diff + Hx partial colectomy CT abdomen: fluid collection inferior to tx kidney I/O: Urine output: 1150 ml / 24 hrs Net fluid: +4.6L Appetite: Improved Urology discontinued megace and noted improvement in appetite/intakes Cognition: A/O x4 Continues to be depressed and frustrated NFPE: deferred Skin Integrity: L elbow: skin tear Bilateral buttocks: blanchable erythema Edema: Generalized non-pitting/BUE/BLE Other Factors: 03/31/25: s/p DDRT 04/28/25: ischemic stroke Nutrition Data/Clinical Indicators of Nutrition Status: Height: 185.4 cm (6' 0.99 ) Weight: 85.5 kg (188 lb 7.9 oz) BMI (Calculated): 24.87 Weight History: 07/13/25: 77.6 kg this admission wt 09/21/24: 85.8 kg Pretransplant evaluation 04/02/25: 87.1 kg post transplant 05/30/25: 77.1 kg IP admission IBW: 78.2 kg Weight change: 11% TBW x 3 months post transplant-present Severity of weight change: severe Nutrition Assessment: 07/14/25 Pt has been at [facility] since 06/15/25. He c/o food & water tastes like sewage . Sister brought in flavored bottled water. Regular diet. Boost with meals but he reports he only receives it once per day. States he would drink it more often otherwise. Does not keep snacks in his room & reports the staff does not offer anything between meals 07/24/25 Average documented intakes over the past week: 76% x 10 recorded meals. RN reports consumption of 100% of meals thus far today and states pt has been exhibiting an excellent appetite and consuming 100% of BGC ONS. Plan for discharge later today. Dietary Orders (From admission, onward) Start Ordered 07/23/25 1356 Special Kitchen Request Once Comments: Egg salad- no bread, applesauce, peaches, willard chela, cranberry juice, chocolate pudding,orange sherbet, 2 slices of wheat toast 07/23/25 1359 07/21/25 1719 Special Kitchen Request Once Comments: Canned peaches, strawberry yogurt, apple juice, ukrainian muffin, chicken quesadilla, applesauce, vanilla pudding, orange sherbet 07/21/25 1729 07/21/25 1633 Special Kitchen Request Once Comments: Raspberry sherbet x2 07/21/25 1632 07/21/25 1352 Special Kitchen Request Once Comments: Canned pineapple, mandarin oranges, ford yogurt, grape juice x2, raspberry mohawk, vanilla pudding, raspberry sherbet 07/21/25 1353 07/21/25 0950 Special Kitchen Request Once Comments: Omelet with onion, emirati cheese, mushroom, portuguese cheese, diced green pepper, 2 slices f vega, 1 cream of wheat with brown sugar topping, 1 ukrainian muffin, mandarin oranges, apple juice,vanilla yogurt, salt, pepper 07/21/25 0951 07/14/25 115 Dietary nutrition supplements All meals; Boost Glucose Control; Chocolate; 8 oz; OralUntil discontinued Question Answer Comment Deliver with All meals Select supplement: Boost Glucose Control Flavor: Chocolate Strength: 8 oz Route Oral 07/14/25 1156 07/13/252050 Regular Diet 2g/Low Potassium; Fish Allergy Diet effective now Question Answer Comment Room Service? Yes Potassium restriction: 2g/Low Potassium Other restriction(s): Fish Allergy 07/13/252049 Nutrition Risk: High Nutrition Needs: Needs based on: admission weight (77.6 kg) Calorie needs: 1351-4078 kcals/day based on 25-30 kcal/kg Protein needs: 77-93 g/day based on 1-1.2 g/kg Fluid needs: 2328 ml/day based on 30 ml/kg Nutrition Diagnosis: Severe PCM related to chronic illness as evidenced by wt loss >7.5% in 3 months & intakes <75% estimated needs >1 month continues, first diagnosed 05/30/25 - ongoing, improving Malnutrition Assessment: Assessment Reason for Referral: MD Referral Nutrition information obtained from:: Patient, Medical Record, Nursing, Transfer Record Clinical Indicators of Malnutrition: wound healing needs, reduced energy intake, poor appetite, unintentional weight loss Malnutrition Assessment (Completed by RD) Severe PCM: Chronic Illness: >7.5% involuntary weight loss in 3 months, decreased energy intake (<75% > 1 month) Nutrition Intake Percent Meals Eaten (%): 100 Nutrition Treatment and Intervention Plan Treatment & Intervention Plan: other (comment) (ONS TID, consider appetite stimulant) Nutrition Goals: intake > 75% meals, intake > 75% supplements, maitain visceral protein, wound healing Treatment Plan: Diet: consider liberalizing To promote intakes (dx PCM) / K + WNL this admission Assist with ordering prn ONS: continue with BGC TID Monitor and replace electrolytes prn Continue with vitamin D and calcium supplementation Daily wt monitoring Goals: Adequate po intakes (kcals and protein); >75% meals Adherence/tolerance to ONS; >75% supplements Weight maintenance Maintain visceral protein GI fxn wnl Nutrition-related labs (magnesium, phosphorus, BMP) wnl To reach the Clinical Dietitian, please utilize [facility] chat Wednesday-Wednesday from 8AM-4PM or call extension [phone]. For weekends (Wednesday-Wednesday) and holidays, the Clinical Dietitian can be reached via pager [phone]) from 9AM-3PM. The Clinical Nutrition Department is unable to respond to [employer] chat messages on Sundays and s. [1] Past Medical History: Diagnosis Date Anemia in chronic kidney disease (CKD) CKD (chronic kidney disease) stage 5, GFR less than 15 ml/min ([facility]) Diverticular disease s/p colectomy 2015 Gout History of DVT (deep vein thrombosis) proximal vein left leg (from distal calf to groin, 07/2021, was to be on lifelong warfarin but stopped after 05/2022 GI bleed) Hypertensive disorder Lung nodule seen on imaging study NSAID long-term use h/o Proteinuria Recurrent sinusitis Recurrent sinusitis Renal cyst, left Secondary hyperparathyroidism of renal origin Stroke ([facility]) Vitamin D deficiency [2] Allergies Allergen Reactions Shellfish Derived Nausea And Vomiting Vomiting Amlodipine Swelling Leg edema Fish Containing Products Unknown * Madeleine Lewis MD - 07/24/2025 12:42 PM EST Nephrology Progress Note Patient : Christal Suh; 69 y.o. Location: [id number] Attending: Jayjay Robin MD Admit Date: 07/13/2025 Hospital Day: 11 Reason for Consult: Medical and immunosuppressive management in renal transplant patient Subjective: 07/23/25 Patient was evaluated at bedside. No acute events reported overnight. Creatinine has returned to normal at 1.15. Mild hypomagnesemia at 1.5, will replace. Serum bicarbonate at 21 w/ AG of 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 07/22/25 Patient was seen and examined at bedside today morning no unexpected acute events reported overnight. Patient made around 750 ml of urine over 24 hours. Will continue Iv sod bicarb. Will continue to monitor kidney function. 07/21/25 Patient was seen and examined at bedside today morning. Patient spiked temp overnight. He had around 1300 ml of urine over 24 hour. His S. Cr is 137 and BUN 38. 07/20/25 Patient seen and evaluated at bedside. Patient continuing to have good UOP with 1.5 L in the last 24 hours. Labs continuing to improve with S Cr 1.22 (1.37) and BUN 33 (35). Electrolytes WNL. No acute concerns from renal perspective. Interval history: 07/24/25 Seen and examined today. He is doing fine and no new complain. For possible discharge today. UOP 1.1 L Objective: Input/Output: Intake/Output Summary (Last 24 hours) at 07/24/2025 1244 Last data filed at 07/24/2025 1144 Gross per 24 hour Intake 3298.75 ml Output 1150 ml Net 2148.75 ml I/O last 3 completed shifts: In: 5237.5 (61.3 mL/kg) [P.O.:0; I.V.:2947.5 (34.5 mL/kg); IV Piggyback:200] Out: 1700 (19.9 mL/kg) [Urine:1700 (0.6 mL/kg/hr)] Weight: 85.5 kg Vital signs: Temperature: Temp: 36.9 ??C (98.4 ??F) TMax: Temp (24hrs), Av.8 ??C (98.3 ??F), Min:36.7 ??C (98.1 ??F), Max:36.9 ??C (98.4 ??F) Respirations: Resp: 16 Pulse: Heart Rate: 78 BP: BP: 126/85 BP Range: Systolic (24hrs), Av , Min:110 , Max:133 Diastolic (24hrs), Av, Min:59, Max:85 Wt Readings from Last 3 Encounters: 07/24/25 85.5 kg (188 lb 7.9 oz) 06/15/25 79 kg (174 lb 2.6 oz) 05/29/25 78.3 kg (172 lb 9.6 oz) Physical Exam Constitutional: Appearance: Normal appearance. Cardiovascular: Rate and Rhythm: Normal rate. Pulses: Normal pulses. Heart sounds: Normal heart sounds. Pulmonary: Effort: Pulmonary effort is normal. Breath sounds: Normal breath sounds. Abdominal: General: Abdomen is flat. Bowel sounds are normal. Palpations: Abdomen is soft. Neurological: Mental Status: He is alert. Current Medications: Scheduled Meds: [Held by provider] azaTHIOprine, 50 mg, oral, Daily calcium carbonate-vitamin D3, 1 tablet, oral, Daily carvedilol, 25 mg, oral, BID with meals cholecalciferol, 5,000 Units, oral, Daily DAPTOmycin (Cubicin) 650 mg in sodium chloride 0.9 % 50 mL IVPB, 8 mg/kg, intravenous, q24h famotidine, 20 mg, oral, Nightly finasteride, 5 mg, oral, Daily heparin (porcine), 5,000 Units, subcutaneous, BID hydrALAZINE, 100 mg, oral, TID NIFEdipine XL, 30 mg, oral, Daily Oxygen Therapy, , inhalation, Continuous pantoprazole, 40 mg, oral, Daily before breakfast predniSONE, 5 mg, oral, Daily sod phos di, mono-K phos mono, 250 mg, oral, 4x daily sodium bicarbonate, 650 mg, oral, BID sodium bicarbonate, 650 mg, oral, BID sodium chloride, 10 mL, intravenous, q12h sulfamethoxazole-trimethoprim, 160 mg of trimethoprim, oral, Once per day on Wednesday tacrolimus ER, 4 mg, oral, Daily tamsulosin, 0.8 mg, oral, Daily Continuous Infusions: PRN Meds: PRN medications: acetaminophen, albuterol, lidocaine HCl, melatonin, ondansetron ODT OR ondansetron, Insert peripheral IV AND Saline lock IV AND sodium chloride, sodium chloride, sodium chloride Outpatient Medications: Medication Documentation Review Audit Reviewed by Adrienne Brown RN (Registered Nurse) on 07/13/25 at 2139 Medication Order Taking? Sig Documenting Provider Last Dose Status acetaminophen (Tylenol) 325 mg tablet [id number] Take 650 mg by mouth every 6 (six) hours if needed for mild pain (1-3 pain score) or fever greater than or equal to 38 degrees Celsius. Historical Provider, Active azaTHIOprine (Imuran) 75 mg tablet [id number] No Take 1 tablet (75 mg) by mouth in the morning for 96doses. Patient not taking: Reported on 07/13/2025 Grazyna Briseno CNP Not Taking Active calcium carbonate (Tums) 200 mg calcium (500 mg) chewable tablet [id number] Chew 3 tablets (1,500 mg)two times daily. Without food Patient taking differently: Chew 2 tablets two times daily. Without food Jayjay Robin MD Active calcium carbonate-vitamin D3 500 mg-5 mcg (200 unit) tablet [id number] Take 2 tablets by mouth two times daily. Patient taking differently: Take 1 tablet by mouth at bedtime. Grazyna Briseno CNP Active carvedilol (Coreg) 25 mg tablet [id number] 25 mg with breakfast and with evening meal. Cristal Vazquez MD Active cephalexin (Keflex) 500 mg capsule [id number] Take 500 mg by mouth four times daily. FOR INFECTION FOR 10 DAYS(07/13 - 07/23) Cristal Vazquez MD Active docusate sodium (Colace) 100 mg capsule [id number] Take 100 mg by mouth two times daily. Cristal Vazquez MD Active famotidine (Pepcid) 20 mg tablet [id number] Take 1 tablet (20 mg) by mouth at bedtime. Jayjay Robin MD Active finasteride (Proscar) 5 mg tablet [id number] Take 1 tablet (5 mg) by mouth in the morning. Do not crush, chew, or split. Jayjay Robin MD Active folic acid (Folvite) 1 mg tablet [id number] Take 1 tablet (1 mg) by mouth in the morning for 94 doses. Grazyna Briseno CNP Active guaiFENesin (Mucinex) 600 mg 12 hr tablet [id number] Take 1,200 mg by mouth two times daily. Do not crush, chew, or split. Cristal Vazquez MD Active hydrALAZINE (Apresoline) 100 mg tablet [id number] Take 1 tablet (100 mg) by mouth three times daily. Wendy Lomeli MD Active ipratropium-albuteroL (Duo-Neb) 0.5-2.5 mg/3 mL nebulizer solution [id number] Take 3 mL by nebulization every 6 (six) hours if needed for wheezing or shortness of breath. Cristal Vazquez MD Active magnesium glycinate 100 mg magnesium capsule [id number] Take 3 capsules (300 mg) by mouth three timesdaily. Jayjay Robin MD Active NIFEdipine XL (Procardia XL) 30 mg 24 hr tablet [id number] Take 1 tablet (30 mg) by mouth in the morning. Do not crush, chew, or split. Jayjay Robin MD Active nystatin (Mycostatin) 100,000 unit/mL suspension [id number] Take 5 mL (500,000 Units) by mouth four times daily. Swish and swallow Wendy Lomeli MD Active ondansetron (Zofran) 4 mg tablet [id number] Take 4 mg by mouth every 4 (four) hours if needed for nausea or vomiting. Historical ProviderMD Active pantoprazole (ProtoNix) 40 mg EC tablet [id number] Take 1 tablet (40 mg) by mouth before breakfast. Do not crush, chew, or split. Delano Klein MD Active predniSONE (Deltasone) 10 mg tablet [id number] Take 1 tablet (10 mg) by mouth in the morning. Jayjay Robin MD Active sod phos di, mono-K phos mono (K Phos Neutral) tablet [id number] Take 1 tablet by mouth two times daily. Jayjay Robin MD Active sulfamethoxazole-trimethoprim (Bactrim DS) 800-160 mg tablet [id number] Take 1 tablet by mouth 3 (three) times a week. On Wednesday, Wednesday, and Wednesday Wendy Lomeli MD Active tacrolimus ER (Envarsus XR) 4 mg tablet ER [id number] Take 1 tablet (4 mg) by mouth in the morning. Script total 8.5 mg daily Patient taking differently: Take 4 mg by mouth in the morning. 4 mg daily Wendy Lomeli MD Active tamsulosin (Flomax) 0.4 mg 24 hr capsule [id number] Take 2 capsules (0.8 mg) by mouth in the morning.Jayjay Robin MD Active valGANciclovir (Valcyte) 450 mg tablet [id number] Take 1 tablet (450 mg) by mouth in the morning. As directed. Wendy Lomeli MD Active vancomycin (Vancocin) 125 mg capsule [id number] Take 125 mg by mouth 2 times daily. Historical Provider, Active Labs: I have reviewed the patient's most recent labs as listed below: Chemistry: Lab Results Component Value Date NA 137 07/24/2025 K 4.0 07/24/2025 CL 108 (H) 07/24/2025 CO2 22 07/24/2025 ANIONGAP 11 07/24/2025 BUN 35 (H) 07/24/2025 CREATININE 1.29 07/24/2025 EGFR 59.6 (L) 07/24/2025 CKTOTAL <10.0 (L) 07/20/2025 CALCIUM 7.6 (L) 07/24/2025 MG 2.2 07/24/2025 PHOS 1.9 (L) 07/24/2025 PTH 45 07/18/2025 VITD25 16.0 (L) 07/18/2025 ALBUMIN 2.9 (L) 07/24/2025 PROT 4.4 (L) 07/24/2025 AST 15 07/24/2025 ALT 13 07/24/2025 BILITOT 0.3 07/24/2025 BILIDIR 0.1 05/29/2025 ALKPHOS 77 07/24/2025 Hematology & Iron studies: Lab Results Component Value Date WBC 10.66 (H) 07/24/2025 HGB 7.9 (L) 07/24/2025 HCT 24.0 (L) 07/24/2025 MCV 101.3 (H) 07/24/2025 PLT 204 07/24/2025 IRON 36 (L) 07/15/2025 TIBC <91 (L) 07/15/2025 UIBC <55.0 (L) 07/15/2025 IRONSAT 07/15/2025 Comment: Unable to Calculate FERRITIN 437.0 (H) 07/15/2025 Urine chemistry Lab Results Component Value Date PROTUR Negative 07/20/2025 PROTUR 25.6 07/17/2025 CREATUR 53.0 07/17/2025 Urinalysis & Microscopy: No results found for: COLORU , CLARITYU , SPECGRAVU , BENNETT , PROTUR , LEUKOCYTESU , NITRITEU , GLUCOSEU , KETONESU , BILIRUBINUR , UROBILINOGEN , BLOODU , RBCU , WBCU , SQUAMEPIU , MUCUSU , TRIPHOCRYU , CAOXALCRU , CAPHOSCRYU Urine Eosinophils: No components found for: UEOS Serology & Other labs: Lab Results Component Value Date HEPCAB Nonreactive 04/01/2025 HEPBSAG Nonreactive 04/01/2025 BNP: No results found for: BNP JOSELO: No results found for: JOSELO SPEP: Lab Results Component Value Date PROT 4.4 (L) 07/24/2025 UPEP: No components found for: LABPE C3: No results found for: C3 C4: No results found for: C4 MPO ANCA: No components found for: MPO PR3 ANCA: No components found for: PR3 Anti-GBM: No components found for: GBMABIGG Hep BsAg: No results found for: HEPBSAG Hep C AB: No results found for: HEPCAB Radiology: CT abdomen pelvis wo IV contrast Narrative: HISTORY: A 69-year-old male with the history of the left lower quadrant abdominal pain. Diverticulitis is suspected. EXAM/TECHNIQUE: Multidetector spiral CT scan of abdomen and pelvis is performed without intravenous contrast administration. Multiplanar reconstruction images are reformatted. All CT scans at this facility use dose modulation, iterative reconstruction, and/or weight based dosing when appropriate to reduce radiation dose to as low as reasonably achievable. COMPARISON: Comparison is made with the CT scan of the abdomen and pelvis of 05/31/2025. FINDINGS: There are bilateral small pleural effusions and bibasilar atelectasis. Heart appears enlarged. There is a pericardial effusion. Liver is normal in size and attenuation. Spleen is not visualized suggestive of prior splenectomy with multiple splenic tissues in the left upper abdomen. Pancreas is unremarkable. Gallbladder is normal. No biliary ductal dilatation is identified. Both [place] kidneys are small and atrophic. There is no evidence of hydronephrosis in the [place] kidneys. There is a stable left renal cyst. Urinary bladder is unremarkable. There is a transplant kidney in the right pelvic fossa. There is probable hydronephrosis in the transplant kidney. There is a 7 mm hypodense abnormality in the transplant kidney. There is a lobulated fluid collection inferior to the transplant kidney. It measures 7 x 5.4 x 4.5 cm in size. This could be a lymphocele. Dilated ureter cannot be excluded. Bowel gas pattern is nonobstructive. There is anastomosis in the pelvis. There is a diverticular disease of the descending colon. No evidence of diverticulitis. Moderate amount of feces is seen in the colon. There is no evidence of ascites fluid. Vascular calcifications are seen. There is generalized edema. There is a compression deformity of the L4 vertebral body. Degenerative changes are seen in the thoracolumbar spine and both hip joints Impression: * There is a diverticular disease of the descending colon. No CT scan evidence of diverticulitis. * Nonobstructive bowel gas pattern with moderate amount of feces. 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 Probable hydronephrosis is suspected. There is a 7 mm hypodense abnormality in the transplant kidney. There is an approximately 7 x 5.4 x 4.5 cm lobulated fluid collection inferior to the transplant kidney in the perinephric region. This abnormality was present on the prior study. This could be a lymphocele, dilated ureter or others cyst. A clinical correlation is suggested. Renal transplant ultrasound examination would be helpful for further evaluation. * Multifocal splenic tissues in the left upper abdomen. * Atrophic both [place] kidneys with the left renal cyst. * Bilateral small pleural effusions and bibasilar atelectasis. * Pericardial effusion. Electronically signed: Rosalino Rueda. Assessment: Acute kidney injury. Serum creatinine 1.1 today. History of ESRD status post DDRT (03/31/2025) EBV +/+ CMV -/+ Need for immunosuppression Need for antimicrobial prophylaxis COVID pneumonia Clostridium difficile infection on fidaxomicin Hypomagnesemia Magnesium was 1.5 Hypocalcemia Calcium was 7.7 today. Vitamin D deficiency: Vitamin D level 16, PTH 45. On calcium/vitamin D supplement. Fever with Leukocytosis Pseudomonas UTI Plan: Discharge on same immunosuppressant medications Continue on same Antimicrobial prophylaxis Discharge on sodium bicarb tablets Nephrology clinic follow up Patient seen and examined with the nephrology team Plan of care was discuaaed with Dr Klein Nephrology attedning and Dr. Ch Nephrology fellow Madeleine Lewis. Internal Medicine Resident , PGY-1 [facility] Cosigned by Delano Klein MD at 07/25/2025 1:43 PM EST Associated attestation - Delano Klein MD - 07/25/2025 1:43 PM EST I personally saw and examined the patient on the same date of service as resident/fellow Madeleine Lewis MD. I discussed the findings and therapeutic plan with the Madeleine Lewis MD. I agree with the documentation, except for any edits/updates below. Patient is seen and examined at bedside. He is lying comfortably in bed. Volume status is optimal. -Continue with current immunosuppressive medications including tacrolimus and prednisone 10 mg daily and continue to hold Imuran. -Patient will benefit from outpatient hydration -Continue with current prophylaxis medications -Outpatient follow-up in transplant clinic Continue to monitor kidney function and electrolytes. Avoid nephrotoxic medications. Delano Klein MD Faculty, Division of Nephrology, Department of Medicine, [facility]. * YAMILKA Elder - 07/24/2025 10:00 AM EST Discharge Planning Patient is approaching medical readiness for discharge. Discharge plan is to return to [facility]. DANIE sent updates through [facility] and notified them of potential discharge. Discharge order placed. [facility] confirmed they are able to accept patient today. DANIE scheduled transportation with [facility] for 4:00PM. DANIE sent [facility] and notified of transport time. Patient notified and in agreement. Treatment team updated. Discharge packet to be left with patient's physical chart. * Willam Glaser MD - 07/24/2025 8:17 AM EST Images from the original note were not included. Department of Urologic Surgery & Renal Transplantation DAILY PROGRESS NOTE Background: Christal Suh is a 69 y.o. year old male with a PMH of ESRD 2/2 HTN now s/p DDRT, earlier readmission for LLQ pain from diverticulitis and recent ischemic stroke and more recent TURP for urinary retention. He is admitted with FTT and reportedly COVID but no significant symptoms. Procedures/Operations: - 05/11/25 - Rabets (Uro): TURP - 05/01/25 - Clar (Uro): Bedside cysto, removal of stent - 03/31/25 - Lobito (Transplant): DDRT Subjective/Interval Summary: Reports he feels okay, af/vss. Unchanged abdominal issues BM stable He is eating well without issues. CT completed does show a fluid collection, likely lymphocele, this has been sampled before and not infectious. Creatinine stable No burning with urination. Denies shortness of breath. He denies recent ambulation. Objective: Vitals: Vitals: 07/24/25 0400 BP: 110/59 Pulse: 76 Resp: 15 Temp: 36.7 ??C (98.1 ??F) SpO2: 100% I/O last 3 completed shifts: In: 5237.5 (61.3 mL/kg) [P.O.:0; I.V.:2947.5 (34.5 mL/kg); IV Piggyback:200] Out: 1700 (19.9 mL/kg) [Urine:1700 (0.6 mL/kg/hr)] Weight: 85.5 kg No intake/output data recorded. Gen: Alert & oriented x3, no acute distress, not ill-appearing Neuro: Grossly intact, no obvious CN defects CV: Regular rate, radial pulses present Resp: Breathing comfortably on RA, no audible wheezing or accessory muscle use Abd: Soft, some Left groin pain, no tenderness, Non-distended, well healed RLQ incision : no catheterization or external collection devices MSK: Moving all extremities, warm and well perfused, appropriate ROM, no edema Labs: Results from last 7 days Lab Units 07/24/25 0501 07/23/25 0650 07/22/25 0401 07/21/25 0340 07/20/25 0515 WBC AUTO 10*3/uL 10.66* 9.50 12.06* 19.07* 21.21* HEMOGLOBIN g/dL 7.9* 8.0* 8.0* 8.9* 9.0* HEMATOCRIT % 24.0* 24.4* 24.2* 27.2* 28.1* PLATELETS AUTO 10*3/uL 204 199 165 160 179 Results from last 7 days Lab Units 07/24/25 0502 07/23/25 0650 07/22/25 0401 07/21/25 0340 07/20/25 0515 SODIUM mmol/L 137 139 139 139 139 POTASSIUM mmol/L 4.0 3.7 3.6 3.8 4.1 CO2 mmol/L 22 21 21 21 20* BUN mg/dL 35* 38* 39* 38* 33* CREATININE mg/dL 1.29 1.15 1.42* 1.37* 1.22 Medications: [Held by provider] azaTHIOprine, 50 mg, oral, Daily calcium carbonate-vitamin D3, 1 tablet, oral, Daily carvedilol, 25 mg, oral, BID with meals cholecalciferol, 5,000 Units, oral, Daily DAPTOmycin (Cubicin) 650 mg in sodium chloride 0.9 % 50 mL IVPB, 8 mg/kg, intravenous, q24h famotidine, 20 mg, oral, Nightly finasteride, 5 mg, oral, Daily heparin (porcine), 5,000 Units, subcutaneous, BID hydrALAZINE, 100 mg, oral, TID NIFEdipine XL, 30 mg, oral, Daily Oxygen Therapy, , inhalation, Continuous pantoprazole, 40 mg, oral, Daily before breakfast predniSONE, 5 mg, oral, Daily sodium bicarbonate, 650 mg, oral, BID sulfamethoxazole-trimethoprim, 160 mg of trimethoprim, oral, Once per day on Wednesday tacrolimus ER, 4 mg, oral, Daily tamsulosin, 0.8 mg, oral, Daily sodium bicarbonate 75 mEq in sodium chloride 0.45 % 1,000 mL infusion, 75 mL/hr, Last Rate: 75 mL/hr (07/24/25 0656) Imaging: CT abdomen pelvis wo IV contrast Narrative: HISTORY: A 69-year-old male with the history of the left lower quadrant abdominal pain. Diverticulitis is suspected. EXAM/TECHNIQUE: Multidetector spiral CT scan of abdomen and pelvis is performed without intravenous contrast administration. Multiplanar reconstruction images are reformatted. All CT scans at this facility use dose modulation, iterative reconstruction, and/or weight based dosing when appropriate to reduce radiation dose to as low as reasonably achievable. COMPARISON: Comparison is made with the CT scan of the abdomen and pelvis of 05/31/2025. FINDINGS: There are bilateral small pleural effusions and bibasilar atelectasis. Heart appears enlarged. There is a pericardial effusion. Liver is normal in size and attenuation. Spleen is not visualized suggestive of prior splenectomy with multiple splenic tissues in the left upper abdomen. Pancreas is unremarkable. Gallbladder is normal. No biliary ductal dilatation is identified. Both [place] kidneys are small and atrophic. There is no evidence of hydronephrosis in the [place] kidneys. There is a stable left renal cyst. Urinary bladder is unremarkable. There is a transplant kidney in the right pelvic fossa. There is probable hydronephrosis in the transplant kidney. There is a 7 mm hypodense abnormality in the transplant kidney. There is a lobulated fluid collection inferior to the transplant kidney. It measures 7 x 5.4 x 4.5 cm in size. This could be a lymphocele. Dilated ureter cannot be excluded. Bowel gas pattern is nonobstructive. There is anastomosis in the pelvis. There is a diverticular disease of the descending colon. No evidence of diverticulitis. Moderate amount of feces is seen in the colon. There is no evidence of ascites fluid. Vascular calcifications are seen. There is generalized edema. There is a compression deformity of the L4 vertebral body. Degenerative changes are seen in the thoracolumbar spine and both hip joints Impression: * There is a diverticular disease of the descending colon. No CT scan evidence of diverticulitis. * Nonobstructive bowel gas pattern with moderate amount of feces. 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 Probable hydronephrosis is suspected. There is a 7 mm hypodense abnormality in the transplant kidney. There is an approximately 7 x 5.4 x 4.5 cm lobulated fluid collection inferior to the transplant kidney in the perinephric region. This abnormality was present on the prior study. This could be a lymphocele, dilated ureter or others cyst. A clinical correlation is suggested. Renal transplant ultrasound examination would be helpful for further evaluation. * Multifocal splenic tissues in the left upper abdomen. * Atrophic both [place] kidneys with the left renal cyst. * Bilateral small pleural effusions and bibasilar atelectasis. * Pericardial effusion. Electronically signed: Rosalino Rueda. Assessment: Christal Suh is a 69 y.o. male with a PMH of ESRD 2/2 HTN now s/p DDRT, and history of ischemic stroke admitted for weakness and failure to thrive. Active Problems: S/p DDRT Need for immunosuppression H/o diverticulitis H/o stroke BPH with retention S/p TURP FTT COVID-19 C Diff diarrhea Severe protein-calorie malnutrition Urine Culture- Pseudomonas aeruginosa Leukocytosis Fever Plan: Diet: Regular, patient has severe PCM Nutritional supplements- Boost glucose control Patient would like these at his facility at discharge. Reports he does not enjoy the meals offered at his facility Dietary consulted Severe protein-calorie malnutrition Had edema at admission, Albumin infusion TiD > albumin, resolved Nutrition consulted Will obtain calorie count, eating better today, says he doesn't like the food at the rehab, that's why he has not been eating well Boost Tid, encouraged to eat better, eating okay, drinking boost shakes. Improved now, eating much better encourage protein shakes tid Immunosuppression: Maintenance: Imuran 50mg daily,held now due to fever/infection Tacrolimus 4mg daily, follow levels and adjust, level 6.6 today, no changes, will switch to prografIR 2mg twice daily on discharge to accommodate facility needs. Pred 5 mg daily due to fever/infection Immunoprophylaxis: Bactrim M/W/F Nystatin Swish qid Valcyte 450 mg once daily- discontinued due to being more than 3 months post transplant Infection Recent C Diff, COVID-19 Consulted ID, appreciate recommendations No respiratory symptoms, did require Bipap on 07/15, on room air now, will continue to monitor Switched to dificid due to worsening diarrhea. 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 Fever (07/20) Started cefepime empirically on 07/20 Blood cultures from 07/20 - NGTD Flu test ordered- negative Pseudomonas in urine culture, possible UTI Continue flomax to ensure proper bladder emptying, check PVR Left groin Pain- nothing found on CT to explain the pain ID following for antibiotic plan Plan to continue dapto for 5 total days Cefepime for 5 days Both finish today Monitor renal function: UOP: 1150 recorded cc/24 hr Renal function stable, will continue to monitor prospera/DSA/BK pending CMV negative (07/17) Improved today, CT scan does show small fluid collection inferior to renal transplant. No acute recommendations at this time. Results from last 7 days Lab Units 07/24/25 0502 07/23/25 0650 07/22/25 0401 07/21/25 0340 07/20/25 0515 07/19/25 0518 07/18/25 0532 CREATININE mg/dL 1.29 1.15 1.42* 1.37* 1.22 1.37* 1.41* BUN mg/dL 35* 38* 39* 38* 33* 35* 36* Anemia of chronic kidney disease: Hgb 7.9 Aranesp weekly Results from last 7 days Lab Units 07/24/25 0501 07/23/25 0650 07/22/25 0401 07/21/25 0340 07/20/25 0515 07/19/25 0518 07/18/25 0532 WBC AUTO 10*3/uL 10.66* 9.50 12.06* 19.07* 21.21* 13.15* 13.61* HEMOGLOBIN g/dL 7.9* 8.0* 8.0* 8.9* 9.0* 8.8* 8.9* PLATELETS AUTO 10*3/uL 204 199 165 160 179 177 173 Fluid/Electrolytes: IVF: Continue @ 75 ml/hr due to MEDARDO from possible dehydration, will be discontinued at discharge, will check with facility to see if he can receive 1 liter IV fluid every other day while there Electrolytes: Monitor/replace per protocol Replete phos and calcium Metabolic acidosis - on oral bicarb 650 mg bid Results from last 7 days Lab Units 07/24/25 0502 07/23/25 0650 07/22/25 0401 07/21/25 0340 07/20/25 0515 07/19/25 0518 07/18/25 0532 SODIUM mmol/L 137 139 139 139 139 140 140 POTASSIUM mmol/L 4.0 3.7 3.6 3.8 4.1 4.2 4.0 CHLORIDE mmol/L 108* 109* 109* 109* 111* 111* 110* CO2 mmol/L 22 21 21 20* 22 25 BUN mg/dL 35* 38* 39* 38* 33* 35* 36* CREATININE mg/dL 1.29 1.15 1.42* 1.37* 1.22 1.37* 1.41* PHOSPHORUS mg/dL 1.9* 2.5 3.5 3.3 2.0* 2.2* 2.4* CALCIUM mg/dL 7.6* 7.7* 7.9* 8.4* 8.4* 8.2* 8.3* Diuretics: none Hypertension: Home Rx: Carvedilol 25 mg bid, hydralazine 100 mg tid, nifedipine 30 mg daily Nephrology consulted, appreciate recommendations H/o stroke: on baby aspirin/ debility PT, OT consulted Will go back to the rehab once medically fit DVT prophylaxis: SCD cuffs, encourage ambulation Heparin subcutaneous prophylaxis Respiratory: Encourage incentive spirometry use every hour DISPO: plan for discharge later today to facility Willam Glaser MD Urology Resident, PGY-3 Cosigned by Jayjay Robin MD at 07/24/2025 3:26 PM EST Associated attestation - Jayjay Robin MD - 07/24/2025 3:26 PM EST By using the attestations below, the signing [...] additional personal documentation from me. Additional Comments: Stable, 2 bowel movements a day. Continue Dificid. IV antibiotics will be finished today. [facility] facility. Immunosuppression reviewed, has been lowered due to recent infections. Will check withfacility about patient receiving 1 L of IV fluids every other day while there. Encourage p.o. hydration as well. * Sera Pettit PTA - 07/23/2025 2:16 PM EST Physical Therapy Physical Therapy Treatment Patient Name: Christal Suh : 1955 Today's Date: 07/23/2025 Problem List[1] Time : 11:03-11:50 07/23/25 1344 PT Last Visit PT Received On 07/23/25 General Subjective Pt has been cleared medically by nursing staff for pt to receive therapy services . Uponentering the room pt was supine in the bed with his covers over his head , pt willing to do some therapy See details of treatment session below : Activity Tolerance Endurance Stage II Precautions Medical Precautions fall risk;bed alarm;IV;isolation (droplet plus precautions and C difficule precautions) Pain Assessment Pain Assessment No/denies pain Cognition Orientation Level Oriented X4 Deficits Fully aware of deficits (but sometimes pt states that his functional deficits are worse than what they are because pt triedtelling chief writer during his treatment session today that chief writer was dreaming after doing pregait activities on thinking pt could walk 10 ft x 1 pt did it 2x) Therapeutic Exercise Therapeutic Exercise Activity 1 While supine AAROM /AROM pt did multiplane movements pt did bridging , hip and knee flexion alternating R LE first followed by L LE while hips and knees are bent on bed and pt had to do hip abduction addduction after this motion of hip and knee flexion 10 reps 1 set . All AAROM /AROM was combined motion patterns . Therapeutic Activity Therapeutic Activity 1 pt had to work on sit to stands from different seat heights 29 seat height , 27 seat height , 22 seat height pt needed mod a x 1 to complete wiht 50% tactile cues to assist pt with coming to stand . Static Standing Balance Static Standing-Balance Support Left upper extremity supported;Right upper extremity supported;Withdevice Static Standing-Level of Assistance Contact guard Static Standing-Comment/Number of Minutes 15% tactile cues for static standing balance Dynamic Standing Balance Dynamic Standing-Balance Support Unilateral upper extremity supported;With device Dynamic Standing-Balance Lateral lean;Forward lean;Reaching for objects;Reaching across midline (reaching for multiple care items in his room pt had to reach for 10 items .) Dynamic Standing Balance-Level of Assistance Contact guard Dynamic Standing-Comments 15% tactile cues for dynamic balance Ambulation Ambulation Yes Ambulation 1 Surface 1 Level tile Device 1 Rolling walker Assistance 1 Minimum assistance;Contact guard;Minimal tactile cues (pt inconsistently performing between 25%-15% tactile cues to help pt with manuevering the rolling walker with turns for dynamic balance) Quality of Gait 1 pt had good stance phase of gait and decreased bilat heel contact during initial contact during stance phase of gait . Comments/Distance (ft) 1 10 ft x 2 Bed Mobility Bed Mobility Yes Bed Mobility 1 Bed Mobility From 1 Supine Bed Mobility Type 1 To Bed Mobility to 1 Short sit (HOB at a 10 degree angle) Level of Assistance 1 Close supervision Bed Mobility 2 Bed Mobility From 2 Short sit Bed Mobility Type 2 To Bed Mobility to 2 Supine Level of Assistance 2 Close supervision Transfers Transfer Yes Transfer 1 Transfer From 1 Sit;Bed Transfer Type 1 To and from Transfer to 1 Stand Technique 1 Sit to stand;Stand to sit Transfer Device 1 rolling walker Transfer Level of Assistance 1 Minimum assistance Trials/Comments 1 25% tactile cues to assist pt with coming to stand up PT Assessment PT Assessment/[employer]IC[employer] TRIMMER Summary pt able to tolerate two 10 ft walks today which is better than last time walks were recorded . Evaluation/Treatment Tolerance Other (Comment) (pt states he cant do anything but he is self limiting and is better able to move and walk than pt realizes .) Plan PT Discharge Recommendations Patient is able to return to prior living environment (pt came from a residential facility.) Goals: Multi-Disciplinary Problems (from Physical Therapy) [facility] Start [facility]: 07[facility]16/25 Goal Start Date Expected End Date End Date Patient to demonstrate the ability to complete all bed mobility independently with HOB progressing to flat 07/16/25 07/30/25 -- Goal Start Date Expected End Date End Date Patient to demonstrate the ability to complete all transfers with Min (A) X1 and use of RW as needed 07/16/25 07/30/25 -- Goal Start Date Expected End Date End Date Patient to demonstrate the ability to ambulate 50 ft with Min (A) X1 and use of RW as appropriate 07/16/25 07/30/25 -- Goal Start Date Expected End Date End Date Patient to participate in BLE exercise to improve strength and limit effects of immobility related to hospital admission. 07/16/25 07/30/25 -- Goal Start Date Expected End Date End Date Patient to demo the ability to maintain standing balance throughout all standing functional tasks with assistive device as needed 07/16/25 07/30/25 -- 07/23/25 1400 6 Clicks (Mobility) Help from another person turning from your back to your side while in a flat bed without using bedrails 3 Help from another person moving from lying on your back to sitting on the side of a flat bed without using bedrails 3 Help from another person moving to and from a bed to a chair (including a wheelchair) 3 Help from another person standing up from a chair using your arms (e.g. wheelchair or bedside chair) 3 Help from another person to walk in hospital room 3 Help from another person climbing 3-5 steps with a railing 1 Mobility 6 Clicks T-Score 16 [1] Patient Active Problem List Diagnosis Hypertensive disorder Diverticular disease Vitamin D deficiency Proteinuria Secondary hyperparathyroidism of renal origin Anemia in chronic kidney disease (CKD) History of DVT (deep vein thrombosis) Renal cyst, left Gout Recurrent sinusitis NSAID long-term use CKD (chronic kidney disease) stage 5, GFR less than 15 ml/min (CMS/HCC) Lung nodule seen on imaging study H/O splenectomy Kidney replaced by transplant GI bleed Diverticulitis Encounter for aftercare following kidney transplant Immunosuppression Benign prostatic hyperplasia with urinary retention Hypophosphatemia Bilateral lower extremity edema Hypocalcemia Hypomagnesemia Diarrhea Immunosuppressive management encounter following kidney transplant Hypoalbuminemia Suspected stroke patient last known to be well more than 2 hours ago Cerebrovascular accident (CVA) ([facility]/HCC) BPH with obstruction/lower urinary tract symptoms BPH with urinary obstruction Urinary retention Gastroesophageal reflux disease without esophagitis S/P TURP Leucocytosis UTI (urinary tract infection) Transplant recipient S/P kidney transplant Cosigned by Daen Dickson, PT at 07/23/2025 3:44 PM EST * SY Dos Santos - 07/23/2025 2:00 PM EST Occupational Therapy Occupational Therapy Treatment Patient Name: Christal Suh : 1955 Today's Date: 07/23/2025 Start Time: 1400 Stop Time: 1442 Time Calculation (min): 42 min OT Therapeutic Procedures Time Entry Self Care/Home Management (ADLs) Time Entry: 30 Therapeutic Activity Time Entry: 12 Problem List Problem List[1] 07/23/25 1400 OT Last Visit OT Received On 07/23/25 General Subjective Why do I need to get out of bed? Session Comments Pt pleasant and cooperative throughout entire therapy session this date. (Upon arrival into room, pt supine in bed. Pt agreeable to OT session with max encouragement.) Treatment Duration (min) 42 Minutes Response to Previous Treatment Patient with no complaints from previous session Family/Caregiver Present No Precautions Medical Precautions fall risk;IV;isolation (COVID & Cdiff isolation) Pain Assessment Pain Assessment No/denies pain Pain Score 0 - No pain Cognition Overall Cognitive Status WFL Arousal/Alertness Appropriate responses to stimuli Orientation Level Oriented X4 Following Commands Follows all commands and directions without difficulty Safety Judgment Decreased awareness of need for assistance Awareness of Errors Assistance required to identify errors made;Assistance required to correct errors made Deficits Fully aware of deficits Attention Span Appears intact Problem Solving Assistance required to identify errors made;Assistance required to generate solutions Communication Intact Cognition Comments Pt required verbal cues throughout session for safety, as well as for initiation, sequencing, and follow through of tasks. General Assessment Hearing Intact Skin Integrity Scabs on LUE, all other visualized skin appears intact. Edema LUE Grooming Grooming Level of Assistance Setup;Close supervision Grooming Where Assessed Edge of bed Grooming Comments Pt completed facial and hair hygiene while seated EOB. Pt required setup as well as close supervision to ensure no LOB as well as to ensure overall pt safety. UE Bathing UE Bathing Level of Assistance Setup;Close supervision UE Bathing Where Assessed Edge of bed UE Bathing Comments Pt completed UE dressing tasks while seated EOB. Pt required setup as well as close supervision to ensure no LOB as well as to ensure overall pt safety. UE Dressing UE Dressing Level of Assistance Minimum assistance UE Dressing Where Assessed Edge of bed UE Dressing Comments To doff and wang fresh gown. Min A for overall gown management. LE Dressing LE Dressing No Functional Standing Tolerance Functional Standing Tolerance Comments Pt deferred transfers/ standing this date. Static Sitting Balance Static Sitting-Balance Support Right upper extremity supported;Left upper extremity supported;Feet supported Static Sitting-Level of Assistance Close supervision Static Sitting-Comment/Number of Minutes Seated EOB Dynamic Sitting Balance Dynamic Sitting-Balance Support Right upper extremity supported;Left upper extremity supported;Unilateral upper extremity supported;No upper extremity supported;Feet supported Dynamic Sitting-Balance Lateral lean;Forward lean;Reaching for objects;Reaching across midline;Trunk control activities (Completing ADL tasks) Dynamic Sitting Balance-Level of Assistance Close supervision Static Standing Balance Static Standing-Comment/Number of Minutes Pt deferred transfers/ standing this date. Dynamic Standing Balance Dynamic Standing-Comments Pt deferred transfers/ standing this date. Bed Mobility Bed Mobility Yes Bed Mobility 1 Bed Mobility From 1 Supine Bed Mobility Type 1 To and from Bed Mobility to 1 Short sit Level of Assistance 1 Close supervision Bed Mobility 2 Bed Mobility From 2 Supine Bed Mobility Type 2 To Bed Mobility to 2 Scooting Level of Assistance 2 Close supervision Bed Mobility Comments 2 Pt able to boost himself up in bed. Transfers Transfer No (Pt deferred transfers this date.) Activity Tolerance Activity Tolerance Comments Pt demonstrated good activity tolerance this date. Pt actively participated in the therapy session and engaged in ADL tasks further indicating improved endurance and overall activity tolerance. Vital signs remained stable throughout the session, with no reports of dizziness, shortness of breath, or adverse changes noted. Therapeutic Activity Therapeutic Activity Time Entry 12 Other Activity Other Activity 1 Pt supine in bed at EOS, call light and tray table in reach, RN informed on pt performance, all needs met. Other Activity 2 RN approved OOB session this date. OT Assessment OT Impairments Decreased ADL status;Decreased endurance;Decreased functional mobility;Decreased safe judgment during ADL;Decreased IADLs OT Assessment/MAIL LIST PROCESSOR Summary Patient is progressing appropriately toward established therapy goals. The patient demonstrated good safety awareness and insight into current deficits during today???s session. Continued occupational therapy services would benefit pt to further improve ADL/IADL performance, enhance safety awareness, increase trunk control, and improve activity tolerance during functional tasks in order to support the patient???s maximum functional potential. Prognosis Good Evaluation/Treatment Tolerance Patient tolerated treatment well Medical Staff Made Aware Yes Strengths Support and attitude of living partners OT Education/Comments Patient was provided education on bed mobility, the OT plan of care, the importance of participating in therapy, endurance and activity tolerance, fall prevention strategies, compensatory strategies, safety precautions, dressing techniques, and the use of adaptive equipment, with good understanding demonstrated. Plan Level of assist 1 assist Treatment Interventions ADL retraining;Endurance training;Neuromuscular reeducation;Functional transfer training;Patient/family training;Compensatory technique education;Equipment evaluation/education OT Plan Skilled OT OT Frequency 4 times per week OT Discharge Recommendations Patient is able to return to prior living environment (Pt admitted from SNF) Equipment Recommended other (TBA) OT - Discharge Recommendations Placed Yes Outcome Assessments 07/23/25 1400 AM-PAC 6 Clicks Putting on and taking off regular lower body clothing? 3 Bathing(Including washing,rinsing,drying)? 3 Toileting, which includes using the toilet,bedpan,or urinal? 2 Putting on and taking off regular upper body clothing? 3 Taking care of personal grooming such as brushing teeth? 3 Eating meals? 4 Total Score OT [facility] 18 OT Goals: Multi-Disciplinary Problems (from Occupational Therapy) Active Problems [facility] Start Date: 07/16/25 Goal Start Date Expected End Date End Date Patient will perform functional transfers and functional mobility with SBA and use of DME PRN. 07/16/25 07/30/25 -- Goal Start Date Expected End Date End Date Patient will complete UB/LB ADLs with SUP A using AE/DME PRN 07/16/25 07/30/25 -- Goal Start Date Expected End Date End Date Patient will perform toilet transfer and toileting tasks with SBA to improve IND with ADLs 07/16/2512/29/25 -- Goal Start Date Expected End Date End Date Patient will complete basic grooming tasks standing at sink with SUP A to improve participation in ADLs. 07/16/25 07/30/25 -- Goal Start Date Expected End Date End Date Patient will verbalize and demonstrate proper use of 3+ energy conservation/work simplification techniques for increased ADL participation. 07/16/25 07/30/25 -- Goal Start Date Expected End Date End Date Patient will demonstrate 5+ minute dynamic standing balance task with SUP A and use of least restrictive device. 07/16/25 07/30/25 -- Rosa DAN/Tuan Time In: 1400 Time Out: 1442 Total Time: 42 Minutes Total Units: 3 Units (2 SC, 1 TA) [1] Patient Active Problem List Diagnosis Hypertensive disorder Diverticular disease Vitamin D deficiency Proteinuria Secondary hyperparathyroidism of renal origin Anemia in chronic kidney disease (CKD) History of DVT (deep vein thrombosis) Renal cyst, left Gout Recurrent sinusitis NSAID long-term use CKD (chronic kidney disease) stage 5, GFR less than 15 ml/min (CMS/HCC) Lung nodule seen on imaging study H/O splenectomy Kidney replaced by transplant GI bleed Diverticulitis Encounter for aftercare following kidney transplant Immunosuppression Benign prostatic hyperplasia with urinary retention Hypophosphatemia Bilateral lower extremity edema Hypocalcemia Hypomagnesemia Diarrhea Immunosuppressive management encounter following kidney transplant Hypoalbuminemia Suspected stroke patient last known to be well more than 2 hours ago Cerebrovascular accident (CVA) (CMS/HCC) BPH with obstruction/lower urinary tract symptoms BPH with urinary obstruction Urinary retention Gastroesophageal reflux disease without esophagitis S/P TURP Leucocytosis UTI (urinary tract infection) Transplant recipient S/P kidney transplant Cosigned by Ruth Rodriguez OT at 07/23/2025 3:38 PM EST * Anthony Stern MD - 07/23/2025 12:41 PM EST Images from the original note were not included. Nephrology Progress Note Patient : Christal Suh; 69 y.o. Location: [facility]/3176-01 Attending: Jayjay Robin MD Admit Date: 07/13/2025 Hospital Day: 10 Reason for Consult: Medical and immunosuppressive management in renal transplant patient Subjective: Interval history: 07/23/25 Patient was evaluated at bedside. No acute events reported overnight. Creatinine has returned to normal at 1.15. Mild hypomagnesemia at 1.5, will replace. Serum bicarbonate at 21 w/ AG of 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 07/22/25 Patient was seen and examined at bedside today morning no unexpected acute events reported overnight. Patient made around 750 ml of urine over 24 hours. Will continue Iv sod bicarb. Will continue to monitor kidney function. 07/21/25 Patient was seen and examined at bedside today morning. Patient spiked temp overnight. He had around 1300 ml of urine over 24 hour. His S. Cr is 137 and BUN 38. 07/20/25 Patient seen and evaluated at bedside. Patient continuing to have good UOP with 1.5 L in the last 24 hours. Labs continuing to improve with S Cr 1.22 (1.37) and BUN 33 (35). Electrolytes WNL. No acute concerns from renal perspective. Subjective History of present illness: Christal Suh is a 69 y.o. 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 He is Covid-19 positive and positive for C Diff. Patient has not been eating or drinking well. Notably, he was recently admitted to [facility] for a pseudomonas UTI from 05/29 to 06/15. Patient was evaluated at bedside. Patient is angry and intermittently cooperative with exam. After prolonged discussion, patient is frustrated with the number of people that keep coming into his rooms and he does not like that there are different doctors from various services asking him the same qu estions. His kidney function actually looks to be improving w/ creatinine of 1.19 today and stableelectrolytes. Objective Objective: Input/Output: Intake/Output Summary (Last 24 hours) at 07/23/2025 1241 Last data filed at 07/23/2025 1114 Gross per 24 hour Intake 2232.5 ml Output 550 ml Net 1682.5 ml I/O last 3 completed shifts: In: 2632.5 (32.5 mL/kg) [P.O.:1340; I.V.:1092.5 (13.5 mL/kg); IV Piggyback:200] Out: 550 (6.8 mL/kg) [Urine:550 (0.2 mL/kg/hr)] Weight: 81.1 kg Vital signs: Temperature: Temp: 36.6 ??C (97.9 ??F) TMax: Temp (24hrs), Av.7 ??C (98.1 ??F), Min:36.4 ??C (97.5 ??F), Max:37.3 ??C (99.1 ??F) Respirations: Resp: 19 Pulse: Heart Rate: 76 BP: BP: 128/74 BP Range: Systolic (24hrs), Av , Min:106 , Max:128 Diastolic (24hrs), Av, Min:63, Max:84 Wt Readings from Last 3 Encounters: 07/23/25 81.1 kg (178 lb 12.7 oz) 06/15/25 79 kg (174 lb 2.6 oz) 05/29/25 78.3 kg (172 lb 9.6 oz) Physical Exam Vitals reviewed. Constitutional: General: He is not in acute distress. Appearance: Normal appearance. HENT: Head: Normocephalic and atraumatic. Cardiovascular: Rate and Rhythm: Normal rate and regular rhythm. Pulmonary: Effort: Pulmonary effort is normal. No respiratory distress. Breath sounds: Normal breath sounds. Abdominal: General: Abdomen is flat. Palpations: Abdomen is soft. Skin: General: Skin is warm and dry. Neurological: General: No focal deficit present. Mental Status: He is alert and oriented to person, place, and time. Psychiatric: Mood and Affect: Mood normal. Behavior: Behavior normal. Current Medications: Scheduled Meds: [Held by provider] azaTHIOprine, 50 mg, oral, Daily calcium carbonate-vitamin D3, 1 tablet, oral, Daily carvedilol, 25 mg, oral, BID with meals cefepime, 2 g, intravenous, q8h cholecalciferol, 5,000 Units, oral, Daily DAPTOmycin (Cubicin) 650 mg in sodium chloride 0.9 % 50 mL IVPB, 8 mg/kg, intravenous, q24h famotidine, 20 mg, oral, Nightly finasteride, 5 mg, oral, Daily heparin (porcine), 5,000 Units, subcutaneous, BID hydrALAZINE, 100 mg, oral, TID magnesium sulfate, 1 g, intravenous, q1h NIFEdipine XL, 30 mg, oral, Daily Oxygen Therapy, , inhalation, Continuous pantoprazole, 40 mg, oral, Daily before breakfast predniSONE, 5 mg, oral, Daily sodium bicarbonate, 650 mg, oral, BID sulfamethoxazole-trimethoprim, 160 mg of trimethoprim, oral, Once per day on Wednesday tacrolimus ER, 4 mg, oral, Daily tamsulosin, 0.8 mg, oral, Daily Continuous Infusions: sodium bicarbonate 75 mEq in sodium chloride 0.45 % 1,000 mL infusion, 75 mL/hr PRN Meds: PRN medications: acetaminophen, albuterol, melatonin, ondansetron ODT OR ondansetron,Insert peripheral IV AND Saline lock IV AND sodium chloride Outpatient Medications: Medication Documentation Review Audit Reviewed by Adrienne Brown RN (Registered Nurse) on 07/13/25 at 2139 Medication Order Taking? Sig Documenting Provider Last Dose Status acetaminophen (Tylenol) 325 mg tablet [id number] Take 650 mg by mouth every 6 (six) hours if needed for mild pain (1-3 pain score) or fever greater than or equal to 38 degrees Celsius. Historical Provider, Active azaTHIOprine (Imuran) 75 mg tablet [id number] No Take 1 tablet (75 mg) by mouth in the morning for 96doses. Patient not taking: Reported on 07/13/2025 Grazyna Briseno CNP Not Taking Active calcium carbonate (Tums) 200 mg calcium (500 mg) chewable tablet [id number] Chew 3 tablets (1,500 mg)two times daily. Without food Patient taking differently: Chew 2 tablets two times daily. Without food Jayjay Robin MD Active calcium carbonate-vitamin D3 500 mg-5 mcg (200 unit) tablet [id number] Take 2 tablets by mouth two times daily. Patient taking differently: Take 1 tablet by mouth at bedtime. Grazyna Briseno CNP Active carvedilol (Coreg) 25 mg tablet [id number] 25 mg with breakfast and with evening meal. Cristal Vazquez MD Active cephalexin (Keflex) 500 mg capsule [id number] Take 500 mg by mouth four times daily. FOR INFECTION FOR 10 DAYS(07/13 - 07/23) Cristal Vazquez MD Active docusate sodium (Colace) 100 mg capsule [id number] Take 100 mg by mouth two times daily. Cristal Vazquez MD Active famotidine (Pepcid) 20 mg tablet [id number] Take 1 tablet (20 mg) by mouth at bedtime. Jayjay Robin MD Active finasteride (Proscar) 5 mg tablet [id number] Take 1 tablet (5 mg) by mouth in the morning. Do not crush, chew, or split. Jayjay Robin MD Active folic acid (Folvite) 1 mg tablet [id number] Take 1 tablet (1 mg) by mouth in the morning for 94 doses. Grazyna Briseno CNP Active guaiFENesin (Mucinex) 600 mg 12 hr tablet [id number] Take 1,200 mg by mouth two times daily. Do not crush, chew, or split. Cristal Vazquez MD Active hydrALAZINE (Apresoline) 100 mg tablet [id number] Take 1 tablet (100 mg) by mouth three times daily. Wendy Lomeli MD Active ipratropium-albuteroL (Duo-Neb) 0.5-2.5 mg/3 mL nebulizer solution [id number] Take 3 mL by nebulization every 6 (six) hours if needed for wheezing or shortness of breath. Cristal Vazquez MD Active magnesium glycinate 100 mg magnesium capsule [id number] Take 3 capsules (300 mg) by mouth three timesdaily. Jayjay Robin MD Active NIFEdipine XL (Procardia XL) 30 mg 24 hr tablet [id number] Take 1 tablet (30 mg) by mouth in the morning. Do not crush, chew, or split. Jayjay Robin MD Active nystatin (Mycostatin) 100,000 unit/mL suspension [id number] Take 5 mL (500,000 Units) by mouth four times daily. Swish and swallow Wendy Lomeli MD Active ondansetron (Zofran) 4 mg tablet [id number] Take 4 mg by mouth every 4 (four) hours if needed for nausea or vomiting. Historical ProviderMD Active pantoprazole (ProtoNix) 40 mg EC tablet [id number] Take 1 tablet (40 mg) by mouth before breakfast. Do not crush, chew, or split. Delano Klein MD Active predniSONE (Deltasone) 10 mg tablet [id number] Take 1 tablet (10 mg) by mouth in the morning. Jayjay Robin MD Active sod phos di, mono-K phos mono (K Phos Neutral) tablet [id number] Take 1 tablet by mouth two times daily. Jayjay Robin MD Active sulfamethoxazole-trimethoprim (Bactrim DS) 800-160 mg tablet [id number] Take 1 tablet by mouth 3 (three) times a week. On Wednesday, Wednesday, and Wednesday Wendy Lomeli MD Active tacrolimus ER (Envarsus XR) 4 mg tablet ER [id number] Take 1 tablet (4 mg) by mouth in the morning. Script total 8.5 mg daily Patient taking differently: Take 4 mg by mouth in the morning. 4 mg daily Wendy Lomeli MD Active tamsulosin (Flomax) 0.4 mg 24 hr capsule [id number] Take 2 capsules (0.8 mg) by mouth in the morning.Jayjay Robin MD Active valGANciclovir (Valcyte) 450 mg tablet [id number] Take 1 tablet (450 mg) by mouth in the morning. As directed. Wendy Lomeli MD Active vancomycin (Vancocin) 125 mg capsule [id number] Take 125 mg by mouth 2 times daily. Historical Provider, Active Labs: I have reviewed the patient's most recent labs as listed below: Chemistry: Lab Results Component Value Date NA 139 07/23/2025 K 3.7 07/23/2025 CL 109 (H) 07/23/2025 CO2 21 07/23/2025 ANIONGAP 13 07/23/2025 BUN 38 (H) 07/23/2025 CREATININE 1.15 07/23/2025 EGFR 68.5 07/23/2025 CKTOTAL <10.0 (L) 07/20/2025 CALCIUM 7.7 (L) 07/23/2025 MG 1.5 (L) 07/23/2025 PHOS 2.5 07/23/2025 PTH 45 07/18/2025 VITD25 16.0 (L) 07/18/2025 ALBUMIN 2.9 (L) 07/23/2025 PROT 4.5 (L) 07/23/2025 AST 11 (L) 07/23/2025 ALT 12 07/23/2025 BILITOT 0.3 07/23/2025 BILIDIR 0.1 05/29/2025 ALKPHOS 73 07/23/2025 Hematology & Iron studies: Lab Results Component Value Date WBC 9.50 07/23/2025 HGB 8.0 (L) 07/23/2025 HCT 24.4 (L) 07/23/2025 MCV 100.8 (H) 07/23/2025 PLT 199 07/23/2025 IRON 36 (L) 07/15/2025 TIBC <91 (L) 07/15/2025 UIBC <55.0 (L) 07/15/2025 IRONSAT 07/15/2025 Comment: Unable to Calculate FERRITIN 437.0 (H) 07/15/2025 Urine chemistry Lab Results Component Value Date PROTUR Negative 07/20/2025 PROTUR 25.6 07/17/2025 CREATUR 53.0 07/17/2025 Urinalysis & Microscopy: Lab Results Component Value Date COLORU Yellow 07/20/2025 CLARITYU Cloudy (A) 07/20/2025 SPECGRAVU <1.005 (L) 07/20/2025 BENNETT 6.0 07/20/2025 PROTUR Negative 07/20/2025 LEUKOCYTESU Large (A) 07/20/2025 NITRITEU Negative 07/20/2025 GLUCOSEU Normal 07/20/2025 KETONESU Negative 07/20/2025 UROBILINOGEN Normal 07/20/2025 BLOODU Negative 07/20/2025 RBCU None Seen 07/20/2025 WBCU >50 (A) 07/20/2025 SQUAMEPIU None Seen 07/20/2025 MUCUSU Occasional 07/20/2025 Urine Eosinophils: No components found for: UEOS Serology & Other labs: Lab Results Component Value Date HEPCAB Nonreactive 04/01/2025 HEPBSAG Nonreactive 04/01/2025 BNP: No results found for: BNP JOSELO: No results found for: JOSELO SPEP: Lab Results Component Value Date PROT 4.5 (L) 07/23/2025 UPEP: No components found for: LABPE C3: No results found for: C3 C4: No results found for: C4 MPO ANCA: No components found for: MPO PR3 ANCA: No components found for: PR3 Anti-GBM: No components found for: GBMABIGG Hep BsAg: No results found for: HEPBSAG Hep C AB: No results found for: HEPCAB Radiology: CT abdomen pelvis wo IV contrast Narrative: HISTORY: A 69-year-old male with the history of the left lower quadrant abdominal pain. Diverticulitis is suspected. EXAM/TECHNIQUE: Multidetector spiral CT scan of abdomen and pelvis is performed without intravenous contrast administration. Multiplanar reconstruction images are reformatted. All CT scans at this facility use dose modulation, iterative reconstruction, and/or weight based dosing when appropriate to reduce radiation dose to as low as reasonably achievable. COMPARISON: Comparison is made with the CT scan of the abdomen and pelvis of 05/31/2025. FINDINGS: There are bilateral small pleural effusions and bibasilar atelectasis. Heart appears enlarged. There is a pericardial effusion. Liver is normal in size and attenuation. Spleen is not visualized suggestive of prior splenectomy with multiple splenic tissues in the left upper abdomen. Pancreas is unremarkable. Gallbladder is normal. No biliary ductal dilatation is identified. Both [place] kidneys are small and atrophic. There is no evidence of hydronephrosis in the [place] kidneys. There is a stable left renal cyst. Urinary bladder is unremarkable. There is a transplant kidney in the right pelvic fossa. There is probable hydronephrosis in the transplant kidney. There is a 7 mm hypodense abnormality in the transplant kidney. There is a lobulated fluid collection inferior to the transplant kidney. It measures 7 x 5.4 x 4.5 cm in size. This could be a lymphocele. Dilated ureter cannot be excluded. Bowel gas pattern is nonobstructive. There is anastomosis in the pelvis. There is a diverticular disease of the descending colon. No evidence of diverticulitis. Moderate amount of feces is seen in the colon. There is no evidence of ascites fluid. Vascular calcifications are seen. There is generalized edema. There is a compression deformity of the L4 vertebral body. Degenerative changes are seen in the thoracolumbar spine and both hip joints Impression: * There is a diverticular disease of the descending colon. No CT scan evidence of diverticulitis. * Nonobstructive bowel gas pattern with moderate amount of feces. 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 Probable hydronephrosis is suspected. There is a 7 mm hypodense abnormality in the transplant kidney. There is an approximately 7 x 5.4 x 4.5 cm lobulated fluid collection inferior to the transplant kidney in the perinephric region. This abnormality was present on the prior study. This could be a lymphocele, dilated ureter or others cyst. A clinical correlation is suggested. Renal transplant ultrasound examination would be helpful for further evaluation. * Multifocal splenic tissues in the left upper abdomen. * Atrophic both [place] kidneys with the left renal cyst. * Bilateral small pleural effusions and bibasilar atelectasis. * Pericardial effusion. Electronically signed: Rosalino Rueda. Assessment: Acute kidney injury. Serum creatinine 1.1 today. History of ESRD status post DDRT (03/31/2025) EBV +/+ CMV -/+ Need for immunosuppression Need for antimicrobial prophylaxis COVID pneumonia Clostridium difficile infection on fidaxomicin Hypomagnesemia Magnesium was 1.5 Hypocalcemia Calcium was 7.7 today. Vitamin D deficiency: Vitamin D level 16, PTH 45. On calcium/vitamin D supplement. Fever with Leukocytosis Pseudomonas UTI Plan: Immunosuppression Tacrolimus 4 mg daily. Monitor Tacrolimus levels to adjust dose. Prednisone 10 mg daily Imuran 75 mg daily (on hold) Antimicrobial prophylaxis Bactrim DS M/W/F Nystatin swish QID Valcyte discontinued due to being more than 3 month post transplant Continue Iv sod bicarb 75 mEq with 0.45% NS while admitted. Recommend discharging on NaHCO3 [id number] mg twice daily. Monitor lymphocele w/ serial imaging. Continue Mg replacement. Continue to monitor Tac Continue antibiotics per ID. Discussed with ID. Monitor I/Os, trend creatinine Monitor electrolytes, replete as needed Avoid nephrotoxic agents Thank you for the consultation. Please do not hesitate to contact us for any questions/concerns. Mónica continue to follow along with you. Anthony Stern MD, PhD Internal Medicine Resident, PGY-3 [facility] Cosigned by Delano Klein MD at 07/23/2025 3:11 PM EST Associated attestation - Delano Klein MD - 07/23/2025 3:11 PM EST I personally saw and examined the patient on the same date of service as resident/fellow Anthony Stern MD. I discussed the findings and therapeutic plan with the Anthony Stern MD. I agree with the documentation, except for any edits/updates below. Patient with history of renal transplant who is currently noted to have COVID-19 pneumonia and C. difficile infection. Overall clinically improving. Renal function is stable. Continue to hold Imuran and continue with tacrolimus and prednisone 10 mg daily. Continue with current prophylaxis medications. Continue with gentle hydration with bicarb for now. Would recommend to discharge on sodium bicarb tablets with repeat labs within 1 week on discharge. Continue to monitor kidney function and electrolytes. Avoid nephrotoxic medications. Delano Klein MD Faculty, Division of Nephrology, Department of Medicine, [facility]. * Willam Glaser MD - 07/23/2025 12:07 PM EST Images from the original note were not included. Department of Urologic Surgery & Renal Transplantation DAILY PROGRESS NOTE Background: Christal Suh is a 69 y.o. year old male with a PMH of ESRD 2/2 HTN now s/p DDRT, earlier readmission for LLQ pain from diverticulitis and recent ischemic stroke and more recent TURP for urinary retention. He is admitted with FTT and reportedly COVID but no sifnificant symptoms. Procedures/Operations: - 05/11/25 - Rabets (Uro): TURP - 05/01/25 - Clar (Uro): Bedside cysto, removal of stent - 03/31/25 - Lobito (Transplant): DDRT Subjective/Interval Summary: Reports he feels okay, af/vss. Still notes some abdominal pain BM stable He is eating well without issues. CT completed yesterday does show a fluid collection, likely lymphocele, this has been sampled before and not infectious. No burning with urination. Denies shortness of breath. He denies recent ambulation. Objective: Vitals: Vitals: 07/23/25 0853 BP: 128/74 Pulse: 76 Resp: 19 Temp: 36.6 ??C (97.9 ??F) SpO2: I/O last 3 completed shifts: In: 2632.5 (32.5 mL/kg) [P.O.:1340; I.V.:1092.5 (13.5 mL/kg); IV Piggyback:200] Out: 550 (6.8 mL/kg) [Urine:550 (0.2 mL/kg/hr)] Weight: 81.1 kg I/O this shift: In: 250 [I.V.:100; IV Piggyback:150] Out: - Gen: Alert & oriented x3, no acute distress, not ill-appearing Neuro: Grossly intact, no obvious CN defects CV: Regular rate, radial pulses present Resp: Breathing comfortably on RA, no audible wheezing or accessory muscle use Abd: Soft, some Left groin pain, no tenderness, Non-distended, well healed RLQ incision : no catheterization or external collection devices MSK: Moving all extremities, warm and well perfused, appropriate ROM, no edema Labs: Results from last 7 days Lab Units 07/23/25 0650 07/22/25 0401 07/21/25 0340 07/20/25 0515 07/19/25 0518 WBC AUTO 10*3/uL 9.50 12.06* 19.07* 21.21* 13.15* HEMOGLOBIN g/dL 8.0* 8.0* 8.9* 9.0* 8.8* HEMATOCRIT % 24.4* 24.2* 27.2* 28.1* 27.3* PLATELETS AUTO 10*3/uL 199 165 160 179 177 Results from last 7 days Lab Units 07/23/25 0650 07/22/25 0401 07/21/25 0340 07/20/25 0515 07/19/25 0518 SODIUM mmol/L 139 139 139 139 140 POTASSIUM mmol/L 3.7 3.6 3.8 4.1 4.2 CO2 mmol/L 21 21 21 20* 22 BUN mg/dL 38* 39* 38* 33* 35* CREATININE mg/dL 1.15 1.42* 1.37* 1.22 1.37* Medications: [Held by provider] azaTHIOprine, 50 mg, oral, Daily calcium carbonate-vitamin D3, 1 tablet, oral, Daily carvedilol, 25 mg, oral, BID with meals cefepime, 2 g, intravenous, q8h cholecalciferol, 5,000 Units, oral, Daily DAPTOmycin (Cubicin) 650 mg in sodium chloride 0.9 % 50 mL IVPB, 8 mg/kg, intravenous, q24h famotidine, 20 mg, oral, Nightly finasteride, 5 mg, oral, Daily heparin (porcine), 5,000 Units, subcutaneous, BID hydrALAZINE, 100 mg, oral, TID magnesium sulfate, 1 g, intravenous, q1h NIFEdipine XL, 30 mg, oral, Daily Oxygen Therapy, , inhalation, Continuous pantoprazole, 40 mg, oral, Daily before breakfast predniSONE, 5 mg, oral, Daily sodium bicarbonate, 650 mg, oral, BID sulfamethoxazole-trimethoprim, 160 mg of trimethoprim, oral, Once per day on Wednesday tacrolimus ER, 4 mg, oral, Daily tamsulosin, 0.8 mg, oral, Daily sodium bicarbonate 75 mEq in sodium chloride 0.45 % 1,000 mL infusion, 75 mL/hr Imaging: CT abdomen pelvis wo IV contrast Narrative: HISTORY: A 69-year-old male with the history of the left lower quadrant abdominal pain. Diverticulitis is suspected. EXAM/TECHNIQUE: Multidetector spiral CT scan of abdomen and pelvis is performed without intravenous contrast administration. Multiplanar reconstruction images are reformatted. All CT scans at this facility use dose modulation, iterative reconstruction, and/or weight based dosing when appropriate to reduce radiation dose to as low as reasonably achievable. COMPARISON: Comparison is made with the CT scan of the abdomen and pelvis of 05/31/2025. FINDINGS: There are bilateral small pleural effusions and bibasilar atelectasis. Heart appears enlarged. There is a pericardial effusion. Liver is normal in size and attenuation. Spleen is not visualized suggestive of prior splenectomy with multiple splenic tissues in the left upper abdomen. Pancreas is unremarkable. Gallbladder is normal. No biliary ductal dilatation is identified. Both [place] kidneys are small and atrophic. There is no evidence of hydronephrosis in the [place] kidneys. There is a stable left renal cyst. Urinary bladder is unremarkable. There is a transplant kidney in the right pelvic fossa. There is probable hydronephrosis in the transplant kidney. There is a 7 mm hypodense abnormality in the transplant kidney. There is a lobulated fluid collection inferior to the transplant kidney. It measures 7 x 5.4 x 4.5 cm in size. This could be a lymphocele. Dilated ureter cannot be excluded. Bowel gas pattern is nonobstructive. There is anastomosis in the pelvis. There is a diverticular disease of the descending colon. No evidence of diverticulitis. Moderate amount of feces is seen in the colon. There is no evidence of ascites fluid. Vascular calcifications are seen. There is generalized edema. There is a compression deformity of the L4 vertebral body. Degenerative changes are seen in the thoracolumbar spine and both hip joints Impression: * There is a diverticular disease of the descending colon. No CT scan evidence of diverticulitis. * Nonobstructive bowel gas pattern with moderate amount of feces. 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 Probable hydronephrosis is suspected. There is a 7 mm hypodense abnormality in the transplant kidney. There is an approximately 7 x 5.4 x 4.5 cm lobulated fluid collection inferior to the transplant kidney in the perinephric region. This abnormality was present on the prior study. This could be a lymphocele, dilated ureter or others cyst. A clinical correlation is suggested. Renal transplant ultrasound examination would be helpful for further evaluation. * Multifocal splenic tissues in the left upper abdomen. * Atrophic both [place] kidneys with the left renal cyst. * Bilateral small pleural effusions and bibasilar atelectasis. * Pericardial effusion. Electronically signed: Rosalino Rueda. Assessment: Christal Suh is a 69 y.o. male with a PMH of ESRD 2/2 HTN now s/p DDRT, and history of ischemic stroke admitted for weakness and failure to thrive. Active Problems: S/p DDRT Need for immunosuppression H/o diverticulitis H/o stroke BPH with retention S/p TURP FTT COVID-19 C Diff diarrhea Severe protein-calorie malnutrition Urine Culture- Pseudomonas aeruginosa Leukocytosis Fever Plan: Diet: Regular, patient has severe PCM Nutritional supplements- Boost glucose control Patient would like these at his facility at discharge. Reports he does not enjoy the meals offered at his facility Dietary consulted Severe protein-calorie malnutrition Had edema at admission, Albumin infusion TiD > albumin, resolved Nutrition consulted Will obtain calorie count, eating better today, says he doesn't like the food at the rehab, that's why he has not been eating well Boost Tid, encouraged to eat better, eating okay, drinking boost shakes. Improved now, eating much better encourage protein shakes tid Immunosuppression: Maintenance: Imuran 50mg daily,held now due to fever/infection Tacrolimus 4mg daily, follow levels and adjust, level 6.5 today, no changes, will switch to prografIR 2mg twice daily on discharge to accommodate facility needs. Reduced Pred from 10 to 5 mg daily due to fever/infection Immunoprophylaxis: Bactrim M/W/F Nystatin Swish qid Valcyte 450 mg once daily- discontinued due to being more than 3 months post transplant Infection Recent C Diff, COVID-19 Consulted ID, appreciate recommendations No respiratory symptoms, did require Bipap on 07/15, on room air now, will continue to monitor Switched to dificid due to worsening diarrhea. 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 No acute recommendations at this time. Please obtain 2x PVRs Results from last 7 days Lab Units 07/23/25 0650 07/22/25 0401 07/21/25 0340 07/20/25 0515 07/19/25 0518 07/18/25 0532 07/17/25 0501 CREATININE mg/dL 1.15 1.42* 1.37* 1.22 1.37* 1.41* 1.63* BUN mg/dL 38* 39* 38* 33* 35* 36* 41* Anemia of chronic kidney disease: Hgb 8.0 Aranesp weekly Results from last 7 days Lab Units 07/23/25 0650 07/22/25 0401 07/21/25 0340 07/20/25 0515 07/19/25 0518 07/18/25 0532 07/17/25 0501 WBC AUTO 10*3/uL 9.50 12.06* 19.07* 21.21* 13.15* 13.61* 13.62* HEMOGLOBIN g/dL 8.0* 8.0* 8.9* 9.0* 8.8* 8.9* 8.6* PLATELETS AUTO 10*3/uL 199 165 160 179 177 173 181 Fluid/Electrolytes: IVF: start @ 75 ml/hr due to MEDARDO from possible dehydration Electrolytes: Monitor/replace per protocol Replete phos and calcium Metabolic acidosis - on oral bicarb 650 mg bid Results from last 7 days Lab Units 07/23/25 0650 07/22/25 0401 07/21/25 0340 07/20/25 0507/19/25 0518 07/18/25 0532 07/17/25 0501 SODIUM mmol/L 139 139 139 139 140 140 141 POTASSIUM mmol/L 3.7 3.6 3.8 4.1 4.2 4.0 3.9 CHLORIDE mmol/L 109* 109* 109* 111* 111* 110* 108* CO2 mmol/L BUN mg/dL 38* 39* 38* 33* 35* 36* 41* CREATININE mg/dL 1.15 1.42* 1.37* 1.22 1.37* 1.41* 1.63* PHOSPHORUS mg/dL 2.5 3.5 3.3 2.0* 2.2* 2.4* 2.5 CALCIUM mg/dL 7.7* 7.9* 8.4* 8.4* 8.2* 8.3* 8.4* Diuretics: none Hypertension: Home Rx: Carvedilol 25 mg bid, hydralazine 100 mg tid, nifedipine 30 mg daily Nephrology consulted, appreciate recommendations H/o stroke: on baby aspirin/ debility PT, OT consulted Will go back to the rehab once medically fit DVT prophylaxis: SCD cuffs, encourage ambulation Heparin subcutaneous prophylaxis Respiratory: Encourage incentive spirometry use every hour DISPO: Not appropriate for Discharge Jamison Guaman MD Urology Resident, PGY-3 Cosigned by Jayjay Robin MD at 07/23/2025 3:03 PM EST Associated attestation - Jayjay Robin MD - 07/23/2025 3:03 PM EST By using the attestations below, the signing [...] additional personal documentation from me. Additional Comments: Leukocytosis resolved. Still has about 2 bowel movements a day. Immunosuppression reviewed. Weekly Aranesp for anemia. Eating well, albumin still low. Urine culture from 07/20/2025 shows MDRO Pseudomonas, discussed with ID about antibiotic plan. The patient is asymptomatic without urinary symptoms c urrently. * Jonny Merino MD - 07/23/2025 8:00 AM EST Images from the original note were not included. Infectious Diseases - Inpatient daily Progress Note - Patient name: Christal Suh Patient Today's Date and Time: 07/23/2025, 12:30 PM Admission Date: 07/13/2025 Assessment/Plan Impression: Fever of Unclear Etiology / Persistent Leukocytosis / Pseudomonas Bacteruria Tmax of 38.8 on 07/20 with WBC elevated to 21. Typical fever trends spontaneously would indicate a bacteremia; however, blood cultures so far negative. There are really no other great explanations from an ID perspective to explain this fever. He has some superficial wounds on his extremities that are non- infected. He does have pseudomonas in urine culture, but he is fairly asymptomatic. CT of the abdomen done shows fluid collection inferior to the transplanted kidney thought to be a lymphocele. Defer to transplant on utility of draining fluid. If drained, would send for culutre and gram stain. For now, we will continue IV Dapto + Cefepime and tailor appropriately. Hx of C.Diff Diarrhea Hx of C.Diff s/p treatment for 10 days. Treatment for C.Diff ended 07/18 (patient reports compliancy before hospitalization) COVID 19 Positive Test COVID antigen test here positive. CXR and lack of symptoms suggest against active symptomatic COVIDinfection Would continue airborne precautions. No indications for therapy at this time. HX of DDRT EBV +/+ CMV -/+ Management of graft per transplant team. Can continue tacrolimus + prednisone ABX PTX per transplant team Recommendations: Recommend following ABX regimen: IV Cefepime 2g q8h for total of 5 days IV Daptomycin 650mg for total of 5 days Continue TMP-SMX three times per week Would keep patient in airborne precautions for potential recent COVID test Transplant regimen per primary: Tacrolimus 4mg daily + Prednisone 5mg daily ID to sign off at this time Subjective Interval history: No new issues. Patient has no acute complaints at this time. Patient doing well on current ABX regimen. Objective Physical Examination: BP 128/74 (BP Location: Right arm, Patient Position: Lying) Pulse 76 Temp 36.6 ??C (97.9 ??F) (Temporal) Resp 19 Ht 1.854 m (6' 0.99 ) Wt 81.1 kg (178 lb 12.7 oz) SpO2 100% BMI 23.59 kg/m?? Temperature Range: Temp: 36.6 ??C (97.9 ??F) Temp Av.7 ??C (98.1 ??F) Min: 36.4 ??C (97.5 ??F)Max: 37.3 ??C (99.1 ??F) General Appearance: Awake, alert, and in no apparent distress, nontoxic Eyes: Sclera anicteric; conjunctivae pink ENT: Oropharynx clear, without erythema, exudate, no thrush. Neck: Supple, without lymphadenopathy. Pulmonary/Chest: Clear to auscultation, without wheezes, rales, no rhonchi Cardiovascular: Regular rate and rhythm without murmurs Abdomen: soft, no palpable masses no organomegaly; normal bowel sounds. Scar present in RLQ abdomen. Mild tenderness in abdomen. Extremities: No cyanosis, edema, no joint effusions. Mild superficial wounds present on extremities. No evidence of line infection. Neurologic: Alert and oriented x 3, nonfocal; strength and sensation grossly normal Skin: No rash no lesions. No pallor Laboratory data: I have independently reviewed the following labs: Results from last 7 days Lab Units 07/23/25 0650 07/22/25 0401 07/21/25 0340 WBC AUTO 10*3/uL 9.50 12.06* 19.07* HEMOGLOBIN g/dL 8.0* 8.0* 8.9* HEMATOCRIT % 24.4* 24.2* 27.2* MCV fL 100.8* 101.7* 102.6* PLATELETS AUTO 10*3/uL 199 165 160 Results from last 7 days Lab Units 07/23/25 0650 07/22/25 0401 07/21/25 0340 POTASSIUM mmol/L 3.7 3.6 3.8 CHLORIDE mmol/L 109* 109* 109* CO2 mmol/L BUN mg/dL 38* 39* 38* CREATININE mg/dL 1.15 1.42* 1.37* GLUCOSE mg/dL 137* 160* 148* CALCIUM mg/dL 7.7* 7.9* 8.4* ALK PHOS U/L 73 81 91 ALT U/L 12 13 16 AST U/L 11* 11* 12* No lab exists for component: PROCALCITON Results from last 7 days Lab Units 07/20/25 1437 07/17/25 1212 GLUCOSE U MG/DL mg/dL Normal Normal UROBILINOGEN URINE mg/dL Normal Normal BILIRUBIN U Negative Negative WBC UR HPF /HPF >50* 6-10* No lab exists for component: TOXIGENICC Imaging Studies: I have reviewed myself the following imaging studies performed in the past 3 days: No X-ray results found for the past [address] abdomen pelvis wo IV contrast Result Date: 07/22/2025 * There is a diverticular disease of the descending colon. No CT scan evidence of diverticulitis. *Nonobstructive bowel gas pattern with moderate amount of feces. 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 Probable hydronephrosis is suspected. There is a 7 mm hypodense abnormality in the t ransplant kidney. There is an approximately 7 x 5.4 x 4.5 cm lobulated fluid collection inferior tothe transplant kidney in the perinephric region. This abnormality was present on the prior study. This could be a lymphocele, dilated ureter or others cyst. A clinical correlation is suggested. Renaltransplant ultrasound examination would be helpful for further evaluation. * Multifocal splenic tissues in the left upper abdomen. * Atrophic both [place] kidneys with the left renal cyst. * Bilateralsmall pleural effusions and bibasilar atelectasis. * Pericardial effusion. Electronically signed: Rosalino Rueda. No MRI results found for the past 3 days Cultures: Results for orders placed or performed during the hospital encounter of 07/13/25 Blood culture, peripheral #2 Specimen: Blood, Venous Result Value Ref Range Blood Culture No growth at 3 days Blood culture, peripheral #1 Specimen: Blood, Venous Result Value Ref Range Blood Culture No growth at 3 days Medications: [Held by provider] azaTHIOprine, 50 mg, oral, Daily calcium carbonate-vitamin D3, 1 tablet, oral, Daily carvedilol, 25 mg, oral, BID with meals cefepime, 2 g, intravenous, q8h cholecalciferol, 5,000 Units, oral, Daily DAPTOmycin (Cubicin) 650 mg in sodium chloride 0.9 % 50 mL IVPB, 8 mg/kg, intravenous, q24h famotidine, 20 mg, oral, Nightly finasteride, 5 mg, oral, Daily heparin (porcine), 5,000 Units, subcutaneous, BID hydrALAZINE, 100 mg, oral, TID magnesium sulfate, 1 g, intravenous, q1h NIFEdipine XL, 30 mg, oral, Daily Oxygen Therapy, , inhalation, Continuous pantoprazole, 40 mg, oral, Daily before breakfast predniSONE, 5 mg, oral, Daily sodium bicarbonate, 650 mg, oral, BID sulfamethoxazole-trimethoprim, 160 mg of trimethoprim, oral, Once per day on Wednesday tacrolimus ER, 4 mg, oral, Daily tamsulosin, 0.8 mg, oral, Daily This progress note was completed using a voice clip loading machine adjuster system. Every effort was made to ensure accuracy; however, inadvertent computerized clip loading machine adjuster errors may be present. Thank you for allowing us to participate in the care of this patient. Our consultation addresses complex antimicrobial therapy counseling and treatment Jonny Merino MD [facility] Please contact us via [employer] during business hours. If no response in 15 min, call / page through the spreader operator automatic Cosigned by Brinda Menjivar MD at 07/23/2025 12:52 PM EST Associated attestation - Brinda Menjivar MD - 07/23/2025 12:52 PM EST I independently reviewed the laboratory work and imaging as well as other studies mentioned in the above note; I have discussed the management with the Infectious Diseases team. I have reviewed the above note, I agree with the findings and plan of care. Thank you for allowing us to participate in the care of this patient. Brinda Menjivar MD [place] [facility] Phone:[phone] * Philip Jones MD - 07/22/2025 12:32 PM EST Images from the original note were not included. Infectious Diseases - Inpatient daily Progress Note - Patient name: Christal Suh Patient Today's Date and Time: 07/22/2025, 12:32 PM Admission Date: 07/13/2025 Assessment/Plan Impression: This is a 69-year-old man with end-stage renal disease who underwent donor renal transplant in March of this year, admitted from rehab facility with diarrhea and generalized weakness found to have C. difficile and COVID. About a week into admission he developed a high-grade fever which I am attributing to potential peripheral line infection. Workup has been negative blood cultures are negative imaging is nonrevealing. Abdominal pain persists. Diarrhea has improved, and while leukocytosis has remained present his fever also resolved in the past 48 hours white count is coming back down from 21-12. He is finishing a course of fidaxomicin (diarrhea was persisting on oral vancomycin sohe was switched on 07/18). CT of the abdomen done today shows fluid collection inferior to the transplanted kidney thought to be a lymphocele. Creatinine on an uptrend - watch closely Recommendations: Continue cefepime and daptomycin empirically. Plan for 5 days. Will discuss with transplant in regards to the need for sampling this fluid collection seen on the CT Airborne isolation for COVID-19 for the duration of hospitalization given immunocompromise Contact D isolation for C. difficile for the duration of admission Subjective Interval history: No SOB or cough, no CP no sore throat, no vomiting Continues some abdominal discomfort in LLQ (opposite to the transplant area) CT below. Perinephric Fluid collection seen, described as lymphocele rather than abscess Objective Physical Examination: BP 107/60 (BP Location: Right arm, Patient Position: Lying) Pulse 71 Temp 36.5 ??C (97.7 ??F) (Temporal) Resp 16 Ht 1.854 m (6' 0.99 ) Wt 80.3 kg (177 lb) SpO2 100% BMI 23.36 kg/m?? Temperature Range: Temp: 36.5 ??C (97.7 ??F) Temp Av.1 ??C (98.7 ??F) Min: 36.5 ??C (97.7 ??F)Max: 37.3 ??C (99.1 ??F) General Appearance: Awake, alert, and in no apparent distress, nontoxic Pulmonary/Chest: clear to auscultation, no wheezes or rales, and unlabored breathing Cardiovascular: Regular rate and rhythm without murmurs Abdomen: soft, lender LLQ Extremities: No cyanosis, edema, no joint effusions. Neurologic: Alert and oriented x 3, nonfocal. strength and sensation grossly normal Skin: No rash no lesions. + pallor Laboratory data: I have independently reviewed the following labs: Results from last 7 days Lab Units 07/22/25 0401 07/21/25 0340 07/20/25 0515 WBC AUTO 10*3/uL 12.06* 19.07* 21.21* HEMOGLOBIN g/dL 8.0* 8.9* 9.0* HEMATOCRIT % 24.2* 27.2* 28.1* MCV fL 101.7* 102.6* 104.5* PLATELETS AUTO 10*3/uL 165 160 179 Results from last 7 days Lab Units 07/22/25 0401 07/21/25 0340 07/20/25 0515 POTASSIUM mmol/L 3.6 3.8 4.1 CHLORIDE mmol/L 109* 109* 111* CO2 mmol/L 21 21 20* BUN mg/dL 39* 38* 33* CREATININE mg/dL 1.42* 1.37* 1.22 GLUCOSE mg/dL 160* 148* 142* CALCIUM mg/dL 7.9* 8.4* 8.4* ALK PHOS U/L 81 91 102 ALT U/L 13 16 18 AST U/L 11* 12* 15 Results from last 7 days Lab Units 07/20/25 1437 07/17/25 1212 GLUCOSE U MG/DL mg/dL Normal Normal UROBILINOGEN URINE mg/dL Normal Normal BILIRUBIN U Negative Negative WBC UR HPF /HPF >50* 6-10* Imaging Studies: I have reviewed myself the following imaging studies performed in the past 3 days: XR chest 1 view Result Date: 07/20/2025 Similar bibasilar opacities which may represent atelectasis or pneumonia. Approved by:Beth Hauser07/20/2025 12:41 PM. I, Michel Valentine MD,have reviewed the image(s) and agree with the findings in this report. Electronically signed: Michel Valentine MD. No CT results found for the past 3 days No MRI results found for the past 3 days Cultures: Results for orders placed or performed during the hospital encounter of 07/13/25 Blood culture, peripheral #2 Specimen: Blood, Venous Result Value Ref Range Blood Culture No growth at 2 days Blood culture, peripheral #1 Specimen: Blood, Venous Result Value Ref Range Blood Culture No growth at 2 days Medications: [Held by provider] azaTHIOprine, 50 mg, oral, Daily calcium carbonate-vitamin D3, 1 tablet, oral, Daily carvedilol, 25 mg, oral, BID with meals cefepime, 2 g, intravenous, q8h cholecalciferol, 5,000 Units, oral, Daily DAPTOmycin (Cubicin) 650 mg in sodium chloride 0.9 % 50 mL IVPB, 8 mg/kg, intravenous, q24h famotidine, 20 mg, oral, Nightly finasteride, 5 mg, oral, Daily heparin (porcine), 5,000 Units, subcutaneous, BID hydrALAZINE, 100 mg, oral, TID NIFEdipine XL, 30 mg, oral, Daily Oxygen Therapy, , inhalation, Continuous pantoprazole, 40 mg, oral, Daily before breakfast predniSONE, 5 mg, oral, Daily sodium bicarbonate, 650 mg, oral, BID sulfamethoxazole-trimethoprim, 160 mg of trimethoprim, oral, Once per day on Wednesday tacrolimus ER, 4 mg, oral, Daily tamsulosin, 0.8 mg, oral, Daily This progress note was completed using a voice clip loading machine adjuster system. Every effort was made to ensure accuracy; however, inadvertent computerized clip loading machine adjuster errors may be present. Thank you for allowing us to participate in the care of this patient. Our consultation addresses complex antimicrobial therapy counseling and treatment Philip Jones MD [facility] Please contact us via [employer] during business hours. If no response in 15 min, call / page through the spreader operator automatic * Jamison Guaman MD - 07/22/2025 9:48 AM EST Images from the original note were not included. Department of Urologic Surgery & Renal Transplantation DAILY PROGRESS NOTE Background: Christal Suh is a 69 y.o. year old male with a PMH of ESRD 2/2 HTN now s/p DDRT, earlier readmission for LLQ pain from diverticulitis and recent ischemic stroke and more recent TURP for urinary retention. He is admitted with FTT and reportedly COVID but no sifnificant symptoms. Procedures/Operations: - 05/11/25 - Rabets (Uro): TURP - 05/01/25 - Clar (Uro): Bedside cysto, removal of stent - 03/31/25 - Lobito (Transplant): DDRT Subjective/Interval Summary: Reports he feels okay, af/vss. BM stable He is eating well without issues. Some Left groin pain, will obtain CT non-con this AM No burning with urination. Denies shortness of breath. He denies recent ambulation. Objective: Vitals: Vitals: 07/22/25 0800 BP: 107/60 Pulse: 71 Resp: 16 Temp: 36.5 ??C (97.7 ??F) SpO2: I/O last 3 completed shifts: In: 2913.8 (36.3 mL/kg) [P.O.:1200; I.V.:1463.8 (18.2 mL/kg); IV Piggyback:250] Out: 1250 (15.6 mL/kg) [Urine:1250 (0.4 mL/kg/hr)] Weight: 80.3 kg No intake/output data recorded. Gen: Alert & oriented x3, no acute distress, not ill-appearing Neuro: Grossly intact, no obvious CN defects CV: Regular rate, radial pulses present Resp: Breathing comfortably on RA, no audible wheezing or accessory muscle use Abd: Soft, some Left groin pain, no tenderness, Non-distended, well healed RLQ incision : no catheterization or external collection devices MSK: Moving all extremities, warm and well perfused, appropriate ROM, no edema Labs: Results from last 7 days Lab Units 07/22/25 0401 07/21/25 0340 07/20/25 0515 07/19/25 0518 07/18/25 0532 WBC AUTO 10*3/uL 12.06* 19.07* 21.21* 13.15* 13.61* HEMOGLOBIN g/dL 8.0* 8.9* 9.0* 8.8* 8.9* HEMATOCRIT % 24.2* 27.2* 28.1* 27.3* 27.0* PLATELETS AUTO 10*3/uL 165 160 179 177 173 Results from last 7 days Lab Units 07/22/25 0401 07/21/25 0340 07/20/25 0515 07/19/25 0518 07/18/25 0532 SODIUM mmol/L 139 139 139 140 140 POTASSIUM mmol/L 3.6 3.8 4.1 4.2 4.0 CO2 mmol/L * 22 25 BUN mg/dL 39* 38* 33* 35* 36* CREATININE mg/dL 1.42* 1.37* 1.22 1.37* 1.41* Medications: [Held by provider] azaTHIOprine, 50 mg, oral, Daily calcium carbonate-vitamin D3, 1 tablet, oral, Daily carvedilol, 25 mg, oral, BID with meals cefepime, 2 g, intravenous, q8h cholecalciferol, 5,000 Units, oral, Daily DAPTOmycin (Cubicin) 650 mg in sodium chloride 0.9 % 50 mL IVPB, 8 mg/kg, intravenous, q24h famotidine, 20 mg, oral, Nightly finasteride, 5 mg, oral, Daily heparin (porcine), 5,000 Units, subcutaneous, BID hydrALAZINE, 100 mg, oral, TID megestrol, 800 mg, oral, Daily NIFEdipine XL, 30 mg, oral, Daily Oxygen Therapy, , inhalation, Continuous pantoprazole, 40 mg, oral, Daily before breakfast predniSONE, 5 mg, oral, Daily sodium bicarbonate, 650 mg, oral, BID sulfamethoxazole-trimethoprim, 160 mg of trimethoprim, oral, Once per day on Wednesday tacrolimus ER, 4 mg, oral, Daily tamsulosin, 0.8 mg, oral, Daily Imaging: XR chest 1 view Narrative: XR CHEST 1 VIEW 07/20/2025 11:47 AM CLINICAL INDICATIONS: Cough COMPARISON: Chest radiograph 07/15/2025 FINDINGS: Upright AP view of the chest was obtained. Unchanged cardiomediastinal silhouette. No pneumothorax. Trace left pleural effusion. Bibasilar opacities, similar to prior. Impression: Similar bibasilar opacities which may represent atelectasis or pneumonia. Approved by:Beth Hauser07/20/2025 12:41 PM. I, Michel Valentine MD,have reviewed the image(s) and agree with the findings in this report. Electronically signed: Michel Valentine MD. Assessment: Christal Suh is a 69 y.o. male with a PMH of ESRD 2/2 HTN now s/p DDRT, and history of ischemic stroke admitted for weakness and failure to thrive. Active Problems: S/p DDRT Need for immunosuppression H/o diverticulitis H/o stroke BPH with retention S/p TURP FTT COVID-19 C Diff diarrhea Severe protein-calorie malnutrition Urine Culture- Pseudomonas aeruginosa Leukocytosis Fever Plan: Diet: Regular, patient has severe PCM Nutritional supplements- Boost glucose control Patient would like these at his facility at discharge. Reports he does not enjoy the meals offered at his facility Dietary consulted Severe protein-calorie malnutrition Had edema at admission, Albumin infusion TiD > albumin, resolved Nutrition consulted Will obtain calorie count, eating better today, says he doesn't like the food at the rehab, that's why he has not been eating well Boost Tid, encouraged to eat better, eating okay, drinking boost shakes. Started megestrol on admission, we will stop it now Improved now, eating much better Albumin again down, encourage protein shakes tid Immunosuppression: Maintenance: Imuran 50mg daily,held now due to fever/infection Tacrolimus 4mg daily, will switch to prograf IR 2mg twice daily on discharge to accommodate facility needs. Reduced Pred from 10 to 5 mg daily due to fever/infection Immunoprophylaxis: Bactrim M/W/F Nystatin Swish qid Valcyte 450 mg once daily- discontinued due to being more than 3 months post transplant Infection Recent C Diff, COVID-19 Consulted ID, appreciate recommendations No respiratory symptoms, did require Bipap on 07/15, on room air now, will continue to monitor Switched to dificid due to worsening diarrhea. 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 Fever (07/20) Started cefepime empirically on 07/20 Blood cultures from 07/20 - NGTD Flu test ordered- negative Pseudomonas in urine culture, possible UTI Continue flomax to ensure proper bladder emptying, check PVR Left groin Pain- will obtain CT non-con today Monitor renal function: UOP: 750 recorded cc/24 hr Renal function stable, will continue to monitor prospera/DSA/BK pending CMV negative (07/17) Please obtain 2x PVRs Results from last 7 days Lab Units 07/22/25 0401 07/21/25 0340 07/20/25 0515 07/19/25 0518 07/18/25 0532 07/17/25 0501 07/16/25 0508 CREATININE mg/dL 1.42* 1.37* 1.22 1.37* 1.41* 1.63* 1.55* BUN mg/dL 39* 38* 33* 35* 36* 41* 29* Anemia of chronic kidney disease: Hgb 8.0 from 8.9, continue to monitor Aranesp weekly Results from last 7 days Lab Units 07/22/25 0401 07/21/25 0340 07/20/25 0515 07/19/25 0518 07/18/25 0532 07/17/25 0501 07/16/25 0508 WBC AUTO 10*3/uL 12.06* 19.07* 21.21* 13.15* 13.61* 13.62* 10.35 HEMOGLOBIN g/dL 8.0* 8.9* 9.0* 8.8* 8.9* 8.6* 8.6* PLATELETS AUTO 10*3/uL 165 160 179 177 173 181 181 Fluid/Electrolytes: IVF: start @ 75 ml/hr due to MEDARDO from possible dehydration Electrolytes: Monitor/replace per protocol Replete phos and calcium Metabolic acidosis - on oral bicarb 650 mg bid Results from last 7 days Lab Units 07/22/25 0401 07/21/25 0340 07/20/25 0515 07/19/25 0518 07/18/25 0532 07/17/25 0501 07/16/25 0508 SODIUM mmol/L 139 139 139 140 140 141 139 POTASSIUM mmol/L 3.6 3.8 4.1 4.2 4.0 3.9 3.8 CHLORIDE mmol/L 109* 109* 111* 111* 110* 108* 106 CO2 mmol/L 21 21 20* 22 25 25 22 BUN mg/dL 39* 38* 33* 35* 36* 41* 29* CREATININE mg/dL 1.42* 1.37* 1.22 1.37* 1.41* 1.63* 1.55* PHOSPHORUS mg/dL 3.5 3.3 2.0* 2.2* 2.4* 2.5 4.0 CALCIUM mg/dL 7.9* 8.4* 8.4* 8.2* 8.3* 8.4* 8.5* Diuretics: none Hypertension: Home Rx: Carvedilol 25 mg bid, hydralazine 100 mg tid, nifedipine 30 mg daily Nephrology consulted, appreciate recommendations H/o stroke: on baby aspirin/ debility PT, OT consulted Will go back to the rehab once medically fit DVT prophylaxis: SCD cuffs, encourage ambulation Heparin subcutaneous prophylaxis Respiratory: Encourage incentive spirometry use every hour DISPO: Not appropriate for Discharge Jamison Guaman MD Urology Resident, PGY-3 Cosigned by Jayjay Robin MD at 07/22/2025 12:18 PM EST Associated attestation - Jayjay Robin MD - 07/22/2025 12:18 PM EST By using the attestations below, the signing [...] additional personal documentation from me. Additional Comments: Feels okay, 2 bowel movements yesterday, none so far. Complains of some left groin pain. Plan for CT abdomen/pelvis today. White count down, creatinine slightly up. Start IV fluids. Stop Megace, eating better. Continue protein shakes for hypoalbuminemia. Continues to be on antibiotics. Blood cultures negative to date. Last urine culture was positive for Pseudomonas. On cefepime and daptomycin currently. * Tez Garcia MD - 07/22/2025 7:56 AM EST Images from the original note were not included. Nephrology Progress Note Patient : Christal Suh; 69 y.o. Location: [id number] Attending: Jayjay Robin MD Admit Date: 07/13/2025 Hospital Day: 9 Reason for Consult: Medical and immunosuppressive management in renal transplant patient Subjective: Interval history: 07/22/25 Patient was seen and examined at bedside today morning no unexpected acute events reported overnight. Patient made around 750 ml of urine over 24 hours. Will continue Iv sod bicarb. Will continue to monitor kidney function. 07/21/25 Patient was seen and examined at bedside today morning. Patient spiked temp overnight. He had around 1300 ml of urine over 24 hour. His S. Cr is 137 and BUN 38. 07/20/25 Patient seen and evaluated at bedside. Patient continuing to have good UOP with 1.5 L in the last 24 hours. Labs continuing to improve with S Cr 1.22 (1.37) and BUN 33 (35). Electrolytes WNL. No acute concerns from renal perspective. Subjective History of present illness: Christal Suh is a 69 y.o. 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 He is Covid-19 positive and positive for C Diff. Patient has not been eating or drinking well. Notably, he was recently admitted to [facility] for a pseudomonas UTI from 05/29 to 06/15. Patient was evaluated at bedside. Patient is angry and intermittently cooperative with exam. After prolonged discussion, patient is frustrated with the number of people that keep coming into his rooms and he does not like that there are different doctors from various services asking him the same qu estions. His kidney function actually looks to be improving w/ creatinine of 1.19 today and stableelectrolytes. Objective Objective: Input/Output: Intake/Output Summary (Last 24 hours) at 07/22/2025 0756 Last data filed at 07/22/2025 0234 Gross per 24 hour Intake 2012.5 ml Output 750 ml Net 1262.5 ml I/O last 3 completed shifts: In: 2913.8 (36.3 mL/kg) [P.O.:1200; I.V.:1463.8 (18.2 mL/kg); IV Piggyback:250] Out: 1250 (15.6 mL/kg) [Urine:1250 (0.4 mL/kg/hr)] Weight: 80.3 kg Vital signs: Temperature: Temp: 37.1 ??C (98.8 ??F) TMax: Temp (24hrs), Av ??C (98.6 ??F), Min:36.3 ??C (97.3 ??F), Max:37.3 ??C (99.1 ??F) Respirations: Resp: 13 Pulse: Heart Rate: 77 BP: BP: 112/71 BP Range: Systolic (24hrs), Av , Min:109 , Max:125 Diastolic (24hrs), Av, Min:57, Max:71 Wt Readings from Last 3 Encounters: 07/22/25 80.3 kg (177 lb) 06/15/25 79 kg (174 lb 2.6 oz) 05/29/25 78.3 kg (172 lb 9.6 oz) Physical Exam Vitals reviewed. Constitutional: General: He is not in acute distress. Appearance: Normal appearance. HENT: Head: Normocephalic and atraumatic. Cardiovascular: Rate and Rhythm: Normal rate and regular rhythm. Pulmonary: Effort: Pulmonary effort is normal. No respiratory distress. Breath sounds: Normal breath sounds. Abdominal: General: Abdomen is flat. Palpations: Abdomen is soft. Skin: General: Skin is warm and dry. Neurological: General: No focal deficit present. Mental Status: He is alert and oriented to person, place, and time. Psychiatric: Mood and Affect: Mood normal. Behavior: Behavior normal. Current Medications: Scheduled Meds: [Held by provider] azaTHIOprine, 50 mg, oral, Daily calcium carbonate-vitamin D3, 1 tablet, oral, Daily carvedilol, 25 mg, oral, BID with meals cefepime, 2 g, intravenous, q8h cholecalciferol, 5,000 Units, oral, Daily DAPTOmycin (Cubicin) 650 mg in sodium chloride 0.9 % 50 mL IVPB, 8 mg/kg, intravenous, q24h famotidine, 20 mg, oral, Nightly finasteride, 5 mg, oral, Daily heparin (porcine), 5,000 Units, subcutaneous, BID hydrALAZINE, 100 mg, oral, TID megestrol, 800 mg, oral, Daily NIFEdipine XL, 30 mg, oral, Daily Oxygen Therapy, , inhalation, Continuous pantoprazole, 40 mg, oral, Daily before breakfast predniSONE, 5 mg, oral, Daily sodium bicarbonate, 650 mg, oral, BID sulfamethoxazole-trimethoprim, 160 mg of trimethoprim, oral, Once per day on Wednesday tacrolimus ER, 4 mg, oral, Daily tamsulosin, 0.8 mg, oral, Daily Continuous Infusions: PRN Meds: PRN medications: acetaminophen, albuterol, melatonin, ondansetron ODT OR ondansetron,Insert peripheral IV AND Saline lock IV AND sodium chloride Outpatient Medications: Medication Documentation Review Audit Reviewed by Adrienne Brown RN (Registered Nurse) on 07/13/25 at 2139 Medication Order Taking? Sig Documenting Provider Last Dose Status acetaminophen (Tylenol) 325 mg tablet [id number] Take 650 mg by mouth every 6 (six) hours if needed for mild pain (1-3 pain score) or fever greater than or equal to 38 degrees Celsius. Historical ProviderMD Active azaTHIOprine (Imuran) 75 mg tablet [id number] No Take 1 tablet (75 mg) by mouth in the morning for 96doses. Patient not taking: Reported on 07/13/2025 Grazyna Briseno CNP Not Taking Active calcium carbonate (Tums) 200 mg calcium (500 mg) chewable tablet [id number] Chew 3 tablets (1,500 mg)two times daily. Without food Patient taking differently: Chew 2 tablets two times daily. Without food Jayjay Robin MD Active calcium carbonate-vitamin D3 500 mg-5 mcg (200 unit) tablet [id number] Take 2 tablets by mouth two times daily. Patient taking differently: Take 1 tablet by mouth at bedtime. Grazyna Briseno CNP Active carvedilol (Coreg) 25 mg tablet [id number] 25 mg with breakfast and with evening meal. Historical ProviderMD Active cephalexin (Keflex) 500 mg capsule [id number] Take 500 mg by mouth four times daily. FOR INFECTION FOR 10 DAYS(07/13 - 07/23) Historical ProviderMD Active docusate sodium (Colace) 100 mg capsule [id number] Take 100 mg by mouth two times daily. Historical ProviderMD Active famotidine (Pepcid) 20 mg tablet [id number] Take 1 tablet (20 mg) by mouth at bedtime. Jayjay Robin MD Active finasteride (Proscar) 5 mg tablet [id number] Take 1 tablet (5 mg) by mouth in the morning. Do not crush, chew, or split. Jayjay Robin MD Active folic acid (Folvite) 1 mg tablet [id number] Take 1 tablet (1 mg) by mouth in the morning for 94 doses. Grazyna Briseno CNP Active guaiFENesin (Mucinex) 600 mg 12 hr tablet [id number] Take 1,200 mg by mouth two times daily. Do not crush, chew, or split. Historical ProviderMD Active hydrALAZINE (Apresoline) 100 mg tablet [id number] Take 1 tablet (100 mg) by mouth three times daily. Wendy Lomeli MD Active ipratropium-albuteroL (Duo-Neb) 0.5-2.5 mg/3 mL nebulizer solution [id number] Take 3 mL by nebulization every 6 (six) hours if needed for wheezing or shortness of breath. Historical ProviderMD Active magnesium glycinate 100 mg magnesium capsule [id number] Take 3 capsules (300 mg) by mouth three timesdaily. Jayjay Robin MD Active NIFEdipine XL (Procardia XL) 30 mg 24 hr tablet [id number] Take 1 tablet (30 mg) by mouth in the morning. Do not crush, chew, or split. Jayjay Robin MD Active nystatin (Mycostatin) 100,000 unit/mL suspension [id number] Take 5 mL (500,000 Units) by mouth four times daily. Swish and swallow Wendy Lomeli MD Active ondansetron (Zofran) 4 mg tablet [id number] Take 4 mg by mouth every 4 (four) hours if needed for nausea or vomiting. Historical ProviderMD Active pantoprazole (ProtoNix) 40 mg EC tablet [id number] Take 1 tablet (40 mg) by mouth before breakfast. Do not crush, chew, or split. Delano Klein MD Active predniSONE (Deltasone) 10 mg tablet [id number] Take 1 tablet (10 mg) by mouth in the morning. Jayjay Robin MD Active sod phos di, mono-K phos mono (K Phos Neutral) tablet [id number] Take 1 tablet by mouth two times daily. Jayjay Robin MD Active sulfamethoxazole-trimethoprim (Bactrim DS) 800-160 mg tablet [id number] Take 1 tablet by mouth 3 (three) times a week. On Wednesday, Wednesday, and Wednesday Wendy Lomeli MD Active tacrolimus ER (Envarsus XR) 4 mg tablet ER [id number] Take 1 tablet (4 mg) by mouth in the morning. Script total 8.5 mg daily Patient taking differently: Take 4 mg by mouth in the morning. 4 mg daily Wendy Lomeli MD Active tamsulosin (Flomax) 0.4 mg 24 hr capsule [id number] Take 2 capsules (0.8 mg) by mouth in the morning.Jayjay Robin MD Active valGANciclovir (Valcyte) 450 mg tablet [id number] Take 1 tablet (450 mg) by mouth in the morning. As directed. Wendy Lomeli MD Active vancomycin (Vancocin) 125 mg capsule [id number] Take 125 mg by mouth 2 times daily. Historical Provider, Active Labs: I have reviewed the patient's most recent labs as listed below: Chemistry: Lab Results Component Value Date NA 139 07/22/2025 K 3.6 07/22/2025 CL 109 (H) 07/22/2025 CO2 21 07/22/2025 ANIONGAP 13 07/22/2025 BUN 39 (H) 07/22/2025 CREATININE 1.42 (H) 07/22/2025 EGFR 53.2 (L) 07/22/2025 CKTOTAL <10.0 (L) 07/20/2025 CALCIUM 7.9 (L) 07/22/2025 MG 1.5 (L) 07/22/2025 PHOS 3.5 07/22/2025 PTH 45 07/18/2025 VITD25 16.0 (L) 07/18/2025 ALBUMIN 3.0 (L) 07/22/2025 PROT 4.6 (L) 07/22/2025 AST 11 (L) 07/22/2025 ALT 13 07/22/2025 BILITOT 0.3 07/22/2025 BILIDIR 0.1 05/29/2025 ALKPHOS 81 07/22/2025 Hematology & Iron studies: Lab Results Component Value Date WBC 12.06 (H) 07/22/2025 HGB 8.0 (L) 07/22/2025 HCT 24.2 (L) 07/22/2025 MCV 101.7 (H) 07/22/2025 PLT 165 07/22/2025 IRON 36 (L) 07/15/2025 TIBC <91 (L) 07/15/2025 UIBC <55.0 (L) 07/15/2025 IRONSAT 07/15/2025 Comment: Unable to Calculate FERRITIN 437.0 (H) 07/15/2025 Urine chemistry Lab Results Component Value Date PROTUR Negative 07/20/2025 PROTUR 25.6 07/17/2025 CREATUR 53.0 07/17/2025 Urinalysis & Microscopy: Lab Results Component Value Date COLORU Yellow 07/20/2025 CLARITYU Cloudy (A) 07/20/2025 SPECGRAVU <1.005 (L) 07/20/2025 BENNETT 6.0 07/20/2025 PROTUR Negative 07/20/2025 LEUKOCYTESU Large (A) 07/20/2025 NITRITEU Negative 07/20/2025 GLUCOSEU Normal 07/20/2025 KETONESU Negative 07/20/2025 UROBILINOGEN Normal 07/20/2025 BLOODU Negative 07/20/2025 RBCU None Seen 07/20/2025 WBCU >50 (A) 07/20/2025 SQUAMEPIU None Seen 07/20/2025 MUCUSU Occasional 07/20/2025 Urine Eosinophils: No components found for: UEOS Serology & Other labs: Lab Results Component Value Date HEPCAB Nonreactive 04/01/2025 HEPBSAG Nonreactive 04/01/2025 BNP: No results found for: BNP JOSELO: No results found for: JOSELO SPEP: Lab Results Component Value Date PROT 4.6 (L) 07/22/2025 UPEP: No components found for: LABPE C3: No results found for: C3 C4: No results found for: C4 MPO ANCA: No components found for: MPO PR3 ANCA: No components found for: PR3 Anti-GBM: No components found for: GBMABIGG Hep BsAg: No results found for: HEPBSAG Hep C AB: No results found for: HEPCAB Radiology: XR chest 1 view Narrative: XR CHEST 1 VIEW 07/20/2025 11:47 AM CLINICAL INDICATIONS: Cough COMPARISON: Chest radiograph 07/15/2025 FINDINGS: Upright AP view of the chest was obtained. Unchanged cardiomediastinal silhouette. No pneumothorax. Trace left pleural effusion. Bibasilar opacities, similar to prior. Impression: Similar bibasilar opacities which may represent atelectasis or pneumonia. Approved by:Beth Hauser07/20/2025 12:41 PM. I, Michel Valentine MD,have reviewed the image(s) and agree with the findings in this report. Electronically signed: Michel Valentine MD. Assessment: Acute kidney injury - improving Urine output 1300 ml in the last 24 hours History of ESRD Status post DDRT (03/31/2025) EBV +/+ CMV -/+ Need for immunosuppression Need for antimicrobial prophylaxis COVID pneumonia On cefepime per ID Clostridium difficile infection on Vancomycin Hypomagnesemia Magnesium was 1.7 Currently replacing Hypocalcemia Calcium was 8.2 today. Vitamin D deficiency: Vitamin D level 16, PTH 45. On calcium/vitamin D supplement. Fever with Leukocytosis Pseudomonas UTI Plan: Immunosuppression Tacrolimus 4 mg daily. Monitor Tacrolimus levels to adjust dose. Prednisone 10 mg daily Imuran 75 mg daily (on hold) Antimicrobial prophylaxis Bactrim DS M/W/F Nystatin swish QID Valcyte discontinued due to being more than 3 month post transplant Continue Iv sod bicarb 75 mEq with 0.45% NS. Continue Mg replacement. Continue to monitor Tac Continue antibiotics per ID. Discussed with ID. Monitor I/Os, trend creatinine Monitor electrolytes, replete as needed Avoid nephrotoxic agents Thank you for the consultation. Please do not hesitate to contact us for any questions/concerns. Mónica continue to follow along with you. Tez Garcia MD Internal Medicine Resident, PGY-3 [facility] Cosigned by Wendy Lomeli MD at 07/22/2025 6:18 PM EST Associated attestation - Wendy Lomeli MD - 07/22/2025 6:18 PM EST By using the attestations below, the signing [...] be an additional personal documentation from me. * Jamison Guaman MD - 07/21/2025 10:47 AM EST Images from the original note were not included. Department of Urologic Surgery & Renal Transplantation DAILY PROGRESS NOTE Background: Christal Suh is a 69 y.o. year old male with a PMH of ESRD 2/2 HTN now s/p DDRT, earlier readmission for LLQ pain from diverticulitis and recent ischemic stroke and more recent TURP for urinary retention. He is admitted with FTT and reportedly COVID but no sifnificant symptoms. Procedures/Operations: - 05/11/25 - Rabets (Uro): TURP - 05/01/25 - Clar (Uro): Bedside cysto, removal of stent - 03/31/25 - Lobito (Transplant): DDRT Subjective/Interval Summary: Reports he feels okay, af/vss. BM stable, 2-3 Bms daily, not watery. He is eating well without issues. No burning with urination. Denies shortness of breath. He denies recent ambulation. Objective: Vitals: Vitals: 07/21/25 0830 BP: Pulse: 83 Resp: 11 Temp: SpO2: I/O last 3 completed shifts: In: 2173.3 (27.1 mL/kg) [P.O.:837; I.V.:1186.3 (14.8 mL/kg); IV Piggyback:150] Out: 2049 (25.5 mL/kg) [Urine:2049 (0.7 mL/kg/hr)] Weight: 80.3 kg I/O this shift: In: 615 [P.O.:360; I.V.:205; IV Piggyback:50] Out: - Gen: Alert & oriented x3, no acute distress, not ill-appearing Neuro: Grossly intact, no obvious CN defects CV: Regular rate, radial pulses present Resp: Breathing comfortably on RA, no audible wheezing or accessory muscle use Abd: Soft, non-distended, Non-tender, well healed RLQ incision : no catheterization or external collection devices MSK: Moving all extremities, warm and well perfused, appropriate ROM, no edema Labs: Results from last 7 days Lab Units 07/21/25 0340 07/20/25 0515 07/19/25 0518 07/18/25 0532 07/17/25 0501 WBC AUTO 10*3/uL 19.07* 21.21* 13.15* 13.61* 13.62* HEMOGLOBIN g/dL 8.9* 9.0* 8.8* 8.9* 8.6* HEMATOCRIT % 27.2* 28.1* 27.3* 27.0* 25.1* PLATELETS AUTO 10*3/uL 160 179 177 173 181 Results from last 7 days Lab Units 07/21/25 0340 07/20/25 0515 07/19/25 0518 07/18/25 0532 07/17/25 0501 SODIUM mmol/L 139 139 140 140 141 POTASSIUM mmol/L 3.8 4.1 4.2 4.0 3.9 CO2 mmol/L 21 20* 22 25 25 BUN mg/dL 38* 33* 35* 36* 41* CREATININE mg/dL 1.37* 1.22 1.37* 1.41* 1.63* Medications: [Held by provider] azaTHIOprine, 50 mg, oral, Daily calcium carbonate-vitamin D3, 1 tablet, oral, Daily carvedilol, 25 mg, oral, BID with meals cefepime, 2 g, intravenous, q8h cholecalciferol, 5,000 Units, oral, Daily famotidine, 20 mg, oral, Nightly fidaxomicin, 200 mg, oral, BID finasteride, 5 mg, oral, Daily hydrALAZINE, 100 mg, oral, TID megestrol, 800 mg, oral, Daily NIFEdipine XL, 30 mg, oral, Daily Oxygen Therapy, , inhalation, Continuous pantoprazole, 40 mg, oral, Daily before breakfast predniSONE, 5 mg, oral, Daily sodium bicarbonate, 650 mg, oral, BID sulfamethoxazole-trimethoprim, 160 mg of trimethoprim, oral, Once per day on Wednesday tacrolimus ER, 4 mg, oral, Daily tamsulosin, 0.8 mg, oral, Daily sodium bicarbonate 75 mEq in sodium chloride 0.45 % 1,000 mL infusion, 75 mL/hr, Last Rate: 75 mL/hr (07/21/25 0903) Imaging: XR chest 1 view Narrative: XR CHEST 1 VIEW 07/20/2025 11:47 AM CLINICAL INDICATIONS: Cough COMPARISON: Chest radiograph 07/15/2025 FINDINGS: Upright AP view of the chest was obtained. Unchanged cardiomediastinal silhouette. No pneumothorax. Trace left pleural effusion. Bibasilar opacities, similar to prior. Impression: Similar bibasilar opacities which may represent atelectasis or pneumonia. Approved by:Beth Hauser07/20/2025 12:41 PM. I, Michel Valentine MD,have reviewed the image(s) and agree with the findings in this report. Electronically signed: Michel Valentine MD. Assessment: Christal Suh is a 69 y.o. male with a PMH of ESRD 2/2 HTN now s/p DDRT, and history of ischemic stroke admitted for weakness and failure to thrive. Active Problems: S/p DDRT Need for immunosuppression H/o diverticulitis H/o stroke BPH with retention S/p TURP FTT COVID-19 C Diff diarrhea Severe protein-calorie malnutrition Urine Culture- Pseudomonas aeruginosa Leukocytosis Fever Plan: Diet: Regular, patient has severe PCM Nutritional supplements- Boost glucose control Patient would like these at his facility at discharge. Reports he does not enjoy the meals offered at his facility Dietary consulted Severe protein-calorie malnutrition Had edema at admission, Albumin infusion TiD > albumin, resolved Nutrition consulted Will obtain calorie count, eating better today, says he doesn't like the food at the rehab, that's why he has not been eating well Boost Tid, encouraged to eat better, eating okay, drinking boost shakes. Started megestrol on admission Improved now, eating much better Immunosuppression: Maintenance: Imuran 50mg daily, we will hold it now due to fever/infection Tacrolimus 4mg daily, will switch to prograf IR 2mg twice daily on discharge to accommodate facility needs. Reduce Pred from 10 to 5 mg daily due to fever/infection Immunoprophylaxis: Bactrim M/W/F Nystatin Swish qid Valcyte 450 mg once daily- discontinued due to being more than 3 months post transplant Infection Recent C Diff, COVID-19 Consulted ID, appreciate recommendations No respiratory symptoms, did require Bipap on 07/15, on room air now, will continue to monitor Switched to dificid due to worsening diarrhea. 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 Fever (07/20) Started cefepime empirically on 07/20 Blood cultures from 07/20 - NGTD Flu test ordered- negative Pseudomonas in urine culture, possible UTI Continue flomax to ensure proper bladder emptying, check PVR Monitor renal function: UOP: 600 cc/24 hr Renal function stable, will continue to monitor prospera/DSA/BK pending CMV negative (07/17) Please obtain 2x PVRs Results from last 7 days Lab Units 07/21/25 0340 07/20/25 0515 07/19/25 0518 07/18/25 0532 07/17/25 0501 07/16/25 0508 07/15/25 0327 CREATININE mg/dL 1.37* 1.22 1.37* 1.41* 1.63* 1.55* 1.30 BUN mg/dL 38* 33* 35* 36* 41* 29* 23 Anemia of chronic kidney disease: Hgb stable, monitor Aranesp weekly Results from last 7 days Lab Units 07/21/25 0340 07/20/25 0515 07/19/25 0518 07/18/25 0532 07/17/25 0501 07/16/25 0508 07/15/25 1127 WBC AUTO 10*3/uL 19.07* 21.21* 13.15* 13.61* 13.62* 10.35 11.67* HEMOGLOBIN g/dL 8.9* 9.0* 8.8* 8.9* 8.6* 8.6* 8.0* PLATELETS AUTO 10*3/uL 160 179 177 173 181 181 168 Fluid/Electrolytes: IVF: c/w @ 75 ml/hr due to fever and possible dehydration Electrolytes: Monitor/replace per protocol Replete phos and calcium Metabolic acidosis - on oral bicarb 650 mg bid Results from last 7 days Lab Units 07/21/25 0340 07/20/25 0515 07/19/25 0518 07/18/25 0532 07/17/25 0501 07/16/25 0508 07/15/25 0327 SODIUM mmol/L 139 139 140 140 141 139 139 POTASSIUM mmol/L 3.8 4.1 4.2 4.0 3.9 3.8 4.1 CHLORIDE mmol/L 109* 111* 111* 110* 108* 106 108* CO2 mmol/L 21 20* 22 25 25 22 24 BUN mg/dL 38* 33* 35* 36* 41* 29* 23 CREATININE mg/dL 1.37* 1.22 1.37* 1.41* 1.63* 1.55* 1.30 PHOSPHORUS mg/dL 3.3 2.0* 2.2* 2.4* 2.5 4.0 3.0 CALCIUM mg/dL 8.4* 8.4* 8.2* 8.3* 8.4* 8.5* 8.5* Diuretics: none Hypertension: Home Rx: Carvedilol 25 mg bid, hydralazine 100 mg tid, nifedipine 30 mg daily Nephrology consulted, appreciate recommendations H/o stroke: on baby aspirin/ debility PT, OT consulted Will go back to the rehab once medically fit DVT prophylaxis: SCD cuffs, encourage ambulation Heparin subcutaneous prophylaxis Respiratory: Encourage incentive spirometry use every hour DISPO: stay inpatient due to new leukocytosis and fever. Not medically fit currently for discharge to rehab Jamison Guaman MD Ascom [phone] Cosigned by Jayjay Robin MD at 07/21/2025 12:21 PM EST Associated attestation - Jayjay Robin MD - 07/21/2025 12:21 PM EST By using the attestations below, the signing [...] additional personal documentation from me. Additional Comments: Diarrhea reasonably controlled. No fever since yesterday. On cefepime. White count slightly down. Repeat urine culture and blood cultures are negative so far. Will check with ID about daptomycin and why the patient is on that. Immunosuppression reviewed. Imuran has been held due to infection. Prednisone dose also lowered. Encourage ambulation. * Tez Garcia MD - 07/21/2025 8:14 AM EST Images from the original note were not included. Nephrology Progress Note Patient : Christal Suh; 69 y.o. Location: [id number] Attending: Jayjay Robin MD Admit Date: 07/13/2025 Hospital Day: 8 Reason for Consult: Medical and immunosuppressive management in renal transplant patient Subjective: Interval history: 07/21/25 Patient was seen and examined at bedside today morning. Patient spiked temp overnight. He had around 1300 ml of urine over 24 hour. His S. Cr is 137 and BUN 38. 07/20/25 Patient seen and evaluated at bedside. Patient continuing to have good UOP with 1.5 L in the last 24 hours. Labs continuing to improve with S Cr 1.22 (1.37) and BUN 33 (35). Electrolytes WNL. No acute concerns from renal perspective. Subjective History of present illness: Christal Suh is a 69 y.o. 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 He is Covid-19 positive and positive for C Diff. Patient has not been eating or drinking well. Notably, he was recently admitted to [facility] for a pseudomonas UTI from 05/29 to 06/15. Patient was evaluated at bedside. Patient is angry and intermittently cooperative with exam. After prolonged discussion, patient is frustrated with the number of people that keep coming into his rooms and he does not like that there are different doctors from various services asking him the same qu estions. His kidney function actually looks to be improving w/ creatinine of 1.19 today and stableelectrolytes. Objective Objective: Input/Output: Intake/Output Summary (Last 24 hours) at 07/21/2025 0814 Last data filed at 07/21/2025 0619 Gross per 24 hour Intake 2173.25 ml Output 1300 ml Net 873.25 ml I/O last 3 completed shifts: In: 2173.3 (27.1 mL/kg) [P.O.:837; I.V.:1186.3 (14.8 mL/kg); IV Piggyback:150] Out: 2049 (25.5 mL/kg) [Urine:2049 (0.7 mL/kg/hr)] Weight: 80.3 kg Vital signs: Temperature: Temp: 36.9 ??C (98.4 ??F) TMax: Temp (24hrs), Av.4 ??C (99.3 ??F), Min:36.7 ??C (98.1 ??F), Max:38.8 ??C (101.8 ??F) Respirations: Resp: 21 Pulse: Heart Rate: 78 BP: BP: 115/57 BP Range: Systolic (24hrs), Av , Min:115 , Max:143 Diastolic (24hrs), Av, Min:57, Max:76 Wt Readings from Last 3 Encounters: 07/21/25 80.3 kg (177 lb 0.5 oz) 06/15/25 79 kg (174 lb 2.6 oz) 05/29/25 78.3 kg (172 lb 9.6 oz) Physical Exam Vitals reviewed. Constitutional: General: He is not in acute distress. Appearance: Normal appearance. HENT: Head: Normocephalic and atraumatic. Cardiovascular: Rate and Rhythm: Normal rate and regular rhythm. Pulmonary: Effort: Pulmonary effort is normal. No respiratory distress. Breath sounds: Normal breath sounds. Abdominal: General: Abdomen is flat. Palpations: Abdomen is soft. Skin: General: Skin is warm and dry. Neurological: General: No focal deficit present. Mental Status: He is alert and oriented to person, place, and time. Psychiatric: Mood and Affect: Mood normal. Behavior: Behavior normal. Current Medications: Scheduled Meds: [Held by provider] azaTHIOprine, 50 mg, oral, Daily calcium carbonate-vitamin D3, 1 tablet, oral, Daily carvedilol, 25 mg, oral, BID with meals cefepime, 2 g, intravenous, q8h cholecalciferol, 5,000 Units, oral, Daily famotidine, 20 mg, oral, Nightly fidaxomicin, 200 mg, oral, BID finasteride, 5 mg, oral, Daily hydrALAZINE, 100 mg, oral, TID megestrol, 800 mg, oral, Daily NIFEdipine XL, 30 mg, oral, Daily nystatin, 5 mL, Swish & Swallow, 4x daily Oxygen Therapy, , inhalation, Continuous pantoprazole, 40 mg, oral, Daily before breakfast predniSONE, 5 mg, oral, Daily sodium bicarbonate, 650 mg, oral, BID sulfamethoxazole-trimethoprim, 160 mg of trimethoprim, oral, Once per day on Wednesday tacrolimus ER, 4 mg, oral, Daily tamsulosin, 0.8 mg, oral, Daily Continuous Infusions: sodium bicarbonate 75 mEq in sodium chloride 0.45 % 1,000 mL infusion, 75 mL/hr, Last Rate: 75 mL/hr (07/21/25 0619) PRN Meds: PRN medications: acetaminophen, albuterol, melatonin, ondansetron ODT OR ondansetron,Insert peripheral IV AND Saline lock IV AND sodium chloride Outpatient Medications: Medication Documentation Review Audit Reviewed by Adrienne Brown RN (Registered Nurse) on 07/13/25 at 2139 Medication Order Taking? Sig Documenting Provider Last Dose Status acetaminophen (Tylenol) 325 mg tablet [id number] Take 650 mg by mouth every 6 (six) hours if needed for mild pain (1-3 pain score) or fever greater than or equal to 38 degrees Celsius. Historical Provider, Active azaTHIOprine (Imuran) 75 mg tablet [id number] No Take 1 tablet (75 mg) by mouth in the morning for 96doses. Patient not taking: Reported on 07/13/2025 Grazyna Briseno CNP Not Taking Active calcium carbonate (Tums) 200 mg calcium (500 mg) chewable tablet [id number] Chew 3 tablets (1,500 mg)two times daily. Without food Patient taking differently: Chew 2 tablets two times daily. Without food Jayjay Robin MD Active calcium carbonate-vitamin D3 500 mg-5 mcg (200 unit) tablet [id number] Take 2 tablets by mouth two times daily. Patient taking differently: Take 1 tablet by mouth at bedtime. Grazyna Briseno CNP Active carvedilol (Coreg) 25 mg tablet [id number] 25 mg with breakfast and with evening meal. Historical Provider, Active cephalexin (Keflex) 500 mg capsule [id number] Take 500 mg by mouth four times daily. FOR INFECTION FOR 10 DAYS(07/13 - 07/23) Cristal Vazquez MD Active docusate sodium (Colace) 100 mg capsule [id number] Take 100 mg by mouth two times daily. Cristal Vazquez MD Active famotidine (Pepcid) 20 mg tablet [id number] Take 1 tablet (20 mg) by mouth at bedtime. Jayjay Robin MD Active finasteride (Proscar) 5 mg tablet [id number] Take 1 tablet (5 mg) by mouth in the morning. Do not crush, chew, or split. Jayjay Robin MD Active folic acid (Folvite) 1 mg tablet [id number] Take 1 tablet (1 mg) by mouth in the morning for 94 doses. Grazyna Briseno CNP Active guaiFENesin (Mucinex) 600 mg 12 hr tablet [id number] Take 1,200 mg by mouth two times daily. Do not crush, chew, or split. Cristal Vazquez MD Active hydrALAZINE (Apresoline) 100 mg tablet [id number] Take 1 tablet (100 mg) by mouth three times daily. Wendy Lomeli MD Active ipratropium-albuteroL (Duo-Neb) 0.5-2.5 mg/3 mL nebulizer solution [id number] Take 3 mL by nebulization every 6 (six) hours if needed for wheezing or shortness of breath. Cristal Vazquez MD Active magnesium glycinate 100 mg magnesium capsule [id number] Take 3 capsules (300 mg) by mouth three timesdaily. Jayjay Robin MD Active NIFEdipine XL (Procardia XL) 30 mg 24 hr tablet [id number] Take 1 tablet (30 mg) by mouth in the morning. Do not crush, chew, or split. Jayjay Robin MD Active nystatin (Mycostatin) 100,000 unit/mL suspension [id number] Take 5 mL (500,000 Units) by mouth four times daily. Swish and swallow Wendy Lomeli MD Active ondansetron (Zofran) 4 mg tablet [id number] Take 4 mg by mouth every 4 (four) hours if needed for nausea or vomiting. Cristal Vazquez MD Active pantoprazole (ProtoNix) 40 mg EC tablet [id number] Take 1 tablet (40 mg) by mouth before breakfast. Do not crush, chew, or split. Delano Klein MD Active predniSONE (Deltasone) 10 mg tablet [id number] Take 1 tablet (10 mg) by mouth in the morning. Jayjay Robin MD Active sod phos di, mono-K phos mono (K Phos Neutral) tablet [id number] Take 1 tablet by mouth two times daily. Jayjay Robin MD Active sulfamethoxazole-trimethoprim (Bactrim DS) 800-160 mg tablet [id number] Take 1 tablet by mouth 3 (three) times a week. On Wednesday, Wednesday, and Wednesday Wendy Lomeli MD Active tacrolimus ER (Envarsus XR) 4 mg tablet ER [id number] Take 1 tablet (4 mg) by mouth in the morning. Script total 8.5 mg daily Patient taking differently: Take 4 mg by mouth in the morning. 4 mg daily Wendy Lomeli MD Active tamsulosin (Flomax) 0.4 mg 24 hr capsule [id number] Take 2 capsules (0.8 mg) by mouth in the morning.Jayjay Robin MD Active valGANciclovir (Valcyte) 450 mg tablet [id number] Take 1 tablet (450 mg) by mouth in the morning. As directed. Wendy Lomeli MD Active vancomycin (Vancocin) 125 mg capsule [id number] Take 125 mg by mouth 2 times daily. Historical Provider, Active Labs: I have reviewed the patient's most recent labs as listed below: Chemistry: Lab Results Component Value Date NA 139 07/21/2025 K 3.8 07/21/2025 CL 109 (H) 07/21/2025 CO2 21 07/21/2025 ANIONGAP 13 07/21/2025 BUN 38 (H) 07/21/2025 CREATININE 1.37 (H) 07/21/2025 EGFR 55.5 (L) 07/21/2025 CKTOTAL <10.0 (L) 07/20/2025 CALCIUM 8.4 (L) 07/21/2025 MG 1.7 (L) 07/21/2025 PHOS 3.3 07/21/2025 PTH 45 07/18/2025 VITD25 16.0 (L) 07/18/2025 ALBUMIN 3.4 (L) 07/21/2025 PROT 5.0 (L) 07/21/2025 AST 12 (L) 07/21/2025 ALT 16 07/21/2025 BILITOT 0.4 07/21/2025 BILIDIR 0.1 05/29/2025 ALKPHOS 91 07/21/2025 Hematology & Iron studies: Lab Results Component Value Date WBC 19.07 (H) 07/21/2025 HGB 8.9 (L) 07/21/2025 HCT 27.2 (L) 07/21/2025 MCV 102.6 (H) 07/21/2025 PLT 160 07/21/2025 IRON 36 (L) 07/15/2025 TIBC <91 (L) 07/15/2025 UIBC <55.0 (L) 07/15/2025 IRONSAT 07/15/2025 Comment: Unable to Calculate FERRITIN 437.0 (H) 07/15/2025 Urine chemistry Lab Results Component Value Date PROTUR Negative 07/20/2025 PROTUR 25.6 07/17/2025 CREATUR 53.0 07/17/2025 Urinalysis & Microscopy: Lab Results Component Value Date COLORU Yellow 07/20/2025 CLARITYU Cloudy (A) 07/20/2025 SPECGRAVU <1.005 (L) 07/20/2025 BENNETT 6.0 07/20/2025 PROTUR Negative 07/20/2025 LEUKOCYTESU Large (A) 07/20/2025 NITRITEU Negative 07/20/2025 GLUCOSEU Normal 07/20/2025 KETONESU Negative 07/20/2025 UROBILINOGEN Normal 07/20/2025 BLOODU Negative 07/20/2025 RBCU None Seen 07/20/2025 WBCU >50 (A) 07/20/2025 SQUAMEPIU None Seen 07/20/2025 MUCUSU Occasional 07/20/2025 Urine Eosinophils: No components found for: UEOS Serology & Other labs: Lab Results Component Value Date HEPCAB Nonreactive 04/01/2025 HEPBSAG Nonreactive 04/01/2025 BNP: No results found for: BNP JOSELO: No results found for: JOSELO SPEP: Lab Results Component Value Date PROT 5.0 (L) 07/21/2025 UPEP: No components found for: LABPE C3: No results found for: C3 C4: No results found for: C4 MPO ANCA: No components found for: MPO PR3 ANCA: No components found for: PR3 Anti-GBM: No components found for: GBMABIGG Hep BsAg: No results found for: HEPBSAG Hep C AB: No results found for: HEPCAB Radiology: XR chest 1 view Narrative: XR CHEST 1 VIEW 07/20/2025 11:47 AM CLINICAL INDICATIONS: Cough COMPARISON: Chest radiograph 07/15/2025 FINDINGS: Upright AP view of the chest was obtained. Unchanged cardiomediastinal silhouette. No pneumothorax. Trace left pleural effusion. Bibasilar opacities, similar to prior. Impression: Similar bibasilar opacities which may represent atelectasis or pneumonia. Approved by:Beth Hauser07/20/2025 12:41 PM. I, Michel Valentine MD,have reviewed the image(s) and agree with the findings in this report. Electronically signed: Michel Valentine MD. Assessment: Acute kidney injury - improving Urine output 1300 ml in the last 24 hours History of ESRD Status post DDRT (03/31/2025) EBV +/+ CMV -/+ Need for immunosuppression Need for immunoprophylaxis COVID pneumonia On cefepime per ID Clostridium difficile infection on Vancomycin Hypomagnesemia Magnesium was 1.7 Currently replacing Hypocalcemia Calcium was 8.2 today. Vitamin D deficiency: Vitamin D level 16, PTH 45. On calcium/vitamin D supplement. Fever with Leukocytosis Pseudomonas UTI Plan: Immunosuppression Tacrolimus 4 mg daily Prednisone 10 mg daily Imuran 75 mg daily (on hold) Immunoprophylaxis Bactrim DS M/W/F Nystatin swish QID Valcyte discontinued due to being more than 3 month post transplant Continue Mg replacement Continue PO hydration Continue antibiotics per ID. Discussed with ID. Monitor I/Os, trend creatinine Monitor electrolytes, replete as needed Avoid nephrotoxic agents Thank you for the consultation. Please do not hesitate to contact us for any questions/concerns. Mónica continue to follow along with you. Tez Garcia MD Internal Medicine Resident, PGY-3 [facility] Cosigned by Wendy Lomeli MD at 07/21/2025 5:36 PM EST Associated attestation - Wendy Lomeli MD - 07/21/2025 5:36 PM EST By using the attestations below, the signing [...] be an additional personal documentation from me. * Jonny Merino MD - 07/21/2025 8:00 AM EST Images from the original note were not included. Infectious Diseases - Inpatient daily Progress Note - Patient name: Christal Suh Patient Today's Date and Time: 07/21/2025, 3:02 PM Admission Date: 07/13/2025 Assessment/Plan Impression: Fever of Unclear Etiology / Persistent Leukocytosis / Pseudomonas Bacteruria Tmax of 38.8 on 07/20 with WBC elevated to 21. Typical fever trends spontaneously would indicate a bacteremia; however, blood cultures so far negative. There are really no other great explanations from an ID perspective to explain this fever. He has some superficial wounds on his extremities that are non- infected. He does have pseudomonas in urine culture, but he is fairly asymptomatic. Patient does have some abdominal pain (minimal), so it may beworth obtaining a CT abdomen/pelvis. For now, we will continue IV Dapto + Cefepime and tailor appropriately. Hx of C.Diff Diarrhea Hx of C.Diff s/p treatment for 10 days. Treatment for C.Diff ended 07/18 (patient reports compliancy before hospitalization) COVID 19 Positive Test COVID antigen test here positive. CXR and lack of symptoms suggest against active symptomatic COVIDinfection Would continue airborne precautions. No indications for therapy at this time. HX of DDRT EBV +/+ CMV -/+ Management of graft per transplant team. Can continue tacrolimus + prednisone ABX PTX per transplant team Recommendations: Recommend following ABX regimen: IV Cefepime 2g q8h IV Daptomycin 650mg Continue TMP-SMX three times per week Would keep patient in airborne precautions for potential recent COVID test Transplant regimen per primary: Tacrolimus 4mg daily + Prednisone 5mg daily Recommend a CT abdomen pelvis given lack of other infectious etiology alternatives and mild abdominal pain. Subjective Interval history: Patient having no more fever spikes. Mild abdominal pain. Patient has no other symptoms or issues. Objective Physical Examination: BP 118/67 (BP Location: Right arm, Patient Position: Lying) Pulse 82 Temp 37.3 ??C (99.1 ??F) (Temporal) Resp 20 Ht 1.854 m (6' 0.99 ) Wt 80.3 kg (177 lb 0.5 oz) SpO2 100% BMI 23.36 kg/m?? Temperature Range: Temp: 37.3 ??C (99.1 ??F) Temp Av.8 ??C (98.3 ??F) Min: 36.3 ??C (97.3 ??F)Max: 37.3 ??C (99.1 ??F) General Appearance: Awake, alert, and in no apparent distress, nontoxic Eyes: Sclera anicteric; conjunctivae pink ENT: Oropharynx clear, without erythema, exudate, no thrush. Neck: Supple, without lymphadenopathy. Pulmonary/Chest: Clear to auscultation, without wheezes, rales, no rhonchi Cardiovascular: Regular rate and rhythm without murmurs Abdomen: soft, no palpable masses no organomegaly; normal bowel sounds. Scar present in RLQ abdomen. Mild tenderness in abdomen. Extremities: No cyanosis, edema, no joint effusions. Mild superficial wounds present on extremities. No evidence of line infection. Neurologic: Alert and oriented x 3, nonfocal; strength and sensation grossly normal Skin: No rash no lesions. No pallor Laboratory data: I have independently reviewed the following labs: Results from last 7 days Lab Units 07/21/25 0340 07/20/25 0515 07/19/25 0518 07/16/25 0508 07/15/25 1127 WBC AUTO 10*3/uL 19.07* 21.21* 13.15* < > 11.67* HEMOGLOBIN g/dL 8.9* 9.0* 8.8* < > 8.0* HEMATOCRIT % 27.2* 28.1* 27.3* < > 23.9* MCV fL 102.6* 104.5* 103.4* < > 100.8* PLATELETS AUTO 10*3/uL 160 179 177 < > 168 NEUTROS ABS 10*3/uL -- -- -- -- 8.78* LYMPHS ABSOLUTE 10*3/uL -- -- -- -- 1.67 MONOS ABSOLUTE 10*3/uL -- -- -- -- 0.95 EOS ABSOLUTE 10*3/uL -- -- -- -- 0.05 BASOS ABSOLUTE 10*3/uL -- -- -- -- 0.02 < > = values in this interval not displayed. Results from last 7 days Lab Units 07/21/25 0340 07/20/25 0515 07/19/25 0518 POTASSIUM mmol/L 3.8 4.1 4.2 CHLORIDE mmol/L 109* 111* 111* CO2 mmol/L 21 20* 22 BUN mg/dL 38* 33* 35* CREATININE mg/dL 1.37* 1.22 1.37* GLUCOSE mg/dL 148* 142* 133* CALCIUM mg/dL 8.4* 8.4* 8.2* ALK PHOS U/L 91 102 103 ALT U/L 16 18 18 AST U/L 12* 15 14 No lab exists for component: PROCALCITON Results from last 7 days Lab Units 07/20/25 1437 07/17/25 1212 GLUCOSE U MG/DL mg/dL Normal Normal UROBILINOGEN URINE mg/dL Normal Normal BILIRUBIN U Negative Negative WBC UR HPF /HPF >50* 6-10* No lab exists for component: TOXIGENICC Imaging Studies: I have reviewed myself the following imaging studies performed in the past 3 days: XR chest 1 view Result Date: 07/20/2025 Similar bibasilar opacities which may represent atelectasis or pneumonia. Approved by:Beth Hauser07/20/2025 12:41 PM. I, Michel Valentine MD,have reviewed the image(s) and agree with the findings in this report. Electronically signed: Michel Valentine MD. No CT results found for the past 3 days No MRI results found for the past 3 days Cultures: Results for orders placed or performed during the hospital encounter of 07/13/25 Blood culture, peripheral #2 Specimen: Blood, Venous Result Value Ref Range Blood Culture No growth at 18-24 hours Blood culture, peripheral #1 Specimen: Blood, Venous Result Value Ref Range Blood Culture No growth at 18-24 hours Medications: [Held by provider] azaTHIOprine, 50 mg, oral, Daily calcium carbonate-vitamin D3, 1 tablet, oral, Daily carvedilol, 25 mg, oral, BID with meals cefepime, 2 g, intravenous, q8h cholecalciferol, 5,000 Units, oral, Daily famotidine, 20 mg, oral, Nightly fidaxomicin, 200 mg, oral, BID finasteride, 5 mg, oral, Daily heparin (porcine), 5,000 Units, subcutaneous, BID hydrALAZINE, 100 mg, oral, TID megestrol, 800 mg, oral, Daily NIFEdipine XL, 30 mg, oral, Daily Oxygen Therapy, , inhalation, Continuous pantoprazole, 40 mg, oral, Daily before breakfast predniSONE, 5 mg, oral, Daily sodium bicarbonate, 650 mg, oral, BID sulfamethoxazole-trimethoprim, 160 mg of trimethoprim, oral, Once per day on Wednesday tacrolimus ER, 4 mg, oral, Daily tamsulosin, 0.8 mg, oral, Daily This progress note was completed using a voice clip loading machine adjuster system. Every effort was made to ensure accuracy; however, inadvertent computerized clip loading machine adjuster errors may be present. Thank you for allowing us to participate in the care of this patient. Our consultation addresses complex antimicrobial therapy counseling and treatment Jonny Merino MD [facility] Infectious Diseases Please contact us via [employer] chat during business hours. If no response in 15 min, call / page through the spreader operator automatic Cosigned by Philip Jones MD at 07/21/2025 6:15 PM EST Associated attestation - Philip Jones MD - 07/21/2025 6:15 PM EST I performed a history and physical examination of the patient Christal Suh, I independently reviewed the laboratory work and imaging as well as other studies mentioned in the above note; I have seenthe patient along with and discussed the management with the Infectious Diseases fellow, Jonny Merino MD I have reviewed the above note, I agree with the findings and plan of care with the following additions and corrections: It is unclear to me why this patient had sudden onset of high-grade fever after several days of being afebrile. COVID-19 does not explain this. C. difficile also does not. I do not see very evident phlebitis but had a line that had to be exchanged and a small skin tear in the left antecubital area. He does have abdominal discomfort and we recommended obtaining a CT of the abdomen. This was not done yet. He has been on daptomycin and cefepime since yesterday. Fevers down now. Blood cultures are negative. Will continue with this antibiotic combination until we have a more clear picture or 7 days if workup is negative Thank you for allowing us to participate in the care of this patient. Our consultation addresses complex antimicrobial therapy counseling and treatment . * Sera Pettit PTA - 07/20/2025 3:26 PM EST Physical Therapy AM Cancellation note for Wednesday07/20/2025 Pt per nursing is currently running a fever , when chief writer went in the room to talk to pt about whathe may want to do with therapy if anything , pt informed chief writer that he was not feeling well and did not want to do anything . Occupational Therapist Rehab Manager empathized with him and told him she understood because his nursehad informed chief writer that he was running a fever today degrees . Occupational Therapist Rehab Manager told pt she hoped he felt better and left his room , pt has his call light in place Attempted time : 09:36-09:37 Cosigned by Dean Dickson PT at 07/21/2025 1:07 PM EST * Wendy Lomeli MD - 07/20/2025 11:45 AM EST Images from the original note were not included. Nephrology Progress Note Patient : Christal Suh; 69 y.o. Location: [id number] Attending: Jayjay Robin MD Admit Date: 07/13/2025 Hospital Day: 7 Reason for Consult: Medical and immunosuppressive management in renal transplant patient Subjective: Interval history: 07/20/25 Patient seen and evaluated at bedside. Patient continuing to have good UOP with 1.5 L in the last 24 hours. Labs continuing to improve with Cr 1.22 (1.37) and BUN 33 (35). Electrolytes WNL. No acute concerns from renal perspective. Subjective History of present illness: Christal Suh is a 69 y.o. 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 He is Covid-19 positive and positive for C Diff. Patient has not been eating or drinking well. Notably, he was recently admitted to [facility] for a pseudomonas UTI from 05/29 to 06/15. Patient was evaluated at bedside. Patient is angry and intermittently cooperative with exam. After prolonged discussion, patient is frustrated with the number of people that keep coming into his rooms and he does not like that there are different doctors from various services asking him the same qu estions. His kidney function actually looks to be improving w/ creatinine of 1.19 today and stableelectrolytes. Objective Objective: Input/Output: Intake/Output Summary (Last 24 hours) at 07/20/2025 1146 Last data filed at 07/20/2025 0439 Gross per 24 hour Intake 580 ml Output 1550 ml Net -970 ml I/O last 3 completed shifts: In: 920 (11.6 mL/kg) [P.O.:720; I.V.:200 (2.5 mL/kg)] Out: 2300 (28.9 mL/kg) [Urine:2300 (0.8 mL/kg/hr)] Weight: 79.5 kg Vital signs: Temperature: Temp: 38.8 ??C (101.8 ??F) TMax: Temp (24hrs), Av.1 ??C (98.8 ??F), Min:36.4 ??C (97.5 ??F), Max:38.8 ??C (101.8 ??F) Respirations: Resp: (!) 31 Pulse: Heart Rate: 93 BP: BP: 143/73 BP Range: Systolic (24hrs), Av , Min:126 , Max:158 Diastolic (24hrs), Av, Min:73, Max:90 Wt Readings from Last 3 Encounters: 07/20/25 79.5 kg (175 lb 4.3 oz) 06/15/25 79 kg (174 lb 2.6 oz) 05/29/25 78.3 kg (172 lb 9.6 oz) Physical Exam Vitals reviewed. Constitutional: General: He is not in acute distress. Appearance: Normal appearance. HENT: Head: Normocephalic and atraumatic. Cardiovascular: Rate and Rhythm: Normal rate and regular rhythm. Pulmonary: Effort: Pulmonary effort is normal. No respiratory distress. Breath sounds: Normal breath sounds. Abdominal: General: Abdomen is flat. Palpations: Abdomen is soft. Skin: General: Skin is warm and dry. Neurological: General: No focal deficit present. Mental Status: He is alert and oriented to person, place, and time. Psychiatric: Mood and Affect: Mood normal. Behavior: Behavior normal. Current Medications: Scheduled Meds: azaTHIOprine, 50 mg, oral, Daily calcium carbonate-vitamin D3, 1 tablet, oral, Daily carvedilol, 25 mg, oral, BID with meals cefepime, 2 g, intravenous, Once Followed by cefepime, 2 g, intravenous, q8h cholecalciferol, 5,000 Units, oral, Daily famotidine, 20 mg, oral, Nightly fidaxomicin, 200 mg, oral, BID finasteride, 5 mg, oral, Daily hydrALAZINE, 100 mg, oral, TID megestrol, 800 mg, oral, Daily NIFEdipine XL, 30 mg, oral, Daily nystatin, 5 mL, Swish & Swallow, 4x daily Oxygen Therapy, , inhalation, Continuous pantoprazole, 40 mg, oral, Daily before breakfast predniSONE, 10 mg, oral, Daily sod phos di, mono-K phos mono, 500 mg, oral, q4h sodium bicarbonate, 650 mg, oral, BID sulfamethoxazole-trimethoprim, 160 mg of trimethoprim, oral, Once per day on Wednesday tacrolimus ER, 4 mg, oral, Daily tamsulosin, 0.8 mg, oral, Daily Continuous Infusions: PRN Meds: PRN medications: acetaminophen, albuterol, melatonin, ondansetron ODT OR ondansetron,Insert peripheral IV AND Saline lock IV AND sodium chloride Outpatient Medications: Medication Documentation Review Audit Reviewed by Adrienne Brown RN (Registered Nurse) on 07/13/25 at 2139 Medication Order Taking? Sig Documenting Provider Last Dose Status acetaminophen (Tylenol) 325 mg tablet [id number] Take 650 mg by mouth every 6 (six) hours if needed for mild pain (1-3 pain score) or fever greater than or equal to 38 degrees Celsius. Historical ProviderMD Active azaTHIOprine (Imuran) 75 mg tablet [id number] No Take 1 tablet (75 mg) by mouth in the morning for 96doses. Patient not taking: Reported on 07/13/2025 Grazyna Briseno CNP Not Taking Active calcium carbonate (Tums) 200 mg calcium (500 mg) chewable tablet [id number] Chew 3 tablets (1,500 mg)two times daily. Without food Patient taking differently: Chew 2 tablets two times daily. Without food Jayjay Robin MD Active calcium carbonate-vitamin D3 500 mg-5 mcg (200 unit) tablet [id number] Take 2 tablets by mouth two times daily. Patient taking differently: Take 1 tablet by mouth at bedtime. Grazyna Briseno CNP Active carvedilol (Coreg) 25 mg tablet [id number] 25 mg with breakfast and with evening meal. Historical ProviderMD Active cephalexin (Keflex) 500 mg capsule [id number] Take 500 mg by mouth four times daily. FOR INFECTION FOR 10 DAYS(07/13 - 07/23) Historical ProviderMD Active docusate sodium (Colace) 100 mg capsule [id number] Take 100 mg by mouth two times daily. Historical ProviderMD Active famotidine (Pepcid) 20 mg tablet [id number] Take 1 tablet (20 mg) by mouth at bedtime. Jayjay Robin MD Active finasteride (Proscar) 5 mg tablet [id number] Take 1 tablet (5 mg) by mouth in the morning. Do not crush, chew, or split. Jayjay Robin MD Active folic acid (Folvite) 1 mg tablet [id number] Take 1 tablet (1 mg) by mouth in the morning for 94 doses. Grazyna Briseno CNP Active guaiFENesin (Mucinex) 600 mg 12 hr tablet [id number] Take 1,200 mg by mouth two times daily. Do not crush, chew, or split. Cristal Vazquez MD Active hydrALAZINE (Apresoline) 100 mg tablet [id number] Take 1 tablet (100 mg) by mouth three times daily. Wendy Lomeli MD Active ipratropium-albuteroL (Duo-Neb) 0.5-2.5 mg/3 mL nebulizer solution [id number] Take 3 mL by nebulization every 6 (six) hours if needed for wheezing or shortness of breath. Cristal Vazquez MD Active magnesium glycinate 100 mg magnesium capsule [id number] Take 3 capsules (300 mg) by mouth three timesdaily. Jayjay Robin MD Active NIFEdipine XL (Procardia XL) 30 mg 24 hr tablet [id number] Take 1 tablet (30 mg) by mouth in the morning. Do not crush, chew, or split. Jayjay Robin MD Active nystatin (Mycostatin) 100,000 unit/mL suspension [id number] Take 5 mL (500,000 Units) by mouth four times daily. Swish and swallow Wendy Lomeli MD Active ondansetron (Zofran) 4 mg tablet [id number] Take 4 mg by mouth every 4 (four) hours if needed for nausea or vomiting. Cristal Vazquez MD Active pantoprazole (ProtoNix) 40 mg EC tablet [id number] Take 1 tablet (40 mg) by mouth before breakfast. Do not crush, chew, or split. Delano Klein MD Active predniSONE (Deltasone) 10 mg tablet [id number] Take 1 tablet (10 mg) by mouth in the morning. Jayjay Robin MD Active sod phos di, mono-K phos mono (K Phos Neutral) tablet [id number] Take 1 tablet by mouth two times daily. Jayjay Robin MD Active sulfamethoxazole-trimethoprim (Bactrim DS) 800-160 mg tablet [id number] Take 1 tablet by mouth 3 (three) times a week. On Wednesday, Wednesday, and Wednesday Wendy Lomeli MD Active tacrolimus ER (Envarsus XR) 4 mg tablet ER [id number] Take 1 tablet (4 mg) by mouth in the morning. Script total 8.5 mg daily Patient taking differently: Take 4 mg by mouth in the morning. 4 mg daily Wendy Lomeli MD Active tamsulosin (Flomax) 0.4 mg 24 hr capsule [id number] Take 2 capsules (0.8 mg) by mouth in the morning.Jayjay Robin MD Active valGANciclovir (Valcyte) 450 mg tablet [id number] Take 1 tablet (450 mg) by mouth in the morning. As directed. Wendy Lomeli MD Active vancomycin (Vancocin) 125 mg capsule [id number] Take 125 mg by mouth 2 times daily. Historical Provider, Active Labs: I have reviewed the patient's most recent labs as listed below: Chemistry: Lab Results Component Value Date NA 139 07/20/2025 K 4.1 07/20/2025 CL 111 (H) 07/20/2025 CO2 20 (L) 07/20/2025 ANIONGAP 12 07/20/2025 BUN 33 (H) 07/20/2025 CREATININE 1.22 07/20/2025 EGFR 63.8 07/20/2025 CALCIUM 8.4 (L) 07/20/2025 MG 1.7 (L) 07/20/2025 PHOS 2.0 (L) 07/20/2025 PTH 45 07/18/2025 VITD25 16.0 (L) 07/18/2025 ALBUMIN 3.5 07/20/2025 PROT 5.2 (L) 07/20/2025 AST 15 07/20/2025 ALT 18 07/20/2025 BILITOT 0.5 07/20/2025 BILIDIR 0.1 05/29/2025 ALKPHOS 102 07/20/2025 Hematology & Iron studies: Lab Results Component Value Date WBC 21.21 (H) 07/20/2025 HGB 9.0 (L) 07/20/2025 HCT 28.1 (L) 07/20/2025 MCV 104.5 (H) 07/20/2025 PLT 179 07/20/2025 IRON 36 (L) 07/15/2025 TIBC <91 (L) 07/15/2025 UIBC <55.0 (L) 07/15/2025 IRONSAT 07/15/2025 Comment: Unable to Calculate FERRITIN 437.0 (H) 07/15/2025 Urine chemistry Lab Results Component Value Date PROTUR Negative 07/17/2025 PROTUR 25.6 07/17/2025 CREATUR 53.0 07/17/2025 Urinalysis & Microscopy: Lab Results Component Value Date COLORU Light-Yellow 07/17/2025 CLARITYU Clear 07/17/2025 SPECGRAVU 1.013 07/17/2025 BENNETT 7.0 07/17/2025 PROTUR Negative 07/17/2025 PROTUR 25.6 07/17/2025 LEUKOCYTESU Moderate (A) 07/17/2025 NITRITEU Positive (A) 07/17/2025 GLUCOSEU Normal 07/17/2025 KETONESU Negative 07/17/2025 UROBILINOGEN Normal 07/17/2025 BLOODU Negative 07/17/2025 RBCU 0-2 07/17/2025 WBCU 6-10 (A) 07/17/2025 SQUAMEPIU None Seen 07/17/2025 MUCUSU Occasional 07/17/2025 Urine Eosinophils: No components found for: UEOS Serology & Other labs: Lab Results Component Value Date HEPCAB Nonreactive 04/01/2025 HEPBSAG Nonreactive 04/01/2025 BNP: No results found for: BNP JOSELO: No results found for: JOSELO SPEP: Lab Results Component Value Date PROT 5.2 (L) 07/20/2025 UPEP: No components found for: LABPE C3: No results found for: C3 C4: No results found for: C4 MPO ANCA: No components found for: MPO PR3 ANCA: No components found for: PR3 Anti-GBM: No components found for: GBMABIGG Hep BsAg: No results found for: HEPBSAG Hep C AB: No results found for: HEPCAB Radiology: XR chest 1 view Narrative: XR CHEST 1 VIEW 07/15/2025 1:23 PM CLINICAL INDICATIONS: Dyspnea. COMPARISON: 04/09/2025 FINDINGS: Heart size normal. Lungs are hyperinflated with congested lungs and effusions right more than left. Impression: Features of congestive heart failure. Electronically signed: Simone Cunningham MD. Assessment: Acute kidney injury - improving Serum creatinine today 1.22 (1.37) Urine output 1.5 L in the last 24 hours History of ESRD Status post DDRT (03/31/2025) EBV +/+ CMV -/+ Need for immunosuppression Need for immunoprophylaxis Covid pneumonia On cefepime per ID Clostridium difficile infection on Vancomycin Hypomagnesemia Magnesium was 1.7 Currently replacing Hypocalcemia Calcium was 8.2 today. Vitamin D deficiency: Vitamin D level 16, PTH 45. On calcium/vitamin D supplement. Plan: Immunosuppression Tacrolimus 4 mg daily Prednisone 10 mg daily Imuran 75 mg daily (on hold) Immunoprophylaxis Bactrim DS M/W/F Nystatin swish QID Valcyte discontinued due to being more than 3 month post transplant Continue Mg replacement Continue PO hydration Continue antibiotics per ID Monitor I/Os, trend creatinine Monitor electrolytes, replete as needed Avoid nephrotoxic agents Thank you for the consultation. Please do not hesitate to contact us for any questions/concerns. Mónica continue to follow along with you. Lenin Raymond, MS4 Medical Student [facility] As the teaching physician, I have personally performed or re-performed the history of present illness, physical exam and medical decision-making activities of the encounter and verified the medical student's documentation. I made pertinent changes as necessary to ensure accurate documentation. Wendy Lomeli MD Faculty, Division of Nephrology, Department of Medicine, [facility] [employer]. * YAMILKA Elder - 07/20/2025 9:20 AM EST Discharge Planning [facility] received insurance auth approval for admission good through 07/24/25. Treatment team notified. * Belen Fabian CNP - 07/20/2025 9:15 AM EST Images from the original note were not included. Infectious Diseases - Inpatient daily Progress Note - Patient name: Christal Suh Patient Today's Date and Time: 07/20/2025, 9:15 AM Admission Date: 07/13/2025 Assessment/Plan Impression/Plan Fever Leukocytosis Reports chills, sweats, sore throat and dry cough. Tmax today is 38.2. WBC increased to 21 He denies any urinary symptoms but in light of transplant, send urinalysis with reflex culture. Recent urine culture grew Pseudomonas aeruginosa Will send influenza A/B pcr. If positive, initiate Tamiflu Check chest xray to rule out developing pneumonia Send blood cultures x2 Empirically start cefepime Will follow closely C.Difficile infection Reported history of C.Diff diarrhea that the patient states has been on PO vancomycin facility Diarrhea improved after transition to Dificid Will continue Dificid for 10 days Asymptomatic bacteriuria Urine culture was done on 07/17 + again for pseudomonas He is not having symptoms. No indication for treatment at this time COVID 19 Positive Test Asymptomatic Isolation per institution policy HX of DDRT EBV +/+ CMV -/+ Management of graft per transplant team. Can continue tacrolimus + prednisone Continue Valcyte prophylactically Subjective Interval history: Patient seen and examined at bedside. Awake. Sleeps with the blanket over his head. Reports fever, chills today. +dry cough and sore throat. No headache. Reports post nasal drip. No chest pain. No nausea, vomiting. Denies diarrhea today. Denies burning with urination or hematuria. Verbalized frustration that he has not been able to rest. Objective Physical Examination: BP 158/90 (BP Location: Right arm, Patient Position: Lying) Pulse 83 Temp 36.5 ??C (97.7 ??F) (Temporal) Resp 23 Ht 1.854 m (6' 0.99 ) Wt 79.5 kg (175 lb 4.3 oz) SpO2 100% BMI 23.13 kg/m?? Temperature Range: Temp: 36.5 ??C (97.7 ??F) Temp Av.4 ??C (97.6 ??F) Min: 36.4 ??C (97.5 ??F)Max: 36.5 ??C (97.7 ??F) General Appearance: Awake, alert, and in no apparent distress, nontoxic Eyes: Sclera anicteric; conjunctivae ENT: Oropharynx clear, without erythema, exudate, no thrush. Neck: Supple, without lymphadenopathy. Pulmonary/Chest: clear to auscultation, no wheezes or rales, and unlabored breathing Cardiovascular: Regular rate and rhythm without murmurs Abdomen: soft, non-tender, nondistended, no palpable masses no organomegaly; normal bowel sounds Extremities: No cyanosis, edema, no joint effusions. Neurologic: Alert and oriented x 3, nonfocal. strength and sensation grossly normal Skin: No rash no lesions. Laboratory data: I have independently reviewed the following labs: Results from last 7 days Lab Units 07/20/25 0515 07/19/25 0518 07/18/25 0532 07/16/25 0508 07/15/25 1127 WBC AUTO 10*3/uL 21.21* 13.15* 13.61* < > 11.67* HEMOGLOBIN g/dL 9.0* 8.8* 8.9* < > 8.0* HEMATOCRIT % 28.1* 27.3* 27.0* < > 23.9* MCV fL 104.5* 103.4* 100.7* < > 100.8* PLATELETS AUTO 10*3/uL 179 177 173 < > 168 NEUTROS ABS 10*3/uL -- -- -- -- 8.78* LYMPHS ABSOLUTE 10*3/uL -- -- -- -- 1.67 MONOS ABSOLUTE 10*3/uL -- -- -- -- 0.95 EOS ABSOLUTE 10*3/uL -- -- -- -- 0.05 BASOS ABSOLUTE 10*3/uL -- -- -- -- 0.02 < > = values in this interval not displayed. Results from last 7 days Lab Units 07/20/25 0515 07/19/25 0518 07/18/25 0532 POTASSIUM mmol/L 4.1 4.2 4.0 CHLORIDE mmol/L 111* 111* 110* CO2 mmol/L 20* 22 25 BUN mg/dL 33* 35* 36* CREATININE mg/dL 1.22 1.37* 1.41* GLUCOSE mg/dL 142* 133* 143* CALCIUM mg/dL 8.4* 8.2* 8.3* ALK PHOS U/L 102 103 113* ALT U/L 18 18 19 AST U/L 15 14 15 No lab exists for component: PROCALCITON Results from last 7 days Lab Units 07/17/25 1212 GLUCOSE U MG/DL mg/dL Normal UROBILINOGEN URINE mg/dL Normal BILIRUBIN U Negative WBC UR HPF /HPF 6-10* No lab exists for component: TOXIGENICC Imaging Studies: I have reviewed myself the following imaging studies performed in the past 3 days: No X-ray results found for the past [address] results found for the past 3 days No MRI results found for the past 3 days Cultures: No results found for any visits on 07/13/25. Medications: azaTHIOprine, 50 mg, oral, Daily calcium carbonate-vitamin D3, 1 tablet, oral, Daily carvedilol, 25 mg, oral, BID with meals cholecalciferol, 5,000 Units, oral, Daily famotidine, 20 mg, oral, Nightly fidaxomicin, 200 mg, oral, BID finasteride, 5 mg, oral, Daily hydrALAZINE, 100 mg, oral, TID megestrol, 800 mg, oral, Daily NIFEdipine XL, 30 mg, oral, Daily nystatin, 5 mL, Swish & Swallow, 4x daily Oxygen Therapy, , inhalation, Continuous pantoprazole, 40 mg, oral, Daily before breakfast predniSONE, 10 mg, oral, Daily sod phos di, mono-K phos mono, 500 mg, oral, q4h sodium bicarbonate, 650 mg, oral, BID sulfamethoxazole-trimethoprim, 160 mg of trimethoprim, oral, Once per day on Wednesday tacrolimus ER, 4 mg, oral, Daily tamsulosin, 0.8 mg, oral, Daily This progress note was completed using a voice clip loading machine adjuster system. Every effort was made to ensure accuracy; however, inadvertent computerized clip loading machine adjuster errors may be present. Thank you for allowing us to participate in the care of this patient. Our consultation addresses complex antimicrobial therapy counseling and treatment Belen Fabian CNP [facility] Infectious Diseases Please contact us via [employer] during business hours. If no response in 15 min, call / page through the spreader operator automatic * Raegan Allison MD - 07/20/2025 7:01 AM EST Images from the original note were not included. Department of Urologic Surgery & Renal Transplantation DAILY PROGRESS NOTE Background: Christal Suh is a 69 y.o. year old male with a PMH of ESRD 2/2 HTN now s/p DDRT, earlier readmission for LLQ pain from diverticulitis and recent ischemic stroke and more recent TURP for urinary retention. He is admitted with FTT and reportedly COVID but no sifnificant symptoms. Procedures/Operations: - 05/11/25 - Rabets (Uro): TURP - 05/01/25 - Clar (Uro): Bedside cysto, removal of stent - 03/31/25 - Lobito (Transplant): DDRT Subjective/Interval Summary: Reports he feels okay, did have a fever episode this morning. He is not having as much stools and less diarrhea, 2 Bms yesterday but does endorse 3 today. He is eating with out issues. No burning with urination. Denies shortness of breath. He denies recent ambulation. Objective: Vitals: Vitals: 07/20/25 0439 BP: 158/90 Pulse: 83 Resp: 23 Temp: 36.5 ??C (97.7 ??F) SpO2: 100% I/O last 3 completed shifts: In: 920 (11.6 mL/kg) [P.O.:720; I.V.:200 (2.5 mL/kg)] Out: 2300 (28.9 mL/kg) [Urine:2300 (0.8 mL/kg/hr)] Weight: 79.5 kg No intake/output data recorded. Gen: Alert & oriented x3, no acute distress, not ill-appearing Neuro: Grossly intact, no obvious CN defects CV: Regular rate, radial pulses present Resp: Breathing comfortably on RA, no audible wheezing or accessory muscle use Abd: Soft, non-distended, Non-tender, well healed RLQ incision : no catheterization or external collection devices MSK: Moving all extremities, warm and well perfused, appropriate ROM, no edema Labs: Results from last 7 days Lab Units 07/20/25 0515 07/19/25 0518 07/18/25 0532 07/17/25 0501 07/16/25 0508 WBC AUTO 10*3/uL 21.21* 13.15* 13.61* 13.62* 10.35 HEMOGLOBIN g/dL 9.0* 8.8* 8.9* 8.6* 8.6* HEMATOCRIT % 28.1* 27.3* 27.0* 25.1* 25.8* PLATELETS AUTO 10*3/uL 179 177 173 181 181 Results from last 7 days Lab Units 07/20/25 0515 07/19/25 0518 07/18/25 0532 07/17/25 0501 07/16/25 0508 SODIUM mmol/L 139 140 140 141 139 POTASSIUM mmol/L 4.1 4.2 4.0 3.9 3.8 CO2 mmol/L 20* 22 25 25 22 BUN mg/dL 33* 35* 36* 41* 29* CREATININE mg/dL 1.22 1.37* 1.41* 1.63* 1.55* Medications: azaTHIOprine, 50 mg, oral, Daily calcium carbonate-vitamin D3, 1 tablet, oral, Daily carvedilol, 25 mg, oral, BID with meals cholecalciferol, 5,000 Units, oral, Daily famotidine, 20 mg, oral, Nightly fidaxomicin, 200 mg, oral, BID finasteride, 5 mg, oral, Daily hydrALAZINE, 100 mg, oral, TID megestrol, 800 mg, oral, Daily NIFEdipine XL, 30 mg, oral, Daily nystatin, 5 mL, Swish & Swallow, 4x daily Oxygen Therapy, , inhalation, Continuous pantoprazole, 40 mg, oral, Daily before breakfast predniSONE, 10 mg, oral, Daily sulfamethoxazole-trimethoprim, 160 mg of trimethoprim, oral, Once per day on Wednesday tacrolimus ER, 4 mg, oral, Daily tamsulosin, 0.8 mg, oral, Daily Imaging: XR chest 1 view Narrative: XR CHEST 1 VIEW 07/15/2025 1:23 PM CLINICAL INDICATIONS: Dyspnea. COMPARISON: 04/09/2025 FINDINGS: Heart size normal. Lungs are hyperinflated with congested lungs and effusions right more than left. Impression: Features of congestive heart failure. Electronically signed: Simone Cunningham MD. Assessment: Christal Suh is a 69 y.o. male with a PMH of ESRD 2/2 HTN now s/p DDRT, and history of ischemic stroke admitted for weakness and failure to thrive. Active Problems: S/p DDRT Need for immunosuppression H/o diverticulitis H/o stroke BPH with retention S/p TURP FTT COVID-19 C Diff diarrhea Severe protein-calorie malnutrition Urine Culture- Pseudomonas aeruginosa Leukocytosis Fever Plan: Diet: Regular, patient has severe PCM Nutritional supplements- Boost glucose control Patient would like these at his facility at discharge. Reports he does not enjoy the meals offered at his facility Dietary consulted Severe protein-calorie malnutrition Had edema at admission, Albumin infusion TiD > albumin, resolved Nutrition consulted Will obtain calorie count, eating better today, says he doesn't like the food at the rehab, that's why he has not been eating well Boost Tid, encouraged to eat better, eating okay, drinking boost shakes. Started megestrol on admission Immunosuppression: Maintenance: Imuran 50mg daily, we will hold it now due to fever/infection Tacrolimus 4mg daily, will switch to prograf IR 2mg twice daily on discharge to accommodate facility needs. Reduce Pred from 10 to 5 mg daily due to fever/infection Immunoprophylaxis: Restarted bactrim Restarted Nystatin Swish Valcyte 450 mg once daily-can be discontinued due to being more than 3 months post transplant Infection Recent C Diff, COVID-19 Consulted ID, appreciate recommendations No respiratory symptoms, did require Bipap on 07/15, on room air now, will continue to monitor Switched to dificid due to worsening diarrhea. 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 Fever today (07/20) Start cefepime empirically Blood cultures ordered Flu test ordered Pseudomonas in urine culture, possible UTI Continue flomax to ensure proper bladder emptying, check PVR Monitor renal function: UOP: 1.55 L/24 hr Renal function improving, will continue to monitor prospera/DSA/BK pending CMV negative (07/17) Results from last 7 days Lab Units 07/20/25 0515 07/19/25 0518 07/18/25 0532 07/17/25 0501 07/16/25 0508 07/15/25 0327 07/14/25 0337 CREATININE mg/dL 1.22 1.37* 1.41* 1.63* 1.55* 1.30 1.19 BUN mg/dL 33* 35* 36* 41* 29* 23 21 Anemia of chronic kidney disease: Hgb stable, monitor Results from last 7 days Lab Units 07/20/25 0515 07/19/25 0518 07/18/25 0532 07/17/25 0501 07/16/25 0508 07/15/25 1127 07/15/25 0327 WBC AUTO 10*3/uL 21.21* 13.15* 13.61* 13.62* 10.35 11.67* 10.32 HEMOGLOBIN g/dL 9.0* 8.8* 8.9* 8.6* 8.6* 8.0* 6.9* PLATELETS AUTO 10*3/uL 179 177 173 181 181 168 152 Fluid/Electrolytes: IVF: will start @ 75 ml/hr due to fever and possible dehydration Electrolytes: Monitor/replace per protocol Replete phos and calcium Metabolic acidosis - give oral bicarb 650 mg bid Results from last 7 days Lab Units 07/20/25 0515 07/19/25 0518 07/18/25 0532 07/17/25 0501 07/16/25 0508 07/15/25 0327 07/14/25 0337 SODIUM mmol/L 139 140 140 141 139 139 139 POTASSIUM mmol/L 4.1 4.2 4.0 3.9 3.8 4.1 4.4 CHLORIDE mmol/L 111* 111* 110* 108* 106 108* 109* CO2 mmol/L 20* 22 25 25 22 24 21 BUN mg/dL 33* 35* 36* 41* 29* 23 21 CREATININE mg/dL 1.22 1.37* 1.41* 1.63* 1.55* 1.30 1.19 PHOSPHORUS mg/dL 2.0* 2.2* 2.4* 2.5 4.0 3.0 3.4 CALCIUM mg/dL 8.4* 8.2* 8.3* 8.4* 8.5* 8.5* 7.7* Diuretics: none Hypertension: Home Rx: Carvedilol 25 mg bid, hydralazine 100 mg tid, nifedipine 30 mg daily Nephrology consulted, appreciate recommendations H/o stroke: on baby aspirin/ debility PT, OT consulted Will go back to the rehab once medically fit DVT prophylaxis: SCD cuffs, encourage ambulation Respiratory: Encourage incentive spirometry use every hour DISPO: stay inpatient due to new leukocytosis and fever. Not medically fit currently for discharge to rehab Raegan Allison MD Ascom [phone] Cosigned by Jayjay Robin MD at 07/20/2025 3:51 PM EST Associated attestation - Jayjay Robin MD - 07/20/2025 3:51 PM EST By using the attestations below, the signing [...] additional personal documentation from me. Additional Comments: Patient has fever and worsening leukocytosis. Started on empiric cefepime. Started on IV fluids also. Continue Dificid for C. difficile and monitor bowel movements. Not yet fit for discharge to rehab. Immunosuppression reviewed and lowered, Imuran stopped and prednisone lowered to 5 mg daily. Continue PT/OT and will eventually go to the rehab once medically safe. * Belen Fabian CNP - 07/19/2025 2:51 PM EST Images from the original note were not included. Infectious Diseases - Inpatient daily Progress Note - Patient name: Christal Suh Patient Today's Date and Time: 07/19/2025, 2:51 PM Admission Date: 07/13/2025 Assessment/Plan Impression/Plan C.Difficile infection Reported history of C.Diff diarrhea that the patient states has been on PO vancomycin facility Diarrhea improved after transition to Dificid Will continue Dificid for 10 days Asymptomatic bacteriuria Urine culture was done on 07/17 + again for pseudomonas He is not having symptoms. No indication for treatment at this time COVID 19 Positive Test Asymptomatic Isolation per institution policy HX of DDRT EBV +/+ CMV -/+ Management of graft per transplant team. Can continue tacrolimus + prednisone Continue PTX with Valcyte therapy Continue Valcyte prophylactically Subjective Interval history: Patient seen and examined at bedside. Awakens easily. Reports 2 loose stools today but starting to form. Occasional abdominal cramping. No nausea, vomiting. No shortness of breath or cough. Objective Physical Examination: BP 142/80 Pulse 77 Temp 36.6 ??C (97.9 ??F) (Temporal) Resp 17 Ht 1.854 m (6' 0.99 ) Wt 81.3 kg (179 lb 3.7 oz) SpO2 99% BMI 23.65 kg/m?? Temperature Range: Temp: 36.6 ??C (97.9 ??F) Temp Av.3 ??C (97.4 ??F) Min: 36 ??C (96.8 ??F) Max: 36.6 ??C (97.9 ??F) General Appearance: Awake, alert, and in no apparent distress, nontoxic Eyes: Sclera anicteric; conjunctivae ENT: Oropharynx clear, without erythema, exudate, no thrush. Neck: Supple, without lymphadenopathy. Pulmonary/Chest: clear to auscultation, no wheezes or rales, and unlabored breathing Cardiovascular: Regular rate and rhythm without murmurs Abdomen: soft, non-tender, nondistended, no palpable masses no organomegaly; normal bowel sounds Extremities: No cyanosis, edema, no joint effusions. Neurologic: Alert and oriented x 3, nonfocal. strength and sensation grossly normal Skin: No rash no lesions. Laboratory data: I have independently reviewed the following labs: Results from last 7 days Lab Units 07/19/25 0518 07/18/25 0532 07/17/25 0501 07/16/25 0508 07/15/25 1127 WBC AUTO 10*3/uL 13.15* 13.61* 13.62* < > 11.67* HEMOGLOBIN g/dL 8.8* 8.9* 8.6* < > 8.0* HEMATOCRIT % 27.3* 27.0* 25.1* < > 23.9* MCV fL 103.4* 100.7* 99.2* < > 100.8* PLATELETS AUTO 10*3/uL 177 173 181 < > 168 NEUTROS ABS 10*3/uL -- -- -- -- 8.78* LYMPHS ABSOLUTE 10*3/uL -- -- -- -- 1.67 MONOS ABSOLUTE 10*3/uL -- -- -- -- 0.95 EOS ABSOLUTE 10*3/uL -- -- -- -- 0.05 BASOS ABSOLUTE 10*3/uL -- -- -- -- 0.02 < > = values in this interval not displayed. Results from last 7 days Lab Units 07/19/25 0518 07/18/25 0532 07/17/25 0501 POTASSIUM mmol/L 4.2 4.0 3.9 CHLORIDE mmol/L 111* 110* 108* CO2 mmol/L 22 25 25 BUN mg/dL 35* 36* 41* CREATININE mg/dL 1.37* 1.41* 1.63* GLUCOSE mg/dL 133* 143* 135* CALCIUM mg/dL 8.2* 8.3* 8.4* ALK PHOS U/L 103 113* 115* ALT U/L 18 19 17 AST U/L 14 15 13 No lab exists for component: PROCALCITON Results from last 7 days Lab Units 07/17/25 1212 GLUCOSE U MG/DL mg/dL Normal UROBILINOGEN URINE mg/dL Normal BILIRUBIN U Negative WBC UR HPF /HPF 6-10* No lab exists for component: TOXIGENICC Imaging Studies: I have reviewed myself the following imaging studies performed in the past 3 days: No X-ray results found for the past [address] results found for the past 3 days No MRI results found for the past 3 days Cultures: No results found for any visits on 07/13/25. Medications: azaTHIOprine, 50 mg, oral, Daily calcium carbonate-vitamin D3, 1 tablet, oral, Daily carvedilol, 25 mg, oral, BID with meals cholecalciferol, 5,000 Units, oral, Daily famotidine, 20 mg, oral, Nightly fidaxomicin, 200 mg, oral, BID finasteride, 5 mg, oral, Daily hydrALAZINE, 100 mg, oral, TID megestrol, 800 mg, oral, Daily NIFEdipine XL, 30 mg, oral, Daily nystatin, 5 mL, Swish & Swallow, 4x daily Oxygen Therapy, , inhalation, Continuous pantoprazole, 40 mg, oral, Daily before breakfast predniSONE, 10 mg, oral, Daily sulfamethoxazole-trimethoprim, 160 mg of trimethoprim, oral, Once per day on Wednesday tacrolimus ER, 4 mg, oral, Daily tamsulosin, 0.8 mg, oral, Daily This progress note was completed using a voice clip loading machine adjuster system. Every effort was made to ensure accuracy; however, inadvertent computerized clip loading machine adjuster errors may be present. Thank you for allowing us to participate in the care of this patient. Our consultation addresses complex antimicrobial therapy counseling and treatment Belen Fabian CNP [facility] Infectious Diseases Please contact us via [employer] chat during business hours. If no response in 15 min, call / page through the spreader operator automatic * Anthony Stern MD - 07/19/2025 1:29 PM EST Images from the original note were not included. Nephrology Progress Note Patient : Christal Suh; 69 y.o. Location: 3176/3176-01 Attending: Jayjay Robin MD Admit Date: 07/13/2025 Hospital Day: 6 Reason for Consult: Medical and Immunosuppressive Management in Renal Transplant Subjective: History of present illness: Christal Suh is a 69 y.o. 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 He is Covid-19 positive and positive for C Diff. Patient has not been eating or drinking well. Notably, he was recently admitted to [facility] for a pseudomonas UTI from 05/29 to 06/15. Patient was evaluated at bedside. Patient is angry and intermittently cooperative with exam. After prolonged discussion, patient is frustrated with the number of people that keep coming into his rooms and he does not like that there are different doctors from various services asking him the same qu estions. His kidney function actually looks to be improving w/ creatinine of 1.19 today and stableelectrolytes. Interval history: 07/19/25 Patient was examined at bedside. He is currently stable and in no acute distress. Vital signs stable. Creatinine continues to improve. Discharge to SNF pending. No acute concerns from renal perspective. Objective: Input/Output: Intake/Output Summary (Last 24 hours) at 07/19/2025 1329 Last data filed at 07/19/2025 1200 Gross per 24 hour Intake 920 ml Output 1251 ml Net -331 ml I/O last 3 completed shifts: In: 1200 (14.8 mL/kg) [P.O.:1200] Out: 2851 (35.1 mL/kg) [Urine:2850 (1 mL/kg/hr); Stool:1] Weight: 81.3 kg Vital signs: Temperature: Temp: 36.6 ??C (97.9 ??F) TMax: Temp (24hrs), Av.3 ??C (97.4 ??F), Min:36 ??C (96.8 ??F), Max:36.6 ??C (97.9 ??F) Respirations: Resp: 17 Pulse: Heart Rate: 77 BP: BP: 142/80 BP Range: Systolic (24hrs), Av , Min:121 , Max:142 Diastolic (24hrs), Av, Min:73, Max:89 Wt Readings from Last 3 Encounters: 07/19/25 81.3 kg (179 lb 3.7 oz) 06/15/25 79 kg (174 lb 2.6 oz) 05/29/25 78.3 kg (172 lb 9.6 oz) Physical Exam Constitutional: General: He is not in acute distress. Appearance: Normal appearance. He is not ill-appearing. HENT: Head: Normocephalic and atraumatic. Cardiovascular: Rate and Rhythm: Normal rate and regular rhythm. Heart sounds: Normal heart sounds. No murmur heard. Pulmonary: Effort: Pulmonary effort is normal. No respiratory distress. Breath sounds: Normal breath sounds. Abdominal: General: Abdomen is flat. Palpations: Abdomen is soft. Musculoskeletal: General: No swelling. Right lower leg: No edema. Left lower leg: No edema. Skin: General: Skin is warm and dry. Neurological: Mental Status: He is alert and oriented to person, place, and time. Motor: No weakness. Psychiatric: Mood and Affect: Mood normal. Behavior: Behavior normal. Current Medications: Scheduled Meds: azaTHIOprine, 50 mg, oral, Daily calcium carbonate-vitamin D3, 1 tablet, oral, Daily carvedilol, 25 mg, oral, BID with meals cholecalciferol, 5,000 Units, oral, Daily famotidine, 20 mg, oral, Nightly fidaxomicin, 200 mg, oral, BID finasteride, 5 mg, oral, Daily hydrALAZINE, 100 mg, oral, TID megestrol, 800 mg, oral, Daily NIFEdipine XL, 30 mg, oral, Daily nystatin, 5 mL, Swish & Swallow, 4x daily Oxygen Therapy, , inhalation, Continuous pantoprazole, 40 mg, oral, Daily before breakfast predniSONE, 10 mg, oral, Daily sulfamethoxazole-trimethoprim, 160 mg of trimethoprim, oral, Once per day on Wednesday tacrolimus ER, 4 mg, oral, Daily tamsulosin, 0.8 mg, oral, Daily Continuous Infusions: PRN Meds: PRN medications: albuterol, melatonin, ondansetron ODT OR ondansetron, Insert peripheral IV AND Saline lock IV AND sodium chloride Outpatient Medications: Medication Documentation Review Audit Reviewed by Adrienne Brown RN (Registered Nurse) on 07/13/25 at 2139 Medication Order Taking? Sig Documenting Provider Last Dose Status acetaminophen (Tylenol) 325 mg tablet [id number] Take 650 mg by mouth every 6 (six) hours if needed for mild pain (1-3 pain score) or fever greater than or equal to 38 degrees Celsius. Historical Provider, Active azaTHIOprine (Imuran) 75 mg tablet [id number] No Take 1 tablet (75 mg) by mouth in the morning for 96doses. Patient not taking: Reported on 07/13/2025 Grazyna Briseno CNP Not Taking Active calcium carbonate (Tums) 200 mg calcium (500 mg) chewable tablet [id number] Chew 3 tablets (1,500 mg)two times daily. Without food Patient taking differently: Chew 2 tablets two times daily. Without food Jayjay Robin MD Active calcium carbonate-vitamin D3 500 mg-5 mcg (200 unit) tablet [id number] Take 2 tablets by mouth two times daily. Patient taking differently: Take 1 tablet by mouth at bedtime. Grazyna Briseno CNP Active carvedilol (Coreg) 25 mg tablet [id number] 25 mg with breakfast and with evening meal. Cristal Vazquez MD Active cephalexin (Keflex) 500 mg capsule [id number] Take 500 mg by mouth four times daily. FOR INFECTION FOR 10 DAYS(07/13 - 07/23) Cristal Vazquez MD Active docusate sodium (Colace) 100 mg capsule [id number] Take 100 mg by mouth two times daily. Cristal ProviderMD Active famotidine (Pepcid) 20 mg tablet [id number] Take 1 tablet (20 mg) by mouth at bedtime. Jayjay Robin MD Active finasteride (Proscar) 5 mg tablet [id number] Take 1 tablet (5 mg) by mouth in the morning. Do not crush, chew, or split. Jayjay Robin MD Active folic acid (Folvite) 1 mg tablet [id number] Take 1 tablet (1 mg) by mouth in the morning for 94 doses. Grazyna Briseno CNP Active guaiFENesin (Mucinex) 600 mg 12 hr tablet [id number] Take 1,200 mg by mouth two times daily. Do not crush, chew, or split. Cristal Vazquez MD Active hydrALAZINE (Apresoline) 100 mg tablet [id number] Take 1 tablet (100 mg) by mouth three times daily. Wendy Lomeli MD Active ipratropium-albuteroL (Duo-Neb) 0.5-2.5 mg/3 mL nebulizer solution [id number] Take 3 mL by nebulization every 6 (six) hours if needed for wheezing or shortness of breath. Cristal Vazquez MD Active magnesium glycinate 100 mg magnesium capsule [id number] Take 3 capsules (300 mg) by mouth three timesdaily. Jayjay Robin MD Active NIFEdipine XL (Procardia XL) 30 mg 24 hr tablet [id number] Take 1 tablet (30 mg) by mouth in the morning. Do not crush, chew, or split. Jayjay Robin MD Active nystatin (Mycostatin) 100,000 unit/mL suspension [id number] Take 5 mL (500,000 Units) by mouth four times daily. Swish and swallow Wendy Lomeli MD Active ondansetron (Zofran) 4 mg tablet [id number] Take 4 mg by mouth every 4 (four) hours if needed for nausea or vomiting. Historical ProviderMD Active pantoprazole (ProtoNix) 40 mg EC tablet [id number] Take 1 tablet (40 mg) by mouth before breakfast. Do not crush, chew, or split. Delano Klein MD Active predniSONE (Deltasone) 10 mg tablet [id number] Take 1 tablet (10 mg) by mouth in the morning. Jayjay Robin MD Active sod phos di, mono-K phos mono (K Phos Neutral) tablet [id number] Take 1 tablet by mouth two times daily. Jayjay Robin MD Active sulfamethoxazole-trimethoprim (Bactrim DS) 800-160 mg tablet [id number] Take 1 tablet by mouth 3 (three) times a week. On Wednesday, Wednesday, and Wednesday Wendy Lomeli MD Active tacrolimus ER (Envarsus XR) 4 mg tablet ER [id number] Take 1 tablet (4 mg) by mouth in the morning. Script total 8.5 mg daily Patient taking differently: Take 4 mg by mouth in the morning. 4 mg daily Wendy Lomeli MD Active tamsulosin (Flomax) 0.4 mg 24 hr capsule [id number] Take 2 capsules (0.8 mg) by mouth in the morning.Jayjay Robin MD Active valGANciclovir (Valcyte) 450 mg tablet [id number] Take 1 tablet (450 mg) by mouth in the morning. As directed. Wendy Lomeli MD Active vancomycin (Vancocin) 125 mg capsule [id number] Take 125 mg by mouth 2 times daily. Historical Provider, Active Labs: I have reviewed the patient's most recent labs as listed below: Chemistry: Lab Results Component Value Date NA 140 07/19/2025 K 4.2 07/19/2025 CL 111 (H) 07/19/2025 CO2 22 07/19/2025 ANIONGAP 11 07/19/2025 BUN 35 (H) 07/19/2025 CREATININE 1.37 (H) 07/19/2025 EGFR 55.5 (L) 07/19/2025 CALCIUM 8.2 (L) 07/19/2025 MG 1.7 (L) 07/19/2025 PHOS 2.2 (L) 07/19/2025 PTH 45 07/18/2025 VITD25 16.0 (L) 07/18/2025 ALBUMIN 3.4 (L) 07/19/2025 PROT 5.0 (L) 07/19/2025 AST 14 07/19/2025 ALT 18 07/19/2025 BILITOT 0.4 07/19/2025 BILIDIR 0.1 05/29/2025 ALKPHOS 103 07/19/2025 Hematology & Iron studies: Lab Results Component Value Date WBC 13.15 (H) 07/19/2025 HGB 8.8 (L) 07/19/2025 HCT 27.3 (L) 07/19/2025 MCV 103.4 (H) 07/19/2025 PLT 177 07/19/2025 IRON 36 (L) 07/15/2025 TIBC <91 (L) 07/15/2025 UIBC <55.0 (L) 07/15/2025 IRONSAT 07/15/2025 Comment: Unable to Calculate FERRITIN 437.0 (H) 07/15/2025 Urine chemistry Lab Results Component Value Date PROTUR Negative 07/17/2025 PROTUR 25.6 07/17/2025 CREATUR 53.0 07/17/2025 Urinalysis & Microscopy: Lab Results Component Value Date COLORU Light-Yellow 07/17/2025 CLARITYU Clear 07/17/2025 SPECGRAVU 1.013 07/17/2025 BENNETT 7.0 07/17/2025 PROTUR Negative 07/17/2025 PROTUR 25.6 07/17/2025 LEUKOCYTESU Moderate (A) 07/17/2025 NITRITEU Positive (A) 07/17/2025 GLUCOSEU Normal 07/17/2025 KETONESU Negative 07/17/2025 UROBILINOGEN Normal 07/17/2025 BLOODU Negative 07/17/2025 RBCU 0-2 07/17/2025 WBCU 6-10 (A) 07/17/2025 SQUAMEPIU None Seen 07/17/2025 MUCUSU Occasional 07/17/2025 Urine Eosinophils: No components found for: UEOS Serology & Other labs: Lab Results Component Value Date HEPCAB Nonreactive 04/01/2025 HEPBSAG Nonreactive 04/01/2025 BNP: No results found for: BNP JOSELO: No results found for: JOSELO SPEP: Lab Results Component Value Date PROT 5.0 (L) 07/19/2025 UPEP: No components found for: LABPE C3: No results found for: C3 C4: No results found for: C4 MPO ANCA: No components found for: MPO PR3 ANCA: No components found for: PR3 Anti-GBM: No components found for: GBMABIGG Hep BsAg: No results found for: HEPBSAG Hep C AB: No results found for: HEPCAB Radiology: XR chest 1 view Narrative: XR CHEST 1 VIEW 07/15/2025 1:23 PM CLINICAL INDICATIONS: Dyspnea. COMPARISON: 04/09/2025 FINDINGS: Heart size normal. Lungs are hyperinflated with congested lungs and effusions right more than left. Impression: Features of congestive heart failure. Electronically signed: Simone Cunningham MD. Assessment: Acute kidney injury Serum creatinine improved to 1.37. Urine output has been adequate w/ 1.75 L over the past 24 hours. History of ESRD. Status post DDRT (03/31/2025) on immunosuppressive therapy. Immunosuppression: tacrolimus 4 mg daily, prednisone 10 mg daily, Imuran 75 mg daily (on hold). Covid pneumonia Clostridium difficile infection on Vancomycin Hypomagnesemia Magnesium was 1.7 today. Hypocalcemia Calcium was 8.2 today. Vitamin D deficiency: Vitamin D level 16, PTH 45. On calcium/vitamin D supplement. Plan: Continue to hold Imuran until patient's symptoms resolve, then resume home dose. Continue tacrolimus 4 mg daily and prednisone 10 mg daily. Start Vitamin D 5,000 units daily. Continue calcium supplements Patient is stable and not on supplemental oxygen. Will likely be okay for discharge and follow up in the outpatient clinic. Encourage PO hydration given MEDARDO Monitor I/Os, trend creatinine Monitor electrolytes, replete as needed Avoid nephrotoxic agents Thank you for the consultation. Please do not hesitate to contact us for any questions/concerns. Wewill continue to follow along with you. Anthony Stern MD, PhD Internal Medicine Resident, PGY-3 [facility] Cosigned by Wendy Lomeli MD at 07/19/2025 7:25 PM EST Associated attestation - Wendy Lomeli MD - 07/19/2025 7:25 PM EST By using the attestations below, the signing [...] be an additional personal documentation from me. * SY Dos Santos - 07/19/2025 9:24 AM EST Occupational Therapy Occupational Therapy Treatment Patient Name: Christal Suh : 1955 Today's Date: 07/19/2025 Start Time: 923 Stop Time: 1002 Time Calculation (min): 38 min OT Therapeutic Procedures Time Entry Self Care/Home Management (ADLs) Time Entry: 15 Therapeutic Activity Time Entry: 23 Problem List Problem List[1] 07/19/25 0924 OT Last Visit OT Received On 07/19/25 General Subjective Well before I do anything I need someone to come in here to help get me cleaned up. Session Comments Pt pleasant and cooperative throughout entire therapy session this date. (Upon arrival into room, pt supine in bed. Pt states he had a BM and needs help getting cleaned up.Pt agreeable to let DAN assist in cleaning him up.) Treatment Duration (min) 38 Minutes Response to Previous Treatment Patient with no complaints from previous session Family/Caregiver Present No Precautions Medical Precautions fall risk;isolation;telemetry;IV;Purewick (COVID isolation, Cdiff isolation) Pain Assessment Pain Assessment No/denies pain Pain Score 0 - No pain Cognition Overall Cognitive Status WFL Arousal/Alertness Appropriate responses to stimuli Orientation Level Oriented X4 Following Commands Follows all commands and directions without difficulty Safety Judgment Decreased awareness of need for assistance Awareness of Errors Assistance required to identify errors made;Assistance required to correct errors made Deficits Fully aware of deficits Attention Span Appears intact Memory Appears intact Problem Solving Assistance required to identify errors made;Assistance required to generate solutions Communication Intact Cognition Comments Pt required min verbal cues throughout session for safety, as well as for initiation, sequencing, and follow through of tasks. General Assessment Hearing Intact Skin Integrity Significant swelling noted to IRINA at IV site. RN notified and aware. Edema None observed Hand Dominance Right LE Bathing LE Bathing Level of Assistance Maximum assistance LE Bathing Where Assessed Bed level LE Bathing Comments Pt required Max A to complete guru care post BM in brief. Pt able to assist in rolling from side to side in bed but required Max A for LE bathing. LE Dressing LE Dressing Yes Shoe Level of Assistance Setup;Close supervision Adult Briefs Level of Assistance Maximum assistance LE Dressing Where Assessed Bed level;Edge of bed (Bed level to wang brief; EOB to wang shoes) LE Dressing Comments Pt donned shoes while seated at EOB requiring setup as well as close supervision to ensure no LOB as well as to ensure overall pt safety. Pt required Max A while supine in bed todonn brief post toileting tasks. Toileting Toileting Level of Assistance Maximum assistance Where Assessed Bed level Toileting Comments Pt required Max A to complete guru care post BM in brief. Pt able to assist in rolling from side to side in bed but required Max A for toileting tasks. (Pt has Purewick in place as well.) Functional Standing Tolerance Functional Standing Tolerance Comments Pt able to tolerate standing during transfers as well as during short functional mobility within room. Static Sitting Balance Static Sitting-Balance Support Right upper extremity supported;Left upper extremity supported;Feet supported Static Sitting-Level of Assistance Close supervision Static Sitting-Comment/Number of Minutes Seated EOB Dynamic Sitting Balance Dynamic Sitting-Balance Support Right upper extremity supported;Left upper extremity supported;Unilateral upper extremity supported;No upper extremity supported;Feet supported Dynamic Sitting-Balance Lateral lean;Forward lean;Reaching for objects;Reaching across midline;Trunk control activities (Completing ADL tasks.) Dynamic Sitting Balance-Level of Assistance Contact guard Dynamic Sitting-Comments Pt demos 1 instance of LOB while donning shoes at EOB. Static Standing Balance Static Standing-Balance Support Right upper extremity supported;Left upper extremity supported;Withdevice (RW) Static Standing-Level of Assistance Contact guard Dynamic Standing Balance Dynamic Standing-Balance Support Right upper extremity supported;Left upper extremity supported;Unilateral upper extremity supported;No upper extremity supported;With device (RW) Dynamic Standing-Balance Lateral lean;Forward lean;Reaching for objects;Reaching across midline (Completing transfers as well as short functional mobility in room.) Dynamic Standing Balance-Level of Assistance Contact guard Bed Mobility Bed Mobility Yes Bed Mobility 1 Bed Mobility From 1 Supine Bed Mobility Type 1 To Bed Mobility to 1 Short sit Level of Assistance 1 Close supervision Bed Mobility Comments 1 HOB elevated, use of siderails Transfers Transfer Yes Transfer 1 Transfer From 1 Sit;Bed Transfer Type 1 To Transfer to 1 Stand Technique 1 Sit to stand Transfer Device 1 rolling walker Transfer Level of Assistance 1 Minimum assistance;Contact guard Trials/Comments 1 Min A for initiation of stand, CGA for transfer. Transfers 2 Transfer From 2 Stand Transfer Type 2 To Transfer to 2 Sit;Chair with arms Technique 2 Stand to sit Transfer Device 2 rolling walker Transfer Level of Assistance 2 Contact guard Trials/Comments 2 CGA for assist in controlled decent. Activity Tolerance Activity Tolerance Comments Pt demonstrated good activity tolerance this date. Pt actively participated in the therapy session and was able to tolerate multiple standing transfers with minimal signs of fatigue. Pt also engaged in ADL tasks as well as short-distance mobility, further indicating improved endurance and overall activity tolerance. Vital signs remained stable throughout the session, with no reports of dizziness, shortness of breath, or adverse changes noted. Therapeutic Activity Therapeutic Activity Time Entry 23 Other Activity Other Activity 1 Pt seated in bedside chair at EOS, call light and tray table in reach, RN informedon pt performance, all needs met. Other Activity 2 RN approved OOB session this date. OT Assessment OT Impairments Decreased ADL status;Decreased endurance;Decreased functional mobility;Decreased safe judgment during ADL;Decreased IADLs OT Assessment/BETH Summary Patient is progressing appropriately toward established therapy goals. The patient demonstrated good safety awareness and insight into current deficits during today???s session. Continued occupational therapy services would benefit pt to further improve ADL/IADL performance, enhance safety awareness, increase trunk control, and improve activity tolerance during functional tasks in order to support the patient???s maximum functional potential. Prognosis Good Evaluation/Treatment Tolerance Patient tolerated treatment well Medical Staff Made Aware Yes Strengths Support and attitude of living partners OT Education/Comments Patient was provided education on bed mobility, the OT plan of care, the importance of participating in therapy, endurance and activity tolerance, transfer techniques, fall prevention strategies, compensatory strategies, safety precautions, dressing techniques, and the use of adaptive equipment, with good understanding demonstrated. Plan Level of assist 1 assist Treatment Interventions ADL retraining;Endurance training;Neuromuscular reeducation;Functional transfer training;Patient/family training;Compensatory technique education;Equipment evaluation/education OT Plan Skilled OT OT Frequency 4 times per week OT Discharge Recommendations Patient is able to return to prior living environment (Pt admitted from SNF) Equipment Recommended other (TBA) OT - Discharge Recommendations Placed Yes Outcome Assessments 07/19/25 0924 AM-PAC 6 Clicks Putting on and taking off regular lower body clothing? 3 Bathing(Including washing,rinsing,drying)? 2 Toileting, which includes using the toilet,bedpan,or urinal? 2 Putting on and taking off regular upper body clothing? 3 Taking care of personal grooming such as brushing teeth? 3 Eating meals? 4 Total Score OT [facility] 17 OT Goals: Multi-Disciplinary Problems (from Occupational Therapy) Active Problems Problem: OT Misc Start Date: 07/16/25 Goal Start Date Expected End Date End Date Patient will perform functional transfers and functional mobility with SBA and use of DME PRN. 07/16/25 07/30/25 -- Goal Start Date Expected End Date End Date Patient will complete UB/LB ADLs with SUP A using AE/DME PRN 07/16/25 07/30/25 -- Goal Start Date Expected End Date End Date Patient will perform toilet transfer and toileting tasks with SBA to improve IND with ADLs 07/16/2512/29/25 -- Goal Start Date Expected End Date End Date Patient will complete basic grooming tasks standing at sink with SUP A to improve participation in ADLs. 07/16/25 07/30/25 -- Goal Start Date Expected End Date End Date Patient will verbalize and demonstrate proper use of 3+ energy conservation/work simplification techniques for increased ADL participation. 07/16/25 07/30/25 -- Goal Start Date Expected End Date End Date Patient will demonstrate 5+ minute dynamic standing balance task with SUP A and use of least restrictive device. 07/16/25 07/30/25 -- Rosa Garcia DAN/L Time In: 0924 Time Out: 1002 Total Time: 38 Minutes Total Units: 3 Units (1 SC, 2 TA) [1] Patient Active Problem List Diagnosis Hypertensive disorder Diverticular disease Vitamin D deficiency Proteinuria Secondary hyperparathyroidism of renal origin Anemia in chronic kidney disease (CKD) History of DVT (deep vein thrombosis) Renal cyst, left Gout Recurrent sinusitis NSAID long-term use CKD (chronic kidney disease) stage 5, GFR less than 15 ml/min ([facility]) Lung nodule seen on imaging study H/O splenectomy Kidney replaced by transplant GI bleed Diverticulitis Encounter for aftercare following kidney transplant Immunosuppression Benign prostatic hyperplasia with urinary retention Hypophosphatemia Bilateral lower extremity edema Hypocalcemia Hypomagnesemia Diarrhea Immunosuppressive management encounter following kidney transplant Hypoalbuminemia Suspected stroke patient last known to be well more than 2 hours ago Cerebrovascular accident (CVA) ([facility]) BPH with obstruction/lower urinary tract symptoms BPH with urinary obstruction Urinary retention Gastroesophageal reflux disease without esophagitis S/P TURP Leucocytosis UTI (urinary tract infection) Transplant recipient S/P kidney transplant Cosigned by Ruth Rodriguez OT at 07/19/2025 2:49 PM EST * Grazyna Briseno CNP - 07/19/2025 7:16 AM EST Images from the original note were not included. Department of Urologic Surgery & Renal Transplantation DAILY PROGRESS NOTE Background: Christal Suh is a 69 y.o. year old male with a PMH of ESRD 2/2 HTN now s/p DDRT, earlier readmission for LLQ pain from diverticulitis and recent ischemic stroke and more recent TURP for urinary retention. He is admitted with FTT and reportedly COVID but no sifnificant symptoms. Procedures/Operations: - 05/11/25 - Rabets (Uro): TURP - 05/01/25 - Clar (Uro): Bedside cysto, removal of stent - 03/31/25 - Lobito (Transplant): DDRT Subjective/Interval Summary: NAEO HD WNL Feeling well Diarrhea waxes and wanes but still present No nausea or vomiting, tolerating diet; drinking boosts No SOB Voiding well, UOP 1.75L Ambulating well Positive Pseudomonas Ucx- s/s pending- spoke to ID due to asymptomatic bacteruria and worsening c-diff, will not be treating based off of urine culture. Objective: Vitals: Vitals: 07/19/25 0405 BP: 121/77 Pulse: 78 Resp: 13 Temp: 36 ??C (96.8 ??F) SpO2: 97% I/O last 3 completed shifts: In: 1200 (14.8 mL/kg) [P.O.:1200] Out: 2851 (35.1 mL/kg) [Urine:2850 (1 mL/kg/hr); Stool:1] Weight: 81.3 kg No intake/output data recorded. Gen: Alert & oriented x3, no acute distress, not ill-appearing Neuro: Grossly intact, no obvious CN defects CV: Regular rate, radial pulses present Resp: Breathing comfortably on RA, no audible wheezing or accessory muscle use Abd: Soft, non-distended, Non-tender, well healed RLQ incision : no catheterization or external collection devices MSK: Moving all extremities, warm and well perfused, appropriate ROM, no edema Labs: Results from last 7 days Lab Units 07/19/25 0518 07/18/25 0532 07/17/25 0501 07/16/25 0508 07/15/25 1127 WBC AUTO 10*3/uL 13.15* 13.61* 13.62* 10.35 11.67* HEMOGLOBIN g/dL 8.8* 8.9* 8.6* 8.6* 8.0* HEMATOCRIT % 27.3* 27.0* 25.1* 25.8* 23.9* PLATELETS AUTO 10*3/uL 177 173 181 181 168 Results from last 7 days Lab Units 07/19/25 0518 07/18/25 0532 07/17/25 0501 07/16/25 0508 07/15/25 0327 SODIUM mmol/L 140 140 141 139 139 POTASSIUM mmol/L 4.2 4.0 3.9 3.8 4.1 CO2 mmol/L 22 25 25 22 24 BUN mg/dL 35* 36* 41* 29* 23 CREATININE mg/dL 1.37* 1.41* 1.63* 1.55* 1.30 Medications: azaTHIOprine, 50 mg, oral, Daily calcium carbonate-vitamin D3, 1 tablet, oral, Daily carvedilol, 25 mg, oral, BID with meals famotidine, 20 mg, oral, Nightly fidaxomicin, 200 mg, oral, BID finasteride, 5 mg, oral, Daily hydrALAZINE, 100 mg, oral, TID megestrol, 800 mg, oral, Daily NIFEdipine XL, 30 mg, oral, Daily nystatin, 5 mL, Swish & Swallow, 4x daily Oxygen Therapy, , inhalation, Continuous pantoprazole, 40 mg, oral, Daily before breakfast predniSONE, 10 mg, oral, Daily sulfamethoxazole-trimethoprim, 160 mg of trimethoprim, oral, Once per day on Wednesday tacrolimus ER, 4 mg, oral, Daily tamsulosin, 0.8 mg, oral, Daily Imaging: XR chest 1 view Narrative: XR CHEST 1 VIEW 07/15/2025 1:23 PM CLINICAL INDICATIONS: Dyspnea. COMPARISON: 04/09/2025 FINDINGS: Heart size normal. Lungs are hyperinflated with congested lungs and effusions right more than left. Impression: Features of congestive heart failure. Electronically signed: Simone Cunningham MD. Assessment: Christal Suh is a 69 y.o. male with a PMH of ESRD 2/2 HTN now s/p DDRT, and history of ischemic stroke admitted for weakness and failure to thrive. Active Problems: S/p DDRT Need for immunosuppression H/o diverticulitis H/o stroke BPH with retention S/p TURP FTT COVID-19 C Diff diarrhea Severe protein-calorie malnutrition Plan: Diet: Regular, patient has severe PCM Nutritional supplements- Boost glucose control Patient would like these at his facility at discharge. Reports he does not enjoy the meals offered at his facility Dietary consulted Severe protein-calorie malnutrition Had edema at admission, Albumin infusion TiD > albumin, resolved Nutrition consulted Will obtain calorie count, eating better today, says he doesn't like the food at the rehab, that's why he has not been eating well Will give boost shakes tid, encouraged to eat better, eating okay, drinking boost shakes. Started megestrol on admission Immunosuppression: Maintenance: Imuran 50mg daily Tacrolimus 4mg daily, will switch to prograf IR 2mg twice daily on discharge to accommodate facility needs. Pred 10 mg daily Immunoprophylaxis: Restarted bactrim Restarted Nystatin Swish Valcyte 450 mg once daily-can be discontinued due to being more than 3 months post transplant Infection Recent C Diff, COVID-19 Consulted ID, appreciate recommendations No respiratory symptoms, did require Bipap on 07/15, on room air now, will continue to monitor Switched to dificid due to worsening diarrhea. 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 Leukocytosis, stable, likely from C Diff, monitor , does have h/o splenectomy Positive Pseudomonas Ucx- asymptomatic bacteruria in the setting of c-diff infection. Will hold offon treatment Monitor renal function: UOP: 1.75 L/24 hr Renal function improving over past two days, will continue to monitor prospera/DSA/BK and CMV pending Results from last 7 days Lab Units 07/19/25 0507/18/25 0532 07/17/25 0501 07/16/25 0508 07/15/25 03207/14/2533607/13/25 2048 CREATININE mg/dL 1.37* 1.41* 1.63* 1.55* 1.30 1.19 1.26 BUN mg/dL 35* 36* 41* 29* 23 21 22 Anemia of chronic kidney disease: Results from last 7 days Lab Units 07/19/25 0518 07/18/25 0532 07/17/25 0501 07/16/25 0508 07/15/25 1127 07/15/25 03207/14/25 033 WBC AUTO 10*3/uL 13.15* 13.61* 13.62* 10.35 11.67* 10.32 10.57 HEMOGLOBIN g/dL 8.8* 8.9* 8.6* 8.6* 8.0* 6.9* 7.8* PLATELETS AUTO 10*3/uL 177 173 181 181 168 152 162 Fluid/Electrolytes: IVF: none Electrolytes: Monitor/replace per protocol Results from last 7 days Lab Units 07/19/25 0518 07/18/25 0532 07/17/25 0501 07/16/25 0508 07/15/25 0327 07/14/25 0337 07/13/25 2048 SODIUM mmol/L 140 140 141 139 139 139 138 POTASSIUM mmol/L 4.2 4.0 3.9 3.8 4.1 4.4 4.6 CHLORIDE mmol/L 111* 110* 108* 106 108* 109* 109* CO2 mmol/L 22 25 25 22 24 21 24 BUN mg/dL 35* 36* 41* 29* 23 21 22 CREATININE mg/dL 1.37* 1.41* 1.63* 1.55* 1.30 1.19 1.26 PHOSPHORUS mg/dL 2.2* 2.4* 2.5 4.0 3.0 3.4 3.4 CALCIUM mg/dL 8.2* 8.3* 8.4* 8.5* 8.5* 7.7* 7.4* Diuretics: none Hypertension: Home Rx: Carvedilol, hydralazine, nifedipine Nephrology consulted, appreciate recommendations H/o stroke: on baby aspirin/ debility PT, OT consulted PRM consulted DVT prophylaxis: SCD cuffs, encourage ambulation Respiratory: Encourage incentive spirometry use every hour DISPO: discharge ready when precert is completed Grazyna Briseno CNP Ascom [phone] * Sera Pettit PTA - 07/18/2025 4:30 PM EST Physical Therapy Physical Therapy Treatment Patient Name: Christal Suh : 1955 Today's Date: 07/18/2025 Problem List[1] Time : 16:00-16:28 07/18/25 1630 PT Last Visit PT Received On 07/18/25 General Subjective Pt has been cleared medically by nursing staff , upon chief writer entering the room pt was supine in the bed awake . Pt seemed to be tired of being sick , told chief writer he has been sick since april 2025 this year. Occupational Therapist Rehab Manager told pt she was sorry for what he was going through but lets try to dosome therapy , see details below of treatment session , pt agreeable to work with therapy not confident in his own functional abilities . Activity Tolerance Endurance Stage I Precautions Medical Precautions bed alarm;isolation;telemetry Pain Assessment Pain Assessment No/denies pain Cognition Orientation Level Oriented X4 Therapeutic Exercise Therapeutic Exercise Activity 1 AROM /AAROM with minimal manual resistance for bilat LE's hip and knee flexion , hip abduction adduction with hips and knees bent , SAQ , bridging 10 reps 1 set . Static Sitting Balance Static Sitting-Balance Support Left upper extremity supported;Right upper extremity supported Static Sitting-Level of Assistance Close supervision Static Sitting-Comment/Number of Minutes no LOB Static Standing Balance Static Standing-Balance Support Left upper extremity supported;Right upper extremity supported;Withdevice Static Standing-Level of Assistance Contact guard Static Standing-Comment/Number of Minutes 15% tactile cues for static standing balance Dynamic Standing Balance Dynamic Standing-Balance Support Unilateral upper extremity supported;With device Dynamic Standing-Balance Lateral lean;Forward lean;Reaching for objects;Reaching across midline (reaching towards floor reaching for writers hand at different heights) Gait Training Gait Training Activity 1 pre gait activities done secondary to pt stating he does not feel he can walk pt able to do stepping strategies forward backward alternating LE's with 25% tactile cues for assisting pt with maintaining Knee extension during stance phase when other LE is stepping forward backward for additional support Bed Mobility Bed Mobility Yes Bed Mobility 1 Bed Mobility From 1 Supine Bed Mobility Type 1 To and from Bed Mobility to 1 Short sit Level of Assistance 1 Contact guard Bed Mobility Comments 1 15% tactile cues to assist pt with getting his LE's off and back on the bed. Transfers Transfer Yes Transfer 1 Transfer From 1 Sit;Bed Transfer Type 1 To and from Transfer to 1 Stand Technique 1 Sit to stand;Stand to sit Transfer Device 1 rolling walker Transfer Level of Assistance 1 Minimum assistance Other Activity Other Activity 2 pt back in bed with bed alarm on and call light available to pt PT Assessment PT Assessment/PLASTIC [employer]S FABRICATOR TRIMMER Summary pt participated with therapy Plan Treatment/Interventions Functional transfer training;Bed mobility;Balance training;LE strengthening/ROM PT Discharge Recommendations Patient is able to return to prior living environment (came from a SNF.) Goals: Multi-Disciplinary Problems (from Physical Therapy) Active Problems Problem: PT Misc Start Date: 07/16/25 Goal Start Date Expected End Date End Date Patient to demonstrate the ability to complete all bed mobility independently with HOB progressing to flat 07/16/25 07/30/25 -- Goal Start Date Expected End Date End Date Patient to demonstrate the ability to complete all transfers with Min (A) X1 and use of RW as needed 07/16/25 07/30/25 -- Goal Start Date Expected End Date End Date Patient to demonstrate the ability to ambulate 50 ft with Min (A) X1 and use of RW as appropriate 07/16/25 07/30/25 -- Goal Start Date Expected End Date End Date Patient to participate in BLE exercise to improve strength and limit effects of immobility related to hospital admission. 07/16/25 07/30/25 -- Goal Start Date Expected End Date End Date Patient to demo the ability to maintain standing balance throughout all standing functional tasks with assistive device as needed 07/16/25 07/30/25 -- 07/18/25 1630 6 Clicks (Mobility) Help from another person turning from your back to your side while in a flat bed without using bedrails 3 Help from another person moving from lying on your back to sitting on the side of a flat bed without using bedrails 3 Help from another person moving to and from a bed to a chair (including a wheelchair) 3 Help from another person standing up from a chair using your arms (e.g. wheelchair or bedside chair) 3 Help from another person to walk in hospital room 2 Help from another person climbing 3-5 steps with a railing 1 Mobility 6 Clicks T-Score 15 [1] Patient Active Problem List Diagnosis Hypertensive disorder Diverticular disease Vitamin D deficiency Proteinuria Secondary hyperparathyroidism of renal origin Anemia in chronic kidney disease (CKD) History of DVT (deep vein thrombosis) Renal cyst, left Gout Recurrent sinusitis NSAID long-term use CKD (chronic kidney disease) stage 5, GFR less than 15 ml/min ([facility]) Lung nodule seen on imaging study H/O splenectomy Kidney replaced by transplant GI bleed Diverticulitis Encounter for aftercare following kidney transplant Immunosuppression Benign prostatic hyperplasia with urinary retention Hypophosphatemia Bilateral lower extremity edema Hypocalcemia Hypomagnesemia Diarrhea Immunosuppressive management encounter following kidney transplant Hypoalbuminemia Suspected stroke patient last known to be well more than 2 hours ago Cerebrovascular accident (CVA) ([facility]) BPH with obstruction/lower urinary tract symptoms BPH with urinary obstruction Urinary retention Gastroesophageal reflux disease without esophagitis S/P TURP Leucocytosis UTI (urinary tract infection) Transplant recipient S/P kidney transplant Cosigned by Elba Schuler, PT at 07/27/2025 8:17 AM EST * Anthony Stern MD - 07/18/2025 12:42 PM EST Images from the original note were not included. Nephrology Progress Note Patient : Christal Suh; 69 y.o. Location: [id number]/3176-01 Attending: Jayjay Robin MD Admit Date: 07/13/2025 Hospital Day: 5 Reason for Consult: Medical and Immunosuppressive Management in Renal Transplant Subjective: History of present illness: Christal Suh is a 69 y.o. 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 He is Covid-19 positive and positive for C Diff. Patient has not been eating or drinking well. Notably, he was recently admitted to [facility] for a pseudomonas UTI from 05/29 to 06/15. Patient was evaluated at bedside. Patient is angry and intermittently cooperative with exam. After prolonged discussion, patient is frustrated with the number of people that keep coming into his rooms and he does not like that there are different doctors from various services asking him the same qu estions. His kidney function actually looks to be improving w/ creatinine of 1.19 today and stableelectrolytes. Interval history: 07/18/25 Patient was examined at bedside. He is currently stable and in no acute distress. He has mild hypocalcemia of 8.3. Will check PTH and vitamin D levels w/ plans to replete. Renal function is improvingwith serum creatinine of 1.41 today from 1.6 yesterday. Otherwise, no acute concerns from renal perspective. Objective: Input/Output: Intake/Output Summary (Last 24 hours) at 07/18/2025 1242 Last data filed at 07/18/2025 0500 Gross per 24 hour Intake 1000 ml Output 1200 ml Net -200 ml I/O last 3 completed shifts: In: 1000 (12.4 mL/kg) [IV Piggyback:1000] Out: 2400 (29.8 mL/kg) [Urine:2400 (0.8 mL/kg/hr)] Weight: 80.5 kg Vital signs: Temperature: Temp: 36.5 ??C (97.7 ??F) TMax: Temp (24hrs), Av.4 ??C (97.5 ??F), Min:36 ??C (96.8 ??F), Max:36.8 ??C (98.2 ??F) Respirations: Resp: 17 Pulse: Heart Rate: 73 BP: BP: 143/87 BP Range: Systolic (24hrs), Av , Min:118 , Max:152 Diastolic (24hrs), Av, Min:73, Max:93 Wt Readings from Last 3 Encounters: 07/18/25 80.5 kg (177 lb 7.5 oz) 06/15/25 79 kg (174 lb 2.6 oz) 05/29/25 78.3 kg (172 lb 9.6 oz) Physical Exam Constitutional: General: He is not in acute distress. Appearance: Normal appearance. He is not ill-appearing. HENT: Head: Normocephalic and atraumatic. Cardiovascular: Rate and Rhythm: Normal rate and regular rhythm. Heart sounds: Normal heart sounds. No murmur heard. Pulmonary: Effort: Pulmonary effort is normal. No respiratory distress. Breath sounds: Normal breath sounds. Abdominal: General: Abdomen is flat. Palpations: Abdomen is soft. Musculoskeletal: General: No swelling. Right lower leg: No edema. Left lower leg: No edema. Skin: General: Skin is warm and dry. Neurological: Mental Status: He is alert and oriented to person, place, and time. Motor: No weakness. Psychiatric: Mood and Affect: Mood normal. Behavior: Behavior normal. Current Medications: Scheduled Meds: azaTHIOprine, 50 mg, oral, Daily carvedilol, 25 mg, oral, BID with meals famotidine, 20 mg, oral, Nightly finasteride, 5 mg, oral, Daily hydrALAZINE, 100 mg, oral, TID megestrol, 800 mg, oral, Daily NIFEdipine XL, 30 mg, oral, Daily nystatin, 5 mL, Swish & Swallow, 4x daily Oxygen Therapy, , inhalation, Continuous pantoprazole, 40 mg, oral, Daily before breakfast predniSONE, 10 mg, oral, Daily sulfamethoxazole-trimethoprim, 160 mg of trimethoprim, oral, Once per day on Wednesday tacrolimus ER, 4 mg, oral, Daily tamsulosin, 0.8 mg, oral, Daily vancomycin, 125 mg, oral, 4x daily Continuous Infusions: PRN Meds: PRN medications: albuterol, melatonin, ondansetron ODT OR ondansetron, Insert peripheral IV AND Saline lock IV AND sodium chloride Outpatient Medications: Medication Documentation Review Audit Reviewed by Adrienne Brown RN (Registered Nurse) on 07/13/25 at 2139 Medication Order Taking? Sig Documenting Provider Last Dose Status acetaminophen (Tylenol) 325 mg tablet [id number] Take 650 mg by mouth every 6 (six) hours if needed for mild pain (1-3 pain score) or fever greater than or equal to 38 degrees Celsius. Historical ProviderMD Active azaTHIOprine (Imuran) 75 mg tablet [id number] No Take 1 tablet (75 mg) by mouth in the morning for 96doses. Patient not taking: Reported on 07/13/2025 Grazyna Briseno CNP Not Taking Active calcium carbonate (Tums) 200 mg calcium (500 mg) chewable tablet [id number] Chew 3 tablets (1,500 mg)two times daily. Without food Patient taking differently: Chew 2 tablets two times daily. Without food Jayjay Robin MD Active calcium carbonate-vitamin D3 500 mg-5 mcg (200 unit) tablet [id number] Take 2 tablets by mouth two times daily. Patient taking differently: Take 1 tablet by mouth at bedtime. Grazyna Briseno CNP Active carvedilol (Coreg) 25 mg tablet [id number] 25 mg with breakfast and with evening meal. Historical ProviderMD Active cephalexin (Keflex) 500 mg capsule [id number] Take 500 mg by mouth four times daily. FOR INFECTION FOR 10 DAYS(07/13 - 07/23) Historical ProviderMD Active docusate sodium (Colace) 100 mg capsule [id number] Take 100 mg by mouth two times daily. Historical ProviderMD Active famotidine (Pepcid) 20 mg tablet [id number] Take 1 tablet (20 mg) by mouth at bedtime. Jayjay Robin MD Active finasteride (Proscar) 5 mg tablet [id number] Take 1 tablet (5 mg) by mouth in the morning. Do not crush, chew, or split. Jayjay Robin MD Active folic acid (Folvite) 1 mg tablet [id number] Take 1 tablet (1 mg) by mouth in the morning for 94 doses. Grazyna Briseno CNP Active guaiFENesin (Mucinex) 600 mg 12 hr tablet [id number] Take 1,200 mg by mouth two times daily. Do not crush, chew, or split. Historical ProviderMD Active hydrALAZINE (Apresoline) 100 mg tablet [id number] Take 1 tablet (100 mg) by mouth three times daily. Wendy Lomeli MD Active ipratropium-albuteroL (Duo-Neb) 0.5-2.5 mg/3 mL nebulizer solution [id number] Take 3 mL by nebulization every 6 (six) hours if needed for wheezing or shortness of breath. Historical ProviderMD Active magnesium glycinate 100 mg magnesium capsule [id number] Take 3 capsules (300 mg) by mouth three timesdaily. Jayjay Robin MD Active NIFEdipine XL (Procardia XL) 30 mg 24 hr tablet [id number] Take 1 tablet (30 mg) by mouth in the morning. Do not crush, chew, or split. Jayjay Robin MD Active nystatin (Mycostatin) 100,000 unit/mL suspension [id number] Take 5 mL (500,000 Units) by mouth four times daily. Swish and swallow Wendy Lomeli MD Active ondansetron (Zofran) 4 mg tablet [id number] Take 4 mg by mouth every 4 (four) hours if needed for nausea or vomiting. Historical ProviderMD Active pantoprazole (ProtoNix) 40 mg EC tablet [id number] Take 1 tablet (40 mg) by mouth before breakfast. Do not crush, chew, or split. Delano Klein MD Active predniSONE (Deltasone) 10 mg tablet [id number] Take 1 tablet (10 mg) by mouth in the morning. Jayjay Robin MD Active sod phos di, mono-K phos mono (K Phos Neutral) tablet [id number] Take 1 tablet by mouth two times daily. Jayjay Robin MD Active sulfamethoxazole-trimethoprim (Bactrim DS) 800-160 mg tablet [id number] Take 1 tablet by mouth 3 (three) times a week. On Wednesday, Wednesday, and Wednesday Wendy Lomeli MD Active tacrolimus ER (Envarsus XR) 4 mg tablet ER [id number] Take 1 tablet (4 mg) by mouth in the morning. Script total 8.5 mg daily Patient taking differently: Take 4 mg by mouth in the morning. 4 mg daily Wendy Lomeli MD Active tamsulosin (Flomax) 0.4 mg 24 hr capsule [id number] Take 2 capsules (0.8 mg) by mouth in the morning.Jayjay Robin MD Active valGANciclovir (Valcyte) 450 mg tablet [id number] Take 1 tablet (450 mg) by mouth in the morning. As directed. Wendy Lomeli MD Active vancomycin (Vancocin) 125 mg capsule [id number] Take 125 mg by mouth 2 times daily. Historical Provider, Active Labs: I have reviewed the patient's most recent labs as listed below: Chemistry: Lab Results Component Value Date NA 140 07/18/2025 K 4.0 07/18/2025 CL 110 (H) 07/18/2025 CO2 25 07/18/2025 ANIONGAP 9 07/18/2025 BUN 36 (H) 07/18/2025 CREATININE 1.41 (H) 07/18/2025 EGFR 53.6 (L) 07/18/2025 CALCIUM 8.3 (L) 07/18/2025 MG 1.8 (L) 07/18/2025 PHOS 2.4 (L) 07/18/2025 PTH 45 07/18/2025 VITD25 23.3 (L) 04/16/2025 ALBUMIN 3.6 07/18/2025 PROT 5.2 (L) 07/18/2025 AST 15 07/18/2025 ALT 19 07/18/2025 BILITOT 0.4 07/18/2025 BILIDIR 0.1 05/29/2025 ALKPHOS 113 (H) 07/18/2025 Hematology & Iron studies: Lab Results Component Value Date WBC 13.61 (H) 07/18/2025 HGB 8.9 (L) 07/18/2025 HCT 27.0 (L) 07/18/2025 MCV 100.7 (H) 07/18/2025 PLT 173 07/18/2025 IRON 36 (L) 07/15/2025 TIBC <91 (L) 07/15/2025 UIBC <55.0 (L) 07/15/2025 IRONSAT 07/15/2025 Comment: Unable to Calculate FERRITIN 437.0 (H) 07/15/2025 Urine chemistry Lab Results Component Value Date PROTUR Negative 07/17/2025 PROTUR 25.6 07/17/2025 CREATUR 53.0 07/17/2025 Urinalysis & Microscopy: Lab Results Component Value Date COLORU Light-Yellow 07/17/2025 CLARITYU Clear 07/17/2025 SPECGRAVU 1.013 07/17/2025 BENNETT 7.0 07/17/2025 PROTUR Negative 07/17/2025 PROTUR 25.6 07/17/2025 LEUKOCYTESU Moderate (A) 07/17/2025 NITRITEU Positive (A) 07/17/2025 GLUCOSEU Normal 07/17/2025 KETONESU Negative 07/17/2025 UROBILINOGEN Normal 07/17/2025 BLOODU Negative 07/17/2025 RBCU 0-2 07/17/2025 WBCU 6-10 (A) 07/17/2025 SQUAMEPIU None Seen 07/17/2025 MUCUSU Occasional 07/17/2025 Urine Eosinophils: No components found for: UEOS Serology & Other labs: Lab Results Component Value Date HEPCAB Nonreactive 04/01/2025 HEPBSAG Nonreactive 04/01/2025 BNP: No results found for: BNP JOSELO: No results found for: JOSELO SPEP: Lab Results Component Value Date PROT 5.2 (L) 07/18/2025 UPEP: No components found for: LABPE C3: No results found for: C3 C4: No results found for: C4 MPO ANCA: No components found for: MPO PR3 ANCA: No components found for: PR3 Anti-GBM: No components found for: GBMABIGG Hep BsAg: No results found for: HEPBSAG Hep C AB: No results found for: HEPCAB Radiology: XR chest 1 view Narrative: XR CHEST 1 VIEW 07/15/2025 1:23 PM CLINICAL INDICATIONS: Dyspnea. COMPARISON: 04/09/2025 FINDINGS: Heart size normal. Lungs are hyperinflated with congested lungs and effusions right more than left. Impression: Features of congestive heart failure. Electronically signed: Simone Cunningham MD. Assessment: Acute kidney injury Serum creatinine improved to 1.41 from 1.6 yesterday. Urine output has been adequate w/ 1.8 L over the past 24 hours. History of ESRD. Status post DDRT (03/31/2025) on immunosuppressive therapy. Immunosuppression: tacrolimus 4 mg daily, prednisone 10 mg daily, Imuran 75 mg daily (on hold). Covid pneumonia Clostridium difficile infection on Vancomycin Hypomagnesemia Magnesium was 1.8 today. Hypocalcemia Calcium was 8.3 today. Plan: Continue to hold Imuran until patient's symptoms resolve, then resume home dose. Continue tacrolimus 4 mg daily and prednisone 10 mg daily. Follow up PTH and vitamin D levels. Will plan to start calcium/vitamin D. Patient is stable and not on supplemental oxygen. Will likely be okay for discharge and follow up in the outpatient clinic. Encourage PO hydration given MEDARDO Monitor I/Os, trend creatinine Monitor electrolytes, replete as needed Avoid nephrotoxic agents Thank you for the consultation. Please do not hesitate to contact us for any questions/concerns. Wewill continue to follow along with you. Anthony Stern MD, PhD Internal Medicine Resident, PGY-3 [facility] Cosigned by Wendy Lomeli MD at 07/18/2025 8:15 PM EST Associated attestation - Wendy Lomeli MD - 07/18/2025 8:15 PM EST By using the attestations below, the signing [...] be an additional personal documentation from me. * Belen Tai CNP - 07/18/2025 12:13 PM EST Images from the original note were not included. Infectious Diseases - Inpatient daily Progress Note - Please contact us via Epic chat during business hours. If no response in 15 min, call / page through the spreader operator automatic Patient name: Christal Suh Patient Today's Date and Time: 07/18/2025, 12:14 PM Admission Date: 07/13/2025 Assessment/Plan Impression and Recommendations: Hx of C.Diff Diarrhea Reported history of C.Diff diarrhea that the patient states has been on PO vancomycin for about 7 days now. We have contacted the facility several times to confirm the diagnosis and treatment of C.diff to no avail. Patient can continue PO vancomycin until 07/18. He is still having significant amounts of diarrhea 7 episodes yesterday and 3 overnight these are making him incontinent of bladder also. Will adjust to dificid. + urine culture Urine culture was done on 07/17 + again for pseudomonas He is not having symptoms. There was a urine culture done because of a jump in his white blood count but he did receive a dose of methylprednisone July 15 and then his white count jumped to 13.61. Stable today. Will defer treatment for now. Discussed with Dr. Jones. He was not exhibiting any urinary symptoms on exam. No fevers COVID 19 Positive Test Reported history of COVID in the facility. COVID antigen test here positive. Would continue airborne precautions. No indications for therapy at this time. HX of DDRT EBV +/+ CMV -/+ Management of graft per transplant team. Can continue tacrolimus + prednisone Continue PTX with Valcyte therapy Continue Valcyte prophylactically Subjective Interval History: Labs imaging notes reviewed. Patient seen at bedside he is not having any fevers creatinine 1.41 today slightly improved from yesterday. Is better today than he did yesterday. Had several bowel movements yesterday. Objective Physical Examination: BP 143/87 Pulse 73 Temp 36.5 ??C (97.7 ??F) (Temporal) Resp 17 Ht 1.854 m (6' 0.99 ) Wt 80.5 kg (177 lb 7.5 oz) SpO2 96% BMI 23.42 kg/m?? Temperature Range: Temp: 36.5 ??C (97.7 ??F) Temp Av.4 ??C (97.5 ??F) Min: 36 ??C (96.8 ??F) Max: 36.8 ??C (98.2 ??F) Physical Exam Cardiovascular: Rate and Rhythm: Normal rate and regular rhythm. Abdominal: General: Abdomen is flat. Bowel sounds are normal. Comments: Lower quadrant incision healed Skin: Coloration: Skin is pale. Neurological: Mental Status: He is alert. Motor: Weakness present. Laboratory data: I have independently reviewed the following labs: Results from last 7 days Lab Units 07/18/25 0532 07/17/25 0501 07/16/25 0508 07/15/25 1127 WBC AUTO 10*3/uL 13.61* 13.62* 10.35 11.67* HEMOGLOBIN g/dL 8.9* 8.6* 8.6* 8.0* HEMATOCRIT % 27.0* 25.1* 25.8* 23.9* MCV fL 100.7* 99.2* 99.6* 100.8* PLATELETS AUTO 10*3/uL 173 181 181 168 NEUTROS ABS 10*3/uL -- -- -- 8.78* LYMPHS ABSOLUTE 10*3/uL -- -- -- 1.67 MONOS ABSOLUTE 10*3/uL -- -- -- 0.95 EOS ABSOLUTE 10*3/uL -- -- -- 0.05 BASOS ABSOLUTE 10*3/uL -- -- -- 0.02 Results from last 7 days Lab Units 07/18/25 0532 07/17/25 0501 07/16/25 0508 POTASSIUM mmol/L 4.0 3.9 3.8 CHLORIDE mmol/L 110* 108* 106 CO2 mmol/L 25 25 22 BUN mg/dL 36* 41* 29* CREATININE mg/dL 1.41* 1.63* 1.55* GLUCOSE mg/dL 143* 135* 175* CALCIUM mg/dL 8.3* 8.4* 8.5* ALK PHOS U/L 113* 115* 142* ALT U/L 19 17 22 AST U/L 15 13 18 Results from last 7 days Lab Units 07/17/25 1212 GLUCOSE U MG/DL mg/dL Normal UROBILINOGEN URINE mg/dL Normal BILIRUBIN U Negative WBC UR HPF /HPF 6-10* Imaging Studies: I have reviewed the following imaging studies: Cultures: No results found for any visits on 07/13/25. Medications: azaTHIOprine, 50 mg, oral, Daily carvedilol, 25 mg, oral, BID with meals famotidine, 20 mg, oral, Nightly finasteride, 5 mg, oral, Daily hydrALAZINE, 100 mg, oral, TID megestrol, 800 mg, oral, Daily NIFEdipine XL, 30 mg, oral, Daily nystatin, 5 mL, Swish & Swallow, 4x daily Oxygen Therapy, , inhalation, Continuous pantoprazole, 40 mg, oral, Daily before breakfast predniSONE, 10 mg, oral, Daily sulfamethoxazole-trimethoprim, 160 mg of trimethoprim, oral, Once per day on Wednesday tacrolimus ER, 4 mg, oral, Daily tamsulosin, 0.8 mg, oral, Daily vancomycin, 125 mg, oral, 4x daily This progress note was completed using a voice clip loading machine adjuster system. Every effort was made to ensure accuracy; however, inadvertent computerized clip loading machine adjuster errors may be present. Thank you for allowing us to participate in the care of this patient. Belen Tai APRN, CNP [facility]TP Infectious Disease Message me via VenueSpot secure chat * Grazyna Briseno CNP - 07/18/2025 9:03 AM EST Images from the original note were not included. Department of Urologic Surgery & Renal Transplantation PROGRESS NOTE HPI/Subjective Christal Suh is a 69 y.o. year old male with a PMH of ESRD 2/2 HTN now s/p DDRT on 03/31/25 followed by TURP on 05/11/25. He is admitted with FTT and reportedly COVID but no sifnificant symptoms. Procedures/Operations: - 05/11/25 - Rabets (Uro): TURP - 05/01/25 - Clar (Uro): Bedside cysto, removal of stent - 03/31/25 - Lobito (Transplant): DDRT Interval: Reports he is still feeling well since yesterday. Denies any more diarrhea yesterday, did have several Bms yesterday/this morning, slight improved this afternoon. He is tolerating a diet with out issues and drinking the protein shakes. He denies shortness of breath. Denies issues with urination. UOP: 1.6L Objective: Vitals: Vitals: 07/18/25 0836 BP: 140/76 Pulse: 73 Resp: Temp: SpO2: I/O last 3 completed shifts: In: 1000 (12.4 mL/kg) [IV Piggyback:1000] Out: 2400 (29.8 mL/kg) [Urine:2400 (0.8 mL/kg/hr)] Weight: 80.5 kg No intake/output data recorded. Gen: Alert & oriented x3, no acute distress, not ill-appearing Neuro: Grossly intact CV: Regular rate Resp: Breathing comfortably on RA, no audible wheezing or accessory muscle use Abd: Soft, non-distended, Non-tender, well healed RLQ incision MSK: Moving all extremities, warm and well perfused, appropriate ROM, no edema Labs: Results from last 7 days Lab Units 07/18/25 0532 07/17/25 0501 07/16/25 0508 07/15/25 1127 07/15/25 0327 WBC AUTO 10*3/uL 13.61* 13.62* 10.35 11.67* 10.32 HEMOGLOBIN g/dL 8.9* 8.6* 8.6* 8.0* 6.9* HEMATOCRIT % 27.0* 25.1* 25.8* 23.9* 20.8* PLATELETS AUTO 10*3/uL 173 181 181 168 152 Results from last 7 days Lab Units 07/18/25 0532 07/17/25 0501 07/16/25 0508 07/15/25 0327 07/14/25 0337 SODIUM mmol/L 140 141 139 139 139 POTASSIUM mmol/L 4.0 3.9 3.8 4.1 4.4 CO2 mmol/L 25 25 22 24 21 BUN mg/dL 36* 41* 29* 23 21 CREATININE mg/dL 1.41* 1.63* 1.55* 1.30 1.19 Medications: azaTHIOprine, 50 mg, oral, Daily carvedilol, 25 mg, oral, BID with meals famotidine, 20 mg, oral, Nightly finasteride, 5 mg, oral, Daily hydrALAZINE, 100 mg, oral, TID megestrol, 800 mg, oral, Daily NIFEdipine XL, 30 mg, oral, Daily nystatin, 5 mL, Swish & Swallow, 4x daily Oxygen Therapy, , inhalation, Continuous pantoprazole, 40 mg, oral, Daily before breakfast predniSONE, 10 mg, oral, Daily sulfamethoxazole-trimethoprim, 160 mg of trimethoprim, oral, Once per day on Wednesday tacrolimus ER, 4 mg, oral, Daily tamsulosin, 0.8 mg, oral, Daily vancomycin, 125 mg, oral, 4x daily Imaging: XR chest 1 view Narrative: XR CHEST 1 VIEW 07/15/2025 1:23 PM CLINICAL INDICATIONS: Dyspnea. COMPARISON: 04/09/2025 FINDINGS: Heart size normal. Lungs are hyperinflated with congested lungs and effusions right more than left. Impression: Features of congestive heart failure. Electronically signed: Simone Cunningham MD. Assessment: Christal Suh is a 69 y.o. year old male with a PMH of ESRD 2/2 HTN now s/p DDRT, and history of ischemic stroke admitted for weakness and failure to thrive. Active Problems: S/p DDRT Need for immunosuppression H/o diverticulitis H/o stroke BPH with retention S/p TURP FTT COVID-19 C Diff diarrhea Severe protein-calorie malnutrition Plan: Diet: Regular, patient has severe PCM Nutritional supplements- Boost glucose control Patient would like these at his facility at discharge. Reports he does not enjoy the meals offered at his facility Dietary consulted Immunosuppression: Maintenance: Imuran on HOLD due to current infections, we will restart 50 mg daily Tacrolimus 4mg daily, will switch to prograf IR 2mg twice daily on discharge to accommodate facility needs. Pred 10 mg daily Immunoprophylaxis/Abx: Restarted bactrim Restarted Nystatin Swish Valcyte 450 mg once daily-can be discontinued due to being more than 3 months post transplant Monitor renal function: UOP: good output Renal function close to baseline, slightly elevated today, monitor, encourage PO hydration Will send prospera/DSA/BK and CMV Results from last 7 days Lab Units 07/18/25 0532 07/17/25 0501 07/16/25 0508 07/15/25 0327 07/14/25 0337 07/13/25 2048 CREATININE mg/dL 1.41* 1.63* 1.55* 1.30 1.19 1.26 BUN mg/dL 36* 41* 29* 23 21 22 Recent C Diff, COVID-19 Consulted ID, appreciate recommendations No respiratory symptoms, did require Bipap on 07/15, on room air now, will continue to monitor Currently on oral vanc-being switched to dificid due to worsening diarrhea. 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 Results from last 7 days Lab Units 07/18/25 0532 07/17/25 0501 07/16/25 0508 07/15/25 1127 07/15/25 0327 07/14/25 0337 07/13/25 2048 WBC AUTO 10*3/uL 13.61* 13.62* 10.35 11.67* 10.32 10.57 12.69* HEMOGLOBIN g/dL 8.9* 8.6* 8.6* 8.0* 6.9* 7.8* 9.2* PLATELETS AUTO 10*3/uL 173 181 181 168 152 162 186 Fluid/Electrolytes: IVF: None currently Electrolytes: Monitor/replace per protocol Results from last 7 days Lab Units 07/18/25 0532 07/17/25 0501 07/16/25 0508 07/15/25 0327 07/14/25 0337 07/13/25 2048 SODIUM mmol/L 140 141 139 139 139 138 POTASSIUM mmol/L 4.0 3.9 3.8 4.1 4.4 4.6 CHLORIDE mmol/L 110* 108* 106 108* 109* 109* CO2 mmol/L 25 22 24 21 24 BUN mg/dL 36* 41* 29* 23 21 22 CREATININE mg/dL 1.41* 1.63* 1.55* 1.30 1.19 1.26 PHOSPHORUS mg/dL 2.4* 2.5 4.0 3.0 3.4 3.4 CALCIUM mg/dL 8.3* 8.4* 8.5* 8.5* 7.7* 7.4* Hypertension: Home Rx: Carvedilol, hydralazine, nifedipine Nephrology consulted, appreciate recommendations BPH with retention Home meds: Tamsulosin, Finasteride S/p TURP No difficulty in voiding Severe protein-calorie malnutrition Had edema at admission, Albumin infusion TiD > albumin, resolved Nutrition consulted Will obtain calorie count, eating better today, says he doesn't like the food at the rehab, that's why he has not been eating well Will give boost shakes tid, encouraged to eat better, eating better yesterday Started megestrol on admission H/o stroke: on baby aspirin/ debility PT, OT consulted PRM consulted DVT prophylaxis: SCD cuffs, encourage ambulation Bowel regimen: none Respiratory: Encourage incentive spirometry use every hour DISPO: discharge ready when precert is completed Grazyna Briseno CNP Ascom [phone] * YAMILKA Elder - 07/18/2025 8:26 AM EST Discharge Planning Patient is medically ready fro discharge. Discharge plan is to return to [facility]. accredited legal secretary unable to submit for pre-cert as medical mutual requires it be submitted by facility. DANIE contacted [facility] and requested they submit. * YAMILKA Elder - 07/17/2025 4:10 PM EST Discharge Planning Patient is medically ready fro discharge. Patient is requesting to return to [facility]. SW confirmed through [facility] they are able to accept. DANIE requested accredited legal secretary start pre-cert. * Anthony Stern MD - 07/17/2025 2:11 PM EST Images from the original note were not included. Nephrology Progress Note Patient : Christal Suh; 69 y.o. Location: [id number] Attending: Jayjay Robin MD Admit Date: 07/13/2025 Hospital Day: 4 Reason for Consult: Medical and Immunosuppressive Management in Renal Transplant Subjective: History of present illness: Christal Suh is a 69 y.o. 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 He is Covid-19 positive and positive for C Diff. Patient has not been eating or drinking well. Notably, he was recently admitted to [facility] for a pseudomonas UTI from 05/29 to 06/15. Patient was evaluated at bedside. Patient is angry and intermittently cooperative with exam. After prolonged discussion, patient is frustrated with the number of people that keep coming into his rooms and he does not like that there are different doctors from various services asking him the same qu estions. His kidney function actually looks to be improving w/ creatinine of 1.19 today and stableelectrolytes. Interval history: 07/17/25 Patient was examined at bedside. He is currently stable and in no acute distress. He is complainingof rhinorrhea but otherwise has no acute complaints. Denies SOB and is saturating well on room air.Serum creatinine worsened to 1.6 today from 1.55 likely secondary to the 80 mg IV Lasix he received2 days prior. Urine output has been adequate at 1.8 L over the past 24 hours. Imuran remains on hold due to infection. No additional concerns at this time. Objective: Input/Output: Intake/Output Summary (Last 24 hours) at 07/17/2025 1411 Last data filed at 07/17/2025 1200 Gross per 24 hour Intake 180 ml Output 1600 ml Net -1420 ml I/O last 3 completed shifts: In: 1100 (14.6 mL/kg) [P.O.:900; I.V.:200 (2.7 mL/kg)] Out: 3150 (41.8 mL/kg) [Urine:3150 (1.2 mL/kg/hr)] Weight: 75.3 kg Vital signs: Temperature: Temp: 36.8 ??C (98.2 ??F) TMax: Temp (24hrs), Av.6 ??C (97.9 ??F), Min:36 ??C (96.8 ??F), Max:36.8 ??C (98.2 ??F) Respirations: Resp: 16 Pulse: Heart Rate: 85 BP: BP: 125/78 BP Range: Systolic (24hrs), Av , Min:108 , Max:140 Diastolic (24hrs), Av, Min:61, Max:83 Wt Readings from Last 3 Encounters: 07/17/25 75.3 kg (166 lb 0.1 oz) 06/15/25 79 kg (174 lb 2.6 oz) 05/29/25 78.3 kg (172 lb 9.6 oz) Physical Exam Constitutional: General: He is not in acute distress. Appearance: Normal appearance. He is not ill-appearing. HENT: Head: Normocephalic and atraumatic. Cardiovascular: Rate and Rhythm: Normal rate and regular rhythm. Heart sounds: Normal heart sounds. No murmur heard. Pulmonary: Effort: Pulmonary effort is normal. No respiratory distress. Breath sounds: Normal breath sounds. Abdominal: General: Abdomen is flat. Palpations: Abdomen is soft. Musculoskeletal: General: No swelling. Right lower leg: No edema. Left lower leg: No edema. Skin: General: Skin is warm and dry. Neurological: Mental Status: He is alert and oriented to person, place, and time. Motor: No weakness. Psychiatric: Mood and Affect: Mood normal. Behavior: Behavior normal. Current Medications: Scheduled Meds: azaTHIOprine, 50 mg, oral, Daily carvedilol, 25 mg, oral, BID with meals famotidine, 20 mg, oral, Nightly finasteride, 5 mg, oral, Daily hydrALAZINE, 100 mg, oral, TID megestrol, 800 mg, oral, Daily NIFEdipine XL, 30 mg, oral, Daily nystatin, 5 mL, Swish & Swallow, 4x daily Oxygen Therapy, , inhalation, Continuous pantoprazole, 40 mg, oral, Daily before breakfast predniSONE, 10 mg, oral, Daily sodium chloride, 1,000 mL, intravenous, Once sulfamethoxazole-trimethoprim, 160 mg of trimethoprim, oral, Once per day on Wednesday tacrolimus ER, 4 mg, oral, Daily tamsulosin, 0.8 mg, oral, Daily vancomycin, 125 mg, oral, 4x daily Continuous Infusions: PRN Meds: PRN medications: albuterol, melatonin, ondansetron ODT OR ondansetron, Insert peripheral IV AND Saline lock IV AND sodium chloride Outpatient Medications: Medication Documentation Review Audit Reviewed by Adrienne Brown RN (Registered Nurse) on 07/13/25 at 2139 Medication Order Taking? Sig Documenting Provider Last Dose Status acetaminophen (Tylenol) 325 mg tablet [id number] Take 650 mg by mouth every 6 (six) hours if needed for mild pain (1-3 pain score) or fever greater than or equal to 38 degrees Celsius. Cristal Vazquez MD Active azaTHIOprine (Imuran) 75 mg tablet [id number] No Take 1 tablet (75 mg) by mouth in the morning for 96doses. Patient not taking: Reported on 07/13/2025 Grazyna Briseno CNP Not Taking Active calcium carbonate (Tums) 200 mg calcium (500 mg) chewable tablet [id number] Chew 3 tablets (1,500 mg)two times daily. Without food Patient taking differently: Chew 2 tablets two times daily. Without food Jayjay Robin MD Active calcium carbonate-vitamin D3 500 mg-5 mcg (200 unit) tablet [id number] Take 2 tablets by mouth two times daily. Patient taking differently: Take 1 tablet by mouth at bedtime. Grazyna Briseno CNP Active carvedilol (Coreg) 25 mg tablet [id number] 25 mg with breakfast and with evening meal. Historical ProviderMD Active cephalexin (Keflex) 500 mg capsule [id number] Take 500 mg by mouth four times daily. FOR INFECTION FOR 10 DAYS(07/13 - 07/23) Historical ProviderMD Active docusate sodium (Colace) 100 mg capsule [id number] Take 100 mg by mouth two times daily. Historical ProviderMD Active famotidine (Pepcid) 20 mg tablet [id number] Take 1 tablet (20 mg) by mouth at bedtime. Jayjay Robin MD Active finasteride (Proscar) 5 mg tablet [id number] Take 1 tablet (5 mg) by mouth in the morning. Do not crush, chew, or split. Jayjay Robin MD Active folic acid (Folvite) 1 mg tablet [id number] Take 1 tablet (1 mg) by mouth in the morning for 94 doses. Grazyna Briseno CNP Active guaiFENesin (Mucinex) 600 mg 12 hr tablet [id number] Take 1,200 mg by mouth two times daily. Do not crush, chew, or split. Historical ProviderMD Active hydrALAZINE (Apresoline) 100 mg tablet [id number] Take 1 tablet (100 mg) by mouth three times daily. Wendy Lomeli MD Active ipratropium-albuteroL (Duo-Neb) 0.5-2.5 mg/3 mL nebulizer solution [id number] Take 3 mL by nebulization every 6 (six) hours if needed for wheezing or shortness of breath. Historical ProviderMD Active magnesium glycinate 100 mg magnesium capsule [id number] Take 3 capsules (300 mg) by mouth three timesdaily. Jayjay Robin MD Active NIFEdipine XL (Procardia XL) 30 mg 24 hr tablet [id number] Take 1 tablet (30 mg) by mouth in the morning. Do not crush, chew, or split. Jayjay Robin MD Active nystatin (Mycostatin) 100,000 unit/mL suspension [id number] Take 5 mL (500,000 Units) by mouth four times daily. Swish and swallow Wendy Lmoeli MD Active ondansetron (Zofran) 4 mg tablet [id number] Take 4 mg by mouth every 4 (four) hours if needed for nausea or vomiting. Historical ProviderMD Active pantoprazole (ProtoNix) 40 mg EC tablet [id number] Take 1 tablet (40 mg) by mouth before breakfast. Do not crush, chew, or split. Delano Klein MD Active predniSONE (Deltasone) 10 mg tablet [id number] Take 1 tablet (10 mg) by mouth in the morning. Jayjay Robin MD Active sod phos di, mono-K phos mono (K Phos Neutral) tablet [id number] Take 1 tablet by mouth two times daily. Jayjay Robin MD Active sulfamethoxazole-trimethoprim (Bactrim DS) 800-160 mg tablet [id number] Take 1 tablet by mouth 3 (three) times a week. On Wednesday, Wednesday, and Wednesday Wendy Lomeli MD Active tacrolimus ER (Envarsus XR) 4 mg tablet ER [id number] Take 1 tablet (4 mg) by mouth in the morning. Script total 8.5 mg daily Patient taking differently: Take 4 mg by mouth in the morning. 4 mg daily Wendy Lomeli MD Active tamsulosin (Flomax) 0.4 mg 24 hr capsule [id number] Take 2 capsules (0.8 mg) by mouth in the morning.Jayjay Robin MD Active valGANciclovir (Valcyte) 450 mg tablet [id number] Take 1 tablet (450 mg) by mouth in the morning. As directed. Wendy Lomeli MD Active vancomycin (Vancocin) 125 mg capsule [id number] Take 125 mg by mouth 2 times daily. Historical Provider, Active Labs: I have reviewed the patient's most recent labs as listed below: Chemistry: Lab Results Component Value Date NA 141 07/17/2025 K 3.9 07/17/2025 CL 108 (H) 07/17/2025 CO2 25 07/17/2025 ANIONGAP 12 07/17/2025 BUN 41 (H) 07/17/2025 CREATININE 1.63 (H) 07/17/2025 EGFR 45.0 (L) 07/17/2025 CALCIUM 8.4 (L) 07/17/2025 MG 2.1 07/17/2025 PHOS 2.5 07/17/2025 PTH 190 (H) 04/16/2025 VITD25 23.3 (L) 04/16/2025 ALBUMIN 3.7 07/17/2025 PROT 5.0 (L) 07/17/2025 AST 13 07/17/2025 ALT 17 07/17/2025 BILITOT 0.4 07/17/2025 BILIDIR 0.1 05/29/2025 ALKPHOS 115 (H) 07/17/2025 Hematology & Iron studies: Lab Results Component Value Date WBC 13.62 (H) 07/17/2025 HGB 8.6 (L) 07/17/2025 HCT 25.1 (L) 07/17/2025 MCV 99.2 (H) 07/17/2025 PLT 181 07/17/2025 IRON 36 (L) 07/15/2025 TIBC <91 (L) 07/15/2025 UIBC <55.0 (L) 07/15/2025 IRONSAT 07/15/2025 Comment: Unable to Calculate FERRITIN 437.0 (H) 07/15/2025 Urine chemistry Lab Results Component Value Date PROTUR Negative 07/17/2025 PROTUR 25.6 07/17/2025 CREATUR 53.0 07/17/2025 Urinalysis & Microscopy: Lab Results Component Value Date COLORU Light-Yellow 07/17/2025 CLARITYU Clear 07/17/2025 SPECGRAVU 1.013 07/17/2025 BENNETT 7.0 07/17/2025 PROTUR Negative 07/17/2025 PROTUR 25.6 07/17/2025 LEUKOCYTESU Moderate (A) 07/17/2025 NITRITEU Positive (A) 07/17/2025 GLUCOSEU Normal 07/17/2025 KETONESU Negative 07/17/2025 UROBILINOGEN Normal 07/17/2025 BLOODU Negative 07/17/2025 RBCU 0-2 07/17/2025 WBCU 6-10 (A) 07/17/2025 SQUAMEPIU None Seen 07/17/2025 MUCUSU Occasional 07/17/2025 Urine Eosinophils: No components found for: UEOS Serology & Other labs: Lab Results Component Value Date HEPCAB Nonreactive 04/01/2025 HEPBSAG Nonreactive 04/01/2025 BNP: No results found for: BNP JOSELO: No results found for: JOSELO SPEP: Lab Results Component Value Date PROT 5.0 (L) 07/17/2025 UPEP: No components found for: LABPE C3: No results found for: C3 C4: No results found for: C4 MPO ANCA: No components found for: MPO PR3 ANCA: No components found for: PR3 Anti-GBM: No components found for: GBMABIGG Hep BsAg: No results found for: HEPBSAG Hep C AB: No results found for: HEPCAB Radiology: XR chest 1 view Narrative: XR CHEST 1 VIEW 07/15/2025 1:23 PM CLINICAL INDICATIONS: Dyspnea. COMPARISON: 04/09/2025 FINDINGS: Heart size normal. Lungs are hyperinflated with congested lungs and effusions right more than left. Impression: Features of congestive heart failure. Electronically signed: Simone Cunningham MD. Assessment: Acute kidney injury Serum creatinine worsened to 1.6 today from 1.55 yesterday. This is likely a product of the 80 mg IV Lasix he received after his episode of respiratory distress on 07/15. Urine output has been adequate w/ 1.8 L over the past 24 hours. History of ESRD. Status post DDRT (03/31/2025) on immunosuppressive therapy. Immunosuppression: tacrolimus 4 mg daily, prednisone 10 mg daily, Imuran 75 mg daily (on hold). Covid pneumonia Clostridium difficile infection on Vancomycin Hypomagnesemia Magnesium was 1.7 today. Plan: Continue to hold Imuran until patient's symptoms resolve, then resume home dose. Continue tacrolimus 4 mg daily and prednisone 10 mg daily. Patient is stable and not on supplemental oxygen. Will likely be okay for discharge and follow up in the outpatient clinic. Encourage PO hydration given MEDARDO Monitor I/Os, trend creatinine Monitor electrolytes, replete as needed Avoid nephrotoxic agents Thank you for the consultation. Please do not hesitate to contact us for any questions/concerns. Wewill continue to follow along with you. Anthony Stern MD, PhD Internal Medicine Resident, PGY-3 [facility] Cosigned by Wendy Lomeli MD at 07/17/2025 6:43 PM EST Associated attestation - Wendy Lomeli MD - 07/17/2025 6:43 PM EST By using the attestations below, the signing [...] be an additional personal documentation from me. * Dean Dickson, PT - 07/17/2025 1:39 PM EST Physical Therapy Physical Therapy Treatment Patient Name: Christal Suh : 1955 Today's Date: 07/17/2025 Problem List[1] Start Time: 1132 Stop Time: 1205 Time Calculation (min): 33 min PT Therapeutic Procedures Time Entry Therapeutic Exercise Time Entry: 25 Objective General Visit Information: PT Last Visit PT Received On: 07/17/25 Response to Previous Treatment: Patient with no complaints from previous session. General Family/Caregiver Present: No Subjective: RN approved PT session and OOB activity. Patient in bed upon arrival, agreeable to session. Upon completion, patient left on the EOB with call light within reach, RN aware. Vision - Basic Vision - Basic Assessment Current Vision: Wears glasses only for reading Vision - Complex Precautions Precautions Medical Precautions: fall risk, isolation, telemetry, IV, Purewick (COVID Isolation) Pain Pain Assessment Pain Assessment: No/denies pain Pain Score: 0 - No pain Cognition General Assessment General Assessment Hearing: Intact Hand Dominance: Right Static Sitting Balance Static Sitting Balance Static Sitting-Balance Support: Feet supported, Left upper extremity supported, Right upper extremity supported Static Sitting-Level of Assistance: Distant supervision Dynamic Sitting Balance Dynamic Sitting Balance Dynamic Sitting-Balance Support: Right upper extremity supported, Left upper extremity supported, Feet supported Dynamic Sitting-Balance: Forward lean, Lateral lean Dynamic Sitting Balance-Level of Assistance: Close supervision Static Standing Balance Static Standing Balance Static Standing-Balance Support: With device (RW) Static Standing-Level of Assistance: Contact guard Dynamic Standing Balance Dynamic Standing Balance Dynamic Standing-Balance Support: With device (RW) Dynamic Standing Balance-Level of Assistance: Minimum assistance General Assessments: Activity Tolerance Endurance: Stage II Activity Tolerance Comments: Quick onset fatigue with minmal ambulatory distance. ~7 ft. Treatment: Therapeutic Exercise Therapeutic Exercise Time Entry: 25 Therapeutic Exercise Activity 1: Sitting EOB BLE exercise: BLE seated marches x10, LAQ x10, BLE ankle DF x10. Ambulation Ambulation: Yes Ambulation 1 Surface 1: Level tile Device 1: Rolling walker Assistance 1: Minimum assistance Quality of Gait 1: Fwd flexed posture, short BLE step length with minimal foot clearance. Quick onset fatigue. Comments/Distance (ft) 1: 9 ft Bed Mobility Bed Mobility: Yes Bed Mobility 1 Bed Mobility From 1: Supine Bed Mobility Type 1: To Bed Mobility to 1: Short sit Level of Assistance 1: Close supervision Bed Mobility Comments 1: HOB elevated ~45 degrees - patient able to obtain short sitting with additional time/effort and SBA Transfers Transfer: Yes Transfer 1 Technique 1: Sit to stand, Stand to sit (From EOB) Transfer Device 1: rolling walker Transfer Level of Assistance 1: Minimum assistance Trials/Comments 1: Additional time and effort though able to complete from EOB with Min (A) X1 and use of RW. Bed height elevated several inches Transfers 2 Technique 2: Sit to stand, Stand to sit (2nd attempt from EOB) Transfer Device 2: rolling walker Transfer Level of Assistance 2: Maximum assistance Trials/Comments 2: Max (A) x1 with increased effort required to complete sit to stand from EOB on 2nd attempt following ambulation of 9 ft with short seated rest break. Outcome Assessments 6 Clicks (Mobility) Help from another person turning from your back to your side while in a flat bed without using bedrails: A little Help from another person moving from lying on your back to sitting on the side of a flat bed without using bedrails: A little Help from another person moving to and from a bed to a chair (including a wheelchair): A little Help from another person standing up from a chair using your arms (e.g. 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 Quick onset fatigue with functional mobility. Will continue to benefit from additional skilled PT services to maximize independence and safety. Prognosis: Good Plan Level of assist: 1 assist Treatment/Interventions: Functional transfer training, LE strengthening/ROM, Bed mobility, Gait training, Balance training PT Plan: Skilled PT PT Frequency: 5 times per week PT Discharge Recommendations: Patient is able to return to prior living environment (Presents from SNF) Equipment Recommended: none PT - Discharge Recommendations Placed: Yes Goals: Multi-Disciplinary Problems (from Physical Therapy) Active Problems Problem: PT Misc Start Date: 07/16/25 Goal Start Date Expected End Date End Date Patient to demonstrate the ability to complete all bed mobility independently with HOB progressing to flat 07/16/25 07/30/25 -- Goal Start Date Expected End Date End Date Patient to demonstrate the ability to complete all transfers with Min (A) X1 and use of RW as needed 07/16/25 07/30/25 -- Goal Start Date Expected End Date End Date Patient to demonstrate the ability to ambulate 50 ft with Min (A) X1 and use of RW as appropriate 07/16/25 07/30/25 -- Goal Start Date Expected End Date End Date Patient to participate in BLE exercise to improve strength and limit effects of immobility related to hospital admission. 07/16/25 07/30/25 -- Goal Start Date Expected End Date End Date Patient to demo the ability to maintain standing balance throughout all standing functional tasks with assistive device as needed 07/16/25 07/30/25 -- [1] Patient Active Problem List Diagnosis Hypertensive disorder Diverticular disease Vitamin D deficiency Proteinuria Secondary hyperparathyroidism of renal origin Anemia in chronic kidney disease (CKD) History of DVT (deep vein thrombosis) Renal cyst, left Gout Recurrent sinusitis NSAID long-term use CKD (chronic kidney disease) stage 5, GFR less than 15 ml/min (CMS/HCC) Lung nodule seen on imaging study H/O splenectomy Kidney replaced by transplant GI bleed Diverticulitis Encounter for aftercare following kidney transplant Immunosuppression Benign prostatic hyperplasia with urinary retention Hypophosphatemia Bilateral lower extremity edema Hypocalcemia Hypomagnesemia Diarrhea Immunosuppressive management encounter following kidney transplant Hypoalbuminemia Suspected stroke patient last known to be well more than 2 hours ago Cerebrovascular accident (CVA) (CMS/HCC) BPH with obstruction/lower urinary tract symptoms BPH with urinary obstruction Urinary retention Gastroesophageal reflux disease without esophagitis S/P TURP Leucocytosis UTI (urinary tract infection) Transplant recipient S/P kidney transplant * Belen Tai CNP - 07/17/2025 12:22 PM EST Images from the original note were not included. Infectious Diseases - Inpatient daily Progress Note - Please contact us via [employer] chat during business hours. If no response in 15 min, call / page through the spreader operator automatic Patient name: Christal Suh Patient Today's Date and Time: 07/17/2025, 12:22 PM Admission Date: 07/13/2025 Assessment/Plan Impression and Recommendations: Hx of C.Diff Diarrhea Reported history of C.Diff diarrhea that the patient states has been on PO vancomycin for about 7 days now. We have contacted the facility several times to confirm the diagnosis and treatment of C.diff to no avail. Patient can continue PO vancomycin until 07/18. Bowel habits are already improving. Continue p.o. vancomycin 125 mg p.o. 4 times a day for 10-day course can stop after July 18. COVID 19 Positive Test Reported history of COVID in the facility. COVID antigen test here positive. Would continue airborne precautions. No indications for therapy at this time. HX of DDRT EBV +/+ CMV -/+ Management of graft per transplant team. Can continue tacrolimus + prednisone Continue PTX with Valcyte therapy Continue Valcyte prophylactically Subjective Interval History: Labs imaging notes reviewed patient is not having any fevers chills or chest pain. Continue airborne isolation with positive COVID test. Creatinine up trended again today. He is not feeling very welltoday Objective Physical Examination: BP 133/76 Pulse 82 Temp 36.7 ??C (98.1 ??F) (Temporal) Resp 18 Ht 1.854 m (6' 0.99 ) Wt 75.3 kg (166 lb 0.1 oz) SpO2 95% BMI 21.91 kg/m?? Temperature Range: Temp: 36.7 ??C (98.1 ??F) Temp Av.6 ??C (97.9 ??F) Min: 36 ??C (96.8 ??F) Max: 36.8 ??C (98.2 ??F) Physical Exam Cardiovascular: Rate and Rhythm: Normal rate and regular rhythm. Pulmonary: Effort: Pulmonary effort is normal. Breath sounds: Normal breath sounds. Abdominal: General: Bowel sounds are normal. Musculoskeletal: General: Normal range of motion. Skin: Coloration: Skin is pale. Neurological: Mental Status: He is alert. Laboratory data: I have independently reviewed the following labs: Results from last 7 days Lab Units 07/17/25 0501 07/16/25 0508 07/15/25 1127 WBC AUTO 10*3/uL 13.62* 10.35 11.67* HEMOGLOBIN g/dL 8.6* 8.6* 8.0* HEMATOCRIT % 25.1* 25.8* 23.9* MCV fL 99.2* 99.6* 100.8* PLATELETS AUTO 10*3/uL 181 181 168 NEUTROS ABS 10*3/uL -- -- 8.78* LYMPHS ABSOLUTE 10*3/uL -- -- 1.67 MONOS ABSOLUTE 10*3/uL -- -- 0.95 EOS ABSOLUTE 10*3/uL -- -- 0.05 BASOS ABSOLUTE 10*3/uL -- -- 0.02 Results from last 7 days Lab Units 07/17/25 0501 07/16/25 0508 07/15/25 0327 POTASSIUM mmol/L 3.9 3.8 4.1 CHLORIDE mmol/L 108* 106 108* CO2 mmol/L 25 22 24 BUN mg/dL 41* 29* 23 CREATININE mg/dL 1.63* 1.55* 1.30 GLUCOSE mg/dL 135* 175* 94 CALCIUM mg/dL 8.4* 8.5* 8.5* ALK PHOS U/L 115* 142* 207* ALT U/L 17 22 27 AST U/L 13 18 38 Imaging Studies: I have reviewed the following imaging studies: Cultures: No results found for any visits on 07/13/25. Medications: azaTHIOprine, 50 mg, oral, Daily carvedilol, 25 mg, oral, BID with meals famotidine, 20 mg, oral, Nightly finasteride, 5 mg, oral, Daily hydrALAZINE, 100 mg, oral, TID megestrol, 800 mg, oral, Daily NIFEdipine XL, 30 mg, oral, Daily nystatin, 5 mL, Swish & Swallow, 4x daily Oxygen Therapy, , inhalation, Continuous pantoprazole, 40 mg, oral, Daily before breakfast predniSONE, 10 mg, oral, Daily sodium chloride, 1,000 mL, intravenous, Once sulfamethoxazole-trimethoprim, 160 mg of trimethoprim, oral, Once per day on Wednesday tacrolimus ER, 4 mg, oral, Daily tamsulosin, 0.8 mg, oral, Daily vancomycin, 125 mg, oral, 4x daily This progress note was completed using a voice clip loading machine adjuster system. Every effort was made to ensure accuracy; however, inadvertent computerized clip loading machine adjuster errors may be present. Thank you for allowing us to participate in the care of this patient. Belen Tai APRN, CNP [facility] Infectious Disease Message me via [employer] secure chat * Nile Cho RRT - 07/17/2025 8:15 AM EST Respiratory Therapy Note Pt has not worn BIPAP in two nights after initial placement on patient. Will pull unit today. * Raegan Allison MD - 07/17/2025 6:54 AM EST Images from the original note were not included. Department of Urologic Surgery & Renal Transplantation PROGRESS NOTE HPI/Subjective Christal Suh is a 69 y.o. year old male with a PMH of ESRD 2/2 HTN now s/p DDRT on 03/31/25 followed by TURP on 05/11/25. He is admitted with FTT and reportedly COVID but no sifnificant symptoms. Procedures/Operations: - 05/11/25 - Rabets (Uro): TURP - 05/01/25 - Clar (Uro): Bedside cysto, removal of stent - 03/31/25 - Lobito (Transplant): DDRT Interval: Reports he is still feeling well since yesterday. Denies any more diarrhea yesterday, did have two Bms today, will monitor. He is tolerating a diet with out issues and drinking the protein shakes. Hedenies shortness of breath. Denies issues with urination. UOP: 1.8L Objective: Vitals: Vitals: 07/17/25 1016 BP: 133/76 Pulse: Resp: Temp: SpO2: I/O last 3 completed shifts: In: 1100 (14.6 mL/kg) [P.O.:900; I.V.:200 (2.7 mL/kg)] Out: 3150 (41.8 mL/kg) [Urine:3150 (1.2 mL/kg/hr)] Weight: 75.3 kg No intake/output data recorded. Gen: Alert & oriented x3, no acute distress, not ill-appearing Neuro: Grossly intact CV: Regular rate Resp: Breathing comfortably on RA, no audible wheezing or accessory muscle use Abd: Soft, non-distended, Non-tender, well healed RLQ incision MSK: Moving all extremities, warm and well perfused, appropriate ROM, no edema Labs: Results from last 7 days Lab Units 07/17/25 0501 07/16/25 0508 07/15/25 1127 07/15/25 0327 07/14/25 0337 WBC AUTO 10*3/uL 13.62* 10.35 11.67* 10.32 10.57 HEMOGLOBIN g/dL 8.6* 8.6* 8.0* 6.9* 7.8* HEMATOCRIT % 25.1* 25.8* 23.9* 20.8* 23.5* PLATELETS AUTO 10*3/uL 181 181 168 152 162 Results from last 7 days Lab Units 07/17/25 0501 07/16/25 0508 07/15/25 0327 07/14/25 0337 07/13/25 2048 SODIUM mmol/L 141 139 139 139 138 POTASSIUM mmol/L 3.9 3.8 4.1 4.4 4.6 CO2 mmol/L 25 22 24 21 24 BUN mg/dL 41* 29* 23 21 22 CREATININE mg/dL 1.63* 1.55* 1.30 1.19 1.26 Medications: [Held by provider] azaTHIOprine, 75 mg, oral, Daily carvedilol, 25 mg, oral, BID with meals famotidine, 20 mg, oral, Nightly finasteride, 5 mg, oral, Daily hydrALAZINE, 100 mg, oral, TID megestrol, 800 mg, oral, Daily NIFEdipine XL, 30 mg, oral, Daily nystatin, 5 mL, Swish & Swallow, 4x daily Oxygen Therapy, , inhalation, Continuous pantoprazole, 40 mg, oral, Daily before breakfast predniSONE, 10 mg, oral, Daily sulfamethoxazole-trimethoprim, 160 mg of trimethoprim, oral, Once per day on Wednesday tacrolimus ER, 4 mg, oral, Daily tamsulosin, 0.8 mg, oral, Daily vancomycin, 125 mg, oral, 4x daily Imaging: XR chest 1 view Narrative: XR CHEST 1 VIEW 07/15/2025 1:23 PM CLINICAL INDICATIONS: Dyspnea. COMPARISON: 04/09/2025 FINDINGS: Heart size normal. Lungs are hyperinflated with congested lungs and effusions right more than left. Impression: Features of congestive heart failure. Electronically signed: Simone Cunningham MD. Assessment: Christal Suh is a 69 y.o. year old male with a PMH of ESRD 2/2 HTN now s/p DDRT, and history of ischemic stroke admitted for weakness and failure to thrive. Active Problems: S/p DDRT Need for immunosuppression H/o diverticulitis H/o stroke BPH with retention S/p TURP FTT COVID-19 C Diff diarrhea Severe protein-calorie malnutrition Plan: Diet: Regular, patient has severe PCM Nutritional supplements- Boost glucose control Patient would like these at his facility at discharge. Reports he does not enjoy the meals offered at his facility Dietary consulted Immunosuppression: Maintenance: Imuran on HOLD due to current infections, we will restart 50 mg daily Tacrolimus 4 mg once daily, follow level and adjust Pred 10 mg daily Immunoprophylaxis/Abx: Restarted bactrim Restarted Nystatin Swish Valcyte 450 mg once daily Monitor renal function: UOP: good output Renal function close to baseline, slightly elevated today, monitor, encourage PO hydration Will send prospera/DSA/BK and CMV Results from last 7 days Lab Units 07/17/25 0501 07/16/25 0508 07/15/25 0327 07/14/25 0337 07/13/25 2048 CREATININE mg/dL 1.63* 1.55* 1.30 1.19 1.26 BUN mg/dL 41* 29* 23 21 22 Recent C Diff, COVID-19 Consulted ID, appreciate recommendations No respiratory symptoms, did require Bipap on 07/15, on room air now, will continue to monitor Currently on oral vanc 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 Anemia of chronic kidney disease: Monitor, daily CBC Iron studies Aranesp given 07/16 Leukocytosis, slightly increased, likely from C Diff, monitor , does have h/o splenectomy Results from last 7 days Lab Units 07/17/25 0501 07/16/25 0508 07/15/25 1127 07/15/25 0327 07/14/25 0337 07/13/25 2048 WBC AUTO 10*3/uL 13.62* 10.35 11.67* 10.32 10.57 12.69* HEMOGLOBIN g/dL 8.6* 8.6* 8.0* 6.9* 7.8* 9.2* PLATELETS AUTO 10*3/uL 181 181 168 152 162 186 Fluid/Electrolytes: IVF: None currently, IVF stopped, will give him some maintenance fluids today due to MEDARDO Electrolytes: Monitor/replace per protocol Results from last 7 days Lab Units 07/17/25 0501 07/16/25 0508 07/15/25 0327 07/14/25 0337 07/13/25 2048 SODIUM mmol/L 141 139 139 139 138 POTASSIUM mmol/L 3.9 3.8 4.1 4.4 4.6 CHLORIDE mmol/L 108* 106 108* 109* 109* CO2 mmol/L 25 22 24 21 24 BUN mg/dL 41* 29* 23 21 22 CREATININE mg/dL 1.63* 1.55* 1.30 1.19 1.26 PHOSPHORUS mg/dL 2.5 4.0 3.0 3.4 3.4 CALCIUM mg/dL 8.4* 8.5* 8.5* 7.7* 7.4* Hypertension: Home Rx: Carvedilol, hydralazine, nifedipine Nephrology consulted, appreciate recommendations BPH with retention Home meds: Tamsulosin, Finasteride S/p TURP No difficulty in voiding Severe protein-calorie malnutrition Had edema at admission, Albumin infusion TiD > albumin, resolved Nutrition consulted Will obtain calorie count, eating better today, says he doesn't like the food at the rehab, that's why he has not been eating well Will give boost shakes tid, encouraged to eat better, eating better yesterday Started megestrol on admission H/o stroke: on baby aspirin/ debility PT, OT consulted PRM consulted DVT prophylaxis: SCD cuffs, encourage ambulation Bowel regimen: none Respiratory: Encourage incentive spirometry use every hour DISPO: Discharge possibly today if facility finalized Raegan Allison MD, PGY4 General Surgery Resident Cosigned by Jayjay Robin MD at 07/17/2025 11:00 AM EST Associated attestation - Jayjay Robin MD - 07/17/2025 11:00 AM EST By using the attestations below, the signing [...] documentation from me. Additional Comments: Doing well today. Creatinine slightly up, will give some IV fluids and encourage p.o. hydration. Tac level pending. Start Imuran at low dose. Send Prospera/DSA/CMV/BK. Does not have urinary symptoms,does have some leukocytosis, check urine culture. Eating better, likes protein shakes. Albumin is good today. Check UA for protein. * Anthony Stern MD - 07/16/2025 2:20 PM EST Images from the original note were not included. Nephrology Progress Note Patient : Christal Suh; 69 y.o. Location: [id number] Attending: Jayjay Robin MD Admit Date: 07/13/2025 Hospital Day: 3 Reason for Consult: Medical and Immunosuppressive Management in Renal Transplant Subjective: History of present illness: Christal Suh is a 69 y.o. 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 He is Covid-19 positive and positive for C Diff. Patient has not been eating or drinking well. Notably, he was recently admitted to [facility] for a pseudomonas UTI from 05/29 to 06/15. Patient was evaluated at bedside. Patient is angry and intermittently cooperative with exam. After prolonged discussion, patient is frustrated with the number of people that keep coming into his rooms and he does not like that there are different doctors from various services asking him the same qu estions. His kidney function actually looks to be improving w/ creatinine of 1.19 today and stableelectrolytes. Interval history: 07/16/25 Patient was examined at bedside. He is currently stable and in no acute distress. Vital signs stable and patient is oxygenating well on room air. Yesterday, patient had an episode of respiratory distress requiring BiPAP. CXR was performed suggesting fluid overload. Gracia was given 2 puff of albuterol 90 mcg, 1 ipratropium-albuterol nebulizer treatment, 125 mg Solu-Medrol, and 80 mg IV Lasix. He had significant improvement in respiratory status and was removed from BiPAP and supplemental oxygen. Patient had a slight increase in his serum creatinine from 1.3 yesterday to 1.55 today likely due to the IV Lasix he received. His urine output over the past 24 hours has been excellent at 2.5 L. He has no acute complaints at this time and ROS is diffusely negative. Imuran is on hold due to acute infection. Objective: Input/Output: Intake/Output Summary (Last 24 hours) at 07/16/2025 1420 Last data filed at 07/16/2025 1240 Gross per 24 hour Intake 1220 ml Output 3100 ml Net -1880 ml I/O last 3 completed shifts: In: 1253 (15.5 mL/kg) [P.O.:960; IV Piggyback:293] Out: 2450 (30.4 mL/kg) [Urine:2450 (0.8 mL/kg/hr)] Weight: 80.7 kg Vital signs: Temperature: Temp: 36.6 ??C (97.9 ??F) TMax: Temp (24hrs), Av.6 ??C (97.9 ??F), Min:36.4 ??C (97.5 ??F), Max:36.8 ??C (98.2 ??F) Respirations: Resp: 19 Pulse: Heart Rate: 80 BP: BP: 125/75 BP Range: Systolic (24hrs), Av , Min:114 , Max:147 Diastolic (24hrs), Av, Min:73, Max:87 Wt Readings from Last 3 Encounters: 07/16/25 80.7 kg (177 lb 14.9 oz) 06/15/25 79 kg (174 lb 2.6 oz) 05/29/25 78.3 kg (172 lb 9.6 oz) Physical Exam Constitutional: General: He is not in acute distress. Appearance: Normal appearance. He is not ill-appearing. HENT: Head: Normocephalic and atraumatic. Cardiovascular: Rate and Rhythm: Normal rate and regular rhythm. Heart sounds: Normal heart sounds. No murmur heard. Pulmonary: Effort: Pulmonary effort is normal. No respiratory distress. Breath sounds: Normal breath sounds. Abdominal: General: Abdomen is flat. Palpations: Abdomen is soft. Musculoskeletal: General: No swelling. Right lower leg: No edema. Left lower leg: No edema. Skin: General: Skin is warm and dry. Neurological: Mental Status: He is alert and oriented to person, place, and time. Motor: No weakness. Psychiatric: Mood and Affect: Mood normal. Behavior: Behavior normal. Current Medications: Scheduled Meds: [Held by provider] azaTHIOprine, 75 mg, oral, Daily carvedilol, 25 mg, oral, BID with meals famotidine, 20 mg, oral, Nightly finasteride, 5 mg, oral, Daily hydrALAZINE, 100 mg, oral, TID megestrol, 800 mg, oral, Daily NIFEdipine XL, 30 mg, oral, Daily Oxygen Therapy, , inhalation, Continuous pantoprazole, 40 mg, oral, Daily before breakfast predniSONE, 10 mg, oral, Daily tacrolimus ER, 4 mg, oral, Daily tamsulosin, 0.8 mg, oral, Daily valGANciclovir, 450 mg, oral, Daily vancomycin, 125 mg, oral, 4x daily Continuous Infusions: PRN Meds: PRN medications: albuterol, melatonin, ondansetron ODT OR ondansetron, Insert peripheral IV AND Saline lock IV AND sodium chloride Outpatient Medications: Medication Documentation Review Audit Reviewed by Adrienne Brown RN (Registered Nurse) on 07/13/25 at 2139 Medication Order Taking? Sig Documenting Provider Last Dose Status acetaminophen (Tylenol) 325 mg tablet [id number] Take 650 mg by mouth every 6 (six) hours if needed for mild pain (1-3 pain score) or fever greater than or equal to 38 degrees Celsius. Historical Provider, Active azaTHIOprine (Imuran) 75 mg tablet [id number] No Take 1 tablet (75 mg) by mouth in the morning for 96doses. Patient not taking: Reported on 07/13/2025 Grazyna Briseno CNP Not Taking Active calcium carbonate (Tums) 200 mg calcium (500 mg) chewable tablet [id number] Chew 3 tablets (1,500 mg)two times daily. Without food Patient taking differently: Chew 2 tablets two times daily. Without food Jayjay Robin MD Active calcium carbonate-vitamin D3 500 mg-5 mcg (200 unit) tablet [id number] Take 2 tablets by mouth two times daily. Patient taking differently: Take 1 tablet by mouth at bedtime. Grazyna Briseno CNP Active carvedilol (Coreg) 25 mg tablet [id number] 25 mg with breakfast and with evening meal. Historical ProviderMD Active cephalexin (Keflex) 500 mg capsule [id number] Take 500 mg by mouth four times daily. FOR INFECTION FOR 10 DAYS(07/13 - 07/23) Cristal Vazquez MD Active docusate sodium (Colace) 100 mg capsule [id number] Take 100 mg by mouth two times daily. Historical ProviderMD Active famotidine (Pepcid) 20 mg tablet [id number] Take 1 tablet (20 mg) by mouth at bedtime. Jayjay Robin MD Active finasteride (Proscar) 5 mg tablet [id number] Take 1 tablet (5 mg) by mouth in the morning. Do not crush, chew, or split. Jayjay Robin MD Active folic acid (Folvite) 1 mg tablet [id number] Take 1 tablet (1 mg) by mouth in the morning for 94 doses. Grazyna Briseno CNP Active guaiFENesin (Mucinex) 600 mg 12 hr tablet [id number] Take 1,200 mg by mouth two times daily. Do not crush, chew, or split. Cristal Vazquez MD Active hydrALAZINE (Apresoline) 100 mg tablet [id number] Take 1 tablet (100 mg) by mouth three times daily. Wendy Lomeli MD Active ipratropium-albuteroL (Duo-Neb) 0.5-2.5 mg/3 mL nebulizer solution [id number] Take 3 mL by nebulization every 6 (six) hours if needed for wheezing or shortness of breath. Cristal Vazquez MD Active magnesium glycinate 100 mg magnesium capsule [id number] Take 3 capsules (300 mg) by mouth three timesdaily. Jayjay Robin MD Active NIFEdipine XL (Procardia XL) 30 mg 24 hr tablet [id number] Take 1 tablet (30 mg) by mouth in the morning. Do not crush, chew, or split. Jayjay Robin MD Active nystatin (Mycostatin) 100,000 unit/mL suspension [id number] Take 5 mL (500,000 Units) by mouth four times daily. Swish and swallow Wendy Lomeli MD Active ondansetron (Zofran) 4 mg tablet [id number] Take 4 mg by mouth every 4 (four) hours if needed for nausea or vomiting. Historical ProviderMD Active pantoprazole (ProtoNix) 40 mg EC tablet [id number] Take 1 tablet (40 mg) by mouth before breakfast. Do not crush, chew, or split. Delano Klein MD Active predniSONE (Deltasone) 10 mg tablet [id number] Take 1 tablet (10 mg) by mouth in the morning. Jayjay Robin MD Active sod phos di, mono-K phos mono (K Phos Neutral) tablet [id number] Take 1 tablet by mouth two times daily. Jayjay Robin MD Active sulfamethoxazole-trimethoprim (Bactrim DS) 800-160 mg tablet [id number] Take 1 tablet by mouth 3 (three) times a week. On Wednesday, Wednesday, and Wednesday Wendy Lomeli MD Active tacrolimus ER (Envarsus XR) 4 mg tablet ER [id number] Take 1 tablet (4 mg) by mouth in the morning. Script total 8.5 mg daily Patient taking differently: Take 4 mg by mouth in the morning. 4 mg daily Wendy Lomeli MD Active tamsulosin (Flomax) 0.4 mg 24 hr capsule [id number] Take 2 capsules (0.8 mg) by mouth in the morning.Jayjay Robin MD Active valGANciclovir (Valcyte) 450 mg tablet [id number] Take 1 tablet (450 mg) by mouth in the morning. As directed. Wendy Lomeli MD Active vancomycin (Vancocin) 125 mg capsule [id number] Take 125 mg by mouth 2 times daily. Historical Provider, Active Labs: I have reviewed the patient's most recent labs as listed below: Chemistry: Lab Results Component Value Date NA 139 07/16/2025 K 3.8 07/16/2025 CL 106 07/16/2025 CO2 22 07/16/2025 ANIONGAP 15 07/16/2025 BUN 29 (H) 07/16/2025 CREATININE 1.55 (H) 07/16/2025 EGFR 47.9 (L) 07/16/2025 CALCIUM 8.5 (L) 07/16/2025 MG 1.7 (L) 07/16/2025 PHOS 4.0 07/16/2025 PTH 190 (H) 04/16/2025 VITD25 23.3 (L) 04/16/2025 ALBUMIN 4.0 07/16/2025 PROT 5.3 (L) 07/16/2025 AST 18 07/16/2025 ALT 22 07/16/2025 BILITOT 0.6 07/16/2025 BILIDIR 0.1 05/29/2025 ALKPHOS 142 (H) 07/16/2025 Hematology & Iron studies: Lab Results Component Value Date WBC 10.35 07/16/2025 HGB 8.6 (L) 07/16/2025 HCT 25.8 (L) 07/16/2025 MCV 99.6 (H) 07/16/2025 PLT 181 07/16/2025 IRON 36 (L) 07/15/2025 TIBC <91 (L) 07/15/2025 UIBC <55.0 (L) 07/15/2025 IRONSAT 07/15/2025 Comment: Unable to Calculate FERRITIN 437.0 (H) 07/15/2025 Urine chemistry Lab Results Component Value Date PROTUR 30 (A) 06/12/2025 PROTUR 174.9 05/29/2025 CREATUR 95.0 05/29/2025 Urinalysis & Microscopy: No results found for: COLORU , CLARITYU , SPECGRAVU , BENNETT , PROTUR , LEUKOCYTESU , NITRITEU , GLUCOSEU , KETONESU , BILIRUBINUR , UROBILINOGEN , BLOODU , RBCU , WBCU , SQUAMEPIU , MUCUSU , TRIPHOCRYU , CAOXALCRU , CAPHOSCRYU Urine Eosinophils: No components found for: UEOS Serology & Other labs: Lab Results Component Value Date HEPCAB Nonreactive 04/01/2025 HEPBSAG Nonreactive 04/01/2025 BNP: No results found for: BNP JOSELO: No results found for: JOSELO SPEP: Lab Results Component Value Date PROT 5.3 (L) 07/16/2025 UPEP: No components found for: LABPE C3: No results found for: C3 C4: No results found for: C4 MPO ANCA: No components found for: MPO PR3 ANCA: No components found for: PR3 Anti-GBM: No components found for: GBMABIGG Hep BsAg: No results found for: HEPBSAG Hep C AB: No results found for: HEPCAB Radiology: XR chest 1 view Narrative: XR CHEST 1 VIEW 07/15/2025 1:23 PM CLINICAL INDICATIONS: Dyspnea. COMPARISON: 04/09/2025 FINDINGS: Heart size normal. Lungs are hyperinflated with congested lungs and effusions right more than left. Impression: Features of congestive heart failure. Electronically signed: Simone Cunningham MD. Assessment: s/p DDRT (03/31/2025) on immunosuppressive therapy. Immunosuppression: tacrolimus 4 mg daily, prednisone 10 mg daily, Imuran 75 mg daily (on hold). Covid pneumonia Clostridium difficile infection on Vancomycin Hypomagnesemia Magnesium was 1.7 today. Plan: Continue to hold Imuran until patient's symptoms resolve, then resume home dose. Continue tacrolimus 4 mg daily and prednisone 10 mg daily. Patient is stable and not on supplemental oxygen. Will likely be okay for discharge and follow up in the outpatient clinic. Monitor I/Os, trend creatinine Monitor electrolytes, replete as needed Avoid nephrotoxic agents Thank you for the consultation. Please do not hesitate to contact us for any questions/concerns. Mónica continue to follow along with you. Anthony Stern MD, PhD Internal Medicine Resident, PGY-3 [facility] Cosigned by Wendy Lomeli MD at 07/16/2025 7:08 PM EST Associated attestation - Wendy Lomeli MD - 07/16/2025 7:08 PM EST By using the attestations below, the signing [...] be an additional personal documentation from me. * Ruth Rodriguez, OT - 07/16/2025 1:40 PM EST Occupational Therapy Occupational Therapy Evaluation Patient Name: Christal Suh : 1955 Today's Date: 07/16/2025 Start Time: 1057 Stop Time: 1129 Time Calculation (min): 32 min OT Evaluation Time Entry OT Evaluation (Moderate) Time Entry: 32 General Subjective: RN okay'd OT eval. Pt received in bed, agreeable and cooperative throughout. At end of session, pt left seated EOB per his request with okay from RN to leave pt in this position. Call light in reach and all needs met. Patient Summary: Pt is a 69 y/o male admitted from [facility] for failure to thrive. Pt had recent admission from 05/29-06/15/25 for UTI then discharged to skilled rehab. Pt now is positive for COVID-19 andC-diff. Pt also had recent CVA in April of this year. Pt referred to OT services to address deficits in ADL/IADL performance and to make d/c recs. OT Diagnosis: Decreased ADL performance Problem List[1] Medical History[2] Surgical History[3] Precautions Precautions Medical Precautions: fall risk, isolation, telemetry, IV, Purewick (Droplet+ precutions) Pain Pain Assessment Pain Assessment: No/denies pain Pain Score: 0 - No pain Cognition Cognition Overall Cognitive Status: Within Functional Limits Arousal/Alertness: Appropriate responses to stimuli Orientation Level: Oriented X4 Following Commands: Follows one step commands without difficulty Safety Judgment: Decreased awareness of need for safety Awareness of Errors: Assistance required to identify errors made, Assistance required to correct errors made Deficits: Decreased awareness of deficits Attention Span: Appears intact Memory: Appears intact Problem Solving: Assistance required to identify errors made, Assistance required to generate solutions Communication: Intact General Assessment General Assessment Hearing: Intact Edema: None observed Hand Dominance: Right Home Living Home Living Type of Home: assisted facility (Presents from SNF, was last home IND prior to April of this year) Home Living Comments: Prior to hospitalizations/SNF stays, pt was living with sister in a house perchart review. 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) Static Sitting Balance Static Sitting Balance Static Sitting-Balance Support: Feet supported Static Sitting-Level of Assistance: Distant supervision Dynamic Sitting Balance Dynamic Sitting Balance Dynamic Sitting-Balance Support: Feet supported Dynamic Sitting-Balance: Lateral lean, Forward lean Dynamic Sitting Balance-Level of Assistance: Close supervision Static Standing Balance Static Standing Balance Static Standing-Balance Support: Right upper extremity supported, Left upper extremity supported (HHAx2) Static Standing-Level of Assistance: Minimum assistance (MIN Ax2) ADL ADL UE Dressing Assistance: Stand by UE Dressing Deficit: (Managing gown) LE Dressing Assistance: Stand by LE Dressing Deficit: Don/doff L shoe Bed Mobility Bed Mobility Bed Mobility: Yes Bed Mobility 1 Bed Mobility From 1: Supine Bed Mobility Type 1: To Bed Mobility to 1: Short sit Level of Assistance 1: Close supervision Bed Mobility Comments 1: HOB elevated, SBA required Transfers Transfers Ambulation comments: Did not assess due to significant unsteadiness, fatigue, and SOB with first STS trial from EOB Transfer: Yes Transfer 1 Transfer From 1: Bed, Sit Transfer Type 1: To and from Transfer to 1: Stand Technique 1: Sit to stand, Stand to sit Transfer Device 1: other (HHAx2) Transfer Level of Assistance 1: Moderate assistance, x2 Trials/Comments 1: Pt standing from EOB with MOD Ax2, tolerated for ~20 seconds before requiring seated rest break. Utilized FAMILY CONSUMER SCIENCE FCS TEACHER due to RW not present in isolation room. Objective General Assessments Activity Tolerance Endurance: Stage II Stage II (METs 1.4-2.0) - Sittin-10 mins Activity Tolerance Comments: Tolerated sitting EOB and 1 STS trial with moderate SOB and fatigue observed. Vitals remained stable on RA. Vision - Basic Assessment Current Vision: Wears glasses only for reading Sensation Light Touch: No apparent deficits Sensation Comments: Pt denies numbness/tingling. Perception Inattention/Neglect: Appears intact Initiation: Appears intact Motor Planning: Appears intact Perseveration: Not present Coordination Movements are Fluid and Coordinated: Yes Hand Function Gross Grasp: Functional Coordination: Functional Extremity Assessments RUE Assessment RUE Assessment: Within Functional Limits LUE Assessment LUE Assessment: Within Functional Limits RLE Assessment RLE Assessment: (See PT eval) LLE Assessment LLE Assessment: (See PT eval) Outcome Assessments AM-PAC 6 Clicks Putting on and taking off regular lower body clothing?: A Little (Min Assist/Contact Guard/Supervision) Bathing(Including washing,rinsing,drying)?: A Lot (Mod/Max Assist) Toileting, which includes using the toilet,bedpan,or urinal?: A Lot (Mod/Max Assist) Putting on and taking off regular upper body clothing?: A Little (Min Assist/Contact Guard/Supervision) Taking care of personal grooming such as brushing teeth?: A Little (Min Assist/Contact Guard/Supervision) Eating meals?: None (Independent) Total Score OT [facility]: 17 Assessment/Plan OT Assessment OT Impairments: Decreased ADL status, Decreased endurance, Decreased functional mobility, Decreasedsafe judgment during ADL, Decreased IADLs OT Assessment/MAIL LIST PROCESSOR Summary: Pt demo deficits with activity tolerance, balance, and safety that prevent him from participating in ADLs and functional mobility/transfers at his PLOF. Pt has been at a SNF for rehab and has been declining. He would benefit from OT services to address these deficits and s upport safe progression of IND with ADL performance in addition to further rehab once d/c from hospital. Prognosis: Good Evaluation/Treatment Tolerance: Patient limited by fatigue Medical Staff Made Aware: Yes OT Education/Comments: OT role, POC, purpose of session, safety awareness, bed mobility techniques,transfer training, activity promotion, fall prevention, ADL adaptive strategies, discharge planning(fair/good carryover) Plan Level of assist: 1 assist Treatment Interventions: ADL retraining, Endurance training, Neuromuscular reeducation, Functional transfer training, Patient/family training, Compensatory technique education, Equipment evaluation/education OT Plan: Skilled OT OT Frequency: 4 times per week OT Discharge Recommendations: Patient is able to return to prior living environment (Admitted from SNF, safe to return) Equipment Recommended: none OT - Discharge Recommendations Placed: Yes Ruth Rodriguez, OTD, OTR/L OT Goals Multi-Disciplinary Problems (from Occupational Therapy) Active Problems Problem: OT Misc Start Date: 07/16/25 Goal Start Date Expected End Date End Date Patient will perform functional transfers and functional mobility with SBA and use of DME PRN. 07/16/25 07/30/25 -- Goal Start Date Expected End Date End Date Patient will complete UB/LB ADLs with SUP A using AE/DME PRN 07/16/25 07/30/25 -- Goal Start Date Expected End Date End Date Patient will perform toilet transfer and toileting tasks with SBA to improve IND with ADLs 07/16/2512/29/25 -- Goal Start Date Expected End Date End Date Patient will complete basic grooming tasks standing at sink with SUP A to improve participation in ADLs. 07/16/25 07/30/25 -- Goal Start Date Expected End Date End Date Patient will verbalize and demonstrate proper use of 3+ energy conservation/work simplification techniques for increased ADL participation. 07/16/25 07/30/25 -- Goal Start Date Expected End Date End Date Patient will demonstrate 5+ minute dynamic standing balance task with SUP A and use of least restrictive device. 07/16/25 07/30/25 -- [1] Patient Active Problem List Diagnosis Hypertensive disorder Diverticular disease Vitamin D deficiency Proteinuria Secondary hyperparathyroidism of renal origin Anemia in chronic kidney disease (CKD) History of DVT (deep vein thrombosis) Renal cyst, left Gout Recurrent sinusitis NSAID long-term use CKD (chronic kidney disease) stage 5, GFR less than 15 ml/min ([facility]/HCC) Lung nodule seen on imaging study H/O splenectomy Kidney replaced by transplant GI bleed Diverticulitis Encounter for aftercare following kidney transplant Immunosuppression Benign prostatic hyperplasia with urinary retention Hypophosphatemia Bilateral lower extremity edema Hypocalcemia Hypomagnesemia Diarrhea Immunosuppressive management encounter following kidney transplant Hypoalbuminemia Suspected stroke patient last known to be well more than 2 hours ago Cerebrovascular accident (CVA) (CMS/HCC) BPH with obstruction/lower urinary tract symptoms BPH with urinary obstruction Urinary retention Gastroesophageal reflux disease without esophagitis S/P TURP Leucocytosis UTI (urinary tract infection) Transplant recipient S/P kidney transplant [2] Past Medical History: Diagnosis Date Anemia in chronic kidney disease (CKD) CKD (chronic kidney disease) stage 5, GFR less than 15 ml/min ([facility]/HCC) Diverticular disease s/p colectomy 2015 Gout History of DVT (deep vein thrombosis) proximal vein left leg (from distal calf to groin, 07/2021, was to be on lifelong warfarin but stopped after 05/2022 GI bleed) Hypertensive disorder Lung nodule seen on imaging study NSAID long-term use h/o Proteinuria Recurrent sinusitis Recurrent sinusitis Renal cyst, left Secondary hyperparathyroidism of renal origin Stroke ([facility]) Vitamin D deficiency [3] Past Surgical History: Procedure Laterality Date COLECTOMY [...] 40 cm SPLENECTOMY, TOTAL TRANSPLANT, KIDNEY, OPEN * Dean Dickson, PT - 07/16/2025 12:35 PM EST Physical Therapy Physical Therapy Evaluation Patient Name: Christal Suh : 1955 Today's Date: 07/16/2025 Start Time: 1057 Stop Time: 1129 Time Calculation (min): 32 min PT Evaluation Time Entry PT Evaluation (Moderate) Time Entry: 32 General Subjective: RN approved PT evaluation and OOB activity this date. In bed upon arrival, agreeable tosession. Upon completion, patient left on the EOB with call light within reach, RN aware. Patient Summary: Patient is a 69 y/o male presenting 07/14/25 direct admission for failure to thrive. Poor oral intact. Admitted for further management/work- up. Noted to be COVID (+) and being treated for C-diff. PT Diagnosis: Impaired activity tolerance/functional independence History of L frontal and temporal CVA 04/2025 Problem List[1] Medical History[2] Surgical History[3] Precautions Precautions Medical Precautions: fall risk, isolation, oxygen, telemetry, IV, Purewick Pain Pain Assessment Pain Assessment: No/denies pain Pain Score: 0 - No pain Cognition Cognition Overall Cognitive Status: Within Functional Limits Arousal/Alertness: Appropriate responses to stimuli Orientation Level: Oriented X4 Following Commands: Follows one step commands without difficulty General Assessment General Assessment Hearing: Intact Hand Dominance: Right Home Living Home Living Type of Home: assisted facility (Presnts from SNF - last known time home prior to 04/2025) Prior Level of Function Prior Function Level of [place]: Needs assistance with ADLs Prior Functional Mobility: Independent with rolling walker (Reports most recently ambulating shorter distances with use of RW) Receives Help From: NH/SNF staff ADL Assistance: Needs assistance Vision Basic Assessment Vision - Basic Assessment Current Vision: Wears glasses only for reading Vision - Complex General Assessments Activity Tolerance Endurance: Stage II Activity Tolerance Comments: Room air throughout session though noted of fatigue with attempted standing. Tolerated sitting EOB Well Sensation Light Touch: No apparent deficits Coordination Movements are Fluid and Coordinated: Yes Postural Control Postural Control: Within Functional Limits Static Sitting Balance Static Sitting-Balance Support: Feet supported Static Sitting-Level of Assistance: Distant supervision Dynamic Sitting Balance Dynamic Sitting-Balance Support: Right upper extremity supported, Left upper extremity supported, Feet supported Dynamic Sitting-Balance: Forward lean, Lateral lean Dynamic Sitting Balance-Level of Assistance: Close supervision Static Standing Balance Static Standing-Balance Support: Right upper extremity supported, Left upper extremity supported (FAMILY CONSUMER SCIENCE FCS TEACHER x2) Static Standing-Level of Assistance: Minimum assistance Functional Assessments Bed Mobility Bed Mobility: Yes Bed Mobility 1 Bed Mobility From 1: Supine Bed Mobility Type 1: To Bed Mobility to 1: Short sit Level of Assistance 1: Close supervision Bed Mobility Comments 1: HOB elevated ~45 degrees, patient able to complete supine to short sittingwith SBA Transfers Transfer: Yes Transfer 1 Technique 1: Sit to stand, Stand to sit (From EOB) Transfer Device 1: (FAMILY CONSUMER SCIENCE FCS TEACHER x2) Transfer Level of Assistance 1: Moderate assistance, x2 Trials/Comments 1: Able to complete sit to stand from EOB with Mod (A) X2, able to achieve full standing posture x20 seconds prior to sitting again. RW not present though would likely improve performance. Ambulation Ambulation: No Extremity Assessments RUE Assessment RUE Assessment: Within Functional Limits LUE Assessment LUE Assessment: Within Functional Limits RLE Assessment RLE Assessment: Exceptions to WFL (BLE hip flexion 4-/5, BLE quadriceps 4/5, BLE ankle DF 4/5) LLE Assessment LLE Assessment: Exceptions to WFL (BLE hip flexion 4-/5, BLE quadriceps 4/5, BLE ankle DF 4/5) Outcome Assessments 6 Clicks (Mobility) Help from another person turning from your back to your side while in a flat bed without using bedrails: A little Help from another person moving from lying on your back to sitting on the side of a flat bed without using bedrails: A little Help from another person moving to and from a bed to a chair (including a wheelchair): A little Help from another person standing up from a chair using your arms (e.g. wheelchair or bedside chair): A little Help from another person to walk in hospital room: A little Help from another person climbing 3-5 steps with a railing: A lot Mobility 6 Clicks T-Score: 17 Assessment/Plan PT Assessment Impairments: Decreased strength, Decreased endurance, Impaired balance, Decreased mobility PT Assessment: Patient is a 69 y/o male presenting with impaired activity tolerance/functional independence. Will continue to benefit from additional skilled PT services to maximize safety/independence. Prognosis: Good Evaluation/Treatment Tolerance: Patient tolerated treatment well Medical Staff Made Aware: Yes Plan Level of assist: 1 assist Treatment/Interventions: Functional transfer training, LE strengthening/ROM, Bed mobility, Gait training, Balance training, Patient/family training PT Plan: Skilled PT PT Frequency: 5 times per week PT Discharge Recommendations: Patient is able to return to prior living environment (Presents from SNF) Equipment Recommended: none PT - Discharge Recommendations Placed: Yes PT Goals Multi-Disciplinary Problems (from Physical Therapy) Active Problems Problem: PT Misc Start Date: 07/16/25 Goal Start Date Expected End Date End Date Patient to demonstrate the ability to complete all bed mobility independently with HOB progressing to flat 07/16/25 07/30/25 -- Goal Start Date Expected End Date End Date Patient to demonstrate the ability to complete all transfers with Min (A) X1 and use of RW as needed 07/16/25 07/30/25 -- Goal Start Date Expected End Date End Date Patient to demonstrate the ability to ambulate 50 ft with Min (A) X1 and use of RW as appropriate 07/16/25 07/30/25 -- Goal Start Date Expected End Date End Date Patient to participate in BLE exercise to improve strength and limit effects of immobility related to hospital admission. 07/16/25 07/30/25 -- Goal Start Date Expected End Date End Date Patient to demo the ability to maintain standing balance throughout all standing functional tasks with assistive device as needed 07/16/25 07/30/25 -- [1] Patient Active Problem List Diagnosis Hypertensive disorder Diverticular disease Vitamin D deficiency Proteinuria Secondary hyperparathyroidism of renal origin Anemia in chronic kidney disease (CKD) History of DVT (deep vein thrombosis) Renal cyst, left Gout Recurrent sinusitis NSAID long-term use CKD (chronic kidney disease) stage 5, GFR less than 15 ml/min (CMS/HCC) Lung nodule seen on imaging study H/O splenectomy Kidney replaced by transplant GI bleed Diverticulitis Encounter for aftercare following kidney transplant Immunosuppression Benign prostatic hyperplasia with urinary retention Hypophosphatemia Bilateral lower extremity edema Hypocalcemia Hypomagnesemia Diarrhea Immunosuppressive management encounter following kidney transplant Hypoalbuminemia Suspected stroke patient last known to be well more than 2 hours ago Cerebrovascular accident (CVA) (CMS/HCC) BPH with obstruction/lower urinary tract symptoms BPH with urinary obstruction Urinary retention Gastroesophageal reflux disease without esophagitis S/P TURP Leucocytosis UTI (urinary tract infection) Transplant recipient S/P kidney transplant [2] Past Medical History: Diagnosis Date Anemia in [...] renal origin Stroke (CMS/HCC) Vitamin D deficiency [3] Past Surgical History: Procedure Laterality Date COLECTOMY [...] 40 cm SPLENECTOMY, TOTAL TRANSPLANT, KIDNEY, OPEN * Nile Cho RRT - 07/16/2025 8:40 AM EST Respiratory Therapy Note Pt was placed on BIPAP yesterday due to being in respiratory distress. Pt was taken off bipap and put on RA last night. Pt seen this morning on RA, no distress noted, will continue to monitor. * Jonny Merino MD - 07/16/2025 8:00 AM EST Images from the original note were not included. Infectious Diseases - Inpatient daily Progress Note - Patient name: Christal Suh Patient Today's Date and Time: 07/16/2025, 2:33 PM Admission Date: 07/13/2025 Assessment/Plan Impression: Hx of C.Diff Diarrhea Reported history of C.Diff diarrhea that the patient states has been on PO vancomycin for about 7 days now. We have contacted the facility several times to confirm the diagnosis and treatment of C.diff to no avail. Patient can continue PO vancomycin until 07/18. Bowel habits are already improving. COVID 19 Positive Test Reported history of COVID in the facility. COVID antigen test here positive. Would continue airborne precautions. No indications for therapy at this time. HX of DDRT EBV +/+ CMV -/+ Management of graft per transplant team. Can continue tacrolimus + prednisone Continue PTX with Valcyte therapy Recommendations: Recommend following ABX regimen: PO Vancomycin 125mg PO four times daily for total of 10 days. Can stop therapy after 07/18 as patient states he has been on it for at least one week. No therapy indicated right now for reported COVID Continue Valcyte PTX Would keep patient in airborne precautions for potential recent COVID test Transplant regimen per primary: Tacrolimus 4mg daily + Prednisone 10mg daily Subjective Interval history: No new issues this AM. Patient tolerating PO vancomycin. Has improved bowel habitus. No oxygen demands. Objective Physical Examination: BP 125/75 (BP Location: Right arm, Patient Position: Sitting) Pulse 80 Temp 36.6 ??C (97.9 ??F)(Temporal) Resp 19 Ht 1.854 m (6' 0.99 ) Wt 80.7 kg (177 lb 14.9 oz) SpO2 100% BMI 23.48 kg/m?? Temperature Range: Temp: 36.6 ??C (97.9 ??F) Temp Av.6 ??C (97.9 ??F) Min: 36.4 ??C (97.5 ??F)Max: 36.8 ??C (98.2 ??F) General Appearance: Awake, alert, and in no apparent distress, nontoxic Eyes: Sclera anicteric; conjunctivae pink ENT: Oropharynx clear, without erythema, exudate, no thrush. Neck: Supple, without lymphadenopathy. Pulmonary/Chest: Clear to auscultation, without wheezes, rales, no rhonchi Cardiovascular: Regular rate and rhythm without murmurs Abdomen: soft, non-tender, nondistended, no palpable masses no organomegaly; normal bowel sounds. Scar present in RLQ abdomen. Extremities: No cyanosis, edema, no joint effusions. Neurologic: Alert and oriented x 3, nonfocal; strength and sensation grossly normal Skin: No rash no lesions. No pallor Laboratory data: I have independently reviewed the following labs: Results from last 7 days Lab Units 07/16/25 0508 07/15/25 1127 07/15/25 0327 WBC AUTO 10*3/uL 10.35 11.67* 10.32 HEMOGLOBIN g/dL 8.6* 8.0* 6.9* HEMATOCRIT % 25.8* 23.9* 20.8* MCV fL 99.6* 100.8* 102.5* PLATELETS AUTO 10*3/uL 181 168 152 NEUTROS ABS 10*3/uL -- 8.78* -- LYMPHS ABSOLUTE 10*3/uL -- 1.67 -- MONOS ABSOLUTE 10*3/uL -- 0.95 -- EOS ABSOLUTE 10*3/uL -- 0.05 -- BASOS ABSOLUTE 10*3/uL -- 0.02 -- Results from last 7 days Lab Units 07/16/25 0508 07/15/25 0327 07/14/25 0337 POTASSIUM mmol/L 3.8 4.1 4.4 CHLORIDE mmol/L 106 108* 109* CO2 mmol/L 22 24 21 BUN mg/dL 29* 23 21 CREATININE mg/dL 1.55* 1.30 1.19 GLUCOSE mg/dL 175* 94 148* CALCIUM mg/dL 8.5* 8.5* 7.7* ALK PHOS U/L 142* 207* 70 ALT U/L 22 27 9 AST U/L 18 38 10* No lab exists for component: PROCALCITON No lab exists for component: TURBIDITY , SPECIFICGRA , PHURINE , LEUKOCYTE , PROTEIN , BLOODHGB , RBCELLS , RENALEPITH No lab exists for component: TOXIGENICC Imaging Studies: I have reviewed myself the following imaging studies performed in the past 3 days: XR chest 1 view Result Date: 07/15/2025 Features of congestive heart failure. Electronically signed: Simone Cunningham MD. No CT results found for the past 3 days No MRI results found for the past 3 days Cultures: No results found for any visits on 07/13/25. Medications: [Held by provider] azaTHIOprine, 75 mg, oral, Daily carvedilol, 25 mg, oral, BID with meals famotidine, 20 mg, oral, Nightly finasteride, 5 mg, oral, Daily hydrALAZINE, 100 mg, oral, TID megestrol, 800 mg, oral, Daily NIFEdipine XL, 30 mg, oral, Daily Oxygen Therapy, , inhalation, Continuous pantoprazole, 40 mg, oral, Daily before breakfast predniSONE, 10 mg, oral, Daily tacrolimus ER, 4 mg, oral, Daily tamsulosin, 0.8 mg, oral, Daily valGANciclovir, 450 mg, oral, Daily vancomycin, 125 mg, oral, 4x daily This progress note was completed using a voice clip loading machine adjuster system. Every effort was made to ensure accuracy; however, inadvertent computerized clip loading machine adjuster errors may be present. Thank you for allowing us to participate in the care of this patient. Our consultation addresses complex antimicrobial therapy counseling and treatment Jonny Merino MD [facility] Infectious Diseases Please contact us via Epic chat during business hours. If no response in 15 min, call / page through the spreader operator automatic Cosigned by Philip Jones MD at 07/16/2025 4:03 PM EST Associated attestation - Philip Jones MD - 07/16/2025 4:03 PM EST I performed a history and physical examination of the patient Christal Suh, I independently reviewed the laboratory work and imaging as well as other studies mentioned in the above note; I have seenthe patient along with and discussed the management with the Infectious Diseases fellow, Jonny Merino MD I have reviewed the above note, I agree with the findings and plan of care with the following additions and corrections: COVID is basically asymptomatic C diff improved significantly, EOT in a couple of days Creatinine worsened somewhat. Nephrology following Thank you for allowing us to participate in the care of this patient. . * Jamison Guaman MD - 07/16/2025 7:06 AM EST Images from the original note were not included. Department of Urologic Surgery & Renal Transplantation PROGRESS NOTE HPI/Subjective Christal Suh is a 69 y.o. year old male with a PMH of ESRD 2/2 HTN now s/p DDRT on 03/31/25 followed by TURP on 05/11/25. He is admitted with FTT and reportedly COVID but no sifnificant symptoms. History of recent C Diff on oral vanc Hx of recent admit for a pseudomonas UTI from 05/29 to 06/15. Very upset at presentation but pleasant and cooperative today. Procedures/Operations: - 05/11/25 - [facility] (Uro): TURP - 05/01/25 - Clar (Uro): Bedside cysto, removal of stent - 03/31/25 - [facility] (Transplant): DDRT Objective: Vitals: Vitals: 07/16/25 0447 BP: Pulse: Resp: Temp: SpO2: 95% I/O last 3 completed shifts: In: 1253 (15.5 mL/kg) [P.O.:960; IV Piggyback:293] Out: 2450 (30.4 mL/kg) [Urine:2450 (0.8 mL/kg/hr)] Weight: 80.7 kg No intake/output data recorded. Gen: Alert & oriented x3, no acute distress, not ill-appearing Neuro: Grossly intact CV: Regular rate Resp: Breathing comfortably on RA, no audible wheezing or accessory muscle use Abd: Soft, non-distended, Non-tender, well healed surgical scar MSK: Moving all extremities, warm and well perfused, appropriate ROM, no edema Labs: Results from last 7 days Lab Units 07/16/25 0508 07/15/25 1127 07/15/25 0327 07/14/25 0337 07/13/25 2048 WBC AUTO 10*3/uL 10.35 11.67* 10.32 10.57 12.69* HEMOGLOBIN g/dL 8.6* 8.0* 6.9* 7.8* 9.2* HEMATOCRIT % 25.8* 23.9* 20.8* 23.5* 28.2* PLATELETS AUTO 10*3/uL 181 168 152 162 186 Results from last 7 days Lab Units 07/16/25 0508 07/15/25 0327 07/14/25 0337 07/13/25 2048 SODIUM mmol/L 139 139 139 138 POTASSIUM mmol/L 3.8 4.1 4.4 4.6 CO2 mmol/L 22 24 21 24 BUN mg/dL 29* 23 21 22 CREATININE mg/dL 1.55* 1.30 1.19 1.26 Medications: [Held by provider] azaTHIOprine, 75 mg, oral, Daily carvedilol, 25 mg, oral, BID with meals famotidine, 20 mg, oral, Nightly finasteride, 5 mg, oral, Daily hydrALAZINE, 100 mg, oral, TID megestrol, 800 mg, oral, Daily NIFEdipine XL, 30 mg, oral, Daily Oxygen Therapy, , inhalation, Continuous pantoprazole, 40 mg, oral, Daily before breakfast predniSONE, 10 mg, oral, Daily tacrolimus ER, 4 mg, oral, Daily tamsulosin, 0.8 mg, oral, Daily valGANciclovir, 450 mg, oral, Daily vancomycin, 125 mg, oral, 4x daily Imaging: XR chest 1 view Narrative: XR CHEST 1 VIEW 07/15/2025 1:23 PM CLINICAL INDICATIONS: Dyspnea. COMPARISON: 04/09/2025 FINDINGS: Heart size normal. Lungs are hyperinflated with congested lungs and effusions right more than left. Impression: Features of congestive heart failure. Electronically signed: Simone Cunningham MD. Assessment: Christal Suh is a 69 y.o. year old male with a PMH of ESRD 2/2 HTN now s/p DDRT, and history of ischemic strok Active Problems: S/p DDRT Need for immunosuppression H/o diverticulitis H/o stroke BPH with retention S/p TURP FTT COVID-19 C Diff diarrhea Severe protein-calorie malnutrition Plan: Diet: Regular Nutritional supplements Dietary consulted Immunosuppression: Maintenance: Immuran on HOLD due to current infections Tacrolimus 4 mg once daily, follow level and adjust Pred 10 mg daily Immunoprophylaxis/Abx: Restart bactrim Restart Nystatin Swish Valcyte 450 mg once daily Monitor renal function: UOP: Please record q4 hours Renal function close to baseline, slightly elevated today, monitor, encourage PO hydration Results from last 7 days Lab Units 07/16/25 0508 07/15/25 0327 07/14/25 0337 07/13/25 2048 CREATININE mg/dL 1.55* 1.30 1.19 1.26 BUN mg/dL 29* 23 21 22 Recent C Diff, COVID-19 Consulted ID, appreciate recommendations No respiratory symptoms, diud require Bipap on 07/15, on room air now, will continue to monitor Currently on oral vanc Anemia of chronic kidney disease: Monitor, daily CBC Iron studies pending Aranesp vs iron supplementation FOBT pending Leukocytosis, mild, likely from C Diff Results from last 7 days Lab Units 07/16/25 0508 07/15/25 1127 07/15/25 0327 07/14/25 0337 07/13/25 2048 WBC AUTO 10*3/uL 10.35 11.67* 10.32 10.57 12.69* HEMOGLOBIN g/dL 8.6* 8.0* 6.9* 7.8* 9.2* PLATELETS AUTO 10*3/uL 181 168 152 162 186 Fluid/Electrolytes: IVF: None currently, IVF stopped Electrolytes: Monitor/replace per protocol Replete magnesium Results from last 7 days Lab Units 07/16/25 0508 07/15/25 0327 07/14/25 0337 07/13/25 2048 SODIUM mmol/L 139 139 139 138 POTASSIUM mmol/L 3.8 4.1 4.4 4.6 CHLORIDE mmol/L 106 108* 109* 109* CO2 mmol/L 22 24 21 24 BUN mg/dL 29* 23 21 22 CREATININE mg/dL 1.55* 1.30 1.19 1.26 PHOSPHORUS mg/dL 4.0 3.0 3.4 3.4 CALCIUM mg/dL 8.5* 8.5* 7.7* 7.4* Hypertension: Home Rx: Carvedilol, hydralazine, nifedipine Nephrology consulted, appreciate recommendations BPH with retention Home meds: Tamsulosin, Finasteride S/p TURP No difficulty in voiding Severe protein-calorie malnutrition Had edema at admission, Albumin infusion TiD > albumin significantly improved Nutrition consulted Will obtain calorie count, eating better today, says he doesn't like the food at the rehab, that's why he has not been eating well Will give boost shakes tid, encouraged to eat better, eating better today Started megestrol H/o stroke: on baby aspirin/ debility PT, OT consulted DVT prophylaxis: SCD cuffs, encourage ambulation Patient requesting help in getting up to chair Bowel regimen: none Respiratory: Encourage incentive spirometry use every hour DISPO: Discharge likely tomorrow if facility finalized Jamison Guaman MD Urology Resident, PGY-3 Cosigned by Jayjay Robin MD at 07/16/2025 3:44 PM EST Associated attestation - Jayjay Robin MD - 07/16/2025 3:44 PM EST By using the attestations below, the signing [...] additional personal documentation from me. Additional Comments: Feels better. Eating better today. Creatinine slightly up. Tac level adequate. Holding Imuran because of C. difficile and COVID infections. On room air this morning, did not need BiPAP yesterday. Encouraged to drink protein shakes. Diarrhea is improving. Possible discharge tomorrow to rehab if approved. Immunosuppression reviewed. Continue oral vancomycin for C. difficile. * Ethan Mendoza MD - 07/15/2025 12:28 PM EST Images from the original note were not included. Nephrology Progress Note Patient : Christal Suh; 69 y.o. Location: [id number] Attending: Jayjay Robin MD Admit Date: 07/13/2025 Hospital Day: 2 Reason for Consult: Medical and Immunosuppressive Management in Renal Transplant Subjective: History of present illness: Christal Suh is a 69 y.o. 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 He is Covid-19 positive and positive for C Diff. Patient has not been eating or drinking well. Notably, he was recently admitted to [facility] for a pseudomonas UTI from 05/29 to 06/15. Patient was evaluated at bedside. Patient is angry and intermittently cooperative with exam. After prolonged discussion, patient is frustrated with the number of people that keep coming into his rooms and he does not like that there are different doctors from various services asking him the same qu estions. His kidney function actually looks to be improving w/ creatinine of 1.19 today and stableelectrolytes. Interval history: 07/15/25 Patient doing well with no acute concerns for now I reassured him this AM that his Kidney Function is at baseline and he was pleased with this Objective: Input/Output: Intake/Output Summary (Last 24 hours) at 07/15/2025 1228 Last data filed at 07/15/2025 1030 Gross per 24 hour Intake 1864 ml Output 200 ml Net 1664 ml I/O last 3 completed shifts: In: 2543 (31.5 mL/kg) [P.O.:1260; IV Piggyback:1283] Out: 200 (2.5 mL/kg) [Urine:200 (0.1 mL/kg/hr)] Weight: 80.7 kg Vital signs: Temperature: Temp: 36.8 ??C (98.2 ??F) TMax: Temp (24hrs), Av.7 ??C (98.1 ??F), Min:36.5 ??C (97.7 ??F), Max:36.9 ??C (98.4 ??F) Respirations: Resp: 23 Pulse: Heart Rate: 73 BP: BP: 147/79 BP Range: Systolic (24hrs), Av , Min:101 , Max:149 Diastolic (24hrs), Av, Min:60, Max:83 Wt Readings from Last 3 Encounters: 07/15/25 80.7 kg (178 lb) 06/15/25 79 kg (174 lb 2.6 oz) 05/29/25 78.3 kg (172 lb 9.6 oz) Constitutional: General: He is not in acute distress. Appearance: Normal appearance. He is not ill-appearing. HENT: Head: Normocephalic and atraumatic. Cardiovascular: Rate and Rhythm: Normal rate and regular rhythm. Pulmonary: Effort: Pulmonary effort is normal. No respiratory distress. Breath sounds: Normal breath sounds. Musculoskeletal: General: No swelling. Right lower leg: Edema present. Left lower leg: Edema present. Skin: General: Skin is warm and dry. Neurological: Mental Status: He is alert and oriented to person, place, and time. Motor: No weakness. Psychiatric: Mood and Affect: Mood normal. Behavior: Behavior normal. Current Medications: Scheduled Meds: [Held by provider] azaTHIOprine, 75 mg, oral, Daily carvedilol, 25 mg, oral, BID with meals famotidine, 20 mg, oral, Nightly finasteride, 5 mg, oral, Daily hydrALAZINE, 100 mg, oral, TID megestrol, 800 mg, oral, Daily NIFEdipine XL, 30 mg, oral, Daily Oxygen Therapy, , inhalation, Continuous pantoprazole, 40 mg, oral, Daily before breakfast predniSONE, 10 mg, oral, Daily tacrolimus ER, 4 mg, oral, Daily tamsulosin, 0.8 mg, oral, Daily valGANciclovir, 450 mg, oral, Daily vancomycin, 125 mg, oral, 4x daily Continuous Infusions: PRN Meds: PRN medications: melatonin, ondansetron ODT OR ondansetron, Insert peripheral IV AND Saline lock IV AND sodium chloride Outpatient Medications: Medication Documentation Review Audit Reviewed by Adrienne Brown RN (Registered Nurse) on 07/13/25 at 2139 Medication Order Taking? Sig Documenting Provider Last Dose Status acetaminophen (Tylenol) 325 mg tablet [id number] Take 650 mg by mouth every 6 (six) hours if needed for mild pain (1-3 pain score) or fever greater than or equal to 38 degrees Celsius. Historical ProviderMD Active azaTHIOprine (Imuran) 75 mg tablet [id number] No Take 1 tablet (75 mg) by mouth in the morning for 96doses. Patient not taking: Reported on 07/13/2025 Grazyna Briseno CNP Not Taking Active calcium carbonate (Tums) 200 mg calcium (500 mg) chewable tablet [id number] Chew 3 tablets (1,500 mg)two times daily. Without food Patient taking differently: Chew 2 tablets two times daily. Without food Jayjay Robin MD Active calcium carbonate-vitamin D3 500 mg-5 mcg (200 unit) tablet [id number] Take 2 tablets by mouth two times daily. Patient taking differently: Take 1 tablet by mouth at bedtime. Grazyna Briseno CNP Active carvedilol (Coreg) 25 mg tablet [id number] 25 mg with breakfast and with evening meal. Historical ProviderMD Active cephalexin (Keflex) 500 mg capsule [id number] Take 500 mg by mouth four times daily. FOR INFECTION FOR 10 DAYS(07/13 - 07/23) Historical ProviderMD Active docusate sodium (Colace) 100 mg capsule [id number] Take 100 mg by mouth two times daily. Historical ProviderMD Active famotidine (Pepcid) 20 mg tablet [id number] Take 1 tablet (20 mg) by mouth at bedtime. Jayjay Robin MD Active finasteride (Proscar) 5 mg tablet [id number] Take 1 tablet (5 mg) by mouth in the morning. Do not crush, chew, or split. Jayjay Robin MD Active folic acid (Folvite) 1 mg tablet [id number] Take 1 tablet (1 mg) by mouth in the morning for 94 doses. Grazyna Briseno CNP Active guaiFENesin (Mucinex) 600 mg 12 hr tablet [id number] Take 1,200 mg by mouth two times daily. Do not crush, chew, or split. Cristal Vazquez MD Active hydrALAZINE (Apresoline) 100 mg tablet [id number] Take 1 tablet (100 mg) by mouth three times daily. Wendy Lomeli MD Active ipratropium-albuteroL (Duo-Neb) 0.5-2.5 mg/3 mL nebulizer solution [id number] Take 3 mL by nebulization every 6 (six) hours if needed for wheezing or shortness of breath. Cristal Vaqzuez MD Active magnesium glycinate 100 mg magnesium capsule [id number] Take 3 capsules (300 mg) by mouth three timesdaily. Jayjay Robin MD Active NIFEdipine XL (Procardia XL) 30 mg 24 hr tablet [id number] Take 1 tablet (30 mg) by mouth in the morning. Do not crush, chew, or split. Jayjay Robin MD Active nystatin (Mycostatin) 100,000 unit/mL suspension [id number] Take 5 mL (500,000 Units) by mouth four times daily. Swish and swallow Wendy Lomeli MD Active ondansetron (Zofran) 4 mg tablet [id number] Take 4 mg by mouth every 4 (four) hours if needed for nausea or vomiting. Cristal Vazquez MD Active pantoprazole (ProtoNix) 40 mg EC tablet [id number] Take 1 tablet (40 mg) by mouth before breakfast. Do not crush, chew, or split. Delano Klein MD Active predniSONE (Deltasone) 10 mg tablet [id number] Take 1 tablet (10 mg) by mouth in the morning. Jayjay Robin MD Active sod phos di, mono-K phos mono (K Phos Neutral) tablet [id number] Take 1 tablet by mouth two times daily. Jayjay Robin MD Active sulfamethoxazole-trimethoprim (Bactrim DS) 800-160 mg tablet [id number] Take 1 tablet by mouth 3 (three) times a week. On Wednesday, Wednesday, and Wednesday Wendy Lomeli MD Active tacrolimus ER (Envarsus XR) 4 mg tablet ER [id number] Take 1 tablet (4 mg) by mouth in the morning. Script total 8.5 mg daily Patient taking differently: Take 4 mg by mouth in the morning. 4 mg daily Wendy Lomeli MD Active tamsulosin (Flomax) 0.4 mg 24 hr capsule [id number] Take 2 capsules (0.8 mg) by mouth in the morning.Jayjay Robin MD Active valGANciclovir (Valcyte) 450 mg tablet [id number] Take 1 tablet (450 mg) by mouth in the morning. As directed. Wendy Lomeli MD Active vancomycin (Vancocin) 125 mg capsule [id number] Take 125 mg by mouth 2 times daily. Historical ProviderMD Active Labs: I have reviewed the patient's most recent labs as listed below: Chemistry: Lab Results Component Value Date NA 139 07/15/2025 K 4.1 07/15/2025 CL 108 (H) 07/15/2025 CO2 24 07/15/2025 ANIONGAP 11 07/15/2025 BUN 23 07/15/2025 CREATININE 1.30 07/15/2025 EGFR 59.1 (L) 07/15/2025 CALCIUM 8.5 (L) 07/15/2025 MG 2.0 07/15/2025 PHOS 3.0 07/15/2025 PTH 190 (H) 04/16/2025 VITD25 23.3 (L) 04/16/2025 ALBUMIN 4.5 07/15/2025 PROT 5.6 (L) 07/15/2025 AST 38 07/15/2025 ALT 27 07/15/2025 BILITOT 0.5 07/15/2025 BILIDIR 0.1 05/29/2025 ALKPHOS 207 (H) 07/15/2025 Hematology & Iron studies: Lab Results Component Value Date WBC 11.67 (H) 07/15/2025 HGB 8.0 (L) 07/15/2025 HCT 23.9 (L) 07/15/2025 MCV 100.8 (H) 07/15/2025 PLT 168 07/15/2025 IRON 36 (L) 07/15/2025 TIBC <91 (L) 07/15/2025 UIBC <55.0 (L) 07/15/2025 IRONSAT 07/15/2025 Comment: Unable to Calculate FERRITIN 207.0 04/01/2025 Urine chemistry Lab Results Component Value Date PROTUR 30 (A) 06/12/2025 PROTUR 174.9 05/29/2025 CREATUR 95.0 05/29/2025 Urinalysis & Microscopy: No results found for: COLORU , CLARITYU , SPECGRAVU , BENNETT , PROTUR , LEUKOCYTESU , NITRITEU , GLUCOSEU , KETONESU , BILIRUBINUR , UROBILINOGEN , BLOODU , RBCU , WBCU , SQUAMEPIU , MUCUSU , TRIPHOCRYU , CAOXALCRU , CAPHOSCRYU Urine Eosinophils: No components found for: UEOS Serology & Other labs: Lab Results Component Value Date HEPCAB Nonreactive 04/01/2025 HEPBSAG Nonreactive 04/01/2025 BNP: No results found for: BNP JOSELO: No results found for: JOSELO SPEP: Lab Results Component Value Date PROT 5.6 (L) 07/15/2025 UPEP: No components found for: LABPE C3: No results found for: C3 C4: No results found for: C4 MPO ANCA: No components found for: MPO PR3 ANCA: No components found for: PR3 Anti-GBM: No components found for: GBMABIGG Hep BsAg: No results found for: HEPBSAG Hep C AB: No results found for: HEPCAB Radiology: Cardiac event monitor [facility] Heart Station [address] [place] [address] (fax) Event Recorder-[facility] Name: CHRISTAL SUH Study Date: 05/02/2025 10:01 AM Date of : 1955 Location: [facility] Height: Age: 69 year(s) Patient Room: 4120 Weight: Gender: Male Patient Status: InPt BSA: Indication: Dizziness, Transient ischemic attack Examination: Event Recorder Rhythm: Normal Sinus Rhythm, Sinus Bradycardia , Sinus Tachycardia, Premature ventricular complexes, Ventricular Tachycardia, Supraventricular Tachycardia, Premature atrial complexes Start of Examination: 05/02/2025 Recording Duration: 30 days Findings: Primary rhythm is sinus with an average rate of 70bpm. There were zero symptomtic events. Note: there were 10 Supraventricular triplets, and 1 Ventricular triplet. Holter / Ambulatory ECG Average HR 70 bpm Time of Max. HR 20:33 day Time of Min. HR 01:29 day 4 Time of Max.RR-Int. 08:11 day 6 Max. HR 107 bpm Min. HR 56 bpm Max. RR Interval 46 sec VE / SVE VE Ectopics 68 VE Isolated Beats 58 VE Bigeminal 3 VE Couplets 1 VE Runs 1 Beats Longest VE Run 5 Rate Longest VE Run 146 bpm Time Longest VE Run 17:13 day 15 SVE Ectopics 2279 SVE Isolated Beats 2074 SVE Couplets 43 Atrial Bigeminy 3 cycles SVE Runs 14 Beats Longest SVE Run 15 Rate Longest SVE Run 119 bpm Time Longest SVE Run 11:13 day 15 Beats Fastest SVE Run 12 Rate Fastest SVE Run 136 bpm Time Fastest SVE Run 21:47 day 7 Procedure Staff Reading Group: [facility] Ordering Physician: SERA SHIN Supervisor Hand Workers: Edna Askew Assessment: ESRD s/p DDRT (03/31/2025) on immunosuppressive therapy. Immunosuppression: tacrolimus 4 mg daily, mycophenolate 180 mg twice daily, prednisone 10 mg daily. Covid pneumonia Clostridium difficile infection on Vancomycin Hypomagnesemia, resolved Plan: Okay to hold Imuran for now given active infection. Continue prednisone and tacrolimus 4 mg daily and adjust based on morning levels. Patient is fairly stable. Will likely be okay for discharge and follow up in the outpatient clinic. Monitor I/Os, trend creatinine Monitor electrolytes, replete as needed Avoid nephrotoxic agents Thank you for the consultation. Please do not hesitate to contact us for any questions/concerns. Tylerll continue to follow along with you. Ethan Mendoza MD PGY-4 Nephrology Fellow Cosigned by Dulce Hernandez MD at 07/15/2025 8:15 PM EST Associated attestation - Dulce Hernandez MD - 07/15/2025 8:15 PM EST I personally saw this patient on the day of the encounter with the fellow/resident, and performed the vogt portion(s) of the service and participated in the management and confirm the resident's documentation. Please note there may be an additional personal documentation from me. Plan discussed withprimary team during round. Dulce Hernandez MD Faculty, Division of Nephrology, Department of Medicine [facility]. * Elizabeth Washington, LEIGH - 07/14/2025 1:26 PM EST Adult Nutrition Assessment: Name: Christal Suh Date: 1955 Date of Visit: 07/14/25 Admission Dx: S/P kidney transplant [Z94.0] Reason for assessment: MD referral FTT Information obtained from: patient, medical record, nurse, and transfer record Medical History[1] Current Medications: albumin human, 100 g, intravenous, TID [Held by provider] azaTHIOprine, 75 mg, oral, Daily carvedilol, 25 mg, oral, BID with meals famotidine, 20 mg, oral, Nightly finasteride, 5 mg, oral, Daily hydrALAZINE, 100 mg, oral, TID NIFEdipine XL, 30 mg, oral, Daily Oxygen Therapy, , inhalation, Continuous pantoprazole, 40 mg, oral, Daily before breakfast predniSONE, 10 mg, oral, Daily tacrolimus ER, 4 mg, oral, Daily tamsulosin, 0.8 mg, oral, Daily valGANciclovir, 450 mg, oral, Daily vancomycin, 125 mg, oral, 4x daily Labs: 0 Lab Value Date/Time POCGLU 146 (H) 05/12/2025 1630 BUN 21 07/14/2025 0337 CREATININE 1.19 07/14/2025336 NA 139 07/14/2025 033 K 4.4 07/14/2025336 PHOS 3.4 07/14/2025336 MG 1.7 (L) 07/14/2025336 HGBA1C 4.6 04/29/2025413 HGB 7.8 (L) 07/14/2025336 WBC 10.57 07/14/2025336 CHOL 150 04/29/2025 0414 HDL 47 04/29/2025 0414 Allergies: Allergies[2] Fish, shellfish Nutrition Problems: Swallowing Assessment: pt denies swallowing difficulty Mouth: Missing teeth pt denies chewing difficulty Abdominal Assessment: H/o partial colectomy H/o diarrhea, myfortic changed to imuran (on hold 09/03 infection) Tested + for cdiff 07/03/25 Last BM 07/13/25 Appetite: poor Cognition: AO, irritable, apologetic C/o depressed & frustration Nutrition Deficits Prior to Admission: Calories, protein, fluid Feeding Skills: independent Some difficulty opening packages/containers Physical Findings: NFPE deferred at this time Skin Integrity: H/o B/L buttocks stage II (05/29/25), pt refused skin assessment today per admissions nurse Edema: BUE +1, RLE +2, LLE nonpitting Other Factors: 03/31/25: s/p DDRT 04/28/25: ischemic stroke COVID + Nutrition Data/Clinical Indicators of Nutrition Status: Height: 185.4 cm (6' 0.99 ) Weight: 77.6 kg (171 lb 1.2 oz) BMI (Calculated): 22.58 Weight History: 09/21/24: 85.8 kg Pretransplant evaluation 04/02/25: 87.1 kg post transplant 05/30/25: 77.1 kg IP admission IBW: 78.2 kg Weight change: 11% TBW x 3 months post transplant-present Severity of weight change: severe Nutrition Assessment: Pt has been at [facility] since 06/15/25. He c/o food & water tastes like sewage . Sister brought in flavored bottled water. Regular diet. Boost with meals but he reports he only receives it once per day. States he would drink it more often otherwise. Does not keep snacks in his room & reports the staff does not offer anything between meals B- won't eat the eggs , oatmeal if I can get it L-50% D-50% Dietary Orders (From admission, onward) Start Ordered 07/14/25 1156 Dietary nutrition supplements All meals; Boost Glucose Control; Chocolate; 8 oz; OralUntil discontinued Question Answer Comment Deliver with All meals Select supplement: Boost Glucose Control Flavor: Chocolate Strength: 8 oz Route Oral 07/14/25 1156 07/13/252050 Regular Diet 2g/Low Potassium; Fish Allergy Diet effective now Question Answer Comment Room Service? Yes Potassium restriction: 2g/Low Potassium Other restriction(s): Fish Allergy 07/13/252049 Meal Intakes: no recorded intakes Nutrition Risk: High Nutrition Needs: Needs based on: actual body weight (77.6 kg) Calorie needs: 6826-6216 kcals/day based on 25-30 kcal/kg Protein needs: 77-93 g/day based on 1-1.2 g/kg Fluid needs: 2328 ml/day based on 30 ml/kg Nutrition Diagnosis: Severe PCM related to chronic illness as evidenced by wt loss >7.5% in 3 months & intakes <75% estimated needs >1 month continues, first diagnosed 05/30/25 Malnutrition Assessment: Assessment Reason for Referral: MD Referral Nutrition information obtained from:: Patient, Medical Record, Nursing, Transfer Record Clinical Indicators of Malnutrition: wound healing needs, reduced energy intake, poor appetite, unintentional weight loss Malnutrition Assessment (Completed by RD) Severe PCM: Chronic Illness: >7.5% involuntary weight loss in 3 months, decreased energy intake (<75% > 1 month) Nutrition Intake Percent Meals Eaten (%): 0 Nutrition Treatment and Intervention Plan Treatment & Intervention Plan: other (comment) (ONS TID, consider appetite stimulant) Nutrition Goals: intake > 75% meals, intake > 75% supplements, maitain visceral protein, wound healing Treatment Plan: Regular diet Tray set up as needed ONS chocolate preferred Consider appetite stimulant To reach the Clinical Dietitian, please utilize [facility] chat Wednesday-Wednesday from 8AM-4PM or call extension [phone]. For weekends (Wednesday-Wednesday) and holidays, the Clinical Dietitian can be reached via pager [phone]) from 9AM-3PM. The Clinical Nutrition Department is unable to respond to [facility] chat messages on Sundays and hols. [1] Past Medical History: Diagnosis Date Anemia in chronic kidney disease (CKD) CKD (chronic kidney disease) stage 5, GFR less than 15 ml/min ([facility]) Diverticular disease s/p colectomy 2015 Gout History of DVT (deep vein thrombosis) proximal vein left leg (from distal calf to groin, 07/2021, was to be on lifelong warfarin but stopped after 05/2022 GI bleed) Hypertensive disorder Lung nodule seen on imaging study NSAID long-term use h/o Proteinuria Recurrent sinusitis Recurrent sinusitis Renal cyst, left Secondary hyperparathyroidism of renal origin Stroke ([facility]) Vitamin D deficiency [2] Allergies Allergen Reactions Shellfish Derived Nausea And Vomiting Vomiting Amlodipine Swelling Leg edema Fish Containing Products Unknown documented in this encounter Consult Notes * Paul Coates MD - 07/17/2025 8:38 AM ESTAssociated Order(s): IP CONSULT TO PHYSICAL MEDICINE REHAB Physical Medicine and Rehabilitation Consult Note Patient Identification Christal Suh is a 69 y.o. male. : 1955 Admit Date: 07/13/2025 Attending Provider: Jayjay Robin MD Primary Care Physician: Abebe Stewart MD Admitting Diagnosis: S/P kidney transplant [Z94.0] Assessment/Plan Patient has deficits in activities of daily living, gait, mobility and strength secondary to the following diagnoses: Principal Problem: S/P kidney transplant Patient's medical chart and hospital course thus far have been reviewed, and the following conditions would directly affect the rehabilitation plan and would therefore need to monitored during the rehab process should the patient meet criteria for admission to [facility]: Assessment: Failure to thrive, in the setting of + COVID test, airborne precautions, infectious disease following, no indications for therapy at this time Recent C. difficile colitis, plans for p.o. vancomycin until 07/18, infectious disease following History of recent renal transplant, urology and nephrology following, noted immunosuppression some of which are on hold due to recent infection History of left-sided CVA, noted Plan of Care: Patient would be under the diagnosis of debility. He was previously at a rehab setting where he states he was doing well, stating he was ambulating and making progress prior to his recent functional decline. We discussed potential rehab options, and he states he would like to return to the [facility] setting and given his current COVID status (many acute rehab facilities have limitations on accepting COVID + patients), as well as the fact that he is making progress at this institution previously, I think this is an appropriate disposition plan. Will sign off. Subjective Reason for Consultation: Possible inpatient rehabilitation admission- referral required for evaluating candidacy and appropriateness for an aggressive inpatient rehab program Chief Complaint: Weakness History of present illness: Patient states he was making progress but then developed an acute overall decline and failure to thrive . He has a history of end-stage renal disease with previous renal transplant on immunosuppressive therapy, there was a positive COVID test on his admission, and he has a history of C. difficile with plans to treat through 07/18 with p.o. vancomycin. Infectious disease urology and nephrology are following the patient. Overall he has been doing better, he denies currently any respiratory symptoms including cough shortness of breath fevers or chills. He states he is functionally declining from being in bed, and would like to return to his residential facility. Pertinent imaging: XR chest 1 view [[id number]] Collected: 07/15/25 1347 Order Status: Completed Updated: 07/15/25 1349 Narrative: XR CHEST 1 VIEW 07/15/2025 1:23 PM CLINICAL INDICATIONS: Dyspnea. COMPARISON: 04/09/2025 FINDINGS: Heart size normal. Lungs are hyperinflated with congested lungs and effusions right more than left. Impression: Features of congestive heart failure. Recent Physical and Occupational Therapy Assessments: Mod assist x 2 for transfers Previous Level of Function: States he was ambulating with a rolling walker prior to admission Home Set-up and Support System: He was at [facility] and he would like toreturn there Current Medications[1] Allergies[2] Surgical History[3] Medical History[4] Social History Socioeconomic History Marital status: Significant Other Spouse name: Not on file Number of children: Not on file Years of education: Not on file Highest education level: Not on file Occupational History Not on file Tobacco Use Smoking status: Former Types: Cigarettes Start date: 1999 Quit date: 1975 Years since quittin.9 Passive exposure: Past Smokeless tobacco: Never Vaping Use Vaping status: Never Used Substance and Sexual Activity Alcohol use: Yes Comment: rare Drug use: Never Sexual activity: Defer Other Topics Concern Not on file Social History Narrative Not on file Social Drivers of Health Financial Resource Strain: Low Risk (07/13/2025) Overall Financial Resource Strain (CARDIA) Difficulty of Paying Living Expenses: Not hard at all Food Insecurity: No Food Insecurity (07/13/2025) Hunger Vital Sign Worried About Running Out of Food in the Last Year: Never true Ran Out of Food in the Last Year: Never true Transportation Needs: No Transportation Needs (07/13/2025) Transportation Lack of Transportation (Medical): No Lack of Transportation (Non-Medical): No Physical Activity: Not on file Stress: No Stress Concern Present (04/05/2025) [employer] - Occupational Stress Questionnaire Feeling of Stress : Only a little Social Connections: Socially Isolated (04/05/2025) Social Connection and Isolation Panel Frequency of Communication with Friends and Family: More than three times a week Frequency of Social Gatherings with Friends and Family: More than three times a week Attends Holiness Services: Never Active Member of Clubs or Organizations: No Attends Club or Organization Meetings: Never Marital Status: Intimate Partner Violence: Unknown (07/13/2025) Humiliation, Afraid, Rape, and Kick questionnaire Fear of Current or Ex-Partner: No Emotionally Abused: Not on file Physically Abused: Not on file Sexually Abused: Not on file Housing Stability: Low Risk (07/13/2025) Housing Stability Vital Sign Unable to Pay for Housing in the Last Year: No Number of Times Moved in the Last Year: 0 Homeless in the Last Year: No Family History[5] Beyond the above, the family history was not pertinent to the current problem. Review of Systems: Denies fevers chills cough or shortness of breath. All other review of systems are negative or per HPI. Objective Physical Exam: BP 140/75 Pulse 82 Temp 36.7 ??C (98.1 ??F) (Temporal) Resp 18 Ht 1.854 m (6' 0.99 ) Wt 75.3 kg (166 lb 0.1 oz) SpO2 95% BMI 21.91 kg/m?? General: No acute distress HEENT: Normocephalic nontraumatic Heart / Cardiovascular: Normal pulse, limbs warm Lungs / Pulmonary: No cough or distress noted Abdomen: Nondistended Extremities: No edema no calf tenderness MSK: 4-5 out of 5 throughout, symmetrical Neurological: Alert and orient x 3, answered all questions appropriately and follows all commands Skin: No obvious lesions Mood / Affect: Normal, perseverated on the food quality at the residential facility Laboratory Data: Hematology: Results from last 7 days Lab Units 07/17/25 0501 07/16/25 0508 WBC AUTO 10*3/uL 13.62* 10.35 HEMOGLOBIN g/dL 8.6* 8.6* HEMATOCRIT % 25.1* 25.8* MCV fL 99.2* 99.6* PLATELETS AUTO 10*3/uL 181 181 Chemistry: Results from last 7 days Lab Units 07/17/25 0501 07/16/25 0508 07/15/25 0327 SODIUM mmol/L 141 139 139 POTASSIUM mmol/L 3.9 3.8 4.1 CHLORIDE mmol/L 108* 106 108* CO2 mmol/L 25 22 24 BUN mg/dL 41* 29* 23 CREATININE mg/dL 1.63* 1.55* 1.30 GLUCOSE mg/dL 135* 175* 94 MAGNESIUM mg/dL 2.1 1.7* 2.0 CALCIUM mg/dL 8.4* 8.5* 8.5* PHOSPHORUS mg/dL 2.5 4.0 3.0 Results from last 7 days Lab Units 07/17/25 0501 07/16/25 0508 07/15/25 0327 AST U/L 13 18 38 ALT U/L 17 22 27 ALK PHOS U/L 115* 142* 207* BILIRUBIN TOTAL mg/dL 0.4 0.6 0.5 * NOTE: All past medical history, social history, family history and lab values and imaging mentioned above were reviewed by the note chief writer. Additionally, a history was obtained from the patient / family whenever possible, but a summary of the hospital course prior to this consultation was obtained from a review of the medical records and chart review. This note was completed using a voice clip loading machine adjuster system. Every effort was made to ensure accuracy; however, inadvertent computerized clip loading machine adjuster errors may be present, please contact if any information is unclear. 07/17/25 [1] Current Facility-Administered Medications: albuterol 90 mcg/actuation inhaler 2 puff, 2 puff, inhalation, q6h PRN, Kirk Talley MD, 2 puff at 07/15/25 1327 [Held by provider] azaTHIOprine (Imuran) split tablet 75 mg, 75 mg, oral, Daily, Angelito Gasca MD carvedilol (Coreg) tablet 25 mg, 25 mg, oral, BID with meals, Angelito Gasca MD, 25 mg at 07/17/25 0800 famotidine (Pepcid) tablet 20 mg, 20 mg, oral, Nightly, Angelito Gasca MD, 20 mg at 104 finasteride (Proscar) tablet 5 mg, 5 mg, oral, Daily, Angelito Gasca MD, 5 mg at 07/16/251006 hydrALAZINE (Apresoline) tablet 100 mg, 100 mg, oral, TID, Angelito Gasca MD, 100 mg at 07/16/252103 megestrol (Megace) suspension 800 mg, 800 mg, oral, Daily, Clare Alvarado MD, 800 mg at 07/16/25 100 melatonin tablet 5 mg, 5 mg, oral, Nightly PRN, Angelito Gasca MD NIFEdipine XL (Procardia XL) 24 hr tablet 30 mg, 30 mg, oral, Daily, Angelito Gasca MD, 30 mg at 07/16/251006 nystatin (Mycostatin) 100,000 unit/mL suspension 500,000 Units, 5 mL, Swish & Swallow, 4x daily, Grazyna Briseno CNP, 500,000 Units at 07/16/252103 ondansetron ODT (Zofran-ODT) disintegrating tablet 4 mg, 4 mg, oral, q8h PRN OR ondansetron HCl(PF) (Zofran) injection 4 mg, 4 mg, intravenous, q6h PRN, Angelito Gasca MD Oxygen Therapy, , inhalation, Continuous, Angelito Gasca MD, Oxygen Off at 07/13/252014 pantoprazole (ProtoNix) EC tablet 40 mg, 40 mg, oral, Daily before breakfast, Angelito Gasca MD, 40 mg at 07/17/25 0730 predniSONE (Deltasone) tablet 10 mg, 10 mg, oral, Daily, Angelito Gasca MD, 10 mg at 07/16/25 1008 Insert peripheral IV, , , Once AND Saline lock IV, , , Once AND sodium chloride flush 10 mL, 10 mL, intravenous, q8h PRN, Angelito Gasca MD sulfamethoxazole-trimethoprim (Bactrim DS) 800-160 mg per tablet 160 mg, 160 mg of trimethoprim, oral, Once per day on Wednesday, Grazyna Briseno CNP, 160 mg at 07/16/25 1631 tacrolimus ER (Envarsus XR) tablet ER 4 mg, 4 mg, oral, Daily, Angelito Gasca MD, 4 mg at 07/16/25 1008 tamsulosin (Flomax) 24 hr capsule 0.8 mg, 0.8 mg, oral, Daily, Angelito Gasca MD, 0.8 mg at 07/16/25 1008 valGANciclovir (Valcyte) tablet 450 mg, 450 mg, oral, Daily, Grazyna Briseno CNP, 450 mg at 07/16/25 1009 vancomycin (Vancocin) capsule 125 mg, 125 mg, oral, 4x daily, Angelito Gasca MD, 125 mg at 07/16/252105 [2] Allergies Allergen Reactions Shellfish Derived Nausea And Vomiting Vomiting Amlodipine Swelling Leg edema Fish Containing Products Unknown [3] Past Surgical History: Procedure Laterality Date COLECTOMY [...] 40 cm SPLENECTOMY, TOTAL TRANSPLANT, KIDNEY, OPEN [4] Past Medical History: Diagnosis Date Anemia in chronic kidney disease (CKD) CKD (chronic kidney disease) stage 5, GFR less than 15 ml/min ([facility]) Diverticular disease s/p colectomy 2015 Gout History of DVT (deep vein thrombosis) proximal vein left leg (from distal calf to groin, 07/2021, was to be on lifelong warfarin but stopped after 05/2022 GI bleed) Hypertensive disorder Lung nodule seen on imaging study NSAID long-term use h/o Proteinuria Recurrent sinusitis Recurrent sinusitis Renal cyst, left Secondary hyperparathyroidism of renal origin Stroke ([facility]) Vitamin D deficiency [5] Family History Problem Relation Name Age of Onset Heart disease Father Had pacemaker * Anthony Stern MD - 07/14/2025 10:50 AM EST Images from the original note were not included. Nephrology Consult Note Patient : Christal Suh; 69 y.o. Location: [facility]/3170-01 Attending: Jayjay Robin MD Admit Date: 07/13/2025 Hospital Day: 1 Reason for Consult: Medical management in transplant patient. History of Present Illness: Christal Suh is a 69 y.o. 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 He is Covid-19 positive and positive for C Diff. Patient has not been eating or drinking well. Notably, he was recently admitted to [facility] for a pseudomonas UTI from 05/29 to 06/15. Patient was evaluated at bedside. Patient is angry and intermittently cooperative with exam. After prolonged discussion, patient is frustrated with the number of people that keep coming into his rooms and he does not like that there are different doctors from various services asking him the same qu estions. His kidney function actually looks to be improving w/ creatinine of 1.19 today and stableelectrolytes. Subjective Review of Systems: Review of Systems Constitutional: Positive for fatigue. Respiratory: Negative for shortness of breath. Cardiovascular: Negative for chest pain, palpitations and leg swelling. Gastrointestinal: Negative for abdominal pain, constipation, diarrhea and vomiting. Genitourinary: Negative for dysuria and hematuria. Musculoskeletal: Negative for arthralgias and myalgias. Neurological: Negative for dizziness and headaches. Psychiatric/Behavioral: Negative for agitation and confusion. Objective Input/Output: I/O last 3 completed shifts: In: 619 (8 mL/kg) [P.O.:240; IV Piggyback:379] Out: - (0 mL/kg) Weight: 77.6 kg Vital Signs: Temperature: Temp: 36.4 ??C (97.5 ??F) TMax: Temp (24hrs), Av.6 ??C (97.9 ??F), Min:36.4 ??C (97.5 ??F), Max:36.9 ??C (98.4 ??F) Respirations: Resp: 22 Pulse: Heart Rate: 79 BP: BP: 121/80 BP Range: Systolic (24hrs), Av , Min:109 , Max:121 Diastolic (24hrs), Av, Min:65, Max:80 Wt Readings from Last 3 Encounters: 07/14/25 77.6 kg (171 lb 1.2 oz) 06/15/25 79 kg (174 lb 2.6 oz) 05/29/25 78.3 kg (172 lb 9.6 oz) Labs: Chemistry: Lab Results Component Value Date NA 139 07/14/2025 K 4.4 07/14/2025 CL 109 (H) 07/14/2025 CO2 21 07/14/2025 ANIONGAP 13 07/14/2025 BUN 21 07/14/2025 CREATININE 1.19 07/14/2025 EGFR 65.7 07/14/2025 CALCIUM 7.7 (L) 07/14/2025 MG 1.7 (L) 07/14/2025 PHOS 3.4 07/14/2025 PTH 190 (H) 04/16/2025 VITD25 23.3 (L) 04/16/2025 ALBUMIN 3.1 (L) 07/14/2025 PROT 4.7 (L) 07/14/2025 AST 10 (L) 07/14/2025 ALT 9 07/14/2025 BILITOT 0.3 07/14/2025 BILIDIR 0.1 05/29/2025 ALKPHOS 70 07/14/2025 Hematology & Iron studies: Lab Results Component Value Date WBC 10.57 07/14/2025 HGB 7.8 (L) 07/14/2025 HCT 23.5 (L) 07/14/2025 MCV 102.6 (H) 07/14/2025 PLT 162 07/14/2025 IRON 63 04/09/2025 TIBC 123 (L) 04/09/2025 UIBC 60.0 (L) 04/09/2025 IRONSAT 51 (H) 04/09/2025 FERRITIN 207.0 04/01/2025 Urine chemistry: Lab Results Component Value Date PROTUR 30 (A) 06/12/2025 PROTUR 174.9 05/29/2025 CREATUR 95.0 05/29/2025 Urinalysis & Microscopy: Lab Results Component Value Date COLORU Light-Yellow 06/12/2025 CLARITYU Clear 06/12/2025 SPECGRAVU 1.015 06/12/2025 BENNETT 6.0 06/12/2025 PROTUR 30 (A) 06/12/2025 PROTUR 174.9 05/29/2025 LEUKOCYTESU Negative 06/12/2025 NITRITEU Negative 06/12/2025 GLUCOSEU Normal 06/12/2025 KETONESU Negative 06/12/2025 UROBILINOGEN Normal 06/12/2025 BLOODU Small (A) 06/12/2025 RBCU 6-10 (A) 06/12/2025 WBCU 0-2 06/12/2025 SQUAMEPIU None Seen 06/12/2025 MUCUSU Occasional 05/16/2025 Urine Eosinophils: No components found for: UEOS Serology & Other labs: BNP: No results found for: BNP JOSELO: No results found for: JOSELO SPEP: Lab Results Component Value Date PROT 4.7 (L) 07/14/2025 UPEP: No components found for: LABPE C3: No results found for: C3 C4: No results found for: C4 MPO ANCA: No components found for: MPO PR3 ANCA: No components found for: PR3 Anti-GBM: No components found for: GBMABIGG Hep BsAg: No results found for: HEPBSAG Hep C AB: No results found for: HEPCAB Outpatient Medications & Allergies: Medication Documentation Review Audit Reviewed by Adrienne Brown RN (Registered Nurse) on 07/13/25 at 2139 Medication Order Taking? Sig Documenting Provider Last Dose Status acetaminophen (Tylenol) 325 mg tablet [id number] Take 650 mg by mouth every 6 (six) hours if needed for mild pain (1-3 pain score) or fever greater than or equal to 38 degrees Celsius. Historical ProviderMD Active azaTHIOprine (Imuran) 75 mg tablet [id number] No Take 1 tablet (75 mg) by mouth in the morning for 96doses. Patient not taking: Reported on 07/13/2025 Grazyna Briseno CNP Not Taking Active calcium carbonate (Tums) 200 mg calcium (500 mg) chewable tablet [id number] Chew 3 tablets (1,500 mg)two times daily. Without food Patient taking differently: Chew 2 tablets two times daily. Without food Jayjay Robin MD Active calcium carbonate-vitamin D3 500 mg-5 mcg (200 unit) tablet [id number] Take 2 tablets by mouth two times daily. Patient taking differently: Take 1 tablet by mouth at bedtime. Grazyna Briseno CNP Active carvedilol (Coreg) 25 mg tablet [id number] 25 mg with breakfast and with evening meal. Historical ProviderMD Active cephalexin (Keflex) 500 mg capsule [id number] Take 500 mg by mouth four times daily. FOR INFECTION FOR 10 DAYS(07/13 - 07/23) Historical ProviderMD Active docusate sodium (Colace) 100 mg capsule [id number] Take 100 mg by mouth two times daily. Historical ProviderMD Active famotidine (Pepcid) 20 mg tablet [id number] Take 1 tablet (20 mg) by mouth at bedtime. Jayjay Robin MD Active finasteride (Proscar) 5 mg tablet [id number] Take 1 tablet (5 mg) by mouth in the morning. Do not crush, chew, or split. Jayjay Robin MD Active folic acid (Folvite) 1 mg tablet [id number] Take 1 tablet (1 mg) by mouth in the morning for 94 doses. Grazyna Briseno CNP Active guaiFENesin (Mucinex) 600 mg 12 hr tablet [id number] Take 1,200 mg by mouth two times daily. Do not crush, chew, or split. Historical ProviderMD Active hydrALAZINE (Apresoline) 100 mg tablet [id number] Take 1 tablet (100 mg) by mouth three times daily. Wendy Lomeli MD Active ipratropium-albuteroL (Duo-Neb) 0.5-2.5 mg/3 mL nebulizer solution [id number] Take 3 mL by nebulization every 6 (six) hours if needed for wheezing or shortness of breath. Cristal Vazquez MD Active magnesium glycinate 100 mg magnesium capsule [id number] Take 3 capsules (300 mg) by mouth three timesdaily. Jayjay Robin MD Active NIFEdipine XL (Procardia XL) 30 mg 24 hr tablet [id number] Take 1 tablet (30 mg) by mouth in the morning. Do not crush, chew, or split. Jayjay Robin MD Active nystatin (Mycostatin) 100,000 unit/mL suspension [id number] Take 5 mL (500,000 Units) by mouth four times daily. Swish and swallow Wendy Lomeli MD Active ondansetron (Zofran) 4 mg tablet [id number] Take 4 mg by mouth every 4 (four) hours if needed for nausea or vomiting. Historical ProviderMD Active pantoprazole (ProtoNix) 40 mg EC tablet [id number] Take 1 tablet (40 mg) by mouth before breakfast. Do not crush, chew, or split. Delano Klein MD Active predniSONE (Deltasone) 10 mg tablet [id number] Take 1 tablet (10 mg) by mouth in the morning. Jayjay Robin MD Active sod phos di, mono-K phos mono (K Phos Neutral) tablet [id number] Take 1 tablet by mouth two times daily. Jayjay Robin MD Active sulfamethoxazole-trimethoprim (Bactrim DS) 800-160 mg tablet [id number] Take 1 tablet by mouth 3 (three) times a week. On Wednesday, Wednesday, and Wednesday Wendy Lomeli MD Active tacrolimus ER (Envarsus XR) 4 mg tablet ER [id number] Take 1 tablet (4 mg) by mouth in the morning. Script total 8.5 mg daily Patient taking differently: Take 4 mg by mouth in the morning. 4 mg daily Wendy Lomeli MD Active tamsulosin (Flomax) 0.4 mg 24 hr capsule [id number] Take 2 capsules (0.8 mg) by mouth in the morning.Jayjay Robin MD Active valGANciclovir (Valcyte) 450 mg tablet [id number] Take 1 tablet (450 mg) by mouth in the morning. As directed. Wendy Lomeli MD Active vancomycin (Vancocin) 125 mg capsule [id number] Take 125 mg by mouth 2 times daily. Historical Provider, Active Allergies[1] Current Inpatient Medications: Scheduled Meds: albumin human, 100 g, intravenous, TID [Held by provider] azaTHIOprine, 75 mg, oral, Daily carvedilol, 25 mg, oral, BID with meals famotidine, 20 mg, oral, Nightly finasteride, 5 mg, oral, Daily hydrALAZINE, 100 mg, oral, TID NIFEdipine XL, 30 mg, oral, Daily Oxygen Therapy, , inhalation, Continuous pantoprazole, 40 mg, oral, Daily before breakfast predniSONE, 10 mg, oral, Daily tacrolimus ER, 4 mg, oral, Daily tamsulosin, 0.8 mg, oral, Daily valGANciclovir, 450 mg, oral, Daily vancomycin, 125 mg, oral, 4x daily Continuous Infusions: PRN Meds: PRN medications: melatonin, ondansetron ODT OR ondansetron, Insert peripheral IV AND [place] IV AND sodium chloride Past Medical/Surgical/Social/Family History: Medical History[2] Surgical History[3] Social History Socioeconomic History Marital status: Significant Other Spouse name: Not on file Number of children: Not on file Years of education: Not on file Highest education level: Not on file Occupational History Not on file Tobacco Use Smoking status: Former Types: Cigarettes Start date: 1999 Quit date: 1974 Years since quittin.9 Passive exposure: Past Smokeless tobacco: Never Vaping Use Vaping status: Never Used Substance and Sexual Activity Alcohol use: Yes Comment: rare Drug use: Never Sexual activity: Defer Other Topics Concern Not on file Social History Narrative Not on file Social Drivers of Health Financial Resource Strain: Low Risk (07/13/2025) Overall Financial Resource Strain (CARDIA) Difficulty of Paying Living Expenses: Not hard at all Food Insecurity: No Food Insecurity (07/13/2025) Hunger Vital Sign Worried About Running Out of Food in the Last Year: Never true Ran Out of Food in the Last Year: Never true Transportation Needs: No Transportation Needs (07/13/2025) Transportation Lack of Transportation (Medical): No Lack of Transportation (Non-Medical): No Physical Activity: Not on file Stress: No Stress Concern Present (04/05/2025) [employer] - Occupational Stress Questionnaire Feeling of Stress : Only a little Social Connections: Socially Isolated (04/05/2025) Social Connection and Isolation Panel Frequency of Communication with Friends and Family: More than three times a week Frequency of Social Gatherings with Friends and Family: More than three times a week Attends Holiness Services: Never Active Member of Clubs or Organizations: No Attends Club or Organization Meetings: Never Marital Status: Intimate Partner Violence: Unknown (07/13/2025) Humiliation, Afraid, Rape, and Kick questionnaire Fear of Current or Ex-Partner: No Emotionally Abused: Not on file Physically Abused: Not on file Sexually Abused: Not on file Housing Stability: Low Risk (07/13/2025) Housing Stability Vital Sign Unable to Pay for Housing in the Last Year: No Number of Times Moved in the Last Year: 0 Homeless in the Last Year: No Family History[4] Radiology: === 04/05/25 === XR CHEST 1 VIEW - Impression - Cardiomegaly with mild pulmonary vascular congestion. Electronically signed: Jean Chopra. === 05/29/25 === US KIDNEY TRANSPLANT W DOPPLER - Impression - * Right lower quadrant renal transplant measuring 12.1 x 5.4 x 6.1 cm. * There is a peritransplant fluid collection measuring 7.1 x 5.1 x 11.9 cm. * Very mild collecting system prominence. Cannot exclude minimal echogenic debris in the renal pelvis. RI-0.68 RI-0.69 RI-0.61 RENAL ART: PS-116.0cm/s ED-19.5cm/s RI-0.83 RENAL VEIN: ARMAND=20.5cm/s Electronically signed: Shekhar Samuels MD. === 05/29/25 === CT GUIDED ABSCESS FLUID COLLECTION DRAINAGE - Impression - Successful CT-guided placement of 8.5 pigtail drainage catheter for right lower quadrant perirenal transplant fluid collection. Fluid aspirate demonstrates clear yellow/pink-tinged fluid which was submitted for laboratory analysis. Electronically signed: Beth Rios. Physical Examination: Physical Exam Constitutional: General: He is not in acute distress. Appearance: Normal appearance. He is not ill-appearing. HENT: Head: Normocephalic and atraumatic. Cardiovascular: Rate and Rhythm: Normal rate and regular rhythm. Pulmonary: Effort: Pulmonary effort is normal. No respiratory distress. Breath sounds: Normal breath sounds. Musculoskeletal: General: No swelling. Right lower leg: Edema present. Left lower leg: Edema present. Comments: R>L edema Skin: General: Skin is warm and dry. Neurological: Mental Status: He is alert and oriented to person, place, and time. Motor: No weakness. Psychiatric: Mood and Affect: Mood normal. Behavior: Behavior normal. Comments: Angry Assessment: ESRD s/p DDRT (03/31/2025) on immunosuppressive therapy. Immunosuppression: tacrolimus 4 mg daily, mycophenolate 180 mg twice daily, prednisone 10 mg daily. Covid pneumonia Clostridium difficile infection on Vancomycin Hypomagnesemia Magnesium 1.7 today. Plan: Okay to hold Imuran for now given active infection. Continue prednisone and tacrolimus 4 mg daily and adjust based on morning levels. Patient is fairly stable and very frustrated that he is here. Will likely be okay for discharge andfollow up in the outpatient clinic. Monitor I/Os, trend creatinine Monitor electrolytes, replete as needed Avoid nephrotoxic agents Thank you for the consultation. Please do not hesitate to contact us for any questions/concerns. Mónica continue to follow along with you. Anthony Stern MD, PhD Internal Medicine Resident, PGY-3 [facility] [1] Allergies Allergen Reactions Shellfish Derived Nausea And Vomiting Vomiting Amlodipine Swelling Leg edema Fish Containing Products Unknown [2] Past Medical History: Diagnosis Date Anemia in chronic kidney disease (CKD) CKD (chronic kidney disease) stage 5, GFR less than 15 ml/min ([facility]) Diverticular disease s/p colectomy 2015 Gout History of DVT (deep vein thrombosis) proximal vein left leg (from distal calf to groin, 07/2021, was to be on lifelong warfarin but stopped after 05/2022 GI bleed) Hypertensive disorder Lung nodule seen on imaging study NSAID long-term use h/o Proteinuria Recurrent sinusitis Recurrent sinusitis Renal cyst, left Secondary hyperparathyroidism of renal origin Stroke ([facility]) Vitamin D deficiency [3] Past Surgical History: Procedure Laterality Date COLECTOMY [...] 40 cm SPLENECTOMY, TOTAL TRANSPLANT, KIDNEY, OPEN [4] Family History Problem Relation Name Age of Onset Heart disease Father Had pacemaker Cosigned by Dulce Hernandez MD at 07/15/2025 8:15 PM EST Associated attestation - Dulce Hernandez MD - 07/15/2025 8:15 PM EST I personally saw this patient on the day of the encounter with the fellow/resident, and performed the vogt portion(s) of the service and participated in the management and confirm the resident's documentation. Please note there may be an additional personal documentation from me. Plan discussed withprimary team during round. Dulce Hernandez MD Faculty, Division of Nephrology, Department of Medicine [facility]. * Brinda Menjivar MD - 07/14/2025 8:00 AM ESTAssociated Order(s): IP CONSULT TO INFECTIOUS DISEASES Images from the original note were not included. Infectious Diseases - Initial Consult Note - Patient name: Christal Suh Patient Today's Date and Time: 07/14/2025, 4:53 PM Admission Date: 07/13/2025 Impression: Hx of C.Diff Diarrhea Reported history of C.Diff diarrhea that the patient states has been on PO vancomycin for about 7 days now. We have contacted the facility several times to confirm the diagnosis and treatment of C.diff to no avail. We will continue PO vancomycin while inpatient. Bowel movements have improved with current regimen per patient. Reported Hx of COVID 19 Positive Test Reported history of COVID in the facility. We have contacted the facility several times to no avail. We will order a COVID test while inpatient and interim place under airborne precautions. Patient is asymptomatic from a COVID standpoint (if truly positive). No indications for remdesivir therapy. HX of DDRT EBV +/+ CMV -/+ Management of graft per transplant team. Can continue tacrolimus + prednisone Continue PTX with Valcyte therapy Recommendations: Recommend following ABX regimen: PO Vancomycin 125mg PO four times daily for total of 10 days. Patient reports having already completed 7 days. If confirmed that patient has been prescribed one week ago, then only 3 more days needed. No therapy indicated right now for reported COVID Continue Valcyte PTX Obtain COVID test Would keep patient in airborne precautions for potential recent COVID test Transplant regimen per primary: Tacrolimus 4mg daily + Prednisone 10mg daily Subjective Reason for consultation / Chief complaint: transplant - c.diff and covid. Referring Provider: Jayjay Robin History of Present Illness Christal Suh is a 69 y.o.-year-old male who was initially admitted on 07/13/2025. 69 yo M with PMHx significant for ESRD 2/2 HTN s/p DDRT in March 2025 on immunossupression admitted to [facility] for failure to thrive. ID consulted for reported hx of COVID and C.Diff In brief, the patient is presenting from [facility]. He was reportedly tested for Cdiff in setting of a diarrhea he has had for several months. The patient states he was given PO vancomycin for the past 7 days and was compliant with therapy. There is a report of him being positive for COVID19 that was obtained on a screening test in 07/08. The patient has only had mild cough and minimal sputum production to account for the need to screen for COVID. He reports no sick illness contacts. On admission, the patient was reported to have not been eating and drinking well. He is struggling with dehydration. Labs noted a fairly unremarkable BMP with exception of a Cr of 1.26 and Mag of 1.7. WBC on admission was mildly elevated at 12.69, Hgb of 9.2, Platelets of 186. CXR showed left basilar infiltrate. Past Medical History: Medical History[1] Past Surgical History: Surgical History[2] Medications: Scheduled: albumin human, 100 g, intravenous, TID [Held by provider] azaTHIOprine, 75 mg, oral, Daily carvedilol, 25 mg, oral, BID with meals famotidine, 20 mg, oral, Nightly finasteride, 5 mg, oral, Daily hydrALAZINE, 100 mg, oral, TID NIFEdipine XL, 30 mg, oral, Daily Oxygen Therapy, , inhalation, Continuous pantoprazole, 40 mg, oral, Daily before breakfast predniSONE, 10 mg, oral, Daily tacrolimus ER, 4 mg, oral, Daily tamsulosin, 0.8 mg, oral, Daily valGANciclovir, 450 mg, oral, Daily vancomycin, 125 mg, oral, 4x daily Infusions: Social History: Social History Socioeconomic History Marital status: Significant Other Spouse name: Not on file Number of children: Not on file Years of education: Not on file Highest education level: Not on file Occupational History Not on file Tobacco Use Smoking status: Former Types: Cigarettes Start date: 1999 Quit date: 1974 Years since quittin.9 Passive exposure: Past Smokeless tobacco: Never Vaping Use Vaping status: Never Used Substance and Sexual Activity Alcohol use: Yes Comment: rare Drug use: Never Sexual activity: Defer Other Topics Concern Not on file Social History Narrative Not on file Social Drivers of Health Financial Resource Strain: Low Risk (07/13/2025) Overall Financial Resource Strain (CARDIA) Difficulty of Paying Living Expenses: Not hard at all Food Insecurity: No Food Insecurity (07/13/2025) Hunger Vital Sign Worried About Running Out of Food in the Last Year: Never true Ran Out of Food in the Last Year: Never true Transportation Needs: No Transportation Needs (07/13/2025) Transportation Lack of Transportation (Medical): No Lack of Transportation (Non-Medical): No Physical Activity: Not on file Stress: No Stress Concern Present (04/05/2025) [employer] - Occupational Stress Questionnaire Feeling of Stress : Only a little Social Connections: Socially Isolated (04/05/2025) Social Connection and Isolation Panel Frequency of Communication with Friends and Family: More than three times a week Frequency of Social Gatherings with Friends and Family: More than three times a week Attends Holiness Services: Never Active Member of Clubs or Organizations: No Attends Club or Organization Meetings: Never Marital Status: Intimate Partner Violence: Unknown (07/13/2025) Humiliation, Afraid, Rape, and Kick questionnaire Fear of Current or Ex-Partner: No Emotionally Abused: Not on file Physically Abused: Not on file Sexually Abused: Not on file Housing Stability: Low Risk (07/13/2025) Housing Stability Vital Sign Unable to Pay for Housing in the Last Year: No Number of Times Moved in the Last Year: 0 Homeless in the Last Year: No Family History: Family History[3] Immunization History: Immunization History Administered Date(s) Administered Influenza, High Dose Seasonal, Preservative Free 04/06/2024 Influenza, High-dose Seasonal, Quadrivalent, Preservative Free 07/15/2023 Influenza, injectable, quadrivalent, preservative free 07/01/2018 Moderna 12 YR UP Vaccine BiValent Booster 10/03/2020, 10/31/2020 Moderna Covid-19 vaccine, 12&up 07/15/2023, 04/06/2024 Pfizer Covid-19 Vaccine, 12&up 10/07/2024 Pneumococcal Conjugate PCV 13 08/27/2015 Pneumococcal Conjugate PCV 20 07/15/2023 Pneumococcal Polysaccharide PPV23 09/19/2010 RSV, Adult, Bivalent 09/24/2023 Tdap 12/15/2024 Zoster, Recombinant 07/15/2023, 09/24/2023 Allergies: Allergies[4] Review of Systems: General: No fevers or chills. Eyes: No double vision or blurry vision. ENT: No sore throat or runny nose. Cardiovascular: No chest pain or palpitations. Lung: Mild cough and minimal sputum production Abdomen: No nausea, vomiting, or abdominal pain. Improving diarrhea. Now some formed stool. Genitourinary: No increased urinary frequency, or dysuria. Musculoskeletal: No muscle aches or pains. Hematologic: No bleeding or bruising. Neurologic: No headache, weakness, numbness, or tingling. Objective Physical Examination: BP 109/77 (BP Location: Right arm, Patient Position: Lying) Pulse 72 Temp 36.6 ??C (97.9 ??F) (Temporal) Resp 17 Ht 1.854 m (6' 0.99 ) Wt 77.6 kg (171 lb 1.2 oz) SpO2 96% BMI 22.58 kg/m?? Temperature Range: Temp: 36.6 ??C (97.9 ??F) Temp Av.6 ??C (97.9 ??F) Min: 36.4 ??C (97.5 ??F)Max: 36.9 ??C (98.4 ??F) General Appearance: Awake, alert, and in no apparent distress, nontoxic Eyes: Sclera anicteric; conjunctivae pink ENT: Oropharynx clear, without erythema, exudate, no thrush. Neck: Supple, without lymphadenopathy. Pulmonary/Chest: Clear to auscultation, without wheezes, rales, no rhonchi Cardiovascular: Regular rate and rhythm without murmurs Abdomen: soft, non-tender, nondistended, no palpable masses no organomegaly; normal bowel sounds. Scar present in RLQ abdomen. Extremities: No cyanosis, edema, no joint effusions. Neurologic: Alert and oriented x 3, nonfocal; strength and sensation grossly normal Skin: No rash no lesions. No pallor Labs: Results from last 7 days Lab Units 07/14/25 0337 07/13/25 2048 WBC AUTO 10*3/uL 10.57 12.69* HEMOGLOBIN g/dL 7.8* 9.2* HEMATOCRIT % 23.5* 28.2* MCV fL 102.6* 100.7* PLATELETS AUTO 10*3/uL 162 186 Results from last 7 days Lab Units 07/14/25 0337 07/13/25 2048 POTASSIUM mmol/L 4.4 4.6 CHLORIDE mmol/L 109* 109* CO2 mmol/L 21 24 BUN mg/dL 21 22 CREATININE mg/dL 1.19 1.26 CALCIUM mg/dL 7.7* 7.4* TOTAL PROTEIN g/dL 4.7* 4.6* BILIRUBIN TOTAL mg/dL 0.3 0.2* ALK PHOS U/L 70 100 ALT U/L 9 13 AST U/L 10* 14 No lab exists for component: PROCALCITON No lab exists for component: TURBIDITY , SPECIFICGRA , PHURINE , LEUKOCYTE , PROTEIN , BLOODHGB , RBCELLS , RENALEPITH Imaging Studies: I have reviewed myself the following imaging studies performed in the past 3 days: No X-ray results found for the past [address] results found for the past 3 days No MRI results found for the past 3 days Cultures: Lab Results Component Value Date BLOOD CULTURE No growth at 5 days 06/03/2025 BLOOD CULTURE No growth at 5 days 06/03/2025 URINE CULTURE No growth at 48 hours 06/12/2025 No results found for any visits on 07/13/25. Thank you for allowing us to participate in the care of this patient. Our consultation addresses complex antimicrobial therapy counseling and treatment Jonny Merino MD [facility] Please contact us via [employer] during business hours. If no response in 15 min, call / page through the spreader operator automatic I performed a history and physical examination of the patient, I independently reviewed the laboratory work and imaging as well as other studies mentioned in the above note; I have discussed the management with the ID team. I have reviewed the above note, I agree with the findings and plan of care with the following additions: The consult is for C. difficile and COVID in a renal transplant patient who had diarrhea over a week ago that the skilled nursing told him was C. difficile and which has resolved on oral vancomycin. He states that he has no recent history of fevers chills shortness of breath, has no current respiratory complaints including cough, and no current GI complaints but he was told by the skilled nursing that a COVID test done on July 08 was positive. He does not recall getting treatment for COVID - his pulse ox on room air is now 96% and his lung exam is within normal limits - he has a left basilar infiltrate on chest x-ray report on July 12 compared to a chest x-ray taken on July 02 -these are from an outside system and so not available for direct viewing and it is unclear why the chest x-rays were taken on July 02 July 12- the patient was very doubtful of his history of a COVID positive test from the skilled nursing and did ask to see the test results - history and physical is alsonot yet available in the chart from the admitting service, there are no outside records in the media tab, and we have been unable to get a hold of anyone in his nursing facility despite multiple attempts (with prolonged waiting times) so are unable to verify the positive COVID test or any additional information about infections that the patient may have. so at this time, would continue to monitorhim as an inpatient and obtain a COVID test and finish out treatment for C. Difficile -he is probably on at least day 7 out of 10 of vancomycin -we will follow with you with additional recommendations to follow Thank you for allowing us to participate in the care of this patient. Brinda Menjivar MD [place] [facility] Phone:[phone] This progress note was completed using a voice clip loading machine adjuster system. Every effort was made to ensure accuracy; however, inadvertent computerized clip loading machine adjuster errors may be present. In addition, our consultation addresses complex antimicrobial therapy counseling and treatment. In addition, Complex A ntimicrobial Therapy Counseling and Treatment was provided, including engaging in complex medical decision-making regarding antimicrobial stewardship, resistance patterns, and potential complicationsfrom comorbidities. [1] Past Medical History: Diagnosis Date Anemia in chronic kidney disease (CKD) CKD (chronic kidney disease) stage 5, GFR less than 15 ml/min ([facility]) Diverticular disease s/p colectomy 2015 Gout History of DVT (deep vein thrombosis) proximal vein left leg (from distal calf to groin, 07/2021, was to be on lifelong warfarin but stopped after 05/2022 GI bleed) Hypertensive disorder Lung nodule seen on imaging study NSAID long-term use h/o Proteinuria Recurrent sinusitis Recurrent sinusitis Renal cyst, left Secondary hyperparathyroidism of renal origin Stroke ([facility]) Vitamin D deficiency [2] Past Surgical History: [...] 40 cm SPLENECTOMY, TOTAL TRANSPLANT, KIDNEY, OPEN [3] Family History Problem Relation Name Age of Onset Heart disease Father Had pacemaker [4] Allergies Allergen Reactions Shellfish Derived Nausea And Vomiting Vomiting Amlodipine Swelling Leg edema Fish Containing Products Unknown documented in this encounter Nursing Notes * Ronaldo Vora RN - 07/16/2025 12:05 PM EST Patient Name: Christal Suh : 1955 Primary Care Physician: Abebe Stewart MD Admission Date: 07/13/2025 RAPID RESPONSE TEAM FOLLOW-UP NOTE SUBJECTIVE / OBJECTIVE: Follow-up for previous rapid response notification for 07/15 at 1308. ASSESSMENT / INTERVENTIONS: Recent Vital Signs: Vitals: 07/16/25 0840 07/16/25 1007 07/16/25 1136 07/16/25 1149 BP: 147/87 125/75 BP Location: Right arm Patient Position: Sitting Pulse: 80 Resp: 19 Temp: 36.6 ??C (97.9 ??F) TempSrc: Temporal SpO2: 97% 97% 100% Weight: Height: Latest Labs: Lab Results Component Value Date WBC 10.35 07/16/2025 WBC 11.67 (H) 07/15/2025 HGB 8.6 (L) 07/16/2025 HGB 8.0 (L) 07/15/2025 HCT 25.8 (L) 07/16/2025 HCT 23.9 (L) 07/15/2025 MCV 99.6 (H) 07/16/2025 MCV 100.8 (H) 07/15/2025 PLT 181 07/16/2025 PLT 168 07/15/2025 NEUTROABS 8.78 (H) 07/15/2025 NEUTROABS 12.99 (H) 05/29/2025 Lab Results Component Value Date GLUCOSE 175 (H) 07/16/2025 GLUCOSE 94 07/15/2025 CALCIUM 8.5 (L) 07/16/2025 CALCIUM 8.5 (L) 07/15/2025 NA 139 07/16/2025 NA 139 07/15/2025 K 3.8 07/16/2025 K 4.1 07/15/2025 CO2 22 07/16/2025 CO2 24 07/15/2025 CL 106 07/16/2025 CL 108 (H) 07/15/2025 BUN 29 (H) 07/16/2025 BUN 23 07/15/2025 CREATININE 1.55 (H) 07/16/2025 CREATININE 1.30 07/15/2025 EGFR 47.9 (L) 07/16/2025 EGFR 59.1 (L) 07/15/2025 BCR 18.7 07/16/2025 BCR 17.7 07/15/2025 Lab Results Component Value Date MG 1.7 (L) 07/16/2025 MG 2.0 07/15/2025 Lab Results Component Value Date PHOS 4.0 07/16/2025 PHOS 3.0 07/15/2025 Lab Results Component Value Date ALT 22 07/16/2025 ALT 27 07/15/2025 AST 18 07/16/2025 AST 38 07/15/2025 ALKPHOS 142 (H) 07/16/2025 ALKPHOS 207 (H) 07/15/2025 BILITOT 0.6 07/16/2025 BILITOT 0.5 07/15/2025 Lab Results Component Value Date INR 1.21 (H) 05/31/2025 INR 1.20 (H) 04/28/2025 Follow-up: Spoke with primary RN. Patient resting comfortably in bed. Vitals and labs are stable with magnesium replaced. No concerns at this time. Encouraged to reach out with any changes. Ronaldo Vora RN Rapid Response Team Nurse [phone] 07/16/2025 12:05 PM * Lb Jacob RN - 07/15/2025 10:09 PM EST Patient Name: Christal Suh : 1955 Primary Care Physician: Abebe Stewart MD Admission Date: 07/13/2025 RAPID RESPONSE TEAM FOLLOW-UP NOTE SUBJECTIVE / OBJECTIVE: Follow-up for previous Rapid Response notification for 07/15 at 1308. ASSESSMENT / INTERVENTIONS: Recent Vital Signs: Vitals: 07/15/25 1900 07/15/25 2000 07/15/25 2124 07/15/25 2200 BP: 118/75 120/76 114/76 BP Location: Right arm Patient Position: Lying Pulse: 75 69 73 75 Resp: 17 17 22 19 Temp: 36.5 ??C (97.7 ??F) TempSrc: Temporal SpO2: 99% 100% 98% 93% Weight: Height: Latest Labs: Lab Results Component Value Date WBC 11.67 (H) 07/15/2025 WBC 10.32 07/15/2025 HGB 8.0 (L) 07/15/2025 HGB 6.9 (L) 07/15/2025 HCT 23.9 (L) 07/15/2025 HCT 20.8 (L) 07/15/2025 MCV 100.8 (H) 07/15/2025 MCV 102.5 (H) 07/15/2025 PLT 168 07/15/2025 PLT 152 07/15/2025 NEUTROABS 8.78 (H) 07/15/2025 NEUTROABS 12.99 (H) 05/29/2025 Lab Results Component Value Date GLUCOSE 94 07/15/2025 GLUCOSE 148 (H) 07/14/2025 CALCIUM 8.5 (L) 07/15/2025 CALCIUM 7.7 (L) 07/14/2025 NA 139 07/15/2025 NA 139 07/14/2025 K 4.1 07/15/2025 K 4.4 07/14/2025 CO2 24 07/15/2025 CO2 21 07/14/2025 CL 108 (H) 07/15/2025 CL 109 (H) 07/14/2025 BUN 23 07/15/2025 BUN 21 07/14/2025 CREATININE 1.30 07/15/2025 CREATININE 1.19 07/14/2025 EGFR 59.1 (L) 07/15/2025 EGFR 65.7 07/14/2025 BCR 17.7 07/15/2025 BCR 17.6 07/14/2025 Lab Results Component Value Date MG 2.0 07/15/2025 MG 1.7 (L) 07/14/2025 Lab Results Component Value Date PHOS 3.0 07/15/2025 PHOS 3.4 07/14/2025 Lab Results Component Value Date ALT 27 07/15/2025 ALT 9 07/14/2025 AST 38 07/15/2025 AST 10 (L) 07/14/2025 ALKPHOS 207 (H) 07/15/2025 ALKPHOS 70 07/14/2025 BILITOT 0.5 07/15/2025 BILITOT 0.3 07/14/2025 Lab Results Component Value Date INR 1.21 (H) 05/31/2025 INR 1.20 (H) 04/28/2025 Follow-up: Patient seen resting in bed. Primary RN consulted for follow up. The patient's labs and vitals were stable. Patient was on bipap at time of follow up. At the time of writing this note, thepatient has been tolerating being off bypap since 2123. The primary RN voiced no concerns at time of follow up. The chief writer urged the primary RN to call the rapid team if any concerns arise overnight. Lb Jacob RN Rapid Response Team Nurse [phone] 07/15/2025 10:09 PM * Roosevelt Corral RN - 07/15/2025 4:00 PM EST Rapid Response Team called due to patient having SOB. Occupational Therapist Rehab Manager responded to patient call light and patient indicated he was having trouble getting a full breath. Patient was sat up in bed and Rapid response called. CXR was done bedside. Patient was given 2 puffs of Albuterol 90 mcg, 1 Ipratropium-Albuterol NEB treatment, 1 Albuterol NEB treatment, 125 mg Solu-Medrol, and 80 mg of Lasix. Patient wasput on BiPAP and transferred to negative pressure room, [facility]. Checked on patient @1600 and patient was able to recall rapid response event, alert and oriented x4, and has an output of 400 mL in the last 2 hours. Patient denies SOB and chest pain at this time. documented in this encounter Miscellaneous Notes * Significant Event - Jesusita Mancia RN - 07/24/2025 4:53 PM EST Readmission score is 40. OP RN CINTIA received complex care referral via [employer]. This chief writer reviewed thechart and pt does not meet criteria for Outpatient Specialty/Complex child care worker program dueto patients DCP is [facility]. * Care Plan - Estella Barry RN - 07/24/2025 1:55 PM EST The patient is Moderately Stable - Low risk of patient condition declining or worsening The patient's goals for the shift include comfort, rest The clinical goals for the shift include VSS, safety Over the shift, the patient did make progress toward the following goals. Problem: Pain - Adult Goal: Verbalizes/displays adequate comfort level or baseline comfort level Outcome: Progressing Problem: Safety - Adult Goal: Free from fall injury Outcome: Progressing Problem: Discharge Planning Goal: Discharge to home or other facility with appropriate resources Outcome: Progressing Problem: Chronic Conditions and Co-morbidities Goal: Patient's chronic conditions and co-morbidity symptoms are monitored and maintained or improved Outcome: Progressing Problem: Skin Integrity Goal: LTG_Show no additional skin breakdown Outcome: Progressing * Care Plan - Michel Parsons RN - 07/23/2025 8:48 PM EST The patient is Moderately Stable - Low risk of patient condition declining or worsening The patient's goals for the shift include comfort, rest The clinical goals for the shift include VSS, safety * Care Plan - Kellee Roberts RN - 07/23/2025 12:32 PM EST The patient is Moderately Stable - Low risk of patient condition declining or worsening The patient's goals for the shift include comfort The clinical goals for the shift include VSS, safety * Care Plan - Michel Parsons RN - 07/22/2025 8:49 PM EST The patient is Moderately Stable - Low risk of patient condition declining or worsening The patient's goals for the shift include comfort, rest The clinical goals for the shift include VSS, safety * Care Plan - Kellee Roberts RN - 07/22/2025 9:38 AM EST The patient is Moderately Stable - Low risk of patient condition declining or worsening The patient's goals for the shift include comfort The clinical goals for the shift include VSS, safety * Care Plan - Tri Bradford RN - 07/21/2025 8:38 AM EST The patient is Moderately Unstable - Medium risk of patient condition declining or worsening The patient's goals for the shift include Comfort, Rest The clinical goals for the shift include VSS, Safety Over the shift, the patient did not make progress toward the following goals. 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 Recommendations to address these barriersinclude will continue to educate patient. Patient may need to go to a facility before going home. Problem: Safety - Adult Goal: Free from fall injury Outcome: Not Progressing * Care Plan - Pepito Cabral RN - 07/20/2025 10:39 PM EST The patient is Moderately Stable - Low risk of patient condition declining or worsening The patient's goals for the shift include Comfort, Rest The clinical goals for the shift include VSS, Safety Over the shift, the patient did make progress toward the following goals. Problem: Pain - Adult Goal: Verbalizes/displays adequate comfort level or baseline comfort level Outcome: Progressing Problem: Safety - Adult Goal: Free from fall injury Outcome: Progressing Problem: Discharge Planning Goal: Discharge to home or other facility with appropriate resources Outcome: Progressing Problem: Chronic Conditions and Co-morbidities Goal: Patient's chronic conditions and co-morbidity symptoms are monitored and maintained or improved Outcome: Progressing Problem: Skin Integrity Goal: LTG_Show no additional skin breakdown Outcome: Progressing * Care Plan - Pepito Cabral RN - 07/19/2025 9:37 PM EST The patient is Moderately Stable - Low risk of patient condition declining or worsening The patient's goals for the shift include Comfort/Rest The clinical goals for the shift include Hemodynamical Stability Over the shift, the patient did not make progress toward the following goals. Problem: Pain - Adult Goal: Verbalizes/displays adequate comfort level or baseline comfort level Outcome: Progressing Problem: Safety - Adult Goal: Free from fall injury Outcome: Progressing Problem: Discharge Planning Goal: Discharge to home or other facility with appropriate resources Outcome: Progressing Problem: Chronic Conditions and Co-morbidities Goal: Patient's chronic conditions and co-morbidity symptoms are monitored and maintained or improved Outcome: Progressing Problem: Skin Integrity Goal: LTG_Show no additional skin breakdown Outcome: Progressing * Care Plan - Annalee Mark RN - 07/19/2025 2:10 PM EST Daily Case Management Update Multidisciplinary rounds have been completed. Barriers to Discharge: Patient is medically readying, awaiting precert to spring. Diet: Dietary Orders (From admission, onward) Start Ordered 07/19/25 1314 Special Kitchen Request Once Comments: Please send oatmeal with butter and brown sugar 07/19/25 1314 07/19/25 1213 Special Kitchen Request Once Comments: Please add bread stick to last tray. Thanks 07/19/25 1213 07/19/25 1207 Special Kitchen Request Once Comments: Please send canned peaches, ford yogurt, chicken noodle soup, macaroni and cheese, apple sauce, peas with butter, apple cinnamon muffin, apple juice 07/19/25 1212 07/18/25 1240 Special Kitchen Request Once Comments: Please send baked mac and cheese, peas, and a bread stick, 07/18/25 1240 07/16/25 1642 Special Kitchen Request Once Comments: Please send up 2 packets of ranch dressing. Thank you. 07/16/25 1642 07/15/25 1050 Special Kitchen Request Once Comments: Please send up an order of scrambled eggs, canned peaches, oatmeal with brown sugar on the side, and an orange juice. Thank you. 07/15/25 1051 07/14/25 1607 Special Kitchen Request Once Comments: Please send up an order of tomato soup, egg salad without the bread, and applesauce. Thank you. 07/14/25 1608 07/14/25 1156 Dietary nutrition supplements All meals; Boost Glucose Control; Chocolate; 8 oz; OralUntil discontinued Question Answer Comment Deliver with All meals Select supplement: Boost Glucose Control Flavor: Chocolate Strength: 8 oz Route Oral 07/14/25 1156 07/13/252050 Regular Diet 2g/Low Potassium; Fish Allergy Diet effective now Question Answer Comment Room Service? Yes Potassium restriction: 2g/Low Potassium Other restriction(s): Fish Allergy 07/13/252049 Physician Expected Discharge Date: 07/17/2025 Discharge Delays: Waiting on discharge facility authorization [108] PT Six Click Score: 15 OT Six Click Score: 17 PT Recommendations: Patient is able to return to prior living environment (Presents from SNF) OT Recommendations: Patient is able to return to prior living environment (Pt admitted from SNF) New Consults: Consult Orders (From admission, onward) Start Ordered 07/13/252006 Inpatient consult to Nephrology Once Specialty: Nephrology Provider: (Not yet assigned) Question Answer Comment Consulting Group NEPHROLOGY TEAM Reason for Consult? transplant Level of Consultation Consultation and Management 07/13/252010 Therapy Orders (From admission, onward) Start Ordered 07/15/25 1309 PT eval and treat Until therapy completed Question: Reason for PT? Answer: Failure to thrive, recent stroke 07/15/25 1308 07/15/25 1309 OT eval and treat Until therapy completed Question: Reason for OT? Answer: Failure to thrive, recent stroke 07/15/25 1308 * Care Plan - Jos Vázquez RN - 07/19/2025 9:06 AM EST The patient is Moderately Stable - Low risk of patient condition declining or worsening The patient's goals for the shift include comfort The clinical goals for the shift include hemodynamically stable Problem: Pain - Adult Goal: Verbalizes/displays adequate comfort level or baseline comfort level Outcome: Progressing Problem: Safety - Adult Goal: Free from fall injury Outcome: Progressing Problem: Discharge Planning Goal: Discharge to home or other facility with appropriate resources Outcome: Progressing Problem: Chronic Conditions and Co-morbidities Goal: Patient's chronic conditions and co-morbidity symptoms are monitored and maintained or improved Outcome: Progressing Problem: Skin Integrity Goal: LTG_Show no additional skin breakdown Outcome: Progressing * Care Plan - John Ochoa RN - 07/18/2025 8:47 PM EST The patient is Moderately Stable - Low risk of patient condition declining or worsening The patient's goals for the shift include rest The clinical goals for the shift include saftey Problem: Pain - Adult Goal: Verbalizes/displays adequate comfort level or baseline comfort level 07/18/20252046 by John Ochoa RN Outcome: Progressing 07/18/20252046 by John Ochoa RN Outcome: Progressing Problem: Skin Integrity Goal: LTG_Show no additional skin breakdown 07/18/20252046 by John Ochoa RN Outcome: Progressing 07/18/20252046 by John Ochoa RN Outcome: Progressing * Care Plan - Elba Blue RN - 07/18/2025 5:19 PM EST Daily Case Management Update Multidisciplinary rounds have been completed. Barriers to Discharge: Diet: Opal to submit precert today to return. Dietary Orders (From admission, onward) Start Ordered 07/18/25 1240 Special Kitchen Request Once Comments: Please send baked mac and cheese, peas, and a bread stick, 07/18/25 1240 07/16/25 164 Special Kitchen Request Once Comments: Please send up 2 packets of ranch dressing. Thank you. 07/16/25 1642 07/15/25 1050 Special Kitchen Request Once Comments: Please send up an order of scrambled eggs, canned peaches, oatmeal with brown sugar on the side, and an orange juice. Thank you. 07/15/25 1051 07/14/25 1607 Special Kitchen Request Once Comments: Please send up an order of tomato soup, egg salad without the bread, and applesauce. Thank you. 07/14/25 1608 07/14/25 1156 Dietary nutrition supplements All meals; Boost Glucose Control; Chocolate; 8 oz; OralUntil discontinued Question Answer Comment Deliver with All meals Select supplement: Boost Glucose Control Flavor: Chocolate Strength: 8 oz Route Oral 07/14/25 1156 07/13/252050 Regular Diet 2g/Low Potassium; Fish Allergy Diet effective now Question Answer Comment Room Service? Yes Potassium restriction: 2g/Low Potassium Other restriction(s): Fish Allergy 07/13/252049 Physician Expected Discharge Date: 07/17/2025 Discharge Delays: PT Six Click Score: 15 OT Six Click Score: 17 PT Recommendations: Patient is able to return to prior living environment (Presents from SNF) OT Recommendations: Patient is able to return to prior living environment (Admitted from SNF, safe to return) Is expected discharge disposition appropriate for patient?: Yes New Consults: Consult Orders (From admission, onward) Start Ordered 07/13/252006 Inpatient consult to Nephrology Once Specialty: Nephrology Provider: (Not yet assigned) Question Answer Comment Consulting Group NEPHROLOGY TEAM Reason for Consult? transplant Level of Consultation Consultation and Management 07/13/252010 Therapy Orders (From admission, onward) Start Ordered 07/15/25 1309 PT eval and treat Until therapy completed Question: Reason for PT? Answer: Failure to thrive, recent stroke 07/15/25 1308 07/15/25 1309 OT eval and treat Until therapy completed Question: Reason for OT? Answer: Failure to thrive, recent stroke 07/15/25 1308 * Care Plan - Blanca Beltran RN - 07/18/2025 1:16 PM EST The patient is Moderately Stable - Low risk of patient condition declining or worsening The patient's goals for the shift include Comfort and rest The clinical goals for the shift include VSS and safety Problem: Pain - Adult Goal: Verbalizes/displays adequate comfort level or baseline comfort level Outcome: Progressing Problem: Safety - Adult Goal: Free from fall injury Outcome: Progressing Problem: Discharge Planning Goal: Discharge to home or other facility with appropriate resources Outcome: Progressing Problem: Chronic Conditions and Co-morbidities Goal: Patient's chronic conditions and co-morbidity symptoms are monitored and maintained or improved Outcome: Progressing Problem: Skin Integrity Goal: LTG_Show no additional skin breakdown Outcome: Progressing * Care Plan - John Ochoa RN - 07/18/2025 1:22 AM EST The patient is Moderately Stable - Low risk of patient condition declining or worsening The patient's goals for the shift include rest The clinical goals for the shift include VSS O Problem: Pain - Adult Goal: Verbalizes/displays adequate comfort level or baseline comfort level Outcome: Progressing Problem: Discharge Planning Goal: Discharge to home or other facility with appropriate resources Outcome: Progressing * Care Plan - Teddy Douglas RN - 07/17/2025 2:01 PM EST Problem: Pain - Adult Goal: Verbalizes/displays adequate comfort level or baseline comfort level Outcome: Progressing Problem: Safety - Adult Goal: Free from fall injury Outcome: Progressing Problem: Discharge Planning Goal: Discharge to home or other facility with appropriate resources Outcome: Progressing Problem: Chronic Conditions and Co-morbidities Goal: Patient's chronic conditions and co-morbidity symptoms are monitored and maintained or improved Outcome: Progressing Problem: Skin Integrity Goal: LTG_Show no additional skin breakdown Outcome: Progressing The patient is Moderately Unstable - Medium risk of patient condition declining or worsening The patient's goals for the shift include rest The clinical goals for the shift include VSS Over the shift, the patient did make progress toward the following goals. Barriers to progression include . Recommendations to address these barriers include . * Care Plan - John Ochoa RN - 07/16/2025 10:22 PM EST The patient is Moderately Stable - Low risk of patient condition declining or worsening The patient's goals for the shift include rest The clinical goals for the shift include VSS Problem: Pain - Adult Goal: Verbalizes/displays adequate comfort level or baseline comfort level Outcome: Progressing Problem: Safety - Adult Goal: Free from fall injury Outcome: Progressing * Care Plan - Roosevelt Corral RN - 07/16/2025 8:00 AM EST The patient is Moderately Stable - Low risk of patient condition declining or worsening The patient's goals for the shift include comfort and rest The clinical goals for the shift include VSS, safety, adequate nutrition, and increase strength * Care Plan - Geena Yap RN - 07/15/2025 8:00 PM EST The patient is Moderately Stable - Low risk of patient condition declining or worsening The patient's goals for the shift include comfort, rest The clinical goals for the shift include VSS, adequate nutrition, increase strength. * Care Celsa - Roosevelt Corral RN - 07/15/2025 7:51 AM EST The patient is Moderately Stable - Low risk of patient condition declining or worsening The patient's goals for the shift include comfort and rest The clinical goals for the shift include VSS, safety, adequate nutrition, and increase strength * Care Plan - Geena Yap RN - 07/14/2025 8:00 PM EST The patient is Moderately Stable - Low risk of patient condition declining or worsening The patient's goals for the shift include comfort, rest. The clinical goals for the shift include VSS, adequate nutrition, increase strength * Care Plan - Roosevelt Corral RN - 07/14/2025 8:45 AM EST The patient is Moderately Stable - Low risk of patient condition declining or worsening The patient's goals for the shift include rest The clinical goals for the shift include VSS, adequate nutrition, and increase strength * Care Plan - Geena Yap RN - 07/13/2025 8:00 PM EST The patient is Moderately Stable - Low risk of patient condition declining or worsening The patient's goals for the shift include comfort, rest. The clinical goals for the shift include hemodynamically stable, stable vitals, safety. documented in this encounter Plan of Treatment DateTypeDepartmentCare Team (Latest Contact Info)Xzrmrblwclj57/05/2026 8:00 AM ESTFollow-Up [facility] [address] [place] [address] NameTypePriorityAssociated DiagnosesDate/TimeNatera QiwpjfbwBzaBadpphr67/16/2025 12:49 PM ESTNameTypePriorityAssociated DiagnosesOrder ScheduleNatera Propsera LabRoutineOnce (Lab) for 1 Occurrences starting 07/17/2025 until 07/17/2025 documented as of this encounter Goals GoalPatient Goal TypeAssociated ProblemsRecent ProgressPatient-Stated?Author Blood Pressure < 140/90 Blood Orqicjnt524/85(07/24/2025 9:11 AM EST)Crista March RNdocumented as of this encounter Procedures Procedure NamePriorityDate/TimeAssociated DiagnosisCommentsURINE CULTUREPending Dujaphqfj75/23/2025 11:56 AM EST PHOSPHORUSPending Sjwjlujju18/23/2025 5:02 AM EST MAGNESIUMPending Oewqpymgf73/23/2025 5:02 AM EST COMPREHENSIVE METABOLIC PANELPending Qrrawrpjo87/23/2025 5:02 AM EST TACROLIMUS LEVELPending Erzxhgqal08/23/2025 5:01 AM EST CBCPending Wrryiwppa32/23/2025 5:01 AM EST TACROLIMUS LEVELPending Yasbbdbsq48/22/2025 6:50 AM EST CBCPending Wbwjeerhu26/22/2025 6:50 AM EST PHOSPHORUSPending Xvqyjuidi53/22/2025 6:50 AM EST MAGNESIUMPending Gzsphtdpd13/22/2025 6:50 AM EST COMPREHENSIVE METABOLIC PANELPending Yxcgyqjck73/22/2025 6:[address] ABDOMEN PELVIS WO IV DONFXVCUVESL09/21/2025 12:22 PM EST TACROLIMUS LEVELPending Jflayhyou91/21/2025 4:01 AM EST CBCPending Jpjbhzapx79/21/2025 4:01 AM EST PHOSPHORUSPending Uyjuybsay30/21/2025 4:01 AM EST MAGNESIUMPending Zyeogbnec16/21/2025 4:01 AM EST COMPREHENSIVE METABOLIC PANELPending Yjxwwrbog39/21/2025 4:01 AM EST TACROLIMUS LEVELPending Kvmwyukpz55/20/2025 3:40 AM EST CBCPending Xnzplvmvd04/20/2025 3:40 AM EST PHOSPHORUSPending Bijzbwevi50/20/2025 3:40 AM EST MAGNESIUMPending Fynhywedw52/20/2025 3:40 AM EST COMPREHENSIVE METABOLIC PANELPending Gptmwewia02/20/2025 3:40 AM EST URINALYSIS MICROSCOPIC WITH REFLEX CULTUREPending Mwzohmoyc23/19/2025 2:37 PM EST URINALYSIS WITH REFLEX CULTUREPending Pwwgdduzj94/19/2025 2:37 PM EST URINE IMYNFOZEmgzpxf38/19/2025 2:37 PM EST XR CHEST 1 LMDKFxrqugi55/19/2025 12:20 PM EST RAPID INFLUENZA A/B PCRPending Jtybkhlmf63/19/2025 11:21 AM EST BLOOD CULTUREPending Hzqljsrft54/19/2025 10:55 AM EST BLOOD CULTUREPending Udswyeqdn43/19/2025 10:55 AM EST TACROLIMUS LEVELPending Doltdmxzs17/19/2025 5:15 AM EST CBCPending Gwrjaqsfe59/19/2025 5:15 AM EST PHOSPHORUSPending Kevsgyhwj01/19/2025 5:15 AM EST MAGNESIUMPending Xotumjflh50/19/2025 5:15 AM EST CKAdd-On07/20/2025 5:15 AM EST COMPREHENSIVE METABOLIC PANELPending Zqfeuajcc94/19/2025 5:15 AM EST POCT GLUCOSE METER UNSOLICITED LQBTVFXRzjmqby58/18/2025 7:19 AM EST TACROLIMUS LEVELPending Fenttgbap80/18/2025 5:18 AM EST CBCPending Yedrgckth51/18/2025 5:18 AM EST PHOSPHORUSPending Zctopxckm58/18/2025 5:18 AM EST MAGNESIUMPending Dbqxgkzjo48/18/2025 5:18 AM EST COMPREHENSIVE METABOLIC PANELPending Qoylrlrpf44/18/2025 5:18 AM EST TACROLIMUS LEVELPending Lkoxfycmx99/17/2025 5:32 AM EST VITAMIN D 25 HYDROXYAdd-On07/18/2025 5:32 AM EST CBCPending Ajppcsmgl49/17/2025 5:32 AM EST PHOSPHORUSPending Nnqorlieb14/17/2025 5:32 AM EST PTH, INTACTAdd-On07/18/2025 5:32 AM EST MAGNESIUMPending Cgkununnu27/17/2025 5:32 AM EST COMPREHENSIVE METABOLIC PANELPending Moaltxwdx37/17/2025 5:32 AM EST DONOR SPECIFIC SARJKMVRBivgnjp69/16/2025 12:17 PM EST SINGLE ANTIGEN CLASS IIPending Xiewdiqta39/16/2025 12:17 PM EST SINGLE ANTIGEN CLASS IPending Lhvxgcyio96/16/2025 12:17 PM EST BK VIRUS, PLASMA, QUANTITATIVEPending Ttkahmbti76/16/2025 12:17 PM EST CMV DNA, QUANTITATIVE, NAAT, PLASMAPending Kiojeeqds37/16/2025 12:17 PM EST PROTEIN, URINE, RANDOMPending Eibpoyxgy75/16/2025 12:12 PM EST CREATININE, URINE, RANDOMPending Tlqntecbg42/16/2025 12:12 PM EST URINALYSIS MICROSCOPICPending Vtszbhqmn24/16/2025 12:12 PM EST URINALYSISPending Hvmcsgffh29/16/2025 12:12 PM EST URINE CULTUREAdd-On07/17/2025 12:12 PM EST TACROLIMUS LEVELPending Kudeupgnx35/16/2025 5:01 AM EST CBCPending Vtovminwd46/16/2025 5:01 AM EST PHOSPHORUSPending Jgwwipypu74/16/2025 5:01 AM EST MAGNESIUMPending Dozggrjji51/16/2025 5:01 AM EST COMPREHENSIVE METABOLIC PANELPending Whxivaugt63/16/2025 5:01 AM EST RESPIRATORY ASSESS AND TREAT OSPBTRHCVksqlbt89/15/2025 8:00 AM ESTTACROLIMUS LEVELPending Kytoisbfm54/15/2025 5:08 AM EST CBCPending Tdrajghwt29/15/2025 5:08 AM EST PHOSPHORUSPending Qdrcwfobp10/15/2025 5:08 AM EST MAGNESIUMPending Jipgeldaz76/15/2025 5:08 AM EST COMPREHENSIVE METABOLIC PANELPending Joevrrkgz12/15/2025 5:08 AM EST RESPIRATORY ASSESS AND TREAT PTJZYKRWFgtossh48/14/2025 2:24 PM ESTRESPIRATORY ASSESS AND TREAT TBDUDGGINtsgtcn69/14/2025 2:24 PM ESTXR CHEST 1 VIEWSTAT 07/15/2025 1:41 PM EST CBC WITH AUTO KBVCQRQVCVYAOdqhwmd07/14/2025 11:27 AM EST CBC AND ONFOYKNKCFDYMzxdouz81/14/2025 11:27 AM EST TACROLIMUS LQFNZCtksqhp87/14/2025 3:27 AM EST IRON AND TIBCAdd-On07/15/2025 3:27 AM EST UZJAhalwdh68/14/2025 3:27 AM EST NGWHAINXAVOfdgnxz93/14/2025 3:27 AM EST KCSRMNIZXThnljta64/14/2025 3:27 AM EST FERRITINAdd-On07/15/2025 3:27 AM EST COMPREHENSIVE METABOLIC ODUEAHnlrywf14/14/2025 3:27 AM EST SARS-COV-2 TXRTopksva19/13/2025 6:13 PM EST TACROLIMUS DBIAGQbainuw28/13/2025 3:37 AM EST SBNSlvueji81/13/2025 3:37 AM EST GEJVQILROQDfvdptt76/13/2025 3:37 AM EST FWMJCLLKZSawddvr91/13/2025 3:37 AM EST COMPREHENSIVE METABOLIC WVBNFLmfmffg66/13/2025 3:37 AM EST TACROLIMUS OGWCRRxorsoo51/12/2025 8:48 PM EST CSFElnxepk80/12/2025 8:48 PM EST PLEOJHVLZDKpnhivl48/12/2025 8:48 PM EST WWYPBCFOYZbqrqwi55/12/2025 8:48 PM EST COMPREHENSIVE METABOLIC CAMQOJkcdstk11/12/2025 8:48 PM EST documented in this encounter Results * Urine culture, routine (07/24/2025 11:56 AM EST)ComponentValueRef RangeTest MethodAnalysis TimePerformed AtPathologist SignatureUrine CultureNo growth at 48 hours JES 07/26/2025 7:15 AM [facility] ([facility])Specimen (Source)Anatomical Location / LateralityCollection Method / VolumeCollection TimeReceived TimeUrine Urine specimen obtained by clean catch procedure / UnknownNon-blood Collection / Twdkpdu9007/24/2025 11:56 AM EST07/24/2025 12:04 PM EST Narrative Authorizing ProviderResult TypeResult StatusGrazyna Briseno CNPLAB MICROBIOLOGY - GENERAL ORDERABLESFinal ResultPerforming OrganizationAddress City/State/ZIP CodePhone Number [facility] ([facility]) [address] [place] [phone] * (ABNORMAL) Phosphorus (07/24/2025 5:02 AM EST)ComponentValueRef RangeTest MethodAnalysis TimePerformed AtPathologist SignaturePhosphorus1.9(L)2.5 - 5.0 mg/dL07/24/2025 6:05 AM [facility] ([facility])Specimen (Source) Anatomical Location / LateralityCollection Method / VolumeCollection Time Received TimeBloodVenous blood specimen / UnknownVenipuncture / Unknown 07/24/2025 5:02 AM EST07/24/2025 5:39 AM EST Narrative Authorizing ProviderResult TypeResult StatusJayjay FAJARDO BLOOD ORDERABLES Final ResultPerforming OrganizationAddressCity/State/ZIP CodePhone Number [facility]) [address] [place] [id number] * Magnesium (07/24/2025 5:02 AM EST)ComponentValueRef RangeTest MethodAnalysis TimePerformed AtPathologist SignatureMagnesium2.21.9 - 2.7 mg/dL07/24/2025 6:05 AM [facility] ([facility])Specimen (Source)Anatomical Location / LateralityCollection Method / VolumeCollection TimeReceived TimeBloodVenous blood specimen / UnknownVenipuncture / Rtdhiqo8107/24/2025 5:02 AM EST07/24/2025 5:39 AM EST Narrative Authorizing ProviderResult TypeResult StatusKunatuan FAJARDO BLOOD ORDERABLES Final ResultPerforming OrganizationAddressCity/State/ZIP CodePhone Number [facility] ([facility]) [address] [place] [address] * (ABNORMAL) Comprehensive metabolic panel (07/24/2025 5:02 AM EST)Component ValueRef RangeTest MethodAnalysis TimePerformed AtPathologist SignatureSodium 075694 - 145 mmol/L109/24/2024 6:17 AM [facility] ([facility])Potassium 4.03.5 - 5.1 mmol/L109/24/2024 6:17 AM [facility] ([facility])Pghlfgcn628 (H)98 - 107 mmol/L109/24/2024 6:17 AM [facility] ([facility])CC59962 - 31 mmol/L109/24/2024 6:17 AM [facility] ([facility])Anion Hib726 - 20 mmol/L109/24/2024 6:17 AM [facility] ([facility])BUN35(H)7 - 25 mg/dL 07/24/2025 6:17 AM [facility] ([facility])Creatinine1.290.70 - 1.30 mg/dL07/24/2025 6:17 AM [facility] ([facility])BUN/Creatinine Ratio27.1 07/24/2025 6:17 AM [facility] ([facility])Sekdeur488(H)70 - 100 mg/dL 07/24/2025 6:17 AM [facility] ([facility])Calcium7.6(L)8.6 - 10.3 mg/dL 07/24/2025 6:17 AM [facility] ([facility])XZZ9197 - 39 U/L109/24/2024 6:17 AM [facility] ([facility])ALT (SGPT)137 - 52 U/L109/24/2024 6:17 AM [facility] ([facility])Alkaline Dvfndhriyjj7957 - 104 U/L109/24/2024 6:17 AM [facility] ([facility])Total Protein4.4(L)6.0 - 8.3 g/dL07/24/2025 6:17 AM [facility] ([facility])Albumin2.9(L)3.5 - 5.7 g/dL07/24/2025 6:17 AM [facility] ([facility])Total Bilirubin0.30.3 - 1.0 mg/dL 07/24/2025 6:17 AM [facility] ([facility])eGFR59.6(L)>60.0 mL/min/1.73m* 6:17 AM [facility] ([facility])Comment:[facility]???s estimated glomerular filtration rate (eGFR) will [...] TimeReceived TimeBloodVenous blood specimen / UnknownVenipuncture / Sgxmiry5507/24/2025 5:02 AM EST07/24/2025 5:39 AM EST Narrative Authorizing ProviderResult TypeResult StatusKunal Lobito FAJARDO BLOOD ORDERABLES Final ResultPerforming OrganizationAddressCity/State/ZIP CodePhone Number [facility] ([facility]) [address] [place] [address] * Tacrolimus level (07/24/2025 5:01 AM EST)ComponentValueRef RangeTest Method Analysis TimePerformed AtPathologist SignatureTacrolimus Lvl6.65.0 - 20.0 ng/mL07/24/2025 11:01 AM [facility] ([facility])Comment:The CM POLICY ANALYST Tacrolimus assay is a delayed one-step immunoassay for the quantitative determination of tacrolimus in human whole blood using the chemiluminescent microparticle immunoassay (CMIA) technology with flexible assay protocols, referred to as Chemiflex.Specimen (Source)Anatomical Location / LateralityCollection Method / VolumeCollection TimeReceived TimeBloodVenous blood specimen / UnknownVenipuncture / Srkdypv3707/24/2025 5:01 AM EST 07/24/2025 5:39 AM EST Narrative Authorizing ProviderResult TypeResult StatusKnicole FAJARDO BLOOD ORDERABLES Final ResultPerforming OrganizationAddressCity/State/ZIP CodePhone Number [facility] ([facility]) [address] [place] [address] * (ABNORMAL) CBC (07/24/2025 5:01 AM EST)ComponentValueRef RangeTest Method Analysis TimePerformed AtPathologist SignatureAuto WBC10.66(H)4.00 - 10.60 10*3/uL07/24/2025 5:46 AM [facility] ([facility])RBC2.37(L)4.20 - 5.70 10*6/uL07/24/2025 5:46 AM [facility] ([facility])Hemoglobin7.9(L)13.0 - 17.0 g/dL07/24/2025 5:46 AM [facility] ([facility])Zjrgkxeqzu72.0(L)39.0 - 50.0 %07/24/2025 5:46 AM [facility] ([facility])JWJ381.3(H)82.0 - 98.0 fL07/24/2025 5:46 AM [facility] ([facility])MCH33.3(H)27.0 - 33.0 pg07/24/2025 5:46 AM [facility] ([facility])MCHC32.932.0 - 35.0 g/dL 07/24/2025 5:46 AM [facility] ([facility])RDW18.3(H)11.5 - 15.0 % 07/24/2025 5:46 AM [facility] ([facility])Qfubnbani608439 - 400 10*3/uL 07/24/2025 5:46 AM [facility] ([facility])Specimen (Source)Anatomical Location / LateralityCollection Method / VolumeCollection TimeReceived Time BloodVenous blood specimen / UnknownVenipuncture / Bwerprj5307/24/2025 5:01 AM EST07/24/2025 5:39 AM EST Narrative Authorizing ProviderResult TypeResult StatusKunatuan FAJARDO BLOOD ORDERABLES Final ResultPerforming OrganizationAddressCity/State/ZIP CodePhone Number [facility]) [address] [place] [address] * Tacrolimus level (07/23/2025 6:50 AM EST)ComponentValueRef RangeTest Method Analysis TimePerformed AtPathologist SignatureTacrolimus Lvl6.55.0 - 20.0 ng/mL07/23/2025 9:09 AM [facility])Comment:The CM POLICY ANALYST Tacrolimus assay is a delayed one-step immunoassay for the quantitative determination of tacrolimus in human whole blood using the chemiluminescent microparticle immunoassay (CMIA) technology with flexible assay protocols, referred to as Chemiflex.Specimen (Source)Anatomical Location / LateralityCollection Method / VolumeCollection TimeReceived TimeBloodVenous blood specimen / UnknownVenipuncture / Roncmjw3807/23/2025 6:50 AM EST 07/23/2025 7:07 AM EST Narrative Authorizing ProviderResult TypeResult StatusKunal Lobito FAJARDO BLOOD ORDERABLES Final ResultPerforming OrganizationAddressCity/State/ZIP CodePhone Number [facility]) [place] [address] * Phosphorus (07/23/2025 6:50 AM EST)ComponentValueRef RangeTest MethodAnalysis TimePerformed AtPathologist SignaturePhosphorus2.52.5 - 5.0 mg/dL07/23/2025 7:57 AM [facility] ([facility])Specimen (Source)Anatomical Location / LateralityCollection Method / VolumeCollection TimeReceived TimeBloodVenous blood specimen / UnknownVenipuncture / Imcyphn3607/23/2025 6:50 AM EST07/23/2025 7:07 AM EST Narrative Authorizing ProviderResult TypeResult StatusKunatuan FAJARDO BLOOD ORDERABLES Final ResultPerforming OrganizationAddressCity/State/ZIP CodePhone Number [facility]) [place] [address] * (ABNORMAL) Magnesium (07/23/2025 6:50 AM EST)ComponentValueRef RangeTest MethodAnalysis TimePerformed AtPathologist SignatureMagnesium1.5(L)1.9 - 2.7 mg/dL07/23/2025 7:57 AM [facility] ([facility])Specimen (Source) Anatomical Location / LateralityCollection Method / VolumeCollection Time Received TimeBloodVenous blood specimen / UnknownVenipuncture / Unknown 07/23/2025 6:50 AM EST07/23/2025 7:07 AM EST Narrative Authorizing ProviderResult TypeResult StatusKunal Lobito FAJARDO BLOOD ORDERABLES Final ResultPerforming OrganizationAddressCity/State/ZIP CodePhone Number [facility] ([facility]) [address] [place] [address] * (ABNORMAL) Comprehensive metabolic panel (07/23/2025 6:50 AM EST)Component ValueRef RangeTest MethodAnalysis TimePerformed AtPathologist SignatureSodium 704469 - 145 mmol/L109/23/2024 7:57 AM [facility] ([facility])Potassium 3.73.5 - 5.1 mmol/L109/23/2024 7:57 AM [facility] ([facility])Xjdlskse133 (H)98 - 107 mmol/L109/23/2024 7:57 AM [facility] ([facility])XB11115 - 31 mmol/L109/23/2024 7:57 AM [facility] ([facility])Anion Gen177 - 20 mmol/L109/23/2024 7:57 AM [facility] ([facility])BUN38(H)7 - 25 mg/dL 07/23/2025 7:57 AM [facility] ([facility])Creatinine1.150.70 - 1.30 mg/dL07/23/2025 7:57 AM [facility] ([facility])BUN/Creatinine Ratio33.0 07/23/2025 7:57 AM [facility] ([facility])Rwqyxhe201(H)70 - 100 mg/dL 07/23/2025 7:57 AM [facility] ([facility])Calcium7.7(L)8.6 - 10.3 mg/dL 07/23/2025 7:57 AM [facility] ([facility])AST11(L)13 - 39 U/L109/23/2024 7:57 AM [facility] ([facility])ALT (SGPT)127 - 52 U/L109/23/2024 7:57 AM [facility] ([facility])Alkaline Afmwaszsyqv6788 - 104 U/L109/23/2024 7:57 AM [facility] ([facility])Total Protein4.5(L)6.0 - 8.3 g/dL07/23/2025 7:57 AM [facility] ([facility])Albumin2.9(L)3.5 - 5.7 g/dL07/23/2025 7:57 AM [facility] ([facility])Total Bilirubin0.30.3 - 1.0 mg/dL 07/23/2025 7:57 AM [facility] ([facility])eGFR68.5>60.0 mL/min/1.73m*2 07/23/2025 7:57 AM [facility] ([facility])Comment:[facility]???s estimated glomerular filtration rate (eGFR) will [...] TimeBloodVenous blood specimen / Unknown Venipuncture / Eamkrrb5707/23/2025 6:50 AM EST07/23/2025 7:07 AM EST Narrative Authorizing ProviderResult TypeResult StatusKunal Lobito FAJARDO BLOOD ORDERABLES Final ResultPerforming OrganizationAddressCity/State/ZIP CodePhone Number [facility] ([facility]) [address] [place] [address] * (ABNORMAL) CBC (07/23/2025 6:50 AM EST)ComponentValueRef RangeTest Method Analysis TimePerformed AtPathologist SignatureAuto WBC9.504.00 - 10.60 10*3/uL 07/23/2025 7:18 AM [facility] ([facility])RBC2.42(L)4.20 - 5.70 10*6/uL 07/23/2025 7:18 AM [facility] ([facility])Hemoglobin8.0(L)13.0 - 17.0 g/dL07/23/2025 7:18 AM [facility] ([facility])Cdyojcdixn30.4(L)39.0 - 50.0 %07/23/2025 7:18 AM [facility] ([facility])JKN621.8(H)82.0 - 98.0 fL07/23/2025 7:18 AM [facility] ([facility])MCH33.1(H)27.0 - 33.0 pg 07/23/2025 7:18 AM [facility] ([facility])MCHC32.832.0 - 35.0 g/dL 07/23/2025 7:18 AM [facility] ([facility])RDW18.0(H)11.5 - 15.0 % 07/23/2025 7:18 AM [facility] ([facility])Asnhsmdql736473 - 400 10*3/uL 07/23/2025 7:18 AM [facility] ([facility])Specimen (Source)Anatomical Location / LateralityCollection Method / VolumeCollection TimeReceived Time BloodVenous blood specimen / UnknownVenipuncture / Ayevrhx8207/23/2025 6:50 AM EST07/23/2025 7:07 AM EST Narrative Authorizing ProviderResult TypeResult StatusKunal Lobito JOSEPHLAB BLOOD ORDERABLES Final ResultPerforming OrganizationAddressCity/State/ZIP CodePhone Number [facility] ([facility]) [address] [place] [address] * CT abdomen pelvis wo IV contrast (07/22/2025 12:22 PM EST)Anatomical Region LateralityModalityBody, Pelvis, AbdomenComputed TomographySpecimen (Source) Anatomical Location / LateralityCollection Method / VolumeCollection Time Received Time07/22/2025 12:56 PM EST Impressions 07/22/2025 1:04 PM EST * There is a diverticular disease of the descending colon. No CT scan evidence of diverticulitis. * Nonobstructive bowel gas pattern with moderate amount of feces. 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 Probable hydronephrosis is suspected. There is a 7 mm hypodense abnormality in the transplant kidney. There is an approximately 7 x 5.4 x 4.5 cm lobulated fluid collection inferior to the transplant kidney in the perinephric region. This abnormality was present on the prior study. This could be a lymphocele, dilated ureter or others cyst. A clinical correlation is suggested. Renal transplant ultrasound examination would be helpful for further evaluation. * Multifocal splenic tissues in the left upper abdomen. * Atrophic both [place] kidneys with the left renal cyst. * Bilateral small pleural effusions and bibasilar atelectasis. * Pericardial effusion. Electronically signed: Rosalino Rueda. Narrative 07/22/2025 1:04 PM EST HISTORY: A 69-year-old male with the history of the left lower quadrant abdominal pain. Diverticulitis is suspected. EXAM/TECHNIQUE: ??Multidetector spiral CT scan of abdomen and pelvis is performed without intravenous contrast administration. ??Multiplanar reconstruction images are reformatted. All CT scans at this facility use dose modulation, iterative reconstruction, and/or weight based dosing when appropriate to reduce radiation dose to as low as reasonably achievable. COMPARISON: ??Comparison is made with the CT scan of the abdomen and pelvis of 05/31/2025. FINDINGS: ??There are bilateral small pleural effusions and bibasilar atelectasis. Heart appears enlarged. There is a pericardial effusion. Liver is normal in size and attenuation. Spleen is not visualized suggestive of prior splenectomy with multiple splenic tissues in the left upper abdomen. Pancreas is unremarkable. Gallbladder is normal. No biliary ductal dilatation is identified. Both [place] kidneys are small and atrophic. There is no evidence of hydronephrosis in the [place] kidneys. There is a stable left renal cyst. Urinary bladder is unremarkable. There is a transplant kidney in the right pelvic fossa. There is probable hydronephrosis in the transplant kidney. There is a 7 mm hypodense abnormality in the transplant kidney. There is a lobulated fluid collection inferior to the transplant kidney. It measures 7 x 5.4 x 4.5 cm in size. This could be a lymphocele. Dilated ureter cannot be excluded. Bowel gas pattern is nonobstructive. There is anastomosis in the pelvis. There is a diverticular disease of the descending colon. No evidence of diverticulitis. Moderate amount of feces is seen in the colon. There is no evidence of ascites fluid. Vascular calcifications are seen. There is generalized edema. There is a compression deformity of the L4 vertebral body. Degenerative changes are seen in the thoracolumbar spine and both hip joints Procedure Note Rosalino Rueda MD - 07/22/2025 HISTORY: A 69-year-old male with the history of the left lower quadrant abdominal pain. Diverticulitis is suspected. EXAM/TECHNIQUE: Multidetector spiral CT scan of abdomen and pelvis isperformed without intravenous contrast administration. Multiplanar reconstructionimages are reformatted. All CT scans at this facility use dose modulation, iterativereconstruction, and/or weight based dosing when appropriate to reduce radiation dose to aslow as reasonably achievable. COMPARISON: Comparison is made with the CT scan of the abdomen and pelvisof 05/31/2025. FINDINGS: There are bilateral small pleural effusions and bibasilar atelectasis. Heart appears enlarged. There is a pericardial effusion. Liver is normal in size and attenuation. Spleen is not visualizedsuggestive of prior splenectomy with multiple splenic tissues in the left upperabdomen. Pancreas is unremarkable. Gallbladder is normal. No biliary ductal dilatation is identified. Both [place] kidneys are small and atrophic. There is no evidence of hydronephrosis in the [place] kidneys. There is a stable left renal cyst.Urinary bladder is unremarkable. There is a transplant kidney in the right pelvic fossa. There isprobable hydronephrosis in the transplant kidney. There is a 7 mm hypodenseabnormality in the transplant kidney. There is a lobulated fluid collection inferiorto the transplant kidney. It measures 7 x 5.4 x 4.5 cm in size. This could be a lymphocele. Dilated ureter cannot be excluded. Bowel gas pattern is nonobstructive. There is anastomosis in the pelvis.There is a diverticular disease of the descending colon. No evidence of diverticulitis. Moderate amount of feces is seen in the colon. There is no evidence of ascites fluid. Vascular calcifications are seen.There is generalized edema. There is a compression deformity of the L4 vertebral body. Degenerativechanges are seen in the thoracolumbar spine and both hip joints IMPRESSION: *There is a diverticular disease of the descending colon. No CT scan evidence of diverticulitis. *Nonobstructive bowel gas pattern with moderate amount of feces. 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 Probablehydronephrosis is suspected. There is a 7 mm hypodense abnormality in the transplantkidney. There is an approximately 7 x 5.4 x 4.5 cm lobulated fluid collectioninferior to the transplant kidney in the perinephric region. This abnormality waspresent on the prior study. This could be a lymphocele, dilated ureter or otherscyst. A clinical correlation is suggested. Renal transplant ultrasound examinationwould be helpful for further evaluation. *Multifocal splenic tissues in the left upper abdomen. *Atrophic both [place] kidneys with the left renal cyst. *Bilateral small pleural effusions and bibasilar atelectasis. *Pericardial effusion. Electronically signed: Rosalino Rueda. Authorizing ProviderResult TypeResult StatusJayjay JUSTICEG CT PROCEDURESFinal Result * Tacrolimus level (07/22/2025 4:01 AM EST)ComponentValueRef RangeTest Method Analysis TimePerformed AtPathologist SignatureTacrolimus Lvl7.15.0 - 20.0 ng/mL07/22/2025 9:25 AM [facility] ([place])Comment:The CM POLICY ANALYST Tacrolimus assay is a delayed one-step immunoassay for the quantitative determination of tacrolimus in human whole blood using the chemiluminescent microparticle immunoassay (CMIA) technology with flexible assay protocols, referred to as Chemiflex.Specimen (Source)Anatomical Location / LateralityCollection Method / VolumeCollection TimeReceived TimeBloodVenous blood specimen / UnknownVenipuncture / Onlinzv6207/22/2025 4:01 AM EST 07/22/2025 4:15 AM EST Narrative Authorizing ProviderResult TypeResult StatusJayjay FAJARDO BLOOD ORDERABLES Final ResultPerforming OrganizationAddressCity/State/ZIP CodePhone Number [facility] ([place]) [address] [place] [address] * Phosphorus (07/22/2025 4:01 AM EST)ComponentValueRef RangeTest MethodAnalysis TimePerformed AtPathologist SignaturePhosphorus3.52.5 - 5.0 mg/dL07/22/2025 4:39 AM [facility] ([facility])Specimen (Source)Anatomical Location / LateralityCollection Method / VolumeCollection TimeReceived TimeBloodVenous blood specimen / UnknownVenipuncture / Dpzolvh0407/22/2025 4:01 AM EST07/22/2025 4:15 AM EST Narrative Authorizing ProviderResult TypeResult StatusJayjay FAJARDO BLOOD ORDERABLES Final ResultPerforming OrganizationAddressCity/State/ZIP CodePhone Number [facility]) [address] [place] [address] * (ABNORMAL) Magnesium (07/22/2025 4:01 AM EST)ComponentValueRef RangeTest MethodAnalysis TimePerformed AtPathologist SignatureMagnesium1.5(L)1.9 - 2.7 mg/dL07/22/2025 4:39 AM [facility] ([facility])Specimen (Source) Anatomical Location / LateralityCollection Method / VolumeCollection Time Received TimeBloodVenous blood specimen / UnknownVenipuncture / Unknown 07/22/2025 4:01 AM EST07/22/2025 4:15 AM EST Narrative Authorizing ProviderResult TypeResult StatusJayjay FAJARDO BLOOD ORDERABLES Final ResultPerforming OrganizationAddressCity/State/ZIP CodePhone Number [facility]) [address] [place] [address] * (ABNORMAL) Comprehensive metabolic panel (07/22/2025 4:01 AM EST)Component ValueRef RangeTest MethodAnalysis TimePerformed AtPathologist SignatureSodium 077417 - 145 mmol/L109/22/2024 4:39 AM [facility] ([facility])Potassium 3.63.5 - 5.1 mmol/L109/22/2024 4:39 AM [facility] ([facility])Yatednfy923 (H)98 - 107 mmol/L109/22/2024 4:39 AM [facility] ([facility])OY18494 - 31 mmol/L109/22/2024 4:39 AM [facility] ([facility])Anion Xdy944 - 20 mmol/L109/22/2024 4:39 AM [facility] ([facility])BUN39(H)7 - 25 mg/dL 07/22/2025 4:39 AM [facility] ([facility])Creatinine1.42(H)0.70 - 1.30 mg/dL07/22/2025 4:39 AM [facility] ([facility])BUN/Creatinine Ratio27.5 07/22/2025 4:39 AM [facility] ([facility])Zdixtfw800(H)70 - 100 mg/dL 07/22/2025 4:39 AM [facility] ([facility])Calcium7.9(L)8.6 - 10.3 mg/dL 07/22/2025 4:39 AM [facility] ([facility])AST11(L)13 - 39 U/L109/22/2024 4:39 AM [facility] ([facility])ALT (SGPT)137 - 52 U/L109/22/2024 4:39 AM [facility] ([facility])Alkaline Pnoxnixzyda8084 - 104 U/L109/22/2024 4:39 AM [facility] ([facility])Total Protein4.6(L)6.0 - 8.3 g/dL07/22/2025 4:39 AM [facility] ([facility])Albumin3.0(L)3.5 - 5.7 g/dL07/22/2025 4:39 AM [facility] ([facility])Total Bilirubin0.30.3 - 1.0 mg/dL 07/22/2025 4:39 AM [facility] ([facility])eGFR53.2(L)>60.0 mL/min/1.73m* 4:39 AM [facility] ([facility])Comment:[facility]???s estimated glomerular filtration rate (eGFR) will [...] TimeReceived TimeBloodVenous blood specimen / UnknownVenipuncture / Sbmgtlj3207/22/2025 4:01 AM EST07/22/2025 4:15 AM EST Narrative Authorizing ProviderResult TypeResult StatusKunal Lobito FAJARDO BLOOD ORDERABLES Final ResultPerforming OrganizationAddressCity/State/ZIP CodePhone Number [facility] ([facility]) [address] [place] [address] * (ABNORMAL) CBC (07/22/2025 4:01 AM EST)ComponentValueRef RangeTest Method Analysis TimePerformed AtPathologist SignatureAuto WBC12.06(H)4.00 - 10.60 10*3/uL07/22/2025 4:29 AM [facility] ([facility])RBC2.38(L)4.20 - 5.70 10*6/uL07/22/2025 4:29 AM [facility] ([facility])Hemoglobin8.0(L)13.0 - 17.0 g/dL07/22/2025 4:29 AM [facility] ([facility])Aowvmmgecw09.2(L)39.0 - 50.0 %07/22/2025 4:29 AM [facility] ([facility])GRH471.7(H)82.0 - 98.0 fL07/22/2025 4:29 AM [facility] ([facility])MCH33.6(H)27.0 - 33.0 pg07/22/2025 4:29 AM [facility] ([facility])MCHC33.132.0 - 35.0 g/dL 07/22/2025 4:29 AM [facility] ([facility])RDW17.7(H)11.5 - 15.0 % 07/22/2025 4:29 AM [facility] ([facility])Gbbjjciqg274287 - 400 10*3/uL 07/22/2025 4:29 AM [facility])Specimen (Source)Anatomical Location / LateralityCollection Method / VolumeCollection TimeReceived Time BloodVenous blood specimen / UnknownVenipuncture / Awtmycr9607/22/2025 4:01 AM EST07/22/2025 4:15 AM EST Narrative Authorizing ProviderResult TypeResult StatusJayjay Robin MDLAB BLOOD ORDERABLES Final ResultPerforming OrganizationAddressCity/State/ZIP CodePhone Number [facility]) [address] [place] [address] * Tacrolimus level (07/21/2025 3:40 AM EST)ComponentValueRef RangeTest Method Analysis TimePerformed AtPathologist SignatureTacrolimus Lvl8.95.0 - 20.0 ng/mL07/21/2025 9:22 AM [facility] ([facility])Comment:The [employer] POLICY ANALYST Tacrolimus assay is a delayed one-step immunoassay for the quantitative determination of tacrolimus in human whole blood using the chemiluminescent microparticle immunoassay (CMIA) technology with flexible assay protocols, referred to as Chemiflex.Specimen (Source)Anatomical Location / LateralityCollection Method / VolumeCollection TimeReceived TimeBloodVenous blood specimen / UnknownVenipuncture / Oigfbgo7807/21/2025 3:40 AM EST 07/21/2025 4:15 AM EST Narrative Authorizing ProviderResult TypeResult StatusJayjay Robin MDLAB BLOOD ORDERABLES Final ResultPerforming OrganizationAddressCity/State/ZIP CodePhone Number [facility]) [address] [place] [id number] * Phosphorus (07/21/2025 3:40 AM EST)ComponentValueRef RangeTest MethodAnalysis TimePerformed AtPathologist SignaturePhosphorus3.32.5 - 5.0 mg/dL07/21/2025 4:40 AM [facility] ([facility])Specimen (Source)Anatomical Location / LateralityCollection Method / VolumeCollection TimeReceived TimeBloodVenous blood specimen / UnknownVenipuncture / Nhzhfon9307/21/2025 3:40 AM EST07/21/2025 4:14 AM EST Narrative Authorizing ProviderResult TypeResult StatusKunatuan Robin MDLAB BLOOD ORDERABLES Final ResultPerforming OrganizationAddressCity/State/ZIP CodePhone Number [facility] ([facility]) [address] [place] [address] * (ABNORMAL) Magnesium (07/21/2025 3:40 AM EST)ComponentValueRef RangeTest MethodAnalysis TimePerformed AtPathologist SignatureMagnesium1.7(L)1.9 - 2.7 mg/dL07/21/2025 4:40 AM [facility] ([facility])Specimen (Source) Anatomical Location / LateralityCollection Method / VolumeCollection Time Received TimeBloodVenous blood specimen / UnknownVenipuncture / Unknown 07/21/2025 3:40 AM EST07/21/2025 4:14 AM EST Narrative Authorizing ProviderResult TypeResult StatusKunatuan FAJARDO BLOOD ORDERABLES Final ResultPerforming OrganizationAddressCity/State/ZIP CodePhone Number [facility]) [address] [place] [address] * (ABNORMAL) Comprehensive metabolic panel (07/21/2025 3:40 AM EST)Component ValueRef RangeTest MethodAnalysis TimePerformed AtPathologist SignatureSodium 652351 - 145 mmol/L109/21/2024 4:40 AM [facility] ([facility])Potassium 3.83.5 - 5.1 mmol/L109/21/2024 4:40 AM [facility] ([facility])Dolrpbyj277 (H)98 - 107 mmol/L109/21/2024 4:40 AM [facility] ([facility])RA25669 - 31 mmol/L109/21/2024 4:40 AM [facility] ([facility])Anion Bzw452 - 20 mmol/L109/21/2024 4:40 AM [facility] ([facility])BUN38(H)7 - 25 mg/dL 07/21/2025 4:40 AM [facility] ([facility])Creatinine1.37(H)0.70 - 1.30 mg/dL07/21/2025 4:40 AM [facility] ([facility])BUN/Creatinine Ratio27.7 07/21/2025 4:40 AM [facility] ([facility])Zlylbne195(H)70 - 100 mg/dL 07/21/2025 4:40 AM [facility] ([facility])Calcium8.4(L)8.6 - 10.3 mg/dL 07/21/2025 4:40 AM [facility] ([facility])AST12(L)13 - 39 U/L109/21/2024 4:40 AM [facility] ([facility])ALT (SGPT)167 - 52 U/L109/21/2024 4:40 AM [facility] ([facility])Alkaline Wuaqdxxpaby6809 - 104 U/L109/21/2024 4:40 AM [facility] ([facility])Total Protein5.0(L)6.0 - 8.3 g/dL07/21/2025 4:40 AM [facility] ([facility])Albumin3.4(L)3.5 - 5.7 g/dL07/21/2025 4:40 AM [facility] ([facility])Total Bilirubin0.40.3 - 1.0 mg/dL 07/21/2025 4:40 AM [facility] ([facility])eGFR55.5(L)>60.0 mL/min/1.73m* 4:40 AM [facility] ([facility])Comment:[facility]???s estimated glomerular filtration rate (eGFR) will [...] TimeReceived TimeBloodVenous blood specimen / UnknownVenipuncture / Azdnlnc8407/21/2025 3:40 AM EST07/21/2025 4:14 AM EST Narrative Authorizing ProviderResult TypeResult StatusKunal Lobito FAJARDO BLOOD ORDERABLES Final ResultPerforming OrganizationAddressCity/State/ZIP CodePhone Number [facility] ([facility]) [address] [place] [address] * (ABNORMAL) CBC (07/21/2025 3:40 AM EST)ComponentValueRef RangeTest Method Analysis TimePerformed AtPathologist SignatureAuto WBC19.07(H)4.00 - 10.60 10*3/uL07/21/2025 4:29 AM [facility] ([facility])RBC2.65(L)4.20 - 5.70 10*6/uL07/21/2025 4:29 AM [facility] ([facility])Hemoglobin8.9(L)13.0 - 17.0 g/dL07/21/2025 4:29 AM [facility] ([facility])Hgrrmgkbjh30.2(L)39.0 - 50.0 %07/21/2025 4:29 AM [facility] ([facility])GNN658.6(H)82.0 - 98.0 fL07/21/2025 4:29 AM [facility] ([facility])MCH33.6(H)27.0 - 33.0 pg07/21/2025 4:29 AM [facility] ([facility])MCHC32.732.0 - 35.0 g/dL 07/21/2025 4:29 AM [facility] ([facility])RDW17.4(H)11.5 - 15.0 % 07/21/2025 4:29 AM [facility] ([facility])Tvvolwudl685775 - 400 10*3/uL 07/21/2025 4:29 AM [facility] ([facility])Specimen (Source)Anatomical Location / LateralityCollection Method / VolumeCollection TimeReceived Time BloodVenous blood specimen / UnknownVenipuncture / Ytkgnmm9307/21/2025 3:40 AM EST07/21/2025 4:15 AM EST Narrative Authorizing ProviderResult TypeResult StatusKunal Lobito FAJARDO BLOOD ORDERABLES Final ResultPerforming OrganizationAddressCity/State/ZIP CodePhone Number [facility] ([facility]) [address] [place] [address] * (ABNORMAL) Urine culture, routine (07/20/2025 2:37 PM EST)ComponentValueRef RangeTest MethodAnalysis TimePerformed AtPathologist SignatureUrine Culture >100,000 CFU/Ml Pseudomonas aeruginosa MDRO(AA) JES 07/22/2025 10:21 AM [facility] ([facility])Specimen (Source)Anatomical Location / LateralityCollection Method / VolumeCollection TimeReceived TimeUrine Urine specimen obtained by clean catch procedure / UnknownNon-blood Collection / Nlqqijk7907/20/2025 2:37 PM EST07/20/2025 2:43 PM EST Narrative [facility] ([facility]) - 07/22/2025 10:21 AM EST OrganismAntibioticMethodSusceptibilityPseudomonas aeruginosa MDROCefepimeMIC 16 ug/ml: Resistant Pseudomonas aeruginosa MDROCiprofloxacinMIC 1 ug/ml: Intermediate Pseudomonas aeruginosa MDROLevofloxacinMIC 2 ug/ml: Intermediate Pseudomonas aeruginosa MDROMeropenemMIC 1 ug/ml: Susceptible Pseudomonas aeruginosa MDROPiperacillin + TazobactamMIC 32/4 ug/ml: Intermediate Pseudomonas aeruginosa MDROTobramycinMIC 8 ug/ml: Intermediate Comment:If piperacillin-tazobactam JES value is >16/4 ug/ml alternative therapy is recommended.Authorizing ProviderResult TypeResult StatusNic[facility] MICROBIOLOGY - GENERAL ORDERABLESFinal ResultPerforming OrganizationAddress City/State/ZIP CodePhone Number [facility] ([facility]) [address] [place] [address] * (ABNORMAL) Urinalysis microscopic with reflex culture (07/20/2025 2:37 PM EST) ComponentValueRef RangeTest MethodAnalysis TimePerformed AtPathologist SignatureRBC, UrineNone SeenNone Seen, 0-2 /HPF07/20/2025 3:19 PM [facility] ([facility])WBC, Urine>50(A)None Seen, 0-2 /HPF07/20/2025 3:19 PM EST [facility] ([facility])Squamous Epithelial, UrineNone SeenNone Seen, Occasional, Few /LPF109/20/2024 3:19 PM [facility] ([facility])Mucus, UrineOccasionalNone Seen, Occasional, Few /LPF109/20/2024 3:19 PM [facility] ([facility])WBC Clumps, UrinePresent(A)None Seen /HPF07/20/2025 3:19 PM [facility] ([facility])Specimen (Source)Anatomical Location / LateralityCollection Method / VolumeCollection TimeReceived TimeUrineUrine specimen obtained by clean catch procedure / UnknownNon-blood Collection / Rtgvfml7607/20/2025 2:37 PM EST07/20/2025 2:43 PM EST Narrative Authorizing ProviderResult TypeResult StatusNicole [facility] URINE ORDERABLESFinal ResultPerforming OrganizationAddressCity/State/ZIP CodePhone Number [facility] ([facility]) [address], [place] [id number] * (ABNORMAL) Urinalysis with reflex culture (07/20/2025 2:37 PM EST)Component ValueRef RangeTest MethodAnalysis TimePerformed AtPathologist SignatureColor, UrineYellowYellow, Light Yellow, Poqvdbfzi58/19/2025 3:19 PM [facility] ([facility])Clarity, UrineCloudy(A)Clear07/20/2025 3:19 PM [facility] ([facility])pH, Urine6.05.0 - 8.0 pH07/20/2025 3:19 PM [facility] ([facility])Leukocytes, UrineLarge(A)Lzlcgcpk92/19/2025 3:19 PM [facility] ([facility])Nitrite, LjqpbLdvotuxiMmtwjgzd18/19/2025 3:19 PM [facility] ([facility])Protein, UrineNegativeNegative mg/dL07/20/2025 3:19 PM [facility] ([facility])Glucose, UrineNormalNormal mg/dL07/20/2025 3:19 PM EST [facility] ([facility])Bilirubin, ZfvdaKazxhkrcXnkzphoj92/19/2025 3:19 PM [facility] ([facility])Specific [place], Urine<1.005(L)1.010 - 1.030 07/20/2025 3:19 PM [facility] ([facility])Ketones, UrineNegativeNegative mg/dL07/20/2025 3:19 PM [facility] ([facility])Blood, UrineNegative Dxtbokfl72/19/2025 3:19 PM [facility] ([facility])Urobilinogen, Urine NormalNormal mg/dL07/20/2025 3:19 PM [facility] ([facility])Specimen (Source)Anatomical Location / LateralityCollection Method / VolumeCollection TimeReceived TimeUrineUrine specimen obtained by clean catch procedure / UnknownNon-blood Collection / Duraffr7607/20/2025 2:37 PM EST07/20/2025 2:43 PM EST Narrative Authorizing ProviderResult TypeResult StatusNicole [facility] URINE ORDERABLESFinal ResultPerforming OrganizationAddressCity/State/ZIP CodePhone Number [facility] ([facility]) [address] [place] [address] * XR chest 1 view (07/20/2025 12:20 PM EST)Anatomical RegionLateralityModality ChestComputed RadiographySpecimen (Source)Anatomical Location / Laterality Collection Method / VolumeCollection TimeReceived Time07/20/2025 12:38 PM EST Impressions 07/20/2025 12:58 PM EST Similar bibasilar opacities which may represent atelectasis or pneumonia. Approved by:Beth Hauser07/20/2025 12:41 PM. I, Michel Valentine MD,have reviewed the image(s) and agree with the findings in this report. Electronically signed: Michel Valentine MD. Narrative 07/20/2025 12:58 PM EST XR CHEST 1 VIEW 07/20/2025 11:47 AM CLINICAL INDICATIONS: Cough COMPARISON: Chest radiograph 07/15/2025 FINDINGS: Upright AP view of the chest was obtained. Unchanged cardiomediastinal silhouette. No pneumothorax. Trace left pleural effusion. Bibasilar opacities, similar to prior. Procedure Note Michel Valentine MD - 07/20/2025 XR CHEST 1 VIEW 07/20/2025 11:47 AM CLINICAL INDICATIONS: Cough COMPARISON: Chest radiograph 07/15/2025 FINDINGS: Upright AP view of the chest was obtained. Unchanged cardiomediastinal silhouette. No pneumothorax. Trace leftpleural effusion. Bibasilar opacities, similar to prior. IMPRESSION: Similar bibasilar opacities which may represent atelectasis orpneumonia. Approved by:Beth Hauser07/20/2025 12:41 PM. I, Michel Valentine MD,have reviewed the image(s) and agree with the findingsin this report. Electronically signed: Michel Valentine MD. Authorizing ProviderResult TypeResult StatusBelen Fabian [facility] XR PROCEDURES Final Result * Rapid influenza A/B PCR (07/20/2025 11:21 AM EST)ComponentValueRef RangeTest MethodAnalysis TimePerformed AtPathologist SignatureRapid Influenza A PCR CjarloxsAumarcgj98/19/2025 12:11 PM [facility] ([facility])Rapid Influenza B SPKLietbowmUcgueelf95/19/2025 12:11 PM [facility] ([facility])Specimen (Source)Anatomical Location / LateralityCollection Method / VolumeCollection TimeReceived TimeSwabNasal structure / UnknownNon-blood Collection / Oukcenw6507/20/2025 11:21 AM EST07/20/2025 11:38 AM EST Narrative [facility] ([facility]) - 07/20/2025 12:11 PM EST Testing methodology utilizes isothermal nucleic acid amplification technology for the differential and qualitative detection of Influenza A and Influenza B viral nucleic acids. Authorizing ProviderResult TypeResult StatusFrank[facility] Caren [facility] MICROBIOLOGY - GENERAL ORDERABLESFinal ResultPerforming OrganizationAddressCity/State/ZIP Code Phone Number [facility] ([facility]) [address] [place] [address] * Blood culture, peripheral #2 (07/20/2025 10:55 AM EST)ComponentValueRef Range Test MethodAnalysis TimePerformed AtPathologist SignatureBlood CultureNo growth at 5 days JES 07/25/2025 12:01 PM [facility] ([facility])Specimen (Source)Anatomical Location / LateralityCollection Method / VolumeCollection TimeReceived TimeBlood Venous blood specimen / UnknownVenipuncture / Risrffk0207/20/2025 10:55 AM EST 07/20/2025 11:04 AM EST Narrative Authorizing ProviderResult TypeResult Statusjazmin [facility] MICROBIOLOGY - GENERAL ORDERABLESFinal ResultPerforming OrganizationAddress City/State/ZIP CodePhone Number [facility]) [address] [place] [id number] * Blood culture, peripheral #1 (07/20/2025 10:55 AM EST)ComponentValueRef Range Test MethodAnalysis TimePerformed AtPathologist SignatureBlood CultureNo growth at 5 days JES 07/25/2025 12:01 PM [facility] ([facility])Specimen (Source)Anatomical Location / LateralityCollection Method / VolumeCollection TimeReceived TimeBlood Venous blood specimen / UnknownVenipuncture / Imnxntd7307/20/2025 10:55 AM EST 07/20/2025 11:04 AM EST Narrative Authorizing ProviderResult TypeResult StatusMountainstar Healthcarechaparro [facility] MICROBIOLOGY - GENERAL ORDERABLESFinal ResultPerforming OrganizationAddress City/State/ZIP CodePhone Number [facility] ([facility]) [address] [place] [address] * (ABNORMAL) CK (07/20/2025 5:15 AM EST)ComponentValueRef RangeTest Method Analysis TimePerformed AtPathologist SignatureTotal CK<10.0(L)30.0 - 223.0 U/L 07/20/2025 5:46 PM [facility])Specimen (Source)Anatomical Location / LateralityCollection Method / VolumeCollection TimeReceived Time BloodVenous blood specimen / UnknownVenipuncture / Vfrteps8607/20/2025 5:15 AM EST07/20/2025 5:52 AM EST Narrative Authorizing ProviderResult TypeResult StatusPhilip Jones [facility] BLOOD ORDERABLESFinal ResultPerforming OrganizationAddressCity/State/ZIP CodePhone Number [facility]) [address] [place] [address] * Tacrolimus level (07/20/2025 5:15 AM EST)ComponentValueRef RangeTest Method Analysis TimePerformed AtPathologist SignatureTacrolimus Lvl8.85.0 - 20.0 ng/mL07/20/2025 10:18 AM [facility] ([facility])Comment:The [employer] ANALY[employer] Tacrolimus assay is a delayed one-step immunoassay for the quantitative determination of tacrolimus in human whole blood using the chemiluminescent microparticle immunoassay (CMIA) technology with flexible assay protocols, referred to as [employer].Specimen (Source)Anatomical Location / LateralityCollection Method / VolumeCollection TimeReceived TimeBloodVenous blood specimen / UnknownVenipuncture / Pqtqohf7707/20/2025 5:15 AM EST 07/20/2025 5:53 AM EST Narrative Authorizing ProviderResult TypeResult StatusKnicole Robin DELAB BLOOD ORDERABLES Final ResultPerforming OrganizationAddressCity/State/ZIP CodePhone Number [facility]) [address] [place] [address] * (ABNORMAL) Phosphorus (07/20/2025 5:15 AM EST)ComponentValueRef RangeTest MethodAnalysis TimePerformed AtPathologist SignaturePhosphorus2.0(L)2.5 - 5.0 mg/dL07/20/2025 6:17 AM [facility] ([facility])Specimen (Source) Anatomical Location / LateralityCollection Method / VolumeCollection Time Received TimeBloodVenous blood specimen / UnknownVenipuncture / Unknown 07/20/2025 5:15 AM EST07/20/2025 5:52 AM EST Narrative Authorizing ProviderResult TypeResult StatusKnicole Robin [facility] BLOOD ORDER[facility]LES Final ResultPerforming OrganizationAddressCity/State/ZIP CodePhone Number [facility]) [address] [place] [address] * (ABNORMAL) Magnesium (07/20/2025 5:15 AM EST)ComponentValueRef RangeTest MethodAnalysis TimePerformed AtPathologist SignatureMagnesium1.7(L)1.9 - 2.7 mg/dL07/20/2025 6:17 AM [facility])Specimen (Source) Anatomical Location / LateralityCollection Method / VolumeCollection Time Received TimeBloodVenous blood specimen / UnknownVenipuncture / Unknown 07/20/2025 5:15 AM EST07/20/2025 5:52 AM EST Narrative Authorizing ProviderResult TypeResult StatusKunal Lobito FAJARDO BLOOD ORDERABLES Final ResultPerforming OrganizationAddressCity/State/ZIP CodePhone Number [facility] ([facility]) [address] [place] [address] * (ABNORMAL) Comprehensive metabolic panel (07/20/2025 5:15 AM EST)Component ValueRef RangeTest MethodAnalysis TimePerformed AtPathologist SignatureSodium [id number] - 145 mmol/L109/20/2024 6:17 AM [facility] ([facility])Potassium 4.13.5 - 5.1 mmol/L109/20/2024 6:17 AM [facility] ([facility])Jvmtjgpj075 (H)98 - 107 mmol/L109/20/2024 6:17 AM [facility] ([facility])CO220(L)21 - 31 mmol/L109/20/2024 6:17 AM [facility] ([facility])Anion Dhh501 - 20 mmol/L109/20/2024 6:17 AM [facility] ([facility])BUN33(H)7 - 25 mg/dL 07/20/2025 6:17 AM [facility] ([facility])Creatinine1.220.70 - 1.30 mg/dL07/20/2025 6:17 AM [facility] ([facility])BUN/Creatinine Ratio27.0 07/20/2025 6:17 AM [facility] ([facility])Yeqftaa327(H)70 - 100 mg/dL 07/20/2025 6:17 AM [facility] ([facility])Calcium8.4(L)8.6 - 10.3 mg/dL 07/20/2025 6:17 AM [facility] ([facility])YKP5604 - 39 U/L109/20/2024 6:17 AM [facility] ([facility])ALT (SGPT)187 - 52 U/L109/20/2024 6:17 AM [facility] ([facility])Alkaline Hnnzplnkxfk59717 - 104 U/L109/20/2024 6:17 AM [facility] ([facility])Total Protein5.2(L)6.0 - 8.3 g/dL 07/20/2025 6:17 AM [facility] ([facility])Albumin3.53.5 - 5.7 g/dL 07/20/2025 6:17 AM [facility] ([facility])Total Bilirubin0.50.3 - 1.0 mg/dL07/20/2025 6:17 AM [facility] ([facility])eGFR63.8>60.0 mL/min/1.73m* 6:17 AM [facility] ([facility])Comment:[facility]???s estimated glomerular filtration rate (eGFR) will [...] TimeReceived TimeBloodVenous blood specimen / UnknownVenipuncture / Dbvogga5207/20/2025 5:15 AM EST07/20/2025 5:52 AM EST Narrative Authorizing ProviderResult TypeResult StatusKunal Lobito FAJARDO BLOOD ORDERABLES Final ResultPerforming OrganizationAddressCity/State/ZIP CodePhone Number [facility] ([facility]) [address] [place] [address] * (ABNORMAL) CBC (07/20/2025 5:15 AM EST)ComponentValueRef RangeTest Method Analysis TimePerformed AtPathologist SignatureAuto WBC21.21(H)4.00 - 10.60 10*3/uL07/20/2025 6:11 AM [facility] ([facility])RBC2.69(L)4.20 - 5.70 10*6/uL07/20/2025 6:11 AM [facility] ([facility])Hemoglobin9.0(L)13.0 - 17.0 g/dL07/20/2025 6:11 AM [facility] ([facility])Olnocizvji68.1(L)39.0 - 50.0 %07/20/2025 6:11 AM [facility] ([facility])NQQ963.5(H)82.0 - 98.0 fL07/20/2025 6:11 AM [facility] ([facility])MCH33.5(H)27.0 - 33.0 pg07/20/2025 6:11 AM [facility] ([facility])MCHC32.032.0 - 35.0 g/dL 07/20/2025 6:11 AM [facility] ([facility])RDW17.2(H)11.5 - 15.0 % 07/20/2025 6:11 AM [facility] ([facility])Vuxztidlx568464 - 400 10*3/uL 07/20/2025 6:11 AM [facility] ([facility])Specimen (Source)Anatomical Location / LateralityCollection Method / VolumeCollection TimeReceived Time BloodVenous blood specimen / UnknownVenipuncture / Bnwtbww6107/20/2025 5:15 AM EST07/20/2025 5:54 AM EST Narrative Authorizing ProviderResult TypeResult StatusKunal Lobito JOSEPHLAB BLOOD ORDERABLES Final ResultPerforming OrganizationAddressCity/State/ZIP CodePhone Number [facility]) [address] [phone] * (ABNORMAL) POCT glucose meter (07/19/2025 7:19 AM EST)ComponentValueRef Range Test MethodAnalysis TimePerformed AtPathologist SignatureGlucose VBB545(H)70 - 105 mg/dL07/19/2025 7:29 AM [facility] ([facility])Comment:jraiSpecimen (Source)Anatomical Location / LateralityCollection Method / VolumeCollection TimeReceived TimeBloodCapillary blood specimen / Vghvzlv2507/19/2025 7:19 AM EST 07/19/2025 7:29 AM EST Narrative [facility]) - 07/19/2025 7:29 AM EST Waived Testing in the ED is performed under the ED CLIA certificate #[id number]. Authorizing ProviderResult TypeResult StatusJayjay Robin MDLAB BLOOD ORDERABLES Final ResultPerforming OrganizationAddressCity/State/ZIP CodePhone Number [facility] ([facility]) [facility] [place] [address] * Tacrolimus level (07/19/2025 5:18 AM EST)ComponentValueRef RangeTest Method Analysis TimePerformed AtPathologist SignatureTacrolimus Lvl6.25.0 - 20.0 ng/mL07/19/2025 10:49 AM [facility] ([facility])Comment:The CM POLICY ANALYST Tacrolimus assay is a delayed one-step immunoassay for the quantitative determination of tacrolimus in human whole blood using the chemiluminescent microparticle immunoassay (CMIA) technology with flexible assay protocols, referred to as Chemiflex.Specimen (Source)Anatomical Location / LateralityCollection Method / VolumeCollection TimeReceived TimeBloodVenous blood specimen / UnknownVenipuncture / Oalkmvk9407/19/2025 5:18 AM EST 07/19/2025 5:42 AM EST Narrative Authorizing ProviderResult TypeResult StatusKcatarinol Lobito MDLAB BLOOD ORDERABLES Final ResultPerforming OrganizationAddressCity/State/ZIP CodePhone Number [facility]) [place] [address] * (ABNORMAL) Phosphorus (07/19/2025 5:18 AM EST)ComponentValueRef RangeTest MethodAnalysis TimePerformed AtPathologist SignaturePhosphorus2.2(L)2.5 - 5.0 mg/dL07/19/2025 6:14 AM [facility] ([facility])Specimen (Source) Anatomical Location / LateralityCollection Method / VolumeCollection Time Received TimeBloodVenous blood specimen / UnknownVenipuncture / Unknown 07/19/2025 5:18 AM EST07/19/2025 5:42 AM EST Narrative Authorizing ProviderResult TypeResult StatusKunal Lobito MDLAB BLOOD ORDERABLES Final ResultPerforming OrganizationAddressCity/State/ZIP CodePhone Number [facility] ([facility]) [place] [address] * (ABNORMAL) Magnesium (07/19/2025 5:18 AM EST)ComponentValueRef RangeTest MethodAnalysis TimePerformed AtPathologist SignatureMagnesium1.7(L)1.9 - 2.7 mg/dL07/19/2025 6:14 AM [facility] ([facility])Specimen (Source) Anatomical Location / LateralityCollection Method / VolumeCollection Time Received TimeBloodVenous blood specimen / UnknownVenipuncture / Unknown 07/19/2025 5:18 AM EST07/19/2025 5:42 AM EST Narrative Authorizing ProviderResult TypeResult StatusKunal Lobito FAJARDO BLOOD ORDERABLES Final ResultPerforming OrganizationAddressCity/State/ZIP CodePhone Number [facility] ([facility]) [address] [place] [address] * (ABNORMAL) Comprehensive metabolic panel (07/19/2025 5:18 AM EST)Component ValueRef RangeTest MethodAnalysis TimePerformed AtPathologist SignatureSodium 845379 - 145 mmol/L109/19/2024 6:14 AM [facility] ([facility])Potassium 4.23.5 - 5.1 mmol/L109/19/2024 6:14 AM [facility] ([facility])Utuuqjrg483 (H)98 - 107 mmol/L109/19/2024 6:14 AM [facility] ([facility])TJ89694 - 31 mmol/L109/19/2024 6:14 AM [facility] ([facility])Anion Ztl394 - 20 mmol/L109/19/2024 6:14 AM [facility] ([facility])BUN35(H)7 - 25 mg/dL 07/19/2025 6:14 AM [facility] ([facility])Creatinine1.37(H)0.70 - 1.30 mg/dL07/19/2025 6:14 AM [facility] ([facility])BUN/Creatinine Ratio25.5 07/19/2025 6:14 AM [facility] ([facility])Bbfypql405(H)70 - 100 mg/dL 07/19/2025 6:14 AM [facility] ([facility])Calcium8.2(L)8.6 - 10.3 mg/dL 07/19/2025 6:14 AM [facility] ([facility])JPP4936 - 39 U/L109/19/2024 6:14 AM [facility] ([facility])ALT (SGPT)187 - 52 U/L109/19/2024 6:14 AM [facility] ([facility])Alkaline Cjmrhwypqdw20754 - 104 U/L109/19/2024 6:14 AM [facility] ([facility])Total Protein5.0(L)6.0 - 8.3 g/dL 07/19/2025 6:14 AM [facility] ([facility])Albumin3.4(L)3.5 - 5.7 g/dL 07/19/2025 6:14 AM [facility] ([facility])Total Bilirubin0.40.3 - 1.0 mg/dL07/19/2025 6:14 AM [facility] ([facility])eGFR55.5(L)>60.0 mL/min/1.73m* 6:14 AM [facility] ([facility])Comment:[facility]???s estimated glomerular filtration rate (eGFR) will [...] TimeReceived TimeBloodVenous blood specimen / UnknownVenipuncture / Ovmhgyb6607/19/2025 5:18 AM EST07/19/2025 5:42 AM EST Narrative Authorizing ProviderResult TypeResult StatusKunal Lobito FAJARDO BLOOD ORDERABLES Final ResultPerforming OrganizationAddressCity/State/ZIP CodePhone Number [facility] ([facility]) [address] [place] [address] * (ABNORMAL) CBC (07/19/2025 5:18 AM EST)ComponentValueRef RangeTest Method Analysis TimePerformed AtPathologist SignatureAuto WBC13.15(H)4.00 - 10.60 10*3/uL07/19/2025 5:49 AM [facility] ([facility])RBC2.64(L)4.20 - 5.70 10*6/uL07/19/2025 5:49 AM [facility] ([facility])Hemoglobin8.8(L)13.0 - 17.0 g/dL07/19/2025 5:49 AM [facility] ([facility])Qqpjcfrhab34.3(L)39.0 - 50.0 %07/19/2025 5:49 AM [facility] ([facility])MRB743.4(H)82.0 - 98.0 fL07/19/2025 5:49 AM [facility] ([facility])MCH33.3(H)27.0 - 33.0 pg07/19/2025 5:49 AM [facility] ([facility])MCHC32.232.0 - 35.0 g/dL 07/19/2025 5:49 AM [facility] ([facility])RDW17.1(H)11.5 - 15.0 % 07/19/2025 5:49 AM [facility] ([facility])Lfpwccdtj855244 - 400 10*3/uL 07/19/2025 5:49 AM [facility] ([facility])Specimen (Source)Anatomical Location / LateralityCollection Method / VolumeCollection TimeReceived Time BloodVenous blood specimen / UnknownVenipuncture / Tgrnejx0007/19/2025 5:18 AM EST07/19/2025 5:42 AM EST Narrative Authorizing ProviderResult TypeResult StatusKunal Lobito FAJARDO BLOOD ORDERABLES Final ResultPerforming OrganizationAddressCity/State/ZIP CodePhone Number [facility] ([facility]) [address] [place] [address] * (ABNORMAL) Vitamin D 25 hydroxy (07/18/2025 5:32 AM EST)ComponentValueRef RangeTest MethodAnalysis TimePerformed AtPathologist SignatureVit D, 25-Yqkuboj57.0(L)30.0 - 80.0 ng/mL07/18/2025 1:13 PM [facility])Comment:>80.0 Toxicity possibleSpecimen (Source)Anatomical Location / LateralityCollection Method / VolumeCollection TimeReceived TimeBloodVenous blood specimen / UnknownVenipuncture / Tjhvryb3407/18/2025 5:32 AM EST07/18/2025 5:57 AM EST Narrative Authorizing ProviderResult TypeResult StatusWendy Lomeli [facility] BLOOD ORDERABLES Final ResultPerforming OrganizationAddressCity/State/ZIP CodePhone Number [facility]) [address] [place] [address] * PTH, intact (07/18/2025 5:32 AM EST)ComponentValueRef RangeTest MethodAnalysis TimePerformed AtPathologist KpreyjbbjTMO8710 - 88 pg/mL07/18/2025 11:43 AM [facility] ([facility])Specimen (Source)Anatomical Location / Laterality Collection Method / VolumeCollection TimeReceived TimeBloodVenous blood specimen / UnknownVenipuncture / Ltyiaip4807/18/2025 5:32 AM EST07/18/2025 5:57 AM EST Narrative Authorizing ProviderResult TypeResult StatusWendy Lomeli [facility] BLOOD ORDERABLES Final ResultPerforming OrganizationAddressCity/State/ZIP CodePhone Number [facility]) [address] [place] [address] * Tacrolimus level (07/18/2025 5:32 AM EST)ComponentValueRef RangeTest Method Analysis TimePerformed AtPathologist SignatureTacrolimus Lvl7.45.0 - 20.0 ng/mL07/18/2025 11:10 AM [facility])Comment:The CM POLICY ANALYST Tacrolimus assay is a delayed one-step immunoassay for the quantitative determination of tacrolimus in human whole blood using the chemiluminescent microparticle immunoassay (CMIA) technology with flexible assay protocols, referred to as Chemiflex.Specimen (Source)Anatomical Location / LateralityCollection Method / VolumeCollection TimeReceived TimeBloodVenous blood specimen / UnknownVenipuncture / Flrlcag1407/18/2025 5:32 AM EST 07/18/2025 5:59 AM EST Narrative Authorizing ProviderResult TypeResult StatusJayjay FAJARDO BLOOD ORDERABLES Final ResultPerforming OrganizationAddressCity/State/ZIP CodePhone Number [facility]) [address] [place] [address] * (ABNORMAL) Phosphorus (07/18/2025 5:32 AM EST)ComponentValueRef RangeTest MethodAnalysis TimePerformed AtPathologist SignaturePhosphorus2.4(L)2.5 - 5.0 mg/dL07/18/2025 6:35 AM [facility])Specimen (Source) Anatomical Location / LateralityCollection Method / VolumeCollection Time Received TimeBloodVenous blood specimen / UnknownVenipuncture / Unknown 07/18/2025 5:32 AM EST07/18/2025 5:57 AM EST Narrative Authorizing ProviderResult TypeResult StatusJayjay Robin MDLAB BLOOD ORDERABLES Final ResultPerforming OrganizationAddressCity/State/ZIP CodePhone Number [facility]) [address] [place] [address] * (ABNORMAL) Magnesium (07/18/2025 5:32 AM EST)ComponentValueRef RangeTest MethodAnalysis TimePerformed AtPathologist SignatureMagnesium1.8(L)1.9 - 2.7 mg/dL07/18/2025 6:35 AM [facility])Specimen (Source) Anatomical Location / LateralityCollection Method / VolumeCollection Time Received TimeBloodVenous blood specimen / UnknownVenipuncture / Unknown 07/18/2025 5:32 AM EST07/18/2025 5:57 AM EST Narrative Authorizing ProviderResult TypeResult StatusJayjay FAJARDO BLOOD ORDERABLES Final ResultPerforming OrganizationAddressCity/State/ZIP CodePhone Number [facility]) [address] [place] [address] * (ABNORMAL) Comprehensive metabolic panel (07/18/2025 5:32 AM EST)Component ValueRef RangeTest MethodAnalysis TimePerformed AtPathologist SignatureSodium 501351 - 145 mmol/L109/18/2024 6:35 AM [facility] ([facility])Potassium 4.03.5 - 5.1 mmol/L109/18/2024 6:35 AM [facility] ([facility])Iuvjauzz466 (H)98 - 107 mmol/L109/18/2024 6:35 AM [facility] ([facility])LZ93992 - 31 mmol/L109/18/2024 6:35 AM [facility] ([facility])Anion Gap97 - 20 mmol/L 07/18/2025 6:35 AM [facility] ([facility])BUN36(H)7 - 25 mg/dL07/18/2025 6:35 AM [facility] ([facility])Creatinine1.41(H)0.70 - 1.30 mg/dL 07/18/2025 6:35 AM [facility] ([facility])BUN/Creatinine Ratio25.5 07/18/2025 6:35 AM [facility] ([facility])Zsimzqf665(H)70 - 100 mg/dL 07/18/2025 6:35 AM [facility] ([facility])Calcium8.3(L)8.6 - 10.3 mg/dL 07/18/2025 6:35 AM [facility] ([facility])CFO2102 - 39 U/L109/18/2024 6:35 AM [facility] ([facility])ALT (SGPT)197 - 52 U/L109/18/2024 6:35 AM [facility] ([facility])Alkaline Vguqeecbvqy360(H)34 - 104 U/L109/18/2024 6:35 AM [facility] ([facility])Total Protein5.2(L)6.0 - 8.3 g/dL 07/18/2025 6:35 AM [facility] ([facility])Albumin3.63.5 - 5.7 g/dL 07/18/2025 6:35 AM [facility] ([facility])Total Bilirubin0.40.3 - 1.0 mg/dL07/18/2025 6:35 AM [facility] ([facility])eGFR53.6(L)>60.0 mL/min/1.73m* 6:35 AM [facility] ([facility])Comment:[facility]???s estimated glomerular filtration rate (eGFR) will [...] TimeReceived TimeBloodVenous blood specimen / UnknownVenipuncture / Dzoglkg1007/18/2025 5:32 AM EST07/18/2025 5:57 AM EST Narrative Authorizing ProviderResult TypeResult StatusKunal Lobito FAJARDO BLOOD ORDERABLES Final ResultPerforming OrganizationAddressCity/State/ZIP CodePhone Number [facility] ([facility]) [address] [place] [address] * (ABNORMAL) CBC (07/18/2025 5:32 AM EST)ComponentValueRef RangeTest Method Analysis TimePerformed AtPathologist SignatureAuto WBC13.61(H)4.00 - 10.60 10*3/uL07/18/2025 6:42 AM [facility] ([facility])RBC2.68(L)4.20 - 5.70 10*6/uL07/18/2025 6:42 AM [facility] ([facility])Hemoglobin8.9(L)13.0 - 17.0 g/dL07/18/2025 6:42 AM [facility] ([facility])Muepdtnubr50.0(L)39.0 - 50.0 %07/18/2025 6:42 AM [facility] ([facility])QJK756.7(H)82.0 - 98.0 fL07/18/2025 6:42 AM [facility] ([facility])MCH33.2(H)27.0 - 33.0 pg07/18/2025 6:42 AM [facility] ([facility])MCHC33.032.0 - 35.0 g/dL 07/18/2025 6:42 AM [facility] ([facility])RDW17.2(H)11.5 - 15.0 % 07/18/2025 6:42 AM [facility] ([facility])Gurrxzhri523553 - 400 10*3/uL 07/18/2025 6:42 AM [facility] ([facility])Specimen (Source)Anatomical Location / LateralityCollection Method / VolumeCollection TimeReceived Time BloodVenous blood specimen / UnknownVenipuncture / Yxthgfl9407/18/2025 5:32 AM EST07/18/2025 5:59 AM EST Narrative Authorizing ProviderResult TypeResult StatusKnicole Robin MDLAB BLOOD ORDERABLES Final ResultPerforming OrganizationAddressCity/State/ZIP CodePhone Number [facility] ([facility]) [address] [place] [address] * Single antigen class II (07/17/2025 12:17 PM EST)ComponentValueRef RangeTest MethodAnalysis TimePerformed AtPathologist SignatureTested [id number] 07/23/2025 2:42 PM [facility] TISSUE TYPING ([facility]AC)CommentsNo Class II donor specific antibody frwwjqkybl32/22/2025 2:42 PM [facility] TISSUE TYPING ([facility])Test MethodClass II Single Jcfiwmx1407/23/2025 2:42 PM [facility] TISSUE TYPING ([facility]AC)Comment:Class II Antigen MicrobeadsSigned BySigned by Abebe Stovall CHT([facility]) ALYSSA(ASCP), Medical Records Receptionist Transplant Yebmutbvfs03/22/2025 2:42 PM [facility])Specimen (Source)Anatomical Location / LateralityCollection Method / VolumeCollection TimeReceived TimeBloodVenous blood specimen / UnknownVenipuncture / Sjqtlfc6007/17/2025 12:17 PM EST 07/17/2025 12:22 PM EST Narrative Authorizing ProviderResult TypeResult StatusGrazyna Briseno [facility] BLOOD ORDERABLESFinal ResultPerforming OrganizationAddressCity/State/ZIP CodePhone Number [facility] TISSUE TYPING ([facility]) [address] [place] [address], * Single antigen class I (07/17/2025 12:17 PM EST)ComponentValueRef RangeTest MethodAnalysis TimePerformed AtPathologist SignatureTested [id number] 07/23/2025 2:42 PM [facility] TISSUE TYPING ([facility])Test MethodClass I Single Njgtchr4107/23/2025 2:42 PM [facility] TISSUE TYPING ([facility]AC)Signed BySigned by Abebe Stovall C[facility]) ALYSSA(ASCP), Medical Records Receptionist Transplant Ndmflodmdr25/22/2025 2:42 PM [facility] TISSUE TYPING (HISTOTRAC)Comment:Class I Antigen Microbeads CommentsNo Class I donor specific antibody dfjqsucrvk15/22/2025 2:42 PM EST [facility] TISSUE TYPING (HISTOTRAC)Specimen (Source)Anatomical Location / LateralityCollection Method / VolumeCollection TimeReceived TimeBloodVenous blood specimen / UnknownVenipuncture / Aefnxdz2607/17/2025 12:17 PM EST 07/17/2025 12:22 PM EST Narrative Authorizing ProviderResult TypeResult StatusJojazmin Briseno [facility] BLOOD ORDERABLESFinal ResultPerforming OrganizationAddressCity/State/ZIP CodePhone Number [facility] TISSUE TYPING (HISTOTRAC) [address] [place] [address], * BK virus, plasma, quantitative (07/17/2025 12:17 PM EST)ComponentValueRef RangeTest MethodAnalysis TimePerformed AtPathologist SignatureBK Virus Plasma InterpretationNot DetectedNot Hrrksjey55/22/2025 2:18 PM [facility]BK Virus QuantitationNot DetectedNot Detected copies/mL07/23/2025 2:18 PM [facility] ([facility])Comment: Method: BK virus was measured by quantitative polymerase chain reaction using a fluorescent hydrolysis probe targeting the polyomavirus BK WATCH DIAL MAKER-1 gene. The lower limit of quantitation of the assay is 500 copies of BK genome per milliliter of plasma orurine, and any detectable BK DNA below that level is reported as: Detected, <500 copies/ml. Serial BK virus measurement can be used to monitor disease activity. (Reference: Crystal de la o. J CLIN MICRO 2004; 42:2868-0423). This test was developed and its performance characteristics determined by the [facility]. It has not been approved by the [place] Food and Drug Administration. However, such approval is not required for clinical implementation, and test results have been shown to be clinicallyuseful. This laboratory is CAP accredited and CLIA certified to perform high complexity testing. BK Virus Quant LogNot DetectedNot Detected copies/mL07/23/2025 2:18 PM [facility] ([facility])Specimen (Source)Anatomical Location / LateralityCollection Method / VolumeCollection TimeReceived TimeBloodVenous blood specimen / Unknown Venipuncture / Rayukdn5807/17/2025 12:17 PM EST07/17/2025 12:25 PM EST Narrative Authorizing ProviderResult TypeResult StatusJordDoctors Hospital BLOOD ORDERABLESFinal ResultPerforming OrganizationAddressCity/State/ZIP CodePhone Number [facility] ([facility]) [address] [place] [address] * CMV DNA, quantitative, NAAT, plasma (07/17/2025 12:17 PM EST)ComponentValueRef RangeTest MethodAnalysis TimePerformed AtPathologist SignatureCMV Qnt by NAAT, Plasma IU/mLNot DetectedIU/mL07/19/2025 5:12 PM [facility])CMV Qnt by NAAT, Plasma log IU/mLNot Detectedlog IU/mL07/19/2025 5:12 PM [facility] ([facility])CMV Qnt by NAAT, Plasma InterpNot DetectedNot Gczcwzby75/18/2025 5:12 PM [facility] ([facility])Comment: INTERPRETIVE INFORMATION: CMV by Quantitative NAAT, Plasma The quantitative range of this test is 1.54 - 7.00 log IU/mL (34.5 - 10,000,000 IU/mL). An interpretation of Not Detected does not rule out the presence of inhibitors or CMV DNA concentration below the level of detection of the assay. Care should be taken in the interpretation of any single viral load determination. International standardization has improved comparability of assay results across laboratories, but discrepancies still exist due to commutability issues with the standard. Performed By: [facility] [address] [place] [address] [employer] Associate: Julián Wooten MD, PhD CLIA Number: [id number] Specimen (Source)Anatomical Location / LateralityCollection Method / Volume Collection TimeReceived TimeBloodVenous blood specimen / UnknownVenipuncture / Lnyilqt6707/17/2025 12:17 PM EST07/17/2025 12:25 PM EST Narrative Authorizing ProviderResult TypeResult StatusGrazyna Briseno [facility] BLOOD ORDERABLESFinal ResultPerforming OrganizationAddressMadison Health/State/ZIP CodePhone Number [facility] ([facility]) [address] [place] [address] * (ABNORMAL) Urine culture, routine (07/17/2025 12:12 PM EST)ComponentValueRef RangeTest MethodAnalysis TimePerformed AtPathologist SignatureUrine Culture >100,000 CFU/Ml Pseudomonas aeruginosa(A) JES 07/19/2025 1:00 PM [facility] ([facility])Specimen (Source)Anatomical Location / LateralityCollection Method / VolumeCollection TimeReceived TimeUrine Urine specimen obtained by clean catch procedure / UnknownNon-blood Collection / Jnmlslz9007/17/2025 12:12 PM EST07/17/2025 1:12 PM EST Narrative OrganismAntibioticMethodSusceptibilityPseudomonas aeruginosaCefepimeMIC 8 ug/ml: Susceptible Pseudomonas aeruginosaCiprofloxacinMIC 0.5 ug/ml: Susceptible Pseudomonas aeruginosaLevofloxacinMIC 2 ug/ml: Intermediate Pseudomonas aeruginosaMeropenemMIC 1 ug/ml: Susceptible Pseudomonas aeruginosaPiperacillin + TazobactamMIC 32/4 ug/ml: Intermediate Pseudomonas aeruginosaTobramycinMIC <=2 ug/ml: Susceptible Comment:If piperacillin-tazobactam JES value is >16/4 ug/ml alternative therapy is recommended.Authorizing ProviderResult TypeResult StatusJayjay FAJARDO MICROBIOLOGY - GENERAL ORDERABLESFinal ResultPerforming OrganizationAddress City/State/ZIP CodePhone Number [facility] ([facility]) [address] [place] [address] * (ABNORMAL) Urinalysis microscopic (07/17/2025 12:12 PM EST)ComponentValueRef RangeTest MethodAnalysis TimePerformed AtPathologist SignatureRBC, Urine0-2 None Seen, 0-2 /HPF07/17/2025 1:43 PM [facility] ([facility])WBC, Urine 6-10(A)None Seen, 0-2 /HPF07/17/2025 1:43 PM [facility] ([facility]) Squamous Epithelial, UrineNone SeenNone Seen, Occasional, Few /LPF109/17/2024 1:43 PM [facility] ([facility])Mucus, UrineOccasionalNone Seen, Occasional, Few /LPF109/17/2024 1:43 PM [facility] ([facility])Specimen (Source)Anatomical Location / LateralityCollection Method / VolumeCollection TimeReceived TimeUrineUrine specimen obtained by clean catch procedure / UnknownNon-blood Collection / Mwlgpxe9607/17/2025 12:12 PM EST07/17/2025 1:12 PM EST Narrative Authorizing ProviderResult TypeResult Statusjazmin [facility] URINE ORDERABLESFinal ResultPerforming OrganizationAddressCity/State/ZIP CodePhone Number [facility]) [address] [place] [address] * Creatinine, urine, random (07/17/2025 12:12 PM EST)ComponentValueRef RangeTest MethodAnalysis TimePerformed AtPathologist SignatureCreatinine, Ur53.026 - 299 mg/dL07/17/2025 1:53 PM [facility] ([facility])Specimen (Source) Anatomical Location / LateralityCollection Method / VolumeCollection Time Received TimeUrineUrine specimen obtained by clean catch procedure / Unknown Non-blood Collection / Sqjfgej5507/17/2025 12:12 PM EST07/17/2025 1:12 PM EST Narrative Authorizing ProviderResult TypeResult Statusjazmin HowardSaint [facility] URINE ORDERABLESFinal ResultPerforming OrganizationAddressCity/State/ZIP CodePhone Number [facility]) [address] [place] [address] * Protein, urine, random (07/17/2025 12:12 PM EST)ComponentValueRef RangeTest MethodAnalysis TimePerformed AtPathologist SignatureProtein, Ur25.6mg/dL 07/17/2025 1:53 PM [facility] ([facility])Comment:There are no established reference values for random urine specimens.Specimen (Source) Anatomical Location / LateralityCollection Method / VolumeCollection Time Received TimeUrineUrine specimen obtained by clean catch procedure / Unknown Non-blood Collection / Ynucylx5807/17/2025 12:12 PM EST07/17/2025 1:12 PM EST Narrative Authorizing ProviderResult TypeResult StatusJojazmin Briseno [facility] URINE ORDERABLESFinal ResultPerforming OrganizationAddressCity/State/ZIP CodePhone Number [facility] ([facility]) [address] [place] [address] * (ABNORMAL) Urinalysis (07/17/2025 12:12 PM EST)ComponentValueRef RangeTest MethodAnalysis TimePerformed AtPathologist SignatureColor, UrineLight-Yellow Colorless, Yellow, Light-Pvftkt0307/17/2025 1:42 PM [facility] ([facility])Clarity, WhurxNbzwjTycph10/16/2025 1:42 PM [facility] ([facility])pH, Urine7.05.0 - 8.0 pH07/17/2025 1:42 PM [facility] ([facility])Leukocytes, UrineModerate(A)Ujthxohp93/16/2025 1:42 PM [facility] ([facility])Nitrite, UrinePositive(A)Syumqqxn41/16/2025 1:42 PM EST [facility] ([facility])Protein, UrineNegativeNegative mg/dL07/17/2025 1:42 PM [facility] ([facility])Glucose, UrineNormalNormal mg/dL07/17/2025 1:42 PM [facility] ([facility])Bilirubin, UrineNegativeNegative 07/17/2025 1:42 PM [facility] ([facility])Specific M[place], Urine1.013 1.010 - 1.1979507/17/2025 1:42 PM [facility] ([facility])Ketones, Urine NegativeNegative mg/dL07/17/2025 1:42 PM [facility] ([facility])Blood, SdkelSpaugznfJdiuorxz55/16/2025 1:42 PM [facility] ([facility]) Urobilinogen, UrineNormalNormal mg/dL07/17/2025 1:42 PM [facility] ([facility])Specimen (Source)Anatomical Location / LateralityCollection Method / VolumeCollection TimeReceived TimeUrineUrine specimen obtained by clean catch procedure / UnknownNon-blood Collection / Xhkkgsn7807/17/2025 12:12 PM EST 07/17/2025 1:12 PM EST Narrative Authorizing ProviderResult TypeResult StatusGrazyna Briseno [facility] URINE ORDERABLESFinal ResultPerforming OrganizationAddressCity/State/ZIP CodePhone Number [facility]) [address] [place] [address] * Tacrolimus level (07/17/2025 5:01 AM EST)ComponentValueRef RangeTest Method Analysis TimePerformed AtPathologist SignatureTacrolimus Lvl8.55.0 - 20.0 ng/mL07/17/2025 11:38 AM [facility] ([facility])Comment:The CM POLICY ANALYST Tacrolimus assay is a delayed one-step immunoassay for the quantitative determination of tacrolimus in human whole blood using the chemiluminescent microparticle immunoassay (CMIA) technology with flexible assay protocols, referred to as Chemiflex.Specimen (Source)Anatomical Location / LateralityCollection Method / VolumeCollection TimeReceived TimeBloodVenous blood specimen / UnknownVenipuncture / Vabapht8007/17/2025 5:01 AM EST 07/17/2025 5:25 AM EST Narrative Authorizing ProviderResult TypeResult StatusJayjay Robin [facility] BLOOD ORDERABLES Final ResultPerforming OrganizationAddressCity/State/ZIP CodePhone Number [facility]) [address] [place] [address] * Phosphorus (07/17/2025 5:01 AM EST)ComponentValueRef RangeTest MethodAnalysis TimePerformed AtPathologist SignaturePhosphorus2.52.5 - 5.0 mg/dL07/17/2025 7:00 AM [facility])Specimen (Source)Anatomical Location / LateralityCollection Method / VolumeCollection TimeReceived TimeBloodVenous blood specimen / UnknownVenipuncture / Qxhnmvg7307/17/2025 5:01 AM EST07/17/2025 5:29 AM EST Narrative Authorizing ProviderResult TypeResult StatusJayjay FAJARDO BLOOD ORDERABLES Final ResultPerforming OrganizationAddressCity/State/ZIP CodePhone Number [facility] ([facility]) [address] [place] [address] * Magnesium (07/17/2025 5:01 AM EST)ComponentValueRef RangeTest MethodAnalysis TimePerformed AtPathologist SignatureMagnesium2.11.9 - 2.7 mg/dL07/17/2025 7:00 AM [facility] ([facility])Specimen (Source)Anatomical Location / LateralityCollection Method / VolumeCollection TimeReceived TimeBloodVenous blood specimen / UnknownVenipuncture / Dwditbz7407/17/2025 5:01 AM EST07/17/2025 5:29 AM EST Narrative Authorizing ProviderResult TypeResult StatusJayjay FAJARDO BLOOD ORDERABLES Final ResultPerforming OrganizationAddressCity/State/ZIP CodePhone Number [facility] ([facility]) [address] [place] [address] * (ABNORMAL) Comprehensive metabolic panel (07/17/2025 5:01 AM EST)Component ValueRef RangeTest MethodAnalysis TimePerformed AtPathologist SignatureSodium 188902 - 145 mmol/L109/17/2024 7:00 AM [facility] ([facility])Potassium 3.93.5 - 5.1 mmol/L109/17/2024 7:00 AM [facility] ([facility])Fbakhcej563 (H)98 - 107 mmol/L109/17/2024 7:00 AM [facility] ([facility])FK16326 - 31 mmol/L109/17/2024 7:00 AM [facility] ([facility])Anion Jvv179 - 20 mmol/L109/17/2024 7:00 AM [facility] ([facility])BUN41(H)7 - 25 mg/dL 07/17/2025 7:00 AM [facility] ([facility])Creatinine1.63(H)0.70 - 1.30 mg/dL07/17/2025 7:00 AM [facility] ([facility])BUN/Creatinine Ratio25.2 07/17/2025 7:00 AM [facility] ([facility])Rlyqook906(H)70 - 100 mg/dL 07/17/2025 7:00 AM [facility] ([facility])Calcium8.4(L)8.6 - 10.3 mg/dL 07/17/2025 7:00 AM [facility] ([facility])CBH9410 - 39 U/L109/17/2024 7:00 AM [facility] ([facility])ALT (SGPT)177 - 52 U/L109/17/2024 7:00 AM [facility] ([facility])Alkaline Zjhoywmhlds376(H)34 - 104 U/L109/17/2024 7:00 AM [facility] ([facility])Total Protein5.0(L)6.0 - 8.3 g/dL 07/17/2025 7:00 AM [facility] ([facility])Albumin3.73.5 - 5.7 g/dL 07/17/2025 7:00 AM [facility] ([facility])Total Bilirubin0.40.3 - 1.0 mg/dL07/17/2025 7:00 AM [facility] ([facility])eGFR45.0(L)>60.0 mL/min/1.73m* 7:00 AM [facility] ([facility])Comment:[facility]???s estimated glomerular filtration rate (eGFR) will [...] TimeReceived TimeBloodVenous blood specimen / UnknownVenipuncture / Dmuatyp5007/17/2025 5:01 AM EST07/17/2025 5:29 AM EST Narrative Authorizing ProviderResult TypeResult StatusKunal Lobito FAJARDO BLOOD ORDERABLES Final ResultPerforming OrganizationAddressCity/State/ZIP CodePhone Number [facility] ([facility]) [address] [place] [address] * (ABNORMAL) CBC (07/17/2025 5:01 AM EST)ComponentValueRef RangeTest Method Analysis TimePerformed AtPathologist SignatureAuto WBC13.62(H)4.00 - 10.60 10*3/uL07/17/2025 5:48 AM [facility] ([facility])RBC2.53(L)4.20 - 5.70 10*6/uL07/17/2025 5:48 AM [facility] ([facility])Hemoglobin8.6(L)13.0 - 17.0 g/dL07/17/2025 5:48 AM [facility] ([facility])Xrqzczaxva40.1(L)39.0 - 50.0 %07/17/2025 5:48 AM [facility] ([facility])MCV99.2(H)82.0 - 98.0 fL07/17/2025 5:48 AM [facility] ([facility])MCH34.0(H)27.0 - 33.0 pg 07/17/2025 5:48 AM [facility] ([facility])MCHC34.332.0 - 35.0 g/dL 07/17/2025 5:48 AM [facility] ([facility])RDW17.0(H)11.5 - 15.0 % 07/17/2025 5:48 AM [facility] ([facility])Ctcczjjim514303 - 400 10*3/uL 07/17/2025 5:48 AM [facility] ([facility])Specimen (Source)Anatomical Location / LateralityCollection Method / VolumeCollection TimeReceived Time BloodVenous blood specimen / UnknownVenipuncture / Qevgyja3307/17/2025 5:01 AM EST07/17/2025 5:29 AM EST Narrative Authorizing ProviderResult TypeResult StatusKunal Lobito MDLAB BLOOD ORDERABLES Final ResultPerforming OrganizationAddressCity/State/ZIP CodePhone Number [facility]) [place] [address] * Tacrolimus level (07/16/2025 5:08 AM EST)ComponentValueRef RangeTest Method Analysis TimePerformed AtPathologist SignatureTacrolimus Lvl7.25.0 - 20.0 ng/mL07/16/2025 9:43 AM [facility] ([facility])Comment:The CM POLICY ANALYST Tacrolimus assay is a delayed one-step immunoassay for the quantitative determination of tacrolimus in human whole blood using the chemiluminescent microparticle immunoassay (CMIA) technology with flexible assay protocols, referred to as Chemiflex.Specimen (Source)Anatomical Location / LateralityCollection Method / VolumeCollection TimeReceived TimeBloodVenous blood specimen / UnknownVenipuncture / Jmgrdfa0407/16/2025 5:08 AM EST 07/16/2025 5:19 AM EST Narrative Authorizing ProviderResult TypeResult StatusKunal Lobito MDLAB BLOOD ORDERABLES Final ResultPerforming OrganizationAddressCity/State/ZIP CodePhone Number [facility]) [place] [address] * Phosphorus (07/16/2025 5:08 AM EST)ComponentValueRef RangeTest MethodAnalysis TimePerformed AtPathologist SignaturePhosphorus4.02.5 - 5.0 mg/dL07/16/2025 5:46 AM [facility] ([facility])Specimen (Source)Anatomical Location / LateralityCollection Method / VolumeCollection TimeReceived TimeBloodVenous blood specimen / UnknownVenipuncture / Ivwgxru3207/16/2025 5:08 AM EST07/16/2025 5:19 AM EST Narrative Authorizing ProviderResult TypeResult StatusKunal Lobito MDLAB BLOOD ORDERABLES Final ResultPerforming OrganizationAddressCity/State/ZIP CodePhone Number [facility]) [place] [address] * (ABNORMAL) Magnesium (07/16/2025 5:08 AM EST)ComponentValueRef RangeTest MethodAnalysis TimePerformed AtPathologist SignatureMagnesium1.7(L)1.9 - 2.7 mg/dL07/16/2025 5:46 AM [facility] ([facility])Specimen (Source) Anatomical Location / LateralityCollection Method / VolumeCollection Time Received TimeBloodVenous blood specimen / UnknownVenipuncture / Unknown 07/16/2025 5:08 AM EST07/16/2025 5:19 AM EST Narrative Authorizing ProviderResult TypeResult StatusKunal Lobito FAJARDO BLOOD ORDERABLES Final ResultPerforming OrganizationAddressCity/State/ZIP CodePhone Number [facility] ([facility]) [address] [place] [address] * (ABNORMAL) Comprehensive metabolic panel (07/16/2025 5:08 AM EST)Component ValueRef RangeTest MethodAnalysis TimePerformed AtPathologist SignatureSodium 057911 - 145 mmol/L109/16/2024 5:46 AM [facility] ([facility])Potassium 3.83.5 - 5.1 mmol/L109/16/2024 5:46 AM [facility] ([facility])Eomyagli274 98 - 107 mmol/L109/16/2024 5:46 AM [facility] ([facility])HO90582 - 31 mmol/L109/16/2024 5:46 AM [facility] ([facility])Anion Imf491 - 20 mmol/L 07/16/2025 5:46 AM [facility] ([facility])BUN29(H)7 - 25 mg/dL07/16/2025 5:46 AM [facility] ([facility])Creatinine1.55(H)0.70 - 1.30 mg/dL 07/16/2025 5:46 AM [facility] ([facility])BUN/Creatinine Ratio18.7 07/16/2025 5:46 AM [facility] ([facility])Irnblfc068(H)70 - 100 mg/dL 07/16/2025 5:46 AM [facility] ([facility])Calcium8.5(L)8.6 - 10.3 mg/dL 07/16/2025 5:46 AM [facility] ([facility])IGX2758 - 39 U/L109/16/2024 5:46 AM [facility] ([facility])ALT (SGPT)227 - 52 U/L109/16/2024 5:46 AM [facility] ([facility])Alkaline Iurnkezrasg197(H)34 - 104 U/L109/16/2024 5:46 AM [facility] ([facility])Total Protein5.3(L)6.0 - 8.3 g/dL 07/16/2025 5:46 AM [facility] ([facility])Albumin4.03.5 - 5.7 g/dL 07/16/2025 5:46 AM [facility] ([facility])Total Bilirubin0.60.3 - 1.0 mg/dL07/16/2025 5:46 AM [facility] ([facility])eGFR47.9(L)>60.0 mL/min/1.73m* 5:46 AM [facility] ([facility])Comment:[facility]???s estimated glomerular filtration rate (eGFR) will [...] TimeReceived TimeBloodVenous blood specimen / UnknownVenipuncture / Itzdkpe0707/16/2025 5:08 AM EST07/16/2025 5:19 AM EST Narrative Authorizing ProviderResult TypeResult StatusKunal Lobito FAJARDO BLOOD ORDERABLES Final ResultPerforming OrganizationAddressCity/State/ZIP CodePhone Number [facility] ([facility]) [address] [place] [address] * (ABNORMAL) CBC (07/16/2025 5:08 AM EST)ComponentValueRef RangeTest Method Analysis TimePerformed AtPathologist SignatureAuto WBC10.354.00 - 10.60 10*3/uL07/16/2025 5:43 AM [facility] ([facility])RBC2.59(L)4.20 - 5.70 10*6/uL07/16/2025 5:43 AM [facility] ([facility])Hemoglobin8.6(L)13.0 - 17.0 g/dL07/16/2025 5:43 AM [facility] ([facility])Yvkckcwzfq35.8(L)39.0 - 50.0 %07/16/2025 5:43 AM [facility] ([facility])MCV99.6(H)82.0 - 98.0 fL07/16/2025 5:43 AM [facility] ([facility])MCH33.2(H)27.0 - 33.0 pg 07/16/2025 5:43 AM [facility] ([facility])MCHC33.332.0 - 35.0 g/dL 07/16/2025 5:43 AM [facility] ([facility])RDW16.8(H)11.5 - 15.0 % 07/16/2025 5:43 AM [facility] ([facility])Eahcloauw016468 - 400 10*3/uL 07/16/2025 5:43 AM [facility] ([facility])Specimen (Source)Anatomical Location / LateralityCollection Method / VolumeCollection TimeReceived Time BloodVenous blood specimen / UnknownVenipuncture / Pkxignh9207/16/2025 5:08 AM EST07/16/2025 5:19 AM EST Narrative Authorizing ProviderResult TypeResult StatusKunal Lobito JOSEPHLAB BLOOD ORDERABLES Final ResultPerforming OrganizationAddressCity/State/ZIP CodePhone Number [facility] ([facility]) [address] [place] [address] * XR chest 1 view (07/15/2025 1:41 PM EST)Anatomical RegionLateralityModality ChestComputed RadiographySpecimen (Source)Anatomical Location / Laterality Collection Method / VolumeCollection TimeReceived Time07/15/2025 1:47 PM EST Impressions 07/15/2025 1:48 PM EST Features of congestive heart failure. Electronically signed: Simone Cunningham MD. Narrative 07/15/2025 1:48 PM EST XR CHEST 1 VIEW 07/15/2025 1:23 PM CLINICAL INDICATIONS: Dyspnea. COMPARISON: 04/09/2025 FINDINGS: Heart size normal. Lungs are hyperinflated with congested lungs and effusions right more than left. Procedure Note Simone Cunningham MD - 07/15/2025 XR CHEST 1 VIEW 07/15/2025 1:23 PM CLINICAL INDICATIONS: Dyspnea. COMPARISON: 04/09/2025 FINDINGS: Heart size normal. Lungs are hyperinflated with congested lungsand effusions right more than left. IMPRESSION: Features of congestive heart failure. Electronically signed: Simone Cunningham MD. Authorizing ProviderResult TypeResult StatusKunal Lobito [facility] [place] PROCEDURESFinal Result * (ABNORMAL) CBC auto differential (07/15/2025 11:27 AM EST)ComponentValueRef RangeTest MethodAnalysis TimePerformed AtPathologist SignatureAuto WBC11.67(H) 4.00 - 10.60 10*3/uL07/15/2025 11:42 AM [facility] ([facility])RBC2.37 (L)4.20 - 5.70 10*6/uL07/15/2025 11:42 AM [facility] ([facility]) Hemoglobin8.0(L)13.0 - 17.0 g/dL07/15/2025 11:42 AM [facility] ([facility])Xyobpcqipn64.9(L)39.0 - 50.0 %07/15/2025 11:42 AM [facility] ([facility])QMH072.8(H)82.0 - 98.0 fL07/15/2025 11:42 AM [facility] ([facility])MCH33.8(H)27.0 - 33.0 pg07/15/2025 11:42 AM [facility] ([facility])MCHC33.532.0 - 35.0 g/dL07/15/2025 11:42 AM [facility] ([facility])RDW16.8(H)11.5 - 15.0 %07/15/2025 11:42 AM [facility] ([facility])Neutrophils %75.3(H)40.0 - 72.0 %07/15/2025 11:42 AM [facility] ([facility])Lymphocytes %14.3(L)20.0 - 45.0 %07/15/2025 11:42 AM [facility] ([facility])Monocytes %8.15.0 - 12.0 %07/15/2025 11:42 AM [facility] ([facility])Eosinophils %0.40.0 - 6.0 %07/15/2025 11:42 AM [facility] ([facility])Basophils %0.20.0 - 1.0 %07/15/2025 11:42 AM [facility] ([facility])Neutrophils Absolute8.78(H)1.60 - 7.60 10*3/uL07/15/2025 11:42 AM [facility] ([facility])Lymphocytes Absolute1.671.20 - 4.00 10*3/uL07/15/2025 11:42 AM [facility] ([facility])Monocytes Absolute0.95 0.10 - 1.00 10*3/07/15/2025 11:42 AM [facility] ([facility]) Eosinophils Absolute0.050.00 - 0.50 10*3/07/15/2025 11:42 AM [facility] ([facility])Basophils Absolute0.020.00 - 0.20 10*3/uL07/15/2025 11:42 AM [facility] ([facility])Mgvhyxxaz489820 - 400 10*3/uL07/15/2025 11:42 AM [facility] ([facility])nRBC %0.00 %07/15/2025 11:42 AM [facility] ([facility])Immature Granulocytes %1.7(H)0.0 - 1.0 %07/15/2025 11:42 AM [facility] ([facility])Immature Granulocytes Absolute0.200.00 - 0.20 10*3/uL07/15/2025 11:42 AM [facility] ([facility])Specimen (Source) Anatomical Location / LateralityCollection Method / VolumeCollection Time Received TimeBloodVenous blood specimen / UnknownVenipuncture / Unknown 07/15/2025 11:27 AM EST07/15/2025 11:32 AM EST Narrative Authorizing ProviderResult TypeResult StatusJayjay Robin MDLAB BLOOD ORDERABLES Final ResultPerforming OrganizationAddressCity/State/ZIP CodePhone Number [facility]) [address] [place] [address] * (ABNORMAL) Ferritin (07/15/2025 3:27 AM EST)ComponentValueRef RangeTest Method Analysis TimePerformed AtPathologist MarepatrnIalzgiol145.0(H)24.0 - 336.0 ng/mL07/15/2025 8:24 PM [facility])Specimen (Source) Anatomical Location / LateralityCollection Method / VolumeCollection Time Received TimeBloodVenous blood specimen / UnknownVenipuncture / Unknown 07/15/2025 3:27 AM EST07/15/2025 4:36 AM EST Narrative Authorizing ProviderResult TypeResult StatusJayjay FAJARDO BLOOD ORDERABLES Final ResultPerforming OrganizationAddressCity/State/ZIP CodePhone Number [facility]) [address] [place] [address] * (ABNORMAL) Iron and TIBC (07/15/2025 3:27 AM EST)ComponentValueRef RangeTest MethodAnalysis TimePerformed AtPathologist VvlukhwqvVeuh46(L)50 - 212 ug/dL 07/15/2025 11:07 AM [facility] ([facility])TIBC<91(L)250 - 450 ug/dL 07/15/2025 11:07 AM [facility])Iron Zeozribrpq97/14/2025 11:07 AM [facility] ([facility])Comment:Unable to CalculateUIBC<55.0(L) 155.0 - 355.0 ug/dL07/15/2025 11:07 AM [facility])Specimen (Source)Anatomical Location / LateralityCollection Method / VolumeCollection TimeReceived TimeBloodVenous blood specimen / UnknownVenipuncture / Unknown 07/15/2025 3:27 AM EST07/15/2025 4:36 AM EST Narrative Authorizing ProviderResult TypeResult StatusJayjay Robin MDLAB BLOOD ORDERABLES Final ResultPerforming OrganizationAddressCity/State/ZIP CodePhone Number [facility]) [address] [place] [address] * Tacrolimus level (07/15/2025 3:27 AM EST)ComponentValueRef RangeTest Method Analysis TimePerformed AtPathologist SignatureTacrolimus Lvl5.55.0 - 20.0 ng/mL07/15/2025 10:33 AM [facility] ([facility])Comment:The [employer] POLICY ANALYST Tacrolimus assay is a delayed one-step immunoassay for the quantitative determination of tacrolimus in human whole blood using the chemiluminescent microparticle immunoassay (CMIA) technology with flexible assay protocols, referred to as Chemiflex.Specimen (Source)Anatomical Location / LateralityCollection Method / VolumeCollection TimeReceived TimeBloodVenous blood specimen / UnknownVenipuncture / Pzufifp5507/15/2025 3:27 AM EST 07/15/2025 4:38 AM EST Narrative Authorizing ProviderResult TypeResult StatusKnicole Robin MDLAB BLOOD ORDERABLES Final ResultPerforming OrganizationAddressCity/State/ZIP CodePhone Number [facility]) [address] [place] [address] * Phosphorus (07/15/2025 3:27 AM EST)ComponentValueRef RangeTest MethodAnalysis TimePerformed AtPathologist SignaturePhosphorus3.02.5 - 5.0 mg/dL07/15/2025 5:06 AM [facility] ([facility])Specimen (Source)Anatomical Location / LateralityCollection Method / VolumeCollection TimeReceived TimeBloodVenous blood specimen / UnknownVenipuncture / Wspekcv9807/15/2025 3:27 AM EST07/15/2025 4:36 AM EST Narrative Authorizing ProviderResult TypeResult StatusKunatuan Crainv MDLAB BLOOD ORDERABLES Final ResultPerforming OrganizationAddressCity/State/ZIP CodePhone Number [facility] ([facility]) [address] [place] [address] * Magnesium (07/15/2025 3:27 AM EST)ComponentValueRef RangeTest MethodAnalysis TimePerformed AtPathologist SignatureMagnesium2.01.9 - 2.7 mg/dL07/15/2025 5:06 AM [facility] ([facility])Specimen (Source)Anatomical Location / LateralityCollection Method / VolumeCollection TimeReceived TimeBloodVenous blood specimen / UnknownVenipuncture / Bwqrdsc0607/15/2025 3:27 AM EST07/15/2025 4:36 AM EST Narrative Authorizing ProviderResult TypeResult StatusKunal Lobito JOSEPHLAB BLOOD ORDERABLES Final ResultPerforming OrganizationAddressCity/State/ZIP CodePhone Number [facility] ([facility]) [address] [place] [address] * (ABNORMAL) Comprehensive metabolic panel (07/15/2025 3:27 AM EST)Component ValueRef RangeTest MethodAnalysis TimePerformed AtPathologist SignatureSodium [id number] - 145 mmol/L109/15/2024 5:06 AM [facility] ([facility])Potassium 4.13.5 - 5.1 mmol/L109/15/2024 5:06 AM [facility] ([facility])Cwyfwntq133 (H)98 - 107 mmol/L109/15/2024 5:06 AM [facility] ([facility])ZV07759 - 31 mmol/L109/15/2024 5:06 AM [facility] ([facility])Anion Oqm400 - 20 mmol/L109/15/2024 5:06 AM [facility] ([facility])JBJ822 - 25 mg/dL 07/15/2025 5:06 AM [facility] ([facility])Creatinine1.300.70 - 1.30 mg/dL07/15/2025 5:06 AM [facility] ([facility])BUN/Creatinine Ratio17.7 07/15/2025 5:06 AM [facility] ([facility])Ovulicc5396 - 100 mg/dL 07/15/2025 5:06 AM [facility] ([facility])Calcium8.5(L)8.6 - 10.3 mg/dL 07/15/2025 5:06 AM [facility] ([facility])FHH7685 - 39 U/L109/15/2024 5:06 AM [facility] ([facility])ALT (SGPT)277 - 52 U/L109/15/2024 5:06 AM [facility] ([facility])Alkaline Ydmlockvzvh286(H)34 - 104 U/L109/15/2024 5:06 AM [facility] ([facility])Total Protein5.6(L)6.0 - 8.3 g/dL 07/15/2025 5:06 AM [facility] ([facility])Albumin4.53.5 - 5.7 g/dL 07/15/2025 5:06 AM [facility] ([facility])Total Bilirubin0.50.3 - 1.0 mg/dL07/15/2025 5:06 AM [facility] ([facility])eGFR59.1(L)>60.0 mL/min/1.73m* 5:06 AM [facility] ([facility])Comment:[facility]???s estimated glomerular filtration rate (eGFR) will [...] TimeReceived TimeBloodVenous blood specimen / UnknownVenipuncture / Rvqfrkb5007/15/2025 3:27 AM EST07/15/2025 4:36 AM EST Narrative Authorizing ProviderResult TypeResult StatusKunal Lobito FAJARDO BLOOD ORDERABLES Final ResultPerforming OrganizationAddressCity/State/ZIP CodePhone Number [facility] ([facility]) [address] [place] [address] * (ABNORMAL) CBC (07/15/2025 3:27 AM EST)ComponentValueRef RangeTest Method Analysis TimePerformed AtPathologist SignatureAuto WBC10.324.00 - 10.60 10*3/uL07/15/2025 4:50 AM [facility] ([facility])RBC2.03(L)4.20 - 5.70 10*6/uL07/15/2025 4:50 AM [facility] ([facility])Hemoglobin6.9(L)13.0 - 17.0 g/dL07/15/2025 4:50 AM [facility] ([facility])Tvmqvqiylv40.8(L)39.0 - 50.0 %07/15/2025 4:50 AM [facility] ([facility])VUG914.5(H)82.0 - 98.0 fL07/15/2025 4:50 AM [facility] ([facility])MCH34.0(H)27.0 - 33.0 pg07/15/2025 4:50 AM [facility] ([facility])MCHC33.232.0 - 35.0 g/dL 07/15/2025 4:50 AM [facility] ([facility])RDW16.7(H)11.5 - 15.0 % 07/15/2025 4:50 AM [facility] ([facility])Qppnnlavm189886 - 400 10*3/uL 07/15/2025 4:50 AM [facility] ([facility])Specimen (Source)Anatomical Location / LateralityCollection Method / VolumeCollection TimeReceived Time BloodVenous blood specimen / UnknownVenipuncture / Habdmdk0807/15/2025 3:27 AM EST07/15/2025 4:38 AM EST Narrative Authorizing ProviderResult TypeResult StatusKunal Lobito FAJARDO BLOOD ORDERABLES Final ResultPerforming OrganizationAddressCity/State/ZIP CodePhone Number [facility]) [address] [place] [address] * (ABNORMAL) SARS-CoV-2 PCR (07/14/2025 6:13 PM EST)ComponentValueRef RangeTest MethodAnalysis TimePerformed AtPathologist WythrwdlqUZOK-DoJ-7 PCRPositive(AA) Vthatdbo64/13/2025 6:40 PM [facility] ([facility])Specimen (Source) Anatomical Location / LateralityCollection Method / VolumeCollection Time Received TimeSwabNasal structure / UnknownNon-blood Collection / Unknown 07/14/2025 6:13 PM EST07/14/2025 6:17 PM EST Narrative [facility] ([facility]) - 07/14/2025 6:40 PM EST Testing methodology utilizes isothermal nucleic acid amplification technology for the differential and qualitative detection of SARS-CoV-2 viral nucleic acids. Authorizing ProviderResult TypeResult Mindy FAJARDO MICROBIOLOGY - GENERAL ORDERABLESFinal ResultPerforming OrganizationAddressCity/State/ZIP Code Phone Number [facility]) [address] [place] [address] * Tacrolimus level (07/14/2025 3:37 AM EST)ComponentValueRef RangeTest Method Analysis TimePerformed AtPathologist SignatureTacrolimus Lvl9.05.0 - 20.0 ng/mL07/14/2025 11:03 AM [facility])Comment:The [employer] POLICY ANALYST Tacrolimus assay is a delayed one-step immunoassay for the quantitative determination of tacrolimus in human whole blood using the chemiluminescent microparticle immunoassay (CMIA) technology with flexible assay protocols, referred to as Chemiflex.Specimen (Source)Anatomical Location / LateralityCollection Method / VolumeCollection TimeReceived TimeBloodVenous blood specimen / UnknownVenipuncture / Zybncrq6407/14/2025 3:37 AM EST 07/14/2025 3:52 AM EST Narrative Authorizing ProviderResult TypeResult StatusJayjay FAJARDO BLOOD ORDERABLES Final ResultPerforming OrganizationAddressCity/State/ZIP CodePhone Number [facility]) [address] [place] [address] * Phosphorus (07/14/2025 3:37 AM EST)ComponentValueRef RangeTest MethodAnalysis TimePerformed AtPathologist SignaturePhosphorus3.42.5 - 5.0 mg/dL07/14/2025 4:14 AM [facility] ([facility])Specimen (Source)Anatomical Location / LateralityCollection Method / VolumeCollection TimeReceived TimeBloodVenous blood specimen / UnknownVenipuncture / Rmgcbrv4807/14/2025 3:37 AM EST07/14/2025 3:52 AM EST Narrative Authorizing ProviderResult TypeResult StatusJayjay FAJARDO BLOOD ORDERABLES Final ResultPerforming OrganizationAddressCity/State/ZIP CodePhone Number [facility]) [address] [place] [address] * (ABNORMAL) Magnesium (07/14/2025 3:37 AM EST)ComponentValueRef RangeTest MethodAnalysis TimePerformed AtPathologist SignatureMagnesium1.7(L)1.9 - 2.7 mg/dL07/14/2025 4:14 AM [facility] ([facility])Specimen (Source) Anatomical Location / LateralityCollection Method / VolumeCollection Time Received TimeBloodVenous blood specimen / UnknownVenipuncture / Unknown 07/14/2025 3:37 AM EST07/14/2025 3:52 AM EST Narrative Authorizing ProviderResult TypeResult StatusJayjay FAJARDO BLOOD ORDERABLES Final ResultPerforming OrganizationAddressCity/State/ZIP CodePhone Number [facility]) [address] [place] [address] * (ABNORMAL) Comprehensive metabolic panel (07/14/2025 3:37 AM EST)Component ValueRef RangeTest MethodAnalysis TimePerformed AtPathologist SignatureSodium 861073 - 145 mmol/L109/14/2024 4:14 AM [facility] ([facility])Potassium 4.43.5 - 5.1 mmol/L109/14/2024 4:14 AM [facility] ([facility])Nfemqxkj593 (H)98 - 107 mmol/L109/14/2024 4:14 AM [facility] ([facility])MV66010 - 31 mmol/L109/14/2024 4:14 AM [facility] ([facility])Anion Jox322 - 20 mmol/L109/14/2024 4:14 AM [facility] ([facility])VMV582 - 25 mg/dL 07/14/2025 4:14 AM [facility] ([facility])Creatinine1.190.70 - 1.30 mg/dL07/14/2025 4:14 AM [facility] ([facility])BUN/Creatinine Ratio17.6 07/14/2025 4:14 AM [facility] ([facility])Tvmcdnl270(H)70 - 100 mg/dL 07/14/2025 4:14 AM [facility] ([facility])Calcium7.7(L)8.6 - 10.3 mg/dL 07/14/2025 4:14 AM [facility] ([facility])AST10(L)13 - 39 U/L109/14/2024 4:14 AM [facility] ([facility])ALT (SGPT)97 - 52 U/L109/14/2024 4:14 AM [facility] ([facility])Alkaline Uszzpfdjmpi7920 - 104 U/L109/14/2024 4:14 AM [facility] ([facility])Total Protein4.7(L)6.0 - 8.3 g/dL07/14/2025 4:14 AM [facility] ([facility])Albumin3.1(L)3.5 - 5.7 g/dL07/14/2025 4:14 AM [facility] ([facility])Total Bilirubin0.30.3 - 1.0 mg/dL 07/14/2025 4:14 AM [facility] ([facility])eGFR65.7>60.0 mL/min/1.73m*2 07/14/2025 4:14 AM [facility] ([facility])Comment:[facility]???s estimated glomerular filtration rate (eGFR) will [...] TimeBloodVenous blood specimen / Unknown Venipuncture / Qpdwyjv5707/14/2025 3:37 AM EST07/14/2025 3:52 AM EST Narrative Authorizing ProviderResult TypeResult StatusKunal Lobito FAJARDO BLOOD ORDERABLES Final ResultPerforming OrganizationAddressCity/State/ZIP CodePhone Number [facility] ([facility]) [address] [place] [address] * (ABNORMAL) CBC (07/14/2025 3:37 AM EST)ComponentValueRef RangeTest Method Analysis TimePerformed AtPathologist SignatureAuto WBC10.574.00 - 10.60 10*3/uL07/14/2025 3:58 AM [facility] ([facility])RBC2.29(L)4.20 - 5.70 10*6/uL07/14/2025 3:58 AM [facility] ([facility])Hemoglobin7.8(L)13.0 - 17.0 g/dL07/14/2025 3:58 AM [facility] ([facility])Bfnsoskerh59.5(L)39.0 - 50.0 %07/14/2025 3:58 AM [facility] ([facility])MAG105.6(H)82.0 - 98.0 fL07/14/2025 3:58 AM [facility] ([facility])MCH34.1(H)27.0 - 33.0 pg07/14/2025 3:58 AM [facility] ([facility])MCHC33.232.0 - 35.0 g/dL 07/14/2025 3:58 AM [facility] ([facility])RDW16.6(H)11.5 - 15.0 % 07/14/2025 3:58 AM [facility] ([facility])Qnkehixmt024285 - 400 10*3/uL 07/14/2025 3:58 AM [facility] ([facility])Specimen (Source)Anatomical Location / LateralityCollection Method / VolumeCollection TimeReceived Time BloodVenous blood specimen / UnknownVenipuncture / Ohrqwrw1307/14/2025 3:37 AM EST07/14/2025 3:52 AM EST Narrative Authorizing ProviderResult TypeResult StatusKnicole Robin MDLAB BLOOD ORDERABLES Final ResultPerforming OrganizationAddressCity/State/ZIP CodePhone Number [facility] ([facility]) [address] [place] [address] * Tacrolimus level (07/13/2025 8:48 PM EST)ComponentValueRef RangeTest Method Analysis TimePerformed AtPathologist SignatureTacrolimus Lvl5.95.0 - 20.0 ng/mL07/14/2025 11:03 AM [facility] ([facility])Comment:The [employer] POLICY ANALYST Tacrolimus assay is a delayed one-step immunoassay for the quantitative determination of tacrolimus in human whole blood using the chemiluminescent microparticle immunoassay (CMIA) technology with flexible assay protocols, referred to as Chemiflex.Specimen (Source)Anatomical Location / LateralityCollection Method / VolumeCollection TimeReceived TimeBloodVenous blood specimen / UnknownVenipuncture / Cboefxf1307/13/2025 8:48 PM EST 07/13/2025 8:58 PM EST Narrative Authorizing ProviderResult TypeResult StatusKnicole Robin MDLAB BLOOD ORDERABLES Final ResultPerforming OrganizationAddressty/State/ZIP CodePhone Number [facility] ([facility]) [address] [place] [address] * Phosphorus (07/13/2025 8:48 PM EST)ComponentValueRef RangeTest MethodAnalysis TimePerformed AtPathologist SignaturePhosphorus3.42.5 - 5.0 mg/dL07/13/2025 9:20 PM [facility] ([facility])Specimen (Source)Anatomical Location / LateralityCollection Method / VolumeCollection TimeReceived TimeBloodVenous blood specimen / UnknownVenipuncture / Vijiovp2507/13/2025 8:48 PM EST07/13/2025 8:59 PM EST Narrative Authorizing ProviderResult TypeResult StatusKunal Lobito MDLAB BLOOD ORDERABLES Final ResultPerforming OrganizationAddressCity/State/ZIP CodePhone Number [facility] ([facility]) [address] [place] [address] * (ABNORMAL) Magnesium (07/13/2025 8:48 PM EST)ComponentValueRef RangeTest MethodAnalysis TimePerformed AtPathologist SignatureMagnesium1.7(L)1.9 - 2.7 mg/dL07/13/2025 9:20 PM [facility] ([facility])Specimen (Source) Anatomical Location / LateralityCollection Method / VolumeCollection Time Received TimeBloodVenous blood specimen / UnknownVenipuncture / Unknown 07/13/2025 8:48 PM EST07/13/2025 8:59 PM EST Narrative Authorizing ProviderResult TypeResult StatusKunatuan FAJARDO BLOOD ORDERABLES Final ResultPerforming OrganizationAddressCity/State/ZIP CodePhone Number [facility] ([facility]) [address] [place] [address] * (ABNORMAL) Comprehensive metabolic panel (07/13/2025 8:48 PM EST)Component ValueRef RangeTest MethodAnalysis TimePerformed AtPathologist SignatureSodium 189421 - 145 mmol/L109/13/2024 9:20 PM [facility] ([facility])Potassium 4.63.5 - 5.1 mmol/L109/13/2024 9:20 PM [facility] ([facility])Jkogxjoj427 (H)98 - 107 mmol/L109/13/2024 9:20 PM [facility] ([facility])NS33972 - 31 mmol/L109/13/2024 9:20 PM [facility] ([facility])Anion Yyv963 - 20 mmol/L109/13/2024 9:20 PM [facility] ([facility])RWL239 - 25 mg/dL 07/13/2025 9:20 PM [facility] ([facility])Creatinine1.260.70 - 1.30 mg/dL07/13/2025 9:20 PM [facility] ([facility])BUN/Creatinine Ratio17.5 07/13/2025 9:20 PM [facility] ([facility])Makapcc772(H)70 - 100 mg/dL 07/13/2025 9:20 PM [facility] ([facility])Calcium7.4(L)8.6 - 10.3 mg/dL 07/13/2025 9:20 PM [facility] ([facility])AEA4201 - 39 U/L109/13/2024 9:20 PM [facility] ([facility])ALT (SGPT)137 - 52 U/L109/13/2024 9:20 PM [facility] ([facility])Alkaline Shocfrstrwj05616 - 104 U/L109/13/2024 9:20 PM [facility] ([facility])Total Protein4.6(L)6.0 - 8.3 g/dL 07/13/2025 9:20 PM [facility] ([facility])Albumin2.5(L)3.5 - 5.7 g/dL 07/13/2025 9:20 PM [facility] ([facility])Total Bilirubin0.2(L)0.3 - 1.0 mg/dL07/13/2025 9:20 PM [facility] ([facility])eGFR61.4>60.0 mL/min/1.73m* 9:20 PM [facility] ([facility])Comment:[facility]???s estimated glomerular filtration rate (eGFR) will [...] TimeReceived TimeBloodVenous blood specimen / UnknownVenipuncture / Vqtdlet7707/13/2025 8:48 PM EST07/13/2025 8:59 PM EST Narrative Authorizing ProviderResult TypeResult StatusKunal Lobito FAJARDO BLOOD ORDERABLES Final ResultPerforming OrganizationAddressCity/State/ZIP CodePhone Number [facility] ([facility]) [address] [place] [address] * (ABNORMAL) CBC (07/13/2025 8:48 PM EST)ComponentValueRef RangeTest Method Analysis TimePerformed AtPathologist SignatureAuto WBC12.69(H)4.00 - 10.60 10*3/uL07/13/2025 9:11 PM [facility] ([facility])RBC2.80(L)4.20 - 5.70 10*6/uL07/13/2025 9:11 PM [facility] ([facility])Hemoglobin9.2(L)13.0 - 17.0 g/dL07/13/2025 9:11 PM [facility] ([facility])Gkrycsbpxt78.2(L)39.0 - 50.0 %07/13/2025 9:11 PM [facility] ([facility])ADG653.7(H)82.0 - 98.0 fL07/13/2025 9:11 PM [facility] ([facility])MCH32.927.0 - 33.0 pg 07/13/2025 9:11 PM [facility] ([facility])MCHC32.632.0 - 35.0 g/dL 07/13/2025 9:11 PM [facility] ([facility])RDW16.5(H)11.5 - 15.0 % 07/13/2025 9:11 PM [facility] ([facility])[id number] - 400 10*3/uL 07/13/2025 9:11 PM [facility] ([facility])Specimen (Source)Anatomical Location / LateralityCollection Method / VolumeCollection TimeReceived Time BloodVenous blood specimen / UnknownVenipuncture / Txcurxl0607/13/2025 8:48 PM EST07/13/2025 8:58 PM EST Narrative Authorizing ProviderResult TypeResult StatusKunal Lobito FAJARDO BLOOD ORDERABLES Final ResultPerforming OrganizationAddressCity/State/ZIP CodePhone Number [facility] ([facility]) [address] [place] [address] documented in this encounter Visit Diagnoses Diagnosis S/P kidney transplant- Primary Kidney replaced by transplant S/P kidney transplant Kidney replaced by transplant Immunosuppressive management encounter following kidney transplant Encounter for long-term (current) use of other medications Encounter for aftercare following kidney transplant Hypocalcemia Vitamin D deficiency Transplant recipient Other specified organ or tissue replaced by transplant C. difficile colitis Decrease in appetite Immunosuppression Dehydration COVID-19 C. difficile diarrhea Intestinal infection due to clostridium difficile documented in this encounter Admitting Diagnoses Diagnosis S/P kidney transplant Kidney replaced by transplant documented in this encounter Administered Medications Medication OrderMAR ActionAction DateDoseRateSite acetaminophen (Tylenol) tablet 650 mg 650 mg, oral, Every 6 hours PRN, fever greater than or equal to 38 degrees Celsius, Starting on Wed07/20/25 at 1030, For 99 days Given07/20/2025 10:46 AM [id number] mg albumin human 25 % bottle 100 g 100 g, intravenous, at 60 mL/hr, 3 times daily, First dose on Wed07/13/25 at 2200, For 2 doses New 07/14/2025 12:17 PM NTH965 g60 mL/hrRate/Dose Kntmlz0907/14/2025 3:16 AM EST60 mL/hrNew 07/13/2025 10:59 PM TDN659 g60 mL/hr albumin human 25 % bottle 100 g 100 g, intravenous, at 60 mL/hr, 3 times daily, First dose (after last reorder) on Wed07/14/25 at 1600, For 2 doses New 07/14/2025 9:58 PM [id number] g60 mL/hrRate/Dose Eghxjs6407/14/2025 6:46 PM EST 60 mL/hrRate/Dose Owjsjb5007/14/2025 3:46 PM EST60 mL/hr albuterol 2.5 mg /3 mL (0.083 %) nebulizer solution - ADS Override Pull Starting on Wed07/15/25 at 1348, For 1 dose, Created by cabinet override albuterol 2.5 mg /3 mL (0.083 %) nebulizer solution 2.5 mg 2.5 mg, nebulization, Once, On Wed07/15/25 at 1400, For 1 dose, Administer dose continuously over 1 hour. Given07/15/2025 2:00 PM EST2.5 mg albuterol 90 mcg/actuation inhaler 2 puff 2 puff, inhalation, Every 6 hours PRN, wheezing, from RT, Starting on Wed07/15/25 at 1319, For 99 days Given07/15/2025 1:27 PM EST2 puffs azaTHIOprine (Imuran) tablet 50 mg 50 mg, oral, Daily, First dose (after last modification) on Wed07/17/25 at 1115, For 94 doses, On hold since Wed07/20/2025 at 1150 until manually unheld Given07/20/2025 10:47 AM EST50 owTlxol2007/19/2025 11:31 AM EST50 mgGiven 07/18/2025 10:01 AM EST50 mg calcium carbonate-vitamin D3 500 mg-5 mcg (200 unit) per tablet 1 tablet 1 tablet, oral, Daily, First dose on Wed07/18/25 at 1300, For 99 days Given07/24/2025 9:11 AM EST1 xfgowoWbgzr41/22/2025 9:19 AM EST1 tabletGiven 07/22/2025 10:08 AM EST1 tablet carvedilol (Coreg) tablet 25 mg 25 mg, oral, 2 times daily with meals, First dose on Wed07/14/25 at 0800, For 99 days Given07/24/2025 9:12 AM EST25 usRwdmt1707/23/2025 4:11 PM EST25 rdNdeqn9707/23/2025 9:19 AM EST25 mg cefepime (Maxipime) 2 g in sodium chloride 0.9 % 50 mL IVPB 2 g, intravenous, Administer over 30 Minutes, Once, On Wed07/20/25 at 1100, For 1 dose, Mini-Bag Plus bag, Suspected Indication (Select all that apply): Bacteremia New Bag07/20/2025 2:45 PM EST2 g cefepime (Maxipime) 2 g in sodium chloride 0.9 % 50 mL IVPB 2 g, intravenous, Administer over 4 Hours, Every 8 hours, First dose on Wed07/20/25 at 2300, For 13 doses, Starting 8 hours after loading dose. Mini-Bag Plus bag, Suspected Indication (Select all that apply): Bacteremia New Bag07/23/2025 6:39 AM EST2 gNew Bag07/22/2025 11:06 PM EST2 gNew Bag 07/22/2025 6:16 PM EST2 g cholecalciferol (Vitamin D-3) tablet 5,000 Units 5,000 Units, oral, Daily, First dose on Lara 07/19/25 at 1215, For 99 days Given07/24/2025 9:11 AM EST5,000 AmjkzNuktp99/22/2025 9:19 AM EST5,000 Units Given07/22/2025 10:08 AM EST5,000 Units DAPTOmycin (Cubicin) 650 mg in sodium chloride 0.9 % 50 mL IVPB 650 mg (rounded from 636 mg = 8 mg/kg ?? 79.5 kg), intravenous, at 100 mL/hr, Administer over 30 Minutes, Once, On Wed07/20/25 at 1800, For 1 dose, BUD: 12 hours at room temp, Indication: Recommended by Infectious Disease Service [facility]07/20/2025 6:39 PM [id number] mg100 mL/hr DAPTOmycin (Cubicin) 650 mg in sodium chloride 0.9 % 50 mL IVPB 650 mg (rounded from 636 mg = 8 mg/kg ?? 79.5 kg), intravenous, at 100 mL/hr, Administer over 30 Minutes, Once, On Wed07/21/25 at 1300, For 1 dose, BUD: 12 hours at room temp, Indication: Recommended by Infectious Disease Service [facility]07/21/2025 1:40 PM [id number] mg100 mL/hr DAPTOmycin (Cubicin) 650 mg in sodium chloride 0.9 % 50 mL IVPB 650 mg (rounded from 636 mg = 8 mg/kg ?? 79.5 kg), intravenous, at 100 mL/hr, Administer over 30 Minutes, Every 24 hours, First dose (after last reorder) on Wed07/22/25 at 1400, For 3 doses, BUD: 12hours at room temp, Indication: Recommended by Infectious Disease Service [facility]07/24/2025 1:37 PM [id number] [facility]100 [facility]07/23/2025 4:14 PM ZYG383 mg 100 mL/hrNew [facility]07/22/2025 5:12 PM JCX581 mg100 mL/hr darbepoetin steve (Aranesp) injection (albumin free) 60 mcg 60 mcg (rounded from 60.525 mcg = 0.75 mcg/kg ?? 80.7 kg), subcutaneous, Once, On Wed07/16/25 at 0815, For 1 dose, Indications: ESRD on Dialysis, anemia Indications:ESRD on Dialysis,nmxrwoZyfgm37/15/2025 11:38 AM EST60 mcgLeft Upper Abdomen darbepoetin steve (Aranesp) injection (albumin free) 60 mcg 60 mcg (rounded from 64.125 mcg = 0.75 mcg/kg ?? 85.5 kg), subcutaneous, Once, On Wed07/24/25 at 1030, For 1 dose, Indications: anemia Indications:ndacglSwtoz37/23/2025 11:07 AM EST60 mcgRight Lower Abdomen famotidine (Pepcid) tablet 20 mg 20 mg, oral, Nightly, First dose on Wed07/13/25 at 2200, For 99 days, Indication: Stress Ulcer Prophylaxis Given07/23/2025 10:01 PM EST20 qhEueih4307/22/2025 9:48 PM EST20 oqVbtbf5807/21/2025 10:33 PM EST20 mg fidaxomicin (Dificid) tablet 200 mg 200 mg, oral, 2 times daily, First dose on Wed07/18/25 at 1400, For 10 days, Episode (Specify): initial episode, non-severe (WBC < 15,000 and SCr < 1.5), Name of Infectious Disease Specialist:Belen Tai Given07/21/2025 9:42 AM SON436 kxRbaxp1107/20/2025 10:15 PM KKX725 mgGiven 07/20/2025 10:47 AM IWO915 mg finasteride (Proscar) tablet 5 mg 5 mg, oral, Daily, First dose on Wed07/13/25 at 2030, For 99 days, Do not crush, chew, or split. Given07/24/2025 9:11 AM EST5 xfVcqam6507/23/2025 9:20 AM EST5 xjMykrs2107/22/2025 10:08 AM EST5 mg furosemide (Lasix) injection 80 mg 80 mg, intravenous, Once, On Wed07/15/25 at 1400, For 1 dose, Administer undiluted IV push at a rate no greater than 20 mg/minute. Given07/15/2025 2:01 PM EST80 mg heparin (porcine) injection 5,000 Units 5,000 Units, subcutaneous, 2 times daily, First dose on Wed07/21/25 at 1300, For 99 days Given07/24/2025 9:10 AM EST5,000 UnitsRight Upper Arm (Back)Given07/23/2025 10:01 PM EST5,000 UnitsLeft Upper Arm (Back)Given07/23/2025 9:18 AM EST5,000 UnitsRight Upper Arm (Back) hydrALAZINE (Apresoline) tablet 100 mg 100 mg, oral, 3 times daily, First dose on Wed07/13/25 at 2200, For 99 days Given07/24/2025 9:11 AM BZM673 wkSdusm9807/23/2025 10:01 PM NNT554 mgGiven 07/23/2025 4:11 PM KAH321 mg ipratropium-albuteroL (Duo-Neb) 0.5-2.5 mg/3 mL nebulizer solution 3 mL 3 mL, nebulization, Once, On Wed07/15/25 at 1345, For 1 dose, For patients with wheezes 1: E ratio>1:2 Given07/15/2025 1:45 PM EST3 mL iron sucrose (Venofer) injection 200 mg 200 mg, intravenous, Once, On Wed07/24/25 at 1030, For 1 dose, Give undiluted IV Push over 2 to 5 minutes. Given07/24/2025 11:07 AM VYE296 mg lidocaine HCl (Xylocaine) 10 mg/mL (1 %) injection 5 mg 5 mg (0.5 mL), infiltration, As needed, for IV starts, Starting on Wed07/24/25 at 1200, For 1 day magnesium sulfate in D5W IVPB 1 g 1 g, intravenous, at 100 mL/hr, Administer over 1 Hours, Every 1 hour, First dose on Wed07/16/25 at 0930, For 2 doses, Magnesium 1.3-1.9 (total dose 2 g over 2 hours) New 07/16/2025 11:40 AM EST1 g100 mL/hrNew 07/16/2025 9:50 AM EST1 g100 mL/hr magnesium sulfate in D5W IVPB 1 g 1 g, intravenous, at 100 mL/hr, Administer over 1 Hours, Every 1 hour, First dose on Wed07/19/25 at 0830, For 2 doses, Magnesium 1.3-1.9 (total dose 2 g over 2 hours) 07/19/2025 11:00 AM EST1 g100 mL/hrNew 07/19/2025 8:44 AM EST1 g100 mL/hr magnesium sulfate in D5W IVPB 1 g 1 g, intravenous, at 100 mL/hr, Administer over 1 Hours, Every 1 hour, First dose on Wed07/23/25 at 0915, For 4 doses, Magnesium 1.3-1.9 (total dose 2 g over 2 hours) 07/23/2025 2:51 PM EST1 g100 mL/hrNew 07/23/2025 1:02 PM EST1 g100 mL/hrNew 07/23/2025 11:42 AM EST1 g100 mL/hr megestrol (Megace) suspension 800 mg 800 mg, oral, Daily, First dose on Wed07/15/25 at 1100, For 99 days, SHAKE WELL Given07/22/2025 10:09 AM VEE214 rtRfymm9507/21/2025 9:42 AM AKM367 mgGiven 07/20/2025 10:48 AM FTX543 mg melatonin tablet 5 mg 5 mg, oral, Nightly PRN, sleep, Starting on Wed07/13/25 at 2009, For 99 days Given07/21/2025 10:33 PM EST5 mg methylPREDNISolone sod suc(PF) (SOLU-Medrol) 125 mg/2 mL injection - ADS Override Pull Starting on Wed07/15/25 at 1350, For 1 dose, Created by cabinet override If powder-only vial dispensed, reconstitute with 2 mL Sterile Water for Injection for a concentration of 125mg/2mL. methylPREDNISolone sod suc(PF) (SOLU-Medrol) 125 mg/2 mL injection 125 mg 125 mg, intravenous, Once, On Wed07/15/25 at 1400, For 1 dose, If powder-only vial dispensed, reconstitute with 2 mL Sterile Water for Injection for a concentration of 125mg/2mL. Given07/15/2025 1:53 PM PXQ567 mg NIFEdipine XL (Procardia XL) 24 hr tablet 30 mg 30 mg, oral, Daily, First dose on Wed07/13/25 at 2030, For 99 days, Do not crush, chew, or split. Given07/24/2025 9:11 AM EST30 trUdcns1507/23/2025 9:20 AM EST30 aeEfcib5407/22/2025 10:09 AM EST30 mg nystatin (Mycostatin) 100,000 unit/mL suspension 500,000 Units 500,000 Units (5 mL), Swish & Swallow, 4 times daily, First dose on Wed07/16/25 at 1545, For 5days Given07/21/2025 9:42 AM NDD707,000 AkbgpCjiey78/19/2025 10:15 PM FLZ262,000 TtsshPvrlq66/19/2025 5:40 PM DQW441,000 Units ondansetron HCl (PF) (Zofran) injection 4 mg 4 mg, intravenous, Every 6 hours PRN, nausea, vomiting, Starting on Wed07/13/25 at 2009, For 99 days, Give IV if patient is unable to take orally. Administer as an IV push over 2 to 5 minutes. ondansetron ODT (Zofran-ODT) disintegrating tablet 4 mg 4 mg, oral, Every 8 hours PRN, nausea, vomiting, Starting on Wed07/13/25 at 2009, For 99 days Oxygen Therapy Routine, Device: Nasal Cannula, Flow in liters per minute: 1 Lpm, Titrate O2 Saturation to be Above: 88% pantoprazole (ProtoNix) EC tablet 40 mg 40 mg, oral, Daily before breakfast, First dose on Wed07/14/25 at 0730, For 99 days, Do not crush,chew, or split., Indication: Stress Ulcer Prophylaxis Given07/24/2025 7:00 AM EST40 gaZnllw8007/23/2025 6:39 AM EST40 hlWwkej2007/22/2025 6:39 AM EST40 mg predniSONE (Deltasone) tablet 10 mg 10 mg, oral, Daily, First dose on Wed07/13/25 at 2030, For 99 days Given07/20/2025 10:47 AM EST10 gyYpqdf1907/19/2025 11:18 AM EST10 mgGiven 07/18/2025 10:01 AM EST10 mg predniSONE (Deltasone) tablet 5 mg 5 mg, oral, Daily, First dose (after last modification) on Wed07/21/25 at 1000, For 91 doses Given07/24/2025 9:11 AM EST5 gzUljuv9507/23/2025 9:20 AM EST5 hvQrqhf7707/22/2025 10:08 AM EST5 mg sod phos di, mono-K phos mono (K Phos Neutral) tablet 1 tablet 1 tablet (250 mg), oral, 4 times daily, First dose on Wed07/24/25 at 1000, For 99 days, Each tablet contains 250 mg phosphorus, 298 mg sodium, 1.1 mEq potassium. Given07/24/2025 1:37 PM EST1 uwibmyGdpfv52/23/2025 9:10 AM EST1 tablet sod phos di, mono-K phos mono (K Phos Neutral) tablet 2 tablet 2 tablet (500 mg), oral, Every 4 hours, First dose on Wed07/20/25 at 0915, For 4 doses, Each tablet contains 250 mg phosphorus, 298 mg sodium, 1.1 mEq potassium. Given07/20/2025 10:15 PM EST2 pjtesiyXjbwp67/19/2025 5:40 PM EST2 tabletsGiven 07/20/2025 12:32 PM EST2 tablets sodium bicarbonate 75 mEq in sodium chloride 0.45 % 1,000 mL infusion 75 mL/hr, intravenous, Continuous, Starting on Wed07/20/25 at 1200, For 1 day Rate/Dose Kifqgg3907/21/2025 9:03 AM EST75 mL/hr75 mL/hrRate/Dose Snmdzo1207/21/2025 6:19 AM EST75 mL/hr75 mL/hrNew Bag07/21/2025 4:49 AM EST75 mL/hr75 mL/hr sodium bicarbonate 75 mEq in sodium chloride 0.45 % 1,000 mL infusion 75 mL/hr, intravenous, Continuous, Starting on Wed07/22/25 at 1015, For 1 day Rate/Dose Lkpzpi1307/23/2025 2:33 AM EST75 mL/hr75 mL/hrNew Bag07/23/2025 1:48 AM EST75 mL/hr75 mL/hrRate/Dose Fldmxt6007/23/2025 12:12 AM EST75 mL/hr75 mL/hr sodium bicarbonate 75 mEq in sodium chloride 0.45 % 1,000 mL infusion 75 mL/hr, intravenous, Continuous, Starting on Wed07/23/25 at 1145, For 1 day New 07/24/2025 6:56 AM EST75 mL/hr75 mL/hrRate/Dose Truqub9407/24/2025 4:13 AM EST75 mL/hr75 mL/hrRate/Dose Urqxnw5607/23/2025 10:19 PM EST75 mL/hr75 mL/hr sodium bicarbonate tablet 650 mg 650 mg, oral, 2 times daily, First dose on Wed07/20/25 at 1000, For 99 days Given07/24/2025 9:11 AM ZSV082 jdFyxjy2207/23/2025 10:01 PM UAQ102 mgGiven 07/23/2025 9:20 AM YHS825 mg sodium bicarbonate tablet 650 mg 650 mg, oral, 2 times daily, First dose on Wed07/24/25 at 1130, For 99 days Given07/24/2025 11:54 AM IDO408 mg sodium chloride 0.9 % bolus 1,000 mL 1,000 mL, intravenous, at 250 mL/hr, Administer over 4 Hours, Once, On Wed07/17/25 at 1115, For 1 dose New 07/17/2025 12:14 PM EST1,000 mL250 mL/hr sodium chloride flush 10 mL 10 mL, intravenous, Every 8 hours PRN, line care, Starting on Wed07/13/25 at 2006, For 99 days sodium chloride flush 10 mL 10 mL, intravenous, Every 12 hours, First dose on Wed07/24/25 at 1215, For 99 days, Line care whennot receiving infusions. sodium chloride flush 10 mL 10 mL, intravenous, As needed, line care, before and after intermittent infusions, Starting on Wed07/24/25 at 1200, For 99 days sodium chloride flush 20 mL 20 mL, intravenous, As needed, line care, after each lab draw, Starting on Wed07/24/25 at 1200, For 99 days sulfamethoxazole-trimethoprim (Bactrim DS) 800-160 mg per tablet 1 tablet 1 tablet, oral, 3 times weekly (Once per day on Wednesday), First dose on Wed07/13/25 at 2030, For 3 days, Suspected Indication (Select all that apply): Medical Prophylaxis Given07/13/2025 8:57 PM EST1 tablet sulfamethoxazole-trimethoprim (Bactrim DS) 800-160 mg per tablet 160 mg 160 mg (160 mg of trimethoprim), oral, 3 times weekly (Once per day on Wednesday), First dose on Wed07/16/25 at 1600, Suspected Indication (Select all that apply): Medical Prophylaxis Given07/23/2025 9:20 AM TYR515 kvNubcg3807/20/2025 10:47 AM LKV760 mgGiven 07/18/2025 10:01 AM IJO710 mg tacrolimus ER (Envarsus XR) tablet ER 4 mg 4 mg, oral, Daily, First dose on Wed07/13/25 at 2030, For 99 days, Do not crush, chew, or split. [facility] policy requires tacrolimus extended-release (Astragraf XL, Envarsus XR) to be administered at 6 AM. Do not change the start times without notifying the provider. Given07/24/2025 9:10 AM EST4 znBwpat3907/23/2025 9:20 AM EST4 uzHlaek2107/22/2025 10:09 AM EST4 mg tamsulosin (Flomax) 24 hr capsule 0.8 mg 0.8 mg, oral, Daily, First dose on Wed07/13/25 at 2030, For 99 days, Do not crush, chew, or split. Given07/24/2025 9:11 AM EST0.8 cfYdafh4507/23/2025 9:19 AM EST0.8 mgGiven 07/22/2025 10:09 AM EST0.8 mg valGANciclovir (Valcyte) tablet 450 mg 450 mg, oral, Daily, First dose on Wed07/13/25 at 2030, For 103 doses, Do not crush, chew, or split., Coverage: Varicella zoster, Infection Site: Prophylaxis Given07/16/2025 10:09 AM SQJ638 vfHaixc7407/15/2025 10:21 AM IVM866 mgGiven 07/14/2025 11:00 AM BLJ214 mg vancomycin (Vancocin) capsule 125 mg 125 mg, oral, 4 times daily, First dose on Wed07/13/25 at 2200, For 21 doses, Episode (Specify): initial episode, non-severe (WBC < 15,000 and SCr < 1.5) Given07/18/2025 10:01 AM FHZ717 hkQpbtr2107/17/2025 10:29 PM RHF105 mgGiven 07/17/2025 5:04 PM NID550 mgdocumented in this encounter Active and Recently Administered Medications Times are shown in EST.Medication Order/ azaTHIOprine (Imuran) tablet 50 mg 50 mg, oral, Daily, First dose (after last modification) on Wed07/17/25 at 1115, For 94 doses, On hold since Wed07/20/2025 at 1150 until manually unheld * 1000 (Dose Auto Held - Provider: Grazyna Briseno CNP) * 1000 (Dose Auto Held - Provider: Grazyna Briseno CNP) * 1000 (Dose Auto Held - Provider: Grazyna Briseno CNP) * 1853 (Unheld by provider - Provider: Automatic Discharge Provider) calcium carbonate-vitamin D3 500 mg-5 mcg (200 unit) per tablet 1 tablet 1 tablet, oral, Daily, First dose on Wed07/18/25 at 1300, For 99 days * 1008 (Given - Provider: Kellee Roberts RN) * 0919 (Given - Provider: Kellee Roberts RN) * 0911 (Given - Provider: Estella Barry, RN) carvedilol (Coreg) tablet 25 mg 25 mg, oral, 2 times daily with meals, First dose on Wed07/14/25 at 0800, For 99 days * 1008 (Given - Provider: Kellee Roberts RN) * 1719 (Given - Provider: Kellee Roberst, RN) * 0919 (Given - Provider: Kellee Roberts, RN) * 1611 (Given - Provider: Kellee Roberts, RN) * 0912 (Given - Provider: Estella Barry, RN) * 1700 (Canceled Entry - Provider: Automatic Discharge Provider - Comment: Automatically canceled at discontinue of medication order) cefepime (Maxipime) 2 g in sodium chloride 0.9 % 50 mL IVPB (CANCELED)(Linked Group 1) 2 g, intravenous, Administer over 4 Hours, Every 8 hours, First dose on Wed07/20/25 at 2300, For 13 doses, Starting 8 hours after loading dose. Mini-Bag Plus bag, Suspected Indication (Select all that apply): Bacteremia * 0234 (Stopped - Provider: Gloria Rolon RN) * 0639 (New Bag - Provider: Gloria Rolon RN) * 1039 (Stopped - Provider: Kellee Roberts RN) * 1816 (New Bag - Provider: Kellee Roberts RN - Comment: needed second iv access) * 2216 (Stopped - Provider: Michel Parsons RN) * 2306 (New Bag - Provider: Michel Parsons RN) * 0306 (Stopped - Provider: Michel Parsons, RN) * 0639 (New Bag - Provider: Michel Parsons, RN) * 0900 (Stopped - Provider: Kellee Roberts RN) cholecalciferol (Vitamin D-3) tablet 5,000 Units 5,000 Units, oral, Daily, First dose on Lara 07/19/25 at 1215, For 99 days * 1008 (Given - Provider: Kellee Roberts RN) * 0919 (Given - Provider: Kellee Roberts RN) * 0911 (Given - Provider: Estella Barry, JUANA) DAPTOmycin (Cubicin) 650 mg in sodium chloride 0.9 % 50 mL IVPB (COMPLETED) 650 mg (rounded from 636 mg = 8 mg/kg ?? 79.5 kg), intravenous, at 100 mL/hr, Administer over 30 Minutes, Every 24 hours, First dose (after last reorder) on 07/22/25 at 1400, For 3 doses, BUD: 12hours at room temp, Indication: Recommended by Infectious Disease Service * 1712 (New Bag - Provider: Kellee Roberts RN - Comment: need iv) * 1742 (Stopped - Provider: Kellee Roberts RN) * 1614 (New Bag - Provider: Kellee Roberts, JUANA) * 1644 (Stopped - Provider: Kellee Roberts, JUANA) * 1337 (New Bag - Provider: Estella Barry, RN) * 1407 (Stopped - Provider: Estella Barry, RN) darbepoetin steve (Aranesp) injection (albumin free) 60 mcg (COMPLETED) 60 mcg (rounded from 64.125 mcg = 0.75 mcg/kg ?? 85.5 kg), subcutaneous, Once, On Wed07/24/25 at 1030, For 1 dose, Indications: anemia * 1107 (Given - Provider: Estella Barry, JUANA) famotidine (Pepcid) tablet 20 mg 20 mg, oral, Nightly, First dose on Wed07/13/25 at 2200, For 99 days, Indication: Stress Ulcer Prophylaxis * 2148 (Given - Provider: Michel Parsons, JUANA) * 2201 (Given - Provider: Michel Parsons, JUANA) finasteride (Proscar) tablet 5 mg 5 mg, oral, Daily, First dose on Wed07/13/25 at 2030, For 99 days, Do not crush, chew, or split. * 1008 (Given - Provider: Kellee Roberts RN) * 0920 (Given - Provider: Kellee Roberts RN) * 0911 (Given - Provider: Estella Barry, JUANA) heparin (porcine) injection 5,000 Units 5,000 Units, subcutaneous, 2 times daily, First dose on Wed07/21/25 at 1300, For 99 days * 1008 (Given - Provider: Kellee Roberts RN) * 2148 (Given - Provider: Michel Parsons, JUANA) * 0918 (Given - Provider: Kellee Roberts, RN) * 2201 (Given - Provider: Michel Parsons, JUANA) * 0910 (Given - Provider: Estella Barry, RN) hydrALAZINE (Apresoline) tablet 100 mg 100 mg, oral, 3 times daily, First dose on Wed07/13/25 at 2200, For 99 days * 1008 (Given - Provider: Kellee Roberts RN) * 1719 (Given - Provider: Kellee Roberts, JUANA) * 2151 (Given - Provider: Michel Parsons, RN) * 0919 (Given - Provider: Kellee Roberts, RN) * 1611 (Given - Provider: Kellee Roberts, JUANA) * 2201 (Given - Provider: Michel Parsons, JUANA) * 0911 (Given - Provider: Estella Barry, JUANA) * 1600 (Canceled Entry - Provider: Automatic Discharge Provider - Comment: Automatically canceled at discontinue of medication order) iron sucrose (Venofer) injection 200 mg (COMPLETED) 200 mg, intravenous, Once, On Wed07/24/25 at 1030, For 1 dose, Give undiluted IV Push over 2 to 5 minutes. * 1107 (Given - Provider: Estella Barry, JUANA) magnesium sulfate in D5W IVPB 1 g (COMPLETED) 1 g, intravenous, at 100 mL/hr, Administer over 1 Hours, Every 1 hour, First dose on Wed07/23/25 at 0915, For 4 doses, Magnesium 1.3-1.9 (total dose 2 g over 2 hours) * 1038 (New Bag - Provider: Kellee Roberts RN - Comment: ABX finishing) * 1114 (Stopped - Provider: Kellee Roberts RN) * 1142 (New Bag - Provider: Kellee Roberts RN) * 1242 (Stopped - Provider: Kellee Roberts, RN) * 1302 (New Bag - Provider: Kellee Roberts, RN) * 1402 (Stopped - Provider: Kellee Roberts, RN) * 1451 (New Bag - Provider: Kellee Roberts, RN) * 1551 (Stopped - Provider: Kellee Roberts, RN) megestrol (Megace) suspension 800 mg (CANCELED) 800 mg, oral, Daily, First dose on Wed07/15/25 at 1100, For 99 days, SHAKE WELL * 1009 (Given - Provider: Kellee Roberts RN) NIFEdipine XL (Procardia XL) 24 hr tablet 30 mg 30 mg, oral, Daily, First dose on Wed07/13/25 at 2030, For 99 days, Do not crush, chew, or split. * 1009 (Given - Provider: Kellee Roberts RN) * 0920 (Given - Provider: Kellee Roberts RN) * 0911 (Given - Provider: Estella Barry, JUANA) Oxygen Therapy Routine, Device: Nasal Cannula, Flow in liters per minute: 1 Lpm, Titrate O2 Saturation to be Above: 88% pantoprazole (ProtoNix) EC tablet 40 mg 40 mg, oral, Daily before breakfast, First dose on Wed07/14/25 at 0730, For 99 days, Do not crush,chew, or split., Indication: Stress Ulcer Prophylaxis * 0639 (Given - Provider: Gloria Rolon RN) * 0639 (Given - Provider: Michel Parsons, JUANA) * 0700 (Given - Provider: Michel Parsons, JUANA) predniSONE (Deltasone) tablet 5 mg 5 mg, oral, Daily, First dose (after last modification) on Wed07/21/25 at 1000, For 91 doses * 1008 (Given - Provider: Kellee Roberts RN) * 0920 (Given - Provider: Kellee Roberts RN) * 0911 (Given - Provider: Estella Barry, JUANA) sod phos di, mono-K phos mono (K Phos Neutral) tablet 1 tablet 1 tablet (250 mg), oral, 4 times daily, First dose on Wed07/24/25 at 1000, For 99 days, Each tablet contains 250 mg phosphorus, 298 mg sodium, 1.1 mEq potassium. * 0910 (Given - Provider: Estella Barry, JUANA) * 1337 (Given - Provider: Estella Barry, JUANA) * 1800 (Canceled Entry - Provider: Automatic Discharge Provider - Comment: Automatically canceled at discontinue of medication order) sodium bicarbonate tablet 650 mg 650 mg, oral, 2 times daily, First dose on Wed07/20/25 at 1000, For 99 days * 1008 (Given - Provider: Kellee Roberts RN) * 2148 (Given - Provider: Michel Parsons, RN) * 0920 (Given - Provider: Kellee Roberts, JUANA) * 2201 (Given - Provider: Michel Parsons, RN) * 0911 (Given - Provider: Estella Barry, JUANA) sodium bicarbonate tablet 650 mg 650 mg, oral, 2 times daily, First dose on Wed07/24/25 at 1130, For 99 days * 1154 (Given - Provider: Estella Barry, JUANA) sodium chloride flush 10 mL 10 mL, intravenous, Every 12 hours, First dose on Wed07/24/25 at 1215, For 99 days, Line care whennot receiving infusions. * 1215 (Not Given - Provider: Estella Barry, JUANA - Reason: Other - Comment: given by PICC nurse) sulfamethoxazole-trimethoprim (Bactrim DS) 800-160 mg per tablet 160 mg 160 mg (160 mg of trimethoprim), oral, 3 times weekly (Once per day on Wednesday), First dose on Wed07/16/25 at 1600, Suspected Indication (Select all that apply): Medical Prophylaxis * 0920 (Given - Provider: Kellee Roberts RN) tacrolimus ER (Envarsus XR) tablet ER 4 mg 4 mg, oral, Daily, First dose on Wed07/13/25 at 2030, For 99 days, Do not crush, chew, or split. [facility] policy requires tacrolimus extended-release (Astragraf XL, Envarsus XR) to be administered at 6 AM. Do not change the start times without notifying the provider. * 1009 (Given - Provider: Kellee Roberts RN) * 0920 (Given - Provider: Kellee Roberts RN) * 0910 (Given - Provider: Estella Barry, RN) tamsulosin (Flomax) 24 hr capsule 0.8 mg 0.8 mg, oral, Daily, First dose on Wed07/13/25 at 2030, For 99 days, Do not crush, chew, or split. * 1009 (Given - Provider: Kellee Roberts RN) * 0919 (Given - Provider: Kellee Roberts RN) * 0911 (Given - Provider: Estella Barry, RN) Medication Order07/22/ sodium bicarbonate 75 mEq in sodium chloride 0.45 % 1,000 mL infusion () 75 mL/hr, intravenous, Continuous, Starting on Wed07/22/25 at 1015, For 1 day * 1159 (New Bag - Provider: Kellee Roberts RN) * 1828 (Rate/Dose Verify - Provider: Kellee Roberts RN) * 0012 (Rate/Dose Verify - Provider: Michel Parsons, RN) * 0148 (New Bag - Provider: Michel Parsons, JUANA) * 0233 (Rate/Dose Verify - Provider: Michel Parsons RN) * 1158 (Stopped - Provider: Kellee Roberts RN - Comment: [Order ends at this time. Document the following action when infusion is complete: Stopped]) sodium bicarbonate 75 mEq in sodium chloride 0.45 % 1,000 mL infusion 75 mL/hr, intravenous, Continuous, Starting on Wed07/23/25 at 1145, For 1 day * 1145 (Restarted - Provider: Kellee Roberts RN) * 1453 (Rate/Dose Verify - Provider: Kellee Roberts RN) * 1610 (New Bag - Provider: Kellee Roberts RN) * 2219 (Rate/Dose Verify - Provider: Michel Parsons RN) * 0413 (Rate/Dose Verify - Provider: Michel Parsons RN) * 0656 (New Bag - Provider: Michel Parsons RN) * 1144 (Stopped - Provider: Estella Barry RN - Comment: [Order ends at this time. Document the following action when infusion is complete: Stopped]) Medication Order acetaminophen (Tylenol) tablet 650 mg 650 mg, oral, Every 6 hours PRN, fever greater than or equal to 38 degrees Celsius, Starting on Wed07/20/25 at 1030, For 99 days albuterol 90 mcg/actuation inhaler 2 puff 2 puff, inhalation, Every 6 hours PRN, wheezing, from RT, Starting on Wed07/15/25 at 1319, For 99 days lidocaine HCl (Xylocaine) 10 mg/mL (1 %) injection 5 mg 5 mg (0.5 mL), infiltration, As needed, for IV starts, Starting on Wed07/24/25 at 1200, For 1 day melatonin tablet 5 mg 5 mg, oral, Nightly PRN, sleep, Starting on Wed07/13/25 at 2009, For 99 days ondansetron HCl (PF) (Zofran) injection 4 mg(Linked Group 2) 4 mg, intravenous, Every 6 hours PRN, nausea, vomiting, Starting on Wed07/13/25 at 2009, For 99 days, Give IV if patient is unable to take orally. Administer as an IV push over 2 to 5 minutes. ondansetron ODT (Zofran-ODT) disintegrating tablet 4 mg(Linked Group 2) 4 mg, oral, Every 8 hours PRN, nausea, vomiting, Starting on Wed07/13/25 at 2009, For 99 days sodium chloride flush 10 mL(Linked Group 3) 10 mL, intravenous, Every 8 hours PRN, line care, Starting on Wed07/13/25 at 2005, For 99 days sodium chloride flush 10 mL 10 mL, intravenous, As needed, line care, before and after intermittent infusions, Starting on Wed07/24/25 at 1200, For 99 days sodium chloride flush 20 mL 20 mL, intravenous, As needed, line care, after each lab draw, Starting on Wed07/24/25 at 1200, For 99 days Order Group 1: cefepime (Maxipime) 2 g in sodium chloride 0.9 % 50 mL IVPB (COMPLETED) 2 g, intravenous, Administer over 30 Minutes, Once, On Wed07/20/25 at 1100, For 1 dose, Mini-Bag Plus bag, Suspected Indication (Select all that apply): Bacteremia Followed by cefepime (Maxipime) 2 g in sodium chloride 0.9 % 50 mL IVPB (CANCELED)Jump to med 2 g, intravenous, Administer over 4 Hours, Every 8 hours, First dose on Wed07/20/25 at 2300, For 13 doses, Starting 8 hours after loading dose. Mini-Bag Plus bag, Suspected Indication (Select all that apply): Bacteremia Group 2: ondansetron ODT (Zofran-ODT) disintegrating tablet 4 mgJump to med 4 mg, oral, Every 8 hours PRN, nausea, vomiting, Starting on Wed07/13/25 at 2009, For 99 days Or ondansetron HCl (PF) (Zofran) injection 4 mgJump to med 4 mg, intravenous, Every 6 hours PRN, nausea, vomiting, Starting on Wed07/13/25 at 2009, For 99 days, Give IV if patient is unable to take orally. Administer as an IV push over 2 to 5 minutes. Group 3: Insert peripheral IV (CANCELED) Once, On Wed07/13/25 at 2006, For 1 occurrence And Saline lock IV (CANCELED) Once, On Wed07/13/25 at 2006, For 1 occurrence And sodium chloride flush 10 mLJump to med 10 mL, intravenous, Every 8 hours PRN, line care, Starting on Wed07/13/25 at 2005, For 99 days documented in this encounter Additional Health Concerns InfectionOnset DateLast IndicatedResolved TimeC.difficile Comment:External result, treatment incomplete /OVID-19 (confirmed) Comment:Tested positive last 07/08/2025 at the [facility]. Patient is immune compromised MDR Socnit08documented as of this encounter Care Teams Team MemberRelationshipSpecialtyStart DateEnd Date Hiestand, Abebe, MD [facility] [place] [address] PCP - GeneralInternal Medicine09/21/24 Abebe Tan MD [address] [place] [id number] Consulting PhysicianUrology04/07/25documented as of this encounter
[2025-07-31] VITALS (55 sets, daily range): BP systolic 115–212; BP diastolic 65–120; PULSE 74–86; TEMP 36.7; O2SAT 89–99; BMI 25.8
--- NOTE | 2025-07-31 15:16 | ED_ITS ---
Documented by User: SHAE Castillo 07/31/25 22:11 HPI HPI - General Adult General Chief complaint: Shortness of Breath/Dyspnea Stated complaint: SOB Time Seen by Provider: 07/31/25 15:15 Source: patient Mode of arrival: ambulance History of Present Illness HPI narrative: Patient is a 70-year-old male with a PMH of stroke and kidney transplant in March at [facility] that was sent to the emergency department from his rehabilitation facility, [facility], for shortness of breath that was sudden onset, with hypoxia requiring 2 L when he normally does not use oxygen. He was recently diagnosed with a left brachial vein DVT as well as a superficial thrombosis in the left arm on Wednesday he was started on Eliquis 10 mg twice daily. He has also recently been diagnosed with C. difficile when he arrived at the facility about a month ago. He has been on 2 rounds of antibiotic as well as IV antibiotics for a week when he was back at [facility]. He is still having symp toms from his C. difficile. They report that he remains dehydrated even though he has been getting lactated Ringer's at the facility every other day. He did have blood work yesterday and his white count remains elevated. He was also diagnosed with COVID 2 weeks ago. Patient follows with [employer], Dr. Robin at [facility], who would like to be updated with findings from the ER visit. Related Data Home Medications ?Medication ?Instructions ?Recorded ?Confirmed bumetanide 1 mg tablet 1 mg PO DAILY 04/28/2504/28 calcium carbonate (Antacid 600 mg PO BID 04/28/2504/03 (calcium carbonate)) carvedilol 25 mg tablet 25 mg PO Q12H 04/28/2504/28 famotidine 20 mg tablet 20 mg PO DAILY 04/28/2504/03 finasteride 5 mg tablet 5 mg PO DAILY 04/28/2504/28 hydralazine 100 mg tablet 100 mg PO TID 04/28/2504/28 magnesium glycinate 100 mg (as 300 mg PO TID 04/28/25 04/28/25 glycinate) tablet (Mag Glycinate) mycophenolate sodium 180 mg 720 mg PO Q12H 09/27/25 09 /27/25 tablet,delayed release (Myfortic) nifedipine 30 mg tablet,extended 30 mg PO DAILY 04/28/25 release 24 hr nystatin 100,000 unit/mL oral 5 ml PO QID 04/28/25 suspension pantoprazole 40 mg tablet,delayed 40 mg PO DAILY 04/2804/28/25 release prednisone 10 mg tablet 20 mg PO DAILY 04/28/2504/03 sodium di- and 1 tab PO BID 04/28/25 monophosphate-potassium phos monobasic 250 mg tablet (O-Kcas-Aqyiguq) sulfamethoxazole 800 1 tab PO .3 times a week 04/28/25 mg-trimethoprim 160 mg tablet tacrolimus 4 mg tablet,extended 4 mg PO DAILY 04/28/25 04/28/25 release 24 hr (Envarsus XR) tamsulosin 0.4 mg capsule 0.8 mg PO DAILY 04/28/25 valganciclovir 450 mg tablet 450 mg PO DAILY 04/28/25 04/28/25 Previous Rx's ?Medication ?Instructions ?Recorded hydrocortisone 2.5 % topical cream 1 applic ID DAILY P RN hemorrhoids 05/26/25 with perineal applicator #30 grams (Procto-Med HC) polyethylene glycol 3350 17 17 g PO DAILY 4 days #68 g amadou 05/26/25 gram/dose oral powder (Miralax) Allergies Allergy/AdvReac Type Severity Reaction Status Date / Time amlodipine Allergy Severe Unknown Verified 07/31/25 15:14 shellfish derived Allergy Severe Unknown Verified 07/31/25 15:14 Opioid HPI Opioid Management Most Recent Opioid Data: Last Pain Scale 5 05/26/25, 13:58 Review of Systems ROS Status of ROS 10 or more systems reviewed and unremark able except as noted in history and below PFSH PFSH Social History Little interest or pleasure in doing things: not at all Feeling down, depressed, or hopeless: not at all Exam Constitutional Vital Signs, click to edit/add: Last Vital Signs Temp 98.1 F 07/31/25 15:07 Pulse 80 07/31/25 23:50 Resp 25 H 07/31/25 23:50 BP 188/78 H 07/31/25 23:30 Pulse Ox 96 07/31/25 23:50 O2 Del Method Room Air 07/31/25 15:07 Documenting provider has reviewed patient's vital signs: yes Course Vital Signs Vital signs: Vital Signs Temperature 98.1 F 07/31/25 15:07 Pulse Rate 84 07/31/25 15:07 Respiratory Rate 16 07/31/25 15:07 Blood Pressure 115/65 07/31/25 15:07 Pulse Oximetry 89 L 07/31/25 15:07 Oxygen Delivery Method Room Air 07/31/25 15:07 Temperature 98.1 F 07/31/25 15:07 Pulse Rate 80 07/31/25 23:50 Respiratory Rate 25 H 07/31/25 23:50 Blood Pressure 188/78 H 07/31/25 23:30 Pulse Oximetry 96 07/31/25 23:50 Oxygen Delivery Method Room Air 07/31/25 15:07 Medical Decision Making MDM Narrative Medical decision making narrative: 70-year-old male with PMH of kidney transplant (March), prior stroke, recent left upper extremity DVT on Eliquis diagnosed 4 days ago, recent C. difficile infection, and COVID infection 2 weeks ago. On arrival patient was hypoxic to 89% O2 saturation on room air, improvement with application of 2 L nasal cannula to high 90s. Report from his rehabilitation facility reveals that he has been on 2 L all day. Exam with bilateral crackles/rhonchi on auscultation, patient in no respiratory distress. Patient does not converse much on exam but speaks in full sentences. He is coughing on exam. Acute decompensated heart failure (CHF) with pulmonary edema BNP 12,445, CXR with interstitial prominence, perihilar vascular congestion, small bilateral pleural effusions, bilateral crackles on exam. * Discuss diuretic use with [employer] (currently 2 L NC, responsive) Hypoxia * Likely multifactorial: CHF exacerbation, Influenza A infection, possible PE. * Continue oxygen therapy to maintain SpO? > 92%, monitor closely for respiratory compromise. * Recent left upper extremity DVT, sudden onset hypoxia and SOB starting today, concern for PE * V/Q scan ordered due to renal transplant status. Continue Eliquis 10 mg B ID. Will reassess management based on scan results. * Very low probability for pulmonary embolism on V/Q scan. Influenza A infection * Positive nasal swab; mild respiratory findings. * Will discuss Tamiflu with [employer] Kidney transplant * BUN/Cr (32/1.47), stable renal function. * Will discuss fluid and diuretic management with transplant team given CHF as above. Monitor renal function daily. Other lab abnormalities * Leukocytosis: WBC 14.3 ? likely multifactorial (infection, CHF stress). * Anemia: Hgb 8.5, chronic Patient remains hemodynamically stable, remains on 2 L nasal cannula, no respiratory distress. Likely admission to monitor CHF management, pending V/Q scan results, and ongoing transplant care coordination, will discuss with [employer], Dr Robin ([phone]). I did call the [facility] transfer center at [address] Robin, who they stated was in the OR currently and will call us back. Patient updated with lab and imaging findings and plan. At this time 2200, my shift ended and patient case and care was signed out to Dr Mac. Differential Diagnosis Differential Diagnosis: PE, COVID related PNA, sepsis, MEDARDO Lab Data Lab results reviewed: Yes I reviewed the patient's lab results Labs: Lab Results 07/31/25 07/31/25 07/31/25 Range/Units 15:42 16:01 16:35 WBC 14.3 H (4.0-11.0) 10^3/uL RBC 2.55 L (4.70-6.10) 10^6/uL Hgb 8.5 L (14.0-18.0) g/dL Hct 26.6 L (42.0-54.0) % MCV 104.3 H (80.0-94.0) fL MCH 33.3 (25.9-34.0) pg MCHC 32.0 (29.9-35.2) g/dL RDW 19.2 H (11.0-15.0) % Plt Count 345 (150-450) 10^3/uL MPV 11.1 (9.5-13.5) fL Seg Neuts % (Manual) 94.0 H (43.0-75.0) Lymphocytes % (Manual) 4.0 L (20.5-60.0) % Monocytes % (Manual) 2.0 (1.7-12.0) % Eosinophils % (Manual) 0.0 L (0.9-7.0) % Basophils % (Manual) 0.0 L (0.2-2.0) % Neutrophils # (Manual) 13.44 H (1.4-6.5) 10^3/uL Lymphocytes # (Manual) 0.57 L (1.20-3.80) 10^3/uL Monocytes # (Manual) 0.28 L (0.30-0.80) 10^3/uL Eosinophils # (Manual) 0.00 (0.00-0.70) 10^3/uL Basophils # (Manual) 0.00 (0.00-0.10) 10^3/uL Puncture Site ABG pH (7.350-7.450) ABG pCO2 (35.0-45.0) mmHg ABG pO2 (80.0-100.0) mmHg ABG HCO3 (22.0-26.0) mmol/L ABG O2 Saturation % ABG Base Excess (-2.0-2.0) mmol/L Eren Test (POSITIVE) O2 Liters/Min Sodium 142 (136-145) mmol/L Potassium 4.8 (3.5-5.1) mmol/L Chloride 108 H (98-107) mmol/L Carbon Dioxide 25.7 (21.0-32.0) mmol/L Anion Gap 13.1 BUN 32.0 H (7.0-18.0) mg/dL Creatinine 1.47 H (0.70-1.30) mg/dL Est GFR ( Amer) 57 L (>=60 mL/min/1.73m^2) Est GFR (Non-Af Amer) 47 L (>=60 mL/min/1.73m^2) BUN/Creatinine Ratio 21.8 Glucose 187 H (74-106) mg/dL Lactate 2.2 H* (0.4-2.0) mmol/L Calcium 8.5 (8.5-10.1) mg/dL Total Bilirubin 0.5 (0.2-1.0) mg/dL AST 13 L (15-37) U/L ALT 22 (16-63) U/L Alkaline Phosphatase 86 (46-116) U/L Troponin I High Sens (4.0-76.1) pg/mL NT-Pro-B Natriuret Pep (<=900.0) pg/mL Total Protein 5.6 L (6.4-8.2) g/dL Albumin 2.7 L (3.4-5.0) g/dL Globulin 2.9 g/dL Albumin/Globulin Ratio 0.9 Urine Color Lt. yellow (YELLOW) Urine Clarity Clear (CLEAR) Urine pH 6.5 (5.0-9.0) Ur Specific [place] 1.010 (1.005-1.025) Urine Protein 100 A (NEG/TRACE) mg/dL Urine Glucose (UA) Negative (NEGATIVE) mg/dL Urine Ketones Negative (NEGATIVE) mg/dL Urine Occult Blood Negative (NEGATIVE) Urine Nitrite Negative (NEGATIVE) Urine Bilirubin Negative (NEGATIVE) Urine Urobilinogen 0.2 (0.2-1.0) EU/dL Ur Leukocyte Esterase Negative (NEGATIVE) Urine RBC 0-2 (0-2) #/HPF Urine WBC 2-5 A (NONE SEEN) #/HPF Ur Squamous Epith Cells Rare (NONE/RARE) #/LPF Urine Crystals None seen (None Seen) #/HPF Urine Bacteria Small A (NONE SEEN) #/HPF Urine Casts Seen A (NONE SEEN) #/LPF Hyaline Casts Rare Urine Mucus Trace A (NONE SEEN) Ur Culture Indicated? Yes-[facility] [place] Influenza Type A Ag Positive A Influenza Type B Ag Negative 07/31/25 07/31/25 Range/Units 17:21 21:35 WBC (4.0-11.0) 10^3/uL RBC (4.70-6.10) 10^6/uL Hgb (14.0-18.0) g/dL Hct (42.0-54.0) % MCV (80.0-94.0) fL MCH (25.9-34.0) pg MCHC (29.9-35.2) g/dL RDW (11.0-15.0) % Plt Count (150-450) 10^3/uL MPV (9.5-13.5) fL Seg Neuts % (Manual) (43.0-75.0) Lymphocytes % (Manual) (20.5-60.0) % Monocytes % (Manual) (1.7-12.0) % Eosinophils % (Manual) (0.9-7.0) % Basophils % (Manual) (0.2-2.0) % Neutrophils # (Manual) (1.4-6.5) 10^3/uL Lymphocytes # (Manual) (1.20-3.80) 10^3/uL Monocytes # (Manual) (0.30-0.80) 10^3/uL Eosinophils # (Manual) (0.00-0.70) 10^3/uL Basophils # (Manual) (0.00-0.10) 10^3/uL Puncture Site Rr ABG pH 7.481 H (7.350-7.450) ABG pCO2 34.2 L (35.0-45.0) mmHg ABG pO2 72.0 L (80.0-100.0) mmHg ABG HCO3 25.6 (22.0-26.0) mmol/L ABG O2 Saturation 95.8 % ABG Base Excess 2.1 H (-2.0-2.0) mmol/L Eren Test Positive (POSITIVE) O2 Liters/Min 1.5 Sodium (136-145) mmol/L Potassium (3.5-5.1) mmol/L Chloride (98-107) mmol/L Carbon Dioxide (21.0-32.0) mmol/L Anion Gap BUN (7.0-18.0) mg/dL Creatinine (0.70-1.30) mg/dL Est GFR ( Amer) (>=60 mL/min/1.73m^2) Est GFR (Non-Af Amer) (>=60 mL/min/1.73m^2) BUN/Creatinine Ratio Glucose (74-106) mg/dL Lactate (0.4-2.0) mmol/L Calcium (8.5-10.1) mg/dL Total Bilirubin (0.2-1.0) mg/dL AST (15-37) U/L ALT (16-63) U/L Alkaline Phosphatase (46-116) U/L Troponin I High Sens 58.4 (4.0-76.1) pg/mL NT-Pro-B Natriuret Pep 78643.0 H* (<=900.0) pg/mL Total Protein (6.4-8.2) g/dL Albumin (3.4-5.0) g/dL Globulin g/dL Albumin/Globulin Ratio Urine Color (YELLOW) Urine Clarity (CLEAR) Urine pH (5.0-9.0) Ur Specific [place] (1.005-1.025) Urine Protein (NEG/TRACE) mg/dL Urine Glucose (UA) (NEGATIVE) mg/dL Urine Ketones (NEGATIVE) mg/dL Urine Occult Blood (NEGATIVE) Urine Nitrite (NEGATIVE) Urine Bilirubin (NEGATIVE) Urine Urobilinogen (0.2-1.0) EU/dL Ur Leukocyte Esterase (NEGATIVE) Urine RBC (0-2) #/HPF Urine WBC (NONE SEEN) #/HPF Ur Squamous Epith Cells (NONE/RARE) #/LPF Urine Crystals (None Seen) #/HPF Urine Bacteria (NONE SEEN) #/HPF Urine Casts (NONE SEEN) #/LPF Hyaline Casts Urine Mucus (NONE SEEN) Ur Culture Indicated? Influenza Type A Ag Influenza Type B Ag Imaging Data Chest x-ray: Attestation: I have reviewed the pertinent imaging results. Radiologist's impression: ITS Impressions Pulmonary Perfusion Imaging 07/31/25 15:38 IMPRESSION: Very low probability for pulmonary embolism. Impression dictated by: Tim Cole M.D. 07/31/2025 8:45 PM Dictation Location: [facility] Electronically authenticated by: [id number] Y Date: 07/31/2025 20:45 Chest X-Ray 07/31/25 16:57 IMPRESSION: Interstitial prominence is noted with perihilar vascular prominence suspicious for congestive heart failure. This is worse when compared to the prior study. Small bilateral pleural effusions are present. Impression dictated by: Tim Cole M.D. 07/31/2025 5:16 PM Dictation Location: [facility] Electronically authenticated by: [id number] Y Date: 07/31/2025 17:16 ECG Data Attestation: ?I have reviewed the pertinent ECG results. Discharge Plan Discharge Chief Complaint: Shortness of Breath/Dyspnea Clinical Impression: Influenza A, Kidney replaced by transplant, Hypoxia, Fluid overload Patient Disposition: [facility] Time of Disposition Decision: 23:42 Discharge Location: [facility] Mode of Transportation: EMS Documented by User: Jesusita Mac MD 08/01/25 01:10 HPI HPI - General Adult General Chief complaint: Shortness of Breath/Dyspnea Stated complaint: SOB Time Seen by Provider: 07/31/25 15:15 Related Data Home Medications ?Medication ?Instructions ?Recorded ?Confirmed bumetanide 1 mg tablet 1 mg PO DAILY 04/28/2504/28 calcium carbonate (Antacid 600 mg PO BID 04/28/2504/03 (calcium carbonate)) carvedilol 25 mg tablet 25 mg PO Q12H 04/28/2504/28 famotidine 20 mg tablet 20 mg PO DAILY 04/28/2504/03 finasteride 5 mg tablet 5 mg PO DAILY 04/28/2504/28 hydralazine 100 mg tablet 100 mg PO TID 04/28/2504/28 magnesium glycinate 100 mg (as 300 mg PO TID 04/28/25 04/28/25 glycinate) tablet (Mag Glycinate) mycophenolate sodium 180 mg 720 mg PO Q12H 04/28/25 tablet,delayed release (Myfortic) nifedipine 30 mg tablet,extended 30 mg PO DAILY 04/28/25 release 24 hr nystatin 100,000 unit/mL oral 5 ml PO QID 04/28/25 suspension pantoprazole 40 mg tablet,delayed 40 mg PO DAILY 04/2804/28/25 release prednisone 10 mg tablet 20 mg PO DAILY 04/28/2504/03 sodium di- and 1 tab PO BID 04/28/25 monophosphate-potassium phos monobasic 250 mg tablet (V-Zeed-Jhuwljv) sulfamethoxazole 800 1 tab PO .3 times a week 04/28/25 mg-trimethoprim 160 mg tablet tacrolimus 4 mg tablet,extended 4 mg PO DAILY 04/28/25 04/28/25 release 24 hr (Envarsus XR) tamsulosin 0.4 mg capsule 0.8 mg PO DAILY 04/28/25 valganciclovir 450 mg tablet 450 mg PO DAILY 04/28/25 04/28/25 Previous Rx's ?Medication ?Instructions ?Recorded hydrocortisone 2.5 % topical cream 1 applic ID DAILY P RN hemorrhoids 05/26/25 with perineal applicator #30 grams (Procto-Med HC) polyethylene glycol 3350 17 17 g PO DAILY 4 days #68 g amadou 05/26/25 gram/dose oral powder (Miralax) Allergies Allergy/AdvReac Type Severity Reaction Status Date / Time amlodipine Allergy Severe Unknown Verified 07/31/25 15:14 shellfish derived Allergy Severe Unknown Verified 07/31/25 15:14 Opioid HPI Opioid Management Most Recent Opioid Data: Last Pain Scale 5 05/26/25, 13:58 PFSH PFSH Social History Little interest or pleasure in doing things: not at all Feeling down, depressed, or hopeless: not at all Exam Narrative Exam Narrative: Vital signs and Nursing Notes reviewed: Is afebrile, tachypneic, blood pressure is elevated 174/67, pulse is normal at 82 and he is hypoxic with pulse ox of 90% on room air General; pale, ill-appearing adult male, audible expiratory wheezing noted HEENT: Normocephalic atraumatic, mucous membranes are pink but dry Neck: Supple, no meningeal signs, no appreciable JVD Chest: Bilateral expiratory wheezing and faint bibasilar rales, no rhonchi noted, no accessory muscle use, patient noted to be hypoxic at triage with a pulse ox of 90% on room air CVS: Regular rate and rhythm S1-S2, no murmurs rubs or gallops, pulses are brisk and equal bilaterally ABD: Soft, nondistended, nontender, no rebound guarding or rigidity, Extremities: Bilateral pitting edema Skin: Pale without notable rash Neuro: No focal deficits Constitutional Vital Signs, click to edit/add: Last Vital Signs Temp 98.1 F 07/31/25 15:07 Pulse 80 07/31/25 23:50 Resp 25 H 07/31/25 23:50 BP 188/78 H 07/31/25 23:30 Pulse Ox 96 07/31/25 23:50 O2 Del Method Room Air 07/31/25 15:07 Course Vital Signs Vital signs: Vital Signs Temperature 98.1 F 07/31/25 15:07 Pulse Rate 84 07/31/25 15:07 Respiratory Rate 16 07/31/25 15:07 Blood Pressure 115/65 07/31/25 15:07 Pulse Oximetry 89 L 07/31/25 15:07 Oxygen Delivery Method Room Air 07/31/25 15:07 Temperature 98.1 F 07/31/25 15:07 Pulse Rate 80 07/31/25 23:50 Respiratory Rate 25 H 07/31/25 23:50 Blood Pressure 188/78 H 07/31/25 23:30 Pulse Oximetry 96 07/31/25 23:50 Oxygen Delivery Method Room Air 07/31/25 15:07 Medical Decision Making MDM Narrative Medical decision making narrative: 70-year-old male with PMH of kidney transplant (March), prior stroke, recent left upper extremity DVT on Eliquis diagnosed 4 days ago, recent C. difficile infection, and COVID infection 2 weeks ago. On arrival patient was hypoxic to 89% O2 saturation on room air, improvement with application of 2 L nasal cannula to high 90s. Report from his rehabilitation facility reveals that he has been on 2 L all day. Exam with bilateral crackles/rhonchi on auscultation, patient in no respiratory distress. Patient does not converse much on exam but speaks in full sentences. He is coughing on exam. Acute decompensated heart failure (CHF) with pulmonary edema BNP 12,445, CXR with interstitial prominence, perihilar vascular congestion, small bilateral pleural effusions, bilateral crackles on exam. * Discuss diuretic use with [employer] (currently 2 L NC, responsive) Hypoxia * Likely multifactorial: CHF exacerbation, Influenza A infection, possible PE. * Continue oxygen therapy to maintain SpO? > 92%, monitor closely for respiratory compromise. * Recent left upper extremity DVT, sudden onset hypoxia and SOB starting today, concern for PE * V/Q scan ordered due to renal transplant status. Continue Eliquis 10 mg BID. Will reassess management based on scan results. * Very low probability for pulmonary embolism on V/Q scan. Influenza A infection * Positive nasal swab; mild respiratory findings. * Will discuss Tamiflu with [employer] Kidney transplant * BUN/Cr (32/1.47), stable renal function. * Will discuss fluid and diuretic management with transplant team given CHF as above. Monitor renal function daily. Other lab abnormalities * Leukocytosis: WBC 14.3 ? likely multifactorial (infection, CHF stress). * Anemia: Hgb 8.5, chronic Patient remains hemodynamically stable, remains on 2 L nasal cannula, no respiratory distress. Likely admission to monitor CHF management, pending V/Q scan results, and ongoing transplant care coordination, will discuss with [employer], Dr Robin ([phone]). I did call the [facility] transfer center at [address] Robin, who they stated was in the OR currently and will call us back. Patient updated with lab and imaging findings and plan. At this time 2200, my shift ended and patient case and care was signed out to Dr Mac. This patient was seen and evaluated in conjunction with the physician press assistant and feeder. 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 He has recently been being treated at an extended care facility for C. difficile and has been given IV fluids and a routine basis. Today he became short of breath and hypoxic. He is on Eliquis. He was sent to the emergency department for evaluation of his hypoxia. In emergency department he is again hypoxic with pulse ox of 90% with audible expiratory wheezing and bibasilar rales, he has pitting edema of his lower extremities. He denies a history of CHF. He was placed on supplemental oxygen with clinical improvement. His white count is elevated at 14.5. He has recently had C. difficile. He does not know if he is still having diarrhea or not. His hemoglobin is low at 8.5. Creatinine is 1.47 today. Troponin is normal at 58.4 but BNP is markedly elevated greater than 12, 000. Albumin is low at 2.7. Lactic was elevated at 2.2. Chest x-ray shows pulmonary vascular congestion and VQ scan does not show any findings concerning for cute PE. He is also positive for influenza A. He was given Tamiflu. Blood gas results did not show severe hypoxia, CO2 retention or respiratory acidosis. 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 Robin. He request that the patient be diuresed with Lasix starting at 40 mg IV. He also request that he be treated for atypical pneumonia with Zithromax and given supplemental albumin. Due to his complex nature and history of renal transplant the patient will be transferred to [facility]. Lab Data Labs: Lab Results 07/31/25 07/31/25 07/31/25 Range/Units 15:42 16:01 16:35 WBC 14.3 H (4.0-11.0) 10^3/uL RBC 2.55 L (4.70-6.10) 10^6/uL Hgb 8.5 L (14.0-18.0) g/dL Hct 26.6 L (42.0-54.0) % MCV 104.3 H (80.0-94.0) fL MCH 33.3 (25.9-34.0) pg MCHC 32.0 (29.9-35.2) g/dL RDW 19.2 H (11.0-15.0) % Plt Count 345 (150-450) 10^3/uL MPV 11.1 (9.5-13.5) fL Seg Neuts % (Manual) 94.0 H (43.0-75.0) Lymphocytes % (Manual) 4.0 L (20.5-60.0) % Monocytes % (Manual) 2.0 (1.7-12.0) % Eosinophils % (Manual) 0.0 L (0.9-7.0) % Basophils % (Manual) 0.0 L (0.2-2.0) % Neutrophils # (Manual) 13.44 H (1.4-6.5) 10^3/uL Lymphocytes # (Manual) 0.57 L (1.20-3.80) 10^3/uL Monocytes # (Manual) 0.28 L (0.30-0.80) 10^3/uL Eosinophils # (Manual) 0.00 (0.00-0.70) 10^3/uL Basophils # (Manual) 0.00 (0.00-0.10) 10^3/uL Puncture Site ABG pH (7.350-7.450) ABG pCO2 (35.0-45.0) mmHg ABG pO2 (80.0-100.0) mmHg ABG HCO3 (22.0-26.0) mmol/L ABG O2 Saturation % ABG Base Excess (-2.0-2.0) mmol/L Eren Test (POSITIVE) O2 Liters/Min Sodium 142 (136-145) mmol/L Potassium 4.8 (3.5-5.1) mmol/L Chloride 108 H (98-107) mmol/L Carbon Dioxide 25.7 (21.0-32.0) mmol/L Anion Gap 13.1 BUN 32.0 H (7.0-18.0) mg/dL Creatinine 1.47 H (0.70-1.30) mg/dL Est GFR ( Amer) 57 L (>=60 mL/min/1.73m^2) Est GFR (Non-Af Amer) 47 L (>=60 mL/min/1.73m^2) BUN/Creatinine Ratio 21.8 Glucose 187 H (74-106) mg/dL Lactate 2.2 H* (0.4-2.0) mmol/L Calcium 8.5 (8.5-10.1) mg/dL Total Bilirubin 0.5 (0.2-1.0) mg/dL AST 13 L (15-37) U/L ALT 22 (16-63) U/L Alkaline Phosphatase 86 (46-116) U/L Troponin I High Sens (4.0-76.1) pg/mL NT-Pro-B Natriuret Pep (<=900.0) pg/mL Total Protein 5.6 L (6.4-8.2) g/dL Albumin 2.7 L (3.4-5.0) g/dL Globulin 2.9 g/dL Albumin/Globulin Ratio 0.9 Urine Color Lt. yellow (YELLOW) Urine Clarity Clear (CLEAR) Urine pH 6.5 (5.0-9.0) Ur Specific [place] 1.010 (1.005-1.025) Urine Protein 100 A (NEG/TRACE) mg/dL Urine Glucose (UA) Negative (NEGATIVE) mg/dL Urine Ketones Negative (NEGATIVE) mg/dL Urine Occult Blood Negative (NEGATIVE) Urine Nitrite Negative (NEGATIVE) Urine Bilirubin Negative (NEGATIVE) Urine Urobilinogen 0.2 (0.2-1.0) EU/dL Ur Leukocyte Esterase Negative (NEGATIVE) Urine RBC 0-2 (0-2) #/HPF Urine WBC 2-5 A (NONE SEEN) #/HPF Ur Squamous Epith Cells Rare (NONE/RARE) #/LPF Urine Crystals None seen (None Seen) #/HPF Urine Bacteria Small A (NONE SEEN) #/HPF Urine Casts Seen A (NONE SEEN) #/LPF Hyaline Casts Rare Urine Mucus Trace A (NONE SEEN) Ur Culture Indicated? [facility] [place] Influenza Type A Ag Positive A Influenza Type B Ag Negative 07/31/25 07/31/25 Range/Units 17:21 21:35 WBC (4.0-11.0) 10^3/uL RBC (4.70-6.10) 10^6/uL Hgb (14.0-18.0) g/dL Hct (42.0-54.0) % MCV (80.0-94.0) fL MCH (25.9-34.0) pg MCHC (29.9-35.2) g/dL RDW (11.0-15.0) % Plt Count (150-450) 10^3/uL MPV (9.5-13.5) fL Seg Neuts % (Manual) (43.0-75.0) Lymphocytes % (Manual) (20.5-60.0) % Monocytes % (Manual) (1.7-12.0) % Eosinophils % (Manual) (0.9-7.0) % Basophils % (Manual) (0.2-2.0) % Neutrophils # (Manual) (1.4-6.5) 10^3/uL Lymphocytes # (Manual) (1.20-3.80) 10^3/uL Monocytes # (Manual) (0.30-0.80) 10^3/uL Eosinophils # (Manual) (0.00-0.70) 10^3/uL Basophils # (Manual) (0.00-0.10) 10^3/uL Puncture Site Rr ABG pH 7.481 H (7.350-7.450) ABG pCO2 34.2 L (35.0-45.0) mmHg ABG pO2 72.0 L (80.0-100.0) mmHg ABG HCO3 25.6 (22.0-26.0) mmol/L ABG O2 Saturation 95.8 % ABG Base Excess 2.1 H (-2.0-2.0) mmol/L Eren Test Positive (POSITIVE) O2 Liters/Min 1.5 Sodium (136-145) mmol/L Potassium (3.5-5.1) mmol/L Chloride (98-107) mmol/L Carbon Dioxide (21.0-32.0) mmol/L Anion Gap BUN (7.0-18.0) mg/dL Creatinine (0.70-1.30) mg/dL Est GFR ( Amer) (>=60 mL/min/1.73m^2) Est GFR (Non-Af Amer) (>=60 mL/min/1.73m^2) BUN/Creatinine Ratio Glucose (74-106) mg/dL Lactate (0.4-2.0) mmol/L Calcium (8.5-10.1) mg/dL Total Bilirubin (0.2-1.0) mg/dL AST (15-37) U/L ALT (16-63) U/L Alkaline Phosphatase (46-116) U/L Troponin I High Sens 58.4 (4.0-76.1) pg/mL NT-Pro-B Natriuret Pep 00530.0 H* (<=900.0) pg/mL Total Protein (6.4-8.2) g/dL Albumin (3.4-5.0) g/dL Globulin g/dL Albumin/Globulin Ratio Urine Color (YELLOW) Urine Clarity (CLEAR) Urine pH (5.0-9.0) Ur Specific [place] (1.005-1.025) Urine Protein (NEG/TRACE) mg/dL Urine Glucose (UA) (NEGATIVE) mg/dL Urine Ketones (NEGATIVE) mg/dL Urine Occult Blood (NEGATIVE) Urine Nitrite (NEGATIVE) Urine Bilirubin (NEGATIVE) Urine Urobilinogen (0.2-1.0) EU/dL Ur Leukocyte Esterase (NEGATIVE) Urine RBC (0-2) #/HPF Urine WBC (NONE SEEN) #/HPF Ur Squamous Epith Cells (NONE/RARE) #/LPF Urine Crystals (None Seen) #/HPF Urine Bacteria (NONE SEEN) #/HPF Urine Casts (NONE SEEN) #/LPF Hyaline Casts Urine Mucus (NONE SEEN) Ur Culture Indicated? Influenza Type A Ag Influenza Type B Ag Imaging Data Chest x-ray: Radiologist's impression: ITS Impressions Pulmonary Perfusion Imaging 07/31/25 15:38 IMPRESSION: Very low probability for pulmonary embolism. Impression dictated by: Tim Cole M.D. 07/31/2025 8:45 PM Dictation Location: [place] [address] Electronically authenticated by: [id number] Y Date: 07/31/2025 20:45 Chest X-Ray 07/31/25 16:57 IMPRESSION: Interstitial prominence is noted with perihilar vascular prominence suspicious for congestive heart failure. This is worse when compared to the prior study. Small bilateral pleural effusions are present. Impression dictated by: Tim Cole M.D. 07/31/2025 5:16 PM Dictation Location: [place] [address] Electronically authenticated by: [id number] Y Date: 07/31/2025 17:16 ECG Data Attestation: I personally reviewed and interpreted this ECG as follows: (Sinus rhythm 84 bpm, normal axis, normal intervals, no acute ST segment elevation or T wave inversion) Critical Care Time Critical Care Time Total Critical Care Time: 40 Attestation: Due to this patient's presentation and complex nature of his medical history and the high probability of sudden and clinically significant deterioration in his condition he required the highest level of my preparedness to intervene urgently. I provided critical care time including documentation time, medication orders and management, reevaluation vital sign assessment ordering. Of lab test, ordering of reviewing radiographic studies and consultation with co nsulting physicians. Agro critical care time is 40 minutes including only time during which I was engaged in work directly related to his care Discharge Plan Discharge Chief Complaint: Shortness of Breath/Dyspnea Clinical Impression: Influenza A, Kidney replaced by transplant, Hypoxia, Fluid overload Patient Disposition: [facility] Time of Disposition Decision: 23:42 Discharge Location: [facility] Mode of Transportation: EMS
--- NOTE | 2025-07-31 15:38 | NM_ITS ---
The [address] [address] Patient Name: CHRISTAL SUH MRN: [id number] date: 1955 Sex: M Assigned Patient Location: ED.MAIN Current Patient Location: Accession/Order Number: [id number] Exam Date: 07/31/2025 18:55 Report Date: 07/31/2025 20:45 At the request of: NAYLA KAUFMAN Procedure: NM pul vent and perfuse NM pul vent and perfuse 07/31/2025 8:26 PM SIGNS AND SYMPTOMS: ^Eval for PE, h/o of DVT, Recent Kidney transplant PROTOCOL: Scintigraphic images of the chest were obtained after intravenous radiotracer administration. Patient refused ventilation portion of the exam. COMPARISON: 07/31/2025 RADIOPHARMACEUTICAL: 5.6 mCi of intravenous technetium 99m MAA FINDINGS: Perfusion images show no significant segmental or subsegmental perfusion defects to suggest the presence of pulmonary embolism. NM/NM pul vent and perfuse IMPRESSION: Very low probability for pulmonary embolism. Impression dictated by: Tim Cole M.D. 07/31/2025 8:45 PM Dictation Location: [place] [address] Electronically authenticated by: [id number] Y Date: 07/31/2025 20:45
--- OUTSIDE RECORDS SUMMARY | 2025-07-31 15:40 | XMS_ITS | Clinical Summary ---
Author Organization [facility] Address [address] [place] [address] Care Team Providers Care Beef Selector Name Role Phone Unavailable Primary Care Provider Unavailabl e Encounters DateTypeDepartmentCare WiceSlbvhczecku20/26/2025linisync Result Encounter [facility] External Department Unsolicited Maida Mark, LIQUID YEAST SUPERVISOR from Last 3 Months Social History Tobacco UseTypesPacks/DayYears UsedDateSmoking Tobacco: Never AssessedSex and Gender InformationValueDate RecordedSex Assigned at BirthNot on fileLegal Sex Male10/14/2022 7:30 PM EDTGender IdentityNot on fileSexual OrientationNot on file Plan of Treatment Not on file Procedures Procedure NamePriorityDate/TimeAssociated DiagnosisCommentsALL BASIC METABOLIC ADRAKIjeklud89/26/2025 3:00 PM EST ALL CBC WITH AUTO CJIQVguhldl08/26/2025 3:00 PM EST from Last 3 Months Results * (ABNORMAL) ALL CBC WITH AUTO DIFF (07/27/2025 3:00 PM EST)ComponentValueRef RangeTest MethodAnalysis TimePerformed AtPathologist SignatureTBH WBC15.8(H) 4.0 - 11.0 10 3/uLTBHTBH RBC2.51(L)4.70 - 6.10 10 6/uLTBHTBH HGB8.4(L)14.0 - 18.0 g/dLTBHTBH HCT26.1(L)42.0 - 54.0 %TBHTBH IYC968.0(H)80.0 - 94.0 fLTBHTBH MCH33.525.9 - 34.0 pgTBHTBH MCHC32.229.9 - 35.2 g/dLTBHTBH RDW19.7(H)11.0 - 15.0 %TBHTBH LNP252247 - 450 10 3/uLTBHTBH MPV11.89.5 - 13.5 fLTBHSpecimen (Source)Anatomical Location / LateralityCollection Method / VolumeCollection TimeReceived Time07/27/2025 3:00 PM EST07/27/2025 3:27 PM EST Narrative CLINISYNC - 07/27/2025 3:35 PM EST Authorizing ProviderResult TypeResult StatusMaida Mark NPCLINISYNCFinal Result Performing OrganizationAddressCity/State/ZIP CodePhone Number CLINISYNC TB * (ABNORMAL) ALL BASIC METABOLIC PANEL (07/27/2025 3:00 PM EST)ComponentValueRef RangeTest MethodAnalysis TimePerformed AtPathologist OilerbqgoVDKUYJ852275 - 145 mmol/LTBHPOTASSIUM4.43.5 - 5.1 mmol/PTQFPZHVDADU443(H)98 - 107 mmol/LTBH [place] VFVLIUD29.321.0 - 32.0 mmol/LTBHANION GAP10.0PMYUNUYADA414(H)74 - 106 mg/dLTBHBLOOD UREA MUVCLTQP47.0(H)7.0 - 18.0 mg/dLTBHCREATININE1.34(H)0.70 - 1.30 mg/dLTBHTBH EGFR-AF GERMAN>60>=60 mL/min/1.73m 2TBHTBH EGFR-NON AF NNNVYODE97(L)>=60 mL/min/1.73m 2TBHBUN CREATININE RATIO23.5MELHNVOYQZ3.1(L)8.5 - 10.1 mg/dLTBHSpecimen (Source)Anatomical Location / LateralityCollection Method / VolumeCollection TimeReceived Time07/27/2025 3:00 PM EST07/27/2025 3:27 PM EST Narrative CLINISYNC - 07/27/2025 3:56 PM EST [facility] DROP OFF Authorizing ProviderResult TypeResult StatusMaida Mark NPCLINISYNCFinal Result Performing OrganizationAddressCity/State/ZIP CodePhone Number CLINISYNC TB from Last 3 Months Insurance
--- OUTSIDE RECORDS SUMMARY | 2025-07-31 15:40 | XMS_ITS | Encounter Summary ---
Author Organization [facility] Address [address] [place] [address] Care Team Providers Care Mission Commander Name Role Phone Unavailable Primary Care Provider Unavailabl e Encounter Details DateTypeDepartmentCare Team (Latest Contact Info)Ferstzdudkv56/26/2025linisync Result Encounter [facility] External Department Unsolicited Maida Mark, ARTIFICIAL BREAST FABRICATOR [address] [place] [address] Social History Tobacco UseTypesPacks/DayYears UsedDateSmoking Tobacco: Never AssessedSex and Gender InformationValueDate RecordedSex Assigned at BirthNot on fileLegal Sex Male10/14/2022 7:30 PM EDTGender IdentityNot on fileSexual OrientationNot on filedocumented as of this encounter Plan of Treatment Not on file documented as of this encounter Procedures Procedure NamePriorityDate/TimeAssociated DiagnosisCommentsALL CBC WITH AUTO UBXXIgipnkh93/26/2025 3:00 PM EST ALL BASIC METABOLIC PQEMLQjjegej65/26/2025 3:00 PM EST documented in this encounter Results * (ABNORMAL) ALL BASIC METABOLIC PANEL (07/27/2025 3:00 PM EST)ComponentValueRef RangeTest MethodAnalysis TimePerformed AtPathologist FjwjtijgzMGVPBA733497 - 145 mmol/LTBHPOTASSIUM4.43.5 - 5.1 mmol/WUARMCROABIH087(H)98 - 107 mmol/LTBH [place] VALBMZS08.321.0 - 32.0 mmol/LTBHANION GAP10.7MKYTLIVYRN146(H)74 - 106 mg/dLTBHBLOOD UREA MZHFFJNH03.0(H)7.0 - 18.0 mg/dLTBHCREATININE1.34(H)0.70 - 1.30 mg/dLTBHTBH EGFR-AF CANADIAN>60>=60 mL/min/1.73m 2TBHTBH EGFR-NON AF AIBXLOKP48(L)>=60 mL/min/1.73m 2TBHBUN CREATININE RATIO23.6PGDPOAMRNY3.1(L)8.5 - 10.1 mg/dLTBHSpecimen (Source)Anatomical Location / LateralityCollection Method / VolumeCollection TimeReceived Time07/27/2025 3:00 PM EST07/27/2025 3:27 PM EST Narrative CLINISYNC - 07/27/2025 3:56 PM EST [facility] DROP OFF Authorizing ProviderResult TypeResult Consuelo Mark NPCLINISYNCFinal Result Performing OrganizationAddressCity/State/ZIP CodePhone Number CLINWVUMEDICINE [facility] * (ABNORMAL) ALL CBC WITH AUTO DIFF (07/27/2025 3:00 PM EST)ComponentValueRef RangeTest MethodAnalysis TimePerformed AtPathologist SignatureTBH WBC15.8(H) 4.0 - 11.0 10 3/uLTBHTBH RBC2.51(L)4.70 - 6.10 10 6/uLTBHTBH HGB8.4(L)14.0 - 18.0 g/dLTBHTBH HCT26.1(L)42.0 - 54.0 %TBHTBH DKZ925.0(H)80.0 - 94.0 fLTBHTBH MCH33.525.9 - 34.0 pgTBHTBH MCHC32.229.9 - 35.2 g/dLTBHTBH RDW19.7(H)11.0 - 15.0 %TBHTBH ESE451175 - 450 10 3/uLTBHTBH MPV11.89.5 - 13.5 fLTBHSpecimen (Source)Anatomical Location / LateralityCollection Method / VolumeCollection TimeReceived Time07/27/2025 3:00 PM EST07/27/2025 3:27 PM EST Narrative CLINISYNC - 07/27/2025 3:35 PM EST Authorizing ProviderResult TypeResult StatusMaida Mark NPCLINISYNCFinal Result Performing OrganizationAddressCity/State/ZIP CodePhone Number CLINISYNC TBH documented in this encounter Visit Diagnoses Not on filedocumented in this encounter
--- OUTSIDE RECORDS SUMMARY | 2025-07-31 15:40 | XMS_ITS | Encounter Summary ---
Author Organization [facility] tem Address [id number] [address] [place] [address] Care Team Providers Care Rn Charge Name Role Phone Abebe Stewart MD Primary Care Provider [phone] Reason for Visit * ReasonOnset DateCommentsTransition Of Care07/25/2025 Encounter Details DateTypeDepartmentCare Team (Latest Contact Info)Zlihtzljmgl82/24/2025Telephone [facility] [address] [facility] [address] [place] [address] Zhanna Gabriel, JUANA Transition Of [...] more drinks on one occasion?Never09/12/2020HQ-2AnswerDate Recorded Total Tnnux824/22/2024ChildcareAnswerDate NpjdanksRsltyfwvkFrybtmw09/12/2019 EmploymentAnswerDate GirfgkqcBupdeqpuufGcphdwx51/12/2019Hunger ScreeningAnswer Date RecordedWithin the past 12 months we worried whether our food would run out before we got money to buy more.Never True07/12/2025Within the past 12 months the food we bought just didn't last and we didn't have money to get more.Never True07/12/2025Purpose - LifeAnswerDate RecordedPurpose and direction in life Ymiaxmy3109/12/2020ex and Gender InformationValueDate RecordedSex Assigned at BirthNot on fileLegal GfjWqwl6803/07/2015 11:39 AM EDTGender IdentityNot on file Sexual OrientationNot on filedocumented as of this encounter Miscellaneous Notes * Telephone Encounter - Zhanna Gabriel RN - 07/25/2025 8:52 AM EST DC to [place] after transplant services 07/24/25 documented in this [...] Care Teams Team MemberRelationshipSpecialtyStart DateEnd Date Abebe Setwart MD [address] [place] [address], [address] [place] [address] PCP - XvmfcdpRugazrcwcd37/20/17documented as of this encounter
--- OUTSIDE RECORDS SUMMARY | 2025-07-31 15:41 | XMS_ITS | Patient Health Record ---
Author Organization [facility] [place] Address [address] [place] [address] Care Team Providers Care Concrete Mixing Truck Driver Name Role Phone Abebe Stewart MD Primary Care Provider Abebe Nazario Unavailable [phone] Allergies Allergen (clinical drug ingredient) Drug/Non Drug [...] W/U Status Risk Notes Problem Essential hypertension (04569343 ) Essential (primary) hypertension (I10) ActiveconfirmedProblemPrimary hyperparathyroidism (04816701)Primary hyperparathyroidism (E21.0)ActiveconfirmedProblemChronic kidney disease stage 5 (597541530)Chronic kidney disease, stage 5 (N18.5)ActiveconfirmedProblemChronic kidney disease stage 4 (064029792)Chronic kidney disease (CKD) stage G4/A1, severely decreased [...]
--- OUTSIDE RECORDS SUMMARY | 2025-07-31 15:41 | XMS_ITS | Encounter Summary ---
Author Organization [facility] Address [address] [place] [address] Care Team Providers Care Meat Specialist Name Role Phone Abebe Stewart MD Primary Care Provider [phone] Abebe Tan MD Unavailable Encounter Details DateTypeDepartmentCare Team (Latest Contact Info)Gnacrcusnxf79/07/2025Telephone [facility] Transplant [address] [place] [address] SortorRadha RN Social History Tobacco UseTypesPacks/DayYears UsedDateSmoking Tobacco: WlmfpvMsienmknpv4341 - 1974Passive Smoke Exposure: PastSmokeless Tobacco: NeverAlcohol [...] week04/05/2025How often do you attend evangelical or voodoo services?Never04/05/2025Do you belong to any clubs or organizations such as evangelical groups, unions, fraternal or athletic groups, or school groups?No 04/05/2025How often do you attend meetings of the clubs or organizations you belong to?Never04/05/2025re you , , , , never , or living with a partner?Hcykgklmn00/04/2025UDIT-CAnswerDate Recorded Q1: How often do you have a drink containing alcohol?Never04/05/2025Q2: How many drinks containing alcohol do you have on a typical day when you are drinking? Patient does not drink04/05/2025Q3: How often do you have six or more drinks on one occasion?Never04/05/2025PHQ-2AnswerDate RecordedPatient Health Questionnaire-2 Qfrnb889Finfillmore [facility] [place] of Occupational Health - Occupational Stress QuestionnaireAnswerDate RecordedDo you feel stress - tense, restless, nervous, or anxious, or unable to sleep at night because yourmind is troubled all the time - these days?Only a jizhrg1004/05/2025Humiliation, Afraid, Rape, and Kick questionnaireAnswerDate RecordedWithin the last year, have you been afraid of your partner or ex-partner?No07/13/2025Emotionally AbusedNot on file07/13/2025Physically AbusedNot on file07/13/2025Sexually AbusedNot on file 07/13/2025Overall Financial Resource Strain (CARDIA)AnswerDate RecordedHow hard is it for you to pay for the very basics like food, housing, medical care, and heating?Not hard at all07/13/2025HC UtilitiesAnswerDate RecordedIn the past 12 months has the [employer], gas, oil, or water [employer] threatened to shut off services in your [...] homeless or living in a mcfp (including now)?No07/13/2025Hunger Vital Sign AnswerDate RecordedWithin the past 12 months, you worried that your food would run out before you got the money to buymore.Never true07/13/2025Within the past 12 months, the food you bought just didn't last and you didn't have money to get more.Never true07/13/2025Sex and Gender InformationValueDate RecordedSex Assigned at VcoksVoax98/20/2025 6:43 AM ESTLegal TwbSllo8101/29/2022 12:45 AM EDT Gender MpspldduWmhf46/20/2025 7:43 AM ESTSexual OrientationHeterosexual or Bvrhpzvj86/20/2025 7:43 AM ESTdocumented as of this encounter Functional Status * Suicidal IdeationQuestionAnswerDate of AssessmentAuthor1. Wish to be (Lifetime)No07/13/2025 9:05 PM Adrienne Simons RN2. Non-Specific Active Suicidal Thoughts (Lifetime)No07/13/2025 9:05 PM Adrienne Simons RN documented as of this encounter Progress Notes * Radha Bill RN - 07/08/2025 3:24 PM EST [facility] nurse Cecile called [facility] to inform that [...] Plan of Treatment DateTypeDepartmentCare Team (Latest Contact Info)Ajomrzoeodn59/05/2026 8:00 AM ESTFollow-Up [facility] Transplant [address] [place] [phone] documented as of this encounter Goals GoalPatient Goal TypeAssociated ProblemsRecent ProgressPatient-Stated?Author Blood Pressure < 140/90 Blood Tfxwbqkn719/85(07/24/2025 9:11 AM EST)Crista March RNdocumented as of this encounter Visit Diagnoses Not on filedocumented in this encounter Additional Health Concerns InfectionOnset DateLast IndicatedResolved TimeC.difficile Comment:External result, treatment incomplete 515COVID-19 (confirmed) Comment:Tested positive last 07/08/2025 at the [facility]. Patient is immune compromised documented as of this encounter Care Teams Team MemberRelationshipSpecialtyStart DateEnd Date Abebe Stewart MD [address] [place] [address], [address] [place] [address] PCP - GeneralInternal Medicine09/21/24 Abebe Tan MD [address] [place] [phone] Consulting PhysicianUrology04/07/25documented as of this encounter
--- OUTSIDE RECORDS SUMMARY | 2025-07-31 15:41 | XMS_ITS | Encounter Summary ---
Author Organization [facility] Address [address] [place] [address] Care Team Providers Care Clinical Team Lead Name Role Phone Abebe Stewart MD Primary Care Provider [phone] Abebe Tan MD Unavailable Reason for Visit * ReasonOnset DateCommentsAppointment (Rescheduled)06/19/2025 Encounter Details DateTypeDepartmentCare Team (Latest Contact Info)Qqvksgurnat13/18/2025Telephone [facility] [address] [facility], Floor [address] [place] [address] Shivani Boyd MA Appointment (Rescheduled) Social History Tobacco UseTypesPacks/DayYears UsedDateSmoking Tobacco: TchfayGhoysthkcc4240 - 1974Passive Smoke Exposure: PastSmokeless Tobacco: NeverAlcohol UseStandard Drinks/WeekCommentsYes0 (1 standard drink = 0.6 oz pure alcohol)rareSocial Connection and Isolation PanelAnswerDate RecordedIn a typical week, how many times do you talk on the phone with family, friends, or neighbors?More than three times a week04/05/2025How often do you get together with friends or relatives?More than three times a week04/05/2025How often do you attend gnosticist or sikhism services?Never04/05/2025Do you belong to any clubs or organizations such as gnosticist groups, unions, fraternal or athletic groups, or school groups?No 04/05/2025How often do you attend meetings of the clubs or organizations you belong to?Never04/05/2025re you , , , , never , or living with a partner?Cjkcpnbsg55/04/2025UDIT-CAnswerDate Recorded Q1: How often do you have a drink containing alcohol?Never04/05/2025Q2: How many drinks containing alcohol do you have on a typical day when you are drinking? Patient does not drink04/05/2025Q3: How often do you have six or more drinks on one occasion?Never04/05/2025PHQ-2AnswerDate RecordedPatient Health Questionnaire-2 Twcgp703Finun[facility] [place] of Occupational Health - Occupational Stress QuestionnaireAnswerDate RecordedDo you feel stress - tense, restless, nervous, or anxious, or unable to sleep at night because yourmind is troubled all the time - these days?Only a lllxll2304/05/2025Humiliation, Afraid, Rape, and Kick questionnaireAnswerDate RecordedWithin the last year, have you been afraid of your partner or ex-partner?No07/13/2025Emotionally AbusedNot on file07/13/2025Physically AbusedNot on file07/13/2025Sexually AbusedNot on file 07/13/2025Overall Financial Resource Strain (CARDIA)AnswerDate RecordedHow hard is it for you to pay for the very basics like food, housing, medical care, and heating?Not hard at all07/13/2025HC UtilitiesAnswerDate RecordedIn the past 12 months has the [employer], gas, oil, or water [employer] threatened to shut off services in your [...] homeless or living in a correction (including now)?No07/13/2025Hunger Vital Sign AnswerDate RecordedWithin the past 12 months, you worried that your food would run out before you got the money to buymore.Never true07/13/2025Within the past 12 months, the food you bought just didn't last and you didn't have money to get more.Never true07/13/2025Sex and Gender InformationValueDate RecordedSex Assigned at GwxnyDgdx31/20/2025 6:43 AM ESTLegal CmpFdbn9401/29/2022 12:45 AM EDT Gender ZrjnptfjUbwk36/20/2025 7:43 AM ESTSexual OrientationHeterosexual or Tyycmflh70/20/2025 7:43 AM ESTdocumented as of this encounter Functional Status * Suicidal IdeationQuestionAnswerDate of AssessmentAuthor1. Wish to be (Lifetime)No07/13/2025 9:05 PM Adrienne Simons RN2. Non-Specific Active Suicidal Thoughts (Lifetime)No07/13/2025 9:05 PM Adrienne Simons RN documented as of this encounter Miscellaneous Notes * Telephone Encounter - Shivani Boyd MA - 06/19/2025 8:54 AM EST Deana ([facility]) called to reschedule pt's appt (06/19/2025 10:30am Ata Singh); pt scheduled 07/24/2025 9:40am Ata Singh documented in this encounter Plan of Treatment DateTypeDepartmentCare Team (Latest Contact Info)Luhipzytxwr77/05/2026 8:00 AM ESTFollow-Up [facility] Transplant [address] [place] [address] documented as of this encounter Goals GoalPatient Goal TypeAssociated ProblemsRecent ProgressPatient-Stated?Author Blood Pressure < 140/90 Blood Unbuueuy867/85(07/24/2025 9:11 AM EST)Crista March RNdocumented as of this encounter Visit Diagnoses Not on filedocumented in this encounter Additional Health Concerns InfectionOnset DateLast IndicatedResolved TimeC.difficile Comment:External result, treatment incomplete OVID-19 (confirmed) Comment:Tested positive [facility] 07[facility]08[facility]2025 at [facility]. Patient is immune compromised documented as of this encounter Care Teams Team MemberRelationshipSpecialtyStart DateEnd Date Abebe Stewart MD [address] [place] [address], [address] [place] [id number] PCP - GeneralInternal Medicine09/21/24 Abebe Tan MD [address] [place] [phone] Consulting PhysicianUrology04/07/25documented as of this encounter
--- OUTSIDE RECORDS SUMMARY | 2025-07-31 15:41 | XMS_ITS | Encounter Summary ---
Author Organization [facility] Address [address] [place] [address] Care Team Providers Care Yarn Examiner Skeins Name Role Phone Abebe Stewart MD Primary Care Provider [phone] Abebe Tan MD Unavailable Encounter Details DateTypeDepartmentCare Team (Latest Contact Info)Rfedckaayyg28/26/2025Telephone [facility] Nephrology [address] [place] [address] Delano Klein MD [address] [place], [place] [id number] Social History Tobacco UseTypesPacks/DayYears UsedDateSmoking Tobacco: [id number] - 1974Passive Smoke Exposure: PastSmokeless Tobacco: NeverAlcohol [...] often do you attend roman catholic or samaritan services?Never04/05/2025Do you belong to any clubs or organizations such as roman catholic groups, unions, fraternal or athletic groups, or school groups?No 04/05/2025How often do you attend meetings of the clubs or organizations you belong to?Never04/05/2025re you , , , , never , or living with a partner?Khcyevokj51/04/2025UDIT-CAnswerDate Recorded Q1: How often do you have a drink containing alcohol?Never04/05/2025Q2: How many drinks containing alcohol do you have on a typical day when you are drinking? Patient does not drink04/05/2025Q3: How often do you have six or more drinks on one occasion?Never04/05/2025PHQ-2AnswerDate RecordedPatient Health Questionnaire-2 Bjzvd374[facility] [place] [facility] Occup[facility] - Occupational Stress QuestionnaireAnswerDate RecordedDo you feel stress - tense, restless, nervous, or anxious, or unable to sleep at night because yourmind is troubled all the time - these days?Only a tgvczb1704/05/2025Humiliation, Afraid, Rape, and Kick questionnaireAnswerDate RecordedWithin the last year, have you been afraid of your partner or ex-partner?No07/13/2025Emotionally AbusedNot on file07/13/2025Physically AbusedNot on file07/13/2025Sexually AbusedNot on file 07/13/2025Overall Financial Resource Strain (CARDIA)AnswerDate RecordedHow hard is it for you to pay for the very basics like food, housing, medical care, and heating?Not hard at all07/13/2025HC UtilitiesAnswerDate RecordedIn the past 12 months has the [place], gas, oil, or water [employer] threatened to shut off services in your [...] true07/13/2025Sex and Gender InformationValueDate RecordedSex Assigned at XvhihZnxo51/20/2025 6:43 AM ESTLegal DgeMixf3601/29/2022 12:45 AM EDT Gender BvcezbhrJrde39/20/2025 7:43 AM ESTSexual OrientationHeterosexual or Wewpwile33/20/2025 7:43 AM ESTdocumented as of this encounter Miscellaneous Notes * Telephone Encounter - Farida Duque RN - 07/27/2025 6:47 PM EST JUANA ortega contacted the oncall TC to update transplant on the patient and the positive DVT, and labs. TC suggested that Dr. Klein call her directly because it would be easier than her telling me to only have me tell Dr Klein that would need to contact her anyway it are needed. Dr. Klein called her directly. Farida Duque RN documented in this encounter Plan of Treatment DateTypeDepartmentCare Team (Latest Contact Info)Wvqtzdjpgbb77/05/2026 8:00 AM ESTFollow-Up [facility] Trans[facility] [address] [place] [address] documented as of this encounter Goals GoalPatient Goal TypeAssociated ProblemsRecent ProgressPatient-Stated?Author Blood Pressure < 140/90 Blood Yukseqfj238/85(07/24/2025 9:11 AM EST)Crista March RNdocumented as of this encounter Visit Diagnoses Not on filedocumented in this encounter Additional Health Concerns InfectionOnset DateLast IndicatedResolved TimeC.difficile Comment:External result, treatment incomplete /17/2025COVID-19 (confirmed) Comment:Tested positive last 07/08/2025 at the [facility]. Patient is immune compromised MDR Dnqnqy98documented as of this encounter Care Teams Team MemberRelationshipSpecialtyStart DateEnd Date Abebe Stewart MD [address] [place] [address], [address] [place], [place] [id number] PCP - GeneralInternal Medicine09/21/24 Abebe Tan MD [address] [place] [address] Consulting PhysicianUrology04/07/25documented as of this encounter
--- OUTSIDE RECORDS SUMMARY | 2025-07-31 15:41 | XMS_ITS | Encounter Summary ---
Author Organization [facility] Address [address] [place] [address] Care Team Providers Care Case Management Social Worker Name Role Phone Abebe Stewart MD Primary Care Provider [phone] Abebe Tan MD Unavailable Reason for Visit * ReasonOnset DateCommentsAppointment (Rescheduled)07/19/2025ppointment (Cancellation)07/19/2025 Encounter Details DateTypeDepartmentCare Team (Latest Contact Info)Uxopxhkzote41/18/2025Telephone [facility] Clinic [address] [facility], Floor [address] [place] [address] Shivani Boyd MA Appointment (Rescheduled) ; Appointment (Cancellation) Social History Tobacco UseTypesPacks/DayYears UsedDateSmoking Tobacco: [id number] - 1974Passive Smoke Exposure: PastSmokeless Tobacco: NeverAlcohol UseStandard Drinks/WeekCommentsYes0 (1 standard drink = 0.6 oz pure alcohol)rareSocial Connection and Isolation PanelAnswerDate RecordedIn a typical week, how many times do you talk on the phone with family, friends, or neighbors?More than three times a week04/05/2025How often do you get together with friends or relatives?More than three times a week04/05/2025How often do you attend orthodox or mu-ism services?Never04/05/2025Do you belong to any clubs or organizations such as orthodox groups, unions, fraternal or athletic groups, or school groups?No 04/05/2025How often do you attend meetings of the clubs or organizations you belong to?Never04/05/2025re you , , , , never , or living with a partner?Fvirommlh76/04/2025UDIT-CAnswerDate Recorded Q1: How often do you have a drink containing alcohol?Never04/05/2025Q2: How many drinks containing alcohol do you have on a typical day when you are drinking? Patient does not drink04/05/2025Q3: How often do you have six or more drinks on one occasion?Never04/05/2025PHQ-2AnswerDate RecordedPatient Health Questionnaire-2 Olvcl605Finuint[facility] [place] of Occupational Health - Occupational Stress QuestionnaireAnswerDate RecordedDo you feel stress - tense, restless, nervous, or anxious, or unable to sleep at night because yourmind is troubled all the time - these days?Only a gpsbhm6404/05/2025Humiliation, Afraid, Rape, and Kick questionnaireAnswerDate RecordedWithin the last year, have you been afraid of your partner or ex-partner?No07/13/2025Emotionally AbusedNot on file07/13/2025Physically AbusedNot on file07/13/2025Sexually AbusedNot on file 07/13/2025Overall Financial Resource Strain (CARDIA)AnswerDate RecordedHow hard is it for you to pay for the very basics like food, housing, medical care, and heating?Not hard at all07/13/2025HC UtilitiesAnswerDate RecordedIn the past 12 months has the [employer], gas, oil, or water [employer] threatened to shut off services in your [...] true07/13/2025Sex and Gender InformationValueDate RecordedSex Assigned at UbefdTcml70/20/2025 6:43 AM ESTLegal DmuBhyw2001/29/2022 12:45 AM EDT Gender TtdkiqxuJfbr46/20/2025 7:43 AM ESTSexual OrientationHeterosexual or Xmnacmea13/20/2025 7:43 AM ESTdocumented as of this encounter Miscellaneous Notes * Telephone Encounter - Shivani Boyd MA - 07/19/2025 3:37 PM EST Deana ([facility]) called to CX appt (08/09/2025 10:55am w/Izaiah Singh pt will not have transportation; Deana will call to reschedule appt) * Telephone Encounter - Shivani Boyd MA - 07/19/2025 8:49 AM EST Outgoing call spk w/pt to reschedule appt (07/24/2025 9:40am Ata Singh); pt scheduled 08/09/2025 10:55am laura/Izaiah Singh. documented in this encounter Plan of Treatment DateTypeDepartmentCare Team (Latest Contact Info)Lzhgaikjttg78/05/2026 8:00 AM ESTFollow-Up [facility] Transplant [address] [place] [address] documented as of this encounter Goals GoalPatient Goal TypeAssociated ProblemsRecent ProgressPatient-Stated?Author Blood Pressure < 140/90 Blood Ictwolao567/85(07/24/2025 9:11 AM EST)Crista March, RNdocumented as of this encounter Visit Diagnoses Not on filedocumented in this encounter Additional Health Concerns InfectionOnset DateLast IndicatedResolved TimeC.difficile Comment:External result, treatment incomplete /OVID- (confirmed) Comment:Tested positive last 07/08/2025 at the [facility]. Patient is immune compromised /MDR Xaaini24documented as of this encounter Care Teams Team MemberRelationshipSpecialtyStart DateEnd Date Abebe Stewart MD [address] [place] [address], [address] [place] [address] PCP - GeneralInternal Medicine09/21/24 Abebe Tan MD [address] [place] [phone] Consulting PhysicianUrology04/07/25documented as of this encounter
--- OUTSIDE RECORDS SUMMARY | 2025-07-31 15:41 | XMS_ITS | Clinical Summary ---
Author Organization Parrable tem Address [id number] [address] [place] [address] Care Team Providers Care [employer] Director Name Role Phone Abebe Stewart MD Primary Care Provider [phone] Allergies Active AllergyReactionsCriticalityNoted OlmiLfldyswmThduttlztb25/22/2021 Leg edema Shellfish MjvbcmzLsudyezzCxvyau21/01/2021 Medications MedicationSigDispense QuantityRefillsLast FilledStart DateEnd DateStatus bumetanide [...] 1 TABLET (20 MG) BY MOUTH AT UDRRIAG79/22/2025Active finasteride (PROSCAR) 5 mg tablet Take 1 [...] WATER AND DRINK ONCE DAILY IN THE IIYYKKS0704/04/2025tive tamsulosin (FLOMAX) 0.4 mg capsule Take 2 [...] than 15 ml/min05/23/2024Long term (current) use of qpgkmxckwdgpuz75/14/2021 HypertensionH/O splenectomy Resolved Problems ProblemNoted DateDiagnosed DateResolved DateAcute deep vein thrombosis (DVT) of proximal vein of left lower tipoglzkg70VT (deep venous thrombosis)/Stage 4 chronic kidney rccrvor1805/23/2024 Encounters DateTypeDepartmentCare DkywJbwwhidqoww24/24/2025Telephone [facility] [address] [place] [address] Zhanna Gabriel, nutritional assistant Of Care07/13/2025Results [facility] [address] [place] [address] Shante Paz RN Blood culture, Blood culture, Urine Culture Urine, Clean Catch Midstream 07/12/2025 3:27 PM EST - 07/13/2025 1:16 AM ESTEmergency [facility] [address] [place] [address] Kristen Pettit DO Acute cystitis without hematuria (Primary Dx) Discharge Disposition: Home07/12/20256179Yvgnog78/14/2025Refill [facility] [address] [place] [address] Abebe Stewart MD 05/30/2025Telephone [facility] [address] [place] [address] Zhanna Gabriel, RN Care Gszapifyis93/27/2025Orders Only [facility] [address] [place] [phone] External, Scanning Provider 05/28/2025Refill [facility] [address] [place] [address] Abebe Stewart MD 05/25/2025 10:45 AM EDTOffice Visit [facility] [address] [place] [address] Abebe Stewart MD Status post kidney transplant (Primary Dx); Urinary burkbwler06/24/3061Kxagik10/03/2025Telephone [facility] [address] [place] [address] Kandi Ramirez RN Transition Of Care05/03/2025Telephone [facility] [address] [place] [address] Evita Ortiz, JUANA 05/03/2025Telephone [facility] [address] [place] [address] Zhanna Gabriel, JUANA from Last 3 Months Immunizations ImmunizationAdministration DatesNext DueInfluenza, Injectable, quadrivalent (PF) 07/01/2018Pneumococcal Conjugate 13-Xvsenz8808/27/2015Pneumococcal Polysaccharide 09/19/2010 Social History Tobacco UseTypesPacks/DayYears UsedDateSmoking [...] more drinks on one occasion?Never09/12/2020HQ-2AnswerDate Recorded Total Rbkty625hildcareAnswerDate RouooireZdqkjupofZansapu32/12/2019 EmploymentAnswerDate HygdorefXcypqrjetgCeudkqv45/12/2019Hunger ScreeningAnswer Date RecordedWithin the past 12 months we worried whether our food would run out before we got money to buy more.Never True07/12/2025Within the past 12 months the food we bought just didn't last and we didn't have money to get more.Never True07/12/2025Purpose - LifeAnswerDate RecordedPurpose and direction in life Pdzlkdj9009/12/2020ex and Gender InformationValueDate RecordedSex Assigned at BirthNot on fileLegal CaePbgl5403/07/2015 11:39 AM EDTGender IdentityNot on file Sexual OrientationNot on file Last Filed Vital Signs Vital SignReadingTime TakenCommentsBlood Csqpzfgq298/7807/13/2025 12:45 AM EST Vvlhy991607/12/2025 8:50 PM FQKWotjkceavef17.9 ??C (98.4 ??F)07/12/2025 3:31 PM ESTRespiratory Khjq258209/12/2024 3:31 PM ESTOxygen Skfrknvmjv89%07/12/2025 7:15 PM ESTInhaled Oxygen Concentration--Abonai31.1 kg (192 lb 1.6 oz)07/12/2025 3:31 PM NLEEehmzm708.4 cm (6' 0.99 )05/25/2025 11:02 AM EDTBody Mass Index25.35 05/25/2025 11:02 AM EDT Plan of Treatment Health MaintenanceDue DateLast DoneCommentsMedicare Annual Wellness Visit 1955dult BMI Follow Up Plan1972Fall Risk Jyhwjpbdh23/29/2019COVID- 19 Vaccine ( season)/03/2025, 04/06/2024, 07/15/2023, Additional history existsInfluenza Fcdvufj05/12/2023, 07/15/2023, 07/01/2018Depression Qdjapgpgu72dult BMI Gpnnzejlf77/11/2026 07/12/2025Tobacco Udahbskoi29/11/68597909/12/20244579Cmbqmjwqczi31/06/88676010/05/2022, 10/05/2022, 08/22/2015DTaP,Tdap and Td Vaccines (2 - Td or Tdap)12/15/2034 12/15/2024RSV ( or age 60+ yrs)Cizqiagqp70/23/2024Zoster (Shingles) EmgtjhgIutymvjnb40/23/2024, 07/15/2023 Goals GoalPatient Goal TypeAssociated ProblemsRecent ProgressPatient-Stated?Author Home Katharina Washington LSW Note: Evaluation of progress towards goal: Safe dc transition from hospital to home pending clinical course. Medical Devices Not on file Procedures Procedure NamePriorityDate/TimeAssociated DiagnosisCommentsPOCT NURSING URINE MACROSCOPIC ZWNmzelfb53/11/2025 10:11 PM EST ER EXTRA URINE DFQFTJWDUQ93/11/2025 10:05 PM EST ER EXTRA RZINKKFOS48/11/2025 10:05 PM EST URINE ALNFTGQWZWW66/11/2025 10:05 PM EST BLOOD GKBHLFUQUVS12/11/2025 9:01 PM EST BLOOD FPTGOQSELAL11/11/2025 9:01 PM EST TROP I, HIGH SENSITIVITY 1 PNWFJMTJ42/11/2025 5:[address] ABDOMEN AND PELVIS WO STXUEEEY41/11/2025 5:16 PM EST XR CHEST 1 PTSWDH1407/12/2025 5:03 PM EST EXTRA TUBES BLUE KGMMkcstij71/11/2025 4:36 PM EST EXTRA XYWNHLcjgrto99/11/2025 4:36 PM EST TROPONIN I, HIGH SENSITIVITY 0 SAVCXSXP54/11/2025 4:36 PM EST TROPONIN I, HIGH SENSITIVITY 0 VRLOTMDF55/11/2025 4:36 PM EST B-TYPE NATRIURETIC AVISIZMRTXQ62/11/2025 4:36 PM EST LDQWYAKVDN41/11/2025 4:36 PM EST COMPREHENSIVE METABOLIC BAVZRLECM71/11/2025 4:36 PM EST CBC WITH AUTO JBAERZWJFEZZEFDB46/11/2025 4:36 PM EST XR ABDOMEN AP 1 FYJbubktb96/25/2025 2:14 PM BSHVOXYPAAYZNS21/06/2023 10:43 AM EST from Last 3 Months or Most Recently Relevant to Health Maintenance Results * (ABNORMAL) POCT Nursing Urine Macroscopic UA (07/12/2025 10:11 PM EST) ComponentValueRef RangeTest MethodAnalysis TimePerformed AtPathKaiser Permanente [facility] Urine Specific Gravity1.0201.010, 1.015, 1.020, 1.3396207/12/2025 10:12 PM EST[facility] Urine Leukocyte Esterase Small(A)Epuuxrbg56/11/2025 10:12 PM [facility] Urine NitritePositive(A)Khllabxz35/11/2025 10:12 PM [facility] Urine pH7.05.0, 6.0, 6.5, 7.0, 7.5, 8.0, 8.5, 5.5 07/12/2025 10:12 PM ESTPROM[facility]IDEWITT [facility] Urine Vzoeiha48 mg/dL(A)Lhlslseh06/11/2025 10:12 PM ESTPROM[facility]IDEW[facility] Urine XxgozqlZwxozcguHgdtjcqm50/11/2025 10:12 PM ESTPROM[facility]IDEWITT [facility] Urine FfzuzunBrbgeeczTtvbzfls80/11/2025 10:[address] [facility] Urine Urobilinogen0.2 E.U./dL07/12/2025 10:[address] [facility] Urine BilirubinNegativeNegative 07/12/2025 10:[address] [facility] Urine Blood/HGB CagviexkHyvgcrhv47/11/2025 10:12 PM [facility] Specimen (Source)Anatomical Location / LateralityCollection Method / Volume Collection TimeReceived YtvvCogcf44/11/2025 10:11 PM EST07/12/2025 10:12 PM EST Narrative Authorizing ProviderResult TypeResult Samuel Pettit DOPOINT OF CARE TEST ORDERABLESFinal ResultPerforming OrganizationAddressCity/State/ZIP CodePhone Number [address] [place] [address], [place] * Extra Urine [place] (07/12/2025 10:05 PM EST)ComponentValueRef RangeTest Method Analysis TimePerformed AtPathologist SignatureExtra TubeAuto Resulted 07/13/2025 12:02 AM [facility] (Source) Anatomical Location / LateralityCollection Method / VolumeCollection Time Received TimeUrineUrine specimen collection, clean catch / Exvrslf7407/12/2025 10:05 PM EST07/12/2025 10:14 PM EST Narrative Authorizing ProviderResult TypeResult Samuel Pettit DOURINE ORDERABLES Final ResultPerforming OrganizationAddressCity/State/ZIP CodePhone Number [address] [place] [address], [place] * Extra Urine (07/12/2025 10:05 PM EST)ComponentValueRef RangeTest Method Analysis TimePerformed AtPathologist SignatureExtra TubeAuto Resulted 07/13/2025 12:02 AM [facility] (Source) Anatomical Location / LateralityCollection Method / VolumeCollection Time Received TimeUrineUrine specimen collection, clean catch / Bcmpfjk4607/12/2025 10:05 PM EST07/12/2025 10:14 PM EST Narrative Authorizing ProviderResult TypeResult StatusKristen Pettit DOURINE ORDERABLES Final ResultPerforming OrganizationAddressCity/State/ZIP CodePhone Number [facility] [address] [place] [address], * (ABNORMAL) Urine Culture Urine, Clean Catch Midstream (07/12/2025 10:05 PM EST)ComponentValueRef RangeTest MethodAnalysis TimePerformed AtPathologist SignatureCULTURE RESULTS>100,000 CFU/mL Pseudomonas aeruginosa(A)07/15/2025 4:42 PM [facility] LABORATORYSpecimen (Source)Anatomical Location / LateralityCollection Method / VolumeCollection TimeReceived Time UrineUrine specimen collection, clean catch / Uqvquqa9107/12/2025 10:05 PM EST 07/12/2025 10:14 PM EST Narrative OrganismAntibioticMethodSusceptibilityPseudomonas aeruginosaPIPERACIL/TAZOBACTAM 16: Susceptible Pseudomonas aeruginosaCefepime 4.0: Susceptible Pseudomonas aeruginosaMeropenem 2.0: Susceptible Pseudomonas aeruginosaAmikacin 2.0: Susceptible Pseudomonas aeruginosaTobramycin <=1.0: Susceptible Pseudomonas aeruginosaCiprofloxacin 1.0: Intermediate Pseudomonas aeruginosaLevofloxacin 4.0: Resistant Authorizing ProviderResult TypeResult StatusKristen Pettit DOMICROBIOLOGY - GENERAL ORDERABLESFinal ResultPerforming OrganizationAddressCity/State/ZIP Code Phone Number [facility] [address] [place] [address], [place] [phone] * Blood culture (07/12/2025 9:01 PM EST) Only the most recent of2 resultswithin the time period is included. ComponentValueRef RangeTest MethodAnalysis TimePerformed AtPathologist Signature CULTURE RESULTSNO GROWTH 5 DAYS07/18/2025 3:02 AM [facility] LABORATORYSpecimen (Source)Anatomical Location / LateralityCollection Method / VolumeCollection TimeReceived TimeBloodVenous blood / UnknownVenipuncture / Zrtfcyo0707/12/2025 9:01 PM EST07/12/2025 9:24 PM EST Narrative [facility] - 07/18/2025 3:02 AM EST Suboptimal volume of blood collected, Results may be affected. Authorizing ProviderResult TypeResult Samuel Pettit DOMICROBIOLOGY - GENERAL ORDERABLESFinal ResultPerforming OrganizationAddressCity/State/ZIP Code Phone Number [facility] [address] [place] [address], [place] [phone] * (ABNORMAL) Troponin I, High Sensitivity 1 Hour (07/12/2025 5:50 PM EST) ComponentValueRef RangeTest MethodAnalysis TimePerformed AtPathologist SignatureTROPONIN I, HIGH QWIEFAFDSNQ87(H)<21 ng/L109/12/2024 6:32 PM EST [facility] (Source)Anatomical Location / LateralityCollection Method / VolumeCollection TimeReceived TimeBloodVenous blood / UnknownVenipuncture / Nfezxdf6407/12/2025 5:50 PM EST07/12/2025 5:57 PM EST Narrative [facility] - 07/12/2025 6:32 PM EST Elevations of hs-Troponin may be due to causes other than myocardial ischemia. Recommend serial hs-Troponin testing be performed. For the initial evaluation and management of chest pain patients, refer to the algorithms linked below. Emergency Patient: [email or web address] Inpatient: [email or web address] Authorizing ProviderResult TypeResult Samuel Pettit DOLAB BLOOD ORDERABLESFinal ResultPerforming OrganizationAddressCity/State/ZIP CodePhone Number [facility] [address] [facility] [place] [address], [place] * CT abdomen and pelvis without [...] severely dilated ureter. There are chronically atrophic [place] kidneys with a left renal cyst.There is no evidence for collecting system dilatation in either the [place] kidneys. There is a small amount of [...] anastomotic stricture is recommended. 2. Chronically atrophic [place] kidneys with a left renal cyst. There are no renal or ureteral stones. There is no collecting system dilatation in the atrophic [place] kidneys. 3. Trace amount of perihepatic free [...] a severely dilated ureter. There arechronically atrophic [place] kidneys with a left renal cyst. There is noevidence for collecting system dilatation in either the [place] kidneys.There is a small amount of perihepatic [...] anastomotic stricture is recommended. 2. Chronically atrophic [place] kidneys with a left renal cyst. There areno renal or ureteral stones. There is no collecting system dilatation inthe atrophic [place] kidneys. 3. Trace amount of perihepatic free [...] on 07/12/2025 5:32 PM Authorizing ProviderResult TypeResult Samuel Pettit [facility] CT ORDERABLES Final Result * X-ray [...] MD on 07/12/2025 5:06 PM Authorizing ProviderResult TypeYaritzault Samuel WARD DIAGNOSTIC IMAGING ORDERABLESFinal Result * (ABNORMAL) Troponin I, High Sensitivity 0 Hour (07/12/2025 4:36 PM EST) ComponentValueRef RangeTest MethodAnalysis TimePerformed AtPathologist SignatureTROPONIN I, HIGH VCHFRLXREOD21(H)<21 ng/L109/12/2024 5:10 PM EST [facility] (Source)Anatomical Location / LateralityCollection Method / VolumeCollection TimeReceived TimeBloodVenous blood / UnknownVenipuncture / Epqalmj2007/12/2025 4:36 PM EST07/12/2025 4:39 PM EST Narrative Authorizing ProviderResult TypeResult StatusAlisa Kia DOMÍNGUEZAB BLOOD ORDERABLESFinal ResultPerforming OrganizationAddressCity/State/ZIP CodePhone Number [address] [address], * Light Blue Top (07/12/2025 4:36 PM EST)ComponentValueRef RangeTest Method Analysis TimePerformed AtPathologist SignatureExtra TubeAuto Resulted 07/12/2025 6:02 PM ESTC[facility] (Source) Anatomical Location / LateralityCollection Method / VolumeCollection Time Received TimeBloodVenous blood / Ebyawox8407/12/2025 4:36 PM EST07/12/2025 4:41 PM EST Narrative Authorizing ProviderResult TypeResult StatusAlisa Kia DOMÍNGUEZAB BLOOD ORDERABLESFinal ResultPerforming OrganizationAddressty/State/ZIP CodePhone Number [address] [address], * (ABNORMAL) CBC auto differential (07/12/2025 4:36 PM EST)ComponentValueRef RangeTest MethodAnalysis TimePerformed AtPathologist MshbnesswDEN13.5(H)4 - 11 10^07/12/2025 5:28 PM ESTHIGHLAND DISTRICT HOSPITALRBC Count2.87 (L)4.1 - 5.7 10^12/L109/12/2024 5:28 PM [facility] Hemoglobin9.6(L)13 - 17 g/dL07/12/2025 5:28 PM ESTHIGHLAND DISTRICT HOSPITALHematocrit28.8(L)39 - 50 %07/12/2025 5:28 PM ESTHIGHLAND DISTRICT HOSPITALMCV10080 - 100 fL07/12/2025 5:28 PM [facility]ENTERMCH33.427 - 34 pg07/12/2025 5:28 PM [facility]ENTERMCHC33.332 - 36 g/dL07/12/2025 5:28 PM [facility] CENTERRDW16.4(H)11.5 - 15 %07/12/2025 5:28 PM [facility] CENTERPlatelet Qfwmm119746 - 450 10^9/L109/12/2024 5:28 PM EST [facility]ITALMPV9.67 - 12 fL07/12/2025 5:28 PM EST [facility]ITALNeutrophils %87%07/12/2025 5:28 PM EST [facility]ITALComment:This is an appended report. These results have been appended to a previously preliminary verified report. Lymphocytes %9%07/12/2025 5:28 PM [facility] Comment:This is an appended report. These results have been appended to a previously preliminary verified report.Monocytes %4%07/12/2025 5:28 PM EST [facility]Comment:This is an appended report. These results have been appended to a previously preliminary verified report. Neutrophils Absolute (M)10.9(H)1.5 - 6.6 10^9/L109/12/2024 5:28 PM [facility]ENTERComment:This is an appended report. These results have been appended to a previously preliminary verified report.Lymphocytes Absolute1.11.0 - 3.5 10^9/L109/12/2024 5:28 PM [facility]ENTERComment:This is an appended report. These results have been appended to a previously preliminary verified report.Monocytes Absolute0.50.0 - 0.9 10^9/L109/12/2024 5:28 PM [facility]ENTERComment:This is an appended report. These results have been appended to a previously preliminary verified report.Smudge Cells1+07/12/2025 5:28 PM ESTPROMODOC MEDICAL CENTERComment:This is an appended report. These results have been appended to a previously preliminary verified report.Brisa Cells1+ 07/12/2025 5:28 PM ESTHIGHLAND DISTRICT HOSPITALComment:This is an appended report. These results have been appended to a previously preliminary verified report.RBC Fragments1+07/12/2025 5:28 PM ESTHIGHLAND DISTRICT HOSPITALComment:This is an appended report. These results have been appended to a previously preliminary verified report.Differential TypeMANUAL GLYQEUUCAGBI04/11/2025 5:28 PM [facility]ENTERComment: This is an appended report. These results have been appended to a previously preliminary verified report.Specimen (Source)Anatomical Location / Laterality Collection Method / VolumeCollection TimeReceived TimeBloodVenous blood / UnknownVenipuncture / Pokofjq3407/12/2025 4:36 PM EST07/12/2025 4:40 PM EST Narrative Authorizing ProviderResult TypeResult StatusAlisa Kia DOMÍNGUEZAB BLOOD ORDERABLESFinal ResultPerforming OrganizationAddressCity/State/ZIP CodePhone Number [address] * (ABNORMAL) B-type natriuretic peptide (07/12/2025 4:36 PM EST)ComponentValue Ref RangeTest MethodAnalysis TimePerformed AtPathologist HnvfrpfpcSYA139(H) <=100 pg/mL07/12/2025 5:46 PM ESTCOMMUNITY REGIONAL MEDICAL CENTERpecimen (Source)Anatomical Location / LateralityCollection Method / VolumeCollection TimeReceived TimeBloodVenous blood / UnknownVenipuncture / Ctaxpwi5607/12/2025 4:36 PM EST07/12/2025 4:40 PM EST Narrative Authorizing ProviderResult TypeResult StatusAlisa Kia DOMÍNGUEZAB BLOOD ORDERABLESFinal ResultPerforming OrganizationAddressCity/State/ZIP CodePhone Number [address] [place] [address], [place] * Lipase (07/12/2025 4:36 PM EST)ComponentValueRef RangeTest MethodAnalysis Time Performed AtPathologist AmictxflbBSIOYX8950 - 40 U/L109/12/2024 5:00 PM EST [facility]ENTERpecimen (Source)Anatomical Location / LateralityCollection Method / VolumeCollection TimeReceived TimeBloodVenous blood / UnknownVenipuncture / Krgaexh2407/12/2025 4:36 PM EST07/12/2025 4:39 PM EST Narrative Authorizing ProviderResult TypeResult StatusKristen CHI BLOOD ORDERABLESFinal ResultPerforming OrganizationAddressCity/State/ZIP CodePhone Number [address] [place] [address], [place] * (ABNORMAL) Comprehensive metabolic panel (07/12/2025 4:36 PM EST)Component ValueRef RangeTest MethodAnalysis TimePerformed AtPathologist SignatureSODIUM 597046 - 146 mmol/L109/12/2024 5:03 PM [facility] POTASSIUM4.63.5 - 5.0 mmol/L109/12/2024 5:03 PM ESTHIGHLAND DISTRICT HOSPITALCHLORIDE10898 - 109 mmol/L109/12/2024 5:03 PM ESTHIGHLAND DISTRICT HOSPITALCARBON MTBBEDM4037 - 32 mmol/L109/12/2024 5:03 PM ESTHIGHLAND DISTRICT HOSPITALANION GAP65 - 15 mmol/L109/12/2024 5:03 PM EST [facility]OSPITALBLOOD UREA ARXGOTXB385 - 27 mg/dL07/12/2025 5:03 PM ESTHIGHLAND DISTRICT HOSPITALCREATININE1.38(H)0.70 - 1.20 mg/dL07/12/2025 5:03 PM [facility] CENTERComment:METHOD TRACEABLE TO IDMS UOBGYYRPIELREIQ635(H)65 - 99 mg/dL07/12/2025 5:03 PM EST [facility]OSPITALCALCIUM7.8(L)8.5 - 10.5 mg/dL07/12/2025 5:03 PM [facility] CENTERTOTAL PROTEIN4.8(L)6.0 - 8.0 g/dL07/12/2025 5:03 PM [facility] CENTERALBUMIN2.2(L)3.2 - 5.3 g/dL07/12/2025 5:03 PM [facility] CENTERALKALINE PILRRTQPCHB3443 - 130 U/L109/12/2024 5:03 PM ESTHIGHLAND DISTRICT HOSPITALAST18<=41 U/L109/12/2024 5:03 PM [facility] ALT17<=40 U/L109/12/2024 5:03 PM [facility] BILIRUBIN,TOTAL0.80.3 - 1.2 mg/dL07/12/2025 5:03 PM [facility]ICAL CENTEREGFR Non-Race Eynsatapm15(L)>=60 ml/min/1.73sq.m109/12/2024 5:03 PM [facility]ENTERComment: eGFR not reported due to non-numeric value for Creatinine. Reported eGFR is based on the CKD-EPI 2020 equation that does not use a race coefficient. Specimen (Source)Anatomical Location / LateralityCollection Method / Volume Collection TimeReceived TimeBloodVenous blood / UnknownVenipuncture / Unknown 07/12/2025 4:36 PM EST07/12/2025 4:39 PM EST Narrative Authorizing ProviderResult TypeResult StatusKristen CHI BLOOD ORDERABLESFinal ResultPerforming OrganizationAddressCity/State/ZIP CodePhone Number [facility] [address] [facility] [place] [address], [place] * X-ray abdomen ap 1 view (05/26/2025 2:14 PM EDT)Anatomical RegionLaterality ModalityBody, AbdomenN/AComputed Radiography Narrative Authorizing ProviderResult TypeResult StatusScanning Provider ExternalIMG DIAGNOSTIC IMAGING ORDERABLESFinal Result * Colonoscopy (10/05/2022 10:43 AM EST)Specimen (Source)Anatomical Location / LateralityCollection Method / VolumeCollection TimeReceived Time10/05/2022 10:43 AM EST Narrative CARDIOVASCULAR - 10/05/2022 11:08 AM EST [facility] Patient Name: Alberto Waller ?? Procedure Date No Time: 10/05/2022 ?? CSN : [id number] Date of : 1955 Admit Type: Outpatient Age: 67 Room: [facility] OR Gender: Male Note Status: Finalized Attending [...] saturations were monitored continuously. The [employer] ? CF-ER638N #[id number] ADULT COLONOSCOPE was introduced ? through the [...] Procedure Code(s): ? --- Professional --- ? 26152, Colonoscopy, flexible; with removal of ? tumor(s), [...] abscess ? without bleeding CPT copyright 2020 [employer]. All rights reserved. The codes documented in this report are preliminary and upon computer language coder review may be revised to meet current compliance requirements. DO Alberto Madrid DO 10/05/2022 11:08:22 AM Number of Addenda: 0 Note Initiated On: 10/05/2022 10:43 AM Procedure Note Alberto Mensah DO - 10/05/2022 [facility] Patient Name: Alberto Wallre Procedure Date No Time: 10/05/2022 CSN : [id number] Date of : 1955 Admit Type: Outpatient Age: 67 Room: [place] [address] Gender: Male Note Status: Finalized Attending MD: Alberto Mensah DO Procedure: Colonoscopy Indications: Rectal bleeding Providers: Alberto Mensah DO Referring MD: Alberto Mensah DO Medicines: Propofol per Anesthesia Complications: No immediate complications. Procedure: After I obtained informed consent, the scope was passed under direct vision. Throughout theprocedure, the patient's blood pressure, pulse, and oxygen saturations were monitored continuously. TheSyntaxinPMaison Academia CF-[id number] #[id number] ADULT COLONOSCOPE was introduced through the anus [...] office PRN. Procedure Code(s): --- Professional --- 77260, Colonoscopy, flexible; with removal of tumor(s), polyp(s), or other lesion(s) by snare technique Diagnosis Code(s): --- Professional --- D12.7, Benign neoplasm of rectosigmoid junction D12.3, Benign neoplasm of transverse colon (hepatic flexure orsplenic flexure) K62.5, Hemorrhage of anus and rectum K57.30, Diverticulosis of large intestine without perforation orabscess without bleeding CPT copyright 2020 [employer]. All rights reserved. The codes documented in this report are preliminary and upon computer language coder reviewmay be revised to meet current compliance requirements. DO Alberto Madrid DO 10/05/2022 11:08:22 AM Number of Addenda: 0 Note Initiated On: 10/05/2022 10:43 AM Authorizing ProviderResult TypeResult StatusMicjohn Mensah DOGI PROCEDURE ORDERABLESFinal ResultPerforming OrganizationAddressCity/State/ZIP CodePhone Number PM CARDIOVASCULAR from Last 3 Months or Most Recently Relevant to Health Maintenance Insurance * Guarantor: Alberto Waller TypeRelation to PatientDate of BirthPhone Billing AddressPersonal/L[address]1955 [facility] [place] [address] * Guarantor: Alberto Waller TypeRelation to PatientDate of BirthPhone Billing AddressPersonal/[address] [facility] [place] [address] Advance Directives * Full Code (Latest Code Status on File) Date ActivatedDate TrlkvpaciipQbqfcwgd93/1/2021 1:12 PM07/08/2021 6:37 PM Care Teams Team MemberRelationshipSpecialtyStart DateEnd Date Abebe Stewart MD [address] [place] [address], [address] [place] [address] PCP - KfclntgTmgskztnfw00/20/17
--- OUTSIDE RECORDS SUMMARY | 2025-07-31 15:42 | XMS_ITS | Clinical Summary ---
Author Organization [facility] Address [address] [place] [address] Care Team Providers Care Real Estate Coordinator Name Role Phone Abebe Stewart MD Primary Care Provider [phone] Abebe Tan MD Unavailable Allergies Active AllergyReactionsCriticalityNoted XewjYjpqhixmPfgvaxuqqbEjjauggz63/22/2021 Leg edema Fish Containing DmmogzfwDcsquzs34/12/2025Shellfish DerivedNausea And Vomiting Eggeyw9207/02/2021 Vomiting Medications MedicationSigDispense QuantityRefillsLast FilledStart DateEnd DateStatus [...] guaiFENesin (Mucinex) 600 mg 12 hr tablet Indications:[id number] 07/13 - 07/23Take 1,200 mg by mouth [...] Discontinued Active Problems ProblemNoted DateDiagnosed DateCOVID-. difficile bnlrybiy98/23/2025 S/P kidney aiiankicix32/12/2025Transplant idvzpwgvk65/28/2025UTI (urinary tract infection)05/24/2025Urinary afftxynbv86/15/2025Gastroesophageal reflux disease without qdonchxzfoe58/15/2025S/P TURP13134Kebsrswhuxlq25/15/2025PH with urinary xzqdosfvqew16/10/2025PH with obstruction/lower urinary tract symptoms 05/08/2025erebrovascular accident (CVA)04/30/2025Suspected stroke patient last known to be well more than 2 hours ago04/28/2025Immunosuppressive management encounter following kidney ctmndibyag92/22/5132Lewthznvspvzlli87/22/2025 Lbptmmyyuakopfuqr79/16/2025enign prostatic hyperplasia with urinary retention 04/17/20251699Ljmqhmceufprcplk11/16/2025ilateral lower extremity edema04/17/2025 Fllodmhnzcae78/16/4932Grsldhycpmaupf46/16/6638Oijhqdny46/16/2025Encounter for aftercare following kidney pezsgdmvqg08/12/4835Otnonkxplnojkn84/10/2025GI bleed 04/05/2025Kidney replaced by dquyebppma81/02/2025H/O ruaksdqgyif01/13/2025 Hypertensive disorder Overview (03/26/2025): Age of onset [...] nodule seen on imaging study Encounters DateTypeDepartmentCare VducTnmzqaqlwpm59/26/2025Telephone [facility] Nephrology [address] [place] [address] Delano Klein MD 07/19/2025Telephone [facility] Cardiovascular Clinic [address] [place] [address] Shivani Boyd MA Appointment (Rescheduled) ; Appointment (Cancellation)07/13/2025 6:05 PM EST - 07/24/2025 4:53 PM ESTHospital Encounter [facility] HVCU [address] [place] [address] Jayjay Robin MD S/P kidney transplant (Primary Dx); Immunosuppressive management encounter following kidney transplant; Encounter for aftercare following kidney transplant; Hypocalcemia; Vitamin D deficiency; Transplant recipient; C. difficile colitis; Decrease in appetite; Immunosuppression; Dehydration Discharge Disposition: Penitentiary Facility (03)07/13/20250022Hemqyt13/12/2025 Community Orders [facility] Transplant [address] [place] [address] Jayjay Robin MD Encounter for aftercare following kidney transplant; Immunosuppressive management encounter following kidney liigmmnmdz19/10/2025Lab [facility] Transplant [address] [place] [address] Trish Alfred MA 07/09/2025Refill [facility] Transplant [address] [place] [phone] Rosa Nix MA Abdominal pain, unspecified abdominal caoelwtk39/07/2025Telephone [facility] Transplant [address] [place] [phone] Radha Bill RN 06/26/2025Refill [facility] Transplant [address] [place] [phone] Wendy Lomeli MD Immunosuppressive management encounter following kidney gusqwnorwe17/21/2025 Refill [facility] Transplant [address] [place] [phone] Trish Alfred MA Immunosuppressive management encounter following kidney zxjbonkcnm54/18/2025 Telephone [facility] Cardiovascular Clinic [address] [place] [phone] Shivani Boyd MA Appointment (Rescheduled)06/07/2025Refill [facility] Transplant [address] [place] [phone] Trish Alfred MA Abdominal pain, unspecified abdominal location (Primary Dx)05/31/2025Travel 05/29/2025 4:04 PM EDT - 06/15/2025 2:51 PM ESTHospital Encounter [facility] [address] [place] [phone] Abebe Tan MD Yadav, Kunal, MD Transplant recipient (Primary Dx); Urinary tract infection without hematuria, site unspecified; Immunosuppression; Acute cystitis without hematuria; Vitamin D deficiency; Folate deficiency Discharge Disposition: Penitentiary Facility (03)05/29/2025 8:30 AM EDTLab [facility] [place] [phone] Encounter for aftercare following kidney transplant; Transplanted kidney; Encounter for long-term (current) use of medications; Immunosuppressive management encounter following kidney transplant; BK viremia; Kidney replaced by transplant; Cytomegalovirus (CMV) viremia ([facility])05/29/2025 8:00 AM EDTFollow-Up [facility] Transplant [address] [place] [phone] Abebe Tan MD Kidney replaced by transplant (Primary Dx)05/29/20253656Rkxvsv41/24/2025ommunity Orders [facility] Transplant [address] [place] [address] Britni Jensen, JUANA Elevated serum yqpndtopch63/24/2025Orders Only [facility] Transplant [address] [place] [address] Britni Jensen, JUANA Elevated serum creatinine (Primary Dx)05/24/2025 1:56 PM EDT - 05/24/2025 11:59 PM EDTHospital Encounter [facility] 2A Infusion [address] [place] [phone] Acute cystitis without hematuria (Primary Dx); Encounter for aftercare following kidney transplant; Transplanted kidney; Encounter for long-term (current) use of medications Discharge Disposition: Home or Self Care ()05/24/2025 1:48 PM EDT - 05/24/2025 1:55 PM EDTHospital Encounter [facility] PICC Team [address] [place] [phone] Discharge Disposition: Home or Self Care ()05/24/2025 1:00 PM EDTConsult [facility] Transplant [address] [place] [address] 05/24/2025Education [facility] PICC Team [address] [place] [phone] Maida Sneed, JUANA 05/24/2025Orders Only [facility] Social Work [address] [place] [phone] Worker, Social, [employer] 05/24/2025Orders Only [facility] Infusion [address] [place] [address] Kevin Anderson, PharmD, BCOP 05/24/2025Orders Only [facility] 2A Infusion [address] [place] [phone] Nancy Champion, commissioning engineer cystitis without hematuria (Primary Dx)05/24/2025Orders Only [facility] 2A Infusion [address] [place] [phone] Bessy German, JUANA 05/23/2025Orders Only [facility] Transplant [address] [place] [phone] Zahra Rhoades RN Urinary tract infection without hematuria, site unspecified (Primary Dx) 05/18/2025Telephone [facility] 5ABCD Surgery Stepdown [address] [place] [phone] Regla Doyle RN 05/16/2025 11:00 AM EDTOffice Visit [facility] Urology [address] [place] [phone] Odette Duarte CNP Urinary retention (Primary Dx); End stage renal disease (CMS/HCC)05/16/2025 8:00 AM EDTFollow-Up [facility] Transplant [address] [place] [phone] Jayjay Robin MD Immunosuppression (Primary Dx); Kidney replaced by transplant; Primary hypertension; Urinary retention; Hypocalcemia; Cerebrovascular accident (CVA), unspecified mechanism (CMS/HCC); Hypomagnesemia; Gastroesophageal reflux disease without esophagitis; Hypophosphatemia; Bilateral lower extremity edema; S/P TURP; Other elevated white blood cell (WBC) count05/16/2025 7:20 AM EDTLab [facility] Kidney Transplant Draw Station [address] [place] [phone] Encounter for aftercare following kidney transplant; Transplanted kidney; Encounter for long-term (current) use of medications; Encounter for screening for diseases of the blood and blood-forming organs and certain disorders involving the immune mechanism; Screening for human immunodeficiency virus05/14/2025 8:30 AM EDTFollow-Up [facility] Urology [address] [place] [phone] Abebe Tan MD S/P TURP (Primary Dx)05/14/2025Refill [facility] Transplant [address] [place] [address] Rosa Nix MA Encounter for aftercare following kidney transplant; Bilateral lower extremity edema05/11/2025 2:30 PM EDT - 05/11/2025 4:00 PM EDT Surgery [facility] Main Operating Room [address] [place] [address] Abebe Tan MD TURP (TRANSURETHRAL RESECTION OF PROSTATE) [[id number] (CPT??)]05/11/2025 2:21 PM EDT Anesthesia Event [facility] Main Operating Room [address] [place] [address] Iam Blair MD Kwak, Carol Butcher MD 05/11/2025 1:00 PM EDT - 05/12/2025 7:11 PM EDTHospital Encounter [facility] 4AB Urology [address] [place] [address] Abebe Tan MD 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); BPH with obstruction/lower urinary tract symptoms Discharge Disposition: Home-Health Care [facility] ()05/11/20251443Okidlz04/09/2025 1:11 PM EDT - 05/10/2025 11:59 PM EDTHospital Encounter [facility] 2A Infusion [address] [place] [address] Kidney transplanted (Primary Dx); Anemia in chronic kidney disease, unspecified CKD stage; Encounter for aftercare following kidney transplant Discharge Disposition: Home or Self Care ()05/08/2025Telephone [facility] Transplant [address] [place] [address] Radha Lind RN 05/08/20258201Fzpnsq70/07/2025Orders Only [facility] Urology [address] [place] [address] Abebe Tan MD BPH with obstruction/lower urinary tract symptoms (Primary Dx)05/07/2025 9:45 AM EDTProcedure Visit [facility] Urology [address] [place] [address] Abebe Tan MD 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)04/28/2025 4:40 PM EDT - 05/02/2025 11:31 AM EDTHospital Encounter [facility] 4AB Urology [address] [place] [address] Jayjay Robin MD Ischemic stroke diagnosed during current admission ([facility]) (Primary Dx); Suspected stroke patient last known to be well more than 2 hours ago; Immunosuppressive management encounter following kidney transplant; Kidney transplanted; Encounter for aftercare following kidney transplant; BPH with obstruction/lower urinary tract symptoms Discharge Disposition: Home-Health Care [facility] (06)from Last 3 Months Immunizations ImmunizationAdministration DatesNext DueInfluenza, High Dose Seasonal, Preservative Free04/06/2024Influenza, High-dose Seasonal, Quadrivalent, Preservative Free07/15/2023Influenza, injectable, quadrivalent, preservative free07/01/2018Pneumococcal Conjugate PCV 13008/27/2015Pneumococcal Conjugate PCV 3Pneumococcal Polysaccharide YKW0638/18/2010RSV, Adult, Bivalent 09/24/2023Tdap12/15/2024Zoster, Jmwkgwmdyif39/23/2024,07/15/2023 Family History Medical HistoryRelationNameCommentsHeart diseaseFatherHad pacemakerRelationName StatusCommentsFatherSisterRobinAlive Social History Tobacco UseTypesPacks/DayYears UsedDateSmoking Tobacco: YboixiFglnaalbkx3053 - 1974Passive Smoke Exposure: PastSmokeless Tobacco: Never [...] week04/05/2025How often do you attend evangelical or judaism services?Never04/05/2025Do you belong to any clubs or organizations such as evangelical groups, unions, fraternal or athletic groups, or school groups?No04/05/2025How often do you attend meetings of the clubs or organizations you belong to?Never04/05/2025re you , , , , never , or living with a partner?Ymvpeqxyt59/04/2025UDIT-C AnswerDate RecordedQ1: How often do you have a drink containing alcohol?Never 04/05/2025Q2: How many drinks containing alcohol do you have on a typical day when you are drinking?Patient does not drink04/05/2025Q3: How often do you have six or more drinks on one occasion?Never04/05/2025PHQ-2AnswerDate Recorded Patient Health Questionnaire-2 Pfael211[facility] [place] [facility] - Occupational Stress QuestionnaireAnswerDate RecordedDo you feel stress - tense, restless, nervous, or anxious, or unable to sleep at night because your mind is troubled all the time - these days?Only a gztxaq6404/05/2025Humiliation, Afraid, Rape, and Kick questionnaireAnswerDate RecordedWithin the [...] were you homeless or living in a long term (including now)?No07/13/2025 Hunger Vital SignAnswerDate RecordedWithin the past 12 months, you worried that your food would run out before you got the money to buymore.Never true07/13/2025 Within the past 12 months, the food you bought just didn't last and you didn't have money to get more.Never true07/13/2025Sex and Gender InformationValueDate RecordedSex Assigned at YwpoxGhed93/20/2025 6:43 AM ESTLegal SczEhya0601/29/2022 12:45 AM EDTGender MgoslmxeGeut10/20/2025 7:43 AM ESTSexual Orientation Heterosexual or Blmiwdjw97/20/2025 7:43 AM EST Last Filed Vital Signs Vital SignReadingTime TakenCommentsBlood Urpreerf266/8507/24/2025 9:11 AM EST Hyits017107/24/2025 9:11 AM VAYUmvxzbsdtsm35.9 ??C (98.4 ??F)07/24/2025 9:11 AM ESTRespiratory Tmal459109/24/2024 9:11 AM ESTOxygen Ycfynvqtdd91%07/24/2025 9:11 AM ESTInhaled Oxygen Concentration--Ibwiut90.5 kg (188 lb 7.9 oz)07/24/2025 4:21 AM FBKAqzuew419.4 cm (6' 0.99 )07/13/2025 8:36 PM ESTBody Mass Index24.87 07/13/2025 8:36 PM EST Plan of Treatment DateTypeDepartmentCare Team (Latest Contact Info)Tqzjyzwtnik77/05/2026 8:00 AM ESTFollow-Up [facility] Transplant [address] [place] [phone] Health MaintenanceDue DateLast DoneCommentsMedicare Annual Wellness (AWV) 1954HIB Vaccines (1 of 1 - Risk 1-dose series)10/29/1955Meningococcal Vaccine (1 - Risk 2-dose series)1956Meningococcal B Vaccine (1 of 4 - Increased Risk)1964COVID-19 Vaccine (3 - Moderna risk series)11/04/2024 10/07/2024, 04/06/2024, 07/15/2023, Additional history existsInfluenza Vaccine (#1)509/12/2023, 07/15/2023, 07/01/2018Depression Ltxusyolh51/15/2026 05/16/2025Fall Risk Usetgdriy54/23/23944609/24/2024dult Kbidpzm5112/15/2034 12/15/20243194WovrbzsfsnoYfaxpthxmeqh37/06/2023neumococcal Vaccine: 50+ Years Cmabdimqc00/14/2023, 08/27/2015, 09/19/2010Zoster KgidkdlrTwjvmkyvm10/23/2024, 3Colorectal Cancer UfjbkrhndOvpzpcqefjywKMQIAouwdgtapuvx62/04/2025CT ColonographyDiscontinuedFIT-DNADiscontinuedFITDiscontinuedHPV VaccinesAged OutNo longer eligible based on patient's age to complete this topicIPV VaccinesAged OutNo longer eligible based on patient's age to complete this topicRotavirus VaccinesAged OutNo longer eligible based on patient's age to complete this topic SigmoidoscopyDiscontinued Goals GoalPatient Goal TypeAssociated ProblemsRecent ProgressPatient-Stated?Author Blood Pressure < 140/90 Blood Czyjoipt080/85(07/24/2025 9:11 AM EST)Crista March RN Medical Devices ExplantedTypeAreaManufacturerDevice IdentifierShelf Expiration DateModel / Serial / LotStent,Ureteral,Pigtail,[id number] - [id number] Implanted:Qty: 1 on 03/31/2025 by Jayjay Robin MD at [facility] Explanted:05/01/2025 (Quantity not on file)StentLeft: [employer] [id number] / / [id number]:TRANSPLANT URETER Procedures Procedure NamePriorityDate/TimeAssociated DiagnosisCommentsURINE CULTUREPending Pqpeotxye98/23/2025 11:56 AM EST PHOSPHORUSPending Lytrezpzw41/23/2025 5:02 AM EST MAGNESIUMPending Htdszqzxd75/23/2025 5:02 AM EST COMPREHENSIVE METABOLIC PANELPending Narhofcge35/23/2025 5:02 AM EST TACROLIMUS LEVELPending Pbgyyqvvw15/23/2025 5:01 AM EST CBCPending Hcqukxyli82/23/2025 5:01 AM EST TACROLIMUS LEVELPending Bultpgyun86/22/2025 6:50 AM EST PHOSPHORUSPending Gbuhqilva49/22/2025 6:50 AM EST MAGNESIUMPending Ddkzvvygu47/22/2025 6:50 AM EST COMPREHENSIVE METABOLIC PANELPending Invdydsvp87/22/2025 6:50 AM EST CBCPending Qdltxwzwb31/22/2025 6:[address] ABDOMEN PELVIS WO IV GHOYXSKDTNWC59/21/2025 12:22 PM EST TACROLIMUS LEVELPending Wbddgpmmv12/21/2025 4:01 AM EST PHOSPHORUSPending Atovhwpzf95/21/2025 4:01 AM EST MAGNESIUMPending Vpkhujybw50/21/2025 4:01 AM EST COMPREHENSIVE METABOLIC PANELPending Bgfulftak58/21/2025 4:01 AM EST CBCPending Xsekoytfx67/21/2025 4:01 AM EST TACROLIMUS LEVELPending Ljwjecbnv89/20/2025 3:40 AM EST PHOSPHORUSPending Hxtwurdqi96/20/2025 3:40 AM EST MAGNESIUMPending Mjtwfyrnm69/20/2025 3:40 AM EST COMPREHENSIVE METABOLIC PANELPending Quzzpbqfw94/20/2025 3:40 AM EST CBCPending Ldnafsmeh63/20/2025 3:40 AM EST URINALYSIS MICROSCOPIC WITH REFLEX CULTUREPending Deoqgtndk13/19/2025 2:37 PM EST URINALYSIS WITH REFLEX CULTUREPending Ssrsloxjk38/19/2025 2:37 PM EST URINE XGVLZLWPxdztco05/19/2025 2:37 PM EST XR CHEST 1 VVSPMnauzcr69/19/2025 12:20 PM EST RAPID INFLUENZA A/B PCRPending Wxelqgscx39/19/2025 11:21 AM EST BLOOD CULTUREPending Uovkntadc58/19/2025 10:55 AM EST BLOOD CULTUREPending Osvvialbq95/19/2025 10:55 AM EST CKAdd-On07/20/2025 5:15 AM EST TACROLIMUS LEVELPending Jsirncpvh74/19/2025 5:15 AM EST PHOSPHORUSPending Qdacwwmkw71/19/2025 5:15 AM EST MAGNESIUMPending Nbafrevts94/19/2025 5:15 AM EST COMPREHENSIVE METABOLIC PANELPending Kcktkgzit13/19/2025 5:15 AM EST CBCPending Usaxfliev98/19/2025 5:15 AM EST POCT GLUCOSE METER UNSOLICITED UVEINTEYabbiex30/18/2025 7:19 AM EST TACROLIMUS LEVELPending Zsazjcrxa45/18/2025 5:18 AM EST PHOSPHORUSPending Mvgaxjnkz13/18/2025 5:18 AM EST MAGNESIUMPending Uejhxtaak01/18/2025 5:18 AM EST COMPREHENSIVE METABOLIC PANELPending Hcspvlyzx20/18/2025 5:18 AM EST CBCPending Bfoccvnix51/18/2025 5:18 AM EST VITAMIN D 25 HYDROXYAdd-On07/18/2025 5:32 AM EST PTH, INTACTAdd-On07/18/2025 5:32 AM EST TACROLIMUS LEVELPending Gxioupzms35/17/2025 5:32 AM EST PHOSPHORUSPending Teinrmpwk43/17/2025 5:32 AM EST MAGNESIUMPending Cldjphsil20/17/2025 5:32 AM EST COMPREHENSIVE METABOLIC PANELPending Qdfzvrnpe31/17/2025 5:32 AM EST CBCPending Hdzpglhwv13/17/2025 5:32 AM EST SINGLE ANTIGEN CLASS IIPending Rclgmeiql02/16/2025 12:17 PM EST SINGLE ANTIGEN CLASS IPending Puphdjsgn52/16/2025 12:17 PM EST BK VIRUS, PLASMA, QUANTITATIVEPending Trepaarhr93/16/2025 12:17 PM EST CMV DNA, QUANTITATIVE, NAAT, PLASMAPending Ujbverjpv98/16/2025 12:17 PM EST DONOR SPECIFIC VDUWUFZFIdafoxi90/16/2025 12:17 PM EST URINALYSIS MICROSCOPICPending Mrmhxuvwd20/16/2025 12:12 PM EST CREATININE, URINE, RANDOMPending Obsgawebl61/16/2025 12:12 PM EST PROTEIN, URINE, RANDOMPending Zybwmswen36/16/2025 12:12 PM EST URINALYSISPending Wjdqzsjwr83/16/2025 12:12 PM EST URINE CULTUREAdd-On07/17/2025 12:12 PM EST TACROLIMUS LEVELPending Kifunahfz07/16/2025 5:01 AM EST PHOSPHORUSPending Alyafxtgt78/16/2025 5:01 AM EST MAGNESIUMPending Ypifnvvlz85/16/2025 5:01 AM EST COMPREHENSIVE METABOLIC PANELPending Frfkzfvvf49/16/2025 5:01 AM EST CBCPending Dmvdqrzjz55/16/2025 5:01 AM EST RESPIRATORY ASSESS AND TREAT EVGDCNZUCjrlyyf24/15/2025 8:00 AM ESTTACROLIMUS LEVELPending Fdfkwmzsp70/15/2025 5:08 AM EST PHOSPHORUSPending Wjotrstum12/15/2025 5:08 AM EST MAGNESIUMPending Phcfoekue55/15/2025 5:08 AM EST COMPREHENSIVE METABOLIC PANELPending Jmumhgwbr03/15/2025 5:08 AM EST CBCPending Xyiwxurhi47/15/2025 5:08 AM EST RESPIRATORY ASSESS AND TREAT YBDMEYSNMvxmirv05/ 2:24 PM ESTRESPIRATORY ASSESS AND TREAT PEAAJJAKByzswnd29/14/2025 2:24 PM ESTXR CHEST 1 VIEWSTAT 07/15/2025 1:41 PM EST CBC WITH AUTO LTIKPUNTUCNTRgquisp96/14/2025 11:27 AM EST CBC AND WFAEFIOAQAICPqfvyuy32/14/2025 11:27 AM EST FERRITINAdd-On07/15/2025 3:27 AM EST IRON AND TIBCAdd-On07/15/2025 3:27 AM EST TACROLIMUS XVYYMCjvjnom39/14/2025 3:27 AM EST AUIRSMCDRGUxrnebw27/14/2025 3:27 AM EST MEWHLNYYOYzaklce04/14/2025 3:27 AM EST COMPREHENSIVE METABOLIC PYSMOGaznqvc84/14/2025 3:27 AM EST PFZTyaqoah79/14/2025 3:27 AM EST SARS-COV-2 BRDXexorkf73/13/2025 6:13 PM EST TACROLIMUS GMWWTBvknpau72/13/2025 3:37 AM EST ABGAIQDBHICgboufl22/13/2025 3:37 AM EST HAGMUXYOXNmmzqza45/13/2025 3:37 AM EST COMPREHENSIVE METABOLIC WIJYJUxmwmgq92/13/2025 3:37 AM EST PFBVhelkxe99/13/2025 3:37 AM EST TACROLIMUS EFFNXFonpkjy38/12/2025 8:48 PM EST OTNRPQCKLFXswjzne73/12/2025 8:48 PM EST OISYMZDTWEirtedn75/12/2025 8:48 PM EST COMPREHENSIVE METABOLIC LMIOIGanuwlt94/12/2025 8:48 PM EST FSGDhdxctk58/12/2025 8:48 PM EST EXT COMPREHENSIVE METABOLIC VWCQBMkthgit64/01/2025 TACROLIMUS LEVELPending Usfwebxwk86/14/2025 5:51 AM EST TACROLIMUS LEVELPending Htnozcplp72/13/2025 6:11 AM EST CBCPending Wygpmrtto05/13/2025 6:11 AM EST BASIC METABOLIC PANELPending Naznxjoeq99/13/2025 6:11 AM EST TACROLIMUS LEVELPending Dlnsktwmt41/12/2025 6:03 AM EST CBCPending Ojcwsogec17/12/2025 6:03 AM EST BASIC METABOLIC PANELPending Ekaducqmu63/12/2025 6:03 AM EST ELECTROLYTE PANELPending Qqahitgtb86/11/2025 10:17 PM EST URINALYSIS MICROSCOPICPending Ljsmuomao14/11/2025 9:37 AM EST URINALYSISPending Xxjbsuono76/11/2025 9:37 AM EST URINE CULTUREPending Jhwiphncy62/11/2025 9:37 AM EST TACROLIMUS LEVELPending Olksxknrw20/11/2025 5:23 AM EST CBCPending Csgvbevfn84/11/2025 5:23 AM EST BASIC METABOLIC PANELPending Ronpfzlfb73/11/2025 5:23 AM EST TACROLIMUS LEVELPending Teukusezw98/10/2025 5:52 AM EST CBCPending Hhispgfrp89/10/2025 5:52 AM EST BASIC METABOLIC PANELPending Cfuexubpq85/10/2025 5:52 AM EST FOLATEPending Wwhjjhmlb80/09/2025 5:54 AM EST VITAMIN V56Lclumfh Bifeddkfo84/09/2025 5:54 AM EST TACROLIMUS LEVELPending Eoioghjoq19/09/2025 5:54 AM EST CBCPending Pejerqnov25/09/2025 5:54 AM EST BASIC METABOLIC PANELPending Cldjiorvt49/09/2025 5:54 AM EST TACROLIMUS LEVELPending Mavzhrwfu89/08/2025 5:47 AM EST CBCPending Bpwispkxl74/08/2025 5:47 AM EST BASIC METABOLIC PANELPending Zkbejqqel38/08/2025 5:47 AM EST BASIC METABOLIC PANELPending Ctwntpmje63/07/2025 4:24 AM EST TACROLIMUS LEVELAdd-On06/08/2025 4:23 AM EST CBCPending Vicwjtvbn23/07/2025 4:23 AM EST CBCPending Aqrtasabm05/06/2025 3:49 AM EST BASIC METABOLIC PANELPending Lhjjbqiyq20/06/2025 3:49 AM EST CBCPending Jabxauwuv74/05/2025 4:44 AM EST BASIC METABOLIC PANELPending Mzlkvovpk01/05/2025 4:44 AM EST TACROLIMUS LEVELPending Ycrcdzfvd16/05/2025 4:44 AM EST CBCPending Saayqtoog59/04/2025 5:13 AM EST BASIC METABOLIC PANELPending Wjcsolqxo74/04/2025 5:13 AM EST TACROLIMUS LEVELPending Qunbnuuix91/04/2025 5:13 AM EST CBCPending Vbbyqykti99/03/2025 4:52 AM EST BASIC METABOLIC PANELPending Ltvojupxs70/03/2025 4:52 AM EST TACROLIMUS LEVELPending Fxvbqiedt17/03/2025 4:52 AM EST BLOOD CULTUREPending Voahvorqi00/02/2025 12:59 PM EST BLOOD CULTUREPending Tfmisklan01/02/2025 12:59 PM EST CBCPending Dqvckqkmj66/02/2025 3:49 AM EST BASIC METABOLIC PANELPending Mauhohthi68/02/2025 3:49 AM EST TACROLIMUS LEVELPending Jzzdpvtvz73/02/2025 3:49 AM EST LEELA ERFCNFETQfkqwti38/01/2025 8:57 PM EDT Elevated serum creatinine URINE CULTUREPending Pksgjvlwi49/01/2025 10:19 AM EDT CBCPending Wdzoqdqrs31/01/2025 3:59 AM EDT BASIC METABOLIC PANELPending Scmmsesae27/01/2025 3:59 AM EDT TACROLIMUS LEVELPending Krettbnuh27/01/2025 3:59 AM EDT CBCPending Eglxbjvlk62/31/2025 5:00 AM EDT BASIC METABOLIC PANELPending Dyifkqcke11/31/2025 5:00 AM EDT TACROLIMUS LEVELPending Hyotbvron96/31/2025 5:[address] GUIDED ABSCESS FLUID COLLECTION ODSEYMLPTbglmzh68/30/2025 4:28 PM EDT CREATININE, BODY LSCCLBndtxqa18/30/2025 3:10 PM EDT Transplant recipient BODY FLUID DJKPQWYOnzswdv40/30/2025 3:10 PM EDT Transplant recipient JVHDPmkidjm91/30/2025 4:24 AM EDT PROTIME-QXXJrpqouu50/30/2025 4:24 AM EDT ZMPKhjjyxz42/30/2025 4:24 AM EDT BASIC METABOLIC JGCWCJlhsikl54/30/2025 4:24 AM EDT TACROLIMUS CSAGDIdxnpta61/30/2025 4:24 AM EDT BLOOD FLJSRFAUdeckig91/29/2025 1:04 PM EDT BLOOD EKSYXAEPfsxirn44/29/2025 1:04 PM EDT US KIDNEY TRANSPLANT W KLQKECBRnpjwct05/29/2025 7:56 AM EDT TACROLIMUS LEVELAdd-On05/30/2025 5:00 AM EDT RWFUjvjeet49/29/2025 5:00 AM EDT BASIC METABOLIC UYNBKTugiede34/29/2025 5:00 AM EDT URINALYSIS MICROSCOPIC WITH REFLEX VDGVOEBGnckhdh75/ 1:38 PM EDT Kidney replaced by transplant URINALYSIS WITH REFLEX CQSXORWPywtamq66/28/2025 1:38 PM EDT Kidney replaced by transplant CREATININE, URINE, BHOSHHMaqsrpd99/28/2025 1:38 PM EDT Kidney replaced by transplant PROTEIN, URINE, DDOSCDLjzrvnu47/28/2025 1:38 PM EDT Kidney replaced by transplant URINE MRQAHYQJpbjeaw71/28/2025 1:38 PM EDT Kidney replaced by transplant BILIRUBIN, CEQESMRaqrhaz79/28/2025 8:34 AM EDT Encounter for aftercare following kidney transplant Transplanted kidney Encounter for long-term (current) use of medications SINGLE ANTIGEN CLASS UYIljgyuw24/28/2025 8:34 AM EDT Kidney replaced by transplant SINGLE ANTIGEN CLASS NFlpapsn27/28/2025 8:34 AM EDT Kidney replaced by transplant CBC WITH AUTO ZTJYPGILMQLFEuklsme66/28/2025 8:34 AM EDT Encounter for aftercare following kidney transplant Transplanted kidney Encounter for long-term (current) use of medications CMV DNA, QUANTITATIVE, NAAT, ZSHBBRCvbqhnj59/28/2025 8:34 AM EDT Cytomegalovirus (CMV) viremia (CMS/HCC) DONOR SPECIFIC CNVUNLYVPzqhile53/28/2025 8:34 AM EDT Kidney replaced by transplant BK VIRUS, PLASMA, RVCYZTEXJIIXEwsxccz15/28/2025 8:34 AM EDT BK viremia LEELA CDYLCPCXNiafrwa04/28/2025 8:34 AM EDT Encounter for aftercare following kidney transplant Immunosuppressive management encounter following kidney transplant TACROLIMUS KXEDJPfrqedv44/28/2025 8:34 AM EDT Encounter for aftercare following kidney transplant Transplanted kidney Encounter for long-term (current) use of medications URIC AULXScfisxm87/28/2025 8:34 AM EDT Encounter for aftercare following kidney transplant Transplanted kidney Encounter for long-term (current) use of medications IUMPUYZLJDVoeymqm10/28/2025 8:34 AM EDT Encounter for aftercare following kidney transplant Transplanted kidney Encounter for long-term (current) use of medications YJPBMVSYMLbigyul81/28/2025 8:34 AM EDT Encounter for aftercare following kidney transplant Transplanted kidney Encounter for long-term (current) use of medications COMPREHENSIVE METABOLIC ZHOSRNhxfyho70/28/2025 8:34 AM EDT Encounter for aftercare following kidney transplant Transplanted kidney Encounter for long-term (current) use of medications CBC AND ODLSMXRNBBSZZsvcptf72/28/2025 8:34 AM EDT Encounter for aftercare following kidney transplant Transplanted kidney Encounter for long-term (current) use of medications CBC WITH AUTO EAEMQSVZNOPHUwyfwbn45/23/2025 3:41 PM EDT Encounter for aftercare following kidney transplant Transplanted kidney Encounter for long-term (current) use of medications COMPREHENSIVE METABOLIC BIXYTBbegpfd67/23/2025 3:41 PM EDT Encounter for aftercare following kidney transplant Transplanted kidney Encounter for long-term (current) use of medications CBC AND EBAWTXVPZZBIRynloec80/23/2025 3:41 PM EDT Encounter for aftercare following kidney transplant Transplanted kidney Encounter for long-term (current) use of medications URINALYSIS MICROSCOPIC WITH REFLEX KJEATQCEkpvhqo47/15/2025 10:39 AM EDT Kidney replaced by transplant URINALYSIS WITH REFLEX LDHAUTXItkgcyh06/15/2025 10:39 AM EDT Kidney replaced by transplant CREATININE, URINE, URZHQOHuhmwbf02/15/2025 10:39 AM EDT Kidney replaced by transplant PROTEIN, URINE, UOIKVALfmtrye41/15/2025 10:39 AM EDT Kidney replaced by transplant URINE OZAQUAAUuzbrzj76/15/2025 10:39 AM EDT Kidney replaced by transplant MANUAL ZKRKMSNVHVGPNerpnbd51/15/2025 7:24 AM EDT Encounter for aftercare following kidney transplant Transplanted kidney Encounter for long-term (current) use of medications BILIRUBIN, CWGOYVFxqywne06/15/2025 7:24 AM EDT Encounter for aftercare following kidney transplant Transplanted kidney Encounter for long-term (current) use of medications SINGLE ANTIGEN CLASS NTJxstbka23/15/2025 7:24 AM EDT Encounter for aftercare following kidney transplant Transplanted kidney Encounter for long-term (current) use of medications SINGLE ANTIGEN CLASS JWkuxndc42/15/2025 7:24 AM EDT Encounter for aftercare following kidney transplant Transplanted kidney Encounter for long-term (current) use of medications CBC WITH AUTO BASBWMNBXDMFQpossxm58/15/2025 7:24 AM EDT Encounter for aftercare following kidney transplant Transplanted kidney Encounter for long-term (current) use of medications HIV RNA, QUANTITATIVE, ZFSWvvocfc39/15/2025 7:24 AM EDT Encounter for aftercare following kidney transplant Transplanted kidney Encounter for long-term (current) use of medications Screening for human immunodeficiency virus Encounter for screening for diseases of the blood and blood-forming organs and certain disorders involving the immune mechanism HCV QUANTITATIVE EMCEnrjujt68/15/2025 7:24 AM EDT Encounter for aftercare following kidney transplant Transplanted kidney Encounter for long-term (current) use of medications Encounter for screening for diseases of the blood and blood-forming organs and certain disorders involving the immune mechanism HBV QUANT TOGIcqkeqg72/15/2025 7:24 AM EDT Encounter for aftercare following kidney transplant Transplanted kidney Encounter for long-term (current) use of medications Encounter for screening for diseases of the blood and blood-forming organs and certain disorders involving the immune mechanism TACROLIMUS JGYPDCbcdrga73/15/2025 7:24 AM EDT Encounter for aftercare following kidney transplant Transplanted kidney Encounter for long-term (current) use of medications URIC CDMMObgpdjb35/15/2025 7:24 AM EDT Encounter for aftercare following kidney transplant Transplanted kidney Encounter for long-term (current) use of medications ONPDNTJJTGQesyvoe60/15/2025 7:24 AM EDT Encounter for aftercare following kidney transplant Transplanted kidney Encounter for long-term (current) use of medications ZZNQQCJRQPkzjidd67/15/2025 7:24 AM EDT Encounter for aftercare following kidney transplant Transplanted kidney Encounter for long-term (current) use of medications DONOR SPECIFIC ZDUBDMIKOrsslhp25/15/2025 7:24 AM EDT Encounter for aftercare following kidney transplant Transplanted kidney Encounter for long-term (current) use of medications COMPREHENSIVE METABOLIC GIMCCHweqfyr94/15/2025 7:24 AM EDT Encounter for aftercare following kidney transplant Transplanted kidney Encounter for long-term (current) use of medications CBC AND HIPQRSBILRHNXywofkv18/15/2025 7:24 AM EDT Encounter for aftercare following kidney transplant Transplanted kidney Encounter for long-term (current) use of medications POCT GLUCOSE METER UNSOLICITED VWUSCTSNvjtjzo80/11/2025 4:30 PM EDT TACROLIMUS RJXNCWswgeaw77/11/2025 4:05 AM EDT KPRFJCUQGFHfnxmgg29/11/2025 4:05 AM EDT ETGPELOAANkinukr99/11/2025 4:05 AM EDT LRRMmfvpgl74/11/2025 4:05 AM EDT BASIC METABOLIC CVHKDYnrdpyn23/11/2025 4:05 AM EDT TIAUUKA3105/11/2025 4:07 PM EDT HISTOLOGY - TISSUE YQBNJlyadwp48/10/2025 3:30 PM EDT BPH with obstruction/lower urinary tract symptoms NM AN ELECTIVE ENDOTRACHEAL IJLYDWFachmdw36/10/2025 2:30 PM EDT NM TRURL ELECTROSURG RESCJ PROSTATE BLEED URDIQPNE66/10/2025 2:23 PM EDT BPH with obstruction/lower urinary tract symptoms POCT GLUCOSE METER UNSOLICITED HELBETDZroenyg14/10/2025 1:42 PM EDT CARDIAC EVENT TRLNGPWSirxlqt84/01/2025 10:49 AM EDT Ischemic stroke diagnosed during current admission ([facility]) POCT GLUCOSE METER UNSOLICITED JYAHQQTJcdrufz41/01/2025 7:43 AM EDT GOLD TDVWkwybkn73/01/2025 3:40 AM EDT EXTRA VSMCJWcbqeyb13/01/2025 3:40 AM EDT HBV QUANT TMAPending Pbhcipxnc57/01/2025 3:40 AM EDT HIV RNA, QUANTITATIVE, TMAPending Xtwhpupzi26/01/2025 3:40 AM EDT HCV QUANTITATIVE TMAPending Gjuqpdmxn95/01/2025 3:40 AM EDT TACROLIMUS LEVELPending Tzqgecbqy49/01/2025 3:40 AM EDT BASIC METABOLIC PANELPending Tmdajdyhm09/01/2025 3:40 AM EDT CBCPending Rqpbuxqfl19/01/2025 3:40 AM EDT POCT GLUCOSE METER UNSOLICITED XAUCTQVIocnsjn56/30/2025 8:49 PM EDT IJMJCOAXDSKqonrkk16/30/2025 4:49 PM EDT Kidney transplanted Encounter for aftercare following kidney transplant POCT GLUCOSE METER UNSOLICITED NWVQRCDDksfmgm80/30/2025 4:22 PM EDT DEVICE IQRTTSLXelxgsz49/30/2025 3:45 PM EDT AEROBIC ORGANISM VOFDVBXDCNWKZXQedphow15/30/2025 12:00 PM EDT BPH with obstruction/lower urinary tract symptoms NONFERMENTER SUSCEPTIBILITYPending Hoyvdiooj47/30/2025 12:00 PM EDT BPH with obstruction/lower urinary tract symptoms POCT GLUCOSE METER UNSOLICITED ULLUGIDCmrercp83/30/2025 11:20 AM EDT POCT GLUCOSE METER UNSOLICITED AUPHYONOrrjtsu98/30/2025 7:12 AM EDT TACROLIMUS LEVELPending Jirvpxnjn91/30/2025 4:16 AM EDT BASIC METABOLIC PANELPending Zccjdblhw53/30/2025 4:16 AM EDT CBCPending Mkptijuil60/30/2025 4:16 AM EDT POCT OCCULT BLOOD IKCJZMIAU19/04/2025 5:12 PM EDT from Last 3 Months or Most Recently Relevant to Health Maintenance Results * Urine culture, routine (07/24/2025 11:56 AM EST) Only the most recent of7 resultswithin the time period is included. ComponentValueRef RangeTest MethodAnalysis TimePerformed AtPathologist Signature Urine CultureNo growth at 48 hours JES 07/26/2025 7:15 AM [facility])Specimen (Source)Anatomical Location / LateralityCollection Method / VolumeCollection TimeReceived TimeUrine Urine specimen obtained by clean catch procedure / UnknownNon-blood Collection / Drrlutd5307/24/2025 11:56 AM EST07/24/2025 12:04 PM EST Narrative Authorizing ProviderResult TypeResult StatusGrazyna Briseno [facility] MICROBIOLOGY - GENERAL ORDERABLESFinal ResultPerforming OrganizationAddress City/State/ZIP CodePhone Number [facility]) [address] [place] [address] * (ABNORMAL) Phosphorus (07/24/2025 5:02 AM EST) Only the most recent of15 resultswithin the time period is included. ComponentValueRef RangeTest MethodAnalysis TimePerformed AtPathologist Signature Phosphorus1.9(L)2.5 - 5.0 mg/dL07/24/2025 6:05 AM [facility]) Specimen (Source)Anatomical Location / LateralityCollection Method / Volume Collection TimeReceived TimeBloodVenous blood specimen / UnknownVenipuncture / Lemtpbf1607/24/2025 5:02 AM EST07/24/2025 5:39 AM EST Narrative Authorizing ProviderResult TypeResult StatusKnicole Robin [facility] BLOOD ORDERABLES Final ResultPerforming OrganizationAddressCity/State/ZIP CodePhone Number [facility]) [address] [place] [address] * Magnesium (07/24/2025 5:02 AM EST) Only the most recent of15 resultswithin the time period is included. ComponentValueRef RangeTest MethodAnalysis TimePerformed AtPathologist Signature Magnesium2.21.9 - 2.7 mg/dL07/24/2025 6:05 AM [facility]) Specimen (Source)Anatomical Location / LateralityCollection Method / Volume Collection TimeReceived TimeBloodVenous blood specimen / UnknownVenipuncture / Shjqfzc4407/24/2025 5:02 AM EST07/24/2025 5:39 AM EST Narrative Authorizing ProviderResult TypeResult StatusKunal Lobito [facility] BLOOD ORDERABLES Final ResultPerforming OrganizationAddressCity/State/ZIP CodePhone Number [facility] ([facility]) [address] [place] [address] * (ABNORMAL) Comprehensive metabolic panel (07/24/2025 5:02 AM EST) Only the most recent of15 resultswithin the time period is included. ComponentValueRef RangeTest MethodAnalysis TimePerformed AtPathologist Signature Mnyukd388452 - 145 mmol/L109/24/2024 6:[address] [facility] ([facility]) Potassium4.03.5 - 5.1 mmol/L109/24/2024 6:[address] [facility] ([facility]) Vlmvjthq652(H)98 - 107 mmol/L109/24/2024 6:[address] [facility] ([facility])CO2 2221 - 31 mmol/L109/24/2024 6:[address] [facility] ([facility])Anion Sds245 - 20 mmol/L109/24/2024 6:[address] [facility] ([facility])BUN35(H)7 - 25 mg/dL 07/24/2025 6:[address] [facility] ([facility])Creatinine1.290.70 - 1.30 mg/dL 07/24/2025 6:[address] [facility] ([facility])BUN/Creatinine Ratio27.1 07/24/2025 6:[address] [facility] ([facility])Nxdfjsw599(H)70 - 100 mg/dL 07/24/2025 6:[address] [facility] ([facility])Calcium7.6(L)8.6 - 10.3 mg/dL 07/24/2025 6:[address] [facility] ([facility])TIV8861 - 39 U/L109/24/2024 6:[address] [facility] ([facility])ALT (SGPT)137 - 52 U/L109/24/2024 6:[address] [facility] ([facility])Alkaline Wbwtbtuvumc0810 - 104 U/L109/24/2024 6:17 AM EST [facility] ([facility])Total Protein4.4(L)6.0 - 8.3 g/dL12/ 6:[address] [facility] ([facility])Albumin2.9(L)3.5 - 5.7 g/dL07/24/2025 6:17 AM EST [facility] ([facility])Total Bilirubin0.30.3 - 1.0 mg/dL07/24/2025 6:[address] [facility] ([facility])eGFR59.6(L)>60.0 mL/min/1.73m* 6:[address] [facility] ([facility])Comment:[facility]???s estimated glomerular filtration rate (eGFR) will [...] BLOOD ORDERABLES Final ResultPerforming OrganizationAddressCity/State/ZIP CodePhone Number [facility] ([facility]) [address] [place] [address] * Tacrolimus level (07/24/2025 5:01 AM EST) Only the most recent of33 resultswithin the time period is included. ComponentValueRef RangeTest MethodAnalysis TimePerformed AtPathologist Signature Tacrolimus Lvl6.65.0 - 20.0 ng/mL07/24/2025 11:[address] [facility] ([facility])Comment:The [employer] Tacrolimus assay is a delayed one-step immunoassay [...] BLOOD ORDERABLES Final ResultPerforming OrganizationAddressCity/State/ZIP CodePhone Number [facility] ([facility]) [address] [place] [address] * (ABNORMAL) CBC (07/24/2025 5:01 AM EST) Only the most recent of32 resultswithin the time period is included. ComponentValueRef RangeTest MethodAnalysis TimePerformed AtPathologist Signature Auto WBC10.66(H)4.00 - 10.60 10*3/uL07/24/2025 5:[address] [facility] ([facility])RBC2.37(L)4.20 - 5.70 10*6/uL07/24/2025 5:[address] [facility] ([facility])Hemoglobin7.9(L)13.0 - 17.0 g/dL07/24/2025 5:[address] [facility] ([facility])Qimwxdfabu00.0(L)39.0 - 50.0 %07/24/2025 5:[address] [facility] ([facility])MNY774.3(H)82.0 - 98.0 fL07/24/2025 5:[address] [facility] ([facility])MCH33.3(H)27.0 - 33.0 pg07/24/2025 5:[address] [facility] ([facility]) MCHC32.932.0 - 35.0 g/dL07/24/2025 5:[address] [facility] ([facility])RDW18.3 (H)11.5 - 15.0 %07/24/2025 5:[address] [facility] ([facility])Kbykkokbh303947 - 400 10*3/uL07/24/2025 5:[address] [facility] ([facility])Specimen (Source) Anatomical Location / LateralityCollection Method / VolumeCollection Time Received TimeBloodVenous blood specimen / UnknownVenipuncture / Unknown 07/24/2025 5:01 AM EST07/24/2025 5:39 AM EST Narrative Authorizing ProviderResult TypeResult StatusKunal Lobito FAJARDO BLOOD ORDERABLES Final ResultPerforming OrganizationAddressCity/State/ZIP CodePhone Number [facility] ([facility]) [address] [place] [address] * CT abdomen pelvis wo IV contrast [...] the left upper abdomen. * Atrophic both chitina kidneys with the left renal cyst. * [...] No biliary ductal dilatation is identified. Both chitina kidneys are small and atrophic. There is no evidence of hydronephrosis in the chitina kidneys. There is a stable left renal [...] No biliary ductal dilatation is identified. Both chitina kidneys are small and atrophic. There is no evidence of hydronephrosis in the chitina kidneys. There is a stable left renal [...] in the left upper abdomen. *Atrophic both chitina kidneys with the left renal cyst. *Bilateral small pleural effusions and bibasilar atelectasis. *Pericardial effusion. Electronically signed: Rosalino Rueda. Authorizing ProviderResult TypeResult StatusKunal Lobito MDG CT PROCEDURESFinal Result * (ABNORMAL) Urinalysis microscopic with reflex culture (07/20/2025 2:37 PM EST) Only the most recent of3 resultswithin the time period is included. ComponentValueRef RangeTest MethodAnalysis TimePerformed AtPathologist Signature RBC, UrineNone SeenNone Seen, 0-2 /HPF07/20/2025 3:[address] [facility] ([facility])WBC, Urine>50(A)None Seen, 0-2 /HPF07/20/2025 3:[address] [facility] ([facility])Squamous Epithelial, UrineNone SeenNone Seen, Occasional, Few /LPF 07/20/2025 3:[address] [facility] ([facility])Mucus, UrineOccasionalNone Seen, Occasional, Few /LPF109/20/2024 3:[address] [facility] ([facility])WBC Clumps, UrinePresent(A)None Seen /HPF07/20/2025 3:[address] [facility] ([facility]) Specimen (Source)Anatomical Location / LateralityCollection Method / Volume Collection TimeReceived TimeUrineUrine specimen obtained by clean catch procedure / UnknownNon-blood Collection / Npgzqgd5507/20/2025 2:37 PM EST 07/20/2025 2:43 PM EST Narrative Authorizing ProviderResult TypeResult StatusNicole [facility] URINE ORDERABLESFinal ResultPerforming OrganizationAddressCity/State/ZIP CodePhone Number [facility] ([facility]) [address] [place] [address] * (ABNORMAL) Urinalysis with reflex culture (07/20/2025 2:37 PM EST) Only the most recent of3 resultswithin the time period is included. ComponentValueRef RangeTest MethodAnalysis TimePerformed AtPathologist Signature Color, UrineYellowYellow, Light Yellow, Ihmrdexdr31/19/2025 3:[address] [facility] ([facility])Clarity, UrineCloudy(A)Clear07/20/2025 3:[address] [facility] ([facility])pH, Urine6.05.0 - 8.0 pH07/20/2025 3:[address] [facility] ([facility])Leukocytes, UrineLarge(A)Pbglpgsk54/19/2025 3:[address] [facility] ([facility])Nitrite, KkpdyFeaukfhiNftuzvfv26/19/2025 3:[address] [facility] ([facility])Protein, UrineNegativeNegative mg/dL07/20/2025 3:[address] [facility] ([facility])Glucose, UrineNormalNormal mg/dL07/20/2025 3:[address] [facility] ([facility])Bilirubin, JascrLgnzgfmtCtibrowo24/19/2025 3:[address] [facility] ([facility])Specific Clyman, Urine<1.005(L)1.010 - 1.7080207/20/2025 3:[address] [facility] ([facility])Ketones, UrineNegativeNegative mg/dL 07/20/2025 3:[address] [facility] ([facility])Blood, UrineNegativeNegative 07/20/2025 3:[address] [facility] ([facility])Urobilinogen, UrineNormalNormal mg/dL07/20/2025 3:[address] [facility] ([facility])Specimen (Source)Anatomical Location / LateralityCollection Method / VolumeCollection TimeReceived TimeUrine Urine specimen obtained by clean catch procedure / UnknownNon-blood Collection / Eibheep2807/20/2025 2:37 PM EST07/20/2025 2:43 PM EST Narrative Authorizing ProviderResult TypeResult StatusNicole Caren [facility] URINE ORDERABLESFinal ResultPerforming OrganizationAddressCity/State/ZIP CodePhone Number [facility] ([facility]) [address] [place] [address] * XR chest 1 view (07/20/2025 12:20 [...] Michel Valentine MD. Authorizing ProviderResult TypeResult StatusNicole Caren [facility]ED[facility] Final Result * Rapid influenza A/B PCR (07/20/2025 11:21 AM EST)ComponentValueRef RangeTest MethodAnalysis TimePerformed AtPathologist SignatureRapid Influenza A PCR ZjnusleyTojxtrnv00/19/2025 12:[address] [facility] ([facility])Rapid Influenza B YNVFyqfgfnrNmicbsyo74/19/2025 12:[address] [facility] ([facility])Specimen (Source)Anatomical Location / LateralityCollection Method / VolumeCollection TimeReceived TimeSwabNasal structure / UnknownNon-blood Collection / Kvtffox2207/20/2025 11:21 AM EST07/20/2025 11:38 AM EST Narrative [facility] ([facility]) - 07/20/2025 12:11 PM EST Testing methodology utilizes isothermal nucleic acid amplification technology for the differential and qualitative detection of Influenza A and Influenza B viral nucleic acids. Authorizing ProviderResult TypeResult StatusNicole Caren [facility] MICROBIOLOGY - GENERAL ORDERABLESFinal ResultPerforming OrganizationAddressCity/State/ZIP Code Phone Number [facility] ([facility]) [address] [place] [address] * Blood culture, peripheral #2 (07/20/2025 10:55 AM EST) Only the most recent of6 resultswithin the time period is included. ComponentValueRef RangeTest MethodAnalysis TimePerformed AtPathologist Signature Blood CultureNo growth at 5 days JES 07/25/2025 12:[address] [facility] ([facility])Specimen (Source)Anatomical Location / LateralityCollection Method / VolumeCollection TimeReceived TimeBlood Venous blood specimen / UnknownVenipuncture / Ecrqtha1507/20/2025 10:55 AM EST 07/20/2025 11:04 AM EST Narrative Authorizing ProviderResult TypeResult StatusGrazyna Briseno [facility] MICROBIOLOGY - GENERAL ORDERABLESFinal ResultPerforming OrganizationAddress City/State/ZIP CodePhone Number [facility]) [address] [place] [address] * (ABNORMAL) CK (07/20/2025 5:15 AM EST)ComponentValueRef RangeTest Method Analysis TimePerformed AtPathologist SignatureTotal CK<10.0(L)30.0 - 223.0 U/L 07/20/2025 5:46 PM [facility] ([facility])Specimen (Source)Anatomical Location / LateralityCollection Method / VolumeCollection TimeReceived Time BloodVenous blood specimen / UnknownVenipuncture / Kqxlmzs7107/20/2025 5:15 AM EST07/20/2025 5:52 AM EST Narrative Authorizing ProviderResult TypeResult StatusPhilip Jones [facility] BLOOD ORDERABLESFinal ResultPerforming OrganizationAddressCity/State/ZIP CodePhone Number [facility]) [address] [place] [address] * (ABNORMAL) POCT glucose meter (07/19/2025 7:19 AM EST) Only the most recent of8 resultswithin the time period is included. ComponentValueRef RangeTest MethodAnalysis TimePerformed AtPathologist Signature Glucose QTV455(H)70 - 105 mg/dL07/19/2025 7:29 AM [facility]) Comment:jraiSpecimen (Source)Anatomical Location / LateralityCollection Method / VolumeCollection TimeReceived TimeBloodCapillary blood specimen / Unknown 07/19/2025 7:19 AM EST07/19/2025 7:29 AM EST Narrative [facility]) - 07/19/2025 7:29 AM EST Waived Testing in the ED is performed under the ED CLIA certificate #[id number]. Authorizing ProviderResult TypeResult StatusJayjay FAJARDO BLOOD ORDERABLES Final ResultPerforming OrganizationAddressCity/State/ZIP CodePhone Number [facility]) [address] [place] [address] * (ABNORMAL) Vitamin D 25 hydroxy (07/18/2025 5:32 AM EST)ComponentValueRef RangeTest MethodAnalysis TimePerformed AtPathologist SignatureVit D, 25-Fxtduij06.0(L)30.0 - 80.0 ng/mL07/18/2025 1:13 PM ESTV[facility] HOS[facility])Comment:>80.0 Toxicity possibleSpecimen (Source)Anatomical Location / LateralityCollection Method / VolumeCollection TimeReceived TimeBloodVenous blood specimen / UnknownVenipuncture / Cisxhlg5007/18/2025 5:32 AM EST07/18/2025 5:57 AM EST Narrative Authorizing ProviderResult TypeResult StatusWendy FAJARDO BLOOD ORDERABLES Final ResultPerforming OrganizationAddressCity/State/ZIP CodePhone Number [facility]) [address] [place] [address] * PTH, intact (07/18/2025 5:32 AM EST)ComponentValueRef RangeTest MethodAnalysis TimePerformed AtPathologist WeljkfedpBZM8204 - 88 pg/mL07/18/2025 11:43 AM EST [facility])Specimen (Source)Anatomical Location / Laterality Collection Method / VolumeCollection TimeReceived TimeBloodVenous blood specimen / UnknownVenipuncture / Tctegel5807/18/2025 5:32 AM EST07/18/2025 5:57 AM EST Narrative Authorizing ProviderResult TypeResult StatusWendy FAJARDO BLOOD ORDERABLES Final ResultPerforming OrganizationAddressCity/State/ZIP CodePhone Number [facility]) [address] [place] [address] * Single antigen class II (07/17/2025 12:17 PM EST) Only the most recent of3 resultswithin the time period is included. ComponentValueRef RangeTest MethodAnalysis TimePerformed AtPathologist Signature Tested Lgcg8574794811633950/22/2025 2:42 PM ESTUT TISSUE TYPING ([facility]OTRAC) CommentsNo Class II donor specific antibody /22/2025 2:42 PM ESTUTMC T[facility]UE [facility]YP[facility] ([facility])Test MethodClass II Single Kiqtaav7207/23/2025 2:42 PM ESTUTMC TISSUE TYPING ([facility])Comment:Class II Antigen MicrobeadsSigned By Signed by Abebe Stovall CHT([facility]) ALYSSA([facility]), [place] [employer] [facility] 07/23/2025 2:42 PM ESTUT TISSUE TYPING ([facility]OT[facility]AC)Specimen (Source)Anatomical Location / LateralityCollection Method / VolumeCollection TimeReceived TimeBlood Venous blood specimen / UnknownVenipuncture / Touszlc4107/17/2025 12:17 PM EST 07/17/2025 12:22 PM EST Narrative Authorizing ProviderResult TypeResult StatusJojazmin Briseno [facility] BLOOD ORDERABLESFinal ResultPerforming OrganizationAddressCity/State/ZIP CodePhone Number [facility] TISSUE TYPING ([facility]) [address] [place] [address], * Single antigen class I (07/17/2025 12:17 PM EST) Only the most recent of3 resultswithin the time period is included. ComponentValueRef RangeTest MethodAnalysis TimePerformed AtPathologist Signature Tested [id number]/22/2025 2:42 PM ESTUT TISSUE TYPING ([facility]ISTOTRAC) Test MethodClass I Single Hivxaej7507/23/2025 2:42 PM ESTUT TISSUE TYPING (HISTOTRAC)Signed BySigned by Abebe Stovall CHT([facility]) ALYSSA([facility]), [place] [employer] Lmqcqlvhky37/22/2025 2:42 PM ESTUTMC TISSUE TYPING ([facility]OT[facility]AC) Comment:Class I Antigen MicrobeadsCommentsNo Class I donor specific antibody ygelbhthek78/22/2025 2:42 PM [facility] TISSUE TYPING ([facility]ISTOTRAC)Specimen (Source) Anatomical Location / LateralityCollection Method / VolumeCollection Time Received TimeBloodVenous blood specimen / UnknownVenipuncture / Unknown 07/17/2025 12:17 PM EST07/17/2025 12:22 PM EST Narrative Authorizing ProviderResult TypeResult StatusJojazmin Briseno [facility] BLOOD ORDERABLESFinal ResultPerforming OrganizationAddressCity/State/ZIP CodePhone Number [facility] TISSUE TYPING ([facility]OTRAC) [address] [place] [address], * BK virus, plasma, quantitative (07/17/2025 12:17 PM EST) Only the most recent of2 resultswithin the time period is included. ComponentValueRef RangeTest MethodAnalysis TimePerformed AtPathologist Signature BK Virus Plasma InterpretationNot DetectedNot Puzxxdgr64/22/2025 2:[address] [facility] ([place])BK Virus QuantitationNot DetectedNot Detected copies/mL 07/23/2025 2:[address] [facility] ([facility])Comment: Method: BK virus was measured by quantitative polymerase chain reaction using a fluorescent hydrolysis probe targeting the polyomavirus BK ETIOLOGY TEACHER-1 gene. The lower limit of quantitation of the assay is 500 copies of BK genome per milliliter of plasma orurine, and any detectable BK DNA below that level is reported as: Detected, <500 copies/ml. Serial BK virus measurement can be used to monitor disease activity. (Reference: Crystal healyl. J CLIN MICRO 2004; 42:0648-9340). This test was developed and its performance [...] Quant LogNot DetectedNot Detected copies/mL07/23/2025 2:[address] [facility] ([place])Specimen (Source)Anatomical Location / LateralityCollection Method / VolumeCollection TimeReceived TimeBloodVenous blood specimen / Unknown Venipuncture / Qjafcvf9807/17/2025 12:17 PM EST07/17/2025 12:25 PM EST Narrative Authorizing ProviderResult TypeResult StatusJochaparro [facility] BLOOD ORDERABLESFinal ResultPerforming OrganizationAddressCity/State/ZIP CodePhone Number [facility] ([place]) [address] [place] [address] * CMV DNA, quantitative, NAAT, plasma (07/17/2025 12:17 PM EST) Only the most recent of2 resultswithin the time period is included. ComponentValueRef RangeTest MethodAnalysis TimePerformed AtPathologist Signature CMV Qnt by NAAT, Plasma IU/mLNot DetectedIU/mL07/19/2025 5:12 PM [facility] ([facility])CMV Qnt by NAAT, Plasma log IU/mLNot Detectedlog IU/mL 07/19/2025 5:12 PM [facility] ([facility])CMV Qnt by NAAT, Plasma InterpNot DetectedNot Zeitgsow18/18/2025 5:12 PM [facility] ([facility])Comment: INTERPRETIVE INFORMATION: CMV by Quantitative NAAT, Plasma [...] commutability issues with the standard. Performed By: [employer] [address] [place] [address] Viscosity Tester: Julián Wooten MD, PhD CLIA Number: [id number] Specimen (Source)Anatomical Location / LateralityCollection Method / Volume Collection TimeReceived TimeBloodVenous blood specimen / UnknownVenipuncture / Kxdgzhl5607/17/2025 12:17 PM EST07/17/2025 12:25 PM EST Narrative Authorizing ProviderResult TypeResult StatusSalt Lake Behavioral Health Hospitalchaparro [facility] BLOOD ORDERABLESFinal ResultPerforming OrganizationAddressCity/State/ZIP CodePhone Number [facility] ([facility]) [address] [place] [address] * Protein, urine, random (07/17/2025 12:12 PM EST) Only the most recent of3 resultswithin the time period is included. ComponentValueRef RangeTest MethodAnalysis TimePerformed AtPathologist Signature Protein, Ur25.6mg/dL07/17/2025 1:[address] [facility] ([facility])Comment: There are no established reference values for random urine specimens.Specimen (Source)Anatomical Location / LateralityCollection Method / VolumeCollection TimeReceived TimeUrineUrine specimen obtained by clean catch procedure / Unknown Non-blood Collection / Viwhlpd6707/17/2025 12:12 PM EST07/17/2025 1:12 PM EST Narrative Authorizing ProviderResult TypeResult Status[facility] URINE ORDERABLESFinal ResultPerforming OrganizationAddressCity/State/ZIP CodePhone Number [facility]) [address] [place] [address] * Creatinine, urine, random (07/17/2025 12:12 PM EST) Only the most recent of3 resultswithin the time period is included. ComponentValueRef RangeTest MethodAnalysis TimePerformed AtPathologist Signature Creatinine, Ur53.026 - 299 mg/dL07/17/2025 1:[address] [facility] ([facility]) Specimen (Source)Anatomical Location / LateralityCollection Method / Volume Collection TimeReceived TimeUrineUrine specimen obtained by clean catch procedure / UnknownNon-blood Collection / Kiombsg3507/17/2025 12:12 PM EST 07/17/2025 1:12 PM EST Narrative Authorizing ProviderResult TypeResult StatusSaint [facility] URINE ORDERABLESFinal ResultPerforming OrganizationAddressty/State/ZIP CodePhone Number [facility]) [address] [place] [address] * (ABNORMAL) Urinalysis microscopic (07/17/2025 12:12 PM EST) Only the most recent of2 resultswithin the time period is included. ComponentValueRef RangeTest MethodAnalysis TimePerformed AtPathologist Signature RBC, Urine0-2None Seen, 0-2 /HPF07/17/2025 1:[address] [facility]) WBC, Urine6-10(A)None Seen, 0-2 /HPF07/17/2025 1:[address] [facility] ([facility])Squamous Epithelial, UrineNone SeenNone Seen, Occasional, Few /LPF 07/17/2025 1:[address] [facility] ([facility])Mucus, UrineOccasionalNone Seen, Occasional, Few /LPF109/17/2024 1:[address] [facility] ([facility])Specimen (Source)Anatomical Location / LateralityCollection Method / VolumeCollection TimeReceived TimeUrineUrine specimen obtained by clean catch procedure / Unknown Non-blood Collection / Vsllucd6807/17/2025 12:12 PM EST07/17/2025 1:12 PM EST Narrative Authorizing ProviderResult TypeResult StatusJojazmin Briseno [facility] URINE ORDERABLESFinal ResultPerforming OrganizationAddressCity/State/ZIP CodePhone Number [facility] ([facility]) [address] [place] [address] * (ABNORMAL) Urinalysis (07/17/2025 12:12 PM EST) Only the most recent of2 resultswithin the time period is included. ComponentValueRef RangeTest MethodAnalysis TimePerformed AtPathologist Signature Color, UrineLight-YellowColorless, Yellow, Light-Gdzped7907/17/2025 1:42 PM EST [facility] ([facility])Clarity, HporqIwxetTvale80/16/2025 1:[address] [facility] ([facility])pH, Urine7.05.0 - 8.0 pH07/17/2025 1:[address] [facility] ([facility])Leukocytes, UrineModerate(A)Ibpvqbke82/16/2025 1:[address] [facility] ([facility])Nitrite, UrinePositive(A)Yxoiyulu91/16/2025 1:[address] [facility] ([facility])Protein, UrineNegativeNegative mg/dL07/17/2025 1:42 PM [facility] ([facility])Glucose, UrineNormalNormal mg/dL07/17/2025 1:42 PM EST [facility] ([facility])Bilirubin, UpfjeZnhdkxacItzvhskn70/16/2025 1:42 PM EST [facility] ([facility])Specific [place]man, Urine1.0131.010 - 1.9281107/17/2025 1:[address] [facility] ([facility])Ketones, UrineNegativeNegative mg/dL 07/17/2025 1:[address] [facility] ([facility])Blood, UrineNegativeNegative 07/17/2025 1:[address] [facility] ([facility])Urobilinogen, UrineNormalNormal mg/dL07/17/2025 1:[address] [facility] ([facility])Specimen (Source)Anatomical Location / LateralityCollection Method / VolumeCollection TimeReceived TimeUrine Urine specimen obtained by clean catch procedure / UnknownNon-blood Collection / Rwdmxum9407/17/2025 12:12 PM EST07/17/2025 1:12 PM EST Narrative Authorizing ProviderResult TypeResult StatusJordAultman Hospital URINE ORDERABLESFinal ResultPerforming OrganizationAddressCity/State/ZIP CodePhone Number [facility] ([facility]) [address] [place] [address] * (ABNORMAL) CBC auto differential (07/15/2025 11:27 AM EST) Only the most recent of4 resultswithin the time period is included. ComponentValueRef RangeTest MethodAnalysis TimePerformed AtPathologist Signature Auto WBC11.67(H)4.00 - 10.60 10*3/uL07/15/2025 11:[address] [facility] ([facility])RBC2.37(L)4.20 - 5.70 10*6/uL07/15/2025 11:[address] [facility] ([facility])Hemoglobin8.0(L)13.0 - 17.0 g/dL07/15/2025 11:42 AM [facility] ([facility])Bxmhiqwfao04.9(L)39.0 - 50.0 %07/15/2025 11:42 AM [facility] ([facility])GUA847.8(H)82.0 - 98.0 fL07/15/2025 11:[address] [facility] ([facility])MCH33.8(H)27.0 - 33.0 pg07/15/2025 11:[address] [facility] ([facility])MCHC33.532.0 - 35.0 g/dL07/15/2025 11:[address] [facility] ([facility])RDW16.8(H)11.5 - 15.0 %07/15/2025 11:[address] [facility] ([facility]) Neutrophils %75.3(H)40.0 - 72.0 %07/15/2025 11:[address] [facility] ([facility])Lymphocytes %14.3(L)20.0 - 45.0 %07/15/2025 11:[address] [facility] ([facility])Monocytes %8.15.0 - 12.0 %07/15/2025 11:[address] [facility] ([facility])Eosinophils %0.40.0 - 6.0 %07/15/2025 11:[address] [facility] ([facility])Basophils %0.20.0 - 1.0 %07/15/2025 11:[address] [facility] ([facility])Neutrophils Absolute8.78(H)1.60 - 7.60 10*3/uL07/15/2025 11:42 AM [facility] ([facility])Lymphocytes Absolute1.671.20 - 4.00 10*3/uL07/15/2025 11:[address] [facility] ([facility])Monocytes Absolute0.950.10 - 1.00 10*3/uL 07/15/2025 11:[address] [facility] ([facility])Eosinophils Absolute0.050.00 - 0.50 10*3/uL07/15/2025 11:[address] [facility] ([facility])Basophils Absolute 0.020.00 - 0.20 10*3/uL07/15/2025 11:[address] [facility] ([facility]) Lcdcnvvlw906328 - 400 10*3/uL07/15/2025 11:[address] [facility] ([facility]) nRBC %0.00 %07/15/2025 11:[address] [facility] ([facility])Immature Granulocytes %1.7(H)0.0 - 1.0 %07/15/2025 11:[address] [facility] ([facility]) Immature Granulocytes Absolute0.200.00 - 0.20 10*3/uL07/15/2025 11:[address] [facility] ([facility])Specimen (Source)Anatomical Location / LateralityCollection Method / VolumeCollection TimeReceived TimeBloodVenous blood specimen / Unknown Venipuncture / Lhtxibk1207/15/2025 11:27 AM EST07/15/2025 11:32 AM EST Narrative Authorizing ProviderResult TypeResult StatusJayjay FAJARDO BLOOD ORDERABLES Final ResultPerforming OrganizationAddressCity/State/ZIP CodePhone Number [facility]) [address] [place] [address] * (ABNORMAL) Iron and TIBC (07/15/2025 3:27 AM EST)ComponentValueRef RangeTest MethodAnalysis TimePerformed AtPathologist NvywcpmiuTtxp84(L)50 - 212 ug/dL 07/15/2025 11:[address] [facility] ([facility])TIBC<91(L)250 - 450 ug/dL 07/15/2025 11:07 AM [facility])Iron Kjdsfqtxbf41/14/2025 11:07 AM [facility])Comment:Unable to CalculateUIBC<55.0(L) 155.0 - 355.0 ug/dL07/15/2025 11:07 AM [facility])Specimen (Source)Anatomical Location / LateralityCollection Method / VolumeCollection TimeReceived TimeBloodVenous blood specimen / UnknownVenipuncture / Unknown 07/15/2025 3:27 AM EST07/15/2025 4:36 AM EST Narrative Authorizing ProviderResult TypeResult StatusJayjay FAJARDO BLOOD ORDERABLES Final ResultPerforming OrganizationAddressCity/State/ZIP CodePhone Number [facility]) [address] [place] [address] * (ABNORMAL) Ferritin (07/15/2025 3:27 AM EST)ComponentValueRef RangeTest Method Analysis TimePerformed AtPathologist LyvjqjvjiCjawvolu283.0(H)24.0 - 336.0 ng/mL07/15/2025 8:[address] [facility] ([facility])Specimen (Source) Anatomical Location / LateralityCollection Method / VolumeCollection Time Received TimeBloodVenous blood specimen / UnknownVenipuncture / Unknown 07/15/2025 3:27 AM EST07/15/2025 4:36 AM EST Narrative Authorizing ProviderResult TypeResult StatusJayjay FAJARDO BLOOD ORDERABLES Final ResultPerforming OrganizationAddressCity/State/ZIP CodePhone Number [facility] ([facility]) [address] [place] [address] * (ABNORMAL) SARS-CoV-2 PCR (07/14/2025 6:13 PM EST)ComponentValueRef RangeTest MethodAnalysis TimePerformed AtPathologist EwntzqjueMWTK-RuL-5 PCRPositive(AA) Tudwzwhk47/13/2025 6:40 PM [facility])Specimen (Source) Anatomical Location / LateralityCollection Method / VolumeCollection Time Received TimeSwabNasal structure / UnknownNon-blood Collection / Unknown 07/14/2025 6:13 PM EST07/14/2025 6:17 PM EST Narrative [facility]) - 07/14/2025 6:40 PM EST Testing methodology utilizes isothermal nucleic acid amplification technology for the differential and qualitative detection of SARS-CoV-2 viral nucleic acids. Authorizing ProviderResult TypeResult StatusBrinda FAJARDO MICROBIOLOGY - GENERAL ORDERABLESFinal ResultPerforming OrganizationAddressCity/State/ZIP Code Phone Number [facility]) [address] [place], [place] [id number] * External Comprehensive metabolic panel (07/02/2025)ComponentValueRef RangeTest MethodAnalysis TimePerformed AtPathologist SignatureExternal Fasting Glucose 118mg/LExternal Creatinine, Serum2.1mg/mLExternal NGD07sv/dLExternal Potassium 4.8mmol/LExternal Sodium, tedug201ocvb/LExternal CO2, fkjvp40dEc/LExternal Cbnppizf769sjgf/LExternal Calcium6.9mg/dLComment:corrected calcium 8.34 External Albumin2.2External Protein, total3.9g/dLExternal Alkaline Phosphatase 72U/LExternal ALT27U/LExternal AST13U/LExternal Bilirubin,total0.3mg/dL Specimen (Source)Anatomical Location / LateralityCollection Method / Volume Collection TimeReceived TimeBloodVenous blood specimen / Dkwxrrf1507/02/2025 Narrative Authorizing ProviderResult TypeResult StatusHistorical Provider [facility] EXTERNAL ORDERSFinal Result * (ABNORMAL) Basic metabolic panel (06/14/2025 6:11 AM EST) Only the most recent of19 resultswithin the time period is included. ComponentValueRef RangeTest MethodAnalysis TimePerformed AtPathologist Signature Obocsn924036 - 145 mmol/L108/14/2024 7:[address] [facility] ([facility]) Potassium4.23.5 - 5.1 mmol/L108/14/2024 7:[address] [facility] ([facility]) Wsnlpvev546(H)98 - 107 mmol/L108/14/2024 7:[address] [facility] ([facility])CO2 2321 - 31 mmol/L108/14/2024 7:[address] [facility] ([facility])BUN26(H)7 - 25 mg/dL06/14/2025 7:[address] [facility] ([facility])Creatinine1.280.70 - 1.30 mg/dL06/14/2025 7:[address] [facility] ([facility])Okrvamx948(H)70 - 100 mg/dL 06/14/2025 7:[address] [facility] ([facility])Calcium7.5(L)8.6 - 10.3 mg/dL 06/14/2025 7:[address] [facility] ([facility])Anion Gap87 - 20 mmol/L 06/14/2025 7:[address] [facility] ([facility])eGFR60.2>60.0 mL/min/1.73m*2 06/14/2025 7:[address] [facility] ([facility])Comment:[facility]???s estimated glomerular filtration rate (eGFR) will [...] group of individuals. BUN/Creatinine Ratio20. 7:[address] [facility] ([facility])Specimen (Source)Anatomical Location / LateralityCollection Method / VolumeCollection TimeReceived TimeBloodVenous blood specimen / UnknownArterial Line / Unknown 06/14/2025 6:11 AM EST06/14/2025 6:38 AM EST Narrative Authorizing ProviderResult TypeResult StatusGrazyna Briseno [facility] BLOOD ORDERABLESFinal ResultPerforming OrganizationAddressCity/State/ZIP CodePhone Number [facility] ([facility]) [address] [place] [address] * (ABNORMAL) Electrolyte panel (06/12/2025 10:17 PM EST)ComponentValueRef Range Test MethodAnalysis TimePerformed AtPathologist HepliyyomBqdplj303168 - 145 mmol/L108/12/2024 10:[address] [facility] ([facility])Potassium4.13.5 - 5.1 mmol/L108/12/2024 10:[address] [facility] ([facility])Ltewdbxy345(H)98 - 107 mmol/L108/12/2024 10:[address] [facility] ([facility])LW46144 - 31 mmol/L 06/12/2025 10:[address] [facility] ([facility])Anion Gap87 - 20 mmol/L 06/12/2025 10:[address] [facility] ([facility])Specimen (Source)Anatomical Location / LateralityCollection Method / VolumeCollection TimeReceived Time BloodVenous blood specimen / UnknownArterial Line / Jrrdgan8106/12/2025 10:17 PM EST06/12/2025 10:25 PM EST Narrative Authorizing ProviderResult TypeResult StatusJayjay Robin [facility] BLOOD ORDERABLES Final ResultPerforming OrganizationAddressCity/State/ZIP CodePhone Number [facility] ([facility]) [address] [place] [address] * (ABNORMAL) Folate (06/10/2025 5:54 AM EST)ComponentValueRef RangeTest Method Analysis TimePerformed AtPathologist SignatureFolate5.17(L)6.6 - 1,000 ng/mL 06/10/2025 7:[address] [facility] ([facility])Specimen (Source)Anatomical Location / LateralityCollection Method / VolumeCollection TimeReceived Time BloodBlood sample taken from central line / UnknownArterial Line / Unknown 06/10/2025 5:54 AM EST06/10/2025 6:19 AM EST Narrative Authorizing ProviderResult TypeResult StatusMauro FAJARDO BLOOD ORDERABLESFinal ResultPerforming OrganizationAddressCity/State/ZIP CodePhone Number [facility] [address] [place] [address] * Vitamin B12 (06/10/2025 5:54 AM EST)ComponentValueRef RangeTest MethodAnalysis TimePerformed AtPathologist SignatureVitamin [id number] - 914 pg/mL06/10/2025 7:[address] [facility] ([facility])Comment: REFERENCE RANGES: 180-914 pg/mL ??Normal 145-179 pg/mL ??Indeterminate <145 pg/mL Deficient Specimen (Source)Anatomical Location / LateralityCollection Method / Volume Collection TimeReceived TimeBloodBlood sample taken from central line / Unknown Arterial Line / Bzzcask9206/10/2025 5:54 AM EST06/10/2025 6:19 AM EST Narrative Authorizing ProviderResult TypeResult StatusMauro FAJARDO BLOOD ORDERABLESFinal ResultPerforming OrganizationAddressCity/State/ZIP CodePhone Number [facility]) [address] [place] [address] * Leela Prospera (Single) (06/02/2025 8:57 PM [...] please refer to the complete report viathe [facility] Provider Portal or contact your Relive Nurse Coordinator at [phone] PATIENT TEST HISTORYSee Notes06/02/2025 8:57 PM EDTNATERA LABORATORYComment: Date: 05-29-2025, Value: dd-cfDNA% 0.12%, dd-cfDNA Quantity: 13 cp/ml, Total cfDNA: - Date: 05-29-2025, Value: dd-cfDNA% 0.12%, dd-cfDNA Quantity: 13 cp/ml, Total cfDNA: - Date: 04-26-2025, Value: dd-cfDNA% 0.59%, dd-cfDNA Quantity: 31 cp/ml, Total cfDNA: - Date: 04-23-2025, Value: dd-cfDNA% 1.19%, dd-cfDNA Quantity: 53 cp/ml, Total cfDNA: - Decreased risk for rejection Test performed by [employer]. : [address] [place] [address]. CLIA ID #[id number]: CLIA Veneer Stock Grader: Imtiaz Wade, Ph.D., [facility] Specimen (Source)Anatomical Location / LateralityCollection Method / Volume Collection TimeReceived TimeBlood specimen (specimen)Venous blood specimen / Wngqzwd6605/30/2025 3:00 AM EDT Narrative Authorizing ProviderResult TypeResult StatusKunal Lobito FAJARDO MOLECULAR DIAGNOSTICS ORDERABLESFinal ResultPerforming OrganizationAddressCity/State/ZIP CodePhone Number [facility] [address] [place] [address], * IR CT guided abscess fluid collection [...] tract was then dilated to accommodate a 8.5-Surinamese pigtail drainage catheter. 50 mL of clear [...] The tract was thendilated to accommodate a 8.5-Surinamese pigtail drainage catheter. 50 mL of clear [...] Electronically signed: Beth Rios. Authorizing ProviderResult TypeResult StatusJojazmin Briseno [facility] CT PROCEDURESFinal Result * Body fluid culture (05/31/2025 3:10 PM EDT)ComponentValueRef RangeTest Method Analysis TimePerformed AtPathologist SignatureCultureNo growth at 5 days JES 06/05/2025 7:[address] [facility] (BELoopMe)Gram Stain Result Polymorphonuclear kpwlquypcn51/04/2025 7:[address] [facility] (B[place]oopMe)Gram Stain ResultNo organisms seen06/05/2025 7:[address] [facility] (BEAKER) Gram Stain ResultCytocentrifuge cmsrwg7406/05/2025 7:[address] [facility] (BEAKER)Specimen (Source)Anatomical Location / LateralityCollection Method / VolumeCollection TimeReceived TimeFluid (Peritoneal fluid)05/31/2025 3:10 PM EDT 05/31/2025 4:25 PM EDT Narrative Authorizing ProviderResult TypeResult StatusGrazyna HowardRehabilitation Hospital of Fort WayneLAB MICROBIOLOGY - GENERAL ORDERABLESFinal ResultPerforming OrganizationAddress City/State/ZIP CodePhone Number [facility] ([facility]) [address] [place] [address] * Creatinine, body fluid (05/31/2025 3:10 PM EDT)ComponentValueRef RangeTest MethodAnalysis TimePerformed AtPathologist SignatureCreat, Fluid1.8mg/dL 05/31/2025 4:52 PM [facility] ([facility])Comment:The reference range for this testing has not been established.Specimen (Source)Anatomical Location / LateralityCollection Method / VolumeCollection TimeReceived TimeFluid (Peritoneal fluid)05/31/2025 3:10 PM EDT1 4:25 PM EDT Narrative Authorizing ProviderResult TypeResult Statusjazmin [facility] BODY FLUIDS AND STOOLS ORDERABLESFinal ResultPerforming OrganizationAddressCity/State/ZIP CodePhone Number [facility] ([facility]) [address] [place] [address] * APTT (05/31/2025 4:24 AM EDT)ComponentValueRef RangeTest MethodAnalysis Time Performed AtPathologist ZadpyigcvdZLB99.125.0 - 35.0 Hiilfis1905/31/2025 5:49 AM [facility] ([facility])Comment:Clinical significance of the APTT is questionable in the presence of heparin.Specimen (Source)Anatomical Location / LateralityCollection Method / VolumeCollection TimeReceived TimeBloodVenous blood specimen / UnknownVenipuncture / Wwvtlyw6305/31/2025 4:24 AM EDT1 4:59 AM EDT Narrative Authorizing ProviderResult TypeResult StatusGrazyna GarciaOcean Springs Hospital BLOOD ORDERABLESFinal ResultPerforming OrganizationAddressty/State/ZIP CodePhone Number [facility] ([facility]) [address] [place] [address] * (ABNORMAL) Protime-INR (05/31/2025 4:24 AM EDT)ComponentValueRef RangeTest MethodAnalysis TimePerformed AtPathologist WfnmchobpSuobmvn91.3(H)12.3 - 14.8 Bykybtu8905/31/2025 5:49 AM [facility] ([place])INR1.21(H)0.90 - 1.10 05/31/2025 5:49 AM [facility] ([place])Comment: [facility] RECOMMENDED INR FOR WARFARIN THERAPY CONDITION ?INR [...] TimeReceived TimeBloodVenous blood specimen / UnknownVenipuncture / Qtkaujq9705/31/2025 4:24 AM EDT1 4:59 AM EDT Narrative Authorizing ProviderResult TypeResult StatusJordyn Hermon CNPLAB BLOOD ORDERABLESFinal ResultPerforming OrganizationAddressCity/State/ZIP CodePhone Number [facility] ([place]) [address] [place] [address] * US KIDNEY TRANSPLANT W DOPPLER (05/30/2025 [...] Shekhar Samuels MD. Authorizing ProviderResult TypeResult StatusKnicole BURROWS US PROCEDURESFinal Result * Uric acid (05/29/2025 8:34 AM EDT) Only the most recent of2 resultswithin the time period is included. ComponentValueRef RangeTest MethodAnalysis TimePerformed AtPathologist Signature Uric Acid7.04.4 - 7.6 mg/dL05/29/2025 9:27 AM [facility] ([facility]) Specimen (Source)Anatomical Location / LateralityCollection Method / Volume Collection TimeReceived TimeBloodVenous blood specimen / UnknownArterial Line / Bxladkl9405/29/2025 8:34 AM EDT1 8:59 AM EDT Narrative Authorizing ProviderResult TypeResult StatusSaint [facility] BLOOD ORDERABLESFinal ResultPerforming OrganizationAddressCity/State/ZIP CodePhone Number [facility] ([facility]) [address] [place] [phone] * Bilirubin, direct (05/29/2025 8:34 AM EDT) Only the most recent of2 resultswithin the time period is included. ComponentValueRef RangeTest MethodAnalysis TimePerformed AtPathologist Signature Bilirubin, Direct0.10 - 0.2 mg/dL05/29/2025 9:27 AM [facility] ([facility])Specimen (Source)Anatomical Location / LateralityCollection Method / VolumeCollection TimeReceived TimeBloodVenous blood specimen / UnknownArterial Line / Ayfsvcv7805/29/2025 8:34 AM EDT1 8:59 AM EDT Narrative Authorizing ProviderResult TypeResult StatusSaint [facility] BLOOD ORDERABLESFinal ResultPerforming OrganizationAddressCity/State/ZIP CodePhone Number [facility] ([facility]) [address] [place] [address] * HBV QUANT TMA (05/16/2025 7:24 AM EDT) Only the most recent of2 resultswithin the time period is included. ComponentValueRef RangeTest MethodAnalysis TimePerformed AtPathologist Signature HBV TMA InterpNot DetectedNot Mjmgmqhv87/16/2025 3:01 PM [facility] ([facility])HBV TMA Jqxeqerzqrwr61/16/2025 3:01 PM [facility] ([facility]) Comment:Not DetectedHBV Quantitative Log10/ 3:01 PM [facility] ([facility])Comment:Not DetectedSpecimen (Source)Anatomical Location / Laterality Collection Method / VolumeCollection TimeReceived TimeBloodVenous blood specimen / UnknownVenipuncture / Hoskisw9405/16/2025 7:24 AM EDT1 8:04 AM EDT Narrative [facility] ([facility]) - 05/17/2025 3:01 PM EDT The Aptima HBV Quant assay is a real-time circulation man-mediated amplification (TMA) test which has a dynamic [...] blood products. Authorizing ProviderResult TypeResult StatusJojazmin Briseno [facility] MOLECULAR DIAGNOSTICS ORDERABLESFinal ResultPerforming OrganizationAddressCity/State/ZIP CodePhone Number [facility] ([facility]) [address] [place] [address] * HCV QUANTITATIVE TMA (05/16/2025 7:24 AM EDT) Only the most recent of2 resultswithin the time period is included. ComponentValueRef RangeTest MethodAnalysis TimePerformed AtPathologist Signature HCV TMA InterpNot DetectedNot Dcpiuqbm26/15/2025 3:27 PM [facility] ([facility])HCV Quantitative TMA05/16/2025 3:27 PM [facility] ([facility]) Comment:Not DetectedHCV Quantitative Log10 3:27 PM [facility] ([facility])Comment:Not DetectedSpecimen (Source)Anatomical Location / Laterality Collection Method / VolumeCollection TimeReceived TimeBloodVenous blood specimen / UnknownVenipuncture / Fanwadq0105/16/2025 7:24 AM EDT1 8:04 AM EDT Narrative [facility] (KATHLEEN) - 05/16/2025 3:27 PM EDT The Aptima HCV Quant Dx assay is a real-time circulation man-mediated amplification (TMA) test which has a dynamic [...] blood or blood products. Authorizing ProviderResult TypeResult StatusJordchaparro Briseno [facility] [employer] DIAGNOSTICS ORDERABLESFinal ResultPerforming OrganizationAddressCity/State/ZIP CodePhone Number [facility] ([facility]) [address] [place] [address] * HIV RNA, quantitative, TMA (05/16/2025 7:24 AM EDT) Only the most recent of2 resultswithin the time period is included. ComponentValueRef RangeTest MethodAnalysis TimePerformed AtPathologist Signature HIV-1 InterpretationNot DetectedNot Deajyrux32/21/2025 7:36 AM [facility] ([facility])HIV Quantitative RNA05/22/2025 7:36 AM [facility] ([facility]) Comment:Not DetectedHIV Quantitative RNA 05/22/2025 7:36 AM [facility] ([facility])Comment:Not DetectedSpecimen (Source)Anatomical Location / LateralityCollection Method / VolumeCollection TimeReceived TimeBloodVenous blood specimen / UnknownVenipuncture / Trtzrqv0205/16/2025 7:24 AM EDT1 8:04 AM EDT Narrative [facility] ([facility]) - 05/22/2025 7:36 AM EDT The Aptima HIV Quant assay is a real-time circulation man-mediated amplification (TMA) test which has a dynamic [...] presence of HIV-1 infection. Authorizing ProviderResult TypeResult StatusJojazmin Briseno [facility] BLOOD ORDERABLESFinal ResultPerforming OrganizationAddressCity/State/ZIP CodePhone Number [facility] ([facility]) [address] [place] [address] * (ABNORMAL) Manual Differential (05/16/2025 7:24 AM EDT)ComponentValueRef Range Test MethodAnalysis TimePerformed AtPathologist SignatureImmature Granulocytes %0.70.0 - 1.0 %05/16/2025 9:42 AM [facility] ([facility])Neutrophils Ezszhubr53.1(H)1.6 - 7.6 10*3/uL05/16/2025 9:42 AM [facility] ([facility])Lymphocytes Absolute1.11(L)1.20 - 4.00 10*3/uL05/16/2025 9:42 AM EDT [facility] ([facility])Monocytes Absolute1.06(H)0.10 - 1.00 10*3/uL 05/16/2025 9:42 AM [facility] ([facility])Eosinophils Absolute0.000.00 - 0.50 10*3/uL05/16/2025 9:42 AM [facility] ([facility])Basophils Absolute 0.020.00 - 0.20 10*3/uL05/16/2025 9:42 AM [facility] ([facility]) Neutrophils %85.9(H)40.0 - 72.0 %05/16/2025 9:42 AM [facility] ([facility])Lymphocytes %6.8(L)20.0 - 45.0 %05/16/2025 9:42 AM [facility] ([facility])Monocytes %6.55.0 - 12.0 %05/16/2025 9:42 AM [facility] ([facility])Eosinophils %0.00.0 - 6.0 %05/16/2025 9:42 AM [facility] ([facility])Basophils %0.10.0 - 1.0 %05/16/2025 9:42 AM [facility] ([facility])Immature Granulocytes Absolute0.110.00 - 0.20 10*3/uL05/16/2025 9:42 AM [facility] ([facility])Specimen (Source)Anatomical Location / LateralityCollection Method / VolumeCollection TimeReceived TimeBloodVenous blood specimen / UnknownVenipuncture / Ypnuhff5805/16/2025 7:24 AM EDT1 8:04 AM EDT Narrative Authorizing ProviderResult TypeResult StatusJordchaparro GarciaHermonOcean [facility] Hospital BLOOD ORDERABLESFinal ResultPerforming OrganizationAddressCity/State/ZIP CodePhone Number [facility] ([place]) [address] [place] [address] * Histology - tissue exam (05/11/2025 3:30 PM EDT)ComponentValueRef RangeTest MethodAnalysis TimePerformed AtPathologist SignatureCase ReportSurgical Pathology ?Case: [id number] ? Authorizing Provider: ??Abebe Tan MD ?Collected: ? 05/11/20251529 ? Ordering Location: ? [facility] Main Operating Room ?? Received: ?05/14/2025 0723 ? Pathologist: ? Nicole Womack MD ? Specimen: ?Prostate, PROSTATE CHIPS ? 05/18/2025 10:45 AM [facility] ([facility])Final DiagnosisA. Prostate, transurethral resection: - Glandular and stromal hyperplasia. - Benign urothelium with von Brunn's nests. - Acute and chronic inflammation. 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 Prostate. Received in formalin labeled Christal Suh, prostate chips , are 7 g of diaz rubbery soft tissue chips, 5 x 4 x 1 cm in aggregate. The specimen is entirely submitted in 8 cassettes. Belen Parsons, Pathologists' Funeral Home Manager 05/18/2025 10:45 AM [facility])Microscopic Description Microscopic examination performed.05/18/2025 10:45 AM [facility] ([facility])Specimen (Source)Anatomical Location / LateralityCollection Method / VolumeCollection TimeReceived TimeTissueProstate / Gwxmeqr5005/11/2025 3:30 PM EDT 05/14/2025 7:23 AM EDTComment:Pre-op diagnosis: BPH with obstruction/lower urinary tract symptoms [N40.1, N13.8] Narrative Authorizing ProviderResult TypeResult StatusAbebe FAJARDO PATHOLOGY ORDERABLESFinal ResultPerforming OrganizationAddressCity/State/ZIP CodePhone Number [facility] ([place]) [address] [place] [address] * NM AN ELECTIVE ENDOTRACHEAL AIRWAY (05/11/2025 2:30 PM EDT) Narrative Annalee Manzanares CAA - 05/11/2025 2:30 PM EDT MILENA Nava 05/11/2025 2:41 PM Airway Date/Time: 05/11/2025 2:30 PM Reason: elective Airway not difficult General Information and Staff Patient location during procedure: OR Anesthesiologist: Iam Blair MD Resident/MANAGER INVENTORY MANAGEMENT/CAA: MILENA Nava Performed: resident/MANAGER INVENTORY MANAGEMENT/MILENA Patient Condition Indications for airway management: anesthesia [...] other approaches attempted: 0 Authorizing ProviderResult TypeResult StatusAndpolo Blair MDANESTHESIA ORDERABLESFinal Result * CARDIAC EVENT MONITOR - NO CHARGES (05/02/2025 10:49 AM EDT)Anatomical Region LateralityModalityElectrocardiographySpecimen (Source)Anatomical Location / LateralityCollection Method / VolumeCollection TimeReceived Time05/02/2025 10:01 AM EDT Narrative 06/03/2025 1:53 PM EST 1 [facility] Heart Station [address] [place] [address] [phone] (fax) Event Recorder-[facility] Name: CHRISTAL SUH Study Date: 05/02/2025 10:01 AM Date of : 1955 Location: [facility] Height: Age: 69 year(s) Patient Room: 4120 [...] 21:47 day 7 Procedure Staff Reading Group: [facility] Ordering Physician: GUS SILVERIO ??Universal Grinder Operator: Edna Askew Procedure Note Dulce Jovel MD - 06/03/2025 1 [facility] Heart Station [address] [facility] [place] [address] [phone] (fax) Event [facility]order-[facility] Name: CHRISTAL SUH Study Date: 05/02/2025 10:01 AM Date of : 1955 Location: [facility] Height: Age: 69 year(s) Patient Room: 4120 [...] 21:47 day 7 Procedure Staff Reading Group: [facility] Ordering Physician: GUS SILVERIO Universal Grinder Operator: Edna Askew Authorizing ProviderResult TypeResult Toni Silverio [facility] PROCEDURESFinal Result * Gold Top (05/02/2025 3:40 AM EDT)ComponentValueRef RangeTest MethodAnalysis TimePerformed AtPathologist SignatureExtra TubeHold for add-ons.05/02/2025 7:01 AM [facility] ([place])Comment:Auto resulted.Specimen (Source) Anatomical Location / LateralityCollection Method / VolumeCollection Time Received TimeBloodVenous blood specimen / Aunahfk9505/02/2025 3:40 AM EDT 05/02/2025 5:05 AM EDT Narrative Authorizing ProviderResult TypeResult StatusJayjay FAJARDO BLOOD ORDERABLES Final ResultPerforming OrganizationAddressCity/State/ZIP CodePhone Number [facility] ([place]) [address] [place] [address] * Cystoscopy and stent removal (05/01/2025 4:49 PM EDT) Abebe Wilkes MD - 05/01/2025 4:49 PM EDT Abebe Tan MD 05/03/2025 9:24 AM Cystoscopy and [...] CFU Staphylococcus epidermidis(A) JES 05/08/2025 2:49 PM [facility] ([place]ATHLEEN)Comment: Presumptive Identification 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 Organism should be considered resistant to Clindamycin despite JES. Culture>15 CFU Pseudomonas aeruginosa(A) JES 05/08/2025 2:49 PM [facility] (BEAKER)Comment: Susceptibility sent out to [facility] on 05/08/25 Please see [id number] for susceptibility Specimen (Source)Anatomical Location / LateralityCollection Method / Volume Collection TimeReceived TimeForeign Body (Stent)Non-blood Collection / Unknown 05/01/2025 3:45 PM EDT05/01/2025 3:59 PM EDT Narrative OrganismAntibioticMethodSusceptibilityStaphylococcus epidermidisClindamycinMIC <=0.5 ug/ml: Resistant Staphylococcus epidermidisOxacillinMIC >1 ug/ml: Resistant Staphylococcus epidermidisTetracyclineMIC >8 ug/ml: Resistant Staphylococcus epidermidisVancomycinMIC 1 ug/ml: Susceptible Authorizing ProviderResult TypeResult Jalen FAJARDO MICROBIOLOGY - GENERAL ORDERABLESFinal ResultPerforming OrganizationAddressCity/State/ZIP Code Phone Number [facility] ([place]) [address] [place] [address] * Nonfermenter susceptibility (05/01/2025 12:00 PM EDT)ComponentValueRef Range Test MethodAnalysis TimePerformed AtPathologist SignatureSusceptibility, NonfermenterSEE NOTE05/12/2025 4:08 PM EDTARUP [facility] ([place])Comment: Pseudomonas aeruginosa Identification by MALDI-TOF This test was developed and its performance characteristics determined by [facility]. It has not been cleared or approved [...] 16/2 Suscept Tobramycin <=0.25 Suscept Performed By: [facility] [address] [place] [address] Viscosity Tester: Julián Wooten MD, PhD CLIA Number: [id number] Specimen (Source)Anatomical Location / LateralityCollection Method / Volume Collection TimeReceived TimeOther (Stent)Non-blood Collection / Unknown 05/01/2025 12:00 PM EDT1 12:01 PM EDT Narrative Authorizing ProviderResult TypeResult StatusJayjay Robin MDSAINT [facility] MICROBIOLOGY - GENERAL ORDERABLESFinal ResultPerforming OrganizationAddressCity/State/ZIP Code Phone Number [facility] ([facility]) [address] [place] [address] * Aerobic Organism Identification (05/01/2025 12:00 PM EDT)ComponentValueRef RangeTest MethodAnalysis TimePerformed AtPathologist SignatureOrganism Identification, AerobicSEE NOTE05/11/2025 12:05 PM EDTARUP LABORATORY ([facility]) Comment: Pseudomonas aeruginosa Identification by MALDI-TOF This test was developed and its performance characteristics determined by [facility]. It has not been cleared or approved by the U.S. Food and Drug Administration. This test was performed in a CLIA-certified laboratory and is intended for clinical purposes. Performed By: [facility] [address] [place] [address] Viscosity Tester: Julián Wooten MD, PhD CLIA Number: [id number] Specimen (Source)Anatomical Location / LateralityCollection Method / Volume Collection TimeReceived TimeOther (Stent)Non-blood Collection / Unknown 05/01/2025 12:00 PM EDT1 12:01 PM EDT Narrative Authorizing ProviderResult TypeResult Jalen Robin MDSAINT JO[facility] MICROBIOLOGY - GENERAL ORDERABLESFinal ResultPerforming OrganizationAddressty/State/ZIP Code Phone Number [facility] ([facility]) [address] [place] [address] * (ABNORMAL) POCT occult blood stool manually resulted (04/05/2025 5:12 PM EDT) ComponentValueRef RangeTest MethodAnalysis TimePerformed AtPathologist SignatureFecal Occult BloodPositiveQC Pass/FailPassedQC LOT #[id number] Expiration Date03/28Specimen (Source)Anatomical Location / LateralityCollection Method / VolumeCollection TimeReceived GxozCkshu41/10/2024 5:12 PM EDT Narrative Authorizing ProviderResult TypeResult StatusJulie St. Jesus PRESSLEYOINT OF CARE TEST ENTER/EDIT ORDERABLESFinal Result from Last 3 Months or Most Recently Relevant to Health Maintenance Additional Health Concerns InfectionOnset DateLast IndicatedC.difficile Comment:External result, treatment incomplete /OVID-19 (confirmed) Comment:Tested positive last 07/08/2025 at the [facility]. Patient is immune compromised /MDR [id number] Insurance Advance Directives * Full Code (Latest Code Status on File) Date ActivatedDate JxuseuxalokKazowzoq55/12/2025 8:11 PM07/24/2025 6:53 PM * Full Code Date ActivatedDate MxahhkofhydJbtszbhg42/28/2025 4:15 PM06/15/2025 4:51 PM * Full Code Date ActivatedDate VogvjqkvdzwSpydnlxp31/10/2025 3:47 PM10 9:11 PM * Full Code Date ActivatedDate InactivatedComments04/28/2025 5:50 PM10 1:31 PM * Full Code Date ActivatedDate InactivatedComments04/05/2025 4:59 PM04/11/2025 7:39 PM Care Teams Team MemberRelationshipSpecialtyStart DateEnd Date Abebe Stewart MD [address] [place] [address], [address] [place] [address] PCP - GeneralInternal Medicine09/21/24 Abebe Tan MD [address] [place] [phone] Consulting PhysicianUrology04/07/25
[2025-07-31 16:16] LABS: Hematocrit 26.6 % (42.0-54.0); Hemoglobin 8.5 g/dL (14.0-18.0); Mean Corpuscular HGB Conc 32.0 g/dL (29.9-35.2); Mean Corpuscular Hemoglobin 33.3 pg (25.9-34.0); Mean Corpuscular Volume 104.3 fL (80.0-94.0); Platelet Count 345 10^3/uL (150-450); Red Blood Count 2.55 10^6/uL (4.70-6.10); White Blood Count 14.3 10^3/uL (4.0-11.0)
--- NOTE | 2025-07-31 16:21 | PC.NURSE ---
ad copy writer to bedside to draw blood work from pts midline pts line fushed with saline will continue plan of care
[2025-07-31 16:31] LABS: Alanine Aminotransferase 22 U/L (16-63); Albumin Globulin Ratio 0.9; Albumin Level 2.7 g/dL (3.4-5.0); Alkaline Phosphatase 86 U/L (46-116); Anion Gap 13.1; Aspartate Amino Transferase 13 U/L (15-37); Blood Urea Nitrogen 32.0 mg/dL (7.0-18.0); Calcium 8.5 mg/dL (8.5-10.1); Carbon Dioxide 25.7 mmol/L (21.0-32.0); Chloride 108 mmol/L (98-107); Estimated GFR (African America 57 (>=60 mL/min/1.73m^2); Estimated GFR (Non-African Ame 47 (>=60 mL/min/1.73m^2); Globulin 2.9 g/dL; Glucose 187 mg/dL (74-106); Potassium 4.8 mmol/L (3.5-5.1); Sodium 142 mmol/L (136-145); Total Protein 5.6 g/dL (6.4-8.2)
[2025-07-31 16:42] LABS: Lactate/Lactic Acid 2.2 mmol/L (0.4-2.0)
[2025-07-31 16:49] LABS: Glucose Urine UA NEGATIVE (NEGATIVE)
[2025-07-31 16:57] LABS: Crystals Seen? None Seen #/HPF (None Seen)
--- NOTE | 2025-07-31 16:57 | XR_ITS ---
The [address] [address] Patient Name: CHRISTAL SUH MRN: [id number] date: 1955 Sex: M Assigned Patient Location: ED.MAIN Current Patient Location: ED.MAIN Accession/Order Number: [id number] Exam Date: 07/31/2025 16:50 Report Date: 07/31/2025 17:16 At the request of: NAYLA KAUFMAN Procedure: XR chest 2V XR chest 2V 07/31/2025 4:57 PM SIGNS AND SYMPTOMS: ^Cough, SOB, Hypoxia PROTOCOL: Frontal and lateral radiograph of the chest COMPARISON: 04/28/2025 FINDINGS: The trachea is midline. The heart and mediastinal structures are within normal limits. There is diffuse interstitial prominence. There is perihilar vascular prominence. Small bilateral pleural effusions are present. There is a calcified granuloma laterally in the right mid chest. This is unchanged. The bony thorax is intact. Degenerative changes are noted in the shoulders and thoracic spine. XR/XR chest 2V IMPRESSION: Interstitial prominence is noted with perihilar vascular prominence suspicious for congestive heart failure. This is worse when compared to the prior study. Small bilateral pleural effusions are present. Impression dictated by: Tim Cole M.D. 07/31/2025 5:16 PM Dictation Location: [place] [address] Electronically authenticated by: [id number] Y Date: 07/31/2025 17:16
[2025-07-31 16:58] LABS: Cast Seen? SEEN #/LPF (NONE SEEN); Urine Culture Indicated YES-FRMC
[2025-07-31 17:04] LABS: Basophils Abs Manual 0.00 10^3/uL (0.00-0.10); Basophils Percent Manual 0.0 % (0.2-2.0); Eosinophils Absolute Manual 0.00 10^3/uL (0.00-0.70); Eosinophils Percent Manual 0.0 % (0.9-7.0); Lymphocytes Absolute Manual 0.57 10^3/uL (1.20-3.80); Lymphocytes Percent Manual 4.0 % (20.5-60.0); Monocytes Absolute Manual 0.28 10^3/uL (0.30-0.80); Monocytes Percent Manual 2.0 % (1.7-12.0); Segmented Neut Absolute Manual 13.44 10^3/uL (1.4-6.5); Segmented Neutrophils % Manual 94.0 (43.0-75.0)
--- NOTE | 2025-07-31 17:13 | ECG_ITS ---
The [facility] Test Date: 2025-07-31 Pat Name: CHRISTAL SUH Department: Room: - Gender: Male Proposal Manager: : [id number] Requested By: [id number] Order Number: [id number] Reading MD: AMALIA HUGGINS M.D. Measurements Intervals [place] Rate: 84 P: 90 OR: 144 QRS: 82 QRSD: 78 T: 83 QT: 406 QTc: 447 Interpretive Statements 1100 Sinus rhythm 9110 normal ECG Compared to ECG 04/28/2025 08:41:20 No significant changes Electronically Signed On 07-31-2025 19:21:40 EST by AMALIA HUGGINS M.D.
[2025-07-31 18:47] LABS: Reflex Lactate? Yes
--- NOTE | 2025-07-31 20:15 | PC.NURSE ---
this patient just returned back from ct dept, and this patient voices no concerns, needs and shows no signs of distress. this patient has been updated that now we are waiting on ct results to come back
[2025-07-31 21:41] LABS: ABG PCO2 34.2 mmHg (35.0-45.0); Allen Test POSITIVE (POSITIVE); HCO3 ABG 25.6 mmol/L (22.0-26.0); Oxygen Saturation ABG 95.8 %; PO2 ABG 72.0 mmHg (80.0-100.0)
[2025-07-31 21:42] LABS: Liters per Minute 1.5; O2 Mode NASAL CANNULA; Puncture Site RR
--- NOTE | 2025-07-31 22:25 | PC.NURSE ---
this patient awake and alert sitting upright on the bed, and i told this patient we are still waiting on the dr to call back. this patient voices no concerns, needs and shows no signs of distress
[2025-08-01] VITALS (19 sets, daily range): BP systolic 179–199; BP diastolic 80–96; PULSE 78–85; TEMP 36.9; O2SAT 93–97
[2025-08-01] MEDS: FUROSEMIDE 40 MG/4 ML VIAL IVP (00:07)
[2025-08-01] MEDS: AZITHROMYCIN 500 MG in 0.9 % SODIUM CHLORIDE 250 ML 250 MG IV (00:08)
[2025-08-01] MEDS: OSELTAMIVIR PHOSPHATE 75 MG CAPSULE PO (00:08)
[2025-08-01] MEDS: ALBUMIN HUMAN 25 GM/100 ML PREMIX IV (01:19)
--- NOTE | 2025-08-01 01:20 | PC.NURSE ---
this patient updated room # will 4136 at [facility] and transport will be in about 1 hour
--- NOTE | 2025-08-01 02:43 | PC.NURSE ---
i gave this patient report to [facility] and i gave this patient's paperwork. i called [phone] to [facility] and spoke with rn and informed her of this transfer to [facility] room 4134 i called [facility] [phone] and spoke with tushar woodard with this patient report
== END 2025-08-01 02:42 | disposition short-term general hospital (02) ==
PROVIDERS: Physician Assistant; Emergency Provider Emergency Medicine; PCP Internal Medicine
DX: J10.1 Influenza due to other identified influenza virus with other respiratory manifestations (principal); R09.02 Hypoxemia; E87.70 Fluid overload, unspecified; R06.02 Shortness of breath; Z86.73 Personal history of transient ischemic attack (TIA), and cerebral infarction without residual deficits; Z94.0 Kidney transplant status; I82.622 Acute embolism and thrombosis of deep veins of left upper extremity; Z79.01 Long term (current) use of anticoagulants; Z86.16 Personal history of COVID-19; Z86.19 Personal history of other infectious and parasitic diseases; R82.998 Other abnormal findings in urine
CPT/HCPCS: 36415; 36600; 71046; 78582; 80053; 81001; 82805; 83605; 83880; 84484; 85007; 85027; 87086; 87088; 87186; 87804; 93005; 96365; 96367; 96375; 99285; A9540; A9567; J0456; J1938; P9046